=== PATIENT | female | born 1940 | race Caucasian/White ===

== ENCOUNTER 2017-07-13 08:55 | Day surgery (SDC) | payer MEDICARE, OTHER, SELFPAY ==
[2017-07-10 15:10] VITALS: BMI 28.8
[2017-07-13] VITALS (7 sets, daily range): BP systolic 102–141; BP diastolic 44–67; PULSE 57–69; RESP 16–18; TEMP 36.6–36.9; O2SAT 95–98; BMI 28.8
--- NOTE | 2017-07-13 10:25 | HMH.ANESCL ---
[facility] Anesthesia Checklist - Patient Identification Patient Identification: Arm Band, Verbal (Name & ) - Structural Data Admitted From: Home Planned Operative Procedure/s: endo Consent for Planned Operative Procedure(s) Verified: Yes Verified Documents: Surgical Consent - NPO Status Verified Time NPO: 00:00 - Additional verifications Patient : No Anesthesia Reactions: No Hx Blood Transfusions: No Blood Transfusion Reaction: No Cephalosporin Allergy: No Previous Colonoscopy: No - Cardiovascular Assessment Heart Sounds: S1 & S2 Pulse Strength: Baseline Pulse Rhythm: Regular Peripheral Edema: No - Airway Assessment C-Spine Mobility Assessed: Yes TMJ Mobility Assessed: Yes Dentition: Good Dentition - Neurological Assessment Level of Consciousness: Awake, Alert, Appropriate Hx Seizures: No Numbness or tingling in extremities: No - Anesthesia Plan Anesthesia Risk discussed: Yes Anesthesia Plan: Verified ASA Class: III Anesthesia Type: MAC [facility] Anesthesia HX I have reviewed the patient's past medical history: Yes Medical History: Reports:: Atrial Fibrillation, Hyperlipidemia, Hypertension, Lung Disease (cpap at night), Palpitations Denies:: Diabetes Mellitus Type 1, Diabetes Mellitus Type 2, Internal Pacemaker, Seizures Other Surgeries: Yes: Cardiac Surgery, Hysterectomy-Total, Plastic Surgery. No: Pacemaker Amputation: No Fractures: No *Family Hx:: Unable to obtain
--- NOTE | 2017-07-13 10:34 | P.PCN_ITS ---
[facility] Procedure Note Procedure Note:: Colonoscopy Procedure Report: Colonoscopy with cold snare polypectomy Endoscopist: Cody Quiroz II, MD Referring physician: Ferny Gentile MD Date of Procedure: June 12, 2017 Equipment: Olympus 180 variable stiffness pediatric colonoscope Sedation: MAC sedation Indication: Mrs. Skaggs is a 77-year-old female who is here for follow-up screening/surveillance colonoscopy. The patient's mother had colon cancer in her early 80s. The patient also has heterozygous hemochromatosis (H63D single mutation). The patient did have a colonoscopy and July 2007 at which time 2 polyps (tubulovillous adenoma ?1/tubular adenoma ?1) were removed. Her colonoscopy in April 2011 revealed 2 polyps (tubular adenoma ?1/hyperplastic polyp ?1) which were removed. Her last colonoscopy in March 2013 revealed a single diminutive ascending polyp (tubular adenoma ?1) which was removed. The patient does have some chronic constipation and has been on MiraLAX plus psyllium/Konsyl daily. She also takes a probiotic. She does get some intermittent bloating, abdominal discomfort and diarrhea. She reports no rectal bleeding or weight loss. Procedure: Prior to the procedure, a history and physical exam was performed, and patient' s medications and allergies were reviewed. The risks, benefits and alternatives of the sedation and procedure were discussed with the patient. All questions were answered and informed consent was obtained. The patient was brought to the procedure room. Patient identification and proposed procedure were verified by the physician and the nurse. The patient was placed in a left lateral decubitus position and the scope was passed under direct vision. Throughout the procedure, the patient's blood pressure, pulse, and oxygen saturations were monitored continuously. The colonoscopy was accomplished without difficulty. The patient tolerated the procedure well. Findings: On digital rectal examination there was normal rectal tone. There were no external hemorrhoids. The colonoscope was introduced through the anal canal to the rectum and advanced to the cecum. The ileocecal valve and appendiceal orifice were identified. The scope was advanced a short distance into the ileum which appeared grossly normal. The scope was then withdrawn into the colon. There were 7 colon polyps identified in the cecal ?3 (3-6 mm), ascending ?2 (4 and 8 mm), descending ?1 (18 mm polyp) and rectum ?1 (9-10 mm polyp). These ranged in size from 3-18 mm and were all removed via cold snare polypectomy. There were scattered diverticuli throughout the descending and sigmoid colon (LEFT colon). The rectum itself was normal. Upon retroflexion within the rectum there were grade 1 internal hemorrhoids. Impression: 1. Colonic polyps ?7 2. Left-sided diverticulosis 3. Grade 1 internal hemorrhoids Plan: I will follow-up the polyp histology. I would certainly consider a lower surveillance interval of 1-3 years based upon the polyp histology, number of polyps and size of polyps as well as her family history. I will recommend fiber bowel regimen continuation (MiraLAX plus Konsyl daily to twice daily) on a long-term daily maintenance basis.
--- NOTE | 2017-07-13 13:04 | HMH.ANESCL ---
[facility] Anesthesia Checklist - Structural Data Planned Operative Procedure/s: colonoscopy Consent for Planned Operative Procedure(s) Verified: Yes - Anesthesia Plan Anesthesia Risk discussed: Yes Anesthesia Plan: Verified ASA Class: II Anesthesia Type: MAC [facility] Anesthesia HX I have reviewed the patient's past medical history: Yes Medical History: Reports:: Atrial Fibrillation, Hyperlipidemia, Hypertension, Lung Disease (cpap at night), Palpitations Denies:: Diabetes Mellitus Type 1, Diabetes Mellitus Type 2, Internal Pacemaker, Seizures Other Medical History: Denies: Blood Transfusion Reaction Other Surgeries: Yes: Cardiac Surgery, Hysterectomy-Total, Plastic Surgery. No: Pacemaker Amputation: No Fractures: No *Family Hx:: Unable to obtain
== END 2017-07-13 11:20 | disposition home or self-care (01) ==
LOC: OUTP 08:57
PROVIDERS: Family Provider Internal Medicine; PCP Internal Medicine; Visit Provider Internal Medicine Gastroenterology
PROC: 0DJD8ZZ Inspection of Lower Intestinal Tract, Via Natural or Artificial Opening Endoscopic (ICD-10-PCS; CPT 45378; principal; 2017-07-13 10:00)
DX: Z12.11 Encounter for screening for malignant neoplasm of colon (principal); K63.5 Polyp of colon; K57.30 Diverticulosis of large intestine without perforation or abscess without bleeding; K64.0 First degree hemorrhoids
CPT/HCPCS: 45380; 88305

== ENCOUNTER 2017-11-11 13:30 | Outpatient (RCR) | payer MEDICARE, OTHER, SELFPAY | END 2017-11-11 13:31 | disposition home or self-care (01) | LOC: PT 13:30 | PROVIDERS: Family Provider Internal Medicine; PCP Internal Medicine; Visit Provider Orthopaedic Surgery | DX: Z96.651 Presence of right artificial knee joint (principal) | CPT/HCPCS: 97010; 97014; 97033; 97035; 97110; 97163; G0283 ==

== ENCOUNTER → 2017-11-17 09:59 | Outpatient (CLI) | payer MEDICARE, OTHER, SELFPAY ==
--- NOTE | 2017-11-17 10:02 | XR_ITS ---
XR chest 2V HISTORY: ITS.REASON: HTN, AFIB ORDERING PHYSICIAN: Ferny Gentile PATIENT AGE: 77 years COMPARISON: PA and lateral chest 10/08/2016 FINDINGS: The lung malcolm are well expanded and appear clear of infiltrate. There are old healed rib fractures on the right side. There is mild generalized cardio megaly without failure. There is a hazy opacity in left perihilar region and left lower lung field and there are surgical clips in left axilla and I suspect there has been previous left mastectomy with reconstruction of the left breast. There is a mild compression fracture lower thoracic spine with approximately 40% loss of height and this is a new finding not having been seen on the previous chest film. There are stable mild compression of an upper thoracic vertebrae. IMPRESSION: No acute chest pathology noted, new mild compression fracture lower thoracic spine and suggest consideration of a follow-up bone scan as metastatic disease is a consideration.
== END ==
PROVIDERS: PCP Internal Medicine; Visit Provider Internal Medicine
DX: Z01.810 Encounter for preprocedural cardiovascular examination (principal); I10 Essential (primary) hypertension; I48.0 Paroxysmal 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
CPT/HCPCS: 71046; 93005

== ENCOUNTER → 2018-03-04 15:28 | Outpatient (CLI) | payer MEDICARE, OTHER, SELFPAY | PROVIDERS: PCP Internal Medicine; Visit Provider Internal Medicine Clinical Cardiac Electrophysiology | DX: I49.3 Ventricular premature depolarization (principal) | CPT/HCPCS: 93005 ==

== ENCOUNTER → 2018-03-16 12:58 | Outpatient (POV) | payer MEDICARE, OTHER, SELFPAY | PROVIDERS: Visit Provider Dermatology | DX: Z00.00 Encounter for general adult medical examination without abnormal findings (principal) ==

== ENCOUNTER → 2018-07-20 16:53 | Outpatient (CLI) | payer MEDICARE, OTHER, SELFPAY | PROVIDERS: Visit Provider Podiatrist | DX: L60.8 Other nail disorders (principal) | CPT/HCPCS: 87102; 87206; 87220 ==

== ENCOUNTER → 2018-08-10 12:50 | Outpatient (CLI) | payer MEDICARE, OTHER, SELFPAY ==
--- NOTE | 2018-08-10 12:56 | US_ITS ---
US Kidney CLINICAL INDICATION: History of right renal cyst on previous CT scan which is unavailable for review performed at an outside institution ITS.REASON: RENAL CYST ORDERING PHYSICIAN: Chuy Jama MD PATIENT AGE: 78 years Comparison: None FINDINGS: The right kidney is not by 4 x 6 cm. No hydronephrosis. No cortical thinning. There is a 7 mm, a 9 mm and another 7 mm cyst in the upper pole the right kidney. No solid lesions evident The left kidney is 11 x 4.5 x 5.3 cm. No hydronephrosis. IMPRESSION: Small right renal cysts otherwise negative bilateral renal ultrasound
== END ==
PROVIDERS: PCP Internal Medicine; Visit Provider Urology
DX: N28.1 Cyst of kidney, acquired (principal)
CPT/HCPCS: 76770

== ENCOUNTER → 2018-08-13 10:35 | Outpatient (CLI) | payer MEDICARE, OTHER, SELFPAY ==
--- NOTE | 2018-08-13 10:38 | US_ITS ---
US Arterial Ankle Brachial Ind History: ITS.REASON: skin changes, claudication ORDERING PHYSICIAN: Livier Griffin DPM PATIENT AGE: 78 years TECHNIQUE: Segmental pressures obtained of both right and left leg. These are compared to brachial blood pressure to yield index at each level sampled including summary BEVERLEY. The data sheets from the procedure are available in PACS FINDINGS Rest study only performed today No prior studies available for comparison. Blood pressures reported are in millimeters mercury. RIGHT LEG BEVERLEY = 1.24. RIGHT LEG TBI=0.79 Brachial BP: 153 Thigh BP: 167 Calf BP: 204 Ankle PT: 190 Ankle DP : 191 Digit =121 LEFT LEG BEVERLEY = 1.21 LEFT LEG TBI= 1.03 Brachial BPD: Not performed due to prior mastectomy Thigh BP: 191 Calf BP: 185 Ankle PT:185 Ankle DP: 170 Digit = 157 Pulses and waveforms: Normal IMPRESSION: The ABIs as reported above are within normal limits. Waveforms and pulses are also unremarkable.
== END ==
PROVIDERS: PCP Internal Medicine; Visit Provider Podiatrist
DX: R09.89 Other specified symptoms and signs involving the circulatory and respiratory systems (principal)
CPT/HCPCS: 93922

== ENCOUNTER → 2019-02-01 10:51 | Outpatient (POV) | payer MEDICARE, OTHER, SELFPAY | PROVIDERS: Visit Provider Otolaryngology | DX: Z00.00 Encounter for general adult medical examination without abnormal findings (principal) ==

== ENCOUNTER 2019-03-17 09:30 | Outpatient (RCR) | payer MEDICARE, OTHER, SELFPAY | END 2019-03-17 09:35 | disposition home or self-care (01) | LOC: PT 09:30 | PROVIDERS: Visit Provider Orthopaedic Surgery | DX: M25.552 Pain in left hip (principal); Z96.642 Presence of left artificial hip joint | CPT/HCPCS: 97110; 97163; 97164 ==

== ENCOUNTER → 2019-10-18 11:13 | Outpatient (CLI) | payer MEDICARE, OTHER, SELFPAY ==
--- NOTE | 2019-10-18 11:20 | XR_ITS ---
PROCEDURE: XR MULTIPLE SPINE 6+V CLINICAL INDICATION: S/P FALL 10/14 NECK/LOW BACK PAIN Pain following COMPARISON: LSWO CT LUMBAR SPINE W/O CONTRAST from 04/06/2017 CXR2V XR chest 2V from 11/17/2017 FINDINGS: Cervical spine five views: Degenerative disc disease C2-C3 C3-C4 C4-C5 C5-C6 and C6-C7. Facet hypertrophic changes from C3 to see 7. Foraminal narrowing is present on the right at C5-C6 and on the left at C5-C6. No acute fracture or dislocation is evident. Osteoarthritic changes are present involving the C1-C2 lateral masses greater on the left. Lumbar spine: Five views prior posterior fusion with inter pedicular screws at L4 and L5. There is 1 cm anterolisthesis of L4. There is 40 percent anterior wedging of T11 which was present on prior lateral chest radiograph of 11/17/2017.. There is mild wedging of T12 with loss of height anteriorly of 10 percent which may be acute not readily apparent on previous CT scan of 04/06/2017. Degenerative disc disease is present from L1-S1. No acute lumbar fracture is apparent. There are degenerative changes of the SI joints. Left hip prosthesis is present. There is degenerative disc disease IMPRESSION: 1. Cervical spondylosis with no obvious cervical fracture. 2. Lumbar spondylosis with postsurgical change with chronic wedging of T11 3. Mild wedging of T12 not readily apparent previously Dictated by: Dannie Verma MD 10/18/2019 12:31 Electronically signed by Dannie Verma MD in [place] 10/18/2019 12:31
--- NOTE | 2019-10-18 11:29 | XR_ITS ---
PROCEDURE: XR PELVIS 1-2V CLINICAL INDICATION: S/P FALL 10/15/2019 Posttraumatic pain COMPARISON: [id number] HIP LT 2-3V W/PELVIS IF PERFOR from 03/05/2016 TECHNIQUE: XR Pelvis AP View FINDINGS: No acute fracture or dislocation. There are mild osteoarthritic changes of the right hip. There is a left hip hemiarthroplasty with the hip component in good position. The distal stem is not imaged on the exam. There is some heterotopic ossification in the greater trochanteric region. IMPRESSION: No acute findings. Dictated by: Dannie Verma MD 10/18/2019 12:32 Electronically signed by Dannie Verma MD in [place] 10/18/2019 12:32
== END ==
PROVIDERS: PCP Internal Medicine; Visit Provider Internal Medicine
DX: M54.2 Cervicalgia (principal); M54.5 Low back pain
CPT/HCPCS: 72084; 72170

== ENCOUNTER → 2020-01-18 13:46 | Outpatient (CLI) | payer MEDICARE, OTHER, SELFPAY ==
--- NOTE | 2020-01-18 13:55 | US_ITS ---
PROCEDURE: US KIDNEY CLINICAL INDICATION: R RENAL CYSTS Follow-up renal cyst COMPARISON: CT CHW CT CHEST W/ CONTRAST from 07/30/2016 US KIDNEY US Kidney from 08/10/2018 FINDINGS: The right kidney is 10.5 x 4 x 5 cm. Left kidney is 10.6 x 5 x 5 cm. There is mild cortical thinning on both sides. No solid mass or perinephric fluid collection. In the upper pole of the left kidney there is a small 7 mm cyst and a 5 mm cyst. IMPRESSION: 1. No hydronephrosis. 2. Small left renal cysts with bilateral cortical thinning Dictated by: Dannie Verma MD 01/19/2020 06:39 Dannie Verma MD in [place] 01/19/2020 06:39
== END ==
PROVIDERS: PCP Internal Medicine; Visit Provider Urology
DX: N28.1 Cyst of kidney, acquired (principal)
CPT/HCPCS: 76770

== ENCOUNTER 2020-02-09 20:22 | Emergency (ER) | payer MEDICARE, OTHER, SELFPAY ==
[2020-02-09 20:24] VITALS: BP 169/86; PULSE 85; RESP 16; TEMP 36.8; O2SAT 95; BMI 29.7
--- NOTE | 2020-02-09 20:47 | CT_ITS ---
PROCEDURE: CT HEAD/BRAIN WO CON CLINICAL INDICATION: head injury Head injury with headache/pain, contusion, abrasion or hematoma COMPARISON: CT HDWO CT HEAD W/O CONTRAST from 04/06/2017 TECHNIQUE: Axial images obtained. All CT scans at the facility use one or more dose reduction, viz: automated exposure control, ma/kV adjustment per patient size (including targeted exams where dose is matched to indication, i.e. head), or iterative reconstruction technique. FINDINGS: No midline shift, mass effect, intracranial hemorrhage, hydrocephalus, or extra-axial fluid collection is evident. There is mild bifrontal atrophy. The calvarium has an unremarkable appearance. No mastoid effusion. No sinus air-fluid level. Skin bri are present at the vertex. IMPRESSION: No acute intracranial finding Dictated by: Dannie Verma MD 02/10/2020 05:28 Dannie Verma MD in [facility] 02/10/2020 05:28
--- NOTE | 2020-02-09 20:47 | CT_ITS ---
PROCEDURE: CT CERVICAL SPINE WO CON CLINICAL INDICATION: head injury Neck injury with pain, contusion/abrasion or hematoma, cervical sprain/strain the COMPARISON: CR XR MULTIPLE SPINE 6+V from 10/18/2019 TECHNIQUE: Axial images obtained with sagittal and coronal reformats. All CT scans at the facility use one or more dose reduction, viz: automated exposure control, ma/kV adjustment per patient size (including targeted exams where dose is matched to indication, i.e. head), or iterative reconstruction technique. Axial spiral CT scanning performed of the cervical spine beginning at the base of the skull and continuing to the upper T-spine. 3-D multiplanar reconstruction with 3-D manipulation of volumetric data set in image rendering was completed by the radiologist and/or technologist with the supervision of the radiologist on independent workstation. FINDINGS: There is normal alignment. No acute fracture or dislocation is evident. Hypertrophic changes are present anteriorly on the left at the C1-C2 facet junction. Subchondral cystic changes are present involving the base of the odontoid on the left. The there is multilevel degenerative disc disease from C2-C7. C2-C3: Degenerative disc disease. C3-C4: 3 mm anterolisthesis of C3 with endplate hypertrophy and right-sided facet hypertrophy with mild right lateral recess and foraminal narrowing. C4-C5: 2 mm retrolisthesis of C4 with degenerative disc disease. C5-C6: Degenerate disc disease with endplate hypertrophy facet and uncovertebral hypertrophy with canal stenosis of 9 mm with bilateral foraminal narrowing. C6-C7. Endplate hypertrophic change. Mild left-sided uncovertebral and foraminal narrowing. No acute finding in the lung apices. IMPRESSION: 1. No acute fracture. 2. Multilevel cervical spondylosis with canal stenosis as detailed above. 3. Chronic hypertrophic change involving the C1-C2 junction anteriorly on the left Dictated by: Dannie Verma MD 02/10/2020 05:37 Dannie Verma MD in [place] 02/10/2020 05:37
--- NOTE | 2020-02-09 21:06 | HMH.EDFALL ---
ED Disposition Clinical Impression: Concussion with loss of consciousness Qualifiers: Encounter type: initial encounter Qualified Code(s): S06.0X9A - Concussion with loss of consciousness of unspecified duration, initial encounter Scalp laceration Qualifiers: Encounter type: initial encounter Qualified Code(s): S01.01XA - Laceration without foreign body of scalp, initial encounter Disposition: Home, Self-Care Condition on Discharge: Good Instructions: DI for Concussion Additional Instructions: bri out 10 days Referrals: Ferny Gentile [Primary Care Provider] - - Critical Care Critical Care Time: No Attestation: On 02/09/20, the high probability of a clinically significant, sudden or life threatening deterioration of the following system(s) required my full and direct attention, intervention and personal management. The time I documented below is in addition to time spent performing reported procedures but includes the following listed in this critical care notation. Medical Decision Making - Medical Records Medical records reviewed: Yes: I reviewed the patient's medical records. - Torsten Inquiry Pt receiving controlled substance: No Vital Signs: 02/09/20 20:24 Temperature 98.3 F Temperature Source Oral Pulse Rate [Left Radial] 85 Respiratory Rate 16 Blood Pressure [Right Arm] 169/86 H Blood Pressure Mean [Right Arm] 113 Blood Pressure Source [Right Arm] Automatic Cuff Blood Pressure Position [Right Arm] Sitting 02 Sat by Pulse Oximetry 95 Oxygen Delivery Method Room Air Orders (Tests/Meds): ED MEDICATIONS Discontinued Medications Generic Name Dose Route Start Last Admin Trade Name Freq PRN Reason Stop Dose Admin Tetanus/Diphtheria Toxoids 0.5 ml 02/09/20 21:07 02/09/20 21:37 Tetanus-Diphth Toxoid, Adult 0.5ml Syr IM 02/09/20 21:08 Not Given .ONCE ONE ORDERS Category Date Time Status CT cervical spine wo con Stat Cat Scan 02/09/20 20:[address] head/brain wo con Stat Cat Scan 02/09/20 20:47 Taken - CT Data CT Scan: Head, C-Spine Time Received: 21:[address] Reviewed: Yes: I have viewed the radiologist's interpretation Preliminary Findings: No Fracture Seen Fall HPI - General Chief Complaint: Head Injury Stated Complaint: AO 1008 20:00 fell hit head Lac Time Seen by Provider: 02/09/20 20:35 Mode of Arrival: Ambulatory Source of Information: Patient, Relative, Medical Record Limitations: No Limitations Description of Symptoms (Recalled from ER Triage Doc. by RN): pt stated she was walking in her bedroom when she lost her balance and fell and believes the lamp fell on her head. pt has a LAC to the top of her head. pt sated shes on warfarin. pt denies any LOC or change in mental status. - History of Present Illness HPI Narrative: trip type fall with scalp lac - no loc and no focal changes neuro - pt on coumadin - inr 2.6 today complaint: fall Onset (ago): hour(s) Fall from: walking Fall witnessed: no Place fall occurred: home Loss of consciousness: none Prolonged down time: no Context: tripped/slipped Location of injury: head, neck Severity: moderate Associated symptoms (after fall): denies - Related Data Home Medications Medication Instructions Recorded Confirmed Cetirizine HCl [Zyrtec] 10 mg PO DAILY 07/10/17 01/13/20 Citalopram Hydrobromide [Celexa 10 mg PO DAILY 07/10/17 01/13/20 10mg Tablet] Ezetimibe [Zetia] 10 mg PO DAILY 07/10/17 01/13/20 Flecainide Acetate 100 mg PO DAILY 07/10/17 01/13/20 Glucosam/Milad-Msm1/C/Mehran/Bosw 1 each PO DAILY 07/10/17 01/13/20 [Osteo Bi-Flex Caplet] Ipratropium [place] [Ipratropium 1 spray NS DAILY 07/10/17 01/13/20 [place] 0.042mg/act NS] Lactobacillus Acidophilus 1 each PO DAILY 07/10/17 01/13/20 [Probiotic] Magnesium 200 mg PO DAILY 07/10/17 01/13/20 Metoprolol Succinate 25 mg PO DAILY 07/10/17 01/13/20 Omeprazole [Omeprazole 20mg Tab] 20 mg PO DAILY 07/10/17 01/13/20 Warfarin Sodium 5
[2020-02-09 21:54] VITALS: BP 163/84; PULSE 74; RESP 18; O2SAT 98
[2020-02-09 22:17] VITALS: BP 182/96; PULSE 79; RESP 16; TEMP 36.7; O2SAT 98
== END 2020-02-09 22:20 | disposition home or self-care (01) ==
PROVIDERS: Emergency Provider Emergency Medicine; PCP Internal Medicine
DX: S01.01XA Laceration without foreign body of scalp, initial encounter (principal); S06.0X9A Concussion with loss of consciousness of unspecified duration, initial encounter; W01.198A Fall on same level from slipping, tripping and stumbling with subsequent striking against other object, initial encounter; Y92.013 Bedroom of single-family (private) house as the place of occurrence of the external cause; I48.20 Chronic 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, unspecified; I10 Essential (primary) hypertension; E78.5 Hyperlipidemia, unspecified; Z95.0 Presence of cardiac pacemaker; Z23 Encounter for immunization; Z79.899 Other long term (current) drug therapy; Z88.2 Allergy status to sulfonamides; Z88.5 Allergy status to narcotic agent; Z88.8 Allergy status to other drugs, medicaments and biological substances
CPT/HCPCS: 12001; 70450; 72125; 90714; 99283

== ENCOUNTER → 2020-10-03 16:55 | Outpatient (CLI) | payer MEDICARE, OTHER, SELFPAY ==
--- NOTE | 2020-10-03 17:00 | XR_ITS ---
PROCEDURE: XR CHEST 2V CLINICAL HISTORY: Chest pain COMPARISON: CR CXR2 CHEST-AP VIEW ONLY from 07/23/[address] CHEST W/ CONTRAST from 07/30/2016 CR CXR CHEST(2 VIEWS-NOT PORTABLE) from 10/08/2016 CR CXR2V XR chest 2V from 11/17/2017 FINDINGS: Mild cardiomegaly without failure. 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 There are multiple old right-sided rib fractures with pleural thickening along the right lower hemithorax laterally. There has been prior kyphoplasty at T12 with wedge compression changes. Wedge compression changes are also present at T11 and T6 which appear stable. No lobar consolidation or collapse. Atelectatic changes are present in the right middle lobe which appear new. No evidence of pneumothorax. Surgical clips are present in the left axilla. IMPRESSION: Chronic right-sided rib fractures with pleural parenchymal changes in the right lower lobe which are chronic. There are some atelectatic changes in the right middle lobe which appear new. Dictated by: Dannie Verma MD 10/03/2020 18:14 Dannie Verma MD in [place] 10/03/2020 18:14
== END ==
PROVIDERS: PCP Internal Medicine; Visit Provider Internal Medicine
DX: R07.9 Chest pain, unspecified (principal); W19.XXXA Unspecified fall, initial encounter
CPT/HCPCS: 71046

== ENCOUNTER → 2020-11-13 11:25 | Outpatient (POV) | payer MEDICARE, OTHER, SELFPAY | PROVIDERS: Visit Provider Dermatology | DX: Z00.00 Encounter for general adult medical examination without abnormal findings (principal) ==

== ENCOUNTER 2021-01-29 13:50 | Outpatient (RCR) | payer MEDICARE, OTHER, SELFPAY ==
--- NOTE | 2021-01-29 14:55 | HMH.SLDYSPHA ---
Speech & Language Evaluation Speech/Language Dysphagia Evaluation Start: 01/29/21 14:46 Freq: ONCE Status: Active Protocol: Document 01/29/21 14:46 SONYA (Rec: 01/29/21 14:55 SONYA [id number]) Dysphagia Assess/Goals/Plan Assessment Date of Evaluation: 01/29/21 Evaluation Type Initial Certification Assessment/Problems Dysphagia Does Patient Qualify for Service No Qualify/Failure Comment Patient showed no signs of dysphagia, however she would qualify for voice therapy once cleared of pathologies from ENT. Recommendations PHYSICIAN CERTIFICATION: The specified therapy services are required, authorized, and reviewed every 30 days. Diet Recommendations Normal Liquid Type Recommendations Normal/Thin SL Swallow Guidelines Standard Aspiration Prec. Dysphagia Swallow Precautions/Strategies Sitting Upright (90 deg),Small Bites and Sips,Alternate Liquids/Solids Plan Pt/Guardian verbally ack understanding Yes of dx/prognosis/goals G -code Required No General Information General Current Food Consistancy Regular,Thin Liquids Dentition Good Dentition Oxygen Status Room Air Facial Symmetry Symmetrical Patient Orientation Person,Place,Time,Situation Ability to Follow Directions Excellent Communication Ability No Impairment Voice Voice Quality Breathy,Weak,Loss of Voice Voice Pitch Mildly High Voice Loudness Moderately Soft/Quiet Dysphagia:Food Presentation Evaluation Food Type Pureed,Mechanical Soft,Regular ,Liquid,Pudding Dysphagia Evaluation Summary Ms. Skaggs reports that she has difficulty with coughing throughout her day. It is not associated with eating she reports. She was given the following consistencies: thins via straw and open cup, pudding, pureed, mechanical soft, and regular. No overt signs or symptoms of dysphagia were noted. She would benefit from a laryngoscopy to rule out pathologies related to her cough and to her overall vocal quality. She may benefit from speech services for voice therapy pending
== END 2021-01-29 13:55 | disposition home or self-care (01) ==
LOC: ST 13:50
PROVIDERS: PCP Internal Medicine; Visit Provider Otolaryngology
DX: R13.10 Dysphagia, unspecified (principal)
CPT/HCPCS: 92610

== ENCOUNTER → 2021-01-31 09:11 | Outpatient (CLI) | payer MEDICARE, OTHER, SELFPAY ==
--- NOTE | 2021-01-31 09:14 | US_ITS ---
PROCEDURE: US THYROID CLINICAL INDICATION: PAIN IN THROAT COMPARISON: No exams were available for comparison FINDINGS: Right lobe: 3.7 x 1.2 x 1.8 cm. 3 mm hypoechoic nodule lower pole well-circumscribed. 9 mm spongiform appearing nodule lower pole well-circumscribed. Left lobe: 4.2 x 1.2 x 1.6 cm. 9 mm isoechoic nodule with decreased echogenicity peripherally present in the mid polar region well-circumscribed. 6 mm spongiform nodule mid polar region. 7 mm hypoechoic solid appearing nodule lower pole well-circumscribed wider than tall. 4 mm hypoechoic nodule lower pole. Isthmus: Unremarkable Additional findings: IMPRESSION: Bilateral thyroid nodules most of which are TR level 2. 7 mm hypoechoic nodule lower pole on the left TR level 3. Twelve month follow-up recommended. Dictated by: Dannie Verma MD 01/31/2021 14:31 Dannie Verma MD in [place] 01/31/2021 14:31
== END ==
PROVIDERS: PCP Internal Medicine; Visit Provider Otolaryngology
DX: R07.0 Pain in throat (principal)
CPT/HCPCS: 76536

== ENCOUNTER → 2021-02-13 14:09 | Outpatient (CLI) | payer MEDICARE, OTHER, SELFPAY ==
[2021-02-13 14:35] LABS: Basophils # 0.1 K/mm3 (0-0.2); Basophils % 0.7 % (0.1-2.0); Eosinophils # 0.1 K/mm3 (0.0-0.4); Eosinophils % 1.2 % (0.1-12.0); Hematocrit 41.2 % (37.0-47.0); Hemoglobin 13.4 g/dL (12.2-16.2); Lymphocytes # 1.6 K/mm3 (0.7-4.5); Lymphocytes % 23.2 % (10-50); Mean Corpuscular HGB Conc 32.4 g/dL (31.8-35.4); Mean Corpuscular Volume 95.7 fl (81-99); Mean Platelet Volume 8.7 fl (7.4-10.4); Monocytes # 1.4 K/mm3 (0.1-1.0); Monocytes % 20.5 % (1.7-9.3); Neutrophils # 3.7 K/mm3 (1.8-7.8); Neutrophils % 54.4 % (37.0-80.0); Platelet Count 264 K/mm3 (142-424); Red Blood Count 4.31 M/mm3 (4.20-5.40); Red Cell Distribution Width 13.5 % (11.5-17.5); White Blood Count 6.9 K/mm3 (4.8-10.8)
[2021-02-13 15:20] LABS: MANUAL DIFFERENTIAL MANUAL DIFFERENTIAL (MANUAL DIFF)
[2021-02-13 19:35] LABS: Alanine Aminotransferase 18 U/L (12-78); Albumin Level 3.8 g/dl (3.5-5.0); Albumin/Globulin Ratio 1.5 (1.1-1.8); Alkaline Phosphatase 81 U/L (38-126); Anion Gap 14.3 mEq/L (5-15); Aspartate Amino Transferase 26 U/L (14-36); Bilirubin,Total 0.3 mg/dl (0.2-1.3); Blood Urea Nitrogen 14 mg/dl (7-17); Calcium 9.2 mg/dl (8.4-10.2); Carbon Dioxide 23 mmol/L (22.0-30.0); Chloride 107 mmol/L (98-107); Chol/HDL Ratio 5.4 (1-3.5); Cholesterol 215 mg/dl (140-200); Estimated Glomerular Filt Rate 69 ml/min (>60); GFR (African American) 84 ML/MIN (>60); Globulin 2.6 g/dL (1.3-3.2); Glucose 89 mg/dl (74-100); HDL Cholesterol 40 mg/dl (40-60); Potassium 4.3 mmoL/L (3.5-5.1); Sodium 140 mmol/L (136-145); Total Protein,Serum 6.4 g/dl (6.3-8.2); Triglycerides 268 mg/dl (30-150); VLDL Cholesterol 54 mg/dL (0-40)
[2021-02-13 19:46] LABS: Direct LDL Cholesterol 123.16 mg/dL (100-129)
[2021-02-13 22:14] LABS: Lymphocytes % 11 % (10-50); Monocytes % 10 % (2-9); Neutrophils % 79 % (42-76); Total Cells Counted 100
[2021-02-13 22:15] LABS: Anisocytosis 1+; Hypochromasia 1+; Platelet Estimate Normal
== END ==
PROVIDERS: Visit Provider Internal Medicine
DX: I10 Essential (primary) hypertension (principal); I49.3 Ventricular premature depolarization; I48.0 Paroxysmal 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; E78.5 Hyperlipidemia, unspecified; M15.0 Primary generalized (osteo)arthritis
CPT/HCPCS: 80053; 80061; 80162; 85007; 85025

== ENCOUNTER → 2021-05-31 12:22 | Outpatient (CLI) | payer MEDICARE, OTHER, SELFPAY ==
[2021-06-01 15:29] LABS: Covid-19 Nasal PCR Sendout Lex NOT DETECTED
== END ==
PROVIDERS: Visit Provider Nurse Practitioner
DX: Z20.822 Contact with and (suspected) exposure to COVID-19 (principal)
CPT/HCPCS: C9803; U0004; U0005

== ENCOUNTER → 2021-08-14 13:48 | Outpatient (CLI) | payer MEDICARE, OTHER, SELFPAY ==
[2021-08-14 14:16] LABS: Basophils # 0.2 K/mm3 (0-0.2); Basophils % 2.3 % (0.1-2.0); Eosinophils # 0.1 K/mm3 (0.0-0.4); Eosinophils % 1.7 % (0.1-12.0); Hematocrit 43.1 % (37.0-47.0); Hemoglobin 14.3 g/dL (12.2-16.2); Lymphocytes # 1.5 K/mm3 (0.7-4.5); Lymphocytes % 22.1 % (10-50); Mean Corpuscular HGB Conc 33.2 g/dL (31.8-35.4); Mean Corpuscular Hemoglobin 31.7 pg (27.0-31.2); Mean Corpuscular Volume 95.5 fl (81-99); Mean Platelet Volume 9.7 fl (7.4-10.4); Monocytes # 1.7 K/mm3 (0.1-1.0); Monocytes % 24.4 % (1.7-9.3); Neutrophils # 3.5 K/mm3 (1.8-7.8); Neutrophils % 49.5 % (37.0-80.0); Platelet Count 270 K/mm3 (142-424); Red Blood Count 4.51 M/mm3 (4.20-5.40); Red Cell Distribution Width 13.6 % (11.5-17.5)
[2021-08-14 14:19] LABS: MANUAL DIFFERENTIAL MANUAL DIFFERENTIAL (MANUAL DIFF)
[2021-08-14 14:33] LABS: Alanine Aminotransferase 25 U/L (12-78); Albumin Level 4.1 g/dl (3.5-5.0); Albumin/Globulin Ratio 1.8 (1.1-1.8); Alkaline Phosphatase 76 U/L (38-126); Anion Gap 13.2 mEq/L (5-15); Aspartate Amino Transferase 27 U/L (14-36); Bilirubin,Total 0.6 mg/dl (0.2-1.3); Blood Urea Nitrogen 15 mg/dl (7-17); Calcium 8.9 mg/dl (8.4-10.2); Carbon Dioxide 24 mmol/L (22.0-30.0); Chloride 105 mmol/L (98-107); Chol/HDL Ratio 6.6 (1-3.5); Cholesterol 237 mg/dl (140-200); Estimated Glomerular Filt Rate 53 ml/min (>60); GFR (African American) 65 ML/MIN (>60); Globulin 2.3 g/dL (1.3-3.2); Glucose 92 mg/dl (74-100); HDL Cholesterol 36 mg/dl (40-60); Potassium 4.2 mmoL/L (3.5-5.1); Sodium 138 mmol/L (136-145); Total Protein,Serum 6.4 g/dl (6.3-8.2); Triglycerides 301 mg/dl (30-150); VLDL Cholesterol 60 mg/dL (0-40)
[2021-08-14 15:13] LABS: Lymphocytes % 31 % (10-50); Monocytes % 25 % (2-9); Neutrophils % 44 % (42-76); Platelet Estimate Normal; RBC Morphology Normal; Total Cells Counted 100
== END ==
PROVIDERS: PCP Internal Medicine; Visit Provider Internal Medicine
DX: I48.0 Paroxysmal 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 (principal); I49.1 Atrial premature depolarization; I10 Essential (primary) hypertension; E78.5 Hyperlipidemia, unspecified
CPT/HCPCS: 80053; 80061; 85007; 85025

== ENCOUNTER → 2021-10-10 11:45 | Outpatient (CLI) | payer MEDICARE, OTHER, SELFPAY ==
--- NOTE | 2021-10-10 11:58 | ECG_ITS ---
APPROVED REPORT Exam: Resting ECG HR:72 bpm ECG Measurements Heart Rate 72 AXES IL 247 P 46 QRSd 158 QRS -35 QT 423 T 85 QTc 447 Conclusion SINUS RHYTHM WITH FIRST DEGREE AV BLOCK POSSIBLE LEFT ATRIAL ENLARGEMENT [-0.1mV P-WAVE IN V1/V2] LEFT AXIS DEVIATION [QRS AXIS < -30] LEFT BUNDLE BRANCH BLOCK [120+ ms QRS DURATION, 80+ ms Q/S IN V1/V2, 85+ ms R IN I/aVL/V5/V6] ABNORMAL ECG INTERPRETATION BASED ON A DEFAULT AGE OF 40 YEARS UNCONFIRMED REPORT Electronically signed by : Savage Phillips MD 10/10/2021 21:17:03
== END ==
PROVIDERS: PCP Internal Medicine; Visit Provider Internal Medicine Clinical Cardiac Electrophysiology
DX: I48.0 Paroxysmal 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 (principal)
CPT/HCPCS: 93005

== ENCOUNTER → 2021-12-02 11:32 | Outpatient (CLI) | payer MEDICARE, OTHER, SELFPAY ==
[2021-12-02 12:15] LABS: Coronavirus 19, PCR Not Detected (NotDetected); Influenza A, PCR Not Detected (NotDetected); Influenza B, PCR Not Detected (NotDetected)
[2021-12-02 12:23] LABS: Basophils # 0.1 K/mm3 (0-0.2); Basophils % 1.6 % (0.1-2.0); Eosinophils # 0.1 K/mm3 (0.0-0.4); Eosinophils % 1.7 % (0.1-12.0); Hematocrit 40.1 % (37.0-47.0); Hemoglobin 13.1 g/dL (12.2-16.2); Lymphocytes # 1.5 K/mm3 (0.7-4.5); Lymphocytes % 21.4 % (10-50); Mean Corpuscular HGB Conc 32.7 g/dL (31.8-35.4); Mean Corpuscular Hemoglobin 30.7 pg (27.0-31.2); Mean Platelet Volume 7.9 fl (7.4-10.4); Monocytes # 1.7 K/mm3 (0.1-1.0); Monocytes % 23.8 % (1.7-9.3); Neutrophils # 3.6 K/mm3 (1.8-7.8); Neutrophils % 51.5 % (37.0-80.0); Platelet Count 270 K/mm3 (142-424); Red Blood Count 4.27 M/mm3 (4.20-5.40); Red Cell Distribution Width 13.3 % (11.5-17.5); White Blood Count 6.9 K/mm3 (4.8-10.8)
[2021-12-02 12:26] LABS: MANUAL DIFFERENTIAL MANUAL DIFFERENTIAL (MANUAL DIFF)
[2021-12-02 13:12] LABS: Eosinophils % 1 % (0-3); Lymphocytes % 23 % (10-50); Monocytes % 22 % (2-9); Neutrophils % 54 % (42-76); Platelet Estimate Normal; RBC Morphology Normal; Total Cells Counted 100
[2021-12-02 13:20] LABS: Alanine Aminotransferase 13 U/L (12-78); Albumin Level 3.8 g/dl (3.5-5.0); Albumin/Globulin Ratio 1.5 (1.1-1.8); Alkaline Phosphatase 99 U/L (38-126); Amylase 48 U/L (30-110); Anion Gap 12.8 mEq/L (5-15); Aspartate Amino Transferase 20 U/L (14-36); Bilirubin,Total < 0.1 mg/dl (0.2-1.3); Blood Urea Nitrogen 16 mg/dl (7-17); Calcium 9.1 mg/dl (8.4-10.2); Carbon Dioxide 25 mmol/L (22.0-30.0); Chloride 104 mmol/L (98-107); Estimated Glomerular Filt Rate 53 ml/min (>60); GFR (African American) 65 ML/MIN (>60); Globulin 2.6 g/dL (1.3-3.2); Glucose 100 mg/dl (74-100); Potassium 4.8 mmoL/L (3.5-5.1); Sodium 137 mmol/L (136-145); Total Protein,Serum 6.4 g/dl (6.3-8.2)
== END ==
PROVIDERS: PCP Internal Medicine; Visit Provider Internal Medicine
DX: Z20.822 Contact with and (suspected) exposure to COVID-19 (principal)
CPT/HCPCS: 36415; 80053; 82150; 85007; 85025; C9803; U0003; U0005

== ENCOUNTER → 2021-12-04 10:56 | Outpatient (CLI) | payer MEDICARE, OTHER, SELFPAY ==
--- NOTE | 2021-12-04 11:12 | CT_ITS ---
FINAL REPORT TECHNIQUE: Axial CT images were performed from the lung bases through the pubic symphysis. Coronal reformats were submitted and reviewed. This study was performed with techniques to keep radiation doses as low as reasonably achievable (ALARA). Individualized dose reduction techniques using automated exposure control or adjustment of mA and/or kV according to the patient's size were employed. CLINICAL HISTORY: EPIGASTRIC PAIN; FEVER FINDINGS: Abdomen: There is mild scarring in the lung bases. There is postoperative change in the left anterior chest wall. A small pericardial effusion is present. There has been cholecystectomy. The liver, spleen and pancreas are unremarkable. There are no adrenal masses. There are several small right renal masses measuring up to 12 mm a cannot be accurately characterized. There is no nephrolithiasis. There is no hydronephrosis. There is mild vascular calcification. Pelvis: Postoperative changes in the left hip cause streak artifact. There has been hysterectomy. There is descending and sigmoid colon diverticulosis. There is mild stranding adjacent to the distal sigmoid colon worrisome for mild diverticulitis. There is no abscess, bowel obstruction, or pneumoperitoneum. The urinary bladder is unremarkable. There are degenerative and postoperative changes involving the spine. There are T11 and T12 compression fractures. IMPRESSION: Findings worrisome for mild uncomplicated distal sigmoid diverticulitis. Several small right renal masses diet cannot be accurately characterized. Reviewed, Interpreted and Dictated by Shady Frank III, MD Transcribed by Sharif Grider Authenticated and [facility]
== END ==
PROVIDERS: PCP Internal Medicine; Visit Provider Internal Medicine
DX: R10.13 Epigastric pain (principal); R50.9 Fever, unspecified
CPT/HCPCS: 74176

== ENCOUNTER → 2022-02-19 13:28 | Outpatient (CLI) | payer MEDICARE, OTHER, SELFPAY ==
[2022-02-19 15:19] LABS: Alanine Aminotransferase 31 U/L (12-78); Albumin Level 3.9 g/dl (3.5-5.0); Albumin/Globulin Ratio 1.6 (1.1-1.8); Alkaline Phosphatase 101 U/L (38-126); Anion Gap 16.3 mEq/L (5-15); Aspartate Amino Transferase 31 U/L (14-36); Bilirubin,Total 0.3 mg/dl (0.2-1.3); Blood Urea Nitrogen 18 mg/dl (7-17); Calcium 8.8 mg/dl (8.4-10.2); Carbon Dioxide 25 mmol/L (22.0-30.0); Chloride 102 mmol/L (98-107); Chol/HDL Ratio 6.1 (1-3.5); Cholesterol 232 mg/dl (140-200); Estimated Glomerular Filt Rate 48 ml/min (>60); GFR (African American) 58 ML/MIN (>60); Globulin 2.4 g/dL (1.3-3.2); Glucose 83 mg/dl (74-100); HDL Cholesterol 38 mg/dl (40-60); Potassium 4.3 mmoL/L (3.5-5.1); Sodium 139 mmol/L (136-145); Total Protein,Serum 6.3 g/dl (6.3-8.2); Triglycerides 285 mg/dl (30-150); VLDL Cholesterol 57 mg/dL (0-40)
[2022-02-19 15:36] LABS: Direct LDL Cholesterol 130.56 mg/dL (100-129)
== END ==
PROVIDERS: PCP Internal Medicine; Visit Provider Internal Medicine
DX: I48.0 Paroxysmal 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 (principal); I10 Essential (primary) hypertension; E78.5 Hyperlipidemia, unspecified
CPT/HCPCS: 80053; 80061

== ENCOUNTER 2022-03-18 12:53 | Outpatient (CLI) | payer MEDICARE, OTHER, SELFPAY ==
[2022-03-18 13:15] VITALS: BP 118/64; PULSE 84; RESP 20; TEMP 36.3; O2SAT 95
[2022-03-18 13:41] VITALS: BP 120/65; PULSE 82; RESP 20; TEMP 36.7; O2SAT 95
== END 2022-03-18 13:35 | disposition home or self-care (01) ==
LOC: INF 12:54
PROVIDERS: PCP Internal Medicine; Visit Provider Internal Medicine
DX: E78.5 Hyperlipidemia, unspecified (principal)
CPT/HCPCS: 96372; J1306

== ENCOUNTER → 2022-03-25 14:21 | Outpatient (CLI) | payer MEDICARE, OTHER, SELFPAY ==
--- NOTE | 2022-03-25 14:26 | XR_ITS ---
FINAL REPORT CLINICAL HISTORY: PAIN, SWELLING FINDINGS: 3 views of the right wrist were obtained. There is no acute fracture or dislocation. There are mild and moderate degenerative changes greatest at the 1st CMC and triscaphe joints. There are soft tissue calcifications including in the region of the triangular fibrocartilage. IMPRESSION: Mild and moderate degenerative changes. Reviewed, Interpreted and Dictated by Shady Frank III, MD Transcribed by Sharif Grider Authenticated and [facility]
--- NOTE | 2022-03-25 14:26 | XR_ITS ---
FINAL REPORT CLINICAL HISTORY: PAIN, SWELLING FINDINGS: 3 views of the right hand were obtained. There is no acute fracture or dislocation. There are mild and moderate degenerative changes greatest at the 2nd and 3rd distal interphalangeal joints and the 3rd proximal interphalangeal joint. There is no soft tissue abnormality. IMPRESSION: Mild and moderate degenerative changes. Reviewed, Interpreted and Dictated by Shady Frank III, MD Transcribed by Sharif Grider Authenticated and [facility]
== END ==
PROVIDERS: PCP Internal Medicine; Visit Provider Internal Medicine
DX: M25.531 Pain in right wrist (principal); M79.641 Pain in right hand
CPT/HCPCS: 73110; 73130

== ENCOUNTER → 2022-05-02 10:49 | Outpatient (CLI) | payer MEDICARE, OTHER, SELFPAY ==
--- NOTE | 2022-05-02 10:57 | XR_ITS ---
FINAL REPORT CLINICAL HISTORY: COUGH,SOA COMPARISON: 10/03/2020 FINDINGS: TWO-VIEW CHEST There is cardiomegaly. Left subclavian pacer is identified. There is postoperative change in the left axilla. The mediastinum is normal. The lungs are clear. There is no pneumothorax. There are chronic right lateral rib fractures with pleural thickening, stable from prior. The patient is status post kyphoplasty in the lower thoracic spine. IMPRESSION: No acute cardiopulmonary process. Reviewed, Interpreted and Dictated by Shady Frank III, MD Transcribed by Angelica Hammonds Authenticated and [facility]
== END ==
PROVIDERS: PCP Internal Medicine; Visit Provider Internal Medicine
DX: R06.02 Shortness of breath (principal); R05.1 Acute cough
CPT/HCPCS: 71046

== ENCOUNTER → 2022-05-09 16:55 | Outpatient (CLI) | payer MEDICARE, OTHER, SELFPAY | PROVIDERS: PCP Internal Medicine; Visit Provider Internal Medicine | DX: N39.0 Urinary tract infection, site not specified (principal); B96.29 Other Escherichia coli [E. coli] as the cause of diseases classified elsewhere | CPT/HCPCS: 87086; 87088; 87186 ==

== ENCOUNTER → 2022-05-13 12:26 | Outpatient (CLI) | payer MEDICARE, OTHER, SELFPAY ==
[2022-05-13 14:14] LABS: INR 1.86 (0.9-1.1); Prothrombin Time 19.4 seconds (10.1-12.5)
[2022-05-13 14:53] LABS: Chloride 96 mmol/L (98-107); Sodium 134 mmol/L (136-145)
[2022-05-13 14:54] LABS: Potassium 4.5 mmoL/L (3.5-5.1)
[2022-05-13 14:56] LABS: Alanine Aminotransferase 16 U/L (12-78); Albumin Level 3.8 g/dl (3.5-5.0); Albumin/Globulin Ratio 1.5 (1.1-1.8); Alkaline Phosphatase 84 U/L (38-126); Anion Gap 15.5 mEq/L (5-15); Aspartate Amino Transferase 24 U/L (14-36); Bilirubin,Total 0.6 mg/dl (0.2-1.3); Blood Urea Nitrogen 20 mg/dl (7-17); Calcium 8.4 mg/dl (8.4-10.2); Carbon Dioxide 27 mmol/L (22.0-30.0); Cholesterol 125 mg/dl (140-200); Estimated Glomerular Filt Rate 60 ml/min (>60); GFR (African American) 73 ML/MIN (>60); Globulin 2.6 g/dL (1.3-3.2); Glucose 84 mg/dl (74-100); Total Protein,Serum 6.4 g/dl (6.3-8.2); Triglycerides 109 mg/dl (30-150); VLDL Cholesterol 22 mg/dL (0-40)
[2022-05-13 14:57] LABS: Chol/HDL Ratio 2.8 (1-3.5); HDL Cholesterol 45 mg/dl (40-60)
[2022-05-13 15:08] LABS: Direct LDL Cholesterol 51.51 mg/dL (100-129)
[2022-05-15 12:59] LABS: Prealbumin 25 mg/dL (9-32)
== END ==
PROVIDERS: PCP Internal Medicine; Visit Provider Internal Medicine
DX: Z01.818 Encounter for other preprocedural examination (principal); I10 Essential (primary) hypertension; I48.0 Paroxysmal 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; I49.3 Ventricular premature depolarization
CPT/HCPCS: 80053; 80061; 84134; 85610

== ENCOUNTER → 2022-05-14 11:42 | Outpatient (CLI) | payer MEDICARE, OTHER, SELFPAY ==
[2022-05-14 12:35] LABS: Basophils # 0.1 K/mm3 (0-0.2); Basophils % 0.7 % (0.1-2.0); Eosinophils # 0.1 K/mm3 (0.0-0.4); Eosinophils % 0.9 % (0.1-12.0); Hematocrit 42.2 % (37.0-47.0); Hemoglobin 13.2 g/dL (12.2-16.2); Lymphocytes # 1.6 K/mm3 (0.7-4.5); Lymphocytes % 15.2 % (10-50); Mean Corpuscular HGB Conc 31.3 g/dL (31.8-35.4); Mean Corpuscular Volume 95.8 fl (81-99); Mean Platelet Volume 7.9 fl (7.4-10.4); Monocytes # 2.6 K/mm3 (0.1-1.0); Monocytes % 24.5 % (1.7-9.3); Neutrophils # 6.1 K/mm3 (1.8-7.8); Neutrophils % 58.7 % (37.0-80.0); Platelet Count 307 K/mm3 (142-424); Red Cell Distribution Width 13.6 % (11.5-17.5); White Blood Count 10.5 K/mm3 (4.8-10.8)
[2022-05-14 12:38] LABS: MANUAL DIFFERENTIAL MANUAL DIFFERENTIAL (MANUAL DIFF)
[2022-05-14 12:56] LABS: Hemoglobin A1C 5.8 % (4.0-6.0)
[2022-05-14 14:38] LABS: Lymphocytes % 24 % (10-50); Monocytes % 16 % (2-9); Neutrophils % 60 % (42-76); Platelet Estimate Normal; Total Cells Counted 100
[2022-05-14 14:39] LABS: RBC Morphology Normal
[2022-05-16 22:11] LABS: Fructosamine 232
== END ==
PROVIDERS: PCP Internal Medicine; Visit Provider Internal Medicine
DX: R73.09 Other abnormal glucose (principal)
CPT/HCPCS: 36415; 82985; 83036; 85007; 85025

== ENCOUNTER 2022-06-25 12:54 | Outpatient (CLI) | payer MEDICARE, OTHER, SELFPAY ==
[2022-06-25 13:07] VITALS: BP 111/71; PULSE 98; RESP 18; O2SAT 99
== END 2022-06-25 13:18 | disposition home or self-care (01) ==
LOC: INF 12:56
PROVIDERS: PCP Internal Medicine; Visit Provider Internal Medicine
DX: E78.5 Hyperlipidemia, unspecified (principal)
CPT/HCPCS: 96372; J1306

== ENCOUNTER → 2022-07-11 09:59 | Outpatient (CLI) | payer MEDICARE, OTHER, SELFPAY | PROVIDERS: PCP Internal Medicine; Visit Provider Internal Medicine Pulmonary Disease | DX: R06.09 Other forms of dyspnea (principal) | CPT/HCPCS: 94060; 94618; 94726; 94729 ==

== ENCOUNTER 2022-08-08 15:00 | Outpatient (RCR) | payer MEDICARE, OTHER, SELFPAY | END 2022-08-08 15:05 | disposition home or self-care (01) | LOC: PT 15:00 | PROVIDERS: PCP Internal Medicine; Visit Provider Orthopaedic Surgery | DX: M25.562 Pain in left knee; Z96.652 Presence of left artificial knee joint | CPT/HCPCS: 97010; 97110; 97140; 97163; 97164; 97530; 97760 ==

== ENCOUNTER → 2022-08-20 12:46 | Outpatient (CLI) | payer MEDICARE, OTHER, SELFPAY ==
[2022-08-20 16:36] LABS: Basophils % 0.6 % (0.1-2.0); Eosinophils % 0.8 % (0.1-12.0); Hematocrit 44.4 % (37.0-47.0); Hemoglobin 14.1 g/dL (12.2-16.2); Lymphocytes # 1.9 K/mm3 (0.7-4.5); Lymphocytes % 36.1 % (10-50); Mean Corpuscular HGB Conc 31.8 g/dL (31.8-35.4); Mean Corpuscular Hemoglobin 28.1 pg (27.0-31.2); Mean Corpuscular Volume 88.4 fl (81-99); Mean Platelet Volume 10.2 fl (7.4-10.4); Monocytes # 1.2 K/mm3 (0.1-1.0); Monocytes % 22.4 % (1.7-9.3); Neutrophils # 2.1 K/mm3 (1.8-7.8); Platelet Count 248 K/mm3 (142-424); Red Blood Count 5.02 M/mm3 (4.20-5.40); Red Cell Distribution Width 14.9 % (11.5-17.5); White Blood Count 5.4 K/mm3 (4.8-10.8)
[2022-08-20 16:38] LABS: MANUAL DIFFERENTIAL MANUAL DIFFERENTIAL (MANUAL DIFF)
[2022-08-20 16:53] LABS: Alanine Aminotransferase 15 U/L (12-78); Albumin Level 4.1 g/dl (3.5-5.0); Albumin/Globulin Ratio 1.8 (1.1-1.8); Alkaline Phosphatase 78 U/L (38-126); Anion Gap 14.8 mEq/L (5-15); Aspartate Amino Transferase 25 U/L (14-36); Bilirubin,Total 0.6 mg/dl (0.2-1.3); Blood Urea Nitrogen 24 mg/dl (7-17); Calcium 8.8 mg/dl (8.4-10.2); Carbon Dioxide 24 mmol/L (22.0-30.0); Chloride 104 mmol/L (98-107); Chol/HDL Ratio 3.1 (1-3.5); Cholesterol 135 mg/dl (140-200); Estimated Glomerular Filt Rate 48 ml/min (>60); GFR (African American) 58 ML/MIN (>60); Globulin 2.3 g/dL (1.3-3.2); Glucose 70 mg/dl (74-100); HDL Cholesterol 44 mg/dl (40-60); Potassium 4.8 mmoL/L (3.5-5.1); Sodium 138 mmol/L (136-145); Total Protein,Serum 6.4 g/dl (6.3-8.2); Triglycerides 174 mg/dl (30-150); VLDL Cholesterol 35 mg/dL (0-40)
[2022-08-20 17:04] LABS: Direct LDL Cholesterol 59.07 mg/dL (100-129)
[2022-08-20 17:29] LABS: Lymphocytes % 39 % (10-50); Monocytes % 16 % (2-9); Neutrophils % 45 % (42-76); Total Cells Counted 100
[2022-08-20 17:30] LABS: Platelet Estimate Normal; RBC Morphology Normal
== END ==
PROVIDERS: PCP Internal Medicine; Visit Provider Internal Medicine
DX: I48.0 Paroxysmal 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 (principal); I49.3 Ventricular premature depolarization; I10 Essential (primary) hypertension; E78.5 Hyperlipidemia, unspecified
CPT/HCPCS: 80053; 80061; 85007; 85025

== ENCOUNTER → 2022-09-10 09:28 | Outpatient (CLI) | payer MEDICARE, OTHER, SELFPAY ==
[2022-09-10 11:26] LABS: Anion Gap 19.3 mEq/L (5-15); Blood Urea Nitrogen 25 mg/dl (7-17); Calcium 9.4 mg/dl (8.4-10.2); Carbon Dioxide 24 mmol/L (22.0-30.0); Chloride 100 mmol/L (98-107); Estimated Glomerular Filt Rate 48 ml/min (>60); GFR (African American) 58 ML/MIN (>60); Glucose 87 mg/dl (74-100); Potassium 4.3 mmoL/L (3.5-5.1); Sodium 139 mmol/L (136-145)
== END ==
PROVIDERS: PCP Internal Medicine; Visit Provider Nurse Practitioner
DX: I50.20 Unspecified systolic (congestive) heart failure (principal)
CPT/HCPCS: 36415; 80048

== ENCOUNTER → 2022-09-17 12:22 | Outpatient (CLI) | payer MEDICARE, OTHER, SELFPAY | PROVIDERS: PCP Internal Medicine; Visit Provider Internal Medicine | DX: N39.0 Urinary tract infection, site not specified (principal); B96.89 Other specified bacterial agents as the cause of diseases classified elsewhere | CPT/HCPCS: 87086; 87088; 87186 ==

== ENCOUNTER → 2022-09-22 08:03 | Outpatient (CLI) | payer MEDICARE, OTHER, SELFPAY ==
--- NOTE | 2022-09-22 08:08 | US_ITS ---
FINAL REPORT TECHNIQUE: Limited sonographic imaging of the urinary bladder was obtained. CLINICAL HISTORY: RECURRENT UTI bladder FINDINGS: Urinary bladder measures 127 mL when filled. Postvoid measures 33 mL. There is a small amount of debris in the urinary bladder. Ureteral jet is noted on the left. IMPRESSION: Postvoid residual of 33 mL. Small amount of debris in the urinary bladder. Reviewed, Interpreted and Dictated by Shady Frank III, MD Transcribed by Charla Sage Authenticated and [facility]
--- NOTE | 2022-09-22 08:08 | US_ITS ---
FINAL REPORT TECHNIQUE: Ultrasound imaging of the kidneys was obtained. CLINICAL HISTORY: RECURRENT UTI FINDINGS: The right kidney measures 9.6 cm in length. There is mild renal cortical thinning.. There is no hydronephrosis, mass or stone. The left kidney measures 10.5 cm in length. There is mild renal cortical thinning.. There is no hydronephrosis, mass or stone. IMPRESSION: Mild bilateral renal cortical thinning. Reviewed, Interpreted and Dictated by Shady Frank III, MD Transcribed by Charla Sage Authenticated and [facility]
== END ==
PROVIDERS: PCP Internal Medicine; Visit Provider Internal Medicine
DX: N39.0 Urinary tract infection, site not specified (principal)
CPT/HCPCS: 76770; 76857

== ENCOUNTER → 2022-09-24 16:18 | Outpatient (CLI) | payer MEDICARE, OTHER, SELFPAY ==
[2022-09-24 16:52] LABS: Microscopic, Urine URINE MICROSCOPIC (MICROSCOPIC)
[2022-09-24 18:45] LABS: Appearance,Urine CLEAR (Clear); Bilirubin,Urine Negative (Negative); Blood, Urine 1+ (Negative); Color,Urine YELLOW (Yellow); Glucose,Urine (UA) Negative (Negative); Ketones,Urine Negative (Negative); Leukocyte Esterase,Urine Negative (Negative); Nitrate,Urine POSITIVE (Negative); Protein,Urine Negative (Negative); Specific Gravity, Urine 1.015 (1.005-1.030); Urobilinogen,Urine 0.2 EU/dl (0.2)
[2022-09-24 20:58] LABS: Bacteria,Urine 3+ /lpf; Squamous Epithelial Cell,Urine Occasional #/hpf (0-5); WBC,Urine Occasional #/hpf (0-3)
== END ==
PROVIDERS: PCP Internal Medicine; Visit Provider Internal Medicine
DX: N39.0 Urinary tract infection, site not specified (principal)
CPT/HCPCS: 81001; 87086

== ENCOUNTER 2022-10-02 10:46 | Emergency (ER) | payer MEDICARE, OTHER, SELFPAY ==
[2022-10-02 11:15] VITALS: BP 123/83; PULSE 85; RESP 17; TEMP 36.6; O2SAT 98; BMI 27.8
[2022-10-02 11:17] LABS: Apearance,Urine Cloudy (Clear); Blood, Urine 1+ (Negative); Color,Urine Yellow (Yellow); Glucose,Urine (UA) Negative (Negative); Ketones,Urine Negative (Negative); PH,Urine 5.5 (5.0-8.5); Protein,Urine Negative (Negative)
[2022-10-02 11:18] LABS: Bilirubin,Urine Negative (Negative); UTC Leukocyte Esterase,Urine 3+ (Negative); UTC Nitrate,Urine Positive (Negative); Urobilinogen,Urine 0.2 EU/dl (0.2)
[2022-10-02 11:37] VITALS: BP 123/83; PULSE 85; RESP 17; TEMP 36.6; O2SAT 98
--- NOTE | 2022-10-02 11:41 | EXP.UTC ---
Discharge Plan Disposition Patient Disposition: Home, Self-Care Condition: Good Prescriptions Prescriptions: New cefdinir 300 mg capsule 300 mg PO BID 7 Days Qty: 14 0RF No Action Myrbetriq 25 mg tablet extended release 24 hr 25 mg PO DAILY warfarin 7.5 mg tablet 7.5 mg PO DAILY Rx Instructions: 7.5mg sat,mon,wed,fri, 5mgtues,th,juancarlos cetirizine [Allergy Relief (cetirizine)] 10 mg tablet 10 mg PO DAILY PRN (Reason: allergies ) furosemide 20 mg tablet 20 mg PO DAILY ipratropium bromide 21 mcg (0.03 %) spray,non-aerosol 2 spray intranasal BID Rx Instructions: administer into each nostril polyethylene glycol 3350 [Miralax] 17 gram/dose powder 17 g PO DAILY metoprolol tartrate 50 mg tablet 50 mg PO DAILY pantoprazole [Protonix] [address] for susp in packet 40 mg PO DAILY Leqvio 284 mg/1.5 mL syringe 284 mg SQ [id number] dofetilide 125 mcg capsule 125 mcg PO Q12H ezetimibe 10 MG tablet 10 mg PO DAILY gjutpilz-wiah-mxs2-C-kodi-bosw 1 EACH tablet 1 each PO DAILY Referrals Follow up/Referrals: Ferny Gentile MD [Primary Care Provider] - See instructions Activity Restrictions/Add. Instructions Additional Instructions/Restrictions: Start Oral antibiotics tomorrow *Increase fluids. Water not Soda or Tea *Start antibiotic immediately and be sure to take as ordered for the FULL length of time although you should start to see improvement over the next 48 hours *Be SURE to follow up anytime for new or worsening symptoms with your family doctor. AND in 48 hours for urine culture results with your family doctor, if you do not have a doctor then you may call back to the [facility] for urine culture results and further treatment. We do recommend that you choose and establish care with a Primary Care Physician. ?AND follow up with them ?in 10-14 days to repeat UA to ensure infection is resolved and blood no longer present *Be sure to let your PCP know that we sent urine cultures from the [facility] so they can follow up to ensure that you area the on the correct antibiotic Call your doctor office and make appointment for 48 hours (2 days from today) ?to follow up and get the results of your urine culture and further treatment Clinical Impressions Clinical Impression: UTI (urinary tract infection) Qualifiers: Urinary tract infection type: site unspecified Hematuria presence: without hematuria Qualified Code(s): N39.0 - Urinary tract infection, site not specified Instructions Patient Instructions: Urinary Tract Infection, DI for Urinary Tract Infection (UTI), Cefdinir Discharge ED Provider: Angie Thomas [facility] General Stated complaint: possible UTI Mode of Arrival: Ambulatory Source of Information: Patient Limitations: No Limitations Time Seen by Provider: 10/02/22 11:41 Description of Symptoms (Recalled from Triage Doc. by RN): PATIENT C/O BURNING AND TROUBLE WITH URINATION. SHE STATES SHE HAS HAD A RECURRING UTI SINCE 08/26/22 HEENT Symptoms (Recalled from RN notes): No Resp Symptoms (Recalled from RN notes): No Skin Symptoms (Recalled from RN notes): No MS Symptoms (Recalled from RN notes): No Functional Status (Recalled from RN notes): WNL History of Present Illness Provider Complaint: Patient states that she has been having burning with urination and frequency and urgency States that she has a hx of UTI and feels like it does then Related Data Home Medications Medication Instructions Recorded Confirmed ezetimibe 10 mg tablet 10 mg PO DAILY Cholesterol 07/10/17 08/21/22 glucosamine 750 kj-zjqjcbtcjoj-kys 1 each PO DAILY suppliment 07/10/17 08/21/22 no1 644 mg-C 30 mg-kodi 1 mg tablet mirabegron 25 mg tablet,extended 25 mg PO DAILY unknown 01/14/21 08/21/22 release 24 hr (Myrbetriq) cetirizine 10 mg tablet (Allergy 10 mg PO DAILY PRN allergies 04/16/22 08/21/22 Relief (cetirizine)) furosemide 20 mg tablet 20 mg PO EMLII
== END 2022-10-02 12:23 | disposition home or self-care (01) ==
PROVIDERS: Emergency Provider Nurse Practitioner; PCP Internal Medicine
DX: N39.0 Urinary tract infection, site not specified (principal); B96.89 Other specified bacterial agents as the cause of diseases classified elsewhere; K21.9 Gastro-esophageal reflux disease without esophagitis; E78.5 Hyperlipidemia, unspecified; J30.9 Allergic rhinitis, unspecified
CPT/HCPCS: 81003; 87086; 87088; 87186; 96372; 99204; 99212; G0463; J0696

== ENCOUNTER → 2022-12-09 15:17 | Outpatient (CLI) | payer MEDICARE, OTHER, SELFPAY ==
[2022-12-09 16:08] LABS: INR 2.22 (0.9-1.1); Prothrombin Time 22.8 seconds (10.1-12.5)
== END ==
PROVIDERS: PCP Internal Medicine; Visit Provider Internal Medicine Cardiovascular Disease
DX: I48.0 Paroxysmal 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 (principal); Z51.81 Encounter for therapeutic drug level monitoring; Z79.01 Long term (current) use of anticoagulants
CPT/HCPCS: 36415; 85610

== ENCOUNTER 2022-12-24 12:59 | Outpatient (CLI) | payer MEDICARE, OTHER, SELFPAY ==
[2022-12-24 13:15] VITALS: BP 114/45; PULSE 76; RESP 18; TEMP 36.4; O2SAT 96
== END 2022-12-24 13:15 | disposition home or self-care (01) ==
LOC: INF 13:00
PROVIDERS: PCP Internal Medicine; Visit Provider Internal Medicine
DX: E78.5 Hyperlipidemia, unspecified (principal)
CPT/HCPCS: 96372; J1306

== ENCOUNTER → 2023-02-20 12:32 | Outpatient (CLI) | payer MEDICARE, OTHER, SELFPAY ==
--- OUTSIDE RECORDS SUMMARY | 2023-02-20 12:35 | XMS_ITS ---
Author Name Unknown Address [address] [place] [address] Phone Organization [facility] Address [address] [place] [address] Phone Care Team Providers Care Pressure Dispatcher Name Role Phone MARIAMA MORALEZ, FATOUMATA Blanco Primary Care Provider [phone] Camila MORALEZ, Alanna Bowen Unavailable [phone] Reason for Referral Date Encounter Description Provider Reason for Referral 08/18/22 Post Op Hernan Gold PA-C Referral To Physician 07/07/22 Post Op Hernan Gold PA-C Referral To Physician 06/16/22 Post Op Jaspreet Meza PA-C Refer ral To Physician 04/17/22 Non Physician Specified Ceci Santos APRN Referral To Physician 02/21/22 Follow Up Hernan Gold PA-C Referral To Physician 10/25/20 Follow Up Brandon Wilks MD Referral To Physician - to see pcp for bp 10/17/20 NEW PROBLEM/EST PT Brandon Wilks MD Ref erral To Physician - to see pcp for bp Problems Includes: Active, inactive, and resolved Problems All Visits Onset Date Resolved Date Provider Condition S tatus Joint Pain, Localized in the Right Wrist 04/17/2022 Ceci Santos APRN Active
--- OUTSIDE RECORDS SUMMARY | 2023-02-20 12:35 | XMS_ITS ---
Care Plan - [facility], [facility] Created on: February 20, 2023 Luz Skaggs : 1940 Sex: Female Author Name Unknown Address [address] [place] [address] Phone Organization [facility] Address [address] [place] [address] Phone Care Team Providers Care Purchasing Administrator Name Role Phone MARIAMA MORALEZ, FATOUMATA Blanco Primary Care Provider [phone] Alanna Jensen MD Unavailable [phone]
--- OUTSIDE RECORDS SUMMARY | 2023-02-20 12:36 | XMS_ITS | Clinical Summary ---
Author Name Unknown Address [address] [place] [address] Phone Organization [facility] Address [address] [place] [address] Phone Care Team Providers Care Radio Installer Name Role Phone MARIAMA MORALEZ, FATOUMATA Blanco Primary Care Provider [phone] Alanna Jensen MD Unavailable [phone] Reason for Visit and Chief Complaint [facility] Problems Includes: Problems addressed during this encounter and other active Problems All Visits Onset Date Resolved Date Provider Condition S tatus Joint Pain, Localized in the Right Wrist 04/17/2022 Ceci Santos APRN Active Plan of Treatment Future Appointments Date Time Location Provi gaby Follow Up 08/18/2023 3:15PM [facility] Hernan Gold PA-C Assessments Includes: Assessments from this encounter No Assessments Recorded Medical Equipment - Implanted Devices Includes: Current Devices No Medical Equipment Recorded Medications Includes
--- OUTSIDE RECORDS SUMMARY | 2023-02-20 12:36 | XMS_ITS | Clinical Summary ---
Author Name Unknown Address [address] [place] [address] Phone Organization [facility] Address [address] [place] [address] Phone Care Team Providers Care Cooking Chef Name Role Phone FATOUMATA LESLIE MD Primary Care Provider [phone] Alanna Jensen MD Unavailable [phone] Reason for Referral Date Encounter Description Provider Reason for Referral 08/18/22 Post Op Hernan Gold PA-C Referral To Physician Reason for Visit and Chief Complaint The Chief Complaint is: POV Left TKA Problems Includes: Problems addressed during this encounter and other active Problems All Visits Onset Date Resolved Date Provider Condition S tatus Joint Pain, Localized in the Right Wrist 04/17/2022 Ceci Santos APRN Active Plan of Treatment Fall Risk Assessment: This patient has been identified as a fall risk. Balance/gait along with postural blood pressure, vision and home fall hazards have been assessed. Medications have
--- OUTSIDE RECORDS SUMMARY | 2023-02-20 12:36 | XMS_ITS | Clinical Summary ---
Author Name Unknown Address [address] [place] [address] Phone Organization [facility] Address [address] [place] [address] Phone Care Team Providers Care Benefits Consultant Name Role Phone FATOUMATA LESLIE MD Primary Care Provider [phone] Alanna Jensen MD Unavailable [phone] Reason for Visit and Chief Complaint [Patient Encounter] Problems Includes: Problems addressed during this encounter and other active Problems All Visits Onset Date Resolved Date Provider Condition S tatus Joint Pain, Localized in the Right Wrist 04/17/2022 Ceci Santos APRN Active Plan of Treatment Future Appointments Date Time Location Provi gaby Follow Up 08/18/2023 3:15PM [facility] Hernan Gold PA-C Assessments Includes: Assessments from this encounter No Assessments Recorded Medical Equipment - Implanted Devices Includes: Current Devices No Medical Equipment Recorded Medications Includes: Med
--- OUTSIDE RECORDS SUMMARY | 2023-02-20 12:36 | XMS_ITS | Clinical Summary ---
Author Name Unknown Address [address] [place] [place] [address] Phone Organization [facility] , [facility] Address [address] [place] [address] Phone Care Team Providers Care Surgeon/President Name Role Phone FATOUMATA LESLIE MD Primary Care Provider [phone] Alanna Jensen MD Unavailable [phone] Reason for Referral Date Encounter Description Provider Reason for Referral 07/07/22 Post Op Hernan Gold PA-C Referral [...] and home fall hazards have been assessed. Medication
--- OUTSIDE RECORDS SUMMARY | 2023-02-20 12:36 | XMS_ITS | Clinical Summary ---
Author Name Unknown Address [address] [place] [address] Phone Organization [facility] Address [address] [place] [address] Phone Care Team Providers Care Chief Design Engineer Name Role Phone FATOUMATA LESLIE MD Primary Care Provider [phone] Alanna Jensen MD Unavailable [phone] Reason for Referral Date Encounter Description Provider Reason for Referral 06/16/22 Post Op Jaspreet Meza PA-C Refer ral To Physician Reason for Visit and Chief [...]
[2023-02-20 14:41] LABS: Basophils # 0.1 K/mm3 (0-0.2); Basophils % 0.5 % (0.1-2.0); Eosinophils # 0.1 K/mm3 (0.0-0.4); Eosinophils % 1.4 % (0.1-12.0); Hematocrit 43.7 % (37.0-47.0); Hemoglobin 14.8 g/dL (12.2-16.2); Lymphocytes # 1.6 K/mm3 (0.7-4.5); Lymphocytes % 17.8 % (10-50); Mean Corpuscular HGB Conc 33.8 g/dL (31.8-35.4); Mean Corpuscular Hemoglobin 30.8 pg (27.0-31.2); Mean Corpuscular Volume 91.1 fl (81-99); Mean Platelet Volume 9.7 fl (7.4-10.4); Monocytes # 2.1 K/mm3 (0.1-1.0); Monocytes % 23.8 % (1.7-9.3); Neutrophils # 4.9 K/mm3 (1.8-7.8); Neutrophils % 56.4 % (37.0-80.0); Platelet Count 179 K/mm3 (142-424); Red Cell Distribution Width 13.5 % (11.5-17.5); White Blood Count 8.7 K/mm3 (4.8-10.8)
[2023-02-20 14:44] LABS: MANUAL DIFFERENTIAL MANUAL DIFFERENTIAL (MANUAL DIFF)
[2023-02-20 15:17] LABS: Alanine Aminotransferase 18 U/L (12-78); Albumin Level 4.1 g/dl (3.5-5.0); Albumin/Globulin Ratio 1.6 (1.1-1.8); Alkaline Phosphatase 84 U/L (38-126); Anion Gap 14.9 mEq/L (5-15); Aspartate Amino Transferase 26 U/L (14-36); Bilirubin,Total 0.8 mg/dl (0.2-1.3); Blood Urea Nitrogen 19 mg/dl (7-17); Calcium 9.1 mg/dl (8.4-10.2); Carbon Dioxide 24 mmol/L (22.0-30.0); Chloride 102 mmol/L (98-107); Chol/HDL Ratio 2.5 (1-3.5); Cholesterol 128 mg/dl (140-200); Estimated Glomerular Filt Rate 43 ml/min (>60); GFR (African American) 52 ML/MIN (>60); Globulin 2.6 g/dL (1.3-3.2); Glucose 83 mg/dl (74-100); HDL Cholesterol 51 mg/dl (40-60); Potassium 4.9 mmoL/L (3.5-5.1); Sodium 136 mmol/L (136-145); Total Protein,Serum 6.7 g/dl (6.3-8.2); Triglycerides 123 mg/dl (30-150); VLDL Cholesterol 25 mg/dL (0-40)
[2023-02-20 15:28] LABS: Direct LDL Cholesterol 59.95 mg/dL (100-129)
[2023-02-20 18:25] LABS: Eosinophils % 1 % (0-3); Lymphocytes % 25 % (10-50); Monocytes % 10 % (2-9); Neutrophils % 64 % (42-76); Platelet Estimate Normal; RBC Morphology Normal; Total Cells Counted 100
== END ==
PROVIDERS: PCP Internal Medicine; Visit Provider Internal Medicine
DX: I10 Essential (primary) hypertension (principal); I48.91 Unspecified atrial fibrillation; E78.5 Hyperlipidemia, unspecified; Z85.3 Personal history of malignant neoplasm of breast
CPT/HCPCS: 80053; 80061; 85007; 85025

== ENCOUNTER 2023-02-22 12:13 | Emergency (ER) | payer MEDICARE, OTHER, SELFPAY ==
[2023-02-22 12:14] VITALS: BP 135/64; PULSE 55; RESP 18; TEMP 36.8; O2SAT 99; BMI 26.6
--- NOTE | 2023-02-22 12:29 | EXP.UTC ---
Discharge Plan Disposition Patient Disposition: Home, Self-Care Condition: Good Prescriptions Prescriptions: New phenazopyridine [Pyridium] 200 mg tablet 200 mg PO Q8H 2 Days Qty: 6 0RF cefdinir 300 mg capsule 300 mg PO BID Qty: 20 0RF No Action Myrbetriq 25 mg tablet extended release 24 hr 25 mg PO DAILY cetirizine [Allergy Relief (cetirizine)] 10 mg tablet 10 mg PO DAILY PRN (Reason: allergies ) furosemide 20 mg tablet 20 mg PO DAILY PRN (Reason: Edema) ipratropium bromide 21 mcg (0.03 %) spray,non-aerosol 2 spray intranasal BID Rx Instructions: administer into each nostril polyethylene glycol 3350 [Miralax] 17 gram/dose powder 17 g PO DAILY metoprolol tartrate 50 mg tablet 50 mg PO DAILY pantoprazole [Protonix] [address] for susp in packet 40 mg PO DAILY Leqvio 284 mg/1.5 mL syringe 284 mg SQ [id number] dofetilide 125 mcg capsule 250 mcg PO Q12H warfarin 5 mg tablet See Rx Instructions .ROUTE .COMPLEX Rx Instructions: 5 mg orally every thursday ezetimibe 10 MG tablet 10 mg PO DAILY [id number] 1 EACH tablet 1 each PO DAILY Referrals Follow up/Referrals: Ferny Gentile MD [Primary Care Provider] - See instructions Activity Restrictions/Add. Instructions Additional Instructions/Restrictions: Drink plenty of fluids. Take tylenol for pain or fever. Take the medications as directed. Follow up with your regular doctor. GO TO THE ER FOR ANY WORSENING SYMPTOMS The pyridium will make your urine turn orange, this is an expected side effect. It will stain your clothes if it comes into contact with them. We will culture the urine. That will tell what bacteria is causing your infection and which antibiotics will treat it best. Sometimes the first antibiotic we prescribe turns out to not work against different bacteria. So, make sure you follow up within 3 days if you are not getting better. Clinical Impressions Clinical Impression: Abdominal pain Instructions Patient Instructions: Urinary Tract Infection, Urine Culture, DI for Urinary Tract Infection (UTI) Discharge ED Provider: Wojciech Flores [facility] General Stated complaint: fever and pain in urination Time Seen by Provider: 02/22/23 12:29 History of Present Illness Provider Complaint: She states that she has had urinary frequency, lower abdominal discomfort, fever, chills, and malaise for the past 1 day. Related Data Home Medications Medication Instructions Recorded Confirmed ezetimibe 10 mg tablet 10 mg PO DAILY Cholesterol 07/10/17 02/22/23 glucosamine 750 yh-mzxxxzjwoyb-rco 1 each PO DAILY suppliment 07/10/17 10/30/22 no1 644 mg-C 30 mg-kodi 1 mg tablet mirabegron 25 mg tablet,extended 25 mg PO DAILY unknown 01/14/21 02/22/23 release 24 hr (Myrbetriq) cetirizine 10 mg tablet (Allergy 10 mg PO DAILY PRN allergies 04/16/22 02/22/23 Relief (cetirizine)) furosemide 20 mg tablet 20 mg PO DAILY PRN Edema 04/16/22 02/22/23 ipratropium bromide 21 mcg (0.03 2 spray intranasal BID COPD 04/16/22 02/22/23 %) nasal spray polyethylene glycol 3350 17 17 g PO DAILY Diet supplement 05/14/22 02/22/23 gram/dose oral powder (Miralax) metoprolol tartrate 50 mg tablet 50 mg PO DAILY 07/15/22 02/22/23 pantoprazole 40 mg granules 40 mg PO DAILY 07/15/22 02/22/23 delayed-release for susp in packet (Protonix) inclisiran 284 mg/1.5 mL 284 mg SQ [id number] 08/21/22 10/30/22 subcutaneous syringe (Leqvio) dofetilide 125 mcg capsule 250 mcg PO Q12H 10/30/22 02/22/23 warfarin 5 mg tablet See Rx Instructions .Route .COMPLEX 02/22/23 02/22/23 Previous Rx's Medication Instructions Recorded cefdinir 300 mg capsule 300 mg PO BID #20 caps 02/22/23 phenazopyridine 200 mg tablet 200 mg PO Q8H 2 days #6 tabs 02/22/23 (Pyridium) Allergies Allergy/AdvReac Type Severity Reaction Status Date / Time acetaminophe
[2023-02-22 12:41] LABS: Apearance,Urine Clear (Clear); Color,Urine Yellow (Yellow)
[2023-02-22 12:42] LABS: Bilirubin,Urine Negative (Negative); Blood, Urine 3+ (Negative); Glucose,Urine (UA) Negative (Negative); Ketones,Urine Negative (Negative); Protein,Urine Negative (Negative); Specific Gravity, Urine 1.005 (1.005-1.030); UTC Leukocyte Esterase,Urine Negative (Negative); UTC Nitrate,Urine Negative (Negative); Urobilinogen,Urine 0.2 EU/dl (0.2)
[2023-02-22 13:08] LABS: UTC Influenza A Antigen Negative (Negative); UTC Influenza B Antigen Negative (Negative)
[2023-02-22 13:09] LABS: UTC Strep Screen (Rapid) Negative (Negative)
[2023-02-22 13:44] VITALS: BP 133/64; PULSE 55; RESP 18; TEMP 36.8; O2SAT 99
== END 2023-02-22 13:30 | disposition home or self-care (01) ==
PROVIDERS: Emergency Provider Nurse Practitioner Family; PCP Internal Medicine
DX: R10.30 Lower abdominal pain, unspecified (principal); R35.0 Frequency of micturition; R50.9 Fever, unspecified; R53.81 Other malaise; J30.9 Allergic rhinitis, unspecified; E78.5 Hyperlipidemia, unspecified; Z95.0 Presence of cardiac pacemaker
CPT/HCPCS: 81003; 87086; 87635; 87804; 87880; 99212; 99214; G0463

== ENCOUNTER → 2023-02-25 07:14 | Outpatient (CLI) | payer MEDICARE, OTHER, SELFPAY ==
--- NOTE | 2023-02-25 | CA_ITS ---
FINAL REPORT TECHNIQUE: Color Doppler, duplex Doppler and fernandez scale sonography of the bilateral neck vasculature was performed. Velocities were measured in the carotid arteries. Stenosis evaluation based on velocity criteria. CLINICAL HISTORY: TIA's Afib COMPARISON: None FINDINGS: The peak systolic velocity of the right common carotid artery is 44 cm/sec and internal carotid artery 86 cm/sec. The diastolic velocity in the internal carotid artery is 23 cm/sec. The ICA/CCA ratio is 1.94. Visually, a small to moderate amount of plaque is seen. These findings are consistent with less than 50% stenosis. The external carotid artery is patent. The right vertebral artery is patent with antegrade flow. The peak systolic velocity of the left common carotid artery is 42 cm/sec and internal carotid artery 64 cm/sec. The diastolic velocity in the internal carotid artery is 20 cm/sec. The ICA/CCA ratio is 1.5. Visually, a small to moderate amount of plaque is seen. These findings are consistent with less than 50% stenosis. The external carotid artery is patent. The left vertebral artery is patent with antegrade flow. IMPRESSION: No evidence of significant carotid stenosis. Bilateral patent vertebral arteries. If indicated, CTA or MRA could further evaluate. Reviewed, Interpreted and Dictated by Shady Frank III, MD Transcribed by Teresita Sequeira Authenticated and [facility]
--- NOTE | 2023-02-25 07:34 | CT_ITS ---
FINAL REPORT CLINICAL HISTORY: TIA COMPARISON: 02/10/2020 FINDINGS: Axial images of the head were obtained without contrast. Coronal and sagittal reformatted images were also obtained. This study was performed with techniques to keep radiation doses as low as reasonably achievable (ALARA). Individualized dose reduction techniques using automated exposure control or adjustment of mA and/or kV according to the patient's size were employed. There is generalized age appropriate atrophy. There is no evidence of intracranial hemorrhage or mass. The ventricular size is within normal limits. There is no evidence of shift of the midline structures. No skull abnormality is seen on the bone window images. IMPRESSION: No acute intracranial abnormality. Reviewed, Interpreted and Dictated by Shady Frank III, MD Transcribed by Teresita Sequeira Authenticated and [facility]
== END ==
PROVIDERS: PCP Internal Medicine; Visit Provider Internal Medicine
DX: G45.8 Other transient cerebral ischemic attacks and related syndromes
CPT/HCPCS: 70450; 93880

== ENCOUNTER → 2023-03-17 08:03 | Outpatient (CLI) | payer MEDICARE, OTHER, SELFPAY ==
--- NOTE | 2023-03-17 08:13 | CT_ITS ---
FINAL REPORT TECHNIQUE: After the administration of oral and intravenous contrast, axial images were obtained through the abdomen and pelvis by computed tomography. The study was performed with techniques to keep radiation dose as low as reasonably achievable, (ALARA). Individual dose reduction techniques using automated exposure control or adjustment of mA and/or kV according to the patient's size were employed. CLINICAL HISTORY: ABD PAIN,FEVER COMPARISON: 12/04/2021 FINDINGS: Abdomen: Left subglandular breast implant is identified. There is a pericardial effusion, larger than previous measuring 1.6 cm in depth. The lung bases are clear. The liver parenchyma is homogeneous. The gallbladder is surgically absent. The spleen is unremarkable. The adrenals are normal. The pancreas is unremarkable. The kidneys enhance appropriately. The aorta is normal in caliber. There is no free fluid or adenopathy. Streak artifact is seen from posterior fusion hardware bridging the lower lumbar spine. There is also streak artifact from left hip prosthesis. Pelvis: The appendix is not identified. There is extensive inflammatory reaction surrounding the distal descending colon with associated mucosal thickening. Findings are consistent with acute diverticulitis. No definite abscess is seen. The urinary bladder is unremarkable. There is no free fluid or adenopathy. IMPRESSION: Acute diverticulitis of the distal descending colon. Left pericardial effusion, larger than previous. Reviewed, Interpreted and Dictated by Brayan Purdy MD Transcribed by Angelica Hammonds Authenticated and [facility]
== END ==
PROVIDERS: PCP Internal Medicine; Visit Provider Internal Medicine
DX: R10.9 Unspecified abdominal pain (principal); R50.9 Fever, unspecified
CPT/HCPCS: 74177; Q9967

== ENCOUNTER 2023-07-09 13:18 | Outpatient (CLI) | payer MEDICARE, OTHER, SELFPAY ==
[2023-07-09 13:29] VITALS: BP 118/81; PULSE 72; RESP 18; TEMP 36.6; O2SAT 98
[2023-07-09] MEDS: INCLISIRAN SODIUM 284 MG/1.5 ML SYRINGE SQ (13:29)
== END 2023-07-09 13:53 | disposition home or self-care (01) ==
LOC: INF 13:19
PROVIDERS: PCP Internal Medicine; Visit Provider Internal Medicine
DX: E78.5 Hyperlipidemia, unspecified (principal)
CPT/HCPCS: 96372; J1306

== ENCOUNTER 2023-08-19 13:43 | Outpatient (CLI) | payer MEDICARE, OTHER, SELFPAY ==
[2023-08-19 14:32] LABS: Basophils % 0.5 % (0.1-2.0); Eosinophils # 0.1 K/mm3 (0.0-0.4); Eosinophils % 2.4 % (0.1-12.0); Hematocrit 43.1 % (37.0-47.0); Hemoglobin 14.4 g/dL (12.2-16.2); Lymphocytes # 1.7 K/mm3 (0.7-4.5); Lymphocytes % 29.2 % (10-50); Mean Corpuscular HGB Conc 33.3 g/dL (31.8-35.4); Mean Corpuscular Hemoglobin 30.1 pg (27.0-31.2); Mean Corpuscular Volume 90.4 fl (81-99); Mean Platelet Volume 8.6 fl (7.4-10.4); Monocytes # 1.5 K/mm3 (0.1-1.0); Monocytes % 25.7 % (1.7-9.3); Neutrophils # 2.5 K/mm3 (1.8-7.8); Neutrophils % 42.2 % (37.0-80.0); Platelet Count 204 K/mm3 (142-424); Red Blood Count 4.77 M/mm3 (4.20-5.40); White Blood Count 5.8 K/mm3 (4.8-10.8)
[2023-08-19 14:50] LABS: MANUAL DIFFERENTIAL MANUAL DIFFERENTIAL (MANUAL DIFF)
[2023-08-19 15:08] LABS: Alanine Aminotransferase 18 U/L (12-78); Albumin Level 4.3 g/dl (3.5-5.0); Albumin/Globulin Ratio 1.9 (1.1-1.8); Alkaline Phosphatase 68 U/L (38-126); Anion Gap 13.7 mEq/L (5-15); Aspartate Amino Transferase 35 U/L (14-36); Bilirubin,Total 0.9 mg/dl (0.2-1.3); Blood Urea Nitrogen 28 mg/dl (7-17); Calcium 9.4 mg/dl (8.4-10.2); Carbon Dioxide 22 mmol/L (22.0-30.0); Chloride 108 mmol/L (98-107); Chol/HDL Ratio 3.8 (1-3.5); Cholesterol 147 mg/dl (140-200); Estimated Glomerular Filt Rate 48 ml/min (>60); GFR (African American) 58 ML/MIN (>60); Globulin 2.3 g/dL (1.3-3.2); Glucose 73 mg/dl (74-100); HDL Cholesterol 39 mg/dl (40-60); Magnesium 2.1 mg/dl (1.6-2.3); Potassium 4.7 mmoL/L (3.5-5.1); Sodium 139 mmol/L (136-145); Total Protein,Serum 6.6 g/dl (6.3-8.2); Triglycerides 156 mg/dl (30-150); VLDL Cholesterol 31 mg/dL (0-40)
[2023-08-19 15:19] LABS: Direct LDL Cholesterol 64.82 mg/dL (100-129)
[2023-08-19 16:02] LABS: Lymphocytes % 49 % (10-50); Monocytes % 11 % (2-9); Neutrophils % 40 % (42-76); Platelet Estimate Normal; RBC Morphology Normal; Total Cells Counted 100
== END 2023-08-19 23:59 | disposition home or self-care (01) ==
LOC: LAB.DROPOF 13:44
PROVIDERS: PCP Internal Medicine; Visit Provider Internal Medicine
DX: I10 Essential (primary) hypertension (principal); E78.5 Hyperlipidemia, unspecified; I48.0 Paroxysmal 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; I49.3 Ventricular premature depolarization; F32.0 Major depressive disorder, single episode, mild; Z85.3 Personal history of malignant neoplasm of breast; Z51.81 Encounter for therapeutic drug level monitoring; Z79.01 Long term (current) use of anticoagulants
CPT/HCPCS: 80053; 80061; 83735; 85007; 85025

== ENCOUNTER 2023-12-18 10:04 | Outpatient (CLI) | payer MEDICARE, OTHER, SELFPAY | END 2023-12-18 23:59 | disposition home or self-care (01) | LOC: LAB.DROPOF 12-21 10:04 | PROVIDERS: PCP Internal Medicine; Visit Provider Internal Medicine | DX: N39.0 Urinary tract infection, site not specified (principal); B95.2 Enterococcus as the cause of diseases classified elsewhere | CPT/HCPCS: 87086; 87088; 87186 ==

== ENCOUNTER 2023-12-22 08:52 | Outpatient (CLI) | payer MEDICARE, OTHER, SELFPAY ==
--- NOTE | 2023-12-22 08:53 | XR_ITS ---
FINAL REPORT TECHNIQUE: Bone densitometry calculations of the lumbar spine and left hip were obtained. CLINICAL HISTORY: Osteoporosis COMPARISON: None FINDINGS: Using L1-4, the bone mineral density of the spine is 1.157 g/cm2, corresponding to T-score of 1.0. This may be falsely elevated secondary to a prior kyphoplasty at the T12 level. Using the right hip, the bone mineral density of the femoral neck is 0.726 g/cm2, corresponding to a T-score of -1.1. Using the right forearm, the bone mineral density of the mid right forearm is 0.417 g/cm?, corresponding to a T-score of -3.5. NOTE: T-score: Standard deviation compared with peak bone mass of young adult mean. *Following the recommendations of the International Society of Bone densitometry, classification of hip BMD is based on the lower of two T-scores; total hip or femoral neck. IMPRESSION: Diminished bone mineral density of the right hip consistent with osteopenia. Diminished bone mineral density of the mid right forearm is consistent with osteoporosis. Normal bone mineral density of the spine may be falsely elevated secondary to a prior kyphoplasty at the T12 level. Reviewed, Interpreted and Dictated by Brayan Purdy MD Transcribed by Teresita Sequeira Authenticated and . [facility]
--- NOTE | 2023-12-22 09:19 | XR_ITS ---
FINAL REPORT TECHNIQUE: Four views CLINICAL HISTORY: Osteoporosis COMPARISON: None FINDINGS: THORACIC SPINE: 4 views of the thoracic spine were obtained with no prior films available for comparison purposes. The patient has undergone a prior kyphoplasty at the T12 level. Diffuse osteopenia is present. There is approximately 40% loss of vertebral body height at the T7 and T11 levels. IMPRESSION: Prior kyphoplasty at the T12 level with diffuse osteopenia. Approximately 40% loss of vertebral body height at the T7 and T11 levels. Reviewed, Interpreted and Dictated by Brayan Purdy MD Transcribed by Teresita Sequeira Authenticated and [facility]
== END 2023-12-22 23:59 | disposition home or self-care (01) ==
LOC: RAD 08:53
PROVIDERS: PCP Internal Medicine; Visit Provider Specialist
DX: M81.0 Age-related osteoporosis without current pathological fracture (principal); R53.83 Other fatigue
CPT/HCPCS: 72070; 77080

== ENCOUNTER 2024-01-05 14:25 | Outpatient (CLI) | payer MEDICARE, OTHER, SELFPAY ==
[2024-01-05 13:47] LABS: Microscopic, Urine URINE MICROSCOPIC (MICROSCOPIC)
[2024-01-05 14:13] LABS: Appearance,Urine CLOUDY (Clear); Bilirubin,Urine Negative (Negative); Blood, Urine 1+ (Negative); Color,Urine YELLOW (Yellow); Glucose,Urine (UA) Negative (Negative); Ketones,Urine Negative (Negative); Leukocyte Esterase,Urine 2+ (Negative); Nitrate,Urine POSITIVE (Negative); Protein,Urine TRACE (Negative); Urobilinogen,Urine 0.2 EU/dl (0.2)
[2024-01-05 14:30] LABS: Bacteria,Urine 3+ /lpf; Hyaline Casts,Urine OCC #/lpf (0); RBC,Urine Occasional #/hpf (0-3); Squamous Epithelial Cell,Urine Occasional #/hpf (0-5); WBC,Urine 50-100 #/hpf (0-3)
== END 2024-01-05 23:59 | disposition home or self-care (01) ==
LOC: LAB.DROPOF 01-06 14:25
PROVIDERS: PCP Internal Medicine; Visit Provider Internal Medicine
DX: R30.0 Dysuria (principal)
CPT/HCPCS: 81001; 87086; 87088; 87186

== ENCOUNTER 2024-01-14 11:52 | Outpatient (CLI) | payer MEDICARE, OTHER, SELFPAY ==
[2024-01-14 12:10] VITALS: BP 117/66; PULSE 69; RESP 20; TEMP 36.4; O2SAT 97
[2024-01-14] MEDS: INCLISIRAN SODIUM 284 MG/1.5 ML SYRINGE SQ (12:10)
== END 2024-01-14 12:39 | disposition home or self-care (01) ==
LOC: INF 11:53
PROVIDERS: PCP Internal Medicine; Visit Provider Internal Medicine
DX: I48.0 Paroxysmal 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 (principal); Z79.01 Long term (current) use of anticoagulants
CPT/HCPCS: 96372; J1306

== ENCOUNTER 2024-02-12 15:39 | Outpatient (CLI) | payer MEDICARE, OTHER, SELFPAY ==
[2024-02-12 16:00] LABS: Adenovirus F 40/41, stool Not Detected (NotDetected); Astrovirus Not Detected (NotDetected); Campylobacter Not Detected (NotDetected); Clostridium Difficile A/B, PCR Not Detected (NotDetected); Cryptosporidium Not Detected (NotDetected); Cyclospora Cayetanesis Not Detected (NotDetected); Entamoeba histolytica Not Detected (NotDetected); Enteroaggregative E coli Not Detected (NotDetected); Enteropathogenic E coli Not Detected (NotDetected); Enterotoxigenic E coli Not Detected (NotDetected); Giardia lamblia Not Detected (NotDetected); Norovirus Not Detected (NotDetected); Plesimonas Shigalloides, PCR Not Detected (NotDetected); Rotavirus A Not Detected (NotDetected); Salmonella, PCR Not Detected (NotDetected); Sapovirus Not Detected (NotDetected); Shiga-like toxin E coli Not Detected (NotDetected); Shigella Enterovasive E coli Not Detected (NotDetected); Vibrio Cholerae Not Detected (NotDetected); Vibrio, PCR Not Detected (NotDetected); Yersinia Entercolitica, PCR Not Detected (NotDetected)
== END 2024-02-12 23:59 | disposition home or self-care (01) ==
LOC: LAB 15:41
PROVIDERS: PCP Internal Medicine; Visit Provider Nurse Practitioner Family
DX: R19.7 Diarrhea, unspecified (principal); R15.9 Full incontinence of feces; R15.2 Fecal urgency
CPT/HCPCS: 87506

== ENCOUNTER 2024-02-18 14:44 | Outpatient (CLI) | payer MEDICARE, OTHER, SELFPAY ==
[2024-02-18 14:46] LABS: Basophils # 0.1 K/mm3 (0-0.2); Basophils % 0.8 % (0.1-2.0); Eosinophils # 0.1 K/mm3 (0.0-0.4); Eosinophils % 2.1 % (0.1-12.0); Hematocrit 39.8 % (37.0-47.0); Hemoglobin 13.4 g/dL (12.2-16.2); Lymphocytes # 1.4 K/mm3 (0.7-4.5); Lymphocytes % 20.6 % (10-50); Mean Corpuscular HGB Conc 33.7 g/dL (31.8-35.4); Mean Corpuscular Hemoglobin 30.8 pg (27.0-31.2); Mean Corpuscular Volume 91.6 fl (81-99); Mean Platelet Volume 9.2 fl (7.4-10.4); Monocytes # 1.6 K/mm3 (0.1-1.0); Monocytes % 24.4 % (1.7-9.3); Neutrophils # 3.5 K/mm3 (1.8-7.8); Neutrophils % 52.1 % (37.0-80.0); Platelet Count 218 K/mm3 (142-424); Red Blood Count 4.35 M/mm3 (4.20-5.40); Red Cell Distribution Width 13.6 % (11.5-17.5); White Blood Count 6.7 K/mm3 (4.8-10.8)
[2024-02-18 14:53] LABS: MANUAL DIFFERENTIAL MANUAL DIFFERENTIAL (MANUAL DIFF)
[2024-02-18 15:15] LABS: Alanine Aminotransferase 22 U/L (12-78); Albumin/Globulin Ratio 1.6 (1.1-1.8); Alkaline Phosphatase 80 U/L (38-126); Anion Gap 8.6 mEq/L (5-15); Aspartate Amino Transferase 34 U/L (14-36); Bilirubin,Total 0.6 mg/dl (0.2-1.3); Blood Urea Nitrogen 14 mg/dl (7-17); Calcium 9.1 mg/dl (8.4-10.2); Carbon Dioxide 24 mmol/L (22.0-30.0); Chloride 108 mmol/L (98-107); Chol/HDL Ratio 2.3 (1-3.5); Cholesterol 125 mg/dl (140-200); Estimated Glomerular Filt Rate 53 ml/min (>60); GFR (African American) 64 ML/MIN (>60); Globulin 2.5 g/dL (1.3-3.2); Glucose 86 mg/dl (74-100); HDL Cholesterol 55 mg/dl (40-60); Potassium 4.6 mmoL/L (3.5-5.1); Sodium 136 mmol/L (136-145); Total Protein,Serum 6.5 g/dl (6.3-8.2); Triglycerides 104 mg/dl (30-150); VLDL Cholesterol 21 mg/dL (0-40)
[2024-02-18 15:26] LABS: Direct LDL Cholesterol 45.49 mg/dL (100-129)
[2024-02-18 15:35] LABS: Eosinophils % 1 % (0-3); Lymphocytes % 42 % (10-50); Monocytes % 7 % (2-9); Neutrophils % 50 % (42-76); Platelet Estimate Normal; RBC Morphology Normal; Total Cells Counted 100
== END 2024-02-18 23:59 | disposition home or self-care (01) ==
LOC: LAB.DROPOF 14:44
PROVIDERS: PCP Internal Medicine; Visit Provider Internal Medicine
DX: I10 Essential (primary) hypertension (principal); E78.5 Hyperlipidemia, unspecified; M81.0 Age-related osteoporosis without current pathological fracture
CPT/HCPCS: 80053; 80061; 85007; 85025; 85027

== ENCOUNTER 2024-03-14 14:45 | Outpatient (CLI) | payer MEDICARE, OTHER, SELFPAY | END 2024-03-14 23:59 | disposition home or self-care (01) | LOC: LAB.DROPOF 03-15 09:51 | PROVIDERS: PCP Internal Medicine; Visit Provider Internal Medicine | DX: N39.0 Urinary tract infection, site not specified (principal) | CPT/HCPCS: 87086; 87088; 87186 ==

== ENCOUNTER 2024-04-26 11:00 | Outpatient (CLI) | payer MEDICARE, OTHER, SELFPAY ==
[2024-04-26 12:32] LABS: Chloride 101 mmol/L (98-107); Sodium 134 mmol/L (136-145)
[2024-04-26 12:33] LABS: Potassium 4.5 mmoL/L (3.5-5.1)
[2024-04-26 12:36] LABS: Anion Gap 11.5 mEq/L (5-15); Blood Urea Nitrogen 20 mg/dl (7-17); Calcium 9.3 mg/dl (8.4-10.2); Carbon Dioxide 26 mmol/L (22.0-30.0); Estimated Glomerular Filt Rate 53 ml/min (>60); GFR (African American) 64 ML/MIN (>60); Glucose 85 mg/dl (74-100)
== END 2024-04-26 23:59 | disposition home or self-care (01) ==
LOC: LAB 11:02
PROVIDERS: PCP Internal Medicine; Visit Provider Physician Assistant
DX: I50.22 Chronic systolic (congestive) heart failure (principal)
CPT/HCPCS: 36415; 80048

== ENCOUNTER 2024-07-14 13:05 | Outpatient (CLI) | payer MEDICARE, OTHER, SELFPAY ==
[2024-07-14 13:35] LABS: Basophils % 0.4 % (0.1-2.0); Eosinophils # 0.2 K/mm3 (0.0-0.4); Eosinophils % 2.3 % (0.1-12.0); Hematocrit 38.1 % (37.0-47.0); Hemoglobin 12.5 g/dL (12.2-16.2); Lymphocytes # 1.2 K/mm3 (0.7-4.5); Lymphocytes % 18.1 % (10-50); Mean Corpuscular HGB Conc 32.8 g/dL (31.8-35.4); Mean Corpuscular Hemoglobin 29.3 pg (27.0-31.2); Mean Corpuscular Volume 89.4 fl (81-99); Mean Platelet Volume 10.2 fl (7.4-10.4); Monocytes # 0.9 K/mm3 (0.1-1.0); Monocytes % 12.6 % (1.7-9.3); Neutrophils # 4.4 K/mm3 (1.8-7.8); Neutrophils % 64.8 % (37.0-80.0); Platelet Count 230 K/mm3 (142-424); Red Blood Count 4.26 M/mm3 (4.20-5.40); Red Cell Distribution Width 13.2 % (11.5-17.5); White Blood Count 6.8 K/mm3 (4.8-10.8)
[2024-07-14 13:59] LABS: Albumin Level 4.5 g/dl (3.5-5.0); Chloride 105 mmol/L (98-107); Potassium 4.2 mmoL/L (3.5-5.1); Sodium 138 mmol/L (136-145)
[2024-07-14 14:02] LABS: Alanine Aminotransferase 21 U/L (12-78); Albumin/Globulin Ratio 1.9 (1.1-1.8); Alkaline Phosphatase 96 U/L (38-126); Anion Gap 11.2 mEq/L (5-15); Aspartate Amino Transferase 29 U/L (14-36); Bilirubin,Total 0.4 mg/dl (0.2-1.3); Blood Urea Nitrogen 18 mg/dl (7-17); Calcium 9.2 mg/dl (8.4-10.2); Carbon Dioxide 26 mmol/L (22.0-30.0); Erythrocyte Sedimentation Rate 31 mm/hr (0-30); Estimated Glomerular Filt Rate 53 ml/min (>60); GFR (African American) 64 ML/MIN (>60); Globulin 2.4 g/dL (1.3-3.2); Glucose 99 mg/dl (74-100); Total Protein,Serum 6.9 g/dl (6.3-8.2)
[2024-07-14 14:10] LABS: C-Reactive Protein 27.8 mg/L (0-4)
== END 2024-07-14 23:59 | disposition home or self-care (01) ==
LOC: LAB 13:06
PROVIDERS: PCP Internal Medicine; Visit Provider Internal Medicine
DX: Z79.899 Other long term (current) drug therapy (principal)
CPT/HCPCS: 36415; 80053; 85025; 85651; 86140

== ENCOUNTER 2024-07-27 12:25 | Outpatient (CLI) | payer MEDICARE, OTHER, SELFPAY ==
[2024-07-27 12:35] VITALS: BP 105/49; PULSE 74; RESP 18; TEMP 37.1; O2SAT 100
[2024-07-27] MEDS: INCLISIRAN SODIUM 284 MG/1.5 ML SYRINGE SUBCUT (12:35)
== END 2024-07-27 12:45 | disposition home or self-care (01) ==
LOC: INF 12:26
PROVIDERS: PCP Internal Medicine; Visit Provider Internal Medicine
DX: E78.5 Hyperlipidemia, unspecified (principal)
CPT/HCPCS: 96372; J1306

== ENCOUNTER 2024-08-01 10:12 | Outpatient (CLI) | payer MEDICARE, OTHER, SELFPAY | END 2024-08-01 23:59 | disposition home or self-care (01) | LOC: LAB.DROPOF 08-02 10:13 | PROVIDERS: PCP Internal Medicine; Visit Provider Internal Medicine | DX: N39.0 Urinary tract infection, site not specified (principal) | CPT/HCPCS: 87086; 87088; 87186 ==

== ENCOUNTER 2024-08-18 14:54 | Outpatient (CLI) | payer MEDICARE, OTHER, SELFPAY ==
[2024-08-18 13:36] LABS: Basophils % 0.7 % (0.1-2.0); Eosinophils % 0.7 % (0.1-12.0); Hematocrit 39.2 % (37.0-47.0); Hemoglobin 12.9 g/dL (12.2-16.2); Lymphocytes # 1.1 K/mm3 (0.7-4.5); Lymphocytes % 18.6 % (10-50); Mean Corpuscular HGB Conc 32.9 g/dL (31.8-35.4); Mean Corpuscular Volume 91.2 fl (81-99); Mean Platelet Volume 11.4 fl (7.4-10.4); Monocytes # 1.7 K/mm3 (0.1-1.0); Monocytes % 30.2 % (1.7-9.3); Neutrophils # 2.8 K/mm3 (1.8-7.8); Neutrophils % 48.8 % (37.0-80.0); Nucleated Red Blood Cells # 0 10^3/uL; Nucleated Red Blood Cells % 0 %; Platelet Count 202 K/mm3 (142-424); Red Cell Distribution Width-SD 46.3 fL; White Blood Count 5.8 K/mm3 (4.8-10.8)
[2024-08-18 13:42] LABS: MANUAL DIFFERENTIAL MANUAL DIFFERENTIAL (MANUAL DIFF)
[2024-08-18 14:06] LABS: Eosinophils % 1 % (0-3); Lymphocytes % 37 % (10-50); Monocytes % 12 % (2-9); Neutrophils % 50 % (42-76); Total Cells Counted 100
[2024-08-18 14:14] LABS: Alanine Aminotransferase 18 U/L (12-78); Albumin/Globulin Ratio 1.5 (1.1-1.8); Alkaline Phosphatase 82 U/L (38-126); Anion Gap 15.2 mEq/L (5-15); Aspartate Amino Transferase 35 U/L (14-36); Bilirubin,Total 0.6 mg/dl (0.2-1.3); Blood Urea Nitrogen 18 mg/dl (7-17); Calcium 8.8 mg/dl (8.4-10.2); Carbon Dioxide 22 mmol/L (22.0-30.0); Chloride 106 mmol/L (98-107); Chol/HDL Ratio 2.4 (1-3.5); Cholesterol 131 mg/dl (140-200); Estimated Glomerular Filt Rate 53 ml/min (>60); GFR (African American) 64 ML/MIN (>60); Globulin 2.7 g/dL (1.3-3.2); Glucose 94 mg/dl (74-100); HDL Cholesterol 55 mg/dl (40-60); Potassium 4.2 mmoL/L (3.5-5.1); Sodium 139 mmol/L (136-145); Total Protein,Serum 6.7 g/dl (6.3-8.2); Triglycerides 135 mg/dl (30-150); VLDL Cholesterol 27 mg/dL (0-40)
--- OUTSIDE RECORDS SUMMARY | 2024-08-18 14:56 | XMS_ITS ---
Author Organization [facility] Address [address] [place] [address] Phone Care Team Providers Care State Pilot Name Role Phone MARIAMA MORALEZ, FATOUMATA Blanco Primary Care Provider [phone] Camila MORALEZ, Alanna Bowen Unavailable [phone] Reason for Referral Date Encounter Description Provider Reason for Referral 08/18/23 Follow Up Hernan Gold PA-C Referral To Physician 08/18/22 Post Op Hernan Gold PA-C Referral [...] Right Wrist 04/17/2022 Ceci Santos APRN Active Last Documented On 2 1:05PM ; [facility] Joint Pain Right Thumb 04/17/2022 Ceci griffin APRN Active Last Documented On 2 1:05PM ; [facility] Midback Pain 10/17/2020 Brandon Wilks MD Acti ve Last Documented On 1 2:32PM ; [facility] Joint Pain in the Left Knee 02/16/2020 Rachel Cuevas MD Active Last Documented On 0 1:26PM ; [facility] Joint Pain in the Right Knee 10/29/2016 James Jensen MD Active Last Documented On 7 10:32AM ; [facility] Pain in the Lumbar Spine 03/13/2016 Alanna Jensen MD Active Last Documented On 6 1:07PM ; [facility] Joint Pain in the Left Hip 03/13/2016 Alanna Jensen MD Active Last Documented On 6 1:09PM ; [facility] Joint Pain, Localized in the Knee 03/10/2012 Ve tomeka Jensen MD Active Last Documented On 2 10:37AM ; [facility] Plan of Treatment Findings Encounter Date Patient screened for future fall risk: documentation of any fall with injury in past year Follow Up with Ceci Santos APRN 04/14/2024 Last Documented On 4 4:23PM ; [facility] Pending Tests Order Diagnosis Results Due Ordering P rovider Lab Orders - HL Pre-Op PTT Other intervertebral disc degeneration, lumbar region 12/02/17 Brandon Wilks MD Last Documented On 8 9:23AM ; [facility] Lab Orders - [facility] Pre-Op PT INR Other intervertebral disc degeneration, lumbar region 12/02/17 Brandon Wilks MD Last Documented On 8 9:23AM ; [facility] Lab Orders - HL Pre-Op CMP Other int ervertebral disc degeneration, lumbar region 12/02/17 Brandon Wilks MD Last Documented On 8 9:23AM ; [facility] Lab Orders - HL Pre-Op Clean Catch UA Other intervertebral disc degeneration, lumbar region 12/02/17 Brandon Wilks MD Last Documented On 8 9:23AM ; [facility] Lab Orders - HL Pre-Op CBC with DIFF Other intervertebral disc degeneration, lumbar region 12/02/17 Brandon Wilks MD Last Documented On 8 9:23AM ; [facility] Lab Orders - HL Pre-Op BMP Other int ervertebral disc degeneration, lumbar region 12/02/17 Brandon Wilks MD Last Documented On 8 9:23AM ; [facility] Instructions to patient Lose weight Last Documented On 4 12:12PM ; [facility] Lose weight Last Documented On 4 3:03PM ; [facility] Lose weight Last Documented On 3 1:09PM ; [facility] Lose weight Last Documented On 3 11:07AM ; [facility] Lose weight Last Documented On 3 3:44PM ; [facility] Lose weight Last Documented On 2 1:11PM ; [facility] Instructions for patient SEE PCP FOR BP Last Documented On 2 9:43AM ; [facility] Lose weight Last Documented On 2 10:19AM ; [facility] Instructions for patient SEE PCP FOR BP Last Documented On 1 10:46AM ; [facility] Lose weight Last Documented On 1 10:46AM ; [facility] Instructions for patient SEE PCP FOR BP Last Documented On 1 2:32PM ; [facility] Lose weight Last Documented On 1 2:42PM ; [facility] Instructions for patient SEE PCP FOR BP Last Documented On 0 1:09PM ; [facility] Instructions for patient SEE PCP FOR BP and wt ~ Last Documented On 0 8:26AM ; [facility] Lose weight Last Documented On 0 8:26AM ; [facility] Instructions for patient SEE PCP FOR BP and wt ~ Last Documented On 0 1:59PM ; [facility] Lose weight Last Documented On 0 1:59PM ; [facility] Instructions for patient SEE PCP FOR BP Last Documented On 0 3:00PM ; [facility] Instructions for patient SEE PCP FOR BP Last Documented On 9 1:03PM ; [facility] Instructions for patient SEE PCP FOR BP Last Documented On 9 11:20AM ; [facility] Instructions for patient SEE PCP FOR BP Last Documented On 9 8:43AM ; [facility] No intervention and counseli ng on cessation of tobacco use Last Documented On 9 8:43AM ; [facility] Instructions for patient SEE PCP FOR BP Last Documented On 9 11:51AM ; [facility] No intervention and counseli ng on cessation of tobacco use Last Documented On 9 11:51AM ; [facility] Instructions for patient SEE PCP FOR BP Last Documented On 9 10:40AM ; [facility] No intervention and counseli ng on cessation of tobacco use Last Documented On 9 10:40AM ; [facility] Instructions for patient see PCP for BP Last Documented On 8 11:51AM ; [facility] Instructions for patient see PCP for BP Last Documented On 8 1:16PM ; [facility] Instructions for patient see PCP for BP Last Documented On 8 10:21AM ; [facility] Instructions for patient see PCP for BP Last Documented On 8 8:38AM ; [facility] Instructions for patient see PCP for BP Last Documented On 8 10:23AM ; [facility] Instructions for patient see PCP for BP Last Documented On 8 12:58PM ; [facility] No intervention and counseli ng on cessation of tobacco use Last Documented On 8 1:06PM ; [facility] Instructions for patient see PCP for BP Last Documented On 8 1:39PM ; [facility] Instructions for patient Last Documented On 7 1:02PM ; [facility] Instructions for patient Last Documented On 6 1:03PM ; [facility] Instructions for patient Last Documented On 6 1:09PM ; [facility] Instructions for patient Last Documented On 6 2:08PM ; [facility] Instructions for patient Last Documented On 6 12:47PM ; [facility] Instructions for patient Last Documented On 6 1:09PM ; [facility] Instructions for patient Last Documented On 6 1:08PM ; [facility] No intervention and counseli ng on cessation of tobacco use Last Documented On 3 1:16PM ; [facility] Education and Decision Aids were provided during visit for: No health seminar on smoking cessation Last Documented On 9 8:43AM ; [facility] No health seminar on smoking cessation Last Documented On 9 11:51AM ; [facility] No health seminar on smoking cessation Last Documented On 9 10:40AM ; [facility] No health seminar on smoking cessation Last Documented On 8 1:06PM ; [facility] Assessments Includes: Assessments for all patient encounters Findings Encounter Date Overweight Follow Up with Ceci Santos APRN 04/14/2024 Last Documented On 4 4:23PM ; [facility] Overweight Follow Up with Hernan Nelson 08/18/2023 Last Documented On 4 8:29AM ; [facility] Instructions Includes: Instructions for all patient encounters Instructions to patient Lose weight Last Documented On 4 12:12PM ; [facility] Lose weight Last Documented On 4 3:03PM ; [facility] Lose weight Last Documented On 3 1:09PM ; [facility] Lose weight Last Documented On 3 11:07AM ; [facility] Lose weight Last Documented On 3 3:44PM ; [facility] Lose weight Last Documented On 2 1:11PM ; [facility] Instructions for patient SEE PCP FOR BP Last Documented On 2 9:43AM ; [facility] Lose weight Last Documented On 2 10:19AM ; [facility] Instructions for patient SEE PCP FOR BP Last Documented On 1 10:46AM ; [facility] Lose weight Last Documented On 1 10:46AM ; [facility] Instructions for patient SEE PCP FOR BP Last Documented On 1 2:32PM ; [facility] Lose weight Last Documented On 1 2:42PM ; [facility] Instructions for patient SEE PCP FOR BP Last Documented On 0 1:09PM ; [facility] Instructions for patient SEE PCP FOR BP and wt ~ Last Documented On 0 8:26AM ; [facility] Lose weight Last Documented On 0 8:26AM ; [facility] Instructions for patient SEE PCP FOR BP and wt ~ Last Documented On 0 1:59PM ; [facility] Lose weight Last Documented On 0 1:59PM ; [facility] Instructions for patient SEE PCP FOR BP Last Documented On 0 3:00PM ; [facility] Instructions for patient SEE PCP FOR BP Last Documented On 9 1:03PM ; [facility] Instructions for patient SEE PCP FOR BP Last Documented On 9 11:20AM ; [facility] Instructions for patient SEE PCP FOR BP Last Documented On 9 8:43AM ; [facility] No intervention and counseli ng on cessation of tobacco use Last Documented On 9 8:43AM ; [facility] Instructions for patient SEE PCP FOR BP Last Documented On 9 11:51AM ; [facility] No intervention and counseli ng on cessation of tobacco use Last Documented On 9 11:51AM ; [facility] Instructions for patient SEE PCP FOR BP Last Documented On 9 10:40AM ; [facility] No intervention and counseli ng on cessation of tobacco use Last Documented On 9 10:40AM ; [facility] Instructions for patient see PCP for BP Last Documented On 8 11:51AM ; [facility] Instructions for patient see PCP for BP Last Documented On 8 1:16PM ; [facility] Instructions for patient see PCP for BP Last Documented On 8 10:21AM ; [facility] Instructions for patient see PCP for BP Last Documented On 8 8:38AM ; [facility] Instructions for patient see PCP for BP Last Documented On 8 10:23AM ; [facility] Instructions for patient see PCP for BP Last Documented On 8 12:58PM ; [facility] No intervention and counseli ng on cessation of tobacco use Last Documented On 8 1:06PM ; [facility] Instructions for patient see PCP for BP Last Documented On 8 1:39PM ; [facility] Instructions for patient Last Documented On 7 1:02PM ; [facility] Instructions for patient Last Documented On 6 1:03PM ; [facility] Instructions for patient Last Documented On 6 1:09PM ; [facility] Instructions for patient Last Documented On 6 2:08PM ; [facility] Instructions for patient Last Documented On 6 12:47PM ; [facility] Instructions for patient Last Documented On 6 1:09PM ; [facility] Instructions for patient Last Documented On 6 1:08PM ; [facility] No intervention and counseli ng on cessation of tobacco use Last Documented On 3 1:16PM ; [facility] Education and Decision Aids were provided during visit for: No health seminar on smoking cessation Last Documented On 9 8:43AM ; [facility] No health seminar on smoking cessation Last Documented On 9 11:51AM ; [facility] No health seminar on smoking cessation Last Documented On 9 10:40AM ; [facility] No health seminar on smoking cessation Last Documented On 8 1:06PM ; [facility] Medical Equipment - Implanted Devices Includes: Current and historical Devices No Medical Equipment Recorded Medications Includes: Current and historical Medications Current Medications (continue as prescribed) Colestipol HCl 5 GM Oral Packet 04/14/2024 Provider: Diagnosis: Last Documented On 4 11:25AM By Carla Hall ; [facility] Protonix 20 MG Oral Tablet Delayed Release 06/16/2022 Provider: Diagnosis: Last Documented On 3 4:00PM By Elif Chicas ; [facility] Flecainide Acetate 100 MG Oral Tablet 06/16/2022 Pro vider: Diagnosis: Last Documented On 3 4:01PM By Elif Chicas ; [facility] Metoprolol Succinate ER 25 M G Oral Tablet Extended Release 24 Hour 06/12/2022 Provider: Diagnosis: Last Documented On 3 4:00PM By Elif Chicas ; [facility] predniSONE 10 MG Oral Tablet 05/02/2022 Provider: FATOUMATA LESLIE MD Diagnosis: Last Documented On 3 4:00PM By Elif Chicas ; [facility] Lagevrio 200 MG Oral Capsule 04/22/2022 Provider: FATOUMATA LESLIE MD Diagnosis: Last Documented On 3 4:00PM By Elif Chicas ; [facility] Lagevrio 200 MG Oral Capsule 04/22/2022 Provider: FATOUMATA LESLIE MD Diagnosis: Last Documented On 3 4:00PM By Elif Chicas ; [facility] Mupirocin 2% External Ointment 04/16/2022 Provider: Eliseo Cuevas MD Diagnosis: three times a day Apply to n ostrils 3 time a day 5 days prior to surgery. Last Documented On 2 2:50PM By Gilda Kamara ; [facility] MegaRed [place]-3 Krill Oil 350 MG Oral Capsule 10/26/19 21 Provider: Diagnosis: Last Documented On 1 1:15PM By Betzaida Donald ; [facility] Sudafed 30 MG Oral Tablet 10/25/2020 Provider: Diagnosis: Last Documented On 1 1:15PM By Betzaida Donald ; [facility] Mucinex Allergy 180 MG Oral Tablet 10/25/2020 Provid er: Diagnosis: Last Documented On 1 1:14PM By Betzadia Donald ; [facility] Warfarin Sodium 7.5 MG Oral Tablet 10/17/2020 Provid er: Diagnosis: Last Documented On 1 2:43PM By Greer Kingston ; [facility] Ezetimibe 10 MG Oral Tablet 09/11/2020 Provider: FATOUMATA LESLIE MD Diagnosis: Last Documented On 1 1:13PM By Betzaida Donald ; [facility] Digoxin 125 MCG Oral Tablet 07/21/2020 Provider: Diagnosis: Last Documented On 1 2:44PM By Greer Kingston ; [facility] CoQ-10 10 MG Oral Capsule 10/20/2019 Provider: Diagnosis: Last Documented On 0 4:01PM By Greer Kingston ; [facility] D3-1000 25 MCG (1000 UT) Oral Capsule 10/20/2019 Pro vider: Diagnosis: Last Documented On 0 4:00PM By Greer Kingston ; [facility] Omeprazole 20 MG Oral Ta blet Delayed Release Disintegrating 10/20/2019 Provider: Diagnosis: Last Documented On 0 3:59PM By Greer Kingston ; [facility] Probiotic Maximum Strength Oral Capsule 10/20/2019 Provider: Diagnosis: Last Documented On 0 3:58PM By Greer Kingston ; [facility] Citalopram Hydrobromide 10 MG Oral Tablet 10/20/2019 Provider: Diagnosis: Last Documented On 0 3:56PM By Greer Kingston ; [facility] Flecainide Acetate 100 MG Oral Tablet 10/20/2019 Pro vider: Diagnosis: Last Documented On 0 3:55PM By Greer Kingston ; [facility] Past Medications on file oxyCODONE HCl 5 MG Oral Tablet 05/29/2022 - 06/03/2022 Provider: Eliseo ceja MD Diagnosis: 1-2 po q 4-6h Last Documented On 3 12:32PM By Hima Cuevas ; [facility] traMADol HCl 50 MG Oral Tablet 05/29/2022 - 06/03/2022 Provider: Eliseo ceja MD Diagnosis: 1-2 po q 4-6h Last Documented On 3 12:32PM By Hima Cuevas ; [facility] Lovenox 40 MG/0.4ML Injection Solution Prefilled Syringe 05/26/2022 - 05/30/2022 Provider: Eliseo ceja MD Diagnosis: 1 sub q injection 1 time day Last Documented On 3 8:35AM By Hima Cuevas ; [facility] Cefadroxil 500 MG Oral Capsule 05/21/2022 - 05/24/2022 Provider: Eliseo ceja MD Diagnosis: twice a day Last Documented On 3 12:08PM By Hima Cuevas ; [facility] Colace 100 MG Oral Capsule 05/21/2022 - 08/19/2022 Provider: Eliseo ceja MD Diagnosis: 1-2 tabs daily Last Documented On 3 12:08PM By Hima Cuevas ; [facility] traMADol HCl 50 MG Oral Tablet 05/21/2022 - 05/26/2022 Provider: Eliseo ceja MD Diagnosis: 1-2 po q 4-6h Last Documented On 3 12:08PM By Hima Cuevas ; [facility] Acetaminophen 500 MG Oral Tablet 05/21/2022 - 06/20/2022 Provider: Eliseo Cuevas MD Diagnosis: 2 three times a day Last Documented On 3 12:08PM By Hima Cuevas ; [facility] oxyCODONE HCl 5 MG Oral Tablet 05/21/2022 - 05/26/2022 Provider: Eliseo ceja MD Diagnosis: 1-2 po q 4-6h Last Documented On 3 12:08PM By Hima Cuevas ; [facility] Ondansetron HCl 4 MG Oral Tablet 05/21/2022 - 05/26/2022 Provider: Eliseo Cuevas MD Diagnosis: 9yll3-1w Last Documented On 3 12:08PM By Hima Cuevas ; [facility] Meloxicam 15 MG Oral Tablet 05/21/2022 - 06/20/2022 Provider: Eliseo ceja MD Diagnosis: once a day Last Documented On 3 12:08PM By Hima Cuevas ; [facility] HYDROcodone-Acetaminophen 7. 5-325 MG Oral Tablet 10/25/2020 - 11/14/2020 Provider: Brandon Wilks MD Diagnosis: twice a day Last Documented On 1 12:08PM By Dr. Wilks ; [facility] [place] 5-325 MG Oral Tablet 11/07/2019 - 10/25/2020 Pro vider: Brandon Wilks MD Diagnosis: twice a day and bedtime as necessary Last Documented On 1 1:11PM By Betzaida Donald ; [facility] tiZANidine HCl 2 MG Oral Tablet 10/21/2019 - Provider: FATOUMATA LESLIE MD Diagnosis: Last Documented On 1 1:11PM By Betzaida Donald ; [facility] Osteo Bi-Flex Joint Shield Oral Tablet 10/20/2019 - Provider: Diagnosis: Last Documented On 4 11:28AM By Clint Rocha ; [facility] Myrbetriq 25 MG Oral Tablet Extended Release 24 Hour 10/20/2019 - 03/03/2024 Provider: Diagnosis: Last Documented On 4 11:28AM By Clint Rocha ; [facility] MiraLax Oral Powder 10/20/2019 - 03/03/2024 Provider: Diagnosis: Last Documented On 4 11:28AM By Clint Rocha ; [facility] EQ Restore Plus Lubricant Ey e 0.5% Ophthalmic Solution 10/20/2019 - 03/03/2024 Provider: Diagnosis: Last Documented On 4 11:35AM By Clint Rocha ; [facility] Cetirizine HCl 10 MG Oral Capsule 10/20/2019 - Provider: Diagnosis: Last Documented On 1:11PM By Betzaida Donald ; [facility] Ipratropium [place] 0.03% Nasal Solution 10/20/2019 - 03/03/2024 Provider: Diagnosis: Last Documented On 4 11:28AM By Clint Rocha ; [facility] Calcium-Magnesium 100-50 MG Oral Tablet 10/20/2019 - 1 Provider: Diagnosis: Last Documented On 4 11:28AM By Clint Rocha ; [facility] [place]-3 Krill Oil 300 MG Oral Capsule 10/20/2019 - 10/25/2020 Provider: Diagnosis: Last Documented On 1 1:12PM By Betzaida Donald ; [facility] Warfarin Sodium 7.5 MG Oral Tablet 10/20/2019 - 2020 Provider: Diagnosis: Last Documented On 1 2:43PM By Greer Kingston ; [facility] Ipratropium [place] 0.06% Nasal Solution 10/20/2019 - 10/25/2020 Provider: Diagnosis: Last Documented On 1 1:12PM By Betzaida Donald ; [facility] Ezetimibe-Simvastatin 10-10 MG Oral Tablet 10/20/2019 - 10/25/2020 Provider: Diagnosis: Last Documented On 1 1:12PM By Betzaida Donald ; [facility] Metoprolol-HCTZ ER 25-12.5 M G Oral Tablet Extended Release 24 Hour 10/20/2019 - 10/25/2020 Provider: Diagnosis: Last Documented On 1 1:12PM By Betzaida Donald ; [facility] HYDROcodone-Acetaminophen 2. 5-325 MG Oral Tablet 10/18/2019 - 10/25/2020 Provider: FATOUMATA LESLIE MD Diagnosis: Last Documented On 1 1:13PM By Betzaida Donald ; [facility] [place] 5-325MG Oral Tablet 12/31/2018 - 10/20/2019 Prov ider: Les Manriquez MD Diagnosis: 1-2 p o q 6-8h Last Documented On 0 3:53PM By Greer Kingston ; [facility] [place] 5-325MG Oral Tablet 12/23/2018 - 01/22/2019 Provider: Eliseo ceja MD Diagnosis: 1-2 po q6h prn pain Last Documented On 9 3:09PM By Reanna Gutierrez ; [facility] Acetaminophen 500MG Oral Tablet 12/08/2018 - 01/07/2019 Provider: Eliseo Cuevas MD Diagnosis: 2 three times a day FOR BACON RGERY DO NOT FILL UNTIL 12/14/18 Last Documented On 9 4:10PM By Reanna Gutierrez ; [facility] traMADol HCl 50MG Oral Tablet 12/08/2018 - 12/13/2018 Provider: Eliseo ceja MD Diagnosis: 1-2 po q6h prn pain FOR BACON RGERY DO NOT FILL UNTIL 12/14/18 Last Documented On 9 4:06PM By Reanna Gutierrez ; [facility] Neurontin 300MG Oral Capsule 12/08/2018 - 03/08/2019 Provider: Eliseo ceja MD Diagnosis: 1 every bedtime FOR SURGER Y DO NOT FILL UNTIL 12/14/18 Last Documented On 9 4:05PM By Reanna Gutierrez ; [facility] Dilaudid 2MG Oral Tablet 12/08/2018 - 12/10/2018 Provi gaby: Eliseo Cuevas MD Diagnosis: 1-2 po q6h prn pain (RESCUE PAIN) FOR SURGERY DO NOT FILL UNTIL 12/14/18 Last Documented On 9 4:05PM By Reanna Gutierrez ; [facility] Colace 100MG Oral Capsule 12/08/2018 - 03/08/2019 Provider: Eliseo ceja MD Diagnosis: 1-2 tabs daily FOR SURGERY DO NOT FILL UNTIL 12/14/18 Last Documented On 9 4:10PM By Reanna Gutierrez ; [facility] Mupirocin 2% External Ointment 11/09/2018 - 11/14/2018 Provider: Eliseo ceja MD Diagnosis: Apply to nostrils 3 time a d ay 5 days prior to surgery. Last Documented On 9 10:40AM By Gilda Kamara ; [facility] Doxycycline Hyclate 100MG Oral Capsule 09/02/2018 - Provider: Diagnosis: Last Documented On 0 3:54PM By Greer Kingston ; [facility] Myrbetriq 25MG Oral Tablet E xtended Release 24 Hour 02/22/2018 - 10/20/2019 Provider: Diagnosis: Last Documented On 0 3:53PM By Greer Kingston ; [facility] [place] 7.5-325MG Oral Tablet 12/28/2017 - 10/20/2019 Pr ovider: Brandon Wilks MD Diagnosis: three times a day, for post surgical spinal fusion pain , use spinal fusion post op guideloies, this surgry hurts 2-4 weeks Last Documented On 0 3:53PM By Greer Kingston ; [facility] [place] 5-325MG Oral Tablet 12/24/2017 - 12/31/2017 Prov ider: Brandon Wilks MD Diagnosis: 1-2 po q 4-6h PRN Last Documented On 8 5:31PM By Dr. Wilks ; [facility] [place] 7.5-325 MG OR TABS 12/24/2017 - 01/03/2018 Provi gaby: Brandon Wilks MD Diagnosis: Last Documented On 8 11:35AM By Marcelle Croft ; [facility] Voltaren Gel 1% External 10/14/2017 - 12/13/2017 Provi gaby: Alanna Jensen MD Diagnosis: use as directed Last Documented On 8 10:09AM By Sayra Evans ; [facility] HM Magnesium 400MG Oral Tablet 06/09/2017 - 10/20/2019 Provider: Diagnosis: Last Documented On 0 3:53PM By Greer Kingston ; [facility] Lovenox 40MG/0.4ML Subcutaneous Solution 05/06/2017 - 05/26/2017 Provider: Alanna castaneda MD Diagnosis: use as directed/1 INJECTION PER DAY FOR 5 DAYS PRIOR TO PROCEDER & 1 INJECTION PER DAY FOR 5 DAYS AFTER PROCERDER/ Last Documented On 8 4:29PM By Sayra Evans ; [facility] Flecainide Acetate 100MG Oral Tablet 02/04/2017 - 10/02 Provider: Diagnosis: Last Documented On 0 3:53PM By Greer Kingston ; [facility] [place] 5-325 MG Tablet 10/29/2016 - 11/05/2016 Provider : Alanna Jensen MD Diagnosis: 1-2 po q 4-6h PRN Last Documented On 7 11:55AM By Camryn Paez ; [facility] Medrol 4 MG Tablet Therapy Pack 02/14/2016 - 02/20/2016 Provider: Alanna chin MD Diagnosis: use as directed by pharmacy Last Documented On 6 3:16PM By Heather Langley ; [facility] [place] 5-325 MG Tablet 12/03/2015 - 12/18/2015 Provider : Alanna Jensen MD Diagnosis: 1-2 po q 4-6h Last Documented On 6 1:26PM By Heather Langley ; [facility] Calcium Carbonate-Vitamin D3 600-400 MG-UNIT Tablet 11/16/2015 - 10/20/2019 Provider: Diagnosis: Last Documented On 0 3:53PM By Greer Kingston ; [facility] Osteo Bi-Flex Regular Strength 250-200 MG Tablet 11/16/2015 - 10/20/2019 Provider: Diagnosis: Last Documented On 0 3:53PM By Greer Kingston ; [facility] Omeprazole 20 MG Tablet, enteric coated 11/16/2015 - 10/20/2019 Provider: Diagnosis: Last Documented On 0 3:53PM By Greer Kingston ; [facility] Metoprolol Succinate ER 25 M G Tablet, extended-release 24 hour 11/16/2015 - 10/20/2019 Provider: Diagnosis: Last Documented On 0 3:53PM By Greer Kingston ; [facility] Warfarin Sodium 1 MG Tablet 11/16/2015 - 10/20/2019 Pr ovider: Diagnosis: Last Documented On 0 3:54PM By Greer Kingston ; [facility] ZyrTEC Allergy 10 MG Tablet 11/16/2015 - 10/20/2019 Pr ovider: Diagnosis: Last Documented On 0 3:54PM By Greer Kingston ; [facility] Citalopram Hydrobromide 10 MG Tablet 11/16/2015 - 10/02 Provider: Diagnosis: Last Documented On 0 3:53PM By Greer Kingston ; [facility] [place] 7.5-325 MG Tablet 11/16/2015 - 12/16/2015 Provid er: Alanna Jensen MD Diagnosis: 1 every 4 - 6 hours PO PRN Last Documented On 6 2:09PM By Lani Marquez ; [facility] Prolia 60 MG/ML Solution 11/16/2015 - 10/20/2019 Provi gaby: Diagnosis: Last Documented On 0 3:54PM By Greer Kingston ; [facility] Aspirin Adult Low Dose 81 MG Tablet, enteric coated 11/16/2015 - 06/09/2017 Provider: Diagnosis: Last Documented On 8 1:56PM By Tiffany Alegre ; [facility] Bran Fiber 500 MG Tablet 11/16/2015 - 10/20/2019 Provi gaby: Diagnosis: Last Documented On 0 3:53PM By Greer Kingston ; [facility] 4X Probiotic Tablet 11/16/2015 - 10/20/2019 Provider: Diagnosis: Last Documented On 0 3:53PM By Greer Kingston ; [facility] Krill Oil [place]-3 300 MG Capsule, conventional 0 11/16/2015 - 06/09/2017 Provider: Diagnosis: Last Documented On 8 1:57PM By Tiffany Alegre ; [facility] Voltaren 1% TD GEL 01/31/2013 - 03/02/2013 Provider: Alanna Jensen MD Diagnosis: DEGENERATIVE MIKEY NT DISEASE KNEE apply 4 grams to affected ar ea 4 times a day//ks Last Documented On 3 2:16PM By Ann Marie Sutherland ; [facility] Lortab 10-500 MG OR TABS 09/14/2012 - 09/21/2012 Provi gaby: Alanna Jensen MD Diagnosis: [id number] [employer] jsb/df Last Documented On 3 8:56AM By Jose F Gutierrez ; [facility] Lortab 10-500 MG OR TABS 08/06/2012 - 08/13/2012 Provi gaby: Alanna Jensen MD Diagnosis: [phone] [employer] jsb/df Last Documented On 3 1:59PM By Jose F Gutierrez ; [facility] Lortab 10-500 MG OR TABS 07/09/2012 - 07/16/2012 Provi gaby: Alanna Jensen MD Diagnosis: [phone] [employer] jsb Last Documented On 3 12:36PM By Jose F Gutierrez ; [facility] Lortab 10-500 MG OR TABS 07/01/2012 - 07/08/2012 Provi gaby: Alanna Jensen MD Diagnosis: [phone] [employer] df Last Documented On 3 1:53PM By Jose F Gutierrez ; [facility] Xarelto 10 MG OR TABS 06/14/2012 - 07/05/2012 Provider : Alanna Jensen MD Diagnosis: sx on 06-15-12 Last Documented On 3 1:31PM By Danielle Dobson ; [facility] Lortab 10-500 MG OR TABS 06/14/2012 - 06/21/2012 Provi gaby: Alanna Jensen MD Diagnosis: sx on 2-12-13//kw Last Documented On 3 1:31PM By Danielle Dobson ; [facility] Reclast 5 MG/100ML IV SOLN 03/10/2012 - 06/09/2017 Pro vider: Diagnosis: Last Documented On 8 1:58PM By Tiffany Alegre ; [facility] Atenolol 25 MG OR TABS 03/10/2012 - 06/09/2017 Provide r: Diagnosis: Last Documented On 8 1:59PM By Tiffany Alegre ; [facility] Zetia 10 MG OR TABS 03/10/2012 - 10/20/2019 Provider: Diagnosis: Last Documented On 0 3:50PM By Greer Kingston ; [facility] Medications Administered Includes: Administered Medications in patient's chart No Administered Medications Recorded Vital Signs Includes: Vital Signs from 08/19/2023 through 08/18/2024 Vital Name 04/14/2024 12:09P Height (in) 65 Weight (lb) 172 Body Mass Index 28.6 Body Surface Area 1.9 Note: sr Last Documented: On 04/14/2024 12:11P M ; [facility] Results Includes: Results from 08/19/2023 through 08/18/2024 No Results Recorded For Specified Dates History of Present Illness History of Present Illness not supported for this document type No History of Present Illness Recorded Social History Description Last Updated No recent change in diet 04/14/2024 Last Documented On 4 4:23PM ; [facility] Not a current smoker. 04/14/2024 Last Documented On 4 4:23PM ; [facility] Tobacco non-user 04/14/2024 Last Documented On 4 4:23PM ; [facility] Alcohol use 10/25/2020 Last Documented On 1 11:07AM ; [facility] Not using drugs 10/25/2020 Last Documented On 1 11:07AM ; [facility] Recent change in diet 10/25/2020 Last Documented On 1 11:07AM ; [facility] Non-smoker 10/17/2020 Last Documented On 1 9:12AM ; [facility] No caffeine use 10/17/2020 Last Documented On 1 9:12AM ; [facility] Not a current smoker. 10/17/2020 Last Documented On 1 9:12AM ; [facility] No tobacco use 10/31/2019 Last Documented On 0 9:14AM ; [facility] Not a current smoker 10/31/2019 Last Documented On 0 9:14AM ; [facility] Not exercising regularly 10/31/2019 Last Documented On 0 9:14AM ; [facility] Smoking status : Never smoker 10/31/2019 Last Documented On 0 9:14AM ; [facility] Procedures and Surgical History Includes: Procedures from 08/19/2023 through 08/18/2024 Procedures Code Diagnosis Performing Provider Service Location Service Date X-RAY EXAM OF WRIST 2 VIEWS (LEFT) 79016 Primary osteoarthritis, left wrist, Unil primary osteoarth of first carpometacarp joint, l hand Ceci Santos [facility] 03/03/2024 Last Documented On 4 3:50PM ; [facility] X-RAY EXAM OF WRIST 2 VIEWS (RIGHT) 30829 Primary osteoarthritis, right wrist, Unil primary osteoarth of first carpometacarp joint, r hand Ceci Santos APRN [facility] 03/03/2024 Last Documented On 4 3:50PM ; [facility] Triamcinolone/Kenalog, 10mg per cc [id number] Unil primary osteoarth of first carpometacarp joint, l hand, Primary osteoarthritis, right wrist Ceci Santos APRN [facility] 03/03/2024 Last Documented On 4 3:50PM ; [facility] DRAIN/INJECT, JOINT/BURSA (Distinct procedure, LEFT) 80998 Unil primary osteoarth of first carpometacarp joint, l hand Ceci Santos APRN [facility] 03/03/2024 Last Documented On 4 3:50PM ; [facility] DRAIN/INJECT, JOINT/BURSA (RIGHT) Primary osteoarthritis, right wrist Ceci Omar Santos APRN [facility] 03/03/2024 Last Documented On 4 3:50PM ; [facility] Surgical History Last Updated History of back surgery 11/2019-Kypho T1 2 10/17/2020 Last Documented On 1 9:12AM ; [facility] History of heart surgery ablation 2017 0 10/31/2019 Last Documented On 0 9:14AM ; [facility] History of total hip replacement left hi p 201810/31/2019 Last Documented On 0 9:14AM ; [facility] History of total knee arthroplasty right knee 201210/31/2019 Last Documented On 0 9:14AM ; [facility] History of hysterectomy 10/16/2014 Last Documented On 5 9:01AM ; [facility] Medical History Includes: Medical History in patient's chart Description Last Updated Recent immunization for flu 02/01/2022 1 06/15/2023 Last Documented On 4 4:23PM ; [facility] Recent immunization for pneumococcal pne umonia 2014 04/14/2024 Last Documented On 4 4:23PM ; [facility] History of Irregular Heartbeat A-fib; ep isode after TKA- cadiovert needed 06/16/2022 Last Documented On 3 4:10PM ; [facility] blood transfusions 10/25/2020 Last Documented On 1 11:07AM ; [facility] Arthritis 10/25/2020 Last Documented On 1 11:07AM ; [facility] Heartburn / Acid Reflux 10/25/2020 Last Documented On 1 11:07AM ; [facility] History of Blood Clots 10/25/2020 Last Documented On 1 11:07AM ; [facility] History of Blood Transfusion 10/25/2020 Last Documented On 1 11:07AM ; [facility] History of Cancer 10/25/2020 Last Documented On 1 11:07AM ; [facility] History of Fractures 10/25/2020 Last Documented On 1 11:07AM ; [facility] History of heart disease 10/25/2020 Last Documented On 1 11:07AM ; [facility] Hypertension 10/25/2020 Last Documented On 1 11:07AM ; [facility] Irregular Heartbeat 10/25/2020 Last Documented On 11:07AM ; [facility] Past Surgical History: wrist repair ~hand sx ~gallstone sx 2011 ~mastectomy and reconstruction ~colonoscopy 2018 10/25/2020 Last Documented On 1 11:07AM ; [facility] Previous Fractures 10/25/2020 Last Documented On 1 11:07AM ; [facility] Sleep Apnea 10/25/2020 Last Documented On 1 11:07AM ; [facility] Use of CPAP 10/25/2020 Last Documented On 1 11:07AM ; [facility] Back surgery 12/15/2017 L4-5 Posterior Decompression and Fusion @ E ~11/07/2019 T12 Kyphyoplasty 10/25/2020 Last Documented On 1 11:07AM ; [facility] Heart surgery pacemaker 12/2019 ~Afib ab lation 10/25/2020 Last Documented On 1 11:07AM ; [facility] History of Gallbladder 10/25/2020 Last Documented On 1 11:07AM ; [facility] Hysterectomy 10/25/2020 Last Documented On 1 11:07AM ; [facility] Total hip replacement 12/2018-Left hip 0 10/17/2020 Last Documented On 1 9:12AM ; [facility] A previous fracture 10/31/2019 Last Documented On 0 9:14AM ; [facility] Gallbladder disease 2018 10/31/2019 Last Documented On 0 9:14AM ; [facility] History of diverticulitis of colon 11/15 Last Documented On 6 1:39PM ; [facility] History of osteoporosis 11/16/2015 Last Documented On 6 1:39PM ; [facility] A history of cancer 10/16/2014 Last Documented On 5 9:01AM ; [facility] Arthritic joint problems 10/16/2014 Last Documented On 5 9:01AM ; [facility] Family History Includes: Family History in patient's chart Description Last Updated Family history of cancer mother ~father 11/16/2015 Last Documented On 6 1:39PM ; [facility] Family history of diabetes mellitus moth er 11/16/2015 Last Documented On 6 1:39PM ; [facility] Family history of heart disease mother ~ father 11/16/2015 Last Documented On 6 1:39PM ; [facility] Family history of hypertension mother ~f ather 11/16/2015 Last Documented On 6 1:39PM ; [facility] Family history of osteoporosis mother Last Documented On 6 1:39PM ; [facility] Family history of rheumatoid arthritis m other 11/16/2015 Last Documented On 6 1:39PM ; [facility] Family history of thromboembolic disease mother 11/16/2015 Last Documented On 6 1:39PM ; [facility] Maternal history of hypertension 015 Last Documented On 5 9:01AM ; [facility] Maternal history of osteoporosis 015 Last Documented On 5 9:01AM ; [facility] Review of Systems Review of Systems not supported for this document type No Review of Systems Recorded Mental Status Description No anxiety Functional Status No Functional Status Recorded Physical Exam Physical Exam not supported for this document type No Physical Exam Recorded Immunizations Includes: Immunizations in patient's chart Vaccine Dose # Date Site Reaction(s) Status Source Influenza 1 02/08/2018 Complete (Reported) Patient Last Documented On 0 3:13PM ; [facility] Influenza 2 02/01/2022 Complete (Reported) Patient Last Documented On 2 1:10PM ; [facility] PCV (Pneumovax 23) 1 2013 Complete ( Reported) Patient Last Documented On 2 1:10PM ; [facility] PCV (Pneumovax 23) 2 04/17/2022 Complete (Refused - Patient objection) [facility] Last Documented On 2 1:10PM ; [facility] Allergies Includes: Active, inactive, and resolved Allergies Substance Type Reaction Onset Date Resolved Date Statu s Sulfa Antibiotics Allergy 06/09/2017 A ctive Last Documented On 4 12:09PM ; [facility] Statins Support Allergy 06/09/2017 Act citlalli Last Documented On 4 12:09PM ; [facility] Percocet Allergy 03/10/2012 Active Last Documented On 4 12:09PM ; [facility] Bactrim Allergy 11/16/2015 Active Last Documented On 4 12:09PM ; [facility] Encounters Includes: Encounters from 08/19/2023 through 08/18/2024 Encounter Provider Location Date Check-In Time Check-Out Time Diagnosis Follow Up Ceci Santos APRN [facility] 4 11:15AM 12:07PM Overweight Follow Up Ceci Santos APRN [facility] 4 11:24AM 12:17PM Insurance Includes: Active Insurance Policies Plan Name Member ID Group # Subscriber Relationship Effect citlalli Dates 1 - Medicare Part B of [place] [id number] Luz Skaggs Self 04/03/2007 - Unknown 2 - [facility] [id number] PLAN F Luz Skaggs Self 2011 - Unknown Clinical Notes Includes: Signed Clinical Notes starting from 04/17/2022 * Progress note Date Encounter Last Documented by 04/14/2024 Follow Up Last documented on 04/14/2024; 4:23 PM, Ceci Santos APRN; [facility] Active Problems & Conditions - Joint Pain in the Left Hip - Joint Pain in the Left Knee - Joint Pain in the Right Knee - Joint Pain Right Thumb - Joint Pain, Localized in the Knee - Joint Pain, Localized in the Right Wrist - Midback Pain - Pain in the Lumbar Spine Chief Complaint The Chief Complaint is: R wrist pain. Referred Here Referred by PCP. History of Present Illness Luz Skaggs is an 83 year old female. - Symptoms ice, tylenol, CBD lessens pain. - Allergy list reviewed - Problem list reviewed - Medication list reviewed - Previous history of new onset pain 03/22/2022 Injury is not work related or an automotive accident - Pain is occasional (25% of the time) - Pain is throbbing - Pain is dull, aching - Yes, previous treatment. Dr. Leslie - - Review of medications documented Medications used for this condition: Patient returns today to review the findings from her RA panel. She states the cortisone injections she received her left 1st CMC joint and right wrist during her last office visit on 03/03/2024 helped some. Current Medication - Citalopram Hydrobromide 10 MG Oral Tablet take as directed 0 days, 0 refills - Colestipol HCl 5 GM Oral Packet take as directed 0 days, 0 refills - CoQ-10 10 MG Oral Capsule take as directed 0 days, 0 refills - [facility] Omeprazole 20 MG Oral Tablet Delayed Release Disintegrating take as directed 0 days, 0 refills - [facility] Probiotic Maximum Strength Oral Capsule take as directed 0 days, 0 refills - D3-1000 25 MCG (1000 UT) Oral Capsule take as directed 0 days, 0 refills - Digoxin 125 MCG Oral Tablet use as directed 90 days, 0 refills - Ezetimibe 10 MG Oral Tablet once a day 90 days, 0 refills - Flecainide Acetate 100 MG Oral Tablet take as directed 0 days, 0 refills - Flecainide Acetate 100 MG Oral Tablet take as directed 0 days, 0 refills - Lagevrio 200 MG Oral Capsule 5 days, 0 refills - Lagevrio 200 MG Oral Capsule 5 days, 0 refills - MegaRed [place]-3 Krill Oil 350 MG Oral Capsule once a day 0 days, 0 refills - Metoprolol Succinate ER 25 MG Oral Tablet Extended Release 24 Hour take as directed 90 days, 0 refills - Mucinex Allergy 180 MG Oral Tablet once a day 0 days, 0 refills - Mupirocin 2% External Ointment three times a day Apply to nostrils 3 time a day 5 days prior to surgery., 5 days, 0 refills - predniSONE 10 MG Oral Tablet 7 days, 0 refills - Protonix 20 MG Oral Tablet Delayed Release use as directed 0 days, 0 refills - Sudafed 30 MG Oral Tablet 0ffv6-2s 0 days, 0 refills - Warfarin Sodium 7.5 MG Oral Tablet once a day 0 days, 0 refills Past Medical/Surgical History Reported: Immunization History: Recent immunization for flu 02/01/2022 and for pneumococcal pneumonia 2013. Social History Not a current smoker. Current diet: No recent change in diet. Tobacco use: Tobacco non-user. Allergies - Bactrim - Percocet - Statins Support - Sulfa Antibiotics Review Of Systems Systemic: Not feeling tired, no recent weight loss, and no recent weight gain. Head: No headache and no sinus pain. Eyes: No vision problems, no Cataracts, no Glasses/Contacts, and no Glaucoma. Otolaryngeal: No hearing loss and no tinnitus. Cardiovascular: No chest pain or discomfort, no palpitations, no Hypertension, and no High Cholesterol. Pulmonary: No daytime asthma symptoms and no chronic cough. No wheezing. Gastrointestinal: No heartburn and no abdominal pain. No Indigestion, no Peptic Ulcer, no GI Stomach Bleed, no Ulcers, and no Acid Reflux. Endocrine: No hot flashes, no muscle weakness, no Diabetes, no Hypothyroid, and no Hyperthyroid. Hematologic: No easy bleeding, no tendency for easy bruising, and no Anemia. Musculoskeletal: No Arthritis and no lower back pain. No soft tissue swelling and no localized joint pain. Neurological: No dizziness, no convulsions, and no numbness. Psychological: No anxiety, no emotional lability, no depression, and no insomnia. Not crying for no reason. Skin: No dry skin. No Ulcers, no Scars, and no rash. Allergic and Immunologic: No complaint of seasonal allergic reaction. Physical Findings - Vitals taken 04/14/2024 12:09 pm sr Height 65 in Weight 172 lbs Body Mass Index 28.6 kg/m2 Body Surface Area 1.9 m2 Standard Measurements: - Patient was overweight. The patient is awake alert oriented in time place and person. Is in no acute distress. Has normal mood and affect. Is neatly dressed. Has normal gait and station. Pupils are equal and react to light normally. Eyes move normally. Mucous membranes are moist. The patient has no trouble with speech. The patient is afebrile. On exam, bilateral upper extremities are pink and warm with brisk cap refill. She is non-tender to palpation over the left 1st CMC joint. She has a positive grind test for crepitus. She is non-tender to palpation along the ulnar aspect of the right wrist. She has good ROM in both hands and able to make a fist bilaterally. Tests RA panel drawn on 03/03/2024 reveals an elevated ADAM 1:40, elevated rheumatoid factor 14.2, and elevated uric acid 8.1. Assessment - Overweight 1. 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 Ulnar sided right wrist pain 3. Elevated RA panel Previous Tests Imaging: X-Ray: An X-ray was performed. Counseling/Education - Tobacco non-user - Use of tobacco assessment performed - Lose weight Plan StartCited - Other Therapy/Occupational Therapy: Wrist Instructions: See PT order attached EndCited - Patient screened for future fall risk: documentation of any fall with injury in past year Fall Risk Assessment: This patient has been identified as a fall risk. Balance/gait along with postural blood pressure, vision and home fall hazards have been assessed. Medications have been reviewed, and recommendations made with regard to contributing factors for future falls. Plan of care: Consideration of vitamin D supplementation along with balance and strength training with consideration for formal physical therapy has been discussed with the patient. 1. Patient's RA panel is reviewed with her. She is referred to [facility] for her elevated rheumatoid factor, ADAM, and uric acid. 2. She will follow up in our hand clinic as needed. Notes This dictation was done with voice recognition software and may contain errors and omissions. Practice Management Use of tobacco assessment performed and patient screened for future fall risk documentation of any fall with injury in past year. Care Team - FATOUMATA LESLIE MD - [facility] Health Reminders - Assess BMI satisfied 04/14/2024. - Assess Tobacco Use satisfied 04/14/2024. * Progress note Date Encounter Last Documented by 03/03/2024 Follow Up Last documented on 03/10/2024; 4:11 PM, Ceci Santos APRN; [facility] Active Problems & Conditions - Joint Pain in the Left Hip - Joint Pain in the Left Knee - Joint Pain in the Right Knee - Joint Pain Right Thumb - Joint Pain, Localized in the Knee - Joint Pain, Localized in the Right Wrist - Midback Pain - Pain in the Lumbar Spine History of Present Illness Luz Skaggs is an 83 year old female. - Allergy list reviewed - Problem list reviewed - Medication list reviewed Patient presents today with left thumb pain and right wrist pain. She denies injury. She states she knows she has arthritis. She was given an order to have a RA panel drawn during her last visit with us in 2021, but she did not have it done. She states the previous cortisone injections she received during her last office visit with us on 04/17/22 worked well. Current Medication - Citalopram Hydrobromide 10 MG Oral Tablet take as directed 0 days, 0 refills - CoQ-10 10 MG Oral Capsule take as directed 0 days, 0 refills - [facility] Omeprazole 20 MG Oral Tablet Delayed Release Disintegrating take as directed 0 days, 0 refills - [facility] Probiotic Maximum Strength Oral Capsule take as directed 0 days, 0 refills - D3-1000 25 MCG (1000 UT) Oral Capsule take as directed 0 days, 0 refills - Digoxin 125 MCG Oral Tablet use as directed 90 days, 0 refills - Ezetimibe 10 MG Oral Tablet once a day 90 days, 0 refills - Flecainide Acetate 100 MG Oral Tablet take as directed 0 days, 0 refills - Flecainide Acetate 100 MG Oral Tablet take as directed 0 days, 0 refills - Lagevrio 200 MG Oral Capsule 5 days, 0 refills - Lagevrio 200 MG Oral Capsule 5 days, 0 refills - MegaRed [place]-3 Krill Oil 350 MG Oral Capsule once a day 0 days, 0 refills - Metoprolol Succinate ER 25 MG Oral Tablet Extended Release 24 Hour take as directed 90 days, 0 refills - Mucinex Allergy 180 MG Oral Tablet once a day 0 days, 0 refills - Mupirocin 2% External Ointment three times a day Apply to nostrils 3 time a day 5 days prior to surgery., 5 days, 0 refills - predniSONE 10 MG Oral Tablet 7 days, 0 refills - Protonix 20 MG Oral Tablet Delayed Release use as directed 0 days, 0 refills - Sudafed 30 MG Oral Tablet 6int3-4j 0 days, 0 refills - Warfarin Sodium 7.5 MG Oral Tablet once a day 0 days, 0 refills Past Medical/Surgical History Reported: History of Fractures and Use of CPAP. Medical: Gallbladder disease 2017, joint problems arthritic, a fracture, and cancer. Immunization History: Recent immunization for flu 02/01/2022 and for pneumococcal pneumonia 2013. Diagnoses: Heart disease. History of Blood Clots History of Blood Transfusion History of Cancer Irregular Heartbeat. Irregular Heartbeat A-fib; episode after TKA- cadiovert needed. Sleep Apnea Heartburn / Acid Reflux Hypertension. Diverticulitis of colon. Osteoporosis. Arthritis Blood transfusions. Surgical: - Heart surgery ablation 2016 - Heart surgery pacemaker 12/2019 Afib ablation - Past Surgical History: wrist repair hand sx gallstone sx 2011 mastectomy and reconstruction colonoscopy 2018 - Hysterectomy - Hysterectomy - History of Gallbladder - Previous Fractures - Back surgery 11/2019-Kypho T12 - Back surgery 12/15/2017 L4-5 [place] [facility] [place] T12 Kyphyoplasty - Total hip replacement left hip 2018 - Total hip replacement 12/2018-Left hip - Total knee arthroplasty right knee 2012 Social History Not a current smoker. Not a current smoker. Current diet: Recent change in diet. No recent change in diet. Caffeine use: No caffeine use. Tobacco use: No tobacco use and not a current smoker. Tobacco non-user and non-smoker. Smoking status: Never smoker. Alcohol: Alcohol use. Drug Use: Not using drugs. Habits: Not exercising regularly. Allergies - Bactrim - Percocet - Statins Support - Sulfa Antibiotics Family History Cancer mother father Heart disease mother father Systemic hypertension mother father Thromboembolic disease mother Osteoporosis mother Diabetes mellitus mother Rheumatoid arthritis mother Maternal: Systemic hypertension Osteoporosis Physical Findings The patient is awake alert oriented in time place and person. Is in no acute distress. Has normal mood and affect. Is neatly dressed. Has normal gait and station. Pupils are equal and react to light normally. Eyes move normally. Mucous membranes are moist. The patient has no trouble with speech. The patient is afebrile. On exam, bilateral upper extremities are pink warm with brisk cap refill. She is tender to palpation over the left 1st CMC joint. She has a positive grind test with pain and crepitus. She is tender to palpation along the ulnar aspect of the right wrist just distal to the ulnar styloid. X-ray findings: 2 views taken of both wrists are reviewed and show degenerative changes at bilateral 1st CMC joints and bilateral STT joints. Assessment 1. Ulnar sided right wrist pain 2. Bilateral STT joint OA 3. 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 Plan 1. Patient's diagnoses and x-rays are reviewed with her. Conservative treatment is recommended and she is agreeable. 2. Carpometacarpal joint injection: The patient's left hand and thumb and wrist are prepped with alcohol swab and 5 mg of Kenalog diluted in 1 mL of lidocaine 2% are injected into the carpometacarpal joint the patient tolerates this well. 3. Right wrist injection the patient's wrist is prepped with an alcohol swab 5 mg of Kenalog in 1 mL of 2% lidocaine are instilled into the ulnar aspect of the wrist just distal to the ulnar styloid over the point of maximal tenderness using a 27- gauge needle and a 3 mL syringe, the needle is withdrawn the patient tolerates this well. 4. She is given an order to have a RA panel drawn. 5. She will follow up in 6 weeks for re-evaluation. We will review the RA panel with her and assess her response to the cortisone injections given today. Notes This dictation was done with voice recognition software and may contain errors and omissions. Care Team - FATOUMATA LESLIE MD - SAW GRINDER
--- OUTSIDE RECORDS SUMMARY | 2024-08-18 14:56 | XMS_ITS | Clinical Summary ---
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 Name Role Phone JOSHUA LESLIE MDGHTheo Blanco Primary Care Provider [phone] Camila MORALEZ, Alanna Bowen Unavailable [phone] Reason for Visit and Chief Complaint Follow Up Problems Includes: Problems addressed during this encounter and other active Problems All Visits Onset Date Resolved Date Provider Condition S tatus Joint Pain, Localized in the Right Wrist 04/17/2022 Ceci Santos APRN Active Last Documented On 2 1:05PM ; [facility] Joint Pain Right Thumb 04/17/2022 Ceci griffin APRN Active Last Documented On 2 1:05PM ; [facility] Midback Pain 10/17/2020 Brandon Wilks MD Acti ve Last Documented On 1 2:32PM ; [facility] Joint Pain in [...] Active Last Documented On 6 1:09PM ; [facility] Joint Pain, Localized in the Knee 03/10/2012 Chelle tomeka Jensen MD Active Last Documented On 2 10:37AM ; [facility] Plan of Treatment 1. Patient's diagnoses and x-rays are reviewed [...] response to the cortisone injections given today. - Last Documented On 03/10/2024 4:11PM ; [facility] Assessments Includes: Assessments from this encounter Findings 1. Ulnar sided right wrist pain - Last Documented On 03/10/2024 4:11PM ; [facility] 2. Bilateral STT joint OA - Last Documented On 03/10/2024 4:11PM ; [facility] 3. 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 - Last Documented On 03/10/2024 4:11PM ; [facility] Medical Equipment - Implanted Devices Includes: Current Devices No Medical Equipment Recorded Medications Includes: Medications discussed during this encounter and other current Medications Discontinued / Stopped on this date on 10/20/2019 Osteo Bi-Flex Joint Shield Oral Tablet Pr ovider: Diagnosis: Last Documented On 4 11:28AM By Clint Rocha ; [facility] Myrbetriq 25 MG Oral Tablet Extended Release 24 Hour Provider: Diagnosis: Last Documented On 4 11:28AM By Clint Stephens [facility] MiraLax Oral Powder Provider: Diagnosis: Last Documented On 4 11:28AM By Clint Rocha ; [facility] EQ Restore Plus Lubricant Eye 0.5% Ophthalmic Solution Provider: Diagnosis: Last Documented On 4 11:35AM By Clint Rocha ; [facility] Ipratropium Godley 0.03% Nasal Solution Provider: Diagnosis: Last Documented On 4 11:28AM By Clint Rocha ; [facility] Calcium-Magnesium 100-50 MG Oral Tablet P rovider: Diagnosis: Last Documented On 4 11:28AM By Clint Rocha ; [facility] Current Medications (continue as prescribed) Colestipol HCl 5 GM Oral Packet 04/14/2024 Provider: Diagnosis: Last Documented On 4 11:25AM By Carla Hall ; [facility] Protonix 20 MG Oral Tablet Delayed Release 06/16/2022 Provider: Diagnosis: Last Documented On 3 4:00PM By Elif Chicas ; [facility] Flecainide Acetate 100 MG Oral Tablet 06/16/2022 Pro vider: Diagnosis: Last Documented On 3 4:01PM By Elif Chicas ; [facility] Metoprolol Succinate ER 25 M G Oral Tablet Extended Release 24 Hour 06/12/2022 Provider: Diagnosis: Last Documented On 3 4:00PM By Elif Chicas ; [facility] predniSONE 10 MG Oral Tablet 05/02/2022 Provider: FATOUMATA LESLIE MD Diagnosis: Last Documented On 3 4:00PM By Elif Chicas ; [facility] Lagevrio 200 MG Oral Capsule 04/22/2022 Provider: FATOUMATA LESLIE MD Diagnosis: Last Documented On 3 4:00PM By Elif Chicas ; [facility] Lagevrio 200 MG Oral Capsule 04/22/2022 Provider: FATOUMATA LESLIE MD Diagnosis: Last Documented On 3 4:00PM By Elif Chicas ; [facility] Mupirocin 2% External Ointment 04/16/2022 Provider: Eliseo Cuevas MD Diagnosis: three times a day Apply to n ostrils 3 time a day 5 days prior to surgery. Last Documented On 2 2:50PM By Glida Kamara ; [facility] MegaRed [place]-3 Krill Oil 350 MG Oral Capsule 10/26/19 21 Provider: Diagnosis: Last Documented On 1 1:15PM By Betzaida Donald ; [facility] Sudafed 30 MG Oral Tablet 10/25/2020 Provider: Diagnosis: Last Documented On 1 1:15PM By Betzaida Donald ; [facility] Mucinex Allergy 180 MG Oral Tablet 10/25/2020 Provid er: Diagnosis: Last Documented On 1 1:14PM By Betzaida Donald ; [facility] Warfarin Sodium 7.5 MG Oral Tablet 10/17/2020 Provid er: Diagnosis: Last Documented On 1 2:43PM By Greer Kingston ; [facility] Ezetimibe 10 MG Oral Tablet 09/11/2020 Provider: FATOUMATA LESLIE MD Diagnosis: Last Documented On 1 1:13PM By Betzaida Donald ; [facility] Digoxin 125 MCG Oral Tablet 07/21/2020 Provider: Diagnosis: Last Documented On 1 2:44PM By Greer Kingston ; [facility] CoQ-10 10 MG Oral Capsule 10/20/2019 Provider: Diagnosis: Last Documented On 0 4:01PM By Greer Kingston ; [facility] D3-1000 25 MCG (1000 UT) Oral Capsule 10/20/2019 Pro vider: Diagnosis: Last Documented On 0 4:00PM By Greer Kingston ; [facility] Omeprazole 20 MG Oral Ta blet Delayed Release Disintegrating 10/20/2019 Provider: Diagnosis: Last Documented On 0 3:59PM By Greer Kingston ; [facility] Probiotic Maximum Strength Oral Capsule 10/20/2019 Provider: Diagnosis: Last Documented On 0 3:58PM By Greer Kingston ; [facility] Citalopram Hydrobromide 10 MG Oral Tablet 10/20/2019 Provider: Diagnosis: Last Documented On 0 3:56PM By Greer Kingston ; [facility] Flecainide Acetate 100 MG Oral Tablet 10/20/2019 Pro vider: Diagnosis: Last Documented On 0 3:55PM By Greer Kingston ; [facility] Past Medications on file oxyCODONE HCl 5 MG Oral Tablet 05/29/2022 - 06/03/2022 Provider: Eliseo ceja MD Diagnosis: 1-2 po q 4-6h Last Documented On 3 12:32PM By Hima Cuevas ; [facility] traMADol HCl 50 MG Oral Tablet 05/29/2022 - 06/03/2022 Provider: Eliseo ceja MD Diagnosis: 1-2 po q 4-6h Last Documented On 3 12:32PM By Hima Cuevas ; [facility] Lovenox 40 MG/0.4ML Injection Solution Prefilled Syringe 05/26/2022 - 05/30/2022 Provider: Eliseo ceja MD Diagnosis: 1 sub q injection 1 time day Last Documented On 3 8:35AM By Hima Cuevas ; [facility] Cefadroxil 500 MG Oral Capsule 05/21/2022 - 05/24/2022 Provider: Eliseo ceja MD Diagnosis: twice a day Last Documented On 3 12:08PM By Hima Cuevas ; [facility] Colace 100 MG Oral Capsule 05/21/2022 - 08/19/2022 Provider: Eliseo ceja MD Diagnosis: 1-2 tabs daily Last Documented On 3 12:08PM By Hima Cuevas ; [facility] traMADol HCl 50 MG Oral Tablet 05/21/2022 - 05/26/2022 Provider: Eliseo ceja MD Diagnosis: 1-2 po q 4-6h Last Documented On 3 12:08PM By Hima Cuevas ; [facility] Acetaminophen 500 MG Oral Tablet 05/21/2022 - 06/20/2022 Provider: Eliseo Cuevas MD Diagnosis: 2 three times a day Last Documented On 3 12:08PM By Hima Cuevas ; [facility] oxyCODONE HCl 5 MG Oral Tablet 05/21/2022 - 05/26/2022 Provider: Eliseo ceja MD Diagnosis: 1-2 po q 4-6h Last Documented On 3 12:08PM By Hima Cuevas ; [facility] Ondansetron HCl 4 MG Oral Tablet 05/21/2022 - 05/26/2022 Provider: Eliseo Cuevas MD Diagnosis: [id number] Last Documented On 3 12:08PM By Hima Cuevas ; [facility] Meloxicam 15 MG Oral Tablet 05/21/2022 - 06/20/2022 Provider: Eliseo ceja MD Diagnosis: once a day Last Documented On 3 12:08PM By Hima Cuevas ; [facility] HYDROcodone-Acetaminophen 7. 5-325 MG Oral Tablet 10/25/2020 - 11/14/2020 Provider: Brandon Wilks MD Diagnosis: twice a day Last Documented On 1 12:08PM By Dr. Wilks ; [facility] [place] 5-325MG Oral Tablet 12/23/2018 - 01/22/2019 Provider: Eliseo ceja MD Diagnosis: 1-2 po q6h prn pain Last Documented On 9 3:09PM By Reanna Gutierrez ; [facility] Acetaminophen 500MG Oral Tablet 12/08/2018 - 01/07/2019 Provider: Eliseo Cuevas MD Diagnosis: 2 three times a day FOR BACON RGERY DO NOT FILL UNTIL 12/14/18 Last Documented On 9 4:10PM By Reanna Gutierrez ; [facility] traMADol HCl 50MG Oral Tablet 12/08/2018 - 12/13/2018 Provider: Eliseo ceja MD Diagnosis: 1-2 po q6h prn pain FOR BACON RGERY DO NOT FILL UNTIL 12/14/18 Last Documented On 9 4:06PM By Reanna Gutierrez ; [facility] Neurontin 300MG Oral Capsule 12/08/2018 - 03/08/2019 Provider: Eliseo ceja MD Diagnosis: 1 every bedtime FOR SURGER Y DO NOT FILL UNTIL 12/14/18 Last Documented On 9 4:05PM By Reanna Gutierrez ; [facility] Dilaudid 2MG Oral Tablet 12/08/2018 - 12/10/2018 Provi gaby: Eliseo Cuevas MD Diagnosis: 1-2 po q6h prn pain (RESCUE PAIN) FOR SURGERY DO NOT FILL UNTIL 12/14/18 Last Documented On 9 4:05PM By Reanna Gutierrez ; [facility] Colace 100MG Oral Capsule 12/08/2018 - 03/08/2019 Provider: Eliseo ceja MD Diagnosis: 1-2 tabs daily FOR SURGERY DO NOT FILL UNTIL 12/14/18 Last Documented On 9 4:10PM By Reanna Gutierrez ; [facility] Mupirocin 2% External Ointment 11/09/2018 - 11/14/2018 Provider: Eliseo ceja MD Diagnosis: Apply to nostrils 3 time a d ay 5 days prior to surgery. Last Documented On 9 10:40AM By Gilda Kamara ; [facility] [place] 5-325MG Oral Tablet 12/24/2017 - 12/31/2017 Prov ider: Brandon Wilks MD Diagnosis: 1-2 po q 4-6h PRN Last Documented On 8 5:31PM By Dr. Wilks ; [facility] [place] 7.5-325 MG OR TABS 12/24/2017 - 01/03/2018 Provi gaby: Brandon Wilks MD Diagnosis: Last Documented On 8 11:35AM By Marcelle Croft ; [facility] Voltaren Gel 1% External 10/14/2017 - 12/13/2017 Provi gaby: Alanna Jensen MD Diagnosis: use as directed Last Documented On 8 10:09AM By Sayra Evans ; [facility] Lovenox 40MG/0.4ML Subcutaneous Solution 05/06/2017 - 05/26/2017 Provider: Alanna castaneda MD Diagnosis: use as directed/1 INJECTION PER DAY FOR 5 DAYS PRIOR TO PROCEDER & 1 INJECTION PER DAY FOR 5 DAYS AFTER PROCERDER/ Last Documented On 8 4:29PM By Sayra Evans ; [facility] [place] 5-325 MG Tablet 10/29/2016 - 11/05/2016 Provider : Alanna Jensen MD Diagnosis: 1-2 po q 4-6h PRN Last Documented On 7 11:55AM By Camryn Paez ; [facility] Medrol 4 MG Tablet Therapy Pack 02/14/2016 - 02/20/2016 Provider: Alanna chin MD Diagnosis: use as directed by pharmacy Last Documented On 6 3:16PM By Heather Langley ; [facility] [place] 5-325 MG Tablet 12/03/2015 - 12/18/2015 Provider : Alanna Jensen MD Diagnosis: 1-2 po q 4-6h Last Documented On 6 1:26PM By Heather Langley ; [facility] [place] 7.5-325 MG Tablet 11/16/2015 - 12/16/2015 Provid er: Alanna Jensen MD Diagnosis: 1 every 4 - 6 hours PO PRN Last Documented On 6 2:09PM By Lani Marquez ; [facility] Voltaren 1% TD GEL 01/31/2013 - 03/02/2013 Provider: Alanna Jensen MD Diagnosis: DEGENERATIVE MIKEY NT DISEASE KNEE apply 4 grams to affected ar ea 4 times a day//ks Last Documented On 3 2:16PM By Ann Marie Sutherland ; [facility] Lortab 10-500 MG OR TABS 09/14/2012 - 09/21/2012 Provi gaby: Alanna Jensen MD Diagnosis: [id number] [facility] jsb/df Last Documented On 3 8:56AM By Jose F Gutierrez ; [facility] Lortab 10-500 MG OR TABS 08/06/2012 - 08/13/2012 Provi gaby: Alanna Jensen MD Diagnosis: [phone] [facility] jsb/df Last Documented On 3 1:59PM By Jose F Gutierrez ; [facility] Lortab 10-500 MG OR TABS 07/09/2012 - 07/16/2012 Provi gaby: Alanna Jensen MD Diagnosis: [phone] [facility] jsb Last Documented On 3 12:36PM By oJse F Gutierrez ; [facility] Lortab 10-500 MG OR TABS 07/01/2012 - 07/08/2012 Provi gaby: Alanna Jensen MD Diagnosis: [phone] [facility] df Last Documented On 3 1:53PM By Jose F Gutierrez ; [facility] Xarelto 10 MG OR TABS 06/14/2012 - 07/05/2012 Provider : Alanna Jensen MD Diagnosis: sx on 06-15-12kw Last Documented On 3 1:31PM By Danielle Dobson ; [facility] Lortab 10-500 MG OR TABS 06/14/2012 - 06/21/2012 Provi gaby: Alanna Jensen MD Diagnosis: sx on 06-15-12kw Last Documented On 3 1:31PM By Danielle Dobson ; [facility] Medications Administered Includes: Administered Medications from this encounter No Administered Medications Recorded Results Includes: Results discussed during this encounter No Results Recorded For Specified Dates History of Present Illness Includes: History of Present Illness from this encounter HPI Luz Skaggs is an 83 year old [...] visit with us on 04/17/22 worked well. Social History Description Last Updated No recent change in diet 04/14/2024 Last Documented On 4 11:35AM ; [facility] Not a current smoker. 04/14/2024 Last Documented On 4 11:35AM ; [facility] Tobacco non-user 04/14/2024 Last Documented On 4 11:35AM ; [facility] Alcohol use 10/25/2020 Last Documented On 4 11:35AM ; [facility] Not using drugs 10/25/2020 Last Documented On 4 11:35AM ; [facility] Recent change in diet 10/25/2020 Last Documented On 4 11:35AM ; [facility] Non-smoker 10/17/2020 Last Documented On 4 11:35AM ; [facility] No caffeine use 10/17/2020 Last Documented On 4 11:35AM ; [facility] Not a current smoker. 10/17/2020 Last Documented On 4 11:35AM ; [facility] No tobacco use 10/31/2019 Last Documented On 4 11:35AM ; [facility] Not a current smoker 10/31/2019 Last Documented On 4 11:35AM ; [facility] Not exercising regularly 10/31/2019 Last Documented On 4 11:35AM ; [facility] Smoking status : Never smoker 10/31/2019 Last Documented On 4 11:35AM ; [facility] Procedures and Surgical History Includes: Procedures from this encounter Procedures Code Diagnosis Performing Provider Service Location Service Date DRAIN/INJECT, JOINT/BURSA (RIGHT) Primary osteoarthritis, right wrist Ceci Santos APRN [facility] 03/03/2024 Last Documented On 4 3:50PM ; [facility] DRAIN/INJECT, JOINT/BURSA (Distinct procedure, LEFT) Unil primary osteoarth of first carpometacarp joint, l hand Ceci Santos APRN [facility] 03/03/2024 Last Documented On 4 3:50PM ; [facility] Triamcinolone/Kenalog, 10mg per cc [id number] Unil primary osteoarth of first carpometacarp joint, l hand, Primary osteoarthritis, right wrist Ceciwilfred Santos APRN [facility] 03/03/2024 Last Documented On 4 3:50PM ; [facility] X-RAY EXAM OF WRIST 2 VIEWS (RIGHT) [id number] Primary osteoarthritis, right wrist, Unil primary osteoarth of first carpometacarp joint, r hand Ceci Omar Santos APRN [facility] 03/03/2024 Last Documented On 4 3:50PM ; [facility] X-RAY EXAM OF WRIST 2 VIEWS (LEFT) [id number] Primary osteoarthritis, left wrist, Unil primary osteoarth of first carpometacarp joint, l hand Ceci Omar Santos APRN [facility] 03/03/2024 Last Documented On 4 3:50PM ; [facility] Surgical History Last Updated History of back surgery 11/2019-Kypho T1 2 10/17/2020 Last Documented On 4 11:35AM ; [facility] History of heart surgery ablation 2017 0 10/31/2019 Last Documented On 4 11:35AM ; [facility] History of total hip replacement left hi p 201810/31/2019 Last Documented On 4 11:35AM ; [facility] History of total knee arthroplasty right knee 201210/31/2019 Last Documented On 4 11:35AM ; [facility] History of hysterectomy 10/16/2014 Last Documented On 4 11:35AM ; [facility] Medical History Includes: Medical History addressed during this encounter Description Last Updated Recent immunization for flu 02/01/2022 1 06/15/2023 Last Documented On 4 11:35AM ; [facility] Recent immunization for pneumococcal pne umonia 2014 04/14/2024 Last Documented On 4 11:35AM ; [facility] History of Irregular Heartbeat A-fib; ep isode after TKA- cadiovert needed 06/16/2022 Last Documented On 4 11:35AM ; [facility] blood transfusions 10/25/2020 Last Documented On 4 11:35AM ; [facility] Arthritis 10/25/2020 Last Documented On 4 11:35AM ; [facility] Heartburn / Acid Reflux 10/25/2020 Last Documented On 4 11:35AM ; [facility] History of Blood Clots 10/25/2020 Last Documented On 4 11:35AM ; [facility] History of Blood Transfusion 10/25/2020 Last Documented On 4 11:35AM ; [facility] History of Cancer 10/25/2020 Last Documented On 4 11:35AM ; [facility] History of Fractures 10/25/2020 Last Documented On 4 11:35AM ; [facility] History of heart disease 10/25/2020 Last Documented On 4 11:35AM ; [facility] Hypertension 10/25/2020 Last Documented On 4 11:35AM ; [facility] Irregular Heartbeat 10/25/2020 Last Documented On 4 11:35AM ; [facility] Past Surgical History: wrist repair ~hand sx ~gallstone sx 2011 ~mastectomy and reconstruction ~colonoscopy 2018 10/25/2020 Last Documented On 4 11:35AM ; [facility] Previous Fractures 10/25/2020 Last Documented On 4 11:35AM ; [facility] Sleep Apnea 10/25/2020 Last Documented On 4 11:35AM ; [facility] Use of CPAP 10/25/2020 Last Documented On 4 11:35AM ; [facility] Back surgery 12/15/2017 L4-5 Posterior Decompression and Fusion @ [facility] ~11/07/2019 T12 Kyphyoplasty 10/25/2020 Last Documented On 4 11:35AM ; [facility] Heart surgery pacemaker 12/2019 ~Afib ab lation 10/25/2020 Last Documented On 4 11:35AM ; [facility] History of Gallbladder 10/25/2020 Last Documented On 4 11:35AM ; [facility] Hysterectomy 10/25/2020 Last Documented On 4 11:35AM ; [facility] Total hip replacement 12/2018-Left hip 0 10/17/2020 Last Documented On 4 11:35AM ; [facility] A previous fracture 10/31/2019 Last Documented On 4 11:35AM ; [facility] Gallbladder disease 2018 10/31/2019 Last Documented On 4 11:35AM ; [facility] History of diverticulitis of colon 11/15 Last Documented On 4 11:35AM ; [facility] History of osteoporosis 11/16/2015 Last Documented On 4 11:35AM ; [facility] A history of cancer 10/16/2014 Last Documented On 4 11:35AM ; [facility] Arthritic joint problems 10/16/2014 Last Documented On 4 11:35AM ; [facility] Family History Includes: Family History addressed during this encounter Description Last Updated Family history of cancer mother ~father 11/16/2015 Last Documented On 4 11:35AM ; [facility] Family history of diabetes mellitus moth er 11/16/2015 Last Documented On 4 11:35AM ; [facility] Family history of heart disease mother ~ father 11/16/2015 Last Documented On 4 11:35AM ; [facility] Family history of hypertension mother ~f ather 11/16/2015 Last Documented On 4 11:35AM ; [facility] Family history of osteoporosis mother Last Documented On 4 11:35AM ; [facility] Family history of rheumatoid arthritis m other 11/16/2015 Last Documented On 4 11:35AM ; [facility] Family history of thromboembolic disease mother 11/16/2015 Last Documented On 4 11:35AM ; [facility] Maternal history of hypertension 015 Last Documented On 4 11:35AM ; [facility] Maternal history of osteoporosis 015 Last Documented On 4 11:35AM ; [facility] Review of Systems Includes: Review of Systems from this encounter No Review of Systems Recorded Mental Status Includes: Mental Status from this encounter No Mental Status Recorded Functional Status Includes: Functional Status from this encounter No Functional Status Recorded Physical Exam Includes: Physical Exam from this encounter Allergies Includes: Active Allergies Substance Type Reaction Onset Date Resolved Date Statu s Sulfa Antibiotics Allergy 06/09/2017 A ctive Last Documented On 4 12:09PM ; [facility] Statins Support Allergy 06/09/2017 Act citlalli Last Documented On 4 12:09PM ; [facility] Percocet Allergy 03/10/2012 Active Last Documented On 4 12:09PM ; [facility] Bactrim Allergy 11/16/2015 Active Last Documented On 4 12:09PM ; [facility] Encounters Encounter Provider Location Date Check-In Time Check- Out Time Diagnosis Follow Up Ceci Santos APRN [facility] 4 11:24AM 12:17PM Insurance Includes: Active Insurance Policies Plan Name Member ID Group # Subscriber Relationship Effect citlalli Dates 1 - Medicare Part [place] of [place] [id number] Luz Skaggs Self 04/03/2007 - Unknown 2 - [employer] [id number] PLAN F Luz Skaggs Self 2011 - Unknown Clinical Notes Includes: Clinical Notes from this encounter * Progress note Date Encounter Last Documented by 03/03/2024 Follow Up Last documented on 03/10/2024; 4:11 PM, Ceci Santos APRN; [facility] Active Problems & Conditions - Joint [...] Capsule 5 days, 0 refills - MegaRed [place]-3 Krill Oil 350 MG Oral Capsule [...] refills - Sudafed 30 MG Oral Tablet [id number] 0 days, 0 refills - Warfarin Sodium [...] gallstone sx 2011 mastectomy and reconstruction colonoscopy 2017 - Hysterectomy - Hysterectomy - History of Gallbladder - Previous Fractures - Back surgery 11/2019-Kypho T12 - Back surgery 12/15/2017 L4-5 [place] [facility] [place]12 Kyphyoplasty - Total hip replacement [...] Care Team - FATOUMATA LESLIE MD - S[employer]IOR [employer]
--- OUTSIDE RECORDS SUMMARY | 2024-08-18 14:56 | XMS_ITS | Clinical Summary ---
Author Organization [facility] Address [address] [place] [address] Phone Care Team Providers Care Inletter Name Role Phone JOSHUA LESLIE MDGHTheo Blanco Primary Care Provider [phone] Camila MORALEZ, Alanna Bowen Unavailable [phone] [...] Active Last Documented On 2 1:05PM ; [facility] Joint Pain Right Thumb 04/17/2022 Ceci griffin APRN Active Last Documented On 2 1:05PM ; [facility] Midback Pain 10/17/2020 Brandon Wilks MD Acti ve Last Documented On 1 2:32PM ; [facility] Joint Pain in the Left Knee 02/16/2020 Rachel Cuevas MD Active Last Documented On 0 1:26PM ; [facility] Joint Pain in the Right Knee 10/29/2016 James Jensen MD Active Last Documented On 7 10:32AM ; [facility] Pain in the Lumbar Spine 03/13/2016 Alanna Jensen MD Active Last Documented On 6 1:07PM ; [facility] Joint Pain in the Left Hip 03/13/2016 Alanna Jensen MD Active Last Documented On 6 1:09PM ; [facility] Joint Pain, Localized in the Knee 03/10/2012 Chelle Jensen MD Active Last Documented On 2 10:37AM ; [facility] Plan of Treatment Fall Risk Assessment: This [...] therapy has been discussed with the patient. - Last Documented On 07/07/2022 1:06PM ; [facility] overall the patient is very pleased with her knee surgery, she has some bilateral lower extremity edema that she reports as being lymphedema diagnosis in the past. Happy to give PT prescription today to help with lymphedema modalities. We will plan for follow-up 4-6 weeks for 3 month interval exam - Last Documented On 07/07/2022 1:06PM ; [facility] Pending Tests Order Diagnosis Results Due Ordering P rovider Therapy - Physical Therapy Knee 07/07/22 Hernan Gold PA-C Last Documented On 3 11:47AM ; [facility] Instructions to patient Lose weight Last Documented On 3 11:07AM ; [facility] Assessments Includes: Assessments from this encounter Findings seven-week status post left TKA - Last Documented On 07/07/2022 1:06PM ; [facility] Instructions Includes: Instructions from this encounter Instructions to patient Lose weight Last Documented On 3 11:07AM ; [facility] Medical Equipment - Implanted Devices Includes: Current Devices No Medical Equipment Recorded Medications Includes: Medications discussed during this encounter and other current Medications Current Medications (continue as prescribed) Colestipol HCl 5 GM Oral Packet 04/14/2024 Provider: Diagnosis: Last Documented On 4 11:25AM By Carla Hall ; [facility] Protonix 20 MG Oral Tablet Delayed Release 06/16/2022 Provider: Diagnosis: Last Documented On 3 4:00PM By Elif Chicas ; [facility] Flecainide Acetate 100 MG Oral Tablet 06/16/2022 Pro vider: Diagnosis: Last Documented On 3 4:01PM By Elif Chicas ; [facility] Metoprolol Succinate ER 25 M G Oral Tablet Extended Release 24 Hour 06/12/2022 Provider: Diagnosis: Last Documented On 3 4:00PM By Elif Chicas ; [facility] predniSONE 10 MG Oral Tablet 05/02/2022 Provider: FATOUMATA LESLIE MD Diagnosis: Last Documented On 3 4:00PM By Elif Chicas ; [facility] Lagevrio 200 MG Oral Capsule 04/22/2022 Provider: FATOUMATA LESLIE MD Diagnosis: Last Documented On 3 4:00PM By Elif Chicas ; [facility] Lagevrio 200 MG Oral Capsule 04/22/2022 Provider: FATOUMATA LESLIE MD Diagnosis: Last Documented On 3 4:00PM By Elif Chicas ; [facility] Mupirocin 2% External Ointment 04/16/2022 Provider: Eliseo Cuevas MD Diagnosis: three times a day Apply to n ostrils 3 time a day 5 days prior to surgery. Last Documented On 2 2:50PM By Gilda Kamara ; [facility] MegaRed Allen-3 Krill Oil 350 MG Oral Capsule 10/26/19 21 Provider: Diagnosis: Last Documented On 1 1:15PM By Betzaida Donald ; [facility] Sudafed 30 MG Oral Tablet 10/25/2020 Provider: Diagnosis: Last Documented On 1 1:15PM By Betzaida Donald ; [facility] Mucinex Allergy 180 MG Oral Tablet 10/25/2020 Provid er: Diagnosis: Last Documented On 1 1:14PM By Betzaida Donald ; [facility] Warfarin Sodium 7.5 MG Oral Tablet 10/17/2020 Provid er: Diagnosis: Last Documented On 1 2:43PM By Greer Kingston ; [facility] Ezetimibe 10 MG Oral Tablet 09/11/2020 Provider: FATOUMATA LESLIE MD Diagnosis: Last Documented On 1 1:13PM By Betzaida Donald ; [facility] Digoxin 125 MCG Oral Tablet 07/21/2020 Provider: Diagnosis: Last Documented On 1 2:44PM By Greer Kingston ; [facility], [facility] CoQ-10 10 MG Oral Capsule 10/20/2019 Provider: Diagnosis: Last Documented On 0 4:01PM By Greer Kingston ; [facility] D3-1000 25 MCG (1000 UT) Oral Capsule 10/20/2019 Pro vider: Diagnosis: Last Documented On 0 4:00PM By Greer Kingston ; [facility] Omeprazole 20 MG Oral Ta blet Delayed Release Disintegrating 10/20/2019 Provider: Diagnosis: Last Documented On 0 3:59PM By Greer Kingston ; [facility] Probiotic Maximum Strength Oral Capsule 10/20/2019 Provider: Diagnosis: Last Documented On 0 3:58PM By Greer Kingston ; [facility] Citalopram Hydrobromide 10 MG Oral Tablet 10/20/2019 Provider: Diagnosis: Last Documented On 0 3:56PM By Greer Kingston ; [facility], [facility] Flecainide Acetate 100 MG Oral Tablet 10/20/2019 Pro vider: Diagnosis: Last Documented On 0 3:55PM By Greer Kingston ; [facility] Past Medications on file oxyCODONE HCl 5 MG Oral Tablet 05/29/2022 - 06/03/2022 Provider: Eliseo ceja MD Diagnosis: 1-2 po q 4-6h Last Documented On 3 12:32PM By Hima Cuevas ; [facility] traMADol HCl 50 MG Oral Tablet 05/29/2022 - 06/03/2022 Provider: Eliseo ceja MD Diagnosis: 1-2 po q 4-6h Last Documented On 3 12:32PM By Hima Cuevas ; [facility] Lovenox 40 MG/0.4ML Injection Solution Prefilled Syringe 05/26/2022 - 05/30/2022 Provider: Eliseo ceja MD Diagnosis: 1 sub q injection 1 time day Last Documented On 3 8:35AM By Hima Cuevas ; [facility] Cefadroxil 500 MG Oral Capsule 05/21/2022 - 05/24/2022 Provider: Eliseo ceja MD Diagnosis: twice a day Last Documented On 3 12:08PM By Hima Cuevas ; [facility] Colace 100 MG Oral Capsule 05/21/2022 - 08/19/2022 Provider: Eliseo ceja MD Diagnosis: 1-2 tabs daily Last Documented On 3 12:08PM By Hima Cuevas ; [facility] traMADol HCl 50 MG Oral Tablet 05/21/2022 - 05/26/2022 Provider: Eliseo ceja MD Diagnosis: 1-2 po q 4-6h Last Documented On 3 12:08PM By Hima Cuevas ; [facility] Acetaminophen 500 MG Oral Tablet 05/21/2022 - 06/20/2022 Provider: Eliseo Cuevas MD Diagnosis: 2 three times a day Last Documented On 3 12:08PM By Hima Cuevas ; [facility] oxyCODONE HCl 5 MG Oral Tablet 05/21/2022 - 05/26/2022 Provider: Eliseo ceja MD Diagnosis: 1-2 po q 4-6h Last Documented On 3 12:08PM By Hima Cuevas ; [facility] Ondansetron HCl 4 MG Oral Tablet 05/21/2022 - 05/26/2022 Provider: Eliseo Cuevas MD Diagnosis: [id number] Last Documented On 3 12:08PM By Hima Cuevas ; [facility] Meloxicam 15 MG Oral Tablet 05/21/2022 - 06/20/2022 Provider: Eliseo ceja MD Diagnosis: once a day Last Documented On 3 12:08PM By Hima Cuevas ; [facility] HYDROcodone-Acetaminophen 7. 5-325 MG Oral Tablet 10/25/2020 - 11/14/2020 Provider: Brandon Wilks MD Diagnosis: twice a day Last Documented On 1 12:08PM By Dr. Wilks ; [facility] Kim 5-325MG Oral Tablet 12/23/2018 - 01/22/2019 Provider: Eliseo ceja MD Diagnosis: 1-2 po q6h prn pain Last Documented On 9 3:09PM By Reanna Gutierrez ; [facility] Acetaminophen 500MG Oral Tablet 12/08/2018 - 01/07/2019 Provider: Eliseo Cuevas MD Diagnosis: 2 three times a day FOR BACON RGERY DO NOT FILL UNTIL 12/14/18 Last Documented On 9 4:10PM By Reanna Gutierrez ; [facility] traMADol HCl 50MG Oral Tablet 12/08/2018 - 12/13/2018 Provider: Eliseo ceja MD Diagnosis: 1-2 po q6h prn pain FOR BACON RGERY DO NOT FILL UNTIL 12/14/18 Last Documented On 9 4:06PM By Reanna Gutierrez ; [facility] Neurontin 300MG Oral Capsule 12/08/2018 - 03/08/2019 Provider: Eliseo ceja MD Diagnosis: 1 every bedtime FOR SURGER Y DO NOT FILL UNTIL 12/14/18 Last Documented On 9 4:05PM By Reanna Gutierrez ; [facility] Dilaudid 2MG Oral Tablet 12/08/2018 - 12/10/2018 Provi gaby: Eliseo Cuevas MD Diagnosis: 1-2 po q6h prn pain (RESCUE PAIN) FOR SURGERY DO NOT FILL UNTIL 12/14/18 Last Documented On 9 4:05PM By Reanna Gutierrez ; [facility] Colace 100MG Oral Capsule 12/08/2018 - 03/08/2019 Provider: Eliseo ceja MD Diagnosis: 1-2 tabs daily FOR SURGERY DO NOT FILL UNTIL 12/14/18 Last Documented On 9 4:10PM By Reanna Gutierrez ; [facility] Mupirocin 2% External Ointment 11/09/2018 - 11/14/2018 Provider: Eliseo ceja MD Diagnosis: Apply to nostrils 3 time a d ay 5 days prior to surgery. Last Documented On 9 10:40AM By Gilda Kamara ; [facility] Kim 5-325MG Oral Tablet 12/24/2017 - 12/31/2017 Prov ider: Brandon Wilks MD Diagnosis: 1-2 po q 4-6h PRN Last Documented On 8 5:31PM By Dr. Wilks ; [facility] Kim 7.5-325 MG OR TABS 12/24/2017 - 01/03/2018 Provi gaby: Brandon Wilks MD Diagnosis: Last Documented On 8 11:35AM By Marcelle Croft ; [facility] Voltaren Gel 1% External 10/14/2017 - 12/13/2017 Provi gaby: Alanna Jensen MD Diagnosis: use as directed Last Documented On 8 10:09AM By Sayra Evans ; [facility] Lovenox 40MG/0.4ML Subcutaneous Solution 05/06/2017 - 05/26/2017 Provider: Alanna castaneda MD Diagnosis: use as directed/1 INJECTION PER DAY FOR 5 DAYS PRIOR TO PROCEDER & 1 INJECTION PER DAY FOR 5 DAYS AFTER PROCERDER/ Last Documented On 8 4:29PM By Sayra Evans ; [facility] Kim 5-325 MG Tablet 10/29/2016 - 11/05/2016 Provider : Alanna Jensen MD Diagnosis: 1-2 po q 4-6h PRN Last Documented On 7 11:55AM By Camryn Paez ; [facility] Medrol 4 MG Tablet Therapy Pack 02/14/2016 - 02/20/2016 Provider: Alanna chin MD Diagnosis: use as directed by pharmacy Last Documented On 6 3:16PM By Heather Langley ; [facility] Kim 5-325 MG Tablet 12/03/2015 - 12/18/2015 Provider : Alanna Jensen MD Diagnosis: 1-2 po q 4-6h Last Documented On 6 1:26PM By Heather Langley ; [facility] Kim 7.5-325 MG Tablet 11/16/2015 - 12/16/2015 Provid er: Alanna Jensen MD Diagnosis: 1 every 4 - 6 hours PO PRN Last Documented On 6 2:09PM By Lani Marquez ; [facility] Voltaren 1% TD GEL 01/31/2013 - 03/02/2013 Provider: Alanna Jensen MD Diagnosis: DEGENERATIVE MIKEY NT DISEASE KNEE apply 4 grams to affected ar ea 4 times a day//ks Last Documented On 3 2:16PM By Ann Marie Sutherland ; [facility] Lortab 10-500 MG OR TABS 09/14/2012 - 09/21/2012 Provi gaby: Alanna Jensen MD Diagnosis: [id number] [facility] jsb/df Last Documented On 3 8:56AM By Jose F Gutierrez ; [facility] Lortab 10-500 MG OR TABS 08/06/2012 - 08/13/2012 Provi gaby: Alanna Jensen MD Diagnosis: [phone] [facility] jsb/df Last Documented On 3 1:59PM By Jose F Gutierrez ; [facility] Lortab 10-500 MG OR TABS 07/09/2012 - 07/16/2012 Provi gaby: Alanna Jensen MD Diagnosis: [phone] [facility] jsb Last Documented On 3 12:36PM By Jose F Gutierrez ; [facility] Lortab 10-500 MG OR TABS 07/01/2012 - 07/08/2012 Provi gaby: Alanna Jensen MD Diagnosis: [phone] [facility] df Last Documented On 3 1:53PM By Jose F Gutierrez ; [facility] Xarelto 10 MG OR TABS 06/14/2012 - 07/05/2012 Provider : Alanna Jensen MD Diagnosis: sx on 06-15-12 Last Documented On 3 1:31PM By Danielle Dobson ; [facility] Lortab 10-500 MG OR TABS 06/14/2012 - 06/21/2012 Provi gaby: Alanna Jensen MD Diagnosis: sx on 06-15-12 Last Documented On 3 1:31PM By Danielle Dobson ; [facility] Medications Administered Includes: Administered Medications from this encounter No Administered Medications Recorded Vital Signs Includes: Vital Signs from this encounter Vital Name 07/07/2022 11:17A Height (in) 65 Weight (lb) 169 Body Mass Index 28.1 Body Surface Area 1.8 Note: mal Last Documented: On 07/07/2022 11:18A M ; [facility] Results Includes: Results discussed during this encounter No Results Recorded For Specified Dates History of Present Illness Includes: History of Present Illness from this encounter MAYCOL Skaggs is an 82 year old female. - Allergy list reviewed - Problem list reviewed - Medication list reviewed Social History Description Last Updated No recent change in diet 04/14/2024 Last Documented On 3 11:07AM ; [facility] Not a current smoker. 04/14/2024 Last Documented On 3 11:07AM ; [facility] Tobacco non-user 04/14/2024 Last Documented On 3 11:07AM ; [facility] Alcohol use 10/25/2020 Last Documented On 3 11:07AM ; [facility] Not using drugs 10/25/2020 Last Documented On 3 11:07AM ; [facility] Recent change in diet 10/25/2020 Last Documented On 3 11:07AM ; [facility] Non-smoker 10/17/2020 Last Documented On 3 11:07AM ; [facility] No caffeine use 10/17/2020 Last Documented On 3 11:07AM ; [facility] Not a current smoker. 10/17/2020 Last Documented On 3 11:07AM ; [facility] No tobacco use 10/31/2019 Last Documented On 3 11:07AM ; [facility] Not a current smoker 10/31/2019 Last Documented On 3 11:07AM ; [facility] Not exercising regularly 10/31/2019 Last Documented On 3 11:07AM ; [facility] Smoking status : Never smoker 10/31/2019 Last Documented On 3 11:07AM ; [facility] Procedures and Surgical History Includes: Procedures from this encounter Procedures Code Diagnosis Performing Provider Service L ocation Service Date use of tobacco assessment performed 1000F Last Documented On 3 11:07AM ; [facility] patient screened for future fall risk: documentation of any fall with injury in past year 1100F Last Documented On 3 11:07AM ; [facility] follow-up visit in one month Last Documented On 3 11:07AM ; [facility] referral to physician Last Documented On 3 11:07AM ; [facility] an X-ray was performed 92996 Last Documented On 3 11:07AM ; [facility] Surgical History Last Updated History of back surgery 11/2019-Kypho T1 2 10/17/2020 Last Documented On 3 11:07AM ; [facility] History of heart surgery ablation 2017 0 10/31/2019 Last Documented On 3 11:07AM ; [facility] History of total hip replacement left hi p 201810/31/2019 Last Documented On 3 11:07AM ; [facility] History of total knee arthroplasty right knee 201210/31/2019 Last Documented On 3 11:07AM ; [facility] History of hysterectomy 10/16/2014 Last Documented On 3 11:07AM ; [facility] Medical History Includes: Medical History addressed during this encounter Description Last Updated Recent immunization for flu 02/01/2022 1 06/15/2023 Last Documented On 3 11:07AM ; [facility] Recent immunization for pneumococcal pne umonia 2014 04/14/2024 Last Documented On 3 11:07AM ; [facility] History of Irregular Heartbeat A-fib; ep isode after TKA- cadiovert needed 06/16/2022 Last Documented On 3 11:07AM ; [facility] blood transfusions 10/25/2020 Last Documented On 3 11:07AM ; [facility] Arthritis 10/25/2020 Last Documented On 3 11:07AM ; [facility] Heartburn / Acid Reflux 10/25/2020 Last Documented On 3 11:07AM ; [facility] History of Blood Clots 10/25/2020 Last Documented On 3 11:07AM ; [facility] History of Blood Transfusion 10/25/2020 Last Documented On 3 11:07AM ; [facility] History of Cancer 10/25/2020 Last Documented On 3 11:07AM ; [facility] History of Fractures 10/25/2020 Last Documented On 3 11:07AM ; [facility] History of heart disease 10/25/2020 Last Documented On 3 11:07AM ; [facility] Hypertension 10/25/2020 Last Documented On 3 11:07AM ; [facility] Irregular Heartbeat 10/25/2020 Last Documented On 3 11:07AM ; [facility] Past Surgical History: wrist repair ~hand sx ~gallstone sx 2011 ~mastectomy and reconstruction ~colonoscopy 2018 10/25/2020 Last Documented On 3 11:07AM ; [facility] Previous Fractures 10/25/2020 Last Documented On 3 11:07AM ; [facility] Sleep Apnea 10/25/2020 Last Documented On 3 11:07AM ; [facility] Use of CPAP 10/25/2020 Last Documented On 3 11:07AM ; [facility] Back surgery 12/15/2017 L4-5 Posterior Decompression and Fusion @ [facility] ~11/07/2019 T12 Kyphyoplasty 10/25/2020 Last Documented On 3 11:07AM ; [facility] Heart surgery pacemaker 12/2019 ~Afib ab lation 10/25/2020 Last Documented On 3 11:07AM ; [facility] History of Gallbladder 10/25/2020 Last Documented On 3 11:07AM ; [facility] Hysterectomy 10/25/2020 Last Documented On 3 11:07AM ; [facility] Total hip replacement 12/2018-Left hip 0 10/17/2020 Last Documented On 3 11:07AM ; [facility] A previous fracture 10/31/2019 Last Documented On 3 11:07AM ; [facility] Gallbladder disease 2018 10/31/2019 Last Documented On 3 11:07AM ; [facility] History of diverticulitis of colon 11/15 Last Documented On 3 11:07AM ; [facility] History of osteoporosis 11/16/2015 Last Documented On 3 11:07AM ; [facility] A history of cancer 10/16/2014 Last Documented On 3 11:07AM ; [facility] Arthritic joint problems 10/16/2014 Last Documented On 3 11:07AM ; [facility] Family History Includes: Family History addressed during this encounter Description Last Updated Family history of cancer mother ~father 11/16/2015 Last Documented On 3 11:07AM ; [facility] Family history of diabetes mellitus moth er 11/16/2015 Last Documented On 3 11:07AM ; [facility] Family history of heart disease mother ~ father 11/16/2015 Last Documented On 3 11:07AM ; [facility] Family history of hypertension mother ~f ather 11/16/2015 Last Documented On 3 11:07AM ; [facility] Family history of osteoporosis mother Last Documented On 3 11:07AM ; [facility] Family history of rheumatoid arthritis m other 11/16/2015 Last Documented On 3 11:07AM ; [facility] Family history of thromboembolic disease mother 11/16/2015 Last Documented On 3 11:07AM ; [facility] Maternal history of hypertension 015 Last Documented On 3 11:07AM ; [facility] Maternal history of osteoporosis 015 Last Documented On 3 11:07AM ; [facility] Review of Systems Includes: Review of Systems from this encounter Systemic: Not feeling tired, no recent weight [...] and no abdominal pain. No Indigestion, no Acid Reflux, no Peptic Ulcer, no GI Stomach Bleed, and no Ulcers. Endocrine: No hot flashes, no muscle weakness, [...] Immunologic: No complaint of seasonal allergic reaction. Mental Status Includes: Mental Status from this encounter Description No anxiety Functional Status Includes: Functional Status from this encounter No Functional Status Recorded Physical Exam Includes: Physical Exam from this encounter Allergies Includes: Active Allergies Substance Type Reaction Onset Date Resolved Date Statu s Sulfa Antibiotics Allergy 06/09/2017 A ctive Last Documented On 4 12:09PM ; [facility] Statins Support Allergy 06/09/2017 Act citlalli Last Documented On 4 12:09PM ; [facility] Percocet Allergy 03/10/2012 Active Last Documented On 4 12:09PM ; [facility] Bactrim Allergy 11/16/2015 Active Last Documented On 4 12:09PM ; [facility] Encounters Encounter Provider Location Date Check-In Time Check- Out Time Diagnosis Post Op Hernan Gold PA-C [facility] 3 11:12AM 11:46AM Insurance Includes: Active Insurance Policies Plan Name Member ID Group # Subscriber Relationship Effect citlalli Dates 1 - Medicare Part B [facility] [id number] Luz Pantoja Skaggs Self 04/03/2007 - Unknown 2 - [facility] [id number] PLAN F Luz Pantoja Skaggs Self 2011 - Unknown Clinical Notes Includes: Clinical Notes from this encounter * Progress note Date Encounter Last Documented by 07/07/2022 Post Op Last documented on 07/07/2022; 1:06 PM, Hernan Gold PA-C; [facility], [facility] Active Problems & Conditions - Joint Pain in the Left Hip - Joint Pain in the Left Knee - Joint Pain in the Right Knee - Joint Pain Right Thumb - Joint Pain, Localized in the Knee - Joint Pain, Localized in the Right Wrist - Midback Pain - Pain in the Lumbar Spine Chief Complaint The Chief Complaint is: POV Left TKA. Referred Here Referred by PCP. History of Present Illness Luz Skaggs is an 82 year old female. - Allergy list reviewed - Problem list reviewed - Medication list reviewed Current Medication - Calcium-Magnesium 100-50 MG Oral Tablet take as directed 0 days, 0 refills - Citalopram Hydrobromide 10 MG Oral Tablet take as directed 0 days, 0 refills - Colace 100 MG Oral Capsule 1-2 tabs daily, 30 days, 2 refills - CoQ-10 10 MG Oral Capsule [...] as directed 90 days, 0 refills - EQ Restore Plus Lubricant Eye 0.5% Ophthalmic Solution take as directed 0 days, 0 refills - Ezetimibe 10 MG Oral Tablet once a day 90 days, 0 refills - Flecainide Acetate 100 MG Oral Tablet take as directed 0 days, 0 refills - Flecainide Acetate 100 MG Oral Tablet take as directed 0 days, 0 refills - Ipratropium [place] 0.03% Nasal Solution take as directed 0 days, 0 refills - Lagevrio 200 MG Oral Capsule 5 days, 0 refills - Lagevrio 200 MG Oral Capsule 5 days, 0 refills - MegaRed [place]-3 Krill Oil 350 MG Oral Capsule once a day 0 days, 0 refills - Metoprolol Succinate ER 25 MG Oral Tablet Extended Release 24 Hour take as directed 90 days, 0 refills - MiraLax Oral Powder 17 GM/SCOOP three times a day 0 days, 0 refills - Mucinex Allergy 180 MG Oral Tablet once a day 0 days, 0 refills - Mupirocin 2% External Ointment three times a day Apply to nostrils 3 time a day 5 days prior to surgery., 5 days, 0 refills - Myrbetriq 25 MG Oral Tablet Extended Release 24 Hour 1 every bedtime 0 days, 0 refills - Osteo Bi-Flex Joint Shield Oral Tablet take as directed 0 days, 0 refills - predniSONE 10 MG Oral Tablet 7 days, 0 refills - Protonix 20 MG Oral Tablet Delayed Release use as directed 0 days, 0 refills - Sudafed 30 MG Oral Tablet [id number] 0 days, 0 refills - Warfarin Sodium 7.5 MG Oral Tablet once a day 0 days, 0 refills Past Medical/Surgical History Reported: History of Fractures and Use of CPAP. Medical: Gallbladder disease 2018, joint problems arthritic, a fracture, and cancer. Immunization History: Recent immunization for flu 02/01/2022 and for pneumococcal pneumonia 2013. Diagnoses: Heart disease. History of Blood Clots History of Blood Transfusion History of Cancer Irregular Heartbeat. Irregular Heartbeat A-fib; episode after TKA- cadiovert needed. Sleep Apnea Heartburn / Acid Reflux Hypertension. Diverticulitis of colon. Osteoporosis. Arthritis Blood transfusions. Procedural: - History of Gallbladder - Previous Fractures Surgical: - Heart surgery pacemaker 12/2019 Afib ablation - Heart surgery ablation 2016 - Past Surgical History: wrist repair hand sx gallstone sx 2012 mastectomy and reconstruction colonoscopy 2017 - Hysterectomy - Hysterectomy - Back surgery 12/15/2017 L4-5 Posterior Decompression and Fusion @ [facility] 11/07/2019 T12 Kyphyoplasty - Back surgery 11/2019-Kypho T12 - Total hip replacement 12/2018-Left hip - Total hip replacement left hip 2018 - Total knee arthroplasty right knee 2012 [...] Rheumatoid arthritis mother Maternal: Systemic hypertension Osteoporosis Review Of Systems Systemic: Not feeling tired, [...] and no abdominal pain. No Indigestion, no Acid Reflux, no Peptic Ulcer, no GI Stomach Bleed, and no Ulcers. Endocrine: No hot flashes, no muscle weakness, [...] allergic reaction. Physical Findings - Vitals taken 07/07/2022 11:17 am mal Height 65 in Weight 169 lbs Body Mass Index 28.1 kg/m2 Body Surface Area 1.8 m2 Incision well healed, well-appearing scar Mild residual swelling Knee extension 1- Knee flexion 130- TA/Gastroc/Quad fire Sensation intact to light touch throughout Palpable pulses DP/PT Assessment seven-week status post left TKA Previous Tests Imaging: X-Ray: An X-ray was performed. Therapy - Follow-up visit in one month. - Referral to physician. Counseling/Education - Lose weight Plan StartCited - Other Therapy/Physical Therapy: Knee Instructions: See PT order attached EndCited Fall Risk Assessment: This patient has been [...] therapy has been discussed with the patient. overall the patient is very pleased with her knee surgery, she has some bilateral lower extremity edema that she reports as being lymphedema diagnosis in the past. Happy to give PT prescription today to help with lymphedema modalities. We will plan for follow-up 4-6 weeks for 3 month interval exam Notes This dictation was done with voice recognition software and may contain errors and omissions. Practice Management Use of tobacco assessment performed and patient screened for future fall risk documentation of any fall with injury in past year. Care Team - FATOUMATA LESLIE MD - TILE CONDUIT LAYER
--- OUTSIDE RECORDS SUMMARY | 2024-08-18 14:56 | XMS_ITS | Clinical Summary ---
Author Organization [facility] Address [address] [place] [address] Phone Care Team Providers Care Salesperson Flowers Name Role Phone FATOUMATA LESLIE MD Primary Care Provider [phone] Camila MORALEZ, Alanna Bowen Unavailable [phone] Reason for Visit and Chief Complaint The Chief Complaint is: R wrist pain Problems Includes: Problems addressed during this encounter [...] Last Documented On 6 1:09PM ; [facility] Joint Pain, Localized in the Knee 03/10/2012 Chelle Jensen MD Active Last Documented On 2 10:37AM ; [facility] Plan of Treatment - Patient screened for future fall risk: documentation of any fall with injury in past year - Last Documented On 04/14/2024 4:23PM ; [facility] Fall Risk Assessment: This patient has been [...] with the patient. - Last Documented On 04/14/2024 4:23PM ; [facility] 1. Patient's RA panel is reviewed with her. She is referred to [facility] for her elevated rheumatoid factor, ADAM, and uric acid. 2. She will follow up in our hand clinic as needed. - Last Documented On 04/14/2024 4:23PM ; [facility] Pending Tests Order Diagnosis Results Due Ordering P neena Therapy - Occupational Therapy Wrist 04/14 Jet Reeves MD Last Documented On 4 12:05PM ; [facility] Instructions to patient Lose weight Last Documented On 4 12:12PM ; [facility] Assessments Includes: Assessments from this encounter Findings - Overweight - Last Documented On 04/14/2024 4:23PM ; [facility] 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 Ulnar sided right wrist pain - Last Documented On 04/14/2024 4:23PM ; [facility] 3. Elevated RA panel - Last Documented On 04/14/2024 4:23PM ; [facility] Instructions Includes: Instructions from this encounter Instructions to patient Lose weight Last Documented On 4 12:12PM ; [facility] Medical Equipment - Implanted Devices Includes: Current Devices No Medical Equipment Recorded Medications Includes: Medications discussed during this encounter and other current Medications Current Medications (continue as prescribed) Colestipol HCl 5 GM Oral Packet 04/14/2024 Provider: Diagnosis: Last Documented On 4 11:25AM By Carla Hall ; [facility] Protonix 20 MG Oral Tablet Delayed Release 06/16/2022 Provider: Diagnosis: Last Documented On 3 4:00PM By Elif Chicas ; [facility] Flecainide Acetate 100 MG Oral Tablet 06/16/2022 Pro vider: Diagnosis: Last Documented On 3 4:01PM By Elif Chicas ; [facility] Metoprolol Succinate ER 25 M G Oral Tablet Extended Release 24 Hour 06/12/2022 Provider: Diagnosis: Last Documented On 3 4:00PM By Elif Chicas ; [facility] predniSONE 10 MG Oral Tablet 05/02/2022 Provider: FATOUMATA LESLIE MD Diagnosis: Last Documented On 3 4:00PM By Elif Chicas ; [facility] Lagevrio 200 MG Oral Capsule 04/22/2022 Provider: FATOUMATA LESLIE MD Diagnosis: Last Documented On 3 4:00PM By Elif Chicas ; [facility] Lagevrio 200 MG Oral Capsule 04/22/2022 Provider: FATOUMATA LESLIE MD Diagnosis: Last Documented On 3 4:00PM By Elif Chicas ; [facility] Mupirocin 2% External Ointment 04/16/2022 Provider: Eliseo Cuevas MD Diagnosis: three times a day Apply to n ostrils 3 time a day 5 days prior to surgery. Last Documented On 2 2:50PM By Gilda Kamara ; [facility] MegaRed [place]-3 Krill Oil 350 MG Oral Capsule 10/26/19 21 Provider: Diagnosis: Last Documented On 1 1:15PM By Betzaida Donald ; [facility] Sudafed 30 MG Oral Tablet 10/25/2020 Provider: Diagnosis: Last Documented On 1 1:15PM By Betzaida Donald ; [facility] Mucinex Allergy 180 MG Oral Tablet 10/25/2020 Provid er: Diagnosis: Last Documented On 1 1:14PM By Betzaida Donald ; [facility] Warfarin Sodium 7.5 MG Oral Tablet 10/17/2020 Provid er: Diagnosis: Last Documented On 1 2:43PM By Greer Kingston ; [facility] Ezetimibe 10 MG Oral Tablet 09/11/2020 Provider: FATOUMATA LESLIE MD Diagnosis: Last Documented On 1 1:13PM By Betzaida Donald ; [facility] Digoxin 125 MCG Oral Tablet 07/21/2020 Provider: Diagnosis: Last Documented On 1 2:44PM By Greer Kingston ; [facility] CoQ-10 10 MG Oral Capsule 10/20/2019 Provider: Diagnosis: Last Documented On 0 4:01PM By Greer Kingston ; [facility] D3-1000 25 MCG (1000 UT) Oral Capsule 10/20/2019 Pro vider: Diagnosis: Last Documented On 0 4:00PM By Greer Kingston ; [facility] Omeprazole 20 MG Oral Ta blet Delayed Release Disintegrating 10/20/2019 Provider: Diagnosis: Last Documented On 0 3:59PM By Greer Kingston ; [facility] Probiotic Maximum Strength Oral Capsule 10/20/2019 Provider: Diagnosis: Last Documented On 0 3:58PM By Greer Kingston ; [facility] Citalopram Hydrobromide 10 MG Oral Tablet 10/20/2019 Provider: Diagnosis: Last Documented On 0 3:56PM By Greer Kingston ; [facility] Flecainide Acetate 100 MG Oral Tablet 10/20/2019 Pro vider: Diagnosis: Last Documented On 0 3:55PM By Greer Kingston ; [facility] Past Medications on file oxyCODONE HCl 5 MG Oral Tablet 05/29/2022 - 06/03/2022 Provider: Eliseo ceja MD Diagnosis: 1-2 po q 4-6h Last Documented On 3 12:32PM By Hima Cuevas ; [facility] traMADol HCl 50 MG Oral Tablet 05/29/2022 - 06/03/2022 Provider: Eliseo ceja MD Diagnosis: 1-2 po q 4-6h Last Documented On 3 12:32PM By Hima Cuevas ; [facility] Lovenox 40 MG/0.4ML Injection Solution Prefilled Syringe 05/26/2022 - 05/30/2022 Provider: Eliseo ceja MD Diagnosis: 1 sub q injection 1 time day Last Documented On 3 8:35AM By Hima Cuevas ; [facility] Cefadroxil 500 MG Oral Capsule 05/21/2022 - 05/24/2022 Provider: Eliseo ceja MD Diagnosis: twice a day Last Documented On 3 12:08PM By Hima Cuevas ; [facility] Colace 100 MG Oral Capsule 05/21/2022 - 08/19/2022 Provider: Eliseo ceja MD Diagnosis: 1-2 tabs daily Last Documented On 3 12:08PM By Hima Cuevas ; [facility] traMADol HCl 50 MG Oral Tablet 05/21/2022 - 05/26/2022 Provider: Eliseo ceja MD Diagnosis: 1-2 po q 4-6h Last Documented On 3 12:08PM By Hima Cuevas ; [facility] Acetaminophen 500 MG Oral Tablet 05/21/2022 - 06/20/2022 Provider: Eliseo Cuevas MD Diagnosis: 2 three times a day Last Documented On 3 12:08PM By Hima Cuevas ; [facility] oxyCODONE HCl 5 MG Oral Tablet 05/21/2022 - 05/26/2022 Provider: Eliseo ceja MD Diagnosis: 1-2 po q 4-6h Last Documented On 3 12:08PM By Hima Cuevas ; [facility] Ondansetron HCl 4 MG Oral Tablet 05/21/2022 - 05/26/2022 Provider: Eliseo Cuevas MD Diagnosis: [id number] Last Documented On 3 12:08PM By Hima Cuevas ; [facility] Meloxicam 15 MG Oral Tablet 05/21/2022 - 06/20/2022 Provider: Eliseo ceja MD Diagnosis: once a day Last Documented On 3 12:08PM By Hima Cuevas ; [facility] HYDROcodone-Acetaminophen 7. 5-325 MG Oral Tablet 10/25/2020 - 11/14/2020 Provider: Brandon Wilks MD Diagnosis: twice a day Last Documented On 1 12:08PM By Dr. Wilks ; [facility] Bluejacket 5-325MG Oral Tablet 12/23/2018 - 01/22/2019 Provider: Eliseo ceja MD Diagnosis: 1-2 po q6h prn pain Last Documented On 9 3:09PM By Reanna Gutierrez ; [facility] Acetaminophen 500MG Oral Tablet 12/08/2018 - 01/07/2019 Provider: Eliseo Cuevas MD Diagnosis: 2 three times a day FOR BACON RGERY DO NOT FILL UNTIL 12/14/18 Last Documented On 9 4:10PM By Reanna Gutierrez ; [facility] traMADol HCl 50MG Oral Tablet 12/08/2018 - 12/13/2018 Provider: Elieso ceja MD Diagnosis: 1-2 po q6h prn pain FOR BACON RGERY DO NOT FILL UNTIL 12/14/18 Last Documented On 9 4:06PM By Reanna Gutierrez ; [facility] Neurontin 300MG Oral Capsule 12/08/2018 - 03/08/2019 Provider: Eliseo ceja MD Diagnosis: 1 every bedtime FOR SURGER Y DO NOT FILL UNTIL 12/14/18 Last Documented On 9 4:05PM By Reanna Gutierrez ; [facility] Dilaudid 2MG Oral Tablet 12/08/2018 - 12/10/2018 Provi gaby: Eliseo Cuevas MD Diagnosis: 1-2 po q6h prn pain (RESCUE PAIN) FOR SURGERY DO NOT FILL UNTIL 12/14/18 Last Documented On 9 4:05PM By Reanna Gutierrez ; [facility] Colace 100MG Oral Capsule 12/08/2018 - 03/08/2019 Provider: Eliseo ceja MD Diagnosis: 1-2 tabs daily FOR SURGERY DO NOT FILL UNTIL 12/14/18 Last Documented On 9 4:10PM By Reanna Gutierrez ; [facility] Mupirocin 2% External Ointment 11/09/2018 - 11/14/2018 Provider: Eliseo ceja MD Diagnosis: Apply to nostrils 3 time a d ay 5 days prior to surgery. Last Documented On 9 10:40AM By Gilda Kamara ; [facility] Bluejacket 5-325MG Oral Tablet 12/24/2017 - 12/31/2017 Prov ider: Brandon Wilks MD Diagnosis: 1-2 po q 4-6h PRN Last Documented On 8 5:31PM By Dr. Wilks ; [facility] Bluejacket 7.5-325 MG OR TABS 12/24/2017 - 01/03/2018 Provi gaby: Brandon Wilks MD Diagnosis: Last Documented On 8 11:35AM By Marcelle Croft ; [facility] Voltaren Gel 1% External 10/14/2017 - 12/13/2017 Provi gaby: Alanna Jensen MD Diagnosis: use as directed Last Documented On 8 10:09AM By Sayra Evans ; [facility] Lovenox 40MG/0.4ML Subcutaneous Solution 05/06/2017 - 05/26/2017 Provider: Alanna castaneda MD Diagnosis: use as directed/1 INJECTION PER DAY FOR 5 DAYS PRIOR TO PROCEDER & 1 INJECTION PER DAY FOR 5 DAYS AFTER PROCERDER/ Last Documented On 8 4:29PM By Sayra Evans ; [facility] Bluejacket 5-325 MG Tablet 10/29/2016 - 11/05/2016 Provider : Alanna Jensen MD Diagnosis: 1-2 po q 4-6h PRN Last Documented On 7 11:55AM By Camryn Paez ; [facility] Medrol 4 MG Tablet Therapy Pack 02/14/2016 - 02/20/2016 Provider: Alanna chin MD Diagnosis: use as directed by pharmacy Last Documented On 6 3:16PM By Heather Langley ; [facility] Bluejacket 5-325 MG Tablet 12/03/2015 - 12/18/2015 Provider : Alanna Jensen MD Diagnosis: 1-2 po q 4-6h Last Documented On 6 1:26PM By Heather Langley ; [facility] Bluejacket 7.5-325 MG Tablet 11/16/2015 - 12/16/2015 Provid er: Alanna Jensen MD Diagnosis: 1 every 4 - 6 hours PO PRN Last Documented On 6 2:09PM By Lani Marquez ; [facility] Voltaren 1% TD GEL 01/31/2013 - 03/02/2013 Provider: Alanna Jensen MD Diagnosis: DEGENERATIVE MIKEY NT DISEASE KNEE apply 4 grams to affected ar ea 4 times a day//ks Last Documented On 3 2:16PM By Ann Marie Sutherland ; [facility] Lortab 10-500 MG OR TABS 09/14/2012 - 09/21/2012 Provi gaby: Alanna Jensen MD Diagnosis: [id number] [facility] jsb/df Last Documented On 3 8:56AM By Jose F Gutierrez ; [facility] Lortab 10-500 MG OR TABS 08/06/2012 - 08/13/2012 Provi gaby: Alanna Jensen MD Diagnosis: [phone] [facility] jsb/df Last Documented On 3 1:59PM By Jose F Gutierrez ; [facility] Lortab 10-500 MG OR TABS 07/09/2012 - 07/16/2012 Provi gaby: Alanna Jensen MD Diagnosis: [id number] [facility] jsb Last Documented On 3 12:36PM By Jose F Gutierrez ; [facility] Lortab 10-500 MG OR TABS 07/01/2012 - 07/08/2012 Provi gaby: Alanna Jensen MD Diagnosis: [phone] [facility] df Last Documented On 3 1:53PM By Jose F Gutierrez ; [facility] Xarelto 10 MG OR TABS 06/14/2012 - 07/05/2012 Provider : Alanna Jensen MD Diagnosis: sx on 06-15-12kw Last Documented On 3 1:31PM By Danielle Dobson ; [facility] Lortab 10-500 MG OR TABS 06/14/2012 - 06/21/2012 Provi gaby: Alanna Jensen MD Diagnosis: sx on 06-15-12 Last Documented On 3 1:31PM By Danielle Dobson ; [facility] Medications Administered Includes: Administered Medications from this encounter No Administered Medications Recorded Vital Signs Includes: Vital Signs from this encounter Vital Name 04/14/2024 12:09P Height (in) 65 Weight (lb) 172 Body Mass Index 28.6 Body Surface Area 1.9 Note: sr Last Documented: On 04/14/2024 12:11P M ; [facility] Results Includes: Results discussed during this encounter [...] last office visit on 03/03/2024 helped some. Social History Description Last Updated No recent change in diet 04/14/2024 Last Documented On 4:23PM ; [facility] Not a current smoker. 04/14/2024 Last Documented On 4 4:23PM ; [facility] Tobacco non-user 04/14/2024 Last Documented On 4 4:23PM ; [facility] Smoking Status Unknown Procedures and Surgical History Includes: Procedures from this encounter Procedures Code Diagnosis Performing Provider Service L ocation Service Date use of tobacco assessment performed 1000F Last Documented On 4 12:12PM ; [facility] patient screened for future fall risk: documentation of any fall with injury in past year 1100F Last Documented On 4 12:12PM ; [facility] an X-ray was performed 16262 Last Documented On 4 12:12PM ; [facility] Medical History Includes: Medical History addressed during this encounter Description Last Updated Recent immunization for flu 02/01/2022 1 06/15/2023 Last Documented On 4 4:23PM ; [facility] Recent immunization for pneumococcal pne [facility] 201304/14/2024 Last Documented On 4 4:23PM ; [facility] Family History Includes: Family History addressed during this encounter No Family History Recorded Review of Systems Includes: Review of Systems [...] ctive Last Documented On 4 12:09PM ; [facility] Statins Support Allergy 06/09/2017 Act citlalli Last Documented On 4 12:09PM ; [facility] Percocet Allergy 03/10/2012 Active Last Documented On 4 12:09PM ; [facility] Bactrim Allergy 11/16/2015 Active Last Documented On 4 12:09PM ; [facility] Encounters Encounter Provider Location Date Check-In Time Check-Out Time Diagnosis Follow Up Ceci Santos APRN [facility] 4 11:15AM 12:07PM Overweight Insurance Includes: Active Insurance Policies Plan Name Member ID Group # Subscriber Relationship Effect citlalli Dates 1 - Medicare Part B [facility] [id number] Luz Skaggs Self 04/03/2007 - Unknown 2 - [facility] [id number] PLAN F Luz Skaggs Self 2011 - Unknown Clinical Notes Includes: Clinical Notes from this encounter * Progress note Date Encounter Last Documented by 04/14/2024 Follow Up Last documented on 04/14/2024; 4:23 PM, Ceci Santos APRN; [facility] Active Problems & Conditions - Joint Pain [...] Capsule 5 days, 0 refills - MegaRed [place]-3 Krill Oil 350 MG Oral Capsule once [...] refills - Sudafed 30 MG Oral Tablet [id number] 0 days, 0 refills - Warfarin Sodium [...] Care Team - FATOUMATA LESLIE MD - [facility] Health Reminders - Assess BMI satisfied 04/14/2024. - Assess Tobacco Use satisfied 04/14/2024.
--- OUTSIDE RECORDS SUMMARY | 2024-08-18 14:56 | XMS_ITS ---
Care Plan - [facility] Created on: August 18, 2024 Luz Skaggs : 1940 Sex: Female Author Organization [facility] Address [address] [place] [address] Phone Care Team Providers Care Daycare Worker Name Role Phone MARIAMA MORALEZ, FATOUMATA Blanco Primary Care Provider [phone] Camila MORALEZ, Alanna Bowen Unavailable [phone]
--- OUTSIDE RECORDS SUMMARY | 2024-08-18 14:57 | XMS_ITS | Clinical Summary ---
Author Organization [facility] Address [address] [place] [address] Phone Care Team Providers Care Bark Tanner Name Role Phone JOSHUA LESLIE MDGHTheo Blanco Primary Care Provider [phone] Camila MORALEZ, Alanna Bowen Unavailable [phone] [...] Active Last Documented On 2 1:05PM ; [facility] Joint Pain Right Thumb 04/17/2022 Ceci griffin APRN Active Last Documented On 2 1:05PM ; [facility] Midback Pain 10/17/2020 Brandon Wilks MD Acti ve Last Documented On 1 2:32PM ; [facility] Joint Pain in the Left Knee 02/16/2020 Rachel Cuevas MD Active Last Documented On 0 1:26PM ; [facility] Joint Pain in the Right Knee 10/29/2016 James Jensen MD Active Last Documented On 7 10:32AM ; [facility] Pain in the Lumbar Spine 03/13/2016 Alanna Jensen MD Active Last Documented On 6 1:07PM ; [facility] Joint Pain in the Left Hip 03/13/2016 Alanna Jensen MD Active Last Documented On 6 1:09PM ; [facility] Joint Pain, Localized in the Knee 03/10/2012 Chelle Jensen MD Active Last Documented On 2 10:37AM ; [facility] Plan of Treatment Fall Risk Assessment: [...] with the patient. - Last Documented On 08/18/2022 1:50PM ; [facility] overall the patient is very pleased with her knee surgery, has some residual swelling of the lower leg being treated for lymphedema. Will plan for follow-up one year postop - Last Documented On 08/18/2022 1:50PM ; [facility] Instructions to patient Lose weight Last Documented On 3 1:09PM ; [facility] Assessments Includes: Assessments from this encounter Findings 3 months status post left TKA - Last Documented On 08/18/2022 1:50PM ; [facility] Instructions Includes: Instructions from this encounter Instructions to patient Lose weight Last Documented On 3 1:09PM ; [facility] Medical Equipment - Implanted Devices Includes: Current Devices No Medical Equipment Recorded Medications Includes: Medications discussed during this encounter and other current Medications Current Medications (continue as prescribed) Colestipol HCl 5 GM Oral Packet 04/14/2024 Provider: Diagnosis: Last Documented On 4 11:25AM By Carla Hall ; [facility] Protonix 20 MG Oral Tablet Delayed Release 06/16/2022 Provider: Diagnosis: Last Documented On 3 4:00PM By Elif Chicas ; [facility] Flecainide Acetate 100 MG Oral Tablet 06/16/2022 Pro vider: Diagnosis: Last Documented On 3 4:01PM By Elif Chicas ; [facility] Metoprolol Succinate ER 25 M G Oral Tablet Extended Release 24 Hour 06/12/2022 Provider: Diagnosis: Last Documented On 3 4:00PM By Elif Chicas ; [facility], [facility] predniSONE 10 MG Oral Tablet 05/02/2022 Provider: FATOUMATA LESLIE MD Diagnosis: Last Documented On 3 4:00PM By Elif Chicas ; [facility] Lagevrio 200 MG Oral Capsule 04/22/2022 Provider: FATOUMATA LESLIE MD Diagnosis: Last Documented On 3 4:00PM By Elif Chicas ; [facility] Lagevrio 200 MG Oral Capsule 04/22/2022 Provider: FATOUMATA LESLIE MD Diagnosis: Last Documented On 3 4:00PM By Elif Chicas ; [facility], [facility] Mupirocin 2% External Ointment 04/16/2022 Provider: Eliseo Cuevas MD Diagnosis: three times a day Apply to n ostrils 3 time a day 5 days prior to surgery. Last Documented On 2 2:50PM By Gilda Kamara ; [facility] MegaRed Fall Branch-3 Krill Oil 350 MG Oral Capsule 10/26/19 21 Provider: Diagnosis: Last Documented On 1 1:15PM By Betzaida Donald ; [facility], [facility] Sudafed 30 MG Oral Tablet 10/25/2020 Provider: Diagnosis: Last Documented On 1 1:15PM By Betzaida Donald ; [facility], [facility] Mucinex Allergy 180 MG Oral Tablet 10/25/2020 Provid er: Diagnosis: Last Documented On 1 1:14PM By Betzaida Donald ; [facility], [facility] Warfarin Sodium 7.5 MG Oral Tablet 10/17/2020 Provid er: Diagnosis: Last Documented On 1 2:43PM By Greer Kingston ; [facility], [facility] Ezetimibe 10 MG Oral Tablet 09/11/2020 Provider: FATOUMATA LESLIE MD Diagnosis: Last Documented On 1 1:13PM By Betzaida Donald ; [facility] Digoxin 125 MCG Oral Tablet 07/21/2020 Provider: Diagnosis: Last Documented On 1 2:44PM By Greer Kingston ; [facility], [facility] CoQ-10 10 MG Oral Capsule 10/20/2019 Provider: Diagnosis: Last Documented On 0 4:01PM By Greer Kingston ; [facility], [facility] D3-1000 25 MCG (1000 UT) Oral Capsule 10/20/2019 Pro vider: Diagnosis: Last Documented On 0 4:00PM By Greer Kingston ; [facility] Omeprazole 20 MG Oral Ta blet Delayed Release Disintegrating 10/20/2019 Provider: Diagnosis: Last Documented On 0 3:59PM By Greer Kingston ; [facility] Probiotic Maximum Strength Oral Capsule 10/20/2019 Provider: Diagnosis: Last Documented On 0 3:58PM By Greer Kingston ; [facility], [facility] Citalopram Hydrobromide 10 MG Oral Tablet 10/20/2019 Provider: Diagnosis: Last Documented On 0 3:56PM By Greer Kingston ; [facility], [facility] Flecainide Acetate 100 MG Oral Tablet 10/20/2019 Pro vider: Diagnosis: Last Documented On 0 3:55PM By Greer Kingston ; [facility], [facility] Past Medications on file oxyCODONE HCl 5 MG Oral Tablet 05/29/2022 - 06/03/2022 Provider: Eliseo ceja MD Diagnosis: 1-2 po q 4-6h Last Documented On 3 12:32PM By Hima Cuevas ; [facility], [facility] traMADol HCl 50 MG Oral Tablet 05/29/2022 - 06/03/2022 Provider: Eliseo ceja MD Diagnosis: 1-2 po q 4-6h Last Documented On 3 12:32PM By Hima Cuevas ; [facility], [facility] Lovenox 40 MG/0.4ML Injection Solution Prefilled Syringe 05/26/2022 - 05/30/2022 Provider: Eliseo ceja MD Diagnosis: 1 sub q injection 1 time day Last Documented On 3 8:35AM By Hima Cuevas ; [facility] Cefadroxil 500 MG Oral Capsule 05/21/2022 - 05/24/2022 Provider: Eliseo ceja MD Diagnosis: twice a day Last Documented On 3 12:08PM By Hima Cuevas ; [facility] Colace 100 MG Oral Capsule 05/21/2022 - 08/19/2022 Provider: Eliseo ceja MD Diagnosis: 1-2 tabs daily Last Documented On 3 12:08PM By Hima Cuevas ; [facility] traMADol HCl 50 MG Oral Tablet 05/21/2022 - 05/26/2022 Provider: Eliseo ceja MD Diagnosis: 1-2 po q 4-6h Last Documented On 3 12:08PM By Hima Cuevas ; [facility] Acetaminophen 500 MG Oral Tablet 05/21/2022 - 06/20/2022 Provider: Eliseo Cuevas MD Diagnosis: 2 three times a day Last Documented On 3 12:08PM By Hima Cuevas ; [facility] oxyCODONE HCl 5 MG Oral Tablet 05/21/2022 - 05/26/2022 Provider: Eliseo ceja MD Diagnosis: 1-2 po q 4-6h Last Documented On 3 12:08PM By Hima Cuevas ; [facility] Ondansetron HCl 4 MG Oral Tablet 05/21/2022 - 05/26/2022 Provider: Eliseo Cuevas MD Diagnosis: [id number] Last Documented On 3 12:08PM By Hima Cuevas ; [facility] Meloxicam 15 MG Oral Tablet 05/21/2022 - 06/20/2022 Provider: Eliseo ceja MD Diagnosis: once a day Last Documented On 3 12:08PM By Hima Cuevas ; [facility] HYDROcodone-Acetaminophen 7. 5-325 MG Oral Tablet 10/25/2020 - 11/14/2020 Provider: Brandon Wilks MD Diagnosis: twice a day Last Documented On 1 12:08PM By Dr. Wilks ; [facility] Panther 5-325MG Oral Tablet 12/23/2018 - 01/22/2019 Provider: Eliseo ceja MD Diagnosis: 1-2 po q6h prn pain Last Documented On 9 3:09PM By Reanna Gutierrez ; [facility] Acetaminophen 500MG Oral Tablet 12/08/2018 - 01/07/2019 Provider: Eliseo Cuevas MD Diagnosis: 2 three times a day FOR BACON RGERY DO NOT FILL UNTIL 12/14/18 Last Documented On 9 4:10PM By Reanna Gutierrez ; [facility] traMADol HCl 50MG Oral Tablet 12/08/2018 - 12/13/2018 Provider: Eliseo ceja MD Diagnosis: 1-2 po q6h prn pain FOR BACON RGERY DO NOT FILL UNTIL 12/14/18 Last Documented On 9 4:06PM By Reanna Gutierrez ; [facility] Neurontin 300MG Oral Capsule 12/08/2018 - 03/08/2019 Provider: Eliseo ceja MD Diagnosis: 1 every bedtime FOR SURGER Y DO NOT FILL UNTIL 12/14/18 Last Documented On 9 4:05PM By Reanna Gutierrez ; [facility] Dilaudid 2MG Oral Tablet 12/08/2018 - 12/10/2018 Provi gaby: Eliseo Cuevas MD Diagnosis: 1-2 po q6h prn pain (RESCUE PAIN) FOR SURGERY DO NOT FILL UNTIL 12/14/18 Last Documented On 9 4:05PM By Reanna Gutierrez ; [facility] Colace 100MG Oral Capsule 12/08/2018 - 03/08/2019 Provider: Eliseo ceja MD Diagnosis: 1-2 tabs daily FOR SURGERY DO NOT FILL UNTIL 12/14/18 Last Documented On 9 4:10PM By Reanna Gutierrez ; [facility] Mupirocin 2% External Ointment 11/09/2018 - 11/14/2018 Provider: Eliseo ceja MD Diagnosis: Apply to nostrils 3 time a d ay 5 days prior to surgery. Last Documented On 9 10:40AM By Gilda Kamara ; [facility] Panther 5-325MG Oral Tablet 12/24/2017 - 12/31/2017 Prov ider: Brandon Wilks MD Diagnosis: 1-2 po q 4-6h PRN Last Documented On 8 5:31PM By Dr. Wilks ; [facility] Panther 7.5-325 MG OR TABS 12/24/2017 - 01/03/2018 Provi gaby: Brandon Wilks MD Diagnosis: Last Documented On 8 11:35AM By Marcelle Croft ; [facility] Voltaren Gel 1% External 10/14/2017 - 12/13/2017 Provi gaby: Alanna Jensen MD Diagnosis: use as directed Last Documented On 8 10:09AM By Sayra Evans ; [facility] Lovenox 40MG/0.4ML Subcutaneous Solution 05/06/2017 - 05/26/2017 Provider: Alanna castaneda MD Diagnosis: use as directed/1 INJECTION PER DAY FOR 5 DAYS PRIOR TO PROCEDER & 1 INJECTION PER DAY FOR 5 DAYS AFTER PROCERDER/ Last Documented On 8 4:29PM By Sayra Evans ; [facility] Panther 5-325 MG Tablet 10/29/2016 - 11/05/2016 Provider : Alanna Jensen MD Diagnosis: 1-2 po q 4-6h PRN Last Documented On 7 11:55AM By Camryn Paez ; [facility] Medrol 4 MG Tablet Therapy Pack 02/14/2016 - 02/20/2016 Provider: Alanna chin MD Diagnosis: use as directed by pharmacy Last Documented On 6 3:16PM By Heather Langley ; [facility] Panther 5-325 MG Tablet 12/03/2015 - 12/18/2015 Provider : Alanna Jensen MD Diagnosis: 1-2 po q 4-6h Last Documented On 6 1:26PM By Heather Langley ; [facility] Panther 7.5-325 MG Tablet 11/16/2015 - 12/16/2015 Provid er: Alanna Jensen MD Diagnosis: 1 every 4 - 6 hours PO PRN Last Documented On 6 2:09PM By Lani Marquez ; [facility] Voltaren 1% TD GEL 01/31/2013 - 03/02/2013 Provider: Alanna Jensen MD Diagnosis: DEGENERATIVE MIKEY NT DISEASE KNEE apply 4 grams to affected ar ea 4 times a day//ks Last Documented On 3 2:16PM By Ann Marie Sutherland ; [facility] Lortab 10-500 MG OR TABS 09/14/2012 - 09/21/2012 Provi gaby: Alanna Jensen MD Diagnosis: [id number] [facility] jsb/df Last Documented On 3 8:56AM By Jose F Gutierrez ; [facility] Lortab 10-500 MG OR TABS 08/06/2012 - 08/13/2012 Provi gaby: Alanna Jensen MD Diagnosis: [id number] [facility] jsb/df Last Documented On 3 1:59PM By Jose F Gutierrez ; [facility] Lortab 10-500 MG OR TABS 07/09/2012 - 07/16/2012 Provi gaby: Alanna Jensen MD Diagnosis: [id number] [facility] jsb Last Documented On 3 12:36PM By Jose F Gutierrez ; [facility] Lortab 10-500 MG OR TABS 07/01/2012 - 07/08/2012 Provi gaby: Alanna Jensen MD Diagnosis: [phone] [facility] df Last Documented On 3 1:53PM By Jose F Gutierrez ; [facility] Xarelto 10 MG OR TABS 06/14/2012 - 07/05/2012 Provider : Alanna Jensen MD Diagnosis: sx on 06-15-kw Last Documented On 3 1:31PM By Danielle Dobson ; [facility] Lortab 10-500 MG OR TABS 06/14/2012 - 06/21/2012 Provi gaby: Alanna Jensen MD Diagnosis: sx on 06-15-12 Last Documented On 3 1:31PM By Danielle Dobson ; [facility] Medications Administered Includes: Administered Medications from this encounter No Administered Medications Recorded Vital Signs Includes: Vital Signs from this encounter Vital Name 08/18/2022 01:09P Height (in) 65 Weight (lb) 169 Body Mass Index 28.1 Body Surface Area 1.8 Note: dp Last Documented: On 08/18/2022 1:09PM ; [facility] Results Includes: Results discussed during this encounter No Results Recorded For Specified Dates History of Present Illness Includes: History of Present Illness from this encounter MAYCOL Skaggs is an 82 year old female. - Allergy list reviewed - Problem list reviewed - Medication list reviewed Social History Description Last Updated No recent change in diet 04/14/2024 Last Documented On 3 1:09PM ; [facility] Not a current smoker. 04/14/2024 Last Documented On 3 1:09PM ; [facility] Tobacco non-user 04/14/2024 Last Documented On 3 1:09PM ; [facility] Alcohol use 10/25/2020 Last Documented On 3 1:09PM ; [facility] Not using drugs 10/25/2020 Last Documented On 3 1:09PM ; [facility] Recent change in diet 10/25/2020 Last Documented On 3 1:09PM ; [facility] Non-smoker 10/17/2020 Last Documented On 3 1:09PM ; [facility] No caffeine use 10/17/2020 Last Documented On 3 1:09PM ; [facility] Not a current smoker. 10/17/2020 Last Documented On 3 1:09PM ; [facility] No tobacco use 10/31/2019 Last Documented On 3 1:09PM ; [facility] Not a current smoker 10/31/2019 Last Documented On 3 1:09PM ; [facility] Not exercising regularly 10/31/2019 Last Documented On 3 1:09PM ; [facility] Smoking status : Never smoker 10/31/2019 Last Documented On 3 1:09PM ; [facility] Procedures and Surgical History Includes: Procedures from this encounter Procedures Code Diagnosis Performing Provider Service L ocation Service Date use of tobacco assessment performed 1000F Last Documented On 3 1:09PM ; [facility] patient screened for future fall risk: documentation of any fall with injury in past year 1100F Last Documented On 3 1:09PM ; [facility] follow-up visit in one month Last Documented On 3 1:09PM ; [facility] referral to physician Last Documented On 3 1:09PM ; [facility] an X-ray was performed 18746 Last Documented On 3 1:09PM ; [facility] Surgical History Last Updated History of back surgery 11/2019-Kypho T1 2 10/17/2020 Last Documented On 3 1:09PM ; [facility] History of heart surgery ablation 2017 0 10/31/2019 Last Documented On 3 1:09PM ; [facility] History of total hip replacement left hi p 201810/31/2019 Last Documented On 3 1:09PM ; [facility] History of total knee arthroplasty right knee 201210/31/2019 Last Documented On 3 1:09PM ; [facility] History of hysterectomy 10/16/2014 Last Documented On 3 1:09PM ; [facility] Medical History Includes: Medical History addressed during this encounter Description Last Updated Recent immunization for flu 02/01/2022 1 06/15/2023 Last Documented On 3 1:09PM ; [facility] Recent immunization for pneumococcal pne umonia 201304/14/2024 Last Documented On 3 1:09PM ; [facility] History of Irregular Heartbeat A-fib; ep isode after TKA- cadiovert needed 06/16/2022 Last Documented On 3 1:09PM ; [facility] blood transfusions 10/25/2020 Last Documented On 3 1:09PM ; [facility] Arthritis 10/25/2020 Last Documented On 3 1:09PM ; [facility] Heartburn / Acid Reflux 10/25/2020 Last Documented On 3 1:09PM ; [facility] History of Blood Clots 10/25/2020 Last Documented On 3 1:09PM ; [facility] History of Blood Transfusion 10/25/2020 Last Documented On 3 1:09PM ; [facility] History of Cancer 10/25/2020 Last Documented On 3 1:09PM ; [facility] History of Fractures 10/25/2020 Last Documented On 3 1:09PM ; [facility] History of heart disease 10/25/2020 Last Documented On 3 1:09PM ; [facility] Hypertension 10/25/2020 Last Documented On 3 1:09PM ; [facility] Irregular Heartbeat 10/25/2020 Last Documented On 3 1:09PM ; [facility] Past Surgical History: wrist repair ~hand sx ~gallstone sx 2011 ~mastectomy and reconstruction ~colonoscopy 2018 10/25/2020 Last Documented On 3 1:09PM ; [facility] Previous Fractures 10/25/2020 Last Documented On 3 1:09PM ; [facility] Sleep Apnea 10/25/2020 Last Documented On 3 1:09PM ; [facility] Use of CPAP 10/25/2020 Last Documented On 3 1:09PM ; [facility] Back surgery 12/15/2017 L4-5 Posterior Decompression and Fusion @ [facility] ~11/07/2019 T12 Kyphyoplasty 10/25/2020 Last Documented On 3 1:09PM ; [facility] Heart surgery pacemaker 12/2019 ~Afib ab lation 10/25/2020 Last Documented On 3 1:09PM ; [facility] History of Gallbladder 10/25/2020 Last Documented On 3 1:09PM ; [facility] Hysterectomy 10/25/2020 Last Documented On 3 1:09PM ; [facility] Total hip replacement 12/2018-Left hip 0 10/17/2020 Last Documented On 3 1:09PM ; [facility] A previous fracture 10/31/2019 Last Documented On 3 1:09PM ; [facility] Gallbladder disease 2018 10/31/2019 Last Documented On 3 1:09PM ; [facility] History of diverticulitis of colon 11/15 Last Documented On 3 1:09PM ; [facility] History of osteoporosis 11/16/2015 Last Documented On 3 1:09PM ; [facility] A history of cancer 10/16/2014 Last Documented On 3 1:09PM ; [facility] Arthritic joint problems 10/16/2014 Last Documented On 3 1:09PM ; [facility] Family History Includes: Family History addressed during this encounter Description Last Updated Family history of cancer mother ~father 11/16/2015 Last Documented On 3 1:09PM ; [facility] Family history of diabetes mellitus moth er 11/16/2015 Last Documented On 3 1:09PM ; [facility] Family history of heart disease mother ~ father 11/16/2015 Last Documented On 3 1:09PM ; [facility] Family history of hypertension mother ~f ather 11/16/2015 Last Documented On 3 1:09PM ; [facility] Family history of osteoporosis mother Last Documented On 3 1:09PM ; [facility] Family history of rheumatoid arthritis m other 11/16/2015 Last Documented On 3 1:09PM ; [facility] Family history of thromboembolic disease mother 11/16/2015 Last Documented On 3 1:09PM ; [facility] Maternal history of hypertension 015 Last Documented On 3 1:09PM ; [facility] Maternal history of osteoporosis 015 Last Documented On 3 1:09PM ; [facility] Review of Systems Includes: Review of [...] ctive Last Documented On 4 12:09PM ; [facility] Statins Support Allergy 06/09/2017 Act citlalli Last Documented On 4 12:09PM ; [facility] Percocet Allergy 03/10/2012 Active Last Documented On 4 12:09PM ; [facility] Bactrim Allergy 11/16/2015 Active Last Documented On 4 12:09PM ; [facility] Encounters Encounter Provider Location Date Check-In Time Check- Out Time Diagnosis Post Op Hernan Gold PA-C [facility] 3 1:00PM 1:29PM Insurance Includes: Active Insurance Policies Plan Name Member ID Group # Subscriber Relationship Effect citlalli Dates 1 - Medicare Part B [facility] [id number] Luz Skaggs Self 04/03/2007 - Unknown 2 - [facility] [id number] PLAN F Luz Skaggs Self 2011 - Unknown Clinical Notes Includes: Clinical Notes from this encounter * Progress note Date Encounter Last Documented by 08/18/2022 Post Op Last documented on 08/18/2022; 1:50 PM, Hernan Gold PA-C; [facility] Active Problems & Conditions - Joint [...] directed 0 days, 0 refills - Ipratropium [place] 0.03% Nasal Solution take as directed 0 days, 0 refills - Lagevrio 200 MG Oral Capsule 5 days, 0 refills - Lagevrio 200 MG Oral Capsule 5 days, 0 refills - MegaRed Fall Branch-3 Krill Oil 350 MG Oral Capsule once [...] refills - Sudafed 30 MG Oral Tablet [id number] 0 days, 0 refills - Warfarin Sodium [...] 12/2019 Afib ablation - Heart surgery ablation 2017 - Past Surgical History: wrist repair hand sx gallstone sx 2012 mastectomy and reconstruction colonoscopy 2018 - Hysterectomy - Hysterectomy - Back surgery [...] allergic reaction. Physical Findings - Vitals taken 08/18/2022 01:09 pm dp Height 65 in Weight 169 lbs Body Mass Index 28.1 kg/m2 Body Surface Area 1.8 m2 Incision well healed , well-appearing scar Mild residual swelling Knee extension 0- Knee flexion 123- TA/Gastroc/Quad firing Sensation intact to light touch throughout Palpable pulses DP/PT Assessment 3 months status post left TKA Previous Tests Imaging: X-Ray: An X-ray was performed. Therapy - Follow-up visit in one month. - Referral to physician. Counseling/Education - Lose weight Plan Fall Risk Assessment: This patient has been [...] is very pleased with her knee surgery, has some residual swelling of the lower leg being treated for lymphedema. Will plan for follow-up one year postop Notes This dictation was done with voice recognition software and may contain errors and omissions. Practice Management Use of tobacco assessment performed and patient screened for future fall risk documentation of any fall with injury in past year. Care Team - FATOUMATA LESLIE MD - SOUND EFFECTS MANAGER
--- OUTSIDE RECORDS SUMMARY | 2024-08-18 14:57 | XMS_ITS | Clinical Summary ---
Author Organization [facility] , [facility] Address [address] [place] [address] Phone Care Team Providers Care Tour Escort Name Role Phone MARIAMA OMRALEZ FATOUMATA E Primary Care Provider [phone] Camila MORALEZ, Alanna Bowen Unavailable [phone] Reason for Referral Date Encounter Description Provider Reason for Referral 08/18/23 Follow Up Hernan Gold PA-C Referral To Physician Reason for Visit and Chief Complaint The Chief Complaint is: POV Left TKA Problems Includes: Problems addressed during this encounter and other active Problems All Visits Onset Date Resolved Date Provider Condition S tatus Joint Pain, Localized in the Right Wrist 04/17/2022 Ceci Santos APRN Active Last Documented On 2 1:05PM ; [facility] Joint Pain Right Thumb 04/17/2022 Ceci griffin APRN Active Last Documented On 2 1:05PM ; [facility] Midback Pain 10/17/2020 [...] Documented On 6 1:07PM ; [facility] Joint Pain in the Left Hip 03/13/2016 Alanna Jensen MD Active Last Documented On 6 1:09PM ; [facility] Joint Pain, Localized in the Knee 03/10/2012 Chelle Jensen MD Active Last Documented On 2 10:37AM ; [facility], [facility] Plan of Treatment Fall Risk Assessment: [...] with the patient. - Last Documented On 09/01/2023 8:29AM ; [facility], [facility] Overall patient is very pleased with the knee surgery, no complaints today. We will plan for follow up 5 year postop intervals - Last Documented On 09/01/2023 8:29AM ; [facility], [facility] Instructions to patient Lose weight Last Documented On 4 3:03PM ; [facility], [facility] Assessments Includes: Assessments from this encounter Findings - Overweight - Last Documented On 09/01/2023 8:29AM ; [facility] 1 year status post left TKA - Last Documented On 09/01/2023 8:29AM ; [facility], [facility] Instructions Includes: Instructions from this encounter Instructions to patient Lose weight Last Documented On 4 3:03PM ; [facility], [facility] Medical Equipment - Implanted Devices Includes: Current Devices No Medical Equipment Recorded Medications Includes: Medications discussed during this encounter and other current Medications Current Medications (continue as prescribed) Colestipol HCl 5 GM Oral Packet 04/14/2024 Provider: Diagnosis: Last Documented On 4 11:25AM By Carla Hall ; [facility] Protonix 20 MG Oral Tablet Delayed Release 06/16/2022 Provider: Diagnosis: Last Documented On 3 4:00PM By Elif [facility]IEIR[facility] Flecainide Acetate 100 MG Oral Tablet 06/16/2022 Pro vider: Diagnosis: Last Documented On 3 4:01PM By Elif Chicas ; [facility], [facility] Metoprolol Succinate ER 25 M G Oral Tablet Extended Release 24 Hour 06/12/2022 Provider: Diagnosis: Last Documented On 3 4:00PM By Elif Chicas ; [facility] predniSONE 10 MG Oral Tablet 05/02/2022 Provider: FATOUMATA LESLIE MD Diagnosis: Last Documented On 3 4:00PM By Elif Chicas ; [facility] Lagevrio 200 MG Oral Capsule 04/22/2022 Provider: FATOUMATA LESLIE MD Diagnosis: Last Documented On 3 4:00PM By Elif Chicas ; [facility] Lagevrio 200 MG Oral Capsule 04/22/2022 Provider: FATOUMATA LESLIE MD Diagnosis: Last Documented On 3 4:00PM By Elif Chicas ; [facility], [facility] Mupirocin 2% External Ointment 04/16/2022 Provider: Eliseo Cuevas MD Diagnosis: three times a day Apply to n ostrils 3 time a day 5 days prior to surgery. Last Documented On 2 2:50PM By Gilda Kamara ; [facility], [facility] MegaRed Rush-3 Krill Oil 350 MG Oral Capsule 10/26/19 21 Provider: Diagnosis: Last Documented On 1 1:15PM By Betzaida Donald ; [facility], [facility] Sudafed 30 MG Oral Tablet 10/25/2020 Provider: Diagnosis: Last Documented On 1 1:15PM By Betzaida Donald ; [facility], [facility] Mucinex Allergy 180 MG Oral Tablet 10/25/2020 Provid er: Diagnosis: Last Documented On 1 1:14PM By Betzaida Donald ; [facility] Warfarin Sodium 7.5 MG Oral Tablet 10/17/2020 Provid er: Diagnosis: Last Documented On 1 2:43PM By Greer Kingston ; [facility], [facility] Ezetimibe 10 MG Oral Tablet 09/11/2020 Provider: FATOUMATA LESLIE MD Diagnosis: Last Documented On 1 1:13PM By Betzaida Donald ; [facility], [facility] Digoxin 125 MCG Oral Tablet 07/21/2020 Provider: Diagnosis: Last Documented On 1 2:44PM By Greer Kingston ; [facility], [facility] CoQ-10 10 MG Oral Capsule 10/20/2019 Provider: Diagnosis: Last Documented On 0 4:01PM By Greer Kingston ; [facility], [facility] D3-1000 25 MCG (1000 UT) Oral Capsule 10/20/2019 Pro vider: Diagnosis: Last Documented On 0 4:00PM By Greer Kingston ; [facility], [facility] Omeprazole 20 MG Oral Ta blet Delayed Release Disintegrating 10/20/2019 Provider: Diagnosis: Last Documented On 0 3:59PM By Greer Kingston ; [facility], [facility] Probiotic Maximum Strength Oral Capsule 10/20/2019 Provider: Diagnosis: Last Documented On 0 3:58PM By Greer Kingston ; [facility], [facility] Citalopram Hydrobromide 10 MG Oral Tablet 10/20/2019 Provider: Diagnosis: Last Documented On 0 3:56PM By Greer Kingston ; [facility], [facility] Flecainide Acetate 100 MG Oral Tablet 10/20/2019 Pro vider: Diagnosis: Last Documented On 0 3:55PM By Greer Kingston ; [facility], [facility] Past Medications on file oxyCODONE HCl 5 MG Oral Tablet 05/29/2022 - 06/03/2022 Provider: Eliseo ceja MD Diagnosis: 1-2 po q 4-6h Last Documented On 3 12:32PM By Hima Cuevas ; [facility], [facility] traMADol HCl 50 MG Oral Tablet 05/29/2022 - 06/03/2022 Provider: Eliseo ceja MD Diagnosis: 1-2 po q 4-6h Last Documented On 3 12:32PM By Hima Cuevas ; [facility], [facility] Lovenox 40 MG/0.4ML Injection Solution Prefilled Syringe 05/26/2022 - 05/30/2022 Provider: Eliseo ceja MD Diagnosis: 1 sub q injection 1 time day Last Documented On 3 8:35AM By Hima Cuevas ; [facility] Cefadroxil 500 MG Oral Capsule 05/21/2022 - 05/24/2022 Provider: Eliseo ceja MD Diagnosis: twice a day Last Documented On 3 12:08PM By Hima Cuevas ; [facility] Colace 100 MG Oral Capsule 05/21/2022 - 08/19/2022 Provider: Eliseo ceja MD Diagnosis: 1-2 tabs daily Last Documented On 3 12:08PM By Hima Cuevas ; [facility] traMADol HCl 50 MG Oral Tablet 05/21/2022 - 05/26/2022 Provider: Eliseo ceja MD Diagnosis: 1-2 po q 4-6h Last Documented On 3 12:08PM By Hima Cuevas ; [facility] Acetaminophen 500 MG Oral Tablet 05/21/2022 - 06/20/2022 Provider: Eliseo Cuevas MD Diagnosis: 2 three times a day Last Documented On 3 12:08PM By Hima Cuevas ; [facility] oxyCODONE HCl 5 MG Oral Tablet 05/21/2022 - 05/26/2022 Provider: Eliseo ceja MD Diagnosis: 1-2 po q 4-6h Last Documented On 3 12:08PM By Hima Cuevas ; [facility] Ondansetron HCl 4 MG Oral Tablet 05/21/2022 - 05/26/2022 Provider: Eliseo Cuevas MD Diagnosis: [id number] Last Documented On 3 12:08PM By Hima Cuevas ; [facility] Meloxicam 15 MG Oral Tablet 05/21/2022 - 06/20/2022 Provider: Eliseo ceja MD Diagnosis: once a day Last Documented On 3 12:08PM By Hima Cuevas ; [facility] HYDROcodone-Acetaminophen 7. 5-325 MG Oral Tablet 10/25/2020 - 11/14/2020 Provider: Brandon Wilks MD Diagnosis: twice a day Last Documented On 1 12:08PM By Dr. Wilks ; [facility] Irving 5-325MG Oral Tablet 12/23/2018 - 01/22/2019 Provider: Eliseo ceja MD Diagnosis: 1-2 po q6h prn pain Last Documented On 9 3:09PM By Reanna Gutierrez ; [facility] Acetaminophen 500MG Oral Tablet 12/08/2018 - 01/07/2019 Provider: Eliseo Cuevas MD Diagnosis: 2 three times a day FOR BACON RGERY DO NOT FILL UNTIL 12/14/18 Last Documented On 9 4:10PM By Reanna Gutierrez ; [facility] traMADol HCl 50MG Oral Tablet 12/08/2018 - 12/13/2018 Provider: Eliseo ceja MD Diagnosis: 1-2 po q6h prn pain FOR BACON RGERY DO NOT FILL UNTIL 12/14/18 Last Documented On 9 4:06PM By Reanna Gutierrez ; [facility] Neurontin 300MG Oral Capsule 12/08/2018 - 03/08/2019 Provider: Eliseo ceja MD Diagnosis: 1 every bedtime FOR SURGER Y DO NOT FILL UNTIL 12/14/18 Last Documented On 9 4:05PM By Reanna Gutierrez ; [facility] Dilaudid 2MG Oral Tablet 12/08/2018 - 12/10/2018 Provi gaby: Eliseo Cuevas MD Diagnosis: 1-2 po q6h prn pain (RESCUE PAIN) FOR SURGERY DO NOT FILL UNTIL 12/14/18 Last Documented On 9 4:05PM By Reanna Gutierrez ; [facility] Colace 100MG Oral Capsule 12/08/2018 - 03/08/2019 Provider: Eliseo ceja MD Diagnosis: 1-2 tabs daily FOR SURGERY DO NOT FILL UNTIL 12/14/18 Last Documented On 9 4:10PM By Reanna Gutierrez ; [facility] Mupirocin 2% External Ointment 11/09/2018 - 11/14/2018 Provider: Eliseo ceja MD Diagnosis: Apply to nostrils 3 time a d ay 5 days prior to surgery. Last Documented On 9 10:40AM By Gilda Kamara ; [facility] Irving 5-325MG Oral Tablet 12/24/2017 - 12/31/2017 Prov ider: Brandon Wilks MD Diagnosis: 1-2 po q 4-6h PRN Last Documented On 8 5:31PM By Dr. Wilks ; [facility] Irving 7.5-325 MG OR TABS 12/24/2017 - 01/03/2018 Provi gaby: Brandon Wilks MD Diagnosis: Last Documented On 8 11:35AM By Marcelle Croft ; [facility] Voltaren Gel 1% External 10/14/2017 - 12/13/2017 Provi gaby: Alanna Jensen MD Diagnosis: use as directed Last Documented On 8 10:09AM By Sayra Evans ; [facility] Lovenox 40MG/0.4ML Subcutaneous Solution 05/06/2017 - 05/26/2017 Provider: Alanna castaneda MD Diagnosis: use as directed/1 INJECTION PER DAY FOR 5 DAYS PRIOR TO PROCEDER & 1 INJECTION PER DAY FOR 5 DAYS AFTER PROCERDER/ Last Documented On 8 4:29PM By Sayra Evans ; [facility] Irving 5-325 MG Tablet 10/29/2016 - 11/05/2016 Provider : Alanna Jensen MD Diagnosis: 1-2 po q 4-6h PRN Last Documented On 7 11:55AM By Camryn Paez ; [facility] Medrol 4 MG Tablet Therapy Pack 02/14/2016 - 02/20/2016 Provider: Alanna chin MD Diagnosis: use as directed by pharmacy Last Documented On 6 3:16PM By Heather Langley ; [facility] Irving 5-325 MG Tablet 12/03/2015 - 12/18/2015 Provider : Alanna Jensen MD Diagnosis: 1-2 po q 4-6h Last Documented On 6 1:26PM By Heather Langley ; [facility] Irving 7.5-325 MG Tablet 11/16/2015 - 12/16/2015 Provid er: Alanna Jensen MD Diagnosis: 1 every 4 - 6 hours PO PRN Last Documented On 6 2:09PM By aLni Marquez ; [facility] Voltaren 1% TD GEL 01/31/2013 - 03/02/2013 Provider: Alanna Jensen MD Diagnosis: DEGENERATIVE MIKEY NT DISEASE KNEE apply 4 grams to affected ar ea 4 times a day//ks Last Documented On 3 2:16PM By Ann Marie Sutherland ; [facility] Lortab 10-500 MG OR TABS 09/14/2012 - 09/21/2012 Provi gaby: Alanna Jensen MD Diagnosis: [id number] [facility] jsb/df Last Documented On 3 8:56AM By Jose F Gutierrez ; [facility] Lortab 10-500 MG OR TABS 08/06/2012 - 08/13/2012 Provi gaby: Alanna Jensen MD Diagnosis: [phone] [facility] jsb/df Last Documented On 3 1:59PM By Jose F Gutierrez ; [facility] Lortab 10-500 MG OR TABS 07/09/2012 - 07/16/2012 Provi gaby: Alanna Jensen MD Diagnosis: [phone] [facility] jsb Last Documented On 3 12:36PM By Jose F Gutierrez ; [facility] Lortab 10-500 MG OR TABS 07/01/2012 - 07/08/2012 Provi gaby: Alanna Jensen MD Diagnosis: [phone] [facility] df Last Documented On 3 1:53PM By Jose F Gutierrez ; [facility] Xarelto 10 MG OR TABS 06/14/2012 - 07/05/2012 Provider : Alanna Jensen MD Diagnosis: sx on 06-15-//kw Last Documented On 3 1:31PM By Danielle Dobson ; [facility] Lortab 10-500 MG OR TABS 06/14/2012 - 06/21/2012 Provi gaby: Alanna Jensen MD Diagnosis: sx on 06-15- Last Documented On 3 1:31PM By Danielle Dobson ; [facility], [facility] Medications Administered Includes: Administered Medications from this encounter No Administered Medications Recorded Vital Signs Includes: Vital Signs from this encounter Vital Name 08/18/2023 03:29P Height (in) 65 Weight (lb) 172 Body Mass Index 28.6 Body Surface Area 1.9 Note: tm Last Documented: On 08/18/2023 3:30PM ; [facility], [facility] Results Includes: Results discussed during this encounter No Results Recorded For Specified Dates History of Present Illness Includes: History of Present Illness from this encounter MAYCOL Skaggs is an 83 year old female. - Allergy list reviewed - Problem list reviewed - Medication list reviewed Social History Description Last Updated Tobacco non-user 04/14/2024 Last Documented On 4 3:03PM ; [facility], [facility] Alcohol use 10/25/2020 Last Documented On 4 3:03PM ; [facility], [facility] Recent change in diet 10/25/2020 Last Documented On 4 3:03PM ; [facility], [facility] Non-smoker 10/17/2020 Last Documented On 4 3:03PM ; [facility], [facility] Not exercising regularly 10/31/2019 Last Documented On 4 3:03PM ; [facility], [facility] Smoking Status Unknown Procedures and Surgical History Includes: Procedures from this encounter Procedures Code Diagnosis Performing Provider Service L ocation Service Date use of tobacco assessment performed 1000F Last Documented On 4 3:03PM ; [facility], [facility] patient screened for future fall risk: documentation of any fall with injury in past year 1100F Last Documented On 4 3:03PM ; [facility], [facility] review of medications documented 1160F Last Documented On 4 3:30PM ; [facility], [facility] follow-up visit in one month Last Documented On 4 3:03PM ; [facility], [facility] referral to physician Last Documented On 4 3:03PM ; [facility] an X-ray was performed 03570 Last Documented On 4 3:03PM ; [facility], [facility] Surgical History Last Updated History of back surgery 11/2019-Kypho T1 2 10/17/2020 Last Documented On 4 3:03PM ; [facility] History of heart surgery ablation 2017 0 10/31/2019 Last Documented On 4 3:03PM ; [facility], [facility] History of total hip replacement left hi p 201810/31/2019 Last Documented On 4 3:03PM ; [facility], [facility] History of total knee arthroplasty right knee 201210/31/2019 Last Documented On 4 3:03PM ; [facility], [facility] History of hysterectomy 10/16/2014 Last Documented On 4 3:03PM ; [facility], [facility] Medical History Includes: Medical History addressed during this encounter Description Last Updated Recent immunization for flu 02/01/2022 1 06/15/2023 Last Documented On 4 3:03PM ; [facility], [facility] Recent immunization for pneumococcal pne umonia 201304/14/2024 Last Documented On 4 3:03PM ; [facility], [facility] History of Irregular Heartbeat A-fib; ep isode after TKA- cadiovert needed 06/16/2022 Last Documented On 4 3:03PM ; [facility], [facility] blood transfusions 10/25/2020 Last Documented On 4 3:03PM ; [facility], [facility] Arthritis 10/25/2020 Last Documented On 4 3:03PM ; [facility], [facility] Heartburn / Acid Reflux 10/25/2020 Last Documented On 4 3:03PM ; [facility], [facility] History of Blood Clots 10/25/2020 Last Documented On 4 3:03PM ; [facility], [facility] History of Blood Transfusion 10/25/2020 Last Documented On 4 3:03PM ; [facility], [facility] History of Cancer 10/25/2020 Last Documented On 4 3:03PM ; [facility], [facility] History of Fractures 10/25/2020 Last Documented On 4 3:03PM ; [facility], [facility] History of heart disease 10/25/2020 Last Documented On 4 3:03PM ; [facility], [facility] Hypertension 10/25/2020 Last Documented On 4 3:03PM ; [facility] Irregular Heartbeat 10/25/2020 Last Documented On 4 3:03PM ; [facility] Past Surgical History: wrist repair ~hand sx ~gallstone sx 2011 ~mastectomy and reconstruction ~colonoscopy 2018 10/25/2020 Last Documented On 4 3:03PM ; [facility], [facility] Previous Fractures 10/25/2020 Last Documented On 4 3:03PM ; [facility], [facility] Sleep Apnea 10/25/2020 Last Documented On 4 3:03PM ; [facility], [facility] Use of CPAP 10/25/2020 Last Documented On 4 3:03PM ; [facility], [facility] Back surgery 12/15/2017 L4-5 Posterior Decompression and Fusion @ E ~11/07/2019 T12 Kyphyoplasty 10/25/2020 Last Documented On 4 3:03PM ; [facility], [facility] Heart surgery pacemaker 12/2019 ~Afib ab lation 10/25/2020 Last Documented On 4 3:03PM ; [facility] History of Gallbladder 10/25/2020 Last Documented On 4 3:03PM ; [facility], [facility] Hysterectomy 10/25/2020 Last Documented On 4 3:03PM ; [facility], [facility] Total hip replacement 12/2018-Left hip 0 10/17/2020 Last Documented On 4 3:03PM ; [facility] A previous fracture 10/31/2019 Last Documented On 4 3:03PM ; [facility] Gallbladder disease 2018 10/31/2019 Last Documented On 4 3:03PM ; [facility] History of diverticulitis of colon 11/15 Last Documented On 4 3:03PM ; [facility] History of osteoporosis 11/16/2015 Last Documented On 4 3:03PM ; [facility] A history of cancer 10/16/2014 Last Documented On 4 3:03PM ; [facility] Arthritic joint problems 10/16/2014 Last Documented On 4 3:03PM ; [facility] Family History Includes: Family History addressed during this encounter Description Last Updated Family history of cancer mother ~father 11/16/2015 Last Documented On 4 3:03PM ; [facility] Family history of diabetes mellitus moth er 11/16/2015 Last Documented On 4 3:03PM ; [facility] Family history of heart disease mother ~ father 11/16/2015 Last Documented On 4 3:03PM ; [facility] Family history of hypertension mother ~f ather 11/16/2015 Last Documented On 4 3:03PM ; [facility] Family history of osteoporosis mother Last Documented On 4 3:03PM ; [facility] Family history of rheumatoid arthritis m other 11/16/2015 Last Documented On 4 3:03PM ; [facility] Family history of thromboembolic disease mother 11/16/2015 Last Documented On 4 3:03PM ; [facility] Maternal history of hypertension 015 Last Documented On 4 3:03PM ; [facility] Maternal history of osteoporosis 015 Last Documented On 4 3:03PM ; [facility] Review of Systems Includes: Review of [...] ctive Last Documented On 4 12:09PM ; [facility] Statins Support Allergy 06/09/2017 Act citlalli Last Documented On 4 12:09PM ; [facility], [facility] Percocet Allergy 03/10/2012 Active Last Documented On 4 12:09PM ; [facility], [facility] Bactrim Allergy 11/16/2015 Active Last Documented On 4 12:09PM ; [facility] Encounters Encounter Provider Location Date Check-In Time Check-Out Time Diagnosis Follow Up Hernan Gold PA-C [facility] 4 3:15PM 3:34PM Overweight Insurance Includes: Active Insurance Policies Plan Name Member ID Group # Subscriber Relationship Effect citlalli Dates 1 - Medicare Part B [facility] [id number] Luz Kit Giles Self 04/03/2007 - Unknown 2 - [employer] [id number] PLAN F Luz Skaggs Self 2011 - Unknown Clinical Notes Includes: Clinical Notes from this encounter * Progress note Date Encounter Last Documented by 08/18/2023 Follow Up Last documented on 09/01/2023; 8:29 AM, Hernan Gold PA-C; [facility] Active Problems & Conditions - Joint [...] directed 0 days, 0 refills - Ipratropium [place] 0.03% Nasal Solution take as directed 0 days, 0 refills - Lagevrio 200 MG Oral Capsule 5 days, 0 refills - Lagevrio 200 MG Oral Capsule 5 days, 0 refills - MegaRed Rush-3 Krill Oil 350 MG Oral Capsule once [...] refills - Sudafed 30 MG Oral Tablet 2wrx9-6m 0 days, 0 refills - Warfarin Sodium [...] 12/15/2017 L4-5 Posterior Decompression and Fusion @ [facility] [place] 11/07/2019 T12 Kyphyoplasty - Total hip replacement left hip 2018 - Total hip replacement 12/2018-Left hip - Total knee arthroplasty right knee 2012 Social History Current diet: Recent change in diet. Tobacco use: Tobacco non-user and non-smoker. Alcohol: Alcohol use. Habits: Not exercising regularly. Allergies - Bactrim [...] allergic reaction. Physical Findings - Vitals taken 08/18/2023 03:29 pm tm Height 65 in Weight 172 lbs Body Mass Index 28.6 kg/m2 Body Surface Area 1.9 m2 Patient alert and oriented x3 Normal weight Normal gait Left knee exam Incision well healed No residual swelling ROM WNL TA/Gastroc/Quad firing Neurovascularly baseline Tests Three-view x-ray left knee taken today demonstrates well-appearing TKA Assessment - Overweight 1 year status post left TKA Previous Tests Imaging: [...] therapy has been discussed with the patient. Overall patient is very pleased with the knee surgery, no complaints today. We will plan for follow up 5 year postop intervals Notes This dictation was done with voice recognition software and may contain errors and omissions. Practice Management Use of tobacco assessment performed and patient screened for future fall risk documentation of any fall with injury in past year Review of medications documented. Care Team - FATOUMATA LESLIE MD - [employer]EDULER
== END 2024-08-18 23:59 | disposition home or self-care (01) ==
LOC: LAB.DROPOF 14:54
PROVIDERS: PCP Internal Medicine; Visit Provider Internal Medicine
DX: I11.0 Hypertensive heart disease with heart failure (principal); I50.40 Unspecified combined systolic (congestive) and diastolic (congestive) heart failure; I48.0 Paroxysmal 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; E78.5 Hyperlipidemia, unspecified; M81.0 Age-related osteoporosis without current pathological fracture
CPT/HCPCS: 80053; 80061; 85007; 85025; 85027

== ENCOUNTER 2024-09-07 15:00 | Outpatient (CLI) | payer MEDICARE, OTHER, SELFPAY | END 2024-09-07 23:59 | disposition home or self-care (01) | LOC: LAB.DROPOF 09-08 11:13 | PROVIDERS: PCP Internal Medicine; Visit Provider Internal Medicine | DX: N39.0 Urinary tract infection, site not specified (principal); B96.20 Unspecified Escherichia coli [E. coli] as the cause of diseases classified elsewhere | CPT/HCPCS: 87086; 87088; 87186 ==

== ENCOUNTER 2024-09-15 11:57 | Outpatient (CLI) | payer MEDICARE, OTHER, SELFPAY ==
[2024-09-15 12:13] LABS: Basophils # 0.1 K/mm3 (0-0.2); Basophils % 0.7 % (0.1-2.0); Eosinophils # 0.1 Kmm3 (0.0-0.4); Eosinophils % 1.3 % (0.1-12.0); Hematocrit 40.2 % (37.0-47.0); Hemoglobin 13.2 g/dL (12.2-16.2); Immature Granulocytes # 0.11 10^3uL; Immature Granulocytes % 1.6 %; Lymphocytes # 1.4 K/mm3 (0.7-4.5); Lymphocytes % 20.7 % (10-50); Mean Corpuscular HGB Conc 32.8 g/dL (31.8-35.4); Mean Corpuscular Hemoglobin 30.2 pg (27.0-31.2); Mean Platelet Volume 10.2 fl (7.4-10.4); Monocytes # 1.7 K/mm3 (0.1-1.0); Monocytes % 25.1 % (1.7-9.3); Neutrophils # 3.5 K/mm3 (1.8-7.8); Neutrophils % 50.6 % (37.0-80.0); Nucleated Red Blood Cells # 0 10^3/uL; Nucleated Red Blood Cells % 0 %; Platelet Count 220 K/mm3 (142-424); Red Blood Count 4.37 M/mm3 (4.20-5.40); Red Cell Distribution Width-SD 46.8 fL; White Blood Count 6.9 K/mm3 (4.8-10.8)
[2024-09-15 12:14] LABS: MANUAL DIFFERENTIAL MANUAL DIFFERENTIAL (MANUAL DIFF)
[2024-09-15 12:39] LABS: Alanine Aminotransferase 16 U/L (12-78); Albumin Level 4.6 g/dl (3.5-5.0); Alkaline Phosphatase 76 U/L (38-126); Anion Gap 10.7 mEq/L (5-15); Aspartate Amino Transferase 30 U/L (14-36); Bilirubin,Total 0.6 mg/dl (0.2-1.3); Blood Urea Nitrogen 24 mg/dl (7-17); Calcium 9.1 mg/dl (8.4-10.2); Carbon Dioxide 25 mmol/L (22.0-30.0); Chloride 106 mmol/L (98-107); Estimated Glomerular Filt Rate 43 ml/min (>60); GFR (African American) 52 ML/MIN (>60); Globulin 2.3 g/dL (1.3-3.2); Glucose 92 mg/dl (74-100); Potassium 4.7 mmoL/L (3.5-5.1); Sodium 137 mmol/L (136-145); Total Protein,Serum 6.9 g/dl (6.3-8.2)
[2024-09-15 12:41] LABS: Erythrocyte Sedimentation Rate 11 mm/hr (0-30)
[2024-09-15 12:44] LABS: C-Reactive Protein 1.4 mg/L (0-4)
[2024-09-15 12:55] LABS: Eosinophils % 2 % (0-3); Lymphocytes % 26 % (10-50); Monocytes % 21 % (2-9); Neutrophils % 51 % (42-76); Total Cells Counted 100
[2024-09-15 12:57] LABS: Platelet Estimate Normal; RBC Morphology Normal
== END 2024-09-15 23:59 | disposition home or self-care (01) ==
LOC: LAB 11:59
PROVIDERS: PCP Internal Medicine; Visit Provider Internal Medicine
DX: M05.79 Rheumatoid arthritis with rheumatoid factor of multiple sites without organ or systems involvement (principal)
CPT/HCPCS: 36415; 80053; 85007; 85025; 85027; 85651; 86140

== ENCOUNTER 2024-09-28 10:37 | Outpatient (CLI) | payer MEDICARE, OTHER, SELFPAY ==
--- NOTE | 2024-09-28 | ECG_ITS ---
APPROVED REPORT Exam: Resting ECG HR:75 bpm ECG Measurements Heart Rate 75 AXES AL 190 P 64 QRSd 107 QRS 79 QT 426 T -68 QTc 454 Conclusion SINUS RHYTHM WITH FREQUENT VENTRICULAR PREMATURE COMPLEXES ANTEROSEPTAL MYOCARDIAL INFARCTION , OF INDETERMINATE AGE [40+ ms Q WAVE IN V1-V4] MODERATE T-WAVE ABNORMALITY, CONSIDER LATERAL ISCHEMIA [-0.1+ mV T-WAVE IN I/aVL/V5/V6] MODERATE T-WAVE ABNORMALITY, CONSIDER INFERIOR ISCHEMIA [-0.1+ mV T-WAVE IN II/aVF] ABNORMAL ECG UNCONFIRMED REPORT Electronically signed by : Savage Phillips MD 09/29/2024 07:30:59
== END 2024-09-28 23:59 | disposition home or self-care (01) ==
LOC: RT 10:38
PROVIDERS: PCP Internal Medicine; Visit Provider Internal Medicine Clinical Cardiac Electrophysiology
DX: I49.3 Ventricular premature depolarization (principal); I25.2 Old myocardial infarction; R94.31 Abnormal electrocardiogram [ECG] [EKG]; I48.0 Paroxysmal 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
CPT/HCPCS: 93005

== ENCOUNTER 2024-11-14 14:47 | Outpatient (CLI) | payer MEDICARE, OTHER, SELFPAY ==
--- OUTSIDE RECORDS SUMMARY | 2024-11-14 14:50 | XMS_ITS | Encounter Summary ---
Author Organization [employer] ([place], [place], [place], [place]) Address [address] [place] [address] Care Team Providers Care Meteorology Teacher Name Role Phone Ferny Gentile Primary Care Provider Encounter Details Date Type Department Care Team (Late st Contact Info) Description 12/15/2018 Transcribed Document [facility] [place] Family Medicine [facility] [place] [address] ProviderArt MD [address] [place] [address] Social History Tobacco Use Types Packs/Day Years Used Date Smoking Tobacco: Never Assessed Comments Unknown Sex and Gender Information Value Date Recorded Sex Assigned at Female 10/29/2021 6:07 PM CDT Legal Sex Female 6:07 PM CDT Gender Identity Female 10/29/2021 6:07 PM CDT Sexual Orientation Not on file documented as of this encounter Miscellaneous Notes * Cerner Conversion Note - Art ProviderMD - 12/15/2018 9:28 AM CDT Stroke/Warfarin Instructions Entered On: 12/15/2018 9:29 EDT Performed On: 12/15/2018 9:28 EDT by JUAN ANTONIO WHITLEY RN Stroke/Warfarin Instructions Stroke/TIA Discharge Ins : N/A Warfarin Discharge Ins : N/A JUAN ANTONIO WHITLEY RN - 12/15/2018 9:28 EDT documented in this encounter Plan of Treatment Not on file documented as of this encounter Visit Diagnoses Not on filedocumented in this encounter Care Teams Meteorology Teacher Relationship Specialty Start Date End Date Ferny Gentile [address] [place] [address] PCP - General 05/22/22 documented as of this encounter
--- OUTSIDE RECORDS SUMMARY | 2024-11-14 14:50 | XMS_ITS | Encounter Summary ---
Author Organization [employer] ([place], [place], [place], [place]) Address [address] [place] [address] Care Team Providers Care Fountain Manager Name Role Phone Ferny Gentile Primary Care Provider [phone] Encounter Details Date Type Department Care Team (Late st Contact Info) Description 12/14/2018 Transcribed Document [facility] [place] [facility] [place] [address] ProviderArt MD [address] [place] [address] Social History Tobacco Use Types Packs/Day [...] Cerner Conversion Note - Art ProviderMD - 12/14/2018 11:38 AM CDT Treatment Intervention, OT Entered On: 12/15/2018 11:06 EDT Performed On: 12/15/2018 10:26 EDT by LOKI BLANTON OTR/Buck General Information, OT Visit Type, OT : Treatment Note Patient Orders : Order Date Order Ordering 12/14/2018 10:12 OT Evaluation and Treatment Ordered By: MATTHEW BANEGAS MD-ORThoe 12/14/2018 10:12 OT Treatment Instructions Ordered By: MATTHEW BANEGAS MD-ORT 12/14/2018 11:38 Occupational Therapy Additional Tx Ordered By: Active Diagnoses : 12/15/2018 12:00 Pain in unspecified hip Admission Date : 12/14/2018 04:48 Personal Devices : Personal Devices Glasses Assistive Devices : Assistive Devices Cane Precautions in Place : Fall prevention measures LOKI BLANTON OTR/Buck - 12/15/2018 10:58 EDT General Status Patient Received Status : Long sitting in bed, Other: scds Treatment Start Time : 12/15/2018 10:00 EDT Patient Left Status : Up in chair, Chair alarm activated, RN/PCT informed, All needs met and within reach, Other: scds RN/PCT Informed Comment : RN Ok'd to tx, ID and verified Treatment End Time : 12/15/2018 10:26 EDT Treatment Time : 26 Minute(s) LOKI BLANTON OTR/Buck - 12/15/2018 10:58 EDT Self Care/Home Management, OT Upper Body Dressing Assist Level, OT : Supervision or set-up Upper Body Dressing Device Comment, OT : setup seated, assist to hook bra only Lower Body Dressing Assist Level, OT : Supervision or set-up Lower Body Dressing Device Comment, OT : CGA and cues for technique for LB dressing for underwear and pants, extra time to complete Toileting Assist Level : Supervision or set-up Toileting Device : Commode, bedside Toileting Comment : SBA/CGA cues for safety Toilet Transfer Assist Level : Supervision or set-up Toilet Transfer Device : Belt, gait, Commode, bedside, Walker, rolling Toilet Transfer Device Comment : CGA /SBA and cues for safety, BSC over toilet Bed/Chair/WC Transfer Assist Level : Supervision or set-up Bed/Chair/WC Transfer Device : Belt, gait, Walker, front wheel Bed/Chair/WC Device Comment : CGA/SBA transfer to chair , cues safety LOKI BLANTON OTR/Buck - 12/15/2018 10:58 EDT Mobility Device/Prosthesis/Wt Bearing Weight Bearing Status Maintained : Yes Weight Bearing Status : As tolerated Functional Mobility Device : Gait belt, Walker, front wheel Functional Mobility with Brace/Splint : No LOKI BLANTON OTR/Buck - 12/15/2018 10:58 EDT Functional Mobility Mobility Grid Supine to Sit : Rehab Minimal assistance (Comment: education on use of gait belt to assist LLE to EOB [LOKI BLANTON OTR/Buck - 12/15/2018 10:58 EDT] ) Sit to Stand : Supervision/set-up (Comment: CGA [LOKI BLANTON OTR/Buck - 12/15/2018 10:58 EDT] ) Bed to Chair : Supervision/set-up (Comment: CGA [LOKI BLANTON OTR/Buck - 12/15/2018 10:58 EDT] ) Stand to Sit : Supervision/set-up (Comment: CGA [LOKI BLANTON OTR/Buck - 12/15/2018 10:58 EDT] ) LOKI BLANTON OTR/Buck - 12/15/2018 10:58 EDT Functional MobilityComment : gait belt, using rw pt completes functional mobility bed <-> bathroom , toilet transfer and returns to recliner CGA/SBA, cues for safety LOKI BLANTON OTR/Buck - 12/15/2018 10:58 EDT Education OT Occupational Therapy Education Grid Activity of Daily Living Training : Verbalizes understanding, Returns demonstration Functional Mobility Training : Verbalizes understanding, Returns demonstration Home Safety : Verbalizes understanding LOKI BLANTON OTR/Buck - 12/15/2018 10:58 EDT Plan of Care, OT OT Tx Plan/Goals Established w Patient : No Reason OT Treatment/Plan Not Established : pt will be discharging home today, goals met LOKI BLANTON OTR/Buck - 12/15/2018 10:58 EDT Prison Goals, OT Other LTG Grid Goal #1 Goal #2 Goal #3 Goal : pt to perform LB ADL task CGA using AD PRN pt to perform functional ADL transfers CGA at rw level pt to verbalize understanding of home safety/car transfers Date to Meet : 12/21/2018 EDT 12/21/2018 EDT 12/21/2018 EDT Goal Status : Goal met Goal met Goal met Date Met : 12/15/2018 EDT 12/15/2018 EDT 12/15/2018 EDT LOKI BLANTON OTR/Buck - 12/15/2018 10:58 EDT LOKI BLANTON OTR/L - 12/15/2018 10:58 EDT LOKI BLANTON OTR/L - 12/15/2018 10:58 EDT Treatment Note Subjective Comment : pt agrees to tx, reports feeling generally weak Patient's Response to Treatment : extra time to complete ADL, extra time to complete Additional Objective Information : ADL Assessment : pt met 3/3 acute care OT goals Plan for Treatment : pt will be discharging home with home health therapy and family assist LOKI BLANTON OTR/Buck - 12/15/2018 10:58 EDT Pain Assessment Pain Scaled Used : 0-10 Pain scale Pain Score Pre-Intervention : 8 Location : Hip, left Pain Comment : pt medicated just prior to tx LOKI BLANTON OTR/Buck - 12/15/2018 10:58 EDT Image 1 - Images currently included in the form version of this document have not been included in the text rendition version of the form. [facility] OT Charges OT Selfcare/Hm Mgmt Ea 15 Min : 2 LOKI BLANTON OTR/Buck - 12/15/2018 10:58 EDT documented in this encounter Plan of Treatment Not on file documented as of this encounter Visit Diagnoses Not on filedocumented in this encounter Care Teams Fountain Manager Relationship Specialty Start Date End Date Ferny Gentile [address] [place] [address] PCP - General 05/22/22 documented as of this encounter
--- OUTSIDE RECORDS SUMMARY | 2024-11-14 14:50 | XMS_ITS | Encounter Summary ---
Author Organization [employer] ([place], [place], [place], [place]) Address [address] [place] [address] Care Team Providers Care Account Services Coordinator Name Role Phone Ferny Gentile Primary Care Provider Encounter Details Date Type Department Care Team (Late st Contact Info) Description 12/14/2018 Transcribed Document [facility] [place] [address] ProviderArt MD [address] [place] [id number] Social History Tobacco Use Types Packs/Day Years [...] Conversion Note - Art ProviderMD - 12/14/2018 4:48 AM CDT Admission History, Adult Entered On: 12/14/2018 10:43 EDT Performed On: 12/14/2018 4:48 EDT by Amandeep Martinez RN Advance Directive Patient has Advance Directive *Q : Yes, Advance Directive not with the patient Advance Directive Type : Living will Copy Advance Directive Verified/on Chart : No Amandeep Martinez RN - 12/14/2018 10:39 EDT Anesthesia/Transfusion History Family History of Anesthesia Reaction : Prior transfusion without reaction Blood Transfusion Acceptable to Patient : Yes Transfusion History : Prior anesthesia without reaction Family History of Anesthesia Reaction : None Amandeep Martinez RN - 12/14/2018 10:39 EDT Functional Assessment Living Situation : Home Patient Lives With : Alone Persons Assisting Patient at Home : Child/Children Current Daily Living Assistance : None Sensory Deficits : None Mobility Assistance Prior to Admission : Partial assistance BARCENAS Hx Falls Immediate/Within 3 Months : Yes Current Home Treatments : CPAP Home Equipment : Cane, CPAP unit, Walker Cane : Cane, narrow based Walker : Walker, four wheel Professional Skilled Services : None Special Services and Community Resources : None Amandeep Martinez RN - 12/14/2018 10:39 EDT General Info Arrived From : Home Mode of Arrival on Unit : Ambulatory Legal Guardian : Daughter Want Family/Rep/Phys Notified of Admit : No Emergency Contact #1 : Jesi Emergency Contact #1 Emergency Contact #1 Relationship : daughter Emergency Contact #2 : - Emergency Contact #2 Phone Number : - Emergency Contact #2 Relationship : - Information Obtained From : Patient Primary Language : Cambodian Preferred Communication Mode : Verbal Communication Barrier : None Currently Lactating : No Status : N/A Amandeep Martinez RN - 12/14/2018 10:39 EDT Fall Risk Scales ABCs Fall Injury Risk Identification : Age, Bones, Surgery ABC Fall Injury Risk : Moderate to high injury risk Injury Moderate to High Risk Interventions : Bed alarm on, Chair alarm on, High Risk for Fall Injury sign in place per policy, Transport methods appropriate to patient, Visual cues in place, Wrist band (fall risk) on per policy BARCENAS Hx Falls Immediate/Within 3 Months : No Barcenas Secondary Diagnosis : Yes BARCENAS Use of Ambulatory Aid : Bed rest/Nurse assist BARCENAS IV Therapy or IV Access : Yes Barcenas Gait/Transferring : Weak Anastasiia Mental Status : Oriented to own ability Barcenas Fall Risk Score : 45 BARCENAS Fall Scale Risk Level : 25-45 Medium Risk [place] Fall Interventions : Adequate lighting, Assistive devices within reach, Bed in low position, Call device within reach, Fall prevention handout/education per facility policy, Frequent orientation to call device, Frequent orientation to surroundings, Hourly comfort/safety rounds, Non-slip footwear, Personal items within reach, Reinforced to call for assistance before getting out of bed, Room free of clutter/spills, Upper side-rails up, Wheels locked, Wires/Cords secured Fall Moderate to High Risk Interventions : Bed alarm on Amandeep Martinez RN - 12/14/2018 10:39 EDT Fall Risk Education Grid Alarms : Verbalizes understanding Assistive Equipment Use : Verbalizes understanding Bed Height/Stabilization : Verbalizes understanding Call light use : Verbalizes understanding Door Open : Verbalizes understanding Environmental Management : Verbalizes understanding Eyeglasses Use : Verbalizes understanding Fall Community Resources : Verbalizes understanding Fall Contract/Letter : Verbalizes understanding Fall Prevention in the Home : Verbalizes understanding Fall Prevention Protocol : Verbalizes understanding Hearing Aid Use : Verbalizes understanding Home Risk Assessment : Verbalizes understanding Need Constant Observation : Verbalizes understanding Night Light Use : Verbalizes understanding Nonskid Footwear Use : Verbalizes understanding Notification of Staff When Leaving : Verbalizes understanding Orthostatic Hypotension Precautions : Verbalizes understanding Personal Article Availability : Verbalizes understanding Prevention Responsibility Family : Verbalizes understanding Prevention Responsibility Patient : Verbalizes understanding Risk Alert Methods : Verbalizes understanding Risk Factors : Verbalizes understanding Safety Aids : Verbalizes understanding Siderails use/risks : Verbalizes understanding Special Assistive Devices : Verbalizes understanding Staff Responsiveness : Verbalizes understanding Symptom Identification & Action Plan *Q : Verbalizes understanding Symptom Reporting : Verbalizes understanding Toileting Schedule : Verbalizes understanding Transfer/Mobility Techniques : Verbalizes understanding Urinal/Bedpan Availability : Verbalizes understanding Wait for Assistance : Verbalizes understanding Wheelchair Safety : Verbalizes understanding Amandeep Martinez RN - 12/14/2018 10:39 EDT Barriers to Learning : None evident Learning Style Preferences Family : Printed materials, Verbal explanation Learning Style Preferences Patient : Printed materials, Verbal explanation Fall Risk Scale Calc Temp : 1 Amandeep Martinez RN - 12/14/2018 10:39 EDT Health Histories Smoking Status : Never (less than 100 in lifetime; none in last 30 days) Smokeless Tobacco Status : Never Amandeep Martinez RN - 12/14/2018 10:39 EDT Social History (As Of: 12/14/2018 10:43:51 EDT) Tobacco: Never (less than 100 in lifetime) Smoking Status. Never Smokeless Tobacco Status. (Last Updated: 12/02/2018 11:37:29 EDT by CINDY DAVID, RN) Alcohol: Alcohol Use Frequency Socially. (Last Updated: 12/15/2017 07:16:58 EDT by RHONA GARLAND, MALISSA) Alcohol Use History Yes. Alcohol Use Frequency Rarely. (Last Updated: 12/02/2018 11:37:29 EDT by CINDY DAVID RN) Substance Abuse: Drug Use Hx: No. (Last Updated: 12/02/2018 11:37:29 EDT by CINDY DAVID RN) Height and Weight, Clinical Dosing Height Source : Stated Height Entry Format : [place] Height, Feet : 5 ft(Converted to: 152 cm, 60 Inch) Height, Inches : 7 Inch(Converted to: 0 ft 7 Inch, 17.78 cm) Clinical Height : 170.18 cm Weight Source : Standing scale Weight Entry Format : [place] Clinical Dosing Weight : 90.91 kg Weight, Pounds : 200 lb Body Surface Area (BSA) : 2.02 m2 Body Mass Index : 31.4 kg/m2 (HI) [place] Body Weight : 61 kg Amandeep Martinez RN - 12/14/2018 10:39 EDT Infectious Disease History Infectious Disease History : Influenza, Measles, Mumps Isolation Needed : Standard Fever/Chills Last 48 Hours : No Travel To Regions with Travel Advisories : No Travel Outside [place] Within Last 30 Days : No Contact With Traveler to Advisory Region : No Exposure to Contagious Illness : No Tuberculosis Symptoms : None Amandeep Martinez RN - 12/14/2018 10:39 EDT Influenza Vaccine Asmt, Adult Previous Vaccines from Immunization Schedule : No qualifying data available. Influenza Immunization, Current Season : Outside of influenza season Amandeep Martinez RN - 12/14/2018 10:39 EDT Pneumococcal Vaccine Previous Vaccines from Immunization Schedule : No qualifying data available. Pneumonia Immunization Received : Yes Pneumonia Immunization Date : 02/20/2017 EDT Amandeep Martinez RN - 12/14/2018 10:39 EDT Nutrition History Adaptive Feeding Equipment : Regular Eating Poorly Due to Decreased Appetite : No Unplanned Weight Loss in Past 3-6 Months : No Malnutrition Screening Tool Total(mal) : 0 Malnutrition Screening Tool Risk Level : Patient not at risk Amandeep Martinez RN - 12/14/2018 10:39 EDT Psychosocial History Does Someone Depend on You for Care? : No Do You Have a History of the Following? : Anxiety Currently in Unsafe Situation : No Do You Have a Support System? : Yes Tried to Harm Yourself in the Past? : No Thoughts of Harming/Killing Yourself : No Amandeep Martinez RN - 12/14/2018 10:39 EDT Sleep Apnea Risk Assmt BiPAP/CPAP Ordered for Home Use : Yes Hx of Obstructive Sleep Apnea Diagnosis : Yes BiPAP/CPAP Used at Home : Yes Age over 50 Years Old : Yes Gender Male : No Amandeep Martinez RN - 12/14/2018 10:39 EDT Valuables and Belongings Valuables and Belongings : Clothing, Personal devices, Assistive devices, Respiratory devices Clothing : Common streetwear Clothing Disposition : With family Personal Device Disposition : With family Personal Devices : Glasses Assistive Devices From Home : Cane Assistive Device Disposition : With family Respiratory Devices : CPAP Respiratory Device Disposition : With family Amandeep Martinez RN - 12/14/2018 10:39 EDT documented in this encounter Plan of Treatment Not on file documented as of this encounter Visit Diagnoses Not on filedocumented in this encounter Care Teams Account Services Coordinator Relationship Specialty Start Date End Date Ferny Gentile [address] [place] [id number] PCP - General 05/22/22 documented as of this encounter
--- OUTSIDE RECORDS SUMMARY | 2024-11-14 14:50 | XMS_ITS | Encounter Summary ---
Author Organization [employer] ([place], [place], [place], [place]) Address [address] [place] [address] Care Team Providers Care Pen Or Pencil Assembly Machine Operator Name Role Phone Ferny Gentile Primary Care Provider [phone] Encounter Details Date Type Department Care Team (Late st Contact Info) Description 12/15/2018 Transcribed Document [facility] [place] [address] ProviderArt MD [address] [place] [id number] Social History Tobacco Use Types Packs/Day [...] Conversion Note - Art ProviderMD - 12/15/2018 5:00 AM CDT Chart Check - Review Order Profile Entered On: 12/15/2018 3:02 EDT Performed On: 12/15/2018 5:00 EDT by Amos Robertosn RN Chart Check Powerplans Initiated/Discontinued as Appropriate : Yes All Active Orders Reviewed : Yes Amos Robertson RN - 12/15/2018 3:02 EDT Electronically signed by Brina Zamarripa Conversion Drug Abuse Treatment Specialist Cerner at 08/18/2022 11:13 AM CDT documented in this encounter Plan of Treatment Not on file documented as of this encounter Visit Diagnoses Not on filedocumented in this encounter Care Teams Pen Or Pencil Assembly Machine Operator Relationship Specialty Start Date End Date Ferny Gentile [address] [place] [address] PCP - General 05/22/22 documented as of this encounter
--- OUTSIDE RECORDS SUMMARY | 2024-11-14 14:50 | XMS_ITS | Clinical Summary ---
Author Organization [employer] ([place], [place], [place], [place]) Address [address] [place] [address] Care Team Providers Care Assistant Professor Of Geography Name Role Phone Sakina Gentilet Primary Care Provider [phone] Allergies Active Allergy Reactions Criticality Noted Date Comments Oxycodone-Acetaminophen 05/20/2022 HEADACHES Pravastatin 05/20/2022 MUSCLE WEAKNESS Sulfamethoxazole Rash Low 05/20/2022 Medications warfarin (COUMADIN, JANTOVEN) 5 MG tablet TAKE 1 TO 1 AND 1/2 TABLETS ONE TIME DAILY OR DIRECTED BY ANTICOAGULATION CLINIC 01/04/20 22 Active cetirizine (ZyrTEC) 10 MG tablet daily. Active omeprazole (PriLOSEC) 20 MG capsule daily. 11/06/19 22 Active ezetimibe (ZETIA) 10 mg tablet daily. Active ipratropium (ATROVENT) 42 mcg (0.06 %) 0.06% nasal spray 2 sprays by Nasal route. Active fluticasone propionate (FLONASE) 50 mcg/actuation nasal spray 1 spray daily. 04/16/20 22 Active furosemide (LASIX) 20 MG tablet Take 20 mg by mouth daily. 04/14/20 22 Active mirabegron (Myrbetriq) 50 mg Tb24 ER tablet Take 25 mg by mouth. Active polyethylene glycol (GLYCOLAX) 17 gram packet Take 17 g by mouth. Active glucosamine-ch ondroitin (Osteo Bi-Flex) 250-200 mg Tab Osteo Bi-Flex A ctive guaiFENesin (Mucinex) 600 mg 12 hr tablet every 12 (twelve) hours. Active magnesium oxide 400 mg magnesium Tab daily. Active sm-dfr-iifhcr- wqC75-wwf-sfe- 27 0.5-30-60-90 mg Cap daily. Active cholecalcifero l, vitamin D3, (Vitamin D3) 10 mcg (400 unit) Cap Vitamin D3 Active flecainide (TAMBOCOR) 150 MG tablet Take 150 mg by mouth 2 (two) times daily. Active digoxin (LANOXIN) 0.125 MG tablet Take 125 mcg by mouth daily. 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 Hypertension PAF (paroxysmal 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) Pacemaker GERD (controlled) Arthritis CHF (congestive heart failure) Social History Tobacco Use Types Packs/Day Years Used Date Smoking Tobacco: Never Smokeless Tobacco: Never Alcohol Use Standard Drinks/Week Comments Yes 0 (1 standard drink = 0.6 oz pur e alcohol) OCCASIONALLY Family and Community Support Answer Savage e Recorded Help with Day to Day Activities Not on file 05/22/2023 Feeling Lonely or Isolated Not on file 05/22 Educational Attainment Answer Date Alfredo rded Speak language other than Mauritian at home Not on file 05/22/2023 Want help with school or training Not on file 05/22/2023 Substance Use Answer Date Recorded Used prescription meds for non-medical reasons N ot on file 05/22/2023 Used illegal drugs past 12 months Not on file 05/22/2023 Comments Unknown Sex and Gender Information Value Date Recorded Sex Assigned at Female 10/29/2021 6:07 PM CDT Legal Sex Female 6:07 PM CDT Gender Identity Female 10/29/2021 6:07 PM CDT Sexual Orientation Not on file Last Filed Vital Signs Vital Sign Reading Time Taken Comments Blood Pressure 125/59 05/29/2022 5:24 PM EST Pulse 111 05/29/2022 5:24 PM EST Temperature 36.9 C (98.4 F) 05/29/2022 5:24 PM EST Respiratory Rate 18 05/29/2022 5:24 PM EST Oxygen Saturation 95% 05/29/2022 5:24 PM EST Inhaled Oxygen Concentration - - Weight 76.2 kg (168 lb) 05/26/2022 10:27 AM EST Height 162.6 cm (5' 4 ) 05/26/2022 10:27 AM EST Body Mass Index 28.84 05/26/2022 10:27 AM EST Plan of Treatment Health Maintenance Due Date Last Done Comments Medicare Initial AWV G0438 DXA SCAN 1942 Depression Screening (12+) 1954 DTAP/TDAP/TD VACCINES (1 - Tdap) 1961 Pneumococcal 50+ years (1 of 2 - PCV) 1961 Shingles Vaccine (Zoster) (1 of 2) 1992 Respiratory Syncytial Virus (RSV) Adult or (1 - 1-dose 75+ series) 2017 Tobacco Cessation Counseling and Screening (12+) 05/26/2023 05/26/2022 COVID-19 VACCINE (2023-2 5 season) 2024 03/05/2022, 03/13/2021, 06/11/2020, Additional history exists Falls Risk Screening 2024 Influenza Vaccine (#1) 2025 01/29/2021 Medical Devices Implanted Type Area Field Instructor Device Identifier Shelf Expiration Date Model / Serial / Lot Cement Bone Gresham Hv 40/20 600-15-000 - [id number] Implanted:Qty : 2 on 05/26/2022 by Eliseo Cuevas MD at [facility] IMPLANTS Left: Knee DJ SURG:ENCORE MED:BRIANTANOOGA 05/30/2023 600-15-00 0 / / [id number] Ty Tib I-Beam Fix Biomet 75mm [id number] - [id number] Implanted:Qty : 1 on 05/26/2022 by Eliseo Cuevas MD at [facility] TOTAL JOINT CONSTRUCT Left: Knee BIOMET 03/26/2032 [id number] / / [id number] Patella Std 8x31mm [id number] - [id number] Implanted:Qty : 1 on 05/26/2022 by Eliseo Cuevas MD at [facility] TOTAL JOINT CONSTRUCT Left: Knee BIOMET 03/12/2027 [id number] / / [id number] Comp Fem Ps Vangrd 65mm [id number] - [id number] Implanted:Qty : 1 on 05/26/2022 by Eliseo Cuevas MD at [facility] TOTAL JOINT CONSTRUCT Left: Knee BIOMET 10/13/2029 [id number] / / [id number] Insrt Tib Bear Ps 10x71/75 [id number] - [id number] Implanted:Qty : 1 on 05/26/2022 by Eliseo Cuevas MD at [facility] TOTAL JOINT CONSTRUCT Left: Knee BIOMET 11/07/2025 [id number] / / [id number] Insurance MEDICARE PART A B Advance Directives For more information, please contact: [phone] * Full Code (Latest Code Status on File) Date Activated Date Inactivated Comments 05/26/2022 3:06 PM 05/29/2022 8:04 PM * Full Code Date Activated Date Inactivated Comments 05/26/2022 8:57 AM 05/26/2022 3:06 PM Care Teams Assistant Professor Of Geography Relationship Specialty Start Date End Date Ferny Gentile [address] [place] [phone] PCP - General 05/22/22
--- OUTSIDE RECORDS SUMMARY | 2024-11-14 14:50 | XMS_ITS | Encounter Summary ---
Author Organization [employer] ([place], [place], [place], [place]) Address [address] [place] [address] Care Team Providers Care Film Writer Name Role Phone SeferinoSakinat Primary Care Provider [phone] Encounter Details Date Type Department Care Team (Late st Contact Info) Description 12/02/2018 Transcribed Document [facility] [place] [facility] [place] [address] ProviderArt MD [address] [place] [id number] Social History Tobacco Use Types Packs/Day Years Used Date Smoking Tobacco: Never Assessed Comments Unknown Sex and Gender Information Value Date Recorded Sex Assigned at Female 10/29/2021 6:07 PM CDT Legal Sex Female 6:07 PM CDT Gender Identity Female 10/29/2021 6:07 PM CDT Sexual Orientation Not on file documented as of this encounter Miscellaneous Notes * Cerner Conversion Note - Art ProviderMD - 12/02/2018 1:30 PM CDT Orthopedic Nurse Navigator Entered On: 12/06/2018 6:47 EDT Performed On: 12/02/2018 13:30 EDT by Sybil Soler Rn Orthopedic Nurse Navigator Assessment Attended Joint Academy : Yes Joint AcademyType : In person Joint Academy Date : 12/02/2018 EDT Joint Chief Of Pediatric Urology Attended Academy : Yes Joint Chief Of Pediatric Urology Name : Litzy Naranjo [phone] Type of Surgery : Anterior Hip Replacement, Left Does Patient Have a Walker? : Yes Anticipated Discharge Plan : Home Health PT Patient Completed RAPT Score : 3 Joint Navigator Assessment Note : According to patient's RAPT Score, patient will need extended inpatient rehabilition after the procedure. Patient prefers to have Home Health when discharged. Sybil Soler Rn - 12/06/2018 6:41 EDT Teaching/Learning Assessment Individuals Taught : Patient, Involved caregiver(s) Readiness to Learn : Cooperative Baseline Knowledge of Topic : None Readiness to Learn : Demonstration, Explanation, Printed materials, Teach back method, Video/Educational TV Sybil Soler Rn - 12/06/2018 6:41 EDT Education Topics, Orthopedic Pre-Op Ortho Pre-Op Education Grid Ed-Assistive Devices : Verbalizes understanding Blood Donation : Verbalizes understanding Continuous Passive Motion : Verbalizes understanding DVT Prophylaxis : Verbalizes understanding Family Instructions : Verbalizes understanding Herbs/Supplement Instructions : Verbalizes understanding Hip Precautions : Verbalizes understanding Laboratory Studies : Verbalizes understanding Medication Instructions : Verbalizes understanding NPO : Verbalizes understanding Ed-Occupational Therapy : Verbalizes understanding Pain Management : Verbalizes understanding Physical Prep : Verbalizes understanding Physical Therapy : Verbalizes understanding Plan of Care : Verbalizes understanding Positioning : Verbalizes understanding Post-op Activity/Exercise Regimen : Verbalizes understanding Postoperative Home Needs : Verbalizes understanding Post-operative Monitoring : Verbalizes understanding Post-Op Orthopedic Equipment : Verbalizes understanding Procedure Information : Verbalizes understanding Respiratory Care : Verbalizes understanding Surgical Site : Verbalizes understanding Tubes/Drains/IV's : Verbalizes understanding Turn/Cough/Deep Breathe : Verbalizes understanding Weight Bearing : Verbalizes understanding Ed-Orthopedic Pre-Op, Other : Verbalizes understanding Sybil Soler Rn - 12/06/2018 6:41 EDT Education Topics, Orthopedic Devices Ortho Devices Education Grid Elevate Extremity : Verbalizes understanding Hygiene : Verbalizes understanding Ice Application : Verbalizes understanding Isometric Exercises : Verbalizes understanding Mobility : Verbalizes understanding Pain Management : Verbalizes understanding Positioning : Verbalizes understanding Purpose : Verbalizes understanding Reportable Symptoms : Verbalizes understanding Rest : Verbalizes understanding ROM Exercise : Verbalizes understanding Safety : Verbalizes understanding Self Care : Verbalizes understanding Skin Care : Verbalizes understanding Weight Bearing : Verbalizes understanding Sybil Soler Rn - 12/06/2018 6:41 EDT JR. CHARLES Hip Survey 1. Going up or down stairs : Moderate 2. Walking on an uneven surface : Severe 3. Rising from sitting : Moderate 4. Bending to floor/bean picker machine operator an object : Moderate 5. Lying in bed (turning over, maintaining hip position) : Moderate 6. Sitting : Moderate CHARLES JR Raw Score (ref) : 13 Sybil Soler Rn - 12/06/2018 6:41 EDT PROMIS Global Health Scale In general, would you say your health is: : Fair In general, would you say your quality of life is: : Fair In general, how would you rate your physical health? : Fair In general, how would you rate your mental health, including your mood and your ability to think? : Good In general, how would you rate your satisfaction with your social activities and relationships? : Fair In general, please rate how well you carry out your usual social activities and roles. (This includes activities at home, at work and in your community, and responsibilities as a parent, child, spouse, employee, friend, etc.) : Fair To what extent are you able to carry out your everyday physical activities such as walking, climbing stairs, carrying groceries, or moving a chair? : A little How often have you been bothered by emotional problems such as feeling anxious, depressed or irritable? : Rarely How would you rate your fatigue on average? : Severe How would you rate your pain on average? : 6 Global Physical Health Score (ref) : 9 Global Mental Health Score (ref) : 11 Sybil Soler Rn - 12/06/2018 6:41 EDT Electronically signed by Brina Zamarripa Conversion Chair Post Machine Operator Cerner at 08/18/2022 11:08 AM CDT documented in this encounter Plan of Treatment Not on file documented as of this encounter Visit Diagnoses Not on filedocumented in this encounter Care Teams Film Writer Relationship Specialty Start Date End Date Ferny Gentile [address] [place] [phone] PCP - General 05/22/22 documented as of this encounter
--- OUTSIDE RECORDS SUMMARY | 2024-11-14 14:50 | XMS_ITS | Encounter Summary ---
Author Organization [employer] ([place], [place], [place], [place]) Address [address] [place] [address] Care Team Providers Care Certified Wellness Program Manager Name Role Phone Ferny Gentile Primary Care Provider [phone] Encounter Details Date Type Department Care Team (Late st Contact Info) Description 12/14/2018 Transcribed Document [facility] [place] [address] ProviderArt MD [address] [place] [id number] Social History Tobacco Use Types Packs/Day [...] Conversion Note - Art ProviderMD - 12/14/2018 8:10 AM CDT [facility] Main OR IntraOp Summary Primary Physician: MATTHEW BANEGAS MD-TITO Finalized Date/Time: 12/14/18 11:15:55 Pt. Name: UZAIR SKAGGS /Sex: 1940 Female Med Rec #: [id number] Physician: MATTHEW BANEGAS MD-TITO Financial #: [id number] Pt. Type: I Room/Bed: [facility]/ Admit/Disch: 12/14/18 04:48:00 - [place] [facility] [place] Attendance Entry 1 Entry 2 Entry 3 Case Attendee MATTHEW BANEGAS LUNSFORD, JAMES, [place]IVER[place] CAPTAIN GARRETT JARAMILLO, RM MORALEZ-ORT Role Performed Surgeon/Proceduralist, [place] CAPTAIN/Nurse Driver Messenger Physician assistant designer First Time In 12/14/18 08:10:00 12/14/18 07:30:00 12/14/18 08:36:00 Time Out 12/14/18 09:02:00 12/14/18 09:31:00 12/14/18 09:31:00 Procedure Hip Total Anterior Hip Total Anterior Hip Total Anterior Approach Approach Approach Other Attendee Superficial Wound Closed By: Last Modified By: Tiffany Carrero RN Wellnitz, Sara, Tiffany Garcia RN 12/14/18 09:31:30 12/14/18 09:31:30 12/14/18 09:31:30 Entry 4 Entry 5 Entry 6 Case Attendee Tiffany Carrero, ELENA BRAR, ROB, RAVEN Role Performed Specialized Developer, First Scrub, Medical Asst, First Time In 12/14/18 07:30:00 12/14/18 07:30:00 12/14/18 07:30:00 Time Out 12/14/18 09:20:00 12/14/18 09:10:00 12/14/18 08:38:00 Procedure Hip Total Anterior Hip Total Anterior Hip Total Anterior Approach Approach Approach Other Attendee Superficial Wound Closed By: Last Modified By: Tiffany Carrero RN Wellnitz, Sara, Tiffany Garcia RN 12/14/18 09:31:30 12/14/18 09:31:50 12/14/18 09:31:30 Entry 7 Entry 8 Entry 9 Case Attendee OTHER, ATTENDEE Ryanne Buchanan Hill, Philip A Rn Wood Tile Installation Helper Role Performed Vendor Loop Puller Scrub, First Time In 12/14/18 08:10:00 12/14/18 08:00:00 12/14/18 09:03:00 Time Out 12/14/18 09:02:00 12/14/18 09:11:00 12/14/18 09:31:00 Procedure Hip Total Anterior Hip Total Anterior Hip Total Anterior Approach Approach Approach Other Attendee Cy LOONEY Superficial Wound Closed By: Last Modified By: Tiffany Carrero RN Wellnitz, Sara, Tiffany Garcia RN 12/14/18 09:31:30 12/14/18 09:31:30 12/14/18 09:31:30 Entry 10 Entry 11 Case Attendee Kennedy Wei ST LEININGER, SUSAN, RN Role Performed Scrub, Second Specialized Developer, Second Time In 12/14/18 08:15:00 12/14/18 09:20:00 Time Out 12/14/18 09:05:00 12/14/18 09:31:00 Procedure Hip Total Anterior Hip Total Anterior Approach Approach Other Attendee Superficial Wound Closed By: Last Modified By: Tiffany Carrero RN Wellnitz, Sara, RN 12/14/18 09:31:30 12/14/18 09:31:30 [facility] IntraOp Case Attendance Audit 12/14/18 09:31:50 Oil Rig Roughneck: LUIS Modifier: LUIS 3 <+> Role Performed 3 <*> Procedure Hip Total Anterior Approach 12/14/18 09:31:30 Oil Rig Roughneck: LUIS Modifier: LUIS 1 <*> Procedure Hip Total Anterior Approach 2 <+> Time Out 2 <*> Procedure Hip Total Anterior Approach 3 <+> Time Out 3 <*> Procedure Hip Total Anterior Approach 4 <*> Procedure Hip Total Anterior Approach 5 <*> Procedure Hip Total Anterior Approach 6 <*> Procedure Hip Total Anterior Approach 7 <*> Procedure Hip Total Anterior Approach 8 <*> Procedure Hip Total Anterior Approach 9 <+> Time Out 9 <*> Procedure Hip Total Anterior Approach 10 <*> Procedure Hip Total Anterior Approach 11 <+> Time Out 11 <*> Procedure Hip Total Anterior Approach 12/14/18 09:21:19 Oil Rig Roughneck: LUIS Modifier: LUIS 4 <+> Time Out 4 <*> Procedure Hip Total Anterior Approach <+> 11 Case Attendee <+> 11 Role Performed <+> 11 Time In <+> 11 Procedure 12/14/18 09:19:23 Oil Rig Roughneck: LUIS Modifier: LUIS 8 <+> Time Out 8 <*> Procedure Hip Total Anterior Approach 12/14/18 09:10:59 Oil Rig Roughneck: LUIS Modifier: WELLNISA 5 <+> Time Out 5 <*> Procedure Hip Total Anterior Approach <+> 10 Case Attendee <+> 10 Role Performed <+> 10 Time In <+> 10 Time Out <+> 10 Procedure 12/14/18 09:04:01 Oil Rig Roughneck: LUIS Modifier: WELLNISA 1 <+> Time Out 1 <*> Procedure Hip Total Anterior Approach 7 <+> Time Out 7 <*> Procedure Hip Total Anterior Approach <+> 9 Case Attendee <+> 9 Role Performed <+> 9 Time In <+> 9 Procedure 12/14/18 08:38:47 Oil Rig Roughneck: REJIA Modifier: WELLNISA 6 <+> Time Out 6 <*> Procedure Hip Total Anterior Approach 12/14/18 08:37:27 Oil Rig Roughneck: LUIS Modifier: WELLMARKOA 3 <*> Time In 12/14/18 07:30:00 3 <*> Procedure Hip Total Anterior Approach 12/14/18 08:11:28 Oil Rig Roughneck: REJIA Modifier: WELLMARKOA 7 <*> Time In 12/14/18 07:30:00 7 <*> Procedure Hip Total Anterior Approach <+> 8 Case Attendee <+> 8 Role Performed <+> 8 Time In <+> 8 Procedure 12/14/18 08:10:47 Oil Rig Roughneck: LUIS Modifier: REJIA 1 <*> Time In 12/14/18 07:30:00 1 <*> Procedure Hip Total Anterior Approach 12/14/18 08:10:28 Oil Rig Roughneck: REJIA Modifier: WELLNISA 1 <+> Time In 1 <*> Procedure Hip Total Anterior Approach 2 <+> Time In 2 <*> Procedure Hip Total Anterior Approach 3 <+> Time In 3 <*> Procedure Hip Total Anterior Approach 4 <+> Time In 4 <*> Procedure Hip Total Anterior Approach 5 <+> Time In 5 <*> Procedure Hip Total Anterior Approach 6 <+> Time In 6 <*> Procedure Hip Total Anterior Approach 7 <+> Time In 7 <*> Procedure Hip Total Anterior Approach [facility] IntraOp Case Times Entry 1 Patient In Room Time 12/14/18 07:30:00 Out Room Time 12/14/18 09:31:00 Anesthesia Start Time 12/14/18 07:30:00 Stop Time 12/14/18 09:31:00 Anesthesia Ready 12/14/18 07:30:00 Surgery / Procedure Times Start Time 12/14/18 08:10:00 Stop Time 12/14/18 09:20:00 Last Modified By: Tiffany Carrero RN 12/14/18 09:31:27 [facility] IntraOp Case Times Audit 12/14/18 09:31:27 Oil Rig Roughneck: LUIS Modifier: REJIA <+> 1 Out Room Time <+> 1 Stop Time 12/14/18 09:19:35 Oil Rig Roughneck: LUIS Modifier: WELLMARKOA <+> 1 Stop Time 12/14/18 08:10:57 Oil Rig Roughneck: LUIS Modifier: WELLMARKOA <+> 1 Start Time [facility] IntraOp Cautery Entry 1 ESU Identification Cautery Type Monopolar ESU ID Number [id number] ID Type Hospital Number Cautery Settings Cut Setting 70 Coag Setting 70 ESU Grounding Pad Ground Pad Type Adult Grounding Pad Site Right Buttock Grounding Pad Tiffany Carrero RN Applied By Grounding Pad Site Intact Skin Condition Before Cautery Grounding Pad Site Unchanged Skin Condition After Cautery Last Modified By: Tiffany Carrero RN 12/14/18 08:37:55 [facility] IntraOp Cautery Audit 12/14/18 08:37:55 Oil Rig Roughneck: LUIS Modifier: LUIS 1 <*> Cautery Type Monopolar ESU 1 <*> Coag Setting 70 1 <*> Cut Setting 70 1 <*> Ground Pad Type Adult 1 <*> Grounding Pad Site Right Buttock 1 <*> ID Number [id number] <*> ID Type Hospital Number 1 <*> Grounding Pad Applied By Tiffany Carrero RN 1 <*> Grounding Pad Site Skin Condition Intact Before Cautery 1 <*> Grounding Pad Site Skin Condition Unchanged After Cautery Entry 2 was deleted. Higher numbered entries shifted one position to fill the gap. <-> 2 Cautery Type Monopolar ESU <-> 2 Coag Setting 70 <-> 2 Cut Setting 70 <-> 2 Ground Pad Type Adult <-> 2 ID Type Hospital Number <-> 2 Grounding Pad Applied By Tiffany Carrero RN <-> 2 Grounding Pad Site Skin Condition Intact Before Cautery <-> 2 Grounding Pad Site Skin Condition Unchanged After Cautery 12/14/18 08:10:52 Oil Rig Roughneck: LUIS Modifier: REJIA <+> 2 Cautery Type <+> 2 Coag Setting <+> 2 Cut Setting <+> 2 Ground Pad Type <+> 2 ID Type <+> 2 Grounding Pad Applied By <+> 2 Grounding Pad Site Skin Condition Before Cautery <+> 2 Grounding Pad Site Skin Condition After Cautery [facility] IntraOp Communication Entry 1 Entry 2 Communication To Family/Significant other Family/Significant other Comment PROCEDURESTART CLOSING Communication By Tiffany Carrero RN Wellnitz, Sara, MALISSA Date and Time 12/14/18 08:13:00 Last Modified By: Tiffany Carrero RN Wellnitz, Sara, RN 12/14/18 08:13:51 12/14/18 08:07:35 [facility] IntraOp Communication Audit 12/14/18 08:13:51 Oil Rig Roughneck: LUIS Modifier: LUIS <+> 1 Date and Time [facility] IntraOp Counts Verification Entry 1 Entry 2 Procedure Hip Total Anterior Hip Total Anterior Approach Approach Count Info Count Type Sponge, Sharps Sponge, Sharps Counts Verification Baseline/pre-procedure Before wound closure Sequence Count Results Not Applicable Correct, surgeon notified If Incorrect or Waived complete the Counts Action Taken form: If Intentional Retention, complete the Intential Retention form: Counts Performed By Count Performed By ELENA VICTOR BENJAMIN P (Scrub) Count Performed By Tiffany Carrero RN Wellnitz, Sara, RN (RN) Last Modified By: Tiffany Carrero RN Wellnitz, Sara, RN 12/14/18 08:07:55 12/14/18 09:10:01 [facility] IntraOp Counts Verification Audit 12/14/18 09:10:01 Oil Rig Roughneck: LUIS Modifier: LUIS 2 <*> Procedure Hip Total Anterior Approach 2 <+> Count Results 2 <+> Count Performed By (Scrub) 2 <+> Count Performed By (RN) [facility] IntraOp Counts Final Entry 1 Procedure Hip Total Anterior Approach Final Count Info Count Type Sponge, Sharps Counts Verification Skin Closure/end of Sequence procedure Count Results Correct, surgeon notified Counts Performed By Count Performed By LEVITSKY, ELENA P (Scrub) Count Performed By Tiffany Carrero RN (RN) Last Modified By: Tiffany Carrero RN 12/14/18 09:11:14 [facility] IntraOp Counts Final Audit 12/14/18 09:11:14 Oil Rig Roughneck: LUIS Modifier: MEREMARKOA 1 <*> Procedure Hip Total Anterior Approach 1 <+> Count Results 1 <+> Count Performed By (Scrub) 1 <+> Count Performed By (RN) [facility] IntraOp Cultures and Spec Summary Entry 1 Cultrures and Specimens Specimen Ordered: Yes Test(s) Gross Analysis/Path-Lab Requested/Final Disposition Last Modified By: Tiffany Carrero RN 12/14/18 08:08:13 [facility] IntraOp Departure from OR Entry 1 Integumentary Assessment Integumentary WDL with exceptions Assessment WDL Transfer/Handoff Transfer to PACU Phase I Handoff Method Bedside/Face to face Post-op Transport Bed (including Via specialty) Patient Transport URMILA HASSAN CRNA, Accompanied by Tiffany Carrero RN Last Modified By: Tiffany Carrero RN 12/14/18 08:31:13 [facility] IntraOp Drains and Tubes Entry 1 Device Type Hemovac Size MED. Drain/Tube Activity Inserted Drain/Tube Suction Not applicable Device Location LEFT HIP Method of Drainage Compression Last Modified By: Tiffany Carrero RN 12/14/18 08:10:39 [facility] IntraOp Drains and Tubes Audit 12/14/18 08:10:39 Oil Rig Roughneck: LUIS Modifier: [email or web address] 1 <*> Device Type Hemovac 1 <*> Drain/Tube Activity Inserted 1 <*> Drain/Tube Suction Not applicable 1 <*> Device Location LEFT HIP 1 <*> Method of Drainage Compression 1 <*> Size MED. Entry 2 was deleted. Higher numbered entries shifted one position to fill the gap. <-> 2 Device Location LEFT HIP [facility] IntraOp Dressing and Packing Entry 1 Type Dressing Location LEFT HIP Wound Dressing Item Occlusive dressing, Skin Closure Glue Applied By ROB STATON CSA Other Comments MEPILEX; DERMABOND Last Modified By: Tiffany Carrero RN 12/14/18 08:11:50 [facility] IntraOp Fire Risk Assessment Entry 1 Fire Info Surgical Site or 0- No Incision Above the Xyphoid Open O2 Source 0- No (Mask or Cannula) Available Ignition 1- Yes (ESU, Laser, Light Source) Fire Risk 1 Assessment Score Fire Score Fire Risk Yes Assessment Complete Fire Risk Tiffany Carrero RN Assessment Verified By Fire Risk 12/14/18 08:12:00 Assessment Verified Date/Time Fire Risk High Risk Protocol Yes Implemented Standard Fire Yes Safety Precautions Followed Last Modified By: Tiffany Carrero RN 12/14/18 08:12:06 [facility] IntraOp General Case Yeast Pumper 1 Case Information [place] [facility] [place] Room Verified Yes Wound Class I - Clean Specialty SN Orthopedic Anesthesia Type General ASA Class 3 Diagnosis Preop Diagnosis OA LEFT HIP Postop Diagnosis SEE POST OP NOTE Last Modified By: Tiffany Carrero RN 12/14/18 08:12:39 [facility] IntraOp Implant Log Entry 1 Entry 2 Entry 3 Type Implant (Synthetic) Implant (Synthetic) Implant (Synthetic) Implant Log Implant Type Hardware Hardware Hardware Tissue Implant Type Implant SHELL ACETAB 52MM 3 LINER LGCL CUP 54MM SZ STEM HIP CLLR ORGN CX Identification [id number] Description Implant Quantity 1 1 1 Implant Site LEFT HIP LEFT HIP LEFT HIP Implant Identification Model Number Implant Identification Serial Number Implant [id number] Identification Lot Number Implant Paxeon Reconstruction Paxeon Reconstruction Paxeon Reconstruction Identification Payroll Technician Name: Implant [id number] Identification Catalog Number Implant Size Implant Has an Yes Yes Yes Expiration Date Implant Expiration 08/02/23 10/02/23 09/01/23 Date Wasted Radioactive Material Time Implanted Tissue Implant Continue for Tissue Implant Documentation Tissue Identification Number Graft Prep Per Payroll Technician Instructions: Tissue Preparation Method: Reconstitution Solution: Reconstitution Solution Lot Number Reconstitution Solution Expiration Date: Thawing Solution Thawing Solution Lot Number Thawing Solution Expiration Date Preparation Materials, Other Preparation Materials, Other Lot Number Preparation Materials, Other Expiration Date Tissue Prepared/Processed By Payroll Technician Paperwork Completed Implant Type Comment Last Modified By: Tiffany Carrero, Tiffany Garcia RN Wellnitz, Sara, RN 12/14/18 08:31:02 12/14/18 08:36:29 12/14/18 09:06:08 Entry 4 Type Implant (Synthetic) Implant Log Implant Type Hardware Tissue Implant Type Implant HEAD FEM CERC SZ 36MM Identification [id number] Description Implant Quantity 1 Implant Site LEFT HIP Implant Identification Model Number Implant Identification Serial Number Implant [id number] Identification Lot Number Implant Paxeon Reconstruction Identification Payroll Technician Name: Implant [id number] Identification Catalog Number Implant Size Implant Has an Yes Expiration Date Implant Expiration 06/03/23 Date Wasted Radioactive Material Time Implanted Tissue Implant Continue for Tissue Implant Documentation Tissue Identification Number Graft Prep Per Payroll Technician Instructions: Tissue Preparation Method: Reconstitution Solution: Reconstitution Solution Lot Number Reconstitution Solution Expiration Date: Thawing Solution Thawing Solution Lot Number Thawing Solution Expiration Date Preparation Materials, Other Preparation Materials, Other Lot Number Preparation Materials, Other Expiration Date Tissue Prepared/Processed By Payroll Technician Paperwork Completed Implant Type Comment Last Modified By: Tiffany Carrero RN 12/14/18 09:06:08 [facility] IntraOp Implant Log Audit 12/14/18 09:06:08 Oil Rig Roughneck: LUIS Modifier: WELLNISA <+> 3 Implant Identification Description <+> 3 Implant Identification Lot Number <+> 3 Implant Identification Payroll Technician Name: <+> 3 Implant Expiration Date <+> 3 Implant Identification Catalog Number <+> 4 Implant Identification Description <+> 4 Implant Identification Lot Number <+> 4 Implant Identification Payroll Technician Name: <+> 4 Implant Expiration Date <+> 4 Implant Identification Catalog Number 12/14/18 08:36:29 Oil Rig Roughneck: REJIA Modifier: WELLNISA <+> 2 Implant Identification Description <+> 2 Implant Identification Lot Number <+> 2 Implant Identification Payroll Technician Name: <+> 2 Implant Expiration Date <+> 2 Implant Identification Catalog Number 12/14/18 08:31:02 Oil Rig Roughneck: REJIA Modifier: WELLNISA <+> 1 Implant Identification Description <+> 1 Implant Identification Lot Number <+> 1 Implant Identification Payroll Technician Name: <+> 1 Implant Expiration Date <+> 1 Implant Identification Catalog Number 12/14/18 08:20:19 Oil Rig Roughneck: REJIA Modifier: WELLNISA <+> 4 Implant Has an Expiration Date [facility] IntraOp Intraoperative Assessment Entry 1 Handoff Report SHERLYN THOMPSON RN Received from Handoff Reported to Tiffany Carrero RN Handoff Method Bedside/Face to face Valid History / Yes Physical in Chart Preoperative Yes Checklist Reviewed/Evaluated Allergies Reviewed Yes Patient is Latex No Sensitive Isolation Not applicable Precautions Noted Level of WDL Consciousness (WDL = Alert, Oriented to Person, Place, and Time) Skin Assessment Yes Verified Present Upon IVs Arrival to OR Last Modified By: Tiffany Carrero RN 12/14/18 08:13:11 [facility] IntraOp Intraoperative Equipment Entry 1 Type Equipment Equipment Equipment Ephraim Suction System ID Number [id number] Setting HIGH Intraop Monitoring Antiembolic Devices Antiembolic Devices Sequential compression device, knee high Antiembolic Device Right Location Antiembolic Device 5853 ID Number Scopes Photo/Video Documentation Photo No Video No Last Modified By: Tiffany Carrero RN 12/14/18 08:14:27 [facility] IntraOp Medication Admin Entry 1 Entry 2 Entry 3 Medication/Irrigant TRANEXAMIC ACID vancomycin 1Gm vial - ANESTHETIC 1000MG/10 ML [id number] COCKTAIL-BANEGAS [id number] Combo Med List Time Administered Route of TOPICAL; MIXED W/ 25ML TOPICAL INJECTION Administration NACL Dose Dose 1000 1 Unit of Measure mg gram Volume 10ML Administered By MATTHEW BANEGAS CHRISTENSEN, CHRISTIAN, CHRISTENSEN, CHRISTIAN, MD-ORT MD-ORT MD-ORT Procedure Irrigation Irrigant Volume In Irrigant Volume Out Last Modified By: Tiffany Carrero RN Wellnitz, Sara, RN Wellnitz, Sara, RN 12/14/18 08:14:40 12/14/18 08:14:40 12/14/18 08:14:40 [facility] IntraOp Patient Positioning Entry 1 Procedure Hip Total Anterior Approach Body Position Supine Left Arm Position Secured across chest Right Arm Position Secured on padded arm board Left Leg Position Traction Right Leg Position Traction Feet Uncrossed Yes Pressure Points Yes Checked Positioning Devices Table, Fracture, Pillows, Arm Board Device Position SECURE OPERATIVE SIDE ARM WITH [place] JESENIA ACROSS CHEST-PAD WITH EGG CRATE OR PILLOW; NON-OP ARM ON ARM BOARD; WRAP BOTH FEET WITH COBAN; USE FOAM FOOT PADDING; WRAP OP SIDE FOOT WITH COBAN AFTER PUTTING IN BOOT; IF PT. IS 5' OR UNDER USE EXTENSIONS FOR BOOT Positioned By Tiffany Carrero, MALISSA, ROB STATON, RAVEN, [place], KAMERON KEARNS Position Verified Positioning Yes Verified by Anesthesia Positioning Yes Verified by Surgeon Last Modified By: Tiffany Carrero RN 12/14/18 08:14:54 [facility] IntraOp Sign In Entry 1 Patient, Site, Yes Procedure Identified Surgical Consent Yes Confirmed Relevant Surgical Yes Documents Available Surgical Site Yes Marked by person performing procedure Anesthesia Machine Yes Check Completed Medication Checks Yes Completed Allergies Yes Airway Difficult Yes Airway/Aspiration Intervention Equipment Available Blood Loss Risk Yes Blood Loss Yes Intervention Equipment Prepared and Ready Blood Identifiers Yes Verified Per Policy Hypothermia Risk Yes Warming Measures Yes Taken Last Modified By: Tiffany Carrero RN 12/14/18 08:15:02 [facility] Intra Op Sign Out Entry 1 RN Confirmation Surgical Yes Procedure(s) Identified Instrument, Sponge Yes and Sharps Counts Correct/Documented Equipment Problems Yes Documented Specimen Labeled Yes Correctly Urinary Catheter N/A Documented in IView Frias Patient Yes Recovery Concerns Reviewed with Anesthesia Provider, Surgeon and RN [place] Patient Yes Management Concerns Reviewed with Anesthesia Provider, Surgeon and RN Safety Checklist Yes Elements Complete? RN Sign Out Tiffany Carrero RN Signature RN Sign Out 12/14/18 09:11:00 Signature Date/Time Plan of Care Outcome - Fire Risk OUTCOME STATEMENT: Goal met Patient is free from injury related to surgical fire Plan of Care Outcome - Pt Positioning OUTCOME STATEMENT: Goal met Absence of signs and symptoms of positioning injury. Plan of Care Outcome - Skin Prep OUTCOME STATEMENT: Goal met Intraoperative care is consistent with measures to prevent infection Plan of Care Outcome - Xray/Images OUTCOME STATEMENT: Goal met Absence of observable signs or symptoms of radiation injury Plan of Care Outcome - Counts OUTCOME STATEMENT: Goal met Absence of signs and symptoms of injury related to extraneous objects Last Modified By: Tiffany Carrero RN 12/14/18 09:11:28 [facility] IntraOp Skin Prep Entry 1 Procedure Hip Total Anterior Approach Prescribed Yes Pre-Surgical Prep Completed Prep Area LEFT HIP; WIPE WITH ALCOHOL FIRST, THEN DURAPREP X 2 Intraop Prep Prep Agents DuraPrep, Alcohol Prep by Tiffany Carrero, MALISSA Hair Removal Methods No hair removal performed Last Modified By: Tiffany Carrero RN 12/14/18 08:15:23 [facility] IntraOp Surgical Procedures Entry 1 Procedure Hip Total Anterior Approach Additional LEFT TOTAL HIP Procedure ARTHROPLASTY DIRECT Description ANTERIOR Primary Procedure Yes Primary Surgeon MATTHEW BANEGAS MD-ORT Start 12/14/18 08:10:00 Stop 12/14/18 09:20:00 Anesthesia Type General Specialty SN Orthopedic Wound Class I - Clean Last Modified By: Tiffany Carrero RN 12/14/18 09:19:43 [facility] IntraOp Temp Regulation Devices Entry 1 Temp Regulation Temperature Forced Air Warming Regulation Device device Temperature 4767 Regulation Device Serial/Unit Number Temperature Upper body Regulation Site Temperature Device 43 Setting Temperature URMILA HASSAN CRNA Regulation Device Applied by Last Modified By: Tiffany Carrero RN 12/14/18 08:15:45 [facility] IntraOp Time Out Entry 1 Procedure to be Hip Total Anterior Performed Approach Time Out Time Out Pause Time 12/14/18 08:10:00 All activity Yes suspended (unless life threatening emergency) Team Verbally Correct patient Confirms Information identity, Correct side and site are marked, Consent form is present and accurate, Agreement on the procedure to be done, Correct patient position, Relevant images/results properly labeled/appropriately displayed, Confirm antibiotics have been administered, Confirm the skin prep has dried, Confirm prosthesis/implant/devic e is present, Performed in location of procedure after prepped/draped, Performed before each procedure if multiple procedures, Reconcile problems if responses among team members differ Antibiotic Yes Prophylaxis Administered Or In Progress Within the Last 60 Minutes Beta Bryson Yes Administered Venous Yes Thromboembolism Prophylaxis Required Anticipated Critical Events Surgeon Critical or unexpected steps, Anticipated blood loss, Special equipment need, Special instrumentation need Anesthesia Provider None expected Nursing Assures Sterility of instruments, Equipment concerns or issues, Implant Availability Essential Imaging Yes Labeled and Displayed Last Modified By: Tiffany Carrero RN 12/14/18 08:17:05 [facility] IntraOp Time Out Audit 12/14/18 08:17:05 Oil Rig Roughneck: LUIS Modifier: LUIS 1 <*> Time Out Pause Time 12/14/18 08:08:00 1 <*> Procedure to be Performed Hip Total Anterior Approach [facility] IntraOp X-Ray and Images Entry 1 X-Ray/Imaging Type Fluoroscopy Fluoroscopy Type C-Arm Site LEFT HIP Certified Coatings Inspector Name Ryanne Buchanan, Wood Tile Installation Helper Protective Devices Yes Used Last Modified By: Tiffany Carrero RN 12/14/18 08:17:40 Case Comments <None> Finalized By: Tiffany Carrero, RN Document Signatures Signed By: Tiffany Carrero RN 12/14/18 09:31 Tiffany Carrero RN 12/14/18 11:15 Unfinalized History Date/Time Username Reason for Unfinalizing Freetext Reason for Unfinalizing 12/14/18 11:15 LUIS Correct Documentation Electronically signed by Brina Zamarripa Conversion [employer] Internship Cerner at 08/18/2022 11:24 AM CDT documented in this encounter Plan of Treatment Not on file documented as of this encounter Visit Diagnoses Not on filedocumented in this encounter Care Teams Certified Wellness Program Manager Relationship Specialty Start Date End Date Ferny Gentile [address] [place] [phone] PCP - General 05/22/22 documented as of this encounter
--- OUTSIDE RECORDS SUMMARY | 2024-11-14 14:50 | XMS_ITS | Encounter Summary ---
Author Organization [employer] ([place], [place], [place], [place]) Address [address] [place] [address] Care Team Providers Care Supervisor Screen Printing Name Role Phone Ferny Gentile Primary Care Provider [phone] Encounter Details Date Type Department Care Team (Late st Contact Info) Description 12/15/2018 Transcribed Document [facility] [place] [address] ProviderArt MD [address] [place] [id number] Social History Tobacco Use Types Packs/Day [...] Conversion Note - Art ProviderMD - 12/15/2018 11:22 AM CDT [place] [id number] UZAIR MADERA :1940 Visit Time:12/14/2018 Your Visit Summary Your Care Team Admitting Physician - MARIELLA DOBBS MD CHRISTENSEN, CHRISTIAN, MD-TITO Attending Physician - MATTHEW BANEGAS MD-ORT Primary Care Physician - FERNY GENTILE (REF)MD-INT Referring Physician - MATTHEW BANEGAS MD-ORT Your Diagnosis Hip pain, chronic Discharge Vitals Temperature 37.1 ??C Heart Rate 68 Respiratory Rate 18 Blood Pressure 98/50 What to do next Instructions From Your Care Team PATIENT HAS A WALKER, PT WILL HAVE HOME THERAPY WITH [facility] [phone], PATIENT CHECKS HER OWN INR WITH HOME MACHINE, 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 results to pcp for further management Activity: as per ortho, Discharge Activity: Other (use Special Instructions) Diet: Discharge Diet: Resume usual diet as tolerated Follow-Up Appointments Follow Up with CHEIKH CARLOS PA-C When 01/25/2019 08:45 AM EDT Comments Appointment has been made Where: Medications What How Much When Instructions Next Dose acetaminophen-hydrocodone (acetaminophen-HYDROcodone 325 mg-7.5 mg oral tablet) 1 Tablet(s) Oral Every 3 Hours as needed for Pain (Moderate 4-6) docusate (Colace 100 mg oral capsule) 1 Capsule(s) Oral Two Times A Day Pickup at [facility] enoxaparin (Lovenox 40 mg/ 0.4 mL injectable solution) 40 Milligram(s) SubCutaneous Interval Every 24 Hours Printed Prescription gabapentin (gabapentin 300 mg oral capsule) 1 Capsule(s) Oral At Bedtime Duration: 30 Day(s) HYDROmorphone (Dilaudid 2 mg oral tablet) 1 Tablet(s) Oral Every 6 Hours as needed for Breakthrough Pain Duration: 3 Day(s) multivitamin Oral Every Day Non Formulary (Non Formulary med) traMADol (traMADol 50 mg oral tablet) 1 Tablet(s) Oral Every 6 Hours While Awake mirabegron (Myrbetriq 50 mg oral tablet, extended release) 1 Tablet(s) Oral Every Day warfarin (Coumadin 7.5 mg oral tablet) 1 Tablet(s) Oral Every Day PT/ INR On thursday results to pcp for further dose adjustments aif needed Pickup at [facility] bifidobacterium infantis (Align) 4 Milligram(s) Oral Every Day cetirizine (cetirizine 10 mg oral tablet) 1 Tablet(s) Oral Every Day cholecalciferol (Vitamin D3) 2,000 International Units Oral Every Day chondroitin-glucosamine (Osteo Bi-Flex) 2 Tablet(s) Oral Every Day citalopram (citalopram 10 mg oral tablet) 1 Tablet(s) Oral Every Day ezetimibe 10 Milligram(s) Oral At Bedtime flecainide (flecainide 100 mg oral tablet) 1 Tablet(s) Oral Every 12 hours magnesium oxide (magnesium oxide 400 mg (240 mg elemental magnesium) oral tablet) 1 Tablet(s) Oral Every Day metoprolol (Metoprolol Succinate ER 25 mg oral tablet, extended release) 0.5 Tablet(s) Oral Every Day omeprazole 20 Milligram(s) Oral At Bedtime psyllium (Konsyl) Oral Every Day Pharmacy Information [facility]: [place] [address] [phone] Take your medications faithfully. Do NOT skip medication. Do NOT stop taking medications without the direction of a physician. Carry a list of your medications with you at all times, and take this medication list with you to your first follow up visit. Report any side effects. Avoid herbal remedies unless discussed with your physician. As part of your treatment plan, your physician may have prescribed a limited course of a controlled substance. This medication may be given to help people with moderate or severe pain or for other medical conditions, but there are risks involved with treatment. Common side effects may include nausea, constipation, drowsiness, sweating, itching, dry mouth, and rash. More serious side effects may include cognitive and motor impairment, like problems with thinking, concentrating, alertness, and movement (e.g. slowed reflexes), and driving and operating heavy machinery can be dangerous. It is important for you to talk to your physician if you have these side effects or questions. These controlled substances can produce physical dependence and be habit-forming if taken for an extended period of time, which means that the body has gotten used to them and may experience withdrawal symptoms if they are abruptly stopped. Withdrawal symptoms can include runny nose, sweating, goose bumps, diarrhea, abdominal cramping, rapid heartbeat, difficulty sleeping, and nervousness. Please dispose of unused and medications per your retail pharmacy guidance. Allergies Pravachol (Weakness) acetaminophen-oxyCODONE (headache, headache) sulfa drugs (Rash) Immunizations This Visit No Immunizations Found Education Materials What to expect after the Procedure: After the procedure, it is common to have: ??? Pain and swelling. ??? A small amount of blood or clear fluid coming from your incision for up to 7 days ??? It is normal to have a moderate amount of bleeding from the site of the drain that was pulled on the morning after surgery. You can hold pressure on the area for 3-5 minutes and cover with a bandage as needed. Diet: ??? Resume usual diet ??? No alcoholic beverages while taking pain medication ??? Drink 8-10 glasses of water a day to prevent constipation from pain medication ??? Increase fiber to help prevent constipation. Straining can cause increased pressure and pain in your incision area ??? Increase protein to promote healing Driving: ??? Do not drive until your health care provider approves. Ask your health care provider when it is safe to drive if you have an immobilizer on your knee. ??? Do not drive or operate heavy machinery while taking prescription pain medicine. ??? Do not drive for 24 hours if you received a sedative. Activity: ??? Do not lift anything that is heavier than 10 lb (4.5 kg) until your health care provider approves. ??? No strenuous activity ??? Avoid high-impact activities, including running, jumping rope, and jumping jacks. ??? Avoid sitting for a long time without moving. Get up and move around at least every few hours. ??? Keep legs elevated while seated and place surgery leg on 2-3 pillows, this will decrease swelling ??? Continue using walker until cleared by physical therapy Bathing: ??? Do not take baths, swim, or use a hot tub for one month after surgery. ??? May shower on the third day after surgery by covering incision with Glad Brand Press and Seal saran wrap. After showering, dry off completely BEFORE removing saran wrap. ??? Use Press and Seal saran wrap to shower for one month after surgery ??? You must be seated to shower until you are no longer using the walker Other: ??? Use ice therapy for 20-30 minutes at a time and leave off for 20-30 minutes at a time. Always keep a towel or cloth between the ice pack and your skin ??? Continue to use Incentive Spirometer 10 times an hour while awake for one month to help prevent pneumonia ??? Leave Mepilex AG dressing in place for 7 days then remove and leave open to air. ??? Wear compression stockings for 6 weeks and remove once a day to inspect legs and shower. Contact a health care provider if: ??? You have more redness, swelling, or pain around your incision. ??? You have more fluid or blood coming from your incision. ??? Your incision or drain site feels warm to the touch. ??? You have pus or a bad smell coming from your incision. ??? You have a fever. ??? Your incision breaks open after your health care provider removes your sutures, skin glue, or adhesive tape. ??? Your prosthesis feels loose. ??? You have knee pain that does not go away. DVT: Blood Clot Blood clots are a common risk after an orthopedic surgery Symptoms: ??? Swelling of your leg or arm, especially if one side is much worse. ??? Warmth and redness of your leg or arm, especially if one side is much worse. ??? Pain in your arm or leg. If the clot is in your leg, symptoms may be more noticeable or worse when you stand or walk. ??? A feeling of pins and needles, if the clot is in the arm. The symptoms of a DVT that has traveled to the lungs (pulmonary embolism, PE) usually start suddenly and include: ??? Shortness of breath while active or at rest. ??? Coughing or coughing up blood or blood-tinged mucus. ??? Chest pain that is often worse with deep breaths. ??? Rapid or irregular heartbeat. ??? Feeling light-headed or dizzy. ??? Fainting. ??? Feeling anxious. ??? Sweating. There may also be pain and swelling in a leg if that is where the blood clot started. How is this prevented? Exercise regularly. For at least 30 minutes every day, engage in: -Activity that involves moving your arms and legs. -Activity that encourages good blood flow through your body by increasing your heart rate. ??? Exercise your arms and legs every hour during long-distance travel (over 4 hours). ??? Drink plenty of water and avoid drinking alcohol while traveling. ??? Avoid sitting or lying in bed for long periods of time without moving your legs. ??? Maintain a weight that is appropriate for your height. Ask your health care provider what weight is healthy for you. ??? If you are a woman who is over 35 years of age, avoid unnecessary use of medicines that contain estrogen. These include control pills. ??? Do not smoke, especially if you take estrogen medicines. If you need help quitting, ask your health care provider. ??? Wear compression stockings (if told by your health care provider) to help prevent blood clots from forming. High Fiber/High Protein Diet High fiber foods: To prevent constipation Grains Whole-grain breads. Multigrain cereal. Oats and oatmeal. Brown rice. Barley. Bulgur wheat. Millet. Bran muffins. Popcorn. [place] wafer crackers. Vegetables Sweet potatoes. Spinach. Kale. Artichokes. Cabbage. Broccoli. Green peas. Carrots. Squash. Fruits Berries. Pears. Apples. Oranges. Avocados. Prunes and raisins. Dried figs. Meats and Other Protein Sources [place], kidney, shrestha, and soy beans. Split peas. Lentils. Nuts and seeds. Dairy Fiber-fortified yogurt. Beverages Fiber-fortified soy milk. Fiber-fortified orange juice. Other Fiber bars. High-protein foods: To promote healing High-protein foods contain 4 grams (4 g) or more of protein per serving. They include: ??? Beef, ground sirloin (cooked) ??? 3 oz have 24 g of protein. ??? Cheese (hard) ??? 1 oz has 7 g of protein. ??? Chicken breast, boneless and skinless (cooked) ??? 3 oz have 13.4 g of protein. ??? Cottage cheese ??? 1/2 cup has 13.4 g of protein. ??? Egg ??? 1 egg has 6 g of protein. ??? Fish, filet (cooked) ??? 1 oz has 6???7 g of protein. ??? Garbanzo beans (canned or cooked) ??? 1/2 cup has 6???7 g of protein. ??? Kidney beans (canned or cooked) ??? 1/2 cup has 6???7 g of protein. ??? Brownlee (cooked) ??? 3 oz has 24 g of protein. ??? Milk ??? 1 cup (8 oz) has 8 g of protein. ??? Nuts (peanuts, pistachios, almonds) ??? 1 oz has 6 g of protein. ??? Peanut butter ??? 1 oz has 7???8 g of protein. ??? Pork tenderloin (cooked) ??? 3 oz has 18.4 g of protein. ??? Pumpkin seeds ??? 1 oz has 8.5 g of protein. ??? Soybeans (roasted) ??? 1 oz has 8 g of protein. ??? Soybeans (cooked) ??? 1/2 cup has 11 g of protein. ??? Soy milk ??? 1 cup (8 oz) has 5???10 g of protein. ??? Soy or vegetable zuri ??? 1 zuri has 11 g of protein. ??? [place] seeds ??? 1 oz has 5.5 g of protein. ??? Tofu (firm) ??? 1/2 cup has 20 g of protein. ??? Tuna (canned in water) ??? 3 oz has 20 g of protein. ??? Yogurt ??? 6 oz has 8 g of protein. Fall Prevention ??? Use night lights. ??? Install grab bars by the toilet and in the tub and shower. Do not use towel bars as grab bars. ??? Use non-skid mats or decals on the floor of the tub or shower. ??? If you need to sit down while you are in the shower, use a plastic, non-slip stool. ??? Keep the floor dry. Immediately clean up any water that spills on the floor. ??? Remove soap buildup in the tub or shower on a regular basis. ??? Remove throw rugs and other tripping hazards from the floor. ??? Place frequently used items in advs-os-gwizq places ??? Keep electrical cables out of the way. ??? Do not leave any items on the stairs. ??? Make sure that there are handrails on both sides of the stairs. Fix handrails that are broken or loose. Make sure that handrails are as long as the stairways. ??? Check any carpeting to make sure that it is firmly attached to the stairs. Fix any carpet that is loose or worn. ??? Avoid having throw rugs at the top or bottom of stairways, or secure the rugs with carpet tape to prevent them from moving. ??? Wear closed-toe shoes that fit well and support your feet. Wear shoes that have rubber soles or low heels. ??? Use mobility aids as needed, such as canes, walkers, scooters, and crutches. ??? Turn on lights if it is dark. Replace any light bulbs that burn out. ??? Set up furniture so that there are clear paths. Keep the furniture in the same spot. ??? Be aware of any and all pets. ??? Review your medicines with your healthcare provider. Some medicines can cause dizziness or changes in blood pressure, which increase your risk of falling. Hand Washing You should wash your hands whenever you think they are dirty. You should also wash your hands: ??? After: ??? Working or playing outside. ??? Touching an animal or its toys or leash. ??? Handling livestock. ??? Using the bathroom. ??? Using household file clerk or toxic chemicals. ??? Touching or taking out the garbage. ??? Touching anything dirty around your home. ??? Handling soiled clothes or rags. ??? Taking care of a sick child. This includes touching used tissues, toys, and clothes. ??? Sneezing, coughing, or blowing your nose. ??? Using public transportation. ??? Shaking hands. ??? Using a phone, including your mobile phone. ??? Touching money. ??? Before and after: ??? Preparing food. ??? Feeding a baby or young child. ??? Eating. ??? Visiting or taking care of someone who is sick. ??? Changing a diaper. ??? Changing a bandage (dressing) or taking care of an injury or wound. ??? Giving or taking medicine. If soap and clean water are not available, use an alcohol-based wipe, spray, or hand gel. Use a hand-sanitizing agent that contains at least 60% alcohol. If you are preparing food, hand sanitizers are not recommended as a substitute for hand washing. Walker Use To Walk With a Front-Wheeled Walker: 1. Slide your front-wheeled walker one step-length in front of you. Your toes should be farther forward than the back legs of your walker. 2. Hold on to the walker for support, and step your weaker (surgery) leg into the middle of the walker. 3. Step your stronger leg forward to land next to your weaker leg. 4. Repeat the process for each step. ??? Always keep both feet within the width of the walker's legs or wheels. ??? When using your walker, you should not feel like you need to lean forward or to the side to keep your hands on the handgrips. ??? Make sure you are following any weight-bearing instructions that your health care provider has given you. ??? Be careful not to let the walker get too far ahead of you as you walk. ??? If your walker does not glide well over carpet, consider cutting an X into two tennis balls and placing the balls over the back legs of your walker. How to use a walker on a curb or step To Use a Walker to Step Up: 1. Put all four legs of the walker on the curb or step. 2. Get your feet as close to the curb or step as you can. 3. Test the steadiness of the walker by pressing down on the handgrips. 4. If the walker is steady, press down on it with your hands as you step up with your stronger leg. 5. Step up with your weaker leg. To Use a Walker to Step Down: 1. Put all four legs of the walker on the surface that is lower than the curb or step. 2. Get your feet as close to the curb or step as you can. 3. Test the steadiness of the walker by pressing down on the handgrips. 4. If the walker is steady, press down on it with your hands as you step down with your weaker leg. 5. Step down with your stronger leg. gabapentin (GA ba PEN tin) Gralise, Horizant, Neurontin What is the most important information I should know about gabapentin? Some people have thoughts about suicide while taking this medicine. Children taking gabapentin may have behavior changes. Stay alert to changes in your mood or symptoms. Report any new or worsening symptoms to your doctor. Do not stop using gabapentin suddenly, even if you feel fine. What is gabapentin? Gabapentin is an anti-epileptic drug, also called an anticonvulsant. It affects chemicals and nerves in the body that are involved in the cause of seizures and some types of pain. Gabapentin is used in adults to treat nerve pain caused by herpes virus or shingles (herpes zoster). The Horizant brand of gabapentin is also used to treat restless legs syndrome (RLS). The Neurontin brand of gabapentin is also used to treat seizures in adults and children who are at least 3 years old. Use only the brand and form of gabapentin your doctor has prescribed. Check your medicine each time you get a refill to make sure you receive the correct form. Gabapentin may also be used for purposes not listed in this medication guide. What should I discuss with my healthcare provider before taking gabapentin? You should not use gabapentin if you are allergic to it. To make sure gabapentin is safe for you, tell your doctor if you have ever had: ?? kidney disease (or if you are on dialysis); ?? diabetes; ?? depression, a mood disorder, or suicidal thoughts or actions; ?? a seizure (unless you take gabapentin to treat seizures); ?? liver disease; ?? heart disease; or ?? (for patients with RLS) if you are a day sleeper or work a wireline operator. Some people have thoughts about suicide while taking this medicine. Your doctor should check your progress at regular visits. Your family or other caregivers should also be alert to changes in your mood or symptoms. It is not known whether this medicine will harm an unborn baby. Tell your doctor if you are or plan to become . Seizure control is very important during , and having a seizure could harm both mother and baby. Do not start or stop taking gabapentin for seizures without your doctor's advice, and tell your doctor right away if you become . Gabapentin can pass into breast milk, but effects on the nursing baby are not known. Tell your doctor if you are breast-feeding. How should I take gabapentin? Follow all directions on your prescription label. Do not take this medicine in larger or smaller amounts or for longer than recommended. The Horizant brand of gabapentin should not be taken during the day. For best results, take Horizant with food at about 5:00 in the evening. Both Gralise and Horizant should be taken with food. Neurontin can be taken with or without food. If you break a Neurontin tablet and take only half of it, take the other half at your next dose. Any tablet that has been broken should be used as soon as possible or within a few days. Do not crush, chew, or break an extended-release tablet. Swallow it whole. Measure liquid medicine with the dosing syringe provided, or with a special dose-measuring spoon or medicine cup. If you do not have a dose-measuring device, ask your pharmacist for one. If your doctor changes your brand, strength, or type of gabapentin, your dosage needs may change. Ask your pharmacist if you have any questions about the new kind of gabapentin you receive at the pharmacy. Do not stop using gabapentin suddenly, even if you feel fine. Stopping suddenly may cause increased seizures. Follow your doctor's instructions about tapering your dose. Wear a medical alert tag or carry an ID card stating that you have seizures. Any medical care provider who treats you should know that you take seizure medication. This medicine can cause unusual results with certain medical tests. Tell any doctor who treats you that you are using gabapentin. Store gabapentin tablets and capsules at room temperature away from light and moisture. Store the liquid medicine in the refrigerator. Do not freeze. What happens if I miss a dose? Take the missed dose as soon as you remember. Be sure to take the medicine with food. Skip the missed dose if it is almost time for your next scheduled dose. Do not take extra medicine to make up the missed dose. What happens if I overdose? Seek emergency medical attention or call the Poison Help line at . What should I avoid while taking gabapentin? This medicine may impair your thinking or reactions. Be careful if you drive or do anything that requires you to be alert. Avoid taking an antacid within 2 hours before or after you take gabapentin. Antacids can make it harder for your body to absorb gabapentin. Drinking alcohol with this medicine can cause side effects. What are the possible side effects of gabapentin? Get emergency medical help if you have signs of an allergic reaction: hives; difficult breathing; swelling of your face, lips, tongue, or throat. Seek medical treatment if you have a serious drug reaction that can affect many parts of your body. Symptoms may include: skin rash, fever, swollen glands, flu-like symptoms, muscle aches, severe weakness, unusual bruising, or yellowing of your skin or eyes. This reaction may occur several weeks after you began using gabapentin. Report any new or worsening symptoms to your doctor, such as: mood or behavior changes, anxiety, panic attacks, trouble sleeping, or if you feel impulsive, irritable, agitated, hostile, aggressive, restless, hyperactive (mentally or physically), depressed, or have thoughts about suicide or hurting yourself. Call your doctor at once if you have: ?? increased seizures; ?? severe weakness or tiredness; ?? problems with balance or muscle movement; ?? upper stomach pain; ?? chest pain, new or worsening cough with fever, trouble breathing; ?? severe tingling or numbness; ?? rapid eye movement; or ?? kidney problems--little or no urination, painful or difficult urination, swelling in your feet or ankles. Some side effects are more likely in children taking gabapentin. Contact your doctor if the child taking this medicine has any of the following side effects: ?? changes in behavior; ?? memory problems; ?? trouble concentrating; or ?? acting restless, hostile, or aggressive. Common side effects may include: ?? headache, dizziness, drowsiness, tiredness; ?? swelling in your hands or feet; ?? problems with your eyes; ?? coordination problems; or ?? (in children) fever, nausea, vomiting. This is not a complete list of side effects and others may occur. Call your doctor for medical advice about side effects. You may report side effects to FDA at 3-101-SAH-8774. What other drugs will affect gabapentin? Taking gabapentin with other drugs that make you sleepy can worsen this effect. Ask your doctor before taking a sleeping pill, narcotic medication, muscle relaxer, or medicine for anxiety, depression, or seizures. Other drugs may interact with gabapentin, including prescription and sntq-cwj-[id number] medicines, vitamins, and herbal products. Tell your doctor about all your current medicines and any medicine you start or stop using. Where can I get more information? Your pharmacist can provide more information about gabapentin. Remember, keep this and all other medicines out of the reach of children, never share your medicines with others, and use this medication only for the indication prescribed. Every effort has been made to ensure that the information provided by [employer]. ('[employer]') is accurate, up-to-date, and complete, but no guarantee is made to that effect. Drug information contained herein may be time sensitive. [employer] information has been compiled for use by healthcare practitioners and consumers in the [place] and therefore The [employer] does not warrant that uses outside of the [place] are appropriate, unless specifically indicated otherwise. [employer] drug information does not endorse drugs, diagnose patients or recommend therapy. [employer] drug information is an informational resource designed to assist licensed healthcare practitioners in caring for their patients and/or to serve consumers viewing this service as a supplement to, and not a substitute for, the expertise, skill, knowledge and judgment of healthcare practitioners. The absence of a warning for a given drug or drug combination in no way should be construed to indicate that the drug or drug combination is safe, effective or appropriate for any given patient. [employer] does not assume any responsibility for any aspect of healthcare administered with the aid of information The [employer] provides. The information contained herein is not intended to cover all possible uses, directions, precautions, warnings, drug interactions, allergic reactions, or adverse effects. If you have questions about the drugs you are taking, check with your doctor, nurse or pharmacist. Copyright 6491-5969 [employer]. Version: 14.01. Revision Date: 02/10/2017. hydromorphone (oral) (NOAH droe MOR fone) Dilaudid, Exalgo What is the most important information I should know about hydromorphone? MISUSE OF OPIOID MEDICINE CAN CAUSE ADDICTION, OVERDOSE, OR . Keep the medication in a place where others cannot get to it. Taking opioid medicine during may cause life-threatening withdrawal symptoms in the . Fatal side effects can occur if you use opioid medicine with alcohol, or with other drugs that cause drowsiness or slow your breathing. What is hydromorphone? Hydromorphone is an opioid medication used to treat moderate to severe pain. The extended-release form of this medicine is for iottxp-ucz-skzfs treatment of moderate to severe pain, not for use on an as-needed basis for pain. Hydromorphone may also be used for purposes not listed in this medication guide. What should I discuss with my healthcare provider before using hydromorphone? You should not take this medicine if you have ever had an allergic reaction to hydromorphone or other narcotic medicines, or if you have: ?? severe asthma or breathing problems; ?? a blockage in your stomach or intestines; or ?? a bowel obstruction called paralytic ileus. Do not use hydromorphone if you have used an MAO inhibitor in the past 14 days. A dangerous drug interaction could occur. MAO inhibitors include isocarboxazid, linezolid, methylene blue injection, phenelzine, rasagiline, selegiline, tranylcypromine, and others. Tell your doctor if you have ever had: ?? a head injury, brain tumor, or seizures; ?? alcoholism, drug addiction, or mental illness; ?? urination problems; ?? liver or kidney disease; ?? a sulfite allergy; or ?? problems with your gallbladder, pancreas, or thyroid. If you use opioid medicine while you are , your baby could become dependent on the drug. This can cause life-threatening withdrawal symptoms in the baby after it is born. Babies born dependent on opioids may need medical treatment for several weeks. Do not breast-feed. Hydromorphone can pass into breast milk and may cause drowsiness or breathing problems in a nursing baby. How should I use hydromorphone? Follow the directions on your prescription label and read all medication guides. Never use hydromorphone in larger amounts, or for longer than prescribed. Tell your doctor if you feel an increased urge to take more of this medicine. Never share opioid medicine with another person, especially someone with a history of drug abuse or addiction. MISUSE CAN CAUSE ADDICTION, OVERDOSE, OR . Keep the medication in a place where others cannot get to it. Selling or giving away opioid medicine is against the law. Stop taking all other qqqklb-whq-mxbdk narcotic pain medications when you start taking hydromorphone. Swallow the capsule or tablet whole to avoid exposure to a potentially fatal overdose. Do not crush, chew, break, open, or dissolve. Measure liquid medicine carefully. Use the dosing syringe provided, or use a medicine dose-measuring device (not a kitchen spoon). Do not stop using hydromorphone suddenly, or you could have unpleasant withdrawal symptoms. Ask your doctor how to safely stop using hydromorphone. Never crush or break a hydromorphone pill to inhale the powder or mix it into a liquid to inject the drug into your vein. This can cause in . Store at room temperature away from moisture, heat, and light. Throw away any unused liquid after 90 days. Keep track of your medicine. You should be aware if anyone is using it improperly or without a prescription. Do not keep leftover opioid medication. Just one dose can cause in someone using this medicine accidentally or improperly. Ask your pharmacist where to locate a drug take-back disposal program. If there is no take-back program, flush the unused medicine down the toilet. What happens if I miss a dose? Since hydromorphone is used for pain, you are not likely to miss a dose. Skip any missed dose if it is almost time for your next dose. Do not use two doses at one time. What happens if I overdose? Seek emergency medical attention or call the Poison Help line at . A hydromorphone overdose can be fatal, especially in a child or other person using the medicine without a prescription. Overdose symptoms may include slow heart rate, severe drowsiness, muscle weakness, cold and clammy skin, pinpoint pupils, very slow breathing, or coma. What should I avoid while using hydromorphone? Do not drink alcohol. Dangerous side effects or could occur. Avoid driving or hazardous activity until you know how this medicine will affect you. Dizziness or drowsiness can cause falls, accidents, or severe injuries. What are the possible side effects of hydromorphone? Get emergency medical help if you have signs of an allergic reaction: hives; difficulty breathing; swelling of your face, lips, tongue, or throat. Opioid medicine can slow or stop your breathing, and may occur. A person caring for you should seek emergency medical attention if you have slow breathing with long pauses, blue colored lips, or if you are hard to wake up. Call your doctor at once if you have: ?? noisy breathing, sighing, shallow breathing; ?? a slow heart rate or weak pulse; ?? confusion, feelings of extreme happiness or sadness; ?? severe weakness or drowsiness; ?? a light-headed feeling, like you might pass out; ?? low cortisol levels--nausea, vomiting, loss of appetite, dizziness, worsening tiredness or weakness. Seek medical attention right away if you have symptoms of serotonin syndrome, such as: agitation, hallucinations, fever, sweating, shivering, fast heart rate, muscle stiffness, twitching, loss of coordination, nausea, vomiting, or diarrhea. Serious side effects may be more likely in older adults and those who are malnourished or debilitated. Long-term use of opioid medication may affect fertility (ability to have children) in men or women. It is not known whether opioid effects on fertility are permanent. Common side effects may include: ?? drowsiness, tiredness; ?? dizziness; ?? headache; or ?? constipation, nausea, vomiting, stomach pain. This is not a complete list of side effects and others may occur. Call your doctor for medical advice about side effects. You may report side effects to FDA at 2-435-MZT-8880. What other drugs will affect hydromorphone? Opioid medication can interact with many other drugs and cause dangerous side effects or . Be sure your doctor knows if you also use: ?? other narcotic medications--opioid pain medicine or prescription cough medicine; ?? a sedative like Valium--diazepam, alprazolam, lorazepam, Xanax, Klonopin, Versed, and others; ?? drugs that make you sleepy or slow your breathing--a sleeping pill, muscle relaxer, medicine to treat mood disorders or mental illness; or ?? drugs that affect serotonin levels in your body--a stimulant, or medicine for depression, Parkinson's disease, migraine headaches, serious infections, or nausea and vomiting. This list is not complete. Other drugs may affect hydromorphone, including prescription and ejzg-ndw-ujuiqyg medicines, vitamins, and herbal products. Not all possible interactions are listed here. Where can I get more information? Your doctor or pharmacist can provide more information about hydromorphone. Remember, keep this and all other medicines out of the reach of children, never share your medicines with others, and use this medication only for the indication prescribed. Every effort has been made to ensure that the information provided by [employer]. [employer]') is accurate, up-to-date, and complete, but no guarantee is made to that effect. Drug information contained herein may be time sensitive. [employer] information has been compiled for use by healthcare practitioners and consumers in the [place] and therefore [employer] does not warrant that uses outside of the [place] are appropriate, unless specifically indicated otherwise. [employer] drug information does not endorse drugs, diagnose patients or recommend therapy. [employer] drug information is an informational resource designed to assist licensed healthcare practitioners in caring for their patients and/or to serve consumers viewing this service as a supplement to, and not a substitute for, the expertise, skill, knowledge and judgment of healthcare practitioners. The absence of a warning for a given drug or drug combination in no way should be construed to indicate that the drug or drug combination is safe, effective or appropriate for any given patient. [employer] does not assume any responsibility for any aspect of healthcare administered with the aid of information The [employer] provides. The information contained herein is not intended to cover all possible uses, directions, precautions, warnings, drug interactions, allergic reactions, or adverse effects. If you have questions about the drugs you are taking, check with your doctor, nurse or pharmacist. Copyright [id number] [employer]. Version: 9.02. Revision Date: 03/31/2018. acetaminophen and hydrocodone (a SEET a MIN oh fen and noah droe KOE done) Hycet, Lorcet, [place], Verdrocet, Vicodin, Xodol, Zamicet What is the most important information I should know about acetaminophen and hydrocodone? MISUSE OF OPIOID MEDICINE CAN CAUSE ADDICTION, OVERDOSE, OR . Keep the medication in a place where others cannot get to it. An overdose of acetaminophen can damage your liver or cause . Call your doctor at once if you have pain in your upper stomach, loss of appetite, dark urine, or jaundice (yellowing of your skin or eyes). Taking opioid medicine during may cause life-threatening withdrawal symptoms in the . Fatal side effects can occur if you use opioid medicine with alcohol, or with other drugs that cause drowsiness or slow your breathing. Stop taking this medicine and call your doctor right away if you have skin redness or a rash that spreads and causes blistering and peeling. What is acetaminophen and hydrocodone? Hydrocodone is an opioid pain medication, sometimes called a narcotic. Acetaminophen is a less potent pain reliever that increases the effects of hydrocodone. Acetaminophen and hydrocodone is a combination medicine used to relieve moderate to severe pain. Acetaminophen and hydrocodone may also be used for purposes not listed in this medication guide. What should I discuss with my healthcare provider before taking acetaminophen and hydrocodone? You should not use this medicine if you are allergic to acetaminophen or hydrocodone, or if you have: ?? severe asthma or breathing problems; or ?? a blockage in your stomach or intestines. Tell your doctor if you have ever had: ?? liver disease; ?? a drug or alcohol addiction; ?? kidney disease; ?? a head injury or seizures; ?? urination problems; or ?? problems with your thyroid, pancreas, or gallbladder. If you use opioid medicine while you are , your baby could become dependent on the drug. This can cause life-threatening withdrawal symptoms in the baby after it is born. Babies born dependent on opioids may need medical treatment for several weeks. Do not breast-feed. This medicine can pass into breast milk and cause drowsiness, breathing problems, or in a nursing baby. How should I take acetaminophen and hydrocodone? Follow all directions on your prescription label. Never take this medicine in larger amounts, or for longer than prescribed. An overdose can damage your liver or cause . Tell your doctor if the medicine seems to stop working as well in relieving your pain. Always check your bottle to make sure you have received the correct pills (same brand and type) of medicine prescribed by your doctor. Never share this medicine with another person, especially someone with a history of drug abuse or addiction. MISUSE CAN CAUSE ADDICTION, OVERDOSE, OR . Keep the medicine in a place where others cannot get to it. Selling or giving away acetaminophen and hydrocodone is against the law. Measure liquid medicine carefully. Use the dosing syringe provided, or use a medicine dose-measuring device (not a kitchen spoon). If you need surgery or medical tests, tell the doctor ahead of time that you are using this medicine. You should not stop using this medicine suddenly. Follow your doctor's instructions about tapering your dose. Store at room temperature away from moisture and heat. Keep track of your medicine. You should be aware if anyone is using it improperly or without a prescription. Do not keep leftover opioid medication. Just one dose can cause in someone using this medicine accidentally or improperly. Ask your pharmacist where to locate a drug take-back disposal program. If there is no take-back program, flush the unused medicine down the toilet. What happens if I miss a dose? Since this medicine is used for pain, you are not likely to miss a dose. Skip any missed dose if it is almost time for your next dose. Do not use two doses at one time. What happens if I overdose? Seek emergency medical attention or call the Poison Help line at . An overdose of acetaminophen and hydrocodone can be fatal. The first signs of an acetaminophen overdose include loss of appetite, nausea, vomiting, stomach pain, sweating, and confusion or weakness. Later symptoms may include pain in your upper stomach, dark urine, and yellowing of your skin or the whites of your eyes. Overdose can also cause severe muscle weakness, pinpoint pupils, very slow breathing, extreme drowsiness, or coma. What should I avoid while taking acetaminophen and hydrocodone? Avoid driving or operating machinery until you know how this medicine will affect you. Dizziness or drowsiness can cause falls, accidents, or severe injuries. Do not drink alcohol. Dangerous side effects or could occur. Ask a doctor or pharmacist before using any other medicine that may contain acetaminophen (sometimes abbreviated as APAP). Taking certain medications together can lead to a fatal overdose. What are the possible side effects of acetaminophen and hydrocodone? Get emergency medical help if you have signs of an allergic reaction: hives; difficulty breathing; swelling of your face, lips, tongue, or throat. Opioid medicine can slow or stop your breathing, and may occur. A person caring for you should seek emergency medical attention if you have slow breathing with long pauses, blue colored lips, or if you are hard to wake up. In rare cases, acetaminophen may cause a severe skin reaction that can be fatal. This could occur even if you have taken acetaminophen in the past and had no reaction. Stop taking this medicine and call your doctor right away if you have skin redness or a rash that spreads and causes blistering and peeling. Call your doctor at once if you have: ?? noisy breathing, sighing, shallow breathing; ?? a light-headed feeling, like you might pass out; ?? liver problems--nausea, upper stomach pain, tiredness, loss of appetite, dark urine, luis alfredo-colored stools, jaundice (yellowing of the skin or eyes); or ?? low cortisol levels-- nausea, vomiting, loss of appetite, dizziness, worsening tiredness or weakness. Seek medical attention right away if you have symptoms of serotonin syndrome, such as: agitation, hallucinations, fever, sweating, shivering, fast heart rate, muscle stiffness, twitching, loss of coordination, nausea, vomiting, or diarrhea. Serious side effects may be more likely in older adults and those who are overweight, malnourished, or debilitated. Long-term use of opioid medication may affect fertility (ability to have children) in men or women. It is not known whether opioid effects on fertility are permanent. Common side effects include: ?? dizziness, drowsiness, feeling tired; ?? nausea, vomiting, stomach pain; ?? constipation; or ?? headache. This is not a complete list of side effects and others may occur. Call your doctor for medical advice about side effects. You may report side effects to FDA at 5-975-CEM-3133. What other drugs will affect acetaminophen and hydrocodone? You may have breathing problems or withdrawal symptoms if you start or stop taking certain other medicines. Tell your doctor if you also use an antibiotic, antifungal medication, heart or blood pressure medication, seizure medication, or medicine to treat HIV or hepatitis C. Opioid medication can interact with many other drugs and cause dangerous side effects or . Be sure your doctor knows if you also use: ?? cold or allergy medicines, bronchodilator asthma/COPD medication, or a diuretic ('water pill'); ?? medicines for motion sickness, irritable bowel syndrome, or overactive bladder; ?? other narcotic medications--opioid pain medicine or prescription cough medicine; ?? a sedative like Valium--diazepam, alprazolam, lorazepam, Xanax, Klonopin, Versed, and others; ?? drugs that make you sleepy or slow your breathing--a sleeping pill, muscle relaxer, medicine to treat mood disorders or mental illness; ?? drugs that affect serotonin levels in your body--a stimulant, or medicine for depression, Parkinson's disease, migraine headaches, serious infections, or nausea and vomiting. This list is not complete. Other drugs may affect acetaminophen and hydrocodone, including prescription and dyab-tbm-nzrxgqm medicines, vitamins, and herbal products. Not all possible interactions are listed here. Where can I get more information? Your doctor or pharmacist can provide more information about acetaminophen and hydrocodone. Remember, keep this and all other medicines out of the reach of children, never share your medicines with others, and use this medication only for the indication prescribed. Every effort has been made to ensure that the information provided by [employer]. [employer] is accurate, up-to-date, and complete, but no guarantee is made to that effect. Drug information contained herein may be time sensitive. [employer] information has been compiled for use by healthcare practitioners and consumers in the [place] and therefore [employer] does not warrant that uses outside of the [place] are appropriate, unless specifically indicated otherwise. [employer] drug information does not endorse drugs, diagnose patients or recommend therapy. [employer] drug information is an informational resource designed to assist licensed healthcare practitioners in caring for their patients and/or to serve consumers viewing this service as a supplement to, and not a substitute for, the expertise, skill, knowledge and judgment of healthcare practitioners. The absence of a warning for a given drug or drug combination in no way should be construed to indicate that the drug or drug combination is safe, effective or appropriate for any given patient. [employer] does not assume any responsibility for any aspect of healthcare administered with the aid of information [employer] provides. The information contained herein is not intended to cover all possible uses, directions, precautions, warnings, drug interactions, allergic reactions, or adverse effects. If you have questions about the drugs you are taking, check with your doctor, nurse or pharmacist. Copyright 2043-4206 [employer]. Version: 15.02. Revision Date: 03/08/2018. tramadol (TRAM a dol) [employer]Zip, Ultram, Ultram ER What is the most important information I should know about tramadol? MISUSE OF THIS MEDICINE CAN CAUSE ADDICTION, OVERDOSE, OR . Keep the medication in a place where others cannot get to it. Tramadol should not be given to a child younger than 12 years old. Ultram ER should not be given to anyone younger than 18 years old. Taking tramadol during may cause life-threatening withdrawal symptoms in the . Fatal side effects can occur if you use tramadol with alcohol, or with other drugs that cause drowsiness or slow your breathing. What is tramadol? Tramadol is an pain medicine similar to an opioid (sometimes called, a narcotic). Tramadol is used to treat moderate to severe pain. The extended-release form of this medicine is for kbebgw-aln-wcpse treatment of pain. This form of tramadol is not for use on an as-needed basis for pain. Tramadol may also be used for purposes not listed in this medication guide. What should I discuss with my healthcare provider before taking tramadol? You should not take tramadol if you are allergic to it, or if you have: ?? severe asthma or breathing problems; ?? a blockage in your stomach or intestines; ?? if you have recently used alcohol, sedatives, tranquilizers, or narcotic medications; or ?? if you have used an MAO inhibitor in the past 14 days (such as isocarboxazid, linezolid, methylene blue injection, phenelzine, rasagiline, selegiline, or tranylcypromine). Tramadol should not be given to a child younger than 12 years old. Ultram ER should not be given to anyone younger than 18 years old. Do not give tramadol to anyone younger than 18 years old who recently had surgery to remove the tonsils or adenoids. Seizures have occurred in some people taking tramadol. Talk with your doctor about your seizure risk, which may be higher if you have ever had: ?? a head injury, epilepsy or other seizure disorder; ?? drug or alcohol addiction; or ?? a metabolic disorder. Tell your doctor if you have ever had: ?? liver or kidney disease; ?? urination problems; ?? problems with your gallbladder, pancreas, or thyroid; ?? a stomach disorder; or ?? mental illness, or suicide attempt. If you use tramadol while you are , your baby could become dependent on the drug. This can cause life-threatening withdrawal symptoms in the baby after it is born. Babies born dependent on habit-forming medicine may need medical treatment for several weeks. Do not breast-feed. Tramadol can pass into breast milk and cause drowsiness, breathing problems, or in a nursing baby. How should I take tramadol? Follow the directions on your prescription label and read all medication guides. Never use tramadol in larger amounts, or for longer than prescribed. Tell your doctor if you feel an increased urge to take more of this medicine. Never share this medicine with another person, especially someone with a history of drug abuse or addiction. MISUSE CAN CAUSE ADDICTION, OVERDOSE, OR . Keep the medicine in a place where others cannot get to it. Selling or giving away tramadol is against the law. Stop taking all other rcvevr-qwl-xztqv narcotic pain medications when you start taking tramadol. Tramadol can be taken with or without food, but take it the same way each time. Swallow the capsule or tablet whole to avoid exposure to a potentially fatal overdose. Do not crush, chew, break, open, or dissolve. Never crush or break a tramadol pill to inhale the powder or mix it into a liquid to inject the drug into your vein. This practice has resulted in . Do not stop using tramadol suddenly, or you could have unpleasant withdrawal symptoms. Ask your doctor how to safely stop using tramadol. Store at room temperature away from moisture and heat. Keep track of your medicine. You should be aware if anyone is using it improperly or without a prescription. Do not keep leftover opioid medication. Just one dose can cause in someone using this medicine accidentally or improperly. Ask your pharmacist where to locate a drug take-back disposal program. If there is no take-back program, flush the unused medicine down the toilet. What happens if I miss a dose? Since tramadol is used for pain, you are not likely to miss a dose. Skip any missed dose if it is almost time for your next dose. Do not use two doses at one time. What happens if I overdose? Seek emergency medical attention or call the Poison Help line at . A tramadol overdose can be fatal, especially in a child or other person using the medicine without a prescription. Overdose symptoms may include slow heart rate, severe drowsiness, cold and clammy skin, very slow breathing, or coma. What should I avoid while taking tramadol? Do not drink alcohol. Dangerous side effects or could occur. Avoid driving or hazardous activity until you know how this medicine will affect you. Dizziness or drowsiness can cause falls, accidents, or severe injuries. What are the possible side effects of tramadol? Get emergency medical help if you have signs of an allergic reaction (hives, difficult breathing, swelling in your face or throat) or a severe skin reaction (fever, sore throat, burning in your eyes, skin pain, red or purple skin rash that spreads and causes blistering and peeling). This medicine can slow or stop your breathing, and may occur. A person caring for you should seek emergency medical attention if you have slow breathing with long pauses, blue colored lips, or if you are hard to wake up. Call your doctor at once if you have: ?? noisy breathing, sighing, shallow breathing; ?? a slow heart rate or weak pulse; ?? a light-headed feeling, like you might pass out; ?? seizure (convulsions); or ?? low cortisol levels--nausea, vomiting, loss of appetite, dizziness, worsening tiredness or weakness. Seek medical attention right away if you have symptoms of serotonin syndrome, such as: agitation, hallucinations, fever, sweating, shivering, fast heart rate, muscle stiffness, twitching, loss of coordination, nausea, vomiting, or diarrhea. Serious side effects may be more likely in older adults and those who are overweight, malnourished, or debilitated. Long-term use of opioid medication may affect fertility (ability to have children) in men or women. It is not known whether opioid effects on fertility are permanent. Common side effects may include: ?? constipation, nausea, vomiting, stomach pain; ?? dizziness, drowsiness, tiredness; ?? headache; or ?? itching. This is not a complete list of side effects and others may occur. Call your doctor for medical advice about side effects. You may report side effects to FDA at 1-264-JYH-9501. What other drugs will affect tramadol? You may have breathing problems or withdrawal symptoms if you start or stop taking certain other medicines. Tell your doctor if you also use an antibiotic, antifungal medication, heart or blood pressure medication, seizure medication, or medicine to treat HIV or hepatitis C. Opioid medication can interact with many other drugs and cause dangerous side effects or . Be sure your doctor knows if you also use: ?? cold or allergy medicines, bronchodilator asthma/COPD medication, or a diuretic ('water pill'); ?? medicines for motion sickness, irritable bowel syndrome, or overactive bladder; ?? other narcotic medications--opioid pain medicine or prescription cough medicine; ?? a sedative like Valium--diazepam, alprazolam, lorazepam, Xanax, Klonopin, Versed, and others; ?? drugs that make you sleepy or slow your breathing--a sleeping pill, muscle relaxer, medicine to treat mood disorders or mental illness; or ?? drugs that affect serotonin levels in your body--a stimulant, or medicine for depression, Parkinson's disease, migraine headaches, serious infections, or nausea and vomiting. This list is not complete and many other drugs may affect tramadol. This includes prescription and hhss-elw-liaspbh medicines, vitamins, and herbal products. Not all possible drug interactions are listed here. Where can I get more information? Your doctor or pharmacist can provide more information about tramadol. Remember, keep this and all other medicines out of the reach of children, never share your medicines with others, and use this medication only for the indication prescribed. Every effort has been made to ensure that the information provided by [employer]. ('[employer]') is accurate, up-to-date, and complete, but no guarantee is made to that effect. Drug information contained herein may be time sensitive. The [employer] information has been compiled for use by healthcare practitioners and consumers in the [place] and therefore The [employer] does not warrant that uses outside of the [place] are appropriate, unless specifically indicated otherwise. The [employer]'s drug information does not endorse drugs, diagnose patients or recommend therapy. [employer] drug information is an informational resource designed to assist licensed healthcare practitioners in caring for their patients and/or to serve consumers viewing this service as a supplement to, and not a substitute for, the expertise, skill, knowledge and judgment of healthcare practitioners. The absence of a warning for a given drug or drug combination in no way should be construed to indicate that the drug or drug combination is safe, effective or appropriate for any given patient. [employer] does not assume any responsibility for any aspect of healthcare administered with the aid of information The [employer] provides. The information contained herein is not intended to cover all possible uses, directions, precautions, warnings, drug interactions, allergic reactions, or adverse effects. If you have questions about the drugs you are taking, check with your doctor, nurse or pharmacist. Copyright 5313-5033 [employer]. Version: 20.01. Revision Date: 08/12/2018. Emergency Awareness and Preventative Care STROKE is an EMERGENCY Every Minute Counts Act FAST and Check for these signs: FACE Does the face look uneven? ARM Does one arm drift down? SPEECH Does their speech sound strange? TIME Call at any sign of stroke Stroke Risk Factors Atrial Fibrillation (irregular heartbeat) Diabetes Family history of stroke Heart Disease Heavy alcohol use High Blood Pressure High Cholesterol Physical inactivity and obesity Smoking Cigarette Smoking The facts are clear, cigarette smoking will shorten your life. Smoking can cause many illnesses along the way. As a healthcare provider, we recommend that you stop smoking. Assistance with quitting is available by contacting 0-279-EZUSNOW. This is a free resource providing counseling, support, and referral. Or you may contact your personal physician. National Suicide Prevention Lifeline: The National Suicide Prevention Lifeline is a national network of local crisis centers that provides free and confidential emotional support to people in suicidal crisis or emotional distress 24 hours a day, 7 days a week. Don't Wait! Stop a Heart Attack Before it Starts What is a heart attack? A heart attack is damage or to a part of the heart from severely decreased or lack of blood flow to the heart. Over time, arteries can become narrow from the buildup of fat and cholesterol, which is called plaque. The plaque can rupture causing a blood clot to form. When the blood clot forms, the artery can become severely narrowed or completely blocked, causing a heart attack. Heart attack is the leading cause of in the [place]. 85% of muscle damage occurs within the first 2 hours. Delay in the recognition of heart attack symptoms increases the chances of . Know the early symptoms of a heart attack: Nausea Feeling of fullness in chest Jaw Pain Pain that travels down one or both arms Fatigue/being tired Anxiety Back Pain Chest pressure, squeezing, or discomfort Shortness of breath Sweating, or a cold sweat Feeling of impending doom There are unusual signs of a heart attack, too! Women, the elderly, and diabetics may present with atypical symptoms: Fainting/dizziness Weakness Confusion Risk Factors for a Heart Attack Some heart disease risk factors, such as age and family history, cannot be changed. Others, like smoking and lack of exercise, can be changed. Smoking High Cholesterol High Blood Pressure Family History Obesity Age Gender (Males are at higher risk) Lack of Exercise Diabetes Diet Stress Excessive Alcohol Intake If you or someone you know is experiencing the signs and symptoms of a heart attack, DON???T DELAY. Call immediately and seek help. If someone collapses, perform CPR! Do not attempt to drive if you are having symptoms of heart attack. Hands-Only CPR Why Hands-Only CPR? Hands-Only CPR has been shown to be as effective as conventional CPR for cardiac arrests that occur outside of a hospital. Survival depends on immediately receiving CPR from someone nearby. How do you perform Hands-Only CPR? There are two easy steps: Call if you see a teen or adult collapse Push hard and fast in the center of the chest at a beat of 100 beats per minute. Save a life! 4 WAYS TO GET AHEAD OF SEPSIS SEPSIS is a MEDICAL EMERGENCY. Time matters! Infections put you and your family at risk for a life-threatening condition called sepsis. Sepsis is the body's extreme response to an infection. It is life-threatening, and without timely treatment, sepsis can rapidly lead to tissue damage, organ failure, and . Sepsis happens when an infection you already have-in your skin, lungs, urinary tract or somewhere else-triggers a chain reaction throughout your body. 1 PREVENT INFECTIONS Take good care of chronic conditions. Talk to your doctor about getting the recommended vaccines. 2 PRACTICE GOOD HYGIENE Wash your hands frequently. Keep cuts or open sores clean and covered until they are healed. 3 KNOW THE SYMPTOMS Confusion or disorientation Shortness of breath High heart rate Fever, shivering, or feeling very cold Extreme pain or discomfort Clammy or sweaty skin 4 ACT FAST Get medical care IMMEDIATELY if you suspect sepsis or if you have an infection that is not getting better or is getting worse. To learn more about sepsis and how to prevent infections, visit www.cdc.gov/sepsis. Test Results Laboratory or Other Results This Visit (last charted value for your 12/14/2018 visit) Hematology 12/15/18 05:15:00 Hct: 29.3 % -- Normal range between ( 34.1 and 44.9 ) Hgb: 9.8 Gram/dL -- Normal range between ( 11.2 and 15.7 ) 08/01/19 12:03:00 WBC: 6.2 K/uL -- Normal range between ( 3.9 and 10.0 ) documented in this encounter Plan of Treatment Not on file documented as of this encounter Visit Diagnoses Not on filedocumented in this encounter Care Teams Supervisor Screen Printing Relationship Specialty Start Date End Date Ferny Gentile [address] [place] [id number] PCP - General 05/22/22 documented as of this encounter
--- OUTSIDE RECORDS SUMMARY | 2024-11-14 14:50 | XMS_ITS | Encounter Summary ---
Author Organization [employer] ([place], [place], [place], [place]) Address [address] [place] [address] Care Team Providers Care Electrolytic De Scaler Name Role Phone SeferinoSakinat Primary Care Provider [phone] Encounter Details Date Type Department Care Team (Late st Contact Info) Description 12/14/2018 Transcribed Document [facility] Family Medicine [facility] [place] [address] ProviderArt MD [address] [place] [id number] Social History Tobacco Use Types Packs/Day Years Used Date Smoking Tobacco: Never Assessed Comments Unknown Sex and Gender Information Value Date Recorded Sex Assigned at Female 10/29/2021 6:07 PM CDT Legal Sex Female 6:07 PM CDT Gender Identity Female 10/29/2021 6:07 PM CDT Sexual Orientation Not on file documented as of this encounter Miscellaneous Notes * Cerner Conversion Note - Historical ProviderMD - 12/14/2018 6:06 AM CDT Pre Procedure Adult Entered On: 12/14/2018 6:18 EDT Performed On: 12/14/2018 6:06 EDT by SHERLYN THOMPSON RN Height and Weight, Clinical Dosing Height Source : Stated Height Entry Format : Barber Height, Feet : 5 ft(Converted to: 152 cm, 60 Inch) Height, Inches : 7 Inch(Converted to: 0 ft 7 Inch, 17.78 cm) Clinical Height : 170.18 cm Weight Source : Standing scale Weight Entry Format : Barber Clinical Dosing Weight : 90.91 kg Weight, Pounds : 200 lb Body Surface Area (BSA) : 2.02 m2 Body Mass Index : 31.4 kg/m2 (HI) [place] Body Weight : 61 kg SHERLYN THOMPSON RN - 12/14/2018 6:06 EDT Health Histories Smoking Status : Never (less than 100 in lifetime; none in last 30 days) Smokeless Tobacco Status : Never SHERLYN THOMPSON RN - 12/14/2018 6:06 EDT Social History (As Of: 12/14/2018 06:27:32 EDT) Tobacco: Never (less than 100 in lifetime) Smoking Status. Never Smokeless Tobacco Status. (Last Updated: 12/02/2018 11:37:29 EDT by CINDY DAVID RN) Alcohol: Alcohol Use Frequency Socially. (Last Updated: 12/15/2017 07:16:58 EDT by RHONA GARLAND RN) Alcohol Use History Yes. Alcohol Use Frequency Rarely. (Last Updated: 12/02/2018 11:37:29 EDT by CINDY DAVID RN) Substance Abuse: Drug Use Hx: No. (Last Updated: 12/02/2018 11:37:29 EDT by CINDY DAVID RN) Infectious Disease History Infectious Disease History : Influenza, Measles, Mumps Isolation Needed : Standard Fever/Chills Last 48 Hours : No Travel To Regions with Travel Advisories : No Travel Outside [place] Within Last 30 Days : No Contact With Traveler to Advisory Region : No Exposure to Contagious Illness : No Tuberculosis Symptoms : None SHERLYN THOMPSON RN - 12/14/2018 6:06 EDT Anesthesia/Transfusion History Family History of Anesthesia Reaction : Prior transfusion without reaction Transfusion History : Prior anesthesia without reaction Family History of Anesthesia Reaction : None SHERLYN THOMPSON RN - 12/14/2018 6:06 EDT Functional Assessment Living Situation : Home Patient Lives With : Alone Persons Assisting Patient at Home : Child/Children Current Daily Living Assistance : None Sensory Deficits : None Mobility Assistance Prior to Admission : Partial assistance LAURENT Hx Falls Immediate/Within 3 Months : Yes Current Home Treatments : CPAP Home Equipment : Cane, CPAP unit, Walker Cane : Cane, narrow based Walker : Walker, four wheel Professional Skilled Services : None Special Services and Community Resources : None SHERLYN THOMPSON RN - 12/14/2018 6:23 EDT Psychosocial History Do You Have a History of the Following? : Anxiety Currently in Unsafe Situation : No Do You Have a Support System? : Yes Tried to Harm Yourself in the Past? : No Thoughts of Harming/Killing Yourself : No SHERLYN THOMPSON RN - 12/14/2018 6:06 EDT Advance Directive Patient has Advance Directive *Q : Yes, Advance Directive not with the patient Advance Directive Type : Living will Copy Advance Directive Verified/on Chart : No SHERLYN THOMPSON RN - 12/14/2018 6:06 EDT Teaching/Learning Assessment Barriers To Learning : None evident Individuals Taught : Patient, Child Readiness to Learn : Cooperative Baseline Knowledge of Topic : Good Readiness to Learn : Explanation, Printed materials Learning Style Preferences Patient : Printed materials, Verbal explanation Learning Style Preferences Family : Printed materials, Verbal explanation SHERLYN THOMPSON RN - 12/14/2018 6:06 EDT Education Topics, Periop Preadmission Perioperative Education Grid Arrival Time/Place : Verbalizes understanding Falls : Verbalizes understanding IV's : Verbalizes understanding NPO Status/Directions : Verbalizes understanding Pain Management : Verbalizes understanding Preprocedure Preparations : Verbalizes understanding Preprocedure Tests/Labs : Verbalizes understanding Responsible Adult : Verbalizes understanding Take/Hold Medications Pre-Procedure : Verbalizes understanding SHERLYN THOMPSON RN - 12/14/2018 6:06 EDT General Info Arrived From : Home Mode of Arrival on Unit : Ambulatory Patient Arrival Date/Time : 12/14/2018 5:30 EDT Legal Guardian : Daughter Want Family/Rep/Phys Notified of Admit : No Emergency Contact #1 : Jesi Emergency Contact #1 Emergency Contact #1 Relationship : daughter Emergency Contact #2 : - Emergency Contact #2 Phone Number : - Emergency Contact #2 Relationship : - Information Obtained From : Patient Primary Language : Burundian Preferred Communication Mode : Verbal Communication Barrier : None Currently Lactating : No Status : N/A SHERLYN THOMPSON RN - 12/14/2018 6:06 EDT Sleep Apnea Risk Assmt BiPAP/CPAP Ordered for Home Use : Yes Hx of Obstructive Sleep Apnea Diagnosis : Yes BiPAP/CPAP Used at Home : Yes Age over 50 Years Old : Yes Gender Male : No SHERLYN THOMPSON RN - 12/14/2018 6:06 EDT Osmar Scale Osmar Friction and Shear : No apparent problem Osmar Score : 20 SHERLYN THOMPSON RN - 12/14/2018 6:23 EDT Osmar Sensory Perception : No impairment Osmar Moisture : Rarely moist Osmar Activity : Walks occasionally Osmar Mobility : Slightly limited Osmar Nutrition : Adequate SHERLYN THOMPSON RN - 12/14/2018 6:06 EDT Oxygen Therapy Oxygen Therapy Mode : Room air SHERLYN THOMPSON RN - 12/14/2018 6:06 EDT Pain Assessment Pain Assessment : Initial assessment Pain Scale Used : 0-10 Scale SHERLYN THOMPSON RN - 12/14/2018 6:23 EDT Fall Risk Scales ABCs Fall Injury Risk Identification : Surgery ABC Fall Injury Risk : Moderate to high injury risk LAURENT Hx Falls Immediate/Within 3 Months : Yes Laurent Secondary Diagnosis : Yes LAURENT Use of Ambulatory Aid : Crutches/Cane/Walker LAURENT IV Therapy or IV Access : Yes Laurent Gait/Transferring : Normal, bedrest, immobile Laurent Mental Status : Oriented to own ability Laurent Fall Risk Score : 75 LAURENT Fall Scale Risk Level : 46 or > High Risk [place] Fall Interventions : Adequate lighting, Assistive devices within reach, Bed in low position, Call device within reach, Hourly comfort/safety rounds, Non-slip footwear, Personal items within reach, Upper side-rails up, Wheels locked SHERLYN THOMPSON RN - 12/14/2018 6:23 EDT Fall Risk Education Grid Assistive Equipment Use : Verbalizes understanding Call light use : Verbalizes understanding Eyeglasses Use : Verbalizes understanding Nonskid Footwear Use : Verbalizes understanding Siderails use/risks : Verbalizes understanding SHERLYN THOMPSON RN - 12/14/2018 6:23 EDT Barriers to Learning : None evident Individuals Taught : Patient, Child Readiness to Learn : Cooperative Baseline Knowledge of Topic : Good Teaching Method : Printed materials Learning Style Preferences Family : Printed materials, Verbal explanation Learning Style Preferences Patient : Printed materials, Verbal explanation Teaching Evaluation : Verbalizes understanding SHERLYN THOMPSON RN - 12/14/2018 6:23 EDT Education Topics, Day of Surgery DayofSurgery Education Grid Anesthesia/Sedation : Verbalizes understanding Fall Risks : Verbalizes understanding Family Instructions : Verbalizes understanding IV's : Verbalizes understanding Medication Instructions : Verbalizes understanding Pain Management : Verbalizes understanding Responsible Adult : Verbalizes understanding SHERLYN THOMPSON RN - 12/14/2018 6:06 EDT Valuables and Belongings Valuables and Belongings : Clothing, Personal devices, Assistive devices, Respiratory devices Clothing : Common streetwear Clothing Disposition : With family Personal Device Disposition : With family Personal Devices : Glasses Assistive Devices From Home : Cane Assistive Device Disposition : With family Respiratory Devices : CPAP Respiratory Device Disposition : With family SHERLYN THOMPSON RN - 12/14/2018 6:23 EDT Pain Scale Intensity : 0 SHERLYN THOMPSON RN - 12/14/2018 6:23 EDT Image 4 - Images currently included in the form version of this document have not been included in the text rendition version of the form. Marcella Coma Marcella Best Motor Response : Obey commands [place] Best Verbal Response : Oriented Marcella Eye Opening Response : Spontaneous Marcella Coma Score : 15 SHERLYN THOMPSON RN - 12/14/2018 6:06 EDT Electronically signed by Marilou Freeman [facility] Conversion Telephone Lineworker Cerner at 08/18/2022 11:30 AM CDT documented in this encounter Plan of Treatment Not on file documented as of this encounter Visit Diagnoses Not on filedocumented in this encounter Care Teams Electrolytic De Scaler Relationship Specialty Start Date End Date Ferny Gentile [address] [place] [phone] PCP - General 05/22/22 documented as of this encounter
--- OUTSIDE RECORDS SUMMARY | 2024-11-14 14:50 | XMS_ITS | Encounter Summary ---
Author Organization [employer] ([place], [place], [place], [place]) Address [address] [place] [address] Care Team Providers Care Nuclear Equipment Operator Name Role Phone SeferinoSakinat Primary Care Provider [phone] Encounter Details Date Type Department Care Team (Late st Contact Info) Description 12/14/2018 Transcribed Document [facility] [place] [facility] [place] [address] ProviderArt MD [address] [place] [id number] Social History Tobacco Use Types Packs/Day [...] Conversion Note - Art ProviderMD - 12/14/2018 8:00 PM CDT Pain Assessment Entered On: 12/14/2018 22:53 EDT Performed On: 12/14/2018 22:04 EDT by Amos Robertson RN Intervention Information: traMADol Performed by Amos Robertson RN on 12/14/2018 21:04:00 EDT traMADol,50mg Oral Pain Assessment Pain Assessment : Follow-up assessment Pain Intervention, Drug : Medicated Pain Improved by Intervention : No Amos Robertson RN - 12/14/2018 22:52 EDT documented in this encounter Plan of Treatment Not on file documented as of this encounter Visit Diagnoses Not on filedocumented in this encounter Care Teams Nuclear Equipment Operator Relationship Specialty Start Date End Date Ferny Gentile [address] [place] [phone] PCP - General 05/22/22 documented as of this encounter
--- OUTSIDE RECORDS SUMMARY | 2024-11-14 14:50 | XMS_ITS | Referral Summary ---
Author Organization [employer] ([place], [place], [place], [place]) Address [address] [place] [address] Care Team Providers Care Township Supervisor Name Role Phone Sakina Gentilet Primary Care Provider [phone] Allergies Active Allergy Reactions Criticality Noted Date [...] oxide 400 mg magnesium Tab daily. Active ui-iia-cvsmfi- [id number]-mit- 27 0.5-30-60-90 mg Cap daily. Active cholecalcifero [...] on file 05/22 Educational Attainment Answer Date Alfreod rded Speak language other than Lebanese at home Not on file 05/22/2023 Want [...] 05/26/2022 10:27 AM EST Plan of Treatment Not on file Medical Devices Implanted Type Area Water Carter Device Identifier Shelf Expiration Date Model / Serial / Lot Cement Bone [place] Hv 40/20 600-15-000 - [id number] Implanted:Qty : 2 on 05/26/2022 by Eliseo Cuevas MD at [facility] IMPLANTS Left: Knee DJ SURG:ENCORE MED:BRIANTANOOGA 05/30/2023 600-15-00 0 / / [id number] Ty Tib I-Beam Fix Biomet 75mm [id number] - [id number] Implanted:Qty : 1 on 05/26/2022 by Eliseo Cuevas MD at [facility] TOTAL JOINT CONSTRUCT Left: Knee BIOMET 03/26/2032 [id number] / / [id number] Patella Std 8x31mm [id number] - [id number] Implanted:Qty : 1 on 05/26/2022 by Eliseo Cuevas MD at [facility] TOTAL JOINT CONSTRUCT Left: Knee BIOMET 03/12/2027 [id number] / / [id number] Comp Fem Ps Vangrd 65mm [id number] - [id number] Implanted:Qty : 1 on 05/26/2022 by Eliseo Cuevas MD at [facility] TOTAL JOINT CONSTRUCT Left: Knee BIOMET 10/13/2029 [id number] / / [id number] Insrt Tib Bear Ps 10x71/75 [id number] - [id number] Implanted:Qty : 1 on 05/26/2022 by Eliseo Cuevas MD at [facility] TOTAL JOINT CONSTRUCT Left: Knee BIOMET 11/07/2025 [id number] / / [id number] Insurance [place]IC[place] [address] [place] [address] Advance Directives For more information, please contact: [phone] * Full Code (Latest Code Status on File) Date Activated Date Inactivated Comments 05/26/2022 3:06 PM 05/29/2022 8:04 PM * Full Code Date Activated Date Inactivated Comments 05/26/2022 8:57 AM 05/26/2022 3:06 PM Care Teams Township Supervisor Relationship Specialty Start Date End Date Ferny Gentile [address] [place] [address] PCP - General 05/22/22
--- OUTSIDE RECORDS SUMMARY | 2024-11-14 14:50 | XMS_ITS | Encounter Summary ---
Author Organization [employer] ([place], [place], [place], [place]) Address [address] [place] [address] Care Team Providers Care Lead Java Developer Architect Name Role Phone Seferino Ferny Primary Care Provider [phone] Encounter Details Date Type Department Care Team (Late st Contact Info) Description 12/14/2018 Transcribed Document [facility] Family Medicine [facility] [place] [address] ProviderArt MD [address] [place] [address] Social History Tobacco Use Types Packs/Day [...] Conversion Note - Art ProviderMD - 12/14/2018 7:24 AM CDT Patient: UZAIR MADERA Age: 78 Years Sex: Female : 1940 Discharge Plan Ortho Discharge Summary Addendum Discharge: Home Procedure: Left ATHA Complications: None DVT Prophylaxis: resume home Warfarin dosing, Lovenox bridge x 4 doses WB Status: WBAT, USE WALKER FOR 2 WEEKS AND PROGRESS TO CANE TOLERATED WITH PT GUIDENCE. F/U in clinic 6 weeks Additional Instructions: Must walk with walker for 1st 2 weeks post op to decrease risk of post op femur fracture. Discharge Instructions: 1)Elevate the affected knee and the entire lower extremity on 2 or 3 pillows while sleeping at night for the first 6-8 weeks after surgery in order to help combat swelling in the lower extremities. 2) The patient may shower on the 3rd day after surgery but must keep the wound or dressing completely dry until 7 days postoperatively using glad press and seal. 3)The current dressing may be removed on the tenth day after surgery and the incision may remain uncovered if it is completely dry. 4) Call for wound drainage or excessive redness that is present beyond 10 days after surgery. 5) The patient may progress from a walker to crutches to a cane to no support at the discretion of the therapist after 2 weeks. The patient should not progress to the next level until they are walking without a limp at the previous level. 6) Tylenol, Oxycodone (assuming no allergy), Tramadol, and for severe pain Dilaudid will be used for post op pain. 7) Place pillow under operative thigh to keep hip flexed while sleeping. 8) The patient will be on blood thinner after surgery. Each patient's blood thinner may be different pending past medical history. It may be stopped at the discretion of the surgeon if wound problems develop. Bilateral NERIS hose are to be worn daily for DVT prophylaxis. You may remove these for daily skin inspections, but otherwise these are to be worn at all times. Do not start or stop anticoagulation without discussing with Dr. Cuevas first. Discharge Medications (14) Active Align 4 mg, Oral, Daily cetirizine 10 mg oral tablet 10 mg = 1 Tab, Oral, Daily citalopram 10 mg oral tablet 10 mg = 1 Tab, Oral, Daily ezetimibe 10 mg, Oral, At Bedtime flecainide 100 mg oral tablet 100 mg = 1 Tab, Oral, Q12H ipratropium 21 mcg/inh (0.03%) nasal spray 2 [place], Nasal, BID kynsol magnesium oxide 400 mg (240 mg elemental magnesium) oral tablet 400 mg = 1 Tab, Oral, Daily Metoprolol Succinate ER 25 mg oral tablet, extended release 12.5 mg = 0.5 Tab, Oral, Daily Myrbetriq 100 mg, Oral, Daily omeprazole 20 mg, Oral, At Bedtime Osteo Bi-Flex 2 Tab, Oral, Daily Vitamin D3 2,000 Int Units, Oral, Daily warfarin 7.5 mg oral tablet 7.5 mg = 1 Tab, Oral, Daily Worth 7.5/325mg 1-2 tabs PO Q6hrs PRN Dilaudid 2mg Q6hrs PRN (extreme pain only, this is not for management of pain but for rescue only) Tramadol 50mg 1 tab Q 6hrs PRN Lovenox 40mg SubQ daily x 4 doses Colace 100mg 1 tab daily Gabapentin 300mg 1 tab QHS Electronically signed by Marilou, [facility] Conversion Sales Center Associate Cerner at 08/18/2022 11:18 AM CDT documented in this encounter Plan of Treatment Not on file documented as of this encounter Visit Diagnoses Not on filedocumented in this encounter Care Teams Lead Java Developer Architect Relationship Specialty Start Date End Date Ferny Gentile [address] [place] [address] PCP - General 05/22/22 documented as of this encounter
--- OUTSIDE RECORDS SUMMARY | 2024-11-14 14:50 | XMS_ITS | Encounter Summary ---
Author Organization [employer] ([place], [place], [place], [place]) Address [address] [place] [address] Care Team Providers Care Sock Folder Name Role Phone SeferinoSakinat Primary Care Provider [phone] Encounter Details Date Type Department Care Team (Late st Contact Info) Description 12/14/2018 Transcribed Document [facility] Family Medicine [facility] [place] [address] ProviderArt MD [address] [place] [address] Social History Tobacco Use Types Packs/Day [...] Conversion Note - Art ProviderMD - 12/14/2018 2:52 PM CDT Final Discharge Planning Entered On: 12/14/2018 14:53 EDT Performed On: 12/14/2018 14:52 EDT by NICHOLE ARIZMENDI, Care Management-Robotics Application Engineer Final Discharge Planning Discharge Arrangements : Patient Post-Acute Information Patient Name: UZAIR MADERA Gender: Female : [birth year] Age: 78 Years No Post-Acute Placement(s) Listed No Post-Acute Service(s) Listed No Curaspan Referral(s) Listed Discharge To Care Management : Home Health Services (Related/SOC within 3 days)-06 NICHOLE ARIZMENDI, Care Management-Robotics Application Engineer - 12/14/2018 14:52 EDT Final Narrative Note Final Narrative Note : [facility], PT HAS HER OWN MACHINE TO CHEDK HER INR. SHE IS FOLLOWED BY CARDIOLOGY NICHOLE QUINTERO, Care Management-Robotics Application Engineer - 12/14/2018 14:52 EDT Electronically signed by Marilou [facility] Conversion Client Services Administrator Cerner at 08/18/2022 11:17 AM CDT documented in this encounter Plan of Treatment Not on file documented as of this encounter Visit Diagnoses Not on filedocumented in this encounter Care Teams Sock Folder Relationship Specialty Start Date End Date Freny Gentile [address] [place] [phone] PCP - General 05/22/22 documented as of this encounter
--- OUTSIDE RECORDS SUMMARY | 2024-11-14 14:50 | XMS_ITS | Encounter Summary ---
Author Organization [employer] ([place], [place], [place], [place]) Address [address] [place] [address] Care Team Providers Care Self Propelled Dredge Operator Name Role Phone Ferny Gentile Primary Care Provider Encounter Details Date Type Department Care Team (Late st Contact Info) Description 12/02/2018 Transcribed Document [facility] [place] [address] ProviderArt MD [address] [place] [address] Social History Tobacco Use Types Packs/Day Years Used Date Smoking Tobacco: Never Assessed Comments Unknown Sex and Gender Information Value Date Recorded Sex Assigned at Female 10/29/2021 6:07 PM CDT Legal Sex Female 6:07 PM CDT Gender Identity Female 10/29/2021 6:07 PM CDT Sexual Orientation Not on file documented as of this encounter Miscellaneous Notes * Cerner Conversion Note - Art Rodriguez MD - 12/02/2018 10:44 AM CDT Patient: UZAIR MADERA Age: 78 Years Sex: Female : 1940 Chief Complaint Left Hip Pain Primary Care Provider FERNY GENTILE MD History of Present Illness This patient is a pleasant 78 yo WF who presents with left hip pain. The pain has been going on for a year but has gotten progressively worse. She describes it as an ache. It is now to the point that it is affecting her ADLs. She has tried Tylenol and injections without relief of her pain. She has fallen. She has used a cane as an assistive device. She saw Dr Cuevas who evaluated her and determined that she has severe DJD affecting the left hip. Pt was offered a Left Total Hip Arthroplasty via Anterior Approach and agreed to the procedure. 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 She cannot remember how she was treated for this. No recurrence. No PE history. No trouble with anesthesia in the past. Pt has a h/o OSIRIS and wears CPAP. No asthma or COPD. Review of Systems Constitutional: Neg for fevers or chills. Eyes: Neg for blurry vision or change in vision. ENT: Neg for sore throat, ear pain, or dizziness. Cardiac: Neg for chest pain or dyspnea on exertion. Respiratory: Neg for shortness of breath. Gastrointestinal: Neg for nausea, vomiting, diarrhea, or constipation. Musculoskeletal: Pos for left hip pain. Neurologic: Neg for headaches or seizures. Psychiatric: Neg for anxiety and depression. Integumentary: Neg for rash. Vital Signs T: 36.4 ??C HR: 75(Peripheral) RR: 18 BP: 129/65 SpO2: 95% HT: 170.18 cm WT: 90.91 kg BMI: 31.4 Oxygen Settings (Last) Oxygen Therapy Mode: Room air (12/02/18 11:37:00) Physical Exam Constitutional: This is a pleasant 78 yo WF, BMI 31.4, in no acute distress. HEENT: Normocephalic, atraumatic. PEERLA. Extraocular muscles intact. Conjunctiva pink without exudate. Oropharynx pink and moist. Neck supple. No JVD. Cardiac: SI, S2. RRR. No M/R/G. Respiratory: Lungs CTA bilaterally. No wheezes, rales, or rhonchi. Abdomen: Soft, nontender, nondistended. Active bowel sounds. No visible masses. Musculoskeletal: Left Hip Flexion 105, ER 15, IR 10. Integumentary: Skin is pink, warm and dry. No rashes. Neurologic: CN II-XII grossly intact. Psychiatric: Judgment and affect appropriate. Assessment/Plan 1. Preoperative Evaluation- Pt underwent preoperative laboratory workup and diagnostic studies. This included a medical evaluation from her PCP who provided her with clearance to proceed with surgery. 2. Left Hip Pain secondary to DJD- Proceed with surgery as scheduled with Dr Cuevas on 12/14/2018. 3. Atrial Fib- S/p Ablation. Pt received cardiac clearance from [facility] Caballero. Coumadin on hold 5 days prior to surgery. Continue Flecainide and Metoprolol. 4. GERD- Continue Omeprazole. 5. Seasonal Allergies- Continue Cetirizine. 6. Hyperlipidemia- Continue Zetia. 7. Depression- Continue Citalopram. 8. Urinary Incontinence- Continue Myrbetriq. 9. H/o DVT- Postoperative anticoagulation per Dr Cuevas. 10. OSIRIS- Continue CPAP. 11. H/o Breast Cancer 1991- S/p Left Mastectomy with chemo. No radiation. Problem List/Past Medical History Ongoing Atrial fibrillation Breast cancer Cataracts, bilateral Gallstones Hyperlipidemia Osteoarthritis Seasonal allergies Sleep apnea Procedure/Surgical History EXCISION OF RIGHT PELVIC BONE, OPEN APPROACH (12/15/2017), FUSION LUM JT W INTBD FUS DEV, POST APPR A COL, OPEN (12/15/2017), breast reconstruction left, cardiac ablation 8-17, cataract removed Rt and Lt, darshana, hysterectomy S+O, left carpal tunell release, mastectomy left, Rt total knee replacement, tonsillectomy. Home Medications (14) Active Align 4 mg, Oral, Daily cetirizine 10 mg oral tablet 10 mg = 1 Tab, Oral, Daily citalopram 10 mg oral tablet 10 mg = 1 Tab, Oral, Daily ezetimibe 10 mg, Oral, At Bedtime flecainide 100 mg oral tablet 100 mg = 1 Tab, Oral, Q12H ipratropium 21 mcg/inh (0.03%) nasal spray 2 [place], Nasal, BID kynsol magnesium oxide 400 mg [...] 7.5 mg = 1 Tab, Oral, Daily Allergies Pravachol (Weakness) acetaminophen-oxyCODONE (headache, headache) sulfa drugs (Rash) Social History Alcohol Alcohol Use Frequency Socially. Family History Pt mother at 94 from CAD with Dementia and a h/o Colon Cancer. Pt father at 103 from Renal Failure. Diagnostic Results EKG- Sinus Rhythm, 71 CXR- NAD Lab Results Test Name Test Result Date/Time Sodium Level 139 mmol/L 12/02/2018 12:03 EDT Potassium Level 4.6 mmol/L 12/02/2018 12:03 EDT Chloride Level 107 mmol/L 12/02/2018 12:03 EDT Carbon Dioxide Level 26 mmol/L 12/02/2018 12:03 EDT Anion Gap 11 12/02/2018 12:03 EDT Glucose Level 98 mg/dL 12/02/2018 12:03 EDT Blood Urea Nitrogen 19 mg/dL 12/02/2018 12:03 EDT Creatinine Level 1.10 mg/dL (High) 12/02/2018 12:03 EDT eGFR 59 mL/min/1.73m2 (Low) 12/02/2018 12:03 EDT eGFR NonAfrican 48 mL/min/1.73m2 (Low) 12/02/2018 12:03 EDT Bun/Creatinine 17.3 12/02/2018 12:03 EDT Calcium Level 8.9 mg/dL 12/02/2018 12:03 EDT Protein Total 6.7 Gram/dL 12/02/2018 12:03 EDT Albumin Level 3.7 Gram/dL 12/02/2018 12:03 EDT Globulin 3.0 Gram/dL 12/02/2018 12:03 EDT A/G Ratio 1.2 12/02/2018 12:03 EDT Bilirubin Total 0.5 mg/dL 12/02/2018 12:03 EDT Alk Phos 75 Units/Liter 12/02/2018 12:03 EDT AST 17 Units/Liter 12/02/2018 12:03 EDT ALT 20 Units/Liter 12/02/2018 12:03 EDT Hgb A1C 5.60 % 12/02/2018 12:03 EDT eAVG Glucose 114 mg/dL 12/02/2018 12:03 EDT WBC 6.2 K/uL 12/02/2018 12:03 EDT RBC 4.29 Million/uL 12/02/2018 12:03 EDT Hgb 13.4 Gram/dL 12/02/2018 12:03 EDT Hct 40.0 % 12/02/2018 12:03 EDT MCV 93.2 fL 12/02/2018 12:03 EDT MCH 31.2 pg 12/02/2018 12:03 EDT MCHC 33.5 Gram/dL 12/02/2018 12:03 EDT Platelet Count 235 K/uL 12/02/2018 12:03 EDT MPV 9.6 fL 12/02/2018 12:03 EDT RDW 13.3 % 12/02/2018 12:03 EDT Neut % 58.5 % 12/02/2018 12:03 EDT Neut # 3.64 K/uL 12/02/2018 12:03 EDT Lymph % 22.4 % 12/02/2018 12:03 EDT Lymph # 1.40 K/uL 12/02/2018 12:03 EDT [place] % 17.1 % (High) 12/02/2018 12:03 EDT [place] # 1.07 K/uL (High) 12/02/2018 12:03 EDT Eos % 1.1 % 12/02/2018 12:03 EDT Eos # 0.07 K/uL 12/02/2018 12:03 EDT Baso % 0.3 % 12/02/2018 12:03 EDT Baso # 0.02 K/uL 12/02/2018 12:03 EDT Slide Review No 12/02/2018 12:03 EDT IG# 0 x10(3)/uL 12/02/2018 12:03 EDT IG% 1 % 12/02/2018 12:03 EDT PT 26.7 Second(s) (High) 12/02/2018 12:03 EDT INR 2.8 (High) 12/02/2018 12:03 EDT PTT 46.0 Second(s) (High) 12/02/2018 12:03 EDT Urine Type. U CleanCatch 12/02/2018 12:03 EDT Urine Color YELLOW2 12/02/2018 12:03 EDT Urine Appearance CLEAR2 12/02/2018 12:03 EDT Urine Specific [place] 1.013 12/02/2018 12:03 EDT Urine pH Dipstick 6.0 12/02/2018 12:03 EDT Urine Leukocyte Esterase MODERATE2 (Abnormal) 12/02/2018 12:03 EDT Urine Nitrite POSITIVE2 (Abnormal) 12/02/2018 12:03 EDT Urine Protein Dipstick NEGATIVE2 12/02/2018 12:03 EDT Urine Glucose Dipstick NEGATIVE2 12/02/2018 12:03 EDT Urine Ketones Dipstick NEGATIVE2 12/02/2018 12:03 EDT Urine Urobilinogen Dipstick 0.2 12/02/2018 12:03 EDT Urine Bilirubin Dipstick NEGATIVE2 12/02/2018 12:03 EDT Urine Blood Dipstick SMALL2 (Abnormal) 12/02/2018 12:03 EDT Ur RBC 2-5 (Abnormal) 12/02/2018 12:03 EDT Ur WBC 50-100 (Abnormal) 12/02/2018 12:03 EDT Ur Bacteria 4+ (Abnormal) 12/02/2018 12:03 EDT Ur Epithelial Cells 0-2 (Abnormal) 12/02/2018 12:03 EDT Prealbumin 26.7 mg/dL 12/02/2018 12:03 EDT Repeat UA- Neg nitrites, neg LE Electronically signed by Interface, [facility] Conversion Excel Expert Cerner at 08/18/2022 11:07 AM CDT documented in this encounter Plan of Treatment Not on file documented as of this encounter Visit Diagnoses Not on filedocumented in this encounter Care Teams Self Propelled Dredge Operator Relationship Specialty Start Date End Date SeferinoSakinat [address] [place] [address] PCP - General 05/22/22 documented as of this encounter
--- OUTSIDE RECORDS SUMMARY | 2024-11-14 14:50 | XMS_ITS | Encounter Summary ---
Author Organization [employer] ([place], [place], [place], [place]) Address [address] [place] [address] Care Team Providers Care Assistant Plant Control Operator Name Role Phone Ferny Gentile Primary Care Provider [phone] Encounter Details Date Type Department Care Team (Late st Contact Info) Description 12/15/2018 Transcribed Document [facility] Family Medicine [place] [address] ProviderArt MD [address] [place] [address] Social History Tobacco Use Types Packs/Day [...] Cerner Conversion Note - Historical ProviderMD - 12/15/2018 2:00 AM CDT Sprinkler Irrigation Equipment Mechanic Details Entered On: 12/15/2018 1:35 EDT Performed On: 12/15/2018 2:00 EDT by Amos Robertson RN Order Details Transport Mode Order Detail : Wheelchair Isolation Precautions Order Detail : Standard Precautions Order Detail : N/A IV Order Detail : 1 Oxygen Order Detail : 0 Nurse Collect Order Detail : 0 Lift/Transfer : Moderate assist Central Line Order Detail : No Room Service : Appropriate Arterial Line : No Amos Robertson RN - 12/15/2018 1:35 EDT documented in this encounter Plan of Treatment Not on file documented as of this encounter Visit Diagnoses Not on filedocumented in this encounter Care Teams Assistant Plant Control Operator Relationship Specialty Start Date End Date Ferny Gentile [address] [place] [address] PCP - General 05/22/22 documented as of this encounter
--- OUTSIDE RECORDS SUMMARY | 2024-11-14 14:50 | XMS_ITS | Encounter Summary ---
Author Organization [employer] ([place], [place], [place], [place]) Address [address] [place] [address] Care Team Providers Care Market Development Analyst Name Role Phone SeferinoSakinat Primary Care Provider [phone] Encounter Details Date Type Department Care Team (Late st Contact Info) Description 12/14/2018 Transcribed Document [facility] [place] Family [place] [address] ProviderArt MD [address] [place] [address] Social History Tobacco Use Types Packs/Day [...] Conversion Note - Art ProviderMD - 12/14/2018 2:53 PM CDT On Going Discharge Planning Entered On: 12/14/2018 14:53 EDT Performed On: 12/14/2018 14:53 EDT by NICHOLE ARIZMENDI Care Management-Newspaper Managing Editor Care Management Progress Note Discharge Arrangements : Patient Post-Acute Information Patient Name: UZAIR MADERA Gender: Female : [birth year] Age: 78 Years No Post-Acute Placement(s) Listed No Post-Acute Service(s) Listed No Curaspan Referral(s) Listed Discharge Options Discussed with Patient : Home Health Designation of Choice Signed : Yes Patient Offered Choice/Affiliations Explained : Yes List/Info Provided Pt/Fam/Support Person : Durable medical equipment, Home care Were Referrals Sent to Post Acute Providers : Yes Is the Patient Meeting Medical Necessity : Yes NICHOLE ARIZMENDI, Care Management-Newspaper Managing Editor - 12/14/2018 14:53 EDT Electronically signed by Marilou [facility] Conversion Typewriter Repairer Cerner at 08/18/2022 11:26 AM CDT documented in this encounter Plan of Treatment Not on file documented as of this encounter Visit Diagnoses Not on filedocumented in this encounter Care Teams Market Development Analyst Relationship Specialty Start Date End Date Ferny Gentile [address] [place] [address] PCP - General 05/22/22 documented as of this encounter
--- OUTSIDE RECORDS SUMMARY | 2024-11-14 14:50 | XMS_ITS | Clinical Summary ---
Author Organization [facility] Address [address] [place] [address] Care Team Providers Care Sericulturist Name Role Phone Ferny Gentile MD Primary Care Provider [phone] Family History Medical History Relation Name Comments COPD Father Prostate cancer Father COPD Mother Colon cancer Mother Parkinson Disease Mother Relation Name Status Comments Father Mother Social History Tobacco Use Types Packs/Day Years Used Date Smoking Tobacco: Never Comments Unknown Sex and Gender Information Value Date Recorded Sex Assigned at Not on file Legal Sex Female 7:36 PM EDT Gender Identity Not on file Sexual Orientation Not on file Last Filed Vital Signs Vital Sign Reading Time Taken Comments Blood Pressure - - Pulse - - Temperature - - Respiratory Rate - - Oxygen Saturation - - Inhaled Oxygen Concentration - - Weight 83 kg (183 lb 0.1 oz) 10/16/2016 11:29 AM EDT Height 172.7 cm (5' 8 ) 10/16/2016 11:29 AM EDT Body Mass Index 27.83 10/16/2016 11:29 AM EDT Plan of Treatment Not on file Care Teams Sericulturist Relationship Specialty Start Date End Date Ferny Gentile MD [address] [facility] [address] [place] [address] PCP - General 09/14/20
--- OUTSIDE RECORDS SUMMARY | 2024-11-14 14:50 | XMS_ITS | Encounter Summary ---
Author Organization [employer] ([place], [place], [place], [place]) Address [address] [place] [address] Care Team Providers Care Mobile Sales Consultant Name Role Phone Seferino Ferny Primary Care Provider [phone] Encounter Details Date Type Department Care Team (Late st Contact Info) Description 12/15/2018 Transcribed Document [facility] [place] Family [place] [address] ProviderArt MD [address] [place] [address] Social History Tobacco Use Types Packs/Day [...] Conversion Note - Art ProviderMD - 12/15/2018 4:49 AM CDT Event Note Entered On: 12/15/2018 4:50 EDT Performed On: 12/15/2018 4:49 EDT by Amos Robertson RN Event Note Event Date/Time : 12/15/2018 4:45 EDT Event Location : Assigned room Event Details : Nursing assessment additional narrative Description of Event : Patient needed to use restroom. Patient experienced dizziness. Charge assisted me with getting a bedside commode. Amos Robertson RN - 12/15/2018 4:49 EDT documented in this encounter Plan of Treatment Not on file documented as of this encounter Visit Diagnoses Not on filedocumented in this encounter Care Teams Mobile Sales Consultant Relationship Specialty Start Date End Date Ferny Gentile [address] [place] [address] PCP - General 05/22/22 documented as of this encounter
--- OUTSIDE RECORDS SUMMARY | 2024-11-14 14:50 | XMS_ITS | Encounter Summary ---
Author Organization [employer] ([place], [place], [place], [place]) Address [address] [place] [address] Care Team Providers Care Gas Appliance Servicer Helper Name Role Phone Seferino Ferny Primary Care Provider [phone] Encounter Details Date Type Department Care Team (Late st Contact Info) Description 12/15/2018 Transcribed Document [facility] [place] Family Medicine [address] [place] [address] ProviderArt MD [address] [place] [id number] Social History Tobacco Use Types Packs/Day Years [...] Conversion Note - Historical ProviderMD - 12/15/2018 11:15 AM CDT Discharge Summary, PT Entered On: 12/15/2018 13:01 EDT Performed On: 12/15/2018 11:15 EDT by SAFIA BURGOS PTA Discharge Summary Discharge Summary Provider Notified : Physical Therapy SAFIA BURGOS PTA - 12/15/2018 12:59 EDT Reason for Discharge : Discharged from hospital, All goals met, Discharge order LEISA MARROQUIN, PT - 12/15/2018 14:44 EDT Discharged to, Therapy : Home, with home health Discharge Equipment, PT : Belt, gait SAFIA BURGOS PTA - 12/15/2018 12:59 EDT Discharge Summary Comment, PT : Met 4/4 acute care goals. CGA with transfers; min assist with bed mobility. Gait training 100' SBA/CGA with RWx. Reciprocal gait pattern. Ascended/descended 1 platform step CGA with RWx safely and correctly as well as 4 stairs CGA with bilateral handrails. Left LE ther ex sitting/supine on mat table x 25 AROM. Independent with HEP that was given and reviewed. Will continue to benefit from skilled physical therapy at home with home health. I have read and reviewed this discharge summary and I concur. Leisa Marroquin, PT LEISA MARROQUIN, PT - 12/15/2018 14:44 EDT Electronically signed by Marilou [facility] Conversion Retail Store Associate Cerner at 08/18/2022 11:11 AM CDT documented in this encounter Plan of Treatment Not on file documented as of this encounter Visit Diagnoses Not on filedocumented in this encounter Care Teams Gas Appliance Servicer Helper Relationship Specialty Start Date End Date Seferino Ferny [address] [place] [address] PCP - General 05/22/22 documented as of this encounter
--- OUTSIDE RECORDS SUMMARY | 2024-11-14 14:50 | XMS_ITS | Encounter Summary ---
Author Organization [employer] ([place], [place], [place], [place]) Address [address] [place] [address] Care Team Providers Care Toxicologist Name Role Phone Ferny Gentile Primary Care Provider [phone] Encounter Details Date Type Department Care Team (Late st Contact Info) Description 12/14/2018 Transcribed Document [facility] [place] Family Medicine [facility] [place] [address] ProviderArt MD [address] [place] [address] Social History Tobacco Use Types Packs/Day [...] Conversion Note - Art ProviderMD - 12/14/2018 10:10 AM CDT Evaluation, Physical Therapy Entered On: 12/14/2018 11:29 EDT Performed On: 12/14/2018 11:03 EDT by NIA MARROQUIN, PT General Information, PT Visit Type, PT : Initial evaluation Patient Orders : Order Date Order Ordering 12/14/2018 10:12 PT Evaluation and Treatment Ordered By: MATTHEW BANEGAS MD-ORT 12/14/2018 10:12 PT Treatment Instructions Ordered By: MATTHEW BANEGAS MD-ORT 12/14/2018 10:12 PT Treatment Instructions Ordered By: MATTHEW BANEGAS MD-ORT 12/14/2018 10:12 PT Treatment Instructions Ordered By: MATTHEW BANEGAS MD-ORTheo 12/14/2018 10:12 PT Treatment Instructions Ordered By: MATTHEW BANEGAS MD-ORTheo 12/14/2018 10:12 PT Treatment Instructions Ordered By: MATTHEW BANEGAS MD-ORTheo Active Diagnoses : No Qualifying Diagnoses Therapy Diagnosis, PT : aftercare following LTHA-anterior Admission Date : 12/14/2018 04:48 Assisted by, PT : Occupational Therapist Personal Devices : Personal Devices Glasses Assistive Devices : Assistive Devices Marquese NIA MARROQUIN, PT - 12/14/2018 11:16 EDT General Status Patient Received Status : Supine in bed, Bed alarm activated Treatment Start Time : 12/14/2018 10:58 EDT Patient Left Status : Up in chair, Chair alarm activated, RN/PCT informed, Family/Visitors at bedside, Communication board completed, All needs met and within reach RN/PCT Informed Comment : Yes, RN approved pt for PT eval and pt agreeable Treatment End Time : 12/14/2018 11:30 EDT Treatment Time : 32 Minute(s) NIA MARROQUIN, PT - 12/14/2018 11:16 EDT History and Environment Living Situation, Therapy : Home Patient Lives With : Alone Persons Assisting Patient at Home : Child/Children Professional Skilled Services : None Persons Providing Information : Patient, Caregiver(s) Home Equipment Therapy, PT : Commode, Shower Equipment, Walker Home Setup : One story Stairs : Yes Stair Location(s) : Outside Outside Stairs, Number of Steps : 2 Outside Stairs Comment : 2 standard steps and 1 platform Railing Outside : Yes Outside Railing Position : Bilateral NIA MARROQUIN, PT - 12/14/2018 11:16 EDT Prior Level of Function PT GRID Prior LOF Ambulation, Household : Independent Prior LOF Ambulation, Community : Independent Prior LOF Bed Mobility : Independent Prior LOF Toileting : Independent Prior LOF Transfer : Independent NIA MARRQOUIN, PT - 12/14/2018 11:16 EDT Upper Extremity Upper Extremity Dominance : Right Right UE Active ROM : WFL Right UE Strength : WFL Left UE Active ROM : WFL Left UE Strength : WFL NIA MARROQUIN, PT - 12/14/2018 11:16 EDT Lower Extremity RLE Active ROM : WFL Right LE Strength : WFL LLE Active ROM : Impaired Left LE Strength : Impaired Lower Extremity Comment : LLE is impaired secondary to surgery 3+/5 grossly assessed RLE is WFL's NIA MARROQUIN, PT - 12/14/2018 11:16 EDT Functional Mobility Mobility Grid Bed Scooting : Supervision/set-up Supine to Sit : Supervision/set-up Sit to Stand : Rehab Minimal assistance Bed to Chair : Rehab Minimal assistance Stand to Sit : Rehab Minimal assistance NIA MARROQUIN, PT - 12/14/2018 11:16 EDT Gait Training/Assessment, PT Weight Bearing Status : As tolerated Gait Assistance Level : Assist, minimal Walking Distance : 9 steps to recliner with RWX, min assist x1, WBAT. verbal cues for correct gait sequence and for safety. Pt became dizzy and needed to sit Ambulatory Devices : Gait belt, Walker, front wheel Gait Deviations : Yes Gait Training Comment : see above Stair(s) Ascend/Descend Training : No NIA MARROQUIN, PT - 12/14/2018 11:16 EDT Neuromuscular Reeducation, PT Balance Comment : good sitting and standing NIA MARROQUIN, PT - 12/14/2018 11:16 EDT Neurological/Sensory Overall Sensory Response : Intact Light Touch Response : Intact NIA MARROQUIN, PT - 12/14/2018 11:16 EDT Activity Tolerance, PT Activity Comment : fair NIA MARROQUIN, PT - 12/14/2018 11:16 EDT Cognition Assessment, PT Orientation : Oriented x 4 Attention Assessment : Present NIA MARROQUIN, PT - 12/14/2018 11:16 EDT Edu Topics Physical Therapy Education Grid Bed Mobility Training : Verbalizes understanding, Returns demonstration Gait Training : Verbalizes understanding, Returns demonstration, Needs further teaching Safety : Needs further teaching Transfer Training : Verbalizes understanding, Returns demonstration, Needs further teaching Use of Assistive Device : Verbalizes understanding, Returns demonstration, Needs further teaching NIA MARROQUIN, PT - 12/14/2018 11:16 EDT Indication Assesessment, PT Physical Therapy Indicated : Yes Interdisciplinary Consultation(s) Needed : Yes Interdisciplinary Consult : Occupational Therapy PT Problem List : Impaired, bed mobility, Impaired, gait, Impaired, stair mobility, Impaired, strength, Impaired, transfers Potential Barriers To Therapy : Acuity of Illness Rehabilitation Potential : Good NIA MARROQUIN, PT - 12/14/2018 11:16 EDT Plan of Care, PT PT Tx Plan/Goals Established w Patient : Yes PT Frequency Rehab : Daily, twice (bid) Other PT Treatment Provided This Date : gait as per note ther act PT Duration Rehab : Three days PT Treatments Planned : Bed mobility training, Gait training, Safety education, Stair training, Therapeutic exercises, Transfer training Plan of Care Comment, PT : Pt will be seen twice daily for PT treatment which may include training in transfers, bed mobility, gait, stairs, use of AD, balance training, therapeutic exercise, HEP instruction and pt education on safety precautions NIA MARROQUIN, PT - 12/14/2018 11:16 EDT Agile Business Analyst Goals Other PT LTG Grid Goal #1 Goal #2 Goal #3 Goal #4 Other : Pt will be able to ambulate 100 feet or greater with RWX, min assist x1 in order for her to safely navigate her home Pt will be able to ascend and descend 2 steps with bilateral rails and min assist x1 in order for her to safely gain entry into her home Pt will be able to ascend and descend a platform step with RWX, min assist x1 in order for her to safely gain entry into her home Pt will participate in therapeutic exercise training and be issued a written HEP in order to increase strength for improved gait and provide carryover into the home environment Date to Meet : 12/19/2018 EDT 12/19/2018 EDT 12/19/2018 EDT 12/19/2018 EDT Goal Status : Initial goal Initial goal Initial goal Initial goal NIA MARROQUIN, PT - 12/14/2018 11:16 EDT NIA MARROQUIN, PT - 12/14/2018 11:16 EDT NIA MARROQUIN, PT - 12/14/2018 11:16 EDT NIA MARROQUIN, PT - 12/14/2018 11:16 EDT Treatment Note Subjective Comment : agreeable Patient's Response to Treatment : good Additional Objective Information : eval gait as per note PT assisted pt to the bathroom and remained with pt in the bathroom to supervise pt for safety with bathroom transfers, dynamic standing balance, assistance with clothing and supervision with mobility in tight confines of pt restroom Pt completed 10 reps each of ankle pumps, quad sets and gluteal sets for anti-embolism purposes per MD orders and pt instructed to perform these exercises 2-3X per hour when awake PT educated pt and family on progression of PT activities and MD expectations Assessment : Pt would benefit from continued skilled PT services in the acute care setting to improve her level of mobility and assist her to return to her PLOF Plan for Treatment : continue per eval POC NIA MARROQUIN, PT - 12/14/2018 11:16 EDT Pain Assessment Pain Scaled Used : 0-10 Pain scale Pain Score Pre-Intervention : 0 Pain Score Post-Intervention. : 0 NIA MARROQUIN, PT - 12/14/2018 11:16 EDT Image 1 - Images currently included in the form version of this document have not been included in the text rendition version of the form. Anticipated Discharge Needs, OT/PT Anticipated Discharge to : Other: to be determined pending pt's progress toward goals NIA MARROQUIN, PT - 12/14/2018 11:[address] [facility] PT Charges PT Ther Activities Ea 15 Min : 1 Gait Training Each 15 Min : 1 PT Eval Low Complexity : 1 NIA MARROQUIN, PT - 12/14/2018 11:16 EDT documented in this encounter Plan of Treatment Not on file documented as of this encounter Visit Diagnoses Not on filedocumented in this encounter Care Teams Toxicologist Relationship Specialty Start Date End Date Seferino Ferny [address] [place] [address] PCP - General 05/22/22 documented as of this encounter
--- OUTSIDE RECORDS SUMMARY | 2024-11-14 14:50 | XMS_ITS | Encounter Summary ---
Author Organization [employer] ([place], [place], [place], [place]) Address [address] [place] [address] Care Team Providers Care Sort Supervisor Name Role Phone SeferinoSakinat Primary Care Provider [phone] Encounter Details Date Type Department Care Team (Late st Contact Info) Description 12/14/2018 Transcribed Document [facility] [place] Family Medicine [facility] [place] [address] ProviderArt MD [address] [place] [address] Social History Tobacco Use Types Packs/Day [...] Conversion Note - Art ProviderMD - 12/14/2018 6:13 AM CDT Pediatric Growth Entered On: 12/14/2018 6:13 EDT Performed On: 12/14/2018 6:13 EDT by Ana Overton Patient Robotic Machine Operator Height and Weight, Clinical Dosing Height Source : Stated Height Entry Format : [place] Height, Feet : 5 ft(Converted to: 152 cm, 60 Inch) Height, Inches : 7 Inch(Converted to: 0 ft 7 Inch, 17.78 cm) Clinical Height : 170.18 cm Weight Source : Standing scale Weight Entry Format : [place] Clinical Dosing Weight : 90.91 kg Weight, Pounds : 200 lb Body Surface Area (BSA) : 2.02 m2 Body Mass Index : 31.4 kg/m2 ([place]) [place] Body Weight : 61 kg Ana Overton, Patient Robotic Machine Operator - 12/14/2018 6:13 EDT documented in this encounter Plan of Treatment Not on file documented as of this encounter Visit Diagnoses Not on filedocumented in this encounter Care Teams Sort Supervisor Relationship Specialty Start Date End Date Ferny Gentile [address] [place] [id number] PCP - General 05/22/22 documented as of this encounter
--- OUTSIDE RECORDS SUMMARY | 2024-11-14 14:50 | XMS_ITS | Encounter Summary ---
Author Organization [employer] ([place], [place], [place], [place]) Address [address] [place] [address] Care Team Providers Care Chargemaster Analyst Name Role Phone SeferinoSakinat Primary Care Provider [phone] Encounter Details Date Type Department Care Team (Late st Contact Info) Description 12/14/2018 Transcribed Document [facility] [place] Family Medicine [facility] [place] [address] ProviderArt MD [address] [place] [address] Social History Tobacco Use Types Packs/Day [...] Conversion Note - Art ProviderMD - 12/14/2018 11:29 AM CDT Treatment Intervention, PT Entered On: 12/15/2018 12:59 EDT Performed On: 12/15/2018 11:14 EDT by SAFIA BURGOS PTA General Information, PT Visit Type, PT : Treatment Note Patient Orders : Order [...] Instructions Ordered By: MATTHEW BANEGAS MD-ORTheo 12/14/2018 11:29 PT Additional Treatment Ordered By: NIA MARROQUIN, PT Active Diagnoses : 12/15/2018 12:00 Pain in unspecified hip Therapy Diagnosis, PT : Aftercare following a Left Anterior RADHA Admission Date : 12/14/2018 04:48 Personal Devices : Personal Devices Glasses Assistive Devices : Assistive Devices Cane Precautions in Place : Fall prevention measures SAFIA BURGOS [facility] - 12/15/2018 12:46 EDT General Status Patient Received Status : Up in chair, Chair alarm activated, Other: SCDs, needs in reach Treatment Start Time : 12/15/2018 10:30 EDT Patient Left Status : Up in chair, Chair alarm activated, RN/PCT informed, All needs met and within reach, Other: SCDs RN/PCT Informed Comment : RN agreed to physical therapy Treatment End Time : 12/15/2018 11:14 EDT Treatment Time : 44 Minute(s) SAFIA BURGOS [facility] - 12/15/2018 12:46 EDT Edu Topics Physical Therapy Education Grid Gait Training : Verbalizes understanding, Returns demonstration Stair Training : Verbalizes understanding, Returns demonstration Therapeutic Exercises : Returns demonstration, Verbalizes understanding SAFIA BURGOS PTA - 12/15/2018 12:46 EDT Plan of Care, PT PT Tx Plan/Goals Established w Patient : Yes SAFIA BURGOS [facility] - 12/15/2018 12:46 EDT Skiver Machine Goals Other PT LTG Grid Goal #1 [...] 12/19/2018 EDT 12/19/2018 EDT Goal Status : Goal met Goal met Goal met Goal met Date Met : 12/14/2018 EDT 12/15/2018 EDT 12/15/2018 EDT 12/15/2018 EDT SAFIA BURGOS, [employer] - 12/15/2018 12:46 EDT SAFIA BURGOSBARBIE - 12/15/2018 12:46 EDT SAFIA BURGOS, [employer] - 12/15/2018 12:46 EDT SAFIA BURGOS, PACKAGING SALES - 12/15/2018 12:46 EDT Treatment Note Subjective Comment : Pateint agreed to physical therapy. Patient's Response to Treatment : No adverse reactions to therapy today. Additional Objective Information : CGA with transfers; min assist with bed mobility. Gait training 100' SBA/CGA with RWx. Reciprocal gait pattern. Ascended/descended 1 platform step CGA with RWx safely and correctly as well as 4 stairs CGA with bilateral handrails. (8 minutes). Left LE ther ex sitting/supine on mat table x 25 AROM (knee flexion with skate board, long arc quads, ankle pumps, quad sets, gluteal squeezes, short arc quads, heel slides - AAROM, hamstring sets). (36 minutes). Independent with HEP that was given and reviewed. Assessment : Met LTG #2, #3, and #4 Plan for Treatment : All goals met. Anticipated d/c home today. SAFIA BURGOSBARBIE - 12/15/2018 12:46 EDT Pain Assessment Pain Comment : 12/11 pain in left hip. Patient agreed to being pre-medicated prior to therapy. SAFIA BURGOSBARBIE - 12/15/2018 12:46 EDT Image 1 - Images currently included in the form version of this document have not been included in the text rendition version of the form. [place] PT Charges PT Therap. Exercise 15 min : 2 Gait Training Each 15 Min : 1 SAFIA BURGOSBARBIE - 12/15/2018 12:46 EDT documented in this encounter Plan of Treatment Not on file documented as of this encounter Visit Diagnoses Not on filedocumented in this encounter Care Teams Chargemaster Analyst Relationship Specialty Start Date End Date Ferny Gentile [address] [place] [address] PCP - General 05/22/22 documented as of this encounter
--- OUTSIDE RECORDS SUMMARY | 2024-11-14 14:50 | XMS_ITS | Encounter Summary ---
Author Organization [employer] ([place], [place], [place], [place]) Address [address] [place] [address] Care Team Providers Care Tank Terminal Gauger Name Role Phone Ferny Gentile Primary Care Provider [phone] Encounter Details Date Type Department Care Team (Late st Contact Info) Description 12/14/2018 Transcribed Document [facility] [place] [address] [place] [address] ProviderArt MD [address] [place] [address] Social History Tobacco Use Types Packs/Day [...] Conversion Note - Historical ProviderMD - 12/14/2018 12:58 PM CDT Patient: UZAIR MADERA Age: 78 years Sex: Female : 1940 Associated Diagnoses: None Author: MARIELLA DOBBS MD History of Present Illness This patient [...] asthma or COPD. Review of Systems Constitutional: No fever, No chills, No weakness. Eye: No visual disturbances. Ear/Nose/Mouth/Throat: No sore throat. Respiratory: No shortness of breath. Cardiovascular: No chest pain. Gastrointestinal: No nausea. Genitourinary: No dysuria. Hematology/Lymphatics: Bleeding tendency. Endocrine: No cold intolerance. Immunologic: No malaise. Musculoskeletal: No back pain. Integumentary: No rash. Neurologic: Alert and oriented X4. Psychiatric: No anxiety. Health Status Allergies: Allergies (2) Active Reaction Pravachol Weakness sulfa drugs Rash Current medications: Home Medications (14) Active Align 4 mg, Oral, Daily cetirizine 10 mg oral tablet 10 mg = 1 Tab, Oral, Daily citalopram 10 mg oral tablet 10 mg = 1 Tab, Oral, Daily ezetimibe 10 mg, Oral, At Bedtime flecainide 100 mg oral tablet 100 mg = 1 Tab, Oral, Q12H ipratropium 42 mcg/inh (0.06%) nasal spray 2 [place], Nasal, BID Konsyl , Oral, Daily magnesium oxide 400 mg (240 mg elemental magnesium) oral tablet 400 mg = 1 Tab, Oral, Daily Metoprolol Succinate ER 25 mg oral tablet, extended release 12.5 mg = 0.5 Tab, Oral, Daily Myrbetriq 50 mg oral tablet, extended release 50 mg = 1 Tab, Oral, Daily omeprazole 20 mg, Oral, At Bedtime Osteo Bi-Flex 2 Tab, Oral, Daily Vitamin D3 2,000 Int Units, Oral, Daily warfarin 5 mg oral tablet 7.5 mg = 1.5 Tab, Oral, Daily Problem list: Active Problems (10) Atrial fibrillation Breast cancer Cataracts, bilateral DVT (deep venous thrombosis) Gallstones History of obstructive sleep apnea Hyperlipidemia Osteoarthritis Seasonal allergies Sleep apnea Histories Family History: No family history items have been selected or recorded., htn Procedure history: hysterectomy S+O. mastectomy left. breast reconstruction left. cardiac ablation 8-17. left carpal tunell release. darshana. cataract removed Rt and Lt. Rt total knee replacement. tonsillectomy. Social History Social & Psychosocial Habits Alcohol 12/15/2017 Alcohol Use Frequency Socially 12/02/2018 Alcohol Use History, Social Habits Yes Alcohol Use Frequency Rarely Substance Abuse 12/02/2018 Recreational Drug Use History No Tobacco 12/02/2018 Smoking Status Never (less than 100 in l Smokeless Tobacco Status Never . Physical Examination VS/Measurements Vitals Signs (last 24 hrs) Last Charted Minimum Maximum Temp 97.8 (DEC 14 11:00) 97.8 (DEC 14 11:00) 97.9 (DEC 14:14) Apical HR 74 (DEC 14:14) 74 (DEC 14:14) 74 (DEC 14:14) Mon HR 77 (DEC 14 10:05) 77 (DEC 14 10:05) 90 (DEC 14 09:35) Resp Rate L 13 (DEC 14 10:05) L 13 (DEC 14 10:05) H 23 (DEC 14 09:45) SBP 138 (DEC 14 10:05) L 86 (DEC 14 09:40) H 148 (DEC 14 06:14) DBP 60 (DEC 14 10:05) L 59 (DEC 14 09:35) 77 (DEC 14 06:14) SpO2 94 (DEC 14 10:05) 94 (DEC 14 10:05) 98 (DEC 14 09:35) General: Alert and oriented, No acute distress. Eye: Pupils are equal, round and reactive to light, Extraocular movements are intact. HENT: Normocephalic, Normal hearing, Oral mucosa is moist. Neck: Supple, Non-tender, No jugular venous distention. Respiratory: Lungs are clear to auscultation. Cardiovascular: Normal rate, Regular rhythm, No murmur, Good pulses equal in all extremities, No edema. Gastrointestinal: Soft, Non-tender, Non-distended, Normal bowel sounds. Genitourinary: No costovertebral angle tenderness. Musculoskeletal: Normal range of motion. Integumentary: Warm, Dry, Intact, No pallor. Neurologic: Alert, Oriented, No focal deficits. Psychiatric: Cooperative, Appropriate mood & affect. left hip in dressing Review / Management Results review: Labs (Last four charted values) WBC 6.2 (DEC 02) HB 13.1 (DEC 14) 13.4 (DEC 02) HCT 40.0 (DEC 14) 40.0 (DEC 02) Plt 235 (DEC 02) Na 139 (DEC 02) K 4.6 (DEC 02) Cl 107 (DEC 02) CO2 26 (DEC 02) BUN 19 (DEC 02) Cr H 1.10 (DEC 02) Glu R 98 (DEC 02) Ca 8.9 (DEC 02) PT 10.7 (DEC 14) H 26.7 (DEC 02) INR 1.0 (DEC 14) H 2.8 (DEC 02) PTT 28.8 (DEC 14) H 46.0 (DEC 02) AST 17 (DEC 02) ALT 20 (DEC 02) ALK P 75 (DEC 02) T Bili 0.5 (DEC 02) PTN 6.7 (DEC 02) ALB 3.7 (DEC 02) , No qualifying data available. Radiology results No Radiology Results Found Impression and Plan 1. Procedures Hip Total Anterior Approach (Checked In) 12/14/2018 07:30 PAT for Surgery (Checked In) 12/02/2018 11:00 2. 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 No radiation. TIME SPENT 45 MINUTES documented in this encounter Plan of Treatment Not on file documented as of this encounter Visit Diagnoses Not on filedocumented in this encounter Care Teams Tank Terminal Gauger Relationship Specialty Start Date End Date Ferny Gentile [address] [place] [address] PCP - General 05/22/22 documented as of this encounter
--- OUTSIDE RECORDS SUMMARY | 2024-11-14 14:50 | XMS_ITS | Encounter Summary ---
Author Organization [employer] ([place], [place], [place], [place]) Address [address] [place] [address] Care Team Providers Care Director Physical Therapy Name Role Phone Ferny Gentile Primary Care Provider [phone] Encounter Details Date Type Department Care Team (Late st Contact Info) Description 12/15/2018 Transcribed Document [facility] [place] [facility] [place] [address] ProviderArt MD [address] [place] [address] Social History Tobacco Use Types Packs/Day [...] Conversion Note - Art ProviderMD - 12/15/2018 9:33 AM CDT Nursing Discharge Summary Entered On: 12/15/2018 9:33 EDT Performed On: 12/15/2018 9:33 EDT by JUAN ANTONIO WHITELY RN Discharge Documentation Patient Disposition, General : Discharge Discharge To : Home with ambulatory/outpatient follow-up Mode Of Departure, General Discharge : Private vehicle Accompanied By, Discharge : Spouse Personal Belongings With Patient : Yes Prescriptions Given to Patient : Yes Discharge Instructions Reviewed With, Opportunity For Questions Given : Patient Patient Education Completed : Yes Number of Prescriptions Given : 5 Teaching Method : Explanation, Printed materials Teaching Evaluation : Verbalizes understanding JUAN ANTONIO WHITLEY RN - 12/15/2018 9:33 EDT documented in this encounter Plan of Treatment Not on file documented as of this encounter Visit Diagnoses Not on filedocumented in this encounter Care Teams Director Physical Therapy Relationship Specialty Start Date End Date SeferinoFerny [address] [place] [address] PCP - General 05/22/22 documented as of this encounter
--- OUTSIDE RECORDS SUMMARY | 2024-11-14 14:50 | XMS_ITS | Encounter Summary ---
Author Organization [employer] ([place], [place], [place], [place]) Address [address] [place] [address] Care Team Providers Care Boring Inspector Name Role Phone Seferino Ferny Primary Care Provider [phone] Encounter Details Date Type Department Care Team (Late st Contact Info) Description 12/14/2018 Transcribed Document [facility] [place] [facility] [place] [address] ProviderArt MD [address] [place] [address] Social History Tobacco Use Types Packs/Day [...] Conversion Note - Art Rodriguez MD - 12/14/2018 10:10 AM CDT Pain Assessment Entered On: 12/14/2018 22:53 EDT Performed On: 12/14/2018 22:54 EDT by Amos Robertson RN Intervention Information: acetaminophen-HYDROcodone Performed by Amos Robertson RN on 12/14/2018 21:54:00 EDT acetaminophen-HYDROcodone,1Tab Oral,Pain (Moderate 4-6) Pain Assessment Pain Assessment : Follow-up assessment Pain Intervention, Drug : Medicated Pain Improved by Intervention : Yes Amos Robertson RN - 12/14/2018 22:53 EDT Electronically signed by Marilou [facility] Conversion Pathology Laboratory Aide Cerner at 08/22/2022 8:25 AM CDT documented in this encounter Plan of Treatment Not on file documented as of this encounter Visit Diagnoses Not on filedocumented in this encounter Care Teams Boring Inspector Relationship Specialty Start Date End Date Ferny Gentile [address] [place] [address] PCP - General 05/22/22 documented as of this encounter
--- OUTSIDE RECORDS SUMMARY | 2024-11-14 14:50 | XMS_ITS | Encounter Summary ---
Author Organization [facility] ([place], [place], [place], [place]) Address [address] [place] [address] Care Team Providers Care Bearing Grinder Name Role Phone Douglas Gentileght Primary Care Provider [phone] Encounter Details Date Type Department Care Team (Late st Contact Info) Description 12/14/2018 Transcribed Document [facility] [place] [address] ProviderArt MD [address] [place] [phone] Social History Tobacco Use Types Packs/Day Years [...] Conversion Note - Historical ProviderMD - 12/14/2018 2:52 PM CDT Initial Discharge Planning Entered On: 12/14/2018 14:52 EDT Performed On: 12/14/2018 14:52 EDT by NICHOLE ARIZMENDI Care Management-Blasting Machine Operator Initial Assessment I Previously Documented Living Environment : No qualifying data available. Living Situation : Home Patient Lives With : Alone Emergency Contact #1 : Jesi Emergency Contact #1 Emergency Contact #1 Relationship : daughter Emergency Contact #2 : - Emergency Contact #2 Phone Number : - Emergency Contact #2 Relationship : - NICHOLE ARIZMENDI Care Management-Blasting Machine Operator - 12/14/2018 14:52 EDT Initial Assessment II Sensory and Motor Deficits : Other: RADHA Current Home Treatments and Equipment : Bedside commsade, NICHOLE Martinez, Care Management-Blasting Machine Operator - 12/14/2018 14:52 EDT Discharge Needs I Anticipated Discharge Date : 12/15/2018 EDT Anticipated Discharge To, CM : Home with home health Current Home Treatment/Equipment : Current Home Treatment/Equipment No qualifying data available. NICHOLE ARIZMENDI Care Management-Blasting Machine Operator - 12/14/2018 14:52 EDT Discharge Needs II Professional Skilled Services : Professional Skilled Services No qualifying data available. Services and Community Resources : Home Health Discharge Options Discussed with Patient : Home Health NICHOLE ARIZMENDI Care Management-Blasting Machine Operator - 12/14/2018 14:52 EDT documented in this encounter Plan of Treatment Not on file documented as of this encounter Visit Diagnoses Not on filedocumented in this encounter Care Teams Bearing Grinder Relationship Specialty Start Date End Date Ferny Gentile [address] [place] [address] PCP - General 05/22/22 documented as of this encounter
--- OUTSIDE RECORDS SUMMARY | 2024-11-14 14:50 | XMS_ITS | Encounter Summary ---
Author Organization [employer] ([place], [place], [place], [place]) Address [address] [place] [address] Care Team Providers Care Workers Compensation Paralegal Name Role Phone Seferino Ferny Primary Care Provider Encounter Details Date Type Department Care Team (Late st Contact Info) Description 12/02/2018 Transcribed Document [facility] [place] [facility] [place] [address] ProviderArt MD [address] [place] [address] Social History Tobacco Use Types Packs/Day [...] Conversion Note - Art ProviderMD - 12/02/2018 11:37 AM CDT PAT Adult Entered On: 12/02/2018 11:42 EDT Performed On: 12/02/2018 11:37 EDT by CINDY DAVID RN Vital Measurements Temperature Source : Temporal artery scanning Temperature Mode : Fahrenheit Temperature, Fahrenheit : 97.6 Deg F Clinical Temperature, C : 36.4 Deg C Peripheral Pulse Rate : 75 bpm Respiratory Rate : 18 Breaths/Min Systolic Blood Pressure : 129 mmHg Diastolic Blood Pressure : 65 mmHg Oxygen Saturation : 95 % Oxygen Therapy Mode : Room air CINDY DAVID RN - 12/02/2018 11:37 EDT Height and Weight, Clinical Dosing Height Source : Stated Height Entry Format : [place] Height, Feet : 5 ft(Converted to: 152 cm, 60 Inch) Height, Inches : 7 Inch(Converted to: 0 ft 7 Inch, 17.78 cm) Clinical Height : 170.18 cm Weight Source : Standing scale Weight Entry Format : [place] Clinical Dosing Weight : 90.91 kg Weight, Pounds : 200 lb Body Surface Area (BSA) : 2.02 m2 Body Mass Index : 31.4 kg/m2 (HI) [place] Body Weight : 61 kg CINDY DAVID RN - 12/02/2018 11:37 EDT Health Histories Smoking Status : Never (less than 100 in lifetime; none in last 30 days) Smokeless Tobacco Status : Never CINDY DAVID RN - 12/02/2018 11:37 EDT Social History (As Of: 12/02/2018 11:42:46 EDT) Tobacco: Never (less than 100 in lifetime) Smoking Status. Never Smokeless Tobacco Status. (Last Updated: 12/02/2018 11:37:29 EDT by CINDY DAVID RN) Alcohol: Alcohol Use Frequency Socially. (Last Updated: 12/15/2017 07:16:58 EDT by RHONA GARLAND RN) Alcohol Use History Yes. Alcohol Use Frequency Rarely. (Last Updated: 12/02/2018 11:37:29 EDT by CINDY DAVID, RN) Substance Abuse: Drug Use Hx: No. (Last Updated: 12/02/2018 11:37:29 EDT by CINDY DAVID, RN) Infectious Disease History Infectious Disease History : Influenza, Measles, Mumps Isolation Needed : [place] Fever/Chills Last 48 Hours : No Travel To Regions with Travel Advisories : No Travel Outside [place] Within Last 30 Days : No Contact With Traveler to Advisory Region : No Tuberculosis Symptoms : None CINDY DAVID RN - 12/02/2018 11:37 EDT Anesthesia/Transfusion History Family History of Anesthesia Reaction : Prior transfusion without reaction Transfusion History : Prior anesthesia without reaction Family History of Anesthesia Reaction : None CINDY DAVID RN - 12/02/2018 11:37 EDT Functional Assessment Functional ADL Evaluation Index EBN Bathing : Independent (2) Dressing : Independent (2) Toileting : Independent (2) Transferring Bed or Chair : Independent (2) Continence : Independent (2) Feeding : Independent (2) CINDY DAVID RN - 12/02/2018 11:37 EDT ADL Index Score : 12 CINDY DAVID RN - 12/02/2018 11:37 EDT Advance Directive Patient has Advance Directive *Q : Yes, Advance Directive not with the patient Advance Directive Type : Living will Copy Advance Directive Verified/on Chart : No CINDY DAVID RN - 12/02/2018 11:37 EDT Psychosocial History Do You Have a History of the Following? : Anxiety Currently in Unsafe Situation : No Tried to Harm Yourself in the Past? : No Thoughts of Harming/Killing Yourself : No CINDY DAVID RN - 12/02/2018 11:37 EDT Teaching/Learning Assessment Barriers To Learning : None evident Individuals Taught : Patient Readiness to Learn : Cooperative Readiness to Learn : Explanation, Printed materials CINDY DAVID RN - 12/02/2018 11:37 EDT Education Topics, Periop Preadmission Perioperative Education Grid Arrival Time/Place : Verbalizes understanding CHG Preoperative Bathing/Cloths : Verbalizes understanding Infection Control : Verbalizes understanding NPO Status/Directions : Verbalizes understanding Preprocedure Preparations : Verbalizes understanding Preprocedure Tests/Labs : Verbalizes understanding Remove Body Piercings : Verbalizes understanding Responsible Adult : Verbalizes understanding Take/Hold Medications Pre-Procedure : Verbalizes understanding CINDY DAVID RN - 12/02/2018 11:37 EDT General Info Want Family/Rep/Phys Notified of Admit : No Emergency Contact #1 : Jesi Emergency Contact #1 Emergency Contact #1 Relationship : daughter Emergency Contact #2 : - Emergency Contact #2 Phone Number : - Emergency Contact #2 Relationship : - Primary Language : Gibraltarian Communication Barrier : None CINDY DAVID RN - 12/02/2018 11:37 EDT Osmar Scale Osmar Sensory Perception : No impairment Osmar Moisture : Rarely moist Osmar Activity : Walks occasionally Osmar Mobility : Slightly limited Osmar Nutrition : Adequate Osmar Friction and Shear : No apparent problem Osmar Score : 20 CINDY DAVID RN - 12/02/2018 11:37 EDT Sleep Apnea Risk Assmt BiPAP/CPAP Ordered for Home Use : Yes Hx of Obstructive Sleep Apnea Diagnosis : Yes BiPAP/CPAP Used at Home : Yes Age over 50 Years Old : Yes Gender Male : No CINDY DAVID RN - 12/02/2018 11:37 EDT Electronically signed by Brina Zamarripa Conversion Letterpress Printing Machinist Cerner at 08/18/2022 11:25 AM CDT documented in this encounter Plan of Treatment Not on file documented as of this encounter Visit Diagnoses Not on filedocumented in this encounter Care Teams Workers Compensation Paralegal Relationship Specialty Start Date End Date Ferny Gentile [address] [place] [phone] PCP - General 05/22/22 documented as of this encounter
--- OUTSIDE RECORDS SUMMARY | 2024-11-14 14:50 | XMS_ITS | Encounter Summary ---
Author Organization [employer] ([place], [place], [place], [place]) Address [address] [place] [address] Care Team Providers Care Furnace Operator And Tender Name Role Phone SeferinoSakinat Primary Care Provider [phone] Encounter Details Date Type Department Care Team (Late st Contact Info) Description 12/14/2018 Transcribed Document [facility] [place] [address] ProviderArt MD [address] [place] [address] Social History Tobacco Use Types Packs/Day [...] Conversion Note - Art ProviderMD - 12/14/2018 12:15 PM CDT Pain Assessment Entered On: 12/15/2018 1:35 EDT Performed On: 12/15/2018 1:32 EDT by Amos Robertson RN Intervention Information: acetaminophen Performed by Amos Robertson RN on 12/15/2018 00:32:00 EDT acetaminophen,1000mg Oral,Pain (Mild 1-3) Pain Assessment Pain Assessment : Follow-up assessment Pain Intervention, Drug : Medicated Pain Improved by Intervention : Yes Amos Robertson RN - 12/15/2018 1:35 EDT documented in this encounter Plan of Treatment Not on file documented as of this encounter Visit Diagnoses Not on filedocumented in this encounter Care Teams Furnace Operator And Tender Relationship Specialty Start Date End Date Ferny Gentile [address] [place] [address] PCP - General 05/22/22 documented as of this encounter
--- OUTSIDE RECORDS SUMMARY | 2024-11-14 14:50 | XMS_ITS | Encounter Summary ---
Author Organization [employer] ([place], [place], [place], [place]) Address [address] [place] [address] Care Team Providers Care Matting Press Tender Name Role Phone Ferny Gentile Primary Care Provider [phone] Encounter Details Date Type Department Care Team (Late st Contact Info) Description 12/14/2018 Transcribed Document [facility] [place] [facility] [place] [address] ProviderArt MD [address] [place] [address] Social History Tobacco Use Types Packs/Day [...] ProviderMD - 12/14/2018 10:10 AM CDT Evaluation, Occupational Therapy Entered On: 12/14/2018 11:38 EDT Performed On: 12/14/2018 11:16 EDT by LOKI BLANTON OTR/Buck General Information, OT Visit Type, OT : Initial evaluation Patient Orders : Order Date Order Ordering 12/14/2018 10:12 OT Evaluation and Treatment Ordered By: MATTHEW CUEVAS MD-ORTheo 12/14/2018 10:12 OT Treatment Instructions Ordered By: MATTHEW CUEVAS MD-ORT Active Diagnoses : No Qualifying Diagnoses Therapy Diagnosis, OT : aftercare following joint replacement surgery L ATHA Admission Date : 12/14/2018 04:48 Assisted by, OT : Physical Therapist Personal Devices : Personal Devices Glasses Assistive Devices : Assistive Devices Cane Precautions in Place : Fall prevention measures General Information Comment, OT : pt is a pleasant female admitted s/p L ATHA performed by Dr. Cuevas and is WBAT . LOKI BLANTON OTR/Buck - 12/14/2018 11:16 EDT General Status Patient Received Status : Supine in bed, Bed alarm activated, Other: family, scds, drain, IV Treatment Start Time : 12/14/2018 11:04 EDT Patient Left Status : Up in chair, Chair alarm activated, RN/PCT informed, Family/Visitors at bedside, All needs met and within reach, Other: IV, scds, drain, family present RN/PCT Informed Comment : RN ok'd to tx, ID and verified Treatment End Time : 12/14/2018 11:20 EDT Treatment Time : 16 Minute(s) LOKI BLANTON OTR/Buck - 12/14/2018 11:16 EDT History and Environment, OT Living Situation, Therapy : Home Patient Lives With : Alone Persons Assisting Patient at Home : Child/Children Professional Skilled Services : None Persons Providing Information : Patient Home Equipment, Therapy : Commode, Shower Equipment, Walker Commode : Commode, bedside Shower Equipment : Shower Chair, with back Walker : Walker, front wheel Home Setup : One story Stairs : Yes Stair Location(s) : Outside Outside Stairs, Number of Steps : 3 Outside Stairs Comment : 2 steps and 1 platform step Railing Outside : Yes Outside Railing Position : Bilateral LOKI BLANTON OTR/Buck - 12/14/2018 11:16 EDT Prior LOF Bathing, OT : Independent Prior LOF Bed Mobility : Independent Prior LOF Upper Body Dressing, OT : Independent Prior LOF Lower Body Dressing, OT : Independent Prior LOF Toileting : Independent Prior LOF Transfer : Independent Prior LOF Grooming, OT : Independent Prior LOF for IADLs, OT : Independent LOKI BLANTON OTR/Buck 12/14/2018 11:16 EDT Upper Extremity Upper Extremity Dominance : Right Right UE Active ROM : WFL Right UE Strength : WFL Left UE Active ROM : WFL Left UE Strength : WFL LOKI BLANTON OTR/Buck - 12/14/2018 11:16 EDT Self Care/Home Management, OT Lower Body Dressing Device Comment, OT : min/mod assist , pt dizzy/lightheaded Bed/Chair/WC Transfer Assist Level : Assist, minimal Bed/Chair/WC Transfer Device : Belt, gait, Walker, front wheel Bed/Chair/WC Device Comment : cues for safety LOKI BLANTON OTR/L 12/14/2018 11:16 EDT Mobility Device/Prosthesis/Wt Bearing Weight Bearing Status Maintained : Yes Weight Bearing Status : As tolerated Functional Mobility Device : Gait belt, Walker, front wheel Functional Mobility with Brace/Splint : No LOKI BLANTON OTR/L 12/14/2018 11:16 EDT Functional Mobility Mobility Grid Supine to Sit : Rehab Minimal assistance Sit to Stand : Rehab Minimal assistance Bed to Chair : Rehab Minimal assistance (Comment: 1-2 person secondary dizzy [LOKI BLANTON OTR/L 12/14/2018 11:16 EDT] ) Stand to Sit : Rehab Minimal assistance LOKI BLANTON OTR/L 12/14/2018 11:16 EDT Functional MobilityComment : gait belt, using rw transfer bed to chair min assist 1-2 person due to dizziness , cues for safety and hand placement LOKI BLANTON OTR/L 12/14/2018 11:16 EDT AM PAC Daily Activity Putting On/Taking Off Lower Body Clothes : A little Bathing (Washing, Rinsing, Drying) : A little Toileting Includes Toilet, Bedpan, Urinal : A little Putting On/Taking Off Upper Clothing : None Taking Care of Grooming : None Eating Meals : None AM-PAC Daily Activity Raw Score : 21 LOKI BLANTON OTR/L 12/14/2018 11:16 EDT Image 3 - Images currently included in the form version of this document have not been included in the text rendition version of the form. Activity Tolerance, OT Activity Comment : good LOKI BLANTON OTR/L 12/14/2018 11:16 EDT Neurological/Sensory Overall Sensory Response : Intact LOKI BLANTON OTR/L 12/14/2018 11:16 EDT Cognition Assessment, OT Orientation : Oriented x 4 LOKI BLANTON OTR/L 12/14/2018 11:16 EDT Education OT Occupational Therapy Education Grid Activity of Daily Living Training : Returns demonstration, Needs further teaching Functional Mobility Training : Returns demonstration, Needs further teaching Home Safety : Needs further teaching LOKI BLANTON OTR/Buck - 12/14/2018 11:16 EDT Indication Assessment, OT Occupational Therapy Indicated : Yes Problem List, OT : Impaired, activities daily living, Impaired functional mobility, Impaired, joint mobility, Impaired, transfers Potential Barriers, OT : Acuity of illness, Pain Rehabilitation Potential, OT : Good LOKI BLANTON OTR/Buck - 12/14/2018 11:16 EDT Plan of Care, OT OT Tx Plan/Goals Established w Patient : Yes OT Frequency Rehab : Other: 3-5x/week Other OT Treatment Provided This Date : ADL OT Duration Rehab : Seven Days OT Treatments Planned : Activities of daily living, Caregiver training, Functional mobility training, Safety education, Therapeutic activities, Therapeutic exercises LOKI BLANTON OTR/Buck - 12/14/2018 11:16 EDT Skilled Nursing Goals, OT Other LTG Grid Goal #1 Goal #2 Goal #3 Goal : pt to perform LB ADL task CGA using AD PRN pt to perform functional ADL transfers CGA at rw level pt to verbalize understanding of home safety/car transfers Date to Meet : 12/21/2018 EDT 12/21/2018 EDT 12/21/2018 EDT Goal Status : Initial goal Initial goal Initial goal LOKI BLANTON OTR/Buck - 12/14/2018 11:16 EDT LOKI BLANTON OTR/Buck - 12/14/2018 11:16 EDT LOKI BLANTON OTR/Buck - 12/14/2018 11:16 EDT Treatment Note Subjective Comment : pt agrees to tx Patient's Response to Treatment : pt dizzy during eval, pale , assist x1-2 for safety Additional Objective Information : eval 8 ADL 8 minutes Assessment : pt will benefit from skilled OT services while inpt for safe return home to PLOF s/p L ATHA Plan for Treatment : skilled OT 3-5x/week for 7 days LOKI BLANTON OTR/Buck - 12/14/2018 11:16 EDT Pain Assessment Pain Scaled Used : 0-10 Pain scale Pain Score Pre-Intervention : 0 LOKI BLANTON OTR/Buck - 12/14/2018 11:16 EDT Image 1 - Images currently included in the form version of this document have not been included in the text rendition version of the form. [facility] OT Charges OT Selfcare/Hm Mgmt Ea 15 Min : 1 OT Eval Low Complexity : 1 LOKI BLANTON OTR/L - 12/14/2018 11:16 EDT Electronically signed by [facility], [facility] Conversion Healthcare Analyst Cerner at 08/18/2022 11:12 AM CDT documented in this encounter Plan of Treatment Not on file documented as of this encounter Visit Diagnoses Not on filedocumented in this encounter Care Teams Matting Press Tender Relationship Specialty Start Date End Date Ferny Gentile [address] [place] [address] PCP - General 05/22/22 documented as of this encounter
--- OUTSIDE RECORDS SUMMARY | 2024-11-14 14:50 | XMS_ITS | Encounter Summary ---
Author Organization [employer] ([place], [place], [place], [place]) Address [address] [place] [address] Care Team Providers Care Distribution Systems Serviceperson Name Role Phone SeferinoSakinat Primary Care Provider [phone] Encounter Details Date Type Department Care Team (Late st Contact Info) Description 12/14/2018 Transcribed Document [facility] [place] [facility] [place] [address] ProviderArt MD [address] [place] [phone] Social History Tobacco Use Types Packs/Day Years [...] Conversion Note - Art ProviderMD - 12/14/2018 7:20 AM CDT Spiritual Care Assessment Entered On: 12/14/2018 8:09 EDT Performed On: 12/14/2018 7:20 EDT by YUNIER HENDERSON Chaplain-Daphne Cert General Information Initial Visit : Yes Referred by : Patient Referral Reason Comment : Presurgery prayer. Ministry Provided to : Patient, Family/Significant other Spiritual/Emotional Acuity : High Spiritual Framework : Well integrated, provides significant strength/resource YUNIER HENDERSON Chaplain-Non Cert - 12/14/2018 8:02 EDT Spiritual Assessment Supportive/Healthy Relationships : Yes Feels Connected to God/the Sacred : Yes God/the Spiritual Gives Strength : Yes Spiritual Assessment Comment/Summary Points : Shared presurgery prayer with patient and daughter.Patient was not on list but she invited me into her room to pray.We prayed for God's presence and successful outcome. Spirital Assessment Comment/Summary Report : SPIRITUAL ASSESSMENT COMMENT/SUMMARY No qualifying data available. YUNIER HENDERSON Chaplain-Non Cert - 12/14/2018 8:02 EDT Interventions Emotional Support : Empathic/Engaged listening, Family/Significant other supported Spiritual and Pentecostalism : Prayer shared Change, Adjustment and Loss : Provided support for current loss/grief Intervention Comment/Summary Points : Prayer. YUNIER HENDERSON Chaplain-Non Cert - 12/14/2018 8:02 EDT Outcomes Appreciation Expressed : yes Gratitude Expressed : yes Spiritual Care Outcomes Comment : Comforted. YUNIER HENDERSON Chaplain-Non Cert - 12/14/2018 8:02 EDT Electronically signed by Brina Zamarripa Conversion Administration Professional Cerner at 08/18/2022 11:24 AM CDT documented in this encounter Plan of Treatment Not on file documented as of this encounter Visit Diagnoses Not on filedocumented in this encounter Care Teams Distribution Systems Serviceperson Relationship Specialty Start Date End Date Ferny Gentile [address] [place] [address] PCP - General 05/22/22 documented as of this encounter
--- OUTSIDE RECORDS SUMMARY | 2024-11-14 14:50 | XMS_ITS | Encounter Summary ---
Author Organization [facility] ([place], [place], [place], [place]) Address [address] [place] [address] Care Team Providers Care Oven Loader Name Role Phone Douglas Gentileght Primary Care Provider [phone] Encounter Details Date Type Department Care Team (Late st Contact Info) Description 12/14/2018 Transcribed Document [facility] [place] [facility] [place] [address] ProviderArt MD [address] [place] [id number] Social History Tobacco Use Types Packs/Day [...] Note - Art Rodriguez MD - 12/14/2018 6:21 PM CDT Patient Education Materials Follows: What to expect after the Procedure: After the procedure, it is common to have: ?? Pain and swelling. ?? A small amount of blood or clear fluid coming from your incision for up to 7 days ?? It is normal to have a moderate amount of bleeding from the site of the drain that was pulled on the morning after surgery. You can hold pressure on the area for 3-5 minutes and cover with a bandage as needed. Diet: ?? Resume usual diet ?? No alcoholic beverages while taking pain medication ?? Drink 8-10 glasses of water a day to prevent constipation from pain medication ?? Increase fiber to help prevent constipation. Straining can cause increased pressure and pain in your incision area ?? Increase protein to promote healing Driving: ?? Do not drive until your health care provider approves. Ask your health care provider when it is safe to drive if you have an immobilizer on your knee. ?? Do not drive or operate heavy machinery while taking prescription pain medicine. ?? Do not drive for 24 hours if you received a sedative. Activity: ?? Do not lift anything that is heavier than 10 lb (4.5 kg) until your health care provider approves. ?? No strenuous activity ?? Avoid high-impact activities, including running, jumping rope, and jumping jacks. ?? Avoid sitting for a long time without moving. Get up and move around at least every few hours. ?? Keep legs elevated while seated and place surgery leg on 2-3 pillows, this will decrease swelling ?? Continue using walker until cleared by physical therapy Bathing: ?? Do not take baths, swim, or use a hot tub for one month after surgery. ?? May shower on the third day after surgery by covering incision with Glad Brand Press and Seal saran wrap. After showering, dry off completely BEFORE removing saran wrap. ?? Use Press and Seal saran wrap to shower for one month after surgery ?? You must be seated to shower until you are no longer using the walker Other: ?? Use ice therapy for 20-30 minutes at a time and leave off for 20-30 minutes at a time. Always keep a towel or cloth between the ice pack and your skin ?? Continue to use Incentive Spirometer 10 times an hour while awake for one month to help prevent pneumonia Contact a health care provider if: ?? You have more redness, swelling, or pain around your incision. ?? You have more fluid or blood coming from your incision. ?? Your incision or drain site feels warm to the touch. ?? You have pus or a bad smell coming from your incision. ?? You have a fever. ?? Your incision breaks open after your health care provider removes your sutures, skin glue, or adhesive tape. ?? Your prosthesis feels loose. ?? You have knee pain that does not go away. DVT: Blood Clot Blood clots are a common risk after an orthopedic surgery Symptoms: ?? Swelling of your leg or arm, especially if one side is much worse. ?? Warmth and redness of your leg or arm, especially if one side is much worse. ?? Pain in your arm or leg. If the clot is in your leg, symptoms may be more noticeable or worse when you stand or walk. ?? A feeling of pins and needles, if the clot is in the arm. The symptoms of a DVT that has traveled to the lungs (pulmonary embolism, PE) usually start suddenly and include: ?? Shortness of breath while active or at rest. ?? Coughing or coughing up blood or blood-tinged mucus. ?? Chest pain that is often worse with deep breaths. ?? Rapid or irregular heartbeat. ?? Feeling light-headed or dizzy. ?? Fainting. ?? Feeling anxious. ?? Sweating. There may also be pain and swelling in a leg if that is where the blood clot started. How is this prevented? ?? Exercise regularly. For at least 30 minutes every day, engage in: -Activity that involves moving your arms and legs. -Activity that encourages good blood flow through your body by increasing your heart rate. ?? Exercise your arms and legs every hour during long-distance travel (over 4 hours). ?? Drink plenty of water and avoid drinking alcohol while traveling. ?? Avoid sitting or lying in bed for long periods of time without moving your legs. ?? Maintain a weight that is appropriate for your height. Ask your health care provider what weight is healthy for you. ?? If you are a woman who is over 35 years of age, avoid unnecessary use of medicines that contain estrogen. These include control pills. ?? Do not smoke, especially if you take estrogen medicines. If you need help quitting, ask your health care provider. ?? Wear compression stockings (if told by your health care provider) to help prevent blood clots from forming. High Fiber/High Protein Diet High fiber foods: To prevent constipation Grains Whole-grain breads. Multigrain cereal. Oats and oatmeal. Brown rice. Barley. Bulgur wheat. Millet. Bran muffins. Popcorn. Roy wafer crackers. Vegetables Sweet potatoes. Spinach. Kale. Artichokes. Cabbage. Broccoli. Green peas. Carrots. Squash. Fruits Berries. Pears. Apples. Oranges. Avocados. Prunes and raisins. Dried figs. Meats and Other Protein Sources [place], kidney, shrestha, and soy beans. Split peas. Lentils. Nuts and seeds. Dairy Fiber-fortified yogurt. Beverages Fiber-fortified soy milk. Fiber-fortified orange juice. Other Fiber bars. High-protein foods: To promote healing High-protein foods contain 4 grams (4 g) or more of protein per serving. They include: ?? Beef, ground sirloin (cooked) - 3 oz have 24 g of protein. ?? Cheese (hard) - 1 oz has 7 g of protein. ?? Chicken breast, boneless and skinless (cooked) - 3 oz have 13.4 g of protein. ?? Cottage cheese - 1/2 cup has 13.4 g of protein. ?? Egg - 1 egg has 6 g of protein. ?? Fish, filet (cooked) - 1 oz has 6-7 g of protein. ?? Garbanzo beans (canned or cooked) - 1/2 cup has 6-7 g of protein. ?? Kidney beans (canned or cooked) - 1/2 cup has 6-7 g of protein. ?? Brownlee (cooked) - 3 oz has 24 g of protein. ?? Milk - 1 cup (8 oz) has 8 g of protein. ?? Nuts (peanuts, pistachios, almonds) - 1 oz has 6 g of protein. ?? Peanut butter - 1 oz has 7-8 g of protein. ?? Pork tenderloin (cooked) - 3 oz has 18.4 g of protein. ?? Pumpkin seeds - 1 oz has 8.5 g of protein. ?? Soybeans (roasted) - 1 oz has 8 g of protein. ?? Soybeans (cooked) - 1/2 cup has 11 g of protein. ?? Soy milk - 1 cup (8 oz) has 5-10 g of protein. ?? Soy or vegetable zuri - 1 zuri has 11 g of protein. ?? Lares seeds - 1 oz has 5.5 g of protein. ?? Tofu (firm) - 1/2 cup has 20 g of protein. ?? Tuna (canned in water) - 3 oz has 20 g of protein. ?? Yogurt - 6 oz has 8 g of protein. Fall Prevention ?? Use night lights. ?? Install grab bars by the toilet and in the tub and shower. Do not use towel bars as grab bars. ?? Use non-skid mats or decals on the floor of the tub or shower. ?? If you need to sit down while you are in the shower, use a plastic, non-slip stool. ?? Keep the floor dry. Immediately clean up any water that spills on the floor. ?? Remove soap buildup in the tub or shower on a regular basis. ?? Remove throw rugs and other tripping hazards from the floor. ?? Place frequently used items in [id number] places ?? Keep electrical cables out of the way. ?? Do not leave any items on the stairs. ?? Make sure that there are handrails on both sides of the stairs. Fix handrails that are broken or loose. Make sure that handrails are as long as the stairways. ?? Check any carpeting to make sure that it is firmly attached to the stairs. Fix any carpet that is loose or worn. ?? Avoid having throw rugs at the top or bottom of stairways, or secure the rugs with carpet tape to prevent them from moving. ?? Wear closed-toe shoes that fit well and support your feet. Wear shoes that have rubber soles or low heels. ?? Use mobility aids as needed, such as canes, walkers, scooters, and crutches. ?? Turn on lights if it is dark. Replace any light bulbs that burn out. ?? Set up furniture so that there are clear paths. Keep the furniture in the same spot. ?? Be aware of any and all pets. ?? Review your medicines with your healthcare provider. Some medicines can cause dizziness or changes in blood pressure, which increase your risk of falling. Hand Washing You should wash your hands whenever you think they are dirty. You should also wash your hands: ??? After: ?? Working or playing outside. ?? Touching an animal or its toys or leash. ?? Handling livestock. ?? Using the bathroom. ?? Using household restoration ecologist or toxic chemicals. ?? Touching or taking out the garbage. ?? Touching anything dirty around your home. ?? Handling soiled clothes or rags. ?? Taking care of a sick child. This includes touching used tissues, toys, and clothes. ?? Sneezing, coughing, or blowing your nose. ?? Using public transportation. ?? Shaking hands. ?? Using a phone, including your mobile phone. ?? Touching money. ??? Before and after: ?? Preparing food. ?? Feeding a baby or young child. ?? Eating. ?? Visiting or taking care of someone who is sick. ?? Changing a diaper. ?? Changing a bandage (dressing) or taking care of an injury or wound. ?? Giving or taking medicine. If soap and [...] 4. Repeat the process for each step. ?? Always keep both feet within the width of the walker's legs or wheels. ?? When using your walker, you should not feel like you need to lean forward or to the side to keep your hands on the handgrips. ?? Make sure you are following any weight-bearing instructions that your health care provider has given you. ?? Be careful not to let the walker get too far ahead of you as you walk. ?? If your walker does not glide well [...] 5. Step down with your stronger leg. Electronically signed by Brina Zamarripa [employer] Professor Cerner at 08/18/2022 11:11 AM CDT documented in this encounter Plan of Treatment Not on file documented as of this encounter Visit Diagnoses Not on filedocumented in this encounter Care Teams Oven Loader Relationship Specialty Start Date End Date Ferny Gentile [address] [place] [id number] PCP - General 05/22/22 documented as of this encounter
--- OUTSIDE RECORDS SUMMARY | 2024-11-14 14:50 | XMS_ITS | Data Portability ---
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 Plan of Treatment Reminders Order Date Submit Date Provider Last Modified By Organization Details Last Modified Time Details Appointments None recorded. Lab None recorded. Referral None recorded. Procedures None recorded. Surgeries None recorded. Imaging None recorded. Medication Orders cetirizine 10 mg tablet [address] [facility], [address], [address], 2 16:54:49 Mucinex 600 mg tablet, extended release 2021 022 [facility] [address], [address], 2 14:20:27 Nexium 40 mg capsule,del ayed release [address] [facility], [address], [address], 09:41:51 Patient TargetsNo targets recorded. Patient Instructions Encounter Date Encounter Id Patient Instructions Last Modified By Organization Details Last Modified Time 01/01/2021 [id number] 1. D/C Sudafed 2 . Schedule modified barium Swallow-I am hopeful this gives us a clue on why she is having more difficulty with her swallowing 3. F/u with Barium Swallow results rola Not available 01/01/2021 17:32:04 01/22/2021 [id number] 1. Modified barium swallow results reviewed with patient-normal 2. RX-Nexium 40mg- take 1 po QAM 3. Thyroid ultrasound ordered 4. We will schedule speech therapy for hoarseness/swallo wing issues- [place]. 5. F/u with thyroid ultrasound results, or per speech therapy recommendations. rola Not available 01/22/2021 17:04:45 10/08/2021 [id number] 1. Laryngoscopy performed ; clinical photos obtained. I have evidence of fairly well compensated laryngeal pharyngeal reflux. She has some poor vocal closure at the posterior portion of the cords which is causing some false cord overclosure. 2. Prior medical records reviewed including Dr. Spencer Eubanks note 3. May d/c use of Nexium 4. Rx- Cetirizine 10mg- take 1 po qd ; Mucinex - take 1 po bid - drink lots of water 5. Recommend evaluation by speech pathology - Farnaz Echevarria 6. F/u in 6 months, or per speech pathology recommendations. rola Not available 10/08/2021 17:10:26 03/04/2022 [id number] 1. F/u in 6 months or sooner if concerns arise. [email or web address] Not available 03/04/2022 14:35:46 09/02/2022 [id number] 1. Continue usin g Ipratropium [place] Nasal spray, Cetirizine as needed 2. Continue seeing Dr. Eubanks for GI treatment. 3. F/u prn nstaton Not available 09/02/2022 15:39:21 Reason for Referral None Reported. Results Created Date Observation Date Name Description Value Unit Range Abnormal Flag Note LastModifiedBy Organization Detail LastModifiedTime 01/23/20 21 01/18/2021 ANT, modif ashley moura study No observ ation record ed. [email or web address] [facility] Scheduling [address], [place], [address], 01/23/2021 16:52:13 02/01/20 21 01/31/2021 US, thyro id No observ ation record ed. lenny [facility] [address], [place], [address], 02/04/2021 09:57:14 Result Notes None recorded. Problems Name Problem SNOMED Code Status Onset Date Resolution Date Notes Provider Name and Address Organization Details Recorded Time Tear film insuffici ency 91970355 Active 2015 From Automated Load;Prov ider: Nacny Garcia;S tatus: Active Not Available [facility] 7 06:24:30 Abscess of intestine co-occurr ent and due to diverticu lar disease 01771899938 07 Active 2015 From Automated Load;Prov ider: Radha Martin;St atus: Active Not Available [facility] 7 06:34:09 Bilateral pseudopha dinesh 76036683238 614044 Active 2016 NANCY GARCIA MD [address] [place] [address], [address] , [facility] 7 12:02:06 Diverticu litis of gastroint estinal tract 914919645 Active 2015 From Automated Load;Prov ider: Radha Martin;St atus: Active Not Available [facility] 6 01:23:10 Diverticu lar disease of colon 611835553 Active 2015 From Automated Load;Prov ider: Radha Martin;St atus: Active Not Available [facility] 6 01:23:10 Problem Notes None recorded. Procedures Surgical History Date Name Laterality Status Provider Name and Address Organization Details Recorded Time 10/09/19 22 Laryngoscopy Flex completed BETINA GAMINO III, MD [address] [place], [address], [facility] 10/08/2021 17:10:04 02/07/20 20 Laryngoscopy Flex completed Agustina Veliz [facility] 02/07/2020 14:52:26 12/03/19 20 Pacemaker/Cardiac Implant completed Candice Lake [facility] 01/01/2021 15:26:34 Cataract Surgery completed Iva Degroot [facility] 03/05/2017 11:06:06 Removal of tonsils completed Iva Degroot [facility] 03/05/2017 11:04:33 excision of bilateral breasts completed Cheryl Drummond [facility] 02/07/2020 14:19:08 Nipple/areola reconstruction completed Cheryl Drummond [facility] 02/07/2020 14:19:25 Back Surgery completed Cheryl Drummond [facility] 02/07/2020 14:20:16 Pacemaker/Cardiac Implant completed Cheryl Drummond [facility] 02/07/2020 14:27:55 Imaging Results None recorded. Procedure Notes None recorded. Medical Equipment None Reported. Allergies Allergen ID Allergen Name Allergen Category Reaction Reaction Severity Criticality Documentation Date Start Date Code Code System Note Provider Name and Address Organization Details Recorded Time Bactrim medicatio n Not available Not available Not available 03/27/20162015 73001 9 RxNorm Comme nt: Creat ed By: Marce Zamorano astrid Date: 2015 8:15: 17 AM; Not Available [facility] 6 12:17:21 acetamino phen / oxycodone medicatio n Not available Not available Not available 03/27/20162014 21541 3 RxNorm Sever ity: Sever e; Comme nt: Head ache; Creat ed By: Neha Zamorano astrid Date: 2014 1:28: 29 PM; Not Available [facility] 6 12:17:21 450334 Substance with sulfonami de structure and antibacte rial mechanism of action (substanc e) medicatio n Not available Not available Not available 03/05/2017 02809 8003 [facility] 7 11:00:45 170274 Pravachol medicatio n Not available Not available Not available 02/07/2020 86823 3 RxNorm [facility] 0 14:18:35 Medications Name Sig Start Date Stop Date Status Note LastModified by Organization Details LastModified Time ulair 10 mg tablet Take 1 tablet every day by oral route. 02/06 completed Not Available Not Available Not Available cetirizin e 10 mg tablet Take 1 tablet every day by oral route for 30 days. 2021 active Not Available Not Available Not Avai lable warfarin 7.5 mg tablet Take 1 tablet every day by oral route. active Not Available Not Available No t Available dofetilid e 250 mcg capsule Take 1 capsule twice a day by oral route. active Not Available Not Available No t Available Lasix 20 mg tablet Take 1 tablet every day by oral route. active Not Available Not Available No t Available esomepraz ole magnesium 40 mg capsule,d elayed release TAKE 1 CAPSULE BY MOUTH ONCE DAILY IN THE MORNING FOR 30 DAYS 2021 active Not Available Not Available Not Avai lable omeprazol e 20 mg capsule,d elayed release Take 1 capsule every day by oral route. active Not Available Not Available No t Available CoQ10 30 mg capsule Take 1 capsule every day by oral route. active Not Available Not Available No t Available digoxin 125 mcg (0.125 mg) tablet Take 1 tablet every day by oral route. active Not Available Not Available No t Available ipratropi um bromide 21 mcg (0.03 %) nasal spray [place] 2 sprays twice a day by intranas al route. active Not Available Not Available No t Available Sudafed 30 mg tablet Take 2 tablets every 4-6 hours by oral route. 01/01 completed Not Available Not Available Not Available Bactrim 400 mg-80 mg tablet 03/05 completed Duration : 10 days;Med ication Descript ion: sulfamet hoxazole -trimeth oprim; Route:or al; refills: 0; Quantity :40 tablet Not Available Not Available Not Available Mucinex 600 mg tablet, extended release Take 1 tablet every 12 hours by oral route for 30 days. 03/04 completed Not Available Not Available Not Available ezetimibe 10 mg tablet Take 1 tablet every day by oral route. active Not Available Not Available No t Available aspirin 03/05 completed Medicati on Descript ion: aspirin; refills: 0 Not Available Not Available Not Available citalopra m 01/01 completed Medicati on Descript ion: citalopr am; Route:or al; refills: 0 Not Available Not Available Not Available ipratropi um bromide 2020 active Not Available Not Available Not Avai lable omeprazol e 02/06 completed Medicati on Descript ion: omeprazo le; refills: 0 Not Available Not Available Not Available warfarin 01/01 completed Medicati on Descript ion: warfarin ; refills: 0 Not Available Not Available Not Available flecainid e 01/01 completed Medicati on Descript ion: flecaini de; Route:or al; refills: 0 Not Available Not Available Not Available Lortab 03/05 completed Medicati on Descript ion: acetamin ophen-hy drocodon e; Route:or al; refills: 0 Not Available Not Available Not Available metoprolo l succinate 01/01 completed Medicati on Descript ion: metoprol ol; Route:or al; refills: 0 Not Available Not Available Not Available [place]-3 Daily 05/06 completed Frequenc y: daily;Me dication Descript ion: omega-3 polyunsa turated fatty acids; Dosage:1 ; Route:or al; refills: 0; Quantity :otc capsule Not Available Not Available Not Available Vitamin D3 active Not Available Not Available Not Available cetirizin e 01/01 completed Medicati on Descript ion: cetirizi ne; Route:or al; refills: 0 Not Available Not Available Not Available Metamucil Daily 05/06 completed Frequenc y: daily;Me dication Descript ion: psyllium ; Dosage:2 tablespo ons; Route:or al; refills: 0 Not Available Not Available Not Available Miralax Daily 01/01 completed Instruct ions: half capful qd;Frequ ency: daily;Me dication Descript ion: polyethy edita glycol 3350; Dosage:a s directed ; Route:or al; refills: 0; Quantity :1 powder for reconsti tution Not Available Not Available Not Available Mucinex 1 tablet BID 03/04 completed Not Available Not Available Not Available omeprazol e 20 mg tablet,de layed release Take by oral route. 01/01 completed Not Available Not Available Not Available UNLISTED MEDICATIO N Konsyl/m iralax 1 tbsp daily as neededMe ga Red 350 mg 1 tablet dailyMer betriq 25 mg 1 tablet daily active Not Available Not Available No t Available Probiotic Formula 10 billion cell(2 billion ea) capsule 01/01 completed Medicati on Descript ion: bifidoba cterium- lactobac illus; Route:or al; refills: 0 Not Available Not Available Not Available Livalo 2 mg tablet Take 1 tablet 3 times a week by oral route. 05/06 completed Not Available Not Available Not Available Prolia 60 mg/mL subcutane ous syringe 02/06 completed Medicati on Descript ion: denosuma b; Route:henry bcutaneo us; refills: 0 Not Available Not Available Not Available Probiotic active Not Available Not Katerin ilable Not Available Osteo Bi-Flex active Not Available Not Available Not Available magnesium 400 mg (as magnesium oxide) capsule Take by oral route. 01/01 completed Not Available Not Available Not Available Myrbetriq 50 mg tablet,ex tended release Take 1 tablet by mouth once daily 01/01 completed Not Available Not Available Not Available Entresto 24 mg-26 mg tablet Take 1 tablet twice a day by oral route. active Not Available Not Available No t Available Xiidra 5 % eye drops in a dropperet te active Not Available Not Available Not Available magnesium 400 mg (as magnesium oxide) tablet Take 1 tablet every day by oral route. 03/04 completed Not Available Not Available Not Available Vitals Date Recorded Body height Body mass index (BMI) Body weight Body temperature Heart rate Oxygen saturation Oxygen saturation in Arterial blood by Pulse oximetry Provider Name and Address Organization Details Last Updated DateTime 3 170.18 cm 26.2 kg/m2 71947.0 3 g 97.2 [degF] 57 /min 93 % 93 % Stacy Garcia [facility] 3 15:13:45 Date Recorded Body height Body mass index (BMI) Body weight Body temperature Heart rate Oxygen saturation Oxygen saturation in Arterial blood by Pulse oximetry Systolic And Diastolic Provider Name and Address Organization Details Last Updated DateTime 2 170.18 cm 26.8 kg/m2 39883.3 g 97.4 [degF] 81 /min 98 % 98 % 144/73 mm[Hg] Josephine Perrin [facility] 2 15:43:16 Date Recorded Body height Body mass index (BMI) Body weight Body temperature Heart rate Systolic And Diastolic Provider Name and Address Organization Details Last Updated DateTime 1 170.18 cm 28 kg/m2 67129.2 4 g 97.3 [degF] 107 /min 134/68 mm[Hg] Candice Samanonchard [facility] 1 15:17:08 Date Recorded Body height Body mass index (BMI) Body weight Body temperature Heart rate Systolic And Diastolic Provider Name and Address Organization Details Last Updated DateTime 1 170.18 cm 27.7 kg/m2 71484.5 5 g 97.2 [degF] 97 /min 137/74 mm[Hg] Sherry Amaya [facility] 1 14:06:32 Date Recorded Body height Body mass index (BMI) Body weight Body temperature Heart rate Oxygen saturation Oxygen saturation in Arterial blood by Pulse oximetry Systolic And Diastolic Provider Name and Address Organization Details Last Updated DateTime 2 170.18 cm 26.5 kg/m2 78034.9 1 g 97.5 [degF] 73 /min 95 % 95 % 136/74 mm[Hg] Stacy Garcia [facility] 2 14:22:53 Social History Question Answer Notes LastModified by Organizat ion Details LastModified Time Tobacco Smoking Status [facility] 03/05/2017 11:04:03 What Was The Date Of Your Most Recent Tobacco Screening? 03/05/2017 Information n ot available 06/21/2019 Sex: Unknown Functional Status Question Answer Note LastModified by Organization D etails LastModified Time What is your level of alcohol consumption? None [email or web address] Information not available 02/07/2020 Mental Status None recorded. Family History Relationship Description Onset Age of this Age Resolved Age Notes LastModified by Organization Details LastModified Time Mother Cataract [email or web address] Not availab le 03/05/2017 11:02:47 Mother Hypertensive disorder Not available 03/05 11:03:03 Mother Heart disease Not available 03/05 11:03:47 Mother Family history of malignant neoplasm [email or web address] Not available 03/05 11:03:56 Father Cataract [email or web address] Not availab le 03/05/2017 11:02:47 Father Age related macular degeneration [email or web address] Not available 11:02:52 Father History of thyroid disorder [email or web address] Not available 03/05 11:03:23 Father Heart disease [email or web address] Not available 03/05 11:03:47 Medical History Condition Response Glasses/Contacts Y Gynecological HistoryNo gynecological history recorded. Obstetrics History GPAL:G 0 P 0 0 0 0 Immunizations Vaccine Type Date Status Note Provider Nam e and Address Organization Details Recorded Time COVID-19, mRNA, LNP-S, PF, 30 mcg/0.3 mL dose 05/09/2020 completed Stacy Ray [facility] 09/02/2022 15:12:38 COVID-19, mRNA, LNP-S, PF, 30 mcg/0.3 mL dose 06/11/2020 [facility]22 15:12:38 Influenza, high-dose, quadrivalent, PF 01/29/2021 completed Stacy Ray [facility] 09/02/2022 15:12:37 COVID-19, mRNA, LNP-S, PF, 100 mcg/0.5mL dose or 50 mcg/0.25mL dose 05/09/2020 completed Stacy Ray [facility] 09/02/2022 15:12:37 COVID-19, mRNA, LNP-S, PF, 100 mcg/0.5mL dose or 50 mcg/0.25mL dose 06/11/2020 [facility] 09/02/2022 15:12:37 COVID-19, mRNA, LNP-S, PF, 100 mcg/0.5mL dose or 50 mcg/0.25mL dose 03/13/2021 completed Stacy Ray [facility] 09/02/2022 15:12:38 Past Encounters Encounter ID Performer Location Encounter Start Date Encounter Closed Date Diagnosis/Indication Diagnosis SNOMED-CT Code Diagnosis ICD10 Code Diagnosis Note [id number] NANCY GARCIA MD [facility]PH[facility] [address] [place] [address] 03/05/2017 10:43:09 03/09/2017 07:34:36 Tear film insufficiency 00615696 H04.123 continue ats and wcs.pt not interested in further tx for now Bilateral pseudophakia 8511508773 8795992 Z96.1 stable, obs. defers mrx. Posterior vitreous detachment 783384313 H43.819 Discussed vitreous detachment with the patient. I discussed the patient monitoring for increasing flashes/fl oater/beaver ge in vision and to call immediatel y for any change in the vision. [id number] NANCY GARCIA MD [facility]PHTH[facility]Y [address] [place] [address] 05/06/2019 14:10:48 05/06/2019 16:15:20 Pseudophakia 84328286 Z96.1 stable continue mr todya Dry eyes 897133121 H04.1 29 rec switch to xiidra bid ou art tears prn hot compresses prn 1 year adn prn. [id number] MD KARINA JAIMES III 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 Laryngopha ryngeal reflux 749744287 K21.9 Posterior rhinorrhea 758 01024 R09.82 Chronic rhinitis 3120725 6 J31.0 Heart disease 67918867 I 51.9 - Patient has a pacemaker [id number] BETINA GAMINO III, MD [facility] [address] [place] [address] 01/01/2021 15:08:39 01/01/2021 16:14:59 Allergic rhinitis 03719082 J30.9 Neck pain 54154017 M54.2 Posterior rhinorrhea 758 33576 R09.82 Clearing t hroat - hawking 075754085 R05 Chronic hoarseness 12826 36339 105 R49.0 Stiff neck 986354779 M43 .6 Atrial fibrillation 4943 6004 I48.91 Laryngopha ryngeal reflux 506390928 K21.9 [id number] BETINA GAMINO III, MD [facility] [address] [place] [address] 01/22/2021 13:59:22 01/23/2021 08:00:54 Neck pain 31736721 M54.2 Posterior rhinorrhea 758 68331 R09.82 Clearing t hroat - hawking 457916658 R05 Chronic hoarseness 21373 44514 105 R49.0 Laryngopha ryngeal reflux 066139611 K21.9 Atrial fibrillation 4943 6004 I48.91 Dysphagia 25247862 R13.1 0 Family his tory of Thyroid disorder 021573698 Z83.49 Choking sensation 518178 009 R09.89 [id number] BETINA GAMINO III, MD [facility] CLOSED [address] [address] 10/08/2021 15:26:57 10/08/2021 16:00:41 Posterior rhinorrhea 46595032 R09.82 Clearing t hroat - hawking 174139168 R05.9 Chronic hoarseness 82412 94185 105 R49.0 Dysphagia 86556811 R13.1 0 Laryngopha ryngeal reflux 517251892 K21.9 Choking sensation 869820 009 R09.89 Neck pain 02692915 M54.2 Family his tory of Thyroid disorder 034318353 Z83.49 Atrial fibrillation 4943 6004 I48.91 Atrophy of vocal cord 42 6226325 J38.3 Dysphonia 34231790 R49.9 - Muscle tension Allergic rhinitis 953298 04 J30.9 [id number] MD KARINA JAIMES III [facility] CLOSED [address] [place] [address] 03/04/2022 14:13:11 03/04/2022 14:41:27 Atrophy of vocal cord 005609292 J38.3 -Much improved. 03/04/2022. Dysphonia 84179797 R49.9 - Muscle tension has improved with the speech therapy interventi on. 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 Please exercise will help in this endeavor. I did mention possibilit y of vocal cord injections with a filler to provide better closure for her. Posterior rhinorrhea 758 75315 R09.82 Clearing t hroat - hawking 734533001 R05.9 Chronic hoarseness 83959 38932 105 R49.0 Dysphagia 99214322 R13.1 0 Laryngopha ryngeal reflux 325777087 K21.9 -Much improved with continued use of Omeprazole . 03/04/2022. Choking sensation 188548 009 R09.89 Neck pain 85400988 M54.2 Family his tory of Thyroid disorder 401117579 Z83.49 Atrial fibrillation 4943 6004 I48.91 Allergic rhinitis 120184 04 J30.9 [id number] MD KARINA JAIMES III [facility] CLOSED [address] [place] [address] 09/02/2022 15:05:01 09/02/2022 16:28:34 Dysphonia 24971096 R49.9 - Muscle tension has improved with the speech therapy interventi on. 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 Please exercise will help in this endeavor. I did mention possibilit y of vocal cord injections with a filler to provide better closure for her. Chronic hoarseness 81802 75097 105 R49.0 - improved after speech therapy Atrophy of vocal cord 42 5910385 J38.3 -Much improved. 03/04/2022. Laryngopha ryngeal reflux 508007627 K21.9 -Much improved with continued use of Omeprazole . 03/04/2022. 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 Cough 68147124 R05.9 Health Concerns Section Related Observation LastModified by Organization Detai ls LastModified Time None Recorded Concern Status LastModified by Organization Details LastModified Time None Recorded Advance Directives Directive None Recorded Payers Insurance Date Sequence Insurance Name Policy Number Policy [place] Covered Member ID [place] Member ID Guarantor Name 09/01/2022 2 [employer] [place] (MEDICARE SUPPLEMENT) Luz Barajaser [id number] Luz Pantoja Giles 09/02/2022 1 [place] (MEDICARE) Luz Skaggs [id number] Luz Pantoja Giles Notes Date Note Type Note Provider Name and Address Organization Details Recorded Time 01/01/2021 text/html Luz is a 80 year old female here for an evaluation of allergic rhinitis. She complains of a soreness in the left side of the neck that seems to radiate into the ear, post nasal drainage that causes her to gag, and clearing her throat often. She reports getting hoarse often and to the point where people have a hard time understanding her. She does have a history of acid reflux and takes Prilosec. Her main concern is the thick postnasal drainage. She had started on Sudafed but is having more trouble with her 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. BETINA GAMINO III, MD [address] [place] [address], [phone], [facility] 01/01/2021 17:32:20 01/22/2021 text/html Luz returns today in follow up of her modified barium swallow results. Study showed a grossly functional oropharyngeal swallow. No penetration with aspiration with any consistency tested. Very mild pharyngeal coating/residue across consistencies, but cleared with spontaneous subsequent swallows. From RFID ENGINEER/pharyngeal standpoint, patient is safe to continue regular diet and thin liquids. She complains of a soreness in the left side of the neck that seems to radiate into the ear, post nasal drainage that causes her to gag, and clearing her throat often. She reports getting hoarse often and to the point where people have a hard time understanding her. She does have a history of acid reflux and takes Prilosec 20mg daily. Her main concern is the thick postnasal drainage. She continues to clear her throat often which in turn affects her voice. Cough drops seem to help for a short period of time. She has a family history of thyroid dysfunction including her daughter. She has not had a thyroid ultrasound obtained. BETINA GAMINO III, MD [address] [place] [address], [phone], [facility] 01/22/2021 17:04:58 10/08/2021 text/html Luz returns today in follow up of her throat. Prior modified barium swallow study showed a grossly functional oropharyngeal swallow. No penetration with aspiration with any consistency tested. Very mild pharyngeal coating/residue across consistencies, but cleared with spontaneous subsequent swallows. From RFID ENGINEER/pharyngeal standpoint, patient is safe to continue regular diet and thin liquids. She has been evaluated by Dr. Spencer Eubanks and completed an EGD which did show evidence of reflux of stomach acid and bile. He also noticed inflammation of the vocal cords. She complained of a soreness in the left side of the neck that seems to radiate into the ear, post nasal drainage that causes her to gag, and clearing her throat often her last visit with us. She reports getting hoarse often and to the point where people have a hard time understanding her. She does have a history of acid reflux and was prescribed Nexium 40mg which she was to take daily. She continues to clear her throat often which in turn affects her voice. Cough drops seem to help for a short period of time. She has a family history of thyroid dysfunction including her daughter. She did complete ordered thyroid ultrasound dos 01/31/21 which showed the right lobe measuring 3.7 x 1.2 x 1.8cm, and the left lobe measuring 4.2 x 1.2 x 1.6cm. The isthmus was unremarkable. Within the right lobe there was a 3mm hypoechoic nodule in the lower pole which was well-circumscribed and a 9mm lower pole well-circumscribed nodule. Left lobe presented with a 9mm isocheoic nodule with decreased echogenicity peripherally present in the mid polar region which is well-circumscribed. 6mm nodule in the mid polar region and 7mm hypoechoic solid appearing nodule lower pole well-circumscribed wider than tall. 4mm hypoechoic nodule in the lower pole also appreciated. Final impression showed bilateral thyroid nodules most of which are TR level 2. 7mm hypoechoic nodule lower pole on the left TR level 3. 12 months follow up ultrasound was recommended. BETINA GAMINO III, MD [address] [place] [address] [place], [phone], [facility] 10/08/2021 17:10:55 03/04/2022 text/html Luz is visit ing with us today for a f/u on her throat. Luz states that she has completed 5 speech therapy treatments with mild improvement on her symptoms. She still experiences occasional raspiness. Luz has continued to use medication that treats symptoms of acid reflux with some improvement. She does have days where acid reflux is worse than others. BETINA GAMINO III, MD [address] [place] [address], [phone], [facility] 03/04/2022 14:50:14 09/02/2022 text/html Luz returns today in follow up of her muscle tension dysphonia, vocal cord atrophy, and laryngopharyngeal reflux. She has undergone speech therapy with benefit. Her GERD/LPR is being treated with Omeprazole daily along with GERD precautions. Her allergy symptoms have flared up this season which she is treating with Cetirizine, Mucinex with expectorant and did get a steroid injection. She does notice a cough when symptomatic seasonally. She is using Atrovent Nasal spray. She has been recovering from knee replacement surgery which was performed in May 2022. BETINA GAMINO III, MD [address] [place] [address], [phone], [facility] 09/02/2022 16:40:18 OBGyn Episode No OBEpisode recorded.
--- OUTSIDE RECORDS SUMMARY | 2024-11-14 14:50 | XMS_ITS | Encounter Summary ---
Author Organization [employer] ([place], [place], [place], [place]) Address [address] [place] [address] Care Team Providers Care Education Counselor Name Role Phone Ferny Gentile Primary Care Provider [phone] Encounter Details Date Type Department Care Team (Late st Contact Info) Description 12/14/2018 Transcribed Document [facility] [place] [address] ProviderArt MD [address] [place] [id number] Social History Tobacco Use Types Packs/Day [...] Conversion Note - Art ProviderMD - 12/14/2018 2:00 PM CDT Pain Assessment Entered On: 12/14/2018 17:18 EDT Performed On: 12/14/2018 17:00 EDT by Amandeep Martinez RN Intervention Information: traMADol Performed by Amandeep Martinez RN on 12/14/2018 14:23:00 EDT traMADol,50mg Oral Pain Assessment Pain Assessment : Follow-up assessment Pain Scale Used : 0-10 Scale Amandeep Martinez RN - 12/14/2018 17:17 EDT Pain Scale Intensity : 3 Amandeep Martinez RN - 12/14/2018 17:17 EDT Image 4 - Images currently included in the form version of this document have not been included in the text rendition version of the form. documented in this encounter Plan of Treatment Not on file documented as of this encounter Visit Diagnoses Not on filedocumented in this encounter Care Teams Education Counselor Relationship Specialty Start Date End Date Ferny Gentile [address] [place] [address] PCP - General 05/22/22 documented as of this encounter
--- OUTSIDE RECORDS SUMMARY | 2024-11-14 14:50 | XMS_ITS | Encounter Summary ---
Author Organization [employer] ([place], [place], [place], [place]) Address [address] [place] [address] Care Team Providers Care Wedger Machine Name Role Phone Ferny Gentile Primary Care Provider [phone] Encounter Details Date Type Department Care Team (Late st Contact Info) Description 12/14/2018 Transcribed Document [facility] [place] [address] ProviderArt MD [address] [place] [address] Social History Tobacco Use Types Packs/Day [...] 12/14/2018 8:10 AM CDT [facility] Main OR PreOp Summary Primary Physician: MATTHEW BANEGAS MD-ORT Finalized Date/Time: 12/14/18 09:40:09 Pt. Name: UZAIR MADERA /Sex: 1940 Female Med Rec #: [id number] Physician: MATTHEW BANEGAS MD-TITO Financial #: [id number] Pt. Type: I Room/Bed: [facility]/ Admit/Disch: 12/14/18 04:48:00 - Institution: [facility] PreOp Case Times Entry 1 In Preop 12/14/18 05:30:00 Ready for Holding n/a Room Patient Ready for 12/14/18 06:49:00 Surgery Patient Out of Preop 12/14/18 07:27:00 Patient Out of n/a Holding Room Last Modified By: SYDNI MCGREGOR 12/14/18 09:40:09 [facility] PreOp Case Times Audit 12/14/18 09:40:09 City Jailer: ELDERCARA Modifier: [email or web address] <+> 1 Patient Out of Preop 12/14/18 06:49:39 City Jailer: ETIENNE Modifier: [email or web address] <+> 1 Patient Ready for Surgery Finalized By: SYDNI MCGREGOR Document Signatures Signed By: SYDNI MCGREGOR 12/14/18 09:40 documented in this encounter Plan of Treatment Not on file documented as of this encounter Visit Diagnoses Not on filedocumented in this encounter Care Teams Wedger Machine Relationship Specialty Start Date End Date Ferny Gentile [address] [place] [address] PCP - General 05/22/22 documented as of this encounter
--- OUTSIDE RECORDS SUMMARY | 2024-11-14 14:50 | XMS_ITS | Encounter Summary ---
Author Organization [employer] ([place], [place], [place], [place]) Address [address] [place] [address] Care Team Providers Care Corner Cutter Machine Operator Name Role Phone Seferino Ferny Primary Care Provider Encounter Details Date Type Department Care Team (Late st Contact Info) Description 12/15/2018 Transcribed Document [facility] [place] [facility] [place] [address] ProviderArt MD [address] [place] [address] Social History Tobacco Use Types Packs/Day [...] Conversion Note - Art ProviderMD - 12/15/2018 7:10 AM CDT Patient: UZAIR MADERA Age: 78 Years Sex: Female : 1940 Assessment/Plan 1. WBAT, must use walker for 2 weeks post op to reduce the risk of perioperative fracture 2. ok for discharge today with 3. Will get 4 total doses of Lovenox 40mg subQ daily, resume home Coumadin dose 4. Will need PT/INR lab draws VTE Prophylaxis - Medical Enoxaparin 40 mg, SubCutaneous, Inj, [id number], Routine, Start 12/15/18 9:00:00 EDT (MATTHEW BANEGAS) Warfarin 7.5 mg, Oral, Tab, Daily, Routine, Start 12/14/18 18:00:00 EDT (MATTHEW BANEGAS) Sequential Compression Device Start: 12/14/18 10:10:00 EDT, Bilateral, Length: Knee High, Continuous Order (MATTHEW BANEGAS) Subjective Patient is POD #1. Pain is well controlled. No further complaints Vital Signs T: 37.1 ??C TMIN: 36.3 ??C TMAX: 37.1 ??C HR: 87(Monitored) RR: 18 BP: 103/42 SpO2: 90% Oxygen Settings (Last) Oxygen Therapy Mode: Room air (12/15/18 06:14:00) Oxygen Flow Rate: 2 Liter/Min (12/14/18 09:50:00) Intake & Output Totals Last 24 Hours (7a-7a) Input Total: 1078.3333 mL Output Total: 900 mL Balance: 178.3333 mL Physical Exam Dressing clean, dry and intact N/V intact distally Gross motor function for the TA, EHL, gastroc and soleus intact No sign of DVT Medications acetaminophen-HYDROcodone 325 mg-7.5 mg oral tablet, 1 Tab, Oral, Q3H, PRN Benadryl, 25 mg= 1 Tab, Oral, Q4H, PRN Benadryl, 12.5 mg= 0.5 Tab, Oral, At Bedtime, PRN citalopram, 10 mg= 0.5 Tab, Oral, Daily Colace, 100 mg= 1 Cap, Oral, BID Coumadin, 7.5 mg= 1 Tab, Oral, Daily Dulcolax Laxative, 10 mg= 1 Supp, Rectal, 1-Time, PRN ezetimibe, 10 mg= 1 Tab, Oral, At Bedtime flecainide, 100 mg= 1 Tab, Oral, Q12H Lovenox, 40 mg= 0.4 mL, SubCutaneous, Q30VJhi magnesium oxide, 400 mg= 1 Tab, Oral, Daily metoclopramide, 5 mg= 1 mL, IV Push, Q4H, PRN multivitamin, 1 Tab, Oral, Daily Myrbetriq, 50 mg= 2 Tab, Oral, Daily naloxone, 0.1 mg= 0.25 mL, IV Push, Q5Min, PRN Osteo Bi-Flex pt wn, 2 Cap, Oral, Daily Protonix, 40 mg= 1 Tab, Oral, Daily senna, 8.6 mg= 1 Tab, Oral, At Bedtime, PRN Senokot S, 2 Tab, Oral, At Bedtime Sodium Chloride 0.9% intravenous solution 1,000 mL, 1000 mL, IntraVENous Toprol-XL, 12.5 mg= 0.5 Tab, Oral, Daily traMADol, 50 mg= 1 Tab, Oral, Q6H While Awake Tylenol, 1000 mg= 2 Tab, Oral, Q6H, PRN Vitamin D3, 2000 Units= 2 Tab, Oral, Daily Zofran, 4 mg= 2 mL, IV Push, Q8H, PRN Lab Results Test Name Test Result Date/Time Sodium Level 140 mmol/L 12/15/2018 05:15 EDT Potassium Level 4.2 mmol/L 12/15/2018 05:15 EDT Chloride Level 104 mmol/L 12/15/2018 05:15 EDT Carbon Dioxide Level 23 mmol/L 12/15/2018 05:15 EDT Anion Gap 17 12/15/2018 05:15 EDT Glucose Level 104 mg/dL 12/15/2018 05:15 EDT Blood Urea Nitrogen 16 mg/dL 12/15/2018 05:15 EDT Creatinine Level 1.13 mg/dL (High) 12/15/2018 05:15 EDT eGFR 57 mL/min/1.73m2 (Low) 12/15/2018 05:15 EDT eGFR NonAfrican 47 mL/min/1.73m2 (Low) 12/15/2018 05:15 EDT Bun/Creatinine 14.2 12/15/2018 05:15 EDT Calcium Level 7.7 mg/dL (Low) 12/15/2018 05:15 EDT Hgb 9.8 Gram/dL (Low) 12/15/2018 05:15 EDT Hgb 13.1 Gram/dL 12/14/2018 09:43 EDT Hct 29.3 % (Low) 12/15/2018 05:15 EDT Hct 40.0 % 12/14/2018 09:43 EDT PT 10.9 Second(s) 12/15/2018 05:15 EDT INR 1.1 12/15/2018 05:15 EDT Electronically signed by Brina Zamarripa Conversion Assistant Professor Of Philosophy Cerner at 08/18/2022 11:15 AM CDT documented in this encounter Plan of Treatment Not on file documented as of this encounter Visit Diagnoses Not on filedocumented in this encounter Care Teams Corner Cutter Machine Operator Relationship Specialty Start Date End Date Ferny Gentile [address] [place] [address] PCP - General 05/22/22 documented as of this encounter
--- OUTSIDE RECORDS SUMMARY | 2024-11-14 14:50 | XMS_ITS | Encounter Summary ---
Author Organization [employer] ([place], [place], [place], [place]) Address [address] [place] [address] Care Team Providers Care Convex Grinder Name Role Phone Ferny Gentile Primary Care Provider [phone] Encounter Details Date Type Department Care Team (Late st Contact Info) Description 12/14/2018 Transcribed Document [facility] [place] [place] [facility] [place] [address] ProviderArt MD [address] [place] [address] Social History Tobacco Use Types Packs/Day [...] Art ProviderMD - 12/14/2018 8:10 AM CDT [facility] [place] Main [place] PACU Summary Primary Physician: MATTHEW BANEGAS MD-TITO Finalized Date/Time: 12/14/18 10:16:12 Pt. Name: UZAIR MADERA Kit Pereira/Sex: 1940 Female Med Rec #: [id number] Physician: MATTHEW BANEGAS MD-TITO Financial #: [id number] Pt. Type: I Room/Bed: [facility]/ Admit/Disch: 12/14/18 04:48:00 - Institution: [facility] Main OR PACU Case Times Entry 1 In PACU I 12/14/18 09:35:00 Ready for PACU 12/14/18 10:10:00 Discharge Discharge from PACU 12/14/18 10:10:00 I Last Modified By: Michael Ferrer, Omar 12/14/18 10:15:34 [facility] Main OR PACU Acuity Entry 1 Start Time 12/14/18 10:11:00 Stop Time 12/14/18 10:15:00 Acuity Level [facility] PACU Acuity I Last Modified By: Michael Ferrer, Omar 12/14/18 10:15:43 Finalized By: Michael Ferrer, Rn Document Signatures Signed By: Michael Ferrer Rn 12/14/18 10:16 documented in this encounter Plan of Treatment Not on file documented as of this encounter Visit Diagnoses Not on filedocumented in this encounter Care Teams Convex Grinder Relationship Specialty Start Date End Date Seferino Ferny [address] [place] [address] PCP - General 05/22/22 documented as of this encounter
--- OUTSIDE RECORDS SUMMARY | 2024-11-14 14:50 | XMS_ITS | Encounter Summary ---
Author Organization [employer] ([place], [place], [place], [place]) Address [address] [place] [address] Care Team Providers Care Nuclear Plant Equipment Operator Name Role Phone Ferny Gentile Primary Care Provider [phone] Encounter Details Date Type Department Care Team (Late st Contact Info) Description 12/14/2018 Transcribed Document [facility] [place] [address] ProviderArt MD [address] [place] [address] Social History Tobacco Use Types Packs/Day [...] Conversion Note - Art ProviderMD - 12/14/2018 5:00 PM CDT Chart Check - Review Order Profile Entered On: 12/14/2018 18:30 EDT Performed On: 12/14/2018 17:00 EDT by JUAN ANTONIO WHITLEY RN Chart Check Powerplans Initiated/Discontinued as Appropriate : Yes All Active Orders Reviewed : Yes JUAN ANTONIO WHITLEY RN - 12/14/2018 18:30 EDT documented in this encounter Plan of Treatment Not on file documented as of this encounter Visit Diagnoses Not on filedocumented in this encounter Care Teams Nuclear Plant Equipment Operator Relationship Specialty Start Date End Date Ferny Gentile [address] [place] [address] PCP - General 05/22/22 documented as of this encounter
--- OUTSIDE RECORDS SUMMARY | 2024-11-14 14:51 | XMS_ITS | Encounter Summary ---
Author Organization [employer] ([place], [place], [place], [place]) Address [address] [place] [address] Care Team Providers Care Head Of Operation And Logistics Name Role Phone Ferny Gentile Primary Care Provider Encounter Details Date Type Department Care Team (Late st Contact Info) Description 01/18/2022 Outside Orders [facility] Outpatient Physical Therapy [address] [facility] [address] [place] [address] Roverto Hoover MD [address] [place] [address] [address] [place] [address] Other diseases of vocal cords (Primary Dx) Social History Tobacco Use Types Packs/Day Years Used Date Smoking Tobacco: Never Assessed Comments Unknown Sex and Gender Information Value Date Recorded Sex Assigned at Female 10/29/2021 6:07 PM CDT Legal Sex Female 6:07 PM CDT Gender Identity Female 10/29/2021 6:07 PM CDT Sexual Orientation Not on file documented as of this encounter Plan of Treatment Not on file documented as of this encounter Visit Diagnoses Diagnosis Other diseases of vocal cords- Primary documented in this encounter Care Teams Head Of Operation And Logistics Relationship Specialty Start Date End Date Ferny Gentile [address] [place] [address] PCP - General 05/22/22 documented as of this encounter
[2024-11-14 16:12] LABS: Hematocrit 37.8 % (37.0-47.0); Hemoglobin 12.4 g/dL (12.2-16.2); Immature Granulocytes % 0.9 %; Mean Corpuscular HGB Conc 32.8 g/dL (31.8-35.4); Mean Corpuscular Hemoglobin 30.2 pg (27.0-31.2); Mean Corpuscular Volume 92.0 fl (81-99); Nucleated Red Blood Cells % 0 %; Platelet Count 213 K/mm3 (142-424); Red Blood Count 4.11 M/mm3 (4.20-5.40); Red Cell Distribution Width-SD 45.2 fL; White Blood Count 5.7 K/mm3 (4.8-10.8)
[2024-11-14 16:40] LABS: Total Cells Counted 100
[2024-11-14 16:41] LABS: RBC Morphology Normal
[2024-11-14 17:19] LABS: Albumin Level 4.5 g/dl (3.5-5.0); Chloride 100 mmol/L (98-107); Potassium 4.5 mmoL/L (3.5-5.1); Sodium 138 mmol/L (136-145)
[2024-11-14 17:22] LABS: Alanine Aminotransferase 16 U/L (12-78); Albumin/Globulin Ratio 1.7 (1.1-1.8); Alkaline Phosphatase 78 U/L (38-126); Anion Gap 14.5 mEq/L (5-15); Aspartate Amino Transferase 33 U/L (14-36); Bilirubin,Total 0.3 mg/dl (0.2-1.3); Blood Urea Nitrogen 24 mg/dl (7-17); Calcium 9.5 mg/dl (8.4-10.2); Carbon Dioxide 28 mmol/L (22.0-30.0); Creatinine,Serum 1.20 mg/dl (0.52-1.04); Estimated Glomerular Filt Rate 43 ml/min (>60); GFR (African American) 52 ML/MIN (>60); Globulin 2.6 g/dL (1.3-3.2); Glucose 93 mg/dl (74-100); Total Protein,Serum 7.1 g/dl (6.3-8.2)
[2024-11-14 17:53] LABS: C-Reactive Protein 1.7 mg/L (0-4)
== END 2024-11-14 23:59 | disposition home or self-care (01) ==
LOC: LAB 14:48
PROVIDERS: PCP Internal Medicine; Visit Provider Internal Medicine
DX: Z79.899 Other long term (current) drug therapy (principal); M05.79 Rheumatoid arthritis with rheumatoid factor of multiple sites without organ or systems involvement
CPT/HCPCS: 36415; 80053; 85007; 85025; 85027; 85651; 86140

== ENCOUNTER 2024-11-30 13:00 | Outpatient (RCR) | payer MEDICARE, OTHER, SELFPAY ==
--- NOTE | 2024-11-15 07:39 | HMH.PTOPEV ---
PT Outpatient Evaluation Rehab PT Outpatient Evaluation Start: 11/14/24 15:15 Freq: Status: Active Protocol: Document 11/14/24 15:15 REZA (Rec: 11/14/24 15:50 REZA [email or web address]) E-signed By Gilda Freedman, PT Outpatient Therapy Subjective History Subjective History This is an initial PT evaluation for 84 y/o female, Luz Skaggs, who presents to PT with referral for imbalance. Pt reports her balance is bad on uneven ground. Pt reports 1 fall in the past 30 days. Pt reports she uses a cane for ambulating community distances. Pt reports impaired endurance as well. Pt denies any neuropathy symptoms. Pt reports she can negotiate stairs with HRs only. Pt still drives. Chief complaint: Feeling unsteady on even and uneven surfaces when walking. PMH: hypertension, hyperlipidemia, paroxysmal 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, combined systolic and diastolic congestive heart failure, osteoporosis, history of compression fractures of the spine, atrophic vaginitis, recurrent UTIs, breast cancer, status post pacemaker, allergic rhinitis, obstructive sleep apnea treated with CPAP, degenerative arthritis, and GERD Pt's goal for PT: Feel more secure with my balance New diagnosis of No cancer in past 12 months? Chief Complaint Gives out/Unstable,Weakness Prior Functional None Limitations Current Functional Recreation Activity,Walking,Stairs,Balance Limitations Symptom Description Constant but Variable Hip/Knee Eval MMT bilateral Hip Flexion Strength 4- Good- Grade Hip Abduction 4- Good- Strength Grade Hip Adduction 4- Good- Strength Grade Hip Extension 4- Good- Strength Grade Knee Extension 4 Good Strength Grade Knee Flexion 4 Good Strength Grade Balance Eval Gait/Posture Asssessment General Gait Antalgic Gait,Wide Based Gait Observation Assistive Devices None / NA Level of Transfer Standby Assistance Assist Timed Up and Go Test 1. Is the Timed Up yes and Go test result > or = to 12 seconds? Rhomberg Feet Together/Eyes pass open/Stable Surface Feet Together/Eyes pass Closed/Stable Surface Feet Together/Eyes fail open/Unstable Surface Feet Together/Eyes fail Closed/Unstable Surface Dynamic Gait Index Test Protocol Gait Level Surface Mild Impairment Query Text: Instructions: Walk at your normal speed from here to the next thelma (20'). Grading: Thelma the lowest category that applies. Change in Gait Speed Moderate Impairment Query Text: Instructions: Begin walking at your normal pace (for 5') , when I tell you go , walk as fast as you can (for 5'). When I tell you slow , walk as slowly as you can ( for 5'). Grading: Thelma the lowest category that applies. Gait with Horizontal Moderate Impairment Head Turns Query Text: Instructions: Begin walking at your normal pace. When I tell you to look right , keep walking straight, but turn you head to the right. Keep looking to the right unit I tell you look left , then keep walking straight and turn your head to the left. Keep your head to the left until I tell you look straight , then keep walking straight, but return you head to the center. Grading: Thelma the lowest category that applies. Gait with Vertical Moderate Impairment Head Turns Query Text: Instructions: Begin walking at your normal pace. When I tell you to look up , keep walking staight, but tip your head up. Keep looking up until I tell you to look down , then keep walking straight and tip your head down. Keep your head down until I tell you look straight , then keep walking straight, but return your head to the center. Grading: Thelma the lowest category that applies. Gait and Pivot Turn Moderate Impairment Query Text: Instructions: Begin walking at your normal pace. When I tell you turn and stop , turn as quickly as you can to face the opposite direction and stop. Grading: Thelma the lowest category that applies. Step Over Obstacle Moderate Impairment Query Text: Instructions: Begin walking at your normal speed. When you come to the shoebox, step over it, not around it and keep walking. Grading: Thelma the lowest category that applies. Step Around Mild Impairment Obstacles Query Text: Instructions: Begin walking at normal speed. When you come to the first cone (about 6' away) , walk around the right side of it. When you come to the second cone (6' past first cone), walk around it to the left. Grading: Thelma the lowest category that applies. Steps Moderate Impairment Query Text: Instructions: Walk up these stairs as you would at home. At the top, turn around and walk down . Grading: Thelma the lowest category that applies. Scoring Dynamic Gait Index 10 Score Lower Extremity Functional Index Activities Today, do you or would you have any difficulty at all with: a.Any of your usual Moderate difficulty work, housework or school activities b. Your usual Moderate difficulty hobbies, recreational or sporting activities c. Getting into or No difficulty out of the bath d. Walking between A little bit of difficulty rooms e. Putting on your Moderate difficulty shoes or socks f. Squatting Quite a bit of difficulty g. Lifting an object Moderate difficulty , like a bag of groceries from the floor h. Performing light Moderate difficulty activities around your home i. Performing heavy Quite a bit of difficulty activities around your home j. Getting into or Moderate difficulty out of a car k. Walking 2 blocks Quite a bit of difficulty l. Walking a mile Extreme difficulty or unable to perform activity m. Going up or down Quite a bit of difficulty 10 stairs (about 1 flight of stairs) n. Standing for 1 Quite a bit of difficulty hour o. Sitting for 1 No difficulty hour p. Running on even Moderate difficulty ground q. Running on uneven Extreme difficulty or unable to perform activity ground r. Making sharp Extreme difficulty or unable to perform activity turns while running fast s. Hopping Extreme difficulty or unable to perform activity t. Rolling over in Moderate difficulty bed LEFI Score Lower Extremity 32 Functional Index Score Miscellaneous Dx PT Eval Objective Objective TU seconds no AD. 5xSTS: 14 seconds DGI: 10 Miscellaneous Goals Short Term Goals In 4 weeks, pt will: 1) Verbalize IND with HEP 2) Improve BLE strength by 1/5 grade globally to improve BLE functioning. 3) Tolerate one mod intensity endurance task for 10 minutes (ex: bike). 4) Perform TUG test in 12 seconds without AD or LOB 5) Improve DGI score to 12 to improve safety with ambulation. 6) Verbalize feeling at least 40% improved since IE. 7) Improve LEFS score to 35/80 8) Stand tandem on EVEN surface for 10 seconds without UE support. Set Up Operator Goals In 8 weeks, pt will: 1) Verbalize at least 80% adherence to HEP 2) Improve BLE strength to 5/5 BLE 3) Tolerate one mod intensity endurance task for 15 minutes (ex: bike) 4) Perform TUG test in 10 seconds with LRAD 5) Improve DGI score to 14 to improve safety with ambulation. 6) Verbalize feeling at least 90% improved since IE. 7) Improve LEFS score to 40/80 to improve BLE functioning. 8) Negotiate 12 6 stair steps with HRs to improve community navigation. 9) Pass all rhomberg sections to improve safety wit static standing balance. 10) Stand tandem on UNEVEN surface for 10 seconds without UE support. Outpatient Therapy Assessment Impairments Problems/ Impaired Strength,Impaired Endurance,Impaired Transfers Impairmments ,Impaired Gait Pattern,Impaired Walking,Impaired Standing,Impaired Lifting,Impaired Incline Stepping, Impaired Stepping on Uneven Surface,Impaired Squatting, Impaired Recreational Activities,Impaired Balance, Impaired DGI Score,Impaired TUG Time Prognosis Rehab Potential Good Comment D/t subjective complaints and FOM objectives, pt is at a increased risk for falls and would benefit from skilled OP PT to address deficits and improve safety. Clinical Impression Consistent with Yes Diagnosis Outpatient Therapy Plan of Care Treatment Plan May Include Therapeutic Exercise Yes Including Home Exercise Program Neuromuscular Re- Yes education Therapeutic Yes Activities to Return to Previous Functional/Work Level Gait Training Yes ADL/Self Care Yes Education Group Therapy for Yes Medicare Eval/Re-Eval Yes Aquatic Therapy Yes Frequency Times per week 2x weekly Duration Number of Weeks 6-8 weeks Addendums This patient is a No candidate for social or vocational rehab ? Patient/Guardian Yes verbally acknowledges understanding of treatment program and consents to further treatment? Patient/Guardian Yes verbally acknowledges understanding of diagnosis, prognosis and goals for treatment? Eval Complexity PT Charges 05889 - Moderate Complexity Shoulder/Elbow Eval Shoulder Objective Measurements Elbow Objective Measurements PHYSICIAN CERTIFICATION: I certify the specified therapy services for Luz Skaggs are required, authorized, and reviewed every 30 days.
== END 2024-11-30 23:59 | disposition home or self-care (01) ==
LOC: PT 13:00
PROVIDERS: PCP Internal Medicine; Visit Provider Internal Medicine
DX: R26.89 Other abnormalities of gait and mobility (principal); Z91.81 History of falling
CPT/HCPCS: 97110; 97162

== ENCOUNTER 2024-12-30 14:00 | Outpatient (RCR) | payer MEDICARE, OTHER, SELFPAY | END 2024-12-30 23:59 | disposition home or self-care (01) | LOC: PT 14:00 | PROVIDERS: PCP Internal Medicine; Visit Provider Internal Medicine | DX: R26.89 Other abnormalities of gait and mobility (principal); Z91.81 History of falling | CPT/HCPCS: 97110; 97530 ==

== ENCOUNTER 2025-01-05 16:57 | Outpatient (CLI) | payer MEDICARE, OTHER, SELFPAY ==
--- OUTSIDE RECORDS SUMMARY | 2019-07-05 14:42 | XMS_ITS | Encounter Summary ---
[facility] Address [address] [place] [address] Care Team Providers Care Stock Sheets Cleaner Inspector Name Role Phone Ferny Gentile MD Primary Care Provider [phone] Encounter Details Date Type Department Care Team (Late st Contact Info) Description 07/05/2019 1:42 PM EST Hospital Encounter [facility] PULMONARY & CRITICAL CARE MEDICINE [address] [place] [address] Social History Tobacco Use Types [...] Care Team (Late st Contact Info) Description 01/12/2025 11:30 AM EDT Office Visit [facility] CARDIOLOGY [address] [facility] [place] [address] Wjociech Flores MD [address] [facility] [address] [place] [id number] 02/21/2025 10:45 AM EDT Office Visit [facility] C[facility] [address] [facility] [address] [place] [address] Yon Govea MD [address] [facility] [address] [place] [address] 02/28/2025 11:00 AM EDT Appointment [facility] [address] [facility] [place] [address] 02/28/2025 1:45 PM EDT Office Visit [facility] RHE[facility]OLOGY 330 [facility] [address] [place] [address] Yue Pandey, SUPERVISOR COMPUTER OPERATIONS [address] [facility] [address] [place], [place] [id number] 06/30/2025 11:30 AM EST Office Visit [facility] 330 [facility] [address] [place] [address] David Bernstein MD [address] [facility] [address] [place], [place] [phone] Pending Results Name Type Priority Associated Diagnoses [...] documented as of this encounter Care Teams Stock Sheets Cleaner Inspector Relationship Specialty Start Date End Date Ferny Gentile MD [address] [facility] [address] [place] [address] PCP - General 06/11/15 documented as of this encounter
--- OUTSIDE RECORDS SUMMARY | 2024-10-28 10:00 | XMS_ITS | Encounter Summary ---
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 Role Phone Ferny Gentile MD Primary Care Provider [phone] Reason for Referral * Physical Therapy (Routine) - Closed Specialty Diagnoses / Procedures Referred By Contac t Referred To Contact Physical Therapy Diagnoses Imbalance At high risk for falls Procedures MO OFFICE/OUTPATIENT NEW MODERATE MDM 45 MINUTES David Bernstein MD [address] [address] Phone: tel: fax: [facility] [address] [place] [address] Phone: tel: fax: Referral ID Status Reason Start Date Expiration Date V isits Requested Visits Authorized [id number] Closed Specialty Services Required 10/28/2024 01/27/2026 1 1 Scheduling Instructions Add Scheduling Instructions here Reason for Visit * Reason Comments Rheumatoid Arthritis Encounter Details Date Type Department Care Team (Late st Contact Info) Description 10/28/2024 10:00 AM EDT Office Visit [facility] [address] [phone] David Bernstein MD [address] [place] [id number] Rheumatoid arthritis involving multiple sites with positive rheumatoid factor (Primary Dx); High risk medication use; Imbalance; At high risk for falls Social History Tobacco Use Types Packs/Day Years Used Date Smoking Tobacco: Never Passive Smoke Exposure: Past Smokeless Tobacco: Never Tobacco Cessation:Counseling Given: Not Answered Alcohol Use Standard Drinks/Week Comments Yes 0 [...] on file documented as of this encounter Last Filed Vital Signs Vital Sign Reading Time Taken Comments Blood Pressure 126/74 10/28/2024 9:54 AM EDT Pulse 68 10/28/2024 9:54 AM EDT Temperature 35.9 C (96.7 F) 10/28/2024 9:54 AM EDT Respiratory Rate - - Oxygen Saturation - - Inhaled Oxygen Concentration - - Weight 81.3 kg (179 lb 3.2 oz) 10/28/2024 9:54 A M EDT Height 162.6 cm (5' 4 ) 10/28/2024 9:54 AM EDT Body Mass Index 30.76 10/28/2024 9:54 AM EDT documented in this encounter Patient Instructions * Patient Instructions* David Bernstein MD - 10/28/2024 10:00 AM EDT Methotrexate Tablets What is this medication? METHOTREXATE (METH oh TREX ate) treats autoimmune conditions, such as arthritis and psoriasis. It works by decreasing inflammation, which can reduce pain and prevent long-term injury to the joints and skin. It may also be used to treat some types of cancer. It works by slowing down the growth of cancer cells. This medicine may be used for other purposes; ask your health care provider or pharmacist if you have questions. COMMON BRAND NAME(S): Rheumatrex, Trexall What should I tell my care team before I take this medication? They need to know if you have any of these conditions: Dehydration Diabetes Fluid in the stomach area or lungs Frequently drink alcohol Having surgery, including dental surgery High cholesterol Immune system problems Inflammatory bowel disease, such as ulcerative colitis Kidney disease Liver disease Low blood cell levels (white cells, red cells, and platelets) Lung disease Recent or ongoing radiation Recent or upcoming vaccine Stomach ulcers, other stomach or intestine problems An unusual or allergic reaction to methotrexate, other medications, foods, dyes, or preservatives or trying to get How should I use this medication? Take this medication by mouth with water. Take it as directed on the prescription label. Do not take extra. Keep taking this medication until your care team tells you to stop. Know why you are taking this medication and how you should take it. To treat conditions such as arthritis and psoriasis, this medication is taken ONCE A WEEK as a single dose or divided into 3 smaller doses taken 12 hours apart (do not take more than 3 doses 12 hours apart each week). This medication is NEVER taken daily to treat conditions other than cancer. Taking this medication more often than directed can cause serious side effects, even . Talk to your care team about why you are taking this medication, how often you will take it, and what your dose is. Ask your care team to put thereason you take this medication on the prescription. If you take this medication ONCE A WEEK, choose a day of the week before you start. Ask your pharmacist to include the day of the week on the label. Avoid Thursday , which could be misread as Morning . Handling this medication may be harmful. Talk to your care team about how to handle this medication. Special instructions may apply. Talk to your care team about the use of this medication in children. While it may be prescribed forselected conditions, precautions do apply. Overdosage: If you think you have taken too much of this medicine contact a poison control center or emergency room at once. NOTE: This medicine is only for you. Do not share this medicine with others. What if I miss a dose? If you miss a dose, talk with your care team. Do not take double or extra doses. What may interact with this medication? Do not take this medication with any of the following: Acitretin Live virus vaccines Probenecid This medication may also interact with the following: Alcohol Aspirin and aspirin-like medications Certain antibiotics, such as penicillin, neomycin, sulfamethoxazole; trimethoprim Certain medications for stomach problems, such as lansoprazole, omeprazole, pantoprazole Clozapine Cyclosporine Dapsone Folic acid Foscarnet NSAIDs, medications for pain and inflammation, such as ibuprofen or naproxen Phenytoin Pyrimethamine Steroid medications, such as prednisone or cortisone Tacrolimus Theophylline This list may not describe all possible interactions. Give your health care provider a list of all the medicines, herbs, non-prescription drugs, or dietary supplements you use. Also tell them if you smoke, drink alcohol, or use illegal drugs. Some items may interact with your medicine. What should I watch for while using this medication? Visit your care team for regular checks on your progress. It may be some time before you see the benefit from this medication. You may need blood work done while you are taking this medication. If your care team has also prescribed folic acid, they may instruct you to skip your folic acid dose on the day you take methotrexate. This medication can make you more sensitive to the sun. Keep out of the sun. If you cannot avoid being in the sun, wear protective clothing and sunscreen. Do not use sun lamps, tanning beds, or tanning booths. Check with your care team if you have severe diarrhea, nausea, and vomiting, or if you sweat a lot.The loss of too much body fluid may make it dangerous for you to take this medication. This medication may increase your risk of getting an infection. Call your care team for advice if you get a fever, chills, sore throat, or other symptoms of a cold or flu. Do not treat yourself. Try to avoid being around people who are sick. Talk to your care team about your risk of cancer. You may be more at risk for certain types of cancers if you take this medication. Talk to your care team if you or your partner may be . Serious defects can occur if you take this medication during and for 6 months after the last dose. You will need a negative test before starting this medication. Contraception is recommended while taking this medication and for 6 months after the last dose. Your care team can help you find the option that works for you. If your partner can get , use a condom during sex while taking this medication and for 3 months after the last dose. Do not breastfeed while taking this medication and for 1 week after the last dose. This medication may cause infertility. Talk to your care team if you are concerned about your fertility. What side effects may I notice from receiving this medication? Side effects that you should report to your care team as soon as possible: Allergic reactions--skin rash, itching, hives, swelling of the face, lips, tongue, or throat Dry cough, shortness of breath or trouble breathing Infection--fever, chills, cough, sore throat, wounds that don't heal, pain or trouble when passing urine, general feeling of discomfort or being unwell Kidney injury--decrease in the amount of urine, swelling of the ankles, hands, or feet Liver injury--right upper belly pain, loss of appetite, nausea, light-colored stool, dark yellow orbrown urine, yellowing skin or eyes, unusual weakness or fatigue Low red blood cell level--unusual weakness or fatigue, dizziness, headache, trouble breathing Pain, tingling, or numbness in the hands or feet, muscle weakness, change in vision, confusion or trouble speaking, loss of balance or coordination, trouble walking, seizures Redness, blistering, peeling, or loosening of the skin, including inside the mouth Stomach bleeding--bloody or black, tar-like stools, vomiting blood or brown material that looks like coffee grounds Stomach pain that is severe, does not away, or gets worse Unusual bruising or bleeding Side effects that usually do not require medical attention (report these to your care team if they continue or are bothersome): Diarrhea Dizziness Hair loss Nausea Pain, redness, or swelling with sores inside the mouth or throat Skin reactions on sun-exposed areas Vomiting This list may not describe all possible side effects. Call your doctor for medical advice about side effects. You may report side effects to FDA at 8-507-VBO-2846. Where should I keep my medication? Keep out of the reach of children and pets. Store at room temperature between 20 and 25 degrees C (68 and 77 degrees F). Protect from light. Keep the container tightly closed. Get rid of any unused medication after the expiration date. To get rid of medications that are no longer needed or have : Take the medication to a medication take-back program. Check with your pharmacy or law enforcement to find a location. If you cannot return the medication, ask your pharmacist or care team how to get rid of this medication safely. NOTE: This sheet is a summary. It may not cover all possible information. If you have questions about this medicine, talk to your doctor, pharmacist, or health care provider. ?? 2023 Elsevier/Gold Standard (2023-06-28 00:00:00) documented in this encounter Progress Notes * David Bernstein MD - 10/28/2024 10:00 AM EDT Images from the original note were not included. Office Follow Up Date: 10/28/2024 Patient Name: Luz Skaggs Date of : 1940 Referring Physician: No ref. provider found Chief Complaint: Chief Complaint Patient presents with ??? Rheumatoid Arthritis History of Present Illness: Luz Skaggs is a 84 y.o. female with history of 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, pacemaker, DVT, osteoarthritis, status post bilateral knee replacement and left hip replacement, osteoporosis with history of vertebral fracture status post kyphoplasty who is here today in follow-up for rheumatoid arthritis History: She reports pain and swelling particularly in the MCP joints of the right hand ongoing since mid 2023 and gradually getting worse. She reports morning stiffness for 3 hours. She notes worsening deformities in the hands. There is family history of rheumatoid in her grandmother. She has used Tylenol,heat and hemp oil for the pain and stiffness. She generally avoids NSAIDs with her chronic anticoagulation for 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 and renal insufficiency. Interim 10/28/2024: She cannot tell much difference after 3 months of methotrexate. No serious infection. No side effect. Still some swelling in the right second third MCP joints, but no tender joints. Occasional aching and stiffness in the neck and back. She notes kyphosis of the cervical spine. Co ntinues on alendronate to treat osteoporosis. History of Present Illness Subjective Review of Systems: Review of Systems Constitutional: Positive for fatigue. Negative for chills, fever and unexpected weight loss. HENT: Positive for congestion, postnasal drip, rhinorrhea, sneezing and voice change. Negative for mouth sores, sinus pressure and sore throat. Eyes: Positive for blurred vision, photophobia and itching. Negative for pain and redness. Respiratory: Negative for cough and shortness of breath. Cardiovascular: Negative for chest pain. Gastrointestinal: Positive for diarrhea. Negative for abdominal pain, blood in stool, nausea, vomiting and GERD. Endocrine: Negative for polydipsia and polyuria. Genitourinary: Negative for dysuria, genital sores and hematuria. Musculoskeletal: Positive for arthralgias, gait problem and neck stiffness. Negative for back pain,joint swelling, myalgias and neck pain. Skin: Negative for rash and bruise. Allergic/Immunologic: Positive for environmental allergies. Neurological: Positive for headache. Negative for seizures, weakness, numbness and memory problem. Hematological: Negative for adenopathy. Does not bruise/bleed easily. Psychiatric/Behavioral: Positive for sleep disturbance. Negative for depressed mood. The patient isnot nervous/anxious. Past Medical History: Past Medical History: Diagnosis Date ??? Allergic rhinitis ??? Arrhythmia PVC'S Holter Jan 2015-=9% PVC [place] ??? Arthritis ??? Atrial fibrillation PAF per event recorder April 2015- CHADs-VASc =2 ??? Breast injury 05/2016 PT FELL & FRACTURED RT RIBS & BRUISED RT BREAST ??? Diverticulitis ??? Drug therapy 1991 ??? GERD (gastroesophageal reflux disease) ??? H/O chest x-ray 06/01/2015 No acute radiographic chest abnormality. No change from prior chest x-ray on March 23, 2015 given differing technique ??? H/O chest x-ray 03/23/2015 S/P left mastectomy with heart enlarged and no acute parenchymal disease ??? H/O echocardiogram 01/23/2015 Mild concentric LVG. Est EF 55-60%. E to A reveral in mitral valve flow pattern sugg of diastolic dysfunction. Mild aortuc cusp sclerosis. Mild to mod aortic reg. No mitral valve prolapse. No pulmonary htn. a trivial pericardal efffusion visualized. No dilation of aortic root. Venous system normal ??? History of deep venous thrombosis ??? History of PFTs 06/01/2015 No obstruction or restriction. Low MVV. No air trapping or hyperinflation. Low DLCO howver likely underestimated due to IVC less than 85% of VC ??? History of transfusion after hysterectomy ??? Hyperlipidemia Intolerant to statin therapy ??? Neoplasm of breast, female, malignant 1991 LEFT ??? OSIRIS on CPAP CPAP AT HOME. SETTINGS 6-16 AUTO PAP; WILL BRING CPAP MASK AND TUBING. ??? PVC (premature ventricular contraction) ??? 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 Valvular disease Echo January 2015: EF 55-605 mild to moderate Aortic Regurgitation Diastolic dysfunction ??? Wears prescription eyeglasses Past Surgical History: Past Surgical History: Procedure Laterality Date ??? AUGMENTATION MAMMAPLASTY Left 1992 ??? BACK SURGERY 12/15/2017 ??? BREAST AUGMENTATION Left ??? BREAST BIOPSY Right 08/2015 ??? BREAST EXCISIONAL BIOPSY Left 1991 ??? CARDIAC ELECTROPHYSIOLOGY PROCEDURE N/A 12/16/2016 Procedure: Ablation PVC, Hold Flecainide for 5 days prior; Surgeon: Kenrick Palaicos DO; Location: [facility] LOCATION; Service: ??? CARDIAC ELECTROPHYSIOLOGY PROCEDURE N/A 12/14/2019 Procedure: Device Implant- dual chamber pacemaker. Hold coumadin x 2 days.; Surgeon: Barry Hennessy MD; Location: [facility] INVASIVE LOCATION; Service: Cardiology; Laterality: N/A; ??? CATARACT EXTRACTION ??? CHOLECYSTECTOMY ??? COLONOSCOPY 2012 ??? EYE SURGERY cataract ??? HAND SURGERY Left ??? HYSTERECTOMY 1987 ??? KYPHOPLASTY ??? MASTECTOMY Left 1991 ??? OOPHORECTOMY 1987 ??? REDUCTION MAMMAPLASTY Right REDUCTION & LIFT ??? REPLACEMENT TOTAL KNEE Bilateral ??? TONSILLECTOMY ??? TOTAL HIP ARTHROPLASTY Left Family History: Family History Problem Relation Age of Onset ??? Heart disease Mother ??? Arthritis Mother ??? Heart failure Mother ??? COPD Mother ??? Dementia Mother ??? Cancer Mother ??? Osteoporosis Mother ??? Heart failure Father ??? Dementia Father ??? Kidney failure Father ??? No Known Problems Sister ??? Osteoporosis Daughter ??? Arthritis Daughter ??? Sebastian's thyroiditis Daughter ??? Thyroid cancer Daughter ??? Hemochromatosis Daughter ??? Breast cancer Neg Hx ??? Endometrial cancer Neg Hx ??? Ovarian cancer Neg Hx Social History: Social History Socioeconomic History ??? Marital status: Tobacco Use ??? Smoking status: Never Passive exposure: Past ??? Smokeless tobacco: Never Vaping Use ??? Vaping status: Never Used Substance and Sexual Activity ??? Alcohol use: Yes Comment: occasional ??? Drug use: Never ??? Sexual activity: Defer Medications: Current Outpatient Medications: ??? acetaminophen (TYLENOL) 500 MG tablet, Take 1 tablet by mouth Every 8 (Eight) Hours As Needed.,Disp: , Rfl: ??? alendronate (FOSAMAX) 70 MG tablet, Take 1 tablet by mouth 1 (One) Time Per Week., Disp: , Rfl: ??? cetirizine (zyrTEC) 10 MG tablet, Take 1 tablet by mouth Daily., Disp: 30 tablet, Rfl: 1 ??? Cholecalciferol (VITAMIN D-3 PO), Take 1 tablet by mouth Daily., Disp: , Rfl: ??? coenzyme Q10 100 MG capsule, Take 2 capsules by mouth Daily., Disp: , Rfl: ??? colestipol (COLESTID) 1 g tablet, Take 1 tablet by mouth Daily., Disp: , Rfl: ??? dofetilide (TIKOSYN) 125 MCG capsule, Take 1 capsule by mouth Every 12 (Twelve) Hours., Disp: 180 capsule, Rfl: 3 ??? ezetimibe (ZETIA) 10 MG tablet, Take 1 tablet by mouth Daily., Disp: , Rfl: ??? folic acid (FOLVITE) 1 MG tablet, Take 1 tablet by mouth Daily., Disp: 90 tablet, Rfl: 3 ??? furosemide (LASIX) 20 MG tablet, Take 2 tablets by mouth 3 (Three) Times a Week. And an additional one tablet as needed for weight gain >2 lbs in 24 hours, Disp: 90 tablet, Rfl: 3 ??? guaiFENesin (MUCINEX) 600 MG 12 hr tablet, Take 2 tablets by mouth As Needed for Cough., Disp: , Rfl: ??? Inclisiran Sodium 284 MG/1.5ML solution prefilled syringe, Inject 1.5 mL under the skin into the appropriate area as directed Every 6 (Six) Months., Disp: , Rfl: ??? ipratropium (ATROVENT) 0.06 % nasal spray, Administer 2 sprays into the nostril(s) as directed by provider 2 (Two) Times a Day As Needed., Disp: , Rfl: ??? lactobacillus acidophilus (RISAQUAD) capsule capsule, Take 1 capsule by mouth Daily., Disp: 1 capsule, Rfl: 1 ??? methotrexate 2.5 MG tablet, TAKE 6 TABLETS BY MOUTH ONCE A WEEK, Disp: 72 tablet, Rfl: 0 ??? metoprolol succinate XL (Toprol XL) 50 MG 24 hr tablet, Take 1 tablet by mouth Daily., Disp: 90tablet, Rfl: 1 ??? Myrbetriq 50 MG tablet sustained-release 24 hour 24 hr tablet, Take 25 mg by mouth Daily., Disp: , Rfl: ??? pantoprazole (PROTONIX) 40 MG EC tablet, Take 1 tablet by mouth Daily., Disp: 60 tablet, Rfl: 2 ??? Peppermint Oil (IBGARD PO), Take 20 drops by mouth Daily., Disp: , Rfl: ??? warfarin (COUMADIN) 5 MG tablet, TAKE 1 TO 1 AND 1/2 TABLETS EVERY DAY OR DIRECTED BY THE ANTICOAGULATION CLINIC, Disp: 135 tablet, Rfl: 2 Allergies: Allergies Allergen Reactions ??? Oxycodone-Acetaminophen Headache ??? Pravastatin Myalgia MUSCLE WEAKNESS ??? Sulfamethoxazole-Trimethoprim Rash Objective Vital Signs: Vitals: 10/28/24 0954 BP: 126/74 BP Location: Right arm Patient Position: Sitting Cuff Size: Adult Pulse: 68 Temp: 96.7 ??F (35.9 ??C) Weight: 81.3 kg (179 lb 3.2 oz) Height: 162.6 cm (64 ) PainSc: 7 Body mass index is 30.76 kg/m??. Physical Exam: Physical Exam MUSCULOSKELETAL: Positive synovitis right hand second third fourth MCP joints with slight ulnar drift digits, nontender No other peripheral synovitis [place] Lizz nodes scattered throughout the hands Squaring bilateral CMC joints No rheumatoid nodules or tophi Good range of motion elbows and shoulders Status post bilateral knee replacement. No warmth or effusion knees Complete joint exam was performed including the MCPs, PIPs, DIPs of the hands, wrists, elbows, shoulders, hips, knees and ankles. No soft tissue swelling or tenderness is present except as above. General: The patient is well-developed and well nourished. Cooperative, alert and oriented. Affect is normal. Hydration appears normal. HEENT: Normocephalic and atraumatic. Lids and conjunctiva are normal. Pupils are equal and sclera are clear. Oropharynx is clear NECK neck is supple without adenopathy, masses or thyromegaly. CARDIOVASCULAR: Regular rate and rhythm. No murmurs, rubs or gallops LUNGS: Effort is normal. Lungs are clear bilateral ABDOMEN: Not examined EXTREMITIES: Peripheral pulses are intact. No clubbing. SKIN: No rashes. No subcutaneous nodules. No digital ulcers. No sclerodactyly. NEUROLOGIC: Gait is normal. Strength testing is normal. No focal neurologic deficits Results Review: Labs: Lab Results Component Value Date GLUCOSE 98 06/15/2024 BUN 16 06/15/2024 CREATININE 1.16 (H) 06/15/2024 EGFR 47.2 (L) 06/15/2024 BCR 13.8 06/15/2024 K 4.6 06/15/2024 CO2 23.4 06/15/2024 CALCIUM 9.7 06/15/2024 ALBUMIN 4.4 06/15/2024 BILITOT 0.5 06/15/2024 AST 28 06/15/2024 ALT 15 06/15/2024 Lab Results Component Value Date WBC 6.39 06/15/2024 HGB 13.9 06/15/2024 HCT 41.1 06/15/2024 MCV 89.7 06/15/2024 PLT 219 06/15/2024 Lab Results Component Value Date SEDRATE 8 06/15/2024 Lab Results Component Value Date CRP <0.30 06/15/2024 Lab Results Component Value Date QUANTIFERO Incubation performed. 06/15/2024 QUANTIFERO Comment 06/15/2024 QUANTITB1 0.04 06/15/2024 QUANTITB2 0.03 06/15/2024 QUANTIFERN 0.04 06/15/2024 QUANTIFERM >10.00 06/15/2024 QUANTITBGLDP Negative 06/15/2024 No results found for: RF Lab Results Component Value Date HEPBSAG Non-Reactive 06/15/2024 HEPAIGM Non-Reactive 06/15/2024 HEPBIGMCORE Non-Reactive 06/15/2024 HEPCVIRUSABY Non-Reactive 06/15/2024 Procedures Assessment / Plan 1. Rheumatoid arthritis involving multiple sites with positive rheumatoid factor 2. High risk medication use 3. Age related osteoporosis, unspecified pathological fracture presence 4. Fracture of vertebra due to osteoporosis, sequela 5. Generalized osteoarthrosis, involving multiple sites 6. History of bilateral knee replacement 7. History of left hip replacement 8. Renal insufficiency 9. Atrial fibrillation, unspecified type 10. Presence of cardiac pacemaker 11. Other fatigue -Rheumatoid arthritis, seropositive -Specialists: [facility], Dr. Bryant, Dr. Granados, cardiology Dr. Flores -Labs [facility] 03/03/2024: +rheumatoid factor 14.2, +ADAM 1:40, elevated uric acid 8.1 -Labs 06/15/2024: RF/CCP antibody negative, ADAM negative, sed rate 8, uric acid 7.3 -Avoids NSAIDs with renal insufficiency on chronic coumadin for 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 -Avoid Fitz inhibitors with her history of breast cancer, DVT -The patient has evidence of rheumatoid arthritis with synovitis right hand second/third MCP, with positive rheumatoid factor -She has widespread osteoarthritis. Avoids NSAIDs with CKD and chronic anticoagulation -ADAM weakly positive, but no features of lupus or connective tissue disease. 15% of the population at her age is ADAM positive. Suspect false positive. Repeat ADAM negative -Uric acid elevated, but no history or suggestion of gout clinically Overall low disease activity from RA. Swollen joint count 2. Tender joint count 0. Patient global 3. Provider global 3. CDAI 8 - Labs 09/15/2024 reviewed and stable - Update bilateral hand x-rays She is uncertain methotrexate has helped her right hand MCP joints, but no side effects -Continue methotrexate 15 mg once weekly along with daily folic acid for RA and discussed can be 6 months to be fully effective. We discussed the difference RA and OA of the joints. I think her present scattered arthralgias are from OA -Okay to continue as needed Tylenol and topical hemp oil -Will try to avoid steroids with her osteoporosis -Avoid NSAIDs with CKD and chronic anticoagulation -Handout provided on osteoarthritis, rheumatoid arthritis and methotrexate -Discussed need for labs every 2 months CBC CMP sed rate CRP. Standing order provided Return to clinic 4 months. Her daughter is present throughout the discussion and exam - High risk medication - Immunosuppression due to medication Methotrexate Hepatitis panel and QTB negative - 06/15/2024 Risk of methotrexate discussed including but are not limited to severe liver damage so can be fatal, the possible need for liver biopsy, bone marrow suppression that can lead to dangerously low bloodcounts, GI side effects including mouth sores and diarrhea, fatigue, and the rare risk of severe pul monary complications. There should be no alcohol consumed with methotrexate. Methotrexate can causesevere abnormalities whether the mother or father is taking the medication, and thus must be avoided if is a possibility. Strict control recommended. All medication is to be taken 1 day a week only. The need for Q 8-12-week labs and the need for folic acid supplement were discussed. - Osteoporosis - History of vertebral fracture DEXA [facility] 12/22/2023: Osteoporosis right forearm, osteopenia right hip, normal bone density spine On alendronate managed by her PCP Continue calcium vitamin D and weightbearing exercise Monitor bone density every 2 years - Generalized osteoarthritis - Status post bilateral knee replacement, left hip replacement Avoid NSAIDs with CKD limiting treatment options -Chronic renal insufficiency Avoiding NSAIDs -Atrial fibrillation -History of pacemaker On chronic anticoagulation 1. Rheumatoid arthritis involving multiple sites with positive rheumatoid factor 2. High risk medication use Assessment & Plan Orders Placed This Encounter Procedures ??? XR Hand 2 View Bilateral ??? Comprehensive Metabolic Panel ??? CBC Auto Differential ??? C-reactive Protein ??? Sedimentation Rate No orders of the defined types were placed in this encounter. Follow Up: Return in about 4 months (around 02/27/2025). Discussed plan of care in detail with the patient today. Patient verbalized understanding and agrees. I confirm accuracy of unchanged data/findings which have been carried forward from previous visit. I have updated appropriately those that have changed. David Bernstein MD [facility] [place] [place] [facility] [place] documented in this encounter Plan of Treatment Upcoming Encounters Date Type Department Care Team (Late st Contact Info) Description 01/12/2025 11:30 AM EDT Office Visit [facility] [address] [facility] [place] [place] [address] Wojciech Flores MD [address] [place] [address] 02/21/2025 10:45 AM EDT Office Visit [facility] [address] [facility] [address] [place] [phone] Yon Govea MD [address] [facility] [address] [place] [address] 02/28/2025 11:00 AM EDT Appointment [facility] [address] [place] [address] 02/28/2025 1:45 PM EDT Office Visit [facility] [address] [facility] [address] [place] [phone] Yue Pandey, RESOURCE PROGRAM TEACHER [address] [facility] [address] [place] [address] 06/30/2025 11:30 AM EST Office Visit [facility] [address] [facility] [address] [place] [phone] David Bernstein MD [address] [facility] [address] [place] [address] Scheduled Orders Name Type Priority Associated Diagnoses Orde r Schedule Comprehensive Metabolic Panel Lab Routine Rheumatoid arthritis involving multiple sites with positive rheumatoid factor High risk medication use Every 8 Weeks for 6 Occurrences starting 10/28/2024 until 10/28/2025, 1 completed CBC Auto Differential Lab Routine Rheumatoid arthritis involving multiple sites with positive rheumatoid factor High risk medication use Every 8 Weeks for 6 Occurrences starting 10/28/2024 until 10/28/2025 C-reactive Protein Lab Routine Rheumatoid arthritis involving multiple sites with positive rheumatoid factor High risk medication use Every 8 Weeks for 6 Occurrences starting 10/28/2024 until 10/28/2025, 1 completed Sedimentation Rate Lab Routine Rheumatoid arthritis involving multiple sites with positive rheumatoid factor High risk medication use Every 8 Weeks for 6 Occurrences starting 10/28/2024 until 10/28/2025 documented as of this encounter Procedures Procedure Name Priority Date/Time Associated Diagnosis Comments C-REACTIVE PROTEIN Routine 11/14/2024 10 :07 AM EDT Rheumatoid arthritis involving multiple sites with positive rheumatoid factor High risk medication use COMPREHENSIVE METABOLIC PANEL Routine 11/14/2024 Rheumatoid arthritis involving multiple sites with positive rheumatoid factor High risk medication use XR HAND 2 VW BILATERAL Routine 11:12 AM EDT Rheumatoid arthritis involving multiple sites with positive rheumatoid factor documented in this encounter Results * C-reactive Protein (11/14/2024 10:07 AM EDT) Blood David Bernstein MD LAB BLOOD ORDERABLES Final Result [facility] (AMBULATORY) [address] [place] [address], * Comprehensive Metabolic Panel (11/14/2024) Blood us David Bernstein MD LAB BLOOD ORDERABLES Final Result [facility] (AMBULATORY) [address] [place] [address], * XR Hand 2 View Bilateral (10/28/2024 11:12 AM EDT) Anatomical Region Laterality Modality Upper Extremities, Hand Bilateral Radiogra phic Imaging 11/02/2024 4:45 PM EDT Impressions 11/02/2024 4:47 PM EDT Impression: Mixed erosive and productive arthritis. Chondrocalcinosis. CPPD arthropathy should be considered given the joint space narrowing of the metacarpal phalangeal joints and chondrocalcinosis. The erosive changes at the distal interphalangeal joints could be seen with erosive osteoarthritis. Electronically Signed: Tiffany Vila MD 11/02/2024 4:47 PM EDT Workstation ID: [id number] Narrative 11/02/2024 4:47 PM EDT XR HAND 2 VW BILATERAL Date of Exam: 10/28/2024 11:07 AM EDT Indication: pain Comparison: None available. Findings: Right hand: Osteopenia. Severe joint space narrowing interphalangeal joints and metacarpophalangeal joints first through third digit. Moderate to severe first carpometacarpal joint space narrowing. Moderate triscaphe joint space narrowing. Mild to moderate radiocarpal joint space narrowing. Soft tissue swelling suspected at the second distal interphalangeal joint and the third metacarpophalangeal joint. Chondrocalcinosis at the ulnar aspect of the wrist and at the third metacarpal phalangeal joint. Erosive change at the third distal interphalangeal joint. Subchondral cysts at the third metacarpal phalangeal joint. Volar subluxation of the proximal phalanx of the second third digit. No periosteal reaction. Left hand: Osteopenia. Soft tissue swelling second distal interphalangeal joint. Lateral subluxation of distal phalanx relative to the middle phalanx. Severe joint space narrowing interphalangeal joints. Moderate to severe joint space narrowing of the first through third metacarpal phalangeal joints. Severe joint space narrowing of the first carpometacarpal joint. Moderate triscaphe joint space narrowing. Chondrocalcinosis ulnar aspect of the wrist. Osteophytes and erosions most pronounced at the second distal interphalangeal joint. Procedure Note Tiffany Vila MD - 11/02/2024 XR HAND 2 VW BILATERAL Date of Exam: 10/28/2024 11:07 AM EDT Indication: pain Comparison: None available. Findings: Right hand: Osteopenia. Severe joint space narrowing interphalangealjoints and metacarpophalangeal joints first through third digit. Moderateto severe first carpometacarpal joint space narrowing. Moderate triscaphejoint space narrowing. Mild to moderate radiocarpal joint space narrowing. Soft tissue swelling suspectedat the second distal interphalangeal joint and the thirdmetacarpophalangeal joint. Chondrocalcinosis at the ulnar aspect of thewrist and at the third metacarpal phalangeal joint. Erosive change at the third distal interphalangeal joint.Subchondral cysts at the third metacarpal phalangeal joint. Volarsubluxation of the proximal phalanx of the second third digit. Noperiosteal reaction. Left hand: Osteopenia. Soft tissue swelling second distal interphalangealjoint. Lateral subluxation of distal phalanx relative to the middlephalanx. Severe joint space narrowing interphalangeal joints. Moderate tosevere joint space narrowing of the first through third metacarpal phalangeal joints. Severe joint spacenarrowing of the first carpometacarpal joint. Moderate triscaphe jointspace narrowing. Chondrocalcinosis ulnar aspect of the wrist. Osteophytesand erosions most pronounced at the second distal interphalangeal joint. IMPRESSION: Impression: Mixed erosive and productive arthritis. Chondrocalcinosis. CPPDarthropathy should be considered given the joint space narrowing of themetacarpal phalangeal joints and chondrocalcinosis. The erosive changes atthe distal interphalangeal joints could be seen with erosive osteoarthritis. Electronically Signed: Tiffany Vila MD 11/02/2024 4:47 PM EDT Workstation ID: [id number] David Bernstein MD [facility] Final Result documented in this encounter Visit Diagnoses Diagnosis Rheumatoid arthritis involving multiple sites with positive rheumatoid factor- Primary High risk medication use Imbalance Abnormality of gait At high risk for falls documented in this encounter Care Teams Screen Printing Equipment Setter Relationship Specialty Start Date End Date Ferny Gentile MD [address] [facility] [address] [facility] [place] [address] PCP - General 06/11/15 documented as of this encounter
--- OUTSIDE RECORDS SUMMARY | 2024-10-28 11:15 | XMS_ITS | Encounter Summary ---
[facility] Organization [facility] Address [address] [place] [address] Care Team Providers Care Heel Slugger Name Role Phone Ferny Gentile MD Primary Care Provider [phone] Encounter Details Date Type Department Care Team (Late st Contact Info) Description 10/28/2024 11:15 AM EDT Ancillary Procedure [facility] [address] [address] Social History Tobacco Use Types Packs/Day Years [...] Description 01/12/2025 11:30 AM EDT Office Visit [facility] [address] [facility] [place] [address] Wojciech Flores MD [address] [facility] [address] [facility] [address] [place] [id number] 02/21/2025 10:45 AM EDT Office Visit [facility] [address] [facility] [address] [place] [address] Yon Govea MD [address] [facility] 400 [place] [address] 02/28/2025 11:00 AM EDT Appointment [facility] [address] [facility] [place] [address] 02/28/2025 1:45 PM EDT Office Visit [facility] [address] [facility] [address] [place] [address] Yue Pandey, REFERENCE SERVICES HEAD [address] [address] 06/30/2025 11:30 AM EST Office Visit [facility] [address] [phone] David Bernstein MD [address] [id number] documented as of this encounter Procedures Procedure Name Priority Date/Time Associated Diagnosis Comments XR HAND 2 VW BILATERAL Routine 10/28/2024 11:12 AM EDT Rheumatoid arthritis involving multiple sites with positive rheumatoid factor documented in this encounter Results * XR Hand 2 View Bilateral (10/28/2024 [...] MD 11/02/2024 4:47 PM EDT Workstation ID: [id number] Narrative 11/02/2024 4:47 PM EDT XR HAND [...] MD 11/02/2024 4:47 PM EDT Workstation ID: [id number] David Bernstein MD [facility] Final Result documented in this encounter Visit Diagnoses Not on filedocumented in this encounter Care Teams Heel Slugger Relationship Specialty Start Date End Date Ferny Gentile MD [address] [facility] [address] [place] [id number] PCP - General 06/11/15 documented as of this encounter
--- NOTE | 2025-01-05 16:59 | XR_ITS ---
PROCEDURE INFORMATION: Exam: XR Left Foot Exam date and time: 01/05/2025 5:00 PM Age: 84 years old Clinical indication: Pain; Foot; Left; Additional info: Left foot pain and redness and swelling TECHNIQUE: Imaging protocol: Radiologic exam of the left foot. Views: 3 or more views. COMPARISON: No relevant prior studies available. FINDINGS: Bones/joints: old fracture deformity distal aspect of the proximal phalanx little toe. Soft tissues: Normal. IMPRESSION: 1. Old fracture deformity distal aspect of the proximal phalanx little toe. 2. No acute abnormalities are identified.
--- OUTSIDE RECORDS SUMMARY | 2025-01-05 16:59 | XMS_ITS | Encounter Summary ---
[facility] [address] [place] [address] Care Team Providers Care Laborer Wood Preserving Plant Name Role Phone Ferny Gentile MD Primary Care Provider Encounter Details Date Type Department Care Team (Late st Contact Info) Description 02/04/2022 Anticoagulation Visit [facility] [address] [facility] [address] [place] [address] Hernan Mckenna, PharmD [address] [place] [id number] Paroxysmal 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 (Primary Dx) Social History Tobacco Use Types Packs/Day Years Used Date Smoking Tobacco: Never Smokeless Tobacco: Never Alcohol Use Standard Drinks/Week Comments Yes 0 (1 standard drink = 0.6 oz pur e alcohol) occasional Comments No Sex and Gender Information Value Date Recorded Sex Assigned at Female 09/13/2024 10:08 PM EDT Legal Sex Female 10:33 AM EDT Gender Identity Not on file Sexual Orientation Not on file documented as of this encounter Plan of Treatment Upcoming Encounters Date Type Department Care Team (Late st Contact Info) Description 01/12/2025 11:30 AM EDT Office Visit [facility] [address] [facility] [place] [place] [address] Wojciech Flores MD [address] [facility] [address] [place] [address] 02/21/2025 10:45 AM EDT Office Visit [facility] [address] [facility] [address] [place] [address] Yon Govea MD [address] [facility] [address] [place] [address] 02/28/2025 11:00 AM EDT Appointment [facility] [address] [place] [address] 02/28/2025 1:45 PM EDT Office Visit [facility] [address] [phone] Yue Pandey APRN [address] [id number] 06/30/2025 11:30 AM EST Office Visit [facility] [address] [phone] David Bernstein MD [address] [id number] documented as of this encounter Procedures Procedure Name Priority Date/Time Associated Diagnosis Comments PROTIME-INR Routine 02/04/2022 documented in this encounter Results * Protime-INR (02/04/2022) INR 1.90 Blood us Historical Provider LAB BLOOD ORDERABLES Agata l Result documented in this encounter Visit Diagnoses Diagnosis Paroxysmal 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- Primary Atrial fibrillation documented in this encounter Care Teams Laborer Wood Preserving Plant Relationship Specialty Start Date End Date Ferny Gentile MD [address] [facility] [address] [place] [address] PCP - General 06/11/15 documented as of this encounter
--- OUTSIDE RECORDS SUMMARY | 2025-01-05 16:59 | XMS_ITS | Encounter Summary ---
[facility] [address] [place] [address] Care Team Providers Care Lock Up Worker Name Role Phone Ferny Gentile MD Primary Care Provider [phone] Encounter Details Date Type Department Care Team (Late st Contact Info) Description 12/23/2024 Anticoagulation Visit [facility] [address] [place] [phone] Dayron Diallo, Improvement Engineer Social History Tobacco Use Types Packs/Day Years [...] on file documented as of this encounter Progress Notes * Dayron Diallo, Improvement Engineer - 12/23/2024 1:24 PM EDT Anticoagulation Clinic - Remote Progress Note [facility] Testing Frequency: 2-4x a month Indication: Paroxysmal Atrial Fibrillation Referring Provider: Sandra [last seen: 06/11/23] Initial Warfarin Start Date: Fall 2014 Goal INR: 2.0-3.0 Current Drug Interactions: Citalopram, Esomeprazole, Osteo-BiFlex (glucosamine), CoQ10 CHADS-VASc: 7 [Age > 75, Gender, CHF, HTN, History of DVT] Diet: Eats GLV about 1-2x per week (11/06/23) Alcohol: No Tobacco: No OTC Pain Medication: extra strength APAP prn Med list updated 03/23/19 Clinic visit: 06/2019 INR History: Date 10/2211/14/2311/19 8 812/17 9 Total WeeklyDose 52.5 mg 52.5 mg 52.5 mg 52.5 mg 52.5 mg 52.5 mg 52.5 mg 52.5 mg 52.5 mg 52.5 mg 52.5 mg 50 mg INR 2.4 3.0 2.7 3.4 2.6 3.2 2.0 2.4 2.5 3.0 3.4 1.8 Notes Rec'd 11/15 Rec 11/22 Rec 11/29 Dec GLV? Rec 12/06 Contacted 12/13 Rec'd 12/21 Dec GLV Date 01/1403/04/2403/11 Total WeeklyDose 55 mg 52.5mg 52.5 mg 52.5mg 52.5 mg 52.5 mg 52.5 mg 52.5 mg 55 mg 55 mg 55mg 55 mg INR 2.5 2.4 2.9 2.2 2.2 1.7 2.2 1.6 2.1 2.5 2.0 2.4 Notes Contacted 01/17 Rec'd 02/28 Rec'd 03/07/24 Rec 03/28 Rec 04/04 Rec 04/11 Contacted 04/13 Date 04/1505/06/2405/13 Total WeeklyDose 55 mg 57.5mg 55mg 55 mg 55 mg 57.5 mg 60 mg 60mg 60 mg 60 mg 55 mg 55 mg INR 2.6 1.7 2.8 2.1 1.7 1.8 2.5 2.9 3.0 2.2 2.5 2.8 Notes Date 07/08 07/15 07/22 07/29 08/05 08/12 08/19 08/26 09/02 09/09 09/16 09/23 09/30 Total Weekly Dose 52.5mg 52.5 mg 52.5 mg 52.5 mg 52.5 mg 52.5 mg 57.5 mg 52.5 mg 52.5 mg 52.5 mg 52.5 mg 55 mg 52.5 mg INR 2.2 2.3 2.3 2.5 2.1 1.9 2.2 2.8 2.1 2.6 1.7 2.3 2.4 Notes Fall Cefdinir Date 10/10 10/16 10/21 10/29 11/04 11/11 11/18 11/25 12/02 12/09 Total Weekly Dose 52.5 mg 52.5 mg 52.5 mg 52.5 mg 52.5 mg 55 mg 52.5 mg 55 mg 52.5 mg 52.5 mg INR 2.2 1.9 2.3 2.6 1.8 2.3 1.7 2.2 2.9 2.2 Notes Rec'd 10/18 Rec'd 11/01 Rec'd 11/08 Inc GLV Date 12/16 12/23 Total Weekly Dose 52.5 mg 52.5 mg INR 2.8 2.0 Notes Phone Interview: Verbal Release Authorization signed on 06/29/2019 -- may speak with Litzy Naranjo (daughter) Tablet Strength: 5mg tablets Patient Contact Info: [phone]; Litzy Naranjo (daughter) Patient Findings Positives: Change in diet/appetite Negatives: Signs/symptoms of thrombosis, Signs/symptoms of bleeding, Laboratory test error suspected, Change in health, Change in alcohol use, Change in activity, Upcoming invasive procedure, Emergency department visit, Upcoming dental procedure, Missed doses, Extra doses, Change in medications, Hospital admission, Bruising, Other complaints Comments: Patient had a caesar salad and has eaten multiple servings of a broccoli casserole this past week. Patient had dental cleaning 12/21. Patient believes she will continue increased GLV intake.All other findings negative per patient. Plan: INR was therapeutic at 2.0 (goal 2 to 3). Per Briseida Saldana PharmD Instructed patient to continue warfarin 7.5 mg daily until recheck. Recheck INR in 1 week, 12/30/24 Patient prefers testing Thursday. Verbal information provided over the phone. Luz Skaggs RBV dosing instructions, expresses understanding by teach back, and has no further questions at this time. Dayron Diallo ICER MACHINE OPERATOR 12/23/2024 13:33 EDT I, Claudia Bauer, MadisonD, have reviewed the note in full and agree with the assessment and plan. 12/23/24 14:16 EDT documented in this encounter Plan of Treatment Upcoming Encounters Date Type Department Care Team (Late st Contact Info) Description 01/12/2025 11:30 AM EDT Office Visit [facility] [address] [place] [address] [place] [address] Wojciech Flores MD [address] [facility] [address] [place], [place] [phone] 02/21/2025 10:45 AM EDT Office Visit [facility] [address] [facility] [address] [place] [address] Yon Govea MD [address] [facility] [address] [place], [place] [phone] 02/28/2025 11:00 AM EDT Appointment [facility] [address] [place] [address] 02/28/2025 1:45 PM EDT Office Visit [facility] [address] [address] Yue Pandey APRN [address] [phone] 06/30/2025 11:30 AM EST Office Visit [facility] [address] [address] David Bernstein MD [address] [address] documented as of this encounter Procedures Procedure Name Priority Date/Time Associated Diagnosis Comments PROTIME-INR Routine 12/23/2024 documented in this encounter Results * Protime-INR (12/23/2024) INR 2.00 Blood 12/23/2024 Historical Provider LAB BLOOD ORDERABLES Agata l Result documented in this encounter Visit Diagnoses Not on filedocumented in this encounter Care Teams Lock Up Worker Relationship Specialty Start Date End Date Ferny Gentile MD [address] [place] [facility] [address] [facility] [address] [place] [id number] PCP - General 06/11/15 documented as of this encounter
--- OUTSIDE RECORDS SUMMARY | 2025-01-05 16:59 | XMS_ITS | Encounter Summary ---
[facility] Address [address] [place] [address] Care Team Providers Care Finishing Operator Name Role Phone Ferny Gentile MD Primary Care Provider [phone] Encounter Details Date Type Department Care Team (Late st Contact Info) Description 12/30/2024 Anticoagulation Visit [facility] [address] [place] [phone] Dayron Diallo, Gear Shaver Set Up Operator Social History Tobacco Use Types Packs/Day Years [...] this encounter Progress Notes * Dayron Diallo, Gear Shaver Set Up Operator - 12/30/2024 1:13 PM EDT Anticoagulation Clinic - Remote Progress [...] Rec'd 11/08 Inc GLV Date 12/16 12/23 12/30 Total Weekly Dose 52.5 mg 52.5 mg 52.5 mg INR 2.8 2.0 2.2 Notes Phone Interview: Verbal Release Authorization signed on 06/29/2019 -- may speak with Litzy Naranjo (daughter) Tablet Strength: 5mg tablets Patient Contact Info: [phone]; Litzy Naranjo (daughter) Patient Findings Positives: Change in medications Negatives: Signs/symptoms of thrombosis, Signs/symptoms of bleeding, Laboratory test error suspected, Change in health, Change in alcohol use, Change in activity, Upcoming invasive procedure, Emergency department visit, Upcoming dental procedure, Missed doses, Extra doses, Change in diet/appetite, Hospital admission, Bruising, Other complaints Comments: Patient has been taking Mucinex DM 600 mg once daily for the past two days due to allergies. Patient states she had two servings of GLV this past week.All other findings negative per patient. Plan: INR was therapeutic at 2.2 (goal 2 to 3). Instructed patient to continue warfarin 7.5 mg daily until recheck. Recheck INR in 1 week, 01/06/25 Patient prefers testing Thursday. Verbal information provided over the phone. Luz Skaggs RBV dosing instructions, expresses understanding by teach back, and has no further questions at this time. Dayron Diallo METEOROLOGICAL TECHNICIAN 12/30/2024 14:03 EDT I, Claudia Bauer, MadisonD, have reviewed the note in full and agree with the assessment and plan. 12/30/24 14:10 EDT documented in this encounter Plan of Treatment Upcoming Encounters Date Type Department Care Team (Late st Contact Info) Description 01/12/2025 11:30 AM EDT Office Visit [facility] [address] [place] [address] [place] [address] Wojciech Flores MD [address] [facility] [address] [place], [place] [phone] 02/21/2025 10:45 AM EDT Office Visit [facility] [address] [facility] [address] [place] [phone] Yon Govea MD [address] [facility] [address] [place], [place] [phone] 02/28/2025 11:00 AM EDT Appointment [facility] [address] [place] [address] 02/28/2025 1:45 PM EDT Office Visit [facility] [address] [phone] Yue Pandey APRN [address] [phone] 06/30/2025 11:30 AM EST Office Visit [facility] [address] [place] [phone] David Bernstein MD [address] [phone] documented as of this encounter Procedures Procedure Name Priority Date/Time Associated Diagnosis Comments PROTIME-INR Routine 12/30/2024 documented in this encounter Results * Protime-INR (12/30/2024) INR 2.20 Blood 12/30/2024 Historical Provider LAB BLOOD ORDERABLES Agata l Result documented in this encounter Visit Diagnoses Not on filedocumented in this encounter Care Teams Finishing Operator Relationship Specialty Start Date End Date Ferny Gentile MD [address] [place] [facility] [address] [facility] [place] [address] PCP - General 06/11/15 documented as of this encounter
--- OUTSIDE RECORDS SUMMARY | 2025-01-05 16:59 | XMS_ITS | Encounter Summary ---
[facility] Address [address] [place] [address] Care Team Providers Care Maintenance Apprentice Name Role Phone Ferny Gentile MD Primary Care Provider Encounter Details Date Type Department Care Team (Latest Contact Info) Description 11/06/2021 Anticoagulation Visit [facility] [address] [facility] [address] [place] [address] Juan Ramon King, Vp Of Product Paroxysmal 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 (Primary Dx) Social History [...] Description 01/12/2025 11:30 AM EDT Office Visit [facility] [address] [place] [address] [place] [address] Wojciech Flores MD [address] [facility] [address] [place] [address] 02/21/2025 10:45 AM EDT Office Visit [facility] [address] [facility] [address] [place] [address] Yon Govea MD [address] [facility] [address] [place] [address] 02/28/2025 11:00 AM EDT [facility]ment [facility] [address] [place] [address] 02/28/2025 1:45 PM EDT Office Visit [facility] [address] [address] Yue Pandey, CAREER TECHNICAL EDUCATION TEACHER [address] [phone] 06/30/2025 11:30 AM EST Office Visit [facility] [address] [address] David Bernstein MD [address] [phone] documented as of this encounter Visit Diagnoses Diagnosis Paroxysmal 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- Primary Atrial fibrillation documented in this encounter Care Teams Maintenance Apprentice Relationship Specialty Start Date End Date Ferny Gentile MD [address] [facility] [address] [place] [address] PCP - General 06/11/15 documented as of this encounter
--- OUTSIDE RECORDS SUMMARY | 2025-01-05 17:00 | XMS_ITS | Encounter Summary ---
[facility] Address [address] [place] [address] Care Team Providers Care Remelt Operator Name Role Phone Ferny Gentile MD Primary Care Provider [phone] Encounter Details Date Type Department Care Team (Latest Contact Info) Description 12/10/2020 Anticoagulation Visit [facility] [address] [facility] [address] [place] [address] Leticia Vivar, Plumber Gasfitter Paroxysmal 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 (Primary Dx) Social History [...] Description 01/12/2025 11:30 AM EDT Office Visit [facility]ARD[facility] [address] [facility] [place] [address] Wojciech Flores MD [address] [facility] [address] [place] [address] 02/21/2025 10:45 AM EDT Office Visit [facility] [address] [facility] [facility] [address] [place] [address] Yon Govea MD [address] [facility] [address] [place], [place] [address] 02/28/2025 11:00 AM EDT Appointment [facility] [address] [place] [address] 02/28/2025 1:45 PM EDT Office Visit [facility] RHEUMATOLOGY [address] [address] Yue Pandey, YURI [address] [id number] 06/30/2025 11:30 AM EST Office Visit [facility]HEUM[facility] [address] [address] David Bernstein MD [address] [id number] documented as of this encounter Procedures Procedure Name Priority Date/Time Associated Diagnosis Comments PROTIME-INR Routine 12/14/2020 documented in this encounter Results * Protime-INR (12/14/2020) INR 3.40 Blood us Historical Provider LAB BLOOD ORDERABLES Agata l Result documented in this encounter Visit Diagnoses Diagnosis Paroxysmal 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- Primary Atrial fibrillation documented in this encounter Additional Health Concerns Infection Onset Date Last Indicated Resolved Time COVID Screen (preop/placement) 01/15/2021 01/15/2021 01/15/2021 10:59 PM EDT documented as of this encounter Care Teams Remelt Operator Relationship Specialty Start Date End Date Ferny Gentile MD 1210 [facility] [address] [place] [address] PCP - General 06/11/15 documented as of this encounter
--- OUTSIDE RECORDS SUMMARY | 2025-01-05 17:00 | XMS_ITS | Encounter Summary ---
[facility] Address [address] [place] [address] Care Team Providers Care Turbo Operator Name Role Phone Ferny Gentile MD Primary Care Provider [phone] Encounter Details Date Type Department Care Team (Late st Contact Info) Description 11/11/2024 Anticoagulation Visit [facility]IC [address] [place] [address] Dayron Diallo, Room Service Clerk Social History Tobacco Use Types Packs/Day Years [...] this encounter Progress Notes * Dayron Diallo, Room Service Clerk - 11/11/2024 1:45 PM EDT Anticoagulation Clinic - Remote Progress [...] Date 10/10 10/16 10/21 10/29 11/04 11/11 Total Weekly Dose 52.5 mg 52.5 mg 52.5 mg 52.5 mg 52.5 mg 55 mg INR 2.2 1.9 2.3 2.6 1.8 2.3 Notes Rec'd 10/18 Rec'd 11/01 Rec'd 11/08 Phone Interview: Verbal Release Authorization signed on 06/29/2019 -- may speak with Litzy Naranjo (daughter) Tablet Strength: 5mg tablets Patient Contact Info: [phone]; Litzy Naranjo (daughter) [facility] 11/11 Plan: INR therapeutic at 2.3 (goal 2 to 3). Instructed patient to continue warfarin 7.5 mg daily until recheck. Repeat INR 7.18.25 Patient prefers testing Thursday. Verbal information provided over the phone. Luz Skaggs RBV dosing instructions, expresses understanding by teach back, and has no further questions at this time. * Karen Mace, Room Service Clerk - 11/11/2024 1:45 PM EDT Anticoagulation Clinic - Remote Progress [...] Clinic visit: 06/2019 INR History: Date 10/2211/14/2311/19 Total WeeklyDose 52.5 mg 52.5 mg 52.5 [...] 07/15 07/22 07/29 08/05 08/12 08/19 08/26 509/09 Total Weekly Dose 52.5mg 52.5 mg 52.5 mg 52.5 mg 52.5 mg 52.5 mg 57.5 mg 52.5 mg 52.5 mg 52.5 mg 52.5 mg 55 mg 52.5 mg INR 2.2 2.3 2.3 2.5 2.1 1.9 2.2 2.8 2.1 2.6 1.7 2.3 2.4 Notes Fall Cefdinir Date 10/10 10/16 10/21 10/29 11/04 11/11 Total Weekly Dose 52.5 mg 52.5 mg 52.5 mg 52.5 mg 52.5 mg 55 mg INR 2.2 1.9 2.3 2.6 1.8 2.3 Notes Rec'd 10/18 Rec'd 11/01 Rec'd 11/08 Phone Interview: Verbal Release Authorization signed on 06/29/2019 -- may speak with Litzy Naranjo (daughter) Tablet Strength: 5mg tablets Patient Contact Info: [phone]; Litzy Naranjo (daughter) Patient Findings: Negatives: Signs/symptoms of thrombosis, Signs/symptoms of bleeding, Laboratory test error suspected, Change in health, Change in alcohol use, Change in activity, Upcoming invasive procedure, Emergency department visit, Upcoming dental procedure, Missed doses, Extra doses, Change in medications, Change in diet/appetite, Hospital admission, Bruising, Other complaints Comments: All findings negative per patient. Plan: INR was therapeutic 11/11 at 2.3 (goal 2 to 3). Instructed patient to continue warfarin 7.5 mg dailyuntil recheck. Recheck INR in 1 week, 7.18.25. Patient prefers testing Thursday. Verbal information provided over the phone. Luz Skaggs RBV dosing instructions, expresses understanding by teach back, and has no further questions at this time. Karen Mace CPhT, [facility] 09:54 EDT 11/14/2024 Briseida Mathis, Garret, have reviewed the note in full and agree with the assessment and plan. 11/14/24 10:20 EDT documented in this encounter Plan of Treatment Upcoming Encounters Date Type Department Care Team (Late st Contact Info) Description 01/12/2025 11:30 AM EDT Office Visit [facility] CARDIOLOGY [address] [facility] [place] [address] Wojciech Flores MD [address] [facility] [address] [place] [address] 02/21/2025 10:45 AM EDT Office Visit [facility] [address] [facility] [address] [place] [address] Yon Govea MD 1720 [facility] [address] [place], [place] [id number] 02/28/2025 11:00 AM EDT Appointment [facility] [address] [place] [address] 02/28/2025 1:45 PM EDT Office Visit [facility] RHEUMATOLOGY [address] [address] Yue Pandey, YURI [address] [id number] 06/30/2025 11:30 AM EST Office Visit [facility] RHEUMATOLOGY [address] [address] David Bernstein MD [address] [phone] documented as of this encounter Procedures Procedure Name Priority Date/Time Associated Diagnosis Comments PROTIME-INR Routine 11/11/2024 documented in this encounter Results * Protime-INR (11/11/2024) INR 2.30 Blood 11/11/2024 us Historical Provider LAB BLOOD ORDERABLES Agata l Result documented in this encounter Visit Diagnoses Not on filedocumented in this encounter Care Teams Turbo Operator Relationship Specialty Start Date End Date Ferny Gentile MD 1210 [facility] [address] [place] [address] PCP - General 06/11/15 documented as of this encounter
--- OUTSIDE RECORDS SUMMARY | 2025-01-05 17:00 | XMS_ITS | Encounter Summary ---
[facility] Address [address] [place] [address] Care Team Providers Care Research And Evaluation Manager Name Role Phone Ferny Gentile MD Primary Care Provider [phone] Encounter Details Date Type Department Care Team (Late st Contact Info) Description 07/15/2024 Results Follow-Up [facility] RHEUMATOLOGY [address] [address] David Bernstein MD 330 [facility] [address] [place] [address] Social History Tobacco Use Types Packs/Day Years [...] Description 01/12/2025 11:30 AM EDT Office Visit [facility] CARDI[facility] [address] [facility] [place] [address] Wojciech Flores MD [address] [facility] [address] [place], [place] [id number] 02/21/2025 10:45 AM EDT Office Visit [facility] CARDIOLOG[facility] [address] [facility] [address] [place] [address] Yon Govea MD 1720 [facility] [address] [place], [place] [address] 02/28/2025 11:00 AM EDT Appointment [facility] 206 [place] [address] 02/28/2025 1:45 PM EDT Office Visit [facility] RHEUMATOLOGY [address] [address] Yue Pandey APRN [address] [id number] 06/30/2025 11:30 AM EST Office Visit [facility] RHEUMATOLOGY [address] [address] David Bernstein MD [address] [phone] documented as of this encounter Visit Diagnoses Not on filedocumented in this encounter Care Teams Research And Evaluation Manager Relationship Specialty Start Date End Date Ferny Gentile MD 1210 [facility] [address] [place] [address] PCP - General 06/11/15 documented as of this encounter
--- OUTSIDE RECORDS SUMMARY | 2025-01-05 17:00 | XMS_ITS | Encounter Summary ---
[facility] [address] [place] [address] Care Team Providers Care Tar Heel Name Role Phone Ferny Gentile MD Primary Care Provider [phone] Encounter Details Date Type Department Care Team (Late st Contact Info) Description 12/09/2024 Anticoagulation Visit [facility] [address] [place] [address] Dayron Diallo, Piano Technician Social History Tobacco Use Types Packs/Day Years [...] this encounter Progress Notes * Dayron Diallo, Piano Technician - 12/09/2024 1:02 PM EDT Anticoagulation Clinic - Remote Progress [...] Rec'd 11/01 Rec'd 11/08 Inc GLV Date Total Weekly Dose INR Notes Phone Interview: Verbal Release Authorization signed on 06/29/2019 -- may speak with Litzy Naranjo (daughter) Tablet Strength: 5mg tablets Patient Contact Info: [phone]; Litzy Naranjo (daughter) Patient Findings Negatives: Signs/symptoms of thrombosis, Signs/symptoms of bleeding, Laboratory test error suspected, Change in health, Change in alcohol use, Change in activity, Upcoming invasive procedure, Emergency department visit, Upcoming dental procedure, Missed doses, Extra doses, Change in medications, Change in diet/appetite, Hospital admission, Bruising, Other complaints Comments: Dental cleaning upcoming in the next week or so. All findings negative per patient. Plan: INR is therapeutic at 2.2 (goal 2 to 3). Instructed patient to continue warfarin 7.5 mg daily untilrecheck. Recheck INR in 1 week, 12/16/24 Patient prefers testing Thursday. Verbal information provided over the phone. Luz Skaggs RBV dosing instructions, expresses understanding by teach back, and has no further questions at this time. Dayron Diallo [facility] 12/09/2024 13:08 EDT IClaudia, PharmD, have reviewed the note in full and agree with the assessment and plan. 12/09/24 13:12 EDT documented in this encounter Plan of Treatment Upcoming Encounters Date Type Department Care Team (Late st Contact Info) Description 01/12/2025 11:30 AM EDT Office Visit [facility] CARDIOLOGY [address] [facility] [place] [address] Wojciech Flores MD [address] [place] [address] 02/21/2025 10:45 AM EDT Office Visit [facility] [address] [facility] [address] [place] [address] Yon Govea MD [address] [place], [place] [address] 02/28/2025 11:00 AM EDT Appointment [facility] [address] [place] [address] 02/28/2025 1:45 PM EDT Office Visit [facility] RHEUMATOLOGY [address] [phone] Yue Pandey APRN [address] [phone] 06/30/2025 11:30 AM EST Office Visit [facility] RHEUMATOLOG[facility] [address] [address] David Bernstein MD [address] [id number] documented as of this encounter Procedures Procedure Name Priority Date/Time Associated Diagnosis Comments PROTIME-INR Routine 12/09/2024 documented in this encounter Results * Protime-INR (12/09/2024) INR 2.20 Blood 12/09/2024 us Historical Provider LAB BLOOD ORDERABLES Agata l Result documented in this encounter Visit Diagnoses Not on filedocumented in this encounter Care Teams Tar Heel Relationship Specialty Start Date End Date Ferny Gentile MD 1210 [facility] [address] [place] [address] PCP - General 06/11/15 documented as of this encounter
--- OUTSIDE RECORDS SUMMARY | 2025-01-05 17:00 | XMS_ITS | Encounter Summary ---
[facility] Address [address] [place] [address] Care Team Providers Care Rn Document Improvement Name Role Phone Ferny Gentile MD Primary Care Provider [phone] Encounter Details Date Type Department Care Team (Late st Contact Info) Description 12/02/2024 Anticoagulation Visit [facility] [address] [facility] [address] [place] [address] Claudia Bauer, PharmD 1740 [place] [address] Social History Tobacco Use Types Packs/Day Years [...] as of this encounter Progress Notes * Claudia Bauer, PharmD - 12/02/2024 1:19 PM EDT Anticoagulation Clinic - Remote Progress [...] 03/23/19 Clinic visit: 06/2019 INR History: Date 10/22 10/29 7/11/14/2311/19 8/ 812/17 9 Total WeeklyDose 52.5 mg 52.5 [...] 2.8 Notes Date 07/08 07/15 07/22 07/29 408/12 509/09 Total Weekly Dose 52.5mg 52.5 mg 52.5 mg 52.5 mg 52.5 mg 52.5 mg 57.5 mg 52.5 mg 52.5 mg 52.5 mg 52.5 mg 55 mg 52.5 mg INR 2.2 2.3 2.3 2.5 2.1 1.9 2.2 2.8 2.1 2.6 1.7 2.3 2.4 Notes Fall Cefdinir Date 10/10 10/16 10/21 10/29 11/04 11/11 11/18 11/25 12/02 Total Weekly Dose 52.5 mg 52.5 mg 52.5 mg 52.5 mg 52.5 mg 55 mg 52.5 mg 55 mg 52.5 mg INR 2.2 1.9 2.3 2.6 1.8 2.3 1.7 2.2 2.9 Notes Rec'd 10/18 Rec'd 11/01 Rec'd 11/08 Inc GLV Phone Interview: Verbal Release Authorization signed on 06/29/2019 -- may speak with Litzy Naranjo (daughter) Tablet Strength: 5mg tablets Patient Contact Info: [phone]; Litzy Naranjo (daughter) Patient Findings Negatives: Signs/symptoms of thrombosis, Signs/symptoms of bleeding, Laboratory test error suspected, Change in health, Change in alcohol use, Change in activity, Upcoming invasive procedure, Emergency department visit, Upcoming dental procedure, Missed doses, Extra doses, Change in medications, Change in diet/appetite, Hospital admission, Bruising, Other complaints Comments: All findings negative per patient Plan: INR is therapeutic at 2.9 (goal 2 to 3). Instructed patient to continue warfarin 7.5 mg daily untilrecheck. Recheck INR in 1 week, 12/09/24 Patient prefers testing Thursday. Verbal information provided over the phone. Luz Skaggs RBV dosing instructions, expresses understanding by teach back, and has no further questions at this time. Claudia Bauer, PharmD 12/02/2024 13:19 EDT documented in this encounter Plan of Treatment Upcoming Encounters Date Type Department Care Team (Late st Contact Info) Description 01/12/2025 11:30 AM EDT Office Visit [facility] CARDIOLOGY [address] [facility] [place] [address] Wojciech Flores MD [address] [facility] [address] [place] [address] 02/21/2025 10:45 AM EDT Office Visit [facility] C[facility] [address] [facility] [address] [place] [address] Yon Govea MD [address] [facility] [address] [place], [place] [address] 02/28/2025 11:00 AM EDT Appointment [facility] [address] [place] [address] 02/28/2025 1:45 PM EDT Office Visit [facility] RHEUMATOLOGY [address] [phone] Yue Pandey APRN [address] [address] 06/30/2025 11:30 AM EST Office Visit [facility] RHEUMATOLOG[facility] [address] [phone] David Bernstein MD [address] [id number] documented as of this encounter Procedures Procedure Name Priority Date/Time Associated Diagnosis Comments PROTIME-INR Routine 12/02/2024 documented in this encounter Results * Protime-INR (12/02/2024) INR 2.90 Blood us Historical Provider LAB BLOOD ORDERABLES Agata l Result documented in this encounter Visit Diagnoses Not on filedocumented in this encounter Care Teams Rn Document Improvement Relationship Specialty Start Date End Date Ferny Gentile MD 1210 [facility] [address] [place] [address] PCP - General 06/11/15 documented as of this encounter
--- OUTSIDE RECORDS SUMMARY | 2025-01-05 17:00 | XMS_ITS | Encounter Summary ---
[facility] Address [address] [place] [address] Care Team Providers Care Publicity Writer Name Role Phone Ferny Gentile MD Primary Care Provider [phone] Encounter Details Date Type Department Care Team (Latest Contact Info) Description 09/24/2018 Anticoagulation Visit [facility] [address] [facility] [address] [place] [address] Orville Reyes Paroxysmal 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 Social History Tobacco Use Types Packs/Day Years Used Date Smoking Tobacco: Never Smokeless Tobacco: Never Alcohol Use Standard Drinks/Week Comments No 0 (1 standard drink = 0.6 oz pur e alcohol) Comments No Sex and Gender Information Value Date Recorded Sex Assigned at Female 09/13/2024 10:08 PM EDT Legal Sex Female 10:33 AM EDT Gender Identity Not on file Sexual Orientation Not on file documented as of this encounter Plan of Treatment Upcoming Encounters Date Type Department Care Team (Late st Contact Info) Description 01/12/2025 11:30 AM EDT Office Visit [facility] CARDIOLOGY [address] [place] [address] Wojciech Flores MD [address] [place] [address] 02/21/2025 10:45 AM EDT Office Visit [facility] [address] [facility] [address] [place] [address] Yon Govea MD 1720 [facility] [address] [place] [address] 02/28/2025 11:00 AM EDT Appointment [facility] [address] [place] [address] 02/28/2025 1:45 PM EDT Office Visit [facility] RHE[facility] [address] [phone] Yue Pandey APRN [address] [phone] 06/30/2025 11:30 AM EST Office Visit [facility] [address] [address] David Bernstein MD [address] [address] documented as of this encounter Visit Diagnoses Diagnosis Paroxysmal 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 Atrial fibrillation documented in this encounter Additional Health Concerns Infection Onset Date Last Indicated Resolved Time COVID Screen (preop/placement) 12/11/2019 12/11/2019 12/12/2019 2:04 PM EDT COVID Screen (preop/placement) 02/12/2020 02/12/2020 02/14/2020 7:46 AM EDT COVID Screen (preop/placement) 01/15/2021 01/15/2021 01/15/2021 10:59 PM EDT documented as of this encounter Care Teams Publicity Writer Relationship Specialty Start Date End Date Ferny Gentile MD 1210 [facility] [address] [place] [address] PCP - General 06/11/15 documented as of this encounter
--- OUTSIDE RECORDS SUMMARY | 2025-01-05 17:00 | XMS_ITS | Encounter Summary ---
Author Organization [facility] Address [address] [place] [address] Care Team Providers Care Ladle Car Operator Name Role Phone Ferny Gentile MD Primary Care Provider [phone] Reason for Visit * Reason Comments Med Refill Encounter Details Date Type Department Care Team (Late st Contact Info) Description 11/17/2024 Refill [facility] [address] [facility] [address] [place] [phone] Wojciech Flores MD [address] [facility] [address] [place] [address] Social History Tobacco Use Types Packs/Day Years [...] as of this encounter Miscellaneous Notes * Telephone Encounter - Briseida Saldana PharmD - 11/17/2024 9:53 AM EDT Warfarub 5 mg Rx refilled per protocol Briseida Saldana PharmD 11/17/2024 09:54 EDT documented in this encounter Plan of Treatment Upcoming Encounters Date Type Department Care Team (Late st Contact Info) Description 01/12/2025 11:30 AM EDT Office Visit [facility] CARDIOLOGY [address] [place] [address] Wojciech Flores MD [address] [facility] [address] [place] [address] 02/21/2025 10:45 AM EDT Office Visit [facility] [address] [facility] [address] [place] [address] Yon Govea MD [address] [facility] [address] [place] [address] 02/28/2025 11:00 AM EDT Appointment [facility] [address] [place] [address] 02/28/2025 1:45 PM EDT Office Visit [facility] RHEUM[facility] [address] [address] Yue Pandey, TRANSPORTATION OFFICER [address] [phone] 06/30/2025 11:30 AM EST Office Visit [facility] [address] [address] David Bernstein MD [address] [address] documented as of this encounter Visit Diagnoses Not on filedocumented in this encounter Care Teams Ladle Car Operator Relationship Specialty Start Date End Date Ferny Gentile MD 1210 [facility] [address] [place] [address] PCP - General 06/11/15 documented as of this encounter
--- OUTSIDE RECORDS SUMMARY | 2025-01-05 17:00 | XMS_ITS | Encounter Summary ---
[facility] Organization [facility] Address [address] [place] [address] Care Team Providers Care Supervisor Rework Name Role Phone Ferny Gentile MD Primary Care Provider [phone] Reason for Visit * Reason Onset Date Comments Med Refill 12/12/2024 Encounter Details Date Type Department Care Team (Late st Contact Info) Description 12/12/2024 Refill [facility] [address] [phone] Yon Govea MD 1720 [place] [address] Med Refill Social History Tobacco Use Types Packs/Day Years [...] Description 01/12/2025 11:30 AM EDT Office Visit [facility] [address] [place] [address] Wojciech Flores MD 1720 [facility] E [facility] 400 [place] [address] 02/21/2025 10:45 AM EDT Office Visit [facility] [address] [facility] [address] [place] [address] Yon Govea MD 1720 [facility] 400 [place] [address] 02/28/2025 11:00 AM EDT [facility]ointment [facility] 206 [place] [address] 02/28/2025 1:45 PM EDT Office Visit [facility] RHEUMATOLOGY [address] [address] Yue Pandey APRN [address] [address] 06/30/2025 11:30 AM EST Office Visit [facility] [address] [address] David Bernstein MD [address] [address] documented as of this encounter Visit Diagnoses Not on filedocumented in this encounter Care Teams Supervisor Rework Relationship Specialty Start Date End Date Ferny Gentile MD 1210 [facility] [address] [facility] [address] [place] [address] PCP - General 06/11/15 documented as of this encounter
--- OUTSIDE RECORDS SUMMARY | 2025-01-05 17:00 | XMS_ITS | Clinical Summary ---
Author Organization [facility] Address [address] [place] [address] Care Team Providers Care Clergy Member Name Role Phone Ferny Gentile MD Primary Care Provider [phone] Allergies Active Allergy Reactions Criticality Noted Date Comments Oxycodone-Acetaminophen Headache Low 09/21/2015 Pravastatin Myalgia Low 09/21/2015 MUSCLE WEAKNESS Sulfamethoxazole-Trimethoprim Rash Low 2015 Medications ezetimibe (ZETIA) 10 MG tablet Take 1 tablet by mouth Daily. 06/03/19 18 Active ipratropium (ATROVENT) 0.06 % nasal spray Administer 2 sprays into the nostril(s) as directed by provider 2 (Two) Times a Day As Needed. Active acetaminophen (TYLENOL) 500 MG tablet Take 1 tablet by mouth Every 8 (Eight) Hours As Needed. Active cetirizine (zyrTEC) 10 MG tablet Take 1 tablet by mouth Daily. 30 tablet 1 06/12/19 23 Active lactobacillus acidophilus (RISAQUAD) capsule capsule Take 1 capsule by mouth Daily. 1 capsule 1 06/13/19 23 Active pantoprazole (PROTONIX) 40 MG EC tabletIndicatio ns:Gastroesopha geal reflux disease without esophagitis Take 1 tablet by mouth Daily. 60 tablet 2 06/16/19 23 Active Inclisiran Sodium 284 MG/1.5ML solution prefilled syringe Inject 1.5 mL under the skin into the appropriate area as directed Every 6 (Six) Months. Active guaiFENesin (MUCINEX) 600 MG 12 hr tablet Take 2 tablets by mouth As Needed for Cough. Active Peppermint Oil (IBGARD PO) Take 20 drops by mouth Daily. Active coenzyme Q10 100 MG capsule Take 2 capsules by mouth Daily. Active metoprolol succinate XL (Toprol XL) 50 MG 24 hr tabletIndicatio ns:Paroxysmal 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 Take 1 tablet by mouth Daily. 90 tablet 1 01/30/20 23 Active alendronate (FOSAMAX) 70 MG tablet Take 1 tablet by mouth 1 (One) Time Per Week. 02/18/20 24 Active colestipol (COLESTID) 1 g tablet Take 1 tablet by mouth Daily. 02/08/20 24 Active Myrbetriq 50 MG tablet sustained-relea se 24 hour 24 hr tablet Take 25 mg by mouth Daily. 03/10/20 24 Active Cholecalciferol (VITAMIN D-3 PO) Take 1 tablet by mouth Daily. Active furosemide (LASIX) 20 MG tablet Take 2 tablets by mouth 3 (Three) Times a Week. And an additional one tablet as needed for weight gain >2 lbs in 24 hours 90 tablet 3 03/30/20 24 Active folic acid (FOLVITE) 1 MG tablet Take 1 tablet by mouth Daily. 90 tablet 3 06/15/19 25 Active methotrexate 2.5 MG tablet Take 6 tablets by mouth 1 (One) Time Per Week. 72 tablet 10/29/19 25 Active warfarin (COUMADIN) 5 MG tablet TAKE 1 TO 1 & 1/2 (ONE TO ONE & ONE-HALF) TABLETS BY MOUTH ONCE DAILY OR DIRECTED BY THE ANTICOAGULATION CLINIC 135 tablet 11/18/19 25 Active dofetilide (TIKOSYN) 125 MCG capsule Take 1 capsule by mouth Every 12 (Twelve) Hours. 180 capsule 3 12/13/19 25 Active dofetilide (TIKOSYN) 125 MCG capsule Take 1 capsule by mouth Every 12 (Twelve) Hours. 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 09/20/2024 Rheumatoid arthritis involvi ng multiple sites with positive rheumatoid factor 06/15/2024 Fracture of vertebra due to osteoporosis 025 Renal insufficiency 06/15/2024 Other fatigue 06/15/2024 History of left hip replacement 06/15/2024 History of bilateral knee replacement 06/15/2024 Generalized osteoarthrosis, involving multiple s ites 06/15/2024 Chronic HFrEF (heart failure with reduced ejection fraction) 03/29/2024 Presence of cardiac pacemaker 02/17/2023 Paroxysmal 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 08/05/2022 Alveolar hypoventilation 06/07/2022 High risk medication use 05/08/2020 Sinus node dysfunction 11/30/2019 AV block, 1st degree 01/29/2018 Abnormal PFT 06/02/[address] scan, chest - po sterior basilar scarring 2014 CT chest 06/02/2017 Overview (06/02/2017): - posterior basilar scarring CT chest 2014, no evidence PE Allergic rhinitis 05/12/2016 DJD (degenerative joint disease) 04/30/2016 Diastolic congestive heart failure 04/30/2016 GERD (gastroesophageal reflux disease) 6 Hypercholesterolemia 04/30/2016 HTN (hypertension) 04/30/2016 Overview (07/05/2019): 24-hour ambulatory blood pressure monitor 06/29/2019: Overall 122/71, 74 bpm. Awake average 128/75, 74 bpm. Asleep average 122/71, 74 bpm Osteoporosis 04/30/2016 DVT (deep venous thrombosis) 04/30/2016 Overview (04/30/2016): h/o Heart valve disease Overview (07/14/2019): Echo January 2015: EF 55-60% mild to moderate Aortic Regurgitation Diastolic dysfunction Echocardiogram 07/14/2019: EF 60%, Mild AR, TR, MR, RSVP 34 mmHg, diastolic dysfunction grade 1. Hyperlipidemia Overview (10/02/2015): Intolerant to statin therapy Atrial fibrillation Overview (08/06/2022): PAF per event recorder April 2015- CHADs-VASc =2; Very brief episode of AFib on event monitor, fall 2014. Patient on anticoagulation/recommended aspirin daily. 14-day threat monitoring analyst 06/29/2019: Average heart rate 74 bpm. PVCs 3.7%, PACs less than 1% PVC (premature ventricular contraction) Overview (11/05/2016): a. Holter monitor worn, 01/09/2015: Minimum heart rate 54 beats per minute, maximum heart rate 125 beats per minute, average heart rate 76 beats per minute. Ventricular ectopies approximately 10,000 (9% PVC burden), supraventricular ectopies 216 (less than 1%). Assessment: Normal sinus rhythm with sinus bradycardia and sinus tachycardia, average heart rate of 76 beats per minute, frequent premature ventricular contractions with multifocal appearance with PVC couplet, longest VT run 3 beats. Rare premature atrial beats. No abnormal pauses. b. 2D echocardiogram, 01/23/2015: EF 55% to 60%, diastolic dysfunction, mild to moderate AR. c. Initiation of flecainide therapy per Logan Leal MD, May 2015, with improvement upon symptoms.-- 07/17/2015: EKG reveals normal sinus rhythm with 1 PVC, heart rate 79 BPM, QTc 474. D. 48 Hour Holter: 10/06/16 24.5 % PVC burden E. Echocardiogram 10/2016 EF 53%, mild AR F. Lexiscan Cardiolite 10/2016: no ischemia. EF 41%. The EF differs from echocardiogram calculation that may be due to gating error with frequent PVC Arthritis Neoplasm of breast, female, malignant OSIRIS on CPAP Overview (04/30/2016): . PSG of 06/20/2015 reports an AHI of 5.6/hr and this does increase to 25.3/hr and REM with lowest oxygenation saturation of 84%. Resolved Problems Problem Noted Date Diagnosed Date Resolved Date Acute systolic CHF (congestive heart failure) 06/10/19 23 06/12/2022 Pericardial effusion 06/10/2022 023 Acute on chronic heart failu re with preserved ejection fraction (HFpEF) 06/06/2022 08/05/2022 Leukocytosis 06/06/2022 06/12/2022 Acute congestive heart failu re, unspecified heart failure type 06/06/2022 08/05/2022 Elevated d-dimer 06/06/2022 08/05/2022 Subtherapeutic international normalized ratio (INR) 06/06/2022 08/05/2022 Cough 01/17/2020 08/05/2022 SOB (shortness of breath) 06/02/2017 Dyspnea 04/30/2016 08/05/2022 Encounters Date Type Department Care Team Description 12/30/2024 Anticoagulation Visit [facility] [address] [facility] [address] [place] [address] Dayron Diallo, Courtesy Clerk 12/23/2024 Anticoagulation Visit [facility] [address] [facility] [address] [place] [address] Dayron Diallo, Courtesy Clerk 12/16/2024 Anticoagulation Visit [facility] [address] [facility] [address] [place] [address] Claudia Bauer, PharmD 12/12/2024 Refill [facility] [address] [facility] [address] [place] [address] Yon Govea MD Med Refill 12/09/2024 Anticoagulation Visit [facility] [address] [facility] [address] [place] [address] Dayron Diallo, Courtesy Clerk 12/02/2024 Anticoagulation Visit [facility] [address] [facility] [address] [place] [address] Claudia Bauer, PharmD 11/25/2024 Anticoagulation Visit [facility] [address] [facility] [address] [place] [address] Claudia Bauer, PharmD 11/18/2024 Anticoagulation Visit [facility] [address] [facility] [address] [place] [address] Cinthia Mcintyre, Courtesy Clerk 11/17/2024 Refill [facility] [address] [facility] [address] [place] [address] Wojciech Flores MD 11/15/2024 Results Follow-Up [facility] RHE[facility] [address] [place] [phone] David Bernstein MD 11/11/2024 Anticoagulation Visit [facility] [address] [facility] [address] [place] [address] Dayron Diallo, Courtesy Clerk 11/08/2024 Anticoagulation Visit [facility] [address] [facility] [address] [place] [address] Briseida Saldana, PharmD 11/02/2024 Results Follow-Up [facility] [address] [address] David Bernstein MD 11/01/2024 Anticoagulation Visit [facility] [address] [facility] [address] [place] [address] Abner Jack, Courtesy Clerk 10/31/2024 Results Follow-Up [facility] [address] [facility] [address] [place] [address] Yon Govea MD 10/31/2024 Telephone [facility] [address] [facility] [address] [place] [address] Yon Govea MD Fatigue 10/28/2024 2:00 PM EDT - 10/28/2024 11:59 PM EDT Hospital Encounter [facility] NONINVASIVE [facility] [place] [address] [facility] [address] [place] [address] Yon Govea MD Chronic HFrEF (heart failure with reduced ejection fraction) Discharge Disposition: Home or Self Care 10/28/2024 11:15 AM EDT Ancillary Procedure [facility] [address] [facility] [address] [address] 10/28/2024 10:00 AM EDT Office Visit [facility] [address] [facility] [address] [place] [address] David Bernstein MD Rheumatoid arthritis involving multiple sites with positive rheumatoid factor (Primary Dx); High risk medication use; Imbalance; At high risk for falls 10/28/2024 Travel 10/21/2024 Anticoagulation Visit [facility] [address] [facility] [address] [place] [address] Karen Mace, Courtesy Clerk 10/18/2024 Anticoagulation Visit [facility] [address] [facility] [address] [place] [address] Karen Mace, Courtesy Clerk 10/10/2024 Telephone [facility] [address] [facility] [address] [place] [address] Yon Govea MD 10/10/2024 Anticoagulation Visit [facility] [address] [facility] [address] [place] [address] Dayron Diallo, Courtesy Clerk from Last 3 Months Family History Medical History Relation Name Comments Arthritis Daughter Sebastian's thyroiditis Daughter Hemochromatosis Daughter Osteoporosis Daughter Thyroid cancer Daughter Dementia Father Heart failure Father Kidney failure Father Arthritis Mother COPD Mother Cancer Mother Dementia Mother Heart disease Mother Heart failure Mother Osteoporosis Mother No Known Problems Sister Breast cancer Neg Hx Endometrial cancer Neg Hx Ovarian cancer Neg Hx Relation Name Status Comments Daughter Father Mother (Age 94) Sister Social History Tobacco Use Types Packs/Day Years [...] Sign Reading Time Taken Comments Blood Pressure 118/63 10/28/2024 2:32 PM EDT Pulse 68 10/28/2024 9:54 AM EDT Temperature 35.9 C (96.7 F) 10/28/2024 9:54 AM EDT Respiratory Rate 16 08/22/2022 1:15 PM EDT Oxygen Saturation 97% 09/20/2024 9:49 AM EDT Inhaled Oxygen Concentration - - Weight 81.2 kg (179 lb) 10/28/2024 2:32 PM EDT Height 162.6 cm (5' 4 ) 10/28/2024 2:32 PM EDT Body Mass Index 30.73 10/28/2024 2:32 PM EDT Plan of Treatment Upcoming Encounters Date Type Department Care Team (Late st Contact Info) Description 01/12/2025 11:30 AM EDT Office Visit [facility] CARD[facility] [address] [place] [address] [place] [address] Wojciech Flores MD [address] [facility] [address] [place], [place] [id number] 02/21/2025 10:45 AM EDT Office Visit [facility] C[facility] [address] [facility] [address] [place] [address] Yon Govea MD [address] [facility] [address] [place], [place] [phone] 02/28/2025 11:00 AM EDT Appointment [facility] [address] [place] [address] 02/28/2025 1:45 PM EDT Office Visit [facility] RHE[facility] [address] [phone] Yue Pandey, YURI [address] [facility] [address] [place] [address] 06/30/2025 11:30 AM EST Office Visit [facility] [address] [place] [address] David Bernstein MD [address] [facility] [address] [place] [address] Health Maintenance Due Date Last Done Comments TDAP/TD VACCINES (1 - Tdap) 1961 COLOGUARD 1987 COLON CANCER SCREENING 5 YEA R SIGMOIDOSCOPY [address] COLONOGRAPHY 1987 FECAL OCCULT BLOOD TEST 1987 FIT Testing (1 year) 1987 ZOSTER VACCINE (1 of 2) 1992 Pneumococcal Vaccine 50+ (2 of 2 - PCV) 2014 2013 DXA SCAN 08/16/2015 08/15/2013 ANNUAL WELLNESS VISIT 10/28/2016 10/29/2015 RSV Vaccine - Adults (1 - 1- dose 75+ series) 2017 LIPID PANEL 08/21/2023 08/20/2022, 0209/2022, 05/13/2022, Additional history exists COVID-19 Vaccine (2024-2 6 season) 2025 03/13/2021, 06/11/2020, 05/09/2020 INFLUENZA VACCINE 02/01/2025 02/19/2022, , 02/01/2022, Additional history exists COLONOSCOPY 02/14/2032 02/13/2022, 02/01, 07/13/2017, Additional history exists COLORECTAL CANCER SCREENING 02/14/2032 MAMMOGRAM Discontinued 02/26/2024, 02/02, 10/22/2021, Additional history exists Medical Devices Implanted Type Area [employer] Device Identifier Shelf Expiration Date Model / Serial / Lot Ld Pm Tendril Sts 6f52cm [id number] - [id number] - [id number] Implanted:Qty: 1 on 12/14/2019 by Barry Hennessy MD at [facility] Lead [employer] 10/01/[id number] / [id number] / [id number] Ld Pm Tendril Sts 6f46cm [id number] - [id number] - [id number] Implanted:Qty: 1 on 12/14/2019 by Barry Hennessy MD at [facility] Lead [employer] 10/01/[id number] / [id number] / [id number] Gen Pm Assurity Mri Dr Garcia [id number] - [id number] - [id number] Implanted:Qty: 1 on 12/14/2019 by Barry Hennessy MD at [facility] Pacemaker [employer] 05/03/2021 [id number] / [id number] / [id number] Procedures Procedure Name Priority Date/Time Associated Diagnosis Comments PROTIME-INR Routine 12/30/2024 PROTIME-INR Routine 12/23/2024 PROTIME-INR Routine 12/16/2024 PROTIME-INR Routine 12/09/2024 PROTIME-INR Routine 12/02/2024 PROTIME-INR Routine 11/25/2024 PROTIME-INR Routine 11/18/2024 C-REACTIVE PROTEIN Routine 11/14/2024 10 :07 AM EDT Rheumatoid arthritis involving multiple sites with positive rheumatoid factor High risk medication use SCANNED - LABS 11/14/2024 COMPREHENSIVE METABOLIC PANEL Routine 11/14/2024 Rheumatoid arthritis involving multiple sites with positive rheumatoid factor High risk medication use PROTIME-INR Routine 11/11/2024 PROTIME-INR Routine 11/04/2024 REMOTE DEVICE CHECK 10/31/2024 9 :29 AM EDT PROTIME-INR Routine 10/29/2024 ECHO COMPLETE W/ DOPPLER, COLOR FLOW AND CONTRAST Routine 10/28/2024 3:18 PM EDT Chronic HFrEF (heart failure with reduced ejection fraction) XR HAND 2 VW BILATERAL Routine 11:12 AM EDT Rheumatoid arthritis involving multiple sites with positive rheumatoid factor PROTIME-INR Routine 10/21/2024 PROTIME-INR Routine 10/16/2024 PROTIME-INR Routine 10/10/2024 MAMMO SCREENING MODIFIED WITH TOMOSYNTHESIS RIGHT W CAD Routine 02/26/2024 11:19 AM EDT Visit for screening mammogram LIPID PANEL Routine 06/08/2022 10:16 AM EST from Last 3 Months or Most Recently Relevant to Health Maintenance Results * Protime-INR (12/30/2024) Only the most recent of13 resultswithin the time period is included. INR 2.20 Blood 12/30/2024 Art Rodriguez MD LAB BLOOD ORDERABLES Agata l Result * C-reactive Protein (11/14/2024 10:07 AM EDT) Blood David Bernstein MD LAB BLOOD ORDERABLES Final Result [facility] ([facility] [address] [place] [address], [place] [phone] * LABS SCANNED (11/14/2024) us David Bernstein MD LAB BLOOD ORDERABLES Final Result * Comprehensive Metabolic Panel (11/14/2024) Blood us David Bernstein MD LAB BLOOD ORDERABLES Final Result Performing Organization Address City/[facility]/ZIP Co de Phone Number [facility] (AMBUL[facility]) [address] [place] [address], [place] [phone] * Remote Device Check (10/31/2024 9:29 AM EDT) Date Time Interrogation Session [id number] [facility] Type Interrogation Session Remote Patient Initiated [facility] Implantable Pulse Generator [employer] [facility] Implantable Pulse Generator Type IPG [facility] Implantable Pulse Generator Model 2272 Assurity MRI(TM) [facility] Implantable Pulse Generator Serial Number [id number] [facility] Implantable Pulse Generator Implant Date 20191214 [facility] Battery Remaining Percentage 55.00 % [facility] Battery Remaining Longevity 69.0 mo [facility] Battery Voltage 3.010 [facility] Battery LOTTERIES AGENT Trigger 2.600 [facility] Battery Status Middle of Service [facility] Will Statistic RA Percent Paced 27.00 [facility] Atrial Tachy Statistic AT/AF Ilion Percent 1.00 [facility] Lead Channel RA Sensing Intrinsic Amplitude 3.300 [facility] Lead Channel Setting RA Sensing Sensitivity 0.50 [facility] Lead Channel RA Impedance Value 460 [facility] Lead Channel Setting RA Pacing Amplitude 2.000 [facility] Lead Channel Setting RA Pacing Pulse Width 0.5 [facility] Will Setting Mode (NBG Code) AAIR [facility] Will Setting Lower Rate Limit 70 [facility] Will Setting AT Mode Switch Rate 160 [facility] Will Setting Maximum Sensor Rate 105 [facility] Lead Channel Setting RA Sensing Polarity Bipolar [facility] Lead Channel Setting RV Sensing Polarity Bipolar [facility] Lead Channel Setting RA Pacing Polarity Bipolar [facility] Lead Channel Setting RV Pacing Polarity Bipolar [facility] Lead Channel RA Pacing Threshold Polarity Bipolar [facility] 10/31/2024 9:29 AM EDT us Yon Govea MD CV IMPLANTABLE CARDIAC DEVICE Fi nal Result [facility] * ECHO COMPLETE W/ DOPPLER, COLOR FLOW AND CONTRAST (10/28/2024 3:18 PM EDT) EF(MOD-bp) 56.0 % LVIDd 5.5 cm LVIDs 4.0 cm IVSd 1.40 cm LVPWd 1.30 cm FS 27.3 % IVS/LVPW 1.08 cm ESV(cubed) 64.0 ml LV Sys Vol (BSA corrected) 34.1 cm2 EDV(cubed) 166.4 ml LV Cheung Vol (BSA corrected) 72.9 cm2 LV mass(C)d 320.9 grams LVOT area 3.5 cm2 LVOT diam 2.10 cm EDV(MOD-sp2) 142.0 ml EDV(MOD-sp4) 136.0 ml ESV(MOD-sp2) 52.8 ml ESV(MOD-sp4) 63.7 ml SV(MOD-sp2) 89.2 ml SV(MOD-sp4) 72.3 ml SVi(MOD-SP2) 47.8 ml/m2 SVi(MOD-SP4) 38.7 ml/m2 SVi (LVOT) 37.5 ml/m2 EF(MOD-sp2) 62.8 % EF(MOD-sp4) 53.2 % MV E max remington 67.9 cm/sec MV A max remington 101.0 cm/sec MV dec time 0.26 sec MV E/A 0.67 Med Peak E' Remington 6.6 cm/sec Lat Peak E' Remington 4.0 cm/sec TR max remington 274.5 cm/sec Avg E/e' ratio 12.81 SV(LVOT) 70.0 ml RV Base 4.2 cm RV Mid 4.6 cm RV Length 6.7 cm RV S' 16.3 cm/sec LA dimension (2D) 3.5 cm LV V1 max 82.2 cm/sec LV V1 max PG 2.7 mmHg LV V1 mean PG 1.00 mmHg LV V1 VTI 20.2 cm Ao pk remington 122.0 cm/sec Ao max PG 6.0 mmHg Ao mean PG 4.0 mmHg Ao V2 VTI 29.7 cm WENDY(I,D) 2.36 cm2 Dimensionless Index 0.68 (DI) AI P1/2t 573.0 msec MV max PG 3.0 mmHg MV mean PG 1.50 mmHg MV V2 VTI 23.5 cm MVA(VTI) 3.0 cm2 MV dec slope 266.5 cm/sec2 TR max PG 30.2 mmHg PA V2 max 96.6 cm/sec PA acc time 0.12 sec Ao root diam 3.3 cm RVSP(TR) 38 mmHg RAP systole 8 mmHg BH CV VAS BP RIGHT ARM 118/63 mmHg Anatomical Region Laterality Modality Ultrasound Narrative 10/28/2024 5:06 PM EDT Left ventricular systolic function is normal. Calculated left ventricular EF = 56% Left ventricular ejection fraction appears to be 56 - 60%. Left ventricular diastolic function is consistent with (grade I) impaired relaxation. Estimated right ventricular systolic pressure from tricuspid regurgitation is mildly elevated (35-45 mmHg). There is a small (<1cm) pericardial effusion. There is thickening of the aortic valve. Mild aortic valve regurgitation is present. Left Ventricle Left ventricular systolic function is normal. Calculated left ventricular EF = 56% Left ventricular ejection fraction appears to be 56 - 60%. Normal left ventricular cavity size and wall thickness noted. All left ventricular wall segments contract normally. Left ventricular diastolic function is consistent with (grade I) impaired relaxation. Right Ventricle Normal right ventricular cavity size noted. Electronic lead present in the ventricle. Right Atrium Normal right atrial cavity size noted. Mitral Valve The mitral valve is normal in structure. Trace to mild mitral valve regurgitation is present. Tricuspid Valve The tricuspid valve is normal in structure. Mild tricuspid valve regurgitation is present. Estimated right ventricular systolic pressure from tricuspid regurgitation is mildly elevated (35-45 mmHg). Aortic Valve The aortic valve is abnormal in structure. The aortic valve exhibits sclerosis. There is thickening of the aortic valve. The aortic valve appears trileaflet. Mild aortic valve regurgitation is present. Pulmonic Valve The pulmonic valve is structurally normal. There is trace pulmonic valve regurgitation present. Pericardium There is a small (<1cm) pericardial effusion. Greater Vessels No dilation of the aortic root is present. No dilation of the sinuses of Valsalva is present. Study Quality The study is technically good for diagnosis. The quality of the study is limited due to breast implants. Enhancement Agent Details Verbal consent was obtained from the patient to use Lumason image enhancer in order to optimize the study. The use of Lumason was indicated to improve delineation of the left ventricular endocardial border. 5 mL of Lumason was manually activated. A total of 2 mL of the activated Lumason was administered and the remaining contrast was wasted and discarded. No adverse reaction to image enhancer was noted. us Yon Govea MD CV ECHO ORDERABLES Final Result * XR Hand 2 View Bilateral (10/28/2024 11:12 AM EDT) Anatomical Region Laterality Modality Upper Extremities, Hand Bilateral [facility] 11/02/2024 4:45 PM EDT Impressions 11/02/2024 4:47 PM EDT Impression: Mixed erosive and productive arthritis. Chondrocalcinosis. CPPD arthropathy should be considered given the joint space narrowing of the metacarpal phalangeal joints and chondrocalcinosis. The erosive changes at the distal interphalangeal joints could be seen with erosive osteoarthritis. Electronically Signed: Tiffany Vila MD 11/02/2024 4:47 PM EDT Workstation ID: [id number] Narrative 11/02/2024 4:47 PM EDT XR HAND [...] MD 11/02/2024 4:47 PM EDT Workstation ID: [id number] us David Bernstein MD IMG DIAGNOSTIC IMAGING [facility] Final Result * Mammo Screening Modified With Tomosynthesis Right With CAD (02/26/2024 11:19 AM EDT) Anatomical Region Laterality Modality Breast Right Mammography 03/01/2024 3:19 PM EDT Impressions 03/01/2024 3:21 PM EDT No suspicious abnormality identified. OVERALL ASSESSMENT: ACR BI-RADS CATEGORY: 1, NEGATIVE: Recommend continued routine annual screening mammogram. The standard false-negative rate of mammography is between 10% and 25%. Complex patterns or increased breast density will markedly elevate the false-negative rate of mammography. A letter, in lay terminology, with the results of this exam will be mailed to the patient. This report was finalized on 03/01/2024 3:21 PM by Juanis Caldera MD. Narrative 03/01/2024 3:21 PM EDT RIGHT DIGITAL SCREENING MAMMOGRAM WITH TOMOSYNTHESIS CLINICAL INDICATION: Screening mammogram, status post left mastectomy. TECHNIQUE: Right low dose full field digital breast tomosynthesis imaging was performed. CAD was utilized. COMPARISON: Comparison is made to prior studies dating back to 08/19/2017. FINDINGS: The breast tissue is heterogeneously dense. RIGHT BREAST: No suspicious masses, calcifications, or areas of distortion are seen. us Cas Davey MD IMG MAMMOGRAPHY ORDERABLES Fi nal Result * (ABNORMAL) Lipid Panel (06/08/2022 10:16 AM EST) Total Cholesterol 101 0 - 200 mg/dL 06/08/2022 10:49 AM EST [facility] Triglycerides 113 0 - 150 mg/dL 06/08/2022 10:49 AM EST [facility] HDL Cholesterol 37(L) 40 - 60 mg/dL 06/08/2022 10:49 AM EST [facility] LDL Cholesterol 43 0 - 100 mg/dL 06/08/2022 10:49 AM EST [facility] VLDL Cholesterol 21 5 - 40 mg/dL 06/08/2022 10:49 AM EST [facility] LDL/HDL Ratio 1.12 06/08/2022 10:49 AM EST [facility] Blood Venipuncture / Unknown 06/08/2022 10:16 AM EST 06/08/2022 10:22 AM EST [facility] - 06/08/2022 10:49 AM EST Cholesterol Reference Ranges (U.S. Department of Health and Human Services ATP III Classifications) Desirable <200 mg/dL Borderline High 200-239 mg/dL High Risk >240 mg/dL Triglyceride Reference Ranges (U.S. Department of Health and Human Services ATP III Classifications) Normal <150 mg/dL Borderline High 150-199 mg/dL High 200-499 mg/dL Very High >500 mg/dL HDL Reference Ranges (U.S. Department of Health and Human Services ATP III Classifications) Low <40 mg/dl (major risk factor for CHD) High >60 mg/dl ('negative' risk factor for CHD) LDL Reference Ranges (U.S. Department of Health and Human Services ATP III Classifications) Optimal <100 mg/dL Near Optimal 100-129 mg/dL Borderline High 130-159 mg/dL High 160-189 mg/dL Very High >189 mg/dL Orville Kumar MD LAB BLOOD ORDERABLES Final Resul t [facility]
[address] [place] [address], from Last 3 Months or Most Recently Relevant to Health Maintenance Insurance MEDICARE A & B Member Subscriber Plan / Payer (Ef fective 2007-Present) Name:Luz Skaggs Member ID:[id number] Relation to Subscriber:Self Name:Luz Skaggs Subscriber ID:[id number] Payer ID:[id number] Group ID:Not on file Type:Not on file Address: [facility] [id number] [place] [address] [id number] [facility] Advance Directives Documents on File Type Date Recorded Patient Health Informatics Advisor Expl anation POWER OF HEALTHCARE RISK CONTROL CONSULTANT - SCAN 07/04/2021 11:17 AM DURABLE POWER OF HEALTHCARE RISK CONTROL CONSULTANT POWER OF HEALTHCARE RISK CONTROL CONSULTANT - SCAN 02/01/2018 10:59 AM POWER OF HEALTHCARE RISK CONTROL CONSULTANT 01/24/2011 * CPR (Attempt to Resuscitate) (Latest Code Status on File) Date Activated Date Inactivated Comments 08/04/2022 4:31 PM 08/06/2022 5:29 PM Question Answer Comments Code Status (Patient has no pulse and is not breathing): CPR (Attempt to Resuscitate) Medical Interventions (Patie nt has pulse or is breathing): Full Support Level Of Support Discussed With: Patient Release to patient: Routine Release * CPR (Attempt to Resuscitate) Date Activated Date Inactivated Comments 06/06/2022 10:08 PM 06/12/2022 2:43 PM Question Answer Comments Code Status (Patient has no pulse and is not breathing): CPR (Attempt to Resuscitate) Medical Interventions (Patie nt has pulse or is breathing): Full Support Level Of Support Discussed With: Patient Care Teams Clergy Member Relationship Specialty Start Date End Date Ferny Gentile MD [address] [place] [address] [address] PCP - General 06/11/15
--- OUTSIDE RECORDS SUMMARY | 2025-01-05 17:00 | XMS_ITS | Encounter Summary ---
[facility] Address [address] [place] [address] Care Team Providers Care Trousseau Consultant Name Role Phone Ferny Gentile MD Primary Care Provider [phone] Encounter Details Date Type Department Care Team (Late st Contact Info) Description 11/15/2024 Results Follow-Up [facility] [address] [address] David Bernstein MD 330 [facility] [address] [place] [address] Social History Tobacco Use Types [...] 11:30 AM EDT Office Visit [facility] CARDIOLOGY [address] [facility] [place] [address] Wojciech Flores MD [address] [facility] [address] [place], [place] [id number] 02/21/2025 10:45 AM EDT Office Visit [facility] CARDI[facility] [address] [facility] [address] [place] [address] Yon Govea MD 1720 [facility] [address] [place], [place] [address] 02/28/2025 11:00 AM EDT Appointment [facility]ENTER 206 [place] [address] 02/28/2025 1:45 PM EDT Office Visit [facility]HEUM[facility]OLOG[facility] [address] [address] Yue Pandey APRN [address] [id number] 06/30/2025 11:30 AM EST Office Visit [facility] [address] [address] David Bernstein MD [address] [id number] documented as of this encounter Visit Diagnoses Not on filedocumented in this encounter Care Teams Trousseau Consultant Relationship Specialty Start Date End Date Ferny Gentile MD 1210 [facility] 36 E [facility] 1[address] [place] [address] PCP - General 06/11/15 documented as of this encounter
--- OUTSIDE RECORDS SUMMARY | 2025-01-05 17:00 | XMS_ITS | Encounter Summary ---
[facility] Address [address] [place] [address] Care Team Providers Care Receiving Clerk Name Role Phone Ferny Gentile MD Primary Care Provider [phone] Encounter Details Date Type Department Care Team (Late st Contact Info) Description 11/02/2024 Results Follow-Up [facility] RHEUMATOLOGY [address] [address] David Bernstein MD [address] [facility] 100 [place] [address] Social History Tobacco Use Types [...] Description 01/12/2025 11:30 AM EDT Office Visit [facility] CARDIOLOGY 210 [facility] [place] [address] Wojciech Flores MD 1720 [facility] [address] [place], [place] [id number] 02/21/2025 10:45 AM EDT Office Visit [facility] CARDIOLOGY 3000 [facility] [address] [place] [address] Yon Govea MD 1720 [facility] [address] [place], [place] [address] 02/28/2025 11:00 AM EDT Appointment [facility] 206 [place] [address] 02/28/2025 1:45 PM EDT Office Visit [facility] RHEUMATOLOGY [address] [address] Yue Pandey APRN [address] [id number] 06/30/2025 11:30 AM EST Office Visit [facility] RHEUM[facility] [address] [address] David Bernstein MD [address] [phone] documented as of this encounter Visit Diagnoses Not on filedocumented in this encounter Care Teams Receiving Clerk Relationship Specialty Start Date End Date Ferny Gentile MD 1210 [facility] 36 E [facility] [address] [place] [address] PCP - General 06/11/15 documented as of this encounter
--- OUTSIDE RECORDS SUMMARY | 2025-01-05 17:00 | XMS_ITS | Encounter Summary ---
Author Organization [facility] Address [address] [place] [address] Care Team Providers Care Jd Edwards Developer Name Role Phone Ferny Gentile MD Primary Care Provider [phone] Encounter Details Date Type Department Care Team (Late st Contact Info) Description 12/16/2024 Anticoagulation Visit [facility] 1720 [facility] [address] [place] [address] Claudia Bauer, PharmD [address]40 [place] [address] Social History Tobacco Use Types [...] Progress Notes * Claudia Bauer, PharmD - 12/16/2024 1:08 PM EDT Anticoagulation Clinic - Remote Progress [...] 11/01 Rec'd 11/08 Inc GLV Date 12/16 Total Weekly Dose 52.5 mg INR 2.8 Notes Phone Interview: Verbal Release Authorization signed on 06/29/2019 -- september speak with Litzy Naranjo (daughter) Tablet Strength: 5mg tablets Patient Contact Info: [phone]; Litzy Naranjo (daughter) Patient Findings Negatives: Signs/symptoms of thrombosis, Signs/symptoms of bleeding, Laboratory test error suspected, Change in health, Change in alcohol use, Change in activity, Upcoming invasive procedure, Emergency department visit, Upcoming dental procedure, Missed doses, Extra doses, Change in medications, Change in diet/appetite, Hospital admission, Bruising, Other complaints Comments: All findings negative per patient Plan: INR was therapeutic 12/16 at 2.8 (goal 2 to 3). Spoke with patient Instructed patient to continue warfarin 7.5 mg daily until recheck. Recheck INR in 1 week, 12/23/24 Patient prefers testing Thursday. Verbal information provided over the phone. Luz Skaggs RBV dosing instructions, expresses understanding by teach back, and has no further questions at this time. Claudia Bauer PharmD 12/19/2024 09:31 EDT documented in this encounter Plan of Treatment Upcoming Encounters Date Type Department Care Team (Late st Contact Info) Description 01/12/2025 11:30 AM EDT Office Visit [facility] CARDIOLOGY [address] [facility] [address] [place] [address] Wojciech Flores MD 1720 [facility] [address] [place] [address] 02/21/2025 10:45 AM EDT Office Visit [facility] [address] [facility] [address] [place] [address] Yon Govea MD 1720 [facility] [address] [place] [address] 02/28/2025 11:00 AM EDT Appointment [facility] [place] [address] [place] [address] 02/28/2025 1:45 PM EDT Office Visit [facility] RHEUMATOLOGY [address] [phone] Yue Pandey, GARBAGE TRUCK DRIVER 330 [facility] 100 [place] [address] 06/30/2025 11:30 AM EST Office Visit [facility] RHEUMATOLOGY [address] [phone] David Bernstein MD [address] [address] documented as of this encounter Procedures Procedure Name Priority Date/Time Associated Diagnosis Comments PROTIME-INR Routine 12/16/2024 documented in this encounter Results * Protime-INR (12/16/2024) INR 2.80 Blood us Historical Provider LAB BLOOD ORDERABLES Agata l Result documented in this encounter Visit Diagnoses Not on filedocumented in this encounter Care Teams Jd Edwards Developer Relationship Specialty Start Date End Date Ferny Gentile MD [address] [place] [address] PCP - General 06/11/15 documented as of this encounter
--- OUTSIDE RECORDS SUMMARY | 2025-01-05 17:00 | XMS_ITS ---
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 Patient on anticoagulation/recommended aspirin daily. 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 PVCs [...] REM with lowest oxygenation saturation of 84%. Current Treatment and Therapy Plans No current plan information found. Past Treatment and Therapy Plans No past plan information found. Lifetime Dose Tracking * Chemical Lifetime Dose Automatic Entry Manual Entr y Cumulative Air Kerma 70 mGy 0 mGy 70 mGy Resolved Problems Problem Noted Date Diagnosed Date [...]
--- OUTSIDE RECORDS SUMMARY | 2025-01-05 17:00 | XMS_ITS | Encounter Summary ---
[facility] Address [address] [place] [address] Care Team Providers Care Delphi Programmer Name Role Phone Ferny Gentile MD Primary Care Provider [phone] Encounter Details Date Type Department Care Team (Late st Contact Info) Description 09/15/2024 Results Follow-Up [facility] RHEUMATOLOGY [address] [address] David Bernstein MD 330 [facility] 100 [place] [address] Social History Tobacco Use Types [...] Visit [facility] CARDIOLOGY 210 [facility] [place] [address] Wojciech Flores MD 1720 [facility] [address] [place], [place] [address] 02/21/2025 10:45 AM EDT Office Visit [facility] CARDIOLOGY 3000 [facility] [address] [place] [address] Yon Govea MD 1720 [facility] [address] [place], [place] [address] 02/28/2025 11:00 AM EDT Appointment [facility] 206 [place] [address] 02/28/2025 1:45 PM EDT Office Visit [facility] R[facility]UM[facility] [address] [address] Yue Pandey APRN [address] [phone] 06/30/2025 11:30 AM EST Office Visit [facility] R[facility]UM[facility] [address] [address] David Bernstein MD [address] [id number] documented as of this encounter Visit Diagnoses Not on filedocumented in this encounter Care Teams Delphi Programmer Relationship Specialty Start Date End Date Ferny Gentile MD 1210 [facility] 36 E [facility] 1[address] [place] [address] PCP - General 06/11/15 documented as of this encounter
--- OUTSIDE RECORDS SUMMARY | 2025-01-05 17:00 | XMS_ITS | Encounter Summary ---
[facility] Address [address] [place] [address] Care Team Providers Care Printing Engineer Name Role Phone Ferny Gentile MD Primary Care Provider [phone] Encounter Details Date Type Department Care Team (Late st Contact Info) Description 11/25/2024 Anticoagulation Visit [facility] 1720 [facility] [address] [place] [address] Claudia Bauer, PharmD [address]40 [place] [address] Social History Tobacco Use Types [...] Progress Notes * Claudia Bauer, PharmD - 11/25/2024 2:41 PM EDT Anticoagulation Clinic - Remote Progress [...] 10/16 10/21 10/29 11/04 11/11 11/18 11/25 Total Weekly Dose 52.5 mg 52.5 mg 52.5 mg 52.5 mg 52.5 mg 55 mg 52.5 mg 55 mg INR 2.2 1.9 2.3 2.6 1.8 2.3 1.7 2.2 Notes Rec'd 10/18 Rec'd 11/01 Rec'd 11/08 Inc GLV Phone Interview: Verbal Release Authorization signed on 06/29/2019 -- may speak with Litzy Naranjo (daughter) Tablet Strength: 5mg tablets Patient Contact Info: [phone]; Litzy Naranjo (daughter) Patient Findings Negatives: Signs/symptoms of thrombosis, Signs/symptoms of bleeding, Laboratory test error suspected, Change in health, Change in alcohol use, Change in activity, Upcoming invasive procedure, Emergency department visit, Upcoming dental procedure, Missed doses, Extra doses, Change in medications, Change in diet/appetite, Hospital admission, Bruising, Other complaints Comments: All findings negative per patient Plan: INR is therapeutic at 2.2 (goal 2 to 3). Instructed patient to continue warfarin 7.5 mg daily untilrecheck. Recheck INR in 1 week, 12/02/24 Patient prefers testing Thursday. Verbal information provided over the phone. Luz Skaggs RBV dosing instructions, expresses understanding by teach back, and has no further questions at this time. Claudia Bauer PharmD 11/25/2024 14:44 EDT documented in this encounter Plan of Treatment Upcoming Encounters Date Type Department Care Team (Late st Contact Info) Description 01/12/2025 11:30 AM EDT Office Visit [facility] CARDIOLOGY [address] [place] [address] Wojciech Flores MD [address] [facility] [address] [place] [address] 02/21/2025 10:45 AM EDT Office Visit [facility] CARDIOLOGY 3000 [facility] [address] [place] [address] Yon Govea MD 1720 [facility] [address] [place] [address] 02/28/2025 11:00 AM EDT Appointment [facility] [address] [place] [address] 02/28/2025 1:45 PM EDT Office Visit [facility] RHEUMATOLOGY [address] [phone] Yue Pandey APRN [address] [phone] 06/30/2025 11:30 AM EST Office Visit [facility] RHEUMATOLOGY [address] [address] David Bernstein MD [address] [phone] documented as of this encounter Procedures Procedure Name Priority Date/Time Associated Diagnosis Comments PROTIME-INR Routine 11/25/2024 documented in this encounter Results * Protime-INR (11/25/2024) INR 2.20 Blood us Historical Provider LAB BLOOD ORDERABLES Agata l Result documented in this encounter Visit Diagnoses Not on filedocumented in this encounter Care Teams Printing Engineer Relationship Specialty Start Date End Date Ferny Gentile MD 1210 [facility] [address] [place] [address] PCP - General 06/11/15 documented as of this encounter
--- OUTSIDE RECORDS SUMMARY | 2025-01-05 17:00 | XMS_ITS | Encounter Summary ---
[facility] Address [address] [place] [address] Care Team Providers Care Carbon Dioxide Operator Name Role Phone Ferny Gentile MD Primary Care Provider [phone] Encounter Details Date Type Department Care Team (Late st Contact Info) Description 10/31/2024 Results Follow-Up [facility] CARDIOLOGY 1720 [facility] 400 [place] [address] Yon Govea MD 1720 [facility] [address] [place] [id number] Social History Tobacco Use Types Packs/Day Years [...] Description 01/12/2025 11:30 AM EDT Office Visit [facility] CARDIOLOGY 210 [facility] [place] [address] Wojciech Flores MD [address] [place] [address] 02/21/2025 10:45 AM EDT Office Visit [facility] CARDIOLOGY 3000 [facility] [address] [place] [address] Yon Govea MD 1720 [facility] [address] [place] [address] 02/28/2025 11:00 AM EDT Appointment [facility]ENTER 206 [place] [address] 02/28/2025 1:45 PM EDT Office Visit [facility] RHEUMATOLOGY [address] [address] Yue Pandey, YURI [address] [phone] 06/30/2025 11:30 AM EST Office Visit [facility] RHEUMATOLOGY [address] [address] David Bernstein MD [address] [address] documented as of this encounter Visit Diagnoses Not on filedocumented in this encounter Care Teams Carbon Dioxide Operator Relationship Specialty Start Date End Date Ferny Gentile MD 1210 [facility] 36 E [facility] 1[address] [place] [address] PCP - General 06/11/15 documented as of this encounter
--- OUTSIDE RECORDS SUMMARY | 2025-01-05 17:00 | XMS_ITS | Encounter Summary ---
[facility] Address [address] [place] [address] Care Team Providers Care Sound Technician Supervisor Name Role Phone Ferny Gentile MD Primary Care Provider [phone] Reason for Visit * Reason Comments Med Refill Encounter Details Date Type Department Care Team (Late st Contact Info) Description 01/30/2024 Refill [facility] CARDIOLOGY [address] [place] [address] Wojciech Flores MD 1720 [facility] [place] [address] Med Refill Social History Tobacco Use Types [...] Visit [facility] CARDI[facility]Y 210 [facility] [place] [address] Wojciech Flores MD [address] [facility] [address] [facility] [address] [place] [phone] 02/21/2025 10:45 AM EDT Office Visit [facility] CARD[facility] 3000 [facility] [address] [place] [address] Yon Govea MD 1720 [facility] 400 [place] [address] 02/28/2025 11:00 AM EDT Appointment [facility] [address] [place] [address] 02/28/2025 1:45 PM EDT Office Visit [facility] RHE[facility] [address] [address] Yue Pandey APRN [address] [address] 06/30/2025 11:30 AM EST Office Visit [facility] R[facility] [address] [address] David Bernstein MD [address] [phone] documented as of this encounter Visit Diagnoses Not on filedocumented in this encounter Care Teams Sound Technician Supervisor Relationship Specialty Start Date End Date Ferny Gentile MD 1210 [facility] 36 E [facility] 1B [place] [address] PCP - General 06/11/15 documented as of this encounter
--- OUTSIDE RECORDS SUMMARY | 2025-01-05 17:00 | XMS_ITS | Clinical Summary ---
Author Organization Healthcare Address [address] [place] [address] Care Team Providers Care Nuclear Fuels Research Engineer Name Role Phone Ferny Gentile MD Primary Care Provider [phone] Family History Medical History Relation Name Comments [...] of Treatment Not on file Care Teams Nuclear Fuels Research Engineer Relationship Specialty Start Date End Date Ferny Gentile MD [address] [facility] [address] [place] [address] PCP - General 09/14/20
--- OUTSIDE RECORDS SUMMARY | 2025-01-05 17:00 | XMS_ITS | Encounter Summary ---
[facility] Address [address] [place] [address] Care Team Providers Care Chain Maker Hand Name Role Phone Ferny Gentile MD Primary Care Provider [phone] Encounter Details Date Type Department Care Team (Late st Contact Info) Description 11/10/2023 Anticoagulation Visit [facility] [address] [place] [address] Karen Mace, High School Principal Social History Tobacco Use Types Packs/Day Years [...] Description 01/12/2025 11:30 AM EDT Office Visit [facility] [address] [facility] [place] [address] Wojciech Flores MD 17[address] [facility] [address] [place] [id number] 02/21/2025 10:45 AM EDT Office Visit [facility] [address] [place] [address] Yon Govea MD 1720 [facility] 400 [place] [address] 02/28/2025 11:00 AM EDT Appointment [facility] [address] [facility] [place] [address] 02/28/2025 1:45 PM EDT Office Visit [facility] 330 [facility] 100 [place] [address] Yue Pandey, HAT IRONER [address] [id number] 06/30/2025 11:30 AM EST Office Visit [facility] [address] [address] David Bernstein MD [address] [id number] documented as of this encounter Procedures Procedure Name Priority Date/Time Associated Diagnosis Comments PROTIME-INR Routine 11/06/2023 documented in this encounter Results * Protime-INR (11/06/2023) INR 2.70 Blood 11/06/2023 us Historical Provider LAB BLOOD ORDERABLES Edit ed Result - Final documented in this encounter Visit Diagnoses Not on filedocumented in this encounter Care Teams Chain Maker Hand Relationship Specialty Start Date End Date Ferny Gentile MD 1210 [facility] [address] [address] PCP - General 06/11/15 documented as of this encounter
--- OUTSIDE RECORDS SUMMARY | 2025-01-05 17:00 | XMS_ITS | Encounter Summary ---
[facility] [address] [place] [address] Care Team Providers Care Snagger Name Role Phone Ferny Gentile MD Primary Care Provider [phone] Encounter Details Date Type Department Care Team (Late st Contact Info) Description 11/18/2024 Anticoagulation Visit [facility] [address] [place] [address] Francisco Javier, Cinthia, Manager Progressive Care Social History Tobacco Use Types Packs/Day Years [...] the money to buy more. Never true 02/06/20 23 Within the past 12 months, t [...] as of this encounter Progress Notes * Cinthia Mcintyre, Manager Progressive Care - 11/18/2024 1:06 PM EDT Anticoagulation Clinic - Remote Progress [...] 06/2019 INR History: Date 10/2211/14/2311/19 8 812/17 Total WeeklyDose 52.5 mg 52.5 mg 52.5 [...] 10/10 10/16 10/21 10/29 11/04 11/11 11/18 Total Weekly Dose 52.5 mg 52.5 mg 52.5 mg 52.5 mg 52.5 mg 55 mg 52.5 mg INR 2.2 1.9 2.3 2.6 1.8 2.3 1.7 Notes Rec'd 10/18 Rec'd 11/01 Rec'd 11/08 Phone Interview: Verbal Release Authorization signed on 06/29/2019 -- may speak with Litzy Naranjo (daughter) Tablet Strength: 5mg tablets Patient Contact Info: [phone]; Litzy Naranjo (daughter) Patient Findings Positives: Change in diet/appetite Negatives: Signs/symptoms of thrombosis, Signs/symptoms of bleeding, Laboratory test error suspected, Change in health, Change in alcohol use, Change in activity, Upcoming invasive procedure, Emergency department visit, Upcoming dental procedure, Missed doses, Extra doses, Change in medications, Hospital admission, Bruising, Other complaints Comments: Per Pt No GLV, 2 serving of fried livers. All other findings negative. Plan: INR was sub therapeutic 11/18 at 1.7 (goal 2 to 3). Per Briseida Saldana PharmD Instructed patient to take warfarin 10mg today, then continue warfarin 7.5 mg daily until recheck. Recheck INR in 1 week, 7.25.25 Patient prefers testing Thursday. Verbal information provided over the phone. Luz Skaggs RBV dosing instructions, expresses understanding by teach back, and has no further questions at this time. Cinthia Francisco Javier [facility] I, Briseida Saldana, PharmD, have reviewed the note in full and agree with the assessment and plan. 11/18/24 13:40 EDT documented in this encounter Plan of Treatment Upcoming Encounters Date Type Department Care Team (Late st Contact Info) Description 01/12/2025 11:30 AM EDT Office Visit [facility] [address] [place] [address] Wojciech Flores MD [address] [facility] [address] [place] [address] 02/21/2025 10:45 AM EDT Office Visit [facility] [address] [facility] [address] [place] [address] Yon Govea MD 1720 [facility] [address] [place], [place] [phone] 02/28/2025 11:00 AM EDT Appointment [facility] [address] [place] [address] 02/28/2025 1:45 PM EDT Office Visit [facility] [address] [phone] Yue Pandey APRN [address] [id number] 06/30/2025 11:30 AM EST Office Visit [facility] [address] [phone] David Bernstein MD [address] [id number] documented as of this encounter Procedures Procedure Name Priority Date/Time Associated Diagnosis Comments PROTIME-INR Routine 11/18/2024 documented in this encounter Results * Protime-INR (11/18/2024) INR 1.70 Blood 11/18/2024 us Historical Provider LAB BLOOD ORDERABLES Agata l Result documented in this encounter Visit Diagnoses Not on filedocumented in this encounter Care Teams Snagger Relationship Specialty Start Date End Date Ferny Gentile MD 1210 [facility] [address] [place] [address] PCP - General 06/11/15 documented as of this encounter
--- OUTSIDE RECORDS SUMMARY | 2025-01-05 17:00 | XMS_ITS | Encounter Summary ---
[facility] Address [address] [place] [address] Care Team Providers Care Financial Reserve Clerk Name Role Phone Ferny Gentile MD Primary Care Provider [phone] Encounter Details Date Type Department Care Team (Late st Contact Info) Description 11/08/2024 Anticoagulation Visit [facility] [address] [facility] [address] [place] [address] Briseida Saldana, PharmD [address]40 [place] [address] Social History Tobacco Use Types [...] as of this encounter Progress Notes * Briseida Saldana, PharmD - 11/08/2024 10:09 AM EDT Anticoagulation Clinic - Remote Progress Note [...] visit: 06/2019 INR History: Date 10/22 10/29 711/14/2311/19 8/ 812/17 9 Total WeeklyDose 52.5 mg [...] Fall Cefdinir Date 10/10 10/16 10/21 10/29 7/8 Total Weekly Dose 52.5 mg 52.5 mg 52.5 mg 52.5 mg 52.5 mg INR 2.2 1.9 2.3 2.6 1.8 Notes Rec'd 10/18 Rec'd 11/01 Phone Interview: Verbal Release Authorization signed on 06/29/2019 -- may speak with Litzy Naranjo (daughter) Tablet Strength: 5mg tablets Patient Contact Info: [phone]; Litzy Naranjo (daughter) Patient Findings: Negatives: Signs/symptoms of thrombosis, Signs/symptoms of bleeding, Laboratory test error suspected, Change in health, Change in alcohol use, Change in activity, Upcoming invasive procedure, Emergency department visit, Upcoming dental procedure, Missed doses, Extra doses, Change in medications, Change in diet/appetite, Hospital admission, Bruising, Other complaints Comments: All findings negative per patient. Plan: INR was therapeutic 11/04 at 1.8 (goal 2 to 3). Instructed patient to continue warfarin 7.5 mg daily until recheck. Patient self-boosted dose to 10 mg on Thursday, will not make additional dose adjustments at this time. Repeat INR 7.11.25 Patient prefers testing Thursday. Verbal information provided over the phone. Luz Skaggs RBV dosing instructions, expresses understanding by teach back, and has no further questions at this time. Briseida Saldana, PharmD 11/08/2024 10:36 EDT documented in this encounter Plan of Treatment Upcoming Encounters Date Type Department Care Team (Late st Contact Info) Description 01/12/2025 11:30 AM EDT Office Visit [facility] [address] [facility] [place] [address] Wojciech Flores MD [address] [facility] [address] [place] [address] 02/21/2025 10:45 AM EDT Office Visit [facility] [address] [facility] [address] [place] [phone] Yon Govea MD 1720 [facility] [address] [place], [place] [id number] 02/28/2025 11:00 AM EDT Appointment [facility] [address] [place] [address] 02/28/2025 1:45 PM EDT Office Visit [facility] [address] [address] Yue Pandey, YURI [address] [phone] 06/30/2025 11:30 AM EST Office Visit [facility] [address] [address] aDvid Bernstein MD [address] [phone] documented as of this encounter Procedures Procedure Name Priority Date/Time Associated Diagnosis Comments PROTIME-INR Routine 11/04/2024 documented in this encounter Results * Protime-INR (11/04/2024) INR 1.80 Blood 11/04/2024 us Historical Provider LAB BLOOD ORDERABLES Agata l Result documented in this encounter Visit Diagnoses Not on filedocumented in this encounter Care Teams Financial Reserve Clerk Relationship Specialty Start Date End Date Ferny Gentile MD 12[address] [facility] [address] [place] [address] PCP - General 06/11/15 documented as of this encounter
--- OUTSIDE RECORDS SUMMARY | 2025-01-05 17:00 | XMS_ITS | Encounter Summary ---
[facility] Address [address] [place] [address] Care Team Providers Care Glass Worker Name Role Phone Ferny Gentile MD Primary Care Provider [phone] Encounter Details Date Type Department Care Team (Latest Contact Info) Description 06/22/2019 Anticoagulation Visit [facility] [address] [facility] [address] [place] [address] Leticia Vivar, Audio Technician Paroxysmal 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 Social History Tobacco Use [...] Description 01/12/2025 11:30 AM EDT Office Visit [facility] [address] [place] [address] Wojciech Flores MD [address] [facility] [address] [address] [place], [place] [phone] 02/21/2025 10:45 AM EDT Office Visit [facility] [address] [facility] [address] [place] [phone] Yon Govea MD 1720 [facility] [address] [place] [id number] 02/28/2025 11:00 AM EDT Appointment [facility] [address] [address] 02/28/2025 1:45 PM EDT Office Visit [facility] [address] [address] Yue Pandey APRN [address] [phone] 06/30/2025 11:30 AM EST Office Visit [facility] [address] [place] [address] David Bernstein MD [address] [phone] documented as of this encounter Procedures Procedure Name Priority Date/Time Associated Diagnosis Comments PROTIME-INR Routine 06/22/2019 documented in this encounter Results * Protime-INR (06/22/2019) INR 2.10 Blood 06/22/2019 Historical Provider LAB BLOOD ORDERABLES Agata l [...] documented as of this encounter Care Teams Glass Worker Relationship Specialty Start Date End Date Ferny Gentile MD [facility] [facility] [address] [facility] [address] [place] [address] PCP - General 06/11/15 documented as of this encounter
--- OUTSIDE RECORDS SUMMARY | 2025-01-05 17:00 | XMS_ITS | Encounter Summary ---
[facility] Address [address] [place] [address] Care Team Providers Care Documentation Spec Name Role Phone Ferny Gentile MD Primary Care Provider [phone] Reason for Visit * Reason Onset Date Comments Fatigue 10/31/2024 Encounter Details Date Type Department Care Team (Late st Contact Info) Description 10/31/2024 Telephone [facility] 1720 [facility] 400 [place] [address] Yon Govea MD 1720 [facility] 400 [place] [address] Fatigue Social History Tobacco Use Types Packs/Day Years [...] encounter Miscellaneous Notes * Telephone Encounter - Livia Arguelles RN - 11/18/2024 3:55 PM EDT Patient called back to let you know that her fatigue has improved and that she is feeling better. * Telephone Encounter - Stacey Garcia RN - 11/02/2024 8:45 AM EDT Patient notified and voices understanding. She will continue to monitor symptoms for now. * Telephone Encounter - Phyllis Alicia RN - 10/31/2024 10:37 AM EDT Images from the original note were not included. Assisted pt w/manual remote Ramirez pacemaker transmission. Pacing mode AAIR. * Telephone Encounter - Stacey Garcia RN - 10/31/2024 9:30 AM EDT Patient called and states she saw Dr. Govea in clinic on 09/20/2024. She states Dr. Govea decrease her tikosyn dose at this visit. She states since this adjustement she has felt extremely fatigue and weak. She states she has experienced a couple of falls due to the weakness and has been so tired that she doesn't feel like doing things she previously enjoyed. She denies shortness of breath or palpitations. She is unsure what her BP or HR have been. Patient is currently taking Tikosyn 125 mg every 12 hours, Toprol XL 50 mg daily, and Coumadin. Patient transferred to device clinic to send in a remote reading. documented in this encounter Plan of Treatment Upcoming Encounters Date Type Department Care Team (Late st Contact Info) Description 01/12/2025 11:30 AM EDT Office Visit [facility] [address] [facility] [place] [address] Wojciech Flores MD 1720 [facility] [address] [address] 02/21/2025 10:45 AM EDT Office Visit [facility] [address] [facility] [address] [place] [phone] Yon Govea MD 1720 [facility] 400 [place] [address] 02/28/2025 11:00 AM EDT Appointment [facility] [address] [place] [address] 02/28/2025 1:45 PM EDT Office Visit [facility] [address] [address] Yue Pandey, MASS SPECTROMETRY MANAGER [address] [address] 06/30/2025 11:30 AM EST Office Visit [facility] [address] [address] David Bernstein MD [address] [phone] documented as of this encounter Visit Diagnoses Not on filedocumented in this encounter Care Teams Documentation Spec Relationship Specialty Start Date End Date Ferny Gentile MD 1210 [facility] [address] [facility] [address] [place] [address] PCP - General 06/11/15 documented as of this encounter
[2025-01-05 19:06] LABS: Uric Acid 8.1 mg/dl (2.5-6.2)
== END 2025-01-05 23:59 | disposition home or self-care (01) ==
LOC: RAD 16:57
PROVIDERS: PCP Internal Medicine; Visit Provider Internal Medicine
DX: S92.512S Displaced fracture of proximal phalanx of left lesser toe(s), sequela (principal); M79.672 Pain in left foot; M79.89 Other specified soft tissue disorders; M10.9 Gout, unspecified
CPT/HCPCS: 73630; 84550

== ENCOUNTER 2025-01-27 12:29 | Outpatient (CLI) | payer MEDICARE, OTHER, SELFPAY ==
--- OUTSIDE RECORDS SUMMARY | 2025-01-27 12:33 | XMS_ITS | Clinical Summary ---
Author Organization Healthcare Address [address] [place] [address] Care Team Providers Care Newspaper Subscription Solicitor Name Role Phone Ferny Gentile MD Primary Care Provider [phone] Family History Medical History Relation Name Comments [...] of Treatment Not on file Care Teams Newspaper Subscription Solicitor Relationship Specialty Start Date End Date Ferny Gentile MD [address] [facility] [address] [place] [address] PCP - General 09/14/20
[2025-01-27] MEDS: INCLISIRAN SODIUM 284 MG/1.5 ML SYRINGE SUBCUT (12:40)
[2025-01-27 12:43] VITALS: BP 134/69; PULSE 73; RESP 18; O2SAT 94
== END 2025-01-27 23:59 | disposition home or self-care (01) ==
PROVIDERS: PCP Internal Medicine; Visit Provider Internal Medicine
DX: E78.5 Hyperlipidemia, unspecified (principal)
CPT/HCPCS: 96372; J1306

== ENCOUNTER 2025-01-30 15:00 | Outpatient (RCR) | payer MEDICARE, OTHER, SELFPAY | END 2025-01-30 23:59 | disposition home or self-care (01) | LOC: PT 15:00 | PROVIDERS: PCP Internal Medicine; Visit Provider Internal Medicine | DX: R26.89 Other abnormalities of gait and mobility (principal); Z91.81 History of falling | CPT/HCPCS: 97110; 97530 ==

== ENCOUNTER 2025-02-01 15:40 | Outpatient (CLI) | payer MEDICARE, OTHER, SELFPAY ==
--- OUTSIDE RECORDS SUMMARY | 2019-07-05 14:42 | XMS_ITS | Encounter Summary ---
[facility] Address [address] [place] [address] Care Team Providers Care Multicultural Manager Name Role Phone Ferny Gentile MD Primary Care Provider [phone] Encounter Details Date Type Department Care Team (Late st Contact Info) Description 07/05/2019 1:42 PM EST Hospital Encounter [facility] PULMONARY & CRITICAL CARE MEDICINE [address] [place] [address] Social History Tobacco Use Types [...] Care Team (Late st Contact Info) Description 02/21/2025 10:45 AM EDT Office Visit [facility] CARDIOLOGY [address] [facility] [address] [place] [address] Yon Govea MD [address]20 [facility] [address] [place] [address] 02/28/2025 11:00 AM EDT Appointment [facility] [address] [place] [address] 06/30/2025 11:30 AM EST Office Visit [facility] RHEUMATOLOGY [address] [address] David Bernstein MD 330 [facility] [address] [place] [address] 06/14/2026 1:30 PM EST Office Visit [facility] CARDIOLOGY [address] [facility] [place] [address] Wojciech Flores MD [address] [place] [address] Pending Results Name Type Priority Associated Diagnoses [...] documented as of this encounter Care Teams Multicultural Manager Relationship Specialty Start Date End Date Ferny Gentile MD [address] [facility] [address] [place] [address] PCP - General 06/11/15 documented as of this encounter
--- OUTSIDE RECORDS SUMMARY | 2025-01-12 11:30 | XMS_ITS | Encounter Summary ---
[facility] Organization [facility] Address [address] [place] [address] Care Team Providers Care Straight Truck Driver Name Role Phone Ferny Gentile MD Primary Care Provider [phone] Reason for Visit * Reason Comments HFrEF Encounter Details Date Type Department Care Team (Late st Contact Info) Description 01/12/2025 11:30 AM EDT Office Visit [facility] CARDIOLOGY [address] [place] [address] [place] [address] Wojciech Flores MD [address] [facility] [place] [address] Chronic systolic congestive heart failure (Primary Dx); SSS (sick sinus syndrome); Paroxysmal 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; Mixed hyperlipidemia Social History Tobacco Use Types Packs/Day Years [...] Sign Reading Time Taken Comments Blood Pressure 110/60 01/12/2025 11:32 AM EDT Pulse 72 01/12/2025 11:32 AM EDT Temperature - - Respiratory Rate - - Oxygen Saturation 98% 01/12/2025 11:32 AM EDT Inhaled Oxygen Concentration - - Weight 81.2 kg (179 lb) 01/12/2025 11:32 AM EDT Height 162.6 cm (5' 4.02 ) 01/12/2025 11:32 AM E DT Body Mass Index 30.71 01/12/2025 11:32 AM EDT documented in this encounter Progress Notes * Wojciech Flores MD - 01/12/2025 11:30 AM EDT [facility] Cardiology Office Progress Note Luz Skaggs 1940 [address] [place] [address] Visit Date: 01/12/25 PCP: Ferny Gentile MD [address] [place] [address] IDENTIFICATION: A 84 y.o. female PROBLEM LIST: Multifocal PVCs 01/16 holter 10K (9%) pvc 01/16 echo EF 55% mild-mod MR 05/19 flecainide started 10/30/16 MPS: Lexiscan Cardiolite WNL, EF 41%, EF difference from echo may be due to frequent PVCs, short run of A. fib 12/16/16 ablation along the mid to distal inferior wall the LV, total of 3 different PVCs morphologies and was continued on flecainide and beta vonda. 05/11/17 Zio patch: Average HR 70, range 53-190, 5 patient triggered events correspond with PVCs/SR, 12.4% PVCs 10/21 zio <1% pvc Sinus node dysfxn 12/21 SJM ppm - [place] 09/24 switched to AAI to limit ventricular pacing(Dr Govea) Chronic HFrEF TTE 06/07/22: EF 41-45%, mild-mod AR, mod MAC with mild MR, eRVSP 35-45 mmHg, moderate pericardial effusion with no evidence of tamponade ARIELLA 06/11/22: no evidence of ANASTASIYA thrombus present 10/26 echo EF>55% IR AV scler mild AI rvsp 40 CP 2019 Lexiscan fixed apical no rev EF 62% PVCs/LBBB 06/26 CT chest no CAC PAF Warfarin 09/16 ECV 06/11/22, temporarily successful 08/24 flec to Tikosyn History of DVT 06/26 Duplex glenn LE negative for DVT/SVT OSIRIS / dyspnea- Gilbert on cpap CTA chest 03/18 minimal scarring 6 min walk 2015 wnl 07/21 committed to O2 Breast ca L rsxn 92-implant in place sxhx 1. Lumbar fusion 2017 [place] 2. TKR 05/26 CC: Chief Complaint Patient presents with HFrEF Allergies Allergies Allergen Reactions Oxycodone-Acetaminophen Headache Pravastatin Myalgia MUSCLE WEAKNESS Sulfamethoxazole-Trimethoprim Rash Current Medications Current Outpatient Medications: acetaminophen (TYLENOL) 500 MG tablet, Take 1 tablet by mouth Every 8 (Eight) Hours As Needed., Disp: , Rfl: alendronate (FOSAMAX) 70 MG tablet, Take 1 tablet by mouth 1 (One) Time Per Week., Disp: , Rfl: cetirizine (zyrTEC) 10 MG tablet, Take 1 tablet by mouth Daily., Disp: 30 tablet, Rfl: 1 Cholecalciferol (VITAMIN D-3 PO), Take 1 tablet by mouth Daily., Disp: , Rfl: coenzyme Q10 100 MG capsule, Take 2 capsules by mouth Daily., Disp: , Rfl: colestipol (COLESTID) 1 g tablet, Take 1 tablet by mouth Daily., Disp: , Rfl: dofetilide (TIKOSYN) 125 MCG capsule, Take 1 capsule by mouth Every 12 (Twelve) Hours., Disp: 180 capsule, Rfl: 3 estradiol (ESTRACE) 0.1 MG/GM vaginal cream, As Needed., Disp: , Rfl: ezetimibe (ZETIA) 10 MG tablet, Take 1 tablet by mouth Daily., Disp: , Rfl: folic acid (FOLVITE) 1 MG tablet, Take 1 tablet by mouth Daily., Disp: 90 tablet, Rfl: 3 furosemide (LASIX) 20 MG tablet, Take 2 tablets by mouth 3 (Three) Times a Week. And an additional one tablet as needed for weight gain >2 lbs in 24 hours, Disp: 90 tablet, Rfl: 3 guaiFENesin (MUCINEX) 600 MG 12 hr tablet, Take 2 tablets by mouth As Needed for Cough., Disp: , Rfl: Inclisiran Sodium 284 MG/1.5ML solution prefilled syringe, Inject 1.5 mL under the skin into the appropriate area as directed Every 6 (Six) Months., Disp: , Rfl: ipratropium (ATROVENT) 0.06 % nasal spray, Administer 2 sprays into the nostril(s) as directed by provider 2 (Two) Times a Day As Needed., Disp: , Rfl: lactobacillus acidophilus (RISAQUAD) capsule capsule, Take 1 capsule by mouth Daily., Disp: 1 capsule, Rfl: 1 methotrexate 2.5 MG tablet, Take 6 tablets by mouth 1 (One) Time Per Week., Disp: 72 tablet, Rfl: 0 methylPREDNISolone (MEDROL) 4 MG dose pack, take by mouth as directed on inside of package, Disp: ,Rfl: metoprolol succinate XL (Toprol XL) 50 MG 24 hr tablet, Take 1 tablet by mouth Daily., Disp: 90 tablet, Rfl: 1 Myrbetriq 50 MG tablet sustained-release 24 hour 24 hr tablet, Take 25 mg by mouth Daily., Disp: , Rfl: ofloxacin (OCUFLOX) 0.3 % ophthalmic solution, , Disp: , Rfl: pantoprazole (PROTONIX) 40 MG EC tablet, Take 1 tablet by mouth Daily., Disp: 60 tablet, Rfl: 2 Peppermint Oil (IBGARD PO), Take 20 drops by mouth Daily., Disp: , Rfl: warfarin (COUMADIN) 5 MG tablet, TAKE 1 TO 1 & 1/2 (ONE TO ONE & ONE-HALF) TABLETS BY MOUTHONCE DAILY OR DIRECTED BY THE ANTICOAGULATION CLINIC, Disp: 135 tablet, Rfl: 0 History of Present Illness Luz Skaggs is a 84 y.o. year old female here for fu . No new cardiac symptoms. She was able to travel to [place] and visit several venues. She statesthat her palpitations have largely gone away. She notes some good days and bad days regarding fatigue OBJECTIVE: Vitals: 01/12/25 1132 BP: 110/60 BP Location: Right arm Patient Position: Sitting Cuff Size: Adult Pulse: 72 SpO2: 98% Weight: 81.2 kg (179 lb) Height: 162.6 cm (64.02 ) Body mass index is 30.71 kg/m??. Constitutional: Appearance: Healthy appearance. Not in distress. Neck: Vascular: No JVR. JVD normal. Pulmonary: Effort: Increased respiratory effort. Breath sounds: Normal breath sounds. No wheezing. No rhonchi. No rales. Chest: Chest wall: Not tender to palpatation. Cardiovascular: PMI at left midclavicular line. Normal rate. Regular rhythm. Normal S1. Normal S2. Murmurs: There is a systolic murmur. No gallop. No click. No rub. Pulses: Intact distal pulses. Edema: Peripheral edema absent. Abdominal: General: Bowel sounds are normal. Palpations: Abdomen is soft. Tenderness: There is no abdominal tenderness. Musculoskeletal: Normal range of motion. General: No tenderness. Skin: General: Skin is warm and dry. Neurological: General: No focal deficit present. Mental Status: Alert and oriented to person, place and time. Diagnostic Data: Procedures Advance Care Planning ASSESSMENT: Diagnosis Plan 1. Chronic systolic congestive heart failure 2. SSS (sick sinus syndrome) 3. Paroxysmal 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 4. Mixed hyperlipidemia PLAN: CHF chronic nonischemic with exercise intolerance. Sick sinus syndrome status post PPM Paroxysmal 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-tikosyn improved A-fib burden we will continue to follow. Precautions regarding concomitant antibiotic use Hypertension- BP controlled with in-office BP 120/76 intolerant to Entresto with hypotension Mixed dyslipidemia controlled on inclisiran Wojciech Flores MD, FACC documented in this encounter Plan of Treatment Upcoming Encounters Date Type Department Care Team (Late st Contact Info) Description 02/21/2025 10:45 AM EDT Office Visit [facility] CARDIOLOGY [address] [facility] [address] [place] [phone] Yon Govea MD [address] [facility] [address] [place], [place] [id number] 02/28/2025 11:00 AM EDT Appointment [facility] [address] [place] [address] 06/30/2025 11:30 AM EST Office Visit [facility] RHEUMATOLOGY [address] [facility] 100 [place] [address] David Bernstein MD 330 [facility] 100 [place] [address] 06/14/2026 1:30 PM EST Office Visit [facility] [address] [facility] [place] [address] Wojciech Flores MD [address] [facility] [address] [place] [address] documented as of this encounter Visit Diagnoses Diagnosis Chronic systolic congestive heart failure- Primary SSS (sick sinus syndrome) Sinoatrial node dysfunction Paroxysmal 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 Atrial fibrillation Mixed hyperlipidemia documented in this encounter Care Teams Straight Truck Driver Relationship Specialty Start Date End Date Ferny Gentile MD [address] [place] [facility] [address] [place] [address] PCP - General 06/11/15 documented as of this encounter
--- OUTSIDE RECORDS SUMMARY | 2025-02-01 15:43 | XMS_ITS | Encounter Summary ---
[facility] Address [address] [place] [address] Care Team Providers Care Mobile Development Manager Name Role Phone Ferny Gentile MD Primary Care Provider [phone] Encounter Details Date Type Department Care Team (Late st Contact Info) Description 01/20/2025 Anticoagulation Visit [facility] ANTICO[facility]ULATION CLINIC [address] [place] [address] Dayron Diallo, Track Vehicle Repairer Social History Tobacco Use Types Packs/Day Years [...] this encounter Progress Notes * Dayron Diallo, Track Vehicle Repairer - 01/20/2025 12:08 PM EDT Anticoagulation Clinic - Remote Progress [...] 11/08 Inc GLV Date 12/16 12/23 12/30 01/06 01/13 01/20 Total Weekly Dose 52.5 mg 52.5 mg 52.5 mg 52.5 mg 52.5 mg 47.5 mg INR 2.8 2.0 2.2 2.4 3.7 2.3 Notes Medrol Phone Interview: Verbal Release Authorization signed on 06/29/2019 -- may speak with Litzy Naranjo (daughter) Tablet Strength: 5mg tablets Patient Contact Info: [phone]; Litzy Naranjo (daughter) Patient Findings Positives: Change in medications, Change in diet/appetite, Bruising Negatives: Signs/symptoms of thrombosis, Signs/symptoms of bleeding, Laboratory test error suspected, Change in health, Change in alcohol use, Change in activity, Upcoming invasive procedure, Emergency department visit, Upcoming dental procedure, Missed doses, Extra doses, Hospital admission, Othercomplaints Comments: Increased GLV intake- veronica salad and green beans to help bring INR down. Patient mentions small bruises from bumping into things. Patient completed Medrol dose Thursday. All other findings negative per patient. Plan: INR is therapeutic at 2.3 (goal 2 to 3). Instructed patient to continue warfarin 7.5 mg daily untilrecheck. Recheck INR in 1 week, 01/27/25 Patient prefers testing Thursday. Verbal information provided over the phone. Luz Skaggs RBV dosing instructions, expresses understanding by teach back, and has no further questions at this time. Dayron Diallo [facility] 01/20/2025 12:15 EDT IClaudia, PharmD, have reviewed the note in full and agree with the assessment and plan. 01/20/25 13:16 EDT documented in this encounter Plan of Treatment Upcoming Encounters Date Type Department Care Team (Late st Contact Info) Description 02/21/2025 10:45 AM EDT Office Visit [facility] [address] [facility] [address] [place] [phone] Yon Govea MD [address] [facility] [address] [place], [place] [id number] 02/28/2025 11:00 AM EDT Appointment [facility] [address] [place] [address] 06/30/2025 11:30 AM EST Office Visit [facility] RHEUMATOLOGY [address] [facility] 100 [place] [phone] David Bernstein MD 330 [facility] 100 [place], [place] [id number] 06/14/2026 1:30 PM EST Office Visit [facility] CARDIOLOGY [address] [place] [address] Wojciech Flores MD [address] [facility] [address] [place], [place] [id number] documented as of this encounter Procedures Procedure Name Priority Date/Time Associated Diagnosis Comments PROTIME-INR Routine 01/20/2025 documented in this encounter Results * Protime-INR (01/20/2025) INR 2.30 Blood 01/20/2025 us Historical Provider LAB BLOOD ORDERABLES Agata l Result documented in this encounter Visit Diagnoses Not on filedocumented in this encounter Care Teams Mobile Development Manager Relationship Specialty Start Date End Date Ferny Gentile MD [address] [place] [address] [place] [address] PCP - General 06/11/15 documented as of this encounter
--- OUTSIDE RECORDS SUMMARY | 2025-02-01 15:43 | XMS_ITS | Encounter Summary ---
[facility] [address] [place] [address] Care Team Providers Care Account Manager Employee Benefits Name Role Phone Ferny Gentile MD Primary Care Provider [phone] Encounter Details Date Type Department Care Team (Late st Contact Info) Description 12/23/2024 Anticoagulation Visit [facility] ANTICOAGULATION CLINIC [address] [place] [address] Dayron Diallo, Manager Union Social History Tobacco Use Types Packs/Day Years [...] this encounter Progress Notes * Dayron Diallo, Manager Union - 12/23/2024 1:24 PM EDT Anticoagulation Clinic [...] Tablet Strength: 5mg tablets Patient Contact Info: [phone]; Litzy Naranjo (daughter) Patient Findings Positives: Change [...] further questions at this time. Dayron Diallo AIRCRAFT AVIONICS TECHNICIAN 12/23/2024 13:33 EDT I, Claudia Bauer, MadisonD, have reviewed the note in full and agree with the assessment and plan. 12/23/24 14:16 EDT documented in this encounter Plan of Treatment Upcoming Encounters Date Type Department Care Team ([facility] st Contact Info) Description 02/21/2025 10:45 AM EDT Office Visit [facility] CARDIOLOGY [address] [facility] [address] [place] [address] Yon Govea MD [address] [facility] [address] [place], [place] [id number] 02/28/2025 11:00 AM EDT Appointment [facility] [address] [place] [address] 06/30/2025 11:30 AM EST Office Visit [facility] RHEUMATOLOGY [address] [facility] [address] [place] [address] David Bernstein MD [address] [facility] [address] [place], [place] [id number] 06/14/2026 1:30 PM EST Office Visit [facility] CARDIOLOGY [address] [place] [place] [address] Wojciech Flores MD [address] [facility] [address] [address] [place] [address] documented as of this encounter Procedures Procedure Name Priority Date/Time Associated Diagnosis Comments PROTIME-INR Routine 12/23/2024 documented in this encounter Results * Protime-INR (12/23/2024) INR 2.00 Blood 12/23/2024 us Historical Provider LAB BLOOD ORDERABLES Agata l Result documented in this encounter Visit Diagnoses Not on filedocumented in this encounter Care Teams Account Manager Employee Benefits Relationship Specialty Start Date End Date Ferny Gentile MD [address] [facility] [address] [place] [address] PCP - General 06/11/15 documented as of this encounter
--- OUTSIDE RECORDS SUMMARY | 2025-02-01 15:43 | XMS_ITS | Encounter Summary ---
[facility] [address] [place] [address] Care Team Providers Care Tissue Recovery Technician Name Role Phone Ferny Gentile MD Primary Care Provider Encounter Details Date Type Department Care Team (Late st Contact Info) Description 02/04/2022 Anticoagulation Visit [facility] ANTICO[facility]ULATION CLINIC [address] [facility] [address] [place] [address] Hernan Mckenna, PharmD [address] [place] [address] Paroxysmal 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 (Primary Dx) Social History [...] Description 02/21/2025 10:45 AM EDT Office [facility] [address] [facility] [facility] [address] [place] [phone] Yon Govea MD [address] [facility] [address] [place], [place] [id number] 02/28/2025 11:00 AM EDT Appointment [facility] [address] [place] [address] 06/30/2025 11:30 AM EST Office Visit [facility] RHEUM[facility]OLOGY [address] [place] [address] David Bernstein MD [address] [place], [place] [phone] 06/14/2026 1:30 PM EST Office Visit [facility] CARDIOLOGY [address] [place] [address] [place] [address] Wojciech Flores MD [address] [place] [address] documented as of this encounter Procedures Procedure Name Priority Date/Time Associated Diagnosis Comments PROTIME-INR Routine 02/04/2022 documented in this encounter Results * Protime-INR (02/04/2022) INR 1.90 Blood us Historical Provider LAB BLOOD ORDERABLES Agata l Result documented in this encounter Visit Diagnoses Diagnosis Paroxysmal 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- Primary Atrial fibrillation documented in this encounter Care Teams Tissue Recovery Technician Relationship Specialty Start Date End Date Ferny Gentile MD [address] [facility] [address] [place] [address] PCP - General 06/11/15 documented as of this encounter
--- OUTSIDE RECORDS SUMMARY | 2025-02-01 15:43 | XMS_ITS | Encounter Summary ---
[facility] [address] [place] [address] Care Team Providers Care Bucket Wash Operator Name Role Phone Ferny Gentile MD Primary Care Provider [phone] Encounter Details Date Type Department Care Team (Late st Contact Info) Description 01/13/2025 Anticoagulation Visit [facility] ANTICO[facility]ULATION CLINIC [address] [facility] [address] [place] [address] Claudia Bauer, PharmD [address] [place] [address] Social History Tobacco Use Types [...] Progress Notes * Claudia Bauer, PharmD - 01/13/2025 1:12 PM EDT Anticoagulation Clinic - Remote Progress [...] GLV Date 12/16 12/23 12/30 01/06 01/13 Total Weekly Dose 52.5 mg 52.5 mg 52.5 mg 52.5 mg 52.5 mg INR 2.8 2.0 2.2 2.4 3.7 Notes Medrol Phone Interview: Verbal Release Authorization signed on 06/29/2019 -- may speak with Litzy Naranjo (daughter) Tablet Strength: 5mg tablets Patient Contact Info: [phone]; Litzy Naranjo (daughter) Patient Findings: Positives: Change in medications Negatives: Signs/symptoms of thrombosis, Signs/symptoms of bleeding, Laboratory test error suspected, Change in health, Change in alcohol use, Change in activity, Upcoming invasive procedure, Emergency department visit, Upcoming dental procedure, Missed doses, Extra doses, Change in diet/appetite, Hospital admission, Bruising, Other complaints Comments: Patient started a Medrol Dose Kofi on Thursday and forgot to call and let us know. All other findings negative per patient Plan: INR is supra therapeutic at 3.7 (goal 2 to 3). Instructed patient to decrease today's dose to warfarin 2.5 mg and continue warfarin 7.5 mg daily until recheck. Recheck INR in 1 week, 01/20/25 Patient prefers testing Thursday. Verbal information provided over the phone. Luz Skaggs RBV dosing instructions, expresses understanding by teach back, and has no further questions at this time. Claudia Bauer, PharmKelli 01/13/2025 13:20 EDT documented in this encounter Plan of Treatment Upcoming Encounters Date Type Department Care Team (Late st Contact Info) Description 02/21/2025 10:45 AM EDT Office Visit [facility] [address] [facility] [place] [address] Yon Govea MD [address] [facility] [address] [place] [address] 02/28/2025 11:00 AM EDT Appointment [facility] [address] [place] [address] 06/30/2025 11:30 AM EST Office Visit [facility] RHEUMATOLOGY [address] [facility] [address] [place] [address] David Bernstein MD 330 [facility] [address] [place] [address] 06/14/2026 1:30 PM EST Office Visit [facility] CARDIOLOGY [address] [place] [address] [place] [address] Wojciech Flores MD [address] [facility] [address] [place], [place] [id number] documented as of this encounter Procedures Procedure Name Priority Date/Time Associated Diagnosis Comments PROTIME-INR Routine 01/13/2025 documented in this encounter Results * Protime-INR (01/13/2025) INR 3.70 Blood us Historical Provider LAB BLOOD ORDERABLES Agata l Result documented in this encounter Visit Diagnoses Not on filedocumented in this encounter Care Teams Bucket Wash Operator Relationship Specialty Start Date End Date Ferny Gentile MD [address] [facility] [address] [place] [address] PCP - General 06/11/15 documented as of this encounter
--- OUTSIDE RECORDS SUMMARY | 2025-02-01 15:43 | XMS_ITS | Encounter Summary ---
[facility] Address [address] [place] [address] Care Team Providers Care Florist Supplies Salesperson Name Role Phone Ferny Gentile MD Primary Care Provider [phone] Encounter Details Date Type Department Care Team (Late st Contact Info) Description 01/06/2025 Anticoagulation Visit [facility] [address] [place] [address] Dayron Diallo, Clinical Dietician Social History Tobacco Use Types Packs/Day Years [...] this encounter Progress Notes * Dayron Diallo, Clinical Dietician - 01/06/2025 11:08 AM EDT Anticoagulation Clinic - Remote Progress [...] Inc GLV Date 12/16 12/23 12/30 01/06 Total Weekly Dose 52.5 mg 52.5 mg 52.5 mg 52.5 mg INR 2.8 2.0 2.2 2.4 Notes Phone Interview: Verbal Release Authorization signed on 06/29/2019 -- may speak with Litzy Naranjo (daughter) Tablet Strength: 5mg tablets Patient Contact Info: [phone]; Litzy Naranjo (daughter) Patient Findings: Positives: Change in medications, Change in diet/appetite, Other complaints Negatives: Signs/symptoms of thrombosis, Signs/symptoms of bleeding, Laboratory test error suspected, Change in health, Change in alcohol use, Change in activity, Upcoming invasive procedure, Emergency department visit, Upcoming dental procedure, Missed doses, Extra doses, Hospital admission, Bruising Comments: Patient mentions redness on her left foot/unable to stand on it Wed 01/04. Patient went to a doctor and received steroid shot and x rays yesterday. Suspected issue with her foot is gout. Patient stopped taking Mucinex DM after previous encounter. Patient mentions decrease in appetite due toallergies the past three weeks. Slight decrease in GLV this past week in order to maintain INR within range. Tylenol prn for foot pain. Patient using walker for assistance. All other findings negative per patient. Plan: INR was therapeutic at 2.4 (goal 2 to 3). Instructed patient to continue warfarin 7.5 mg daily until recheck. Recheck INR in 1 week, 01/13/25 Patient prefers testing Thursday. Verbal information provided over the phone. Luz Skaggs RBV dosing instructions, expresses understanding by teach back, and has no further questions at this time. Dayron Diallo SPONGE CLIPPER 01/06/2025 11:23 EDT I, Briseida Saldana, PharmD, have reviewed the note in full and agree with the assessment and plan. 01/06/25 11:31 EDT documented in this encounter Plan of Treatment Upcoming Encounters Date Type Department Care Team (Late st Contact Info) Description 02/21/2025 10:45 AM EDT Office Visit [facility] C[facility] [address] [facility] [address] [place] [address] Yon Govea MD 1720 [facility] [address] [place], [place] [id number] 02/28/2025 11:00 AM EDT Appointment [facility] [address] [place] [address] 06/30/2025 11:30 AM EST Office Visit [facility] RHEUMATOLOGY [address] [address] [address] [place] [address] David Bernstein MD 330 [facility] 100 [place] [address] 06/14/2026 1:30 PM EST Office Visit [facility] CARDI[facility] [address] [facility] [place] [address] Wojciech Flores MD 1720 [facility] [address] [place] [address] documented as of this encounter Procedures Procedure Name Priority Date/Time Associated Diagnosis Comments PROTIME-INR Routine 01/06/2025 documented in this encounter Results * Protime-INR (01/06/2025) INR 2.40 Blood 01/06/2025 us Historical Provider LAB BLOOD ORDERABLES Agata l Result documented in this encounter Visit Diagnoses Not on filedocumented in this encounter Care Teams Florist Supplies Salesperson Relationship Specialty Start Date End Date Ferny Gentile MD 1210 [place] [facility] [address] E [facility] [address] [place] [address] PCP - General 06/11/15 documented as of this encounter
--- OUTSIDE RECORDS SUMMARY | 2025-02-01 15:43 | XMS_ITS | Encounter Summary ---
[facility] Address [address] [place] [address] Care Team Providers Care Liquefier Name Role Phone Ferny Gentile MD Primary Care Provider [phone] Reason for Visit * Reason Onset Date Comments Appointment 01/11/2025 Encounter Details Date Type Department Care Team (Late st Contact Info) Description 01/11/[address] [facility] RHEUM[facility]OLOGY 330 [facility] 100 [place] [address] Yue Pandey, YURI [address] [address] Appointment Social History Tobacco Use Types Packs/Day Years [...] encounter Miscellaneous Notes * Telephone Encounter - Trenton Peres RegSched Rep - 01/11/2025 2:54 PM EDT TRIED CALLING PT, DIRECTLY TO , VM NOT SET UP. PROVIDER OUT OF OFFICE ON 02/28, PT HAS APPT SCHEDULED WITH ADB IN JUN. SENDING NOTIFICATION THRU [facility]. HUB OK TO RELAY -ZC documented in this encounter Plan of Treatment Upcoming Encounters Date Type Department Care Team (Late st Contact Info) Description 02/21/2025 10:45 AM EDT Office Visit [facility] [address] [facility] [address] [place] [phone] Yon Govea MD 1720 [facility] [address] [place] [address] 02/28/2025 11:00 AM EDT Appointment [facility] [address] [place] [address] 06/30/2025 11:30 AM EST Office Visit [facility] RHEUMATOLOGY 330 [facility] 100 [place] [address] David Bernstein MD 330 [facility] 100 [place], [place] [address] 06/14/2026 1:30 PM EST Office Visit [facility] CARDIOLOGY [address] [place] [address] Wojciech Flores MD [address] [place] [address] documented as of this encounter Visit Diagnoses Not on filedocumented in this encounter Care Teams Liquefier Relationship Specialty Start Date End Date Ferny Gentile MD [address] [place] [facility] [address] [place] [address] PCP - General 06/11/15 documented as of this encounter
--- OUTSIDE RECORDS SUMMARY | 2025-02-01 15:43 | XMS_ITS | Encounter Summary ---
Author Organization [facility] Address [address] [place] [address] Care Team Providers Care Calender Operator Name Role Phone Ferny Gentile MD Primary Care Provider [phone] Encounter Details Date Type Department Care Team (Latest Contact Info) Description 11/06/2021 Anticoagulation Visit [facility] 17[address] [facility] 606 [place] [address] Juan Ramon King, Senior Manager Paroxysmal 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 (Primary Dx) Social History [...] Description 02/21/2025 10:45 AM EDT Office Visit [facility] [address] [facility] [address] [place] [address] Yon Govea MD 1720 [facility] 400 [place] [address] 02/28/2025 11:00 AM EDT Appointment [facility] 206 [place] [address] 06/30/2025 11:30 AM EST Office Visit [facility] RHEUMATOLOGY [address] [facility] 100 [place] [address] David Bernstein MD 330 [facility] 100 [place], [place] [address] 06/14/2026 1:30 PM EST Office Visit [facility] CARDIOLOGY [address] [place] [address] [place] [address] Wojciech Flores MD [address] [facility] [address] [place] [address] documented as of this encounter Visit Diagnoses Diagnosis Paroxysmal 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- Primary Atrial fibrillation documented in this encounter Care Teams Calender Operator Relationship Specialty Start Date End Date Ferny Gentile MD 1210 [facility] [address] [place] [address] PCP - General 06/11/15 documented as of this encounter
--- OUTSIDE RECORDS SUMMARY | 2025-02-01 15:43 | XMS_ITS | Encounter Summary ---
Author Organization [facility] Address [address] [place] [address] Care Team Providers Care Case Maker Name Role Phone Ferny Gentile MD Primary Care Provider [phone] Reason for Visit * Reason Onset Date Comments Med Refill 12/12/2024 Encounter Details Date Type Department Care Team (Late st Contact Info) Description 12/12/2024 Refill [facility] CARDIOLOG[facility] [address] [phone] Yon Govea MD 1720 [place] [address] Med Refill Social History Tobacco Use Types [...] Description 02/21/2025 10:45 AM EDT Office Visit [facility] C[facility] 3000 [facility] [address] [place] [address] Yon Govea MD 1720 [facility] 400 [place] [address] 02/28/2025 11:00 AM EDT Appointment [facility] [address] [place] [address] 06/30/2025 11:30 AM EST Office Visit [facility] RHEUM[facility]OLOGY 330 [facility] 100 [place] [address] David Bernstein MD 330 [facility] 100 [place] [address] 06/14/2026 1:30 PM EST Office Visit [facility] CARD[facility] [address] [place] [address] Wojciech Flores MD 1720 [facility] [address] [place] [address] documented as of this encounter Visit Diagnoses Not on filedocumented in this encounter Care Teams Case Maker Relationship Specialty Start Date End Date Ferny Gentile MD 1210 [place] [facility] [address] [place] [address] PCP - General 06/11/15 documented as of this encounter
--- OUTSIDE RECORDS SUMMARY | 2025-02-01 15:43 | XMS_ITS | Encounter Summary ---
[facility] Address [address] [place] [address] Care Team Providers Care Bakery Manager Name Role Phone Ferny Gentile MD Primary Care Provider [phone] Encounter Details Date Type Department Care Team (Late st Contact Info) Description 01/27/2025 Anticoagulation Visit [facility] [address] [place] [address] [place] [address] Natasha Ruano[facility] [address] [place] [address] Social History Tobacco Use Types Packs/Day Years [...] as of this encounter Progress Notes * Natasha Ruano, [facility] - 01/27/2025 2:02 PM EDT Anticoagulation Clinic - Remote Progress [...] Date 12/16 12/23 12/30 01/06 01/13 01/20 01/27 Total Weekly Dose 52.5 mg 52.5 mg 52.5 mg 52.5 mg 52.5 mg 47.5 mg 52.5 mg INR 2.8 2.0 2.2 2.4 3.7 2.3 3.4 Notes Medrol APAP Phone Interview: Verbal Release Authorization signed on 06/29/2019 -- may speak with Litzy Naranjo (daughter) Tablet Strength: 5mg tablets Patient Contact Info: [phone]; Litzy Naranjo (daughter) Patient Findings Positives: Change in medications, Change in diet/appetite Negatives: Signs/symptoms of thrombosis, Signs/symptoms of bleeding, Laboratory test error suspected, Change in health, Change in alcohol use, Change in activity, Upcoming invasive procedure, Emergency department visit, Upcoming dental procedure, Missed doses, Extra doses, Hospital admission, Bruising, Other complaints Comments: Patient actually thinks she had more GLV this past week. Patient got her Flu shot on Thursday. She reports she has taken APAP BID most days this week for stiffness . This is more than she usually takes. Patients states she may still need to take a few doses PRN. Plan: INR is supratherapeutic today at 3.4 (goal 2 to 3). Instructed patient to take reduced dose of warfarin 5 mg today, then continue warfarin 7.5 mg daily until recheck. Recheck INR in 1 week, 02/03/25. Patient prefers testing Thursday. Verbal information provided over the phone. Luz Skaggs RBV dosing instructions, expresses understanding by teach back, and has no further questions at this time. Natasha Ruano, Garret 01/27/25 14:03 EDT documented in this encounter Plan of Treatment Upcoming Encounters Date Type Department Care Team (Late st Contact Info) Description 02/21/2025 10:45 AM EDT Office Visit [facility] CARDIOLOG[facility] 3000 [facility] [address] [place] [address] Yon Govea MD 1720 [facility] [address] [place], [place] [id number] 02/28/2025 11:00 AM EDT Appointment [facility] [address] [place] [address] 06/30/2025 11:30 AM EST Office Visit [facility] RHEUM[facility] [address] [place] [address] David Bernstein MD [address] [facility] 100 [place] [address] 06/14/2026 1:30 PM EST Office Visit [facility] CARDI[facility] [address] [facility] [address] Wojciech Flores MD 1720 [facility] [address] [place], [place] [address] documented as of this encounter Procedures Procedure Name Priority Date/Time Associated Diagnosis Comments PROTIME-INR Routine 01/27/2025 documented in this encounter Results * Protime-INR (01/27/2025) INR 3.40 Blood us Historical Provider LAB BLOOD ORDERABLES Agata l Result documented in this encounter Visit Diagnoses Not on filedocumented in this encounter Care Teams Bakery Manager Relationship Specialty Start Date End Date Ferny Gentile MD 1210 [place] [facility] 36 E [facility] [address] [place] [address] PCP - General 06/11/15 documented as of this encounter
--- OUTSIDE RECORDS SUMMARY | 2025-02-01 15:43 | XMS_ITS | Encounter Summary ---
[facility] Address [address] [place] [address] Care Team Providers Care Human Development Professor Name Role Phone Ferny Gentile MD Primary Care Provider [phone] Encounter Details Date Type Department Care Team (Late st Contact Info) Description 12/16/2024 Anticoagulation Visit [facility] 1720 [facility] [address] [place] [address] Claudia Bauer, PharmD 1740 [place] [address] Social History Tobacco Use Types [...] Fall Cefdinir Date 10/10 10/16 10/21 10/29 711/11 Total Weekly Dose 52.5 mg 52.5 mg [...] Tablet Strength: 5mg tablets Patient Contact Info: [phone]; Litzy Naranjo (daughter) Patient Findings Negatives: Signs/symptoms [...] Description 02/21/2025 10:45 AM EDT Office Visit [facility] CARDIOLOGY [address] [facility] [address] [place] [address] Yon Govea MD 1720 [facility] [address] [place], [place] [address] 02/28/2025 11:00 AM EDT Appointment [facility] [address] [place] [address] 06/30/2025 11:30 AM EST Office Visit [facility] RHEUMATOLOGY [address] [place] [address] David Bernstein MD 330 [facility] [address] [place], [place] [address] 06/14/2026 1:30 PM EST Office Visit [facility] CARDIOLOGY [address] [place] [address] [address] Wojciech Flores MD 1720 [facility] [address] [place], [place] [address] documented as of this encounter Procedures Procedure Name Priority Date/Time Associated Diagnosis Comments PROTIME-INR Routine 12/16/2024 documented in this encounter Results * Protime-INR (12/16/2024) INR 2.80 Blood us Historical Provider LAB BLOOD ORDERABLES Agata l Result documented in this encounter Visit Diagnoses Not on filedocumented in this encounter Care Teams Human Development Professor Relationship Specialty Start Date End Date Ferny Gentile MD 1210 [place] [facility] [address] [place] [address] PCP - General 06/11/15 documented as of this encounter
--- OUTSIDE RECORDS SUMMARY | 2025-02-01 15:43 | XMS_ITS | Encounter Summary ---
Author Organization [facility] Address [address] [place] [address] Care Team Providers Care Head Cook Name Role Phone Ferny Gentile MD Primary Care Provider Encounter Details Date Type Department Care Team (Latest Contact Info) Description 01/12/2025 Travel Social History Tobacco Use Types Packs/Day Years [...] Description 02/21/2025 10:45 AM EDT Office Visit [facility] C[facility] 3000 [facility] [address] [place] [address] Yon Govea MD 1726 [facility] 400 [place] [address] 02/28/2025 11:00 AM EDT Appointment [facility] 206 [place] [address] 06/30/2025 11:30 AM EST Office Visit [facility] RHE[facility] 330 [facility] 100 [place] [address] David Bernstein MD 330 [facility] 100 [place] [address] 06/14/2026 1:30 PM EST Office Visit [facility] CARD[facility] 210 [facility] [place] [address] Wojciech Flores MD [address] [place] [address] documented as of this encounter Visit Diagnoses Not on filedocumented in this encounter Care Teams Head Cook Relationship Specialty Start Date End Date Ferny Gentile MD 1210 [facility] 36 E [facility] [place] [address] PCP - General 06/11/15 documented as of this encounter
--- OUTSIDE RECORDS SUMMARY | 2025-02-01 15:43 | XMS_ITS | Encounter Summary ---
Author Organization [facility] Address [address] [place] [address] Care Team Providers Care Neon Sign Mechanic Name Role Phone Ferny Gentile MD Primary Care Provider [phone] Encounter Details Date Type Department Care Team (Late st Contact Info) Description 12/30/2024 Anticoagulation Visit [facility] [address] [place] [address] Dayron Diallo, Studio Coordinator Social History Tobacco Use Types Packs/Day Years [...] this encounter Progress Notes * Dayron Diallo, Studio Coordinator - 12/30/2024 1:13 PM EDT Anticoagulation Clinic [...] Tablet Strength: 5mg tablets Patient Contact Info: [phone]; Litzy Naranjo (daughter) Patient Findings Positives: Change [...] further questions at this time. Dayron Diallo OVERHEAD FOREMAN 12/30/2024 14:03 EDT I, Claudia Bauer, MadisonD, have reviewed the note in full and agree with the assessment and plan. 12/30/24 14:10 EDT documented in this encounter Plan of Treatment Upcoming Encounters Date Type Department Care Team (Late st Contact Info) Description 02/21/2025 10:45 AM EDT Office Visit [facility] [address] [facility] [address] [place] [address] Yon Govea MD 1720 [facility] [address] [place], [place] [address] 02/28/2025 11:00 AM EDT Appointment [facility] [address] [place] [address] 06/30/2025 11:30 AM EST Office Visit [facility] RHEUMATOLOGY [address] [place] [address] David Bernstein MD 330 [facility] [address] [place], [place] [address] 06/14/2026 1:30 PM EST Office Visit [facility] CARDIOLOG[facility] [address] [place] [address] Wojciech Flores MD 1720 [facility] [address] [place] [address] documented as of this encounter Procedures Procedure Name Priority Date/Time Associated Diagnosis Comments PROTIME-INR Routine 12/30/2024 documented in this encounter Results * Protime-INR (12/30/2024) INR 2.20 Blood 12/30/2024 us Historical Provider LAB BLOOD ORDERABLES Agata l Result documented in this encounter Visit Diagnoses Not on filedocumented in this encounter Care Teams Neon Sign Mechanic Relationship Specialty Start Date End Date Ferny Gentile MD [address] [place] [address] [place] [address] PCP - General 06/11/15 documented as of this encounter
--- OUTSIDE RECORDS SUMMARY | 2025-02-01 15:44 | XMS_ITS | Encounter Summary ---
[facility] Address [address] [place] [address] Care Team Providers Care Fish Hatchery Assistant Name Role Phone Ferny Gentile MD Primary Care Provider [phone] Encounter Details Date Type Department Care Team (Late st Contact Info) Description 09/15/2024 Results Follow-Up [facility] RHEUMATOLOGY [address] [address] David Bernstein MD 330 [facility] 100 [place] [address] Social History Tobacco Use Types [...] 02/21/2025 10:45 AM EDT Office Visit [facility] CARDI[facility] 3000 [facility] [address] [place] [address] Yon Govea MD [address] [address] 02/28/2025 11:00 AM EDT Appointment [facility] [address] [place] [address] 06/30/2025 11:30 AM EST Office Visit [facility] RHEUM[facility] [address] [address] David Bernstein MD 330 [facility] 100 [place] [address] 06/14/2026 1:30 PM EST Office Visit [facility] CARDI[facility] [address] [place] [address] Wojciech Flores MD 1720 [facility] [address] [place] [address] documented as of this encounter Visit Diagnoses Not on filedocumented in this encounter Care Teams Fish Hatchery Assistant Relationship Specialty Start Date End Date Ferny Gentile MD 1210 [facility] [address] [place] [address] PCP - General 06/11/15 documented as of this encounter
--- OUTSIDE RECORDS SUMMARY | 2025-02-01 15:44 | XMS_ITS | Encounter Summary ---
[facility] Address [address] [place] [address] Care Team Providers Care Communications Intern Name Role Phone Ferny Gentile MD Primary Care Provider [phone] Encounter Details Date Type Department Care Team (Latest Contact Info) Description 12/10/2020 Anticoagulation Visit [facility] 1720 [facility] 606 [place] [address] Leticia Vivar, Wind Energy Technician Paroxysmal 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 (Primary Dx) Social History [...] Description 02/21/2025 10:45 AM EDT Office Visit [facility] [address] [facility] [address] [place] [address] Yon Govea MD 1720 [facility] [address] [place] [address] 02/28/2025 11:00 AM EDT Appointment [facility] 206 [place] [address] 06/30/2025 11:30 AM EST Office Visit [facility] RHEUM[facility]OLOG[facility] [address] [place] [address] David Bernstein MD [address] [place], [place] [address] 06/14/2026 1:30 PM EST Office Visit [facility] CARDIOLOG[facility] [address] [place] [address] Wojciech Flores MD 1720 [facility] [address] [place] [address] documented as of this encounter Procedures Procedure Name Priority Date/Time Associated Diagnosis Comments PROTIME-INR Routine 12/14/2020 documented in this encounter Results * Protime-INR (12/14/2020) INR 3.40 Blood Historical Provider LAB BLOOD ORDERABLES Agata l Result documented in this encounter Visit Diagnoses Diagnosis Paroxysmal 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- Primary Atrial fibrillation documented in this encounter Additional Health Concerns Infection Onset Date Last Indicated Resolved Time COVID Screen (preop/placement) 01/15/2021 01/15/2021 01/15/2021 10:59 PM EDT documented as of this encounter Care Teams Communications Intern Relationship Specialty Start Date End Date Ferny Gentile MD 1210 [place] [facility] [address] [place] [address] PCP - General 06/11/15 documented as of this encounter
--- OUTSIDE RECORDS SUMMARY | 2025-02-01 15:44 | XMS_ITS | Encounter Summary ---
[facility] Address [address] [place] [address] Care Team Providers Care Administrative Law Judge Name Role Phone Ferny Gentile MD Primary Care Provider [phone] Encounter Details Date Type Department Care Team (Late st Contact Info) Description 11/10/2023 Anticoagulation Visit [facility] [address] [place] [address] Karen Mace, Redeye Gunner Social History Tobacco Use Types Packs/Day Years [...] Description 02/21/2025 10:45 AM EDT Office Visit [facility] CARDIOLOGY 3000 [facility] [address] [place] [phone] Yon Govea MD 1720 [facility] 400 [place] [address] 02/28/2025 11:00 AM EDT Appointment [facility] 206 [place] [address] 06/30/2025 11:30 AM EST Office Visit [facility] RHEUMATOLOGY [address] [address] David Bernstein MD 330 [facility] 100 [place] [address] 06/14/2026 1:30 PM EST Office Visit [facility] CARDIOLOGY 210 [facility] [place] [place] [address] Wojciech Flores MD 1720 [facility] Bld[address] E [address] [place], [place] [address] documented as of this encounter Procedures Procedure Name Priority Date/Time Associated Diagnosis Comments PROTIME-INR Routine 11/06/2023 documented in this encounter Results * Protime-INR (11/06/2023) INR 2.70 Blood 11/06/2023 us Historical Provider LAB BLOOD ORDERABLES Edit ed Result - Final documented in this encounter Visit Diagnoses Not on filedocumented in this encounter Care Teams Administrative Law Judge Relationship Specialty Start Date End Date Ferny Gentile MD 1210 [facility] [address] [place] [address] PCP - General 06/11/15 documented as of this encounter
--- OUTSIDE RECORDS SUMMARY | 2025-02-01 15:44 | XMS_ITS | Encounter Summary ---
[facility] Address [address] [place] [address] Care Team Providers Care Sales Development Executive Name Role Phone Ferny Gentile MD Primary Care Provider [phone] Encounter Details Date Type Department Care Team (Late st Contact Info) Description 11/15/2024 Results Follow-Up [facility] RHEUMATOLOGY [address] [address] David Bernstein MD 330 [facility] 100 [place] [address] Social History Tobacco Use Types [...] Description 02/21/2025 10:45 AM EDT Office Visit [facility] CARDIOLOGY 3000 [facility] [address] [place] [address] Yon Govea MD [address] [address] 02/28/2025 11:00 AM EDT Appointment [facility] [address] [place] [address] 06/30/2025 11:30 AM EST Office Visit [facility] RHEUMATOLOGY [address] [phone] David Bernstein MD 330 [facility] 100 [place] [address] 06/14/2026 1:30 PM EST Office Visit [facility] CARDIOLOGY [address] [place] [address] [address] Wojciech Flores MD 1720 [facility] [address] [place] [address] documented as of this encounter Visit Diagnoses Not on filedocumented in this encounter Care Teams Sales Development Executive Relationship Specialty Start Date End Date Ferny Gentile MD 1210 [facility] [address] [place] [address] PCP - General 06/11/15 documented as of this encounter
--- OUTSIDE RECORDS SUMMARY | 2025-02-01 15:44 | XMS_ITS | Clinical Summary ---
Author Organization Healthcare Address [address] [place] [address] Care Team Providers Care Np Name Role Phone Ferny Gentile MD Primary Care Provider [phone] Family History Medical History Relation Name Comments [...] of Treatment Not on file Care Teams Np Relationship Specialty Start Date End Date Ferny Gentile MD 1210 [facility] [address] [place] [address] PCP - General 09/14/20
--- OUTSIDE RECORDS SUMMARY | 2025-02-01 15:44 | XMS_ITS ---
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 Patient on anticoagulation/recommended aspirin daily. 14-day library monitor 06/29/2019: Average heart rate 74 bpm. PVCs [...]
--- OUTSIDE RECORDS SUMMARY | 2025-02-01 15:44 | XMS_ITS | Encounter Summary ---
Author Organization [facility] Address [address] [place] [address] Care Team Providers Care Construction And Maintenance Inspector Name Role Phone Ferny Gentile MD Primary Care Provider [phone] Encounter Details Date Type Department Care Team (Latest Contact Info) Description 09/24/2018 Anticoagulation Visit [facility] 1720 [facility] 606 [place] [address] Orville Reyes Paroxysmal 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 [...] Description 02/21/2025 10:45 AM EDT Office Visit [facility] [address] [facility] [address] [place] [address] Yon Govea MD 1720 [facility] [address] [place] [address] 02/28/2025 11:00 AM EDT Appointment [facility] 206 [place] [address] 06/30/2025 11:30 AM EST Office Visit [facility] RHEUMATOLOGY [address] [place] [address] David Bernstein MD 330 [facility] [address] [place] [address] 06/14/2026 1:30 PM EST Office Visit [facility] CARDIOLOGY [address] [place] [address] Wojciech Flores MD 1720 [facility] [address] [place] [address] documented as of this encounter Visit Diagnoses Diagnosis Paroxysmal 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 Atrial fibrillation documented in this encounter Additional Health Concerns Infection Onset Date Last Indicated Resolved Time COVID Screen (preop/placement) 12/11/2019 12/11/2019 12/12/2019 2:04 PM EDT COVID Screen (preop/placement) 02/12/2020 02/12/2020 02/14/2020 7:46 AM EDT COVID Screen (preop/placement) 01/15/2021 01/15/2021 01/15/2021 10:59 PM EDT documented as of this encounter Care Teams Construction And Maintenance Inspector Relationship Specialty Start Date End Date Ferny Gentile MD 1210 [facility] [address] [place] [address] PCP - General 06/11/15 documented as of this encounter
--- OUTSIDE RECORDS SUMMARY | 2025-02-01 15:44 | XMS_ITS | Encounter Summary ---
Author Organization [facility] Address [address] [place] [address] Care Team Providers Care Data Entry Processor Name Role Phone Ferny Gentile MD Primary Care Provider [phone] Encounter Details Date Type Department Care Team (Latest Contact Info) Description 06/22/2019 Anticoagulation Visit [facility] 1720 [facility] 606 [place] [address] Leticia Vivar, Pv Design And Installation Technician Paroxysmal 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 Social History Tobacco [...] Description 02/21/2025 10:45 AM EDT Office Visit [facility] C[facility] [address] [facility] [address] [place] [address] Yon Govea MD 1720 [facility] [address] 400 [place] [address] 02/28/2025 11:00 AM EDT Appointment [facility] 206 [place] [address] 06/30/2025 11:30 AM EST Office Visit [facility] RHEUMATOLOGY [address] [place] [address] David Bernstein MD [address] [place] [address] 06/14/2026 1:30 PM EST Office Visit [facility] CARDIOLOGY [address] [place] [address] Wojciech Flores MD [address] [place] [address] documented as of this encounter Procedures Procedure Name Priority Date/Time Associated Diagnosis Comments PROTIME-INR Routine 06/22/2019 documented in this encounter Results * Protime-INR (06/22/2019) INR 2.10 Blood 06/22/2019 us Historical Provider LAB BLOOD ORDERABLES Agata [...] documented as of this encounter Care Teams Data Entry Processor Relationship Specialty Start Date End Date Ferny Gentile MD 1210 [facility] [address] [place] [address] PCP - General 06/11/15 documented as of this encounter
--- OUTSIDE RECORDS SUMMARY | 2025-02-01 15:44 | XMS_ITS | Encounter Summary ---
[facility] Address [address] [place] [address] Care Team Providers Care Client Technical Professional Name Role Phone Ferny Gentile MD Primary Care Provider [phone] Encounter Details Date Type Department Care Team (Late st Contact Info) Description 11/02/2024 Results Follow-Up [facility] RHEUMATOLOGY [address] [address] David Bernstein MD 330 [facility] 100 [place] [address] Social History Tobacco Use Types [...] 10:45 AM EDT Office Visit [facility] CARDIOLOGY 3000 [facility] [address] [place] [address] Yon Govea MD [address] [address] 02/28/2025 11:00 AM EDT Appointment [facility] [address] [place] [address] 06/30/2025 11:30 AM EST Office Visit [facility] RHEUMATOLOGY [address] [phone] David Bernstein MD 330 [facility] 100 [place] [address] 06/14/2026 1:30 PM EST Office Visit [facility] CARDIOLOGY [address] [place] [address] [place] [address] Wojciech Flores MD 1720 [facility] [address] [place] [address] documented as of this encounter Visit Diagnoses Not on filedocumented in this encounter Care Teams Client Technical Professional Relationship Specialty Start Date End Date Ferny Gentile MD 1210 [facility] [address] [place] [address] PCP - General 06/11/15 documented as of this encounter
--- OUTSIDE RECORDS SUMMARY | 2025-02-01 15:44 | XMS_ITS | Encounter Summary ---
[facility] Organization [facility] Address [address] [place] [address] Care Team Providers Care Loans Consultant Name Role Phone Ferny Gentile MD Primary Care Provider [phone] Encounter Details Date Type Department Care Team (Late st Contact Info) Description 07/15/2024 Results Follow-Up [facility] RHEUMATOLOGY [address] [address] David Bernstein MD 330 [facility] 100 [place] [address] Social History Tobacco Use Types [...] Description 02/21/2025 10:45 AM EDT Office Visit [facility] CARDIOLOGY 3000 [facility] [address] [place] [address] Yon Govea MD [address] [address] 02/28/2025 11:00 AM EDT Appointment [facility]ENTER [address] [place] [address] 06/30/2025 11:30 AM EST Office Visit [facility] RHEUMATOLOGY [address] [phone] David Bernstein MD 330 [facility] 100 [place] [address] 06/14/2026 1:30 PM EST Office Visit [facility] CARDIOLOGY [address] [place] [address] Wojciech Flores MD 1720 [facility] [address] [place] [address] documented as of this encounter Visit Diagnoses Not on filedocumented in this encounter Care Teams Loans Consultant Relationship Specialty Start Date End Date Ferny Gentile MD 1210 [facility] [address] [place] [address] PCP - General 06/11/15 documented as of this encounter
--- OUTSIDE RECORDS SUMMARY | 2025-02-01 15:44 | XMS_ITS | Encounter Summary ---
[facility] Organization [facility] Address [address] [place] [address] Care Team Providers Care Livestock Speculator Name Role Phone Ferny Gentile MD Primary Care Provider [phone] Encounter Details Date Type Department Care Team (Late st Contact Info) Description 10/31/2024 Results Follow-Up [facility] CARDIOLOGY 1720 [facility] 400 [place] [address] Yon Govea MD 1720 [facility] 400 [place] [id number] Social History Tobacco Use Types Packs/Day Years [...] Description 02/21/2025 10:45 AM EDT Office Visit [facility] CARDIOLOG[facility] 3000 [facility] [address] [place] [address] Yon Govea MD 1720 [facility] 400 [place] [address] 02/28/2025 11:00 AM EDT Appointment [facility] [address] [place] [address] 06/30/2025 11:30 AM EST Office Visit [facility] RHEUM[facility]OLOGY 330 [facility] 100 [place] [address] David Bernstein MD [address] [facility] 100 [place] [address] 06/14/2026 1:30 PM EST Office Visit [facility] CARDIOLOGY [address] [place] [address] [place] [address] Wojciech Flores MD 1720 [facility] [address] [place] [address] documented as of this encounter Visit Diagnoses Not on filedocumented in this encounter Care Teams Livestock Speculator Relationship Specialty Start Date End Date Ferny Gentile MD 1210 [facility] [address] [place] [address] PCP - General 06/11/15 documented as of this encounter
--- OUTSIDE RECORDS SUMMARY | 2025-02-01 15:44 | XMS_ITS | Encounter Summary ---
[facility] Organization [facility] Address [address] [place] [address] Care Team Providers Care Repair Operator Name Role Phone Ferny Gentile MD Primary Care Provider [phone] Encounter Details Date Type Department Care Team (Late st Contact Info) Description 12/09/2024 Anticoagulation Visit [facility] [address] [place] [address] Dayron Diallo, Social Work Msw Social History Tobacco Use Types Packs/Day Years [...] this encounter Progress Notes * Dayron Diallo, Social Work Msw - 12/09/2024 1:02 PM EDT Anticoagulation Clinic [...] Tablet Strength: 5mg tablets Patient Contact Info: [phone]; Litzy Naranjo (daughter) Patient Findings Negatives: Signs/symptoms [...] further questions at this time. Dayron Diallo [facility] 12/09/2024 13:08 EDT IClaudia, PharmD, have reviewed the note in full and agree with the assessment and plan. 12/09/24 13:12 EDT documented in this encounter Plan of Treatment Upcoming Encounters Date Type Department Care Team (Late st Contact Info) Description 02/21/2025 10:45 AM EDT Office Visit [facility] CARDIOLOGY 3000 [facility] [address] [place] [address] Yon Govea MD 6960 [facility] [address] [place], [place] [address] 02/28/2025 11:00 AM EDT Appointment [facility] [address] [place] [address] 06/30/2025 11:30 AM EST Office Visit [facility] RHEUMATOLOGY [address] [place] [address] David Bernstein MD [address] [place] [address] 06/14/2026 1:30 PM EST Office Visit [facility] CARDIOLOGY [address] [place] [address] Wojciech Flores MD [address] [place] [address] documented as of this encounter Procedures Procedure Name Priority Date/Time Associated Diagnosis Comments PROTIME-INR Routine 12/09/2024 documented in this encounter Results * Protime-INR (12/09/2024) INR 2.20 Blood 12/09/2024 Historical Provider LAB BLOOD ORDERABLES Agata l Result documented in this encounter Visit Diagnoses Not on filedocumented in this encounter Care Teams Repair Operator Relationship Specialty Start Date End Date Ferny Gentile MD 1210 [facility] [address] [place] [address] PCP - General 06/11/15 documented as of this encounter
--- OUTSIDE RECORDS SUMMARY | 2025-02-01 15:44 | XMS_ITS | Clinical Summary ---
[facility] Address [address] [place] [address] Care Team Providers Care Recovery Advocate Name Role Phone Ferny Gentile MD Primary Care Provider [phone] Allergies Active Allergy Reactions Criticality Noted Date [...] 23 Active pantoprazole (PROTONIX) 40 MG EC tabletIndication s:Gastroesophage al reflux disease without esophagitis Take 1 tablet [...] XL (Toprol XL) 50 MG 24 hr tabletIndication s:Paroxysmal 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 Take 1 tablet by mouth Daily. 90 tablet 1 01/30/20 23 Active alendronate (FOSAMAX) 70 MG tablet Take 1 tablet by mouth 1 (One) Time Per Week. 02/18/20 24 Active colestipol (COLESTID) 1 g tablet Take 1 tablet by mouth Daily. 02/08/20 24 Active Myrbetriq 50 MG tablet sustained-releas e 24 hour 24 hr tablet Take 25 [...] Hours. 180 capsule 3 12/13/19 25 Active methylPREDNISolo ne (MEDROL) 4 MG dose pack take by mouth as directed on inside of package 01/07/20 25 Active estradiol (ESTRACE) 0.1 MG/GM vaginal cream As Needed. 10/27/19 25 Active ofloxacin (OCUFLOX) 0.3 % ophthalmic solution 01/10/20 25 Active Active Problems Problem Noted Date Diagnosed Date jail current use of antiarrhythmic medical therapy 09/20/2024 [...] 2014. Patient on anticoagulation/recommended aspirin daily. 14-day residential monitor 06/29/2019: Average heart rate 74 bpm. [...] Encounters Date Type Department Care Team Description 01/27/2025 Anticoagulation Visit [facility] [address] [facility] [address] [place] [address] Natasha Ruano [facility] 01/20/2025 Anticoagulation Visit [facility] [address] [facility] [address] [place] [address] Dayron Diallo, Reducer 01/13/2025 Anticoagulation Visit [facility] [address] [facility] [address] [place] [address] Claudia Bauer, PharmD 01/12/2025 11:30 AM EDT Office Visit [facility] [address] [facility] [place] [address] Wojciech Flores MD Chronic systolic congestive heart failure (Primary Dx); SSS (sick sinus syndrome); Paroxysmal 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; Mixed hyperlipidemia 01/12/2025 Travel 01/11/2025 Telephone [facility] [address] [address] Yue Pandey, DEVELOPMENT TECHNICIAN Appointment 01/06/2025 Anticoagulation Visit [facility] [address] [facility] [address] [place] [address] Dayron Diallo Reducer 12/30/2024 Anticoagulation Visit [facility] [address] [facility] [address] [place] [address] Dayron Diallo, Reducer 12/23/2024 Anticoagulation Visit [facility] [address] [facility] [address] [place] [address] Yoel, Dayron, Reducer 12/16/2024 Anticoagulation Visit [facility] [address] [facility] [address] [place] [address] Claudia Bauer, PharmD 12/12/2024 Refill [facility] [address] [facility] [address] [place] [address] Yon Govea MD Med Refill 12/09/2024 Anticoagulation Visit [facility] [address] [facility] [address] [place] [address] Dayron Diallo, Reducer 12/02/2024 Anticoagulation Visit [facility] [address] [facility] [address] [place] [address] Claudia Bauer, PharmD 11/25/2024 Anticoagulation Visit [facility] [address] [facility] [address] [place] [address] Claudia Bauer, PharmD 11/18/2024 Anticoagulation Visit [facility] [address] [facility] [address] [place] [address] Cinthia Mcintyre, Reducer 11/17/2024 Refill [facility] [address] [facility] [address] [place] [address] Wojciech Flores MD 11/15/2024 Results Follow-Up [facility] [address] [address] David Bernstein MD 11/11/2024 Anticoagulation Visit [facility] [address] [facility] [address] [place] [address] Dayron Diallo, Reducer 11/08/2024 Anticoagulation Visit [facility] [address] [facility] [address] [place] [address] Briseida Saldana, PharmD 11/02/2024 Results Follow-Up [facility] [address] [place] [address] David Bernstein MD 11/01/2024 Anticoagulation Visit [facility] [address] [place] [address] Abner Jack, Reducer from Last 3 Months Family History Medical History Relation Name Comments Arthritis Daughter Sebastian's thyroiditis Daughter Hemochromatosis Daughter Osteoporosis Daughter Thyroid cancer Daughter Dementia Father Simon Heart failure Father Simon Kidney failure Father Simon Arthritis Mother Angie COPD Mother Angie Cancer Mother Angie Dementia Mother Angie Heart disease Mother Angie Heart failure Mother Angie Osteoporosis Mother Angie No Known Problems Sister Breast cancer Neg Hx Endometrial cancer Neg Hx Ovarian cancer Neg Hx Relation Name Status Comments Daughter Father Simon Mother Angie (Age 94) Sister Social History Tobacco Use [...] Pulse 72 01/12/2025 11:32 AM EDT Temperature 35.9 C (96.7 F) 10/28/2024 9:54 AM EDT Respiratory Rate 16 08/22/2022 1:15 PM EDT Oxygen Saturation 98% 01/12/2025 11:32 AM EDT Inhaled Oxygen Concentration - - Weight 81.2 kg (179 lb) 01/12/2025 11:32 AM EDT Height 162.6 cm (5' 4.02 ) 01/12/2025 11:32 AM E DT Body Mass Index 30.71 01/12/2025 11:32 AM EDT Plan of Treatment Upcoming Encounters Date Type Department Care Team (Late st Contact Info) Description 02/21/2025 10:45 AM EDT Office Visit [facility] [address] [facility] [address] [place] [address] Yon Govea MD [address] [facility] [address] [place] [id number] 02/28/2025 11:00 AM EDT Appointment [facility] [address] [place] [address] 06/30/2025 11:30 AM EST Office Visit [facility] [address] [facility] [address] [place] [address] David Bernstein MD 330 [facility] [address] [place], [place] [address] 06/14/2026 1:30 PM EST Office Visit [facility] [address] [place] [address] [place] [address] Wojciech Flores MD [address] [place], [place] [id number] Health Maintenance Due Date Last Done Comments [...] 08/21/2023 08/20/2022, 0209/2022, 05/13/2022, Additional history exists INFLUENZA VACCINE 12/02/2024 02/19/2022, , 02/01/2022, Additional history exists COVID-19 Vaccine (2024-2 6 season) 2025 03/13/2021, 06/11/2020, 05/09/2020 COLONOSCOPY 02/14/2032 02/13/2022, 02/01, 07/13/2017, Additional history exists COLORECTAL CANCER SCREENING 02/14/2032 MAMMOGRAM Discontinued 03/01/2024, 02/02, 02/23/2023, Additional history exists Medical Devices Implanted Type Area Sand Miller Device Identifier Shelf Expiration Date Model / Serial / Lot Ld Pm Tendril Sts 6f52cm [id number] - [id number] - [id number] Implanted:Qty: 1 on 12/14/2019 by Barry Hennessy MD at [facility] Lead [employer] 10/01/[id number] / [id number] / [id number] Ld Pm Tendril Sts 6f46cm [id number] - [id number] - [id number] Implanted:Qty: 1 on 12/14/2019 by Barry Hennessy MD at [facility] Lead [employer] 10/01/[id number] / [id number] / [id number] Gen Pm Assurity Mri Dr Rf [id number] - [id number] - [id number] Implanted:Qty: 1 on 12/14/2019 by Barry Hennessy MD at [facility] Pacemaker [employer] 05/03/2021 [id number] / [id number] / [id number] Procedures Procedure Name Priority Date/Time Associated Diagnosis Comments PROTIME-INR Routine 01/27/2025 PROTIME-INR Routine 01/20/2025 REMOTE DEVICE CHECK 01/16/2025 2 :00 AM EDT PROTIME-INR Routine 01/13/2025 PROTIME-INR Routine 01/06/2025 PROTIME-INR Routine 12/30/2024 PROTIME-INR Routine 12/23/2024 PROTIME-INR [...] use PROTIME-INR Routine 11/11/2024 PROTIME-INR Routine 11/04/2024 MAMMO SCREENING MODIFIED WITH TOMOSYNTHESIS RIGHT W CAD Routine 02/26/2024 11:19 AM EDT Visit for screening mammogram LIPID PANEL Routine 06/08/2022 10:16 AM EST from Last 3 Months or Most Recently Relevant to Health Maintenance Results * Protime-INR (01/27/2025) Only the most recent of13 resultswithin the time period is included. INR 3.40 Blood us Historical Provider MD LAB BLOOD ORDERABLES Agata l Result * Remote Device Check (01/16/2025 2:00 AM EDT) Date Time Interrogation Session [id number] [facility] Type Interrogation Session Remote Scheduled [facility] Implantable Pulse Generator Sand [employer] [facility] Implantable Pulse Generator Type IPG [facility] Implantable Pulse Generator Model 2272 Assurity MRI(TM) [facility] Implantable Pulse Generator Serial Number [id number] [facility] Implantable Pulse Generator Implant Date [id number] [facility] Battery Remaining Percentage 54.00 % [facility] Battery Remaining Longevity 67.0 mo [facility] Battery Voltage 2.990 [facility] Battery FORESTRY SUPPORT SPECIALIST Trigger 2.600 [facility] Battery Status Middle of Service [facility] Will Statistic RA Percent Paced 29.00 [facility] Atrial Tachy Statistic AT/AF [place] Percent 2.00 [facility] Lead Channel RA Sensing Intrinsic Amplitude 3.600 [facility] Lead Channel Setting RA Sensing Sensitivity 0.50 [facility] Lead Channel RA Impedance Value 480 [facility] Lead Channel Setting RA Pacing Amplitude 2.000 [facility] Lead Channel Setting RA Pacing Pulse Width 0.5 [facility] Will Setting Mode (NBG Code) AAIR [facility] Will Setting Lower Rate Limit 70 [facility] Will Setting AT Mode Switch Rate 160 [facility] Will Setting Maximum Sensor Rate 105 [facility] Lead Channel Setting RA Sensing Polarity Bipolar [facility] Lead Channel Setting RV Sensing Polarity Bipolar [facility] Lead Channel Setting RA Pacing Polarity Bipolar [facility] Lead Channel Setting RV Pacing Polarity Bipolar [facility] Lead Channel RA Pacing Threshold Polarity Bipolar [facility] 01/16/2025 2:00 AM EDT Yon Govea MD CV IMPLANTABLE CARDIAC DEVICE Fi nal Result Performing Organization Address City/[facility]/ZIP Co de Phone Number [facility] * C-reactive Protein (11/14/2024 10:07 AM EDT) Blood us David Bernstein MD LAB BLOOD ORDERABLES Final Result Performing Organization Address City/[facility]/ZIP Co de Phone Number [facility] [address] [place] [address], [place] [phone] * LABS SCANNED (11/14/2024) us David Bernstein MD LAB BLOOD ORDERABLES Final Result * Comprehensive Metabolic Panel (11/14/2024) Blood us David Bernstein MD LAB BLOOD ORDERABLES Final Result Performing Organization Address City/[facility] Co de Phone Number [facility] [address] [place] [address], [place] [phone] * Mammo Screening Modified With Tomosynthesis Right [...] - 200 mg/dL 06/08/2022 10:49 AM EST [facility] Triglycerides 113 0 - 150 mg/dL 06/08/2022 10:49 AM EST [facility] HDL Cholesterol 37(L) 40 - 60 mg/dL 06/08/2022 10:49 AM EST [facility] LDL Cholesterol 43 0 - 100 mg/dL 06/08/2022 10:49 AM EST [facility] VLDL Cholesterol 21 5 - 40 mg/dL 06/08/2022 10:49 AM [facility] LDL/HDL Ratio 1.12 06/08/2022 10:49 AM EST [facility] Blood Venipuncture / Unknown 06/08/2022 10:16 AM EST 06/08/2022 10:22 AM EST Narrative [facility] - 06/08/2022 10:49 AM EST Cholesterol [...] MD LAB BLOOD ORDERABLES Final Resul t [facility]
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
--- OUTSIDE RECORDS SUMMARY | 2025-02-01 15:44 | XMS_ITS | Encounter Summary ---
[facility] Address [address] [place] [address] Care Team Providers Care Marketing Editor Name Role Phone Ferny Gentile MD Primary Care Provider [phone] Reason for Visit * Reason Comments Med Refill Encounter Details Date Type Department Care Team (Late st Contact Info) Description 01/30/2024 Refill [facility] [address] [place] [address] [place] [address] Wojciech Flores MD [address] [facility] [place] [address] Med Refill Social History Tobacco Use Types [...] Visit [facility] [address] [facility] [address] [place] [address] Yon Govea MD [address] [facility] [address] [place] [address] 02/28/2025 11:00 AM EDT Appointment [facility] [address] [place] [address] 06/30/2025 11:30 AM EST Office Visit [facility] [address] [facility] [address] [place] [address] David Bernstein MD [address] [facility] 100 [place] [address] 06/14/2026 1:30 PM EST Office Visit [facility] [address] [place] [address] [place] [address] Wojciech Flores MD [address] [facility] [address] [place] [address] documented as of this encounter Visit Diagnoses Not on filedocumented in this encounter Care Teams Marketing Editor Relationship Specialty Start Date End Date Ferny Gentile MD [address] [facility] [address] [place] [address] PCP - General 06/11/15 documented as of this encounter
[2025-02-01 16:21] LABS: Hematocrit 39.2 % (37.0-47.0); Hemoglobin 13.0 g/dL (12.2-16.2); Immature Granulocytes % 1.4 %; Mean Corpuscular HGB Conc 33.2 g/dL (31.8-35.4); Mean Corpuscular Hemoglobin 30.9 pg (27.0-31.2); Mean Corpuscular Volume 93.1 fl (81-99); Nucleated Red Blood Cells % 0 %; Platelet Count 193 K/mm3 (142-424); Red Blood Count 4.21 M/mm3 (4.20-5.40); Red Cell Distribution Width-SD 48.4 fL; White Blood Count 6.6 K/mm3 (4.8-10.8)
[2025-02-01 17:14] LABS: Alanine Aminotransferase 21 U/L (12-78); Albumin Level 4.5 g/dl (3.5-5.0); Albumin/Globulin Ratio 2.0 (1.1-1.8); Alkaline Phosphatase 106 U/L (38-126); Anion Gap 14.4 mEq/L (5-15); Aspartate Amino Transferase 31 U/L (14-36); Bilirubin,Total 0.6 mg/dl (0.2-1.3); Blood Urea Nitrogen 30 mg/dl (7-17); Calcium 9.4 mg/dl (8.4-10.2); Carbon Dioxide 23 mmol/L (22.0-30.0); Chloride 103 mmol/L (98-107); Creatinine,Serum 1.20 mg/dl (0.52-1.04); Estimated Glomerular Filt Rate 43 ml/min (>60); GFR (African American) 52 ML/MIN (>60); Globulin 2.3 g/dL (1.3-3.2); Glucose 95 mg/dl (74-100); Potassium 4.4 mmoL/L (3.5-5.1); Sodium 136 mmol/L (136-145); Total Protein,Serum 6.8 g/dl (6.3-8.2)
[2025-02-01 17:21] LABS: C-Reactive Protein 1.9 mg/L (0-4)
[2025-02-01 17:44] LABS: Total Cells Counted 100
[2025-02-01 17:45] LABS: RBC Morphology Normal
== END 2025-02-01 23:59 | disposition home or self-care (01) ==
LOC: LAB 15:41
PROVIDERS: PCP Internal Medicine; Visit Provider Internal Medicine
DX: M05.79 Rheumatoid arthritis with rheumatoid factor of multiple sites without organ or systems involvement (principal); Z79.899 Other long term (current) drug therapy
CPT/HCPCS: 36415; 80053; 85007; 85025; 85651; 86140

== ENCOUNTER 2025-02-16 11:26 | Outpatient (CLI) | payer MEDICARE, OTHER, SELFPAY ==
[2025-02-16 17:39] LABS: Hematocrit 40.6 % (37.0-47.0); Hemoglobin 13.2 g/dL (12.2-16.2); Immature Granulocytes % 1.6 %; Mean Corpuscular HGB Conc 32.5 g/dL (31.8-35.4); Mean Corpuscular Hemoglobin 30.3 pg (27.0-31.2); Mean Corpuscular Volume 93.3 fl (81-99); Nucleated Red Blood Cells % 0 %; Platelet Count 228 K/mm3 (142-424); Red Blood Count 4.35 M/mm3 (4.20-5.40); Red Cell Distribution Width-SD 47.4 fL; White Blood Count 8.5 K/mm3 (4.8-10.8)
[2025-02-16 18:00] LABS: Alanine Aminotransferase 22 U/L (12-78); Albumin Level 4.2 g/dl (3.5-5.0); Albumin/Globulin Ratio 1.8 (1.1-1.8); Alkaline Phosphatase 96 U/L (38-126); Anion Gap 16.1 mEq/L (5-15); Aspartate Amino Transferase 32 U/L (14-36); Bilirubin,Total 0.8 mg/dl (0.2-1.3); Blood Urea Nitrogen 27 mg/dl (7-17); Calcium 9.2 mg/dl (8.4-10.2); Carbon Dioxide 25 mmol/L (22.0-30.0); Chloride 102 mmol/L (98-107); Cholesterol 121 mg/dl (140-200); Creatinine,Serum 1.30 mg/dl (0.52-1.04); Estimated Glomerular Filt Rate 39 ml/min (>60); GFR (African American) 47 ML/MIN (>60); Globulin 2.3 g/dL (1.3-3.2); Glucose 80 mg/dl (74-100); HDL Cholesterol 48 mg/dl (40-60); Potassium 5.1 mmoL/L (3.5-5.1); Sodium 138 mmol/L (136-145); Total Protein,Serum 6.5 g/dl (6.3-8.2); Triglycerides 153 mg/dl (30-150)
[2025-02-16 18:25] LABS: Total Cells Counted 100
[2025-02-16 18:28] LABS: Thyroid Stimulating Hormone 1.80 uIU/mL (0.465-4.68)
[2025-02-16 18:29] LABS: RBC Morphology Normal
--- OUTSIDE RECORDS SUMMARY | 2025-02-20 11:29 | XMS_ITS | Encounter Summary ---
Author Organization [employer] ([place], [place], [place], [place]) Address [address] [place] [address] Care Team Providers Care Chief Wheelage Clerk Name Role Phone Ferny Gentile Primary Care Provider [phone] Encounter Details Date Type Department Care Team (Late st Contact Info) Description 12/15/2018 Transcribed Document [facility] Medicine [facility] [place] [address] ProviderArt MD [address] [place] [address] Social History Tobacco Use Types Packs/Day [...] on filedocumented in this encounter Care Teams Chief Wheelage Clerk Relationship Specialty Start Date End Date Ferny Gentile [address] [place] [address] PCP - General 05/22/22 documented as of this encounter
--- OUTSIDE RECORDS SUMMARY | 2025-02-20 11:29 | XMS_ITS | Encounter Summary ---
Author Organization [employer] ([place], [place], [place], [place]) Address [address] [place] [address] Care Team Providers Care Customer Service Consultant Name Role Phone SeferinoSakinat Primary Care Provider [phone] Encounter Details Date Type Department Care Team (Late st Contact Info) Description 12/14/2018 Transcribed Document [facility] [place] [facility] [place] [address] ProviderArt MD [address] [place] [address] Social History Tobacco Use Types Packs/Day [...] 12/14/2018 6:13 EDT by Ana Overton Patient Stock Preparation Operator Height and Weight, Clinical Dosing Height Source : Stated Height Entry Format : Angelina Height, Feet : 5 ft(Converted to: 152 cm, 60 Inch) Height, Inches : 7 Inch(Converted to: 0 ft 7 Inch, 17.78 cm) Clinical Height : 170.18 cm Weight Source : Standing scale Weight Entry Format : Angelina Clinical Dosing Weight : 90.91 kg Weight, Pounds : 200 lb Body Surface Area (BSA) : 2.02 m2 Body Mass Index : 31.4 kg/m2 ([place]) [place] Body Weight : 61 kg Ana Overton, Patient Stock Preparation Operator - 12/14/2018 6:13 EDT documented in this encounter Plan of Treatment Not on file documented as of this encounter Visit Diagnoses Not on filedocumented in this encounter Care Teams Customer Service Consultant Relationship Specialty Start Date End Date Ferny Gentile [address] [place] [address] PCP - General 05/22/22 documented as of this encounter
--- OUTSIDE RECORDS SUMMARY | 2025-02-20 11:29 | XMS_ITS | Referral Summary ---
Author Organization [employer] ([place], [place], [place], [place]) Address [address] [place] [address] Care Team Providers Care Pneumatic Press Hand Name Role Phone Sakina Gentilet Primary Care Provider [phone] Allergies Active Allergy Reactions Criticality Noted Date [...] oxide 400 mg magnesium Tab daily. Active ym-dey-erytkh- [id number]-fyc-jwe- 27 0.5-30-60-90 mg Cap daily. Active cholecalcifero [...] Date Alfredo rded Speak language other than Samoan at home Not on file 05/22/2023 Want [...] on file Medical Devices Implanted Type Area Clay Press Operator Device Identifier Shelf Expiration Date Model / Serial / Lot Cement Bone [place] Hv 40/20 600-15-000 - [id number] Implanted:Qty : 2 on 05/26/2022 by Eliseo Cuevas MD at [facility] IMPLANTS Left: Knee DJ SURG:ENCORE MED:BRIANTANOOGA 05/30/2023 600-15-00 0 / / [id number] Ty Tib I-Beam Fix Biomet 75mm [id number] - [id number] Implanted:Qty : 1 on 05/26/2022 by lEiseo Cuevas MD at [facility] TOTAL JOINT CONSTRUCT Left: Knee BIOMET 03/26/2032 [id number] / / [id number] Patella Std 8x31mm [id number] - [id number] Implanted:Qty : 1 on 05/26/2022 by Elisoe Cuevas MD at [facility] TOTAL JOINT CONSTRUCT Left: Knee BIOMET 03/12/2027 [id number] / / [id number] Comp Fem Ps Vangrd 65mm [id number] - [id number] Implanted:Qty : 1 on 05/26/2022 by Eliseo Cuevas MD at [facility] TOTAL JOINT CONSTRU[employer] Left: Knee BIOMET 10/13/2029 [id number] / / [id number] Insrt Tib Bear Ps 10x71/75 [id number] - [id number] Implanted:Qty : 1 on 05/26/2022 by Eliseo Cuevas MD at [facility] TOTAL JOINT CONSTRUCT Left: Knee BIOMET 11/07/2025 [id number] / / [id number] Insurance MEDICARE PART [place] [address] Advance Directives For more information, please contact: [phone] * Full Code (Latest Code Status on File) Date Activated Date Inactivated Comments 05/26/2022 3:06 PM 05/29/2022 8:04 PM * Full Code Date Activated Date Inactivated Comments 05/26/2022 8:57 AM 05/26/2022 3:06 PM Care Teams Pneumatic Press Hand Relationship Specialty Start Date End Date Ferny Gentile [address] [place] [address] PCP - General 05/22/22
--- OUTSIDE RECORDS SUMMARY | 2025-02-20 11:29 | XMS_ITS | Encounter Summary ---
Author Organization [employer] ([place], [place], [place], [place]) Address [address] [place] [address] Care Team Providers Care Tracer Bullet Charging Machine Operator Name Role Phone Ferny Gentile Primary Care Provider [phone] Encounter Details Date Type Department Care Team (Late st Contact Info) Description 12/14/2018 Transcribed Document [place] Family Medicine [facility] [place] [address] ProviderArt MD [address] [place] [address] Social History Tobacco Use Types Packs/Day [...] on filedocumented in this encounter Care Teams Tracer Bullet Charging Machine Operator Relationship Specialty Start Date End Date Ferny Gentile [address] [place] [address] PCP - General 05/22/22 documented as of this encounter
--- OUTSIDE RECORDS SUMMARY | 2025-02-20 11:29 | XMS_ITS | Encounter Summary ---
Author Organization [facility] ([place], [place], [place], [place]) Address [address] [place] [address] Care Team Providers Care Glucose And Syrup Weigher Name Role Phone Ferny Gentile Primary Care Provider [phone] Encounter Details Date Type Department Care Team (Late st Contact Info) Description 12/14/2018 Transcribed Document [facility] [place] [address] ProviderArt MD [address] [place] [address] Social History Tobacco Use Types Packs/Day [...] on filedocumented in this encounter Care Teams Glucose And Syrup Weigher Relationship Specialty Start Date End Date Ferny Gentile [address] [place] [address] PCP - General 05/22/22 documented as of this encounter
--- OUTSIDE RECORDS SUMMARY | 2025-02-20 11:29 | XMS_ITS | Encounter Summary ---
Author Organization [employer] ([place], [place], [place], [place]) Address [address] [place] [address] Care Team Providers Care Charge Machine Operator Name Role Phone SeferinoSakinat Primary Care Provider Encounter Details Date Type Department Care Team (Late st Contact Info) Description 12/14/2018 Transcribed Document [facility] [place] Family [place] [facility] [place] [address] ProviderArt MD [address] [place] [address] Social History Tobacco Use Types Packs/Day [...] Source : Stated Height Entry Format : [employer] Height, Feet : 5 ft(Converted to: 152 cm, 60 Inch) Height, Inches : 7 Inch(Converted to: 0 ft 7 Inch, 17.78 cm) Clinical Height : 170.18 cm Weight Source : Standing scale Weight Entry Format : [employer] Clinical Dosing Weight : 90.91 kg Weight, Pounds : 200 lb Body Surface Area (BSA) : 2.02 m2 Body Mass Index : 31.4 kg/m2 ([place]) [place] Body Weight : 61 kg SHERLYN THOMPSON [...] Obtained From : Patient Primary Language : Kenyan Preferred Communication Mode : Verbal Communication Barrier [...] Level : 46 or > High Risk Roundup Fall Interventions : Adequate lighting, Assistive devices [...] rendition version of the form. Marcella Coma [place] Best Motor Response : Obey commands [place] Best Verbal Response : Oriented [place] Eye Opening Response : Spontaneous Marcella Coma Score : 15 SHERLYN THOMPSON RN - 12/14/2018 6:06 EDT Electronically signed by Marilou Freeman [facility] Conversion Combination Man Cerner at 08/18/2022 11:30 AM CDT documented in this encounter Plan of Treatment Not on file documented as of this encounter Visit Diagnoses Not on filedocumented in this encounter Care Teams Charge Machine Operator Relationship Specialty Start Date End Date Ferny Gentile [address] [place] [address] PCP - General 05/22/22 documented as of this encounter
--- OUTSIDE RECORDS SUMMARY | 2025-02-20 11:29 | XMS_ITS | Encounter Summary ---
Author Organization [employer] ([place], [place], [place], [place]) Address [address] [place] [address] Care Team Providers Care Sap Fico Business Analyst Name Role Phone Ferny Gentile Primary Care Provider [phone] Encounter Details Date Type Department Care Team (Late st Contact Info) Description 12/14/2018 Transcribed Document [facility] [place] Family Medicine [address] [place] [address] ProviderArt MD [address] [place] [address] Social History Tobacco Use Types Packs/Day [...] ipratropium 42 mcg/inh (0.06%) nasal spray 2 [place], Nasal, BID Konsyl , Oral, Daily magnesium [...] on filedocumented in this encounter Care Teams Sap Fico Business Analyst Relationship Specialty Start Date End Date Ferny Gentile [address] [place] [address] PCP - General 05/22/22 documented as of this encounter
--- OUTSIDE RECORDS SUMMARY | 2025-02-20 11:29 | XMS_ITS | Encounter Summary ---
Author Organization [employer] ([place], [place], [place], [place]) Address [address] [place] [address] Care Team Providers Care Agency Service Coordinator Name Role Phone Ferny Gentile Primary Care Provider [phone] Encounter Details Date Type Department Care Team (Late st Contact Info) Description 12/15/2018 Transcribed Document [facility] [place] Family Medicine [place] [address] ProviderArt MD [address] [place] [address] Social History Tobacco Use Types Packs/Day [...] Art ProviderMD - 12/15/2018 11:22 AM CDT [place] [id number] UZAIR MADERA :1940 Visit Time:12/14/2018 Your Visit [...] WALKER, PT WILL HAVE HOME THERAPY WITH [employer] [phone], PATIENT CHECKS HER OWN INR WITH HOME MACHINE, 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 Do NOT skip [...] Barley. Bulgur wheat. Millet. Bran muffins. Popcorn. Galt wafer crackers. Vegetables Sweet potatoes. Spinach. Kale. Artichokes. Cabbage. Broccoli. Green peas. Carrots. Squash. Fruits Berries. Pears. Apples. Oranges. Avocados. Prunes and raisins. Dried figs. Meats and Other Protein Sources Dime Box, kidney, shrestha, and soy beans. Split peas. [...] zuri has 11 g of protein. ??? [place] seeds ??? 1 oz has 5.5 g [...] floor. ??? Place frequently used items in mvmi-bc-ocnxc places ??? Keep electrical cables out of [...] ??? Using the bathroom. ??? Using household art glass designer or toxic chemicals. ??? Touching or taking [...] are a day sleeper or work a line out man. Some people have thoughts about suicide while [...] may report side effects to FDA at 9-436-PGL-5116. What other drugs will affect gabapentin? Taking gabapentin with other drugs that make you sleepy can worsen this effect. Ask your doctor before taking a sleeping pill, narcotic medication, muscle relaxer, or medicine for anxiety, depression, or seizures. Other drugs may interact with gabapentin, including prescription and lzeo-dkq-pgtdvel medicines, vitamins, and herbal products. Tell your [...] to ensure that the information provided by [employer]. ('[employer]') is accurate, up-to-date, and complete, but no guarantee is made to that effect. Drug information contained herein may be time sensitive. [employer] information has been compiled for use by healthcare practitioners and consumers in the [place] and therefore [employer] does not warrant that uses outside of the [place] are appropriate, unless specifically indicated otherwise. [employer] drug information does not endorse drugs, diagnose patients or recommend therapy. [employer] drug information is an informational resource designed [...] effective or appropriate for any given patient. [employer] does not assume any responsibility for any aspect of healthcare administered with the aid of information [employer] provides. The information contained herein is not intended to cover all possible uses, directions, precautions, warnings, drug interactions, allergic reactions, or adverse effects. If you have questions about the drugs you are taking, check with your doctor, nurse or pharmacist. Copyright 8993-8979 [employer]. Version: 14.01. Revision Date: 02/10/2017. hydromorphone (oral) [...] extended-release form of this medicine is for syctdz-qbb-cswxc treatment of moderate to severe pain, not [...] against the law. Stop taking all other uqmsba-eyy-fvbpc narcotic pain medications when you start taking [...] may report side effects to FDA at 4-767-UVC-1283. What other drugs will affect hydromorphone? Opioid [...] drugs may affect hydromorphone, including prescription and crat-bfk-qaavljv medicines, vitamins, and herbal products. Not all [...] to ensure that the information provided by [employer]. ('[employer]') is accurate, up-to-date, and complete, but no guarantee is made to that effect. Drug information contained herein may be time sensitive. [employer] information has been compiled for use by healthcare practitioners and consumers in the [place] and therefore [employer] does not warrant that uses outside of the [place] are appropriate, unless specifically indicated otherwise. [employer] drug information does not endorse drugs, diagnose patients or recommend therapy. [employer] drug information is an informational resource designed [...] effective or appropriate for any given patient. [employer] does not assume any responsibility for any aspect of healthcare administered with the aid of information [employer] provides. The information contained herein is not intended to cover all possible uses, directions, precautions, warnings, drug interactions, allergic reactions, or adverse effects. If you have questions about the drugs you are taking, check with your doctor, nurse or pharmacist. Copyright 0442-5848 [employer]. Version: 9.02. Revision Date: 03/31/2018. acetaminophen and hydrocodone (a SEET a MIN oh fen and noah droe KOE done) Hycet, Lorcet, Mcgregor, Verdrocet, Vicodin, Xodol, Zamicet What is the [...] may report side effects to FDA at 1-684-IRR-4409. What other drugs will affect acetaminophen and [...] affect acetaminophen and hydrocodone, including prescription and btzc-glv-racdmar medicines, vitamins, and herbal products. Not all [...] to ensure that the information provided by [employer] ('[employer]') is accurate, up-to-date, and complete, but no guarantee is made to that effect. Drug information contained herein may be time sensitive. [employer] information has been compiled for use by healthcare practitioners and consumers in the [place] and therefore [employer] does not warrant that uses outside of the [place] are appropriate, unless specifically indicated otherwise. [employer] drug information does not endorse drugs, diagnose patients or recommend therapy. [employer] drug information is an informational resource designed [...] effective or appropriate for any given patient. [employer] does not assume any responsibility for any aspect of healthcare administered with the aid of information [employer] provides. The information contained herein is not intended to cover all possible uses, directions, precautions, warnings, drug interactions, allergic reactions, or adverse effects. If you have questions about the drugs you are taking, check with your doctor, nurse or pharmacist. Copyright 0737-9791 [employer]. Version: 15.02. Revision Date: 03/08/2018. tramadol (TRAM [...] extended-release form of this medicine is for qqchan-crl-tdxzw treatment of pain. This form of tramadol [...] against the law. Stop taking all other zpskqc-lnl-yatny narcotic pain medications when you start taking [...] may report side effects to FDA at 5-072-XOK-2450. What other drugs will affect tramadol? You [...] may affect tramadol. This includes prescription and oujw-iqs-hljrejt medicines, vitamins, and herbal products. Not all [...] to ensure that the information provided by [employer] ('[employer]') is accurate, up-to-date, and complete, but no guarantee is made to that effect. Drug information contained herein may be time sensitive. [employer] information has been compiled for use by healthcare practitioners and consumers in the [place] and therefore [employer] does not warrant that uses outside of the [place] are appropriate, unless specifically indicated otherwise. [employer]'s drug information does not endorse drugs, diagnose patients or recommend therapy. [employer] drug information is an informational resource designed [...] effective or appropriate for any given patient. [employer] does not assume any responsibility for any aspect of healthcare administered with the aid of information [employer] provides. The information contained herein is not intended to cover all possible uses, directions, precautions, warnings, drug interactions, allergic reactions, or adverse effects. If you have questions about the drugs you are taking, check with your doctor, nurse or pharmacist. Copyright 8674-4307 [employer]. Version: 20.01. Revision Date: 08/12/2018. Emergency Awareness [...] Assistance with quitting is available by contacting 1-915-BIPFNOW. This is a free resource providing counseling, [...] on filedocumented in this encounter Care Teams Agency Service Coordinator Relationship Specialty Start Date End Date Ferny Gentile [address] [place] [phone] PCP - General 05/22/22 documented as of this encounter
--- OUTSIDE RECORDS SUMMARY | 2025-02-20 11:29 | XMS_ITS | Encounter Summary ---
Author Organization [employer] ([place], [place], [place], [place]) Address [address] [place] [address] Care Team Providers Care Cutting Pressman Name Role Phone Ferny Gentile Primary Care Provider Encounter Details Date Type Department Care Team (Late st Contact Info) Description 12/15/2018 Transcribed Document [facility] [place] [facility] [place] [address] ProviderArt MD [address] [place] [address] Social History Tobacco Use Types Packs/Day [...] Performed On: 12/15/2018 5:00 EDT by Amos Robertson RN Chart Check Powerplans Initiated/Discontinued as Appropriate : Yes All Active Orders Reviewed : Yes Amos Robertson RN - 12/15/2018 3:02 EDT Electronically signed by Brina Zamarripa Conversion Radiological Equipment Specialist Cerner at 08/18/2022 11:13 AM CDT documented in this encounter Plan of Treatment Not on file documented as of this encounter Visit Diagnoses Not on filedocumented in this encounter Care Teams Cutting Pressman Relationship Specialty Start Date End Date Ferny Gentile [address] [place] [address] PCP - General 05/22/22 documented as of this encounter
--- OUTSIDE RECORDS SUMMARY | 2025-02-20 11:30 | XMS_ITS | Encounter Summary ---
Author Organization [employer] ([place], [place], [place], [place]) Address [address] [place] [address] Care Team Providers Care Collections Analyst Name Role Phone Ferny Gentile Primary Care Provider [phone] Encounter Details Date Type Department Care Team (Late st Contact Info) Description 12/14/[address] [facility] [place] [address] ProviderArt MD [address] [place] [address] Social History Tobacco Use Types Packs/Day [...] Art ProviderMD - 12/14/2018 8:10 AM CDT [facility] [place] Summary Primary Physician: MATTHEW BANEGAS MD-TITO Finalized Date/Time: 12/14/18 10:16:12 Pt. Name: UZAIR MADERA Kit Pereira/Sex: 1940 Female Med Rec #: [id number] Physician: MATTHEW BANEGAS MD-TITO Financial #: [id number] Pt. Type: I Room/Bed: [facility]/ Admit/Disch: 12/14/18 04:48:00 - Institution: [facility] [place] PACU Case Times Entry 1 In PACU I 12/14/18 09:35:00 Ready for PACU 12/14/18 10:10:00 Discharge Discharge from PACU 12/14/18 10:10:00 I Last Modified By: Michael Ferrer, Omar 12/14/18 10:15:34 [facility] Main OR PACU Acuity Entry 1 Start Time 12/14/18 10:11:00 Stop Time 12/14/18 10:15:00 Acuity Level [facility] PACU Acuity I Last Modified By: Michael Ferrer, Omar 12/14/18 10:15:43 Finalized By: Michael Ferrer, Rn Document Signatures Signed By: Michael Ferrer Rn 12/14/18 10:16 Electronically signed by Marilou [facility] Conversion Field Ring Assembler Cerner at 08/18/2022 11:19 AM CDT documented in this encounter Plan of Treatment Not on file documented as of this encounter Visit Diagnoses Not on filedocumented in this encounter Care Teams Collections Analyst Relationship Specialty Start Date End Date Seferino Ferny [address] [place] [address] PCP - General 05/22/22 documented as of this encounter
--- OUTSIDE RECORDS SUMMARY | 2025-02-20 11:30 | XMS_ITS | Encounter Summary ---
Author Organization [employer] ([place], [place], [place], [place]) Address [address] [place] [address] Care Team Providers Care Laborer Livestock Name Role Phone SeferinoSakinat Primary Care Provider [phone] Encounter Details Date Type Department Care Team (Late st Contact Info) Description 12/14/2018 Transcribed Document [facility] [place] [facility] [place] [address] ProviderArt MD [address] [place] [address] Social History Tobacco Use Types Packs/Day [...] 12/14/2018 14:53 EDT by NICHOLE ARIZMENDI Care Management-Rotor Coil Taper Care Management Progress Note Discharge Arrangements : [...] Medical Necessity : Yes NICHOLE ARIZMENDI, Care Management-Rotor Coil Taper - 12/14/2018 14:53 EDT Electronically signed by Marilou [facility] Conversion Manager Proposal Cerner at 08/18/2022 11:26 AM CDT documented in this encounter Plan of Treatment Not on file documented as of this encounter Visit Diagnoses Not on filedocumented in this encounter Care Teams Laborer Livestock Relationship Specialty Start Date End Date Ferny Gentile [address] [place] [address] PCP - General 05/22/22 documented as of this encounter
--- OUTSIDE RECORDS SUMMARY | 2025-02-20 11:30 | XMS_ITS | Encounter Summary ---
Author Organization [employer] ([place], [place], [place], [place]) Address [address] [place] [address] Care Team Providers Care Spare Hand Carding Name Role Phone Seferino Ferny Primary Care Provider [phone] Encounter Details Date Type Department Care Team (Late st Contact Info) Description 12/15/2018 Transcribed Document [facility] [place] [address] [place] [address] ProviderArt MD [address] [place] [id number] Social History Tobacco Use Types Packs/Day Years [...] EDT Performed On: 12/15/2018 11:15 EDT by ASFIA BURGOS PTA Discharge Summary Discharge Summary Provider [...] summary and I concur. Leisa Marroquin, PT LESIA MARROQUIN, PT - 12/15/2018 14:44 EDT Electronically signed by Marilou [facility] Conversion Class B Driver Cerner at 08/18/2022 11:11 AM CDT documented in this encounter Plan of Treatment Not on file documented as of this encounter Visit Diagnoses Not on filedocumented in this encounter Care Teams Spare Hand Carding Relationship Specialty Start Date End Date Seferino Ferny [address] [place] [address] PCP - General 05/22/22 documented as of this encounter
--- OUTSIDE RECORDS SUMMARY | 2025-02-20 11:30 | XMS_ITS | Encounter Summary ---
Author Organization [employer] ([place], [place], [place], [place]) Address [address] [place] [address] Care Team Providers Care Industrial Equipment Wirer Name Role Phone Ferny Gentile Primary Care Provider [phone] Encounter Details Date Type Department Care Team (Late st Contact Info) Description 12/14/2018 Transcribed Document [facility] [place] [facility] [place] [address] ProviderArt MD [address] [place] [address] Social History Tobacco Use Types Packs/Day [...] Evaluation and Treatment Ordered By: MATTHEW BANEGAS MD-ORTheo 12/14/2018 10:12 OT Treatment Instructions Ordered [...] LOKI BLANTON OTR/Buck - 12/15/2018 10:58 EDT Fdc Goals, OT Other LTG Grid Goal #1 [...] on filedocumented in this encounter Care Teams Industrial Equipment Wirer Relationship Specialty Start Date End Date Ferny Gentile [address] [place] [address] PCP - General 05/22/22 documented as of this encounter
--- OUTSIDE RECORDS SUMMARY | 2025-02-20 11:30 | XMS_ITS | Encounter Summary ---
Author Organization [employer] ([place], [place], [place], [place]) Address [address] [place] [address] Care Team Providers Care Braille Transcriber Name Role Phone Seferino Ferny Primary Care Provider [phone] Encounter Details Date Type Department Care Team (Late st Contact Info) Description 12/14/2018 Transcribed Document [facility] [place] [facility] [address] ProviderArt MD [address] [place] [address] Social History Tobacco Use Types Packs/Day [...] 12/14/2018 22:53 EDT Electronically signed by Marilou [facility] Conversion National Opelint Analyst Cerner at 08/22/2022 8:25 AM CDT documented in this encounter Plan of Treatment Not on file documented as of this encounter Visit Diagnoses Not on filedocumented in this encounter Care Teams Braille Transcriber Relationship Specialty Start Date End Date Ferny Gentile [address] [place] [address] PCP - General 05/22/22 documented as of this encounter
--- OUTSIDE RECORDS SUMMARY | 2025-02-20 11:31 | XMS_ITS | Encounter Summary ---
Author Organization [employer] ([place], [place], [place], [place]) Address [address] [place] [address] Care Team Providers Care Certified Medical Coding Specialist Name Role Phone Ferny Gentile Primary Care Provider [phone] Encounter Details Date Type Department Care Team (Late st Contact Info) Description 12/14/2018 Transcribed Document [facility] [place] Family Medicine Formerly [facility] [place] [address] ProviderArt MD [address] [place] [address] Social History Tobacco Use Types Packs/Day [...] SKAGGS /Sex: 1940 Female Med Rec #: [id number] Physician: MATTHEW BANEGAS MD-TITO Financial #: [id number] Pt. Type: I Room/Bed: [facility]/ Admit/Disch: 12/14/18 04:48:00 - Institution: [facility]Op Case Attendance Entry 1 Entry 2 Entry 3 Case Attendee MATTHEW BANEGAS LUNSFORD, JAMES, HOLISTIC HEALTH PRACTITIONER GARRETT JARAMILLO, RM MORALEZ-ORT Role Performed Surgeon/Proceduralist, HOLISTIC HEALTH PRACTITIONER/Nurse Underwater Roboticist Physician pediatric assistant First Time In 12/14/18 08:10:00 12/14/18 07:30:00 [...] Carrero, ELENA BRAR, ROB, RAVEN Role Performed Lpn Instructor, First Scrub, Bridge Painter, First Time In 12/14/18 07:30:00 12/14/18 07:30:00 [...] ATTENDEE Ryanne Buchanan Hill, Philip A Rn Greens Or Grounds Superintendent Role Performed Vendor Irrigation Laborer Scrub, First Time In 12/14/18 08:10:00 12/14/18 [...] LEININGER, SUSAN, RN Role Performed Scrub, Second Lpn Instructor, Second Time In 12/14/18 08:15:00 12/14/18 09:20:00 Time Out 12/14/18 09:05:00 12/14/18 09:31:00 Procedure Hip Total Anterior Hip Total Anterior Approach Approach Other Attendee Superficial Wound Closed By: Last Modified By: Tiffany Carrero RN Wellnitz, Sara, RN 12/14/18 09:31:30 12/14/18 09:31:30 [facility] IntraOp Case Attendance Audit 12/14/18 09:31:50 Sales Service Manager: LUIS Modifier: LUIS 3 <+> Role Performed 3 <*> Procedure Hip Total Anterior Approach 12/14/18 09:31:30 Sales Service Manager: LUIS Modifier: LUIS 1 <*> Procedure Hip [...] Procedure Hip Total Anterior Approach 12/14/18 09:21:19 Sales Service Manager: LUIS Modifier: LUIS 4 <+> Time Out 4 <*> Procedure Hip Total Anterior Approach <+> 11 Case Attendee <+> 11 Role Performed <+> 11 Time In <+> 11 Procedure 12/14/18 09:19:23 Sales Service Manager: LUIS Modifier: LUIS 8 <+> Time Out 8 <*> Procedure Hip Total Anterior Approach 12/14/18 09:10:59 Sales Service Manager: LUIS Modifier: WELLNISA 5 <+> Time Out 5 <*> Procedure Hip Total Anterior Approach <+> 10 Case Attendee <+> 10 Role Performed <+> 10 Time In <+> 10 Time Out <+> 10 Procedure 12/14/18 09:04:01 Sales Service Manager: LUIS Modifier: WELLNISA 1 <+> Time Out 1 <*> Procedure Hip Total Anterior Approach 7 <+> Time Out 7 <*> Procedure Hip Total Anterior Approach <+> 9 Case Attendee <+> 9 Role Performed <+> 9 Time In <+> 9 Procedure 12/14/18 08:38:47 Sales Service Manager: REJIA Modifier: WELLNISA 6 <+> Time Out 6 <*> Procedure Hip Total Anterior Approach 12/14/18 08:37:27 Sales Service Manager: LUIS Modifier: WELLMARKOA 3 <*> Time In 12/14/18 07:30:00 3 <*> Procedure Hip Total Anterior Approach 12/14/18 08:11:28 Sales Service Manager: REJIA Modifier: WELLMARKOA 7 <*> Time In 12/14/18 07:30:00 7 <*> Procedure Hip Total Anterior Approach <+> 8 Case Attendee <+> 8 Role Performed <+> 8 Time In <+> 8 Procedure 12/14/18 08:10:47 Sales Service Manager: LUIS Modifier: REJIA 1 <*> Time In 12/14/18 07:30:00 1 <*> Procedure Hip Total Anterior Approach 12/14/18 08:10:28 Sales Service Manager: REJIA Modifier: WELLNISA 1 <+> Time In [...] [facility] IntraOp Case Times Audit 12/14/18 09:31:27 Sales Service Manager: LUIS Modifier: REJIA <+> 1 Out Room Time <+> 1 Stop Time 12/14/18 09:19:35 Sales Service Manager: LUIS Modifier: WELLMARKOA <+> 1 Stop Time 12/14/18 08:10:57 Sales Service Manager: LUIS Modifier: WELLMARKOA <+> 1 Start Time [...] 08:37:55 [facility] IntraOp Cautery Audit 12/14/18 08:37:55 Sales Service Manager: LUIS Modifier: LUIS 1 <*> Cautery Type [...] Skin Condition Unchanged After Cautery 12/14/18 08:10:52 Sales Service Manager: LUIS Modifier: REJIA <+> 2 Cautery Type [...] 08:07:35 [facility] IntraOp Communication Audit 12/14/18 08:13:51 Sales Service Manager: LUIS Modifier: LUIS <+> 1 Date and [...] [facility] IntraOp Counts Verification Audit 12/14/18 09:10:01 Sales Service Manager: LUIS Modifier: LUIS 2 <*> Procedure Hip [...] [facility] IntraOp Counts Final Audit 12/14/18 09:11:14 Sales Service Manager: LUIS Modifier: MEREMARKOA 1 <*> Procedure Hip [...] IntraOp Drains and Tubes Audit 12/14/18 08:10:39 Sales Service Manager: LUIS Modifier: [email or web address] 1 <*> Device Type [...] RN 12/14/18 08:12:06 [facility] IntraOp General Case Industrial Analyst 1 Case Information OR OR 02 [facility] Case Level 1 Room Verified Yes Wound [...] SZ STEM HIP CLLR ORGN CX Identification [id number] Description Implant Quantity 1 1 1 Implant Site LEFT HIP LEFT HIP LEFT HIP Implant Identification Model Number Implant Identification Serial Number Implant [id number] Identification Lot Number Implant Paxeon Reconstruction Paxeon Reconstruction Paxeon Reconstruction Identification Machine Buffer Name: Implant [id number] Identification Catalog Number Implant Size Implant Has an Yes Yes Yes Expiration Date Implant Expiration 08/02/23 10/02/23 09/01/23 Date Wasted Radioactive Material Time Implanted Tissue Implant Continue for Tissue Implant Documentation Tissue Identification Number Graft Prep Per Machine Buffer Instructions: Tissue Preparation Method: Reconstitution Solution: Reconstitution Solution Lot Number Reconstitution Solution Expiration Date: Thawing Solution Thawing Solution Lot Number Thawing Solution Expiration Date Preparation Materials, Other Preparation Materials, Other Lot Number Preparation Materials, Other Expiration Date Tissue Prepared/Processed By Machine Buffer Paperwork Completed Implant Type Comment Last Modified By: Tiffany Carrero, Tiffany Garcia RN Wellnitz, Sara, RN 12/14/18 08:31:02 12/14/18 08:36:29 12/14/18 09:06:08 Entry 4 Type Implant (Synthetic) Implant Log Implant Type Hardware Tissue Implant Type Implant HEAD FEM CERC SZ 36MM Identification [id number] Description Implant Quantity 1 Implant Site LEFT HIP Implant Identification Model Number Implant Identification Serial Number Implant [id number] Identification Lot Number Implant Paxeon Reconstruction Identification Machine Buffer Name: Implant [id number] Identification Catalog Number Implant Size Implant Has an Yes Expiration Date Implant Expiration 06/03/23 Date Wasted Radioactive Material Time Implanted Tissue Implant Continue for Tissue Implant Documentation Tissue Identification Number Graft Prep Per Machine Buffer Instructions: Tissue Preparation Method: Reconstitution Solution: Reconstitution Solution Lot Number Reconstitution Solution Expiration Date: Thawing Solution Thawing Solution Lot Number Thawing Solution Expiration Date Preparation Materials, Other Preparation Materials, Other Lot Number Preparation Materials, Other Expiration Date Tissue Prepared/Processed By Machine Buffer Paperwork Completed Implant Type Comment Last Modified By: Tiffany Carrero RN 12/14/18 09:06:08 [facility] IntraOp Implant Log Audit 12/14/18 09:06:08 Sales Service Manager: LUIS Modifier: WELLNISA <+> 3 Implant Identification Description <+> 3 Implant Identification Lot Number <+> 3 Implant Identification Machine Buffer Name: <+> 3 Implant Expiration Date <+> 3 Implant Identification Catalog Number <+> 4 Implant Identification Description <+> 4 Implant Identification Lot Number <+> 4 Implant Identification Machine Buffer Name: <+> 4 Implant Expiration Date <+> 4 Implant Identification Catalog Number 12/14/18 08:36:29 Sales Service Manager: REJIA Modifier: WELLNISA <+> 2 Implant Identification Description <+> 2 Implant Identification Lot Number <+> 2 Implant Identification Machine Buffer Name: <+> 2 Implant Expiration Date <+> 2 Implant Identification Catalog Number 12/14/18 08:31:02 Sales Service Manager: REJIA Modifier: WELLNISA <+> 1 Implant Identification Description <+> 1 Implant Identification Lot Number <+> 1 Implant Identification Machine Buffer Name: <+> 1 Implant Expiration Date <+> 1 Implant Identification Catalog Number 12/14/18 08:20:19 Sales Service Manager: REJIA Modifier: WELLNISA <+> 4 Implant Has [...] vancomycin 1Gm vial - ANESTHETIC 1000MG/10 ML [id number] COCKTAIL-BANEGAS [id number] Combo Med List Time Administered Route of [...] [facility] IntraOp Time Out Audit 12/14/18 08:17:05 Sales Service Manager: LUIS Modifier: LUIS 1 <*> Time Out Pause Time 12/14/18 08:08:00 1 <*> Procedure to be Performed Hip Total Anterior Approach [facility] IntraOp X-Ray and Images Entry 1 X-Ray/Imaging Type Fluoroscopy Fluoroscopy Type C-Arm Site LEFT HIP Network Pricing Consultant Name Ryanne Buchanan, Greens Or Grounds Superintendent Protective Devices Yes Used Last Modified By: Tiffany Carrero RN 12/14/18 08:17:40 Case Comments <None> Finalized By: Tiffany Carrero, RN Document Signatures Signed By: Tiffany Carrero RN 12/14/18 09:31 Tiffany Carrero RN 12/14/18 11:15 Unfinalized History Date/Time Username Reason for Unfinalizing Freetext Reason for Unfinalizing 12/14/18 11:15 LUIS Correct Documentation documented in this encounter Plan of Treatment Not on file documented as of this encounter Visit Diagnoses Not on filedocumented in this encounter Care Teams Certified Medical Coding Specialist Relationship Specialty Start Date End Date Ferny Gentile [address] [place] [phone] PCP - General 05/22/22 documented as of this encounter
--- OUTSIDE RECORDS SUMMARY | 2025-02-20 11:31 | XMS_ITS | Encounter Summary ---
Author Organization [employer] ([place], [place], [place], [place]) Address [address] [place] [address] Care Team Providers Care Narcotics Detective Name Role Phone SeferinoSakinat Primary Care Provider [phone] Encounter Details Date Type Department Care Team (Late st Contact Info) Description 12/14/2018 Transcribed Document [facility] Family Medicine Formerly [facility] [place] [address] ProviderArt MD [address] [place] [address] Social History Tobacco Use Types Packs/Day [...] 12/14/2018 14:52 EDT by NICHOLE ARIZMENDI, Care Management-Adult Nurse Practitioner Final Discharge Planning Discharge Arrangements : Patient Post-Acute Information Patient Name: UZAIR MADERA Gender: Female : [birth year] Age: 78 Years No Post-Acute Placement(s) Listed No Post-Acute Service(s) Listed No Curaspan Referral(s) Listed Discharge To Care Management : Home Health Services (Related/SOC within 3 days)-06 NICHOLE ARIZMENDI, Care Management-Adult Nurse Practitioner - 12/14/2018 14:52 EDT Final Narrative Note Final Narrative Note : [facility], PT HAS HER OWN MACHINE TO CHEDK HER INR. SHE IS FOLLOWED BY CARDIOLOGY NICHOLE QUINTERO, Care Management-Adult Nurse Practitioner - 12/14/2018 14:52 EDT Electronically signed by Marilou [facility] Conversion Inspector Printed Circuit Boards Cerner at 08/18/2022 11:17 AM CDT documented in this encounter Plan of Treatment Not on file documented as of this encounter Visit Diagnoses Not on filedocumented in this encounter Care Teams Narcotics Detective Relationship Specialty Start Date End Date Ferny Gentile [address] [place] [phone] PCP - General 05/22/22 documented as of this encounter
--- OUTSIDE RECORDS SUMMARY | 2025-02-20 11:31 | XMS_ITS | Encounter Summary ---
Author Organization [employer] ([place], [place], [place], [place]) Address [address] [place] [address] Care Team Providers Care Relationship Banker Name Role Phone SeferinoSakinat Primary Care Provider [phone] Encounter Details Date Type Department Care Team (Late st Contact Info) Description 12/14/2018 Transcribed Document [facility] [place] Family [place] [facility] [place] [address] ProviderArt MD [address] [place] [address] Social History Tobacco Use Types Packs/Day [...] Amos Robertson RN - 12/14/2018 22:52 EDT Electronically signed by Brina Zamarripa Conversion Blade Bender Furnace Tender Cerner at 08/18/2022 11:25 AM CDT documented in this encounter Plan of Treatment Not on file documented as of this encounter Visit Diagnoses Not on filedocumented in this encounter Care Teams Relationship Banker Relationship Specialty Start Date End Date Ferny Gentile [address] [place] [phone] PCP - General 05/22/22 documented as of this encounter
--- OUTSIDE RECORDS SUMMARY | 2025-02-20 11:31 | XMS_ITS | Encounter Summary ---
Author Organization [employer] ([place], [place], [place], [place]) Address [address] [place] [address] Care Team Providers Care Service Cashier Name Role Phone SeferinoSakinat Primary Care Provider [phone] Encounter Details Date Type Department Care Team (Late st Contact Info) Description 12/14/2018 Transcribed Document [facility] [place] Family [place] [address] ProviderArt MD [address] [place] [address] Social History Tobacco Use Types Packs/Day [...] on filedocumented in this encounter Care Teams Service Cashier Relationship Specialty Start Date End Date Ferny Gentile [address] [place] [address] PCP - General 05/22/22 documented as of this encounter
--- OUTSIDE RECORDS SUMMARY | 2025-02-20 11:31 | XMS_ITS | Encounter Summary ---
Author Organization [employer] ([place], [place], [place], [place]) Address [address] [place] [address] Care Team Providers Care Painter Decorator Name Role Phone Douglas Gentileght Primary Care Provider [phone] Encounter Details Date Type Department Care Team (Late st Contact Info) Description 12/14/2018 Transcribed Document [facility] [place] Family Medicine [facility] [place] [address] ProviderArt MD [address] [place] [id number] Social History Tobacco Use Types Packs/Day Years [...] 12/14/2018 14:52 EDT by NICHOLE ARIZMENDI Care Management-Skin Care Consultant Initial Assessment I Previously Documented Living Environment : No qualifying data available. Living Situation : Home Patient Lives With : Alone Emergency Contact #1 : Jesi Emergency Contact #1 Emergency Contact #1 Relationship : daughter Emergency Contact #2 : - Emergency Contact #2 Phone Number : - Emergency Contact #2 Relationship : - NICHOLE ARIZMENDI Care Management-Skin Care Consultant - 12/14/2018 14:52 EDT Initial Assessment II Sensory and Motor Deficits : Other: RADHA Current Home Treatments and Equipment : Bedside commsade, NICHOLE Martinez, Care Management-Skin Care Consultant - 12/14/2018 14:52 EDT Discharge Needs I Anticipated Discharge Date : 12/15/2018 EDT Anticipated Discharge To, CM : Home with home health Current Home Treatment/Equipment : Current Home Treatment/Equipment No qualifying data available. NICHOLE ARIZMENDI Care Management-Skin Care Consultant - 12/14/2018 14:52 EDT Discharge Needs II Professional Skilled Services : Professional Skilled Services No qualifying data available. Services and Community Resources : Home Health Discharge Options Discussed with Patient : Home Health NICHOLE ARIZMENDI Care Management-Skin Care Consultant - 12/14/2018 14:52 EDT documented in this encounter Plan of Treatment Not on file documented as of this encounter Visit Diagnoses Not on filedocumented in this encounter Care Teams Painter Decorator Relationship Specialty Start Date End Date Ferny Gentile [address] [place] [address] PCP - General 05/22/22 documented as of this encounter
--- OUTSIDE RECORDS SUMMARY | 2025-02-20 11:31 | XMS_ITS | Encounter Summary ---
Author Organization [employer] ([place], [place], [place], [place]) Address [address] [place] [address] Care Team Providers Care Cyber Forensics Analyst Name Role Phone Seferino Ferny Primary Care Provider [phone] Encounter Details Date Type Department Care Team (Late st Contact Info) Description 12/14/2018 Transcribed Document [facility] [place] Family Medicine [facility] [place] [address] ProviderArt MD [address] [place] [address] Social History Tobacco Use Types Packs/Day [...] ipratropium 21 mcg/inh (0.03%) nasal spray 2 [place], Nasal, BID kynsol magnesium oxide 400 mg [...] 7.5 mg = 1 Tab, Oral, Daily [place] 7.5/325mg 1-2 tabs PO Q6hrs PRN Dilaudid 2mg Q6hrs PRN (extreme pain only, this is not for management of pain but for rescue only) Tramadol 50mg 1 tab Q 6hrs PRN Lovenox 40mg SubQ daily x 4 doses Colace 100mg 1 tab daily Gabapentin 300mg 1 tab QHS Electronically signed by Marilou, [facility] Conversion Hawk Missile Air Defense Artillery Cerner at 08/18/2022 11:18 AM CDT documented in this encounter Plan of Treatment Not on file documented as of this encounter Visit Diagnoses Not on filedocumented in this encounter Care Teams Cyber Forensics Analyst Relationship Specialty Start Date End Date Ferny Gentile [address] [place] [address] PCP - General 05/22/22 documented as of this encounter
--- OUTSIDE RECORDS SUMMARY | 2025-02-20 11:31 | XMS_ITS | Encounter Summary ---
Author Organization [employer] ([place], [place], [place], [place]) Address [address] [place] [address] Care Team Providers Care Workforce Management Manager Name Role Phone SeferinoSakinat Primary Care Provider [phone] Encounter Details Date Type Department Care Team (Late st Contact Info) Description 12/14/2018 Transcribed Document [facility] [place] Family Medicine [facility] [place] [address] ProviderArt MD [address] [place] [id number] Social History Tobacco Use Types Packs/Day Years [...] Empathic/Engaged listening, Family/Significant other supported Spiritual and Yazdanism : Prayer shared Change, Adjustment and Loss : Provided support for current loss/grief Intervention Comment/Summary Points : Prayer. YUNIER HENDERSON Chaplain-Non Cert - 12/14/2018 8:02 EDT Outcomes Appreciation Expressed : yes Gratitude Expressed : yes Spiritual Care Outcomes Comment : Comforted. YUNIER HENDERSON Chaplain-Non Cert - 12/14/2018 8:02 EDT documented in this encounter Plan of Treatment Not on file documented as of this encounter Visit Diagnoses Not on filedocumented in this encounter Care Teams Workforce Management Manager Relationship Specialty Start Date End Date Ferny Gentile [address] [place] [address] PCP - General 05/22/22 documented as of this encounter
--- OUTSIDE RECORDS SUMMARY | 2025-02-20 11:31 | XMS_ITS | Encounter Summary ---
Author Organization [employer] ([place], [place], [place], [place]) Address [address] [place] [address] Care Team Providers Care Writing Center Director Name Role Phone Ferny Gentile Primary Care Provider [phone] Encounter Details Date Type Department Care Team (Late st Contact Info) Description 12/14/2018 Transcribed Document [facility] [place] Family Medicine [facility] [place] [address] ProviderArt MD [address] [place] [address] Social History Tobacco Use Types Packs/Day [...] Independent Prior LOF Transfer : Independent NIA MARROQUIN, PT - 12/14/2018 11:16 EDT Upper Extremity [...] NIA MARROQUIN, PT - 12/14/2018 11:16 EDT Medical Management Specialist Goals Other PT LTG Grid Goal #1 [...] on filedocumented in this encounter Care Teams Writing Center Director Relationship Specialty Start Date End Date Seferino Ferny [address] [place] [address] PCP - General 05/22/22 documented as of this encounter
--- OUTSIDE RECORDS SUMMARY | 2025-02-20 11:31 | XMS_ITS | Encounter Summary ---
Author Organization [employer] ([place], [place], [place], [place]) Address [address] [place] [address] Care Team Providers Care Dot Compliance Coordinator Name Role Phone Ferny Gentile Primary Care Provider [phone] Encounter Details Date Type Department Care Team (Late st Contact Info) Description 12/14/2018 Transcribed Document [facility] [place] [address] ProviderArt MD [address] [place] [phone] Social History Tobacco Use Types Packs/Day Years [...] Obtained From : Patient Primary Language : St Helen[place] Preferred Communication Mode : Verbal Communication Barrier [...] ability Barcenas Fall Risk Score : 45 BARECNAS Fall Scale Risk Level : 25-45 Medium Risk [place] Fall Interventions : Adequate lighting, Assistive devices [...] Source : Stated Height Entry Format : [place] Height, Feet : 5 ft(Converted to: 152 cm, 60 Inch) Height, Inches : 7 Inch(Converted to: 0 ft 7 Inch, 17.78 cm) Clinical Height : 170.18 cm Weight Source : Standing scale Weight Entry Format : [place] Clinical Dosing Weight : 90.91 kg Weight, Pounds : 200 lb Body Surface Area (BSA) : 2.02 m2 Body Mass Index : 31.4 kg/m2 (HI) [place] Body Weight : 61 kg Amandeep Martinez [...] on filedocumented in this encounter Care Teams Dot Compliance Coordinator Relationship Specialty Start Date End Date Ferny Gentile [address] [place] [phone] PCP - General 05/22/22 documented as of this encounter
--- OUTSIDE RECORDS SUMMARY | 2025-02-20 11:31 | XMS_ITS | Encounter Summary ---
Author Organization [employer] ([place], [place], [place], [place]) Address [address] [place] [address] Care Team Providers Care Stone Planer Name Role Phone Ferny Gentile Primary Care Provider [phone] Encounter Details Date Type Department Care Team (Late st Contact Info) Description 12/14/2018 Transcribed Document [facility] [facility] [place] [address] ProviderArt MD [address] [place] [address] Social History Tobacco Use Types Packs/Day [...] MADERA /Sex: 1940 Female Med Rec #: [id number] Physician: MATTHEW BANEGAS MD-TITO Financial #: [id number] Pt. Type: I Room/Bed: [facility]/ Admit/Disch: 12/14/18 04:48:00 - Institution: [facility] PreOp Case Times Entry 1 In Preop 12/14/18 05:30:00 Ready for Holding n/a Room Patient Ready for 12/14/18 06:49:00 Surgery Patient Out of Preop 12/14/18 07:27:00 Patient Out of n/a Holding Room Last Modified By: SYDNI MCGREGOR 12/14/18 09:40:09 [facility] PreOp Case Times Audit 12/14/18 09:40:09 Conflicts Analyst: ELDERCARA Modifier: [email or web address] <+> 1 Patient Out of Preop 12/14/18 06:49:39 Conflicts Analyst: ETIENNE Modifier: [email or web address] <+> 1 Patient Ready for Surgery Finalized By: SYDNI MCGREGOR Document Signatures Signed By: SYDNI MCGREGOR 12/14/18 09:40 documented in this encounter Plan of Treatment Not on file documented as of this encounter Visit Diagnoses Not on filedocumented in this encounter Care Teams Stone Planer Relationship Specialty Start Date End Date Ferny Gentile [address] [place] [address] PCP - General 05/22/22 documented as of this encounter
--- OUTSIDE RECORDS SUMMARY | 2025-02-20 11:32 | XMS_ITS | Clinical Summary ---
Author Organization [facility] , [facility] Address [address] [place] [address] Phone Care Team Providers Care Insulation Blower Name Role Phone MARIAMA MORALEZ, FATOUMATA E Primary Care Provider [phone] Camila MORALEZ, Alanna Bowen Unavailable [phone] [...] Resolved Date Provider Condition S tatus Joint Pain Wrist Right 04/17/2022 Ceci Santos APRN Active Last Documented On 2 1:05PM ; [facility] Joint Pain Right Thumb 04/17/2022 Ceci griffin APRN Active Last Documented On 2 1:05PM ; [facility] Midback Pain 10/17/2020 Brandon Wilks MD Acti ve Last Documented On 1 2:32PM ; [facility] Joint Pain Left Knee 02/16/2020 Eliseo Cuevas MD Active Last Documented On 0 1:26PM ; [facility] Joint Pain Right Knee 10/29/2016 Alanna castaneda MD Active Last Documented On 7 10:32AM ; [facility] Pain in Lumbar Spine 03/13/2016 Alanna krause MD Active Last Documented On 6 1:07PM ; [facility] Joint Pain Hip Left 03/13/2016 Alanna chin MD Active Last Documented On 6 1:09PM ; [facility] Joint Pain Knee 03/10/2012 Alanna Pereira Active Last Documented On 2 10:37AM ; [facility] Plan of Treatment Fall Risk Assessment: [...] Last Documented On 09/01/2023 8:29AM ; [facility] Overall patient is very pleased with the knee surgery, no complaints today. We will plan for follow up 5 year postop intervals - Last Documented On 09/01/2023 8:29AM ; [facility] Instructions to patient Lose weight Last Documented On 4 3:03PM ; [facility], [facility] Assessments Includes: Assessments from this encounter Findings - Overweight - Last Documented On 09/01/2023 8:29AM ; [facility] 1 year status post left TKA - Last Documented On 09/01/2023 8:29AM ; [facility] Instructions Includes: Instructions from this encounter Instructions to patient Lose weight Last Documented On 4 3:03PM ; [facility] Medical Equipment - Implanted Devices Includes: Current Devices No Medical Equipment Recorded Medications Includes: Medications discussed during this encounter and other current Medications Current Medications (continue as prescribed) Colestipol HCl 5 GM Oral Packet 04/14/2024 Provider: Diagnosis: Last Documented On 4 11:25AM By Carla Hall ; [facility] Protonix 20 MG Oral Tablet Delayed Release 06/16/2022 Provider: Diagnosis: Last Documented On 3 4:00PM By Elif Stephens [facility], [facility] Flecainide Acetate 100 MG Oral Tablet 06/16/2022 Pro vider: Diagnosis: Last Documented On 3 4:01PM By Elif Chicas ; [facility], [facility] Metoprolol Succinate ER 25 M G Oral Tablet Extended Release 24 Hour 06/12/2022 Provider: Diagnosis: Last Documented On 3 4:00PM By Elif Chicas ; [facility], [facility] predniSONE 10 MG Oral Tablet 05/02/2022 Provider: FATOUMATA LESLIE MD Diagnosis: Last Documented On 3 4:00PM By Elif Chicas ; [facility], [facility] Lagevrio 200 MG Oral Capsule 04/22/2022 Provider: FATOUMATA LESLIE MD Diagnosis: Last Documented On 3 4:00PM By Elif Chicas ; [facility], [facility] Lagevrio 200 MG Oral Capsule 04/22/2022 Provider: FATOUMATA LESLIE MD Diagnosis: Last Documented On 3 4:00PM By Elif Chicas ; [facility], [facility] Mupirocin 2% External Ointment 04/16/2022 Provider: Eliseo Cuevas MD Diagnosis: three times a day Apply to n ostrils 3 time a day 5 days prior to surgery. Last Documented On 2 2:50PM By Gilda Kamara ; [facility], [facility] MegaRed [place]-3 Krill Oil 350 MG Oral Capsule 10/26/19 21 Provider: Diagnosis: Last Documented On 1 1:15PM By Betzaida Donald ; [facility], [facility] Sudafed 30 MG Oral Tablet 10/25/2020 Provider: Diagnosis: Last Documented On 1 1:15PM By Betzaida Donald ; [facility], [facility] Mucinex Allergy 180 MG Oral Tablet 10/25/2020 Provid er: Diagnosis: Last Documented On 1 1:14PM By Betzaida Donald ; [facility], [facility] Warfarin Sodium 7.5 MG Oral Tablet 10/17/2020 Provid er: Diagnosis: Last Documented On 1 2:43PM By Greer Kingston ; [facility], [facility] Ezetimibe 10 MG Oral Tablet 09/11/2020 Provider: FATOUMATA LESLIE MD Diagnosis: Last Documented On 1 1:13PM By Betzaida Donald ; [facility], [facility] Digoxin 125 MCG Oral Tablet 07/21/2020 Provider: Diagnosis: Last Documented On 1 2:44PM By Greer Kingston ; [facility], [facility] CoQ-10 10 MG Oral Capsule 10/20/2019 Provider: Diagnosis: Last Documented On 0 4:01PM By Greer Kingston ; [facility], [facility] D3-1000 25 MCG (1000 UT) Oral Capsule 10/20/2019 Pro vider: Diagnosis: Last Documented On 0 4:00PM By Greer Kingston ; [facility], [facility] Omeprazole 20 MG Oral Ta blet Delayed Release Disintegrating 10/20/2019 Provider: Diagnosis: Last Documented On 0 3:59PM By Greer Kingston ; [facility], [facility] Probiotic Maximum Strength Oral Capsule 10/20/2019 Provider: Diagnosis: Last Documented On 0 3:58PM By Greer Kingston ; [facility], [facility] Citalopram Hydrobromide 10 MG Oral Tablet 10/20/2019 Provider: Diagnosis: Last Documented On 0 3:56PM By Greer Kingston ; [facility], [facility] Flecainide Acetate 100 MG Oral Tablet 10/20/2019 Pro vider: Diagnosis: Last Documented On 0 3:55PM By Greer Kingston ; [facility], [facility] Past Medications on file oxyCODONE HCl 5 MG Oral Tablet 05/29/2022 - 06/03/2022 Provider: Eliseo ceja MD Diagnosis: 1-2 po q 4-6h Last Documented On 3 12:32PM By Hima Cuevas ; [facility], [facility] traMADol HCl 50 MG Oral Tablet 05/29/2022 - 06/03/2022 Provider: Eliseo ceja MD Diagnosis: 1-2 po q 4-6h Last Documented On 3 12:32PM By Hima Cuevas ; [facility], [facility] Lovenox 40 MG/0.4ML Injection Solution Prefilled Syringe 05/26/2022 - 05/30/2022 Provider: Eliseo ceja MD Diagnosis: 1 sub q injection 1 time day Last Documented On 3 8:35AM By Hima Cuevas ; [facility] Cefadroxil 500 MG Oral Capsule 05/21/2022 - 05/24/2022 Provider: Eliseo ceja MD Diagnosis: twice a day Last Documented On 3 12:08PM By Hima Cuevas ; [facility] Colace 100 MG Oral Capsule 05/21/2022 - 08/19/2022 Provider: Eliseo ceja MD Diagnosis: 1-2 tabs daily Last Documented On 3 12:08PM By Hima Cuevas ; [facility] traMADol HCl 50 MG Oral Tablet 05/21/2022 - 05/26/2022 Provider: Eliseo ceja MD Diagnosis: 1-2 po q 4-6h Last Documented On 3 12:08PM By Hima Cuevas ; [facility] Acetaminophen 500 MG Oral Tablet 05/21/2022 - 06/20/2022 Provider: Eliseo Cuevas MD Diagnosis: 2 three times a day Last Documented On 3 12:08PM By Hima Cuevas ; [facility] oxyCODONE HCl 5 MG Oral Tablet 05/21/2022 - 05/26/2022 Provider: Eliseo ceja MD Diagnosis: 1-2 po q 4-6h Last Documented On 3 12:08PM By Hima Cuevas ; [facility] Ondansetron HCl 4 MG Oral Tablet 05/21/2022 - 05/26/2022 Provider: Eliseo Cuevas MD Diagnosis: [id number] Last Documented On 3 12:08PM By Hima Cuevas ; [facility] Meloxicam 15 MG Oral Tablet 05/21/2022 - 06/20/2022 Provider: Eliseo ceja MD Diagnosis: once a day Last Documented On 3 12:08PM By Hima Cuevas ; [facility] HYDROcodone-Acetaminophen 7. 5-325 MG Oral Tablet 10/25/2020 - 11/14/2020 Provider: Brandon Wilks MD Diagnosis: twice a day Last Documented On 1 12:08PM By Dr. Wilks ; [facility] [place] 5-325MG Oral Tablet 12/23/2018 - 01/22/2019 Provider: Eliseo ceja MD Diagnosis: 1-2 po q6h prn pain Last Documented On 9 3:09PM By Reanna Gutierrez ; [facility] Acetaminophen 500MG Oral Tablet 12/08/2018 - 01/07/2019 Provider: Eliseo Cuevas MD Diagnosis: 2 three times a day FOR BACON RGERY DO NOT FILL UNTIL 12/14/18 Last Documented On 9 4:10PM By Reanna Gutierrez ; [facility] traMADol HCl 50MG Oral Tablet 12/08/2018 - 12/13/2018 Provider: Eliseo ceja MD Diagnosis: 1-2 po q6h prn pain FOR BACON RGERY DO NOT FILL UNTIL 12/14/18 Last Documented On 9 4:06PM By Reanna Gutierrez ; [facility], [facility] Neurontin 300MG Oral Capsule 12/08/2018 - 03/08/2019 Provider: Eliseo ceja MD Diagnosis: 1 every bedtime FOR SURGER Y DO NOT FILL UNTIL 12/14/18 Last Documented On 9 4:05PM By Reanna Gutierrez ; [facility] Dilaudid 2MG Oral Tablet 12/08/2018 - 12/10/2018 Provi gaby: Eliseo Cuevas MD Diagnosis: 1-2 po q6h prn pain (RESCUE PAIN) FOR SURGERY DO NOT FILL UNTIL 12/14/18 Last Documented On 9 4:05PM By Reanna Gutierrez ; [facility] Colace 100MG Oral Capsule 12/08/2018 - 03/08/2019 Provider: Eliseo ceja MD Diagnosis: 1-2 tabs daily FOR SURGERY DO NOT FILL UNTIL 12/14/18 Last Documented On 9 4:10PM By Reanna Gutierrez ; [facility] Mupirocin 2% External Ointment 11/09/2018 - 11/14/2018 Provider: Eliseo ceja MD Diagnosis: Apply to nostrils 3 time a d ay 5 days prior to surgery. Last Documented On 9 10:40AM By Gilda Kamara ; [facility] [place] 5-325MG Oral Tablet 12/24/2017 - 12/31/2017 Prov ider: Brandon Wilks MD Diagnosis: 1-2 po q 4-6h PRN Last Documented On 8 5:31PM By Dr. Wilks ; [facility] [place] 7.5-325 MG OR TABS 12/24/2017 - 01/03/2018 Provi gaby: Brandon Wilks MD Diagnosis: Last Documented On 8 11:35AM By Marcelle Croft ; [facility] Voltaren Gel 1% External 10/14/2017 - 12/13/2017 Provi gaby: Alanna Jensen MD Diagnosis: use as directed Last Documented On 8 10:09AM By Sayra Evans ; [facility] Lovenox 40MG/0.4ML Subcutaneous Solution 05/06/2017 - 05/26/2017 Provider: Alanna castaneda MD Diagnosis: use as directed/1 INJECTION PER DAY FOR 5 DAYS PRIOR TO PROCEDER & 1 INJECTION PER DAY FOR 5 DAYS AFTER PROCERDER/ Last Documented On 8 4:29PM By Sayra Evans ; [facility] [place] 5-325 MG Tablet 10/29/2016 - 11/05/2016 Provider : Alanna Jensen MD Diagnosis: 1-2 po q 4-6h PRN Last Documented On 7 11:55AM By Camryn Paez ; [facility] Medrol 4 MG Tablet Therapy Pack 02/14/2016 - 02/20/2016 Provider: Alanna chin MD Diagnosis: use as directed by pharmacy Last Documented On 6 3:16PM By Heather Langley ; [facility] [place] 5-325 MG Tablet 12/03/2015 - 12/18/2015 Provider : Alanna Jensen MD Diagnosis: 1-2 po q 4-6h Last Documented On 6 1:26PM By Heather Langley ; [facility] [place] 7.5-325 MG Tablet 11/16/2015 - 12/16/2015 Provid er: Alanna Jensen MD Diagnosis: 1 every 4 - 6 hours PO PRN Last Documented On 6 2:09PM By Lani Marquez ; [facility], [facility] Voltaren 1% TD GEL 01/31/2013 - 03/02/2013 Provider: Alanna Jensen MD Diagnosis: DEGENERATIVE MIKEY NT DISEASE KNEE apply 4 grams to affected ar ea 4 times a day//ks Last Documented On 3 2:16PM By Ann Marie Sutherland ; [facility] Lortab 10-500 MG OR TABS 09/14/2012 - 09/21/2012 Provi gaby: Alanna Jensen MD Diagnosis: [id number] [facility] jsb/df Last Documented On 3 8:56AM By Jose F Gutierrez ; [facility] Lortab 10-500 MG OR TABS 08/06/2012 - 08/13/2012 Provi gaby: Alanna Jensen MD Diagnosis: [id number] [employer] jsb/df Last Documented On 3 1:59PM By Jose F Gutierrez ; [facility] Lortab 10-500 MG OR TABS 07/09/2012 - 07/16/2012 Provi gaby: Alanna Jensen MD Diagnosis: [id number] [employer] jsb Last Documented On 3 12:36PM By Jose F Gutierrez ; [facility] Lortab 10-500 MG OR TABS 07/01/2012 - 07/08/2012 Provi gaby: Alanna Jensen MD Diagnosis: [id number] [facility] df Last Documented On 3 1:53PM By Jose F Gutierrez ; [facility] Xarelto 10 MG OR TABS 06/14/2012 - 07/05/2012 Provider : Alanna Jensen MD Diagnosis: sx on 06-15-/kw Last Documented On 3 1:31PM By Danielle Dobson ; [facility] Lortab 10-500 MG OR TABS 06/14/2012 - 06/21/2012 Provi gaby: Alanna Jensen MD Diagnosis: sx on 06-15-12 Last Documented On 3 1:31PM By Danielle Dobson ; [facility] Medications Administered Includes: Administered Medications from this encounter No Administered Medications Recorded Vital Signs Includes: Vital Signs from this encounter Vital Name 08/18/2023 03:29P Height (in) 65 Weight (lb) 172 Body Mass Index 28.6 Body Surface Area 1.9 Note: tm Last Documented: On 08/18/2023 3:30PM ; [facility], [facility] Results Includes: Results discussed during this encounter No Results Recorded For Specified Dates History of Present Illness Includes: History of Present Illness from this encounter MAYCOL Skaggs is an 83 year old female. - Allergy list reviewed - Problem list reviewed - Medication list reviewed Social History Description Last Updated Tobacco non-user 04/14/2024 Last Documented On 4 3:03PM ; [facility] Alcohol use 10/25/2020 Last Documented On 4 3:03PM ; [facility] Recent change in diet 10/25/2020 Last Documented On 4 3:03PM ; [facility] Non-smoker 10/17/2020 Last Documented On 4 3:03PM ; [facility] Not exercising regularly 10/31/2019 Last Documented On 4 3:03PM ; [facility] Smoking Status Unknown Procedures and Surgical History Includes: Procedures from this encounter Procedures Code Diagnosis Performing Provider Service L ocation Service Date use of tobacco assessment performed 1000F Last Documented On 4 3:03PM ; [facility] patient screened for future fall risk: documentation of any fall with injury in past year 1100F Last Documented On 4 3:03PM ; [facility] review of medications documented 1160F Last Documented On 4 3:30PM ; [facility] follow-up visit in one month Last Documented On 4 3:03PM ; [facility] referral to physician Last Documented On 4 3:03PM ; [facility], [facility] an X-ray was performed 99793 Last Documented On 4 3:03PM ; [facility], [facility] Surgical History Last Updated History of back surgery 11/2019-Kypho T1 2 10/17/2020 Last Documented On 4 3:03PM ; [facility], [facility] History of heart surgery ablation 2017 0 10/31/2019 Last Documented On 4 3:03PM ; [facility], [facility] History of total hip replacement left hi p 2019 10/31/2019 Last Documented On 4 3:03PM ; [facility], [facility] History of total knee arthroplasty right knee 201210/31/2019 Last Documented On 4 3:03PM ; [facility], [facility] History of hysterectomy 10/16/2014 Last Documented On 4 3:03PM ; [facility], [facility] Medical History Includes: Medical History addressed during this encounter Description Last Updated Recent immunization for flu 02/01/2022 1 06/15/2023 Last Documented On 4 3:03PM ; [facility], [facility] Recent immunization for pneumococcal pne umonia 201304/14/2024 Last Documented On 4 3:03PM ; [facility], [facility] History of Irregular Heartbeat A-fib; ep isode after TKA- cadiovert needed 06/16/2022 Last Documented On 4 3:03PM ; [facility], [facility] blood transfusions 10/25/2020 Last Documented On 4 3:03PM ; [facility], [facility] Arthritis 10/25/2020 Last Documented On 4 3:03PM ; [facility], [facility] Heartburn / Acid Reflux 10/25/2020 Last Documented On 4 3:03PM ; [facility], [facility] History of Blood Clots 10/25/2020 Last Documented On 4 3:03PM ; [facility], [facility] History of Blood Transfusion 10/25/2020 Last Documented On 4 3:03PM ; [facility], [facility] History of Cancer 10/25/2020 Last Documented On 4 3:03PM ; [facility], [facility] History of Fractures 10/25/2020 Last Documented On 4 3:03PM ; [facility], [facility] History of heart disease 10/25/2020 Last Documented On 4 3:03PM ; [facility], [facility] Hypertension 10/25/2020 Last Documented On 4 3:03PM ; [facility], [facility] Irregular Heartbeat 10/25/2020 Last Documented On 4 3:03PM ; [facility] Past Surgical History: wrist repair ~hand sx ~gallstone sx 2011 ~mastectomy and reconstruction ~colonoscopy 2018 10/25/2020 Last Documented On 4 3:03PM ; [facility], [facility] Previous Fractures 10/25/2020 Last Documented On 4 3:03PM ; [facility], [facility] Sleep Apnea 10/25/2020 Last Documented On 4 3:03PM ; [facility], [facility] Use of CPAP 10/25/2020 Last Documented On 4 3:03PM ; [facility] Back surgery 12/15/2017 L4-5 Posterior Decompression and Fusion @ [facility] ~11/07/2019 T12 Kyphyoplasty 10/25/2020 Last Documented On 4 3:03PM ; [facility] Heart surgery pacemaker 12/2019 ~Afib ab lation 10/25/2020 Last Documented On 4 3:03PM ; [facility], [facility] History of Gallbladder 10/25/2020 Last Documented On 4 3:03PM ; [facility], [facility] Hysterectomy 10/25/2020 Last Documented On 4 3:03PM ; [facility] Total hip replacement 12/2018-Left hip 0 10/17/2020 Last Documented On 4 3:03PM ; [facility], [facility] A previous fracture 10/31/2019 Last Documented On 4 3:03PM ; [facility] Gallbladder disease 2018 10/31/2019 Last Documented On 4 3:03PM ; [facility] History of diverticulitis of colon 11/15 Last Documented On 4 3:03PM ; [facility] History of osteoporosis 11/16/2015 Last Documented On 4 3:03PM ; [facility] A history of cancer 10/16/2014 Last Documented On 4 3:03PM ; [facility] Arthritic joint problems 10/16/2014 Last Documented On 4 3:03PM ; [facility], [facility] Family History Includes: Family History addressed during this encounter Description Last Updated Family history of cancer mother ~father 11/16/2015 Last Documented On 4 3:03PM ; [facility], [facility] Family history of diabetes mellitus moth er 11/16/2015 Last Documented On 4 3:03PM ; [facility] Family history of heart disease mother ~ father 11/16/2015 Last Documented On 4 3:03PM ; [facility], [facility] Family history of hypertension mother ~f ather 11/16/2015 Last Documented On 4 3:03PM ; [facility] Family history of osteoporosis mother Last Documented On 4 3:03PM ; [facility], [facility] Family history of rheumatoid arthritis m other 11/16/2015 Last Documented On 4 3:03PM ; [facility] Family history of thromboembolic disease mother 11/16/2015 Last Documented On 4 3:03PM ; [facility], [facility] Maternal history of hypertension 015 Last Documented On 4 3:03PM ; [facility], [facility] Maternal history of osteoporosis 015 Last Documented On 4 3:03PM ; [facility], [facility] Review of Systems Includes: Review of [...] ctive Last Documented On 4 12:09PM ; [facility], [facility] Statins Support Allergy 06/09/2017 Act citlalli Last Documented On 4 12:09PM ; [facility], [facility] Percocet Allergy 03/10/2012 Active Last Documented On 4 12:09PM ; [facility], [facility] Bactrim Allergy 11/16/2015 Active Last Documented On 4 12:09PM ; [facility], [facility] Encounters Encounter Provider Location Date Check-In Time Check-Out Time Diagnosis Follow Up Hernan Gold PA-C [facility] 4 3:15PM 3:34PM Overweight Insurance Includes: Active Insurance Policies Plan Name Member ID Group # Subscriber Relationship Effect citlalli Dates 1 - Medicare Part B [facility] [id number] Luz Howard 04/03/2007 - Unknown 2 - [facility] [id number] PLAN F Luz Skaggs Self 2011 - Unknown Clinical Notes Includes: Clinical Notes from this encounter * Progress note Date Encounter Last Documented by 08/18/2023 Follow Up Last documented on 09/01/2023; 8:29 AM, Hernan Gold PA-C; [facility] Active Problems & Conditions - Joint [...] directed 0 days, 0 refills - Ipratropium Mccarley 0.03% Nasal Solution take as directed 0 days, 0 refills - Lagevrio 200 MG Oral Capsule 5 days, 0 refills - Lagevrio 200 MG Oral Capsule 5 days, 0 refills - MegaRed [place]-3 Krill Oil 350 MG Oral Capsule once [...] refills - Sudafed 30 MG Oral Tablet [id number] 0 days, 0 refills - Warfarin Sodium [...] 12/15/2017 L4-5 [place] De[place] [facility] [place] T12 Kyphyoplasty - Total hip replacement [...] Care Team - FATOUMATA LESLIE MD - CLIENT TECHNOLOGIES SPECIALIST
--- OUTSIDE RECORDS SUMMARY | 2025-02-20 11:32 | XMS_ITS | Encounter Summary ---
Author Organization [employer] ([place], [place], [place], [place]) Address [address] [place] [address] Care Team Providers Care Sole Polisher Name Role Phone Ferny Gentile Primary Care Provider [phone] Encounter Details Date Type Department Care Team (Late st Contact Info) Description 12/14/2018 Transcribed Document [facility] [place] [facility] [place] [address] ProviderArt MD [address] [place] [address] Social History Tobacco Use Types Packs/Day [...] LOKI BLANTON OTR/Buck - 12/14/2018 11:16 EDT Nursing Home Goals, OT Other LTG Grid Goal #1 [...] - 12/14/2018 11:16 EDT Electronically signed by [facility] Conversion Plant Sprayer Cerner at 08/18/2022 11:12 AM CDT documented in this encounter Plan of Treatment Not on file documented as of this encounter Visit Diagnoses Not on filedocumented in this encounter Care Teams Sole Polisher Relationship Specialty Start Date End Date Ferny Gentile [address] [place] [address] PCP - General 05/22/22 documented as of this encounter
--- OUTSIDE RECORDS SUMMARY | 2025-02-20 11:32 | XMS_ITS | Encounter Summary ---
Author Organization [employer] ([place], [place], [place], [place]) Address [address] [place] [address] Care Team Providers Care Saw Operator Name Role Phone SeferinoSakinat Primary Care Provider [phone] Encounter Details Date Type Department Care Team (Late st Contact Info) Description 12/14/2018 Transcribed Document [facility] [place] [facility] [place] [address] ProviderArt MD [address] [place] [address] Social History Tobacco Use Types Packs/Day [...] Place : Fall prevention measures SAFIA BURGOS [facility] - 12/15/2018 12:46 EDT General Status Patient [...] Treatment Time : 44 Minute(s) SAFIA BURGOS [facility] - 12/15/2018 12:46 EDT Edu Topics Physical Therapy Education Grid Gait Training : Verbalizes understanding, Returns demonstration Stair Training : Verbalizes understanding, Returns demonstration Therapeutic Exercises : Returns demonstration, Verbalizes understanding SAFIA BURGOS PTA - 12/15/2018 12:46 EDT Plan of Care, PT PT Tx Plan/Goals Established w Patient : Yes SAFIA BURGOS [facility] - 12/15/2018 12:46 EDT Biblical Studies Professor Goals Other PT LTG Grid Goal #1 [...] EDT 12/15/2018 EDT 12/15/2018 EDT SAFIA BURGOS, BUSINESS ASST - 12/15/2018 12:46 EDT SAFIA BURGOSBARBIE - 12/15/2018 12:46 EDT SAFIA BURGOS, BUSINESS ASST - 12/15/2018 12:46 EDT SAFIA BURGOS, BUSINESS ASST - 12/15/2018 12:46 EDT Treatment Note Subjective [...] the text rendition version of the form. [place] PT Charges PT Therap. Exercise 15 min : 2 Gait Training Each 15 Min : 1 SAFIA BURGOSBARBIE - 12/15/2018 12:46 EDT Electronically signed by Brina Zamarripa Conversion International Marketing Coordinator Cerner at 08/22/2022 8:25 AM CDT documented in this encounter Plan of Treatment Not on file documented as of this encounter Visit Diagnoses Not on filedocumented in this encounter Care Teams Saw Operator Relationship Specialty Start Date End Date Ferny Gentile [address] [place] [address] PCP - General 05/22/22 documented as of this encounter
--- OUTSIDE RECORDS SUMMARY | 2025-02-20 11:32 | XMS_ITS | Encounter Summary ---
Author Organization [employer] ([place], [place], [place], [place]) Address [address] [place] [address] Care Team Providers Care Banking Teacher Name Role Phone Seferino Ferny Primary Care Provider [phone] Encounter Details Date Type Department Care Team (Late st Contact Info) Description 12/02/2018 Transcribed Document [facility] [place] [facility] [place] [address] ProviderArt MD [address] [place] [address] Social History Tobacco Use Types Packs/Day [...] Source : Stated Height Entry Format : [place] Height, Feet : 5 ft(Converted to: 152 cm, 60 Inch) Height, Inches : 7 Inch(Converted to: 0 ft 7 Inch, 17.78 cm) Clinical Height : 170.18 cm Weight Source : Standing scale Weight Entry Format : [place]iebach Clinical Dosing Weight : 90.91 kg Weight, Pounds : 200 lb Body Surface Area (BSA) : 2.02 m2 Body Mass Index : 31.4 kg/m2 (HI) [place] Body Weight : 61 kg CINDY DAVID [...] #2 Relationship : - Primary Language : Moldovan Communication Barrier : None CINDY DAVID RN [...] CINDY DAVID RN - 12/02/2018 11:37 EDT documented in this encounter Plan of Treatment Not on file documented as of this encounter Visit Diagnoses Not on filedocumented in this encounter Care Teams Banking Teacher Relationship Specialty Start Date End Date Ferny Gentile [address] [place] [phone] PCP - General 05/22/22 documented as of this encounter
--- OUTSIDE RECORDS SUMMARY | 2025-02-20 11:32 | XMS_ITS | Encounter Summary ---
Author Organization [employer] ([place], [place], [place], [place]) Address [address] [place] [address] Care Team Providers Care Pipe Cleaning Machine Operator Name Role Phone Douglas Gentileght Primary Care Provider [phone] Encounter Details Date Type Department Care Team (Late st Contact Info) Description 12/14/2018 Transcribed Document [facility] [place] [facility] [place] [address] ProviderArt MD [address] [place] [address] Social History Tobacco Use Types Packs/Day [...] Barley. Bulgur wheat. Millet. Bran muffins. Popcorn. Cullen wafer crackers. Vegetables Sweet potatoes. Spinach. Kale. Artichokes. Cabbage. Broccoli. Green peas. Carrots. Squash. Fruits Berries. Pears. Apples. Oranges. Avocados. Prunes and raisins. Dried figs. Meats and Other Protein Sources [place], kidney, shrestha, and soy beans. Split peas. [...] zuri has 11 g of protein. ?? [place] seeds - 1 oz has 5.5 g [...] floor. ?? Place frequently used items in xvke-rc-yjzic places ?? Keep electrical cables out of [...] ?? Using the bathroom. ?? Using household tombstone erector or toxic chemicals. ?? Touching or taking [...] leg. Electronically signed by Brina Zamarripa Conversion Public Health Service Officer Cerner at 08/18/2022 11:11 AM CDT documented in this encounter Plan of Treatment Not on file documented as of this encounter Visit Diagnoses Not on filedocumented in this encounter Care Teams Pipe Cleaning Machine Operator Relationship Specialty Start Date End Date Ferny Gentile [address] [place] [phone] PCP - General 05/22/22 documented as of this encounter
--- OUTSIDE RECORDS SUMMARY | 2025-02-20 11:32 | XMS_ITS | Clinical Summary ---
Author Organization [facility] Address [address] [place] [address] Care Team Providers Care Telegraph Repeater Technician Name Role Phone Ferny Gentile MD Primary Care Provider [phone] Family History Medical History Relation Name Comments [...] of Treatment Not on file Care Teams Telegraph Repeater Technician Relationship Specialty Start Date End Date Ferny Gentile MD [address] [facility] [address] [place] [address] PCP - General 09/14/20
--- OUTSIDE RECORDS SUMMARY | 2025-02-20 11:32 | XMS_ITS | Clinical Summary ---
Author Organization [employer] ([place], [place], [place], [place]) Address [address] [place] [address] Care Team Providers Care Reporting Process Consultant Name Role Phone Sakina Gentilet Primary Care Provider [phone] Allergies Active Allergy Reactions Criticality Noted Date [...] oxide 400 mg magnesium Tab daily. Active pv-[id number]- [id number] 27 0.5-30-60-90 mg Cap daily. Active cholecalcifero [...] Date Alfredo rded Speak language other than Bahamian at home Not on file 05/22/2023 Want [...] Cessation Counseling and Screening (12+) 05/26/2023 05/26/2022 Falls Risk Screening 2024 COVID-19 VACCINE (2024-2 6 season) 2025 03/05/2022, 03/13/2021, 06/11/2020, Additional history exists Influenza Vaccine (#1) 2025 01/29/2021 Medical Devices Implanted Type Area Licensed Psychologist Director Device Identifier Shelf Expiration Date Model / Serial / Lot Cement Bone Clyde Hv 40/20 600-15-000 - [id number] Implanted:Qty : 2 on 05/26/2022 by Eliseo Cuevas MD at [facility] IMPLANTS Left: Knee DJ SURG:ENCORE MED:BRIANTANOOGA 05/30/2023 600-15-00 0 / / [id number] Ty Tib I-Beam Fix Biomet 75mm [id number] - [id number] Implanted:Qty : 1 on 05/26/2022 by Eliseo Cuevas MD at [facility] TOTAL JOINT CONSTRUCT Left: Knee BIOMET 03/26/2032 [id number] / / [id number] Patella Std 8x31mm 132429 - [id number] Implanted:Qty : 1 on 05/26/2022 by Eliseo Cuevas MD at [facility] TOTAL JOINT [employer] Left: Knee BIOMET 03/12/2027 [id number] / / [id number] Comp Fem Ps Vangrd 65mm [id number] - [id number] Implanted:Qty : 1 on 05/26/2022 by Eliseo Cuevas MD at [facility] TOTAL JOINT [employer] Left: Knee BIOMET 10/13/2029 [id number] / / [id number] Insrt Tib Bear Ps 10x71/75 [id number] - [id number] Implanted:Qty : 1 on 05/26/2022 by Eliseo Cuevas MD at [facility] TOTAL JOINT CONSTRUCT Left: Knee BIOMET 11/07/2025 [id number] / / [id number] Insurance MEDICARE PART A B Advance Directives For more information, please contact: [phone] * Full Code (Latest Code Status on File) Date Activated Date Inactivated Comments 05/26/2022 3:06 PM 05/29/2022 8:04 PM * Full Code Date Activated Date Inactivated Comments 05/26/2022 8:57 AM 05/26/2022 3:06 PM Care Teams Reporting Process Consultant Relationship Specialty Start Date End Date Ferny Gentile [address] [place] [address] PCP - General 05/22/22
--- OUTSIDE RECORDS SUMMARY | 2025-02-20 11:33 | XMS_ITS | Clinical Summary ---
Author Organization [facility] Address [address] [place] [address] Phone Care Team Providers [facility] Manager Name Role Phone MARIAMA MORALEZ, FATOUMATA E Primary Care Provider [phone] Camila MOARLEZ, Alanna Bowen Unavailable [phone] [...] Active Last Documented On 2 1:05PM ; [facility] Joint Pain Right Thumb 04/17/2022 Ceci griffin APRN Active Last Documented On 2 1:05PM ; [facility] Midback Pain 10/17/2020 Brandon Wilks MD Acti ve Last Documented On 1 2:32PM ; [facility] Joint Pain Left Knee 02/16/2020 Eliseo Cuevas MD Active Last Documented On 0 1:26PM ; [facility] Joint Pain Right Knee 10/29/2016 Alanna castaneda MD Active Last Documented On 7 10:32AM ; [facility] Pain in Lumbar Spine 03/13/2016 Alanna krause MD Active Last Documented On 6 1:07PM ; [facility] Joint Pain Hip Left 03/13/2016 Alanna chin MD Active Last Documented On 6 1:09PM ; [facility] Joint Pain Knee 03/10/2012 Alanna Pereira Active Last Documented On 2 10:37AM ; [facility] Plan of Treatment Fall Risk Assessment: This [...] - Last Documented On 07/07/2022 1:06PM ; [facility] overall the patient is very pleased with her knee surgery, she has some bilateral lower extremity edema that she reports as being lymphedema diagnosis in the past. Happy to give PT prescription today to help with lymphedema modalities. We will plan for follow-up 4-6 weeks for 3 month interval exam - Last Documented On 07/07/2022 1:06PM ; [facility] Pending Tests Order Diagnosis Results Due Ordering P rovider Therapy - Physical Therapy Knee 07/07/22 Hernan Gold PA-C Last Documented On 3 11:47AM ; [facility] Instructions to patient Lose weight Last Documented On 3 11:07AM ; [facility] Assessments Includes: Assessments from this encounter Findings seven-week status post left TKA - Last Documented On 07/07/2022 1:06PM ; [facility] Instructions Includes: Instructions from this encounter Instructions to patient Lose weight Last Documented On 3 11:07AM ; [facility] Medical Equipment - Implanted Devices Includes: Current Devices No Medical Equipment Recorded Medications Includes: Medications discussed during this encounter and other current Medications Current Medications (continue as prescribed) Colestipol HCl 5 GM Oral Packet 04/14/2024 Provider: Diagnosis: Last Documented On 4 11:25AM By Carla Hall ; [facility] Protonix 20 MG Oral Tablet Delayed Release 06/16/2022 Provider: Diagnosis: Last Documented On 3 4:00PM By Elif Chicas ; [facility] Flecainide Acetate 100 MG Oral Tablet 06/16/2022 Pro vider: Diagnosis: Last Documented On 3 4:01PM By Elif Chicas ; [facility] Metoprolol Succinate ER 25 M G Oral Tablet Extended Release 24 Hour 06/12/2022 Provider: Diagnosis: Last Documented On 3 4:00PM By Elif Chicas ; [facility] predniSONE 10 MG Oral Tablet 05/02/2022 Provider: FATOUMATA LESLIE MD Diagnosis: Last Documented On 3 4:00PM By Elif Chicas ; [facility] Lagevrio 200 MG Oral Capsule 04/22/2022 Provider: FATOUMATA LESLIE MD Diagnosis: Last Documented On 3 4:00PM By Elif Chicas ; [facility] Lagevrio 200 MG Oral Capsule 04/22/2022 Provider: FATOUMATA LESLIE MD Diagnosis: Last Documented On 3 4:00PM By Elif Chicas ; [facility] Mupirocin 2% External Ointment 04/16/2022 Provider: Eliseo Cuevas MD Diagnosis: three times a day Apply to n ostrils 3 time a day 5 days prior to surgery. Last Documented On 2 2:50PM By Gilda Kamara ; [facility] MegaRed Worley-3 Krill Oil 350 MG Oral Capsule 10/26/19 21 Provider: Diagnosis: Last Documented On 1 1:15PM By Betzaida Donald ; [facility] Sudafed 30 MG Oral Tablet 10/25/2020 Provider: Diagnosis: Last Documented On 1 1:15PM By Betzaida Donald ; [facility] Mucinex Allergy 180 MG Oral Tablet 10/25/2020 Provid er: Diagnosis: Last Documented On 1 1:14PM By Betzaida Donald ; [facility] Warfarin Sodium 7.5 MG Oral Tablet 10/17/2020 Provid er: Diagnosis: Last Documented On 1 2:43PM By Greer Kingston ; [facility] Ezetimibe 10 MG Oral Tablet 09/11/2020 Provider: FATOUMATA LESLIE MD Diagnosis: Last Documented On 1 1:13PM By Betzaida Donald ; [facility] Digoxin 125 MCG Oral Tablet 07/21/2020 Provider: Diagnosis: Last Documented On 1 2:44PM By Greer Kingston ; [facility] CoQ-10 10 MG Oral Capsule 10/20/2019 Provider: Diagnosis: Last Documented On 0 4:01PM By Greer Kingston ; [facility] D3-1000 25 MCG (1000 UT) Oral Capsule 10/20/2019 Pro vider: Diagnosis: Last Documented On 0 4:00PM By Greer Kingston ; [facility] Omeprazole 20 MG Oral Ta blet Delayed Release Disintegrating 10/20/2019 Provider: Diagnosis: Last Documented On 0 3:59PM By Greer Kingston ; [facility] Probiotic Maximum Strength Oral Capsule 10/20/2019 Provider: Diagnosis: Last Documented On 0 3:58PM By Greer Kingston ; [facility] Citalopram Hydrobromide 10 MG Oral Tablet 10/20/2019 Provider: Diagnosis: Last Documented On 0 3:56PM By Greer Kingston ; [facility] Flecainide Acetate 100 MG Oral Tablet 10/20/2019 Pro vider: Diagnosis: Last Documented On 0 3:55PM By Greer Kingston ; [facility] Past Medications on file oxyCODONE HCl 5 MG Oral Tablet 05/29/2022 - 06/03/2022 Provider: Eliseo ceja MD Diagnosis: 1-2 po q 4-6h Last Documented On 3 12:32PM By Hima Cuevas ; [facility] traMADol HCl 50 MG Oral Tablet 05/29/2022 - 06/03/2022 Provider: Eliseo ceja MD Diagnosis: 1-2 po q 4-6h Last Documented On 3 12:32PM By Hima Cuevas ; [facility] Lovenox 40 MG/0.4ML Injection Solution Prefilled Syringe 05/26/2022 - 05/30/2022 Provider: Eliseo ceja MD Diagnosis: 1 sub q injection 1 time day Last Documented On 3 8:35AM By Hima Cuevas ; [facility] Cefadroxil 500 MG Oral Capsule 05/21/2022 - 05/24/2022 Provider: Eliseo ceja MD Diagnosis: twice a day Last Documented On 3 12:08PM By Hima Cuevas ; [facility] Colace 100 MG Oral Capsule 05/21/2022 - 08/19/2022 Provider: Eliseo ceja MD Diagnosis: 1-2 tabs daily Last Documented On 3 12:08PM By Hima Cuevas ; [facility] traMADol HCl 50 MG Oral Tablet 05/21/2022 - 05/26/2022 Provider: Eliseo ceja MD Diagnosis: 1-2 po q 4-6h Last Documented On 3 12:08PM By Hima Cuevas ; [facility] Acetaminophen 500 MG Oral Tablet 05/21/2022 - 06/20/2022 Provider: Eliseo Cuevas MD Diagnosis: 2 three times a day Last Documented On 3 12:08PM By Hima Cuevas ; [facility] oxyCODONE HCl 5 MG Oral Tablet 05/21/2022 - 05/26/2022 Provider: Eliseo ceja MD Diagnosis: 1-2 po q 4-6h Last Documented On 3 12:08PM By Hima Cuevas ; [facility] Ondansetron HCl 4 MG Oral Tablet 05/21/2022 - 05/26/2022 Provider: Eliseo Cuevas MD Diagnosis: [id number] Last Documented On 3 12:08PM By Hima Cuevas ; [facility] Meloxicam 15 MG Oral Tablet 05/21/2022 - 06/20/2022 Provider: Eliseo ceja MD Diagnosis: once a day Last Documented On 3 12:08PM By Hima Cuevas ; [facility] HYDROcodone-Acetaminophen 7. 5-325 MG Oral Tablet 10/25/2020 - 11/14/2020 Provider: Brandon Wilks MD Diagnosis: twice a day Last Documented On 1 12:08PM By Dr. Wilks ; [facility] Margie 5-325MG Oral Tablet 12/23/2018 - 01/22/2019 Provider: Eliseo ceja MD Diagnosis: 1-2 po q6h prn pain Last Documented On 9 3:09PM By Reanna Gutierrez ; [facility] Acetaminophen 500MG Oral Tablet 12/08/2018 - 01/07/2019 Provider: Eliseo Cuevas MD Diagnosis: 2 three times a day FOR BACON RGERY DO NOT FILL UNTIL 12/14/18 Last Documented On 9 4:10PM By Reanna Gutierrez ; [facility] traMADol HCl 50MG Oral Tablet 12/08/2018 - 12/13/2018 Provider: Eliseo ceja MD Diagnosis: 1-2 po q6h prn pain FOR BACON RGERY DO NOT FILL UNTIL 12/14/18 Last Documented On 9 4:06PM By Reanna Gutierrez ; [facility] Neurontin 300MG Oral Capsule 12/08/2018 - 03/08/2019 Provider: Eliseo ceja MD Diagnosis: 1 every bedtime FOR SURGER Y DO NOT FILL UNTIL 12/14/18 Last Documented On 9 4:05PM By Reanna Gutierrez ; [facility] Dilaudid 2MG Oral Tablet 12/08/2018 - 12/10/2018 Provi gaby: Eliseo Cuevas MD Diagnosis: 1-2 po q6h prn pain (RESCUE PAIN) FOR SURGERY DO NOT FILL UNTIL 12/14/18 Last Documented On 9 4:05PM By Reanna Gutierrez ; [facility] Colace 100MG Oral Capsule 12/08/2018 - 03/08/2019 Provider: Eliseo ceja MD Diagnosis: 1-2 tabs daily FOR SURGERY DO NOT FILL UNTIL 12/14/18 Last Documented On 9 4:10PM By Reanna Gutierrez ; [facility] Mupirocin 2% External Ointment 11/09/2018 - 11/14/2018 Provider: Eliseo ceja MD Diagnosis: Apply to nostrils 3 time a d ay 5 days prior to surgery. Last Documented On 9 10:40AM By Gilda Kamara ; [facility] Margie 5-325MG Oral Tablet 12/24/2017 - 12/31/2017 Prov ider: Brandon iWlks MD Diagnosis: 1-2 po q 4-6h PRN Last Documented On 8 5:31PM By Dr. Wilks ; [facility] Margie 7.5-325 MG OR TABS 12/24/2017 - 01/03/2018 Provi gaby: Brandon Wilks MD Diagnosis: Last Documented On 8 11:35AM By aMrcelle Croft ; [facility] Voltaren Gel 1% External 10/14/2017 - 12/13/2017 Provi gaby: Alanna Jensen MD Diagnosis: use as directed Last Documented On 8 10:09AM By Sayra Evans ; [facility] Lovenox 40MG/0.4ML Subcutaneous Solution 05/06/2017 - 05/26/2017 Provider: Alanna castaneda MD Diagnosis: use as directed/1 INJECTION PER DAY FOR 5 DAYS PRIOR TO PROCEDER & 1 INJECTION PER DAY FOR 5 DAYS AFTER PROCERDER/ Last Documented On 8 4:29PM By Sayra Evans ; [facility] Margie 5-325 MG Tablet 10/29/2016 - 11/05/2016 Provider : Alanna Jensen MD Diagnosis: 1-2 po q 4-6h PRN Last Documented On 7 11:55AM By Camryn Paez ; [facility] Medrol 4 MG Tablet Therapy Pack 02/14/2016 - 02/20/2016 Provider: Alanna chin MD Diagnosis: use as directed by pharmacy Last Documented On 6 3:16PM By Heather Langley ; [facility] Margie 5-325 MG Tablet 12/03/2015 - 12/18/2015 Provider : Alanna Jensen MD Diagnosis: 1-2 po q 4-6h Last Documented On 6 1:26PM By Heather Langley ; [facility] Margie 7.5-325 MG Tablet 11/16/2015 - 12/16/2015 Provid er: Alanna Jensen MD Diagnosis: 1 every 4 - 6 hours PO PRN Last Documented On 6 2:09PM By Lani Marquez ; [facility] Voltaren 1% TD GEL 01/31/2013 - 03/02/2013 Provider: Alanna Jensen MD Diagnosis: DEGENERATIVE MIKEY NT DISEASE KNEE apply 4 grams to affected ar ea 4 times a day//ks Last Documented On 3 2:16PM By Ann Marie Sutherland ; [facility] Lortab 10-500 MG OR TABS 09/14/2012 - 09/21/2012 Provi gaby: Alanna Jensen MD Diagnosis: [id number] [facility] jsb/df Last Documented On 3 8:56AM By Jose F Gutierrez ; [facility] Lortab 10-500 MG OR TABS 08/06/2012 - 08/13/2012 Provi gaby: Alanna Jensen MD Diagnosis: [id number] [facility] jsb/df Last Documented On 3 1:59PM By Jose F Gutierrez ; [facility] Lortab 10-500 MG OR TABS 07/09/2012 - 07/16/2012 Provi gaby: Alanna Jensen MD Diagnosis: [id number] [facility] jsb Last Documented On 3 12:36PM By Jose F Gutierrez ; [facility] Lortab 10-500 MG OR TABS 07/01/2012 - 07/08/2012 Provi gaby: Alanna Jensen MD Diagnosis: [phone] [facility] df Last Documented On 3 1:53PM By Jose F Gutierrez ; [facility] Xarelto 10 MG OR TABS 06/14/2012 - 07/05/2012 Provider : Alanna Jensen MD Diagnosis: sx on 06-15-12kw Last Documented On 3 1:31PM By Danielle Dobson ; [facility] Lortab 10-500 MG OR TABS [...] Last Documented: On 07/07/2022 11:18A M ; [facility] Results Includes: Results discussed during [...] On 3 11:07AM ; [facility] Tobacco non-user 04/14/2024 [...] On 3 11:07AM ; [facility] No caffeine use 10/17/2020 Last Documented On 3 11:07AM ; [facility] Not a current smoker. 10/17/2020 Last Documented On 3 11:07AM ; [facility] No tobacco use 10/31/2019 Last Documented On 3 11:07AM ; [facility] Not a current smoker 10/31/2019 Last Documented On 3 11:07AM ; [facility] Not exercising regularly 10/31/2019 Last Documented On 3 11:07AM ; [facility] Smoking status : Never smoker 10/31/2019 Last Documented On 3 11:07AM ; [facility] Procedures and Surgical History Includes: Procedures from this encounter Procedures Code Diagnosis Performing Provider Service L ocation Service Date use of tobacco assessment performed 1000F Last Documented On 3 11:07AM ; [facility] patient screened for future fall risk: documentation of any fall with injury in past year 1100F Last Documented On 3 11:07AM ; [facility] follow-up visit in one month Last Documented On 3 11:07AM ; [facility] referral to physician Last Documented On 3 11:07AM ; [facility] an X-ray was performed [id number] Last Documented On 3 11:07AM ; [facility] Surgical History Last Updated History of back surgery 11/2019-Kypho T1 2 10/17/2020 Last Documented On 3 11:07AM ; [facility] History of heart surgery ablation 2017 0 10/31/2019 Last Documented On 3 11:07AM ; [facility] History of total hip replacement left hi p 201810/31/2019 Last Documented On 3 11:07AM ; [facility] History of total knee arthroplasty right knee 201210/31/2019 Last Documented On 3 11:07AM ; [facility] History of hysterectomy 10/16/2014 Last Documented On 3 11:07AM ; [facility] Medical History Includes: Medical History addressed during this encounter Description Last Updated Recent immunization for flu 02/01/2022 1 06/15/2023 Last Documented On 3 11:07AM ; [facility] Recent immunization for pneumococcal pne umonia 2014 04/14/2024 Last Documented On 3 11:07AM ; [facility] History of Irregular Heartbeat A-fib; ep isode after TKA- cadiovert needed 06/16/2022 Last Documented On 3 11:07AM ; [facility] blood transfusions 10/25/2020 Last Documented On 3 11:07AM ; [facility] Arthritis 10/25/2020 Last Documented On 3 11:07AM ; [facility] Heartburn / Acid Reflux 10/25/2020 Last Documented On 3 11:07AM ; [facility] History of Blood Clots 10/25/2020 Last Documented On 3 11:07AM ; [facility] History of Blood Transfusion 10/25/2020 Last Documented On 3 11:07AM ; [facility] History of Cancer 10/25/2020 Last Documented On 3 11:07AM ; [facility] History of Fractures 10/25/2020 Last Documented On 3 11:07AM ; [facility] History of heart disease 10/25/2020 Last Documented On 3 11:07AM ; [facility] Hypertension 10/25/2020 Last Documented On 3 11:07AM ; [facility] Irregular Heartbeat 10/25/2020 Last Documented On 3 11:07AM ; [facility] Past Surgical History: wrist repair ~hand sx ~gallstone sx 2011 ~mastectomy and reconstruction ~colonoscopy 2018 10/25/2020 Last Documented On 3 11:07AM ; [facility] Previous Fractures 10/25/2020 Last Documented On 3 11:07AM ; [facility] Sleep Apnea 10/25/2020 Last Documented On 3 11:07AM ; [facility] Use of CPAP 10/25/2020 Last Documented On 3 11:07AM ; [facility] Back surgery 12/15/2017 L4-5 Posterior Decompression and Fusion @ [facility] ~11/07/2019 T12 Kyphyoplasty 10/25/2020 Last Documented On 3 11:07AM ; [facility] Heart surgery pacemaker 12/2019 ~Afib ab lation 10/25/2020 Last Documented On 3 11:07AM ; [facility] History of Gallbladder 10/25/2020 Last Documented On 3 11:07AM ; [facility] Hysterectomy 10/25/2020 Last Documented On 3 11:07AM ; [facility] Total hip replacement 12/2018-Left hip 0 10/17/2020 Last Documented On 3 11:07AM ; [facility] A previous fracture 10/31/2019 Last Documented On 3 11:07AM ; [facility] Gallbladder disease 2018 10/31/2019 Last Documented On 3 11:07AM ; [facility] History of diverticulitis of colon 11/15 Last Documented On 3 11:07AM ; [facility] History of osteoporosis 11/16/2015 Last Documented On 3 11:07AM ; [facility] A history of cancer 10/16/2014 Last Documented On 3 11:07AM ; [facility] Arthritic joint problems 10/16/2014 Last Documented On 3 11:07AM ; [facility] Family History Includes: Family History addressed during this encounter Description Last Updated Family history of cancer mother ~father 11/16/2015 Last Documented On 3 11:07AM ; [facility] Family history of diabetes mellitus moth er 11/16/2015 Last Documented On 3 11:07AM ; [facility] Family history of heart disease mother ~ father 11/16/2015 Last Documented On 3 11:07AM ; [facility] Family history of hypertension mother ~f ather 11/16/2015 Last Documented On 3 11:07AM ; [facility] Family history of osteoporosis mother Last Documented On 3 11:07AM ; [facility] Family history of rheumatoid arthritis m other 11/16/2015 Last Documented On 3 11:07AM ; [facility] Family history of thromboembolic disease mother 11/16/2015 Last Documented On 3 11:07AM ; [facility] Maternal history of hypertension 015 Last Documented On 3 11:07AM ; [facility] Maternal history of osteoporosis 015 Last Documented On 3 11:07AM ; [facility] Review of Systems Includes: Review of Systems [...] Last Documented On 4 12:09PM ; [facility] Statins Support Allergy 06/09/2017 Act citlalli Last Documented On 4 12:09PM ; [facility] Percocet Allergy 03/10/2012 Active Last Documented On 4 12:09PM ; [facility] Bactrim Allergy 11/16/2015 Active Last Documented On 4 12:09PM ; [facility] Encounters Encounter Provider Location Date Check-In Time Check- Out Time Diagnosis Post Op Hernan Gold PA-C [facility] 3 11:12AM 11:46AM Insurance Includes: Active Insurance Policies Plan Name Member ID Group # Subscriber Relationship Effect citlalli Dates 1 - Medicare Part B [facility] [id number] Luz Skaggs Self 04/03/2007 - Unknown 2 - [facility] [id number] PLAN F Luz Skaggs Self 2011 - Unknown Clinical Notes Includes: Clinical Notes from this encounter * Progress note Date Encounter Last Documented by 07/07/2022 Post Op Last documented on 07/07/2022; 1:06 PM, Hernan Gold PA-C; [facility] Active Problems & Conditions - [...] directed 0 days, 0 refills - Ipratropium [place] 0.03% Nasal Solution take as directed 0 days, 0 refills - Lagevrio 200 MG Oral Capsule 5 days, 0 refills - Lagevrio 200 MG Oral Capsule 5 days, 0 refills - MegaRed Worley-3 Krill Oil 350 MG Oral Capsule once [...] refills - Sudafed 30 MG Oral Tablet [id number] 0 days, 0 refills - Warfarin Sodium [...] Team - FATOUMATA LESLIE MD - SENIOR NET SOFTWARE ENGINEER
--- OUTSIDE RECORDS SUMMARY | 2025-02-20 11:33 | XMS_ITS | Encounter Summary ---
Author Organization [employer] ([place], [place], [place], [place]) Address [address] [place] [address] Care Team Providers Care Head Waitress Name Role Phone Ferny Gentile Primary Care Provider [phone] Encounter Details Date Type Department Care Team (Late st Contact Info) Description 12/02/2018 Transcribed Document [facility] Family Medicine Formerly [facility] [place] [address] ProviderArt MD [address] [place] [id number] Social History Tobacco Use Types Packs/Day [...] ipratropium 21 mcg/inh (0.03%) nasal spray 2 [place], Nasal, BID kynsol magnesium oxide 400 mg [...] Lymph # 1.40 K/uL 12/02/2018 12:03 EDT [place] % 17.1 % (High) 12/02/2018 12:03 EDT [place] # 1.07 K/uL (High) 12/02/2018 12:03 EDT [...] Appearance CLEAR2 12/02/2018 12:03 EDT Urine Specific [place] 1.013 12/02/2018 12:03 EDT Urine pH Dipstick [...] nitrites, neg LE Electronically signed by Interface, [facility] Conversion [employer] at 08/18/2022 11:07 AM CDT documented in this encounter Plan of Treatment Not on file documented as of this encounter Visit Diagnoses Not on filedocumented in this encounter Care Teams Head Waitress Relationship Specialty Start Date End Date [address] [place] [address] PCP - General 05/22/22 documented as of this encounter
--- OUTSIDE RECORDS SUMMARY | 2025-02-20 11:33 | XMS_ITS | Encounter Summary ---
Author Organization [employer] ([place], [place], [place], [place]) Address [address] [place] [address] Care Team Providers Care Charging Board Operator Name Role Phone Ferny Gentile Primary Care Provider [phone] Encounter Details Date Type Department Care Team (Late st Contact Info) Description 12/15/2018 Transcribed Document [facility] [place] [facility] [place] [facility] [place] [address] ProviderArt MD [address] [place] [id number] Social History Tobacco Use Types Packs/Day [...] On: 12/15/2018 9:33 EDT by JUAN ANTONIO WHITLEY RN Discharge Documentation Patient Disposition, General : [...] on filedocumented in this encounter Care Teams Charging Board Operator Relationship Specialty Start Date End Date SeferinoFerny [address] [place] [address] PCP - General 05/22/22 documented as of this encounter
--- OUTSIDE RECORDS SUMMARY | 2025-02-20 11:33 | XMS_ITS | Encounter Summary ---
Author Organization [employer] ([place], [place], [place], [place]) Address [address] [place] [address] Care Team Providers Care Cofounder Name Role Phone Seferino Ferny Primary Care Provider [phone] Encounter Details Date Type Department Care Team (Late st Contact Info) Description 12/15/2018 Transcribed Document [facility] [place] [facility] [place] [address] ProviderArt MD [address] [place] [id number] Social History Tobacco Use Types Packs/Day [...] - Medical Enoxaparin 40 mg, SubCutaneous, Inj, [id number], Routine, Start 12/15/18 9:00:00 EDT (MATTHEW BANEGAS) [...] Q12H Lovenox, 40 mg= 0.4 mL, SubCutaneous, [id number] magnesium oxide, 400 mg= 1 Tab, Oral, [...] EDT Electronically signed by Brina Zamarripa Conversion Supervisor Opening And Picking Cerner at 08/18/2022 11:15 AM CDT documented in this encounter Plan of Treatment Not on file documented as of this encounter Visit Diagnoses Not on filedocumented in this encounter Care Teams Cofounder Relationship Specialty Start Date End Date Ferny Gentile [address] [place] [address] PCP - General 05/22/22 documented as of this encounter
--- OUTSIDE RECORDS SUMMARY | 2025-02-20 11:33 | XMS_ITS | Encounter Summary ---
Author Organization [employer] ([place], [place], [place], [place]) Address [address] [place] [address] Care Team Providers Care Lapel Stitcher Name Role Phone SeferinoSakinat Primary Care Provider Encounter Details Date Type Department Care Team (Late st Contact Info) Description 12/02/2018 Transcribed Document [facility] [place] [facility] [place] [address] ProviderArt MD [address] [place] [id number] Social History Tobacco Use Types Packs/Day Years [...] Joint Academy Date : 12/02/2018 EDT Joint Dna Sequencing Associate Attended Academy : Yes Joint Dna Sequencing Associate Name : Litzy Naranjo [phone] Type of Surgery : Anterior Hip Replacement, [...] from sitting : Moderate 4. Bending to floor/lease picker an object : Moderate 5. Lying in [...] Sybil Soler Rn - 12/06/2018 6:41 EDT documented in this encounter Plan of Treatment Not on file documented as of this encounter Visit Diagnoses Not on filedocumented in this encounter Care Teams Lapel Stitcher Relationship Specialty Start Date End Date Ferny Gentile [address] [place] [address] PCP - General 05/22/22 documented as of this encounter
--- OUTSIDE RECORDS SUMMARY | 2025-02-20 11:33 | XMS_ITS | Encounter Summary ---
Author Organization [employer] ([place], [place], [place], [place]) Address [address] [place] [address] Care Team Providers Care Pharmacy Care Coordinator Name Role Phone SeferinoSakinat Primary Care Provider [phone] Encounter Details Date Type Department Care Team (Late st Contact Info) Description 12/15/2018 Transcribed Document [facility] [place] [facility] [place] [address] ProviderArt MD [address] [place] [address] Social History Tobacco Use Types Packs/Day [...] on filedocumented in this encounter Care Teams Pharmacy Care Coordinator Relationship Specialty Start Date End Date Ferny Gentile [address] [place] [phone] PCP - General 05/22/22 documented as of this encounter
--- OUTSIDE RECORDS SUMMARY | 2025-02-20 11:34 | XMS_ITS | Encounter Summary ---
Author Organization [employer] ([place], [place], [place], [place]) Address [address] [place] [address] Care Team Providers Care Machine Tech Name Role Phone Ferny Gentile Primary Care Provider [phone] Encounter Details Date Type Department Care Team (Late st Contact Info) Description 12/15/2018 Transcribed Document [facility] [place] [facility] [place] [address] ProviderArt MD [address] [place] [address] Social History Tobacco Use Types Packs/Day [...] Historical ProviderMD - 12/15/2018 2:00 AM CDT Intelligence Analyst Details Entered On: 12/15/2018 1:35 EDT Performed [...] on filedocumented in this encounter Care Teams Machine Tech Relationship Specialty Start Date End Date Ferny Gentile [address] [place] [address] PCP - General 05/22/22 documented as of this encounter
--- OUTSIDE RECORDS SUMMARY | 2025-02-20 11:34 | XMS_ITS | Encounter Summary ---
Author Organization [email or web address] ([place], [place], [place], [place]) Address [address] [place] [address] Care Team Providers Care Cone Runner Name Role Phone Ferny Gentile Primary Care Provider Encounter Details Date Type Department Care Team (Late st Contact Info) Description 01/18/2022 Outside Orders [facility] Outpatient Physical Therapy [address] [place] [address] Roverto Hoover MD [address] [place] [address] [address] [place] [address] Other diseases of vocal cords (Primary Dx) [...] Primary documented in this encounter Care Teams Cone Runner Relationship Specialty Start Date End Date Ferny Gentile [address] [place] [address] PCP - General 05/22/22 documented as of this encounter
== END 2025-02-16 23:59 ==
LOC: LAB.DROPOF 02-20 11:27
PROVIDERS: PCP Internal Medicine; Visit Provider Internal Medicine
DX: E78.5 Hyperlipidemia, unspecified (principal); M05.79 Rheumatoid arthritis with rheumatoid factor of multiple sites without organ or systems involvement; I11.0 Hypertensive heart disease with heart failure; I50.40 Unspecified combined systolic (congestive) and diastolic (congestive) heart failure
CPT/HCPCS: 80053; 80061; 84443; 85007; 85025

== ENCOUNTER 2025-03-02 07:06 | Day surgery (SDC) | payer MEDICARE, OTHER, SELFPAY ==
[2025-02-24 15:00] VITALS: BMI 30.9
--- NOTE | 2025-03-01 06:53 | EXP.HP ---
History of Present Illness *Admission Date: 03/02/25 *History of present illness: Mrs. Skaggs is an 84-year-old female who is here for screening colonoscopy. The patient does have a personal history of adenomatous colon polyps and family history of colon cancer. The patient's colonoscopy in July 2007 revealed 2 polyps (tubulovillous adenoma x 1/tubular adenoma x 1) which were removed. Her colonoscopy in April 2011 revealed 2 polyps (tubular adenoma x 1/hyperplastic polyp x 1) which were removed. Her colonoscopy in March 2013 revealed a single polyp (tubular adenoma x 1). Her colonoscopy in June 2017 revealed 7 polyps (tubular adenomas x 5/hyperplastic polyps x 2) which were removed. The patient's last colonoscopy in February 2022 revealed 5 polyps (larger 17 mm serrated adenoma x 1 (advanced adenoma), small serrated adenomas x 3 and hyperplastic polyp x 1). I did recommend 3-year surveillance interval. The patient's mother had colon cancer in her early 80s. The patient does have a history of heterozygous hemochromatosis (H63D mutation). The examination is deemed medically necessary for screening colonoscopy. The patient has been seen, interviewed and examined prior to the procedure by both myself and the anesthesia provider. [facility] Disclaimer: The information contained in this section may have been updated after the patient was seen, as this information can be updated by other users. 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 History of gallstones FH: mastectomy Cataracts, bilateral Left carpal tunnel syndrome Fracture of left hip requiring operative repair Pacemaker Breast cancer Surgical History History of colonoscopy History of cataract surgery Previous back surgery S/P right knee arthroscopy H/O hysterectomy for benign disease Family History Mother Colon cancer Family/Other Colon cancer Other Hypertension Social History Smoking Status: Never smoker alcohol intake: current substance use type: denies use current occupational status: retired Travel in the last 8 weeks?: None household members: none housing: house caffeine: Yes Have you lived/traveled outside US in past 30 days?: No Contact w/someone who lives/traveled outside US past 30 days?: No Exposure to someone with infectious disease in past 14 days?: No Do you have a fever (greater than 100.4 F or 38 C)?: No Have you tested positive for COVID-19?: No Exposed to someone with COVID-19 in past 14 days?: No Do you have a sore throat?: No Do you have a cough?: No Do you have any weakness?: No Are you experiencing any nausea/vomitting?: No Do you have any diarrhea?: No Are you experiencing any unusual bleeding?: No Do you have any muscle aches/pain?: No Do you have any abdominal pain?: No Are you experiencing loss of taste or smell?: No Other Medical History Have you received the Flu Vaccine for this season: Yes Have you received the Pneumonia Vaccine: Yes Review of Systems Review of Systems Review of systems (narrative): Negative *Cardiovascular Comments: Negative *Gastrointestinal Comments: Negative *Genitourinary Comments: Negative *Musculoskeletal Comments: Negative *Neurologic Comments: Negative Meds Home Medications and Allergies Home Medications ?Medication ?Instructions ?Recorded ?Confirmed ?Type cetirizine 10 mg tablet (Allergy 10 mg PO DAILY PRN allergies 04/16/22 03/02/25 History Relief (cetirizine)) inclisiran 284 mg/1.5 mL 284 mg SQ [id number] 08/21/22 03/02/25 History subcutaneous syringe (Leqvio) dofetilide 125 mcg capsule 125 mcg PO Q12H 10/30/22 03/02/25 History warfarin 5 mg tablet See Rx Instructions .Route .COMPLEX 02/22/23 03/02/25 History warfarin 7.5 mg tablet 7.5 mg PO QMWF 02/08/24 03/02/25 History ipratropium bromide 42 mcg (0.06 See Rx Instructions .Route 06/29/24 03/02/25 Rx %) nasal spray .COMPLEX #45 mL folic acid 1 mg tablet 1 mg PO DAILY 07/04/24 03/02/25 History furosemide 20 mg tablet See Rx Instructions .Route 07/08/24 03/02/25 Rx .COMPLEX #30 tabs methotrexate sodium 2.5 mg tablet 2.5 mg PO WEEKLY 07/14/24 03/02/25 History estradiol 0.01% (0.1 mg/gram) 1 appful vaginal .COMPLEX To 08/01/24 03/02/25 Rx vaginal cream prevent UTIs #42.5 grams metoprolol succinate 50 mg See Rx Instructions .Route 12/26/24 03/02/25 Rx tablet,extended release 24 hr .COMPLEX #90 tabs mirabegron 25 mg tablet,extended 25 mg PO DAILY unknown #30 tabs 12/27/24 03/02/25 Rx release 24 hr (Myrbetriq) ofloxacin 0.3 % eye drops 1 drp ophthalmic (eye) QID PRN eye 01/09/25 03/02/25 Rx irritation #5 mL alendronate 70 mg tablet 70 mg PO WEEKLY #12 tabs 02/06/25 03/02/25 Rx sodium,potassium,mag sulfates 17.5 See Rx Instructions PO .COMPLEX 02/16/25 03/02/25 Rx gram-3.13 gram-1.6 gram oral soln #354 mL (Suprep Bowel Prep Kit) pantoprazole 40 mg tablet,delayed See Rx Instructions .Route 02/22/25 03/02/25 Rx release .COMPLEX #90 tabs colestipol 1 gram tablet (Colestid) See Rx Instructions .Route .COMPLEX 02/24/25 03/02/25 History ezetimibe 10 mg tablet (Zetia) See Rx Instructions .Route .COMPLEX 02/24/25 03/02/25 History perfluorohexyloctane (PF) 100 % 1 drp ophthalmic (eye) QID PRN Dry 02/24/25 03/02/25 History eye drops (Miebo (PF)) Eyes New Prescriptions to Start Prescriptions: Allergies Allergy/AdvReac Type Severity Reaction Status Date / Time acetaminophen Allergy Mild HEADACHES Verified 03/02/25 08:10 oxycodone (From Percocet) Allergy Mild HEADACHES Verified 03/02/25 08:10 pravastatin (From PRAVACHOL) Allergy Unknown Unknown Verified 03/02/25 08:10 allergy reaction sulfamethoxazole (From Allergy Unknown Unknown Verified 03/02/25 08:10 BACTRIM) allergy reaction trimethoprim (From BACTRIM) Allergy Unknown Unknown Verified 03/02/25 08:10 allergy reaction Sulfa (Sulfonamide Allergy Unknown Verified 03/02/25 08:10 Antibiotics) allergy reaction Exam *Routine HEENT Exam Head: Present normocephalic Eye: Present EOMI and PERRL ENT: Present mucous membranes moist *Routine Neck Exam Neck: Present supple *Routine Respiratory Exam Respiratory: Present CTA bilaterally *Routine Cardiovascular Exam Cardiovascular: Present RRR *Routine Abdominal Exam Abdominal: Present soft and normoactive bowel sounds; Absent tenderness *Routine Rectal Exam Rectal:: deferred *Routine Genitalia Exam Genitalia:: deferred *Routine Extremities Exam Extremities: Absent cyanosis, clubbing or edema *Routine Skin Exam Skin: Present warm; Absent rash *Routine Neurological Exam Neurological: Present alert and oriented X3 Assessment and Plan *Assessment and plan (1) Personal history of adenomatous and serrated colon polyps: Status: Acute Category: Medical Code(s): Z86.0101 - Personal history of adenomatous and serrated colon polyps (2) Family history of colon cancer in mother: Status: Acute Category: Medical Code(s): Z80.0 - Family history of malignant neoplasm of digestive organs Plan A/P: 1. Personal history of multiple adenomatous colon polyps and family history of colon cancer is the preprocedural diagnosis. The patient will be anesthetized/sedated using MAC sedation. The patient has been seen and examined. Cardiac and lung assessment prior to the examination is stable. Proceed with planned screening/surveillance colonoscopy.
--- NOTE | 2025-03-02 06:55 | P.PCN_ITS ---
[facility] Procedure Note Date: 03/02/25 Time: 08:56 Procedure Note:: Colonoscopy Procedure Report: Colonoscopy with cold snare polypectomy and cold biopsies Endoscopist: Cody Quiroz II, MD Referring physician: Ferny Gentile MD Date of Procedure: March 02, 2025 Equipment: Olympus [id number] adult colonoscope Sedation: MAC sedation Indication: Mrs. Skaggs is an 84-year-old female who is here for screening colonoscopy. The patient does have a personal history of adenomatous colon po lyps and family history of colon cancer. The patient's colonoscopy in July 2007 revealed 2 polyps (tubulovillous adenoma x 1/tubular adenoma x 1) which were removed. Her colonoscopy in April 2011 revealed 2 polyps (tubular adenoma x 1/hyperplastic polyp x 1) which were removed. Her colonoscopy in March 2013 revealed a single polyp (tubular adenoma x 1). Her colonoscopy in June 2017 revealed 7 polyps (tubular adenomas x 5/hyperplastic polyps x 2) which were removed. The patient's last colonoscopy in February 2022 revealed 5 polyps (larger 17 mm serrated adenoma x 1 (advanced adenoma), small serrated adenomas x 3 and hyperplastic polyp x 1). I did recommend 3-year surveillance interval. The patient's mother had colon cancer in her early 80s. She also had a maternal uncle with colon cancer. The patient has struggled with some diarrhea and stopped MiraLAX. She is on the psyllium Konsyl. She has improved some with colestipol. She also gets some soreness in the left upper abdomen. She has had some gassiness and minor bloating. The patient does have a history of heterozygous hemochromatosis (H63D mutation). The examination is deemed medically necessary for screening colonoscopy. Procedure: Prior to the procedure, a history and physical exam was performed, and patient's medications and allergies were reviewed. The risks, benefits and alternatives of the sedation and procedure were discussed with the patient. All questions were answered and informed consent was obtained. The patient was brought to the procedure room. Patient identification and proposed procedure were verified by the physician and the nurse. The patient was placed in a left lateral decubitus position and the scope was passed under direct vision. Throughout the procedure, the patient's blood pressure, pulse, and oxygen saturations were monitored continuously. The colonoscopy was accomplished without difficulty. The patient tolerated the procedure well. Findings: On digital rectal examination there was normal rectal tone. There were no external hemorrhoids. The colonoscope was introduced through the anal canal to the rectum and advanced to the cecum. The ileocecal valve and appendiceal orifice were identified. The scope was advanced a short distance into the ileum which appeared grossly normal. The scope was then withdrawn into the colon. There were 3 diminutive colon polyps (ascending x 2 (4 and 4 mm) and transverse x 1 (3 mm)). These were all removed via cold snare polypectomy. Random cold biopsies were taken from the right colon to rule out microscopic colitis. The remaining cecum, ascending and transverse colon and mucosa were grossly normal. There were scattered diverticuli throughout the colon but more predominantly in the descending and sigmoid colon (LEFT colon). The rectum itself was normal. Upon retroflexion within the rectum there were grade 1-2 internal hemorrhoids. The preparation was excellent throughout with [place] Preparation Score of 9. The cecal time was 14 minutes. Impression: 1. Diminutive colonic polyps x 3 2. Pandiverticulosis 3. Grade 1-2 internal hemorrhoids Plan: I will follow-up the polyp histology and I do not feel that she will need further screening/preventive colonoscopy. I would continue psyllium Konsyl and colestipol. 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 We will discuss treatment options.
[2025-03-02 07:56] VITALS: BP 115/61; PULSE 88; RESP 18; TEMP 36.4; O2SAT 95
[2025-03-02] MEDS: LACTATED RINGERS 1000ML 1,000 ML 50 ML IV (08:19)
--- NOTE | 2025-03-02 08:22 | P.PNANES_ITS ---
[facility] Disclaimer: The information contained in this section may have been updated after the patient was seen, as this information can be updated by other users. 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 History of gallstones FH: mastectomy Cataracts, bilateral Left carpal tunnel syndrome Fracture of left hip requiring operative repair Pacemaker Breast cancer Surgical History History of colonoscopy History of cataract surgery Previous back surgery S/P right knee arthroscopy H/O hysterectomy for benign disease Family History Mother Colon cancer Family/Other Colon cancer Other Hypertension Social History Smoking Status: Never smoker alcohol intake: current substance use type: denies use current occupational status: retired Travel in the last 8 weeks?: None household members: none housing: house caffeine: Yes Have you lived/traveled outside US in past 30 days?: No Contact w/someone who lives/traveled outside US past 30 days?: No Exposure to someone with infectious disease in past 14 days?: No Do you have a fever (greater than 100.4 F or 38 C)?: No Have you tested positive for COVID-19?: No Exposed to someone with COVID-19 in past 14 days?: No Do you have a sore throat?: No Do you have a cough?: No Do you have any weakness?: No Are you experiencing any nausea/vomitting?: No Do you have any diarrhea?: No Are you experiencing any unusual bleeding?: No Do you have any muscle aches/pain?: No Do you have any abdominal pain?: No Are you experiencing loss of taste or smell?: No [facility] Anesthesia Checklist Patient Identification Patient Identification: Arm Band and Verbal (Name & ) Structural Data Admitted From: Home Planned Operative Procedure/s: colonscopy Consent for Planned Operative Procedure(s) Verified: Yes Verified Documents: Surgical Consent and History and Physical NPO Status Verified Time NPO: 00:00 Additional verifications Anesthesia Reactions: No Hx Blood Transfusions: No Blood Transfusion Reaction: No Previous Colonoscopy: Yes Airway Assessment Mallampati Score:: Class II Dentition: Good Dentition Neurological Assessment Level of Consciousness: Awake, Alert and Appropriate Hx Seizures: No Numbness or tingling in extremities: No Anesthesia Plan Anesthesia Risk discussed: Yes Anesthesia Plan: Verified ASA Class: III Anesthesia Type: MAC
[2025-03-02 08:59] VITALS: BP 101/53; PULSE 79; RESP 15; TEMP 36.3; O2SAT 94
[2025-03-02 09:09] VITALS: BP 127/48; PULSE 81; RESP 16; O2SAT 93
[2025-03-02 09:19] VITALS: BP 144/65; PULSE 73; RESP 16; O2SAT 95
[2025-03-02 09:29] VITALS: BP 148/77; PULSE 71; RESP 16; O2SAT 96
== END 2025-03-02 09:50 | disposition home or self-care (01) ==
PROVIDERS: PCP Internal Medicine; Visit Provider Internal Medicine Gastroenterology
PROC: 0DJD8ZZ Inspection of Lower Intestinal Tract, Via Natural or Artificial Opening Endoscopic (ICD-10-PCS; CPT 45378; principal; 2025-03-02 08:30)
DX: Z12.11 Encounter for screening for malignant neoplasm of colon (principal); D12.2 Benign neoplasm of ascending colon; D12.3 Benign neoplasm of transverse colon; K64.0 First degree hemorrhoids; K64.1 Second degree hemorrhoids; K57.30 Diverticulosis of large intestine without perforation or abscess without bleeding; E83.110 Hereditary hemochromatosis; I48.91 Unspecified atrial fibrillation; K21.9 Gastro-esophageal reflux disease without esophagitis; Z95.0 Presence of cardiac pacemaker; Z79.01 Long term (current) use of anticoagulants; E78.5 Hyperlipidemia, unspecified; M81.0 Age-related osteoporosis without current pathological fracture; Z88.2 Allergy status to sulfonamides; Z88.8 Allergy status to other drugs, medicaments and biological substances; Z88.6 Allergy status to analgesic agent; Z88.5 Allergy status to narcotic agent; Z86.0101 Personal history of adenomatous and serrated colon polyps; Z80.0 Family history of malignant neoplasm of digestive organs; Z88.1 Allergy status to other antibiotic agents
CPT/HCPCS: 45385; 88305; J2003; J2704; J7120

== ENCOUNTER 2025-03-13 14:44 | Outpatient (CLI) | payer MEDICARE, OTHER, SELFPAY ==
--- OUTSIDE RECORDS SUMMARY | 2025-03-13 14:47 | XMS_ITS | Encounter Summary ---
Author Organization [employer] ([place], [place], [place], [place], [place]) Address [address] [place] [address] Care Team Providers Care Lockstitcher Name Role Phone Ferny Gentile Primary Care Provider [phone] Encounter Details Date Type Department Care Team (Late st Contact Info) Description 12/15/[address] [facility] [place] Family [place] [facility] [place] [address] ProviderArt MD [address] [place] [address] Social History Tobacco Use Types Packs/Day [...] Art ProviderMD - 12/15/2018 11:22 [place] [address] UZAIR MADERA :1940 Visit Time:12/14/2018 Your Visit Summary Your Care Team Admitting Physician - MARIELLA DOBBS MD CHRISTENSEN, CHRISTIAN, MD-HEAVENT Attending Physician - MATTHEW BANEGAS MD-ORT Primary Care Physician - FERNY GENTILE (REF)MD-INT Referring Physician - BANEGAS, ADVENTISM, MD-ORT Your Diagnosis Hip pain, chronic Discharge Vitals Temperature 37.1 ??C Heart Rate 68 Respiratory Rate 18 Blood Pressure 98/50 What to do next Instructions From Your Care Team PATIENT HAS A WALKER, PT WILL HAVE HOME THERAPY WITH [facility] , PATIENT CHECKS HER OWN INR WITH HOME MACHINE, DR THACKER IS CORPORATE LAW ASSISTANT Discharge Follow Up Instructions: PCP in1 week [...] Oral Two Times A Day Pickup at [facility] enoxaparin (Lovenox 40 mg/ [...] further dose adjustments aif needed Pickup at [facility] bifidobacterium infantis (Align) 4 [...] psyllium (Konsyl) Oral Every Day Pharmacy Information [facility]: [place] [address] [phone] Take your medications faithfully. Do NOT skip [...] Barley. Bulgur wheat. Millet. Bran muffins. Popcorn. [place] wafer crackers. Vegetables Sweet potatoes. Spinach. Kale. Artichokes. Cabbage. Broccoli. Green peas. Carrots. Squash. Fruits Berries. Pears. Apples. Oranges. Avocados. Prunes and raisins. Dried figs. Meats and Other Protein Sources [place], kidney, shrestha, and soy beans. Split peas. [...] ??? Soy or vegetable zuri ??? 1 zuir has 11 g of protein. ??? [place] seeds ??? 1 oz has 5.5 g [...] floor. ??? Place frequently used items in vnre-ag-kkrei places ??? Keep electrical cables out of [...] ??? Using the bathroom. ??? Using household personal injury litigation paralegal or toxic chemicals. ??? Touching or taking [...] are a day sleeper or work a shift mechanic. Some people have thoughts about suicide while [...] may report side effects to FDA at 6-109-HAD-7880. What other drugs will affect gabapentin? Taking gabapentin with other drugs that make you sleepy can worsen this effect. Ask your doctor before taking a sleeping pill, narcotic medication, muscle relaxer, or medicine for anxiety, depression, or seizures. Other drugs may interact with gabapentin, including prescription and wpfq-hxm-ipogtqi medicines, vitamins, and herbal products. Tell your [...] to ensure that the information provided by DPSI. ('Multum') is accurate, up-to-date, and complete, but no guarantee is made to that effect. Drug information contained herein may be time sensitive. Clink information has been compiled for use by healthcare practitioners and consumers in the [place] and therefore Clink does not warrant that uses outside of the [place] are appropriate, unless specifically indicated otherwise. Rafters drug information does not endorse drugs, diagnose patients or recommend therapy. Rafters drug information is an informational resource designed [...] effective or appropriate for any given patient. Clink does not assume any responsibility for any aspect of healthcare administered with the aid of information Clink provides. The information contained herein is not intended to cover all possible uses, directions, precautions, warnings, drug interactions, allergic reactions, or adverse effects. If you have questions about the drugs you are taking, check with your doctor, nurse or pharmacist. Copyright [id number] DPSI. Version: 14.. Revision Date: 02/10/2017. hydromorphone (oral) (NOAH droe [...] extended-release form of this medicine is for pmvmqc-wgi-lkwof treatment of moderate to severe pain, not [...] against the law. Stop taking all other iehmrf-eyj-bumcd narcotic pain medications when you start taking [...] may report side effects to FDA at 9-913-XBU-3164. What other drugs will affect hydromorphone? Opioid [...] drugs may affect hydromorphone, including prescription and pfcl-kge-enyeuke medicines, vitamins, and herbal products. Not all [...] to ensure that the information provided by DPSI. ('Multum') is accurate, up-to-date, and complete, but no guarantee is made to that effect. Drug information contained herein may be time sensitive. Clink information has been compiled for use by healthcare practitioners and consumers in the [place] and therefore Clink does not warrant that uses outside of the [place] are appropriate, unless specifically indicated otherwise. Rafters drug information does not endorse drugs, diagnose patients or recommend therapy. Mozilla drug information is an informational resource designed [...] effective or appropriate for any given patient. Clink does not assume any responsibility for any aspect of healthcare administered with the aid of information Clink provides. The information contained herein is not intended to cover all possible uses, directions, precautions, warnings, drug interactions, allergic reactions, or adverse effects. If you have questions about the drugs you are taking, check with your doctor, nurse or pharmacist. Copyright [id number] DPSI. Version: 9.02. Revision Date: 03/31/2018. acetaminophen and hydrocodone (a SEET a MIN oh fen and noah droe KOE done) Hycet, Lorcet, Pindall, Verdrocet, Vicodin, Xodol, Zamicet What is the [...] may report side effects to FDA at 2-990-ABR-0242. What other drugs will affect acetaminophen and [...] affect acetaminophen and hydrocodone, including prescription and jayl-fxm-gcxdkuc medicines, vitamins, and herbal products. Not all [...] to ensure that the information provided by DPSI. ('Multum') is accurate, up-to-date, and complete, but no guarantee is made to that effect. Drug information contained herein may be time sensitive. Clink information has been compiled for use by healthcare practitioners and consumers in the [place] and therefore Clink does not warrant that uses outside of the [place] are appropriate, unless specifically indicated otherwise. Rafters drug information does not endorse drugs, diagnose patients or recommend therapy. Rafters drug information is an informational resource designed [...] effective or appropriate for any given patient. Clink does not assume any responsibility for any aspect of healthcare administered with the aid of information Clink provides. The information contained herein is not intended to cover all possible uses, directions, precautions, warnings, drug interactions, allergic reactions, or adverse effects. If you have questions about the drugs you are taking, check with your doctor, nurse or pharmacist. Copyright [id number] DPSI. Version: 15.02. Revision Date: 03/08/2018. tramadol (TRAM a dol) Jarrett Caom, Ultram ER What is the most important [...] extended-release form of this medicine is for riajuj-zsq-zvybk treatment of pain. This form of tramadol [...] against the law. Stop taking all other stlniw-qay-husmg narcotic pain medications when you start taking [...] may report side effects to FDA at 9-993-IET-9614. What other drugs will affect tramadol? You [...] may affect tramadol. This includes prescription and ziqw-csr-dojxftw medicines, vitamins, and herbal products. Not all [...] to ensure that the information provided by DPSI. ('Multum') is accurate, up-to-date, and complete, but no guarantee is made to that effect. Drug information contained herein may be time sensitive. Clink information has been compiled for use by healthcare practitioners and consumers in the [place] and therefore Clink does not warrant that uses outside of the [place] are appropriate, unless specifically indicated otherwise. Clink's drug information does not endorse drugs, diagnose patients or recommend therapy. Rafters drug information is an informational resource designed [...] effective or appropriate for any given patient. Clink does not assume any responsibility for any aspect of healthcare administered with the aid of information Clink provides. The information contained herein is not intended to cover all possible uses, directions, precautions, warnings, drug interactions, allergic reactions, or adverse effects. If you have questions about the drugs you are taking, check with your doctor, nurse or pharmacist. Copyright [id number] DPSI. Version: 20.01. Revision Date: 08/12/2018. Emergency Awareness [...] Assistance with quitting is available by contacting 9-967-SOXYvelingoNOW. This is a free resource providing counseling, [...] range between ( 11.2 and 15.7 ) 12/02/18 12:03:00 WBC: 6.2 K/uL -- Normal range between ( 3.9 and 10.0 ) documented in this encounter Plan of Treatment Not on file documented as of this encounter Visit Diagnoses Not on filedocumented in this encounter Care Teams Lockstitcher Relationship Specialty Start Date End Date Ferny Gentile [address] [place] [address] PCP - General 05/22/22 documented as of this encounter
--- OUTSIDE RECORDS SUMMARY | 2025-03-13 14:47 | XMS_ITS | Encounter Summary ---
Author Organization [employer] ([place], [place], [place], [place], [place]) Address [address] [place] [address] Care Team Providers Care Joiners Supervisor Name Role Phone Ferny Gentile Primary Care Provider [phone] Encounter Details Date Type Department Care Team (Late st Contact Info) Description 12/15/2018 Transcribed Document [facility] [place] [facility] [place] [address] ProviderArt MD [address] [place] [address] Social History Tobacco Use Types Packs/Day [...] Conversion Note - Historical ProviderMD - 12/15/2018 5:00 AM CDT Chart Check - Review Order Profile Entered On: 12/15/2018 3:02 EDT Performed On: 12/15/2018 5:00 EDT by Amos Robertson RN Chart Check Powerplans Initiated/Discontinued as Appropriate : Yes All Active Orders Reviewed : Yes Amos Robertson RN - 12/15/2018 3:02 EDT documented in this encounter Plan of Treatment Not on file documented as of this encounter Visit Diagnoses Not on filedocumented in this encounter Care Teams Joiners Supervisor Relationship Specialty Start Date End Date Ferny Gentile [address] [place] [address] PCP - General 05/22/22 documented as of this encounter
--- OUTSIDE RECORDS SUMMARY | 2025-03-13 14:47 | XMS_ITS | Encounter Summary ---
Author Organization [employer] ([place], [place], [place], [place], [place]) Address [address] [place] [address] Care Team Providers Care Petroleum Plant Operator Name Role Phone Douglas Gentileght Primary Care Provider [phone] Encounter Details Date Type Department Care Team (Late st Contact Info) Description 12/15/2018 Transcribed Document [facility] [place] [facility] [place] [address] ProviderArt MD [address] [place] [address] Social History Tobacco Use Types Packs/Day [...] Conversion Note - Historical ProviderMD - 12/15/2018 9:28 AM CDT Stroke/Warfarin [...] on filedocumented in this encounter Care Teams Petroleum Plant Operator Relationship Specialty Start Date End Date Ferny Gentile [address] [place] [address] PCP - General 05/22/22 documented as of this encounter
--- OUTSIDE RECORDS SUMMARY | 2025-03-13 14:48 | XMS_ITS | Encounter Summary ---
Author Organization [employer] ([place], [place], [place], [place], [place]) Address [address] [place] [address] Care Team Providers Care Administrative Office Manager Name Role Phone Ferny Gentile Primary Care Provider [phone] Encounter Details Date Type Department Care Team (Late st Contact Info) Description 12/14/2018 Transcribed Document [facility] [place] Family [facility] [place] [address] ProviderArt MD [address] [place] [address] Social History Tobacco Use Types Packs/Day [...] Source : Stated Height Entry Format : [place] Height, Feet : 5 ft(Converted to: 152 cm, 60 Inch) Height, Inches : 7 Inch(Converted to: 0 ft 7 Inch, 17.78 cm) Clinical Height : 170.18 cm Weight Source : Standing scale Weight Entry Format : [place] Clinical Dosing Weight : 90.91 kg Weight, Pounds : 200 lb Body Surface Area (BSA) : 2.02 m2 Body Mass Index : 31.4 kg/m2 (HI) [place] Body Weight : 61 kg SHERLYN THOMPSON [...] Updated: 12/02/2018 11:37:29 EDT by CINDY DAVID, MALISSA) Substance Abuse: Drug Use Hx: No. (Last Updated: 12/02/2018 11:37:29 EDT by CINDY DAVID, MALISSA) Infectious Disease History Infectious Disease History : [...] Obtained From : Patient Primary Language : Luxembourgish Preferred Communication Mode : Verbal Communication Barrier [...] Walks occasionally [place] Mobility : Slightly limited [place] Nutrition : Adequate SHERLYN THOMPSON RN - [...] Level : 46 or > High Risk [place] Fall Interventions : Adequate lighting, Assistive devices [...] the text rendition version of the form. [place] Coma [place] Best Motor Response : Obey commands [place] Best Verbal Response : Oriented [place] Eye Opening Response : Spontaneous [place] Coma Score : 15 SHERLYN THOMPSON RN - 12/14/2018 6:06 EDT documented in this encounter Plan of Treatment Not on file documented as of this encounter Visit Diagnoses Not on filedocumented in this encounter Care Teams Administrative Office Manager Relationship Specialty Start Date End Date Ferny Gentile [address] [place] [address] PCP - General 05/22/22 documented as of this encounter
--- OUTSIDE RECORDS SUMMARY | 2025-03-13 14:48 | XMS_ITS | Encounter Summary ---
Author Organization [employer] ([place], [place], [place], [place], [place]) Address [address] [place] [address] Care Team Providers Care Producer Arborist Manager Name Role Phone Ferny Gentile Primary Care Provider [phone] Encounter Details Date Type Department Care Team (Late st Contact Info) Description 12/14/2018 Transcribed Document [facility] [place] Family [place] [facility] [place] [address] ProviderArt MD [address] [place] [address] Social History Tobacco Use Types Packs/Day [...] on filedocumented in this encounter Care Teams Producer Arborist Manager Relationship Specialty Start Date End Date Ferny Gentile [address] [place] [address] PCP - General 05/22/22 documented as of this encounter
--- OUTSIDE RECORDS SUMMARY | 2025-03-13 14:48 | XMS_ITS | Encounter Summary ---
Author Organization [email or web address] ([place], [place], [place], [place], [place]) Address [address] [place] [address] Care Team Providers Care Test Developer Name Role Phone Seferino Ferny Primary Care Provider [phone] Encounter Details Date Type Department Care Team (Late st Contact Info) Description 12/02/2018 Transcribed Document [facility] [place] [address] ProviderArt MD [address] [place] [address] Social History Tobacco Use Types Packs/Day [...] Source : Stated Height Entry Format : [place] Height, Feet : 5 ft(Converted to: 152 cm, 60 Inch) Height, Inches : 7 Inch(Converted to: 0 ft 7 Inch, 17.78 cm) Clinical Height : 170.18 cm Weight Source : Standing scale Weight Entry Format : [place] Clinical Dosing Weight : 90.91 kg Weight, Pounds : 200 lb Body Surface Area (BSA) : 2.02 m2 Body Mass Index : 31.4 kg/m2 (HI) [place] Body Weight : 61 kg CINDY DAVID [...] No Thoughts of Harming/Killing Yourself : No CIDNY DAVID RN - 12/02/2018 11:37 EDT Teaching/Learning [...] #2 Relationship : - Primary Language : [place] Communication Barrier : None CINDY DAVID RN [...] : Yes Gender Male : No CINDY DAVID, RN - 12/02/2018 11:37 EDT Electronically signed by [facility], [facility] Conversion Repairer Typewriter Cerner at 08/18/2022 11:25 AM CDT documented in this encounter Plan of Treatment Not on file documented as of this encounter Visit Diagnoses Not on filedocumented in this encounter Care Teams Test Developer Relationship Specialty Start Date End Date Ferny Gentile [address] [place] [address] PCP - General 05/22/22 documented as of this encounter
--- OUTSIDE RECORDS SUMMARY | 2025-03-13 14:48 | XMS_ITS ---
Care Plan - [facility] Created on: March 13, 2025 Luz Skaggs : 1940 Sex: Female Author Organization [facility] Address [address] [place] [address] Phone Care Team Providers Care Nurse Sexual Assault Name Role Phone MARIAMA MORALEZ, FATOUMATA Blanco Primary Care Provider [phone] Camila MORALEZ, Alanna Bowen Unavailable [phone]
--- OUTSIDE RECORDS SUMMARY | 2025-03-13 14:48 | XMS_ITS | Referral Summary ---
Author Organization [employer] ([place], [place], [place], [place], [place]) Address [address] [place] [address] Care Team Providers Care Crepe Maker Name Role Phone SeferinoSakinat Primary Care Provider [phone] Allergies Active Allergy Reactions Criticality Noted Date Comments Oxycodone-Acetaminophen 05/20/2022 HEADACHES Pravastatin 05/20/2022 MUSCLE WEAKNESS Sulfamethoxazole Rash Low 05/20/2022 Medications warfarin (COUMADIN, JANTOVEN) 5 MG tablet TAKE 1 TO 1 AND 1/2 TABLETS ONE TIME DAILY OR DIRECTED BY ANTICOAGULATION CLINIC 01/04/20 Active cetirizine (ZyrTEC) 10 MG tablet daily. [...] oxide 400 mg magnesium Tab daily. Active sy-dwy-ajrokw- cnQ82-ayz-paj- 27 0.5-30-60-90 mg Cap daily. Active cholecalcifero [...] Date Alfredo rded Speak language other than Wallisian at home Not on file 05/22/2023 Want [...] on file Medical Devices Implanted Type Area Promos Executive Producer Device Identifier Shelf Expiration Date Model / Serial / Lot Cement Bone [place] Hv 40/20 600-15-000 - [id number] Implanted:Qty : 2 on 05/26/2022 by Eliseo Cuevas MD at [facility] IMPLANTS Left: Knee DJ SURG:ENCORE MED:BRIANTANOOGA 05/30/2023 600-15-00 0 / / [id number] Ty Tib I-Beam Fix Biomet 75mm [id number] - [id number] Implanted:Qty : 1 on 05/26/2022 by Eliseo Cuevas MD at [facility] TOTAL JOINT CONSTRUCT Left: Knee BIOMET 03/26/2032 [id number] / / [id number] Patella Std 8x31mm [id number] - [id number] Implanted:Qty : 1 on 05/26/2022 by Eliseo Cuevas MD at [facility] TOTAL JOINT CONSTRUCT Left: Knee BIOMET 03/12/2027 [id number] / / [id number] Comp Fem Ps Vangrd 65mm [id number] - [id number] Implanted:Qty : 1 on 05/26/2022 by Eliseo Cuevas MD at [facility] TOTAL JOINT CONSTRUCT Left: Knee BIOMET 10/13/2029 [id number] / / [id number] Insrt Tib Bear Ps 10x71/75 [id number] - [id number] Implanted:Qty : 1 on 05/26/2022 by Eliseo Cuevas MD at [facility] TOTAL JOINT CONSTRUCT Left: Knee BIOMET 11/07/2025 [id number] / / [id number] Insurance MEDICARE PART [place] [address] [place] [address] Advance Directives For more information, please contact: [phone] * Full Code (Latest Code Status on File) Date Activated Date Inactivated Comments 05/26/2022 3:06 PM 05/29/2022 8:04 PM * Full Code Date Activated Date Inactivated Comments 05/26/2022 8:57 AM 05/26/2022 3:06 PM Care Teams Crepe Maker Relationship Specialty Start Date End Date Ferny Gentile [address] [place] [address] PCP - General 05/22/22
--- OUTSIDE RECORDS SUMMARY | 2025-03-13 14:48 | XMS_ITS | Encounter Summary ---
Author Organization [employer] ([place], [place], [place], [place], [place]) Address [address] [place] [address] Care Team Providers Care Clinical Education Academic Coordinator Name Role Phone Douglas Gentileght Primary Care Provider [phone] Encounter Details Date Type Department Care Team (Late st Contact Info) Description 12/14/2018 Transcribed Document [facility] [place] [facility] [place] [address] ProviderArt MD [address] [place] [address] Social History Tobacco Use Types Packs/Day [...] ipratropium 21 mcg/inh (0.03%) nasal spray 2 [place], Nasal, BID kynsol magnesium oxide 400 mg [...] 7.5 mg = 1 Tab, Oral, Daily [place] 7.5/325mg 1-2 tabs PO Q6hrs PRN Dilaudid 2mg Q6hrs PRN (extreme pain only, this is not for management of pain but for rescue only) Tramadol 50mg 1 tab Q 6hrs PRN Lovenox 40mg SubQ daily x 4 doses Colace 100mg 1 tab daily Gabapentin 300mg 1 tab QHS Electronically signed by Marilou, [facility] Conversion Observer Gravity Prospecting Cerner at 08/18/2022 11:18 AM CDT documented in this encounter Plan of Treatment Not on file documented as of this encounter Visit Diagnoses Not on filedocumented in this encounter Care Teams Clinical Education Academic Coordinator Relationship Specialty Start Date End Date Ferny Gentile [address] [place] [address] PCP - General 05/22/22 documented as of this encounter
--- OUTSIDE RECORDS SUMMARY | 2025-03-13 14:48 | XMS_ITS | Clinical Summary ---
Author Organization [facility] Address [address] [place] [address] Phone Care Team Providers Care Fingernail Sculpturer Name Role Phone JOSHUA LESLIE MDGHTheo Blanco Primary Care Provider [phone] Camila MORALEZ, Alanna Bowen Unavailable [phone] Reason for Visit and Chief Complaint The Chief Complaint is: R wrist pain Problems Includes: Problems addressed during this encounter and other active Problems All Visits Onset Date Resolved Date Provider Condition S tatus Joint Pain Wrist Right 04/17/2022 Ceci Santos APRN Active Last Documented On 2 1:05PM ; [facility] Joint Pain Right Thumb 04/17/2022 Ceci griffin APRN Active Last Documented On 2 1:05PM ; [facility] Midback Pain 10/17/2020 Brandon Wilks MD Acti ve Last Documented On 1 2:32PM ; [facility] Joint Pain Left Knee 02/16/2020 Eliseo Cuevas MD Active Last Documented On 0 1:26PM ; [facility] Joint Pain Right Knee 10/29/2016 Alanna castaneda MD Active Last Documented On 7 10:32AM ; [facility] Pain in Lumbar Spine 03/13/2016 Alanna krause MD Active Last Documented On 6 1:07PM ; [facility] Joint Pain Hip Left 03/13/2016 Alanna chin MD Active Last Documented On 6 1:09PM ; [facility] Joint Pain Knee 03/10/2012 Alanna Pereira Active Last Documented On 2 10:37AM ; [facility] Plan of Treatment - Patient screened for future fall risk: documentation of any fall with injury in past year - Last Documented On 04/14/2024 4:23PM ; [facility] Fall Risk Assessment: This patient has been [...] Documented On 04/14/2024 4:23PM ; [facility] Pending Tests Order Diagnosis Results Due Ordering P rovider Therapy - Occupational Therapy Wrist 04/14 Jet Reeves MD Last Documented On 4 12:05PM ; [facility] Instructions to patient Lose weight Last Documented On 4 12:12PM ; [facility] Assessments Includes: Assessments from this encounter Findings - Overweight - Last Documented On 04/14/2024 4:23PM ; [facility] 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 Ulnar sided right wrist pain - Last Documented On 04/14/2024 4:23PM ; [facility] 3. Elevated RA panel - Last Documented On 04/14/2024 4:23PM ; [facility] Instructions Includes: Instructions from this encounter [...] On 4 11:25AM By Carla Hall ; [facility] Protonix 20 MG Oral Tablet Delayed Release 06/16/2022 Provider: Diagnosis: Last Documented On 3 4:00PM By Elif Chicas ; [facility] Flecainide Acetate 100 MG Oral Tablet 06/16/2022 Pro vider: Diagnosis: Last Documented On 3 4:01PM By Elif Chicas ; [facility] Metoprolol Succinate ER 25 M G Oral Tablet Extended Release 24 Hour 06/12/2022 Provider: Diagnosis: Last Documented On 3 4:00PM By Elif Chicas ; [facility] predniSONE 10 MG Oral Tablet 05/02/2022 Provider: FATOUMATA LESLIE MD Diagnosis: Last Documented On 3 4:00PM By Elif Chicas ; [facility] Lagevrio 200 MG Oral Capsule 04/22/2022 Provider: FATOUMATA LESLIE MD Diagnosis: Last Documented On 3 4:00PM By Elif Chicas ; [facility] Lagevrio 200 MG Oral Capsule 04/22/2022 Provider: FATOUMATA LESLIE MD Diagnosis: Last Documented On 3 4:00PM By Elif Chicas ; [facility] Mupirocin 2% External Ointment 04/16/2022 Provider: Eliseo Cuevas MD Diagnosis: three times a day Apply to n ostrils 3 time a day 5 days prior to surgery. Last Documented On 2 2:50PM By Gilda Kamara ; [facility] MegaRed [place]-3 Krill Oil 350 MG Oral Capsule 10/26/19 21 Provider: Diagnosis: Last Documented On 1 1:15PM By Betzaida Donald ; [facility] Sudafed 30 MG Oral Tablet 10/25/2020 Provider: Diagnosis: Last Documented On 1 1:15PM By Betzaida Donald ; [facility] Mucinex Allergy 180 MG Oral Tablet 10/25/2020 Provid er: Diagnosis: Last Documented On 1 1:14PM By Betzaida Donald ; [facility] Warfarin Sodium 7.5 MG Oral Tablet 10/17/2020 Provid er: Diagnosis: Last Documented On 1 2:43PM By Greer Kingston ; [facility] Ezetimibe 10 MG Oral Tablet 09/11/2020 Provider: FATOUMATA LESLIE MD Diagnosis: Last Documented On 1 1:13PM By Betzaida Donald ; [facility] Digoxin 125 MCG Oral Tablet 07/21/2020 Provider: Diagnosis: Last Documented On 1 2:44PM By Greer Kingston ; [facility] CoQ-10 10 MG Oral Capsule 10/20/2019 Provider: Diagnosis: Last Documented On 0 4:01PM By Greer Kingston ; [facility] D3-1000 25 MCG (1000 UT) Oral Capsule 10/20/2019 Pro vider: Diagnosis: Last Documented On 0 4:00PM By Greer Kingston ; [facility] Omeprazole 20 MG Oral Ta blet Delayed Release Disintegrating 10/20/2019 Provider: Diagnosis: Last Documented On 0 3:59PM By Greer Kingston ; [facility] Probiotic Maximum Strength Oral Capsule 10/20/2019 Provider: Diagnosis: Last Documented On 0 3:58PM By Greer Kingston ; [facility] Citalopram Hydrobromide 10 MG Oral Tablet 10/20/2019 Provider: Diagnosis: Last Documented On 0 3:56PM By Greer Kingston ; [facility] Flecainide Acetate 100 MG Oral Tablet 10/20/2019 Pro vider: Diagnosis: Last Documented On 0 3:55PM By Greer Kingston ; [facility] Past Medications on file oxyCODONE HCl 5 MG Oral Tablet 05/29/2022 - 06/03/2022 Provider: Eliseo ceja MD Diagnosis: 1-2 po q 4-6h Last Documented On 3 12:32PM By Hima Cuevas ; [facility] traMADol HCl 50 MG Oral Tablet 05/29/2022 - 06/03/2022 Provider: Eliseo ceja MD Diagnosis: 1-2 po q 4-6h Last Documented On 3 12:32PM By Hima Cuevas ; [facility] Lovenox 40 MG/0.4ML Injection Solution Prefilled Syringe 05/26/2022 - 05/30/2022 Provider: Eliseo ceja MD Diagnosis: 1 sub q injection 1 time day Last Documented On 3 8:35AM By Hima Cuevas ; [facility] Cefadroxil 500 MG Oral Capsule 05/21/2022 - 05/24/2022 Provider: Eliseo ceja MD Diagnosis: twice a day Last Documented On 3 12:08PM By Hima Cuevas ; [facility] Colace 100 MG Oral Capsule 05/21/2022 - 08/19/2022 Provider: Eliseo ceja MD Diagnosis: 1-2 tabs daily Last Documented On 3 12:08PM By Hima Cuevas ; [facility] traMADol HCl 50 MG Oral Tablet 05/21/2022 - 05/26/2022 Provider: Eliseo ceja MD Diagnosis: 1-2 po q 4-6h Last Documented On 3 12:08PM By Hima Cuevas ; [facility] Acetaminophen 500 MG Oral Tablet 05/21/2022 - 06/20/2022 Provider: Eliseo Cuevas MD Diagnosis: 2 three times a day Last Documented On 3 12:08PM By Hima Cuevas ; [facility] oxyCODONE HCl 5 MG Oral Tablet 05/21/2022 - 05/26/2022 Provider: Eliseo ceja MD Diagnosis: 1-2 po q 4-6h Last Documented On 3 12:08PM By Hima Cuevas ; [facility] Ondansetron HCl 4 MG Oral Tablet 05/21/2022 - 05/26/2022 Provider: Eliseo Cuevas MD Diagnosis: 4opc1-5k Last Documented On 3 12:08PM By Hima Cuevas ; [facility] Meloxicam 15 MG Oral Tablet 05/21/2022 - 06/20/2022 Provider: Eliseo ceja MD Diagnosis: once a day Last Documented On 3 12:08PM By Hima Cuevas ; [facility] HYDROcodone-Acetaminophen 7. 5-325 MG Oral Tablet 10/25/2020 - 11/14/2020 Provider: Brandon Wilks MD Diagnosis: twice a day Last Documented On 1 12:08PM By Dr. Wilks ; [facility] [place] 5-325MG Oral Tablet 12/23/2018 - 01/22/2019 Provider: Eliseo ceja MD Diagnosis: 1-2 po q6h prn pain Last Documented On 9 3:09PM By Reanna Gutierrez ; [facility] Acetaminophen 500MG Oral Tablet 12/08/2018 - 01/07/2019 Provider: Eliseo Cuevas MD Diagnosis: 2 three times a day FOR BACON RGERY DO NOT FILL UNTIL 12/14/18 Last Documented On 9 4:10PM By Reanna Gutierrez ; [facility] traMADol HCl 50MG Oral Tablet 12/08/2018 - 12/13/2018 Provider: Eliseo ceja MD Diagnosis: 1-2 po q6h prn pain FOR BACON RGERY DO NOT FILL UNTIL 12/14/18 Last Documented On 9 4:06PM By Reanna Gutierrez ; [facility] Neurontin 300MG Oral Capsule 12/08/2018 - 03/08/2019 Provider: Eliseo ceja MD Diagnosis: 1 every bedtime FOR SURGER Y DO NOT FILL UNTIL 12/14/18 Last Documented On 9 4:05PM By Reanna Gutierrez ; [facility] Dilaudid 2MG Oral Tablet 12/08/2018 - 12/10/2018 Provi gaby: Eliseo Cuevas MD Diagnosis: 1-2 po q6h prn pain (RESCUE PAIN) FOR SURGERY DO NOT FILL UNTIL 12/14/18 Last Documented On 9 4:05PM By Reanna Gutierrez ; [facility] Colace 100MG Oral Capsule [...] By Gilda Kamara ; [facility] [place] 5-325MG Oral Tablet 12/24/2017 - 12/31/2017 Prov ider: Brandon Wilks MD Diagnosis: 1-2 po q 4-6h PRN Last Documented On 8 5:31PM By Dr. Wilks ; [facility] [place] 7.5-325 MG OR TABS 12/24/2017 - 01/03/2018 Provi gaby: Brandon Wilks MD Diagnosis: Last Documented On 8 11:35AM By Marcelle Croft ; [facility] Voltaren Gel 1% External 10/14/2017 - 12/13/2017 Provi gaby: Alanna Jensen MD Diagnosis: use as directed Last Documented On 8 10:09AM By Sayra Evans ; [facility] Lovenox 40MG/0.4ML Subcutaneous Solution 05/06/2017 - 05/26/2017 Provider: Alanna castaneda MD Diagnosis: use as directed/1 INJECTION PER DAY FOR 5 DAYS PRIOR TO PROCEDER & 1 INJECTION PER DAY FOR 5 DAYS AFTER PROCERDER/ Last Documented On 8 4:29PM By Sayra Evans ; [facility] [place] 5-325 MG Tablet 10/29/2016 - 11/05/2016 Provider : Alanna Jensen MD Diagnosis: 1-2 po q 4-6h PRN Last Documented On 7 11:55AM By Camryn Paez ; [facility] Medrol 4 MG Tablet Therapy Pack 02/14/2016 - 02/20/2016 Provider: Alanna chin MD Diagnosis: use as directed by pharmacy Last Documented On 6 3:16PM By Heather Langley ; [facility] [place] 5-325 MG Tablet 12/03/2015 - 12/18/2015 Provider : Alanna Jensen MD Diagnosis: 1-2 po q 4-6h Last Documented On 6 1:26PM By Heather Langley ; [facility] [place] 7.5-325 MG Tablet 11/16/2015 - 12/16/2015 Provid er: Alanna Jensen MD Diagnosis: 1 every 4 - 6 hours PO PRN Last Documented On 6 2:09PM By Lani Marquez ; [facility] Voltaren 1% TD GEL 01/31/2013 - 03/02/2013 Provider: Alanna Jensen MD Diagnosis: DEGENERATIVE MIKEY NT DISEASE KNEE apply 4 grams to affected ar ea 4 times a day//ks Last Documented On 3 2:16PM By Ann Marie Sutherland ; [facility] Lortab 10-500 MG OR TABS 09/14/2012 - 09/21/2012 Provi gaby: Alanna Jensen MD Diagnosis: [id number] [place] jsb/df Last Documented On 3 8:56AM By Jose F Gutierrez ; [facility] Lortab 10-500 MG OR TABS 08/06/2012 - 08/13/2012 Provi gaby: Alanna Jensen MD Diagnosis: [phone] [employer] jsb/df Last Documented On 3 1:59PM By Jose F Gutierrez ; [facility] Lortab 10-500 MG OR TABS 07/09/2012 - 07/16/2012 Provi gaby: Alanna Jensen MD Diagnosis: [phone] [employer] jsb Last Documented On 3 12:36PM By Jose F Gutierrez ; [facility] Lortab 10-500 MG OR TABS 07/01/2012 - 07/08/2012 Provi gaby: Alanna Jensen MD Diagnosis: [phone] [employer] df Last Documented On 3 1:53PM By Jose F Gutierrez ; [facility] Xarelto 10 MG OR TABS 06/14/2012 - 07/05/2012 Provider : Alanna Jensen MD Diagnosis: sx on 06-15-12kw Last Documented On 3 1:31PM By Danielle Dobson ; [facility] Lortab 10-500 MG OR TABS 06/14/2012 - 06/21/2012 Provi gaby: Alanna Jensen MD Diagnosis: sx on 06-15-12kw Last Documented On 3 1:31PM By Danielle Dobson ; [facility] Medications Administered Includes: Administered Medications from this encounter No Administered Medications Recorded Vital Signs Includes: Vital Signs from this encounter Vital Name 04/14/2024 12:09P Height (in) 65 Weight (lb) 172 Body Mass Index 28.6 Body Surface Area 1.9 Note: sr Last Documented: On 04/14/2024 12:11P M ; [facility] Results Includes: Results discussed during this [...] Last Documented On 4 4:23PM ; [facility] Not a current smoker. 04/14/2024 Last Documented On 4 4:23PM ; [facility] Tobacco non-user 04/14/2024 Last Documented On 4 4:23PM ; [facility] Smoking Status Unknown Procedures and Surgical History Includes: Procedures from this encounter Procedures Code Diagnosis Performing Provider Service L ocation Service Date use of tobacco assessment performed 1000F Last Documented On 4 12:12PM ; [facility] patient screened for future fall risk: documentation of any fall with injury in past year 1100F Last Documented On 4 12:12PM ; [facility] an X-ray was performed 24272 Last Documented On 4 12:12PM ; [facility] Medical History Includes: Medical History addressed during this encounter Description Last Updated Recent immunization for flu 02/01/2022 1 06/15/2023 Last Documented On 4 4:23PM ; [facility] Recent immunization for pneumococcal pne umonia 201304/14/2024 Last Documented On 4 4:23PM ; [facility] Family History Includes: Family History [...] ctive Last Documented On 4 12:09PM ; [facility] Statins Support Allergy 06/09/2017 Act citlalli Last Documented On 4 12:09PM ; [facility] Percocet Allergy 03/10/2012 Active Last Documented On 4 12:09PM ; [facility] Bactrim Allergy 11/16/2015 Active Last Documented On 4 12:09PM ; [facility] Encounters Encounter Provider Location Date Check-In Time Check-Out Time Diagnosis Follow Up Ceci Santos APRN [facility] 4 11:15AM 12:07PM Overweight Insurance Includes: Active Insurance Policies Plan Name Member ID Group # Subscriber Relationship Effect citlalli Dates 1 - Medicare Part B of [place] [id number] Luz Skaggs Self 04/03/2007 - Unknown 2 - [facility] [id number] PLAN F Luz Skaggs Self 2011 - Unknown Clinical Notes Includes: Clinical Notes from this encounter * Progress note Date Encounter Last Documented by 04/14/2024 Follow Up Last documented on 04/14/2024; 4:23 PM, Ceci Santos APRN; [facility] Active Problems & Conditions - [...] Capsule 5 days, 0 refills - [employer] [place]-3 Krill Oil 350 MG Oral Capsule once [...] refills - Sudafed 30 MG Oral Tablet 5cdl7-1l 0 days, 0 refills - Warfarin Sodium [...] Care Team - FATOUMATA LESLIE MD - [employer] Reminders - Assess BMI satisfied 04/14/2024. - Assess Tobacco Use satisfied 04/14/2024.
--- OUTSIDE RECORDS SUMMARY | 2025-03-13 14:48 | XMS_ITS | Encounter Summary ---
Author Organization [employer] ([place], [place], [place], [place], [place]) Address [address] [place] [address] Care Team Providers Care Stamp Machine Servicer Name Role Phone Douglas Gentileght Primary Care Provider Encounter Details Date Type Department Care Team (Late st Contact Info) Description 12/14/2018 Transcribed Document [facility] [place] [address] ProviderArt MD [address] [place] [address] Social History Tobacco Use Types Packs/Day [...] Conversion Note - Historical ProviderMD - 12/14/2018 5:00 PM CDT Chart [...] on filedocumented in this encounter Care Teams Stamp Machine Servicer Relationship Specialty Start Date End Date Ferny Gentile [address] [place] [address] PCP - General 05/22/22 documented as of this encounter
--- OUTSIDE RECORDS SUMMARY | 2025-03-13 14:48 | XMS_ITS | Encounter Summary ---
Author Organization [employer] ([place], [place], [place], [place], [place]) Address [address] [place] [address] Care Team Providers Care Lamination Technician Name Role Phone Ferny Gentile Primary Care Provider [phone] Encounter Details Date Type Department Care Team (Late st Contact Info) Description 12/14/2018 Transcribed Document [facility] [place] [address] ProviderArt MD [address] [place] [address] Social History Tobacco Use Types Packs/Day [...] MADERA /Sex: 1940 Female Med Rec #: [id number] Physician: MATTHEW BANEGAS MD-TITO Financial #: [id number] Pt. Type: I Room/Bed: [facility]/ Admit/Disch: 12/14/18 04:48:00 - Institution: [facility] PreOp Case Times Entry 1 In Preop 12/14/18 05:30:00 Ready for Holding n/a Room Patient Ready for 12/14/18 06:49:00 Surgery Patient Out of Preop 12/14/18 07:27:00 Patient Out of n/a Holding Room Last Modified By: SYDNI MCGREGOR 12/14/18 09:40:09 [facility] PreOp Case Times Audit 12/14/18 09:40:09 Toll Ticket Clerk: [email or web address] Modifier: [email or web address] <+> 1 Patient Out of Preop 12/14/18 06:49:39 Toll Ticket Clerk: [email or web address] Modifier: [email or web address] <+> 1 Patient Ready for Surgery Finalized By: SYDNI MCGREGOR Document Signatures Signed By: SYDNI MCGREGOR 12/14/18 09:40 Electronically signed by Brina Zamarripa [employer] Workflow Consultant Cerner at 08/18/2022 11:25 AM CDT documented in this encounter Plan of Treatment Not on file documented as of this encounter Visit Diagnoses Not on filedocumented in this encounter Care Teams Lamination Technician Relationship Specialty Start Date End Date Ferny Gentile [address] [place] [address] PCP - General 05/22/22 documented as of this encounter
--- OUTSIDE RECORDS SUMMARY | 2025-03-13 14:48 | XMS_ITS | Encounter Summary ---
Author Organization [employer] ([place], [place], [place], [place], [place]) Address [address] [place] [address] Care Team Providers Care Blasting Contract Miner Name Role Phone Douglas Gentileght Primary Care Provider [phone] Encounter Details Date Type Department Care Team (Late st Contact Info) Description 12/14/2018 Transcribed Document [facility] [place] [facility] Formerly [facility], [place] [address] ProviderArt MD [address] [place] [id number] Social History Tobacco Use Types Packs/Day [...] 12/14/2018 14:52 EDT by NICHOLE ARIZMENDI Care Management-Call Circuit Worker Initial Assessment I Previously Documented Living Environment : No qualifying data available. Living Situation : Home Patient Lives With : Alone Emergency Contact #1 : Jesi Emergency Contact #1 Emergency Contact #1 Relationship : daughter Emergency Contact #2 : - Emergency Contact #2 Phone Number : - Emergency Contact #2 Relationship : - NICHOLE ARIZMENDI Care Management-Call Circuit Worker - 12/14/2018 14:52 EDT Initial Assessment II Sensory and Motor Deficits : Other: RADHA Current Home Treatments and Equipment : Bedside commode, NICHOLE Martinez, Care Management-Call Circuit Worker - 12/14/2018 14:52 EDT Discharge Needs I Anticipated Discharge Date : 12/15/2018 EDT Anticipated Discharge To, CM : Home with home health Current Home Treatment/Equipment : Current Home Treatment/Equipment No qualifying data available. NCIHOLE ARIZMENDI Care Management-Call Circuit Worker - 12/14/2018 14:52 EDT Discharge Needs II Professional Skilled Services : Professional Skilled Services No qualifying data available. Services and Community Resources : Home Health Discharge Options Discussed with Patient : Home Health NICHOLE ARIZMENDI Care Management-Call Circuit Worker - 12/14/2018 14:52 EDT Electronically signed by Brina Zamarripa Conversion Administrative Services Coordinator Cerner at 08/18/2022 11:19 AM CDT documented in this encounter Plan of Treatment Not on file documented as of this encounter Visit Diagnoses Not on filedocumented in this encounter Care Teams Blasting Contract Miner Relationship Specialty Start Date End Date Ferny Gentile [address] [place] [id number] PCP - General 05/22/22 documented as of this encounter
--- OUTSIDE RECORDS SUMMARY | 2025-03-13 14:48 | XMS_ITS | Encounter Summary ---
Author Organization [employer] ([place], [place], [place], [place], [place]) Address [address] [place] [address] Care Team Providers Care Chucking Machine Operator Name Role Phone SeferinoSakinat Primary Care Provider [phone] Encounter Details Date Type Department Care Team (Late st Contact Info) Description 12/14/2018 Transcribed Document [facility] [place] [address] ProviderArt MD [address] [place] [id number] Social History Tobacco Use Types Packs/Day [...] 12/14/2018 7:20 EDT by YUNIER HENDERSON Chaplain-Daphne Perez General Information Initial Visit : Yes Referred [...] Empathic/Engaged listening, Family/Significant other supported Spiritual and Cheondoism : Prayer shared Change, Adjustment and Loss [...] on filedocumented in this encounter Care Teams Chucking Machine Operator Relationship Specialty Start Date End Date Ferny Gentile [address] [place] [id number] PCP - General 05/22/22 documented as of this encounter
--- OUTSIDE RECORDS SUMMARY | 2025-03-13 14:48 | XMS_ITS | Clinical Summary ---
Author Organization [facility] , [facility] Address [address] [place] [address] Phone Care Team Providers Care Bookmobile Librarian Name Role Phone MARIAMA MORALEZ, FATOUMATA E Primary Care Provider [phone] Camila MORALEZ, Alanna Bowen Unavailable [phone] [...] Active Last Documented On 2 1:05PM ; [facility] Joint Pain Right Thumb 04/17/2022 Ceci griffin APRN Active Last Documented On 2 1:05PM ; [facility] Midback Pain 10/17/2020 Brandon Wilks MD Acti ve Last Documented On 1 2:32PM ; [facility] Joint Pain Left Knee 02/16/2020 Eliseo Cuevas MD Active Last Documented On 0 1:26PM ; [facility] Joint Pain Right Knee 10/29/2016 Alanna castaneda MD Active Last Documented On 7 10:32AM ; [facility] Pain in Lumbar Spine 03/13/2016 Alanna krause MD Active Last Documented On 6 1:07PM ; [facility] Joint Pain Hip Left 03/13/2016 Alanna chin MD Active Last Documented On 6 1:09PM ; [facility] Joint Pain Knee 03/10/2012 Alanna Pereira Active Last Documented On 2 10:37AM ; [facility], [facility] Plan of Treatment Fall Risk Assessment: [...] - Last Documented On 08/18/2022 1:50PM ; [facility] overall the patient is very pleased with her knee surgery, has some residual swelling of the lower leg being treated for lymphedema. Will plan for follow-up one year postop - Last Documented On 08/18/2022 1:50PM ; [facility], [facility] Instructions to patient Lose weight Last Documented On 3 1:09PM ; [facility], [facility] Assessments Includes: Assessments from this encounter Findings 3 months status post left TKA - Last Documented On 08/18/2022 1:50PM ; [facility] Instructions Includes: Instructions from this encounter Instructions to patient Lose weight Last Documented On 3 1:09PM ; [facility] Medical Equipment - Implanted Devices Includes: Current Devices No Medical Equipment Recorded Medications Includes: Medications discussed during this encounter and other current Medications Current Medications (continue as prescribed) Colestipol HCl 5 GM Oral Packet 04/14/2024 Provider: Diagnosis: Last Documented On 4 11:25AM By Carla Hall ; [facility] Protonix 20 MG Oral Tablet Delayed Release 06/16/2022 Provider: Diagnosis: Last Documented On 3 4:00PM By Elif Chicas ; [facility] Flecainide Acetate 100 MG Oral Tablet 06/16/2022 Pro vider: Diagnosis: Last Documented On 3 4:01PM By Elif Chicas ; [facility], [facility] Metoprolol Succinate ER 25 M G Oral Tablet Extended Release 24 Hour 06/12/2022 Provider: Diagnosis: Last Documented On 3 4:00PM By Elif Chicas ; [facility] predniSONE 10 MG Oral Tablet 05/02/2022 Provider: FATOUMATA LESLIE MD Diagnosis: Last Documented On 3 4:00PM By Elif Chicas ; [facility] Lagevrio 200 MG Oral Capsule 04/22/2022 Provider: FATOUMATA LESLIE MD Diagnosis: Last Documented On 3 4:00PM By Elif Chicas ; [facility] Lagevrio 200 MG Oral Capsule 04/22/2022 Provider: FATOUMATA LESLIE MD Diagnosis: Last Documented On 3 4:00PM By Elif Chicas ; [facility], [facility] Mupirocin 2% External Ointment 04/16/2022 Provider: Eliseo Cuevas MD Diagnosis: three times a day Apply to n ostrils 3 time a day 5 days prior to surgery. Last Documented On 2 2:50PM By Gilda Kamara ; [facility], [facility] MegaRed Letcher-3 Krill Oil 350 MG Oral Capsule 10/26/19 21 Provider: Diagnosis: Last Documented On 1 1:15PM By Betzaida Donald ; [facility], [facility] Sudafed 30 MG Oral Tablet 10/25/2020 Provider: Diagnosis: Last Documented On 1 1:15PM By Betzaida Donald ; [facility], [facility] Mucinex Allergy 180 MG Oral Tablet 10/25/2020 Provid er: Diagnosis: Last Documented On 1 1:14PM By Betzaida Donald ; [facility], [facility] Warfarin Sodium 7.5 MG Oral Tablet 10/17/2020 Provid er: Diagnosis: Last Documented On 1 2:43PM By Greer Kingston ; [facility], [facility] Ezetimibe 10 MG Oral Tablet 09/11/2020 Provider: FATOUMATA LESLIE MD Diagnosis: Last Documented On 1 1:13PM By Betzaida Donald ; [facility], [facility] Digoxin 125 MCG Oral Tablet 07/21/2020 Provider: Diagnosis: Last Documented On 1 2:44PM By Greer Kingston ; [facility], [facility] CoQ-10 10 MG Oral Capsule 10/20/2019 Provider: Diagnosis: Last Documented On 0 4:01PM By Greer Kingston ; [facility], [facility] D3-1000 25 MCG (1000 UT) Oral Capsule 10/20/2019 Pro vider: Diagnosis: Last Documented On 0 4:00PM By Greer Kingston ; [facility], [facility] Omeprazole 20 MG Oral Ta blet Delayed Release Disintegrating 10/20/2019 Provider: Diagnosis: Last Documented On 0 3:59PM By Greer Kingston ; [facility], [facility] Probiotic Maximum Strength Oral Capsule 10/20/2019 Provider: Diagnosis: Last Documented On 0 3:58PM By Greer Kingston ; [facility] Citalopram Hydrobromide 10 MG Oral Tablet 10/20/2019 Provider: Diagnosis: Last Documented On 0 3:56PM By Greer Kingston ; [facility] Flecainide Acetate 100 MG Oral Tablet 10/20/2019 Pro vider: Diagnosis: Last Documented On 0 3:55PM By Greer Kingston ; [facility], [facility] Past Medications on file oxyCODONE HCl 5 MG Oral Tablet 05/29/2022 - 06/03/2022 Provider: Eliseo ceja MD Diagnosis: 1-2 po q 4-6h Last Documented On 3 12:32PM By Hima Cuevas ; [facility] traMADol HCl 50 MG Oral Tablet 05/29/2022 - 06/03/2022 Provider: Eliseo ceja MD Diagnosis: 1-2 po q 4-6h Last Documented On 3 12:32PM By Hima Cuevas ; [facility] Lovenox 40 MG/0.4ML Injection Solution Prefilled Syringe 05/26/2022 - 05/30/2022 Provider: Eliseo ceja MD Diagnosis: 1 sub q injection 1 time day Last Documented On 3 8:35AM By Hima Cuevas ; [facility] Cefadroxil 500 MG Oral Capsule 05/21/2022 - 05/24/2022 Provider: Eliseo ceja MD Diagnosis: twice a day Last Documented On 3 12:08PM By Hima Cuevas ; [facility] Colace 100 MG Oral Capsule 05/21/2022 - 08/19/2022 Provider: Eliseo ceja MD Diagnosis: 1-2 tabs daily Last Documented On 3 12:08PM By Hima Cuevas ; [facility] traMADol HCl 50 MG Oral Tablet 05/21/2022 - 05/26/2022 Provider: Eliseo ceja MD Diagnosis: 1-2 po q 4-6h Last Documented On 3 12:08PM By Hima Cuevas ; [facility] Acetaminophen 500 MG Oral Tablet 05/21/2022 - 06/20/2022 Provider: Eliseo Cuevas MD Diagnosis: 2 three times a day Last Documented On 3 12:08PM By Hima Cuevas ; [facility] oxyCODONE HCl 5 MG Oral Tablet 05/21/2022 - 05/26/2022 Provider: Eliseo ceja MD Diagnosis: 1-2 po q 4-6h Last Documented On 3 12:08PM By Hima Cuevas ; [facility] Ondansetron HCl 4 MG Oral Tablet 05/21/2022 - 05/26/2022 Provider: Eliseo Cuevas MD Diagnosis: [id number] Last Documented On 3 12:08PM By Hima Cuevas ; [facility] Meloxicam 15 MG Oral Tablet 05/21/2022 - 06/20/2022 Provider: Eliseo ceja MD Diagnosis: once a day Last Documented On 3 12:08PM By Hima Cuevas ; [facility] HYDROcodone-Acetaminophen 7. 5-325 MG Oral Tablet 10/25/2020 - 11/14/2020 Provider: Brandon Wilks MD Diagnosis: twice a day Last Documented On 1 12:08PM By Dr. Wilks ; [facility] Allen 5-325MG Oral Tablet 12/23/2018 - 01/22/2019 Provider: Eliseo ceja MD Diagnosis: 1-2 po q6h prn pain Last Documented On 9 3:09PM By Reanna Gutierrez ; [facility] Acetaminophen 500MG Oral Tablet 12/08/2018 - 01/07/2019 Provider: Eliseo Cuevas MD Diagnosis: 2 three times a day FOR BACON RGERY DO NOT FILL UNTIL 12/14/18 Last Documented On 9 4:10PM By Reanna Gutierrez ; [facility] traMADol HCl 50MG Oral Tablet 12/08/2018 - 12/13/2018 Provider: Eliseo ceja MD Diagnosis: 1-2 po q6h prn pain FOR BACON RGERY DO NOT FILL UNTIL 12/14/18 Last Documented On 9 4:06PM By Reanna Gutierrez ; [facility], [facility] Neurontin 300MG Oral Capsule 12/08/2018 - 03/08/2019 Provider: Eliseo ceja MD Diagnosis: 1 every bedtime FOR SURGER Y DO NOT FILL UNTIL 12/14/18 Last Documented On 9 4:05PM By Reanna Gutierrez ; [facility], [facility] Dilaudid 2MG Oral Tablet 12/08/2018 - 12/10/2018 Provi gaby: Eliseo Cuevas MD Diagnosis: 1-2 po q6h prn pain (RESCUE PAIN) FOR SURGERY DO NOT FILL UNTIL 12/14/18 Last Documented On 9 4:05PM By Reanna Gutierrez ; [facility] Colace 100MG Oral Capsule 12/08/2018 - 03/08/2019 Provider: Eliseo ceja MD Diagnosis: 1-2 tabs daily FOR SURGERY DO NOT FILL UNTIL 12/14/18 Last Documented On 9 4:10PM By Reanna Gutierrez ; [facility] Mupirocin 2% External Ointment 11/09/2018 - 11/14/2018 Provider: Eliseo ceja MD Diagnosis: Apply to nostrils 3 time a d ay 5 days prior to surgery. Last Documented On 9 10:40AM By Gilda Kamara ; [facility] Allen 5-325MG Oral Tablet 12/24/2017 - 12/31/2017 Prov ider: Brandon Wilks MD Diagnosis: 1-2 po q 4-6h PRN Last Documented On 8 5:31PM By Dr. Wilks ; [facility] Allen 7.5-325 MG OR TABS 12/24/2017 - 01/03/2018 Provi gaby: Brandon Wilks MD Diagnosis: Last Documented On 8 11:35AM By Marcelle Croft ; [facility] Voltaren Gel 1% External 10/14/2017 - 12/13/2017 Provi gaby: Alanna Jensen MD Diagnosis: use as directed Last Documented On 8 10:09AM By Sayra Evans ; [facility] Lovenox 40MG/0.4ML Subcutaneous Solution 05/06/2017 - 05/26/2017 Provider: Alanna castaneda MD Diagnosis: use as directed/1 INJECTION PER DAY FOR 5 DAYS PRIOR TO PROCEDER & 1 INJECTION PER DAY FOR 5 DAYS AFTER PROCERDER/ Last Documented On 8 4:29PM By Sayra Evans ; [facility] Allen 5-325 MG Tablet 10/29/2016 - 11/05/2016 Provider : Alanna Jensen MD Diagnosis: 1-2 po q 4-6h PRN Last Documented On 7 11:55AM By Camryn Paez ; [facility] Medrol 4 MG Tablet Therapy Pack 02/14/2016 - 02/20/2016 Provider: Alanna chin MD Diagnosis: use as directed by pharmacy Last Documented On 6 3:16PM By Heather Langley ; [facility] Allen 5-325 MG Tablet 12/03/2015 - 12/18/2015 Provider : Alanna Jensen MD Diagnosis: 1-2 po q 4-6h Last Documented On 6 1:26PM By Heather Lnagley ; [facility] Allen 7.5-325 MG Tablet 11/16/2015 - 12/16/2015 Provid er: Alanna Jensen MD Diagnosis: 1 every 4 - 6 hours PO PRN Last Documented On 6 2:09PM By Lani Marquez ; [facility] Voltaren 1% TD GEL 01/31/2013 - 03/02/2013 Provider: Alanna Jensen MD Diagnosis: DEGENERATIVE MIKEY NT DISEASE KNEE apply 4 grams to affected ar ea 4 times a day//ks Last Documented On 3 2:16PM By Ann Marie Sutherland ; [facility] Lortab 10-500 MG OR TABS 09/14/2012 - 09/21/2012 Provi gaby: Alanna Jensen MD Diagnosis: [id number] [facility] jsb/df Last Documented On 3 8:56AM By Jose F Gutierrez ; [facility] Lortab 10-500 MG OR TABS 08/06/2012 - 08/13/2012 Provi gaby: Alanna Jensen MD Diagnosis: [id number] [facility] jsb/df Last Documented On 3 1:59PM By Jose F Gutierrez ; [facility] Lortab 10-500 MG OR TABS 07/09/2012 - 07/16/2012 Provi gaby: Alanna Jensen MD Diagnosis: [id number] [facility] jsb Last Documented On 3 12:36PM By Jose F Gutierrez ; [facility] Lortab 10-500 MG OR TABS 07/01/2012 - 07/08/2012 Provi gaby: Alanna Jensen MD Diagnosis: [phone] [facility] df Last Documented On 3 1:53PM By Jose F Gutierrez ; [facility] Xarelto 10 MG OR TABS 06/14/2012 - 07/05/2012 Provider : Alanna Jensen MD Diagnosis: sx on 06-15-/kw Last Documented On 3 1:31PM By Danielle Dobson ; [facility] Lortab 10-500 MG OR TABS 06/14/2012 - 06/21/2012 Provi gaby: Alanna Jensen MD Diagnosis: sx on 06-15-12 Last Documented On 3 1:31PM By Danielle Dobson ; [facility], [facility] Medications Administered Includes: Administered Medications from this encounter No Administered Medications Recorded Vital Signs Includes: Vital Signs from this encounter Vital Name 08/18/2022 01:09P Height (in) 65 Weight (lb) 169 Body Mass Index 28.1 Body Surface Area 1.8 Note: dp Last Documented: On 08/18/2022 1:09PM ; [facility] Results Includes: Results discussed during [...] 04/14/2024 Last Documented On 3 1:09PM ; [facility] Not a current smoker. 04/14/2024 Last Documented On 3 1:09PM ; [facility] Tobacco non-user 04/14/2024 Last Documented On 3 1:09PM ; [facility] Alcohol use 10/25/2020 Last Documented On 3 1:09PM ; [facility] Not using drugs 10/25/2020 Last Documented On 3 1:09PM ; [facility] Recent change in diet 10/25/2020 Last Documented On 3 1:09PM ; [facility] Non-smoker 10/17/2020 Last Documented On 3 1:09PM ; [facility] No caffeine use 10/17/2020 Last Documented On 3 1:09PM ; [facility] Not a current smoker. 10/17/2020 Last Documented On 3 1:09PM ; [facility] No tobacco use 10/31/2019 Last Documented On 3 1:09PM ; [facility] Not a current smoker 10/31/2019 Last Documented On 3 1:09PM ; [facility] Not exercising regularly 10/31/2019 Last Documented On 3 1:09PM ; [facility] Smoking status : Never smoker 10/31/2019 Last Documented On 3 1:09PM ; [facility] Procedures and Surgical History Includes: Procedures from this encounter Procedures Code Diagnosis Performing Provider Service L ocation Service Date use of tobacco assessment performed 1000F Last Documented On 3 1:09PM ; [facility], [facility] patient screened for future fall risk: documentation of any fall with injury in past year 1100F Last Documented On 3 1:09PM ; [facility], [facility] follow-up visit in one month Last Documented On 3 1:09PM ; [facility] referral to physician Last Documented On 3 1:09PM ; [facility], [facility] an X-ray was performed [id number] Last Documented On 3 1:09PM ; [facility] Surgical History Last Updated History of back surgery 11/2019-Kypho T1 2 10/17/2020 Last Documented On 3 1:09PM ; [facility], [facility] History of heart surgery ablation 2017 0 10/31/2019 Last Documented On 3 1:09PM ; [facility], [facility] History of total hip replacement left hi p 201810/31/2019 Last Documented On 3 1:09PM ; [facility], [facility] History of total knee arthroplasty right knee 201210/31/2019 Last Documented On 3 1:09PM ; [facility], [facility] History of hysterectomy 10/16/2014 Last Documented On 3 1:09PM ; [facility] Medical History Includes: Medical History addressed during this encounter Description Last Updated Recent immunization for flu 02/01/2022 1 06/15/2023 Last Documented On 3 1:09PM ; [facility], [facility] Recent immunization for pneumococcal pne umonia 201304/14/2024 Last Documented On 3 1:09PM ; [facility], [facility] History of Irregular Heartbeat A-fib; ep isode after TKA- cadiovert needed 06/16/2022 Last Documented On 3 1:09PM ; [facility], [facility] blood transfusions 10/25/2020 Last Documented On 3 1:09PM ; [facility], [facility] Arthritis 10/25/2020 Last Documented On 3 1:09PM ; [facility], [facility] Heartburn / Acid Reflux 10/25/2020 Last Documented On 3 1:09PM ; [facility] History of Blood Clots 10/25/2020 Last Documented On 3 1:09PM ; [facility] History of Blood Transfusion 10/25/2020 Last Documented On 3 1:09PM ; [facility] History of Cancer 10/25/2020 Last Documented On 3 1:09PM ; [facility] History of Fractures 10/25/2020 Last Documented On 3 1:09PM ; [facility] History of heart disease 10/25/2020 Last Documented On 3 1:09PM ; [facility], [facility] Hypertension 10/25/2020 Last Documented On 3 1:09PM ; [facility] Irregular Heartbeat 10/25/2020 Last Documented On 3 1:09PM ; [facility], [facility] Past Surgical History: wrist repair ~hand sx ~gallstone sx 2011 ~mastectomy and reconstruction ~colonoscopy 2018 10/25/2020 Last Documented On 3 1:09PM ; [facility], [facility] Previous Fractures 10/25/2020 Last Documented On 3 1:09PM ; [facility], [facility] Sleep Apnea 10/25/2020 Last Documented On 3 1:09PM ; [facility] Use of CPAP 10/25/2020 Last Documented On 3 1:09PM ; [facility] Back surgery 12/15/2017 L4-5 Posterior Decompression and Fusion @ [facility] ~11/07/2019 T12 Kyphyoplasty 10/25/2020 Last Documented On 3 1:09PM ; [facility], [facility] Heart surgery pacemaker 12/2019 ~Afib ab lation 10/25/2020 Last Documented On 3 1:09PM ; [facility] History of Gallbladder 10/25/2020 Last Documented On 3 1:09PM ; [facility] Hysterectomy 10/25/2020 Last Documented On 3 1:09PM ; [facility] Total hip replacement 12/2018-Left hip 0 10/17/2020 Last Documented On 3 1:09PM ; [facility] A previous fracture 10/31/2019 Last Documented On 3 1:09PM ; [facility] Gallbladder disease 2018 10/31/2019 Last Documented On 3 1:09PM ; [facility] History of diverticulitis of colon 11/15 Last Documented On 3 1:09PM ; [facility] History of osteoporosis 11/16/2015 Last Documented On 3 1:09PM ; [facility] A history of cancer 10/16/2014 Last Documented On 3 1:09PM ; [facility] Arthritic joint problems 10/16/2014 Last Documented On 3 1:09PM ; [facility] Family History Includes: Family History addressed during this encounter Description Last Updated Family history of cancer mother ~father 11/16/2015 Last Documented On 3 1:09PM ; [facility], [facility] Family history of diabetes mellitus moth [...] mother Last Documented On 3 1:09PM ; [facility] Family history of rheumatoid arthritis m other 11/16/2015 Last Documented On 3 1:09PM ; [facility], [facility] Family history of thromboembolic disease mother 11/16/2015 Last Documented On 3 1:09PM ; [facility] Maternal history of hypertension 015 Last Documented On 3 1:09PM ; [facility] Maternal history of osteoporosis 015 Last Documented On 3 1:09PM ; [facility] Review of Systems Includes: Review [...] ctive Last Documented On 4 12:09PM ; [facility], [facility] Statins Support Allergy 06/09/2017 Act citlalli Last Documented On 4 12:09PM ; [facility], [facility] Percocet Allergy 03/10/2012 Active Last Documented On 4 12:09PM ; [facility], [facility] Bactrim Allergy 11/16/2015 Active Last Documented On 4 12:09PM ; [facility], [facility] Encounters Encounter Provider Location Date Check-In Time Check- Out Time Diagnosis Post Op Hernan Gold PA-C [facility] 3 1:00PM 1:29PM Insurance Includes: Active Insurance Policies Plan Name Member ID Group # Subscriber Relationship Effect citlalli Dates 1 - Medicare Part B [facility] [id number] Luz Skaggs Self 04/03/2007 - Unknown 2 - [employer] [id number] PLAN F Luz Skaggs Self 2011 - Unknown Clinical Notes Includes: Clinical Notes from this encounter * Progress note Date Encounter Last Documented by 08/18/2022 Post Op Last documented on 08/18/2022; 1:50 PM, Hernan Gold PA-C; [facility], [facility] Active Problems & Conditions - Joint [...] directed 0 days, 0 refills - Ipratropium Goltry 0.03% Nasal Solution take as directed 0 days, 0 refills - Lagevrio 200 MG Oral Capsule 5 days, 0 refills - Lagevrio 200 MG Oral Capsule 5 days, 0 refills - MegaRed Letcher-3 Krill Oil 350 MG Oral Capsule once [...] refills - Sudafed 30 MG Oral Tablet 0sts3-7p 0 days, 0 refills - Warfarin Sodium [...] 12/15/2017 L4-5 Posterior Decompression and Fusion @ [facility] [place] 11/07/2019 T12 Kyphyoplasty - Back surgery 11/2019-Kypho [...] Care Team - FATOUMATA LESLIE MD - COPIER OPERATOR
--- OUTSIDE RECORDS SUMMARY | 2025-03-13 14:48 | XMS_ITS | Encounter Summary ---
Author Organization [employer] ([place], [place], [place], [place], [place]) Address [address] [place] [address] Care Team Providers Care Packaging Designer Name Role Phone Sakina Gentilet Primary Care Provider [phone] Encounter Details Date Type Department Care Team (Late st Contact Info) Description 12/14/2018 Transcribed Document [facility] [place] [facility] [place] [address] ProviderArt MD [address] [place] [id number] Social History Tobacco Use Types Packs/Day [...] 12/14/2018 14:52 EDT by NICHOLE ARIZMENDI, Care Management-Eligibility Consultant Final Discharge Planning Discharge Arrangements : Patient Post-Acute Information Patient Name: UZAIR MADERA Gender: Female : 44 Age: 78 Years No Post-Acute Placement(s) Listed No Post-Acute Service(s) Listed No [place] Referral(s) Listed Discharge To Care Management : Home Health Services (Related/SOC within 3 days)-06 NICHOLE ARIZMENDI, Care Management-Eligibility Consultant - 12/14/2018 14:52 EDT Final Narrative Note Final Narrative Note : [facility], PT HAS HER OWN MACHINE TO CHEDK HER INR. SHE IS FOLLOWED BY CARDIOLOGY NICHOLE QUINTERO, Care Management-Eligibility Consultant - 12/14/2018 14:52 EDT documented in this encounter Plan of Treatment Not on file documented as of this encounter Visit Diagnoses Not on filedocumented in this encounter Care Teams Packaging Designer Relationship Specialty Start Date End Date Ferny Gentile [address] [place] [phone] PCP - General 05/22/22 documented as of this encounter
--- OUTSIDE RECORDS SUMMARY | 2025-03-13 14:48 | XMS_ITS | Encounter Summary ---
Author Organization [employer] ([place], [place], [place], [place], [place]) Address [address] [place] [address] Care Team Providers Care Supervisor Wet End Name Role Phone SeferinoSakinat Primary Care Provider [phone] Encounter Details Date Type Department Care Team (Late st Contact Info) Description 12/14/2018 Transcribed Document [facility] [place] [facility] [place] [address] ProviderArt MD [address] [place] [address] Social History Tobacco Use Types Packs/Day [...] Amos Robertson RN - 12/14/2018 22:53 EDT documented in this encounter Plan of Treatment Not on file documented as of this encounter Visit Diagnoses Not on filedocumented in this encounter Care Teams Supervisor Wet End Relationship Specialty Start Date End Date Ferny Gentile [address] [place] [address] PCP - General 05/22/22 documented as of this encounter
--- OUTSIDE RECORDS SUMMARY | 2025-03-13 14:48 | XMS_ITS | Encounter Summary ---
Author Organization [employer] ([place], [place], [place], [place], [place]) Address [address] [place] [address] Care Team Providers Care Net Programmer Name Role Phone Ferny Gentile Primary Care Provider [phone] Encounter Details Date Type Department Care Team (Late st Contact Info) Description 12/14/2018 Transcribed Document [facility] [place] [facility] [place] [address] ProviderArt MD [address] [place] [address] Social History Tobacco Use Types Packs/Day [...] Performed On: 12/14/2018 11:03 EDT by NIA MARROQUIN PT General Information, PT Visit Type, PT [...] Glasses Assistive Devices : Assistive Devices Cane NIA MARROQUIN, PT - 12/14/2018 11:16 EDT [...] NIA MARROQUIN, PT - 12/14/2018 11:16 EDT Copy Chaser Goals Other PT LTG Grid Goal #1 [...] on filedocumented in this encounter Care Teams Net Programmer Relationship Specialty Start Date End Date Seferino Ferny [address] [place] [address] PCP - General 05/22/22 documented as of this encounter
--- OUTSIDE RECORDS SUMMARY | 2025-03-13 14:48 | XMS_ITS | Encounter Summary ---
Author Organization [employer] ([place], [place], [place], [place], [place]) Address [address] [place] [address] Care Team Providers Care Director Health Name Role Phone Ferny Gentile Primary Care Provider [phone] Encounter Details Date Type Department Care Team (Late st Contact Info) Description 12/14/2018 Transcribed Document [facility] [place] [facility] [place] [address] ProviderArt MD [address] [place] [id number] Social History Tobacco Use Types Packs/Day [...] ipratropium 42 mcg/inh (0.06%) nasal spray 2 Paia, Nasal, BID Konsyl , Oral, Daily magnesium [...] Apical HR 74 (DEC 14:14) 74 (DEC 14 06:14) 74 (DEC 14:14) Mon HR 77 (DEC [...] chemo. No radiation. TIME SPENT 45 MINUTES Electronically signed by Marilou [facility] Conversion [employer]ed[employer] Consultant Cerner at 08/18/2022 11:32 AM CDT documented in this encounter Plan of Treatment Not on file documented as of this encounter Visit Diagnoses Not on filedocumented in this encounter Care Teams Director Health Relationship Specialty Start Date End Date Ferny Gentile [address] [place] [phone] PCP - General 05/22/22 documented as of this encounter
--- OUTSIDE RECORDS SUMMARY | 2025-03-13 14:48 | XMS_ITS | Encounter Summary ---
Author Organization [employer] ([place], [place], [place], [place], [place]) Address [address] [place] [address] Care Team Providers Care Sales Audit Clerk Name Role Phone Douglas Gentileght Primary Care Provider [phone] Encounter Details Date Type Department Care Team (Late st Contact Info) Description 12/14/[address] [facility] [place] [facility] [place] [address] ProviderArt MD [address] [place] [id number] Social History Tobacco Use Types Packs/Day [...] Barley. Bulgur wheat. Millet. Bran muffins. Popcorn. [place] wafer crackers. Vegetables Sweet potatoes. Spinach. Kale. Artichokes. Cabbage. Broccoli. Green peas. Carrots. Squash. Fruits Berries. Pears. Apples. Oranges. Avocados. Prunes and raisins. Dried figs. Meats and Other Protein Sources Louann, kidney, shrestha, and soy beans. Split peas. [...] zuri has 11 g of protein. ?? Bryant seeds - 1 oz has 5.5 g [...] floor. ?? Place frequently used items in [id number] places ?? Keep electrical cables out of [...] ?? Using the bathroom. ?? Using household software clerk or toxic chemicals. ?? Touching or taking [...] 5. Step down with your stronger leg. documented in this encounter Plan of Treatment Not on file documented as of this encounter Visit Diagnoses Not on filedocumented in this encounter Care Teams Sales Audit Clerk Relationship Specialty Start Date End Date Ferny Gentile [address] [place] [phone] PCP - General 05/22/22 documented as of this encounter
--- OUTSIDE RECORDS SUMMARY | 2025-03-13 14:48 | XMS_ITS | Clinical Summary ---
Author Organization [facility] , [facility] Address [address] [place] [address] Phone Care Team Providers Care Field Service Engineer Name Role Phone MARIAMA MORALEZ, FATOUMATA Blanco Primary Care Provider [phone] Camila MORALEZ, Alanna Bowen Unavailable [phone] Reason for Visit and Chief Complaint Follow Up Problems Includes: Problems addressed during this encounter and other active Problems All Visits Onset Date Resolved Date Provider Condition S tatus Joint Pain Wrist Right 04/17/2022 Ceci Santos APRN Active Last Documented On 2 1:05PM ; [facility] Joint Pain Right Thumb 04/17/2022 Ceci griffin APRN Active Last Documented On 2 1:05PM ; [facility] Midback Pain 10/17/2020 Brandon Wilks MD Acti ve Last Documented On 1 2:32PM ; [facility] Joint Pain Left Knee 02/16/2020 Eliseo Cuevas MD Active Last Documented On 0 1:26PM ; [facility] Joint Pain Right Knee 10/29/2016 Alanna castaneda MD Active Last Documented On 7 10:32AM ; [facility] Pain in Lumbar Spine 03/13/2016 Alanna krause MD Active Last Documented On 6 1:07PM ; [facility] Joint Pain Hip Left 03/13/2016 Alanna chin MD Active Last Documented On 6 1:09PM ; [facility] Joint Pain Knee 03/10/2012 Alanna Jessi Pereira Active Last Documented On 2 10:37AM ; [facility] Plan of Treatment 1. Patient's diagnoses and [...] - Last Documented On 03/10/2024 4:11PM ; [facility] Assessments Includes: Assessments from this encounter Findings 1. Ulnar sided right wrist pain - Last Documented On 03/10/2024 4:11PM ; [facility] 2. 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 - Last Documented On 03/10/2024 4:11PM ; [facility] Medical Equipment - Implanted Devices Includes: Current Devices No Medical Equipment Recorded Medications Includes: Medications discussed during this encounter and other current Medications Discontinued / Stopped on this date on 10/20/2019 Osteo Bi-Flex Joint Shield Oral Tablet Pr ovider: Diagnosis: Last Documented On 4 11:28AM By Clint Rocha ; [facility] Myrbetriq 25 MG Oral Tablet Extended Release 24 Hour Provider: Diagnosis: Last Documented On 4 11:28AM By Clint Rocha ; [facility] MiraLax Oral Powder Provider: Diagnosis: Last Documented On 4 11:28AM By Clint Rocha ; [facility] EQ Restore Plus Lubricant Eye 0.5% Ophthalmic Solution Provider: Diagnosis: Last Documented On 4 11:35AM By Clint Rocha ; [facility] Ipratropium Farwell 0.03% Nasal Solution Provider: Diagnosis: Last Documented On 4 11:28AM By Clint Rocha ; [facility] Calcium-Magnesium 100-50 MG Oral Tablet P rovider: Diagnosis: Last Documented On 4 11:28AM By Clint Rocha ; [facility] Current Medications (continue as prescribed) Colestipol HCl 5 GM Oral Packet 04/14/2024 Provider: Diagnosis: Last Documented On 4 11:25AM By Carla Hall ; [facility] Protonix 20 MG Oral Tablet Delayed Release 06/16/2022 Provider: Diagnosis: Last Documented On 3 4:00PM By Elif Chicas ; [facility] Flecainide Acetate 100 MG Oral Tablet 06/16/2022 Pro vider: Diagnosis: Last Documented On 3 4:01PM By Elif Chicas ; [facility] Metoprolol Succinate ER 25 M G Oral Tablet Extended Release 24 Hour 06/12/2022 Provider: Diagnosis: Last Documented On 3 4:00PM By Elif Chicas ; [facility] predniSONE 10 MG Oral Tablet 05/02/2022 Provider: FATOUMATA LESLIE MD Diagnosis: Last Documented On 3 4:00PM By Elif Chicas ; [facility] Lagevrio 200 MG Oral Capsule 04/22/2022 Provider: FATOUMATA LESLIE MD Diagnosis: Last Documented On 3 4:00PM By Elif Chicas ; [facility] Lagevrio 200 MG Oral Capsule 04/22/2022 Provider: FATOUMATA LESLIE MD Diagnosis: Last Documented On 3 4:00PM By Elif Chicas ; [facility] Mupirocin 2% External Ointment 04/16/2022 Provider: Eliseo Cuevas MD Diagnosis: three times a day Apply to n ostrils 3 time a day 5 days prior to surgery. Last Documented On 2 2:50PM By Gilda Kamara ; [facility], [facility] MegaRed Fyffe-3 Krill Oil 350 MG Oral Capsule 10/26/19 21 Provider: Diagnosis: Last Documented On 1 1:15PM By Betzaida Donald ; [facility] Sudafed 30 MG Oral Tablet 10/25/2020 Provider: Diagnosis: Last Documented On 1 1:15PM By Betzaida Donald ; [facility], [facility] Mucinex Allergy 180 MG Oral Tablet 10/25/2020 Provid er: Diagnosis: Last Documented On 1 1:14PM By Betzaida Donald ; [facility] Warfarin Sodium 7.5 MG Oral Tablet 10/17/2020 Provid er: Diagnosis: Last Documented On 1 2:43PM By Greer Kingston ; [facility] Ezetimibe 10 MG Oral Tablet 09/11/2020 Provider: FATOUMATA LESLIE MD Diagnosis: Last Documented On 1 1:13PM By Betzaida Donald ; [facility] Digoxin 125 MCG Oral Tablet 07/21/2020 Provider: Diagnosis: Last Documented On 1 2:44PM By Greer Kingston ; [facility] CoQ-10 10 MG Oral Capsule 10/20/2019 Provider: Diagnosis: Last Documented On 0 4:01PM By Greer Kingston ; [facility] D3-1000 25 MCG (1000 UT) Oral Capsule 10/20/2019 Pro vider: Diagnosis: Last Documented On 0 4:00PM By Greer Kingston ; [facility] Omeprazole 20 MG Oral Ta blet Delayed Release Disintegrating 10/20/2019 Provider: Diagnosis: Last Documented On 0 3:59PM By Greer Kingston ; [facility] Probiotic Maximum Strength Oral Capsule 10/20/2019 Provider: Diagnosis: Last Documented On 0 3:58PM By Greer Kingston ; [facility] Citalopram Hydrobromide 10 MG Oral Tablet 10/20/2019 Provider: Diagnosis: Last Documented On 0 3:56PM By Greer Kingston ; [facility] Flecainide Acetate 100 MG Oral Tablet 10/20/2019 Pro vider: Diagnosis: Last Documented On 0 3:55PM By Greer Kingston ; [facility] Past Medications on file oxyCODONE HCl 5 MG Oral Tablet 05/29/2022 - 06/03/2022 Provider: Eliseo ceja MD Diagnosis: 1-2 po q 4-6h Last Documented On 3 12:32PM By Hima Cuevas ; [facility] traMADol HCl 50 MG Oral Tablet 05/29/2022 - 06/03/2022 Provider: Eliseo ceja MD Diagnosis: 1-2 po q 4-6h Last Documented On 3 12:32PM By Hmia Cuevas ; [facility] Lovenox 40 MG/0.4ML Injection Solution Prefilled Syringe 05/26/2022 - 05/30/2022 Provider: Eliseo ceja MD Diagnosis: 1 sub q injection 1 time day Last Documented On 3 8:35AM By Hima Cuevas ; [facility] Cefadroxil 500 MG Oral Capsule 05/21/2022 - 05/24/2022 Provider: Eliseo ceja MD Diagnosis: twice a day Last Documented On 3 12:08PM By Hima Cuevas ; [facility] Colace 100 MG Oral Capsule 05/21/2022 - 08/19/2022 Provider: Eliseo ceja MD Diagnosis: 1-2 tabs daily Last Documented On 3 12:08PM By Hima Cuevas ; [facility] traMADol HCl 50 MG Oral Tablet 05/21/2022 - 05/26/2022 Provider: Eliseo ceja MD Diagnosis: 1-2 po q 4-6h Last Documented On 3 12:08PM By Hima Cuevas ; [facility] Acetaminophen 500 MG Oral Tablet 05/21/2022 - 06/20/2022 Provider: Eliseo Cuevas MD Diagnosis: 2 three times a day Last Documented On 3 12:08PM By Hima Cuevas ; [facility] oxyCODONE HCl 5 MG Oral Tablet 05/21/2022 - 05/26/2022 Provider: Eliseo ceja MD Diagnosis: 1-2 po q 4-6h Last Documented On 3 12:08PM By Hima Cuevas ; [facility] Ondansetron HCl 4 MG Oral Tablet 05/21/2022 - 05/26/2022 Provider: Eliseo Cuevas MD Diagnosis: 9yma5-0o Last Documented On 3 12:08PM By Hima Cuevas ; [facility] Meloxicam 15 MG Oral Tablet 05/21/2022 - 06/20/2022 Provider: Eliseo ceja MD Diagnosis: once a day Last Documented On 3 12:08PM By Hima Cuevas ; [facility] HYDROcodone-Acetaminophen 7. 5-325 MG Oral Tablet 10/25/2020 - 11/14/2020 Provider: Brandon Wilks MD Diagnosis: twice a day Last Documented On 1 12:08PM By Dr. Wilks ; [facility] [place] 5-325MG Oral Tablet 12/23/2018 - 01/22/2019 Provider: Eliseo ceja MD Diagnosis: 1-2 po q6h prn pain Last Documented On 9 3:09PM By Reanna Gutierrez ; [facility] Acetaminophen 500MG Oral Tablet 12/08/2018 - 01/07/2019 Provider: Eliseo Cuevas MD Diagnosis: 2 three times a day FOR BACON RGERY DO NOT FILL UNTIL 12/14/18 Last Documented On 9 4:10PM By Reanna Gutierrez ; [facility] traMADol HCl 50MG Oral Tablet 12/08/2018 - 12/13/2018 Provider: Eliseo ceja MD Diagnosis: 1-2 po q6h prn pain FOR BACON RGERY DO NOT FILL UNTIL 12/14/18 Last Documented On 9 4:06PM By Reanna Gutierrez ; [facility] Neurontin 300MG Oral Capsule 12/08/2018 - 03/08/2019 Provider: Eliseo ceja MD Diagnosis: 1 every bedtime FOR SURGER Y DO NOT FILL UNTIL 12/14/18 Last Documented On 9 4:05PM By Reanna Gutierrez ; [facility] Dilaudid 2MG Oral Tablet 12/08/2018 - 12/10/2018 Provi gaby: Eliseo Cuevas MD Diagnosis: 1-2 po q6h prn pain (RESCUE PAIN) FOR SURGERY DO NOT FILL UNTIL 12/14/18 Last Documented On 9 4:05PM By Reanna Gutierrez ; [facility] Colace 100MG Oral Capsule 12/08/2018 - 03/08/2019 Provider: Eliseo ceja MD Diagnosis: 1-2 tabs daily FOR SURGERY DO NOT FILL UNTIL 12/14/18 Last Documented On 9 4:10PM By Reanna Gutierrez ; [facility] Mupirocin 2% External Ointment 11/09/2018 - 11/14/2018 Provider: Eliseo ceja MD Diagnosis: Apply to nostrils 3 time a d ay 5 days prior to surgery. Last Documented On 9 10:40AM By Gilda Kamara ; [facility] [place] 5-325MG Oral Tablet 12/24/2017 - 12/31/2017 Prov ider: Brandon Wilks MD Diagnosis: 1-2 po q 4-6h PRN Last Documented On 8 5:31PM By Dr. Wilks ; [facility] [place] 7.5-325 MG OR TABS 12/24/2017 - 01/03/2018 Provi gaby: Brandon Wilks MD Diagnosis: Last Documented On 8 11:35AM By Marcelle Croft ; [facility] Voltaren Gel 1% External 10/14/2017 - 12/13/2017 Provi gaby: Alanna Jensen MD Diagnosis: use as directed Last Documented On 8 10:09AM By Sayra Evans ; [facility] Lovenox 40MG/0.4ML Subcutaneous Solution 05/06/2017 - 05/26/2017 Provider: Alanna castaneda MD Diagnosis: use as directed/1 INJECTION PER DAY FOR 5 DAYS PRIOR TO PROCEDER & 1 INJECTION PER DAY FOR 5 DAYS AFTER PROCERDER/ Last Documented On 8 4:29PM By Sayra Evans ; [facility], [facility] [place] 5-325 MG Tablet 10/29/2016 - 11/05/2016 Provider : Alanna Jensen MD Diagnosis: 1-2 po q 4-6h PRN Last Documented On 7 11:55AM By Camryn Paez ; [facility] Medrol 4 MG Tablet Therapy Pack 02/14/2016 - 02/20/2016 Provider: Alanna chin MD Diagnosis: use as directed by pharmacy Last Documented On 6 3:16PM By Heather Langley ; [facility] [place] 5-325 MG Tablet 12/03/2015 - 12/18/2015 Provider : Alanna Jensen MD Diagnosis: 1-2 po q 4-6h Last Documented On 6 1:26PM By Heather Langley ; [facility] [place] 7.5-325 MG Tablet 11/16/2015 - 12/16/2015 Provid er: Alanna Jensen MD Diagnosis: 1 every 4 - 6 hours PO PRN Last Documented On 6 2:09PM By Lani Marquez ; [facility] Voltaren 1% TD GEL 01/31/2013 - 03/02/2013 Provider: Alanna Jensen MD Diagnosis: DEGENERATIVE MIKEY NT DISEASE KNEE apply 4 grams to affected ar ea 4 times a day//ks Last Documented On 3 2:16PM By Ann Marie Sutherland ; [facility] Lortab 10-500 MG OR TABS 09/14/2012 - 09/21/2012 Provi gaby: Alanna Jensen MD Diagnosis: [phone] [facility] jsb/df Last Documented On 3 8:56AM By Jose F Gutierrez ; [facility] Lortab 10-500 MG OR TABS 08/06/2012 - 08/13/2012 Provi gaby: Alanna Jensen MD Diagnosis: [phone] [facility] jsb/df Last Documented On 3 1:59PM By Jose F Gutierrez ; [facility] Lortab 10-500 MG OR TABS 07/09/2012 - 07/16/2012 Provi gaby: Alanna Jensen MD Diagnosis: [phone] [facility] jsb Last Documented On 3 12:36PM By Jose F Gutierrez ; [facility] Lortab 10-500 MG OR TABS 07/01/2012 - 07/08/2012 Provi gaby: Alanna Jensen MD Diagnosis: [phone] [facility] df Last Documented On 3 1:53PM By Jose F Gutierrez ; [facility] Xarelto 10 MG OR TABS 06/14/2012 - 07/05/2012 Provider : Alanna Jensen MD Diagnosis: sx on 06-15-12kw Last Documented On 3 1:31PM By Danielle Dobson ; [facility] Lortab 10-500 MG OR TABS 06/14/2012 - 06/21/2012 Provi gaby: Alanna Jensen MD Diagnosis: sx on 06-15-12kw Last Documented On 3 1:31PM By Danielle Dobson ; [facility], [facility] Medications Administered Includes: Administered Medications from this [...] 04/14/2024 Last Documented On 4 11:35AM ; [facility] Not a current smoker. 04/14/2024 Last Documented On 4 11:35AM ; [facility] Tobacco non-user 04/14/2024 Last Documented On 4 11:35AM ; [facility] Alcohol use 10/25/2020 Last Documented On 4 11:35AM ; [facility] Not using drugs 10/25/2020 Last Documented On 4 11:35AM ; [facility] Recent change in diet 10/25/2020 Last Documented On 4 11:35AM ; [facility] Non-smoker 10/17/2020 Last Documented On 4 11:35AM ; [facility] No caffeine use 10/17/2020 Last Documented On 4 11:35AM ; [facility] Not a current smoker. 10/17/2020 Last Documented On 4 11:35AM ; [facility] No tobacco use 10/31/2019 Last Documented On 4 11:35AM ; [facility] Not a current smoker 10/31/2019 Last Documented On 4 11:35AM ; [facility] Not exercising regularly 10/31/2019 Last Documented On 4 11:35AM ; [facility] Smoking status : Never smoker 10/31/2019 Last Documented On 4 11:35AM ; [facility] Procedures and Surgical History Surgical History Last Updated History of back surgery 11/2019-Kypho T1 2 10/17/2020 Last Documented On 4 11:35AM ; [facility] History of heart surgery ablation 2017 0 10/31/2019 Last Documented On 4 11:35AM ; [facility] History of total hip replacement left hi p 201810/31/2019 Last Documented On 4 11:35AM ; [facility] History of total knee arthroplasty right knee 201210/31/2019 Last Documented On 4 11:35AM ; [facility] History of hysterectomy 10/16/2014 Last Documented On 4 11:35AM ; [facility] Medical History Includes: Medical History addressed during this encounter Description Last Updated Recent immunization for flu 02/01/2022 1 06/15/2023 Last Documented On 4 11:35AM ; [facility] Recent immunization for pneumococcal pne umonia 2014 04/14/2024 Last Documented On 4 11:35AM ; [facility] History of Irregular Heartbeat A-fib; ep isode after TKA- cadiovert needed 06/16/2022 Last Documented On 4 11:35AM ; [facility] blood transfusions 10/25/2020 Last Documented On 4 11:35AM ; [facility] Arthritis 10/25/2020 Last Documented On 4 11:35AM ; [facility] Heartburn / Acid Reflux 10/25/2020 Last Documented On 4 11:35AM ; [facility] History of Blood Clots 10/25/2020 Last Documented On 4 11:35AM ; [facility] History of Blood Transfusion 10/25/2020 Last Documented On 4 11:35AM ; [facility] History of Cancer 10/25/2020 Last Documented On 4 11:35AM ; [facility] History of Fractures 10/25/2020 Last Documented On 4 11:35AM ; [facility] History of heart disease 10/25/2020 Last Documented On 4 11:35AM ; [facility] Hypertension 10/25/2020 Last Documented On 4 11:35AM ; [facility] Irregular Heartbeat 10/25/2020 Last Documented On 4 11:35AM ; [facility] Past Surgical History: wrist repair ~hand sx ~gallstone sx 2011 ~mastectomy and reconstruction ~colonoscopy 2018 10/25/2020 Last Documented On 4 11:35AM ; [facility] Previous Fractures 10/25/2020 Last Documented On 4 11:35AM ; [facility] Sleep Apnea 10/25/2020 Last Documented On 4 11:35AM ; [facility] Use of CPAP 10/25/2020 Last Documented On 4 11:35AM ; [facility] Back surgery 12/15/2017 L4-5 Posterior Decompression and Fusion @ [facility] ~11/07/2019 T12 Kyphyoplasty 10/25/2020 Last Documented On 4 11:35AM ; [facility] Heart surgery pacemaker 12/2019 ~Afib ab lation 10/25/2020 Last Documented On 4 11:35AM ; [facility] History of Gallbladder 10/25/2020 Last Documented On 4 11:35AM ; [facility] Hysterectomy 10/25/2020 Last Documented On 4 11:35AM ; [facility] Total hip replacement 12/2018-Left hip 0 10/17/2020 Last Documented On 4 11:35AM ; [facility] A previous fracture 10/31/2019 Last Documented On 4 11:35AM ; [facility] Gallbladder disease 2018 10/31/2019 Last Documented On 4 11:35AM ; [facility] History of diverticulitis of colon 11/15 Last Documented On 4 11:35AM ; [facility], [facility] History of osteoporosis 11/16/2015 Last Documented On 4 11:35AM ; [facility] A history of cancer 10/16/2014 Last Documented On 4 11:35AM ; [facility], [facility] Arthritic joint problems 10/16/2014 Last Documented On 4 11:35AM ; [facility], [facility] Family History Includes: Family History addressed during this encounter Description Last Updated Family history of cancer mother ~father 11/16/2015 Last Documented On 4 11:35AM ; [facility] Family history of diabetes mellitus moth er 11/16/2015 Last Documented On 4 11:35AM ; [facility] Family history of heart disease mother ~ father 11/16/2015 Last Documented On 4 11:35AM ; [facility] Family history of hypertension mother ~f ather 11/16/2015 Last Documented On 4 11:35AM ; [facility] Family history of osteoporosis mother Last Documented On 4 11:35AM ; [facility] Family history of rheumatoid arthritis m other 11/16/2015 Last Documented On 4 11:35AM ; [facility] Family history of thromboembolic disease mother 11/16/2015 Last Documented On 4 11:35AM ; [facility] Maternal history of hypertension 015 Last Documented On 4 11:35AM ; [facility] Maternal history of osteoporosis 015 Last Documented On 4 11:35AM ; [facility] Review of Systems Includes: Review of Systems [...] ctive Last Documented On 4 12:09PM ; [facility] Statins Support Allergy 06/09/2017 Act citlalli Last Documented On 4 12:09PM ; [facility] Percocet Allergy 03/10/2012 Active Last Documented On 4 12:09PM ; [facility] Bactrim Allergy 11/16/2015 Active Last Documented On 4 12:09PM ; [facility] Encounters Encounter Provider Location Date Check-In Time Check- Out Time Diagnosis Follow Up Ceci Santos APRN [facility] 4 11:24AM 12:17PM Insurance Includes: Active Insurance Policies Plan Name Member ID Group # Subscriber Relationship Effect citlalli Dates 1 - Medicare Part B of [place] [id number] Luz Skaggs Self 04/03/2007 - Unknown 2 - [employer] [id number] PLAN F Luz Skaggs Self 2011 - Unknown Clinical Notes Includes: Clinical Notes from this encounter * Progress note Date Encounter Last Documented by 03/03/2024 Follow Up Last documented on 03/10/2024; 4:11 PM, Ceci Santos APRN; [facility], [facility] Active Problems & Conditions - Joint Pain [...] Capsule 5 days, 0 refills - MegaRed Fyffe-3 Krill Oil 350 MG Oral Capsule once [...] refills - Sudafed 30 MG Oral Tablet [id number] 0 days, 0 refills - Warfarin Sodium [...] 12/15/2017 L4-5 Posterior Decompression and Fusion @ [place] 11/07/2019 T12 Kyphyoplasty - Total hip replacement [...] Care Team - FATOUMATA LESLIE MD - OUTREACH CONSULTANT
--- OUTSIDE RECORDS SUMMARY | 2025-03-13 14:48 | XMS_ITS | Encounter Summary ---
Author Organization [employer] ([place], [place], [place], [place], [place]) Address [address] [place] [address] Care Team Providers Care Alteration Worker Name Role Phone SeferinoSakinat Primary Care Provider [phone] Encounter Details Date Type Department Care Team (Late st Contact Info) Description 12/14/2018 Transcribed Document [facility] [place] Family Medicine [facility] [place] [address] ProviderArt MD [address] [place] [address] Social History Tobacco Use Types Packs/Day [...] Amos Robertson RN - 12/15/2018 1:35 EDT Electronically signed by Marilou [facility] Conversion Managing Jeweler Cerner at 08/18/2022 11:25 AM CDT documented in this encounter Plan of Treatment Not on file documented as of this encounter Visit Diagnoses Not on filedocumented in this encounter Care Teams Alteration Worker Relationship Specialty Start Date End Date Ferny Gentile [address] [place] [address] PCP - General 05/22/22 documented as of this encounter
--- OUTSIDE RECORDS SUMMARY | 2025-03-13 14:48 | XMS_ITS | Encounter Summary ---
Author Organization [employer] ([place], [place], [place], [place], [place]) Address [address] [place] [address] Care Team Providers Care Derrick Worker Well Service Name Role Phone Ferny Gentile Primary Care Provider [phone] Encounter Details Date Type Department Care Team (Late st Contact Info) Description 12/14/2018 Transcribed Document [facility] [place] [facility] [place] [address] ProviderArt MD [address] [place] [address] Social History Tobacco Use Types Packs/Day [...] LOKI BLANTON OTR/Buck - 12/15/2018 10:58 EDT Water Taxi Operator Goals, OT Other LTG Grid Goal #1 [...] 12/15/2018 EDT 12/15/2018 EDT 12/15/2018 EDT LOKI BLANOTN OTR/Buck - 12/15/2018 10:58 EDT LOKI BLANTON OTR/Buck - 12/15/2018 10:58 [...] on filedocumented in this encounter Care Teams Derrick Worker Well Service Relationship Specialty Start Date End Date Ferny Gentlie [address] [place] [address] PCP - General 05/22/22 documented as of this encounter
--- OUTSIDE RECORDS SUMMARY | 2025-03-13 14:48 | XMS_ITS | Clinical Summary ---
Author Organization Healthcare Address [address] [place] [address] Care Team Providers Care Time Checker Name Role Phone Ferny Gentile MD Primary Care Provider [phone] Family History Medical History Relation Name Comments [...] of Treatment Not on file Care Teams Time Checker Relationship Specialty Start Date End Date Ferny Gentile MD [address] [facility] [address] [place] [address] PCP - General 09/14/20
--- OUTSIDE RECORDS SUMMARY | 2025-03-13 14:48 | XMS_ITS | Encounter Summary ---
Author Organization [employer] ([place], [place], [place], [place], [place]) Address [address] [place] [address] Care Team Providers Care Tariff Clerk Name Role Phone Ferny Gentile Primary Care Provider [phone] Encounter Details Date Type Department Care Team (Late st Contact Info) Description 12/14/2018 Transcribed Document [facility] [place] Family Medicine [facility] [place] [address] ProviderArt MD [address] [place] [address] Social History Tobacco Use Types Packs/Day [...] Conversion Note - Historical ProviderMD - 12/14/2018 11:29 AM CDT Treatment [...] Place : Fall prevention measures SAFIA BURGOS [facility] - 12/15/2018 12:46 EDT General Status Patient [...] Treatment Time : 44 Minute(s) SAFIA BURGOS PTA 12/15/2018 12:46 EDT Edu Topics Physical Therapy Education Grid Gait Training : Verbalizes understanding, Returns demonstration Stair Training : Verbalizes understanding, Returns demonstration Therapeutic Exercises : Returns demonstration, Verbalizes understanding SAFIA BURGOS PTA - 12/15/2018 12:46 EDT Plan of Care, PT PT Tx Plan/Goals Established w Patient : Yes SAFIA BURGOS [facility] 12/15/2018 12:46 EDT Central Office Installer Goals Other PT LTG Grid Goal #1 [...] EDT 12/15/2018 EDT 12/15/2018 EDT SAFIA BURGOS, COMMERCIAL JOURNEYMAN ELECTRICIAN - 12/15/2018 12:46 EDT CHARLENE BURGOSIN, COMMERCIAL JOURNEYMAN ELECTRICIAN - 12/15/2018 12:46 EDT AUBREYCHARLENEIN, [facility] - 12/15/2018 12:46 EDT SAFIA BURGOS, [facility] - 12/15/2018 12:46 EDT Treatment Note Subjective [...] All goals met. Anticipated d/c home today. CHARLENE BURGOSBARBIE WATSON - 12/15/2018 12:46 EDT Pain Assessment Pain Comment : 12/11 pain in left hip. Patient agreed to being pre-medicated prior to therapy. CHARLENE BURGOSBARBIE WATSON - 12/15/2018 12:46 EDT Image 1 - Images currently included in the form version of this document have not been included in the text rendition version of the form. [place] PT Charges PT Therap. Exercise 15 min : 2 Gait Training Each 15 Min : 1 CHARLENE BURGOSBARBIE WATSON - 12/15/2018 12:46 EDT documented in this encounter Plan of Treatment Not on file documented as of this encounter Visit Diagnoses Not on filedocumented in this encounter Care Teams Tariff Clerk Relationship Specialty Start Date End Date Seferino Ferny [employer] [place] [address] PCP - General 05/22/22 documented as of this encounter
--- OUTSIDE RECORDS SUMMARY | 2025-03-13 14:48 | XMS_ITS | Encounter Summary ---
Author Organization [employer] ([place], [place], [place], [place], [place]) Address [address] [place] [address] Care Team Providers Care Utilization Review Rn Name Role Phone Ferny Gentile Primary Care Provider Encounter Details Date Type Department Care Team (Late st Contact Info) Description 12/14/2018 Transcribed Document [facility] [place] Family Medicine [facility] [place] [address] ProviderArt MD [address] [place] [address] Social History Tobacco Use Types Packs/Day [...] on filedocumented in this encounter Care Teams Utilization Review Rn Relationship Specialty Start Date End Date Ferny Gentile [address] [place] [address] PCP - General 05/22/22 documented as of this encounter
--- OUTSIDE RECORDS SUMMARY | 2025-03-13 14:48 | XMS_ITS | Encounter Summary ---
Author Organization [employer] ([place], [place], [place], [place], [place]) Address [address] [place] [address] Care Team Providers Care Diffuser Operator Name Role Phone Ferny Gentile Primary Care Provider [phone] Encounter Details Date Type Department Care Team (Late st Contact Info) Description 12/14/2018 Transcribed Document [facility] [place] Family Medicine [facility] [place] [address] ProviderArt MD [address] [place] [address] Social History Tobacco Use Types Packs/Day [...] OR IntraOp Summary Primary Physician: MATTHEW BANEGAS MD-ORT Finalized Date/Time: 12/14/18 11:15:55 Pt. Name: UZAIR SKAGGS /Sex: 1940 Female Med Rec #: [id number] Physician: MATTHEW BANEGAS MD-ORTheo Financial #: [id number] Pt. Type: I Room/Bed: [facility]/ Admit/Disch: 12/14/18 04:48:00 - Institution: [facility] IntraOp Case Attendance Entry 1 Entry 2 Entry 3 Case Attendee MATTHEW BANEGAS LUNSFORD, JAMES, DOWEL INSPECTOR GARRETT JARAMILLO, RM MORALEZ-ORT Role Performed Surgeon/Proceduralist, DOWEL INSPECTOR/Nurse Handle Sewer Physician orthopedic assistant First Time In 12/14/18 08:10:00 12/14/18 [...] Entry 6 Case Attendee Tiffany Carrero, ELENA BRAR CHAD, RAVEN Role Performed Steel Analyst, First Scrub, Supervisor Yard, First Time In 12/14/18 07:30:00 12/14/18 07:30:00 [...] Attendee OTHER, ATTENDEE Ryanne Buchanan Hill, Philip A, Rn Agency Service Representative Role Performed Vendor Business Assistant Scrub, First Time In 12/14/18 08:10:00 12/14/18 [...] LEININGER, SUSAN, RN Role Performed Scrub, Second Steel Analyst, Second Time In 12/14/18 08:15:00 12/14/18 09:20:00 Time Out 12/14/18 09:05:00 12/14/18 09:31:00 Procedure Hip Total Anterior Hip Total Anterior Approach Approach Other Attendee Superficial Wound Closed By: Last Modified By: Tiffany Carrero RN Wellnitz, Sara, RN 12/14/18 09:31:30 12/14/18 09:31:30 [facility] Intra[facility] Case Attendance Audit 12/14/18 09:31:50 Medical Cash Poster: LUIS Modifier: LUIS 3 <+> Role Performed 3 <*> Procedure Hip Total Anterior Approach 12/14/18 09:31:30 Medical Cash Poster: LUIS Modifier: LUIS 1 <*> Procedure Hip [...] Procedure Hip Total Anterior Approach 12/14/18 09:21:19 Medical Cash Poster: LUIS Modifier: LUIS 4 <+> Time Out 4 <*> Procedure Hip Total Anterior Approach <+> 11 Case Attendee <+> 11 Role Performed <+> 11 Time In <+> 11 Procedure 12/14/18 09:19:23 Medical Cash Poster: LUIS Modifier: LUIS 8 <+> Time Out 8 <*> Procedure Hip Total Anterior Approach 12/14/18 09:10:59 Medical Cash Poster: WELLNISA Modifier: WELLNISA 5 <+> Time Out 5 <*> Procedure Hip Total Anterior Approach <+> 10 Case Attendee <+> 10 Role Performed <+> 10 Time In <+> 10 Time Out <+> 10 Procedure 12/14/18 09:04:01 Medical Cash Poster: REJIA Modifier: WELLNISA 1 <+> Time Out 1 <*> Procedure Hip Total Anterior Approach 7 <+> Time Out 7 <*> Procedure Hip Total Anterior Approach <+> 9 Case Attendee <+> 9 Role Performed <+> 9 Time In <+> 9 Procedure 12/14/18 08:38:47 Medical Cash Poster: REJIA Modifier: WELLNISA 6 <+> Time Out 6 <*> Procedure Hip Total Anterior Approach 12/14/18 08:37:27 Medical Cash Poster: REJIA Modifier: WELLNISA 3 <*> Time In 12/14/18 07:30:00 3 <*> Procedure Hip Total Anterior Approach 12/14/18 08:11:28 Medical Cash Poster: REJIA Modifier: WELLNISA 7 <*> Time In 12/14/18 07:30:00 7 <*> Procedure Hip Total Anterior Approach <+> 8 Case Attendee <+> 8 Role Performed <+> 8 Time In <+> 8 Procedure 12/14/18 08:10:47 Medical Cash Poster: REJIA Modifier: WELLNISA 1 <*> Time In 12/14/18 07:30:00 1 <*> Procedure Hip Total Anterior Approach 12/14/18 08:10:28 Medical Cash Poster: REJIA Modifier: WELLNISA 1 <+> Time In [...] [facility] Case Times Audit 12/14/18 09:31:27 Medical Cash Poster: LUIS Modifier: REJIA <+> 1 Out Room Time <+> 1 Stop Time 12/14/18 09:19:35 Medical Cash Poster: LUIS Modifier: WELLMARKOA <+> 1 Stop Time 12/14/18 08:10:57 Medical Cash Poster: LUIS Modifier: WELLMARKOA <+> 1 Start Time [...] 08:37:55 [facility] Cautery Audit 12/14/18 08:37:55 Medical Cash Poster: LUIS Modifier: LUIS 1 <*> Cautery Type [...] Skin Condition Unchanged After Cautery 12/14/18 08:10:52 Medical Cash Poster: LUIS Modifier: WELLMARKOA <+> 2 Cautery Type <+> 2 Coag [...] 08:07:35 [facility] IntraOp Communication Audit 12/14/18 08:13:51 Medical Cash Poster: LUIS Modifier: LUIS <+> 1 Date and [...] Modified By: Tiffany Carrero RN Wellnitz, Sara, MALISSA 12/14/18 08:07:55 12/14/18 09:10:01 [facility] Intra[facility] Counts Verification Audit 12/14/18 09:10:01 Medical Cash Poster: LUIS Modifier: LUIS 2 <*> Procedure Hip Total Anterior Approach 2 <+> Count Results 2 <+> Count Performed By (Scrub) 2 <+> Count Performed By (RN) [facility] Intra[facility] Counts Final Entry 1 Procedure Hip Total Anterior Approach Final Count Info Count Type Sponge, Sharps Counts Verification Skin Closure/end of Sequence procedure Count Results Correct, surgeon notified Counts Performed By Count Performed By ELENA VICTOR (Scrub) Count Performed By Tiffany Carrero RN (RN) Last Modified By: Tiffany Carrero RN 12/14/18 09:11:14 [facility] Intra[facility] Counts Final Audit 12/14/18 09:11:14 Medical Cash Poster: MEREMARKOJessi Modifier: MEREMARKOA 1 <*> Procedure Hip Total [...] IntraOp Drains and Tubes Audit 12/14/18 08:10:39 Medical Cash Poster: MEREMARKOJessi Modifier: LUIS 1 <*> Device Type Hemovac 1 <*> [...] RN 12/14/18 08:12:06 [facility] Intra[facility] General Case Retail Financial Analyst 1 Case Information OR OR 02 [facility] [place] Case Level 1 Room Verified Yes Wound Class I - Clean Specialty SN Orthopedic Anesthesia Type General ASA Class 3 Diagnosis Preop Diagnosis OA LEFT HIP Postop Diagnosis SEE POST OP NOTE Last Modified By: Tiffany Carrero RN 12/14/18 08:12:39 E IntraOp Implant Log Entry 1 Entry 2 Entry 3 Type Implant (Synthetic) Implant (Synthetic) Implant (Synthetic) Implant Log Implant Type Hardware Hardware Hardware Tissue Implant Type Implant SHELL ACETAB 52MM 3 LINER LGCL CUP 54MM SZ STEM HIP CLLR ORGN CX Identification [id number] Description Implant Quantity 1 1 1 Implant Site LEFT HIP LEFT HIP LEFT HIP Implant Identification Model Number Implant Identification Serial Number Implant [id number] Identification Lot Number Implant Paxeon Reconstruction Paxeon Reconstruction Paxeon Reconstruction Identification Java J2Ee Lead Name: Implant [id number] Identification Catalog Number Implant Size Implant Has an Yes Yes Yes Expiration Date Implant Expiration 08/02/23 10/02/23 09/01/23 Date Wasted Radioactive Material Time Implanted Tissue Implant Continue for Tissue Implant Documentation Tissue Identification Number Graft Prep Per Java J2Ee Lead Instructions: Tissue Preparation Method: Reconstitution Solution: Reconstitution Solution Lot Number Reconstitution Solution Expiration Date: Thawing Solution Thawing Solution Lot Number Thawing Solution Expiration Date Preparation Materials, Other Preparation Materials, Other Lot Number Preparation Materials, Other Expiration Date Tissue Prepared/Processed By Java J2Ee Lead Paperwork Completed Implant Type Comment Last Modified By: Tiffany Carrero, Tiffany Garcia RN Wellnitz, Sara, RN 12/14/18 08:31:02 12/14/18 08:36:29 12/14/18 09:06:08 Entry 4 Type Implant (Synthetic) Implant Log Implant Type Hardware Tissue Implant Type Implant HEAD FEM CERC SZ 36MM Identification [id number] Description Implant Quantity 1 Implant Site LEFT HIP Implant Identification Model Number Implant Identification Serial Number Implant [id number] Identification Lot Number Implant Paxeon Reconstruction Identification Java J2Ee Lead Name: Implant [id number] Identification Catalog Number Implant Size Implant Has an Yes Expiration Date Implant Expiration 06/03/23 Date Wasted Radioactive Material Time Implanted Tissue Implant Continue for Tissue Implant Documentation Tissue Identification Number Graft Prep Per Java J2Ee Lead Instructions: Tissue Preparation Method: Reconstitution Solution: Reconstitution Solution Lot Number Reconstitution Solution Expiration Date: Thawing Solution Thawing Solution Lot Number Thawing Solution Expiration Date Preparation Materials, Other Preparation Materials, Other Lot Number Preparation Materials, Other Expiration Date Tissue Prepared/Processed By Java J2Ee Lead Paperwork Completed Implant Type Comment Last Modified By: Tiffany Carrero RN 12/14/18 09:06:08 [facility] Intra[facility] Implant Log Audit 12/14/18 09:06:08 Medical Cash Poster: LUIS Modifier: WELLNISA <+> 3 Implant Identification Description <+> 3 Implant Identification Lot Number <+> 3 Implant Identification Java J2Ee Lead Name: <+> 3 Implant Expiration Date <+> 3 Implant Identification Catalog Number <+> 4 Implant Identification Description <+> 4 Implant Identification Lot Number <+> 4 Implant Identification Java J2Ee Lead Name: <+> 4 Implant Expiration Date <+> 4 Implant Identification Catalog Number 12/14/18 08:36:29 Medical Cash Poster: WELLNISA Modifier: WELLNISA <+> 2 Implant Identification Description <+> 2 Implant Identification Lot Number <+> 2 Implant Identification Java J2Ee Lead Name: <+> 2 Implant Expiration Date <+> 2 Implant Identification Catalog Number 12/14/18 08:31:02 Medical Cash Poster: WELLNISA Modifier: WELLNISA <+> 1 Implant Identification Description <+> 1 Implant Identification Lot Number <+> 1 Implant Identification Java J2Ee Lead Name: <+> 1 Implant Expiration Date <+> 1 Implant Identification Catalog Number 12/14/18 08:20:19 Medical Cash Poster: WELLNISA Modifier: WELLNISA <+> 4 Implant Has an [...] vancomycin 1Gm vial - ANESTHETIC 1000MG/10 ML [id number] COCKTAIL-BANEGAS [id number] Combo Med List Time Administered Route of [...] Tiffany Carrero, MALISSA, ROB STATON, RAVEN, [place], URMILA, KAMERON Position Verified Positioning Yes Verified by Anesthesia [...] Modified By: Tiffany Carrero RN 12/14/18 09:11:28 [facility] IntraOp Skin Prep Entry 1 Procedure Hip Total Anterior Approach Prescribed Yes Pre-Surgical Prep Completed Prep Area LEFT HIP; WIPE WITH ALCOHOL FIRST, THEN DURAPREP X 2 Intraop Prep Prep Agents DuraPrep, Alcohol Prep by Tiffany Carrero, MALISSA Hair Removal Methods No hair removal performed Last Modified By: Tiffany Crarero RN 12/14/18 08:15:23 [facility] IntraOp Surgical Procedures [...] [facility] Intra[facility] Time Out Audit 12/14/18 08:17:05 Medical Cash Poster: LUIS Modifier: LUIS 1 <*> Time Out Pause Time 12/14/18 08:08:00 1 <*> Procedure to be Performed Hip Total Anterior Approach [facility] Intra[facility] X-Ray and Images Entry 1 X-Ray/Imaging Type Fluoroscopy Fluoroscopy Type C-Arm Site LEFT HIP Corporate Fitness Program Coordinator Name Ryanne Buchanan, Agency Service Representative Protective Devices Yes Used Last Modified By: [...] on filedocumented in this encounter Care Teams Diffuser Operator Relationship Specialty Start Date End Date Ferny Gentile [address] [place] [address] PCP - General 05/22/22 documented as of this encounter
--- OUTSIDE RECORDS SUMMARY | 2025-03-13 14:48 | XMS_ITS | Encounter Summary ---
Author Organization [employer] ([place], [place], [place], [place], [place]) Address [address] [place] [address] Care Team Providers Care Machinist Outside Name Role Phone SeferinoSakinat Primary Care Provider [phone] Encounter Details Date Type Department Care Team (Late st Contact Info) Description 12/15/2018 Transcribed Document [facility] [place] Family Medicine [address] [place] [address] ProviderArt MD [address] [place] [address] Social History Tobacco Use Types Packs/Day [...] from hospital, All goals met, Discharge order NIA MARROQUIN, PT - 12/15/2018 14:44 EDT Discharged [...] reviewed this discharge summary and I concur. Nia Marroquin, PT NIA MARROQUIN, PT - 12/15/2018 14:44 EDT Electronically signed by Marilou [facility] Conversion Mothers Helper Cerner at 08/18/2022 11:11 AM CDT documented in this encounter Plan of Treatment Not on file documented as of this encounter Visit Diagnoses Not on filedocumented in this encounter Care Teams Machinist Outside Relationship Specialty Start Date End Date Seferino Ferny [address] [place] [address] PCP - General 05/22/22 documented as of this encounter
--- OUTSIDE RECORDS SUMMARY | 2025-03-13 14:48 | XMS_ITS | Encounter Summary ---
Author Organization [employer] ([place], [place], [place], [place], [place]) Address [address] [place] [address] Care Team Providers Care Store Stock Associate Name Role Phone Ferny Gentile Primary Care Provider [phone] Encounter Details Date Type Department Care Team (Late st Contact Info) Description 12/14/2018 Transcribed Document [facility] [place] Family Medicine [facility] [place] [address] ProviderArt MD [address] [place] [address] Social History Tobacco Use Types Packs/Day [...] Conversion Note - Historical ProviderMD - 12/14/2018 4:48 AM CDT Admission [...] Obtained From : Patient Primary Language : Slovenian Preferred Communication Mode : Verbal Communication Barrier [...] IV Therapy or IV Access : Yes Anastasiia Gait/Transferring : Weak Anastasiia Mental Status : Oriented to own ability Barcenas Fall Risk Score : 45 BARCENAS Fall Scale Risk Level : 25-45 Medium Risk [place] Fall Interventions : Adequate lighting, Assistive devices [...] High Risk Interventions : Bed alarm on Challis, Christopher L, RN - 12/14/2018 10:39 EDT Fall Risk [...] Updated: 12/15/2017 07:16:58 EDT by RHONA GARLAND, RN) Alcohol Use History Yes. Alcohol Use Frequency Rarely. (Last Updated: 12/02/2018 11:37:29 EDT by CINDY DAVID RN) Substance Abuse: Drug Use Hx: No. (Last Updated: 12/02/2018 11:37:29 EDT by CINDY DAVID RN) Height and Weight, Clinical Dosing Height Source : Stated Height Entry Format : Harris Height, Feet : 5 ft(Converted to: 152 cm, 60 Inch) Height, Inches : 7 Inch(Converted to: 0 ft 7 Inch, 17.78 cm) Clinical Height : 170.18 cm Weight Source : Standing scale Weight Entry Format : Harris Clinical Dosing Weight : 90.91 kg Weight, Pounds : 200 lb Body Surface Area (BSA) : 2.02 m2 Body Mass Index : 31.4 kg/m2 (HI) [place] Body Weight : 61 kg Amandeep Martinez [...] Illness : No Tuberculosis Symptoms : None Amanedep Martinez RN - 12/14/2018 10:39 EDT Influenza [...] on filedocumented in this encounter Care Teams Store Stock Associate Relationship Specialty Start Date End Date Ferny Gentile [address] [place] [address] PCP - General 05/22/22 documented as of this encounter
--- OUTSIDE RECORDS SUMMARY | 2025-03-13 14:48 | XMS_ITS ---
Author Organization [facility] Address [address] [place] [address] Phone Care Team Providers Care Ride Operator Name Role Phone MARIAMA MORALEZ, FATOUMATA Blanco Primary Care Provider [phone] Camila MORALEZ, Alanna Bowen Unavailable [phone] [...] Active Last Documented On 2 1:05PM ; [facility] Joint Pain Right Thumb 04/17/2022 Ceci griffin APRN Active Last Documented On 2 1:05PM ; [facility] Midback Pain 10/17/2020 Brandon Wilks MD Acti ve Last Documented On 1 2:32PM ; [email or web address] Joint Pain Left Knee 02/16/2020 Eliseo Cuevas MD Active Last Documented On 0 1:26PM ; [email or web address] Joint Pain Right Knee 10/29/2016 Alanna castaneda MD Active Last Documented On 7 10:32AM ; [email or web address] Pain in Lumbar Spine 03/13/2016 Alanna krause MD Active Last Documented On 6 1:07PM ; [email or web address] Joint Pain Hip Left 03/13/2016 Alanna chin MD Active Last Documented On 6 1:09PM ; [facility] Joint Pain Knee 03/10/2012 Alanna Pereira Active Last Documented On 2 10:37AM ; [facility] Plan of Treatment Findings Encounter Date Patient screened for future fall risk: documentation of any fall with injury in past year Follow Up with Ceci Santos APRN 04/14/2024 Last Documented On 4 4:23PM ; [facility] Pending Tests Order Diagnosis Results Due Ordering P rovider Lab Orders - HL Pre-Op PTT Other intervertebral disc degeneration, lumbar region 12/02/17 Brandon Wilks MD Last Documented On 8 9:23AM ; [facility] Lab Orders - HL Pre-Op PT INR Other intervertebral disc degeneration, lumbar region 12/02/17 Brandon Wilks MD Last Documented On 8 9:23AM ; [facility] Lab Orders - HL Pre-Op CMP Other int ervertebral disc degeneration, lumbar region 12/02/17 Brandon Wilks MD Last Documented On 8 9:23AM ; [facility] Lab Orders - HL Pre-Op Clean Catch UA Other intervertebral disc degeneration, lumbar region 12/02/17 Brandon Wilks MD Last Documented On 8 9:23AM ; [facility] Lab Orders - HL Pre-Op [...] On 4 4:23PM ; [facility] Overweight Follow Up with Hernan [...] cessation Last Documented On 9 10:40AM ; [facility] No health seminar on smoking cessation Last Documented On 8 1:06PM ; [facility] Medical Equipment - Implanted Devices Includes: Current and historical Devices No Medical Equipment Recorded Medications Includes: Current and historical Medications Current Medications (continue as prescribed) Colestipol HCl 5 GM Oral Packet 04/14/2024 Provider: Diagnosis: Last Documented On 4 11:25AM By Carla Hall ; [facility] Protonix 20 MG Oral Tablet Delayed Release 06/16/2022 Provider: Diagnosis: Last Documented On 3 4:00PM By Elif Chicas ; [facility] Flecainide Acetate 100 MG Oral Tablet 06/16/2022 Pro vider: Diagnosis: Last Documented On 3 4:01PM By Elif Chicas ; [facility] Metoprolol Succinate ER 25 M G Oral Tablet Extended Release 24 Hour 06/12/2022 Provider: Diagnosis: Last Documented On 3 4:00PM By Elif Chicas ; [facility] predniSONE 10 MG Oral Tablet 05/02/2022 Provider: FATOUMATA LESLIE MD Diagnosis: Last Documented On 3 4:00PM By Elif Chicas ; [facility] Lagevrio 200 MG Oral Capsule 04/22/2022 Provider: FATOUMATA LESLIE MD Diagnosis: Last Documented On 3 4:00PM By Elif Chicas ; [facility] Lagevrio 200 MG Oral Capsule 04/22/2022 Provider: FATOUMATA LESLIE MD Diagnosis: Last Documented On 3 4:00PM By Elif Chicas ; [facility] Mupirocin 2% External Ointment 04/16/2022 Provider: Eliseo Cuevas MD Diagnosis: three times a day Apply to n ostrils 3 time a day 5 days prior to surgery. Last Documented On 2 2:50PM By Gilda Kamara ; [facility] MegaRed [place]-3 Krill Oil 350 MG Oral Capsule 10/26/19 21 Provider: Diagnosis: Last Documented On 1 1:15PM By Betzaida Donald ; [facility] Sudafed 30 MG Oral Tablet 10/25/2020 Provider: Diagnosis: Last Documented On 1 1:15PM By Betzaida Donald ; [facility] Mucinex Allergy 180 MG Oral Tablet 10/25/2020 Provid er: Diagnosis: Last Documented On 1 1:14PM By Betzaida Donald ; [facility] Warfarin Sodium 7.5 MG Oral Tablet 10/17/2020 Provid er: Diagnosis: Last Documented On 1 2:43PM By Greer Kingston ; [facility] Ezetimibe 10 MG Oral Tablet 09/11/2020 Provider: FATOUMATA LESLIE MD Diagnosis: Last Documented On 1 1:13PM By Betzaida Donald ; [facility] Digoxin 125 MCG Oral Tablet 07/21/2020 Provider: Diagnosis: Last Documented On 1 2:44PM By Greer Kingston ; [facility] CoQ-10 10 MG Oral Capsule 10/20/2019 Provider: Diagnosis: Last Documented On 0 4:01PM By Greer Kingston ; [facility] D3-1000 25 MCG (1000 UT) Oral Capsule 10/20/2019 Pro vider: Diagnosis: Last Documented On 0 4:00PM By Greer Kingston ; [facility] Omeprazole 20 MG Oral Ta blet Delayed Release Disintegrating 10/20/2019 Provider: Diagnosis: Last Documented On 0 3:59PM By Greer Kingston ; [facility] Probiotic Maximum Strength Oral Capsule 10/20/2019 Provider: Diagnosis: Last Documented On 0 3:58PM By Greer Kingston ; [facility] Citalopram Hydrobromide 10 MG Oral Tablet 10/20/2019 Provider: Diagnosis: Last Documented On 0 3:56PM By Greer Kingston ; [facility] Flecainide Acetate 100 MG Oral Tablet 10/20/2019 Pro vider: Diagnosis: Last Documented On 0 3:55PM By Greer Kingston ; [facility] Past Medications on file oxyCODONE HCl 5 MG Oral Tablet 05/29/2022 - 06/03/2022 Provider: Eliseo ceja MD Diagnosis: 1-2 po q 4-6h Last Documented On 3 12:32PM By Hima Cuevas ; [email or web address] traMADol HCl 50 MG Oral Tablet 05/29/2022 - 06/03/2022 Provider: Eliseo ceja MD Diagnosis: 1-2 po q 4-6h Last Documented On 3 12:32PM By Hima Cuevas ; [email or web address] Lovenox 40 MG/0.4ML Injection Solution Prefilled Syringe 05/26/2022 - 05/30/2022 Provider: Eliseo ceja MD Diagnosis: 1 sub q injection 1 time day Last Documented On 3 8:35AM By Hima Cuevas ; [facility] Cefadroxil 500 MG Oral Capsule 05/21/2022 - 05/24/2022 Provider: Eliseo ceja MD Diagnosis: twice a day Last Documented On 3 12:08PM By Hima Cuevas ; [facility] Colace 100 MG Oral Capsule 05/21/2022 - 08/19/2022 Provider: Eliseo ceja MD Diagnosis: 1-2 tabs daily Last Documented On 3 12:08PM By Hima Cuevas ; [facility] traMADol HCl 50 MG Oral Tablet 05/21/2022 - 05/26/2022 Provider: Eliseo ceja MD Diagnosis: 1-2 po q 4-6h Last Documented On 3 12:08PM By Hima Cuevas ; [facility] Acetaminophen 500 MG Oral Tablet 05/21/2022 - 06/20/2022 Provider: Eliseo Cuevas MD Diagnosis: 2 three times a day Last Documented On 3 12:08PM By Hima Cuevas ; [email or web address] oxyCODONE HCl 5 MG Oral Tablet 05/21/2022 - 05/26/2022 Provider: Eliseo ceja MD Diagnosis: 1-2 po q 4-6h Last Documented On 3 12:08PM By Hima Cuevas ; [facility] Ondansetron HCl 4 MG Oral Tablet 05/21/2022 - 05/26/2022 Provider: Eliseo Cuevas MD Diagnosis: 2ont0-9l Last Documented On 3 12:08PM By Hima Cuevas ; [facility] Meloxicam 15 MG Oral Tablet 05/21/2022 - 06/20/2022 Provider: Eliseo ceja MD Diagnosis: once a day Last Documented On 3 12:08PM By Hima Cuevas ; [facility] HYDROcodone-Acetaminophen 7. 5-325 MG Oral Tablet 10/25/2020 - 11/14/2020 Provider: Brandon Wilks MD Diagnosis: twice a day Last Documented On 1 12:08PM By Dr. Wilks ; [facility] [place] 5-325 MG Oral Tablet 11/07/2019 - 10/25/2020 Pro vider: Brandon Wilks MD Diagnosis: twice a day and bedtime as necessary Last Documented On 1 1:11PM By Betzaida Donald ; [facility] tiZANidine HCl 2 MG Oral Tablet 10/21/2019 - Provider: FATOUMATA LESLIE MD Diagnosis: Last Documented On 1 1:11PM By Betzaida Donald ; [facility] Osteo Bi-Flex Joint Shield Oral Tablet 10/20/2019 - Provider: Diagnosis: Last Documented On 4 11:28AM By Clint Rocha ; [facility] Myrbetriq 25 MG Oral Tablet Extended Release 24 Hour 10/20/2019 - 03/03/2024 Provider: Diagnosis: Last Documented On 4 11:28AM By Clint Rocha ; [facility] MiraLax Oral Powder 10/20/2019 - 03/03/2024 Provider: Diagnosis: Last Documented On 4 11:28AM By Clint Rocha ; [facility] EQ Restore Plus Lubricant Ey e 0.5% Ophthalmic Solution 10/20/2019 - 03/03/2024 Provider: Diagnosis: Last Documented On 4 11:35AM By Clint Rocha ; [facility] Cetirizine HCl 10 MG Oral Capsule 10/20/2019 - 021 Provider: Diagnosis: Last Documented On 1 1:11PM By Betzaida Donald ; [facility] Ipratropium Creole 0.03% Nasal Solution 10/20/2019 - 03/03/2024 Provider: Diagnosis: Last Documented On 4 11:28AM By Clint Rocha ; [facility] Calcium-Magnesium 100-50 MG Oral Tablet 10/20/2019 - 1 Provider: Diagnosis: Last Documented On 4 11:28AM By Clint Rocha ; [facility] [place]-3 Krill Oil 300 MG Oral Capsule 10/20/2019 - 10/25/2020 Provider: Diagnosis: Last Documented On 1 1:12PM By Betzaida Donald ; [facility] Warfarin Sodium 7.5 MG Oral Tablet 10/20/2019 - 2020 Provider: Diagnosis: Last Documented On 1 2:43PM By Greer Kingston ; [facility] Ipratropium Creole 0.06% Nasal Solution 10/20/2019 - 10/25/2020 Provider: Diagnosis: Last Documented On 1 1:12PM By Betzaida Donald ; [facility] Ezetimibe-Simvastatin 10-10 MG Oral Tablet 10/20/2019 - 10/25/2020 Provider: Diagnosis: Last Documented On 1 1:12PM By Betzaida Donald ; [facility] Metoprolol-HCTZ ER 25-12.5 M G Oral Tablet Extended Release 24 Hour 10/20/2019 - 10/25/2020 Provider: Diagnosis: Last Documented On 1 1:12PM By Betzaida Donald ; [facility] HYDROcodone-Acetaminophen 2. 5-325 MG Oral Tablet 10/18/2019 - 10/25/2020 Provider: FATOUMATA LESLIE MD Diagnosis: Last Documented On 1 1:13PM By Betzaida Donald ; [facility] [place] 5-325MG Oral Tablet 12/31/2018 - 10/20/2019 Prov ider: Les Manriquez MD Diagnosis: 1-2 p o q 6-8h Last Documented On 0 3:53PM By Greer Kingston ; [facility] [place] 5-325MG Oral Tablet 12/23/2018 - 01/22/2019 Provider: [...] On 9 4:06PM By Reanna Gutierrez ; [email or web address] Neurontin 300MG Oral Capsule 12/08/2018 - 03/08/2019 Provider: Eliseo ceja MD Diagnosis: 1 every bedtime FOR SURGER Y DO NOT FILL UNTIL 12/14/18 Last Documented On 9 4:05PM By Reanna Gutierrez ; [email or web address] Dilaudid 2MG Oral Tablet 12/08/2018 [...] On 9 4:10PM By Reanna Gutierrez ; [facility] Mupirocin 2% External Ointment 11/09/2018 - 11/14/2018 Provider: Eilseo ceja MD Diagnosis: Apply to nostrils 3 time a d ay 5 days prior to surgery. Last Documented On 9 10:40AM By Gilda Kamara ; [facility] Doxycycline Hyclate 100MG Oral Capsule 09/02/2018 - Provider: Diagnosis: Last Documented On 0 3:54PM By Greer Kingston ; [facility] Myrbetriq 25MG Oral Tablet E xtended Release 24 Hour 02/22/2018 - 10/20/2019 Provider: Diagnosis: Last Documented On 0 3:53PM By Greer Kingston ; [facility] [place] 7.5-325MG Oral Tablet 12/28/2017 - 10/20/2019 Pr ovider: Brandon Wilks MD Diagnosis: three times a day, for post surgical spinal fusion pain , use spinal fusion post op guideloies, this surgry hurts 2-4 weeks Last Documented On 0 3:53PM By Greer Kingston ; [facility] [place] 5-325MG Oral Tablet 12/24/2017 - 12/31/2017 Prov ider: Brandon Wilks MD Diagnosis: 1-2 po q 4-6h PRN Last Documented On 8 5:31PM By Dr. Wilks ; [facility] [place] 7.5-325 MG OR TABS 12/24/2017 - 01/03/2018 Provi gaby: Brandon Wilks MD Diagnosis: Last Documented On 8 11:35AM By Marcelle Croft ; [facility] Voltaren Gel 1% External 10/14/2017 - 12/13/2017 Provi gaby: Alanna Jensen MD Diagnosis: use as directed Last Documented On 8 10:09AM By Sayra Evans ; [facility] HM Magnesium 400MG Oral Tablet 06/09/2017 - 10/20/2019 Provider: Diagnosis: Last Documented On 0 3:53PM By Greer Kingston ; [facility] Lovenox 40MG/0.4ML Subcutaneous Solution 05/06/2017 - 05/26/2017 Provider: Alanna castaneda MD Diagnosis: use as directed/1 INJECTION PER DAY FOR 5 DAYS PRIOR TO PROCEDER & 1 INJECTION PER DAY FOR 5 DAYS AFTER PROCERDER/ Last Documented On 8 4:29PM By Sayra Evans ; [facility] Flecainide Acetate 100MG Oral Tablet 02/04/2017 - 10/02 Provider: Diagnosis: Last Documented On 0 3:53PM By Greer Kingston ; [facility] [place] 5-325 MG Tablet 10/29/2016 - 11/05/2016 Provider : Alanna Jensen MD Diagnosis: 1-2 po q 4-6h PRN Last Documented On 7 11:55AM By Camryn Paez ; [facility] Medrol 4 MG Tablet Therapy Pack 02/14/2016 - 02/20/2016 Provider: Alanna chin MD Diagnosis: use as directed by pharmacy Last Documented On 6 3:16PM By Heather Langley ; [facility] [place] 5-325 MG Tablet 12/03/2015 - 12/18/2015 Provider : Alanna Jensen MD Diagnosis: 1-2 po q 4-6h Last Documented On 6 1:26PM By Heather Langley ; [facility] Calcium Carbonate-Vitamin D3 600-400 MG-UNIT Tablet 11/16/2015 - 10/20/2019 Provider: Diagnosis: Last Documented On 0 3:53PM By Greer Kingston ; [facility] Osteo Bi-Flex Regular Strength 250-200 MG Tablet 11/16/2015 - 10/20/2019 Provider: Diagnosis: Last Documented On 0 3:53PM By Greer Kingston ; [facility] Omeprazole 20 MG Tablet, enteric coated 11/16/2015 - 10/20/2019 Provider: Diagnosis: Last Documented On 0 3:53PM By Greer Kingston ; [facility] Metoprolol Succinate ER 25 M G Tablet, extended-release 24 hour 11/16/2015 - 10/20/2019 Provider: Diagnosis: Last Documented On 0 3:53PM By Greer Kingston ; [facility] Warfarin Sodium 1 MG Tablet 11/16/2015 - 10/20/2019 Pr ovider: Diagnosis: Last Documented On 0 3:54PM By Greer Kingston ; [facility] ZyrTEC Allergy 10 MG Tablet 11/16/2015 - 10/20/2019 Pr ovider: Diagnosis: Last Documented On 0 3:54PM By Greer Kingston ; [facility] Citalopram Hydrobromide 10 MG Tablet 11/16/2015 - 10/02 Provider: Diagnosis: Last Documented On 0 3:53PM By Greer Kingston ; [facility] [place] 7.5-325 MG Tablet 11/16/2015 - 12/16/2015 Provid er: Alnana Jensen MD Diagnosis: 1 every 4 - 6 hours PO PRN Last Documented On 6 2:09PM By Lani Marquez ; [facility] Prolia 60 MG/ML Solution 11/16/2015 - 10/20/2019 Provi gaby: Diagnosis: Last Documented On 0 3:54PM By Greer Kingston ; [facility] Aspirin Adult Low Dose 81 MG Tablet, enteric coated 11/16/2015 - 06/09/2017 Provider: Diagnosis: Last Documented On 8 1:56PM By Tiffany Alegre ; [facility] Bran Fiber 500 MG Tablet 11/16/2015 - 10/20/2019 Provi gaby: Diagnosis: Last Documented On 0 3:53PM By Greer Kingston ; [facility] 4X Probiotic Tablet 11/16/2015 - 10/20/2019 Provider: Diagnosis: Last Documented On 0 3:53PM By Greer Kingston ; [facility] Krill Oil [place]-3 300 MG Capsule, conventional 0 11/16/2015 - 06/09/2017 Provider: Diagnosis: Last Documented On 8 1:57PM By Tiffany Alegre ; [facility] Voltaren 1% TD GEL 01/31/2013 - 03/02/2013 Provider: Alanna Jensen MD Diagnosis: DEGENERATIVE MIKEY NT DISEASE KNEE apply 4 grams to affected ar ea 4 times a day//ks Last Documented On 3 2:16PM By Ann Marie Sutherland ; [facility] Lortab 10-500 MG OR TABS 09/14/2012 - 09/21/2012 Provi gaby: Alanna Jensen MD Diagnosis: [id number] [employer] jsb/df Last Documented On 3 8:56AM By Jose F Gutierrez ; [facility] Lortab 10-500 MG OR TABS 08/06/2012 - 08/13/2012 Provi gaby: Alanna Jensen MD Diagnosis: [id number] [employer] jsb/df Last Documented On 3 1:59PM By Jose F Gutierrez ; [facility] Lortab 10-500 MG OR TABS 07/09/2012 - 07/16/2012 Provi gaby: Alanna Jensen MD Diagnosis: [phone] [employer] jsb Last Documented On 3 12:36PM By Jose F Gutierrez ; [facility] Lortab 10-500 MG OR TABS 07/01/2012 - 07/08/2012 Provi gaby: Alanna Jensen MD Diagnosis: [phone] [employer] df Last Documented On 3 1:53PM By Jose F Gutierrez ; [facility] Xarelto 10 MG OR TABS 06/14/2012 - 07/05/2012 Provider : Alanna Jensen MD Diagnosis: sx on 06-15-12kw Last Documented On 3 1:31PM By Danielle Dobson ; [facility] Lortab 10-500 MG OR TABS 06/14/2012 - 06/21/2012 Provi gaby: Alanna Jensen MD Diagnosis: sx on 06-15-12kw Last Documented On 3 1:31PM By Dnaielle Dobson ; [facility] Reclast 5 MG/100ML IV SOLN 03/10/2012 - 06/09/2017 Pro vider: Diagnosis: Last Documented On 8 1:58PM By Tiffany Alegre ; [facility] Atenolol 25 MG OR TABS 03/10/2012 - 06/09/2017 Provide r: Diagnosis: Last Documented On 8 1:59PM By Tiffany Alegre ; [email or web address] Zetia 10 MG OR TABS 03/10/2012 - 10/20/2019 Provider: Diagnosis: Last Documented On 0 3:50PM By Greer Kingston ; [facility] Medications Administered Includes: Administered Medications in patient's chart No Administered Medications Recorded Vital Signs Includes: Vital Signs from 03/13/2024 through 03/13/2025 Vital Name 04/14/2024 12:09P Height (in) 65 Weight (lb) 172 Body Mass Index 28.6 Body Surface Area 1.9 Note: sr Last Documented: On 04/14/2024 12:11P M ; [facility] Results Includes: Results from 03/13/2024 through 03/13/2025 No Results Recorded For Specified Dates History of Present Illness History of Present Illness not supported for this document type No History of Present Illness Recorded Social History Description Last Updated No recent change in diet 04/14/2024 Last Documented On 4 4:23PM ; [email or web address] Not a current smoker. 04/14/2024 Last Documented On 4 4:23PM ; [email or web address] Tobacco non-user 04/14/2024 Last Documented On 4 4:23PM ; [facility] Alcohol use 10/25/2020 Last Documented On 1 11:07AM ; [facility] Not using drugs 10/25/2020 Last Documented On 1 11:07AM ; [facility] Recent change in diet 10/25/2020 Last Documented On 1 11:07AM ; [facility] Non-smoker 10/17/2020 Last Documented On 1 9:12AM ; [facility] No caffeine use 10/17/2020 Last Documented On 1 9:12AM ; [facility] Not a current smoker. 10/17/2020 Last Documented On 1 9:12AM ; [facility] No tobacco use 10/31/2019 Last Documented On 0 9:14AM ; [facility] Not a current smoker 10/31/2019 Last Documented On 0 9:14AM ; [facility] Not exercising regularly 10/31/2019 Last Documented On 0 9:14AM ; [facility] Smoking status : Never smoker 10/31/2019 Last Documented On 0 9:14AM ; [facility] Procedures and Surgical History Surgical History Last Updated History of back surgery 11/2019-Kypho T1 2 10/17/2020 Last Documented On 1 9:12AM ; [facility] History of heart surgery ablation 2017 0 10/31/2019 Last Documented On 0 9:14AM ; [facility] History of total hip replacement left hi p 201810/31/2019 Last Documented On 0 9:14AM ; [facility] History of total knee arthroplasty right knee 201210/31/2019 Last Documented On 0 9:14AM ; [facility], [facility] History of hysterectomy 10/16/2014 Last Documented On 5 9:01AM ; [facility], [facility] Medical History Includes: Medical History in patient's chart Description Last Updated Recent immunization for flu 02/01/2022 1 06/15/2023 Last Documented On 4 4:23PM ; [facility], [facility] Recent immunization for pneumococcal pne [place] 2014 04/14/2024 Last Documented On 4 4:23PM ; [facility] History of Irregular Heartbeat A-fib; ep isode after TKA- cadiovert needed 06/16/2022 Last Documented On 3 4:10PM ; [facility] blood transfusions 10/25/2020 Last Documented On 1 11:07AM ; [facility] Arthritis 10/25/2020 Last Documented On 11:07AM ; [facility] Heartburn / Acid Reflux 10/25/2020 Last Documented On 11:07AM ; [facility] History of Blood Clots 10/25/2020 Last Documented On 11:07AM ; [facility] History of Blood Transfusion 10/25/2020 Last Documented On 11:07AM ; [facility] History of Cancer 10/25/2020 Last Documented On 11:07AM ; [facility] History of Fractures 10/25/2020 Last Documented On 11:07AM ; [facility] History of heart disease 10/25/2020 Last Documented On 11:07AM ; [facility] Hypertension 10/25/2020 Last Documented On 11:07AM ; [facility] Irregular Heartbeat 10/25/2020 Last Documented On 11:07AM ; [facility] Past Surgical History: wrist repair ~hand sx ~gallstone sx 2011 ~mastectomy and reconstruction ~colonoscopy 2018 10/25/2020 Last Documented On 11:07AM ; [facility] Previous Fractures 10/25/2020 Last Documented On 11:07AM ; [facility] Sleep Apnea 10/25/2020 Last Documented On 1 11:07AM ; [facility] Use of CPAP 10/25/2020 Last Documented On 11:07AM ; [facility] Back surgery 12/15/2017 L4-5 Posterior Decompression and Fusion @ E ~11/07/2019 T12 Kyphyoplasty 10/25/2020 Last Documented On 11:07AM ; [facility] Heart surgery pacemaker 12/2019 ~Afib ab lation 10/25/2020 Last Documented On 06/25/202 1 11:07AM ; [email or web address] History of Gallbladder 10/25/2020 Last Documented On 1 11:07AM ; [facility] Hysterectomy 10/25/2020 Last Documented On 1 11:07AM ; [email or web address] Total hip replacement 12/2018-Left hip 0 10/17/2020 Last Documented On 1 9:12AM ; [email or web address] A previous fracture 10/31/2019 Last Documented On 0 9:14AM ; [email or web address] Gallbladder disease 2018 10/31/2019 Last Documented On 0 9:14AM ; [facility] History of diverticulitis of colon 11/15 Last Documented On 6 1:39PM ; [email or web address] History of osteoporosis 11/16/2015 Last Documented On 6 1:39PM ; [facility] A history of cancer 10/16/2014 Last Documented On 5 9:01AM ; [facility] Arthritic joint problems 10/16/2014 Last Documented On 5 9:01AM ; [email or web address] Family History Includes: Family History in patient's chart Description Last Updated Family history of cancer mother ~father 11/16/2015 Last Documented On 6 1:39PM ; [facility] Family history of diabetes mellitus moth er 11/16/2015 Last Documented On 6 1:39PM ; [email or web address] Family history of heart disease mother ~ father 11/16/2015 Last Documented On 6 1:39PM ; [email or web address] Family history of hypertension mother ~f ather 11/16/2015 Last Documented On 6 1:39PM ; [email or web address] Family history of osteoporosis mother Last Documented On 6 1:39PM ; [email or web address] Family history of rheumatoid arthritis m other 11/16/2015 Last Documented On 6 1:39PM ; [email or web address] Family history of thromboembolic disease mother 11/16/2015 Last Documented On 6 1:39PM ; [facility] Maternal history of hypertension 015 Last Documented On 5 9:01AM ; [facility] Maternal history of osteoporosis 015 Last Documented On 5 9:01AM ; [facility] Review of Systems Review of Systems not [...] Patient Last Documented On 0 3:13PM ; [facility] Influenza 2 02/01/2022 Complete (Reported) Patient Last Documented On 2 1:10PM ; [facility] PCV (Pneumovax 23) 1 2013 Complete ( Reported) Patient Last Documented On 2 1:10PM ; [facility] PCV (Pneumovax 23) 2 04/17/2022 Complete (Refused - Patient objection) [facility] Last Documented On 2 1:10PM ; [facility] Allergies Includes: Active, inactive, and resolved Allergies Substance Type Reaction Onset Date Resolved Date Statu s Sulfa Antibiotics Allergy 06/09/2017 A ctive Last Documented On 4 12:09PM ; [facility] Statins Support Allergy 06/09/2017 Act citlalli Last Documented On 4 12:09PM ; [facility] Percocet Allergy 03/10/2012 Active Last Documented On 4 12:09PM ; [facility] Bactrim Allergy 11/16/2015 Active Last Documented On 4 12:09PM ; [facility] Encounters Includes: Encounters from 03/13/2024 through 03/13/2025 Encounter Provider Location Date Check-In Time Check-Out Time Diagnosis Follow Up Ceci [facility]N [facility] 4 11:15AM 12:07PM Overweight Insurance Includes: Active Insurance Policies Plan Name Member ID Group # Subscriber Relationship Effect citlalli Dates 1 - Medicare Part B of [place] [id number] Luz Skaggs Self 04/03/2007 - Unknown 2 - [employer] [id number] PLAN Kit Skaggs Self 2011 - Unknown Clinical Notes Includes: Signed Clinical Notes starting from 04/17/2022 * Progress note Date Encounter Last Documented by 04/14/2024 Follow Up Last documented on 04/14/2024; 4:23 PM, Ceci Santos APRN; [facility] Active Problems & Conditions - [...] Capsule 5 days, 0 refills - [employer] [place]-3 Krill Oil 350 MG Oral Capsule [...] refills - Sudafed 30 MG Oral Tablet [id number] 0 days, 0 refills - Warfarin Sodium [...] Care Team - FATOUMATA LESLIE MD - BAKERY TEAM MEMBER Health Reminders - Assess BMI satisfied 04/14/2024. - Assess Tobacco Use satisfied 04/14/2024.
--- OUTSIDE RECORDS SUMMARY | 2025-03-13 14:48 | XMS_ITS | Encounter Summary ---
Author Organization [employer] ([place], [place], [place], [place], [place]) Address [address] [place] [address] Care Team Providers Care Foreign Food Specialty Cook Name Role Phone Sakina Gentilet Primary Care Provider [phone] Encounter Details Date Type Department Care Team (Late st Contact Info) Description 12/14/2018 Transcribed Document [facility] [place] [address] ProviderArt MD [address] [place] [address] Social History Tobacco Use Types Packs/Day [...] 12/14/2018 14:53 EDT by NICHOLE ARIZMENDI Care Management-Color Checker Care Management Progress Note Discharge Arrangements : [...] Medical Necessity : Yes NICHOLE ARIZMENDI, Care Management-Color Checker - 12/14/2018 14:53 EDT Electronically signed by Marilou [facility] Conversion Dethistler Operator Cerner at 08/18/2022 11:26 AM CDT documented in this encounter Plan of Treatment Not on file documented as of this encounter Visit Diagnoses Not on filedocumented in this encounter Care Teams Foreign Food Specialty Cook Relationship Specialty Start Date End Date Ferny Gentile [address] [place] [address] PCP - General 05/22/22 documented as of this encounter
--- OUTSIDE RECORDS SUMMARY | 2025-03-13 14:48 | XMS_ITS | Encounter Summary ---
Author Organization [employer] ([place], [place], [place], [place], [place]) Address [address] [place] [address] Care Team Providers Care Test Baker Name Role Phone SeferinoSakinat Primary Care Provider [phone] Encounter Details Date Type Department Care Team (Late st Contact Info) Description 12/14/2018 Transcribed Document [facility] [place] [facility] [place] [address] ProviderArt MD [address] [place] [address] Social History Tobacco Use Types Packs/Day [...] 12/14/2018 6:13 EDT by Ana Overton Patient Body Straightener Height and Weight, Clinical Dosing Height Source : Stated Height Entry Format : [place] Height, Feet : 5 ft(Converted to: 152 cm, 60 Inch) Height, Inches : 7 Inch(Converted to: 0 ft 7 Inch, 17.78 cm) Clinical Height : 170.18 cm Weight Source : Standing scale Weight Entry Format : [place] Clinical Dosing Weight : 90.91 kg Weight, Pounds : 200 lb Body Surface Area (BSA) : 2.02 m2 Body Mass Index : 31.4 kg/m2 ([place]) [place] Body Weight : 61 kg Ana Overton, Patient Body Straightener - 12/14/2018 6:13 EDT documented in this encounter Plan of Treatment Not on file documented as of this encounter Visit Diagnoses Not on filedocumented in this encounter Care Teams Test Baker Relationship Specialty Start Date End Date Ferny Gentile [address] [place] [address] PCP - General 05/22/22 documented as of this encounter
--- OUTSIDE RECORDS SUMMARY | 2025-03-13 14:48 | XMS_ITS | Encounter Summary ---
Author Organization [employer] ([place], [place], [place], [place], [place]) Address [address] [place] [address] Care Team Providers Care Coding Manager Name Role Phone Ferny Gentile Primary Care Provider [phone] Encounter Details Date Type Department Care Team (Late st Contact Info) Description 12/14/2018 Transcribed Document [facility] [place] [facility] [place] [address] ProviderArt MD [address] [place] [address] Social History Tobacco Use Types Packs/Day [...] Art ProviderMD - 12/14/2018 8:10 AM CDT [facility] Summary Primary Physician: MATTHEW BANEGAS MD-ORTheo Finalized Date/Time: 12/14/18 10:16:12 Pt. Name: UZAIR MADERA Kit Pereira/Sex: 1940 Female Med Rec #: [id number] Physician: MATTHEW BANEGAS MD-ORTheo Financial #: [id number] Pt. Type: I Room/Bed: [facility]/ Admit/Disch: 12/14/18 04:48:00 - Institution: [facility] PACU Case Times Entry 1 In PACU I 12/14/18 09:35:00 Ready for PACU 12/14/18 10:10:00 Discharge Discharge from PACU 12/14/18 10:10:00 I Last Modified By: Michael Ferrer, Omar 12/14/18 10:15:34 [facility] PACU Acuity Entry 1 Start Time 12/14/18 10:11:00 Stop Time 12/14/18 10:15:00 Acuity Level [facility] Acuity I Last Modified By: Michael Ferrer Rn 12/14/18 10:15:43 Finalized By: Michael Ferrer, Rn Document Signatures Signed By: Michael Ferrer Rn 12/14/18 10:16 documented in this encounter Plan of Treatment Not on file documented as of this encounter Visit Diagnoses Not on filedocumented in this encounter Care Teams Coding Manager Relationship Specialty Start Date End Date Ferny Gentile [address] [place] [address] PCP - General 05/22/22 documented as of this encounter
--- OUTSIDE RECORDS SUMMARY | 2025-03-13 14:48 | XMS_ITS | Encounter Summary ---
Author Organization [employer] ([place], [place], [place], [place], [place]) Address [address] [place] [address] Care Team Providers Care Grain Processor Name Role Phone Ferny Gentile Primary Care Provider [phone] Encounter Details Date Type Department Care Team (Late st Contact Info) Description 12/14/2018 Transcribed Document [facility] [place] [facility] [place] [address] ProviderArt MD [address] [place] [address] Social History Tobacco Use Types Packs/Day [...] UE Strength : WFL LOKI BLANTON OTR/Buck 12/14/2018 11:16 EDT Self Care/Home Management, OT [...] with Brace/Splint : No LOKI BLANTON OTR/Buck 12/14/2018 11:16 EDT Functional Mobility Mobility Grid Supine to Sit : Rehab Minimal assistance Sit to Stand : Rehab Minimal assistance Bed to Chair : Rehab Minimal assistance (Comment: 1-2 person secondary dizzy [LOKI BLANTON OTR/Buck 12/14/2018 11:16 EDT] ) Stand to Sit : Rehab Minimal assistance LOKI BLANTON OTR/Buck 12/14/2018 11:16 EDT Functional MobilityComment : gait belt, using rw transfer bed to chair min assist 1-2 person due to dizziness , cues for safety and hand placement LOKI BLANTON OTR/Buck 12/14/2018 11:16 EDT AM PAC Daily Activity [...] Overall Sensory Response : Intact LOKI BLANTON OTR/Buck 12/14/2018 11:16 EDT Cognition Assessment, OT Orientation : Oriented x 4 LOKI BLANTON OTR/L - 12/14/2018 11:16 EDT Education OT Occupational Therapy Education Grid Activity of Daily Living Training : Returns demonstration, Needs further teaching Functional Mobility Training : Returns demonstration, Needs further teaching Home Safety : Needs further teaching LOKI BLANTON OTR/Bukc - 12/14/2018 11:16 EDT Indication Assessment, OT [...] LOKI BLANTON OTR/Buck - 12/14/2018 11:16 EDT Correction Goals, OT Other LTG Grid Goal #1 [...] - 12/14/2018 11:16 EDT Electronically signed by Marilou [facility] Conversion Corporate Legal Secretary Cerner at 08/18/2022 11:12 AM CDT documented in this encounter Plan of Treatment Not on file documented as of this encounter Visit Diagnoses Not on filedocumented in this encounter Care Teams Grain Processor Relationship Specialty Start Date End Date Ferny Gentile [address] [place] [address] PCP - General 05/22/22 documented as of this encounter
--- OUTSIDE RECORDS SUMMARY | 2025-03-13 14:48 | XMS_ITS | Clinical Summary ---
Author Organization [employer] ([place], [place], [place], [place], [place]) Address [address] [place] [address] Care Team Providers Care Head Charrer Name Role Phone SeferinoSakinat Primary Care Provider [phone] Allergies Active Allergy Reactions Criticality Noted Date [...] oxide 400 mg magnesium Tab daily. Active [id number]- [id number]- 27 0.5-30-60-90 mg Cap daily. Active cholecalcifero [...] Date Alfredo rded Speak language other than [place]ian at home Not on file 05/22/2023 Want [...] 2025 01/29/2021 Medical Devices Implanted Type Area Cooler Conveyor Loader Device Identifier Shelf Expiration Date Model / Serial / Lot Cement Bone Sem[place] Hv 40/20 600-15-000 - [id number] Implanted:Qty : 2 on 05/26/2022 by Eliseo Cuevas MD at [facility] IMPLANTS Left: Knee DJ SURG:ENCORE MED:JESSIEOOGA 05/30/2023 600-15-00 0 / / [id number] Ty Tib I-Beam Fix Biomet 75mm [id number] - [id number] Implanted:Qty : 1 on 05/26/2022 by Eliseo Cuevas MD at [facility] TOTAL JOINT CONSTRUCT Left: Knee BIOMET 03/26/2032 [id number] / / [id number] Patella Std 8x31mm [id number] - [id number] Implanted:Qty : 1 on 05/26/2022 by Eliseo Cuevas MD at [facility] TOTAL JOINT [employer]STRU[employer] Left: Knee BIOMET 03/12/2027 [id number] / / [id number] Comp Fem Ps Vangrd 65mm [id number] - [id number] Implanted:Qty : 1 on 05/26/2022 by Eliseo Cuevas MD at [facility] TOTAL JOINT [employer]STRU[employer] Left: Knee BIOMET 10/13/2029 [id number] / / [id number] Insrt Tib Bear Ps 10x71/75 [id number] - [id number] Implanted:Qty : 1 on 05/26/2022 by Eliseo Cuevas MD at [facility] TOTAL JOINT CONSTRUCT Left: Knee BIOMET 11/07/2025 [id number] / / [id number] Insurance MEDICARE PART A B Advance Directives For more information, please contact: [phone] * Full Code (Latest Code Status on File) Date Activated Date Inactivated Comments 05/26/2022 3:06 PM 05/29/2022 8:04 PM * Full Code Date Activated Date Inactivated Comments 05/26/2022 8:57 AM 05/26/2022 3:06 PM Care Teams Head Charrer Relationship Specialty Start Date End Date SeferinoSakinat [address] [place] [address] PCP - General 05/22/22
--- OUTSIDE RECORDS SUMMARY | 2025-03-13 14:49 | XMS_ITS | Encounter Summary ---
Author Organization [employer] ([place], [place], [place], [place], [place]) Address [address] [place] [address] Care Team Providers Care Metal Bonding Worker Name Role Phone Ferny Gentile Primary Care Provider [phone] Encounter Details Date Type Department Care Team (Late st Contact Info) Description 12/02/2018 Transcribed Document [facility] [place] [facility] [place] [address] ProviderArt MD [address] [place] [address] Social History Tobacco Use Types Packs/Day [...] OSIRIS- Continue CPAP. 11. H/o Breast Cancer 1992- S/p Left Mastectomy with chemo. No radiation. Problem List/Past Medical History Ongoing Atrial fibrillation Breast cancer Cataracts, bilateral Gallstones Hyperlipidemia Osteoarthritis Seasonal allergies Sleep apnea Procedure/Surgical History EXCISION OF RIGHT PELVIC BONE, OPEN APPROACH (12/15/2017), FUSION LUM JT W INTBD FUS DEV, POST APPR A COL, OPEN (12/15/2017), breast reconstruction left, cardiac ablation -, cataract removed Rt and Lt, darshana, hysterectomy [...] ipratropium 21 mcg/inh (0.03%) nasal spray 2 [place], Nasal, BID kynsol magnesium oxide 400 mg [...] Lymph # 1.40 K/uL 12/02/2018 12:03 EDT [place] % 17.1 % (High) 12/02/2018 12:03 EDT [place] # 1.07 K/uL (High) 12/02/2018 12:03 EDT [...] Appearance CLEAR2 12/02/2018 12:03 EDT Urine Specific [place] 1.013 12/02/2018 12:03 EDT Urine pH Dipstick [...] nitrites, neg LE Electronically signed by Interface, [facility] Conversion Marketing Assistant Manager Cerner at 08/18/2022 11:07 AM CDT documented in this encounter Plan of Treatment Not on file documented as of this encounter Visit Diagnoses Not on filedocumented in this encounter Care Teams Metal Bonding Worker Relationship Specialty Start Date End Date Seferino Ferny [address] [place] [address] PCP - General 05/22/22 documented as of this encounter
--- OUTSIDE RECORDS SUMMARY | 2025-03-13 14:49 | XMS_ITS | Encounter Summary ---
Author Organization [employer] ([place], [place], [place], [place], [place]) Address [address] [place] [address] Care Team Providers Care Auto Crane Driver Name Role Phone Ferny Gentile Primary Care Provider [phone] Encounter Details Date Type Department Care Team (Late st Contact Info) Description 12/15/2018 Transcribed Document [facility] [place] [facility] [place] [address] ProviderArt MD [address] [place] [address] Social History Tobacco Use Types Packs/Day [...] on filedocumented in this encounter Care Teams Auto Crane Driver Relationship Specialty Start Date End Date SeferinoFerny [address] [place] [address] PCP - General 05/22/22 documented as of this encounter
--- OUTSIDE RECORDS SUMMARY | 2025-03-13 14:49 | XMS_ITS | Encounter Summary ---
Author Organization [employer] ([place], [place], [place], [place], [place]) Address [address] [place] [address] Care Team Providers Care Automatic Presser Name Role Phone Sakina Gentilet Primary Care Provider [phone] Encounter Details Date Type Department Care Team (Late st Contact Info) Description 12/02/2018 Transcribed Document [facility] [place] [facility] [place] [address] ProviderArt MD [address] [place] [address] Social History Tobacco Use Types Packs/Day [...] [employer] Date : 12/02/2018 EDT Joint Creative Lead Attended Academy : Yes Joint Creative Lead Name : Litzy Naranjo [phone] Type of Surgery : Anterior Hip Replacement, [...] position) : Moderate 6. Sitting : Moderate HOOS JR Raw Score (ref) : 13 Sybil [...] on filedocumented in this encounter Care Teams Automatic Presser Relationship Specialty Start Date End Date Ferny Gentile [address] [place] [address] PCP - General 05/22/22 documented as of this encounter
--- OUTSIDE RECORDS SUMMARY | 2025-03-13 14:49 | XMS_ITS | Clinical Summary ---
Author Organization [facility] [place] Address [address] [facility] [place] [address] Phone Care Team Providers Care Computer Patternmaker Name Role Phone MARIAMA MORALEZ, FATOUMATA E Primary Care Provider [phone] Camila MORALEZ, Alanna Bowen Unavailable [phone] [...] Active Last Documented On 2 1:05PM ; [facility] Joint Pain Right Thumb 04/17/2022 Ceci griffin APRN Active Last Documented On 2 1:05PM ; [facility] Midback Pain 10/17/2020 Brandon Wilks MD Acti ve Last Documented On 1 2:32PM ; [facility] Joint Pain Left Knee 02/16/2020 Eliseo Cuevas MD Active Last Documented On 0 1:26PM ; [facility] Joint Pain Right Knee 10/29/2016 Alanna castaneda MD Active Last Documented On 7 10:32AM ; [facility] Pain in Lumbar Spine 03/13/2016 Alanna krause MD Active Last Documented On 6 1:07PM ; [facility] [place] Joint Pain Hip Left 03/13/2016 Alanna chin MD Active Last Documented On 6 1:09PM ; [facility] [place] Joint Pain Knee 03/10/2012 Alanna Pereira Active Last Documented On 2 10:37AM ; [facility] [place] Plan of Treatment Fall Risk Assessment: This [...] - Last Documented On 07/07/2022 1:06PM ; [facility] [place] overall the patient is very pleased with her knee surgery, she has some bilateral lower extremity edema that she reports as being lymphedema diagnosis in the past. Happy to give PT prescription today to help with lymphedema modalities. We will plan for follow-up 4-6 weeks for 3 month interval exam - Last Documented On 07/07/2022 1:06PM ; [facility] [place] Pending Tests Order Diagnosis Results Due Ordering P rovider Therapy - Physical Therapy Knee 07/07/22 Hernan Gold PA-C Last Documented On 3 11:47AM ; [facility] [place] Instructions to patient Lose weight Last Documented On 3 11:07AM ; [facility] [place] Assessments Includes: Assessments from this encounter Findings seven-week status post left TKA - Last Documented On 07/07/2022 1:06PM ; [facility] [place] Instructions Includes: Instructions from this encounter Instructions to patient Lose weight Last Documented On 3 11:07AM ; [facility] [place] Medical Equipment - Implanted Devices Includes: Current Devices No Medical Equipment Recorded Medications Includes: Medications discussed during this encounter and other current Medications Current Medications (continue as prescribed) Colestipol HCl 5 GM Oral Packet 04/14/2024 Provider: Diagnosis: Last Documented On 4 11:25AM By Carla Hall ; [facility] [place] Protonix 20 MG Oral Tablet Delayed Release 06/16/2022 Provider: Diagnosis: Last Documented On 3 4:00PM By Elif Chicas ; [facility] Flecainide Acetate 100 MG Oral Tablet 06/16/2022 Pro vider: Diagnosis: Last Documented On 3 4:01PM By Elif Chicas ; [facility] Metoprolol Succinate ER 25 M G Oral Tablet Extended Release 24 Hour 06/12/2022 Provider: Diagnosis: Last Documented On 3 4:00PM By Elif Chicas ; [facility] predniSONE 10 MG Oral Tablet 05/02/2022 Provider: FATOUMATA LESLIE MD Diagnosis: Last Documented On 3 4:00PM By Elif Chicas ; [facility] Lagevrio 200 MG Oral Capsule 04/22/2022 Provider: FATOUMATA LESLIE MD Diagnosis: Last Documented On 3 4:00PM By Elif Chicas ; [facility] Lagevrio 200 MG Oral Capsule 04/22/2022 Provider: FATOUMATA LESLIE MD Diagnosis: Last Documented On 3 4:00PM By Elif Chicas ; [facility] Mupirocin 2% External Ointment 04/16/2022 Provider: Eliseo Cuevas MD Diagnosis: three times a day Apply to n ostrils 3 time a day 5 days prior to surgery. Last Documented On 2 2:50PM By Gilda Kamara ; [facility] [place] MegaRed Fosters-3 Krill Oil 350 MG Oral Capsule 10/26/19 21 Provider: Diagnosis: Last Documented On 1 1:15PM By Betzaida Donald ; [facility] Sudafed 30 MG Oral Tablet 10/25/2020 Provider: Diagnosis: Last Documented On 1 1:15PM By Betzaida Donald ; [facility] Mucinex Allergy 180 MG Oral Tablet 10/25/2020 Provid er: Diagnosis: Last Documented On 1 1:14PM By Betzaida Donald ; [facility] Warfarin Sodium 7.5 MG Oral Tablet 10/17/2020 Provid er: Diagnosis: Last Documented On 1 2:43PM By Greer Kingston ; [facility] Ezetimibe 10 MG Oral Tablet 09/11/2020 Provider: FATOUMATA LESLIE MD Diagnosis: Last Documented On 1 1:13PM By Betzaida Donald ; [facility] [place] Digoxin 125 MCG Oral Tablet 07/21/2020 Provider: Diagnosis: Last Documented On 1 2:44PM By Greer Kingston ; [facility] CoQ-10 10 MG Oral Capsule 10/20/2019 Provider: Diagnosis: Last Documented On 0 4:01PM By Greer Kingston ; [facility] [place] D3-1000 25 MCG (1000 UT) Oral Capsule 10/20/2019 Pro vider: Diagnosis: Last Documented On 0 4:00PM By Greer Kingston ; [facility] [place] [facility] Omeprazole 20 MG Oral Ta blet Delayed Release Disintegrating 10/20/2019 Provider: Diagnosis: Last Documented On 0 3:59PM By Greer Kingston ; [facility] Probiotic Maximum Strength Oral Capsule 10/20/2019 Provider: Diagnosis: Last Documented On 0 3:58PM By Greer Kingston ; [facility] Citalopram Hydrobromide 10 MG Oral Tablet 10/20/2019 Provider: Diagnosis: Last Documented On 0 3:56PM By Greer Kingston ; [facility] [place] Flecainide Acetate 100 MG Oral Tablet 10/20/2019 Pro vider: Diagnosis: Last Documented On 0 3:55PM By Greer Kingston ; [facility] Past Medications on file oxyCODONE HCl 5 MG Oral Tablet 05/29/2022 - 06/03/2022 Provider: Eliseo ceja MD Diagnosis: 1-2 po q 4-6h Last Documented On 3 12:32PM By Hima Cuevas ; [facility] [place] traMADol HCl 50 MG Oral Tablet 05/29/2022 [...] - 05/26/2022 Provider: Eliseo Cuevas MD Diagnosis: [id number] Last Documented On 3 12:08PM By Hima Cuevas ; [facility] Meloxicam 15 MG Oral Tablet 05/21/2022 - 06/20/2022 Provider: Eliseo ceja MD Diagnosis: once a day Last Documented On 3 12:08PM By Hima Cuevas ; [facility] HYDROcodone-Acetaminophen 7. 5-325 MG Oral Tablet 10/25/2020 - 11/14/2020 Provider: Brandon Wilks MD Diagnosis: twice a day Last Documented On 1 12:08PM By Dr. Wilks ; [facility] [place] 5-325MG Oral Tablet 12/23/2018 - 01/22/2019 Provider: Eliseo ceja MD Diagnosis: 1-2 po q6h prn pain Last Documented On 9 3:09PM By Reanna Gutierrez ; [facility] Acetaminophen 500MG Oral Tablet 12/08/2018 - 01/07/2019 Provider: Eliseo Cuevas MD Diagnosis: 2 three times a day FOR BACON RGERY DO NOT FILL UNTIL 12/14/18 Last Documented On 9 4:10PM By Reanna Gutierrez ; [facility] traMADol HCl 50MG [...] Gutierrez ; [facility] Dilaudid 2MG Oral Tablet 12/08/2018 - 12/10/2018 Provi gaby: Eliseo Cuevas MD Diagnosis: 1-2 po q6h prn pain (RESCUE PAIN) FOR SURGERY DO NOT FILL UNTIL 12/14/18 Last Documented On 9 4:05PM By Reanna Gutierrez ; [facility] Colace 100MG Oral [...] By Gilda Kamara ; [facility] [place] 5-325MG Oral Tablet 12/24/2017 - 12/31/2017 Prov ider: Brandon Wilks MD Diagnosis: 1-2 po q 4-6h PRN Last Documented On 8 5:31PM By Dr. Wilks ; [facility] [place] 7.5-325 MG OR TABS 12/24/2017 - 01/03/2018 [...] By Sayra Evans ; [facility] [place] 5-325 MG Tablet 10/29/2016 - 11/05/2016 Provider : Alanna Jensen MD Diagnosis: 1-2 po q 4-6h PRN Last Documented On 7 11:55AM By Camryn Paez ; [facility] Medrol 4 MG Tablet Therapy Pack 02/14/2016 - 02/20/2016 Provider: Alanna chin MD Diagnosis: use as directed by pharmacy Last Documented On 6 3:16PM By Heather Langley ; [facility] [place] 5-325 MG Tablet 12/03/2015 - 12/18/2015 Provider : Alanna Jensen MD Diagnosis: 1-2 po q 4-6h Last Documented On 6 1:26PM By Heather Langley ; [facility] [place] 7.5-325 MG Tablet 11/16/2015 - 12/16/2015 Provid er: Alanna Jensen MD Diagnosis: 1 every 4 - 6 hours PO PRN Last Documented On 6 2:09PM By Lani Marquez ; [facility] [place] Voltaren 1% TD GEL 01/31/2013 - 03/02/2013 Provider: Alanna Jensen MD Diagnosis: DEGENERATIVE MIKEY NT DISEASE KNEE apply 4 grams to affected ar ea 4 times a day//ks Last Documented On 3 2:16PM By Ann Marie Sutherland ; [facility] Lortab [...] 3 1:59PM By Jose F Gutierrez ; [facility] Lortab 10-500 MG OR TABS 07/09/2012 - 07/16/2012 Provi gaby: Alanna Jensen MD Diagnosis: [id number] [facility] jsb Last Documented On 3 12:36PM By Jose F Gutierrez ; [facility] Lortab 10-500 MG OR TABS 07/01/2012 - 07/08/2012 Provi gaby: Alanna Jensen MD Diagnosis: [phone] [facility] df Last Documented On 3 1:53PM By Jose F Gutierrez ; [facility] Xarelto 10 MG OR [...] 10/17/2020 Last Documented On 3 11:07AM ; [facility] [place] No tobacco use 10/31/2019 Last Documented On 3 11:07AM ; [facility] [place] Not a current smoker 10/31/2019 Last Documented On 3 11:07AM ; [facility] [place] Not exercising regularly 10/31/2019 Last Documented On 3 11:07AM ; [facility] [place] Smoking status : Never smoker 10/31/2019 Last Documented On 3 11:07AM ; [facility] [place] Procedures and Surgical History Includes: Procedures from this encounter Procedures Code Diagnosis Performing Provider Service L ocation Service Date use of tobacco assessment performed 1000F Last Documented On 3 11:07AM ; [facility] [place] patient screened for future fall risk: documentation of any fall with injury in past year 1100F Last Documented On 3 11:07AM ; [facility] [place] follow-up visit in one month Last Documented On 3 11:07AM ; [facility] [place] referral to physician Last Documented On 3 11:07AM ; [facility] [place] an X-ray was performed [id number] Last Documented On 3 11:07AM ; [facility] [place] Surgical History Last Updated History of back surgery 11/2019-Kypho T1 2 10/17/2020 Last Documented On 3 11:07AM ; [facility] [place] History of heart surgery ablation 2017 0 10/31/2019 Last Documented On 3 11:07AM ; [facility] [place] History of total hip replacement left hi p 201810/31/2019 Last Documented On 3 11:07AM ; [facility] [place] History of total knee arthroplasty right knee 201210/31/2019 Last Documented On 3 11:07AM ; [facility] [place] History of hysterectomy 10/16/2014 Last Documented On 3 11:07AM ; [facility] [place] Medical History Includes: Medical History addressed during this encounter Description Last Updated Recent immunization for flu 02/01/2022 1 06/15/2023 Last Documented On 3 11:07AM ; [facility] [place] Recent immunization for pneumococcal pne umonia 2014 04/14/2024 Last Documented On 3 11:07AM ; [facility] [place] History of Irregular Heartbeat A-fib; ep isode after TKA- cadiovert needed 06/16/2022 Last Documented On 3 11:07AM ; [facility] [place] blood transfusions 10/25/2020 Last Documented On 3 11:07AM ; [facility] [place] Arthritis 10/25/2020 Last Documented On 3 11:07AM ; [facility] [place] Heartburn / Acid Reflux 10/25/2020 Last Documented On 3 11:07AM ; [facility] [place] History of Blood Clots 10/25/2020 Last Documented On 3 11:07AM ; [facility] [place] History of Blood Transfusion 10/25/2020 Last Documented On 3 11:07AM ; [facility] [place] History of Cancer 10/25/2020 Last Documented On 3 11:07AM ; [facility] [place] History of Fractures 10/25/2020 Last Documented On 3 11:07AM ; [facility] [place] History of heart disease 10/25/2020 Last Documented On 3 11:07AM ; [facility] [place] Hypertension 10/25/2020 Last Documented On 3 11:07AM ; [facility] [place] Irregular Heartbeat 10/25/2020 Last Documented On 3 11:07AM ; [facility] [place] Past Surgical History: wrist repair ~hand sx ~gallstone sx 2011 ~mastectomy and reconstruction ~colonoscopy 2018 10/25/2020 Last Documented On 3 11:07AM ; [facility] [place] Previous Fractures 10/25/2020 Last Documented On 3 11:07AM ; [facility] [place] Sleep Apnea 10/25/2020 Last Documented On 3 11:07AM ; [facility] [place] Use of CPAP 10/25/2020 Last Documented On 3 11:07AM ; [facility] [place] Back surgery 12/15/2017 L4-5 Posterior Decompression and Fusion @ [facility] ~11/07/2019 T12 Kyphyoplasty 10/25/2020 Last Documented On 3 11:07AM ; [facility] [place] Heart surgery pacemaker 12/2019 ~Afib ab lation 10/25/2020 Last Documented On 3 11:07AM ; [facility] [place] History of Gallbladder 10/25/2020 Last Documented On 3 11:07AM ; [facility] Hysterectomy 10/25/2020 Last Documented On 3 11:07AM ; [facility] [place] Total hip replacement 12/2018-Left hip 0 10/17/2020 Last Documented On 3 11:07AM ; [facility] [place] A previous fracture 10/31/2019 Last Documented On 3 11:07AM ; [facility] [place] Gallbladder disease 2018 10/31/2019 Last Documented On 3 11:07AM ; [facility] [place] History of diverticulitis of colon 11/15 Last Documented On 3 11:07AM ; [facility] [place] History of osteoporosis 11/16/2015 Last Documented On 3 11:07AM ; [facility] [place] A history of cancer 10/16/2014 Last Documented On 3 11:07AM ; [facility] [place] Arthritic joint problems 10/16/2014 Last Documented On 3 11:07AM ; [facility] [place] Family History Includes: Family History addressed during this encounter Description Last Updated Family history of cancer mother ~father 11/16/2015 Last Documented On 3 11:07AM ; [facility] [place] Family history of diabetes mellitus moth er 11/16/2015 Last Documented On 3 11:07AM ; [facility] [place] Family history of heart disease mother ~ father 11/16/2015 Last Documented On 3 11:07AM ; [facility] [place] Family history of hypertension mother ~f ather 11/16/2015 Last Documented On 3 11:07AM ; [facility] [place] Family history of osteoporosis mother Last Documented On 3 11:07AM ; [facility] [place] Family history of rheumatoid arthritis m other 11/16/2015 Last Documented On 3 11:07AM ; [facility] [place] Family history of thromboembolic disease mother 11/16/2015 Last Documented On 3 11:07AM ; [facility] [place] Maternal history of hypertension 015 Last Documented On 3 11:07AM ; [facility] [place] Maternal history of osteoporosis 015 Last Documented On 3 11:07AM ; [facility] Review of Systems Includes: Review of [...] ctive Last Documented On 4 12:09PM ; [facility] [place] Statins Support Allergy 06/09/2017 Act citlalli Last Documented On 4 12:09PM ; [facility] [place] Percocet Allergy 03/10/2012 Active Last Documented On 4 12:09PM ; [facility] [place] Bactrim Allergy 11/16/2015 Active Last Documented On 4 12:09PM ; [facility] [place] Encounters Encounter Provider Location Date Check-In Time Check- Out Time Diagnosis Post Op Hernan Gold PA-C [facility] 3 11:12AM 11:46AM Insurance Includes: Active Insurance Policies Plan Name Member ID Group # Subscriber Relationship Effect citlalli Dates 1 - Medicare Part B [facility] [id number] Luz Skaggs Self 04/03/2007 - Unknown 2 - [facility] [id number] PLAN F Luz Skaggs Self 2011 - Unknown Clinical Notes Includes: Clinical Notes from this encounter * Progress note Date Encounter Last Documented by 07/07/2022 Post Op Last documented on 07/07/2022; 1:06 PM, Hernan Gold PA-C; [facility] [place] Active Problems & Conditions - Joint Pain [...] directed 0 days, 0 refills - Ipratropium [place] 0.03% Nasal Solution take as directed 0 days, 0 refills - Lagevrio 200 MG Oral Capsule 5 days, 0 refills - Lagevrio 200 MG Oral Capsule 5 days, 0 refills - MegaRed Fosters-3 Krill Oil 350 MG Oral Capsule once [...] refills - Sudafed 30 MG Oral Tablet 1tea1-2h 0 days, 0 refills - Warfarin Sodium [...] Care Team - FATOUMATA LESLIE MD - RESERVE OFFICER
--- OUTSIDE RECORDS SUMMARY | 2025-03-13 14:49 | XMS_ITS | Encounter Summary ---
Author Organization [employer] ([place], [place], [place], [place], [place]) Address [address] [place] [address] Care Team Providers Care Loss Mitigation Specialist Name Role Phone Seferino Ferny Primary Care Provider [phone] Encounter Details Date Type Department Care Team (Late st Contact Info) Description 12/15/2018 Transcribed Document [facility] [facility] [place] [address] ProviderArt MD [address] [place] [id number] Social History Tobacco Use Types Packs/Day [...] - Medical Enoxaparin 40 mg, SubCutaneous, Inj, [id number], Routine, Start 12/15/18 9:00:00 EDT (MATTHEW BANEGAS) [...] Q12H Lovenox, 40 mg= 0.4 mL, SubCutaneous, [id number] magnesium oxide, 400 mg= 1 Tab, Oral, [...] 05:15 EDT INR 1.1 12/15/2018 05:15 EDT documented in this encounter Plan of Treatment Not on file documented as of this encounter Visit Diagnoses Not on filedocumented in this encounter Care Teams Loss Mitigation Specialist Relationship Specialty Start Date End Date Ferny Gentile [address] [place] [id number] PCP - General 05/22/22 documented as of this encounter
--- OUTSIDE RECORDS SUMMARY | 2025-03-13 14:49 | XMS_ITS | Clinical Summary ---
Author Organization [facility] , [facility] Address [address] [place] [address] Phone Care Team Providers Care Soapstoner Name Role Phone MARIAMA MORALEZ, FATOUMATA E Primary Care Provider [phone] Camila MORALEZ, Alanna Bowen Unavailable [phone] [...] On 2 1:05PM ; [facility] Joint Pain Right Thumb 04/17/2022 Ceci griffin APRN Active Last Documented On 2 1:05PM ; [facility] Midback Pain 10/17/2020 Brandon Wilks MD Acti ve Last Documented On 1 2:32PM ; [facility] Joint Pain Left Knee 02/16/2020 Eliseo Cuevas MD Active Last Documented On 0 1:26PM ; [facility] Joint Pain Right Knee 10/29/2016 Alanna castaneda MD Active Last Documented On 7 10:32AM ; [facility] Pain in Lumbar Spine 03/13/2016 Alanna krause MD Active Last Documented On 6 1:07PM ; [facility] Joint Pain Hip Left 03/13/2016 Alanna chin MD Active Last Documented On 6 1:09PM ; [facility] Joint Pain Knee 03/10/2012 Alanna Pereira Active Last Documented On 2 10:37AM ; [facility] Plan of Treatment Fall Risk Assessment: This [...] Documented On 09/01/2023 8:29AM ; [facility] Overall patient is very pleased with the knee surgery, no complaints today. We will plan for follow up 5 year postop intervals - Last Documented On 09/01/2023 8:29AM ; [facility] Instructions to patient Lose weight Last Documented On 4 3:03PM ; [facility] Assessments Includes: Assessments from this encounter Findings - Overweight - Last Documented On 09/01/2023 8:29AM ; [facility] 1 year status post left TKA - Last Documented On 09/01/2023 8:29AM ; [facility] Instructions Includes: Instructions from this encounter Instructions to patient Lose weight Last Documented On 4 3:03PM ; [facility] Medical Equipment - Implanted Devices Includes: Current Devices No Medical Equipment Recorded Medications Includes: Medications discussed during this encounter and other current Medications Current Medications (continue as prescribed) Colestipol HCl 5 GM Oral Packet 04/14/2024 Provider: Diagnosis: Last Documented On 4 11:25AM By Carla Hall ; [facility] Protonix 20 MG Oral Tablet Delayed Release 06/16/2022 Provider: Diagnosis: Last Documented On 3 4:00PM By Elif Stephens [facility], [facility] Flecainide Acetate 100 MG Oral Tablet 06/16/2022 Pro vider: Diagnosis: Last Documented On 3 4:01PM By Elif Chicas ; [facility], [facility] Metoprolol Succinate ER 25 M G Oral Tablet Extended Release 24 Hour 06/12/2022 Provider: Diagnosis: Last Documented On 3 4:00PM By Elif Chicas ; [facility], [facility] predniSONE 10 MG Oral Tablet 05/02/2022 Provider: FATOUMATA LESLIE MD Diagnosis: Last Documented On 3 4:00PM By Elif Chicas ; [facility], [facility] Lagevrio 200 MG Oral Capsule 04/22/2022 Provider: FATOUMATA LESLIE MD Diagnosis: Last Documented On 3 4:00PM By Elif Chicas ; [facility], [facility] Lagevrio 200 MG Oral Capsule 04/22/2022 Provider: FATOUMATA LESLIE MD Diagnosis: Last Documented On 3 4:00PM By Elif Chicas ; [facility], [facility] Mupirocin 2% External Ointment 04/16/2022 Provider: Eliseo Cuevas MD Diagnosis: three times a day Apply to n ostrils 3 time a day 5 days prior to surgery. Last Documented On 2 2:50PM By Gilda Kamara ; [facility], [facility] MegaRed Yellow [place]-3 Krill Oil 350 MG Oral Capsule 10/26/19 21 Provider: Diagnosis: Last Documented On 1 1:15PM By Betzaida Donald ; [facility], [facility] Sudafed 30 MG Oral Tablet 10/25/2020 Provider: Diagnosis: Last Documented On 1 1:15PM By Betzaida Donald ; [facility], [facility] Mucinex Allergy 180 MG Oral Tablet 10/25/2020 Provid er: Diagnosis: Last Documented On 1 1:14PM By Betzaida Donald ; [facility], [facility] Warfarin Sodium 7.5 MG Oral Tablet 10/17/2020 Provid er: Diagnosis: Last Documented On 1 2:43PM By Greer Kingston ; [facility], [facility] Ezetimibe 10 MG Oral Tablet 09/11/2020 Provider: FATOUMATA LESLIE MD Diagnosis: Last Documented On 1 1:13PM By Betzaida Donald ; [facility], [facility] Digoxin 125 MCG Oral Tablet 07/21/2020 Provider: Diagnosis: Last Documented On 1 2:44PM By Greer Kingston ; [facility], [facility] CoQ-10 10 MG Oral Capsule 10/20/2019 Provider: Diagnosis: Last Documented On 0 4:01PM By Greer Kingston ; [facility], [facility] D3-1000 25 MCG (1000 UT) Oral Capsule 10/20/2019 Pro vider: Diagnosis: Last Documented On 0 4:00PM By Greer Kingston ; [facility], [facility] Omeprazole 20 MG Oral Ta blet Delayed Release Disintegrating 10/20/2019 Provider: Diagnosis: Last Documented On 0 3:59PM By Greer Kingston ; [facility], [facility] Probiotic Maximum Strength Oral Capsule 10/20/2019 Provider: Diagnosis: Last Documented On 0 3:58PM By Greer Kingston ; [facility], [facility] Citalopram Hydrobromide 10 MG Oral Tablet 10/20/2019 Provider: Diagnosis: Last Documented On 0 3:56PM By Greer Kingston ; [facility], [facility] Flecainide Acetate 100 MG Oral Tablet 10/20/2019 Pro vider: Diagnosis: Last Documented On 0 3:55PM By Greer Kingston ; [facility], [facility] Past Medications on file oxyCODONE HCl 5 MG Oral Tablet 05/29/2022 - 06/03/2022 Provider: Eliseo ceja MD Diagnosis: 1-2 po q 4-6h Last Documented On 3 12:32PM By Hima Cuevas ; [facility], [facility] traMADol HCl 50 MG Oral Tablet 05/29/2022 - 06/03/2022 Provider: Eliseo ceja MD Diagnosis: 1-2 po q 4-6h Last Documented On 3 12:32PM By Hima Cuevas ; [facility], [facility] Lovenox 40 MG/0.4ML Injection Solution Prefilled Syringe 05/26/2022 - 05/30/2022 Provider: Eliseo ceja MD Diagnosis: 1 sub q injection 1 time day Last Documented On 3 8:35AM By Hima Cuevas ; [facility] Cefadroxil 500 MG Oral Capsule 05/21/2022 - 05/24/2022 Provider: Eliseo ceja MD Diagnosis: twice a day Last Documented On 3 12:08PM By Hima Cuevas ; [facility] Colace 100 MG Oral Capsule 05/21/2022 - 08/19/2022 Provider: Eliseo ceja MD Diagnosis: 1-2 tabs daily Last Documented On 3 12:08PM By Hima Cuevas ; [facility] traMADol HCl 50 MG Oral Tablet 05/21/2022 - 05/26/2022 Provider: Eliseo ceja MD Diagnosis: 1-2 po q 4-6h Last Documented On 3 12:08PM By Hima Cuevas ; [facility] Acetaminophen 500 MG Oral Tablet 05/21/2022 - 06/20/2022 Provider: Eliseo Cuevas MD Diagnosis: 2 three times a day Last Documented On 3 12:08PM By Hima Cuevas ; [facility] oxyCODONE HCl 5 MG Oral Tablet 05/21/2022 - 05/26/2022 Provider: Eliseo ceja MD Diagnosis: 1-2 po q 4-6h Last Documented On 3 12:08PM By Hima Cuevas ; [facility] Ondansetron HCl 4 MG Oral Tablet 05/21/2022 - 05/26/2022 Provider: Eliseo Cuevas MD Diagnosis: [id number] Last Documented On 3 12:08PM By Hima Cuevas ; [facility] Meloxicam 15 MG Oral Tablet 05/21/2022 - 06/20/2022 Provider: Eliseo ceja MD Diagnosis: once a day Last Documented On 3 12:08PM By Hima Cuevas ; [facility] HYDROcodone-Acetaminophen 7. 5-325 MG Oral Tablet 10/25/2020 - 11/14/2020 Provider: Brandon Wilks MD Diagnosis: twice a day Last Documented On 1 12:08PM By Dr. Wilks ; [facility] [place] 5-325MG Oral Tablet 12/23/2018 - 01/22/2019 Provider: Eliseo ceja MD Diagnosis: 1-2 po q6h prn pain Last Documented On 9 3:09PM By Reanna Gutierrez ; [facility] Acetaminophen 500MG Oral Tablet 12/08/2018 - 01/07/2019 Provider: Eliseo Cuevas MD Diagnosis: 2 three times a day FOR BACON RGERY DO NOT FILL UNTIL 12/14/18 Last Documented On 9 4:10PM By Reanna Gutierrez ; [facility] traMADol HCl 50MG Oral Tablet 12/08/2018 - 12/13/2018 Provider: Eliseo ceja MD Diagnosis: 1-2 po q6h prn pain FOR BACON RGERY DO NOT FILL UNTIL 12/14/18 Last Documented On 9 4:06PM By Reanna Gutierrez ; [facility], [facility] Neurontin 300MG Oral Capsule 12/08/2018 - 03/08/2019 Provider: lEiseo ceja MD Diagnosis: 1 every bedtime FOR SURGER Y DO NOT FILL UNTIL 12/14/18 Last Documented On 9 4:05PM By Reanna Gutierrez ; [facility] Dilaudid 2MG Oral Tablet 12/08/2018 - 12/10/2018 Provi gaby: Eliseo Cuevas MD Diagnosis: 1-2 po q6h prn pain (RESCUE PAIN) FOR SURGERY DO NOT FILL UNTIL 12/14/18 Last Documented On 9 4:05PM By Reanna Gutierrez ; [facility] Colace 100MG Oral Capsule 12/08/2018 - 03/08/2019 Provider: Eliseo ceja MD Diagnosis: 1-2 tabs daily FOR SURGERY DO NOT FILL UNTIL 12/14/18 Last Documented On 9 4:10PM By Reanna Gutierrez ; [facility] Mupirocin 2% External Ointment 11/09/2018 - 11/14/2018 Provider: Eliseo ceja MD Diagnosis: Apply to nostrils 3 time a d ay 5 days prior to surgery. Last Documented On 9 10:40AM By Gilda Kamara ; [facility] [place] 5-325MG Oral Tablet 12/24/2017 - 12/31/2017 Prov ider: Brandon Wilks MD Diagnosis: 1-2 po q 4-6h PRN Last Documented On 8 5:31PM By Dr. Wilks ; [facility] [place] 7.5-325 MG OR TABS 12/24/2017 - 01/03/2018 Provi gaby: Brandon Wilks MD Diagnosis: Last Documented On 8 11:35AM By Marcelle Croft ; [facility] Voltaren Gel 1% External 10/14/2017 - 12/13/2017 Provi gaby: Alanna Jensen MD Diagnosis: use as directed Last Documented On 8 10:09AM By Sayra Evans ; [facility] Lovenox 40MG/0.4ML Subcutaneous Solution 05/06/2017 - 05/26/2017 Provider: Alanna castaneda MD Diagnosis: use as directed/1 INJECTION PER DAY FOR 5 DAYS PRIOR TO PROCEDER & 1 INJECTION PER DAY FOR 5 DAYS AFTER PROCERDER/ Last Documented On 8 4:29PM By Sayra Evans ; [facility] [place] 5-325 MG Tablet 10/29/2016 - 11/05/2016 Provider : Alanna Jensen MD Diagnosis: 1-2 po q 4-6h PRN Last Documented On 7 11:55AM By Camryn Paez ; [facility] Medrol 4 MG Tablet Therapy Pack 02/14/2016 - 02/20/2016 Provider: Alanna chin MD Diagnosis: use as directed by pharmacy Last Documented On 6 3:16PM By Heather Langley ; [facility] [place] 5-325 MG Tablet 12/03/2015 - 12/18/2015 Provider : Alanna Jensen MD Diagnosis: 1-2 po q 4-6h Last Documented On 6 1:26PM By Heather Langley ; [facility] [place] 7.5-325 MG Tablet 11/16/2015 - 12/16/2015 Provid er: Alanna Jensen MD Diagnosis: 1 every 4 - 6 hours PO PRN Last Documented On 6 2:09PM By Lani Marquez ; [facility] Voltaren 1% TD GEL 01/31/2013 - 03/02/2013 Provider: Alanna Jensen MD Diagnosis: DEGENERATIVE MIKEY NT DISEASE KNEE apply 4 grams to affected ar ea 4 times a day//ks Last Documented On 3 2:16PM By Ann Marie Sutherland ; [facility] Lortab 10-500 MG OR TABS 09/14/2012 - 09/21/2012 Provi gaby: Alanna Jensen MD Diagnosis: [id number] [facility] jsb/df Last Documented On 3 8:56AM By Jose F Gutierrez ; [facility] Lortab 10-500 MG OR TABS 08/06/2012 - 08/13/2012 Provi gaby: Alanna Jensen MD Diagnosis: [phone] [employer] jsb/df Last Documented On 3 1:59PM By Jose F Gutierrez ; [facility] Lortab 10-500 MG OR TABS 07/09/2012 - 07/16/2012 Provi gaby: Alanna Jensen MD Diagnosis: [id number] [facility] jsb Last Documented On 3 12:36PM By Jose F Gutierrez ; [facility] Lortab 10-500 MG OR TABS 07/01/2012 - 07/08/2012 Provi gaby: Alanna Jensen MD Diagnosis: [phone] [facility] df Last Documented On 3 1:53PM By Jose F Gutierrez ; [facility] Xarelto 10 MG OR TABS 06/14/2012 - 07/05/2012 Provider : Alanna Jensen MD Diagnosis: sx on 06-15-/kw Last Documented On 3 1:31PM By Danielle Dobson ; [facility] Lortab 10-500 MG OR TABS 06/14/2012 - 06/21/2012 Provi gaby: Alanna Jensen MD Diagnosis: sx on 06-15-12 Last Documented On 3 1:31PM By Danielle Dobson ; [facility] Medications Administered Includes: Administered Medications from this encounter No Administered Medications Recorded Vital Signs Includes: Vital Signs from this encounter Vital Name 08/18/2023 03:29P Height (in) 65 Weight (lb) 172 Body Mass Index 28.6 Body Surface Area 1.9 Note: tm Last Documented: On 08/18/2023 3:30PM ; [facility], [facility] Results Includes: Results discussed during this encounter No Results Recorded For Specified Dates History of Present Illness Includes: History of Present Illness from this encounter MAYCOL Skaggs is an 83 year old female. - Allergy list reviewed - Problem list reviewed - Medication list reviewed Social History Description Last Updated Tobacco non-user 04/14/2024 Last Documented On 4 3:03PM ; [facility] Alcohol use 10/25/2020 Last Documented On 4 3:03PM ; [facility] Recent change in diet 10/25/2020 Last Documented On 4 3:03PM ; [facility] Non-smoker 10/17/2020 Last Documented On 4 3:03PM ; [facility] Not exercising regularly 10/31/2019 Last Documented On 4 3:03PM ; [facility] Smoking Status Unknown Procedures and Surgical History Includes: Procedures from this encounter Procedures Code Diagnosis Performing Provider Service L ocation Service Date use of tobacco assessment performed 1000F Last Documented On 4 3:03PM ; [facility] patient screened for future fall risk: documentation of any fall with injury in past year 1100F Last Documented On 4 3:03PM ; [facility] review of medications documented 1160F Last Documented On 4 3:30PM ; [facility] follow-up visit in one month Last Documented On 4 3:03PM ; [facility] referral to physician Last Documented On 4 3:03PM ; [facility], [facility] an X-ray was performed 76755 Last Documented On 4 3:03PM ; [facility], [facility] Surgical History Last Updated History of back surgery 11/2019-Kypho T1 2 10/17/2020 Last Documented On 4 3:03PM ; [facility], [facility] History of heart surgery ablation 2017 0 10/31/2019 Last Documented On 4 3:03PM ; [facility], [facility] History of total hip replacement left hi p 2019 10/31/2019 Last Documented On 4 3:03PM ; [facility], [facility] History of total knee arthroplasty right knee 201210/31/2019 Last Documented On 4 3:03PM ; [facility], [facility] History of hysterectomy 10/16/2014 Last Documented On 4 3:03PM ; [facility], [facility] Medical History Includes: Medical History addressed during this encounter Description Last Updated Recent immunization for flu 02/01/2022 1 06/15/2023 Last Documented On 4 3:03PM ; [facility], [facility] Recent immunization for pneumococcal pne umonia 201304/14/2024 Last Documented On 4 3:03PM ; [facility], [facility] History of Irregular Heartbeat A-fib; ep isode after TKA- cadiovert needed 06/16/2022 Last Documented On 4 3:03PM ; [facility], [facility] blood transfusions 10/25/2020 Last Documented On 4 3:03PM ; [facility], [facility] Arthritis 10/25/2020 Last Documented On 4 3:03PM ; [facility], [facility] Heartburn / Acid Reflux 10/25/2020 Last Documented On 4 3:03PM ; [facility], [facility] History of Blood Clots 10/25/2020 Last Documented On 4 3:03PM ; [facility], [facility] History of Blood Transfusion 10/25/2020 Last Documented On 4 3:03PM ; [facility], [facility] History of Cancer 10/25/2020 Last Documented On 4 3:03PM ; [facility], [facility] History of Fractures 10/25/2020 Last Documented On 4 3:03PM ; [facility], [facility] History of heart disease 10/25/2020 Last Documented On 4 3:03PM ; [facility], [facility] Hypertension 10/25/2020 Last Documented On 4 3:03PM ; [facility], [facility] Irregular Heartbeat 10/25/2020 Last Documented On 4 3:03PM ; [facility], [facility] Past Surgical History: wrist repair ~hand sx ~gallstone sx 2011 ~mastectomy and reconstruction ~colonoscopy 2018 10/25/2020 Last Documented On 4 3:03PM ; [facility], [facility] Previous Fractures 10/25/2020 Last Documented On 4 3:03PM ; [facility], [facility] Sleep Apnea 10/25/2020 Last Documented On 4 3:03PM ; [facility], [facility] Use of CPAP 10/25/2020 Last Documented On 4 3:03PM ; [facility] Back surgery 12/15/2017 L4-5 Posterior Decompression and Fusion @ [facility] ~11/07/2019 T12 Kyphyoplasty 10/25/2020 Last Documented On 4 3:03PM ; [facility] Heart surgery pacemaker 12/2019 ~Afib ab lation 10/25/2020 Last Documented On 4 3:03PM ; [facility], [facility] History of Gallbladder 10/25/2020 Last Documented On 4 3:03PM ; [facility], [facility] Hysterectomy 10/25/2020 Last Documented On 4 3:03PM ; [facility] Total hip replacement 12/2018-Left hip 0 10/17/2020 Last Documented On 4 3:03PM ; [facility], [facility] A previous fracture 10/31/2019 Last Documented On 4 3:03PM ; [facility] Gallbladder disease 2018 10/31/2019 Last Documented On 4 3:03PM ; [facility] History of diverticulitis of colon 11/15 Last Documented On 4 3:03PM ; [facility] History of osteoporosis 11/16/2015 Last Documented On 4 3:03PM ; [facility] A history of cancer 10/16/2014 Last Documented On 4 3:03PM ; [facility] Arthritic joint problems 10/16/2014 Last Documented On 4 3:03PM ; [facility], [facility] Family History Includes: Family History addressed during this encounter Description Last Updated Family history of cancer mother ~father 11/16/2015 Last Documented On 4 3:03PM ; [facility] Family history of diabetes mellitus moth er 11/16/2015 Last Documented On 4 3:03PM ; [facility] Family history of heart disease mother ~ father 11/16/2015 Last Documented On 4 3:03PM ; [facility], [facility] Family history of hypertension mother ~f ather 11/16/2015 Last Documented On 4 3:03PM ; [facility] Family history of osteoporosis mother Last Documented On 4 3:03PM ; [facility], [facility] Family history of rheumatoid arthritis m other 11/16/2015 Last Documented On 4 3:03PM ; [facility] Family history of thromboembolic disease mother 11/16/2015 Last Documented On 4 3:03PM ; [facility], [facility] Maternal history of hypertension 015 Last Documented On 4 3:03PM ; [facility] Maternal history of osteoporosis 015 Last Documented On 4 3:03PM ; [facility], [facility] Review of Systems Includes: Review of Systems [...] ctive Last Documented On 4 12:09PM ; [facility], [facility] Statins Support Allergy 06/09/2017 Act citlalli Last Documented On 4 12:09PM ; [facility], [facility] Percocet Allergy 03/10/2012 Active Last Documented On 4 12:09PM ; [facility], [facility] Bactrim Allergy 11/16/2015 Active Last Documented On 4 12:09PM ; [facility], [facility] Encounters Encounter Provider Location Date Check-In Time Check-Out Time Diagnosis Follow Up Hernan Gold PA-C [facility] 4 3:15PM 3:34PM Overweight Insurance Includes: Active Insurance Policies Plan Name Member ID Group # Subscriber Relationship Effect citlalli Dates 1 - Medicare Part B [facility] [id number] Luz Howard 04/03/2007 - Unknown 2 - [facility] [id number] PLAN F Luz Skaggs Self 2011 - Unknown Clinical Notes Includes: Clinical Notes from this encounter * Progress note Date Encounter Last Documented by 08/18/2023 Follow Up Last documented on 09/01/2023; 8:29 AM, Hernan Gold PA-C; [facility], [facility] Active Problems & Conditions - Joint Pain [...] directed 0 days, 0 refills - Ipratropium [place] 0.03% Nasal Solution take as directed 0 days, 0 refills - Lagevrio 200 MG Oral Capsule 5 days, 0 refills - Lagevrio 200 MG Oral Capsule 5 days, 0 refills - MegaRed [place]-3 Krill Oil 350 MG Oral Capsule once [...] refills - Sudafed 30 MG Oral Tablet [id number] 0 days, 0 refills - Warfarin Sodium [...] 12/15/2017 L4-5 Posterior Decompression and Fusion @ [facility] [place] [facility] 11/07/2019 T12 Kyphyoplasty - Total hip [...] Care Team - FATOUMATA LESLIE MD - [employer]
--- OUTSIDE RECORDS SUMMARY | 2025-03-13 14:49 | XMS_ITS | Encounter Summary ---
Author Organization [employer] ([place], [place], [place], [place], [place]) Address [address] [place] [address] Care Team Providers Care Global Implementation Manager Name Role Phone Ferny Gentile Primary Care Provider [phone] Encounter Details Date Type Department Care Team (Late st Contact Info) Description 12/15/2018 Transcribed Document [facility] [place] [facility] [place] [address] ProviderArt MD [address] [place] [address] Social History Tobacco Use Types Packs/Day [...] Historical ProviderMD - 12/15/2018 2:00 AM CDT Embalmer/Funeral Director Details Entered On: 12/15/2018 1:35 EDT Performed [...] on filedocumented in this encounter Care Teams Global Implementation Manager Relationship Specialty Start Date End Date Ferny Gentile [address] [place] [address] PCP - General 05/22/22 documented as of this encounter
--- OUTSIDE RECORDS SUMMARY | 2025-03-13 14:49 | XMS_ITS | Encounter Summary ---
Author Organization [employer] ([place], [place], [place], [place], [place]) Address [address] [place] [address] Care Team Providers Care Grounds Maintenance Worker Name Role Phone SeferinoSakinat Primary Care Provider [phone] Encounter Details Date Type Department Care Team (Late st Contact Info) Description 12/15/2018 Transcribed Document [facility] [place] [facility] [place] [address] ProviderArt MD [address] [place] [address] Social History Tobacco Use Types Packs/Day [...] Conversion Note - Historical ProviderMD - 12/15/2018 4:49 AM CDT Event [...] on filedocumented in this encounter Care Teams Grounds Maintenance Worker Relationship Specialty Start Date End Date Ferny Gentile [address] [place] [address] PCP - General 05/22/22 documented as of this encounter
--- NOTE | 2025-03-13 15:15 | CA_ITS ---
FINAL REPORT TECHNIQUE: Compression fernandez scale and Doppler evaluation CLINICAL HISTORY: CALF PAIN COMPARISON: None FINDINGS: Femoral and popliteal veins in the right lower extremity show normal compressibility and flow. Visualized portion of the calf veins are patent by Doppler exam. IMPRESSION: No evidence of right lower extremity deep venous thrombosis Reviewed, Interpreted and Dictated by Cy Mauricio MD Transcribed by Teresita Sequeira Authenticated and [facility]
== END 2025-03-13 23:59 | disposition home or self-care (01) ==
LOC: RT 14:45
PROVIDERS: PCP Internal Medicine; Visit Provider Internal Medicine
DX: I80.291 Phlebitis and thrombophlebitis of other deep vessels of right lower extremity (principal)
CPT/HCPCS: 93971

== ENCOUNTER 2025-03-24 10:06 | Outpatient (CLI) | payer MEDICARE, OTHER, SELFPAY ==
--- OUTSIDE RECORDS SUMMARY | 2019-07-05 13:42 | XMS_ITS | Encounter Summary ---
[facility] Address [address] [place] [address] Care Team Providers Care Product Inspection Supervisor Name Role Phone Ferny Gentile MD Primary Care Provider Encounter Details Date Type Department Care Team (Late st Contact Info) Description 07/05/2019 1:42 PM EST Hospital Encounter [facility] PULMONARY & CRITICAL CARE MEDICINE [address] [place] [address] Social History Tobacco Use Types Packs/Day Years Used Date Smoking Tobacco: Never Passive Smoke Exposure: Past Smokeless Tobacco: Never Alcohol Use Standard Drinks/Week Comments Yes 0 (1 standard drink = 0.6 oz pur e alcohol) occasional AUDIT-C Answer Date Recorded Q1: How often do you have a drink containing alc ohol? Monthly or less 08/04/2022 Q2: How many drinks containi ng alcohol do you have on a typical day when you are drinking? 1 or 2 08/04/2022 Q3: How often do you have si x or more drinks on one occasion? Never 08/04/2022 Exercise Vital Sign Answer Date Recorde d On average, how many days pe r week do you engage in moderate to strenuous exercise (like a brisk walk)? 0 days 06/09/2022 On average, how many minutes do you engage in exercise at this level? 0 min 06/09/2022 Hunger Vital Sign Answer Date Recorded Within the past 12 months, y ou worried that your food would run out before you got the money to buy more. Never true 06/09/19 23 Within the past 12 months, t he food you bought just didn't last and you didn't have money to get more. Never true 06/09/2022 Abuse Screen Answer Date Recorded Feels Unsafe at Home or Work/School no 08/04/2022 Feels Threatened by Someone no 07/2022 Does Anyone Try to Keep You From Having Contact with Others or Doing Things Outside Your Home? no 08/04/2022 Physical Signs of Abuse Present no 08/04/2022 Housing Stability Answer Date Recorded Current Living Arrangements apartment 08/2022 Potentially Unsafe Housing Conditions Not on ruel e 08/05/2022 Disabilities Answer Date Recorded Difficulty Concentrating, Remembering or Making Decisions no 08/04/2022 Difficulty Managing Errands Independently no 08/04/2022 Comments No Sex and Gender Information Value Date Recorded Sex Assigned at Female 09/13/2024 10:08 PM EDT Legal Sex Female 10:33 AM EDT Gender Identity Not on file Sexual Orientation Not on file documented as of this encounter Functional Status documented as of this encounter Plan of Treatment Upcoming Encounters Date Type Department Care Team (Late st Contact Info) Description 06/30/2025 11:30 AM EST Office Visit [facility] RHEUMATOLOGY [address] [facility] [address] [place] [address] David Bernstein MD 330 [facility] [address] [place] [address] 10/03/2025 2:45 PM EDT Office Visit [facility] CARDIOLOGY [address] [facility] [address] [place] [address] Yon Govea MD [address] [facility] [address] [place] [address] 06/14/2026 1:30 PM EST Office Visit [facility] CARDIOLOGY [address] [place] [address] [address] [place] [address] Wojciech Flores MD [address] [place], [place] [id number] Pending Results Name Type Priority Associated Diagnoses Date /Time XR Chest PA & Lateral Imaging Routine SOB (shortness of breath) 07/05/2019 1:56 PM EST documented as of this encounter Visit Diagnoses Not on filedocumented in this encounter Additional Health Concerns Infection Onset Date Last Indicated Resolved Time COVID Screen (preop/placement) 12/11/2019 12/11/2019 12/12/2019 2:04 PM EDT COVID Screen (preop/placement) 02/12/2020 02/12/2020 02/14/2020 7:46 AM EDT COVID Screen (preop/placement) 01/15/2021 01/15/2021 01/15/2021 10:59 PM EDT documented as of this encounter Care Teams Product Inspection Supervisor Relationship Specialty Start Date End Date Ferny Gentile MD [address] [facility] [address] [place] [address] PCP - General 06/11/15 documented as of this encounter
--- OUTSIDE RECORDS SUMMARY | 2025-02-21 09:45 | XMS_ITS | Encounter Summary ---
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 Name Role Phone Ferny Gentile MD Primary Care Provider [phone] Reason for Visit * Reason Comments PAF 6 month follow up P AF Encounter Details Date Type Department Care Team (Late st Contact Info) Description 02/21/2025 10:45 AM EDT Office Visit [facility] CARDIOLOGY [address] [facility] [address] [place] [phone] Sorin Kearney PA-C [address] [facility] [address] [place] [id number] 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); 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; 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; PVC (premature ventricular contraction); Presence of cardiac pacemaker Social History Tobacco Use Types Packs/Day Years [...] Sign Reading Time Taken Comments Blood Pressure 138/76 02/21/2025 10:38 AM EDT Pulse 70 02/21/2025 10:38 AM EDT Temperature - - Respiratory Rate - - Oxygen Saturation 97% 02/21/2025 10:38 AM EDT Inhaled Oxygen Concentration - - Weight 82.6 kg (182 lb) 02/21/2025 10:38 AM EDT Height 162.6 cm (5' 4 ) 02/21/2025 10:38 AM EDT Body Mass Index 31.24 02/21/2025 10:38 AM EDT documented in this encounter Progress Notes * Sorin Kearney PA-C - 02/21/2025 10:45 AM EDTAssociated Order(s): ECG 12 Lead Images from the original note were not included. Cardiac Electrophysiology Outpatient Note [facility] Office Visit Luz Skaggs [id number] 09/20/2024 Primary Care Physician: Ferny Gentile MD Referred By: No ref. provider found Subjective Chief Complaint Patient presents with PAF 6 month follow up PAF PROBLEM LIST: Paroxsymal 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 CHADSVASC = 3 on Coumadin Flecainide previously Tikosyn initiated 2022 Sick sinus syndrome S/p DDD PPM implant, STJ, [place]otter Heart failure with improved LVEF (HFimpEF) TTE 08/2022: LVEF 37%, LA volume severely increased TTE 10/2024: LVEF 56-60%, grade 1 diastolic dysfunction, RVSP 35-45, mild AI OSIRIS On CPAP Multifocal PVCs Echo 12/2020: EF 60%, grade I diastolic dysfunction, RV borderline dilated. RVSP < 35 mmHg. Mild AR. History of breast cancer L rsxn 92-implant in place S/p lumbar fusion 2017 [facility]. History of Present Illness: Luz Skaggs is a 84 y.o. female who presents to my electrophysiology clinic for follow up of persistent 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 maintained on Tikosyn, PVCs, heart failure with improved LVEF, and bradycardia s/p dual-chamber pacemaker. She had previously been well controlled on flecainide, and was also on this for PVCs. She had worsening of her 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 in May following a knee replacement. This led to significant worsening of her symptoms and heart failure. We therefore decided to switch her from flecainide to Tikosyn. She was last seen in our office around [address] Govea. Since then, she has undergone echocardiogram showing improvement of her LVEF to normal. She still remains active and very social withactivities almost every day. Her daughter wants her to slow down a little bit. She reports some fatigue and dyspnea on exertion with some of these activities but overall is happy with her functional capacity. She has upcoming colonoscopy. Past Medical History: Diagnosis Date Allergic rhinitis Arrhythmia PVC'S Holter Jan 2015-=9% PVC Randolph Arthritis Atrial fibrillation PAF per event recorder April 2015- CHADs-VASc =2 Breast injury 05/2016 PT FELL & FRACTURED RT RIBS & BRUISED RT BREAST Diverticulitis Drug therapy 1991 GERD (gastroesophageal reflux disease) H/O chest x-ray 06/01/2015 No acute radiographic chest abnormality. No change from prior chest x-ray on March 23, 2015 given differing technique H/O chest x-ray 03/23/2015 S/P left mastectomy with heart enlarged and no acute parenchymal disease H/O echocardiogram 01/23/2015 Mild concentric LVG. Est EF 55-60%. E to A reveral in mitral valve flow pattern sugg of diastolic dysfunction. Mild aortuc cusp sclerosis. Mild to mod aortic reg. No mitral valve prolapse. No pulmonary htn. a trivial pericardal efffusion visualized. No dilation of aortic root. Venous system normal History of deep venous thrombosis History of PFTs 06/01/2015 No obstruction or restriction. Low MVV. No air trapping or hyperinflation. Low DLCO howver likely underestimated due to IVC less than 85% of VC History of transfusion after hysterectomy Hyperlipidemia Intolerant to statin therapy Neoplasm of breast, female, malignant 1991 LEFT OSIRIS on CPAP CPAP AT HOME. SETTINGS 6-16 AUTO PAP; WILL BRING CPAP MASK AND TUBING. 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 Valvular disease Echo January 2015: EF 55-605 mild to moderate Aortic Regurgitation Diastolic dysfunction Wears prescription eyeglasses Past Surgical History: Procedure Laterality Date ABLATION OF DYSRHYTHMIC FOCUS AUGMENTATION MAMMAPLASTY Left 1992 BACK SURGERY 12/15/2017 BREAST AUGMENTATION Left BREAST BIOPSY Right 08/2015 BREAST EXCISIONAL BIOPSY Left 1992 CARDIAC ELECTROPHYSIOLOGY PROCEDURE N/A 12/16/2016 Procedure: Ablation PVC, Hold Flecainide for 5 days prior; Surgeon: Kenrick Palacios DO; Location: [facility] INVASIVE LOCATION; Service: CARDIAC ELECTROPHYSIOLOGY PROCEDURE N/A 12/14/2019 Procedure: Device Implant- dual chamber pacemaker. Hold coumadin x 2 days.; Surgeon: Barry Hennessy MD; Location: [facility] EP INVASIVE LOCATION; Service: Cardiology; Laterality: N/A; CATARACT EXTRACTION CHOLECYSTECTOMY COLONOSCOPY 2012 EYE SURGERY cataract HAND SURGERY Left HYSTERECTOMY 1988 INSERT / REPLACE / REMOVE PACEMAKER 2019 KYPHOPLASTY MASTECTOMY Left 1991 OOPHORECTOMY 1988 REDUCTION MAMMAPLASTY Right REDUCTION & LIFT REPLACEMENT TOTAL KNEE Bilateral TONSILLECTOMY TOTAL HIP ARTHROPLASTY Left Family History Problem Relation Name Age of Onset Heart disease Mother Angie Arthritis Mother Angie Heart failure Mother Angie COPD Mother Angie Dementia Mother Angie Cancer Mother Angie Osteoporosis Mother Angie Heart failure Father Simon Dementia Father Simon Kidney failure Father Simon No Known Problems Sister Osteoporosis Daughter Arthritis Daughter Sebastian's thyroiditis Daughter Thyroid cancer Daughter Hemochromatosis Daughter Breast cancer Neg Hx Endometrial cancer Neg Hx Ovarian cancer Neg Hx Social History Socioeconomic History Marital status: Tobacco Use Smoking status: Never Passive exposure: Past Smokeless tobacco: Never Vaping Use Vaping status: Never Used Substance and Sexual Activity Alcohol use: Yes Comment: occasional Drug use: Never Sexual activity: Defer Current Outpatient Medications: acetaminophen (TYLENOL) 500 MG [...] (Twelve) Hours., Disp: 180 capsule, Rfl: 3 enoxaparin sodium (LOVENOX) 80 MG/0.8ML solution prefilled syringe syringe, Inject 0.8 mL under theskin into the appropriate area as directed Every 12 (Twelve) Hours. Or as directed by anticoagulation clinic. *Start on 02/26/25*, Disp: 8 mL, Rfl: 0 estradiol (ESTRACE) 0.1 MG/GM vaginal cream, As [...] drops by mouth Daily., Disp: , Rfl: rwkprw-cxtpkbvxv-xfdmwibme sulfates (SUPREP) 17.5-3.13-1.6 GM/177ML solution oral solution, DILUTE;DRINK FULL AMOUNT EARLY EVENING BEFORE AND NEXT MORNING AT LEAST 4-5 HR BEFORE PROCEDURE; FOLLOW W 960 ML WATER PO, Disp: , Rfl: warfarin (COUMADIN) 5 MG tablet, TAKE 1 TO 1 & 1/2 (ONE TO ONE & ONE-HALF) TABLETS BY MOUTHONCE DAILY OR DIRECTED BY THE ANTICOAGULATION CLINIC, Disp: 135 tablet, Rfl: 0 Allergies: Allergies Allergen Reactions Oxycodone-Acetaminophen Headache Pravastatin Myalgia MUSCLE WEAKNESS Sulfamethoxazole-Trimethoprim Rash Objective Vital Signs: Blood pressure 138/76, pulse 70, height 162.6 cm (64 ), weight 82.6 kg (182 lb), SpO2 97%, not currently . PHYSICAL EXAM General appearance: Awake, alert, cooperative Head: Normocephalic, without obvious abnormality, atraumatic Lungs: Clear to ascultation bilaterally Heart: Regular rate and rhythm, no murmurs, no lower extremity swelling Skin: Skin color, turgor normal, no rashes or lesions Neurologic: Grossly normal Lab Results Component Value Date GLUCOSE 98 06/15/2024 CALCIUM 9.7 06/15/2024 NA 139 06/15/2024 K 4.6 06/15/2024 CO2 23.4 06/15/2024 CL 103 06/15/2024 BUN 16 06/15/2024 CREATININE 1.16 (H) 06/15/2024 EGFRIFNONA 47 (L) 12/10/2020 BCR 13.8 06/15/2024 ANIONGAP 12.6 06/15/2024 Lab Results Component Value Date WBC 6.39 06/15/2024 HGB 13.9 06/15/2024 HCT 41.1 06/15/2024 MCV 89.7 06/15/2024 PLT 219 06/15/2024 Lab Results Component Value Date INR 2.70 02/17/2025 INR 1.90 02/08/2025 INR 2.90 02/03/2025 PROTIME 23.0 (H) 08/06/2022 PROTIME 27.8 (H) 08/05/2022 PROTIME 27.4 (H) 08/04/2022 Lab Results Component Value Date TSH 2.080 06/07/2022 Results for orders placed during the hospital encounter of 10/28/24 Adult Transthoracic Echo Complete W/ Cont if Necessary Per Protocol 10/28/2024 5:06 PM Interpretation Summary Left ventricular systolic function is normal. Calculated left ventricular EF = 56% Left ventricularejection fraction appears to be 56 - 60%. Left ventricular diastolic function is consistent with (grade I) impaired relaxation. Estimated right ventricular systolic pressure from tricuspid regurgitation is mildly elevated (35-45 mmHg). There is a small (<1cm) pericardial effusion. There is thickening of the aortic valve. Mild aortic valve regurgitation is present. I personally viewed and interpreted the patient's EKG/Telemetry/lab data ECG 12 Lead Date/Time: 02/21/2025 12:45 PM Performed by: Sorin Kearney PA-C Authorized by: Sorin Kearney PA-C Comparison: compared with previous ECG from 09/28/2024 Similar to previous ECG Rhythm comments: Atrial paced rhythm with somewhat frequent monomorphic PVCs Clinical impression: abnormal EKG Luz Skaggs reports that she has never smoked. She has been exposed to tobacco smoke. She has never used smokeless tobacco. Advance Care Planning Advance Care Planning: ACP discussion was held with the patient during this visit. Patient does nothave an advance directive, information provided. Assessment & Plan 1. Chronic HFrEF (heart failure with reduced ejection fraction) Echo 10/2024 with recovered LVEF Euvolemic on exam today. Patient reports good functional capacity but has some mild shortness of breath on exertion 2. Paroxysmal 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/long-term current use of antiarrhythmic medical therapy On low-dose Tikosyn 125 mcg twice daily Single A-fib episode lasting 11 hours since last device check Continue warfarin per anticoagulation clinic instruction 3. PVC (premature ventricular contraction) She has had decently frequent PVCs with around 14% on previous pacemaker burden in September 2023. Her device was switched to AAIR at some point since then to decrease ventricular pacing so as not to worsen heart failure. Unfortunately, with this mode change we are unable to detect PVCs on device If she were to have function limiting symptoms believed to be related to this, we could place monitor versus change pacemaker back to DDDR to assess PVC burden and make plan accordingly. Will continue to monitor for now 4. Presence of cardiac pacemaker Device was previously programmed to AAI to minimize ventricular pacing with previous LV systolic dysfunction. Previous pacing burden was 12% in the ventricle despite all optimization at that time. The patient [place] dual-chamber pacemaker now AAIR was interrogated the office today demonstrate acceptable device function with 5 years left on the battery, acceptable threshold impedance value,32% atrial pacing. Single A-fib episode lasting 11 hours on 01/15/2025 otherwise no events. There was some SONU noise which was new so RA sensitivity was decreased to try and break this out. Follow Up: Return in about 6 months (around 08/22/2025). Thank you for allowing me to participate in the care of your patient. Please do not hesitate to contact me with additional questions or concerns. Sorin Kearney PA-C Cardiac Electrophysiology [facility] documented in this encounter Plan of Treatment Upcoming Encounters Date Type Department Care Team (Late st Contact Info) Description 06/30/2025 11:30 AM EST Office Visit [facility] RHEUMATOLOGY [address] [place] [address] David Bernstein MD [address] [place] [address] 10/03/2025 2:45 PM EDT Office Visit [facility] CARDIOLOGY [address] [facility] [address] [place] [address] Yon Govea MD [address] [facility] [address] [place], [place] [phone] 06/14/2026 1:30 PM EST Office Visit [facility] CARDIOLOGY [address] [place] [address] [place] [address] Wojciech Flores MD [address] [facility] [address] [place], [place] [phone] Scheduled Orders Name Type Priority Associated Diagnoses Orde r Schedule Cardiology Scan Cardiac Services Ord ered: 02/21/2025 documented as of this encounter Procedures Procedure Name Priority Date/Time Associated Diagnosis Comments ECG 12-LEAD Routine 02/21/2025 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 Cardiac Electrophysiology Outpatient Note [facility] Office Visit Luz Skaggs [id number] 09/20/2024 Primary Care Physician: Ferny Gentile MD Referred By: No ref. provider found Subjective Chief Complaint Patient presents with PAF 6 month follow up PAF PROBLEM LIST: Paroxsymal 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 CHADSVASC = 3 on Coumadin Flecainide previously Tikosyn initiated 2022 Sick sinus syndrome S/p DDD PPM implant, STJ, Miah Heart failure with improved LVEF (HFimpEF) TTE 08/2022: LVEF 37%, LA volume severely increased TTE 10/2024: LVEF 56-60%, grade 1 diastolic dysfunction, RVSP 35-45, mildAI OSIRIS On CPAP Multifocal PVCs Echo 12/2020: EF 60%, grade I diastolic dysfunction, RV borderline dilated.RVSP < 35 mmHg. Mild AR. History of breast cancer L rsxn 92-implant in place S/p lumbar fusion 2017 [facility]. History of Present Illness: Luz Skaggs is a 84 y.o. female who presents to my electrophysiologyclinic for follow up of persistent 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 maintained onTikosyn, PVCs, heart failure with improved LVEF, and bradycardia s/pdual-chamber pacemaker. She had previously been well controlled onflecainide, and was also on this for PVCs. She had worsening of her atrialfibrillation in May following a knee replacement. This led tosignificant worsening of her symptoms and heart failure. We thereforedecided to switch her from flecainide to Tikosyn. She was last seen in our office around [address] Govea. [place], she has undergone echocardiogram showing improvement of her LVEF tonormal. She still remains active and very social with activities almostevery day. Her daughter wants her to slow down a little bit. She reportssome fatigue and dyspnea on exertion with some of these activities butoverall is happy with her functional capacity. She has upcomingcolonoscopy. Past Medical History: Diagnosis Date Allergic rhinitis Arrhythmia PVC'S Holter Jan 2015-=9% PVC Randolph Arthritis Atrial fibrillation PAF per event recorder April 2015- CHADs-VASc =2 Breast injury 05/2016 PT FELL & FRACTURED RT RIBS & BRUISED RT BREAST Diverticulitis Drug therapy 1991 GERD (gastroesophageal reflux disease) H/O chest x-ray 06/01/2015 No acute radiographic chest abnormality. No change from prior chest x-yong March 23, 2015 given differing technique H/O chest x-ray 03/23/2015 S/P left mastectomy with heart enlarged and no acute parenchymal disease H/O echocardiogram 01/23/2015 Mild concentric LVG. Est EF 55-60%. E to A reveral in mitral valve flowpattern sugg of diastolic dysfunction. Mild aortuc cusp sclerosis. Mild tomod aortic reg. No mitral valve prolapse. No pulmonary htn. a trivialpericardal efffusion visualized. No dilation of aortic root. Venous systemnormal History of deep venous thrombosis History of PFTs 06/01/2015 No obstruction or restriction. Low MVV. No air trapping orhyperinflation. Low DLCO howver likely underestimated due to IVC less than85% of VC History of transfusion after hysterectomy Hyperlipidemia Intolerant to statin therapy Neoplasm of breast, female, malignant 1991 LEFT OSIRIS on CPAP CPAP AT HOME. SETTINGS 6-16 AUTO PAP; WILL BRING CPAP MASK AND TUBING. 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 Valvular disease Echo January 2015: EF 55-605 mild to moderate Aortic RegurgitationDiastolic dysfunction Wears prescription eyeglasses Past Surgical History: Procedure Laterality Date ABLATION OF DYSRHYTHMIC FOCUS AUGMENTATION MAMMAPLASTY Left 1992 BACK SURGERY 12/15/2017 BREAST AUGMENTATION Left BREAST BIOPSY Right 08/2015 BREAST EXCISIONAL BIOPSY Left 1991 CARDIAC ELECTROPHYSIOLOGY PROCEDURE N/A 12/16/2016 Procedure: Ablation PVC, Hold Flecainide for 5 days prior; Surgeon:Kenrick Palacios DO; Location: [facility] INVASIVE LOCATION; Service: CARDIAC ELECTROPHYSIOLOGY PROCEDURE N/A 12/14/2019 Procedure: Device Implant- dual chamber pacemaker. Hold coumadin x 2days.; Surgeon: Barry Hennessy MD; Location: [facility]; Service: Cardiology; Laterality: N/A; CATARACT EXTRACTION CHOLECYSTECTOMY COLONOSCOPY 2013 EYE SURGERY cataract HAND SURGERY Left HYSTERECTOMY 1987 INSERT / REPLACE / REMOVE PACEMAKER 2019 KYPHOPLASTY MASTECTOMY Left 1992 OOPHORECTOMY 1988 REDUCTION MAMMAPLASTY Right REDUCTION & LIFT REPLACEMENT TOTAL KNEE Bilateral TONSILLECTOMY TOTAL HIP ARTHROPLASTY Left Family History Problem Relation Name Age of Onset Heart disease Mother Angie Arthritis Mother Angie Heart failure Mother Angie COPD Mother Angie Dementia Mother Angie Cancer Mother Angie Osteoporosis Mother Angie Heart failure Father Simon Dementia Father Simon Kidney failure Father Simon No Known Problems Sister Osteoporosis Daughter Arthritis Daughter Sebastian's thyroiditis Daughter Thyroid cancer Daughter Hemochromatosis Daughter Breast cancer Neg Hx Endometrial cancer Neg Hx Ovarian cancer Neg Hx Social History Socioeconomic History Marital status: Tobacco Use Smoking status: Never Passive exposure: Past Smokeless tobacco: Never Vaping Use Vaping status: Never Used Substance and Sexual Activity Alcohol use: Yes Comment: occasional Drug use: Never Sexual activity: Defer Current Outpatient Medications: acetaminophen (TYLENOL) 500 MG tablet, Take 1 tablet by mouth Every 8(Eight) Hours As Needed., Disp: , Rfl: alendronate (FOSAMAX) 70 MG tablet, Take 1 tablet by mouth 1 (One) TimePer Week., Disp: , Rfl: cetirizine (zyrTEC) 10 MG tablet, Take 1 tablet by mouth Daily., Disp:30 tablet, Rfl: 1 Cholecalciferol (VITAMIN D-3 PO), Take 1 tablet by mouth Daily., Disp: ,Rfl: coenzyme Q10 100 MG capsule, Take 2 capsules by mouth Daily., Disp: ,Rfl: colestipol (COLESTID) 1 g tablet, Take 1 tablet by mouth Daily., Disp: ,Rfl: dofetilide (TIKOSYN) 125 MCG capsule, Take 1 capsule by mouth Every 12(Twelve) Hours., Disp: 180 capsule, Rfl: 3 enoxaparin sodium (LOVENOX) 80 MG/0.8ML solution prefilled syringesyringe, Inject 0.8 mL under the skin into the appropriate area asdirected Every 12 (Twelve) Hours. Or as directed by anticoagulationclinic. *Start on 02/26/25*, Disp: 8 mL, Rfl: 0 estradiol (ESTRACE) 0.1 MG/GM vaginal cream, As Needed., Disp: , Rfl: ezetimibe (ZETIA) 10 MG tablet, Take 1 tablet by mouth Daily., Disp: ,Rfl: folic acid (FOLVITE) 1 MG tablet, Take 1 tablet by mouth Daily., Disp:90 tablet, Rfl: 3 furosemide (LASIX) 20 MG tablet, Take 2 tablets by mouth 3 (Three) Timesa Week. And an additional one tablet as needed for weight gain >2 lbs in24 hours, Disp: 90 tablet, Rfl: 3 guaiFENesin (MUCINEX) 600 MG 12 hr tablet, Take 2 tablets by mouth AsNeeded for Cough., Disp: , Rfl: Inclisiran Sodium 284 MG/1.5ML solution prefilled syringe, Inject 1.5 mLunder the skin into the appropriate area as directed Every 6 (Six)Months., Disp: , Rfl: ipratropium (ATROVENT) 0.06 % nasal spray, Administer 2 sprays into thenostril(s) as directed by provider 2 (Two) Times a Day As Needed., Disp: ,Rfl: lactobacillus acidophilus (RISAQUAD) capsule capsule, Take 1 capsule bymouth Daily., Disp: 1 capsule, Rfl: 1 methotrexate 2.5 MG tablet, Take 6 tablets by mouth 1 (One) Time PerWeek., Disp: 72 tablet, Rfl: 0 methylPREDNISolone (MEDROL) 4 MG dose pack, take by mouth as directed oninside of package, Disp: , Rfl: metoprolol succinate XL (Toprol XL) 50 MG 24 hr tablet, Take 1 tablet bymouth Daily., Disp: 90 tablet, Rfl: 1 Myrbetriq 50 MG tablet sustained-release 24 hour 24 hr tablet, Take 25mg by mouth Daily., Disp: , Rfl: ofloxacin (OCUFLOX) 0.3 % ophthalmic solution, , Disp: , Rfl: pantoprazole (PROTONIX) 40 MG EC tablet, Take 1 tablet by mouth Daily.,Disp: 60 tablet, Rfl: 2 Peppermint Oil (IBGARD PO), Take 20 drops by mouth Daily., Disp: , Rfl: kensls-qjdkbzynl-jxfkolbwo sulfates (SUPREP) 17.5-3.13-1.6 GM/177MLsolution oral solution, DILUTE; DRINK FULL AMOUNT EARLY EVENING BEFORE ANDNEXT MORNING AT LEAST 4-5 HR BEFORE PROCEDURE; FOLLOW W 960 ML WATER PO,Disp: , Rfl: warfarin (COUMADIN) 5 MG tablet, TAKE 1 TO 1 & 1/2 (ONE TO ONE &ONE-HALF) TABLETS BY MOUTH ONCE DAILY OR DIRECTED BY THEANTICOAGULATION CLINIC, Disp: 135 tablet, Rfl: 0 Allergies: Allergies Allergen Reactions Oxycodone-Acetaminophen Headache Pravastatin Myalgia MUSCLE WEAKNESS Sulfamethoxazole-Trimethoprim Rash Objective Vital Signs: Blood pressure 138/76, pulse 70, height 162.6 cm (64 ),weight 82.6 kg (182 lb), SpO2 97%, not currently . PHYSICAL EXAM General appearance: Awake, alert, cooperative Head: Normocephalic, without obvious abnormality, atraumatic Lungs: Clear to ascultation bilaterally Heart: Regular rate and rhythm, no murmurs, no lower extremity swelling Skin: Skin color, turgor normal, no rashes or lesions Neurologic: Grossly normal Lab Results Component Value Date GLUCOSE 98 06/15/2024 CALCIUM 9.7 06/15/2024 NA 139 06/15/2024 K 4.6 06/15/2024 CO2 23.4 06/15/2024 CL 103 06/15/2024 BUN 16 06/15/2024 CREATININE 1.16 (H) 06/15/2024 EGFRIFNONA 47 (L) 12/10/2020 BCR 13.8 06/15/2024 ANIONGAP 12.6 06/15/2024 Lab Results Component Value Date WBC 6.39 06/15/2024 HGB 13.9 06/15/2024 HCT 41.1 06/15/2024 MCV 89.7 06/15/2024 PLT 219 06/15/2024 Lab Results Component Value Date INR 2.70 02/17/2025 INR 1.90 02/08/2025 INR 2.90 02/03/2025 PROTIME 23.0 (H) 08/06/2022 PROTIME 27.8 (H) 08/05/2022 PROTIME 27.4 (H) 08/04/2022 Lab Results Component Value Date TSH 2.080 06/07/2022 Results for orders placed during the hospital encounter of 10/28/24 Adult Transthoracic Echo Complete W/ Cont if Necessary Per Gelucbnp23/27/2025 5:06 PM Interpretation Summary Left ventricular systolic function is normal. Calculated leftventricular EF = 56% Left ventricular ejection fraction appears to be 56 -60%. Left ventricular diastolic function is consistent with (grade I)impaired relaxation. Estimated right ventricular systolic pressure from tricuspidregurgitation is mildly elevated (35-45 mmHg). There is a small (<1cm) pericardial effusion. There is thickening of the aortic valve. Mild aortic valve regurgitation is present. I personally viewed and interpreted the patient's EKG/Telemetry/lab data ECG 12 Lead Date/Time: 02/21/2025 12:45 PM Performed by: Sorin Kearney PA-C Authorized by: Sorin Kearney PA-C Comparison: compared with previousECG from 09/28/2024 Similar to previous ECG Rhythm comments: Atrial paced rhythm with somewhat frequent monomorphicPVCs Clinical impression: abnormal EKG Luz Skaggs reports that she has never smoked. She has been exposedto tobacco smoke. She has never used smokeless tobacco. Advance Care Planning Advance Care Planning: ACP discussion was held with the patient duringthis visit. Patient does not have an advance directive, informationprovided. Assessment & Plan 1. Chronic HFrEF (heart failure with reduced ejection fraction) Echo 10/2024 with recovered LVEF Euvolemic on exam today. Patient reports good functional capacity but hassome mild shortness of breath on exertion 2. Paroxysmal 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/long-term current use of antiarrhythmicmedical therapy On low-dose Tikosyn 125 mcg twice daily Single A-fib episode lasting 11 hours since last device check Continue warfarin per anticoagulation clinic instruction 3. PVC (premature ventricular contraction) She has had decently frequent PVCs with around 14% on previous pacemakerburden in September 2023. Her device was switched to AAIR at some point sincethen to decrease ventricular pacing so as not to worsen heart failure.Unfortunately, with this mode change we are unable to detect PVCs ondevice If she were to have function limiting symptoms believed to be related tothis, we could place monitor versus change pacemaker back to DDDR toassess PVC burden and make plan accordingly. Will continue to monitor fornow 4. Presence of cardiac pacemaker Device was previously programmed to AAI to minimize ventricular pacingwith previous LV systolic dysfunction. Previous pacing burden was 12% inthe ventricle despite all optimization at that time. The patient [place] [employer] dual-chamber pacemaker now AAIR was interrogatedthe office today demonstrate acceptable device function with 5 years lefton the battery, acceptable threshold impedance value, 32% atrial pacing.Single A-fib episode lasting 11 hours on 01/15/2025 otherwise no events.There was some SONU noise which was new so RA sensitivity was decreased totry and break this out. Follow Up: Return in about 6 months (around 08/22/2025). Thank you for allowing me to participate in the care of your patient.Please do not hesitate to contact me with additional questions orconcerns. Sorin Kearney PA-C Cardiac Electrophysiology [facility] Sorin Kearney PA-C ECG ORDERABLES Final Result documented in this encounter Visit Diagnoses Diagnosis Heart failure with improved ejection fraction (HFimpEF)- Primary Paroxysmal 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 Atrial fibrillation residential current use of antiarrhythmic medical therapy PVC (premature ventricular contraction) Other premature beats Presence of cardiac pacemaker Cardiac pacemaker in situ documented in this encounter Care Teams Plant Health Manager Relationship Specialty Start Date End Date Ferny Gentile MD [facility] [address] [facility] [address] [place] [place] [address] PCP - General 06/11/15 documented as of this encounter
--- OUTSIDE RECORDS SUMMARY | 2025-02-28 09:46 | XMS_ITS | Encounter Summary ---
Author Organization [facility] Address [address] [place] [address] Care Team Providers Care Director Of Automation Name Role Phone Ferny Gentile MD Primary Care Provider [phone] Reason for Visit * Diagnostic Imaging (Routine) - Closed Specialty Diagnoses / Procedures Referred By Contac t Referred To Contact Radiology Diagnoses Other screening mammogram Procedures Mammo Screening Modified With Tomosynthesis Right With CAD Mammo Screening Modified With Tomosynthesis Right With CAD Freny Gentile MD [address] [place] [address] [address] Phone: tel: fax: Referral ID Status Reason Start Date Expiration Date Visits Re quested Visits Authorized [id number] Closed 06/23/2024 06/23/2025 1 1 Encounter Details Date Type Department Care Team (Latest Contact Info) Description 02/28/2025 10:46 AM EDT - 02/28/2025 11:59 PM EDT Hospital Encounter [facility] [address] [place] [address] Ferny Gentile MD [address] [place] [address] [address] Other screening mammogram Discharge Disposition: [...] Description 06/30/2025 11:30 AM EST Office Visit [facility] [address] [facility] 100 [place] [phone] David Bernstein MD 330 [facility] 100 [place] [address] 10/03/2025 2:45 PM EDT Office Visit [facility] [address] [facility] [address] [place] [phone] Yon Govea MD [facility] 400 [place] [address] 06/14/2026 1:30 PM EST Office Visit [facility] [address] [facility] [place] [address] Wojciech Flores MD [address] [place], [place] [id number] documented as of this encounter Procedures Procedure [...] mammogram documented in this encounter Care Teams Director Of Automation Relationship Specialty Start Date End Date Ferny Gentile MD [address] [place] [address] [place] [address] PCP - General 06/11/15 documented as of this encounter
--- OUTSIDE RECORDS SUMMARY | 2025-03-24 10:09 | XMS_ITS | Encounter Summary ---
[facility] Organization [facility] Address [address] [place] [address] Care Team Providers Care Heat Reader Name Role Phone Ferny Gentile MD Primary Care Provider [phone] Encounter Details Date Type Department Care Team (Late Contact Info) Description 02/04/2022 Anticoagulation Visit [facility] [address] [facility] [address] [place] [address] Hernan Mckenna, PharmD [address] [place] [address] Paroxysmal 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 (Primary Dx) Social History [...] Encounters Date Type Department Care Team (Late Contact Info) Description 06/30/2025 11:30 AM EST Office Visit [facility]HE[facility] [address] [place] [address] David Bernstein MD [address] [address] 10/03/2025 2:45 PM EDT Office Visit [facility] [address] [place] [address] Yon Govea MD [address] [facility] [address] [place], [place] [id number] 06/14/2026 1:30 PM EST Office Visit [facility] C[facility] [address] [place] [address] Wojciech Flores MD [address] [place] [address] documented as of this encounter Procedures Procedure Name Priority Date/Time Associated Diagnosis Comments PROTIME-INR Routine 02/04/2022 documented in this encounter Results * Protime-INR (02/04/2022) INR 1.90 Blood us Historical Provider LAB BLOOD ORDERABLES Agata l Result documented in this encounter Visit Diagnoses Diagnosis Paroxysmal 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- Primary Atrial fibrillation documented in this encounter Care Teams Heat Reader Relationship Specialty Start Date End Date Ferny Gentile MD [address] [facility] [address] [place] [address] PCP - General 06/11/15 documented as of this encounter
--- OUTSIDE RECORDS SUMMARY | 2025-03-24 10:09 | XMS_ITS | Encounter Summary ---
Author Organization [facility] Address [address] [place] [address] Care Team Providers Care Sql Manager Name Role Phone Ferny Gentile MD Primary Care Provider [phone] Encounter Details Date Type Department Care Team (Late st Contact Info) Description 01/27/2025 Anticoagulation Visit [facility] [address] [place] [address] [place] [address] [facility] [address] [place] [address] Social History Tobacco Use Types Packs/Day Years [...] this encounter Progress Notes * Natasha Ruano, [facility] - 01/27/2025 2:02 PM EDT [...] Tablet Strength: 5mg tablets Patient Contact Info: [phone]; Litzy Naranjo (daughter) Patient Findings Positives: Change [...] Office Visit [facility] [address] [place] [address] David Bernstein MD [address] [place] [address] 10/03/2025 2:45 PM EDT Office Visit [facility] [address] [facility] [address] [place] [address] Yon Govea MD [address] [facility] [address] [place], [place] [id number] 06/14/2026 1:30 PM EST Office Visit [facility] CARD[facility] [address] [place] [address] [place] [address] Wojciech Flores MD [address] [facility] [address] [place], [place] [id number] documented as of this encounter Procedures Procedure Name Priority Date/Time Associated Diagnosis Comments PROTIME-INR Routine 01/27/2025 documented in this encounter Results * Protime-INR (01/27/2025) INR 3.40 Blood us Historical Provider LAB BLOOD ORDERABLES Agata l Result documented in this encounter Visit Diagnoses Not on filedocumented in this encounter Care Teams Sql Manager Relationship Specialty Start Date End Date Ferny Gentile MD [address] [facility] [address] [place] [address] PCP - General 06/11/15 documented as of this encounter
--- OUTSIDE RECORDS SUMMARY | 2025-03-24 10:09 | XMS_ITS ---
Author Organization [facility] Address [address] [place] [address] Phone Care Team Providers Care Metallurgical Laboratory Assistant Name Role Phone MARIAMA MORALEZ, FATOUMATA Blanco Primary Care Provider [phone] Camila MORALEZ, Alanna Bowen Unavailable [phone] [...] Active Last Documented On 2 1:05PM ; [facility] Joint Pain Right Thumb 04/17/2022 Ceci griffin APRN Active Last Documented On 2 1:05PM ; [facility] Midback Pain 10/17/2020 Brandon Wilks MD Acti ve Last Documented On 1 2:32PM ; [facility] Joint Pain Left Knee 02/16/2020 Eliseo Cuevas MD Active Last Documented On 0 1:26PM ; [facility] Joint Pain Right Knee 10/29/2016 Alanna castaneda MD Active Last Documented On 7 10:32AM ; [facility] Pain in Lumbar Spine 03/13/2016 Alanna krause MD Active Last Documented On 6 1:07PM ; [facility] Joint Pain Hip Left 03/13/2016 Alanna chin MD Active Last Documented On 6 1:09PM ; [facility] Joint Pain Knee 03/10/2012 Alanna Pereira Active Last Documented On 2 10:37AM ; [facility] Plan of Treatment Findings Encounter Date Patient screened for future fall risk: documentation of any fall with injury in past year Follow Up with Ceci Santos APRN 04/14/2024 Last Documented On 4 4:23PM ; [facility] Pending Tests Order Diagnosis Results Due Ordering P rovider Lab Orders - HL Pre-Op PTT Other intervertebral disc degeneration, lumbar region 12/02/17 Brandon Wilks MD Last Documented On 8 9:23AM ; [facility] Lab Orders - HL Pre-Op PT INR Other intervertebral disc degeneration, lumbar region 12/02/17 Brandon Wilks MD Last Documented On 8 9:23AM ; [facility] Lab Orders - HL Pre-Op CMP Other int ervertebral disc degeneration, lumbar region 12/02/17 Brandon Wilks MD Last Documented On 8 9:23AM ; [facility] Lab Orders - HL Pre-Op Clean Catch UA Other intervertebral disc degeneration, lumbar region 12/02/17 Brandon Wilks MD Last Documented On 8 9:23AM ; [facility] Lab Orders - HL Pre-Op CBC [...] cessation Last Documented On 9 10:40AM ; [facility] No health seminar on smoking cessation Last Documented On 8 1:06PM ; [facility] Medical Equipment - Implanted Devices Includes: Current and historical Devices No Medical Equipment Recorded Medications Includes: Current and historical Medications Current Medications (continue as prescribed) Colestipol HCl 5 GM Oral Packet 04/14/2024 Provider: Diagnosis: Last Documented On 4 11:25AM By Carla Hall ; [facility] Protonix 20 MG Oral Tablet Delayed Release 06/16/2022 Provider: Diagnosis: Last Documented On 3 4:00PM By Elif Chicas ; [facility] Flecainide Acetate 100 MG Oral Tablet 06/16/2022 Pro vider: Diagnosis: Last Documented On 3 4:01PM By Elif Chicas ; [facility] Metoprolol Succinate ER 25 M G Oral Tablet Extended Release 24 Hour 06/12/2022 Provider: Diagnosis: Last Documented On 3 4:00PM By Elif Chicas ; [facility] predniSONE 10 MG Oral Tablet 05/02/2022 Provider: FATOUMATA LESLIE MD Diagnosis: Last Documented On 3 4:00PM By Elif Chicas ; [facility] Lagevrio 200 MG Oral Capsule 04/22/2022 Provider: FATOUMATA LESLIE MD Diagnosis: Last Documented On 3 4:00PM By Elif Chicas ; [facility] Lagevrio 200 MG Oral Capsule 04/22/2022 Provider: FAOTUMATA LESLIE MD Diagnosis: Last Documented On 3 4:00PM By Elif Chicas ; [facility] Mupirocin 2% External Ointment 04/16/2022 Provider: Eliseo Cuevas MD Diagnosis: three times a day Apply to n ostrils 3 time a day 5 days prior to surgery. Last Documented On 2 2:50PM By Gilda Kamara ; [facility] MegaRed [place]-3 Krill Oil 350 MG Oral Capsule 10/26/19 21 Provider: Diagnosis: Last Documented On 1 1:15PM By Betzaida Donald ; [facility] Sudafed 30 MG Oral Tablet 10/25/2020 Provider: Diagnosis: Last Documented On 1 1:15PM By Betzaida Donald ; [facility] Mucinex Allergy 180 MG Oral Tablet 10/25/2020 Provid er: Diagnosis: Last Documented On 1 1:14PM By Betzaida Donald ; [facility] Warfarin Sodium 7.5 MG Oral Tablet 10/17/2020 Provid er: Diagnosis: Last Documented On 1 2:43PM By Greer Kingston ; [facility] Ezetimibe 10 MG Oral Tablet 09/11/2020 Provider: FATOUMATA LESLIE MD Diagnosis: Last Documented On 1 1:13PM By Betzaida Donald ; [facility] Digoxin 125 MCG Oral Tablet 07/21/2020 Provider: Diagnosis: Last Documented On 1 2:44PM By Greer Kingston ; [facility] CoQ-10 10 MG Oral Capsule 10/20/2019 Provider: Diagnosis: Last Documented On 0 4:01PM By Greer Kingston ; [facility] D3-1000 25 MCG (1000 UT) Oral Capsule 10/20/2019 Pro vider: Diagnosis: Last Documented On 0 4:00PM By Greer Kingston ; [facility] Omeprazole 20 MG Oral Ta blet Delayed Release Disintegrating 10/20/2019 Provider: Diagnosis: Last Documented On 0 3:59PM By Greer Kingston ; [facility] Probiotic Maximum Strength Oral Capsule 10/20/2019 Provider: Diagnosis: Last Documented On 0 3:58PM By Greer Kingston ; [facility] Citalopram Hydrobromide 10 MG Oral Tablet 10/20/2019 Provider: Diagnosis: Last Documented On 0 3:56PM By Greer Kingston ; [facility] Flecainide Acetate 100 MG Oral Tablet 10/20/2019 Pro vider: Diagnosis: Last Documented On 0 3:55PM By Greer Kingston ; [facility] Past Medications on file oxyCODONE HCl 5 MG Oral Tablet 05/29/2022 - 06/03/2022 Provider: Eliseo ceja MD Diagnosis: 1-2 po q 4-6h Last Documented On 3 12:32PM By Hima Cuevas ; [facility] traMADol HCl 50 MG Oral Tablet 05/29/2022 - 06/03/2022 Provider: Eliseo ceja MD Diagnosis: 1-2 po q 4-6h Last Documented On 3 12:32PM By Hima Cuevas ; [facility] Lovenox 40 MG/0.4ML Injection Solution Prefilled Syringe 05/26/2022 - 05/30/2022 Provider: Eliseo ceja MD Diagnosis: 1 sub q injection 1 time day Last Documented On 3 8:35AM By Hima Cuevas ; [facility] Cefadroxil 500 MG Oral Capsule 05/21/2022 - 05/24/2022 Provider: Eliseo ceja MD Diagnosis: twice a day Last Documented On 3 12:08PM By Hima Cuevas ; [facility] Colace 100 MG Oral Capsule 05/21/2022 - 08/19/2022 Provider: Eliseo ceja MD Diagnosis: 1-2 tabs daily Last Documented On 3 12:08PM By Hima Cuevas ; [facility] traMADol HCl 50 MG Oral Tablet 05/21/2022 - 05/26/2022 Provider: Eliseo ceja MD Diagnosis: 1-2 po q 4-6h Last Documented On 3 12:08PM By Hima Cuevas ; [facility] Acetaminophen 500 MG Oral Tablet 05/21/2022 - 06/20/2022 Provider: Eliseo Cuevas MD Diagnosis: 2 three times a day Last Documented On 3 12:08PM By Hima Cuevas ; [facility] oxyCODONE HCl 5 MG Oral Tablet 05/21/2022 - 05/26/2022 Provider: Eliseo ceja MD Diagnosis: 1-2 po q 4-6h Last Documented On 3 12:08PM By Hima Cuevas ; [facility] Ondansetron HCl 4 MG Oral Tablet 05/21/2022 - 05/26/2022 Provider: Eliseo Cuevas MD Diagnosis: [id number] Last Documented On 3 12:08PM By Hima uCevas ; [facility] Meloxicam 15 MG Oral Tablet 05/21/2022 - 06/20/2022 Provider: Eliseo ceja MD Diagnosis: once a day Last Documented On 3 12:08PM By Hima Cuevas ; [facility] HYDROcodone-Acetaminophen 7. 5-325 MG Oral Tablet 10/25/2020 - 11/14/2020 Provider: Brandon Wilks MD Diagnosis: twice a day Last Documented On 1 12:08PM By Dr. Wilks ; [facility] [place] 5-325 MG Oral Tablet 11/07/2019 - 10/25/2020 Pro vider: Brandon Wilks MD Diagnosis: twice a day and bedtime as necessary Last Documented On 1 1:11PM By Betzaida Donald ; [facility] tiZANidine HCl 2 MG Oral Tablet 10/21/2019 - Provider: FATOUMATA LESLIE MD Diagnosis: Last Documented On 1 1:11PM By Betzaida Donald ; [facility] Osteo Bi-Flex Joint Shield Oral Tablet 10/20/2019 - Provider: Diagnosis: Last Documented On 4 11:28AM By Clint Rocha ; [facility] Myrbetriq 25 MG Oral Tablet Extended Release 24 Hour 10/20/2019 - 03/03/2024 Provider: Diagnosis: Last Documented On 4 11:28AM By Clint Rocha ; [facility] MiraLax Oral Powder 10/20/2019 - 03/03/2024 Provider: Diagnosis: Last Documented On 4 11:28AM By Clint Rocha ; [facility] EQ Restore Plus Lubricant Ey e 0.5% Ophthalmic Solution 10/20/2019 - 03/03/2024 Provider: Diagnosis: Last Documented On 4 11:35AM By Clint Rocha ; [facility] Cetirizine HCl 10 MG Oral Capsule 10/20/2019 - 021 Provider: Diagnosis: Last Documented On 1 1:11PM By Betzaida Donald ; [facility] Ipratropium [place] 0.03% Nasal Solution 10/20/2019 - 03/03/2024 Provider: Diagnosis: Last Documented On 4 11:28AM By Clint Rocha ; [facility] Calcium-Magnesium 100-50 MG Oral Tablet 10/20/2019 - 1 Provider: Diagnosis: Last Documented On 4 11:28AM By Clint Rocha ; [facility] [place]-3 Krill Oil 300 MG Oral Capsule 10/20/2019 - 10/25/2020 Provider: Diagnosis: Last Documented On 1 1:12PM By Betzaida Donald ; [facility] Warfarin Sodium 7.5 MG Oral Tablet 10/20/2019 - 2020 Provider: Diagnosis: Last Documented On 1 2:43PM By Greer Kingston ; [facility] Ipratropium [place] 0.06% Nasal Solution 10/20/2019 - 10/25/2020 Provider: Diagnosis: Last Documented On 1 1:12PM By Betzaida Donald ; [facility] Ezetimibe-Simvastatin 10-10 MG Oral Tablet 10/20/2019 - 10/25/2020 Provider: Diagnosis: Last Documented On 1 1:12PM By Betzaida Donald ; [facility] Metoprolol-HCTZ ER 25-12.5 M G Oral Tablet Extended Release 24 Hour 10/20/2019 - 10/25/2020 Provider: Diagnosis: Last Documented On 1 1:12PM By Betzaida Donald ; [facility] HYDROcodone-Acetaminophen 2. 5-325 MG Oral Tablet 10/18/2019 - 10/25/2020 Provider: FATOUMATA LESLIE MD Diagnosis: Last Documented On 1 1:13PM By Betzaida Donald ; [facility] [place] 5-325MG Oral Tablet 12/31/2018 - 10/20/2019 Prov ider: Les Manriquez MD Diagnosis: 1-2 p o q 6-8h Last Documented On 0 3:53PM By Greer Kingston ; [facility] [place] 5-325MG Oral Tablet 12/23/2018 - 01/22/2019 Provider: [...] On 9 4:06PM By Reanna Gutierrez ; [facility] Neurontin 300MG Oral Capsule 12/08/2018 - 03/08/2019 Provider: Eliseo ceja MD Diagnosis: 1 every bedtime FOR SURGER Y DO NOT FILL UNTIL 12/14/18 Last Documented On 9 4:05PM By Reanna Gutierrez ; [facility] Dilaudid 2MG Oral [...] On 9 4:10PM By Reanna Gutierrez ; [facility] Mupirocin 2% External Ointment 11/09/2018 - 11/14/2018 Provider: Eliseo ceja MD Diagnosis: Apply to nostrils 3 time a d ay 5 days prior to surgery. Last Documented On 9 10:40AM By Gilda Kamara ; [facility] Doxycycline Hyclate 100MG Oral Capsule 09/02/2018 - Provider: Diagnosis: Last Documented On 0 3:54PM By Greer Kingston ; [facility] Myrbetriq 25MG Oral Tablet E xtended Release 24 Hour 02/22/2018 - 10/20/2019 Provider: Diagnosis: Last Documented On 0 3:53PM By Greer Kingston ; [facility] [place] 7.5-325MG Oral Tablet 12/28/2017 - 10/20/2019 Pr ovider: Brandon Wilks MD Diagnosis: three times a day, for post surgical spinal fusion pain , use spinal fusion post op guideloies, this surgry hurts 2-4 weeks Last Documented On 0 3:53PM By Greer Kingston ; [facility] [place] 5-325MG Oral Tablet 12/24/2017 - 12/31/2017 Prov ider: Brandon Wilks MD Diagnosis: 1-2 po q 4-6h PRN Last Documented On 8 5:31PM By Dr. Wilks ; [facility] [place] 7.5-325 MG OR TABS 12/24/2017 - 01/03/2018 Provi gaby: Brandon Wilks MD Diagnosis: Last Documented On 8 11:35AM By Marcelle Croft ; [facility] Voltaren Gel 1% External 10/14/2017 - 12/13/2017 Provi gaby: Alanna Jensen MD Diagnosis: use as directed Last Documented On 8 10:09AM By Sayra Evans ; [facility] HM Magnesium 400MG Oral Tablet 06/09/2017 - 10/20/2019 Provider: Diagnosis: Last Documented On 0 3:53PM By Greer Kingston ; [facility] Lovenox 40MG/0.4ML Subcutaneous Solution 05/06/2017 - 05/26/2017 Provider: Alanna castaneda MD Diagnosis: use as directed/1 INJECTION PER DAY FOR 5 DAYS PRIOR TO PROCEDER & 1 INJECTION PER DAY FOR 5 DAYS AFTER PROCERDER/ Last Documented On 8 4:29PM By Sayra Evans ; [facility] Flecainide Acetate 100MG Oral Tablet 02/04/2017 - 10/02 Provider: Diagnosis: Last Documented On 0 3:53PM By Greer Kingston ; [facility] [place] 5-325 MG Tablet 10/29/2016 - 11/05/2016 Provider : Alanna Jensen MD Diagnosis: 1-2 po q 4-6h PRN Last Documented On 7 11:55AM By Camryn Paez ; [facility] Medrol 4 MG Tablet Therapy Pack 02/14/2016 - 02/20/2016 Provider: Alanna chin MD Diagnosis: use as directed by pharmacy Last Documented On 6 3:16PM By Heather Langley ; [facility] [place] 5-325 MG Tablet 12/03/2015 - 12/18/2015 Provider : Alanna Jensen MD Diagnosis: 1-2 po q 4-6h Last Documented On 6 1:26PM By Heather Langley ; [facility] Calcium Carbonate-Vitamin D3 600-400 MG-UNIT Tablet 11/16/2015 - 10/20/2019 Provider: Diagnosis: Last Documented On 0 3:53PM By Greer Kingston ; [facility] Osteo Bi-Flex Regular Strength 250-200 MG Tablet 11/16/2015 - 10/20/2019 Provider: Diagnosis: Last Documented On 0 3:53PM By Greer Kingston ; [facility] Omeprazole 20 MG Tablet, enteric coated 11/16/2015 - 10/20/2019 Provider: Diagnosis: Last Documented On 0 3:53PM By Greer Kingston ; [facility] Metoprolol Succinate ER 25 M G Tablet, extended-release 24 hour 11/16/2015 - 10/20/2019 Provider: Diagnosis: Last Documented On 0 3:53PM By Greer Kingston ; [facility] Warfarin Sodium 1 MG Tablet 11/16/2015 - 10/20/2019 Pr ovider: Diagnosis: Last Documented On 0 3:54PM By Greer Kingston ; [facility] ZyrTEC Allergy 10 MG Tablet 11/16/2015 - 10/20/2019 Pr ovider: Diagnosis: Last Documented On 0 3:54PM By Greer Kingston ; [facility] Citalopram Hydrobromide 10 MG Tablet 11/16/2015 - 10/02 Provider: Diagnosis: Last Documented On 0 3:53PM By Greer Kingston ; [facility] [place] 7.5-325 MG Tablet 11/16/2015 - 12/16/2015 Provid er: Alanna Jensen MD Diagnosis: 1 every 4 - 6 hours PO PRN Last Documented On 6 2:09PM By Lani Marquez ; [facility] Prolia 60 MG/ML Solution 11/16/2015 - 10/20/2019 Provi gaby: Diagnosis: Last Documented On 0 3:54PM By Greer Kingston ; [facility] Aspirin Adult Low Dose 81 MG Tablet, enteric coated 11/16/2015 - 06/09/2017 Provider: Diagnosis: Last Documented On 8 1:56PM By Tiffany Alegre ; [facility] Bran Fiber 500 MG Tablet 11/16/2015 - 10/20/2019 Provi gaby: Diagnosis: Last Documented On 0 3:53PM By Greer iKngston ; [facility] 4X Probiotic Tablet 11/16/2015 - 10/20/2019 Provider: Diagnosis: Last Documented On 0 3:53PM By Greer Kingston ; [facility] Krill Oil Austin-3 300 MG Capsule, conventional 0 11/16/2015 - 06/09/2017 Provider: Diagnosis: Last Documented On 8 1:57PM By Tiffany Alegre ; [facility] Voltaren 1% TD GEL 01/31/2013 - 03/02/2013 Provider: Alanna Jensen MD Diagnosis: DEGENERATIVE MIKEY NT DISEASE KNEE apply 4 grams to affected ar ea 4 times a day//ks Last Documented On 3 2:16PM By Ann Marie Sutherland ; [facility] Lortab 10-500 MG OR TABS 09/14/2012 - 09/21/2012 Provi gaby: Alanna Jensen MD Diagnosis: [id number] [employer] jsb/df Last Documented On 3 8:56AM By Jose F Gutierrez ; [facility] Lortab 10-500 MG OR TABS 08/06/2012 - 08/13/2012 Provi gaby: Alanna Jensen MD Diagnosis: [phone] [employer] jsb/df Last Documented On 3 1:59PM By Jose F Gutierrez ; [facility] Lortab 10-500 MG OR TABS 07/09/2012 - 07/16/2012 Provi gaby: Alanna Jensen MD Diagnosis: [phone] [employer] jsb Last Documented On 3 12:36PM By Jose F Gutierrez ; [facility] Lortab 10-500 MG OR TABS 07/01/2012 - 07/08/2012 Provi gaby: Alanna Jensen MD Diagnosis: [phone] [employer] df Last Documented On 3 1:53PM By Jose F Gutierrez ; [facility] Xarelto 10 MG OR TABS 06/14/2012 - 07/05/2012 Provider : Alanna Jensen MD Diagnosis: sx on 06-15-12kw Last Documented On 3 1:31PM By Danielle Dobson ; [facility] Lortab 10-500 MG OR TABS 06/14/2012 - 06/21/2012 Provi gaby: Alanna Jensen MD Diagnosis: sx on 06-15-12kw Last Documented On 3 1:31PM By Danielle Dobson ; [facility] Reclast 5 MG/100ML IV SOLN 03/10/2012 - 06/09/2017 Pro vider: Diagnosis: Last Documented On 8 1:58PM By Tiffany Alegre ; [facility] Atenolol 25 MG OR TABS 03/10/2012 - 06/09/2017 Provide r: Diagnosis: Last Documented On 8 1:59PM By Tiffany Alegre ; [facility] Zetia 10 MG OR TABS 03/10/2012 - 10/20/2019 Provider: Diagnosis: Last Documented On 0 3:50PM By Greer Kingston ; [facility] Medications Administered Includes: Administered Medications in patient's chart No Administered Medications Recorded Vital Signs Includes: Vital Signs from 03/24/2024 through 03/24/2025 Vital Name 04/14/2024 12:09P Height (in) 65 Weight (lb) 172 Body Mass Index 28.6 Body Surface Area 1.9 Note: sr Last Documented: On 04/14/2024 12:11P M ; [facility] Results Includes: Results from 03/24/2024 through 03/24/2025 No Results Recorded For Specified Dates History of Present Illness History of Present Illness not supported for this document type No History of Present Illness Recorded Social History Description Last Updated No recent change in diet 04/14/2024 Last Documented On 4 4:23PM ; [facility] Not a current smoker. 04/14/2024 Last Documented On 4 4:23PM ; [facility] Tobacco non-user 04/14/2024 Last Documented On 4 4:23PM ; [facility] Alcohol use 10/25/2020 Last Documented On 1 11:07AM ; [facility] Not using drugs 10/25/2020 Last Documented On 1 11:07AM ; [facility] Recent change in diet 10/25/2020 Last Documented On 1 11:07AM ; [facility] Non-smoker 10/17/2020 Last Documented On 1 9:12AM ; [facility] No caffeine use 10/17/2020 Last Documented On 1 9:12AM ; [facility] Not a current smoker. 10/17/2020 Last Documented On 1 9:12AM ; [facility] No tobacco use 10/31/2019 Last Documented On 0 9:14AM ; [facility] Not a current smoker 10/31/2019 Last Documented On 0 9:14AM ; [facility] Not exercising regularly 10/31/2019 Last Documented On 0 9:14AM ; [facility] Smoking status : Never smoker 10/31/2019 Last Documented On 0 9:14AM ; [facility] Procedures and Surgical History Surgical History Last Updated History of back surgery 11/2019-Kypho T1 2 10/17/2020 Last Documented On 1 9:12AM ; [facility] History of heart surgery ablation 2017 0 10/31/2019 Last Documented On 0 9:14AM ; [facility] History of total hip replacement left hi p 201810/31/2019 Last Documented On 0 9:14AM ; [facility] History of total knee arthroplasty right knee 201210/31/2019 Last Documented On 0 9:14AM ; [facility] History of hysterectomy 10/16/2014 Last Documented On 5 9:01AM ; [facility] Medical History Includes: Medical History in patient's chart Description Last Updated Recent immunization for flu 02/01/2022 1 06/15/2023 Last Documented On 4 4:23PM ; [facility] Recent immunization for pneumococcal pne umonia 2014 04/14/2024 Last Documented On 4 4:23PM ; [facility] History of Irregular Heartbeat A-fib; ep isode after TKA- cadiovert needed 06/16/2022 Last Documented On 3 4:10PM ; [facility] blood transfusions 10/25/2020 Last Documented On 1 11:07AM ; [facility] Arthritis 10/25/2020 Last Documented On 11:07AM ; [facility] Heartburn / Acid Reflux 10/25/2020 Last Documented On 11:07AM ; [facility] History of Blood Clots 10/25/2020 Last Documented On 11:07AM ; [facility] History of Blood Transfusion 10/25/2020 Last Documented On 11:07AM ; [facility] History of Cancer 10/25/2020 Last Documented On 11:07AM ; [facility] History of Fractures 10/25/2020 Last Documented On 11:07AM ; [facility] History of heart disease 10/25/2020 Last Documented On 11:07AM ; [facility] Hypertension 10/25/2020 Last Documented On 11:07AM ; [facility] Irregular Heartbeat 10/25/2020 Last Documented On 11:07AM ; [facility] Past Surgical History: wrist repair ~hand sx ~gallstone sx 2011 ~mastectomy and reconstruction ~colonoscopy 2018 10/25/2020 Last Documented On 11:07AM ; [facility] Previous Fractures 10/25/2020 Last Documented On 11:07AM ; [facility] Sleep Apnea 10/25/2020 Last Documented On 1 11:07AM ; [facility] Use of CPAP 10/25/2020 Last Documented On 11:07AM ; [facility] Back surgery 12/15/2017 L4-5 Posterior Decompression and Fusion @ E ~11/07/2019 T12 Kyphyoplasty 10/25/2020 Last Documented On 11:07AM ; [facility] Heart surgery pacemaker 12/2019 ~Afib ab lation 10/25/2020 Last Documented On 06/25/202 1 11:07AM ; [facility] History of Gallbladder 10/25/2020 Last Documented On 1 11:07AM ; [facility] Hysterectomy 10/25/2020 Last Documented On 1 11:07AM ; [facility] Total hip replacement 12/2018-Left hip 0 10/17/2020 Last Documented On 1 9:12AM ; [facility] A previous fracture 10/31/2019 Last Documented On 0 9:14AM ; [facility] Gallbladder disease 2018 10/31/2019 Last Documented On 0 9:14AM ; [facility] History of diverticulitis of colon 11/15 Last Documented On 6 1:39PM ; [facility] History of osteoporosis 11/16/2015 Last Documented On 6 1:39PM ; [facility] A history of cancer 10/16/2014 Last Documented On 5 9:01AM ; [facility] Arthritic joint problems 10/16/2014 Last Documented On 5 9:01AM ; [facility] Family History Includes: Family History in patient's chart Description Last Updated Family history of cancer mother ~father 11/16/2015 Last Documented On 6 1:39PM ; [facility] Family history of diabetes mellitus moth er 11/16/2015 Last Documented On 6 1:39PM ; [facility] Family history of heart disease mother ~ father 11/16/2015 Last Documented On 6 1:39PM ; [facility] Family history of hypertension mother ~f ather 11/16/2015 Last Documented On 6 1:39PM ; [facility] Family history of osteoporosis mother Last Documented On 6 1:39PM ; [facility] Family history of rheumatoid arthritis m other 11/16/2015 Last Documented On 6 1:39PM ; [facility] Family history of thromboembolic disease mother 11/16/2015 Last Documented On 6 1:39PM ; [facility] Maternal history of hypertension 015 Last Documented On 5 9:01AM ; [facility] Maternal history of osteoporosis 015 Last Documented On 5 9:01AM ; [facility] Review of Systems Review of Systems [...] Patient Last Documented On 0 3:13PM ; [facility] Influenza 2 02/01/2022 Complete (Reported) Patient Last Documented On 2 1:10PM ; [facility] PCV (Pneumovax 23) 1 2013 Complete ( Reported) Patient Last Documented On 2 1:10PM ; [facility] PCV (Pneumovax 23) 2 04/17/2022 Complete (Refused - Patient objection) [facility] Last Documented On 2 1:10PM ; [facility] Allergies Includes: Active, inactive, and resolved Allergies Substance Type Reaction Onset Date Resolved Date Statu s Sulfa Antibiotics Allergy 06/09/2017 A ctive Last Documented On 4 12:09PM ; [facility] Statins Support Allergy 06/09/2017 Act citlalli Last Documented On 4 12:09PM ; [facility] Percocet Allergy 03/10/2012 Active Last Documented On 4 12:09PM ; [facility] Bactrim Allergy 11/16/2015 Active Last Documented On 4 12:09PM ; [facility] Encounters Includes: Encounters from 03/24/2024 through 03/24/2025 Encounter Provider Location Date Check-In Time Check-Out Time Diagnosis Follow Up Ceci Santos APRN [facility] 4 11:15AM 12:07PM Overweight Insurance Includes: Active Insurance Policies Plan Name Member ID Group # Subscriber Relationship Effect citlalli Dates 1 - Medicare Part B of [place] [id number] Luz Skaggs Self 04/03/2007 - Unknown 2 - [employer] [id number] PLAN Kit Skaggs Self 2011 - Unknown Clinical Notes Includes: Signed Clinical Notes starting from 04/17/2022 * Progress note Date Encounter Last Documented by 04/14/2024 Follow Up Last documented on 04/14/2024; 4:23 PM, Ceci Santos APRN; [facility] Active Problems & Conditions - [...] Capsule 5 days, 0 refills - MegaRed [place]-3 Krill Oil 350 MG Oral Capsule once [...] refills - Sudafed 30 MG Oral Tablet [id number] 0 days, 0 refills - Warfarin Sodium [...] Care Team - FATOUMATA LESLIE MD - INSURANCE AGENT Health Reminders - Assess BMI satisfied 04/14/2024. - Assess Tobacco Use satisfied 04/14/2024.
--- OUTSIDE RECORDS SUMMARY | 2025-03-24 10:09 | XMS_ITS | Encounter Summary ---
[facility] Address [address] [place] [address] Care Team Providers Care Commercial Credit Specialist Name Role Phone Ferny Gentile MD Primary Care Provider [phone] Encounter Details Date Type Department Care Team (Late st Contact Info) Description 02/03/2025 Anticoagulation Visit [facility] [address] [place] [address] Dayron Diallo, Maintenance Craftsman Social History Tobacco Use Types Packs/Day Years [...] this encounter Progress Notes * Dayron Diallo, Maintenance Craftsman - 02/03/2025 2:14 PM EDT Anticoagulation Clinic - Remote Progress [...] 12/16 12/23 12/30 01/06 01/13 01/20 01/27 02/03 Total Weekly Dose 52.5 mg 52.5 mg 52.5 mg 52.5 mg 52.5 mg 47.5 mg 52.5 mg 50 mg INR 2.8 2.0 2.2 2.4 3.7 2.3 3.4 2.9 Notes Medrol APAP Date Total Weekly Dose INR Notes Phone Interview: Verbal Release Authorization signed on 06/29/2019 -- may speak with Litzy Naranjo (daughter) Tablet Strength: 5mg tablets Patient Contact Info: [phone]; Litzy Naranjo (daughter) Patient Findings Positives: Upcoming invasive procedure Negatives: Signs/symptoms of thrombosis, Signs/symptoms of bleeding, Laboratory test error suspected, Change in health, Change in alcohol use, Change in activity, Emergency department visit, Upcomingdental procedure, Missed doses, Extra doses, Change in medications, Change in diet/appetite, Hospital admission, Bruising, Other complaints Comments: Patient mentions tylenol prn 2-3 doses this past week- less than week before prior encounter. Patient believes GLV is back to normal. Colonoscopy 03/[address] Cody Quiroz. All other findings negative per patient. Plan: INR is therapeutic today at 2.9 (goal 2 to 3). Instructed patient to continue warfarin 7.5 mg dailyuntil recheck. Recheck INR in 1 week, 02/07/25. Patient will be going on vacation, will check 02/13 if unable. Patient prefers testing Thursday. Verbal information provided over the phone. Luz Skaggs RBV dosing instructions, expresses understanding by teach back, and has no further questions at this time. Dayron Diallo [facility] 02/03/2025 14:26 EDClaudia Ospina, PharmD, have reviewed the note in full and agree with the assessment and plan. 02/06/25 08:45 EDT documented in this encounter Plan of Treatment Upcoming Encounters Date Type Department Care Team (Late st Contact Info) Description 06/30/2025 11:30 AM EST Office Visit [facility] [address] [place] [phone] David Bernstein MD 330 [facility] [address] [place] [address] 10/03/2025 2:45 PM EDT Office Visit [facility] CARD[facility] [address] [facility] [address] [place] [phone] Yon Govea MD [address] [facility] [address] [place], [place] [id number] 06/14/2026 1:30 PM EST Office Visit [facility] CARD[facility] [address] [place] [address] [address] [place] [address] Wojciech Flores MD [address] [facility] [address] [place], [place] [id number] documented as of this encounter Procedures Procedure Name Priority Date/Time Associated Diagnosis Comments PROTIME-INR Routine 02/03/2025 documented in this encounter Results * Protime-INR (02/03/2025) INR 2.90 Blood 02/03/2025 us Historical Provider LAB BLOOD ORDERABLES Agata l Result documented in this encounter Visit Diagnoses Not on filedocumented in this encounter Care Teams Commercial Credit Specialist Relationship Specialty Start Date End Date Ferny Gentile MD [address] [place] [address] PCP - General 06/11/15 documented as of this encounter
--- OUTSIDE RECORDS SUMMARY | 2025-03-24 10:09 | XMS_ITS | Encounter Summary ---
[facility] Address [address] [place] [address] Care Team Providers Care Inspector Pawnshop Detail Name Role Phone Ferny Gentile MD Primary Care Provider [phone] Encounter Details Date Type Department Care Team (Latest Contact Info) Description 11/06/2021 [facility]ticoagulation [facility] [address] [place] [address] [address] [place] [phone] Juan Ramon King, Car Racer Paroxysmal 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 (Primary Dx) Social History [...] Description 06/30/2025 11:30 AM EST Office Visit [facility] RHEUMATOLOGY [address] [address] David Bernstein MD [address] [facility] [address] [place], [place] [id number] 10/03/2025 2:45 PM EDT Office Visit [facility] CARDIOLOGY [address] [facility] [address] [place] [address] Yon Govea MD [address] [facility] [address] [place] [address] 06/14/2026 1:30 PM EST Office Visit [facility] CARDIOLOG[facility] [address] [place] [address] [place] [address] Wojciech Flores MD [address] [facility] [address] [place], [place] [id number] documented as of this encounter Visit Diagnoses Diagnosis Paroxysmal 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- Primary Atrial fibrillation documented in this encounter Care Teams Inspector Pawnshop Detail Relationship Specialty Start Date End Date Ferny Gentile MD [address] [facility] [address] [place] [address] PCP - General 06/11/15 documented as of this encounter
--- OUTSIDE RECORDS SUMMARY | 2025-03-24 10:09 | XMS_ITS | Encounter Summary ---
[facility] Address [address] [place] [address] Care Team Providers Care Health Care Technician Name Role Phone Ferny Gentile MD Primary Care Provider [phone] Encounter Details Date Type Department Care Team (Late st Contact Info) Description 02/17/2025 Anticoagulation Visit [facility] [address] [place] [phone] Karen Mace, Social Insurance Specialist Social History Tobacco Use Types Packs/Day Years [...] as of this encounter Progress Notes * Karen Mace, Social Insurance Specialist - 02/17/2025 1:35 PM EDT [facility] Progress Note Patient Demographics Method of INR reporting: ACELIS HOME MONITOR Estimated OOP Cost: Indication: Paroxsymal Atrial Fibrillation (I48.0) Referring Provider Wojciech Flores MD Reason patient is not on a DOAC: Undetermined Goal INR: 2-3 Warfarin Start Date Fall 2014 Reason patient is not on home monitor: [id number]: CHF (1), HTN (1), Age >74 (2), Stroke/TIA/Thromboembolism (2), and Female (1) 7: 9.6% Planned Duration of Therapy Indefinite Relevant medical history: Bleed Risk/History: No h/o bleed Tablets Strength: 5 mg (peach) Anticoagulation Clinic INR History Date 02/1805/06/2405/13 Total Weekly Dose 52.5 mg 52.5 mg 52.5 mg 52.5 mg 55 mg 55 mg 55 mg 55 mg 55 mg 57.5 mg 55 mg 55 mg 55 mg 57.5 mg 60 mg 60 mg 60 mg INR 2.2 1.7 2.2 1.6 2.1 2.5 2.0 2.4 2.6 1.7 2.8 2.1 1.7 1.8 2.5 2.9 3.0 Notes Rec'd 02/28 Rec'd 03/07 Rec'd 03/28 Rec'd 04/04 Rec'd 04/11 Contacted 04/13 Date 06/17 06/24 07/01 07/08 07/15 07/22 07/29 08/05 08/12 08/19 08/26 09/02 09/09 09/16 09/23 09/30 10/10 Total Weekly Dose 60 mg 55 mg 55 mg 52.5 mg 52.5 mg 52.5 mg 52.5 mg 52.5 mg 57.5 mg 52.5 mg 52.5 mg 52.5 mg 52.5mg 52.5 mg 55 mg 52.5 mg 52.5 mg INR 2.2 2.5 2.8 2.2 2.3 2.3 2.5 2.1 1.9 2.2 2.8 2.1 2.6 1.7 2.3 2.4 2.2 Notes Fall Cefdinir Date 10/16 10/21 10/29 11/04 11/11 11/18 11/25 12/02 12/09 12/16 12/23 12/30 01/06 01/13 01/20 01/27 02/03 Total Weekly Dose 52.5 mg 52.5 mg 52.5 mg 52.5 mg 55 mg 52.5 mg 55 mg 52.5 mg 52.5 mg 52.5 mg 52.5 mg 52.5 mg 52.5 mg 52.5 mg 47.5 mg 52.5 mg 50 mg INR 1.9 2.3 2.6 1.8 2.3 1.7 2.2 2.9 2.2 2.8 2.0 2.2 2.4 3.7 2.3 3.4 2.9 Notes Rec'd 10/18 Rec'd 11/01 Rec'd 11/08 Inc GLV Medrol APAP Date 02/08 02/17 Total Weekly Dose 52.5 mg 52.5 mg INR 1.9 2.7 Notes Patient Contact Information Verbal release: Signed 06/29/19 -- May speak with Litzy Naranjo Preferred contact number: Alternative contact number(s): [phone] (Litzy'lesley Mobile) Patient Appropriate for WarfNoCall ? No Preferred contact name: Luz Smallwood Skaggs Alternative contact name(s): Litzy Naranjo (Daughter) Preferred contact relation: Self Lab contact information (if applicable): Subjective Findings Drug Interactions Dietary Findings Historical: acetaminophen, coenzyme Q10, ezetimibe, furosemide, methotrexate, pantoprazole Historical GLV intake (11/06/23): 1-2x weekly New (including OTC): None GLV changes this encounter: None Alcohol and Tobacco Historical: None New: None Patient Findings Narrative: Negatives: Signs/symptoms of thrombosis, Signs/symptoms of bleeding, Laboratory test error suspected, Change in health, Change in alcohol use, Change in activity, Upcoming invasive procedure, Emergency department visit, Upcoming dental procedure, Missed doses, Extra doses, Change in medications, Change in diet/appetite, Hospital admission, Bruising, Other complaints Comments: All findings negative per patient. Dosing verified. Assessment and Plan: INR was therapeutic 02/17 at 2.7. Instructed patient to continue current regimen of warfarin 7.5 mgdaily until recheck. Recheck INR in 1 week, 02/24. Patient prefers testing Fridays. Verbal and written information provided. Luz Skaggs expresses understanding by teach back andhas no further questions at this time. Karen Mace CPhT, [facility] 08:38 EDT 02/21/2025 Hernan Mathis, MadisonD, have reviewed the note in full and agree with the assessment and plan. Patient must check INR 02/24 for [employer] requirements. 02/21/25 12:12 EDT documented in this encounter Plan of Treatment Upcoming Encounters Date Type Department Care Team (Late st Contact Info) Description 06/30/2025 11:30 AM EST Office Visit [facility] RHEUM[facility]OLOGY [address] [place] [address] David Bernstein MD [address] [place] [address] 10/03/2025 2:45 PM EDT Office Visit [facility] [address] [facility] [address] [place] [address] Yon Govea MD [address] [facility] [address] [place], [place] [address] 06/14/2026 1:30 PM EST Office Visit [facility] C[facility] [address] [place] [address] [place] [address] Wojciech Flores MD [address] [facility] [address] [place], [place] [phone] documented as of this encounter Procedures Procedure Name Priority Date/Time Associated Diagnosis Comments PROTIME-INR Routine 02/17/2025 documented in this encounter Results * Protime-INR (02/17/2025) INR 2.70 Blood 02/17/2025 us Historical Provider LAB BLOOD ORDERABLES Agata l Result documented in this encounter Visit Diagnoses Not on filedocumented in this encounter Care Teams Health Care Technician Relationship Specialty Start Date End Date Ferny Gentile MD [address] [facility] [address] [place] [address] PCP - General 06/11/15 documented as of this encounter
--- OUTSIDE RECORDS SUMMARY | 2025-03-24 10:09 | XMS_ITS | Encounter Summary ---
Author Organization [facility] Address [address] [place] [address] Care Team Providers Care Civil Draftsman Name Role Phone Ferny Gentile MD Primary Care Provider [phone] Encounter Details Date Type Department Care Team (Late st Contact Info) Description 02/07/2025 Telephone [facility] [address] [place] [address] Dayron Diallo, Services Manager Social History Tobacco Use Types Packs/Day Years [...] encounter Miscellaneous Notes * Telephone Encounter - Dayron Diallo Services Manager - 02/07/2025 10:[address] Quiroz office to confirm procedure (Colonoscopy 03/02) and warfarin hold duration [phone] ext. 4 for Wire Web Worker. LVM for Wire Web Worker to call anticoagulation clinic back.Clinic phone number provided. Dayron Diallo [facility] 02/07/2025 10:02 EDT documented in this encounter Plan of Treatment Upcoming Encounters Date Type Department Care Team (Late st Contact Info) Description 06/30/2025 11:30 AM EST Office Visit [facility] RHEUM[facility] [address] [facility] 100 [place] [address] David Bernstein MD 330 [facility] [address] [place] [address] 10/03/2025 2:45 PM EDT Office Visit [facility] C[facility] [address] [place] [address] Yon Govea MD [address] [facility] [address] [place], [place] [id number] 06/14/2026 1:30 PM EST Office Visit [facility] CARD[facility] [address] [place] [address] [place] [address] Wojciech Flores MD [address] [place] [address] documented as of this encounter Visit Diagnoses Not on filedocumented in this encounter Care Teams Civil Draftsman Relationship Specialty Start Date End Date Ferny Gentile MD [address] [facility] [address] [place] [address] PCP - General 06/11/15 documented as of this encounter
--- OUTSIDE RECORDS SUMMARY | 2025-03-24 10:09 | XMS_ITS | Encounter Summary ---
[facility] Address [address] [place] [address] Care Team Providers Care Microfilm Clerk Name Role Phone Ferny Gentile MD Primary Care Provider [phone] Encounter Details Date Type Department Care Team (Late st Contact Info) Description 02/02/2025 Telephone [facility] RHEUMATOLOGY [address] [address] David Bernstein MD [address] [address] Social History Tobacco Use Types Packs/Day [...] as of this encounter Progress Notes * Cara Palencia MA - 02/02/2025 11:00 AM EDTAddended by: CARA PALENCIA on: 02/02/2025 11:00 AM Modules accepted: Orders documented in this encounter Miscellaneous Notes * Telephone Encounter - Cara Palencia MA - 02/02/2025 10:59 AM EDT Refill request for MTX. Pt has return appt on 06/30/25 and her labs are in chart dated for 02/01/25. I sent in rx for a 90-day supply with no refills to [facility]. -ROCK Lockhart * Telephone Encounter - Nano Campbell RegSched Rep - 02/02/2025 8:46 AM EDT Incoming Refill Request Medication requested (name and dose): methotrexate 2.5 MG tablet Pharmacy where request should be sent: [facility] [address] [place], [place] - [address] [phone] - [phone] [address] Hours: Not open 24 hours Additional details provided by patient: Pt states she had blood work on 02/01 Best call back number: [phone] Does the patient have less than a 3 day supply: [x] Yes [] No Otis Cain Rep 02/02/25, 08:46 EDT documented in this encounter Plan of Treatment Upcoming Encounters Date Type Department Care Team (Late st Contact Info) Description 06/30/2025 11:30 AM EST Office Visit [facility] RHEUMATOLOG[facility] 330 [facility] 100 [place] [address] David Bernstein MD 330 [facility] 100 [place] [address] 10/03/2025 2:45 PM EDT Office Visit [facility] CARDIOLOG[facility] [address] [facility] [address] [place] [address] Yon Govea MD 1720 [facility] [address] [place] [address] 06/14/2026 1:30 PM EST Office Visit [facility] CARDIOLOG[facility] [address] [place] [address] [place] [address] Wojciech Flores MD 1720 [facility] [address] [place], [place] [address] documented as of this encounter Visit Diagnoses Not on filedocumented in this encounter Care Teams Microfilm Clerk Relationship Specialty Start Date End Date Ferny Gentile MD [address] [place] [address] [place] [address] PCP - General 06/11/15 documented as of this encounter
--- OUTSIDE RECORDS SUMMARY | 2025-03-24 10:10 | XMS_ITS | Encounter Summary ---
[facility] Address [address] [place] [address] Care Team Providers Care Car Construction Superintendent Name Role Phone Ferny Gentile MD Primary Care Provider Encounter Details Date Type Department Care Team (Late st Contact Info) Description 09/15/2024 Results Follow-Up [facility] RHEUMATOLOGY [address] [address] David Bernstein MD 330 [facility] 100 [place] [address] Social History Tobacco Use Types [...] Description 06/30/2025 11:30 AM EST Office Visit [facility] RHEUM[facility] 330 [facility] 100 [place] [address] David Bernstein MD [address] [facility] [address] [place] [address] 10/03/2025 2:45 PM EDT Office Visit [facility] CARDIOLOG[facility] [address] [facility] [address] [place] [address] Yon Govea MD [address] [facility] [address] [place] [address] 06/14/2026 1:30 PM EST Office Visit [facility] CARDIOLOG[facility] [address] [facility] [place] [address] Wojciech Flores MD [address] [place] [address] documented as of this encounter Visit Diagnoses Not on filedocumented in this encounter Care Teams Car Construction Superintendent Relationship Specialty Start Date End Date Ferny Gentile MD 1210 [facility] [address] [place] [address] PCP - General 06/11/15 documented as of this encounter
--- OUTSIDE RECORDS SUMMARY | 2025-03-24 10:10 | XMS_ITS | Encounter Summary ---
[facility] Organization [facility] Address [address] [place] [address] Care Team Providers Care Load Tester Name Role Phone Ferny Gentile MD Primary Care Provider [phone] Encounter Details Date Type Department Care Team (Latest Contact Info) Description 06/22/2019 Anticoagulation Visit [facility] [address] [place] [address] [address] [place] [id number] Leticia Vivar, Nuclear Medical Technologist Paroxysmal 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 Social History Tobacco Use [...] 11:30 AM EST Office Visit [facility] RHEUMATOLOGY 330 [facility] 100 [place] [address] David Bernstein MD 330 [facility] 100 [place], [place] [id number] 10/03/2025 2:45 PM EDT Office Visit [facility] CARDIOLOGY [address] [facility] [address] [place] [address] Yon Govea MD [address] [place], [place] [id number] 06/14/2026 1:30 PM EST Office Visit [facility] CARDIOLOGY [address] [place] [address] Wojciech Flores MD [address] [facility] [address] [place], [place] [id number] documented as of this encounter Procedures Procedure [...] documented as of this encounter Care Teams Load Tester Relationship Specialty Start Date End Date Ferny Gentile MD [address] [facility] [address] [place] [address] PCP - General 06/11/15 documented as of this encounter
--- OUTSIDE RECORDS SUMMARY | 2025-03-24 10:10 | XMS_ITS | Encounter Summary ---
[facility] Organization [facility] Address [address] [place] [address] Care Team Providers Care Pharmaceutical Development Technician Name Role Phone Ferny Gentile MD Primary Care Provider [phone] Reason for Visit * Reason Comments Med Refill Encounter Details Date Type Department Care Team (Late st Contact Info) Description 01/30/2024 Refill [facility] CARDIOLOGY [address] [place] [address] [address] Wojciech Flores MD [address]20 [facility] [place] [address] Med Refill Social History Tobacco Use Types [...] Description 06/30/2025 11:30 AM EST Office Visit [facility] RHEUMATOLOGY [address] [address] David Bernstein MD 330 [facility] 100 [place] [address] 10/03/2025 2:45 PM EDT Office Visit [facility] CARDIOLOGY [address] [facility] [address] [place] [address] Yon Govea MD [address] [facility] 400 [place] [address] 06/14/2026 1:30 PM EST Office Visit [facility] CARDIOLOGY 210 [facility] [place] [address] Wojciech Flores MD [address] [place], [place] [id number] documented as of this encounter Visit Diagnoses Not on filedocumented in this encounter Care Teams Pharmaceutical Development Technician Relationship Specialty Start Date End Date Ferny Gentile MD [address] [facility] [address] [place] [address] PCP - General 06/11/15 documented as of this encounter
--- OUTSIDE RECORDS SUMMARY | 2025-03-24 10:10 | XMS_ITS | Encounter Summary ---
[facility] Address [address] [place] [address] Care Team Providers Care Flight Tower Dispatcher Name Role Phone Ferny Gentile MD Primary Care Provider [phone] Encounter Details Date Type Department Care Team (Late st Contact Info) Description 10/31/2024 Results Follow-Up [facility] CARDIOLOGY 1720 [facility] 400 [place] [address] Yon Govea MD 1720 [facility] 400 [place] [id number] Social History Tobacco Use Types Packs/Day Years [...] Description 06/30/2025 11:30 AM EST Office Visit [facility] RHEUMATOLOGY 330 [facility] 100 [place] [address] David Bernstein MD 330 [facility] 100 [place] [address] 10/03/2025 2:45 PM EDT Office Visit [facility] CARDIOLOGY 3000 [facility] [address] [place] [address] Yon Govea MD [facility] 400 [place] [address] 06/14/2026 1:30 PM EST Office Visit [facility] CARDIOLOGY 210 [facility] [place] [place] [address] Wojciech Flores MD [address] [place] [address] documented as of this encounter Visit Diagnoses Not on filedocumented in this encounter Care Teams Flight Tower Dispatcher Relationship Specialty Start Date End Date Ferny Gentile MD 1210 [facility] [address] [place] [address] PCP - General 06/11/15 documented as of this encounter
--- OUTSIDE RECORDS SUMMARY | 2025-03-24 10:10 | XMS_ITS | Encounter Summary ---
[facility] Address [address] [place] [address] Care Team Providers Care Oil Heater Installer Name Role Phone Ferny Gentile MD Primary Care Provider [phone] Encounter Details Date Type Department Care Team (Late st Contact Info) Description 11/15/2024 Results Follow-Up [facility] RHEUMATOLOGY [address] [address] David Bernstein MD 330 [facility] 100 [place] [address] Social History Tobacco Use Types [...] Description 06/30/2025 11:30 AM EST Office Visit [facility] RHEUMATOLOGY 330 [facility] 100 [place] [address] David Bernstein MD 330 [facility] 100 [place] [address] 10/03/2025 2:45 PM EDT Office Visit [facility] CARDIOLOGY 3000 [facility] [address] [place] [address] Yon Govea MD [address] [facility] 400 [place] [address] 06/14/2026 1:30 PM EST Office Visit [facility] CARDIOLOGY 210 [facility] [place] [place] [address] Wojciech Flores MD [address] [place] [address] documented as of this encounter Visit Diagnoses Not on filedocumented in this encounter Care Teams Oil Heater Installer Relationship Specialty Start Date End Date Ferny Gentile MD 1210 [facility] [address] [place] [address] PCP - General 06/11/15 documented as of this encounter
--- OUTSIDE RECORDS SUMMARY | 2025-03-24 10:10 | XMS_ITS | Clinical Summary ---
Author Organization [facility] Address [address] [place] [address] Phone Care Team Providers Care Retail Product Advisor Name Role Phone MARIAMA MORALEZ, FATOUMATA E Primary Care Provider [phone] Camila MORALEZ, Alanna Bowen Unavailable [phone] [...] Active Last Documented On 2 1:05PM ; [facility] Joint Pain Right Thumb 04/17/2022 Ceci griffin APRN Active Last Documented On 2 1:05PM ; [facility] Midback Pain 10/17/2020 Brandon Wilks MD Acti ve Last Documented On 1 2:32PM ; [facility] Joint Pain Left Knee 02/16/2020 Eliseo Cuevas MD Active Last Documented On 0 1:26PM ; [facility] Joint Pain Right Knee 10/29/2016 Alanna castaneda MD Active Last Documented On 7 10:32AM ; [facility] Pain in Lumbar Spine 03/13/2016 Alanna krause MD Active Last Documented On 6 1:07PM ; [facility] Joint Pain Hip Left 03/13/2016 Alanna chin MD Active Last Documented On 6 1:09PM ; [facility] Joint Pain Knee 03/10/2012 Alanna Pereira Active Last Documented On 2 10:37AM ; [facility] Plan of Treatment Fall Risk [...] Documented On 09/01/2023 8:29AM ; [facility] Overall patient is very pleased with the knee surgery, no complaints today. We will plan for follow up 5 year postop intervals - Last Documented On 09/01/2023 8:29AM ; [facility] Instructions to patient Lose weight Last Documented On 4 3:03PM ; [facility] Assessments Includes: Assessments from this encounter Findings - Overweight - Last Documented On 09/01/2023 8:29AM ; [facility] 1 year status post left TKA - Last Documented On 09/01/2023 8:29AM ; [facility] Instructions Includes: Instructions from this encounter Instructions to patient Lose weight Last Documented On 4 3:03PM ; [facility] Medical Equipment - Implanted Devices Includes: Current Devices No Medical Equipment Recorded Medications Includes: Medications discussed during this encounter and other current Medications Current Medications (continue as prescribed) Colestipol HCl 5 GM Oral Packet 04/14/2024 Provider: Diagnosis: Last Documented On 4 11:25AM By Carla Hall ; [facility] Protonix 20 MG Oral Tablet Delayed Release 06/16/2022 Provider: Diagnosis: Last Documented On 3 4:00PM By Elif Stephens [facility] Flecainide Acetate 100 MG Oral Tablet 06/16/2022 Pro vider: Diagnosis: Last Documented On 3 4:01PM By Elif Chicas ; [facility] Metoprolol Succinate ER 25 M G Oral Tablet Extended Release 24 Hour 06/12/2022 Provider: Diagnosis: Last Documented On 3 4:00PM By Elif Chicas ; [facility] predniSONE 10 MG Oral Tablet 05/02/2022 Provider: FATOUMATA LESLIE MD Diagnosis: Last Documented On 3 4:00PM By Elif Chicas ; [facility] Lagevrio 200 MG Oral Capsule 04/22/2022 Provider: FATOUMATA LESLIE MD Diagnosis: Last Documented On 3 4:00PM By Elif Chicas ; [facility] Lagevrio 200 MG Oral Capsule 04/22/2022 Provider: FATOUMATA LESLIE MD Diagnosis: Last Documented On 3 4:00PM By Elif Chicas ; [facility] Mupirocin 2% External Ointment 04/16/2022 Provider: Eliseo Cuevas MD Diagnosis: three times a day Apply to n ostrils 3 time a day 5 days prior to surgery. Last Documented On 2 2:50PM By Gilda Kamara ; [facility] MegaRed Jenkins-3 Krill Oil 350 MG Oral Capsule 10/26/19 21 Provider: Diagnosis: Last Documented On 1 1:15PM By Betzaida Donald ; [facility] Sudafed 30 MG Oral Tablet 10/25/2020 Provider: Diagnosis: Last Documented On 1 1:15PM By Betzaida Donald ; [facility] Mucinex Allergy 180 MG Oral Tablet 10/25/2020 Provid er: Diagnosis: Last Documented On 1 1:14PM By Betzaida Donald ; [facility] Warfarin Sodium 7.5 MG Oral Tablet 10/17/2020 Provid er: Diagnosis: Last Documented On 1 2:43PM By Greer Kingston ; [facility] Ezetimibe 10 MG Oral Tablet 09/11/2020 Provider: FATOUMATA LESLIE MD Diagnosis: Last Documented On 1 1:13PM By Betzaida Donald ; [facility] Digoxin 125 MCG Oral Tablet 07/21/2020 Provider: Diagnosis: Last Documented On 1 2:44PM By Greer Kingston ; [facility] CoQ-10 10 MG Oral Capsule 10/20/2019 Provider: Diagnosis: Last Documented On 0 4:01PM By Greer Kingston ; [facility] D3-1000 25 MCG (1000 UT) Oral Capsule 10/20/2019 Pro vider: Diagnosis: Last Documented On 0 4:00PM By Greer Kingston ; [facility] Omeprazole 20 MG Oral Ta blet Delayed Release Disintegrating 10/20/2019 Provider: Diagnosis: Last Documented On 0 3:59PM By Greer Kingston ; [facility] Probiotic Maximum Strength Oral Capsule 10/20/2019 Provider: Diagnosis: Last Documented On 0 3:58PM By Greer Kingston ; [facility] Citalopram Hydrobromide 10 MG Oral Tablet 10/20/2019 Provider: Diagnosis: Last Documented On 0 3:56PM By Greer Kingston ; [facility] Flecainide Acetate 100 MG Oral Tablet 10/20/2019 Pro vider: Diagnosis: Last Documented On 0 3:55PM By Greer Kingston ; [facility] Past Medications on file oxyCODONE HCl 5 MG Oral Tablet 05/29/2022 - 06/03/2022 Provider: Eliseo ceja MD Diagnosis: 1-2 po q 4-6h Last Documented On 3 12:32PM By Hima Cuevas ; [facility] traMADol HCl 50 MG Oral Tablet 05/29/2022 - 06/03/2022 Provider: Eliseo ceja MD Diagnosis: 1-2 po q 4-6h Last Documented On 3 12:32PM By Hima Cuevas ; [facility] Lovenox 40 MG/0.4ML Injection Solution Prefilled Syringe 05/26/2022 - 05/30/2022 Provider: Eliseo ceja MD Diagnosis: 1 sub q injection 1 time day Last Documented On 3 8:35AM By Hima Cuevas ; [facility] Cefadroxil 500 MG Oral Capsule 05/21/2022 - 05/24/2022 Provider: Eliseo ceja MD Diagnosis: twice a day Last Documented On 3 12:08PM By Hima Cuevas ; [facility] Colace 100 MG Oral Capsule 05/21/2022 - 08/19/2022 Provider: Eliseo ceja MD Diagnosis: 1-2 tabs daily Last Documented On 3 12:08PM By Hima Cuevas ; [facility] traMADol HCl 50 MG Oral Tablet 05/21/2022 - 05/26/2022 Provider: Eliseo ceja MD Diagnosis: 1-2 po q 4-6h Last Documented On 3 12:08PM By Hima Cuevas ; [facility] Acetaminophen 500 MG Oral Tablet 05/21/2022 - 06/20/2022 Provider: Eliseo Cuevas MD Diagnosis: 2 three times a day Last Documented On 3 12:08PM By Hima Cuevas ; [facility] oxyCODONE HCl 5 MG Oral Tablet 05/21/2022 - 05/26/2022 Provider: Eliseo ceja MD Diagnosis: 1-2 po q 4-6h Last Documented On 3 12:08PM By Hima Cuevas ; [facility] Ondansetron HCl 4 MG Oral Tablet 05/21/2022 - 05/26/2022 Provider: Eliseo Cuevas MD Diagnosis: [id number] Last Documented On 3 12:08PM By Hima Cuevas ; [facility] Meloxicam 15 MG Oral Tablet 05/21/2022 - 06/20/2022 Provider: Eliseo ceja MD Diagnosis: once a day Last Documented On 3 12:08PM By Hima Cuevas ; [facility] HYDROcodone-Acetaminophen 7. 5-325 MG Oral Tablet 10/25/2020 - 11/14/2020 Provider: Brandon Wilks MD Diagnosis: twice a day Last Documented On 1 12:08PM By Dr. Wilks ; [facility] F[place] 5-325MG Oral Tablet 12/23/2018 - 01/22/2019 Provider: Eliseo ceja MD Diagnosis: 1-2 po q6h prn pain Last Documented On 9 3:09PM By Reanna Gutierrez ; [facility] Acetaminophen 500MG Oral Tablet 12/08/2018 - 01/07/2019 Provider: Eliseo Cuevas MD Diagnosis: 2 three times a day FOR BACON RGERY DO NOT FILL UNTIL 12/14/18 Last Documented On 9 4:10PM By Reanna Gutierrez ; [facility] traMADol HCl 50MG Oral Tablet 12/08/2018 - 12/13/2018 Provider: Eliseo ceja MD Diagnosis: 1-2 po q6h prn pain FOR BACON RGERY DO NOT FILL UNTIL 12/14/18 Last Documented On 9 4:06PM By Reanna Gutierrez ; [facility] Neurontin 300MG Oral Capsule 12/08/2018 - 03/08/2019 Provider: Eliseo ceja MD Diagnosis: 1 every bedtime FOR SURGER Y DO NOT FILL UNTIL 12/14/18 Last Documented On 9 4:05PM By Reanna Gutierrez ; [facility] Dilaudid 2MG Oral Tablet 12/08/2018 - 12/10/2018 Provi gaby: Eliseo Cuevas MD Diagnosis: 1-2 po q6h prn pain (RESCUE PAIN) FOR SURGERY DO NOT FILL UNTIL 12/14/18 Last Documented On 9 4:05PM By Reanna Gutierrez ; [facility] Colace 100MG Oral Capsule 12/08/2018 - 03/08/2019 Provider: Eliseo ceja MD Diagnosis: 1-2 tabs daily FOR SURGERY DO NOT FILL UNTIL 12/14/18 Last Documented On 9 4:10PM By Reanna Gutierrez ; [facility] Mupirocin 2% External Ointment 11/09/2018 - 11/14/2018 Provider: Eliseo ceja MD Diagnosis: Apply to nostrils 3 time a d ay 5 days prior to surgery. Last Documented On 9 10:40AM By Gilda Kamara ; [facility] [place] 5-325MG Oral Tablet 12/24/2017 - 12/31/2017 Prov ider: Brandon Wilks MD Diagnosis: 1-2 po q 4-6h PRN Last Documented On 8 5:31PM By Dr. Wilks ; [facility] [place] 7.5-325 MG OR TABS 12/24/2017 - 01/03/2018 Provi gaby: Brandon Wilks MD Diagnosis: Last Documented On 8 11:35AM By Marcelle Croft ; [facility] Voltaren Gel 1% External 10/14/2017 - 12/13/2017 Provi gaby: Alanna Jensen MD Diagnosis: use as directed Last Documented On 8 10:09AM By Sayra Evans ; [facility] Lovenox 40MG/0.4ML Subcutaneous Solution 05/06/2017 - 05/26/2017 Provider: Alanna castaneda MD Diagnosis: use as directed/1 INJECTION PER DAY FOR 5 DAYS PRIOR TO PROCEDER & 1 INJECTION PER DAY FOR 5 DAYS AFTER PROCERDER/ Last Documented On 8 4:29PM By Sayra Evans ; [facility] [place] 5-325 MG Tablet 10/29/2016 - 11/05/2016 Provider : Alanna Jensen MD Diagnosis: 1-2 po q 4-6h PRN Last Documented On 7 11:55AM By Camryn Paez ; [facility] Medrol 4 MG Tablet Therapy Pack 02/14/2016 - 02/20/2016 Provider: Alanna chin MD Diagnosis: use as directed by pharmacy Last Documented On 6 3:16PM By Heather Langley ; [facility] [place] 5-325 MG Tablet 12/03/2015 - 12/18/2015 Provider : Alanna Jensen MD Diagnosis: 1-2 po q 4-6h Last Documented On 6 1:26PM By Heather Langley ; [facility] [place] 7.5-325 MG Tablet 11/16/2015 - 12/16/2015 Provid er: Alanna Jensen MD Diagnosis: 1 every 4 - 6 hours PO PRN Last Documented On 6 2:09PM By Lani Marquez ; [facility] Voltaren 1% TD GEL 01/31/2013 - 03/02/2013 Provider: Alanna Jensen MD Diagnosis: DEGENERATIVE MIKEY NT DISEASE KNEE apply 4 grams to affected ar ea 4 times a day//ks Last Documented On 3 2:16PM By Ann Marie Sutherland ; [facility] Lortab 10-500 MG OR TABS 09/14/2012 - 09/21/2012 Provi gaby: Alanna Jensen MD Diagnosis: [id number] [facility] jsb/df Last Documented On 3 8:56AM By Jose F Gutierrez ; [facility] Lortab 10-500 MG OR TABS 08/06/2012 - 08/13/2012 Provi gaby: Alanna Jensen MD Diagnosis: [phone] [employer] jsb/df Last Documented On 3 1:59PM By Jose F Gutierrez ; [facility] Lortab 10-500 MG OR TABS 07/09/2012 - 07/16/2012 Provi gaby: Alanna Jensen MD Diagnosis: [id number] [employer] jsb Last Documented On 3 12:36PM By Jose F Gutierrez ; [facility] Lortab 10-500 MG OR TABS 07/01/2012 - 07/08/2012 Provi gaby: Alanna Jensen MD Diagnosis: [phone] [facility] df Last Documented On 3 1:53PM By Jose F Gutierrez ; [facility] Xarelto 10 MG OR TABS 06/14/2012 - 07/05/2012 Provider : Alanna Jensen MD Diagnosis: sx on 06-15-/kw Last Documented On 3 1:31PM By Danielle Dobson ; [facility] Lortab 10-500 MG OR TABS 06/14/2012 - 06/21/2012 Provi gaby: Alanna Jensen MD Diagnosis: sx on 06-15-12 Last Documented On 3 1:31PM By Danielle Dobson ; [facility] Medications Administered Includes: Administered Medications from this encounter No Administered Medications Recorded Vital Signs Includes: Vital Signs from this encounter Vital Name 08/18/2023 03:29P Height (in) 65 Weight (lb) 172 Body Mass Index 28.6 Body Surface Area 1.9 Note: tm Last Documented: On 08/18/2023 3:30PM ; [facility] Results Includes: Results discussed during this encounter No Results Recorded For Specified Dates History of Present Illness Includes: History of Present Illness from this encounter MAYCOL Skaggs is an 83 year old female. - Allergy list reviewed - Problem list reviewed - Medication list reviewed Social History Description Last Updated Tobacco non-user 04/14/2024 Last Documented On 4 3:03PM ; [facility] Alcohol use 10/25/2020 Last Documented On 4 3:03PM ; [facility] Recent change in diet 10/25/2020 Last Documented On 4 3:03PM ; [facility] Non-smoker 10/17/2020 Last Documented On 4 3:03PM ; [facility] Not exercising regularly 10/31/2019 Last Documented On 4 3:03PM ; [facility] Smoking Status Unknown Procedures and Surgical History Includes: Procedures from this encounter Procedures Code Diagnosis Performing Provider Service L ocation Service Date use of tobacco assessment performed 1000F Last Documented On 4 3:03PM ; [facility] patient screened for future fall risk: documentation of any fall with injury in past year 1100F Last Documented On 4 3:03PM ; [facility] review of medications documented 1160F Last Documented On 4 3:30PM ; [facility] follow-up visit in one month Last Documented On 4 3:03PM ; [facility] referral to physician Last Documented On 4 3:03PM ; [facility] an X-ray was performed 23847 Last Documented On 4 3:03PM ; [facility] Surgical History Last Updated History of back surgery 11/2019-Kypho T1 2 10/17/2020 Last Documented On 4 3:03PM ; [facility] History of heart surgery ablation 2017 0 10/31/2019 Last Documented On 4 3:03PM ; [facility] History of total hip replacement left hi p 2019 10/31/2019 Last Documented On 4 3:03PM ; [facility] History of total knee arthroplasty right knee 201210/31/2019 Last Documented On 4 3:03PM ; [facility] History of hysterectomy 10/16/2014 Last Documented On 4 3:03PM ; [facility] Medical History Includes: Medical History addressed during this encounter Description Last Updated Recent immunization for flu 02/01/2022 1 06/15/2023 Last Documented On 4 3:03PM ; [facility] Recent immunization for pneumococcal pne umonia 201304/14/2024 Last Documented On 4 3:03PM ; [facility] History of Irregular Heartbeat A-fib; ep isode after TKA- cadiovert needed 06/16/2022 Last Documented On 4 3:03PM ; [facility] blood transfusions 10/25/2020 Last Documented On 4 3:03PM ; [facility] Arthritis 10/25/2020 Last Documented On 4 3:03PM ; [facility] Heartburn / Acid Reflux 10/25/2020 Last Documented On 4 3:03PM ; [facility] History of Blood Clots 10/25/2020 Last Documented On 4 3:03PM ; [facility] History of Blood Transfusion 10/25/2020 Last Documented On 4 3:03PM ; [facility] History of Cancer 10/25/2020 Last Documented On 4 3:03PM ; [facility] History of Fractures 10/25/2020 Last Documented On 4 3:03PM ; [facility] History of heart disease 10/25/2020 Last Documented On 4 3:03PM ; [facility] Hypertension 10/25/2020 Last Documented On 4 3:03PM ; [facility] Irregular Heartbeat 10/25/2020 Last Documented On 4 3:03PM ; [facility] Past Surgical History: wrist repair ~hand sx ~gallstone sx 2011 ~mastectomy and reconstruction ~colonoscopy 2018 10/25/2020 Last Documented On 4 3:03PM ; [facility] Previous Fractures 10/25/2020 Last Documented On 4 3:03PM ; [facility] Sleep Apnea 10/25/2020 Last Documented On 4 3:03PM ; [facility] Use of CPAP 10/25/2020 Last Documented On 4 3:03PM ; [facility] Back surgery 12/15/2017 L4-5 Posterior Decompression and Fusion @ [facility] ~11/07/2019 T12 Kyphyoplasty 10/25/2020 Last Documented On 4 3:03PM ; [facility] Heart surgery pacemaker 12/2019 ~Afib ab lation 10/25/2020 Last Documented On 4 3:03PM ; [facility] History of Gallbladder 10/25/2020 Last Documented On 4 3:03PM ; [facility] Hysterectomy 10/25/2020 Last Documented On 4 3:03PM ; [facility] Total hip replacement 12/2018-Left hip 0 10/17/2020 Last Documented On 4 3:03PM ; [facility] A previous fracture 10/31/2019 Last Documented On 4 3:03PM ; [facility] Gallbladder disease 2018 10/31/2019 Last Documented On 4 3:03PM ; [facility] History of diverticulitis of colon 11/15 Last Documented On 4 3:03PM ; [facility] History of osteoporosis 11/16/2015 Last Documented On 4 3:03PM ; [facility] A history of cancer 10/16/2014 Last Documented On 4 3:03PM ; [facility] Arthritic joint problems 10/16/2014 Last Documented On 4 3:03PM ; [facility] Family History Includes: Family History addressed during this encounter Description Last Updated Family history of cancer mother ~father 11/16/2015 Last Documented On 4 3:03PM ; [facility] Family history of diabetes mellitus moth er 11/16/2015 Last Documented On 4 3:03PM ; [facility] Family history of heart disease mother ~ father 11/16/2015 Last Documented On 4 3:03PM ; [facility] Family history of hypertension mother ~f ather 11/16/2015 Last Documented On 4 3:03PM ; [facility] Family history of osteoporosis mother Last Documented On 4 3:03PM ; [facility] Family history of rheumatoid arthritis m other 11/16/2015 Last Documented On 4 3:03PM ; [facility] Family history of thromboembolic disease mother 11/16/2015 Last Documented On 4 3:03PM ; [facility] Maternal history of hypertension 015 Last Documented On 4 3:03PM ; [facility] Maternal history of osteoporosis 015 Last Documented On 4 3:03PM ; [facility] Review of Systems Includes: Review [...] ctive Last Documented On 4 12:09PM ; [facility] Statins Support Allergy 06/09/2017 Act citlalli Last Documented On 4 12:09PM ; [facility] Percocet Allergy 03/10/2012 Active Last Documented On 4 12:09PM ; [facility] Bactrim Allergy 11/16/2015 Active Last Documented On 4 12:09PM ; [facility] Encounters Encounter Provider Location Date Check-In Time Check-Out Time Diagnosis Follow Up Hernan Gold PA-C [facility] 4 3:15PM 3:34PM Overweight Insurance Includes: Active Insurance Policies Plan Name Member ID Group # Subscriber Relationship Effect citlalli Dates 1 - Medicare Part B [facility] [id number] Luz Howard 04/03/2007 - Unknown 2 - [facility] [id number] PLAN F Luz Skaggs Self 2011 - Unknown Clinical Notes Includes: Clinical Notes from this encounter * Progress note Date Encounter Last Documented by 08/18/2023 Follow Up Last documented on 09/01/2023; 8:29 AM, Hernan Gold PA-C; [facility] Active Problems & Conditions [...] directed 0 days, 0 refills - Ipratropium [place] 0.03% Nasal Solution take as directed 0 days, 0 refills - Lagevrio 200 MG Oral Capsule 5 days, 0 refills - Lagevrio 200 MG Oral Capsule 5 days, 0 refills - MegaRed Jenkins-3 Krill Oil 350 MG Oral Capsule once [...] refills - Sudafed 30 MG Oral Tablet [id number] 0 days, 0 refills - Warfarin Sodium [...] 12/15/2017 L4-5 Posterior Decompression and Fusion @ [facility] 11/07/2019 T12 Kyphyoplasty - Total hip replacement [...] Care Team - FATOUMATA LESLIE MD - [facility]
--- OUTSIDE RECORDS SUMMARY | 2025-03-24 10:10 | XMS_ITS | Encounter Summary ---
Author Organization [facility] Address [address] [place] [address] Care Team Providers Care Light Bulb Replacer Name Role Phone Ferny Gentile MD Primary Care Provider [phone] Encounter Details Date Type Department Care Team (Latest Contact Info) Description 09/24/2018 Anticoagulation Visit [facility] [address] [place] [address] [address] [place] [address] Orville Reyes Paroxysmal 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 Social History [...] Description 06/30/2025 11:30 AM EST Office Visit [facility] [address] [address] David Bernstein MD 330 [facility] [address] [place] [address] 10/03/2025 2:45 PM EDT Office Visit [facility] C[facility] [address] [facility] [address] [place] [address] Yon Govea MD [address] [facility] [address] [place] [address] 06/14/2026 1:30 PM EST Office Visit [facility] [address] [place] [address] [place] [address] Wojciech Flores MD [address] [place] [address] documented as of this encounter Visit Diagnoses Diagnosis Paroxysmal 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 Atrial fibrillation documented in this encounter Additional Health Concerns Infection Onset Date Last Indicated Resolved Time COVID Screen (preop/placement) 12/11/2019 12/11/2019 12/12/2019 2:04 PM EDT COVID Screen (preop/placement) 02/12/2020 02/12/2020 02/14/2020 7:46 AM EDT COVID Screen (preop/placement) 01/15/2021 01/15/2021 01/15/2021 10:59 PM EDT documented as of this encounter Care Teams Light Bulb Replacer Relationship Specialty Start Date End Date Ferny Gentile MD [address] [facility] [address] [facility] [address] PCP - General 06/11/15 documented as of this encounter
--- OUTSIDE RECORDS SUMMARY | 2025-03-24 10:10 | XMS_ITS | Clinical Summary ---
Author Organization [facility] Address [address] [place] [address] Care Team Providers Care Anesthesiology Faculty Name Role Phone Ferny Gentile MD Primary Care Provider [phone] Allergies Active Allergy Reactions Criticality Noted Date [...] Daily. 90 tablet 3 06/15/19 25 Active dofetilide (TIKOSYN) 125 MCG capsule Take 1 capsule by mouth Every 12 (Twelve) Hours. 180 capsule 3 12/13/19 25 Active methylPREDNISol one (MEDROL) 4 MG dose pack take by mouth as directed on inside of package 01/07/20 25 Active estradiol (ESTRACE) 0.1 MG/GM vaginal cream As Needed. 10/27/19 25 Active ofloxacin (OCUFLOX) 0.3 % ophthalmic solution 01/10/20 25 Active methotrexate 2.5 MG tablet Take 6 tablets by mouth 1 (One) Time Per Week. 72 tablet 02/03/20 25 Active sodium-potassiu m-magnesium sulfates (SUPREP) 17.5-3.13-1.6 GM/177ML solution oral solution DILUTE; DRINK FULL AMOUNT EARLY EVENING BEFORE AND NEXT MORNING AT LEAST 4-5 HR BEFORE PROCEDURE; FOLLOW W 960 ML WATER PO 02/17/20 25 Active enoxaparin sodium (LOVENOX) 80 MG/0.8ML solution prefilled syringe syringe Inject 0.8 mL under the skin into the appropriate area as directed Every 12 (Twelve) Hours. Or as directed by anticoagulation clinic. *Start on 02/26/25* 1.6 mL 02/22/20 25 Active warfarin (COUMADIN) 5 MG tablet TAKE 1 TO 1 & 1/2 (ONE TO ONE & ONE-HALF) TABLETS BY MOUTH ONCE DAILY OR DIRECTED BY THE ANTICOAGULATION CLINIC 135 tablet 1 03/07/20 25 Active warfarin (COUMADIN) 5 MG tablet TAKE 1 TO 1 & 1/2 (ONE TO ONE & ONE-HALF) TABLETS BY MOUTH ONCE DAILY OR DIRECTED BY THE ANTICOAGULATION CLINIC 135 tablet 11/18/19 25 025 Discontin ued(Reord er) Active Problems Problem Noted Date Diagnosed Date roasterman current use of antiarrhythmic medical therapy 09/20/2024 Rheumatoid arthritis involvi ng multiple sites with positive rheumatoid factor 06/15/2024 Fracture of vertebra due to osteoporosis 025 Renal insufficiency 06/15/2024 Other fatigue 06/15/2024 History of left hip replacement 06/15/2024 History of bilateral knee replacement 06/15/2024 Generalized osteoarthrosis, involving multiple s ites 06/15/2024 Presence of cardiac pacemaker 02/17/2023 Paroxysmal 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 08/05/2022 Alveolar hypoventilation 06/07/2022 High risk medication use 05/08/2020 Sinus node dysfunction 11/30/2019 AV block, 1st degree 01/29/2018 Abnormal PFT 06/02/[address] scan, chest - po sterior basilar scarring 2014 CT chest 06/02/2017 Overview (06/02/2017): - posterior basilar scarring CT chest 2014, no evidence PE Allergic rhinitis 05/12/2016 DJD (degenerative joint disease) 04/30/2016 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 Patient on anticoagulation/recommended aspirin daily. 14-day rn cardiac rehab 06/29/2019: Average heart rate 74 bpm. PVCs [...] Problem Noted Date Diagnosed Date Resolved Date Chronic HFrEF (heart failure with reduced ejection fraction) 03/29/2024 02/21/2025 Acute systolic CHF (congestive heart failure) 06/10/19 [...] Encounters Date Type Department Care Team Description 03/17/2025 Anticoagulation Visit [facility] [address] [address] Karen Mace, Data Operations Director 03/14/2025 Anticoagulation Visit [facility] [address] [address] Claudia Bauer, PharmD 03/14/2025 Telephone [facility] [address] [address] Karen Mace, Data Operations Director 03/10/2025 Anticoagulation Visit [facility] [address] [address] Claudia Bauer, PharmD 03/07/2025 Refill [facility] [address] [facility] [address] [place] [address] Claudia Bauer, PharmD 03/07/2025 Refill [facility] [address] [facility] [address] [place] [address] Wojciech Flores MD Med Refill; CRAGER-MED REFILL 03/06/2025 Anticoagulation Visit [facility] [address] [facility] [address] [place] [address] Claudia Bauer PharmD 03/02/2025 Results Follow-Up [facility] [address] [place] [address] Dee Dee Ivan 02/28/2025 10:46 AM EDT - 02/28/2025 11:59 PM EDT Hospital Encounter [facility] [address] [place] [address] Ferny Gentile MD Other screening mammogram Discharge Disposition: Home or Self Care 02/28/2025 Travel 02/24/2025 Anticoagulation Visit [facility] [address] [facility] [address] [place] [address] Dayron Diallo, Data Operations Director 02/21/2025 10:45 AM EDT Office Visit [facility] [address] [facility] [address] [place] [address] Sorin Kearney PA-C 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); Paroxysmal 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; roasterman current use of antiarrhythmic medical therapy; PVC (premature ventricular contraction); Presence of cardiac pacemaker 02/21/2025 Travel 02/21/2025 Telephone [facility] [address] [facility] [address] [place] [address] Wojciech Flores MD Medical Clearance 02/21/2025 Telephone [facility] [address] [facility] [address] [place] [address] Karen Mace, Data Operations Director 02/17/2025 Anticoagulation Visit [facility] [address] [facility] [address] [place] [address] Karen Mace, Data Operations Director 02/13/2025 Refill [facility] [address] [facility] [address] [place] [address] Claudia Bauer, PharmD 02/10/2025 Telephone [facility] [address] [facility] [address] [place] [address] Dayron Diallo, Data Operations Director 02/08/2025 Anticoagulation Visit [facility] [address] [facility] [address] [place] [address] Claudia Bauer, PharmD 02/07/2025 Telephone [facility] [address] [facility] [address] [place] [address] Dayron Diallo, Data Operations Director 02/03/2025 Anticoagulation Visit [facility] [address] [facility] [address] [place] [address] Dayron Diallo, Data Operations Director 02/02/2025 Telephone [facility] [address] [address] David Bernstein MD 01/27/2025 Anticoagulation Visit [facility] [address] [facility] [address] [place] [address] Natasha Ruano [facility] 01/20/2025 Anticoagulation Visit [facility] [address] [facility] [address] [place] [address] Dayron Diallo, Data Operations Director 01/13/2025 Anticoagulation Visit [facility] [address] [facility] [address] [place] [address] Claudia Bauer, [place] 01/12/2025 11:30 AM EDT Office Visit [facility] [address] [place] [address] [place] [address] Wojciech Flores MD Chronic systolic congestive heart failure (Primary Dx); SSS (sick sinus syndrome); Paroxysmal 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; Mixed hyperlipidemia 01/12/2025 Travel 01/11/2025 Telephone [facility] [address] [facility] [address] [place] [address] Yue Pandey, AUTOMOTIVE SERVICE PROFESSIONAL Appointment 01/06/2025 Anticoagulation Visit [facility] [address] [facility] [address] [place] [address] Dayron Diallo, Data Operations Director 12/30/2024 Anticoagulation Visit [facility] [address] [facility] [address] [place] [address] Dayron Diallo, Data Operations Director 12/23/2024 Anticoagulation Visit [facility] [address] [facility] [address] [place] [address] Dayron Diallo, Data Operations Director from Last 3 Months Immunizations Immunization Administration Dates Next Due COVID-19 (PFIZER) Purple Cap Monovalent 06/11/19 21,05/09/2020 Fluzone High-Dose 65+yrs 01/29/2021 Influenza, Unspecified 02/01/2022,02/08/2018 Pneumococcal Polysaccharide (PPSV23) 2013 Family History Medical History Relation Name Comments [...] Pulse 70 02/21/2025 10:38 AM EDT Temperature 35.9 C (96.7 F) 10/28/2024 9:54 AM EDT Respiratory Rate 16 08/22/2022 1:15 PM EDT Oxygen Saturation 97% 02/21/2025 10:38 AM EDT Inhaled Oxygen Concentration - - Weight 82.6 kg (182 lb) 02/21/2025 10:38 AM EDT Height 162.6 cm (5' 4 ) 02/21/2025 10:38 AM EDT Body Mass Index 31.24 02/21/2025 10:38 AM EDT Plan of Treatment Upcoming Encounters Date Type Department Care Team (Late st Contact Info) Description 06/30/2025 11:30 AM EST Office Visit [facility] 330 [facility] [address] [place] [address] David Bernstein MD 330 [facility] [address] [place] [address] 10/03/2025 2:45 PM EDT Office Visit [facility] [address] [facility] [address] [place] [address] Yon Govea MD [address] [facility] [address] [place], [place] [address] 06/14/2026 1:30 PM EST Office Visit [facility] [address] [place] [address] [place] [address] Wojciech Flores MD [address] [facility] [address] [place], [place] [id number] Health Maintenance Due Date Last Done Comments [...] 75+ series) 2017 LIPID PANEL 08/21/2023 08/20/2022, 02/0 09/2022, 05/13/2022, Additional history exists INFLUENZA VACCINE 12/02/2024 02/19/2022, , 02/01/2022, Additional history exists COVID-19 Vaccine ( - 2024-2 6 season) 2025 03/13/2021, 06/11/2020, 06/11/2020, Additional history exists COLONOSCOPY 02/14/2032 02/13/2022, 02/01, 07/13/2017, Additional history exists COLORECTAL CANCER SCREENING 02/14/2032 MAMMOGRAM Discontinued 03/02/2025, 02/02, 02/26/2024, Additional history exists Medical Devices Implanted Type Area Half Backer Device Identifier Shelf Expiration Date Model / Serial / Lot Ld Pm Tendril Sts 6f52cm [id number] - [id number] - [id number] Implanted:Qty: 1 on 12/14/2019 by Barry Hennessy MD at [facility] Lead [employer] 10/01/2022 [id number] / [id number] / [id number] Ld Pm Tendril Sts 6f46cm [id number] - [id number] - [id number] Implanted:Qty: 1 on 12/14/2019 by Barry Hennessy MD at [facility] Lead [employer] 10/01/[id number] / [id number] / [id number] Gen Pm Assurity Mri Dr Garcia [id number] - [id number] - [id number] Implanted:Qty: 1 on 12/14/2019 by Barry Hennessy MD at [facility] Pacemaker [employer] 05/03/2021 [id number] / [id number] / [id number] Procedures Procedure Name Priority Date/Time Associated Diagnosis Comments PROTIME-INR Routine 03/17/2025 PROTIME-INR Routine 03/14/2025 PROTIME-INR Routine 03/10/2025 PROTIME-INR Routine 03/06/2025 MAMMO SCREENING MODIFIED WITH TOMOSYNTHESIS RIGHT W CAD Routine 02/28/2025 11:06 AM EDT Other screening mammogram PROTIME-INR Routine 02/24/2025 AMBRY GENETIC ASSESSMENT Routine 02/23/2025 9:50 AM EDT ECG 12-LEAD Routine 02/21/2025 longterm current use of antiarrhythmic medical therapy PROTIME-INR Routine 02/17/2025 PROTIME-INR Routine 02/08/2025 PROTIME-INR Routine 02/03/2025 SEDIMENTATION RATE Routine 02/01/2025 8: 22 AM EDT Rheumatoid arthritis involving multiple sites with positive rheumatoid factor High risk medication use CBC WITH AUTO DIFFERENTIAL Routine 02/01/2025 8:22 AM EDT Rheumatoid arthritis involving multiple sites with positive rheumatoid factor High risk medication use C-REACTIVE PROTEIN Routine 02/01/2025 8: 22 AM EDT Rheumatoid arthritis involving multiple sites with positive rheumatoid factor High risk medication use COMPREHENSIVE METABOLIC PANEL Routine 02/01/2025 Rheumatoid arthritis involving multiple sites with positive rheumatoid factor High risk medication use PROTIME-INR Routine 01/27/2025 PROTIME-INR Routine 01/20/2025 REMOTE DEVICE CHECK 01/16/2025 2 :00 AM EDT PROTIME-INR Routine 01/13/2025 PROTIME-INR Routine 01/06/2025 PROTIME-INR Routine 12/30/2024 PROTIME-INR Routine 12/23/2024 LIPID PANEL Routine 06/08/2022 10:16 AM EST from Last 3 Months or Most Recently Relevant to Health Maintenance Results * Protime-INR (03/17/2025) Only the most recent of14 resultswithin the time period is included. INR 2.20 Blood 03/17/2025 us Historical Provider MD LAB BLOOD ORDERABLES Agata l Result * Mammo Screening Modified With Tomosynthesis [...] MD IMG MAMMOGRAPHY ORDERABLES Fin al Result * (ABNORMAL) [facility] GENETIC RISK ASSESSMENT QUESTIONNAIRE - , (02/23/2025 9:50 AM EDT) NCCN NCCN met(A) [facility] Comment:High Risk Cancer Ris k Assessment 02/23/2025 9:50 AM EDT Cas Davey MD GENETIC TESTING Final Result [facility]
[address] [place] [address], [place] [phone] * ECG 12-LEAD (02/21/2025) Narrative 02/21/2025 Sorin [...] were not included. Cardiac Electrophysiology Outpatient Note [facility] Office Visit Luz Skaggs [id number] 09/20/2024 Primary Care Physician: Ferny Gentile MD [...] 92-implant in place S/p lumbar fusion 2017 [facility]. History of Present Illness: Luz [...] rhinitis Arrhythmia PVC'S Holter Jan 2015-=9% PVC [place] Arthritis Atrial fibrillation PAF per event recorder [...] drops by mouth Daily., Disp: , Rfl: axkndi-lcqqjvwej-jigfhnjxf sulfates (SUPREP) 17.5-3.13-1.6 GM/177MLsolution oral solution, DILUTE; [...] Echo Complete W/ Cont if Necessary Per Uootfmwx30/27/2025 5:06 PM Interpretation Summary Left ventricular systolic [...] questions orconcerns. Sorin Kearney PA-C Cardiac Electrophysiology [facility] us Sorin Kearney PA-C ECG ORDERABLES Final Result * CBC Auto Differential (02/01/2025 8:22 AM EDT) Blood us David Bernstein MD LAB BLOOD ORDERABLES Final Result Performing Organization Address [facility] de Phone Number [facility] (AMBULATORY) [address] [place] [address], [place] [phone] * Sedimentation Rate (02/01/2025 8:22 AM EDT) Blood us David Bernstein MD LAB BLOOD ORDERABLES Final Result Performing Organization Address [facility] de Phone Number [facility] (AMBULATORY) [address] [place] [address], [place] [phone] * C-reactive Protein (02/01/2025 8:22 AM EDT) Blood us David Bernstein MD LAB BLOOD ORDERABLES Final Result Performing Organization Address [facility] de Phone Number [facility] (AMBULATORY) [address] [place] [address], [place] [phone] * Comprehensive Metabolic Panel (02/01/2025) Blood us David Bernstein MD LAB BLOOD ORDERABLES Final Result Performing Organization Address [facility] de Phone Number [facility] (AMBULATORY) [address] [place] [address], [place] [phone] * Remote Device Check (01/16/2025 2:00 AM EDT) Date Time Interrogation Session [id number] [facility] Type Interrogation Session Remote Scheduled [facility] Implantable Pulse Generator Half Backer [employer] [facility] Implantable Pulse Generator Type IPG [facility] Implantable Pulse Generator Model 2272 Assurity MRI(TM) [facility] Implantable Pulse Generator Serial Number [id number] [facility] Implantable Pulse Generator Implant Date [id number] [facility] Battery Remaining Percentage 54.00 % [facility] Battery Remaining Longevity 67.0 mo [facility] Battery Voltage 2.990 [facility] Battery STRAIGHTENING PRESS OPERATOR Trigger 2.600 [facility] Battery Status Middle of Service [facility] Will Statistic RA Percent Paced 29.00 [facility] Atrial Tachy Statistic AT/AF [place] Percent 2.00 [facility] Lead Channel RA Sensing Intrinsic Amplitude 3.600 [facility] Lead Channel Setting RA Sensing Sensitivity 0.50 [facility] Lead Channel RA Impedance Value 480 [facility] Lead Channel Setting RA Pacing Amplitude 2.000 [facility] Lead Channel Setting RA Pacing Pulse Width 0.5 [facility] Will Setting Mode (NBG Code) AAIR [facility] Will Setting Lower Rate Limit 70 [facility] Will Setting AT Mode Switch Rate 160 [facility] Will Setting Maximum Sensor Rate 105 [facility] Lead Channel Setting RA Sensing Polarity Bipolar [facility] Lead Channel Setting RV Sensing Polarity Bipolar [facility] Lead Channel Setting RA Pacing Polarity Bipolar [facility] Lead Channel Setting RV Pacing Polarity Bipolar [facility] Lead Channel RA Pacing Threshold Polarity Bipolar [facility] 01/16/2025 2:00 AM EDT us Yon Govea MD CV IMPLANTABLE CARDIAC DEVICE Fi nal Result [facility] * (ABNORMAL) Lipid Panel (06/08/2022 10:16 AM EST) Total Cholesterol 101 0 - 200 mg/dL 06/08/2022 10:49 AM EST [facility] Triglycerides 113 0 - 150 mg/dL 06/08/2022 10:49 AM EST [facility] HDL Cholesterol 37(L) 40 - 60 mg/dL 06/08/2022 10:49 AM EST [facility] LDL Cholesterol 43 0 - 100 mg/dL 06/08/2022 10:49 AM EST [facility] VLDL Cholesterol 21 5 - 40 mg/dL 06/08/2022 10:49 AM EST [facility] LDL/HDL Ratio 1.12 06/08/2022 10:49 AM EST [facility] Blood Venipuncture / Unknown 06/08/2022 10:16 AM EST 06/08/2022 10:22 AM EST Narrative [facility] - 06/08/2022 10:49 AM EST Cholesterol [...] MD LAB BLOOD ORDERABLES Final Resul t [facility]
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
--- OUTSIDE RECORDS SUMMARY | 2025-03-24 10:10 | XMS_ITS | Clinical Summary ---
Author Organization [facility] , [facility] Address [address] [place] [address] Phone Care Team Providers Care Practicing Md Anesthesiologist Name Role Phone JOSHUA LESLIE MDGHTheo Blanco Primary Care Provider [phone] Camila MORALEZ, Alanna Bowen Unavailable [phone] Reason for Visit and Chief Complaint The Chief Complaint is: R wrist pain Problems Includes: Problems addressed during this encounter and other active Problems All Visits Onset Date Resolved Date Provider Condition S tatus Joint Pain Wrist Right 04/17/2022 Ceci Santos APRN Active Last Documented On 2 1:05PM ; [facility] Joint Pain Right Thumb 04/17/2022 Ceci griffin APRN Active Last Documented On 2 1:05PM ; [facility] Midback Pain 10/17/2020 Brandon Wilks MD Acti ve Last Documented On 1 2:32PM ; [facility] Joint Pain Left Knee 02/16/2020 Eliseo Cuevas MD Active Last Documented On 0 1:26PM ; [facility] Joint Pain Right Knee 10/29/2016 Alanna castaneda MD Active Last Documented On 7 10:32AM ; [facility] Pain in Lumbar Spine 03/13/2016 Alanna krause MD Active Last Documented On 6 1:07PM ; [facility] Joint Pain Hip Left 03/13/2016 Alanna chin MD Active Last Documented On 6 1:09PM ; [facility] Joint Pain Knee 03/10/2012 Alanna Pereira Active Last Documented On 2 10:37AM ; [facility] Plan of Treatment - Patient screened for future fall risk: documentation of any fall with injury in past year - Last Documented On 04/14/2024 4:23PM ; [facility] Fall Risk Assessment: This patient has [...] Documented On 04/14/2024 4:23PM ; [facility] Pending Tests Order Diagnosis Results Due Ordering P rovider Therapy - Occupational Therapy Wrist 04/14 Jet Reeves MD Last Documented On 4 12:05PM ; [facility] Instructions to patient Lose weight Last Documented On 4 12:12PM ; [facility] Assessments Includes: Assessments from this encounter [...] On 4 11:25AM By Carla Hall ; [facility], [facility] Protonix 20 MG Oral Tablet Delayed Release 06/16/2022 Provider: Diagnosis: Last Documented On 3 4:00PM By Elif Chicas ; [facility] Flecainide Acetate 100 MG Oral Tablet 06/16/2022 Pro vider: Diagnosis: Last Documented On 3 4:01PM By Elif Chicas ; [facility] Metoprolol Succinate ER 25 M G Oral Tablet Extended Release 24 Hour 06/12/2022 Provider: Diagnosis: Last Documented On 3 4:00PM By Elif Chicas ; [facility], [facility] predniSONE 10 MG Oral Tablet 05/02/2022 Provider: FATOUMATA LESLIE MD Diagnosis: Last Documented On 3 4:00PM By Elif Chicas ; [facility], [facility] Lagevrio 200 MG Oral Capsule 04/22/2022 Provider: FATOUMATA LESLIE MD Diagnosis: Last Documented On 3 4:00PM By Elif Chicas ; [facility], [facility] Lagevrio 200 MG Oral Capsule 04/22/2022 Provider: FATOUMATA LESLIE MD Diagnosis: Last Documented On 3 4:00PM By Elif Chicas ; [facility], [facility] Mupirocin 2% External Ointment 04/16/2022 Provider: Eliseo Cuevas MD Diagnosis: three times a day Apply to n ostrils 3 time a day 5 days prior to surgery. Last Documented On 2 2:50PM By Gilda Kamara ; [facility], [facility] MegaRed Stem-3 Krill Oil 350 MG Oral Capsule 10/26/19 21 Provider: Diagnosis: Last Documented On 1 1:15PM By Beztaida Donald ; [facility], [facility] Sudafed 30 MG Oral Tablet 10/25/2020 Provider: Diagnosis: Last Documented On 1 1:15PM By Betzaida Donald ; [facility], [facility] Mucinex Allergy 180 MG Oral Tablet 10/25/2020 Provid er: Diagnosis: Last Documented On 1 1:14PM By Betzaida Donald ; [facility], [facility] Warfarin Sodium 7.5 MG Oral Tablet 10/17/2020 Provid er: Diagnosis: Last Documented On 1 2:43PM By Greer Kingston ; [facility], [facility] Ezetimibe 10 MG Oral Tablet 09/11/2020 Provider: FATOUMATA LESLIE MD Diagnosis: Last Documented On 1 1:13PM By Betzaida Donald ; [facility], [facility] Digoxin 125 MCG Oral Tablet 07/21/2020 Provider: Diagnosis: Last Documented On 1 2:44PM By Greer Kingston ; [facility], [facility] CoQ-10 10 MG Oral Capsule 10/20/2019 Provider: Diagnosis: Last Documented On 0 4:01PM By Greer Kingston ; [facility], [facility] D3-1000 25 MCG (1000 UT) Oral Capsule 10/20/2019 Pro vider: Diagnosis: Last Documented On 0 4:00PM By Greer Kingston ; [facility], [facility] Omeprazole 20 MG Oral Ta blet Delayed Release Disintegrating 10/20/2019 Provider: Diagnosis: Last Documented On 0 3:59PM By Greer Kingston ; [facility], [facility] Probiotic Maximum Strength Oral Capsule 10/20/2019 Provider: Diagnosis: Last Documented On 0 3:58PM By Greer Kingston ; [facility], [facility] Citalopram Hydrobromide 10 MG Oral Tablet 10/20/2019 Provider: Diagnosis: Last Documented On 0 3:56PM By Greer Kingston ; [facility], [facility] Flecainide Acetate 100 MG Oral Tablet 10/20/2019 Pro vider: Diagnosis: Last Documented On 0 3:55PM By Greer Kingston ; [facility], [facility] Past Medications on file oxyCODONE HCl 5 MG Oral Tablet 05/29/2022 - 06/03/2022 Provider: Eliseo ceja MD Diagnosis: 1-2 po q 4-6h Last Documented On 3 12:32PM By Hima Cuevas ; [facility] traMADol HCl 50 MG Oral Tablet 05/29/2022 - 06/03/2022 Provider: Eliseo ceja MD Diagnosis: 1-2 po q 4-6h Last Documented On 3 12:32PM By Hima Cuevas ; [facility] Lovenox 40 MG/0.4ML Injection Solution Prefilled Syringe 05/26/2022 - 05/30/2022 Provider: Eliseo ceja MD Diagnosis: 1 sub q injection 1 time day Last Documented On 3 8:35AM By Hima Cuevas ; [facility] Cefadroxil 500 MG Oral Capsule 05/21/2022 - 05/24/2022 Provider: Eliseo ceja MD Diagnosis: twice a day Last Documented On 3 12:08PM By Hima Cuevas ; [facility] Colace 100 MG Oral Capsule 05/21/2022 - 08/19/2022 Provider: Eliseo ceja MD Diagnosis: 1-2 tabs daily Last Documented On 3 12:08PM By Hima Cuevas ; [facility] traMADol HCl 50 MG Oral Tablet 05/21/2022 - 05/26/2022 Provider: Eliseo ceja MD Diagnosis: 1-2 po q 4-6h Last Documented On 3 12:08PM By Hima Cuevas ; [facility] Acetaminophen 500 MG Oral Tablet 05/21/2022 - 06/20/2022 Provider: Eliseo Cuevas MD Diagnosis: 2 three times a day Last Documented On 3 12:08PM By Hima Cuevas ; [facility] oxyCODONE HCl 5 MG Oral Tablet 05/21/2022 - 05/26/2022 Provider: Eliseo ceja MD Diagnosis: 1-2 po q 4-6h Last Documented On 3 12:08PM By Hima Cuevas ; [facility] Ondansetron HCl 4 MG Oral Tablet 05/21/2022 - 05/26/2022 Provider: Eliseo Cuevas MD Diagnosis: [id number] Last Documented On 3 12:08PM By Hima Cuevas ; [facility] Meloxicam 15 MG Oral Tablet 05/21/2022 - 06/20/2022 Provider: Eliseo ceja MD Diagnosis: once a day Last Documented On 3 12:08PM By Hima Cuevas ; [facility] HYDROcodone-Acetaminophen 7. 5-325 MG Oral Tablet 10/25/2020 - 11/14/2020 Provider: Brandon Wilks MD Diagnosis: twice a day Last Documented On 1 12:08PM By Dr. Wilks ; [facility] Jackson 5-325MG Oral Tablet 12/23/2018 - 01/22/2019 Provider: Eliseo ceja MD Diagnosis: 1-2 po q6h prn pain Last Documented On 9 3:09PM By Reanna Gutierrez ; [facility] Acetaminophen 500MG Oral Tablet 12/08/2018 - 01/07/2019 Provider: Eliseo Cuevas MD Diagnosis: 2 three times a day FOR BACON RGERY DO NOT FILL UNTIL 12/14/18 Last Documented On 9 4:10PM By Reanna Gutierrez ; [facility] traMADol HCl 50MG Oral Tablet 12/08/2018 - 12/13/2018 Provider: Eliseo ceja MD Diagnosis: 1-2 po q6h prn pain FOR BACON RGERY DO NOT FILL UNTIL 12/14/18 Last Documented On 9 4:06PM By Reanna Gutierrez ; [facility] Neurontin 300MG Oral Capsule 12/08/2018 - 03/08/2019 Provider: Eliseo ceja MD Diagnosis: 1 every bedtime FOR SURGER Y DO NOT FILL UNTIL 12/14/18 Last Documented On 9 4:05PM By Reanna Gutierrez ; [facility] Dilaudid 2MG Oral Tablet 12/08/2018 - 12/10/2018 Provi gaby: Eliseo Cuevas MD Diagnosis: 1-2 po q6h prn pain (RESCUE PAIN) FOR SURGERY DO NOT FILL UNTIL 12/14/18 Last Documented On 9 4:05PM By Reanna Gutierrez ; [facility] Colace 100MG [...] By Gilda Kamara ; [facility] Jackson 5-325MG Oral Tablet 12/24/2017 - 12/31/2017 Prov ider: Brandon Wilks MD Diagnosis: 1-2 po q 4-6h PRN Last Documented On 8 5:31PM By Dr. Wilks ; [facility] Jackson 7.5-325 MG OR TABS 12/24/2017 - 01/03/2018 Provi gaby: Brandon Wilks MD Diagnosis: Last Documented On 8 11:35AM By Marcelle Croft ; [facility] Voltaren Gel 1% External 10/14/2017 - 12/13/2017 Provi gaby: Alanna Jensen MD Diagnosis: use as directed Last Documented On 8 10:09AM By Sayra Evans ; [facility] Lovenox 40MG/0.4ML Subcutaneous Solution 05/06/2017 - 05/26/2017 Provider: Alanna castaneda MD Diagnosis: use as directed/1 INJECTION PER DAY FOR 5 DAYS PRIOR TO PROCEDER & 1 INJECTION PER DAY FOR 5 DAYS AFTER PROCERDER/ Last Documented On 8 4:29PM By Sayra Evans ; [facility] Jackson 5-325 MG Tablet 10/29/2016 - 11/05/2016 Provider : Alanna Jensen MD Diagnosis: 1-2 po q 4-6h PRN Last Documented On 7 11:55AM By Camryn Paez ; [facility] Medrol 4 MG Tablet Therapy Pack 02/14/2016 - 02/20/2016 Provider: Alanna chin MD Diagnosis: use as directed by pharmacy Last Documented On 6 3:16PM By Heather Langley ; [facility] Jackson 5-325 MG Tablet 12/03/2015 - 12/18/2015 Provider : Alanna Jensen MD Diagnosis: 1-2 po q 4-6h Last Documented On 6 1:26PM By Heather Langley ; [facility] Jackson 7.5-325 MG Tablet 11/16/2015 - 12/16/2015 Provid er: Alanna Jensen MD Diagnosis: 1 every 4 - 6 hours PO PRN Last Documented On 6 2:09PM By Lani Marquez ; [facility] Voltaren 1% TD GEL 01/31/2013 - 03/02/2013 Provider: Alanna Jensen MD Diagnosis: DEGENERATIVE MIKEY NT DISEASE KNEE apply 4 grams to affected ar ea 4 times a day//ks Last Documented On 3 2:16PM By Ann Marie Sutherland ; [facility] Lortab 10-500 MG OR TABS 09/14/2012 - 09/21/2012 Provi gaby: Alanna Jensen MD Diagnosis: [id number] [place] jsb/df Last Documented On 3 8:56AM By Jose F Gutierrez ; [facility] Lortab 10-500 MG OR TABS 08/06/2012 - 08/13/2012 Provi gaby: Alanna Jensen MD Diagnosis: [phone] [employer] jsb/df Last Documented On 3 1:59PM By Jose F Gutierrez ; [facility] Lortab 10-500 MG OR TABS 07/09/2012 - 07/16/2012 Provi gaby: Alanna Jensen MD Diagnosis: [id number] [employer] jsb Last Documented On 3 12:36PM By Jose F Gutierrez ; [facility] Lortab 10-500 MG OR TABS 07/01/2012 - 07/08/2012 Provi gaby: Alanna Jensen MD Diagnosis: [id number] [employer] df Last Documented On 3 1:53PM By Jose F Gutierrez ; [facility] Xarelto 10 MG OR TABS 06/14/2012 - 07/05/2012 Provider : Alanna Jensen MD Diagnosis: sx on 06-15-12kw Last Documented On 3 1:31PM By Danielle Dobson ; [facility] Lortab 10-500 MG OR TABS 06/14/2012 - 06/21/2012 Provi gaby: Alanna Jensen MD Diagnosis: sx on 06-15-12kw Last Documented On 3 1:31PM By Danielle Dobson ; [facility] Medications Administered Includes: Administered Medications from this encounter No Administered Medications Recorded Vital Signs Includes: Vital Signs from this encounter Vital Name 04/14/2024 12:09P Height (in) 65 Weight (lb) 172 Body Mass Index 28.6 Body Surface Area 1.9 Note: sr Last Documented: On 04/14/2024 12:11P M ; [facility] Results Includes: Results discussed during this [...] Documented On 4 4:23PM ; [facility] Not a current smoker. 04/14/2024 Last Documented On 4 4:23PM ; [facility] Tobacco non-user 04/14/2024 Last Documented On 4 4:23PM ; [facility] Smoking Status Unknown Procedures and Surgical History Includes: Procedures from this encounter Procedures Code Diagnosis Performing Provider Service L ocation Service Date use of tobacco assessment performed 1000F Last Documented On 4 12:12PM ; [facility] patient screened for future fall risk: documentation of any fall with injury in past year 1100F Last Documented On 4 12:12PM ; [facility] an X-ray was performed 34193 Last Documented On 4 12:12PM ; [facility] Medical History Includes: Medical History addressed during this encounter Description Last Updated Recent immunization for flu 02/01/2022 1 06/15/2023 Last Documented On 4 4:23PM ; [facility] Recent immunization for pneumococcal pne [place] 201304/14/2024 Last Documented On 4 4:23PM ; [facility] Family History Includes: Family History [...] ctive Last Documented On 4 12:09PM ; [facility] Statins Support Allergy 06/09/2017 Act citlalli Last Documented On 4 12:09PM ; [facility], [facility] Percocet Allergy 03/10/2012 Active Last Documented On 4 12:09PM ; [facility], [facility] Bactrim Allergy 11/16/2015 Active Last Documented On 4 12:09PM ; [facility], [facility] Encounters Encounter Provider Location Date Check-In Time Check-Out Time Diagnosis Follow Up Ceci Santos APRN [facility] 4 11:15AM 12:07PM Overweight Insurance Includes: Active Insurance Policies Plan Name Member ID Group # Subscriber Relationship Effect citlalli Dates 1 - Medicare Part B of [place] [id number] Luz Skaggs Self 04/03/2007 - Unknown 2 - [facility] [id number] PLAN F Luz Skaggs Self 2011 - Unknown Clinical Notes Includes: Clinical Notes from this encounter * Progress note Date Encounter Last Documented by 04/14/2024 Follow Up Last documented on 04/14/2024; 4:23 PM, Ceci Santos APRN; [facility] Active Problems & Conditions - [...] Capsule 5 days, 0 refills - MegaRed Stem-3 Krill Oil 350 MG Oral Capsule once [...] refills - Sudafed 30 MG Oral Tablet [id number] 0 days, 0 refills - Warfarin Sodium [...] Care Team - FATOUMATA LESLIE MD - ACCOUNT INSTALLER Health Reminders - Assess BMI satisfied 04/14/2024. - Assess Tobacco Use satisfied 04/14/2024.
--- OUTSIDE RECORDS SUMMARY | 2025-03-24 10:10 | XMS_ITS | Clinical Summary ---
Author Organization [facility] Address [address] [place] [address] Phone Care Team Providers Care Water Treatment Technician Name Role Phone MARIAMA MORALEZ, FATOUMATA Blanco Primary Care Provider [phone] Camila MORALEZ, Alanna Bowen Unavailable [phone] Reason for Visit and Chief Complaint Follow Up Problems Includes: Problems addressed during this encounter and other active Problems All Visits Onset Date Resolved Date Provider Condition S tatus Joint Pain Wrist Right 04/17/2022 Ceci Santos APRN Active Last Documented On 2 1:05PM ; [facility] Joint Pain Right Thumb 04/17/2022 Ceci griffin APRN Active Last Documented On 2 1:05PM ; [facility] Midback Pain 10/17/2020 Brandon Wilks MD Acti ve Last Documented On 1 2:32PM ; [facility] Joint Pain Left Knee 02/16/2020 Eliseo Cuevas MD Active Last Documented On 0 1:26PM ; [facility] Joint Pain Right Knee 10/29/2016 Alanna castaneda MD Active Last Documented On 7 10:32AM ; [facility] Pain in Lumbar Spine 03/13/2016 Alanna krause MD Active Last Documented On 6 1:07PM ; [facility] Joint Pain Hip Left 03/13/2016 Alanna chin MD Active Last Documented On 6 1:09PM ; [facility] Joint Pain Knee 03/10/2012 Alanna Jessi Pereira Active Last Documented On 2 10:37AM ; [facility] Plan of Treatment 1. Patient's diagnoses [...] - Last Documented On 03/10/2024 4:11PM ; [facility] Assessments Includes: Assessments from this encounter Findings 1. Ulnar sided right wrist pain - Last Documented On 03/10/2024 4:11PM ; [facility] 2. 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 - Last Documented On 03/10/2024 4:11PM ; [facility] Medical Equipment - Implanted Devices Includes: Current Devices No Medical Equipment Recorded Medications Includes: Medications discussed during this encounter and other current Medications Discontinued / Stopped on this date on 10/20/2019 Osteo Bi-Flex Joint Shield Oral Tablet Pr ovider: Diagnosis: Last Documented On 4 11:28AM By Clint Rocha ; [facility] Myrbetriq 25 MG Oral Tablet Extended Release 24 Hour Provider: Diagnosis: Last Documented On 4 11:28AM By Clint Rocha ; [facility] MiraLax Oral Powder Provider: Diagnosis: Last Documented On 4 11:28AM By Clint Rocha ; [facility] EQ Restore Plus Lubricant Eye 0.5% Ophthalmic Solution Provider: Diagnosis: Last Documented On 4 11:35AM By Clint Rocha ; [facility] Ipratropium [place] 0.03% Nasal Solution Provider: Diagnosis: Last Documented On 4 11:28AM By Clint Rocha ; [facility] Calcium-Magnesium 100-50 MG Oral Tablet P rovider: Diagnosis: Last Documented On 4 11:28AM By Clint Rocha ; [facility] Current Medications (continue as prescribed) Colestipol HCl 5 GM Oral Packet 04/14/2024 Provider: Diagnosis: Last Documented On 4 11:25AM By Carla Hall ; [facility] Protonix 20 MG Oral Tablet Delayed Release 06/16/2022 Provider: Diagnosis: Last Documented On 3 4:00PM By Elif Chicas ; [facility] Flecainide Acetate 100 MG Oral Tablet 06/16/2022 Pro vider: Diagnosis: Last Documented On 3 4:01PM By Elif Chicas ; [facility] Metoprolol Succinate ER 25 M G Oral Tablet Extended Release 24 Hour 06/12/2022 Provider: Diagnosis: Last Documented On 3 4:00PM By Elif Chicas ; [facility] predniSONE 10 MG Oral Tablet 05/02/2022 Provider: FATOUMATA LESLIE MD Diagnosis: Last Documented On 3 4:00PM By Elif Chicas ; [facility] Lagevrio 200 MG Oral Capsule 04/22/2022 Provider: FATOUMATA LESLIE MD Diagnosis: Last Documented On 3 4:00PM By Elif Chicas ; [facility] Lagevrio 200 MG Oral Capsule 04/22/2022 Provider: FATOUMATA LESLIE MD Diagnosis: Last Documented On 3 4:00PM By Elif Chicas ; [facility] Mupirocin 2% External Ointment 04/16/2022 Provider: Eliseo Cuevas MD Diagnosis: three times a day Apply to n ostrils 3 time a day 5 days prior to surgery. Last Documented On 2 2:50PM By Gilda Kamara ; [facility] MegaRed [place]-3 Krill Oil 350 MG Oral Capsule 10/26/19 21 Provider: Diagnosis: Last Documented On 1 1:15PM By Betzaida Donald ; [facility] Sudafed 30 MG Oral Tablet 10/25/2020 Provider: Diagnosis: Last Documented On 1 1:15PM By Betzaida Donald ; [facility] Mucinex Allergy 180 MG Oral Tablet 10/25/2020 Provid er: Diagnosis: Last Documented On 1 1:14PM By Betzaida Donald ; [facility] Warfarin Sodium 7.5 MG Oral Tablet 10/17/2020 Provid er: Diagnosis: Last Documented On 1 2:43PM By Greer Kingston ; [facility] Ezetimibe 10 MG Oral Tablet 09/11/2020 Provider: FATOUMATA LESLIE MD Diagnosis: Last Documented On 1 1:13PM By Betzaida Donald ; [facility] Digoxin 125 MCG Oral Tablet 07/21/2020 Provider: Diagnosis: Last Documented On 1 2:44PM By Greer Kingston ; [facility] CoQ-10 10 MG Oral Capsule 10/20/2019 Provider: Diagnosis: Last Documented On 0 4:01PM By Greer Kingston ; [facility] D3-1000 25 MCG (1000 UT) Oral Capsule 10/20/2019 Pro vider: Diagnosis: Last Documented On 0 4:00PM By Greer Kingston ; [facility] Omeprazole 20 MG Oral Ta blet Delayed Release Disintegrating 10/20/2019 Provider: Diagnosis: Last Documented On 0 3:59PM By Greer Kingston ; [facility] Probiotic Maximum Strength Oral Capsule 10/20/2019 Provider: Diagnosis: Last Documented On 0 3:58PM By Greer Kingston ; [facility] Citalopram Hydrobromide 10 MG Oral Tablet 10/20/2019 Provider: Diagnosis: Last Documented On 0 3:56PM By Greer Kingston ; [facility] Flecainide Acetate 100 MG Oral Tablet 10/20/2019 Pro vider: Diagnosis: Last Documented On 0 3:55PM By Greer Kingston ; [facility] Past Medications on file oxyCODONE HCl 5 MG Oral Tablet 05/29/2022 - 06/03/2022 Provider: Eliseo ceja MD Diagnosis: 1-2 po q 4-6h Last Documented On 3 12:32PM By Hima Cuevas ; [facility] traMADol HCl 50 MG Oral Tablet 05/29/2022 - 06/03/2022 Provider: Eliseo ceja MD Diagnosis: 1-2 po q 4-6h Last Documented On 3 12:32PM By Hima Cuevas ; [facility] Lovenox 40 MG/0.4ML Injection Solution Prefilled Syringe 05/26/2022 - 05/30/2022 Provider: Eliseo ceja MD Diagnosis: 1 sub q injection 1 time day Last Documented On 3 8:35AM By Hima Cuevas ; [facility] Cefadroxil 500 MG Oral Capsule 05/21/2022 - 05/24/2022 Provider: Eliseo ceja MD Diagnosis: twice a day Last Documented On 3 12:08PM By Hima Cuevas ; [facility] Colace 100 MG Oral Capsule 05/21/2022 - 08/19/2022 Provider: Eliseo ceja MD Diagnosis: 1-2 tabs daily Last Documented On 3 12:08PM By Hima Cuevas ; [facility] traMADol HCl 50 MG Oral Tablet 05/21/2022 - 05/26/2022 Provider: Eliseo ceja MD Diagnosis: 1-2 po q 4-6h Last Documented On 3 12:08PM By Hima Cuevas ; [facility] Acetaminophen 500 MG Oral Tablet 05/21/2022 - 06/20/2022 Provider: Eliseo Cuevas MD Diagnosis: 2 three times a day Last Documented On 3 12:08PM By Hima Cuevas ; [facility] oxyCODONE HCl 5 MG Oral Tablet 05/21/2022 - 05/26/2022 Provider: Eliseo ceja MD Diagnosis: 1-2 po q 4-6h Last Documented On 3 12:08PM By Hima Cuevas ; [facility] Ondansetron HCl 4 MG Oral Tablet 05/21/2022 - 05/26/2022 Provider: Eliseo Cuevas MD Diagnosis: [id number] Last Documented On 3 12:08PM By Hima Cuevas ; [facility] Meloxicam 15 MG Oral Tablet 05/21/2022 - 06/20/2022 Provider: Eliseo ceja MD Diagnosis: once a day Last Documented On 3 12:08PM By Hima Cuevas ; [facility] HYDROcodone-Acetaminophen 7. 5-325 MG Oral Tablet 10/25/2020 - 11/14/2020 Provider: Brandon Wilks MD Diagnosis: twice a day Last Documented On 1 12:08PM By Dr. Wilks ; [facility] Royal 5-325MG Oral Tablet 12/23/2018 - 01/22/2019 Provider: Eliseo ceja MD Diagnosis: 1-2 po q6h prn pain Last Documented On 9 3:09PM By Reanna Gutierrez ; [facility] Acetaminophen 500MG Oral Tablet 12/08/2018 - 01/07/2019 Provider: Eliseo Cuevas MD Diagnosis: 2 three times a day FOR BACON RGERY DO NOT FILL UNTIL 12/14/18 Last Documented On 9 4:10PM By Reanna Gutierrez ; [facility] traMADol HCl 50MG Oral Tablet 12/08/2018 - 12/13/2018 Provider: Eliseo ceja MD Diagnosis: 1-2 po q6h prn pain FOR BACON RGERY DO NOT FILL UNTIL 12/14/18 Last Documented On 9 4:06PM By Reanna Gutierrez ; [facility] Neurontin 300MG Oral Capsule 12/08/2018 - 03/08/2019 Provider: Eliseo ceja MD Diagnosis: 1 every bedtime FOR SURGER Y DO NOT FILL UNTIL 12/14/18 Last Documented On 9 4:05PM By Reanna Gutierrez ; [facility] Dilaudid 2MG Oral Tablet 12/08/2018 - 12/10/2018 Provi gaby: Eliseo Cuevas MD Diagnosis: 1-2 po q6h prn pain (RESCUE PAIN) FOR SURGERY DO NOT FILL UNTIL 12/14/18 Last Documented On 9 4:05PM By Reanna Gutierrez ; [facility] Colace 100MG Oral Capsule 12/08/2018 - 03/08/2019 Provider: Eliseo ceja MD Diagnosis: 1-2 tabs daily FOR SURGERY DO NOT FILL UNTIL 12/14/18 Last Documented On 9 4:10PM By Reanna Gutierrez ; [facility] Mupirocin 2% External Ointment 11/09/2018 - 11/14/2018 Provider: Eliseo ceja MD Diagnosis: Apply to nostrils 3 time a d ay 5 days prior to surgery. Last Documented On 9 10:40AM By Gilda Kamara ; [facility] Royal 5-325MG Oral Tablet 12/24/2017 - 12/31/2017 Prov ider: Brandon Wilks MD Diagnosis: 1-2 po q 4-6h PRN Last Documented On 8 5:31PM By Dr. Wilks ; [facility] Royal 7.5-325 MG OR TABS 12/24/2017 - 01/03/2018 Provi gaby: Brandon Wilks MD Diagnosis: Last Documented On 8 11:35AM By Marcelle Croft ; [facility] Voltaren Gel 1% External 10/14/2017 - 12/13/2017 Provi gaby: Alanna Jensen MD Diagnosis: use as directed Last Documented On 8 10:09AM By Sayra Evans ; [facility] Lovenox 40MG/0.4ML Subcutaneous Solution 05/06/2017 - 05/26/2017 Provider: Alanna castaneda MD Diagnosis: use as directed/1 INJECTION PER DAY FOR 5 DAYS PRIOR TO PROCEDER & 1 INJECTION PER DAY FOR 5 DAYS AFTER PROCERDER/ Last Documented On 8 4:29PM By Sayra Evans ; [facility] Royal 5-325 MG Tablet 10/29/2016 - 11/05/2016 Provider : Alanna Jensen MD Diagnosis: 1-2 po q 4-6h PRN Last Documented On 7 11:55AM By Camryn Paez ; [facility] Medrol 4 MG Tablet Therapy Pack 02/14/2016 - 02/20/2016 Provider: Alanna chin MD Diagnosis: use as directed by pharmacy Last Documented On 6 3:16PM By Heather Langley ; [facility] Royal 5-325 MG Tablet 12/03/2015 - 12/18/2015 Provider : Alanna Jensen MD Diagnosis: 1-2 po q 4-6h Last Documented On 6 1:26PM By Heather Langley ; [facility] Royal 7.5-325 MG Tablet 11/16/2015 - 12/16/2015 Provid er: Alanna Jensen MD Diagnosis: 1 every 4 - 6 hours PO PRN Last Documented On 6 2:09PM By Lani Marquez ; [facility] Voltaren 1% TD GEL 01/31/2013 - 03/02/2013 Provider: Alanna Jensen MD Diagnosis: DEGENERATIVE MIKEY NT DISEASE KNEE apply 4 grams to affected ar ea 4 times a day//ks Last Documented On 3 2:16PM By Ann Marie Sutherland ; [facility] Lortab 10-500 MG OR TABS 09/14/2012 - 09/21/2012 Provi gaby: Alanna Jensen MD Diagnosis: [id number] [facility] jsb/df Last Documented On 3 8:56AM By Jose F Gutierrez ; [facility] Lortab 10-500 MG OR TABS 08/06/2012 - 08/13/2012 Provi gaby: Alanna Jensen MD Diagnosis: [phone] [facility] jsb/df Last Documented On 3 1:59PM By Jose F Gutierrez ; [facility] Lortab 10-500 MG OR TABS 07/09/2012 - 07/16/2012 Provi gaby: Alanna Jensen MD Diagnosis: [phone] [facility] jsb Last Documented On 3 12:36PM By Jose F Gutierrez ; [facility] Lortab 10-500 MG OR TABS 07/01/2012 - 07/08/2012 Provi gaby: Alanna Jensen MD Diagnosis: [phone] [facility] df Last Documented On 3 1:53PM By Jose F Gutierrez ; [facility] Xarelto 10 MG OR TABS 06/14/2012 - 07/05/2012 Provider : Alanna Jensen MD Diagnosis: sx on 06-15-12kw Last Documented On 3 1:31PM By Danielle Dobson ; [facility] Lortab 10-500 MG OR TABS 06/14/2012 - 06/21/2012 Provi gaby: Alanna Jensen MD Diagnosis: sx on 06-15-12kw Last Documented On 3 1:31PM By Danielle Dobson ; [facility] Medications Administered Includes: Administered Medications from [...] 04/14/2024 Last Documented On 4 11:35AM ; [facility] Not a current smoker. 04/14/2024 Last Documented On 4 11:35AM ; [facility] Tobacco non-user 04/14/2024 Last Documented On 4 11:35AM ; [facility] Alcohol use 10/25/2020 Last Documented On 4 11:35AM ; [facility] Not using drugs 10/25/2020 Last Documented On 4 11:35AM ; [facility] Recent change in diet 10/25/2020 Last Documented On 4 11:35AM ; [facility] Non-smoker 10/17/2020 Last Documented On 4 11:35AM ; [facility] No caffeine use 10/17/2020 Last Documented On 4 11:35AM ; [facility] Not a current smoker. 10/17/2020 Last Documented On 4 11:35AM ; [facility] No tobacco use 10/31/2019 Last Documented On 4 11:35AM ; [facility] Not a current smoker 10/31/2019 Last Documented On 4 11:35AM ; [facility] Not exercising regularly 10/31/2019 Last Documented On 4 11:35AM ; [facility] Smoking status : Never smoker 10/31/2019 Last Documented On 4 11:35AM ; [facility] Procedures and Surgical History Surgical History Last Updated History of back surgery 11/2019-Kypho T1 2 10/17/2020 Last Documented On 4 11:35AM ; [facility] History of heart surgery ablation 2017 0 10/31/2019 Last Documented On 4 11:35AM ; [facility] History of total hip replacement left hi p 201810/31/2019 Last Documented On 4 11:35AM ; [facility] History of total knee arthroplasty right knee 201210/31/2019 Last Documented On 4 11:35AM ; [facility] History of hysterectomy 10/16/2014 Last Documented On 4 11:35AM ; [facility] Medical History Includes: Medical History addressed during this encounter Description Last Updated Recent immunization for flu 02/01/2022 1 06/15/2023 Last Documented On 4 11:35AM ; [facility] Recent immunization for pneumococcal pne umonia 2014 04/14/2024 Last Documented On 4 11:35AM ; [facility] History of Irregular Heartbeat A-fib; ep isode after TKA- cadiovert needed 06/16/2022 Last Documented On 4 11:35AM ; [facility] blood transfusions 10/25/2020 Last Documented On 4 11:35AM ; [facility] Arthritis 10/25/2020 Last Documented On 4 11:35AM ; [facility] Heartburn / Acid Reflux 10/25/2020 Last Documented On 4 11:35AM ; [facility] History of Blood Clots 10/25/2020 Last Documented On 4 11:35AM ; [facility] History of Blood Transfusion 10/25/2020 Last Documented On 4 11:35AM ; [facility] History of Cancer 10/25/2020 Last Documented On 4 11:35AM ; [facility] History of Fractures 10/25/2020 Last Documented On 4 11:35AM ; [facility] History of heart disease 10/25/2020 Last Documented On 4 11:35AM ; [facility] Hypertension 10/25/2020 Last Documented On 4 11:35AM ; [facility] Irregular Heartbeat 10/25/2020 Last Documented On 4 11:35AM ; [facility] Past Surgical History: wrist repair ~hand sx ~gallstone sx 2011 ~mastectomy and reconstruction ~colonoscopy 2018 10/25/2020 Last Documented On 4 11:35AM ; [facility] Previous Fractures 10/25/2020 Last Documented On 4 11:35AM ; [facility] Sleep Apnea 10/25/2020 Last Documented On 4 11:35AM ; [facility] Use of CPAP 10/25/2020 Last Documented On 4 11:35AM ; [facility] Back surgery 12/15/2017 L4-5 Posterior Decompression and Fusion @ [facility] ~11/07/2019 T12 Kyphyoplasty 10/25/2020 Last Documented On 4 11:35AM ; [facility] Heart surgery pacemaker 12/2019 ~Afib ab lation 10/25/2020 Last Documented On 4 11:35AM ; [facility] History of Gallbladder 10/25/2020 Last Documented On 4 11:35AM ; [facility] Hysterectomy 10/25/2020 Last Documented On 4 11:35AM ; [facility] Total hip replacement 12/2018-Left hip 0 10/17/2020 Last Documented On 4 11:35AM ; [facility] A previous fracture 10/31/2019 Last Documented On 4 11:35AM ; [facility] Gallbladder disease 2018 10/31/2019 Last Documented On 4 11:35AM ; [facility] History of diverticulitis of colon 11/15 Last Documented On 4 11:35AM ; [facility] History of osteoporosis 11/16/2015 Last Documented On 4 11:35AM ; [facility] A history of cancer 10/16/2014 Last Documented On 4 11:35AM ; [facility] Arthritic joint problems 10/16/2014 Last Documented On 4 11:35AM ; [facility] Family History Includes: Family History addressed during this encounter Description Last Updated Family history of cancer mother ~father 11/16/2015 Last Documented On 4 11:35AM ; [facility] Family history of diabetes mellitus moth er 11/16/2015 Last Documented On 4 11:35AM ; [facility] Family history of heart disease mother ~ father 11/16/2015 Last Documented On 4 11:35AM ; [facility] Family history of hypertension mother ~f ather 11/16/2015 Last Documented On 4 11:35AM ; [facility] Family history of osteoporosis mother Last Documented On 4 11:35AM ; [facility] Family history of rheumatoid arthritis m other 11/16/2015 Last Documented On 4 11:35AM ; [facility] Family history of thromboembolic disease mother 11/16/2015 Last Documented On 4 11:35AM ; [facility] Maternal history of hypertension 015 Last Documented On 4 11:35AM ; [facility] Maternal history of osteoporosis 015 Last Documented On 4 11:35AM ; [facility] Review of Systems Includes: Review of [...] ctive Last Documented On 4 12:09PM ; [facility] Statins Support Allergy 06/09/2017 Act citlalli Last Documented On 4 12:09PM ; [facility] Percocet Allergy 03/10/2012 Active Last Documented On 4 12:09PM ; [facility] Bactrim Allergy 11/16/2015 Active Last Documented On 4 12:09PM ; [facility] Encounters Encounter Provider Location Date Check-In Time Check- Out Time Diagnosis Follow Up Ceci Santos APRN [facility] 4 11:24AM 12:17PM Insurance Includes: Active Insurance Policies Plan Name Member ID Group # Subscriber Relationship Effect citlalli Dates 1 - Medicare Part [place] of [place] [id number] Luz Skaggs Self 04/03/2007 - Unknown 2 - [employer] [place] [phone] PLAN F Luz Skaggs Self 2011 - Unknown Clinical Notes Includes: Clinical Notes from this encounter * Progress note Date Encounter Last Documented by 03/03/2024 Follow Up Last documented on 03/10/2024; 4:11 PM, Ceci Santos APRN; [facility], [facility] Active Problems & Conditions - Joint [...] Capsule 5 days, 0 refills - MegaRed [place]-3 Krill Oil 350 MG Oral Capsule once [...] refills - Sudafed 30 MG Oral Tablet 1yme0-6m 0 days, 0 refills - Warfarin Sodium [...] 12/15/2017 L4-5 Posterior Decompression and Fusion @ [facility] 11/07/2019 T12 Kyphyoplasty - Total [...] Care Team - FATOUMATA LESLIE MD - TRAUMA SURGEON
--- OUTSIDE RECORDS SUMMARY | 2025-03-24 10:10 | XMS_ITS | Clinical Summary ---
Author Organization Healthcare Address [address] [place] [address] Care Team Providers Care [employer]mat Truck Driver Name Role Phone Ferny Gentile MD Primary Care Provider [phone] Family History Medical History Relation Name Comments [...] of Treatment Not on file Care Teams [employer] Truck Driver Relationship Specialty Start Date End Date Ferny Gentile MD [address] [facility] [address] [place] [id number] PCP - General 09/14/20
--- OUTSIDE RECORDS SUMMARY | 2025-03-24 10:10 | XMS_ITS | Encounter Summary ---
[facility] Address [address] [place] [address] Care Team Providers Care Charge Preparation Technician Name Role Phone Ferny Gentile MD Primary Care Provider [phone] Encounter Details Date Type Department Care Team (Late st Contact Info) Description 11/10/2023 Anticoagulation Visit [facility] [address] [place] [phone] Karen Mace, National Account Director Social History Tobacco Use Types Packs/Day Years [...] Visit [facility] RHEUMATOLOGY [address] [facility] [address] [place] [phone] David Bernstein MD 330 [facility] 100 [place] [address] 10/03/2025 2:45 PM EDT Office Visit [facility] CARDIOLOGY [address] [facility] [address] [place] [address] Yno Govea MD [address] [facility] [address] [place] [address] 06/14/2026 1:30 PM EST Office Visit [facility] CARDIOLOGY [address] [place] [address] [address] Wojciech Flores MD [address] [place], [place] [id number] documented as of this encounter Procedures Procedure Name Priority Date/Time Associated Diagnosis Comments PROTIME-INR Routine 11/06/2023 documented in this encounter Results * Protime-INR (11/06/2023) INR 2.70 Blood 11/06/2023 Historical Provider LAB BLOOD ORDERABLES Edit ed Result - Final documented in this encounter Visit Diagnoses Not on filedocumented in this encounter Care Teams Charge Preparation Technician Relationship Specialty Start Date End Date Ferny Gentile MD [address] [facility] [address] [place] [address] PCP - General 06/11/15 documented as of this encounter
--- OUTSIDE RECORDS SUMMARY | 2025-03-24 10:10 | XMS_ITS | Encounter Summary ---
[facility] Address [address] [place] [address] Care Team Providers Care Plumbing Mechanic Name Role Phone Ferny Gentile MD Primary Care Provider [phone] Encounter Details Date Type Department Care Team (Latest Contact Info) Description 12/10/2020 Anticoagulation Visit [facility] [address] [place] [address] [address] [place] [address] Leticia Vivar, Stockbroking Dealer Paroxysmal 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 (Primary Dx) Social History [...] Description 06/30/2025 11:30 AM EST Office Visit [facility]HE[facility] [address] [address] David Bernstein MD 330 [facility] 100 [place] [address] 10/03/2025 2:45 PM EDT Office Visit [facility] C[facility] [address] [facility] [address] [place] [id number] Yon Govea MD [address] [place] [address] 06/14/2026 1:30 PM EST Office Visit [facility] CARDIOLOG[facility] [address] [place] [place] [address] Wojciech Floers MD [address] [place], [place] [id number] documented as of this encounter Procedures Procedure [...] documented as of this encounter Care Teams Plumbing Mechanic Relationship Specialty Start Date End Date Ferny Gentile MD [address] [facility] [address] [place] [address] PCP - General 06/11/15 documented as of this encounter
--- OUTSIDE RECORDS SUMMARY | 2025-03-24 10:10 | XMS_ITS | Encounter Summary ---
[facility] Address [address] [place] [address] Care Team Providers Care Digital Computer Operator Name Role Phone Ferny Gentile MD Primary Care Provider [phone] Encounter Details Date Type Department Care Team (Late st Contact Info) Description 07/15/2024 Results Follow-Up [facility] RHEUMATOLOGY [address] [address] David Bernstein MD 330 [facility] 100 [place] [address] Social History Tobacco Use Types [...] Description 06/30/2025 11:30 AM EST Office Visit [facility] RHEUMATOLOGY 330 [facility] 100 [place] [address] David Bernstein MD [address] [facility] 100 [place] [address] 10/03/2025 2:45 PM EDT Office Visit [facility] CARDIOLOGY [address] [facility] [address] [place] [address] Yon Govea MD [address] [facility] 400 [place] [address] 06/14/2026 1:30 PM EST Office Visit [facility] CARDIOLOGY [address] [facility] [place] [address] Wojciech Flores MD [address] [place] [address] documented as of this encounter Visit Diagnoses Not on filedocumented in this encounter Care Teams Digital Computer Operator Relationship Specialty Start Date End Date Ferny Gentile MD [address] [facility] [address] [place] [address] PCP - General 06/11/15 documented as of this encounter
--- OUTSIDE RECORDS SUMMARY | 2025-03-24 10:10 | XMS_ITS | Encounter Summary ---
[facility] Address [address] [place] [address] Care Team Providers Care Pipe Changer Name Role Phone Ferny Gentile MD Primary Care Provider [phone] Encounter Details Date Type Department Care Team (Late st Contact Info) Description 11/02/2024 Results Follow-Up [facility] RHEUMATOLOG[facility] [address] [address] David Bernstein MD 330 [facility] 100 [place] [address] Social History Tobacco Use Types [...] 11:30 AM EST Office Visit [facility] RHEUMAT[facility] 330 [facility] 100 [place] [address] David Bernstein MD 330 [facility] 100 [place] [address] 10/03/2025 2:45 PM EDT Office Visit [facility] CARDIOLOG[facility] 3000 [facility] [address] [place] [address] Yon Govea MD [address] [facility] 400 [place] [address] 06/14/2026 1:30 PM EST Office Visit [facility] CARDIOLOG[facility] 210 [facility] [place] [address] Wojciech Flores MD [address] [place] [address] documented as of this encounter Visit Diagnoses Not on filedocumented in this encounter Care Teams Pipe Changer Relationship Specialty Start Date End Date Ferny Gentile MD [address] [facility] [address] [place] [address] PCP - General 06/11/15 documented as of this encounter
--- OUTSIDE RECORDS SUMMARY | 2025-03-24 10:10 | XMS_ITS | Clinical Summary ---
Author Organization [facility] , [facility] Address [address] [place] [address] Phone Care Team Providers Care Pipe Insulator Helper Name Role Phone MARIAMA MORALEZ, FATOUMATA E Primary Care Provider [phone] Camila MORALEZ, Alanna Bowen Unavailable [phone] [...] Active Last Documented On 2 1:05PM ; [facility] Joint Pain Right Thumb 04/17/2022 Ceci griffin APRN Active Last Documented On 2 1:05PM ; [facility] Midback Pain 10/17/2020 Brandon Wilks MD Acti ve Last Documented On 1 2:32PM ; [facility] Joint Pain Left Knee 02/16/2020 Eliseo Cuevas MD Active Last Documented On 0 1:26PM ; [facility] Joint Pain Right Knee 10/29/2016 Alanna castaneda MD Active Last Documented On 7 10:32AM ; [facility] Pain in Lumbar Spine 03/13/2016 Alanna krause MD Active Last Documented On 6 1:07PM ; [facility], [facility] Joint Pain Hip Left 03/13/2016 Alanna chin MD Active Last Documented On 6 1:09PM ; [facility] Joint Pain Knee 03/10/2012 Alanna Pereira Active Last Documented On 2 10:37AM ; [facility], [facility] Plan of Treatment Fall Risk Assessment: [...] - Last Documented On 08/18/2022 1:50PM ; [facility] overall the patient is very pleased with her knee surgery, has some residual swelling of the lower leg being treated for lymphedema. Will plan for follow-up one year postop - Last Documented On 08/18/2022 1:50PM ; [facility], [facility] Instructions to patient Lose weight Last Documented On 3 1:09PM ; [facility], [facility] Assessments Includes: Assessments from this encounter Findings 3 months status post left TKA - Last Documented On 08/18/2022 1:50PM ; [facility], [facility] Instructions Includes: Instructions from this encounter Instructions to patient Lose weight Last Documented On 3 1:09PM ; [facility] Medical Equipment - Implanted Devices Includes: Current Devices No Medical Equipment Recorded Medications Includes: Medications discussed during this encounter and other current Medications Current Medications (continue as prescribed) Colestipol HCl 5 GM Oral Packet 04/14/2024 Provider: Diagnosis: Last Documented On 4 11:25AM By Carla Hall ; [facility] Protonix 20 MG Oral Tablet Delayed Release 06/16/2022 Provider: Diagnosis: Last Documented On 3 4:00PM By Elif Chicas ; [facility] Flecainide Acetate 100 MG Oral Tablet 06/16/2022 Pro vider: Diagnosis: Last Documented On 3 4:01PM By Elif Chicas ; [facility], [facility] Metoprolol Succinate ER 25 M G Oral Tablet Extended Release 24 Hour 06/12/2022 Provider: Diagnosis: Last Documented On 3 4:00PM By Elif Chicas ; [facility] predniSONE 10 MG Oral Tablet 05/02/2022 Provider: FATOUMATA LESLIE MD Diagnosis: Last Documented On 3 4:00PM By Elif Chicas ; [facility] Lagevrio 200 MG Oral Capsule 04/22/2022 Provider: FATOUMATA LESLIE MD Diagnosis: Last Documented On 3 4:00PM By Elif Chicas ; [facility] Lagevrio 200 MG Oral Capsule 04/22/2022 Provider: FATOUMATA LESLIE MD Diagnosis: Last Documented On 3 4:00PM By Elif Chicas ; [facility], [facility] Mupirocin 2% External Ointment 04/16/2022 Provider: Eliseo Cuevas MD Diagnosis: three times a day Apply to n ostrils 3 time a day 5 days prior to surgery. Last Documented On 2 2:50PM By Glida Kamara ; [facility], [facility] MegaRed Strang-3 Krill Oil 350 MG Oral Capsule 10/26/19 21 Provider: Diagnosis: Last Documented On 1 1:15PM By Betzaida Donald ; [facility], [facility] Sudafed 30 MG Oral Tablet 10/25/2020 Provider: Diagnosis: Last Documented On 1 1:15PM By Betzaida Donald ; [facility], [facility] Mucinex Allergy 180 MG Oral Tablet 10/25/2020 Provid er: Diagnosis: Last Documented On 1 1:14PM By Betzaida Donald ; [facility], [facility] Warfarin Sodium 7.5 MG Oral Tablet 10/17/2020 Provid er: Diagnosis: Last Documented On 1 2:43PM By Greer Kingston ; [facility], [facility] Ezetimibe 10 MG Oral Tablet 09/11/2020 Provider: FATOUMATA LESLIE MD Diagnosis: Last Documented On 1 1:13PM By Betzaida Donald ; [facility], [facility] Digoxin 125 MCG Oral Tablet 07/21/2020 Provider: Diagnosis: Last Documented On 1 2:44PM By Greer Kingston ; [facility] CoQ-10 10 MG Oral Capsule 10/20/2019 Provider: Diagnosis: Last Documented On 0 4:01PM By Greer Kingston ; [facility] D3-1000 25 MCG (1000 UT) Oral Capsule 10/20/2019 Pro vider: Diagnosis: Last Documented On 0 4:00PM By Greer Kingston ; [facility], [facility] Omeprazole 20 MG Oral Ta blet Delayed Release Disintegrating 10/20/2019 Provider: Diagnosis: Last Documented On 0 3:59PM By Greer Kingston ; [facility], [facility] Probiotic Maximum Strength Oral Capsule 10/20/2019 Provider: Diagnosis: Last Documented On 0 3:58PM By Greer Kingston ; [facility] Citalopram Hydrobromide 10 MG Oral Tablet 10/20/2019 Provider: Diagnosis: Last Documented On 0 3:56PM By Greer Kingston ; [facility] Flecainide Acetate 100 MG Oral Tablet 10/20/2019 Pro vider: Diagnosis: Last Documented On 0 3:55PM By Greer Kingston ; [facility] Past Medications on file oxyCODONE HCl 5 MG Oral Tablet 05/29/2022 - 06/03/2022 Provider: Eliseo ceja MD Diagnosis: 1-2 po q 4-6h Last Documented On 3 12:32PM By Hima Cuevas ; [facility] traMADol HCl 50 MG Oral Tablet 05/29/2022 - 06/03/2022 Provider: Eliseo ceja MD Diagnosis: 1-2 po q 4-6h Last Documented On 3 12:32PM By Hima Cuevas ; [facility] Lovenox 40 MG/0.4ML Injection Solution [...] - 05/26/2022 Provider: Eliseo Cuevas MD Diagnosis: [id number] Last Documented On 3 12:08PM By Hima [...] By Dr. Wilks ; [facility] [place] 5-325MG Oral Tablet 12/23/2018 - 01/22/2019 Provider: Eliseo ceja MD Diagnosis: 1-2 po q6h prn pain Last Documented On 9 3:09PM By Reanna Gutierrez ; [facility] Acetaminophen 500MG Oral Tablet 12/08/2018 - 01/07/2019 Provider: Eliseo Cuevas MD Diagnosis: 2 three times a day FOR BACON RGERY DO NOT FILL UNTIL 12/14/18 Last Documented On 9 4:10PM By Reanna Guiterrez ; [facility] traMADol HCl 50MG Oral Tablet 12/08/2018 - 12/13/2018 Provider: Eliseo ceja MD Diagnosis: 1-2 po q6h prn pain FOR BACON RGERY DO NOT FILL UNTIL 12/14/18 Last Documented On 9 4:06PM By Reanna Gutierrez ; [facility], [facility] Neurontin 300MG Oral Capsule 12/08/2018 - 03/08/2019 Provider: Eliseo ceja MD Diagnosis: 1 every bedtime FOR SURGER Y DO NOT FILL UNTIL 12/14/18 Last Documented On 9 4:05PM By Reanna Gutierrez ; [facility], [facility] Dilaudid 2MG Oral Tablet 12/08/2018 - 12/10/2018 Provi gaby: Eliseo Cuevas MD Diagnosis: 1-2 po q6h prn pain (RESCUE PAIN) FOR SURGERY DO NOT FILL UNTIL 12/14/18 Last Documented On 9 4:05PM By Reanna Gutierrez ; [facility] Colace 100MG Oral Capsule 12/08/2018 - 03/08/2019 Provider: Eliseo ceja MD Diagnosis: 1-2 tabs daily FOR SURGERY DO NOT FILL UNTIL 12/14/18 Last Documented On 9 4:10PM By Reanna Gutierrez ; [facility] Mupirocin 2% External Ointment 11/09/2018 - 11/14/2018 Provider: Eliseo ceja MD Diagnosis: Apply to nostrils 3 time a d ay 5 days prior to surgery. Last Documented On 9 10:40AM By Gilda Kamara ; [facility] [place] 5-325MG Oral Tablet 12/24/2017 - 12/31/2017 Prov ider: Brandon Wilks MD Diagnosis: 1-2 po q 4-6h PRN Last Documented On 8 5:31PM By Dr. Wilks ; [facility] [place] 7.5-325 MG OR TABS 12/24/2017 - 01/03/2018 Provi gaby: Brandon Wilks MD Diagnosis: Last Documented On 8 11:35AM By Marcelle Croft ; [facility] Voltaren Gel 1% External 10/14/2017 - 12/13/2017 Provi gaby: Alanna Jensen MD Diagnosis: use as directed Last Documented On 8 10:09AM By Sayra Evans ; [facility] Lovenox 40MG/0.4ML Subcutaneous Solution 05/06/2017 - 05/26/2017 Provider: Alanna castaneda MD Diagnosis: use as directed/1 INJECTION PER DAY FOR 5 DAYS PRIOR TO PROCEDER & 1 INJECTION PER DAY FOR 5 DAYS AFTER PROCERDER/ Last Documented On 8 4:29PM By Sayra Evans ; [facility] [place] 5-325 MG Tablet 10/29/2016 - 11/05/2016 Provider : Alanna Jensen MD Diagnosis: 1-2 po q 4-6h PRN Last Documented On 7 11:55AM By Camryn Paez ; [facility] Medrol 4 MG Tablet Therapy Pack 02/14/2016 - 02/20/2016 Provider: Alanna chin MD Diagnosis: use as directed by pharmacy Last Documented On 6 3:16PM By Heather Langley ; [facility] [place] 5-325 MG Tablet 12/03/2015 - 12/18/2015 Provider : Alanna Jensen MD Diagnosis: 1-2 po q 4-6h Last Documented On 6 1:26PM By Heather Langley ; [facility] [place] 7.5-325 MG Tablet 11/16/2015 - 12/16/2015 Provid er: Alanna Jensen MD Diagnosis: 1 every 4 - 6 hours PO PRN Last Documented On 6 2:09PM By Lani Marquez ; [facility] Voltaren 1% TD GEL 01/31/2013 - 03/02/2013 Provider: Alanna Jensen MD Diagnosis: DEGENERATIVE MIKEY NT DISEASE KNEE apply 4 grams to affected ar ea 4 times a day//ks Last Documented On 3 2:16PM By Ann Marie Sutherland ; [facility] Lortab 10-500 MG OR TABS 09/14/2012 - 09/21/2012 Provi gaby: Alanna Jensen MD Diagnosis: [phone] [facility] jsb/df Last Documented On 3 8:56AM By Jose F Gutierrez ; [facility] Lortab 10-500 MG OR TABS 08/06/2012 - 08/13/2012 Provi gaby: Alanna Jensen MD Diagnosis: [phone] [employer] jsb/df Last Documented On 3 1:59PM By Jose F Gutierrez ; [facility] Lortab 10-500 MG OR TABS 07/09/2012 - 07/16/2012 Provi gaby: Alanna Jensen MD Diagnosis: [phone] [facility] jsb Last Documented On 3 12:36PM By Jose F Gutierrez ; [facility] Lortab 10-500 MG OR TABS 07/01/2012 - 07/08/2012 Provi gaby: Alanna Jensen MD Diagnosis: [phone] [facility] df Last Documented On 3 1:53PM By Jose F Gutierrez ; [facility] Xarelto 10 MG OR TABS 06/14/2012 - 07/05/2012 Provider : Alanna Jensen MD Diagnosis: sx on 06-15-/kw Last Documented On 3 1:31PM By Danielle Dobson ; [facility] Lortab 10-500 MG OR TABS 06/14/2012 - 06/21/2012 Provi gaby: Alanna Jensen MD Diagnosis: sx on 06-15-12 Last Documented On 3 1:31PM By Danielle Dobson ; [facility], [facility] Medications Administered Includes: Administered Medications from this encounter No Administered Medications Recorded Vital Signs Includes: Vital Signs from this encounter Vital Name 08/18/2022 01:09P Height (in) 65 Weight (lb) 169 Body Mass Index 28.1 Body Surface Area 1.8 Note: dp Last Documented: On 08/18/2022 1:09PM ; [facility] Results Includes: Results discussed during [...] 04/14/2024 Last Documented On 3 1:09PM ; [facility] Not a current smoker. 04/14/2024 Last Documented On 3 1:09PM ; [facility] Tobacco non-user 04/14/2024 Last Documented On 3 1:09PM ; [facility] Alcohol use 10/25/2020 Last Documented On 3 1:09PM ; [facility] Not using drugs 10/25/2020 Last Documented On 3 1:09PM ; [facility] Recent change in diet 10/25/2020 Last Documented On 3 1:09PM ; [facility] Non-smoker 10/17/2020 Last Documented [...] Last Documented On 3 1:09PM ; [facility] Smoking status : Never smoker 10/31/2019 Last Documented On 3 1:09PM ; [facility] Procedures and Surgical History Includes: Procedures from this encounter Procedures Code Diagnosis Performing Provider Service L ocation Service Date use of tobacco assessment performed 1000F Last Documented On 3 1:09PM ; [facility], [facility] patient screened for future fall risk: documentation of any fall with injury in past year 1100F Last Documented On 3 1:09PM ; [facility] follow-up visit in one month Last Documented On 3 1:09PM ; [facility] referral to physician Last Documented On 3 1:09PM ; [facility] an X-ray was performed [id number] Last Documented On 3 1:09PM ; [facility] Surgical History Last Updated History of back surgery 11/2019-Kypho T1 2 10/17/2020 Last Documented On 3 1:09PM ; [facility], [facility] History of heart surgery ablation 2017 0 10/31/2019 Last Documented On 3 1:09PM ; [facility], [facility] History of total hip replacement left hi p 201810/31/2019 Last Documented On 3 1:09PM ; [facility], [facility] History of total knee arthroplasty right knee 201210/31/2019 Last Documented On 3 1:09PM ; [facility], [facility] History of hysterectomy 10/16/2014 Last Documented On 3 1:09PM ; [facility] Medical History Includes: Medical History addressed during this encounter Description Last Updated Recent immunization for flu 02/01/2022 1 06/15/2023 Last Documented On 3 1:09PM ; [facility], [facility] Recent immunization for pneumococcal pne umonia 201304/14/2024 Last Documented On 3 1:09PM ; [facility], [facility] History of Irregular Heartbeat A-fib; ep isode after TKA- cadiovert needed 06/16/2022 Last Documented On 3 1:09PM ; [facility], [facility] blood transfusions 10/25/2020 Last Documented On 3 1:09PM ; [facility], [facility] Arthritis 10/25/2020 Last Documented On 3 1:09PM ; [facility], [facility] Heartburn / Acid Reflux 10/25/2020 Last Documented On 3 1:09PM ; [facility] History of Blood Clots 10/25/2020 Last Documented On 3 1:09PM ; [facility] History of Blood Transfusion 10/25/2020 Last Documented On 3 1:09PM ; [facility] History of Cancer 10/25/2020 Last Documented On 3 1:09PM ; [facility] History of Fractures 10/25/2020 Last Documented On 3 1:09PM ; [facility] History of heart disease 10/25/2020 Last Documented On 3 1:09PM ; [facility] Hypertension 10/25/2020 Last Documented On 3 1:09PM ; [facility] Irregular Heartbeat 10/25/2020 Last Documented On 3 1:09PM ; [facility], [facility] Past Surgical History: wrist repair ~hand sx ~gallstone sx 2011 ~mastectomy and reconstruction ~colonoscopy 2018 10/25/2020 Last Documented On 3 1:09PM ; [facility], [facility] Previous Fractures 10/25/2020 Last Documented On 3 1:09PM ; [facility] Sleep Apnea 10/25/2020 Last Documented On 3 1:09PM ; [facility] Use of CPAP 10/25/2020 Last Documented On 3 1:09PM ; [facility] Back surgery 12/15/2017 L4-5 Posterior Decompression and Fusion @ [facility] ~11/07/2019 T12 Kyphyoplasty 10/25/2020 Last Documented On 3 1:09PM ; [facility], [facility] Heart surgery pacemaker 12/2019 ~Afib ab lation 10/25/2020 Last Documented On 3 1:09PM ; [facility] History of Gallbladder 10/25/2020 Last Documented On 3 1:09PM ; [facility] Hysterectomy 10/25/2020 Last Documented On 3 1:09PM ; [facility] Total hip replacement 12/2018-Left hip 0 10/17/2020 Last Documented On 3 1:09PM ; [facility] A previous fracture 10/31/2019 Last Documented On 3 1:09PM ; [facility] Gallbladder disease 2018 10/31/2019 Last Documented On 3 1:09PM ; [facility] History of diverticulitis of colon 11/15 Last Documented On 3 1:09PM ; [facility] History of osteoporosis 11/16/2015 Last Documented On 3 1:09PM ; [facility] A history of cancer 10/16/2014 Last Documented On 3 1:09PM ; [facility] Arthritic joint problems 10/16/2014 Last Documented On 3 1:09PM ; [facility] Family History Includes: Family History addressed during this encounter Description Last Updated Family history of cancer mother ~father 11/16/2015 Last Documented On 3 1:09PM ; [facility] Family history of diabetes mellitus moth [...] mother Last Documented On 3 1:09PM ; [facility] Family history of rheumatoid arthritis m other 11/16/2015 Last Documented On 3 1:09PM ; [facility] Family history of thromboembolic disease mother 11/16/2015 Last Documented On 3 1:09PM ; [facility] Maternal history of hypertension 015 Last Documented On 3 1:09PM ; [facility] Maternal history of osteoporosis 015 Last Documented On 3 1:09PM ; [facility] Review of Systems Includes: Review [...] Last Documented On 4 12:09PM ; [facility] Statins Support Allergy 06/09/2017 Act citlalli Last Documented On 4 12:09PM ; [facility] Percocet Allergy 03/10/2012 Active Last Documented On 4 12:09PM ; [facility] Bactrim Allergy 11/16/2015 Active Last Documented On 4 12:09PM ; [facility] Encounters Encounter Provider Location Date Check-In Time Check- Out Time Diagnosis Post Op Hernan Gold PA-C [facility] 3 1:00PM 1:29PM Insurance Includes: Active Insurance Policies Plan Name Member ID Group # Subscriber Relationship Effect citlalli Dates 1 - Medicare Part B [facility] [id number] Luz Skaggs Self 04/03/2007 - Unknown 2 - [employer] [id number] PLAN F Luz Skaggs Self 2011 - Unknown Clinical Notes Includes: Clinical Notes from this encounter * Progress note Date Encounter Last Documented by 08/18/2022 Post Op Last documented on 08/18/2022; 1:50 PM, Hernan Gold PA-C; [facility] Active Problems & Conditions - Joint [...] directed 0 days, 0 refills - Ipratropium [place] 0.03% Nasal Solution take as directed 0 days, 0 refills - Lagevrio 200 MG Oral Capsule 5 days, 0 refills - Lagevrio 200 MG Oral Capsule 5 days, 0 refills - MegaRed Strang-3 Krill Oil 350 MG Oral Capsule once [...] refills - Sudafed 30 MG Oral Tablet [id number] 0 days, 0 refills - Warfarin Sodium [...] 12/15/2017 L4-5 Posterior Decompression and Fusion @ [facility] 11/07/2019 T12 Kyphyoplasty - Back surgery 11/2019-Kypho [...] Care Team - FATOUMATA LESLIE MD - FOOD SCIENCE PROFESSOR
--- OUTSIDE RECORDS SUMMARY | 2025-03-24 10:10 | XMS_ITS | Referral Summary ---
Author Organization [employer] ([place], [place], [place], [place], [place]) Address [address] [place] [address] Care Team Providers Care Construction Coordinator Name Role Phone SeferinoSakinat Primary Care Provider [phone] Allergies Active Allergy Reactions Criticality Noted Date [...] oxide 400 mg magnesium Tab daily. Active py-jve-tifeqo- [id number] 27 0.5-30-60-90 mg Cap daily. Active cholecalcifero [...] Date Alfredo rded Speak language other than Japanese at home Not on file 05/22/2023 Want [...] on file Medical Devices Implanted Type Area Patient Financial Specialist Device Identifier Shelf Expiration Date Model / Serial / Lot Cement Bone [place] Hv 40/20 600-15-000 - [id number] Implanted:Qty : 2 on 05/26/2022 by Eliseo Cuevas MD at [facility] IMPLANTS Left: Knee DJ SURG:ENCORE MED:BRIANTANOOGA 05/30/2023 600-15-00 0 / / [id number] Ty Tib I-Beam Fix Biomet 75mm [id number] - [id number] Implanted:Qty : 1 on 05/26/2022 by Eliseo Cuevas MD at [facility] T[employer] Left: Knee BIOMET 03/26/2032 [id number] / / [id number] Patella Std 8x31mm [id number] - [id number] Implanted:Qty : 1 on 05/26/2022 by Eliseo Cuevas MD at [facility] [employer] Left: Knee BIOMET 03/12/2027 [id number] / / [id number] Comp Fem Ps Vangrd 65mm [id number] - [id number] Implanted:Qty : 1 on 05/26/2022 by Eliseo Cuevas MD at [facility] [employer] Left: Knee BIOMET 10/13/2029 [id number] / / [id number] Insrt Tib Bear Ps 10x71/75 [id number] - [id number] Implanted:Qty : 1 on 05/26/2022 by Eliseo Cuevas MD at [facility] [employer] Left: Knee BIOMET 11/07/2025 [id number] / / [id number] Insurance [place]IC[place] [address] [place] [address] Advance Directives For more information, please contact: [phone] * Full Code (Latest Code Status on File) Date Activated Date Inactivated Comments 05/26/2022 3:06 PM 05/29/2022 8:04 PM * Full Code Date Activated Date Inactivated Comments 05/26/2022 8:57 AM 05/26/2022 3:06 PM Care Teams Construction Coordinator Relationship Specialty Start Date End Date Ferny Gentile [address] [place] [address] PCP - General 05/22/22
--- OUTSIDE RECORDS SUMMARY | 2025-03-24 10:10 | XMS_ITS ---
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 14-day rn cardiac cath 06/29/2019: Average heart rate 74 bpm. PVCs [...] Kerma 70 mGy 0 mGy 70 mGy Fluoro Time 10 Minutes 0 Minutes 10 Minutes Resolved Problems Problem Noted Date Diagnosed Date [...]
--- OUTSIDE RECORDS SUMMARY | 2025-03-24 10:11 | XMS_ITS | Encounter Summary ---
Author Organization [employer] ([place], [place], [place], [place], [place]) Address [address] [place] [address] Care Team Providers Care Psychiatric Lpn Name Role Phone Ferny Gentile Primary Care Provider [phone] Encounter Details Date Type Department Care Team (Late st Contact Info) Description 12/14/2018 Transcribed Document [facility] Family [place] [facility] [place] [address] ProviderArt MD [address] [place] [id number] Social History Tobacco Use Types Packs/Day [...] on filedocumented in this encounter Care Teams Psychiatric Lpn Relationship Specialty Start Date End Date Ferny Gentile [address] [place] [address] PCP - General 05/22/22 documented as of this encounter
--- OUTSIDE RECORDS SUMMARY | 2025-03-24 10:11 | XMS_ITS | Encounter Summary ---
Author Organization [facility] Address [address] [place] [address] Care Team Providers Care C Programmer Name Role Phone Ferny Gentile MD Primary Care Provider [phone] Encounter Details Date Type Department Care Team (Latest Contact Info) Description 02/28/2025 Travel Social History Tobacco Use Types Packs/Day [...] EST Office Visit [facility] [address] [facility] ([place] [place] 100 [place] [phone] David Bernstein MD 330 [facility] 100 [place] [address] 10/03/2025 2:45 PM EDT Office Visit [facility] 3000 [facility] [address] [place] [address] Yon Govea MD 1720 [facility] 400 [place] [address] 06/14/2026 1:30 PM EST Office Visit [facility] [address] [place] [address] [place] [address] Wojciech Flores MD 1720 [facility] E [facility] 400 [place], [place] [phone] documented as of this encounter Visit Diagnoses Not on filedocumented in this encounter Care Teams C Programmer Relationship Specialty Start Date End Date Ferny Gentile MD [address] [place] [address] [facility] [address] [place] [address] PCP - General 06/11/15 documented as of this encounter
--- OUTSIDE RECORDS SUMMARY | 2025-03-24 10:11 | XMS_ITS | Encounter Summary ---
Author Organization [employer] ([place], [place], [place], [place], [place]) Address [address] [place] [address] Care Team Providers Care Manager Of Warehouse Name Role Phone Ferny Gentile Primary Care Provider [phone] Encounter Details Date Type Department Care Team (Late st Contact Info) Description 12/14/2018 Transcribed Document [facility] [place] [facility] [place] [address] ProviderArt MD [address] [place] [address] Social History Tobacco Use Types Packs/Day [...] on filedocumented in this encounter Care Teams Manager Of Warehouse Relationship Specialty Start Date End Date Ferny Gentile [address] [place] [address] PCP - General 05/22/22 documented as of this encounter
--- OUTSIDE RECORDS SUMMARY | 2025-03-24 10:11 | XMS_ITS | Encounter Summary ---
Author Organization [facility] Address [address] [place] [address] Care Team Providers Care Flame Cutting Machine Operator Name Role Phone Ferny Gentile MD Primary Care Provider [phone] Reason for Visit * Reason Onset Date Comments Med Refill 02/13/2025 Encounter Details Date Type Department Care Team (Late st Contact Info) Description 02/13/2025 Refill [facility] 1720 [facility] 606 [place] [address] Claudia Bauer, PharmD 1740 [place] [address] Social History Tobacco Use Types Packs/Day Years [...] Description 06/30/2025 11:30 AM EST Office Visit [facility] RHEUM[facility] [address] [phone] David Bernstein MD 330 [facility] 100 [place] [address] 10/03/2025 2:45 PM EDT Office Visit [facility] C[facility] 3000 [facility] [address] [place] [address] Yon Govea MD 1720 [facility] 400 [place] [address] 06/14/2026 1:30 PM EST Office Visit [facility] C[facility] [address] [place] [address] [place] [address] Wojciech Flores MD 1720 [facility] [address] [place] [address] documented as of this encounter Visit Diagnoses Not on filedocumented in this encounter Care Teams Flame Cutting Machine Operator Relationship Specialty Start Date End Date Ferny Gentile MD 1210 [facility] [address] [place] [address] PCP - General 06/11/15 documented as of this encounter
--- OUTSIDE RECORDS SUMMARY | 2025-03-24 10:11 | XMS_ITS | Encounter Summary ---
Author Organization [employer] ([place], [place], [place], [place], [place]) Address [address] [place] [address] Care Team Providers Care Extractor Operator Helper Name Role Phone SeferinoSakinat Primary Care Provider [phone] Encounter Details Date Type Department Care Team (Late st Contact Info) Description 12/14/2018 Transcribed Document [facility] [place] [place] Family Medicine [facility] [place] [address] ProviderArt MD [address] [place] [address] Social History Tobacco Use Types Packs/Day [...] 12/14/2018 22:53 EDT Electronically signed by Marilou Sjh Conversion Director Private Music Therapy Agency [employer] at 08/22/2022 8:25 AM CDT documented in this encounter Plan of Treatment Not on file documented as of this encounter Visit Diagnoses Not on filedocumented in this encounter Care Teams Extractor Operator Helper Relationship Specialty Start Date End Date Ferny Gentile [address] [place] [address] PCP - General 05/22/22 documented as of this encounter
--- OUTSIDE RECORDS SUMMARY | 2025-03-24 10:11 | XMS_ITS | Encounter Summary ---
Author Organization [facility] Address [address] [place] [address] Care Team Providers Care Acute Care Surgeon Name Role Phone Ferny Gentile MD Primary Care Provider [phone] Encounter Details Date Type Department Care Team (Late st Contact Info) Description 03/02/2025 Results Follow-Up [facility] 17[address] [place] [address] Dee Dee Ivan Social History Tobacco Use Types Packs/Day Years [...] as of this encounter Progress Notes * Dee Dee Ivan - 03/06/2025 9:38 AM EST This patient recently completed the CARE risk assessment for a mammogram appointment. Based on the patient's responses, NCCN criteria for genetic testing was met. At the time of the assessment, the patient was provided with both written and video educational materials regarding genetic testing. Navigator follow-up: I have attempted to contact the patient via Xangati message to discuss the risk assessment results.The patient has not yet responded. My contact information was included in the UBmatrixt message. * Dee Dee Ivan - 03/02/2025 11:51 AM EDT I sent the patient a Xangati message asking for a call to discuss assessment results. documented in this encounter Plan of Treatment Upcoming Encounters Date Type Department Care Team ([facility] st Contact Info) Description 06/30/2025 11:30 AM EST Office Visit [facility] RHEUMATOLOGY [address] [place] [phone] David Bernstein MD [address] [place], [place] [address] 10/03/2025 2:45 PM EDT Office Visit [facility] C[facility] 3000 [facility] [address] [place] [address] Yon Govea MD 1720 [facility] [address] [place] [address] 06/14/2026 1:30 PM EST Office Visit [facility] CARDI[facility] [address] [place] [address] [place] [address] Wojciech Flores MD [address] [facility] [address] [place] [address] documented as of this encounter Visit Diagnoses Not on filedocumented in this encounter Care Teams Acute Care Surgeon Relationship Specialty Start Date End Date Ferny Gentile MD 1210 [facility] [address] [place] [address] PCP - General 06/11/15 documented as of this encounter
--- OUTSIDE RECORDS SUMMARY | 2025-03-24 10:11 | XMS_ITS | Encounter Summary ---
Author Organization [employer] ([place], [place], [place], [place], [place]) Address [address] [place] [address] Care Team Providers Care Teacher Lip Reading Name Role Phone Seferino Ferny Primary Care Provider [phone] Encounter Details Date Type Department Care Team (Late st Contact Info) Description 12/15/2018 Transcribed Document [facility] [place] [address] ProviderArt MD [address] [place] [address] Social History Tobacco Use Types Packs/Day [...] - Medical Enoxaparin 40 mg, SubCutaneous, Inj, [id number], Routine, Start 12/15/18 9:00:00 EDT (MATTHEW BANEGAS) [...] Q12H Lovenox, 40 mg= 0.4 mL, SubCutaneous, [id number] magnesium oxide, 400 mg= 1 Tab, Oral, [...] on filedocumented in this encounter Care Teams Teacher Lip Reading Relationship Specialty Start Date End Date Ferny Gentile [address] [place] [address] PCP - General 05/22/22 documented as of this encounter
--- OUTSIDE RECORDS SUMMARY | 2025-03-24 10:11 | XMS_ITS | Encounter Summary ---
Author Organization [facility] Address [address] [place] [address] Care Team Providers Care Flame Hardening Machine Operator Name Role Phone Ferny Gentile MD Primary Care Provider [phone] Encounter Details Date Type Department Care Team (Late st Contact Info) Description 02/24/2025 Anticoagulation Visit [facility] [address] [place] [address] Dayron Diallo, Firer Locomotive Crane Social History Tobacco Use Types Packs/Day Years [...] this encounter Progress Notes * Dayron Diallo, Firer Locomotive Crane - 02/24/2025 11:24 AM EDT [facility] Progress Note Patient Demographics Method of INR reporting: ACELIS HOME MONITOR Estimated OOP Cost: Indication: Paroxsymal Atrial Fibrillation (I48.0) Referring Provider Wojciech Flores MD Reason patient is not on a DOAC: Undetermined Goal INR: 2-3 Warfarin Start Date Fall 2014 Reason patient is not on home monitor: [id number]: CHF (1), HTN (1), Age >74 (2), [...] Inc GLV Medrol APAP Date 02/08 02/17 02/24 Total Weekly Dose 52.5 mg 52.5 mg 52.5 mg INR 1.9 2.7 1.8 Notes Patient Contact Information Verbal release: Signed 06/29/19 -- May speak with Litzy Naranjo Preferred contact number: Alternative contact number(s): [phone] (Litzy'lesley Mobile) Patient Appropriate for WarfNoCall ? No Preferred contact name: Luz Skaggs Alternative contact name(s): Litzy Naranjo (Daughter) Preferred contact relation: Self Lab contact information (if applicable): Subjective Findings Drug Interactions Dietary Findings Historical: acetaminophen, coenzyme Q10, ezetimibe, furosemide, methotrexate, pantoprazole Historical GLV intake (11/06/23): 1-2x weekly New (including OTC): None GLV changes this encounter: Three servings Alcohol and Tobacco Historical: None New: None Patient Findings Positives: Change in diet/appetite Negatives: Signs/symptoms of thrombosis, Signs/symptoms of bleeding, Laboratory test error suspected, Change in health, Change in alcohol use, Change in activity, Upcoming invasive procedure, Emergency department visit, Upcoming dental procedure, Missed doses, Extra doses, Change in medications, Hospital admission, Bruising, Other complaints Comments: Patient had 3 servings of GLV this past week. Patient states she had a large caesar saladand green beans. Patient is surprised with INR result. Patient picked up enoxaparin. All other findings negative per patient. Assessment and Plan: INR was slightly sub therapeutic at 1.8 (2.0-3.0). Per Radha Etienne PharmD Instructed patient to take warfarin 7.5 mg tonight, then DATE 02/25/25: Hold warfarin 5 days Date 02/26/25: Hold warfarin, enoxaparin 80 mg subcut PM only Date 02/27/25: Hold warfarin, enoxaparin 80 mg subcut Q12H Date 02/28/25: Hold warfarin, enoxaparin 80 mg subcut Q12H Date 03/01/25: Hold warfarin, enoxaparin 80 mg subcut AM only DATE 03/02/25: Procedure, Warfarin 10 mg (boosted dose) evening of procedure if okay with surgeon Date 03/03/25: Resume maintenance dose Warfarin 7.5 mg daily and enoxaparin 80 mg subcut q12h Date 03/04/25: Continue warfarin 7.5 mg maintenance regimen and inject enoxaparin 80 mg subcut q12h DATE : INR recheck Recheck INR in 1 week, 03/06. Patient prefers testing Fridays. Verbal and written information provided. Luz Skaggs expresses understanding by teach back andhas no further questions at this time. Dayron Diallo [facility] 02/24/2025 14:42 EDT I, Radha Etienne, MadisonD, have reviewed the note in full and agree with the assessment and plan. 02/24/25 15:43 EDT documented in this encounter Plan of Treatment Upcoming Encounters Date Type Department Care Team (Late st Contact Info) Description 06/30/2025 11:30 AM EST Office Visit [facility] 330 [facility] 100 [place] [address] David Bernstein MD 330 [facility] 100 [place] [address] 10/03/2025 2:45 PM EDT Office Visit [facility] CARDIOLOGY 3000 [facility] [address] [place] [address] Yon Govea MD 1720 [facility] 400 [place], [place] [address] 06/14/2026 1:30 PM EST Office Visit [facility] CARDIOLOGY [address] [place] [address] [place] [address] Wojciech Flores MD 1720 [facility] E [facility] 400 [place] [address] documented as of this encounter Procedures Procedure Name Priority Date/Time Associated Diagnosis Comments PROTIME-INR Routine 02/24/2025 documented in this encounter Results * Protime-INR (02/24/2025) INR 1.80 Blood 02/24/2025 us Historical Provider LAB BLOOD ORDERABLES Agata l Result documented in this encounter Visit Diagnoses Not on filedocumented in this encounter Care Teams Flame Hardening Machine Operator Relationship Specialty Start Date End Date Ferny Gentile MD [facility]0 [facility] [address] [place] [address] PCP - General 06/11/15 documented as of this encounter
--- OUTSIDE RECORDS SUMMARY | 2025-03-24 10:11 | XMS_ITS | Encounter Summary ---
Author Organization [employer] ([place], [place], [place], [place], [place]) Address [address] [place] [address] Care Team Providers Care Supplier Quality Manager Name Role Phone Ferny Gentile Primary Care Provider [phone] Encounter Details Date Type Department Care Team (Late st Contact Info) Description 12/15/2018 Transcribed Document [facility] [place] [facility] [place] Family [place] [facility] [place] [address] ProviderArt MD [address] [place] [address] Social History Tobacco Use Types Packs/Day [...] Historical ProviderMD - 12/15/2018 2:[address] Reporter Details Entered On: 12/15/2018 1:35 EDT Performed [...] on filedocumented in this encounter Care Teams Supplier Quality Manager Relationship Specialty Start Date End Date Ferny Gentile [address] [place] [address] PCP - General 05/22/22 documented as of this encounter
--- OUTSIDE RECORDS SUMMARY | 2025-03-24 10:11 | XMS_ITS | Encounter Summary ---
Author Organization [employer] ([place], [place], [place], [place], [place]) Address [address] [place] [address] Care Team Providers Care Stone Decorator Name Role Phone Sakina Gentilet Primary Care Provider [phone] Encounter Details Date Type Department Care Team (Late st Contact Info) Description 12/14/2018 Transcribed Document [facility] [place] [address] ProviderArt MD [address] [place] [address] Social History Tobacco Use Types Packs/Day [...] 12/14/2018 14:53 EDT by NICHOLE ARIZMENDI Care Management-Beater Tender Care Management Progress Note Discharge Arrangements : [...] Medical Necessity : Yes NICHOLE ARIZMENDI, Care Management-Beater Tender - 12/14/2018 14:53 EDT Electronically signed by Marilou [facility] Conversion Certified Detention Deputy Cerner at 08/18/2022 11:26 AM CDT documented in this encounter Plan of Treatment Not on file documented as of this encounter Visit Diagnoses Not on filedocumented in this encounter Care Teams Stone Decorator Relationship Specialty Start Date End Date Ferny Gentile [address] [place] [address] PCP - General 05/22/22 documented as of this encounter
--- OUTSIDE RECORDS SUMMARY | 2025-03-24 10:11 | XMS_ITS | Encounter Summary ---
Author Organization [facility] Address [address] [place] [address] Care Team Providers Care Head Of Biology Name Role Phone Ferny Gentile MD Primary Care Provider [phone] Encounter Details Date Type Department Care Team (Late st Contact Info) Description 02/21/2025 Telephone [facility] [address] [place] [address] Karen Mace, Brand Inspector Social History Tobacco Use Types Packs/Day Years [...] encounter Miscellaneous Notes * Telephone Encounter - Karen Mace, Brand Inspector - 02/21/2025 3:12 PM EDT Counseled patient on bridge plan. Patient and her daughter verbalized understanding and have no further questions at this time. Karen Mace CPhT, Johanna 15:12 EDT 02/21/2025 * Telephone Encounter - Karen Mace Brand Inspector - 02/21/2025 8:27 AM EDT LVM to review bridge plan with patient. Karen Mace CPhT, Johanna 08:39 EDT 02/21/2025 documented in this encounter Plan of Treatment Upcoming Encounters Date Type Department Care Team (Late st Contact Info) Description 06/30/2025 11:30 AM EST Office Visit [facility] RHEUM[facility] [address] [phone] David Bernstein MD [address] [place], [place] [address] 10/03/2025 2:45 PM EDT Office Visit [facility] CARDIOLOG[facility] 3000 [facility] [address] [place] [address] Yon Govea MD 1720 [facility] [address] 400 [place], [place] [address] 06/14/2026 1:30 PM EST Office Visit [facility] CARDI[facility] [address] [place] [address] Wojciech Flores MD 1720 [facility] Bld[address] E [address] [place], [place] [address] documented as of this encounter Visit Diagnoses Not on filedocumented in this encounter Care Teams Head Of Biology Relationship Specialty Start Date End Date Ferny Gentile MD 1210 [facility] [address] [place] [address] PCP - General 06/11/15 documented as of this encounter
--- OUTSIDE RECORDS SUMMARY | 2025-03-24 10:11 | XMS_ITS | Encounter Summary ---
Author Organization [facility] Address [address] [place] [address] Care Team Providers Care Brick Layer Name Role Phone Ferny Gentile MD Primary Care Provider [phone] Encounter Details Date Type Department Care Team (Late st Contact Info) Description 03/06/2025 Anticoagulation Visit [facility] 1720 [facility] [address] [place] [address] Claudia Bauer, PharmD [address]40 [place] [address] Social History Tobacco Use Types [...] Progress Notes * Claudia Bauer, PharmD - 03/06/2025 8:15 AM EST [facility] Progress Note Patient Demographics Method of INR reporting: ACELIS HOME MONITOR Estimated OOP Cost: Indication: Paroxsymal Atrial Fibrillation (I48.0) Referring Provider Wojciech Flores MD Reason patient is not on a DOAC: Undetermined Goal INR: 2-3 Warfarin Start Date Fall 2014 Reason patient is not on home monitor: [id number]: CHF (1), HTN (1), Age >74 (2), Stroke/TIA/Thromboembolism (2), and Female (1) 7: 9.6% Planned Duration of Therapy Indefinite Relevant medical history: Bleed Risk/History: No h/o bleed Tablets Strength: 5 mg (peach) Anticoagulation Clinic INR History Date 02/1805/06/2405/137 Total Weekly Dose 52.5 mg 52.5 mg [...] 2.3 3.4 2.9 Notes Rec'd 10/18 Rec'd 7/1 Rec'd 11/08 Inc GLV Medrol APAP Date 02/08 02/17 02/24 03/06 Total Weekly Dose 52.5 mg 52.5 mg 52.5 mg 32.5 mg INR 1.9 2.7 1.8 1.2 Notes Hold x 5 enox Patient Contact Information Verbal release: Signed 06/29/19 -- May speak with Litzy Naranjo Preferred contact number: Alternative contact number(s): [phone] (Litzy[employer]lesley [employer]) Patient Appropriate for WarfNoCall ? [...] Tobacco Historical: None New: None Patient Findings Negatives: Signs/symptoms of thrombosis, Signs/symptoms of bleeding, Laboratory test error suspected, Change in health, Change in alcohol use, Change in activity, Upcoming invasive procedure, Emergency department visit, Upcoming dental procedure, Missed doses, Extra doses, Change in medications, Change in diet/appetite, Hospital admission, Bruising, Other complaints Comments: Procedure went well. All current findings negative per patient and/or caregiver. Correct dosing verified. Assessment and Plan: INR is sub therapeutic at 1.2 (2.0-3.0) after 5 day hold for procedure. Instructed patient to take warfarin 10 mg today and tomorrow then warfarin 7.5 mg daily until recheck. Patient will finish enoxaparin x 2. Recheck INR in 1 week, 03/10. Patient prefers testing Fridays. Verbal and written information provided. Luz Skaggs expresses understanding by teach back andhas no further questions at this time. Claudia Bauer, Garret 03/06/2025 08:21 EST documented in this encounter Plan of Treatment Upcoming Encounters Date Type Department Care Team (Late st Contact Info) Description 06/30/2025 11:30 AM EST Office Visit [facility] RHEUMATOLOGY [address] [place] [address] David Bernstein MD [address] [place] [address] 10/03/2025 2:45 PM EDT Office Visit [facility] CARDIOLOGY 3000 [facility] [address] [place] [address] Yon Govea MD 1720 [facility] [address] [place], [place] [id number] 06/14/2026 1:30 PM EST Office Visit [facility] CARDIOLOGY [address] [place] [address] [place] [address] Wojciech Flores MD 1720 [facility] B[address] E [address] [place], [place] [address] documented as of this encounter Procedures Procedure Name Priority Date/Time Associated Diagnosis Comments PROTIME-INR Routine 03/06/2025 documented in this encounter Results * Protime-INR (03/06/2025) INR 1.20 Blood Historical Provider LAB BLOOD ORDERABLES Agata l Result documented in this encounter Visit Diagnoses Not on filedocumented in this encounter Care Teams Brick Layer Relationship Specialty Start Date End Date Ferny Gentile MD 1210 [facility] [address] [place] [address] PCP - General 06/11/15 documented as of this encounter
--- OUTSIDE RECORDS SUMMARY | 2025-03-24 10:11 | XMS_ITS | Encounter Summary ---
Author Organization [employer] ([place], [place], [place], [place], [place]) Address [address] [place] [address] Care Team Providers Care Driver Guide Name Role Phone Ferny Gentile Primary Care Provider [phone] Encounter Details Date Type Department Care Team (Late st Contact Info) Description 12/14/2018 Transcribed Document [facility] [place] [facility] [place] [address] ProviderArt MD [address] [place] [address] Social History Tobacco Use Types Packs/Day [...] LOKI BLANTON OTR/Buck - 12/15/2018 10:58 EDT Plastics Scientist Goals, OT Other LTG Grid Goal #1 [...] on filedocumented in this encounter Care Teams Driver Guide Relationship Specialty Start Date End Date Ferny Gentile [address] [place] [address] PCP - General 05/22/22 documented as of this encounter
--- OUTSIDE RECORDS SUMMARY | 2025-03-24 10:11 | XMS_ITS | Encounter Summary ---
Author Organization [employer] ([place], [place], [place], [place], [place]) Address [address] [place] [address] Care Team Providers Care Quality Assurance Group Leader Name Role Phone SeferinoSakinat Primary Care Provider [phone] Encounter Details Date Type Department Care Team (Late st Contact Info) Description 12/15/2018 Transcribed Document [facility] [place] [facility] [place] [address] ProviderArt MD [address] [place] [address] Social History Tobacco Use Types Packs/Day [...] on filedocumented in this encounter Care Teams Quality Assurance Group Leader Relationship Specialty Start Date End Date Ferny Gentile [address] [place] [address] PCP - General 05/22/22 documented as of this encounter
--- OUTSIDE RECORDS SUMMARY | 2025-03-24 10:11 | XMS_ITS | Encounter Summary ---
Author Organization [employer] ([place], [place], [place], [place], [place]) Address [address] [place] [address] Care Team Providers Care Physical Medicine Specialist Name Role Phone Ferny Gentile Primary Care Provider [phone] Encounter Details Date Type Department Care Team (Late st Contact Info) Description 12/14/2018 Transcribed Document [facility] [place] [facility] [place] [address] ProviderArt MD [address] [place] [address] Social History Tobacco Use Types Packs/Day [...] SKAGGS /Sex: 1940 Female Med Rec #: [id number] Physician: MATTHEW BANEGAS MD-ORTheo Financial #: [id number] Pt. Type: I Room/Bed: [facility]/ Admit/Disch: 12/14/18 04:48:00 - Institution: [facility] Case Attendance Entry 1 Entry 2 Entry 3 Case Attendee MATTHEW BANEGAS LUNSFORD, JAMES, CMA GARRETT JARAMILLO, RM MORALEZ-ORT Role Performed Surgeon/Proceduralist, CMA/Nurse Manager Trade Physician rehabilitation assistant First Time In 12/14/18 08:10:00 12/14/18 [...] Carrero, ELENA BRAR CHAD, RAVEN Role Performed Fashion Artist, First Scrub, Family Readiness Support Assistant, First Time In 12/14/18 07:30:00 12/14/18 07:30:00 [...] ATTENDEE Ryanne Buchanan Hill, Philip A, Rn Registered Nurse Post Partum Role Performed Vendor Operator Scrub, First Time In 12/14/18 08:10:00 12/14/18 [...] LEININGER, SUSAN, RN Role Performed Scrub, Second Fashion Artist, Second Time In 12/14/18 08:15:00 12/14/18 09:20:00 Time Out 12/14/18 09:05:00 12/14/18 09:31:00 Procedure Hip Total Anterior Hip Total Anterior Approach Approach Other Attendee Superficial Wound Closed By: Last Modified By: Tiffany Carrero RN Wellnitz, Sara, RN 12/14/18 09:31:30 12/14/18 09:31:30 [facility] Case Attendance Audit 12/14/18 09:31:50 Asphalt Surface Heater Operator: LUIS Modifier: LUIS 3 <+> Role Performed 3 <*> Procedure Hip Total Anterior Approach 12/14/18 09:31:30 Asphalt Surface Heater Operator: LUIS Modifier: LUIS 1 <*> Procedure Hip [...] Procedure Hip Total Anterior Approach 12/14/18 09:21:19 Asphalt Surface Heater Operator: LUIS Modifier: LUIS 4 <+> Time Out 4 <*> Procedure Hip Total Anterior Approach <+> 11 Case Attendee <+> 11 Role Performed <+> 11 Time In <+> 11 Procedure 12/14/18 09:19:23 Asphalt Surface Heater Operator: LUIS Modifier: LUIS 8 <+> Time Out 8 <*> Procedure Hip Total Anterior Approach 12/14/18 09:10:59 Asphalt Surface Heater Operator: WELLNISA Modifier: WELLNISA 5 <+> Time Out 5 <*> Procedure Hip Total Anterior Approach <+> 10 Case Attendee <+> 10 Role Performed <+> 10 Time In <+> 10 Time Out <+> 10 Procedure 12/14/18 09:04:01 Asphalt Surface Heater Operator: REJIA Modifier: WELLNISA 1 <+> Time Out 1 <*> Procedure Hip Total Anterior Approach 7 <+> Time Out 7 <*> Procedure Hip Total Anterior Approach <+> 9 Case Attendee <+> 9 Role Performed <+> 9 Time In <+> 9 Procedure 12/14/18 08:38:47 Asphalt Surface Heater Operator: REJIA Modifier: WELLNISA 6 <+> Time Out 6 <*> Procedure Hip Total Anterior Approach 12/14/18 08:37:27 Asphalt Surface Heater Operator: REJIA Modifier: WELLNISA 3 <*> Time In 12/14/18 07:30:00 3 <*> Procedure Hip Total Anterior Approach 12/14/18 08:11:28 Asphalt Surface Heater Operator: REJIA Modifier: WELLNISA 7 <*> Time In 12/14/18 07:30:00 7 <*> Procedure Hip Total Anterior Approach <+> 8 Case Attendee <+> 8 Role Performed <+> 8 Time In <+> 8 Procedure 12/14/18 08:10:47 Asphalt Surface Heater Operator: REJIA Modifier: WELLNISA 1 <*> Time In 12/14/18 07:30:00 1 <*> Procedure Hip Total Anterior Approach 12/14/18 08:10:28 Asphalt Surface Heater Operator: REJIA Modifier: WELLNISA 1 <+> Time In [...] [facility] Case Times Audit 12/14/18 09:31:27 Asphalt Surface Heater Operator: LUIS Modifier: REJIA <+> 1 Out Room Time <+> 1 Stop Time 12/14/18 09:19:35 Asphalt Surface Heater Operator: LUIS Modifier: WELLMARKOA <+> 1 Stop Time 12/14/18 08:10:57 Asphalt Surface Heater Operator: LUIS Modifier: WELLMARKOA <+> 1 Start Time [...] 08:37:55 [facility] Cautery Audit 12/14/18 08:37:55 Asphalt Surface Heater Operator: LUIS Modifier: LUIS 1 <*> Cautery Type [...] Skin Condition Unchanged After Cautery 12/14/18 08:10:52 Asphalt Surface Heater Operator: LUIS Modifier: WELLMARKOA <+> 2 Cautery Type [...] 08:07:35 [facility] Communication Audit 12/14/18 08:13:51 Asphalt Surface Heater Operator: LUIS Modifier: LUIS <+> 1 Date and [...] Counts Performed By Count Performed By ELENA VICTRO BENJAMIN P (Scrub) Count Performed By Tiffany Carrero RN Wellnitz, Sara, RN (RN) Last Modified By: Tiffany Carrero RN Wellnitz, Sara, MALISSA 12/14/18 08:07:55 12/14/18 09:10:01 [facility] Counts Verification Audit 12/14/18 09:10:01 Asphalt Surface Heater Operator: LUIS Modifier: LUIS 2 <*> Procedure Hip [...] [facility] Counts Final Audit 12/14/18 09:11:14 Asphalt Surface Heater Operator: MEREMARKOJessi Modifier: MEREMARKOA 1 <*> Procedure Hip [...] IntraOp Drains and Tubes Audit 12/14/18 08:10:39 Asphalt Surface Heater Operator: MEREMARKOJessi Modifier: LUIS 1 <*> Device Type [...] RN 12/14/18 08:12:06 [facility] General Case Hardwood Faller 1 Case Information OR OR 02 [facility] Case Level 1 Room Verified Yes Wound [...] SZ STEM HIP CLLR ORGN CX Identification [id number] Description Implant Quantity 1 1 1 Implant Site LEFT HIP LEFT HIP LEFT HIP Implant Identification Model Number Implant Identification Serial Number Implant [id number] Identification Lot Number Implant Paxeon Reconstruction Paxeon Reconstruction Paxeon Reconstruction Identification General House Worker Name: Implant [id number] Identification Catalog Number Implant Size Implant Has an Yes Yes Yes Expiration Date Implant Expiration 08/02/23 10/02/23 09/01/23 Date Wasted Radioactive Material Time Implanted Tissue Implant Continue for Tissue Implant Documentation Tissue Identification Number Graft Prep Per General House Worker Instructions: Tissue Preparation Method: Reconstitution Solution: Reconstitution Solution Lot Number Reconstitution Solution Expiration Date: Thawing Solution Thawing Solution Lot Number Thawing Solution Expiration Date Preparation Materials, Other Preparation Materials, Other Lot Number Preparation Materials, Other Expiration Date Tissue Prepared/Processed By General House Worker Paperwork Completed Implant Type Comment Last Modified By: Tiffany Carrero, Tiffany Garcia RN Wellnitz, Sara, RN 12/14/18 08:31:02 12/14/18 08:36:29 12/14/18 09:06:08 Entry 4 Type Implant (Synthetic) Implant Log Implant Type Hardware Tissue Implant Type Implant HEAD FEM CERC SZ 36MM Identification [id number] Description Implant Quantity 1 Implant Site LEFT HIP Implant Identification Model Number Implant Identification Serial Number Implant [id number] Identification Lot Number Implant Paxeon Reconstruction Identification General House Worker Name: Implant [id number] Identification Catalog Number Implant Size Implant Has an Yes Expiration Date Implant Expiration 06/03/23 Date Wasted Radioactive Material Time Implanted Tissue Implant Continue for Tissue Implant Documentation Tissue Identification Number Graft Prep Per General House Worker Instructions: Tissue Preparation Method: Reconstitution Solution: Reconstitution Solution Lot Number Reconstitution Solution Expiration Date: Thawing Solution Thawing Solution Lot Number Thawing Solution Expiration Date Preparation Materials, Other Preparation Materials, Other Lot Number Preparation Materials, Other Expiration Date Tissue Prepared/Processed By General House Worker Paperwork Completed Implant Type Comment Last Modified By: Tiffany Carrero RN 12/14/18 09:06:08 [facility] Implant Log Audit 12/14/18 09:06:08 Asphalt Surface Heater Operator: LUIS Modifier: WELLNISA <+> 3 Implant Identification Description <+> 3 Implant Identification Lot Number <+> 3 Implant Identification General House Worker Name: <+> 3 Implant Expiration Date <+> 3 Implant Identification Catalog Number <+> 4 Implant Identification Description <+> 4 Implant Identification Lot Number <+> 4 Implant Identification General House Worker Name: <+> 4 Implant Expiration Date <+> 4 Implant Identification Catalog Number 12/14/18 08:36:29 Asphalt Surface Heater Operator: WELLNISA Modifier: WELLNISA <+> 2 Implant Identification Description <+> 2 Implant Identification Lot Number <+> 2 Implant Identification General House Worker Name: <+> 2 Implant Expiration Date <+> 2 Implant Identification Catalog Number 12/14/18 08:31:02 Asphalt Surface Heater Operator: WELLNISA Modifier: WELLNISA <+> 1 Implant Identification Description <+> 1 Implant Identification Lot Number <+> 1 Implant Identification General House Worker Name: <+> 1 Implant Expiration Date <+> 1 Implant Identification Catalog Number 12/14/18 08:20:19 Asphalt Surface Heater Operator: WELLNISA Modifier: WELLNISA <+> 4 Implant Has [...] vancomycin 1Gm vial - ANESTHETIC 1000MG/10 ML [id number] COCKTAIL-BANEGAS [id number] Combo Med List Time Administered Route of [...] [facility] Time Out Audit 12/14/18 08:17:05 Asphalt Surface Heater Operator: LUIS Modifier: LUIS 1 <*> Time Out Pause Time 12/14/18 08:08:00 1 <*> Procedure to be Performed Hip Total Anterior Approach [facility] Intra[facility] X-Ray and Images Entry 1 X-Ray/Imaging Type Fluoroscopy Fluoroscopy Type C-Arm Site LEFT HIP Associate Media Planner Name Ryanne Buchanan, Registered Nurse Post Partum Protective Devices Yes Used Last Modified By: [...] on filedocumented in this encounter Care Teams Physical Medicine Specialist Relationship Specialty Start Date End Date Ferny Gentile [address] [place] [address] PCP - General 05/22/22 documented as of this encounter
--- OUTSIDE RECORDS SUMMARY | 2025-03-24 10:11 | XMS_ITS | Encounter Summary ---
Author Organization [employer] ([place], [place], [place], [place], [place]) Address [address] [place] [address] Care Team Providers Care Drawer In Jacquard Loom Name Role Phone Douglas Gentileght Primary Care Provider [phone] Encounter Details Date Type Department Care Team (Late st Contact Info) Description 12/15/2018 Transcribed Document [facility] [place] [facility] [place] [address] ProviderArt MD [address] [place] [address] Social History Tobacco Use Types Packs/Day [...] Warfarin Discharge Ins : N/A JUAN ANTONIO WIHTLEY RN - 12/15/2018 9:28 EDT Electronically signed by Brina Zamarripa Conversion Qualified Craft Worker Electrician Cerner at 08/18/2022 11:11 AM CDT documented in this encounter Plan of Treatment Not on file documented as of this encounter Visit Diagnoses Not on filedocumented in this encounter Care Teams Drawer In Jacquard Loom Relationship Specialty Start Date End Date Ferny Gentile [address] [place] [address] PCP - General 05/22/22 documented as of this encounter
--- OUTSIDE RECORDS SUMMARY | 2025-03-24 10:11 | XMS_ITS | Encounter Summary ---
Author Organization [employer] ([place], [place], [place], [place], [place]) Address [address] [place] [address] Care Team Providers Care Sweet Potato Disintegrator Name Role Phone Ferny Gentile Primary Care Provider [phone] Encounter Details Date Type Department Care Team (Late st Contact Info) Description 12/02/2018 Transcribed Document [facility] [place] [facility] [address] ProviderArt MD [address] [place] [address] Social History Tobacco Use Types Packs/Day [...] ipratropium 21 mcg/inh (0.03%) nasal spray 2 [place], Nasal, BID kynsol magnesium oxide 400 mg [...] Lymph # 1.40 K/uL 12/02/2018 12:03 EDT Foard % 17.1 % (High) 12/02/2018 12:03 EDT Foard # 1.07 K/uL (High) 12/02/2018 12:03 EDT [...] Appearance CLEAR2 12/02/2018 12:03 EDT Urine Specific [place] 1.013 12/02/2018 12:03 EDT Urine pH Dipstick [...] nitrites, neg LE Electronically signed by Interface, [facility] Conversion Lead Business Systems Analyst Cerner at 08/18/2022 11:07 AM CDT documented in this encounter Plan of Treatment Not on file documented as of this encounter Visit Diagnoses Not on filedocumented in this encounter Care Teams Sweet Potato Disintegrator Relationship Specialty Start Date End Date Seferino Ferny [address] [place] [address] PCP - General 05/22/22 documented as of this encounter
--- OUTSIDE RECORDS SUMMARY | 2025-03-24 10:11 | XMS_ITS | Encounter Summary ---
Author Organization [facility] Address [address] [place] [address] Care Team Providers Care Crm Architect Name Role Phone Ferny Gentile MD Primary Care Provider [phone] Encounter Details Date Type Department Care Team (Latest Contact Info) Description 02/21/2025 Travel Social History Tobacco Use Types Packs/Day [...] 06/30/2025 11:30 AM EST Office Visit [facility] RHEUMATOLOGY [address] [facility] [address] [place] [address] David Bernstein MD [address] [facility] [address] [place] [address] 10/03/2025 2:45 PM EDT Office Visit [facility] CARDI[facility] [address] [facility] [address] [place] [address] Yon Govea MD [address] [facility] [address] [place] [address] 06/14/2026 1:30 PM EST Office Visit [facility] CARDIOLOGY [address] [place] [address] [place] [address] Wojciech Flores MD [address] [facility] [address] [place], [place] [address] documented as of this encounter Visit Diagnoses Not on filedocumented in this encounter Care Teams Crm Architect Relationship Specialty Start Date End Date Ferny Gentile MD [address] [place] [address] [facility] [address] [place] [address] PCP - General 06/11/15 documented as of this encounter
--- OUTSIDE RECORDS SUMMARY | 2025-03-24 10:11 | XMS_ITS | Encounter Summary ---
Author Organization [employer] ([place], [place], [place], [place], [place]) Address [address] [place] [address] Care Team Providers Care Automatic Tire Tester Name Role Phone Ferny Gentile Primary Care Provider [phone] Encounter Details Date Type Department Care Team (Late st Contact Info) Description 12/15/2018 Transcribed Document [facility] [place] [facility] [place] [address] ProviderArt MD [address] [place] [address] Social History Tobacco Use Types Packs/Day [...] filedocumented in this encounter Care Teams Automatic Tire Tester Relationship Specialty Start Date End Date SeferinoFerny [address] [place] [address] PCP - General 05/22/22 documented as of this encounter
--- OUTSIDE RECORDS SUMMARY | 2025-03-24 10:11 | XMS_ITS | Encounter Summary ---
[facility] Organization [facility] Address [address] [place] [address] Care Team Providers Care Caramel Candy Maker Name Role Phone Ferny Gentile MD Primary Care Provider [phone] Reason for Visit * Reason Onset Date Comments Medical Clearance 02/21/2025 Encounter Details Date Type Department Care Team (Late st Contact Info) Description 02/21/2025 Telephone [facility] CARDIOLOGY [address] [facility] [address] [place] [address] Wojciech Flores MD [address] [facility] [address] [place] [address] Medical Clearance Social History Tobacco Use Types Packs/Day Years [...] encounter Miscellaneous Notes * Telephone Encounter - Rukhsana Mariee RN - 02/21/2025 3:51 PM EDT Risk assessment sent by EP staff on 02/20/25 * Telephone Encounter - Dionna Ariza APRN - 02/21/2025 12:51 PM EDT Acceptable cardiac risk * Telephone Encounter - Tere Wallace RN - 02/21/2025 8:41 AM EDT Received cardiac clearance request from [facility] for a colonoscopy on 03/02. As noted in the 02/10/25 telephone encounter, an anticoagulation plan was arranged and approved by Dr. Govea with EP. documented in this encounter Plan of Treatment Upcoming Encounters Date Type Department Care Team (Late st Contact Info) Description 06/30/2025 11:30 AM EST Office Visit [facility] [address] [facility] [address] [place] [address] David Bernstein MD [address] [facility] [address] [place] [address] 10/03/2025 2:45 PM EDT Office Visit [facility] [address] [facility] [address] [place] [address] Yon Govea MD [address] [facility] [address] [place] [address] 06/14/2026 1:30 PM EST Office Visit [facility] CARD[facility] [address] [place] [address] [place] [address] Wojciech Flores MD [address] [facility] [address] [place] [address] documented as of this encounter Visit Diagnoses Not on filedocumented in this encounter Care Teams Caramel Candy Maker Relationship Specialty Start Date End Date Ferny Gentile MD [address] [facility] [address] [place] [address] PCP - General 06/11/15 documented as of this encounter
--- OUTSIDE RECORDS SUMMARY | 2025-03-24 10:11 | XMS_ITS | Encounter Summary ---
[facility] [address] [place] [address] Care Team Providers Care Sole Leveler Name Role Phone Ferny Gentile MD Primary Care Provider [phone] Encounter Details Date Type Department Care Team (Late st Contact Info) Description 02/10/2025 Telephone [facility] [address] [place] [address] Dayron Diallo, Mobility Developer Social History Tobacco Use Types Packs/Day Years [...] encounter Miscellaneous Notes * Telephone Encounter - Claudia Bauer PharmD - 02/13/2025 12:17 PM EDT Prescription for enoxaparin sent to pharmacy Claudia Bauer PharmD 02/13/2025 12:17 EDT * Telephone Encounter - Spike GeigernzieVASQUEZ - 02/10/2025 1:[address] Govea, We were recently informed that Luz Skaggs is undergoing a colonoscopy on 03/02/[address] Cody Quiroz at [facility]. Dr. Quiroz deferred perioperative warfarin plan to the patient's hog feeder. Luz Skaggs is on warfarin for paroxysmal 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 (CHADsVASc 7); therefore, bridgetherapy is recommended. However, Ms. Skaggs's most recent Scr is from May 2024 (CrCl ~ 47 mL/min). It is recommended to obtain an updated Scr (within 90 days) prior to initiating Lovenox. Weight: 81.2 kg / Scr 1.16 mg/dL (06/15/24) Creatinine clearance cannot be calculated (Patient's most recent lab result is older than the maximum 30 days allowed.) DATE 02/25/25: Hold warfarin 5 days Date [...] 03/04/25: Continue warfarin 7.5 mg maintenance regimen DATE : INR recheck Please advise if you are agreeable to plan above or if you prefer an alternative approach to Luz Skaggs anticoagulation plan for the upcoming procedure. Josefina Geiger RPH 02/10/2025 13:50 EDT [facility] phone fax * Telephone Encounter - Dayron Diallo, Mobility Developer - 02/10/2025 9:30 AM EDT Per Nasreen at Dr. Quiroz office the warfarin hold prior to colonoscopy on 03/02 is determined by the patient's hog feeder. Dayron Diallo [facility] 02/10/2025 09:31 EDT documented in this encounter Plan of Treatment Upcoming Encounters Date Type Department Care Team (Late st Contact Info) Description 06/30/2025 11:30 AM EST Office Visit [facility] RHEUMATOLOGY [address] [address] David Bernstein MD [address] [facility] [address] [place] [address] 10/03/2025 2:45 PM EDT Office Visit [facility] [address] [facility] [address] [place] [address] Yon Govea MD [address] [facility] [address] [place] [address] 06/14/2026 1:30 PM EST Office Visit [facility] [address] [place] [address] [place] [address] Wojciech Flores MD [address] [facility] [address] [place] [address] documented as of this encounter Visit Diagnoses Not on filedocumented in this encounter Care Teams Sole Leveler Relationship Specialty Start Date End Date Ferny Gentile MD 12[address] [facility] [address] [place] [address] PCP - General 06/11/15 documented as of this encounter
--- OUTSIDE RECORDS SUMMARY | 2025-03-24 10:11 | XMS_ITS | Encounter Summary ---
[facility] Address [address] [place] [address] Care Team Providers Care Professor Of Literacy Name Role Phone Ferny Gentile MD Primary Care Provider [phone] Reason for Visit * Reason Onset Date Comments Med Refill 03/07/2025 Encounter Details Date Type Department Care Team (Late st Contact Info) Description 03/07/2025 Refill [facility] [address] [facility] [address] [place] [address] Claudia Bauer, PharmD [address] [place] [address] Social History Tobacco Use Types Packs/Day Years [...] 08/2022 Potentially Unsafe Housing Conditions Not on rule e 08/05/2022 Disabilities Answer Date Recorded Difficulty [...] Telephone Encounter - Claudia Bauer PharmD - 03/07/2025 3:56 PM EST Refill for warfarin sent to pharmacy on file per protocol Claudia Bauer PharmD 03/07/2025 15:57 EST documented in this encounter Plan of Treatment Upcoming Encounters Date Type Department Care Team (Late st Contact Info) Description 06/30/2025 11:30 AM EST Office Visit [facility] RHEUM[facility]OLOG[facility] [address] [address] David Bernstein MD [address] [address] 10/03/2025 2:45 PM EDT Office Visit [facility] [address] [facility] [address] [place] [address] Yon Govea MD [address] [facility] [address] [place] [address] 06/14/2026 1:30 PM EST Office Visit [facility] [address] [place] [address] [address] [place] [address] Wojciech Flores MD [address] [facility] [address] [place], [place] [address] documented as of this encounter Visit Diagnoses Not on filedocumented in this encounter Care Teams Professor Of Literacy Relationship Specialty Start Date End Date Ferny Gentile MD [address] [facility] [address] [place] [address] PCP - General 06/11/15 documented as of this encounter
--- OUTSIDE RECORDS SUMMARY | 2025-03-24 10:11 | XMS_ITS | Encounter Summary ---
Author Organization [employer] ([place], [place], [place], [place], [place]) Address [address] [place] [address] Care Team Providers Care Medicare Specialist Name Role Phone Ferny Gentile Primary Care Provider [phone] Encounter Details Date Type Department Care Team (Late st Contact Info) Description 12/14/2018 Transcribed Document [facility] [place] Family [place] [facility] [place] [address] ProviderArt MD [address] [place] [address] Social History Tobacco Use Types Packs/Day [...] ipratropium 42 mcg/inh (0.06%) nasal spray 2 [place], Nasal, BID K[place] , Oral, Daily magnesium [...] SPENT 45 MINUTES Electronically signed by Marilou [facility] Conversion Deckhand Engineer Cerner at 08/18/2022 11:32 AM CDT documented in this encounter Plan of Treatment Not on file documented as of this encounter Visit Diagnoses Not on filedocumented in this encounter Care Teams Medicare Specialist Relationship Specialty Start Date End Date Ferny Gentile [address] [place] [address] PCP - General 05/22/22 documented as of this encounter
--- OUTSIDE RECORDS SUMMARY | 2025-03-24 10:11 | XMS_ITS | Encounter Summary ---
Author Organization [employer] ([place], [place], [place], [place], [place]) Address [address] [place] [address] Care Team Providers Care Urban Planning Teacher Name Role Phone Douglas Gentileght Primary Care Provider [phone] Encounter Details Date Type Department Care Team (Late st Contact Info) Description 12/14/2018 Transcribed Document [facility] [place] [facility] [place] [place] [address] ProviderArt MD [address] [place] [address] Social History Tobacco Use Types Packs/Day [...] on filedocumented in this encounter Care Teams Urban Planning Teacher Relationship Specialty Start Date End Date Ferny Gentile [address] [place] [address] PCP - General 05/22/22 documented as of this encounter
--- OUTSIDE RECORDS SUMMARY | 2025-03-24 10:11 | XMS_ITS | Encounter Summary ---
Author Organization [employer] ([place], [place], [place], [place], [place]) Address [address] [place] [address] Care Team Providers Care Hooker Inspector Name Role Phone Ferny Gentile Primary Care Provider [phone] Encounter Details Date Type Department Care Team (Late st Contact Info) Description 12/15/2018 Transcribed Document [facility] [place] [facility] [place] [address] ProviderArt MD [address] [place] [address] Social History Tobacco Use Types Packs/Day [...] on filedocumented in this encounter Care Teams Hooker Inspector Relationship Specialty Start Date End Date Ferny Gentile [address] [place] [address] PCP - General 05/22/22 documented as of this encounter
--- OUTSIDE RECORDS SUMMARY | 2025-03-24 10:11 | XMS_ITS | Encounter Summary ---
[facility] Address [address] [place] [address] Care Team Providers Care Poultry Killer Name Role Phone Ferny Gentile MD Primary Care Provider [phone] Encounter Details Date Type Department Care Team (Late st Contact Info) Description 03/10/2025 Anticoagulation Visit [facility] [address] [facility] [address] [place] [address] Claudia Bauer, PharmD [address] [place] [address] Social History Tobacco Use Types [...] Progress Notes * Claudia Bauer, PharmD - 03/10/2025 9:59 AM EST [facility] Progress Note Patient Demographics Method of INR reporting: ACELIS HOME MONITOR Estimated OOP Cost: Indication: Paroxsymal Atrial Fibrillation (I48.0) Referring Provider Wojciech Flores MD Reason patient is not on a DOAC: Undetermined Goal INR: 2-3 Warfarin Start Date Fall 2014 Reason patient is not on home monitor: [id number]: CHF (1), HTN (1), Age >74 (2), [...] Medrol APAP Date 02/08 02/17 02/24 03/06 03/10 Total Weekly Dose 52.5 mg 52.5 mg 52.5 mg 32.5 mg 57.5 mg INR 1.9 2.7 1.8 1.2 1.5 Notes Hold x 5 enox Patient Contact Information Verbal release: Signed 06/29/19 -- May speak with Litzy Naranjo Preferred contact number: Alternative contact number(s): [phone] (Litzy[employer]lesley Mobile) Patient Appropriate for WarfNoCall ? [...] Hospital admission, Bruising, Other complaints Comments: All current findings negative per patient and/or caregiver. Correct dosing verified. Assessment and Plan: INR is sub therapeutic at 1.5 (2.0-3.0). Instructed patient to take warfarin 10 mg today then warfarin 7.5 mg daily until recheck. Recheck INR in 1 week, 03/14. Patient prefers testing Fridays. Verbal and written information provided. Luz Skaggs expresses understanding by teach back andhas no further questions at this time. Claudia Bauer, Garret 03/10/2025 10:00 EST documented in this encounter Plan of Treatment Upcoming Encounters Date Type Department Care Team (Late st Contact Info) Description 06/30/2025 11:30 AM EST Office Visit [facility]HE[facility] [address] [place] [address] David Bernstein MD [address] [place], [place] [id number] 10/03/2025 2:45 PM EDT Office Visit [facility] [address] [facility] [address] [place] [address] Yon Govea MD [address] [facility] [address] [place], [place] [id number] 06/14/2026 1:30 PM EST Office Visit [facility] C[facility] [address] [place] [address] [place] [address] Wojciech Flores MD [address] [facility] [address] [place] [address] documented as of this encounter Procedures Procedure Name Priority Date/Time Associated Diagnosis Comments PROTIME-INR Routine 03/10/2025 documented in this encounter Results * Protime-INR (03/10/2025) INR 1.50 Blood us Historical Provider LAB BLOOD ORDERABLES Agata l Result documented in this encounter Visit Diagnoses Not on filedocumented in this encounter Care Teams Poultry Killer Relationship Specialty Start Date End Date Ferny Gentile MD [address] [facility] [address] [place] [address] PCP - General 06/11/15 documented as of this encounter
--- OUTSIDE RECORDS SUMMARY | 2025-03-24 10:11 | XMS_ITS | Encounter Summary ---
[facility] Address [address] [place] [address] Care Team Providers Care Septic Tank Installer Name Role Phone Ferny Gentile MD Primary Care Provider [phone] Encounter Details Date Type Department Care Team (Late st Contact Info) Description 02/08/2025 Anticoagulation Visit [facility] [address] [facility] [address] [place] [address] Claudia Bauer, PharmD [address] [place] [address] Social History Tobacco Use Types [...] Progress Notes * Claudia Bauer, PharmD - 02/08/2025 3:37 PM EDT Anticoagulation Clinic - Remote Progress [...] 2.3 3.4 2.9 Notes Medrol APAP Date 02/08 Total Weekly Dose 52.5 mg INR 1.9 Notes Phone Interview: Verbal Release Authorization signed on 06/29/2019 -- may speak with Litzy Naranjo (daughter) Tablet Strength: 5mg tablets Patient Contact Info: [phone]; Ltizy Naranjo (daughter) Patient Findings Negatives: Signs/symptoms of thrombosis, Signs/symptoms of bleeding, Laboratory test error suspected, Change in health, Change in alcohol use, Change in activity, Upcoming invasive procedure, Emergency department visit, Upcoming dental procedure, Missed doses, Extra doses, Change in medications, Change in diet/appetite, Hospital admission, Bruising, Other complaints Comments: All current findings negative per patient and/or caregiver. Correct dosing verified. Plan: INR is slightly sub therapeutic today at 1.9 (goal 2 to 3). Instructed patient to BOOST today's dose to warfarin 10 mg and continue warfarin 7.5 mg daily until recheck. Recheck INR in 1 week, 02/17/25. Patient prefers testing Thursday. Verbal information provided over the phone. Luz Skaggs RBV dosing instructions, expresses understanding by teach back, and has no further questions at this time. Claudia Bauer, PharmD 02/08/2025 15:41 EDT documented in this encounter Plan of Treatment Upcoming Encounters Date Type Department Care Team (Late st Contact Info) Description 06/30/2025 11:30 AM EST Office Visit [facility]HE[facility]Y [address] [facility] [address] [place] [address] David Bernstein MD [address] [facility] [address] [place] [address] 10/03/2025 2:45 PM EDT Office Visit [facility] CARDIOLOGY [address] [facility] [address] [place] [address] Yon Govea MD [address] [facility] [address] [place], [place] [id number] 06/14/2026 1:30 PM EST Office Visit [facility] CARDIOLOGY [address] [place] [address] [place] [address] Wojciech Flores MD [address] [facility] [address] [place], [place] [id number] documented as of this encounter Procedures Procedure Name Priority Date/Time Associated Diagnosis Comments PROTIME-INR Routine 02/08/2025 documented in this encounter Results * Protime-INR (02/08/2025) INR 1.90 Blood us Historical Provider LAB BLOOD ORDERABLES Agata l Result documented in this encounter Visit Diagnoses Not on filedocumented in this encounter Care Teams Septic Tank Installer Relationship Specialty Start Date End Date Ferny Gentile MD [address] [facility] [address] [place] [address] PCP - General 06/11/15 documented as of this encounter
--- OUTSIDE RECORDS SUMMARY | 2025-03-24 10:11 | XMS_ITS | Encounter Summary ---
Author Organization [id number] ([place], [place], [place], [place], [place]) Address [address] [place] [address] Care Team Providers Care Extension Clerk Name Role Phone Ferny Gentile Primary Care Provider [phone] Encounter Details Date Type Department Care Team (Late st Contact Info) Description 12/14/2018 Transcribed Document [facility] [place] Family Medicine [facility] [place] [address] ProviderArt MD [address] [place] [address] Social History Tobacco Use Types Packs/Day [...] Art ProviderMD - 12/14/2018 8:10 AM CDT [facility] [place] Summary Primary Physician: MATTHEW BANEGAS MD-ORTheo Finalized Date/Time: 12/14/18 10:16:12 Pt. Name: UZAIR MADERA Kit Pereira/Sex: 1940 Female Med Rec #: [id number] Physician: MATTHEW BANEGAS MD-ORTheo Financial #: [id number] Pt. Type: I Room/Bed: [facility]/ Admit/Disch: 12/14/18 04:48:00 - Institution: [facility] [place] [place] PACU Case Times Entry 1 In PACU I 12/14/18 09:35:00 Ready for PACU 12/14/18 10:10:00 Discharge Discharge from PACU 12/14/18 10:10:00 I Last Modified By: Michael Ferrer, Omar 12/14/18 10:15:34 [facility] [place] [place] PACU Acuity Entry 1 Start Time 12/14/18 10:11:00 Stop Time 12/14/18 10:15:00 Acuity Level [facility] [place] PACU Acuity I Last Modified By: Michael Ferrer Rn 12/14/18 10:15:43 Finalized By: Michael Ferrer, Rn Document Signatures Signed By: Michael Ferrer Rn 12/14/18 10:16 documented in this encounter Plan of Treatment Not on file documented as of this encounter Visit Diagnoses Not on filedocumented in this encounter Care Teams Extension Clerk Relationship Specialty Start Date End Date Ferny Gentile [address] [place] [address] PCP - General 05/22/22 documented as of this encounter
--- OUTSIDE RECORDS SUMMARY | 2025-03-24 10:11 | XMS_ITS | Encounter Summary ---
Author Organization [employer] ([place], [place], [place], [place], [place]) Address [address] [place] [address] Care Team Providers Care Retouching Operator Name Role Phone Ferny Gentile Primary Care Provider [phone] Encounter Details Date Type Department Care Team (Late st Contact Info) Description 12/15/2018 Transcribed Document [facility] [place] [facility] [place] [address] ProviderArt MD [address] [place] [address] Social History Tobacco Use Types Packs/Day [...] Art ProviderMD - 12/15/2018 11:22 [place] [address] UZAIR MADERA :1940 Visit Time:12/14/2018 Your Visit Summary Your Care Team Admitting Physician - MARIELLA DOBBS MD CHRISTENSEN, CHRISTIAN, MD-HEAVENT Attending Physician - MATTHEW BANEGAS MD-ORT Primary Care Physician - FERNY GENTILE (REF)MD-INT Referring Physician - BANEGAS, HOLINESS, MD-ORT Your Diagnosis Hip pain, chronic Discharge Vitals Temperature 37.1 ??C Heart Rate 68 Respiratory Rate 18 Blood Pressure 98/50 What to do next Instructions From Your Care Team PATIENT HAS A WALKER, PT WILL HAVE HOME THERAPY WITH [facility] [phone], PATIENT CHECKS HER OWN INR WITH HOME MACHINE, DR THACKER IS LIFTER/DRIVER Discharge Follow Up Instructions: PCP in1 week [...] Two Times A Day Pickup at [facility] enoxaparin (Lovenox 40 mg/ 0.4 [...] dose adjustments aif needed Pickup at [facility] bifidobacterium infantis (Align) 4 Milligram(s) [...] (Konsyl) Oral Every Day Pharmacy Information [facility]: [place] [address] [phone] Take your medications faithfully. Do NOT skip [...] Barley. Bulgur wheat. Millet. Bran muffins. Popcorn. Mountainside wafer crackers. Vegetables Sweet potatoes. Spinach. Kale. Artichokes. Cabbage. Broccoli. Green peas. Carrots. Squash. Fruits Berries. Pears. Apples. Oranges. Avocados. Prunes and raisins. Dried figs. Meats and Other Protein Sources [place], kidney, shrestha, and soy beans. Split peas. [...] zuri has 11 g of protein. ??? Phoenix seeds ??? 1 oz has 5.5 g [...] floor. ??? Place frequently used items in wodo-lx-dknyf places ??? Keep electrical cables out of [...] ??? Using the bathroom. ??? Using household desk pen set assembler or toxic chemicals. ??? Touching or taking [...] a day sleeper or work a shift supervisor melting. Some people have thoughts about suicide while [...] may report side effects to FDA at 6-677-QZT-7824. What other drugs will affect gabapentin? Taking gabapentin with other drugs that make you sleepy can worsen this effect. Ask your doctor before taking a sleeping pill, narcotic medication, muscle relaxer, or medicine for anxiety, depression, or seizures. Other drugs may interact with gabapentin, including prescription and iiqd-wyv-zpdienn medicines, vitamins, and herbal products. Tell your [...] to ensure that the information provided by [employer]. ('[employer]') is accurate, up-to-date, and complete, but no guarantee is made to that effect. Drug information contained herein may be time sensitive. [employer] information has been compiled for use by healthcare practitioners and consumers in the [place] and therefore [employer] does not warrant that uses outside of the [place] are appropriate, unless specifically indicated otherwise. [employer] drug information does not endorse drugs, diagnose patients or recommend therapy. [employer] drug information is an informational resource designed [...] effective or appropriate for any given patient. [employer] does not assume any responsibility for any aspect of healthcare administered with the aid of information [employer] provides. The information contained herein is not intended to cover all possible uses, directions, precautions, warnings, drug interactions, allergic reactions, or adverse effects. If you have questions about the drugs you are taking, check with your doctor, nurse or pharmacist. Copyright 6707-6521 [employer]. Version: 14.. Revision Date: 02/10/2017. hydromorphone (oral) [...] extended-release form of this medicine is for tfvpfz-yyu-rcrnz treatment of moderate to severe pain, not [...] against the law. Stop taking all other rkodxy-bsb-bqbog narcotic pain medications when you start taking [...] may report side effects to FDA at 1-649-DAQ-6525. What other drugs will affect hydromorphone? Opioid [...] drugs may affect hydromorphone, including prescription and hmzq-gzi-vizhtzf medicines, vitamins, and herbal products. Not all [...] to ensure that the information provided by [employer]. ('[employer]') is accurate, up-to-date, and complete, but no guarantee is made to that effect. Drug information contained herein may be time sensitive. [employer] information has been compiled for use by healthcare practitioners and consumers in the [place] and therefore [employer] does not warrant that uses outside of the [place] are appropriate, unless specifically indicated otherwise. [employer] drug information does not endorse drugs, diagnose patients or recommend therapy. [employer] drug information is an informational resource designed [...] effective or appropriate for any given patient. [employer] does not assume any responsibility for any aspect of healthcare administered with the aid of information [employer] provides. The information contained herein is not intended to cover all possible uses, directions, precautions, warnings, drug interactions, allergic reactions, or adverse effects. If you have questions about the drugs you are taking, check with your doctor, nurse or pharmacist. Copyright 9490-2452 [employer]. Version: 9.02. Revision Date: 03/31/2018. acetaminophen and hydrocodone (a SEET a MIN oh fen and noah droe KOE done) Hycet, Lorcet, Atkinson, Verdrocet, Vicodin, Xodol, Zamicet What is the [...] may report side effects to FDA at 8-456-ROK-8308. What other drugs will affect acetaminophen and [...] affect acetaminophen and hydrocodone, including prescription and rokq-dit-xdzpqye medicines, vitamins, and herbal products. Not all [...] to ensure that the information provided by [employer]. ('[employer]') is accurate, up-to-date, and complete, but no guarantee is made to that effect. Drug information contained herein may be time sensitive. [employer] information has been compiled for use by healthcare practitioners and consumers in the [place] and therefore [employer] does not warrant that uses outside of the [place] are appropriate, unless specifically indicated otherwise. [employer] drug information does not endorse drugs, diagnose patients or recommend therapy. [employer] drug information is an informational resource designed [...] effective or appropriate for any given patient. [employer] does not assume any responsibility for any aspect of healthcare administered with the aid of information [employer] provides. The information contained herein is not intended to cover all possible uses, directions, precautions, warnings, drug interactions, allergic reactions, or adverse effects. If you have questions about the drugs you are taking, check with your doctor, nurse or pharmacist. Copyright 7076-2934 [employer]. Version: 15.02. Revision Date: 03/08/2018. tramadol (TRAM [...] extended-release form of this medicine is for efkxtu-nku-oekae treatment of pain. This form of tramadol [...] against the law. Stop taking all other xdisuo-dtj-udqmy narcotic pain medications when you start taking [...] may report side effects to FDA at 1-983-ZGP-3333. What other drugs will affect tramadol? You [...] may affect tramadol. This includes prescription and peol-eia-bsedjyr medicines, vitamins, and herbal products. Not all [...] to ensure that the information provided by [employer]. ('[employer]') is accurate, up-to-date, and complete, but no guarantee is made to that effect. Drug information contained herein may be time sensitive. [employer] information has been compiled for use by healthcare practitioners and consumers in the [place] and therefore [employer] does not warrant that uses outside of the [place] are appropriate, unless specifically indicated otherwise. [employer]'s drug information does not endorse drugs, diagnose patients or recommend therapy. [employer] drug information is an informational resource designed [...] effective or appropriate for any given patient. [employer] does not assume any responsibility for any aspect of healthcare administered with the aid of information [employer] provides. The information contained herein is not intended to cover all possible uses, directions, precautions, warnings, drug interactions, allergic reactions, or adverse effects. If you have questions about the drugs you are taking, check with your doctor, nurse or pharmacist. Copyright 1580-0348 [employer]. Version: 20.01. Revision Date: 08/12/2018. Emergency Awareness [...] Assistance with quitting is available by contacting 2-528-IWYOKloud AngelsNOW. This is a free resource providing counseling, [...] on filedocumented in this encounter Care Teams Retouching Operator Relationship Specialty Start Date End Date Ferny Gentile [address] [place] [address] PCP - General 05/22/22 documented as of this encounter
--- OUTSIDE RECORDS SUMMARY | 2025-03-24 10:11 | XMS_ITS | Clinical Summary ---
Author Organization [employer] ([place], [place], [place], [place], [place]) Address [address] [place] [address] Care Team Providers Care Fish Liver Sorter Name Role Phone SeferinoSakinat Primary Care Provider [phone] Allergies Active Allergy Reactions Criticality Noted Date [...] oxide 400 mg magnesium Tab daily. Active ls-sei-fmzkoa- ihZ93-qfi-oiz- 27 0.5-30-60-90 mg Cap daily. Active cholecalcifero [...] 2025 01/29/2021 Medical Devices Implanted Type Area Patient Intake Coordinator Device Identifier Shelf Expiration Date Model / Serial / Lot Cement [place] Hv 40/20 600-15-000 - [id number] Implanted:Qty : 2 on 05/26/2022 by Eliseo Cuevas MD at [facility] IMPLANTS Left: Knee DJ SURG:ENCORE MED:JESSIEOOGA 05/30/2023 600-15-00 0 / / [id number] Ty Tib I-Beam Fix Biomet 75mm [id number] - [id number] Implanted:Qty : 1 on 05/26/2022 by Eliseo Cuevas MD at [facility] TOTAL JOINT CONSTRUCT Left: Knee BIOMET 03/26/2032 [id number] / / [id number] Patella Std 8x31mm [id number] - [id number] Implanted:Qty : 1 on 05/26/2022 by Eliseo Cuevas MD at [facility] TOTAL JOINT CONSTRUCT Left: Knee BIOMET 03/12/2027 [id number] / / [id number] Comp Fem Ps Vangrd 65mm [id number] - [id number] Implanted:Qty : 1 on 05/26/2022 by Eliseo Cuevas MD at [facility] TOTAL JOINT CONSTRUCT Left: Knee BIOMET 10/13/2029 [id number] / / [id number] Insrt Tib Bear Ps 10x71/75 [id number] - [id number] Implanted:Qty : 1 on 05/26/2022 by Eliseo Cuevas MD at [facility] TOTAL JOINT CONSTRUCT Left: Knee BIOMET 11/07/2025 [id number] / / [id number] Insurance MEDICARE PART A B Advance Directives For more information, please contact: [phone] * Full Code (Latest Code Status on File) Date Activated Date Inactivated Comments 05/26/2022 3:06 PM 05/29/2022 8:04 PM * Full Code Date Activated Date Inactivated Comments 05/26/2022 8:57 AM 05/26/2022 3:06 PM Care Teams Fish Liver Sorter Relationship Specialty Start Date End Date SeferinoSakinat [address] [place] [address] PCP - General 05/22/22
--- OUTSIDE RECORDS SUMMARY | 2025-03-24 10:11 | XMS_ITS | Encounter Summary ---
Author Organization [employer] ([place], [place], [place], [place], [place]) Address [address] [place] [address] Care Team Providers Care Cargo Mate Name Role Phone SeferinoSakinat Primary Care Provider [phone] Encounter Details Date Type Department Care Team (Late st Contact Info) Description 12/14/[address] [facility] [place] Family [place] [facility] [place] [address] ProviderArt MD [address] [place] [address] Social History Tobacco Use Types Packs/Day [...] 12/14/2018 6:13 EDT by Ana Overton Patient Story Editor Height and Weight, Clinical Dosing Height Source : Stated Height Entry Format : [place] Height, Feet : 5 ft(Converted to: 152 cm, 60 Inch) Height, Inches : 7 Inch(Converted to: 0 ft 7 Inch, 17.78 cm) Clinical Height : 170.18 cm Weight Source : Standing scale Weight Entry Format : [place] Clinical Dosing Weight : 90.91 kg Weight, Pounds : 200 lb Body Surface Area (BSA) : 2.02 m2 Body Mass Index : 31.4 kg/m2 (HI) [place] Body Weight : 61 kg Ana Overton, Patient Story Editor - 12/14/2018 6:13 EDT documented in this encounter Plan of Treatment Not on file documented as of this encounter Visit Diagnoses Not on filedocumented in this encounter Care Teams Cargo Mate Relationship Specialty Start Date End Date Ferny Gentile [address] [place] [address] PCP - General 05/22/22 documented as of this encounter
--- OUTSIDE RECORDS SUMMARY | 2025-03-24 10:11 | XMS_ITS | Encounter Summary ---
Author Organization [employer] ([place], [place], [place], [place], [place]) Address [address] [place] [address] Care Team Providers Care Apple Checker Name Role Phone SeferinoSakinat Primary Care Provider Encounter Details Date Type Department Care Team (Late st Contact Info) Description 12/14/2018 Transcribed Document [facility] Family [place] [address] ProviderArt MD [address] [place] [address] Social History Tobacco Use Types Packs/Day [...] Empathic/Engaged listening, Family/Significant other supported Spiritual and Orthodoxy : Prayer shared Change, Adjustment and Loss [...] on filedocumented in this encounter Care Teams Apple Checker Relationship Specialty Start Date End Date Ferny Gentile [address] [place] [phone] PCP - General 05/22/22 documented as of this encounter
--- OUTSIDE RECORDS SUMMARY | 2025-03-24 10:11 | XMS_ITS | Encounter Summary ---
Author Organization [employer] ([place], [place], [place], [place], [place]) Address [address] [place] [address] Care Team Providers Care Butt Trimmer Name Role Phone Ferny Gentile Primary Care Provider [phone] Encounter Details Date Type Department Care Team (Late st Contact Info) Description 12/14/2018 Transcribed Document [facility] Family Medicine [facility] [place] [address] ProviderArt MD [address] [place] [address] Social History Tobacco Use Types Packs/Day [...] Source : Stated Height Entry Format : [place] Height, Feet : 5 ft(Converted to: 152 cm, 60 Inch) Height, Inches : 7 Inch(Converted to: 0 ft 7 Inch, 17.78 cm) Clinical Height : 170.18 cm Weight Source : Standing scale Weight Entry Format : [place] Clinical Dosing Weight : 90.91 kg Weight, Pounds : 200 lb Body Surface Area (BSA) : 2.02 m2 Body Mass Index : 31.4 kg/m2 (HI) [place] Body Weight : 61 kg SHERLYN THOMPSON [...] Obtained From : Patient Primary Language : Estonian Preferred Communication Mode : Verbal Communication Barrier [...] Level : 46 or > High Risk [place] Fall Interventions : Adequate lighting, Assistive devices [...] the text rendition version of the form. [place] Coma [place] Best Motor Response : Obey commands Marcella Best Verbal Response : Oriented [place] Eye Opening Response : Spontaneous [place] Coma Score : 15 SHERLYN THOMPSON RN - 12/14/2018 6:06 EDT documented in this encounter Plan of Treatment Not on file documented as of this encounter Visit Diagnoses Not on filedocumented in this encounter Care Teams Butt Trimmer Relationship Specialty Start Date End Date Ferny Gentile [address] [place] [address] PCP - General 05/22/22 documented as of this encounter
--- OUTSIDE RECORDS SUMMARY | 2025-03-24 10:11 | XMS_ITS | Encounter Summary ---
Author Organization [employer] ([place], [place], [place], [place], [place]) Address [address] [place] [address] Care Team Providers Care Clerical Associate Name Role Phone SeferinoSakinat Primary Care Provider [phone] Encounter Details Date Type Department Care Team (Late st Contact Info) Description 12/15/2018 Transcribed Document [facility] Family Medicine [address] [place] [address] ProviderArt MD [address] [place] [address] Social History Tobacco Use Types Packs/Day [...] 12/15/2018 14:44 EDT Electronically signed by Marilou [facility] Conversion Corporate Travel Agent Cerner at 08/18/2022 11:11 AM CDT documented in this encounter Plan of Treatment Not on file documented as of this encounter Visit Diagnoses Not on filedocumented in this encounter Care Teams Clerical Associate Relationship Specialty Start Date End Date Seferino Ferny [address] [place] [address] PCP - General 05/22/22 documented as of this encounter
--- OUTSIDE RECORDS SUMMARY | 2025-03-24 10:11 | XMS_ITS | Encounter Summary ---
Author Organization [employer] ([place], [place], [place], [place], [place]) Address [address] [place] [address] Care Team Providers Care Cemetery Worker Name Role Phone Sakina Gentilet Primary Care Provider [phone] Encounter Details Date Type Department Care Team (Late st Contact Info) Description 12/02/2018 Transcribed Document [place] Family Medicine [facility] [place] [address] ProviderArt MD [address] [place] [address] Social History Tobacco Use Types Packs/Day [...] Joint Academy Date : 12/02/2018 EDT Joint Set Decorator Attended Academy : Yes Joint Set Decorator Name : Litzy Naranjo [phone] Type of Surgery : Anterior Hip Replacement, [...] on filedocumented in this encounter Care Teams Cemetery Worker Relationship Specialty Start Date End Date Ferny Gentile [address] [place] [address] PCP - General 05/22/22 documented as of this encounter
--- OUTSIDE RECORDS SUMMARY | 2025-03-24 10:11 | XMS_ITS | Encounter Summary ---
[facility] Organization [facility] Address [address] [place] [address] Care Team Providers Care Science Technicians Name Role Phone Ferny Gentile MD Primary Care Provider [phone] Reason for Visit * Reason Onset Date Comments Med Refill 03/07/2025 [facility]AGER-MED REFILL 03/07/2025 Encounter Details Date Type Department Care Team (Late st Contact Info) Description 03/07/2025 Refill [facility] [address] [facility] [address] [place] [address] Wojciech Flores MD 1720 [facility] [address] [place] [address] Med Refill; CRAGER-MED REFILL Social History Tobacco Use Types Packs/Day Years [...] money to buy more. Never true 06/09/19 Within the past 12 months, t he [...] encounter Miscellaneous Notes * Telephone Encounter - HendersonTristonReneeOtis johnson Rep - 03/07/2025 9:23 AM EST Caller: Luz Skaggs Relationship: Self Best call back number: [phone] Requested Prescriptions: Requested Prescriptions Pending Prescriptions Disp Refills warfarin (COUMADIN) 5 MG tablet 135 tablet 0 Sig: TAKE 1 TO 1 & 1/2 (ONE TO ONE & ONE-HALF) TABLETS BY MOUTH ONCE DAILY OR DIRECTED BY THE ANTICOAGULATION CLINIC Pharmacy where request should be sent: [facility] [place] - [address] [phone] [facility] [phone] FX Last office visit with prescribing clinician: 01/12/2025 Last telemedicine visit with prescribing clinician: Visit date not found Next office visit with prescribing clinician: Visit date not found Additional details provided by patient: Does the patient have less than a 3 day supply: [x] Yes [] No Otis Lizarraga Rep 03/07/25 09:24 EST documented in this encounter Plan of Treatment Upcoming Encounters Date Type Department Care Team (Late st Contact Info) Description 06/30/2025 11:30 AM EST Office Visit [facility] RHEUMAT[facility] [address] [place] [address] David Bernstein MD [address] [place] [address] 10/03/2025 2:45 PM EDT Office Visit [facility] [address] [facility] [address] [place] [address] Yon Govea MD 1720 [facility] [address] [place], [place] [id number] 06/14/2026 1:30 PM EST Office Visit [facility] [address] [place] [address] [place] [address] Wojciech Flores MD 1720 [facility] [address] [place], [place] [id number] documented as of this encounter Visit Diagnoses Not on filedocumented in this encounter Care Teams Science Technicians Relationship Specialty Start Date End Date Ferny Gentile MD [address] [facility] [address] [place] [address] PCP - General 06/11/15 documented as of this encounter
--- OUTSIDE RECORDS SUMMARY | 2025-03-24 10:11 | XMS_ITS | Encounter Summary ---
Author Organization [employer] ([place], [place], [place], [place], [place]) Address [address] [place] [address] Care Team Providers Care Flame Brazing Machine Operator Name Role Phone SeferinoSakinat Primary Care Provider [phone] Encounter Details Date Type Department Care Team (Late st Contact Info) Description 12/14/2018 Transcribed Document [facility] [place] [place] Family Medicine [facility] [place] [address] ProviderArt MD [address] [place] [address] Social History Tobacco Use Types Packs/Day [...] 12/15/2018 1:35 EDT Electronically signed by Marilou [facility] Conversion Railway Signal Operator Cerner at 08/18/2022 11:25 AM CDT documented in this encounter Plan of Treatment Not on file documented as of this encounter Visit Diagnoses Not on filedocumented in this encounter Care Teams Flame Brazing Machine Operator Relationship Specialty Start Date End Date Ferny Gentile [address] [place] [address] PCP - General 05/22/22 documented as of this encounter
--- OUTSIDE RECORDS SUMMARY | 2025-03-24 10:11 | XMS_ITS | Encounter Summary ---
Author Organization [employer] ([place], [place], [place], [place], [place]) Address [address] [place] [address] Care Team Providers Care Electrical Sign Servicer Name Role Phone Ferny Gentile Primary Care Provider Encounter Details Date Type Department Care Team (Late st Contact Info) Description 12/14/2018 Transcribed Document [facility] Family Medicine [place] [address] ProviderArt MD [address] [place] [address] Social History Tobacco Use Types Packs/Day [...] MADERA /Sex: 1940 Female Med Rec #: [id number] Physician: MATTHEW BANEGAS MD-TITO Financial #: [id number] Pt. Type: I Room/Bed: [facility]/ Admit/Disch: 12/14/18 04:48:00 - Institution: [facility] PreOp Case Times Entry 1 In Preop 12/14/18 05:30:00 Ready for Holding n/a Room Patient Ready for 12/14/18 06:49:00 Surgery Patient Out of Preop 12/14/18 07:27:00 Patient Out of n/a Holding Room Last Modified By: SYDNI MCGRGEOR 12/14/18 09:40:09 [facility] PreOp Case Times Audit 12/14/18 09:40:09 Director Of Digital Technology: [email or web address] Modifier: [email or web address] <+> 1 Patient Out of Preop 12/14/18 06:49:39 Director Of Digital Technology: ETIENNE Modifier: [email or web address] <+> 1 Patient Ready for Surgery Finalized By: SYDNI MCGREGOR Document Signatures Signed By: SYDNI MCGREGOR 12/14/18 09:40 Electronically signed by Brina Zamarripa Conversion Boring Mill Set Up Operator Vertical Cerner at 08/18/2022 11:25 AM CDT documented in this encounter Plan of Treatment Not on file documented as of this encounter Visit Diagnoses Not on filedocumented in this encounter Care Teams Electrical Sign Servicer Relationship Specialty Start Date End Date Ferny Gentile [address] [place] [address] PCP - General 05/22/22 documented as of this encounter
--- OUTSIDE RECORDS SUMMARY | 2025-03-24 10:12 | XMS_ITS | Encounter Summary ---
Author Organization [facility] Address [address] [place] [address] Care Team Providers Care Building Engineer Name Role Phone Ferny Gentile MD Primary Care Provider [phone] Encounter Details Date Type Department Care Team (Late st Contact Info) Description 03/17/2025 Anticoagulation Visit [facility] [address] [place] [address] Karen Mace, Sprinkler Tender Social History Tobacco Use Types Packs/Day Years [...] this encounter Progress Notes * Karen Mace, Sprinkler Tender - 03/17/2025 1:14 PM EST [facility]tico[facility] Progress Note Patient Demographics Method of INR reporting: ACELIS HOME MONITOR Estimated OOP Cost: Indication: Paroxsymal Atrial Fibrillation (I48.0) Referring Provider Wojciech Flores MD Reason patient is not on a DOAC: Undetermined Goal INR: 2-3 Warfarin Start Date Fall 2014 Reason patient is not on home monitor: [id number]: CHF (1), HTN (1), Age >74 (2), [...] APAP Date 02/08 02/17 02/24 03/06 03/10 03/14 03/17 Total Weekly Dose 52.5 mg 52.5 mg 52.5 mg 32.5 mg 57.5 mg 60 mg 65 mg INR 1.9 2.7 1.8 1.2 1.5 1.7 2.2 Notes Hold x 5 enox Patient Contact Information Verbal release: Signed 06/29/19 -- May speak with Litzy Naranjo Preferred contact number: Alternative contact number(s): [phone] (Litzy's Mobile) Patient Appropriate for WarfNoCall ? No [...] patient. Dosing verified. Assessment and Plan: INR is therapeutic at 2.2 (2.0-3.0). Per Claudia Bauer PharmD instructed patient to continue warfarin 7.5 mg daily until recheck. Recheck INR in 1 week, 03/24. Patient prefers testing Fridays. Verbal and written information provided. Luz Skaggs expresses understanding by teach back andhas no further questions at this time. Karen Mace CPhT, [facility] 13:34 EST 03/17/2025 Claudia Mathis PharmD, have reviewed the note in full and agree with the assessment and plan. 03/17/25 13:39 EST documented in this encounter Plan of Treatment Upcoming Encounters Date Type Department Care Team (Late st Contact Info) Description 06/30/2025 11:30 AM EST Office Visit [facility] RHEUMATOLOGY [address] [place] [phone] David Bernstein MD [address] [place] [address] 10/03/2025 2:45 PM EDT Office Visit [facility] CARDIOLOG[facility] [address] [facility] [address] [place] [address] Yon Govea MD 1720 [facility] [address] [place], [place] [address] 06/14/2026 1:30 PM EST Office Visit [facility] CARDIOLOG[facility] [address] [place] [address] Wojciech Flores MD 1720 [facility] [address] [place], [place] [phone] documented as of this encounter Procedures Procedure Name Priority Date/Time Associated Diagnosis Comments PROTIME-INR Routine 03/17/2025 documented in this encounter Results * Protime-INR (03/17/2025) INR 2.20 Blood 03/17/2025 us Historical Provider LAB BLOOD ORDERABLES Agata l Result documented in this encounter Visit Diagnoses Not on filedocumented in this encounter Care Teams Building Engineer Relationship Specialty Start Date End Date Ferny Gentile MD [address] [facility] [address] [facility] [address] PCP - General 06/11/15 documented as of this encounter
--- OUTSIDE RECORDS SUMMARY | 2025-03-24 10:12 | XMS_ITS | Encounter Summary ---
Author Organization [employer] ([place], [place], [place], [place], [place]) Address [address] [place] [address] Care Team Providers Care Videotape Recording Engineer Name Role Phone Ferny Gentile Primary Care Provider [phone] Encounter Details Date Type Department Care Team (Late st Contact Info) Description 12/14/2018 Transcribed Document [facility] Family [place] [address] ProviderArt MD [address] [place] [address] Social History Tobacco Use Types Packs/Day [...] Obtained From : Patient Primary Language : Faroese Preferred Communication Mode : Verbal Communication Barrier [...] : No Barcenas Secondary Diagnosis : Yes BARCEANS Use of Ambulatory Aid : Bed rest/Nurse assist BARCENAS IV Therapy or IV Access : Yes Anastasiia Gait/Transferring : Weak Anastasiia Mental Status : Oriented to own ability Barc[place] Fall Risk Score : 45 BARCENAS Fall Scale Risk Level : 25-45 Medium Risk [place] Fall Interventions : Adequate lighting, Assistive devices [...] High Risk Interventions : Bed alarm on [place], Christopher L, RN - 12/14/2018 10:39 EDT [...] Source : Stated Height Entry Format : [place] Height, Feet : 5 ft(Converted to: 152 cm, 60 Inch) Height, Inches : 7 Inch(Converted to: 0 ft 7 Inch, 17.78 cm) Clinical Height : 170.18 cm Weight Source : Standing scale Weight Entry Format : [place] Clinical Dosing Weight : 90.91 kg Weight, Pounds : 200 lb Body Surface Area (BSA) : 2.02 m2 Body Mass Index : 31.4 kg/m2 (HI) [place] Body Weight : 61 kg Amandeep Martinez [...] on filedocumented in this encounter Care Teams Videotape Recording Engineer Relationship Specialty Start Date End Date Ferny Gentile [address] [place] [address] PCP - General 05/22/22 documented as of this encounter
--- OUTSIDE RECORDS SUMMARY | 2025-03-24 10:12 | XMS_ITS | Encounter Summary ---
Author Organization [employer] ([place], [place], [place], [place], [place]) Address [address] [place] [address] Care Team Providers Care Ring Rolling Machine Operator Name Role Phone Douglas Gentileght Primary Care Provider [phone] Encounter Details Date Type Department Care Team (Late st Contact Info) Description 12/14/2018 Transcribed Document [facility] [place] [facility] [place] [address] ProviderArt MD [address] [place] [address] Social History Tobacco Use Types Packs/Day [...] ipratropium 21 mcg/inh (0.03%) nasal spray 2 Donnelly, Nasal, BID kynsol magnesium oxide 400 mg [...] 7.5 mg = 1 Tab, Oral, Daily Wyanet 7.5/325mg 1-2 tabs PO Q6hrs PRN Dilaudid 2mg Q6hrs PRN (extreme pain only, this is not for management of pain but for rescue only) Tramadol 50mg 1 tab Q 6hrs PRN Lovenox 40mg SubQ daily x 4 doses Colace 100mg 1 tab daily Gabapentin 300mg 1 tab QHS Electronically signed by Marilou, [facility] Conversion Entry Level Finance Cerner at 08/18/2022 11:18 AM CDT documented in this encounter Plan of Treatment Not on file documented as of this encounter Visit Diagnoses Not on filedocumented in this encounter Care Teams Ring Rolling Machine Operator Relationship Specialty Start Date End Date Ferny Gentile [address] [place] [address] PCP - General 05/22/22 documented as of this encounter
--- OUTSIDE RECORDS SUMMARY | 2025-03-24 10:12 | XMS_ITS | Encounter Summary ---
Author Organization [facility] Address [address] [place] [address] Care Team Providers Care Ostrich Farmer Name Role Phone Ferny Gentile MD Primary Care Provider [phone] Encounter Details Date Type Department Care Team (Late st Contact Info) Description 03/14/2025 Anticoagulation Visit [facility] [address] [facility] [address] [place] [address] Claudia Bauer, PharmD [address] [place] [address] Social History Tobacco Use Types [...] Progress Notes * Claudia Bauer, PharmD - 03/14/2025 10:43 AM EST [facility] Anticoagulation Clinic Progress Note Patient Demographics Method of INR reporting: ACELIS HOME MONITOR Estimated OOP Cost: Indication: Paroxsymal Atrial Fibrillation (I48.0) Referring Provider Wojciech Flores MD Reason patient is not on a DOAC: Undetermined Goal INR: 2-3 Warfarin Start Date Fall 2014 Reason patient is not on home monitor: [id number]: CHF (1), HTN (1), Age >74 (2), [...] Date 02/08 02/17 02/24 03/06 03/10 03/14 Total Weekly Dose 52.5 mg 52.5 mg 52.5 mg 32.5 mg 57.5 mg 60 mg INR 1.9 2.7 1.8 1.2 1.5 1.7 Notes Hold x 5 enox Patient Contact Information Verbal release: Signed 06/29/19 -- May speak with Litzy Naranjo Preferred contact number: Alternative contact number(s): [phone] (Litzy'lesley Mobile) Patient Appropriate for WarfNoCall ? [...] admission, Bruising, Other complaints Comments: Patient had leg swelling over the weekend. Had doppler done on 03/13/25 with no evidence of a blood clot. All current findings negative per patient and/or caregiver. Correct dosing verified. Assessment and Plan: INR is sub therapeutic at 1.7 (2.0-3.0). Instructed patient to take warfarin 15 mg today, warfarin 10 mg tomorrow then warfarin 7.5 mg daily until recheck. Recheck INR 03/17. Patient prefers testing Fridays. Verbal and written information provided. Luz Skaggs expresses understanding by teach back andhas no further questions at this time. Claudia Bauer PharmD 03/14/2025 10:44 EST documented in this encounter Plan of Treatment Upcoming Encounters Date Type Department Care Team (Late st Contact Info) Description 06/30/2025 11:30 AM EST Office Visit [facility] RHEUMATOLOGY [address] [place] [address] David Bernstein MD [address] [place] [address] 10/03/2025 2:45 PM EDT Office Visit [facility] CARDIOLOG[facility] [address] [place] [address] Yon Govea MD 17[address] [facility] [address] [place], [place] [id number] 06/14/2026 1:30 PM EST Office Visit [facility] CARDIOLOG[facility] [address] [place] [address] Wojciech Flores MD [address] [facility] [address] [place], [place] [id number] documented as of this encounter Procedures Procedure Name Priority Date/Time Associated Diagnosis Comments PROTIME-INR Routine 03/14/2025 documented in this encounter Results * Protime-INR (03/14/2025) INR 1.70 Blood us Historical Provider LAB BLOOD ORDERABLES Agata l Result documented in this encounter Visit Diagnoses Not on filedocumented in this encounter Care Teams Ostrich Farmer Relationship Specialty Start Date End Date Ferny Gentile MD [address] [facility] [address] [place] [address] PCP - General 06/11/15 documented as of this encounter
--- OUTSIDE RECORDS SUMMARY | 2025-03-24 10:12 | XMS_ITS | Encounter Summary ---
Author Organization [employer] ([place], [place], [place], [place], [place]) Address [address] [place] [address] Care Team Providers Care Metal Furniture Glazier Name Role Phone Ferny Gentile Primary Care Provider [phone] Encounter Details Date Type Department Care Team (Late st Contact Info) Description 12/14/2018 Transcribed Document [facility] [place] [facility] [place] [address] ProviderArt MD [address] [place] [address] Social History Tobacco Use Types Packs/Day [...] 12/14/2018 10:12 PT Treatment Instructions Ordered By: MATTHWE BANEGAS MD-ORT 12/14/2018 10:12 PT Treatment Instructions [...] NIA MARROQUIN, PT - 12/14/2018 11:16 EDT Mushroom Cutter Goals Other PT LTG Grid Goal #1 [...] filedocumented in this encounter Care Teams Metal Furniture Glazier Relationship Specialty Start Date End Date Seferino Ferny [address] [place] [address] PCP - General 05/22/22 documented as of this encounter
--- OUTSIDE RECORDS SUMMARY | 2025-03-24 10:12 | XMS_ITS | Encounter Summary ---
Author Organization [employer] ([place], [place], [place], [place], [place]) Address [address] [place] [address] Care Team Providers Care Heel Seat Fitter Name Role Phone Douglas Gentileght Primary Care Provider [phone] Encounter Details Date Type Department Care Team (Late st Contact Info) Description 12/14/2018 Transcribed Document [facility] [place] [place] [address] ProviderArt MD [address] [place] [address] Social History Tobacco Use Types Packs/Day [...] Barley. Bulgur wheat. Millet. Bran muffins. Popcorn. [place] wafer crackers. Vegetables Sweet potatoes. Spinach. Kale. Artichokes. Cabbage. Broccoli. Green peas. Carrots. Squash. Fruits Berries. Pears. Apples. Oranges. Avocados. Prunes and raisins. Dried figs. Meats and Other Protein Sources [place], kidney, shrestha, and soy beans. Split peas. [...] zuri has 11 g of protein. ?? [place] seeds - 1 oz has 5.5 g [...] floor. ?? Place frequently used items in zryz-ad-rinmp places ?? Keep electrical cables out of [...] ?? Using the bathroom. ?? Using household asbestos abatement worker or toxic chemicals. ?? Touching or taking [...] filedocumented in this encounter Care Teams Heel Seat Fitter Relationship Specialty Start Date End Date Ferny Gentile [address] [place] [address] PCP - General 05/22/22 documented as of this encounter
--- OUTSIDE RECORDS SUMMARY | 2025-03-24 10:12 | XMS_ITS | Encounter Summary ---
[facility] Address [address] [place] [address] Care Team Providers Care Group Chief Operator Name Role Phone Ferny Gentile MD Primary Care Provider [phone] Encounter Details Date Type Department Care Team (Late st Contact Info) Description 03/14/2025 Telephone [facility] [address] [place] [id number] Kraen Mace, Fretted String Instrument Repairer Social History Tobacco Use Types Packs/Day [...] Notes * Telephone Encounter - Karen Mace, Fretted String Instrument Repairer - 03/14/2025 10:13 AM EST Received a voicemail from [employer] requesting a new prescription form be sent in, irving patient reports she is switching providers. Attempted to call patient to confirm. ULVM. Karen Mace CPhT, RPhT 10:13 EST 03/14/2025 documented in this encounter Plan of Treatment Upcoming Encounters Date Type Department Care Team (Late st Contact Info) Description 06/30/2025 11:30 AM EST Office Visit [facility] [address] [phone] David Bernstein MD 330 [facility] [address] [place] [address] 10/03/2025 2:45 PM EDT Office Visit [facility] [address] [facility] [address] [place] [address] Yon Govea MD [address] [facility] [address] [place] [address] 06/14/2026 1:30 PM EST Office Visit [facility] [address] [place] [address] [place] [address] Wojciech Flores MD [address] [facility] [address] [place], [place] [id number] documented as of this encounter Visit Diagnoses Not on filedocumented in this encounter Care Teams Group Chief Operator Relationship Specialty Start Date End Date Ferny Gentile MD [address] [facility] [address] [place] [address] PCP - General 06/11/15 documented as of this encounter
--- OUTSIDE RECORDS SUMMARY | 2025-03-24 10:12 | XMS_ITS | Encounter Summary ---
Author Organization [employer] ([place], [place], [place], [place], [place]) Address [address] [place] [address] Care Team Providers Care Supervisor [employer] Name Role Phone Ferny Gentile Primary Care Provider [phone] Encounter Details Date Type Department Care Team (Late st Contact Info) Description 12/14/2018 Transcribed Document [facility] [place] [address] ProviderArt MD [address] [place] [address] Social History Tobacco Use Types Packs/Day [...] LOKI BLANTON OTR/Buck - 12/14/2018 11:16 EDT Detention Goals, OT Other LTG Grid Goal #1 [...] 12/14/2018 11:16 EDT Electronically signed by Marilou [facility] Conversion Sizer Machine Cerner at 08/18/2022 11:12 AM CDT documented in this encounter Plan of Treatment Not on file documented as of this encounter Visit Diagnoses Not on filedocumented in this encounter Care Teams Supervisor [employer] Relationship Specialty Start Date End Date Ferny Gentile [address] [place] [address] PCP - General 05/22/22 documented as of this encounter
--- OUTSIDE RECORDS SUMMARY | 2025-03-24 10:12 | XMS_ITS | Encounter Summary ---
Author Organization [employer] ([place], [place], [place], [place], [place]) Address [address] [place] [address] Care Team Providers Care Head Banquet Waitress Name Role Phone Douglas Gentileght Primary Care Provider [phone] Encounter Details Date Type Department Care Team (Late st Contact Info) Description 12/14/2018 Transcribed Document [facility] [place] [address] ProviderArt MD [address] [place] [address] Social History Tobacco Use Types Packs/Day [...] 12/14/2018 14:52 EDT by NICHOLE ARIZMENDI Care Management-Guest Services Lead Initial Assessment I Previously Documented Living Environment : No qualifying data available. Living Situation : Home Patient Lives With : Alone Emergency Contact #1 : Jesi Emergency Contact #1 Emergency Contact #1 Relationship : daughter Emergency Contact #2 : - Emergency Contact #2 Phone Number : - Emergency Contact #2 Relationship : - NICHOLE ARIZMENDI Care Management-Guest Services Lead - 12/14/2018 14:52 EDT Initial Assessment II Sensory and Motor Deficits : Other: RADHA Current Home Treatments and Equipment : Bedside commode, NICHOLE Martinez, Care Management-Guest Services Lead - 12/14/2018 14:52 EDT Discharge Needs I Anticipated Discharge Date : 12/15/2018 EDT Anticipated Discharge To, CM : Home with home health Current Home Treatment/Equipment : Current Home Treatment/Equipment No qualifying data available. NICHOLE ARIZMENDI Care Management-Guest Services Lead - 12/14/2018 14:52 EDT Discharge Needs II Professional Skilled Services : Professional Skilled Services No qualifying data available. Services and Community Resources : Home Health Discharge Options Discussed with Patient : Home Health NICHOLE ARIZMENDI Care Management-Guest Services Lead - 12/14/2018 14:52 EDT documented in this encounter Plan of Treatment Not on file documented as of this encounter Visit Diagnoses Not on filedocumented in this encounter Care Teams Head Banquet Waitress Relationship Specialty Start Date End Date Ferny Gentile [address] [place] [address] PCP - General 05/22/22 documented as of this encounter
--- OUTSIDE RECORDS SUMMARY | 2025-03-24 10:12 | XMS_ITS | Encounter Summary ---
Author Organization [employer] ([place], [place], [place], [place]) Address [address] [place] [address] Care Team Providers Care Sheet Heater Name Role Phone Seferino Ferny Primary Care Provider [phone] Encounter Details Date Type Department Care Team (Late st Contact Info) Description 12/02/2018 Transcribed Document [facility] [place] Medicine [facility] [place] [address] ProviderArt MD [address] [place] [address] Social History Tobacco Use Types Packs/Day [...] Source : Stated Height Entry Format : [place] Height, Feet : 5 ft(Converted to: 152 cm, 60 Inch) Height, Inches : 7 Inch(Converted to: 0 ft 7 Inch, 17.78 cm) Clinical Height : 170.18 cm Weight Source : Standing scale Weight Entry Format : [place] Clinical Dosing Weight : 90.91 kg Weight, Pounds : 200 lb Body Surface Area (BSA) : 2.02 m2 Body Mass Index : 31.4 kg/m2 (HI) [place] Body Weight : 61 kg CINDY DAVID [...] #2 Relationship : - Primary Language : Peruvian Communication Barrier : None CINDY DAVID RN [...] - 12/02/2018 11:37 EDT Electronically signed by [facility], [facility] Conversion Spud Sorter Cerner at 08/18/2022 11:25 AM CDT documented in this encounter Plan of Treatment Not on file documented as of this encounter Visit Diagnoses Not on filedocumented in this encounter Care Teams Sheet Heater Relationship Specialty Start Date End Date Ferny Gentile [address] [place] [address] PCP - General 05/22/22 documented as of this encounter
--- OUTSIDE RECORDS SUMMARY | 2025-03-24 10:12 | XMS_ITS | Encounter Summary ---
Author Organization [employer] ([place], [place], [place], [place], [place]) Address [address] [place] [address] Care Team Providers Care Cigarette Catcher Name Role Phone Sakina Gentilet Primary Care Provider [phone] Encounter Details Date Type Department Care Team (Late st Contact Info) Description 12/14/2018 Transcribed Document [facility] [place] [facility] [place] [address] ProviderArt MD [address] [place] [address] Social History Tobacco Use Types Packs/Day [...] 12/14/2018 14:52 EDT by NICHOLE ARIZMENDI, Care Management-Supervisor Microwave Final Discharge Planning Discharge Arrangements : Patient Post-Acute Information Patient Name: UZAIR MADERA Gender: Female : 44 Age: 78 Years No Post-Acute Placement(s) Listed No Post-Acute Service(s) Listed No [place] Referral(s) Listed Discharge To Care Management : Home Health Services (Related/SOC within 3 days)-06 NICHOLE ARIZMENDI, Care Management-Supervisor Microwave - 12/14/2018 14:52 EDT Final Narrative Note Final Narrative Note : [facility], PT HAS HER OWN MACHINE TO CHEDK HER INR. SHE IS FOLLOWED BY CARDIOLOGY NICHOLE QUINTERO, Care Management-Supervisor Microwave - 12/14/2018 14:52 EDT documented in this encounter Plan of Treatment Not on file documented as of this encounter Visit Diagnoses Not on filedocumented in this encounter Care Teams Cigarette Catcher Relationship Specialty Start Date End Date Ferny Gentile [address] [place] [phone] PCP - General 05/22/22 documented as of this encounter
--- OUTSIDE RECORDS SUMMARY | 2025-03-24 10:12 | XMS_ITS | Clinical Summary ---
Author Organization [facility] [place] Address [address] [place] [address] Phone Care Team Providers Care Under Cutter Name Role Phone MARIAMA MORALEZ, FATOUMATA E Primary Care Provider [phone] Camila MORALEZ, Alanna Bowen Unavailable [phone] [...] Active Last Documented On 2 1:05PM ; [facility] Joint Pain Right Thumb 04/17/2022 Ceci griffin APRN Active Last Documented On 2 1:05PM ; [facility] Midback Pain 10/17/2020 Brandon Wilks MD Acti ve Last Documented On 1 2:32PM ; [facility] Joint Pain Left Knee 02/16/2020 Eliseo Cuevas MD Active Last Documented On 0 1:26PM ; [facility] Joint Pain Right Knee 10/29/2016 Alanna castaneda MD Active Last Documented On 7 10:32AM ; [facility] Pain in Lumbar Spine 03/13/2016 Alanna krause MD Active Last Documented On 6 1:07PM ; [facility] [place] Joint Pain Hip Left 03/13/2016 Alanna chin MD Active Last Documented On 6 1:09PM ; [facility] [place] Joint Pain Knee 03/10/2012 Alanna Pereira Active Last Documented On 2 10:37AM ; [facility] [place] Plan of Treatment Fall Risk [...] - Last Documented On 07/07/2022 1:06PM ; [facility] [place] overall the patient is very pleased with her knee surgery, she has some bilateral lower extremity edema that she reports as being lymphedema diagnosis in the past. Happy to give PT prescription today to help with lymphedema modalities. We will plan for follow-up 4-6 weeks for 3 month interval exam - Last Documented On 07/07/2022 1:06PM ; [facility] [place] Pending Tests Order Diagnosis Results Due Ordering P rovider Therapy - Physical Therapy Knee 07/07/22 Hernan Gold PA-C Last Documented On 3 11:47AM ; [facility] [place] Instructions to patient Lose weight Last Documented On 3 11:07AM ; [facility] [place] Assessments Includes: Assessments from this encounter Findings seven-week status post left TKA - Last Documented On 07/07/2022 1:06PM ; [facility] [place] Instructions Includes: Instructions from this encounter Instructions to patient Lose weight Last Documented On 3 11:07AM ; [facility] [place] Medical Equipment - Implanted Devices Includes: Current Devices No Medical Equipment Recorded Medications Includes: Medications discussed during this encounter and other current Medications Current Medications (continue as prescribed) Colestipol HCl 5 GM Oral Packet 04/14/2024 Provider: Diagnosis: Last Documented On 4 11:25AM By Carla Hall ; [facility] [place] Protonix 20 MG Oral Tablet [...] Chicas ; [facility] Mupirocin 2% External Ointment 04/16/2022 Provider: Eliseo Cuevas MD Diagnosis: three times a day Apply to n ostrils 3 time a day 5 days prior to surgery. Last Documented On 2 2:50PM By Gilda Kamara ; [facility] [place] MegaRed [place]-3 Krill Oil 350 MG Oral Capsule 10/26/19 21 Provider: Diagnosis: Last Documented On 1 1:15PM By Betzaida Donald ; [facility] Sudafed 30 MG Oral Tablet 10/25/2020 Provider: Diagnosis: Last Documented On 1 1:15PM By Betzaida Donald ; [facility] Mucinex Allergy 180 MG Oral Tablet 10/25/2020 Provid er: Diagnosis: Last Documented On 1 1:14PM By Betzaida Donald ; [facility] Warfarin Sodium 7.5 MG Oral Tablet 10/17/2020 Provid er: Diagnosis: Last Documented On 1 2:43PM By Greer Kingston ; [facility] Ezetimibe 10 MG Oral Tablet 09/11/2020 Provider: FATOUMATA LESLIE MD Diagnosis: Last Documented On 1 1:13PM By Betzaida Donald ; [facility] [place] Digoxin 125 MCG Oral Tablet 07/21/2020 Provider: Diagnosis: Last Documented On 1 2:44PM By Greer Kingston ; [facility] CoQ-10 10 MG Oral Capsule 10/20/2019 Provider: Diagnosis: Last Documented On 0 4:01PM By Greer Kingston ; [facility] [place] D3-1000 25 MCG (1000 UT) Oral Capsule 10/20/2019 Pro vider: Diagnosis: Last Documented On 0 4:00PM By Greer Kingston ; [facility] [place] [facility] Omeprazole 20 MG Oral Ta blet Delayed Release Disintegrating 10/20/2019 Provider: Diagnosis: Last Documented On 0 3:59PM By Greer Kingston ; [facility] Probiotic Maximum Strength Oral Capsule 10/20/2019 Provider: Diagnosis: Last Documented On 0 3:58PM By Greer Kingston ; [facility] Citalopram Hydrobromide 10 MG Oral Tablet 10/20/2019 Provider: Diagnosis: Last Documented On 0 3:56PM By Greer Kingston ; [facility] [place] Flecainide Acetate 100 MG Oral Tablet 10/20/2019 Pro vider: Diagnosis: Last Documented On 0 3:55PM By Greer Kingston ; [facility] Past Medications on file oxyCODONE HCl 5 MG Oral Tablet 05/29/2022 - 06/03/2022 Provider: Eliseo ceja MD Diagnosis: 1-2 po q 4-6h Last Documented On 3 12:32PM By Hima Cuevas ; [facility] [place] traMADol HCl 50 MG Oral Tablet 05/29/2022 - 06/03/2022 Provider: Eliseo ceja MD Diagnosis: 1-2 po q 4-6h Last Documented On 3 12:32PM By Hima Cuevas ; [facility] Lovenox 40 MG/0.4ML Injection Solution Prefilled Syringe 05/26/2022 - 05/30/2022 Provider: Eliseo ceja MD Diagnosis: 1 sub q injection 1 time day Last Documented On 3 8:35AM By Hima Cuevas ; [facility] Cefadroxil 500 MG [...] - 05/26/2022 Provider: Eliseo Cuevas MD Diagnosis: [id number] Last Documented On 3 12:08PM By Hima Cuevas ; [facility] Meloxicam 15 MG Oral Tablet 05/21/2022 - 06/20/2022 Provider: Eliseo ceja MD Diagnosis: once a day Last Documented On 3 12:08PM By Hima Cuevas ; [facility] HYDROcodone-Acetaminophen 7. 5-325 MG Oral Tablet 10/25/2020 - 11/14/2020 Provider: Brandon Wilks MD Diagnosis: twice a day Last Documented On 1 12:08PM By Dr. Wilks ; [facility] Wilmar 5-325MG Oral Tablet 12/23/2018 - 01/22/2019 Provider: Eliseo ceja MD Diagnosis: 1-2 po q6h prn pain Last Documented On 9 3:09PM By Reanna Gutierrez ; [facility] Acetaminophen 500MG Oral Tablet 12/08/2018 - 01/07/2019 Provider: Eliseo Cuevas MD Diagnosis: 2 three times a day FOR BACON RGERY DO NOT FILL UNTIL 12/14/18 Last Documented On 9 4:10PM By Reanna Gutierrez ; [facility] traMADol HCl 50MG Oral Tablet 12/08/2018 - 12/13/2018 Provider: Eliseo ceja MD Diagnosis: 1-2 po q6h prn pain FOR BACON RGERY DO NOT FILL UNTIL 12/14/18 Last Documented On 9 4:06PM By Reanna Gutierrez ; [facility] Neurontin 300MG Oral Capsule 12/08/2018 - 03/08/2019 Provider: Eliseo ceja MD Diagnosis: 1 every bedtime FOR SURGER Y DO NOT FILL UNTIL 12/14/18 Last Documented On 9 4:05PM By Reanna Gutierrez ; [facility] Dilaudid 2MG Oral Tablet 12/08/2018 - 12/10/2018 Provi gaby: Eliseo Cuevas MD Diagnosis: 1-2 po q6h prn pain (RESCUE PAIN) FOR SURGERY DO NOT FILL UNTIL 12/14/18 Last Documented On 9 4:05PM By Reanna Gutierrez ; [facility] Colace 100MG Oral [...] By Gilda Kamara ; [facility] Wilmar 5-325MG Oral Tablet 12/24/2017 - 12/31/2017 Prov ider: Brandon Wilks MD Diagnosis: 1-2 po q 4-6h PRN Last Documented On 8 5:31PM By Dr. Wilks ; [facility] Wilmar 7.5-325 MG OR TABS 12/24/2017 - 01/03/2018 [...] By Sayra Evans ; [facility] Wilmar 5-325 MG Tablet 10/29/2016 - 11/05/2016 Provider : Alanna Jensen MD Diagnosis: 1-2 po q 4-6h PRN Last Documented On 7 11:55AM By Camryn Paez ; [facility] Medrol 4 MG Tablet Therapy Pack 02/14/2016 - 02/20/2016 Provider: Alanna chin MD Diagnosis: use as directed by pharmacy Last Documented On 6 3:16PM By Heather Langley ; [facility] Wilmar 5-325 MG Tablet 12/03/2015 - 12/18/2015 Provider : Alanna Jensen MD Diagnosis: 1-2 po q 4-6h Last Documented On 6 1:26PM By Heather Langley ; [facility] [place] Wilmar 7.5-325 MG Tablet 11/16/2015 - 12/16/2015 Provid er: Alanna Jensen MD Diagnosis: 1 every 4 - 6 hours PO PRN Last Documented On 6 2:09PM By Lani Marquez ; [facility] [place] Voltaren 1% TD [...] 10/17/2020 Last Documented On 3 11:07AM ; [facility] [place] No tobacco use 10/31/2019 Last Documented On 3 11:07AM ; [facility] [place] Not a current smoker 10/31/2019 Last Documented On 3 11:07AM ; [facility] [place] Not exercising regularly 10/31/2019 Last Documented On 3 11:07AM ; [facility] [place] Smoking status : Never smoker 10/31/2019 Last Documented On 3 11:07AM ; [facility] [place] Procedures and Surgical History Includes: [...] month Last Documented On 3 11:07AM ; [facility] [place] referral to physician Last Documented On 3 11:07AM ; [facility] [place] an X-ray was performed 51702 Last Documented On 3 11:07AM ; [facility] [place] Surgical History Last Updated History of back surgery 11/2019-Kypho T1 2 10/17/2020 Last Documented On 3 11:07AM ; [facility] [place] History of heart surgery ablation 2017 0 10/31/2019 Last Documented On 3 11:07AM ; [facility] [place] History of total hip replacement left hi p 201810/31/2019 Last Documented On 3 11:07AM ; [facility] [place] History of total knee arthroplasty right knee 201210/31/2019 Last Documented On 3 11:07AM ; [facility] [place] History of hysterectomy 10/16/2014 Last Documented On 3 11:07AM ; [facility] [place] Medical History Includes: Medical History addressed during this encounter Description Last Updated Recent immunization for flu 02/01/2022 1 06/15/2023 Last Documented On 3 11:07AM ; [facility] [place] Recent immunization for pneumococcal pne umonia 2014 04/14/2024 Last Documented On 3 11:07AM ; [facility] [place] History of Irregular Heartbeat A-fib; ep isode after TKA- cadiovert needed 06/16/2022 Last Documented On 3 11:07AM ; [facility] [place] blood transfusions 10/25/2020 Last Documented On 3 11:07AM ; [facility] [place] Arthritis 10/25/2020 Last Documented On 3 11:07AM ; [facility] [place] Heartburn / Acid Reflux 10/25/2020 Last Documented On 3 11:07AM ; [facility] [place] History of Blood Clots 10/25/2020 Last Documented On 3 11:07AM ; [facility] [place] History of Blood Transfusion 10/25/2020 Last Documented On 3 11:07AM ; [facility] [place] History of Cancer 10/25/2020 Last Documented On 3 11:07AM ; [facility] [place] History of Fractures 10/25/2020 Last Documented On 3 11:07AM ; [facility] [place] History of heart disease 10/25/2020 Last Documented On 3 11:07AM ; [facility] [place] Hypertension 10/25/2020 Last Documented On 3 11:07AM ; [facility] [place] Irregular Heartbeat 10/25/2020 Last Documented On 3 11:07AM ; [facility] [place] Past Surgical History: wrist repair ~hand sx ~gallstone sx 2011 ~mastectomy and reconstruction ~colonoscopy 2018 10/25/2020 Last Documented On 3 11:07AM ; [facility] [place] Previous Fractures 10/25/2020 Last Documented On 3 11:07AM ; [facility] [place] Sleep Apnea 10/25/2020 Last Documented On 3 11:07AM ; [facility] [place] Use of CPAP 10/25/2020 Last Documented On 3 11:07AM ; [facility] [place] Back surgery 12/15/2017 L4-5 Posterior Decompression and Fusion @ [facility] ~11/07/2019 T12 Kyphyoplasty 10/25/2020 Last Documented On 3 11:07AM ; [facility] [place] Heart surgery pacemaker 12/2019 ~Afib ab lation 10/25/2020 Last Documented On 3 11:07AM ; [facility] [place] History of Gallbladder 10/25/2020 Last Documented On 3 11:07AM ; [facility] Hysterectomy 10/25/2020 Last Documented On 3 11:07AM ; [facility] [place] Total hip replacement 12/2018-Left hip 0 10/17/2020 Last Documented On 3 11:07AM ; [facility] [place] A previous fracture 10/31/2019 Last Documented On 3 11:07AM ; [facility] [place] Gallbladder disease 2018 10/31/2019 Last Documented On 3 11:07AM ; [facility] [place] History of diverticulitis of colon 11/15 Last Documented On 3 11:07AM ; [facility] [place] History of osteoporosis 11/16/2015 Last Documented On 3 11:07AM ; [facility] [place] A history of cancer 10/16/2014 Last Documented On 3 11:07AM ; [facility] [place] Arthritic joint problems 10/16/2014 Last Documented On 3 11:07AM ; [facility] [place] Family History Includes: Family History addressed during this encounter Description Last Updated Family history of cancer mother ~father 11/16/2015 Last Documented On 3 11:07AM ; [facility] [place] Family history of diabetes mellitus moth er 11/16/2015 Last Documented On 3 11:07AM ; [facility] [place] Family history of heart disease mother ~ father 11/16/2015 Last Documented On 3 11:07AM ; [facility] [place] Family history of hypertension mother ~f ather 11/16/2015 Last Documented On 3 11:07AM ; [facility] [place] Family history of osteoporosis mother Last Documented On 3 11:07AM ; [facility] [place] Family history of rheumatoid arthritis m other 11/16/2015 Last Documented On 3 11:07AM ; [facility] [place] Family history of thromboembolic disease mother 11/16/2015 Last Documented On 3 11:07AM ; [facility] [place] Maternal history of hypertension 015 Last Documented On 3 11:07AM ; [facility] [place] Maternal history of osteoporosis 015 Last Documented On 3 11:07AM ; [facility] Review of Systems Includes: Review [...] ctive Last Documented On 4 12:09PM ; [facility] [place] Statins Support Allergy 06/09/2017 Act citlalli Last Documented On 4 12:09PM ; [facility] [place] Percocet Allergy 03/10/2012 Active Last Documented On 4 12:09PM ; [facility] [place] Bactrim Allergy 11/16/2015 Active Last Documented On 4 12:09PM ; [facility] [place] Encounters Encounter Provider Location Date Check-In Time Check- Out Time Diagnosis Post Op Hernan Gold PA-C [facility] 3 11:12AM 11:46AM Insurance Includes: Active Insurance Policies Plan Name Member ID Group # Subscriber Relationship Effect citlalli Dates 1 - Medicare Part B [facility] [id number] Luz Skaggs Self 04/03/2007 - Unknown 2 - [facility] [id number] PLAN F Luz Skaggs Self 2011 - Unknown Clinical Notes Includes: Clinical Notes from this encounter * Progress note Date Encounter Last Documented by 07/07/2022 Post Op Last documented on 07/07/2022; 1:06 PM, Hernan Gold PA-C; [facility] [place] Active Problems & Conditions - [...] directed 0 days, 0 refills - Ipratropium [place] 0.03% Nasal Solution take as directed 0 days, 0 refills - Lagevrio 200 MG Oral Capsule 5 days, 0 refills - Lagevrio 200 MG Oral Capsule 5 days, 0 refills - MegaRed [place]-3 Krill Oil 350 MG Oral Capsule once [...] refills - Sudafed 30 MG Oral Tablet 2kdt7-9d 0 days, 0 refills - Warfarin Sodium [...] Care Team - FATOUMATA LESLIE MD - DICE TABLE PERSON
--- OUTSIDE RECORDS SUMMARY | 2025-03-24 10:12 | XMS_ITS | Encounter Summary ---
Author Organization [employer] ([place], [place], [place], [place], [place]) Address [address] [place] [address] Care Team Providers Care Preventive Medicine Physician Name Role Phone Ferny Gentile Primary Care Provider [phone] Encounter Details Date Type Department Care Team (Late st Contact Info) Description 12/14/2018 Transcribed Document [facility] Family Medicine [facility] [place] [address] ProviderArt MD [address] [place] [id number] Social History Tobacco Use Types Packs/Day [...] Place : Fall prevention measures SAFIA BURGOS [facility] - 12/15/2018 12:46 EDT General [...] Established w Patient : Yes SAFIA BURGOS [facility] 12/15/2018 12:46 EDT Diamond Grinder Goals Other PT LTG Grid Goal #1 [...] EDT 12/15/2018 EDT 12/15/2018 EDT SAFIA BURGOS, [employer] - 12/15/2018 12:46 EDT CHRALENE BURGOSIN, [employer] - 12/15/2018 12:46 EDT AUBREYCHARLENEIN, [facility] - 12/15/2018 12:46 EDT SAFIA BURGOS, [facility] - 12/15/2018 12:46 EDT Treatment [...] the text rendition version of the form. [facility] PT Charges PT Therap. Exercise 15 min : 2 Gait Training Each 15 Min : 1 CHARLENE BURGOSBARBIE WATSON - 12/15/2018 12:46 EDT documented in this encounter Plan of Treatment Not on file documented as of this encounter Visit Diagnoses Not on filedocumented in this encounter Care Teams Preventive Medicine Physician Relationship Specialty Start Date End Date Esferino Ferny [facility] [place] [address] PCP - General 05/22/22 documented as of this encounter
--- OUTSIDE RECORDS SUMMARY | 2025-03-24 10:12 | XMS_ITS ---
Care Plan - [facility] Created on: March 24, 2025 Luz Skaggs : 1940 Sex: Female Author Organization [facility] Address [address] [place] [address] Phone Care Team Providers Care Barrel Assembler Name Role Phone MARIAMA MORALEZ, FATOUMATA Blanco Primary Care Provider [phone] Camila MORALEZ, Alanna Bowen Unavailable [phone]
[2025-03-24 11:36] LABS: Uric Acid 7.3 mg/dl (2.5-6.2)
== END 2025-03-24 23:59 | disposition home or self-care (01) ==
LOC: LAB 10:07
PROVIDERS: PCP Internal Medicine; Visit Provider Nurse Practitioner
DX: M10.9 Gout, unspecified (principal)
CPT/HCPCS: 36415; 84550

== ENCOUNTER 2025-04-20 14:49 | Outpatient (CLI) | payer MEDICARE, OTHER, SELFPAY ==
--- OUTSIDE RECORDS SUMMARY | 2019-07-05 13:42 | XMS_ITS | Encounter Summary ---
[facility] Address [address] [place] [address] Care Team Providers Care Real Estate Rep Name Role Phone Ferny Gentile MD Primary Care Provider [phone] Encounter Details Date Type Department Care Team (Late st Contact Info) Description 07/05/2019 1:42 PM EST Hospital Encounter [facility] PULMONARY & CRITICAL CARE MEDICINE [address] [place] [address] Social History Tobacco Use Types [...] Office Visit [facility] RHEUMATOLOGY [address] [facility] [address] [place] [address] David Bernstein MD 330 [facility] [address] [place] [address] 10/03/2025 2:45 PM EDT Office Visit [facility] CARDIOLOGY [address] [facility] [address] [place] [address] Yon Govea MD [address] [facility] [address] [place] [address] 06/14/2026 1:30 PM EST Office Visit [facility] CARDIOLOGY [address] [place] [address] Wojciech Flores MD [address] [facility] [address] [place], [place] [id number] Pending Results Name Type Priority Associated Diagnoses [...] documented as of this encounter Care Teams Real Estate Rep Relationship Specialty Start Date End Date Ferny Gentile MD [address] [place] [address] [address] [place] [address] PCP - General 06/11/15 documented as of this encounter
--- OUTSIDE RECORDS SUMMARY | 2025-02-21 09:45 | XMS_ITS | Encounter Summary ---
[facility] Address [address] [place] [address] Care Team Providers Care Supervisor Electric Name Role Phone Ferny Gentile MD Primary Care Provider [phone] Reason for Visit * Reason Comments PAF 6 month follow up P AF Encounter Details Date Type Department Care Team (Late st Contact Info) Description 02/21/2025 10:45 AM EDT Office Visit [facility] [address] [facility] [address] [place] [phone] Sorin Kearney PA-C [address] [facility] [address] [place] [id number] 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); Paroxysmal 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; intermediate frame tender current use of antiarrhythmic medical therapy; PVC [...] were not included. Cardiac Electrophysiology Outpatient Note [facility] Office Visit Luz Skaggs [id number] 09/20/2024 Primary Care Physician: Ferny Gentile MD [...] 92-implant in place S/p lumbar fusion 2017 [facility]. History of Present Illness: Luz Skaggs is [...] rhinitis Arrhythmia PVC'S Holter Jan 2015-=9% PVC [place] Arthritis Atrial fibrillation PAF per event recorder [...] Hold coumadin x 2 days.; Surgeon: Barry eHnnessy MD; Location: [facility] INVASIVE LOCATION; Service: [...] Onset Heart disease Mother Angie Arthritis Mother Anige Heart failure Mother Angie COPD Mother Angie [...] drops by mouth Daily., Disp: , Rfl: mjwque-otxwuvhvl-mmhobuejf sulfates (SUPREP) 17.5-3.13-1.6 GM/177ML solution oral solution, [...] or concerns. Sorin Kearney PA-C Cardiac Electrophysiology [facility] documented in this encounter Plan of Treatment Upcoming Encounters Date Type Department Care Team (Late st Contact Info) Description 06/30/2025 11:30 AM EST Office Visit [facility] [address] [place] [address] David Bernstein MD [address] [place] [address] 10/03/2025 2:45 PM EDT Office Visit [facility] [address] [facility] [address] [place] [address] Yon Govea MD [address] [facility] [address] [place], [place] [phone] 06/14/2026 1:30 PM EST Office Visit [facility] [address] [place] [address] [place] [address] Wojciech Flores MD [address] [facility] [address] [place], [place] [phone] Scheduled Orders Name Type Priority Associated Diagnoses Orde r Schedule Cardiology Scan Cardiac Services Ord ered: 02/21/2025 documented as of this encounter Procedures Procedure Name Priority Date/Time Associated Diagnosis Comments ECG 12-LEAD Routine 02/21/2025 intermediate frame tender current use of antiarrhythmic medical therapy documented [...] were not included. Cardiac Electrophysiology Outpatient Note [facility] Office Visit Luz Skaggs [id number] 09/20/2024 Primary Care Physician: Ferny Gentile MD [...] 92-implant in place S/p lumbar fusion 2017 [facility]. History of Present Illness: Luz Skaggs is [...] rhinitis Arrhythmia PVC'S Holter Jan 2015-=9% PVC [place] Arthritis Atrial fibrillation PAF per event recorder [...] drops by mouth Daily., Disp: , Rfl: vbafxe-fxikoshyu-qcnsxzuqn sulfates (SUPREP) 17.5-3.13-1.6 GM/177MLsolution oral solution, DILUTE; [...] Echo Complete W/ Cont if Necessary Per Iufltnjw26/27/2025 5:06 PM Interpretation Summary Left ventricular systolic [...] questions orconcerns. Sorin Kearney PA-C Cardiac Electrophysiology [facility] Sorin Kearney PA-C ECG ORDERABLES Final Result documented in this encounter Visit Diagnoses Diagnosis Heart failure with improved ejection fraction (HFimpEF)- Primary Paroxysmal 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 Atrial fibrillation [facility] current use of antiarrhythmic medical therapy PVC (premature ventricular contraction) Other premature beats Presence of cardiac pacemaker Cardiac pacemaker in situ documented in this encounter Care Teams Supervisor Electric Relationship Specialty Start Date End Date Ferny Gentile MD [facility] [address] [facility] [address] [place] [address] PCP - General 06/11/15 documented as of this encounter
--- OUTSIDE RECORDS SUMMARY | 2025-02-28 09:46 | XMS_ITS | Encounter Summary ---
Author Organization [facility] Address [address] [place] [address] Care Team Providers Care Strip Winder Name Role Phone Ferny Gentile MD Primary Care Provider [phone] Reason for Visit * Diagnostic Imaging (Routine) - Closed Specialty Diagnoses / Procedures Referred By Contac t Referred To Contact Radiology Diagnoses Other screening mammogram Procedures Mammo Screening Modified With Tomosynthesis Right With CAD Mammo Screening Modified With Tomosynthesis Right With CAD Ferny Gentile MD [address] [place] [address] [address] Phone: tel: fax: Referral ID Status Reason Start Date Expiration Date Visits Re quested Visits Authorized [id number] Closed 06/23/2024 06/23/2025 1 1 Encounter Details Date Type Department Care Team (Latest Contact Info) Description 02/28/2025 10:46 AM EDT - 02/28/2025 11:59 PM EDT Hospital Encounter [facility] [address] [place] [address] Ferny Gentile MD [address] [place] [address] [address] Other screening mammogram Discharge Disposition: Home or Self Care Social History Tobacco Use Types Packs/Day [...] on file documented as of this encounter Medications at Time of Discharge acetaminophen (TYLENOL) 500 MG tablet Take 1 tablet by mouth Every 8 (Eight) Hours As Needed. alendronate (FOSAMAX) 70 MG tablet Take 1 tablet by mouth 1 (One) Time Per Week. cetirizine (zyrTEC) 10 MG tablet Take 1 tablet by mouth Daily. 30 tablet 1 3 Cholecalciferol (VITAMIN D-3 PO) Take 1 tablet by mouth Daily. coenzyme Q10 100 MG capsule Take 2 capsules by mouth Daily. colestipol (COLESTID) 1 g tablet Take 1 tablet by mouth Daily. 4 dofetilide (TIKOSYN) 125 MCG capsule Take 1 capsule by mouth Every 12 (Twelve) Hours. 180 capsule 3 5 enoxaparin sodium (LOVENOX) 80 MG/0.8ML solution prefilled syringe syringe Inject 0.8 mL under the skin into the appropriate area as directed Every 12 (Twelve) Hours. Or as directed by anticoagulation clinic. *Start on 02/26/25* 1.6 mL 5 estradiol (ESTRACE) 0.1 MG/GM vaginal cream As Needed. 5 ezetimibe (ZETIA) 10 MG tablet Take 1 tablet by mouth Daily. 8 folic acid (FOLVITE) 1 MG tablet Take 1 tablet by mouth Daily. 90 tablet 3 5 furosemide (LASIX) 20 MG tablet Take 2 tablets by mouth 3 (Three) Times a Week. And an additional one tablet as needed for weight gain >2 lbs in 24 hours 90 tablet 3 4 guaiFENesin (MUCINEX) 600 MG 12 hr tablet Take 2 tablets by mouth As Needed for Cough. Inclisiran Sodium 284 MG/1.5ML solution prefilled syringe Inject 1.5 mL under the skin into the appropriate area as directed Every 6 (Six) Months. ipratropium (ATROVENT) 0.06 % nasal spray Administer 2 sprays into the nostril(s) as directed by provider 2 (Two) Times a Day As Needed. lactobacillus acidophilus (RISAQUAD) capsule capsule Take 1 capsule by mouth Daily. 1 capsule 1 3 methotrexate 2.5 MG tablet Take 6 tablets by mouth 1 (One) Time Per Week. 72 tablet 5 methylPREDNISolon e (MEDROL) 4 MG dose pack take by mouth as directed on inside of package 5 metoprolol succinate XL (Toprol XL) 50 MG 24 hr tabletIndications :Paroxysmal 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 Take 1 tablet by mouth Daily. 90 tablet 1 3 Myrbetriq 50 MG tablet sustained-release 24 hour 24 hr tablet Take 25 mg by mouth Daily. 4 ofloxacin (OCUFLOX) 0.3 % ophthalmic solution 5 pantoprazole (PROTONIX) 40 MG EC tabletIndications :Gastroesophageal reflux disease without esophagitis Take 1 tablet by mouth Daily. 60 tablet 2 3 Peppermint Oil (IBGARD PO) Take 20 drops by mouth Daily. sodium-potassium- magnesium sulfates (SUPREP) 17.5-3.13-1.6 GM/177ML solution oral solution DILUTE; DRINK FULL AMOUNT EARLY EVENING BEFORE AND NEXT MORNING AT LEAST 4-5 HR BEFORE PROCEDURE; FOLLOW W 960 ML WATER PO 5 warfarin (COUMADIN) 5 MG tablet TAKE 1 TO 1 & 1/2 (ONE TO ONE & ONE-HALF) TABLETS BY MOUTH ONCE DAILY OR DIRECTED BY THE ANTICOAGULATION CLINIC 135 tablet 5 03/07/20 25 documented as of this encounter Plan of Treatment Upcoming Encounters Date Type Department Care Team (Late st Contact Info) Description 06/30/2025 11:30 AM EST Office Visit [facility] [address] [facility] [address] [place] [phone] David Bernstein MD 330 [facility] 100 [place] [address] 10/03/2025 2:45 PM EDT Office Visit [facility] [address] [facility] [address] [place] [phone] Yon Govea MD [facility]0 [facility] [address] [place] [address] 06/14/2026 1:30 PM EST Office Visit [facility] [address] [facility] [place] [place] [address] Wojciech Flores MD [address] [place], [place] [phone] documented as of this encounter Procedures Procedure Name Priority Date/Time Associated Diagnosis Comments MAMMO SCREENING MODIFIED WITH TOMOSYNTHESIS RIGHT W CAD Routine 02/28/2025 11:06 AM EDT Other screening mammogram documented in this encounter Results * Mammo Screening Modified With Tomosynthesis Right With CAD (02/28/2025 11:06 AM EDT) Anatomical Region Laterality Modality Breast Right Mammography 03/02/2025 1:10 PM EDT Impressions 03/02/2025 1:15 PM EDT No mammographic findings suspicious for malignancy. RECOMMENDATION: Continue annual screening mammography. BI-RADS CATEGORY 1, NEGATIVE. CAD was utilized. The standard false-negative rate of mammography is between 10% and 25%. Complex patterns or increased breast density will markedly elevate the false-negative rate of mammography. A letter, in lay terminology, with the results of this exam will be mailed to the patient. 03/02/2025 1:[address] Cheri Joe MD on Narrative 03/02/2025 1:15 PM EDT RIGHT SCREENING MAMMOGRAM WITH TOMOSYNTHESIS: HISTORY: The patient has a history of a left mastectomy. She has no current right breast complaints. TECHNIQUE: Right CC and MLO low dose full field digital breast tomosynthesis imaging was performed with 2D and 3D acquisitions. COMPARISON: 02/26/2024, 02/23/2023, 11/20/2021, 10/22/2021, 08/26/2021, 08/20/2020, 06/29/2019, 11/03/2018 FINDINGS: The breast tissue is heterogeneously dense, which may obscure small masses. The right fibroglandular pattern is stable. There are no suspicious masses, worrisome calcifications, nonsurgical areas of architectural distortion, or other secondary signs of malignancy. Ferny Gentile MD IMG MAMMOGRAPHY ORDERABLES Fin al Result documented in this encounter Visit Diagnoses Diagnosis Other screening mammogram documented in this encounter Care Teams Strip Winder Relationship Specialty Start Date End Date Ferny Gentile MD [address] [place] [address] [place] [address] PCP - General 06/11/15 documented as of this encounter
--- OUTSIDE RECORDS SUMMARY | 2025-04-20 14:55 | XMS_ITS | Encounter Summary ---
[facility] Address [address] [place] [address] Care Team Providers Care Anthropology Professor Name Role Phone Ferny Gentile MD Primary Care Provider Encounter Details Date Type Department Care Team (Late st Contact Info) Description 02/17/2025 Anticoagulation Visit [facility] [address] [place] [phone] Karen Mace, Embedder Social History Tobacco Use Types Packs/Day Years [...] this encounter Progress Notes * Karen Mace, Embedder - 02/17/2025 1:35 PM EDT [facility] Progress Note Patient Demographics Method of INR reporting: [employer] HOME MONITOR Estimated OOP Cost: Indication: Paroxsymal Atrial Fibrillation (I48.0) Referring Provider Wojciech Flores MD Reason patient is not on a DOAC: Undetermined Goal INR: 2-3 Warfarin Start Date Fall 2014 Reason patient is not on home monitor: [id number]: CHF (1), HTN (1), Age >74 (2), [...] Naranjo Preferred contact number: Alternative contact number(s): [phone] ([employer]) Patient Appropriate for WarfNoCall ? [...] questions at this time. Karen Mace CPhT, [facility] 08:38 EDT 02/21/2025 Hernan Mathis, MadisonD, have reviewed the note in full and agree with the assessment and plan. Patient must check INR 02/24 for [employer] requirements. 02/21/25 12:12 EDT documented in this encounter Plan of Treatment Upcoming Encounters Date Type Department Care Team (Late st Contact Info) Description 06/30/2025 11:30 AM EST Office Visit [facility] RHEUMATOLOGY [address] [place] [address] David Bernstein MD [address] [place] [address] 10/03/2025 2:45 PM EDT Office Visit [facility] CARDIOLOGY [address] [facility] [address] [place] [address] Yon Govea MD [address] [facility] [address] [place], [place] [id number] 06/14/2026 1:30 PM EST Office Visit [facility] CARDIOLOGY [address] [place] [address] [address] Wojciech Flores MD [address] [facility] [address] [place], [place] [id number] documented as of this encounter Procedures Procedure Name Priority Date/Time Associated Diagnosis Comments PROTIME-INR Routine 02/17/2025 documented in this encounter Results * Protime-INR (02/17/2025) INR 2.70 Blood 02/17/2025 us Historical Provider LAB BLOOD ORDERABLES Agata l Result documented in this encounter Visit Diagnoses Not on filedocumented in this encounter Care Teams Anthropology Professor Relationship Specialty Start Date End Date Ferny Gentile MD [address] [facility] [address] [place] [address] PCP - General 06/11/15 documented as of this encounter
--- OUTSIDE RECORDS SUMMARY | 2025-04-20 14:55 | XMS_ITS | Encounter Summary ---
[facility] Address [address] [place] [address] Care Team Providers Care Vehicle Service Agent Name Role Phone Ferny Gentile MD Primary Care Provider [phone] Reason for Visit * Reason Comments Med Refill Encounter Details Date Type Department Care Team (Late st Contact Info) Description 01/30/2024 Refill [facility] [address] [place] [address] [address] [place] [address] Wojciech Flores MD [address] [facility] [place] [address] Med Refill Social History Tobacco Use Types [...] [facility] [address] [address] David Bernstein MD [address] [facility] [address] [place] [address] 10/03/2025 2:45 PM EDT Office Visit [facility] CARDI[facility] [address] [facility] [address] [place] [address] Yon Govea MD [address] [facility] [address] [place] [address] 06/14/2026 1:30 PM EST Office Visit [facility] [address] [facility] [place] [address] Wojciech Flores MD [address] [place], [place] [phone] documented as of this encounter Visit Diagnoses Not on filedocumented in this encounter Care Teams Vehicle Service Agent Relationship Specialty Start Date End Date Ferny Gentile MD [address] [facility] [address] [place] [address] PCP - General 06/11/15 documented as of this encounter
--- OUTSIDE RECORDS SUMMARY | 2025-04-20 14:55 | XMS_ITS | Encounter Summary ---
[facility] Address [address] [place] [address] Care Team Providers Care Party Plan Sales Unit Advisor Name Role Phone Ferny Gentile MD Primary Care Provider [phone] Encounter Details Date Type Department Care Team (Late st Contact Info) Description 02/07/2025 Telephone [facility] [address] [place] [place] [address] Dayron Diallo, Info Specialist Social History Tobacco Use Types Packs/Day [...] Notes * Telephone Encounter - Dayron Diallo Info Specialist - 02/07/2025 10:[address] Quiroz office to confirm procedure (Colonoscopy 03/02) and warfarin hold duration [phone] ext. 4 for Student Services Coordinator. LVM for Student Services Coordinator to call anticoagulation clinic back.Clinic phone number provided. Dayron Diallo [facility] 02/07/2025 10:02 EDT documented in this encounter Plan of Treatment Upcoming Encounters Date Type Department Care Team (Late st Contact Info) Description 06/30/2025 11:30 AM EST Office Visit [facility] RHEUMATOLOGY 330 [facility] 100 [place] [address] David Bernstein MD 330 [facility] 100 [place] [address] 10/03/2025 2:45 PM EDT Office Visit [facility] CARDI[facility] 3000 [facility] [address] [place] [address] Yon Govea MD 1720 [facility] [address] [place], [place] [address] 06/14/2026 1:30 PM EST Office Visit [facility] CARDI[facility] [address] [place] [address] Wojciech Flores MD [address] [place] [address] documented as of this encounter Visit Diagnoses Not on filedocumented in this encounter Care Teams Party Plan Sales Unit Advisor Relationship Specialty Start Date End Date Ferny Gentile MD 1210 [facility] [address] [place] [address] PCP - General 06/11/15 documented as of this encounter
--- OUTSIDE RECORDS SUMMARY | 2025-04-20 14:55 | XMS_ITS | Encounter Summary ---
[facility] Organization [facility] Address [address] [place] [address] Care Team Providers Care Obiee Report Developer Name Role Phone Ferny Gentile MD Primary Care Provider [phone] Encounter Details Date Type Department Care Team (Late st Contact Info) Description 07/15/2024 Results Follow-Up [facility] RHEUMATOLOGY [address] [address] David Bernstein MD 330 [facility] 100 [place] [address] Social History Tobacco Use Types [...] Visit [facility]UM[facility] 330 [facility] 100 [place] [address] David Bernstein MD 330 [facility] 100 [place] [address] 10/03/2025 2:45 PM EDT Office Visit [facility] CARDIOLOGY 3000 [facility] [address] [place] [address] Yon Govea MD [address] [facility] 400 [place] [address] 06/14/2026 1:30 PM EST Office Visit [facility] CARDIOLOGY 210 [facility] [place] [place] [address] Wojciech Flores MD [address] [place] [address] documented as of this encounter Visit Diagnoses Not on filedocumented in this encounter Care Teams Obiee Report Developer Relationship Specialty Start Date End Date Ferny Gentile MD 1210 [facility] [address] [place] [address] PCP - General 06/11/15 documented as of this encounter
--- OUTSIDE RECORDS SUMMARY | 2025-04-20 14:55 | XMS_ITS | Encounter Summary ---
[facility] Organization [facility] Address [address] [place] [address] Care Team Providers Care Service And Repair Supervisor Name Role Phone Ferny Gentile MD Primary Care Provider [phone] Encounter Details Date Type Department Care Team (Latest Contact Info) Description 11/06/2021 Anticoagulation Visit [facility] [address] [place] [address] [address] [place] [address] Juan Ramon King, Baker Chef Paroxysmal 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 (Primary Dx) Social History [...] Description 06/30/2025 11:30 AM EST Office Visit [facility] RHEUMATOLOGY [address] [address] David Bernstein MD 330 [facility] 100 [place], [place] [address] 10/03/2025 2:45 PM EDT Office Visit [facility] CARDIOLOGY 3000 [facility] [address] [place] [address] Yon Govea MD 1720 [facility] [address] [place] [address] 06/14/2026 1:30 PM EST Office Visit [facility] CARDIOLOGY [address] [place] [address] Wojciech Flores MD 1720 [facility] [address] [place], [place] [address] documented as of this encounter Visit Diagnoses Diagnosis Paroxysmal 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- Primary Atrial fibrillation documented in this encounter Care Teams Service And Repair Supervisor Relationship Specialty Start Date End Date Ferny Gentile MD 1210 [facility] [address] [place] [address] PCP - General 06/11/15 documented as of this encounter
--- OUTSIDE RECORDS SUMMARY | 2025-04-20 14:55 | XMS_ITS | Encounter Summary ---
[facility] Address [address] [place] [address] Care Team Providers Care Professional Shopper Name Role Phone Ferny Gentile MD Primary Care Provider [phone] Encounter Details Date Type Department Care Team (Late st Contact Info) Description 09/15/2024 Results Follow-Up [facility] RHEUMATOLOGY [address] [address] David Bernstein MD 330 [facility] 100 [place] [address] Social History Tobacco Use Types [...] Visit [facility] R[facility] 330 [facility] 100 [place] [address] David Bernstein MD 330 [facility] 100 [place] [address] 10/03/2025 2:45 PM EDT Office Visit [facility] CARDIOLOGY 3000 [facility] [address] [place] [address] Yon Govea MD [address] [facility] 400 [place] [address] 06/14/2026 1:30 PM EST Office Visit [facility] CARDIOLOG[facility] 210 [facility] [place] [address] Wojciech Flores MD [address] [place] [address] documented as of this encounter Visit Diagnoses Not on filedocumented in this encounter Care Teams Professional Shopper Relationship Specialty Start Date End Date Ferny Gentile MD 1210 [facility] [address] [place] [address] PCP - General 06/11/15 documented as of this encounter
--- OUTSIDE RECORDS SUMMARY | 2025-04-20 14:55 | XMS_ITS | Encounter Summary ---
Author [facility] Address [address] [place] [address] Care Team Providers Care Hand Inspector Name Role Phone Ferny Gentile MD Primary Care Provider [phone] Encounter Details Date Type Department Care Team (Late Contact Info) Description 02/04/2022 Anticoagulation Visit [facility] 1720 [facility] 606 [place] [address] Hernan Mckenna, PharmD 1740 [place] [address] Paroxysmal 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 (Primary Dx) Social History [...] Description 06/30/2025 11:30 AM EST Office Visit [facility] RHEUMATOLOGY [address] [place] [address] David Bernstein MD [address] [address] 10/03/2025 2:45 PM EDT Office Visit [facility] [address] [facility] [address] [place] [address] Yon Govea MD 1720 [facility] [address] 400 [place], [place] [address] 06/14/2026 1:30 PM EST Office Visit [facility] CARDIOLOG[facility] [address] [place] [address] Wojciech Flores MD [address] [place] [address] documented as of this encounter Procedures Procedure Name Priority Date/Time Associated Diagnosis Comments PROTIME-INR Routine 02/04/2022 documented in this encounter Results * Protime-INR (02/04/2022) INR 1.90 Blood us Historical Provider LAB BLOOD ORDERABLES Agata l Result documented in this encounter Visit Diagnoses Diagnosis Paroxysmal 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- Primary Atrial fibrillation documented in this encounter Care Teams Hand Inspector Relationship Specialty Start Date End Date Ferny Gentile MD 1210 [facility] [address] [place] [address] PCP - General 06/11/15 documented as of this encounter
--- OUTSIDE RECORDS SUMMARY | 2025-04-20 14:55 | XMS_ITS | Encounter Summary ---
[facility] Organization [facility] Address [address] [place] [address] Care Team Providers Care Expressive Therapist Name Role Phone Ferny Gentile MD Primary Care Provider [phone] Encounter Details Date Type Department Care Team (Latest Contact Info) Description 09/24/2018 Anticoagulation Visit [facility] [address] [place] [address] [address] [place] [address] Orville Reyes Paroxysmal 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 Social History [...] Office Visit [facility] RHE[facility] [address] [address] David Bernstein MD 330 [facility] 100 [place] [address] 10/03/2025 2:45 PM EDT Office Visit [facility] C[facility] 3000 [facility] [address] [place] [address] Yon Govea MD 1720 [facility] [address] [place] [address] 06/14/2026 1:30 PM EST Office Visit [facility] CARD[facility] [address] [place] [address] Wojciech Flores MD [address] [place] [address] documented as of this encounter Visit Diagnoses Diagnosis Paroxysmal 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 Atrial fibrillation documented in this encounter Additional Health Concerns Infection Onset Date Last Indicated Resolved Time COVID Screen (preop/placement) 12/11/2019 12/11/2019 12/12/2019 2:04 PM EDT COVID Screen (preop/placement) 02/12/2020 02/12/2020 02/14/2020 7:46 AM EDT COVID Screen (preop/placement) 01/15/2021 01/15/2021 01/15/2021 10:59 PM EDT documented as of this encounter Care Teams Expressive Therapist Relationship Specialty Start Date End Date Ferny Gentile MD 1210 [facility] [address] [facility] [address] PCP - General 06/11/15 documented as of this encounter
--- OUTSIDE RECORDS SUMMARY | 2025-04-20 14:56 | XMS_ITS | Encounter Summary ---
[facility] Address [address] [place] [address] Care Team Providers Care Manager Of Digital Name Role Phone Ferny Gentile MD Primary Care Provider Encounter Details Date Type Department Care Team (Late st Contact Info) Description 11/15/2024 Results Follow-Up [facility] RHEUMATOLOGY [address] [address] David Bernstein MD 330 [facility] 100 [place] [address] Social History Tobacco Use Types [...] Visit [facility] 330 [facility] 100 [place] [address] David Bernstein MD 330 [facility] 100 [place] [address] 10/03/2025 2:45 PM EDT Office Visit [facility] CARDI[facility] 3000 [facility] [address] [place] [address] Yon Govea MD [address] [facility] 400 [place] [address] 06/14/2026 1:30 PM EST Office Visit [facility] CARDIOLOGY 210 [facility] [place] [address] Wojciech Flores MD [address] [place] [address] documented as of this encounter Visit Diagnoses Not on filedocumented in this encounter Care Teams Manager Of Digital Relationship Specialty Start Date End Date Ferny Gentile MD 1210 [facility] [address] [place] [address] PCP - General 06/11/15 documented as of this encounter
--- OUTSIDE RECORDS SUMMARY | 2025-04-20 14:56 | XMS_ITS | Encounter Summary ---
[facility] Address [address] [place] [address] Care Team Providers Care Cup Setter Lockstitch Name Role Phone Ferny Gentile MD Primary Care Provider [phone] Encounter Details Date Type Department Care Team (Late st Contact Info) Description 11/10/2023 Anticoagulation Visit [facility] [address] [place] [address] Karen Mace, Mallet Cutter Social History Tobacco Use Types Packs/Day Years [...] Description 06/30/2025 11:30 AM EST Office Visit [facility] 330 [facility] 100 [place] [address] David Bernstein MD 330 [facility] 100 [place] [address] 10/03/2025 2:45 PM EDT Office Visit [facility] C[facility] 3000 [facility] [address] [place] [address] Yon Govea MD 4920 [facility] [address] [place] [address] 06/14/2026 1:30 PM EST Office Visit [facility] CARD[facility] [address] [place] [address] Wojciech Flores MD [address] [place], [place] [address] documented as of this encounter Procedures Procedure Name Priority Date/Time Associated Diagnosis Comments PROTIME-INR Routine 11/06/2023 documented in this encounter Results * Protime-INR (11/06/2023) INR 2.70 Blood 11/06/2023 Historical Provider LAB BLOOD ORDERABLES Edit ed Result - Final documented in this encounter Visit Diagnoses Not on filedocumented in this encounter Care Teams Cup Setter Lockstitch Relationship Specialty Start Date End Date Ferny Gentile MD 1210 [facility] [address] [place] [address] PCP - General 06/11/15 documented as of this encounter
--- OUTSIDE RECORDS SUMMARY | 2025-04-20 14:56 | XMS_ITS | Encounter Summary ---
[facility] Address [address] [place] [address] Care Team Providers Care Suction Plate Roller Hand Name Role Phone Ferny Gentile MD Primary Care Provider [phone] Encounter Details Date Type Department Care Team (Late st Contact Info) Description 10/31/2024 Results Follow-Up [facility] CARD[facility] 1720 [facility] 400 [place] [address] Yon Govea MD 1720 [facility] 400 [place] [id number] Social History Tobacco Use Types Packs/Day Years [...] [facility] R[facility] [address] [facility] [address] [place] [address] David Bernstein MD 330 [facility] [address] [place] [address] 10/03/2025 2:45 PM EDT Office Visit [facility] CARDI[facility] [address] [place] [address] Yon Govea MD [facility] [address] [place] [address] 06/14/2026 1:30 PM EST Office Visit [facility] CARDI[facility] 210 [facility] [place] [place] [address] Wojciech Flores MD [address] [place] [address] documented as of this encounter Visit Diagnoses Not on filedocumented in this encounter Care Teams Suction Plate Roller Hand Relationship Specialty Start Date End Date Ferny Gentile MD 1210 [facility] [address] [place] [address] PCP - General 06/11/15 documented as of this encounter
--- OUTSIDE RECORDS SUMMARY | 2025-04-20 14:56 | XMS_ITS | Encounter Summary ---
Author Organization [employer] ([place], [place], [place], [place], [place]) Address [address] [place] [address] Care Team Providers Care Principal Software Architect Name Role Phone SeferinoSakinat Primary Care Provider [phone] Encounter Details Date Type Department Care Team (Late st Contact Info) Description 12/14/2018 Transcribed Document [facility] Family Medicine [facility] [place] [address] ProviderArt MD [address] [place] [address] Social History Tobacco Use Types Packs/Day [...] 12/14/2018 6:13 EDT by Ana Overton Patient Critical Care Paramedic Height and Weight, Clinical Dosing Height Source : Stated Height Entry Format : [place] Height, Feet : 5 ft(Converted to: 152 cm, 60 Inch) Height, Inches : 7 Inch(Converted to: 0 ft 7 Inch, 17.78 cm) Clinical Height : 170.18 cm Weight Source : Standing scale Weight Entry Format : [place] Clinical Dosing Weight : 90.91 kg Weight, Pounds : 200 lb Body Surface Area (BSA) : 2.02 m2 Body Mass Index : 31.4 kg/m2 (HI) [place] Body Weight : 61 kg Ana Overton, Patient Critical Care Paramedic - 12/14/2018 6:13 EDT Electronically signed by Brina Zamarripa Conversion Healthcare Applications Analyst Cerner at 08/18/2022 11:28 AM CDT documented in this encounter Plan of Treatment Not on file documented as of this encounter Visit Diagnoses Not on filedocumented in this encounter Care Teams Principal Software Architect Relationship Specialty Start Date End Date Ferny Gentile [address] [place] [address] PCP - General 05/22/22 documented as of this encounter
--- OUTSIDE RECORDS SUMMARY | 2025-04-20 14:56 | XMS_ITS | Encounter Summary ---
Author Organization [employer] ([place], [place], [place], [place], [place]) Address [address] [place] [address] Care Team Providers Care Ware Finisher Name Role Phone Douglas Gentileght Primary Care Provider [phone] Encounter Details Date Type Department Care Team (Late st Contact Info) Description 12/15/2018 Transcribed Document [facility] Family Medicine [facility] [place] [address] ProviderArt MD [address] [place] [address] Social History Tobacco Use Types Packs/Day [...] on filedocumented in this encounter Care Teams Ware Finisher Relationship Specialty Start Date End Date Ferny Gentile [address] [place] [address] PCP - General 05/22/22 documented as of this encounter
--- OUTSIDE RECORDS SUMMARY | 2025-04-20 14:56 | XMS_ITS | Encounter Summary ---
Author Organization [employer] ([place], [place], [place], [place], [place]) Address [address] [place] [address] Care Team Providers Care Onyx Chip Terrazzo Worker Name Role Phone Douglas Gentileght Primary Care Provider [phone] Encounter Details Date Type Department Care Team (Late st Contact Info) Description 12/14/2018 Transcribed Document [facility] Family Medicine [facility] [place] [address] ProviderArt MD [address] [place] [address] Social History Tobacco Use Types Packs/Day [...] on filedocumented in this encounter Care Teams Onyx Chip Terrazzo Worker Relationship Specialty Start Date End Date Ferny Gentile [address] [place] [address] PCP - General 05/22/22 documented as of this encounter
--- OUTSIDE RECORDS SUMMARY | 2025-04-20 14:56 | XMS_ITS | Encounter Summary ---
Author Organization [employer] ([place], [place], [place], [place], [place]) Address [address] [place] [address] Care Team Providers Care Distributor Operator Name Role Phone Sakina Gentilet Primary Care Provider [phone] Encounter Details Date Type Department Care Team (Late st Contact Info) Description 12/02/2018 Transcribed Document [facility] Family [facility] [place] [address] ProviderArt MD [address] [place] [address] Social History Tobacco Use Types Packs/Day [...] [employer] Date : 12/02/2018 EDT Joint Manager Mba Attended Academy : Yes Joint Manager Mba Name : Litzy Naranjo [phone] Type of Surgery : Anterior Hip Replacement, [...] from sitting : Moderate 4. Bending to floor/orange picking supervisor an object : Moderate 5. Lying in [...] on filedocumented in this encounter Care Teams Distributor Operator Relationship Specialty Start Date End Date Ferny Gentile [address] [place] [address] PCP - General 05/22/22 documented as of this encounter
--- OUTSIDE RECORDS SUMMARY | 2025-04-20 14:56 | XMS_ITS | Encounter Summary ---
Author Organization [employer] ([place], [place], [place], [place], [place]) Address [address] [place] [address] Care Team Providers Care Equipment Washer Name Role Phone Ferny Gentile Primary Care Provider [phone] Encounter Details Date Type Department Care Team (Late st Contact Info) Description 12/14/2018 Transcribed Document [facility] Family Medicine [place] [address] ProviderArt MD [address] [place] [address] Social History Tobacco Use Types Packs/Day [...] Source : Stated Height Entry Format : [place] Height, Feet : 5 ft(Converted to: 152 cm, 60 Inch) Height, Inches : 7 Inch(Converted to: 0 ft 7 Inch, 17.78 cm) Clinical Height : 170.18 cm Weight Source : Standing scale Weight Entry Format : [place] Clinical Dosing Weight : 90.91 kg Weight, Pounds : 200 lb Body Surface Area (BSA) : 2.02 m2 Body Mass Index : 31.4 kg/m2 (HI) [place] Body Weight : 61 kg SHERLYN THOMPSON [...] Obtained From : Patient Primary Language : Syriac Preferred Communication Mode : Verbal Communication Barrier [...] Level : 46 or > High Risk [place] Fall Interventions : Adequate lighting, Assistive devices [...] the text rendition version of the form. [place] Coma [place] Best Motor Response : Obey commands Marcella Best Verbal Response : Oriented [place] Eye Opening Response : Spontaneous [place] Coma Score : 15 SHERLYN THOMPSON RN - 12/14/2018 6:06 EDT documented in this encounter Plan of Treatment Not on file documented as of this encounter Visit Diagnoses Not on filedocumented in this encounter Care Teams Equipment Washer Relationship Specialty Start Date End Date Ferny Gentile [address] [place] [address] PCP - General 05/22/22 documented as of this encounter
--- OUTSIDE RECORDS SUMMARY | 2025-04-20 14:56 | XMS_ITS | Encounter Summary ---
Author Organization [employer] ([place], [place], [place], [place], [place]) Address [address] [place] [address] Care Team Providers Care Chain Carrier Name Role Phone SeferinoSakinat Primary Care Provider [phone] Encounter Details Date Type Department Care Team (Late st Contact Info) Description 12/14/2018 Transcribed Document [facility] [place] [address] ProviderArt MD [address] [place] [address] Social History Tobacco Use Types Packs/Day [...] Empathic/Engaged listening, Family/Significant other supported Spiritual and Rastafari : Prayer shared Change, Adjustment and Loss : Provided support for current loss/grief Intervention Comment/Summary Points : Prayer. YUNIER HENDERSON Chaplain-Non Cert - 12/14/2018 8:02 EDT Outcomes Appreciation Expressed : yes Gratitude Expressed : yes Spiritual Care Outcomes Comment : Comforted. YUNIER HENDERSON Chaplain-Non Cert - 12/14/2018 8:02 EDT Electronically signed by Brina Zamarripa Conversion Certified Endoscopy Technician Cerner at 08/18/2022 11:24 AM CDT documented in this encounter Plan of Treatment Not on file documented as of this encounter Visit Diagnoses Not on filedocumented in this encounter Care Teams Chain Carrier Relationship Specialty Start Date End Date Ferny Gentile [address] [place] [address] PCP - General 05/22/22 documented as of this encounter
--- OUTSIDE RECORDS SUMMARY | 2025-04-20 14:56 | XMS_ITS | Encounter Summary ---
Author Organization [employer] ([place], [place], [place], [place], [place]) Address [address] [place] [address] Care Team Providers Care Sole Blacker Name Role Phone Ferny Gentile Primary Care Provider [phone] Encounter Details Date Type Department Care Team (Late st Contact Info) Description 12/14/2018 Transcribed Document [facility] Family Medicine [facility] [place] [address] ProviderArt MD [address] [place] [address] Social History Tobacco Use Types Packs/Day [...] ipratropium 42 mcg/inh (0.06%) nasal spray 2 Irving, Nasal, BID Konsyl , Oral, Daily magnesium [...] SPENT 45 MINUTES Electronically signed by Marilou [facility] Conversion Inspector Pawnshop Detail Cerner at 08/18/2022 11:32 AM CDT documented in this encounter Plan of Treatment Not on file documented as of this encounter Visit Diagnoses Not on filedocumented in this encounter Care Teams Sole Blacker Relationship Specialty Start Date End Date Ferny Gentile [address] [place] [address] PCP - General 05/22/22 documented as of this encounter
--- OUTSIDE RECORDS SUMMARY | 2025-04-20 14:56 | XMS_ITS ---
[facility] Organization [facility] Address [address] [place] [address] Care Team Providers Care Portal Developer Name Role Phone Ferny Gentile MD Primary Care Provider [phone] Active Problems Problem Noted Date Diagnosed Date salvage determiner current use of antiarrhythmic medical therapy 09/20/2024 [...] 2014. Patient on anticoagulation/recommended aspirin daily. 14-day monitor and storage bin tender 06/29/2019: Average heart rate 74 bpm. PVCs [...]
--- OUTSIDE RECORDS SUMMARY | 2025-04-20 14:56 | XMS_ITS | Encounter Summary ---
[facility] Organization [facility] Address [address] [place] [address] Care Team Providers Care Curing Press Operator Name Role Phone Ferny Gentile MD Primary Care Provider [phone] Encounter Details Date Type Department Care Team (Late st Contact Info) Description 03/02/2025 Results Follow-Up [facility] CANCER RISK ASSESSMENT [address] [place] [address] Dee Dee Ivan Social History [...] have attempted to contact the patient via Ausra message to discuss the risk assessment results.The patient has not yet responded. My contact information was included in the Mailsuitet message. * Dee Dee Ivan - 03/02/2025 11:51 AM EDT I sent the patient a Ausra message asking for a call to discuss assessment results. documented in this encounter Plan of Treatment Upcoming Encounters Date Type Department Care Team ([facility] st Contact Info) Description 06/30/2025 11:30 AM EST Office Visit [facility] RHEUMATOLOGY [address] [place] [address] David Bernstein MD [address] [place], [place] [address] 10/03/2025 2:45 PM EDT Office Visit [facility] CARDIOLOGY [address] [facility] [address] [place] [address] Yon Govea MD [address] [facility] [address] [place] [address] 06/14/2026 1:30 PM EST Office Visit [facility] CARDIOLOGY [address] [place] [address] Wojciech Flores MD [address] [facility] [address] [place] [address] documented as of this encounter Visit Diagnoses Not on filedocumented in this encounter Care Teams Curing Press Operator Relationship Specialty Start Date End Date Ferny Gentile MD 1210 [facility] [address] [place] [address] PCP - General 06/11/15 documented as of this encounter
--- OUTSIDE RECORDS SUMMARY | 2025-04-20 14:56 | XMS_ITS | Encounter Summary ---
[facility] Organization [facility] Address [address] [place] [address] Care Team Providers Care Professor Of Marketing Name Role Phone Ferny Gentile MD Primary Care Provider [phone] Encounter Details Date Type Department Care Team (Late st Contact Info) Description 11/02/2024 Results Follow-Up [facility] RHEUMATOLOGY [address] [address] David Bernstein MD [address] [address] Social History Tobacco Use Types [...] [facility] RHEUMATOLOGY 330 [facility] 100 [place] [address] David Bernstein MD 330 [facility] 100 [place] [address] 10/03/2025 2:45 PM EDT Office Visit [facility] CARDIOLOGY 3000 [facility] [address] [place] [address] Yon Govea MD [address] [facility] 400 [place] [address] 06/14/2026 1:30 PM EST Office Visit [facility] CARDIOLOGY 210 [facility] [place] [place] [address] Wojciech Flores MD [address] [place] [address] documented as of this encounter Visit Diagnoses Not on filedocumented in this encounter Care Teams Professor Of Marketing Relationship Specialty Start Date End Date Ferny Gentile MD [address] [facility] [address] [place] [address] PCP - General 06/11/15 documented as of this encounter
--- OUTSIDE RECORDS SUMMARY | 2025-04-20 14:56 | XMS_ITS | Clinical Summary ---
[facility] Organization [facility] Address [address] [place] [address] Care Team Providers Care Pharmacy Coordinator Name Role Phone Ferny Gentile MD Primary Care Provider [phone] Allergies Active Allergy Reactions Criticality Noted Date [...] Per Week. 72 tablet 02/03/20 25 Active sodium-potassium -magnesium sulfates (SUPREP) 17.5-3.13-1.6 GM/177ML solution oral solution [...] CLINIC 135 tablet 1 03/07/20 25 Active Active Problems Problem Noted Date Diagnosed Date intermediate current use of antiarrhythmic medical therapy [...] 2014. Patient on anticoagulation/recommended aspirin daily. 14-day saw boss 06/29/2019: Average heart rate 74 bpm. PVCs [...] Encounters Date Type Department Care Team Description 04/14/2025 Anticoagulation Visit [facility] ANTICOAGULATION CLINIC 1720 [facility] [address] [place] [address] Claudia Bauer, PharmD 04/07/2025 Anticoagulation Visit [facility] ANTICO[facility]ATION CLINIC [address] [facility] [address] [place] [address] Nuzhat Melvin [facility] 03/29/2025 Anticoagulation Visit [facility] ANTICO[facility]ATION CLINIC [address] [facility] [address] [place] [address] Claudia Bauer, PharmD 03/28/2025 Telephone [facility] ANTICO[facility]ATION CLINIC [address] [facility] [address] [place] [address] Karen Mace, Metal Mockup Maker 03/24/2025 Anticoagulation Visit [facility] ANTICOAGULATION CLINIC 17[address] [facility] [address] [place] [address] Claudia Bauer, PharmD 03/17/2025 Anticoagulation Visit [facility] ANTICOAGULATION CLINIC [address] [facility] [address] [place] [address] Karen Mace, Metal Mockup Maker 03/14/2025 Anticoagulation Visit [facility]TICO[facility]ULATION CLINIC [address] [facility] [address] [place] [address] Claudia Bauer, PharmD 03/14/2025 Telephone [facility] CLINIC [address] [facility] [address] [place] [address] Karen Mace, Metal Mockup Maker 03/10/2025 Anticoagulation Visit [facility]ICO[facility]ATION CL[facility]IC [address] [facility] [address] [place] [address] Claudia Bauer, PharmD 03/07/2025 Refill [facility] AN[facility]ICO[facility]ATION CL[facility]IC [address] [facility] [address] [place] [address] Claudia Bauer, PharmD 03/07/2025 Refill [facility] CARDIOLOGY [address] [facility] 400 [place] [address] Wojciech Flores MD Med Refill; CRAGER-MED REFILL 03/06/2025 Anticoagulation Visit [facility] ANTICOAGULATION CLINIC [address] [facility] [address] [place] [address] Claudia Bauer, PharmD 03/02/2025 Results Follow-Up [facility] CANCER RISK ASSESSMENT [address] [place] [address] Dee Dee Ivan 02/28/2025 10:46 AM EDT - 02/28/2025 11:59 PM EDT Hospital Encounter [facility] BREAST CENTER [address] [place] [address] Ferny Gentile MD Other screening mammogram Discharge Disposition: Home or Self Care 02/28/2025 Travel 02/24/2025 Anticoagulation Visit [facility] ANTICO[facility]ULATION CLINIC [address] [facility] [address] [place] [address] Dayron Diallo, Metal Mockup Maker 02/21/2025 10:45 AM EDT Office Visit [facility] CARDIOLOGY [address] [facility] [address] [place] [address] Sorin Kearney PA-C 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); Paroxysmal 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; 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 bug 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 current use of antiarrhythmic medical therapy; PVC (premature ventricular contraction); Presence of cardiac pacemaker 02/21/2025 Travel 02/21/2025 Telephone [facility] CARDIOLOG[facility] 17[address] [facility] [address] [place] [address] Wojciech Flores MD Medical Clearance 02/21/2025 Telephone [facility] ANTICO[facility]ATION [facility]INIC [address] [facility] [address] [place] [address] Karen Mace, Metal Mockup Maker 02/17/2025 Anticoagulation Visit [facility] ANTICO[facility]ATION CLINIC [address] [facility] [address] [place] [address] Karen Mace, Metal Mockup Maker 02/13/2025 Refill [facility]ICO[facility]ATION CLINIC [address] [facility] [address] [place] [address] Claudia Bauer, PharmD 02/10/2025 Telephone [facility] ANTICO[facility]ULATION CLINIC [address] [facility] [address] [place] [address] Dayron Diallo, Metal Mockup Maker 02/08/2025 Anticoagulation Visit [facility] ANTICOAGULATION CLINIC [address] [facility] [address] [place] [address] Claudia Bauer, PharmD 02/07/2025 Telephone [facility] ANTICO[facility]ULATION CLINIC [address] [facility] [address] [place] [address] Dayron Diallo, Metal Mockup Maker 02/03/2025 Anticoagulation Visit [facility] ANTICO[facility]ULATION CLINIC [address] [facility] [address] [place] [address] Dayron Diallo, Metal Mockup Maker 02/02/2025 Telephone [facility] RHEUM[facility]OLOGY 330 [facility] 100 [place] [address] David Bernstein MD 01/27/2025 Anticoagulation Visit [facility] ANTICOAGULATION CLINIC [address] [facility] [address] [place] [address] Natasha Ruano RPH 01/20/2025 Anticoagulation Visit [facility] ANTICOAGULATION CLINIC [address] [facility] [address] [place] [address] Dayron Diallo, Metal Mockup Maker from Last 3 Months Immunizations Immunization Administration Dates Next Due COVID-19 ([facility]) Purple Cap Monovalent 06/11/19,05/09/2020 Fluzone High-Dose 65+yrs 01/29/2021 Influenza, Unspecified 02/01/2022,02/08/2018 [...] Office Visit [facility] RHEUMATOLOGY [address] [place] [address] David Bernstein MD [address] [place] [address] 10/03/2025 2:45 PM EDT Office Visit [facility] CARDIOLOG[facility] [address] [facility] [address] [place] [address] Yon Govea MD 17[address] [facility] [address] [place], [place] [address] 06/14/2026 1:30 PM EST Office Visit [facility] CARDIOLOG[facility] [address] [place] [address] [address] Wojciech Flores MD 1720 [facility] [address] [place], [place] [address] Health Maintenance Due Date Last Done Comments [...] 75+ series) 2017 LIPID PANEL 08/21/2023 08/20/2022, 09/2022, 05/13/2022, Additional history exists INFLUENZA VACCINE 12/02/2024 02/19/2022, , 02/01/2022, Additional history exists COVID-19 Vaccine (6 - 2024-2 6 season) 2025 03/13/2021, 06/11/2020, 06/11/2020, Additional history exists COLONOSCOPY 02/14/2032 02/13/2022, 02/01, 07/13/2017, Additional history exists COLORECTAL CANCER SCREENING 02/14/2032 MAMMOGRAM Discontinued 03/02/2025, 02/02, 02/26/2024, Additional history exists Medical Devices Implanted Type Area Cutting Table Operator First Device Identifier Shelf Expiration Date Model / Serial / Lot Ld Pm Tendril Sts 6f52cm [id number] - [id number] - [id number] Implanted:Qty: 1 on 12/14/2019 by Barry Hennessy MD at [facility] Lead [employer] 10/01/[id number] / [id number] / [id number] Ld Pm Tendril Sts 6f46cm [id number] - [id number] - [id number] Implanted:Qty: 1 on 12/14/2019 by Barry Hennessy MD at [facility] Lead [employer] 10/01/[id number] / [id number] / [id number] Gen Pm Assurity Mri Dr Rf [id number] - [id number] - [id number] Implanted:Qty: 1 on 12/14/2019 by Barry Hennessy MD at [facility] Pacemaker [employer] 05/03/2021 [id number] / [id number] / [id number] Procedures Procedure Name Priority Date/Time Associated Diagnosis Comments PROTIME-INR Routine 04/14/2025 PROTIME-INR Routine 04/07/2025 PROTIME-INR Routine 03/29/2025 PROTIME-INR Routine 03/24/2025 PROTIME-INR Routine 03/17/2025 PROTIME-INR Routine 03/14/2025 PROTIME-INR Routine 03/10/2025 PROTIME-INR Routine 03/06/2025 MAMMO SCREENING MODIFIED WITH TOMOSYNTHESIS RIGHT W CAD Routine 02/28/2025 11:06 AM EDT Other screening mammogram PROTIME-INR Routine 02/24/2025 AMBRY GENETIC ASSESSMENT Routine 02/23/2025 9:50 AM EDT ECG 12-LEAD Routine 02/21/2025 bed bug 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 current use of antiarrhythmic medical therapy PROTIME-INR [...] use PROTIME-INR Routine 01/27/2025 PROTIME-INR Routine 01/20/2025 LIPID PANEL Routine 06/08/2022 10:16 AM EST from Last 3 Months or Most Recently Relevant to Health Maintenance Results * Protime-INR (04/14/2025) Only the most recent of14 resultswithin the time period is included. INR 2.20 Blood Historical Provider LAB BLOOD ORDERABLES Agata l Result * [...] MAMMOGRAPHY ORDERABLES Fin al Result * (ABNORMAL) GENARY GENETIC RISK ASSESSMENT QUESTIONNAIRE - , (02/23/2025 9:50 AM EDT) NCCN NCCN met(A) GENARY GENETICS Comment:High Risk Cancer Ris k Assessment 02/23/2025 9:50 AM EDT us Cas [place] MD GENETIC TESTING Final Result [facility] [address] [place] [address], [place] [phone] * ECG 12-LEAD (02/21/2025) Narrative 02/21/2025 Sorin [...] were not included. Cardiac Electrophysiology Outpatient Note [facility] Office Visit Luz Skaggs [id number] 09/20/2024 Primary Care Physician: Ferny Gentile MD [...] 92-implant in place S/p lumbar fusion 2017 [facility]. History of Present Illness: Luz Skaggs is [...] rhinitis Arrhythmia PVC'S Holter Jan 2015-=9% PVC [place] Arthritis Atrial fibrillation PAF per event recorder [...] drops by mouth Daily., Disp: , Rfl: hjzbav-uzouoporf-qeqrrrfbn sulfates (SUPREP) 17.5-3.13-1.6 GM/177MLsolution oral solution, DILUTE; [...] Echo Complete W/ Cont if Necessary Per Wkkxsntj44/27/2025 5:06 PM Interpretation Summary Left ventricular systolic [...] questions orconcerns. Sorin Kearney PA-C Cardiac Electrophysiology [facility] us Sorin Kearney PA-C ECG ORDERABLES Final Result * CBC Auto Differential (02/01/2025 8:22 AM EDT) Blood us David Bernstein MD LAB BLOOD ORDERABLES Final Result Performing Organization Address City/[facility]/ZIP Co de Phone Number [facility] ([facility]) [address] [place] [address], [place] [phone] * Sedimentation Rate (02/01/2025 8:22 AM EDT) Blood us David Bernstein MD LAB BLOOD ORDERABLES Final Result Performing Organization Address City/[facility]/ZIP Co de Phone Number [facility] [address] [place] [address], [place] [phone] * C-reactive Protein (02/01/2025 8:22 AM EDT) Blood us David Bernstein MD LAB BLOOD ORDERABLES Final Result [facility] (AMBULATORY) [address] [place] [address], [place] [phone] * Comprehensive Metabolic Panel (02/01/2025) Blood us David Bernstein MD LAB BLOOD ORDERABLES Final Result Performing Organization Address [facility]/[place] Co de Phone Number [facility] [address] [place] [address], [place] [phone] * (ABNORMAL) Lipid Panel (06/08/2022 10:16 AM EST) Total Cholesterol 101 0 - 200 mg/dL 06/08/2022 10:49 AM EST [facility] Triglycerides 113 0 - 150 mg/dL 06/08/2022 10:49 AM EST [facility] HDL Cholesterol 37(L) 40 - 60 mg/dL 06/08/2022 10:49 AM EST [facility] LDL Cholesterol 43 0 - 100 mg/dL 06/08/2022 10:49 AM EST [facility] VLDL Cholesterol 21 5 - 40 mg/dL 06/08/2022 10:49 AM EST [facility] LDL/HDL Ratio 1.12 06/08/2022 10:49 AM EST [facility] Blood Venipuncture / Unknown 06/08/2022 10:16 AM EST 06/08/2022 10:22 AM EST Narrative [facility] - 06/08/2022 10:49 AM EST Cholesterol [...] High 160-189 mg/dL Very High >189 mg/dL us Orville Kumar MD LAB BLOOD ORDERABLES Final Resul t [facility] LAB[facility]ORY
[address] [place] [address], from Last 3 Months or Most Recently Relevant to Health Maintenance Insurance MEDICARE A & B Member Subscriber Plan / Payer (Ef fective 2007-Present) Name:Giles Luz F Member ID:[id number] Relation to Subscriber:Self Name:Skaggs Luz Kit Subscriber ID:[id number] Payer ID:[id number] Group ID:Not on file Type:Not on file Address: [facility] [id number] Advance Directives Documents on File Type Date Recorded Patient Peer Educator Expl anation POWER OF SURGERY CENTER ADMINISTRATOR - SCAN 07/04/2021 11:17 AM DURABLE POWER OF SURGERY CENTER ADMINISTRATOR POWER OF SURGERY CENTER ADMINISTRATOR - SCAN 02/01/2018 10:59 AM POWER OF SURGERY CENTER ADMINISTRATOR 01/24/2011 * CPR (Attempt to Resuscitate) (Latest [...] Of Support Discussed With: Patient Care Teams Pharmacy Coordinator Relationship Specialty Start Date End Date Ferny Gentile MD [facility] [place] [address] [address] [facility] [place] [address] PCP - General 06/11/15
--- OUTSIDE RECORDS SUMMARY | 2025-04-20 14:56 | XMS_ITS | Encounter Summary ---
[facility] Address [address] [place] [address] Care Team Providers Care Corrections Specialist Name Role Phone Ferny Gentile MD Primary Care Provider [phone] Encounter Details Date Type Department Care Team (Late st Contact Info) Description 03/06/2025 Anticoagulation Visit [facility] ANTICO[facility]ULATION CLINIC [address] [facility] [address] [place] [address] Claudia Bauer, PharmD [address] [place] [address] Social History Tobacco Use Types [...] Bauer, PharmD - 03/06/2025 8:15 AM EST [facility] Anticoagulation Clinic Progress Note Patient Demographics Method of INR reporting: ACELIS HOME MONITOR Estimated OOP Cost: Indication: Paroxsymal Atrial Fibrillation (I48.0) Referring Provider Wojciech Flores MD Reason patient is not on a DOAC: Undetermined Goal INR: 2-3 Warfarin Start Date Fall 2014 Reason patient is not on home monitor: [id number]: CHF (1), HTN (1), Age >74 (2), [...] Naranjo Preferred contact number: Alternative contact number(s): [phone] ([employer]) Patient Appropriate for WarfNoCall ? [...] [facility] RHEUMATOLOGY [address] [place] [address] David Bernstein MD [address] [place] [address] 10/03/2025 2:45 PM EDT Office Visit [facility] CARDIOLOGY [address] [facility] [address] [place] [address] Yon Govea MD [address] [facility] [address] [place], [place] [address] 06/14/2026 1:30 PM EST Office Visit [facility] CARDIOLOGY [address] [place] [address] [address] Wojciech Flores MD [address] [facility] [address] [place], [place] [id number] documented as of this encounter Procedures Procedure Name Priority Date/Time Associated Diagnosis Comments PROTIME-INR Routine 03/06/2025 documented in this encounter Results * Protime-INR (03/06/2025) INR 1.20 Blood Historical Provider LAB BLOOD ORDERABLES Agata l Result documented in this encounter Visit Diagnoses Not on filedocumented in this encounter Care Teams Corrections Specialist Relationship Specialty Start Date End Date Ferny Gentile MD [address] [facility] [address] [place] [address] PCP - General 06/11/15 documented as of this encounter
--- OUTSIDE RECORDS SUMMARY | 2025-04-20 14:56 | XMS_ITS | Encounter Summary ---
[facility] Organization [facility] Address [address] [place] [address] Care Team Providers Care Mold Changer Name Role Phone Ferny Gentile MD Primary Care Provider [phone] Reason for Visit * Reason Onset Date Comments Med Refill 03/07/2025 Encounter Details Date Type Department Care Team (Late st Contact Info) Description 03/07/2025 Refill [facility]IC 1720 [facility] [address] [place] [address] Claudia Bauer, PharmD [address] [place] [address] Social History Tobacco Use Types Packs/Day Years [...] Visit [facility] [address] [address] David Bernstein MD [address] [address] 10/03/2025 2:45 PM EDT Office Visit [facility] C[facility] [address] [facility] [address] [place] [address] Yon Govea MD [address] [facility] [address] [place] [address] 06/14/2026 1:30 PM EST Office Visit [facility] C[facility] [address] [place] [address] [place] [address] Wojciech Flores MD [address] [facility] [address] [place], [place] [address] documented as of this encounter Visit Diagnoses Not on filedocumented in this encounter Care Teams Mold Changer Relationship Specialty Start Date End Date Ferny Gentile MD 12[address] [facility] [address] [place] [address] PCP - General 06/11/15 documented as of this encounter
--- OUTSIDE RECORDS SUMMARY | 2025-04-20 14:56 | XMS_ITS | Encounter Summary ---
Author Organization [employer] ([place], [place], [place], [place], [place]) Address [address] [place] [address] Care Team Providers Care Electronic Equipment Installer Name Role Phone SeferinoSakinat Primary Care Provider [phone] Encounter Details Date Type Department Care Team (Late st Contact Info) Description 12/14/2018 Transcribed Document [facility] Family Medicine [facility] [place] [address] ProviderArt MD [address] [place] [address] Social History Tobacco Use Types Packs/Day [...] on filedocumented in this encounter Care Teams Electronic Equipment Installer Relationship Specialty Start Date End Date Ferny Gentile [address] [place] [address] PCP - General 05/22/22 documented as of this encounter
--- OUTSIDE RECORDS SUMMARY | 2025-04-20 14:56 | XMS_ITS | Clinical Summary ---
Author Organization [employer] ([place], [place], [place], [place], [place]) Address [address] [place] [address] Care Team Providers Care Financial Services Professional Name Role Phone SeferinoSakinat Primary Care Provider [phone] Allergies Active Allergy Reactions Criticality Noted Date [...] oxide 400 mg magnesium Tab daily. Active gd-zia-oqjzcb- rlF22-grq-quw- 27 0.5-30-60-90 mg Cap daily. Active cholecalcifero [...] Date Alfredo rded Speak language other than Irish at home Not on file 05/22/2023 Want [...] 2025 01/29/2021 Medical Devices Implanted Type Area Core Laying Machine Operator Device Identifier Shelf Expiration Date Model / Serial / Lot Cement Bone [place] Hv 40/20 600-15-000 - [id number] Implanted:Qty : 2 on 05/26/2022 by Eliseo Cuevas MD at [facility] IMPLANTS Left: Knee DJ SURG:ENCORE MED:JESSIEOOGA 05/30/2023 600-15-00 0 / / [id number] Ty Tib I-Beam Fix Biomet 75mm [id number] - [id number] Implanted:Qty : 1 on 05/26/2022 by Eliseo Cuevas MD at [facility] TOTAL JOINT CONSTRUCT Left: Knee BIOMET 03/26/2032 [id number] / / [id number] Patella Std 8x31mm [id number] - [id number] Implanted:Qty : 1 on 05/26/2022 by Eliseo Cuevas MD at [facility] TOTAL JOINT CONSTRUCT Left: Knee BIOMET 03/12/2027 [id number] / / [id number] Comp Fem Ps Vangrd 65mm [id number] - [id number] Implanted:Qty : 1 on 05/26/2022 by Eliseo Cuevas MD at [facility] TOTAL JOINT CONSTRUCT Left: Knee BIOMET 10/13/2029 [id number] / / [id number] Insrt Tib Bear Ps 10x71/75 [id number] - [id number] Implanted:Qty : 1 on 05/26/2022 by Eliseo Cuevas MD at [facility] TOTAL JOINT CONSTRUCT Left: Knee BIOMET 11/07/2025 [id number] / / [id number] Insurance MEDICARE PART A B Advance Directives For more information, please contact: [phone] * Full Code (Latest Code Status on File) Date Activated Date Inactivated Comments 05/26/2022 3:06 PM 05/29/2022 8:04 PM * Full Code Date Activated Date Inactivated Comments 05/26/2022 8:57 AM 05/26/2022 3:06 PM Care Teams Financial Services Professional Relationship Specialty Start Date End Date SeferinoSakinat [address] [place] [address] PCP - General 05/22/22
--- OUTSIDE RECORDS SUMMARY | 2025-04-20 14:56 | XMS_ITS | Encounter Summary ---
Author Organization [employer] ([place], [place], [place], [place], [place]) Address [address] [place] [address] Care Team Providers Care Real Estate Underwriter Name Role Phone Ferny Gentile Primary Care Provider [phone] Encounter Details Date Type Department Care Team (Late st Contact Info) Description 12/15/2018 Transcribed Document [facility] [place] [facility] [place] [address] ProviderArt MD [address] [place] [address] Social History Tobacco Use Types Packs/Day [...] on filedocumented in this encounter Care Teams Real Estate Underwriter Relationship Specialty Start Date End Date Ferny Gentile [address] [place] [address] PCP - General 05/22/22 documented as of this encounter
--- OUTSIDE RECORDS SUMMARY | 2025-04-20 14:56 | XMS_ITS | Encounter Summary ---
Author Organization [employer] ([place], [place], [place], [place], [place]) Address [address] [place] [address] Care Team Providers Care Coordinator Of Rehabilitation Services Name Role Phone Ferny Gentile Primary Care Provider [phone] Encounter Details Date Type Department Care Team (Late st Contact Info) Description 12/14/2018 Transcribed Document [facility] [place] Medicine [facility] [place] [address] ProviderArt MD [address] [place] [address] Social History Tobacco Use Types Packs/Day [...] SKAGGS /Sex: 1940 Female Med Rec #: [id number] Physician: MATTHEW BANEGAS MD-ORTheo Financial #: [id number] Pt. Type: I Room/Bed: [facility]/ Admit/Disch: 12/14/18 04:48:00 - Institution: [facility] Case Attendance Entry 1 Entry 2 Entry 3 Case Attendee MATTHEW BANEGAS LUNSFORD, JAMES, LIME FILTER OPERATOR GARRETT JARAMILLO, RM MORALEZ-ORT Role Performed Surgeon/Proceduralist, LIME FILTER OPERATOR/Nurse Fraud Representative Physician technical staff assistant First Time In 12/14/18 08:10:00 12/14/18 [...] Carrero, ELENA BRAR CHAD, RAVEN Role Performed Clerical Support Specialist, First Scrub, Mail Machine Operator, First Time In 12/14/18 07:30:00 12/14/18 07:30:00 [...] ATTENDEE Ryanne Buchanan Hill, Philip A, Rn Church Business Administrator Role Performed Vendor Nitrating Acid Mixer Scrub, First Time In 12/14/18 08:10:00 12/14/18 [...] LEININGER, SUSAN, RN Role Performed Scrub, Second Clerical Support Specialist, Second Time In 12/14/18 08:15:00 12/14/18 09:20:00 Time Out 12/14/18 09:05:00 12/14/18 09:31:00 Procedure Hip Total Anterior Hip Total Anterior Approach Approach Other Attendee Superficial Wound Closed By: Last Modified By: Tiffany Carrero RN Wellnitz, Sara, RN 12/14/18 09:31:30 12/14/18 09:31:30 [facility] Case Attendance Audit 12/14/18 09:31:50 Organ Tuner Electronic: LUIS Modifier: LUIS 3 <+> Role Performed 3 <*> Procedure Hip Total Anterior Approach 12/14/18 09:31:30 Organ Tuner Electronic: LUIS Modifier: LUIS 1 <*> Procedure Hip [...] Procedure Hip Total Anterior Approach 12/14/18 09:21:19 Organ Tuner Electronic: LUIS Modifier: LUIS 4 <+> Time Out 4 <*> Procedure Hip Total Anterior Approach <+> 11 Case Attendee <+> 11 Role Performed <+> 11 Time In <+> 11 Procedure 12/14/18 09:19:23 Organ Tuner Electronic: LUIS Modifier: LUIS 8 <+> Time Out 8 <*> Procedure Hip Total Anterior Approach 12/14/18 09:10:59 Organ Tuner Electronic: WELLNISA Modifier: WELLNISA 5 <+> Time Out 5 <*> Procedure Hip Total Anterior Approach <+> 10 Case Attendee <+> 10 Role Performed <+> 10 Time In <+> 10 Time Out <+> 10 Procedure 12/14/18 09:04:01 Organ Tuner Electronic: REJIA Modifier: WELLNISA 1 <+> Time Out 1 <*> Procedure Hip Total Anterior Approach 7 <+> Time Out 7 <*> Procedure Hip Total Anterior Approach <+> 9 Case Attendee <+> 9 Role Performed <+> 9 Time In <+> 9 Procedure 12/14/18 08:38:47 Organ Tuner Electronic: REJIA Modifier: WELLNISA 6 <+> Time Out 6 <*> Procedure Hip Total Anterior Approach 12/14/18 08:37:27 Organ Tuner Electronic: REJIA Modifier: WELLNISA 3 <*> Time In 12/14/18 07:30:00 3 <*> Procedure Hip Total Anterior Approach 12/14/18 08:11:28 Organ Tuner Electronic: REJIA Modifier: WELLNISA 7 <*> Time In 12/14/18 07:30:00 7 <*> Procedure Hip Total Anterior Approach <+> 8 Case Attendee <+> 8 Role Performed <+> 8 Time In <+> 8 Procedure 12/14/18 08:10:47 Organ Tuner Electronic: REJIA Modifier: WELLNISA 1 <*> Time In 12/14/18 07:30:00 1 <*> Procedure Hip Total Anterior Approach 12/14/18 08:10:28 Organ Tuner Electronic: REJIA Modifier: WELLNISA 1 <+> Time In [...] [facility] Case Times Audit 12/14/18 09:31:27 Organ Tuner Electronic: LUIS Modifier: REJIA <+> 1 Out Room Time <+> 1 Stop Time 12/14/18 09:19:35 Organ Tuner Electronic: LUIS Modifier: WELLMARKOA <+> 1 Stop Time 12/14/18 08:10:57 Organ Tuner Electronic: LUIS Modifier: WELLMARKOA <+> 1 Start Time [...] 08:37:55 [facility] Cautery Audit 12/14/18 08:37:55 Organ Tuner Electronic: LUIS Modifier: LUIS 1 <*> Cautery Type [...] Skin Condition Unchanged After Cautery 12/14/18 08:10:52 Organ Tuner Electronic: LUIS Modifier: WELLMARKOA <+> 2 Cautery Type [...] 08:07:35 [facility] Communication Audit 12/14/18 08:13:51 Organ Tuner Electronic: LUIS Modifier: LUIS <+> 1 Date and [...] [facility] Counts Verification Audit 12/14/18 09:10:01 Organ Tuner Electronic: LUIS Modifier: LUIS 2 <*> Procedure Hip [...] [facility] Counts Final Audit 12/14/18 09:11:14 Organ Tuner Electronic: MEREMARKOJessi Modifier: MEREMARKOA 1 <*> Procedure Hip [...] Intra[facility] Drains and Tubes Audit 12/14/18 08:10:39 Organ Tuner Electronic: MEREMARKOJessi Modifier: LUIS 1 <*> Device Type [...] RN 12/14/18 08:12:06 [facility] General Case Booth Supervisor 1 Case Information OR OR [address] [facility] Case Level 1 Room Verified [...] SZ STEM HIP CLLR ORGN CX Identification [id number] Description Implant Quantity 1 1 1 Implant Site LEFT HIP LEFT HIP LEFT HIP Implant Identification Model Number Implant Identification Serial Number Implant [id number] Identification Lot Number Implant Paxeon Reconstruction Paxeon Reconstruction Paxeon Reconstruction Identification Security Operations Specialist Name: Implant [id number] Identification Catalog Number Implant Size Implant Has an Yes Yes Yes Expiration Date Implant Expiration 08/02/23 10/02/23 09/01/23 Date Wasted Radioactive Material Time Implanted Tissue Implant Continue for Tissue Implant Documentation Tissue Identification Number Graft Prep Per Security Operations Specialist Instructions: Tissue Preparation Method: Reconstitution Solution: Reconstitution Solution Lot Number Reconstitution Solution Expiration Date: Thawing Solution Thawing Solution Lot Number Thawing Solution Expiration Date Preparation Materials, Other Preparation Materials, Other Lot Number Preparation Materials, Other Expiration Date Tissue Prepared/Processed By Security Operations Specialist Paperwork Completed Implant Type Comment Last Modified By: Tiffany Carrero, Tiffany Garcia RN Wellnitz, Sara, RN 12/14/18 08:31:02 12/14/18 08:36:29 12/14/18 09:06:08 Entry 4 Type Implant (Synthetic) Implant Log Implant Type Hardware Tissue Implant Type Implant HEAD FEM CERC SZ 36MM Identification [id number] Description Implant Quantity 1 Implant Site LEFT HIP Implant Identification Model Number Implant Identification Serial Number Implant [id number] Identification Lot Number Implant Paxeon Reconstruction Identification Security Operations Specialist Name: Implant [id number] Identification Catalog Number Implant Size Implant Has an Yes Expiration Date Implant Expiration 06/03/23 Date Wasted Radioactive Material Time Implanted Tissue Implant Continue for Tissue Implant Documentation Tissue Identification Number Graft Prep Per Security Operations Specialist Instructions: Tissue Preparation Method: Reconstitution Solution: Reconstitution Solution Lot Number Reconstitution Solution Expiration Date: Thawing Solution Thawing Solution Lot Number Thawing Solution Expiration Date Preparation Materials, Other Preparation Materials, Other Lot Number Preparation Materials, Other Expiration Date Tissue Prepared/Processed By Security Operations Specialist Paperwork Completed Implant Type Comment Last Modified By: Tiffany Carrero RN 12/14/18 09:06:08 [facility] Implant Log Audit 12/14/18 09:06:08 Organ Tuner Electronic: LUIS Modifier: WELLNISA <+> 3 Implant Identification Description <+> 3 Implant Identification Lot Number <+> 3 Implant Identification Security Operations Specialist Name: <+> 3 Implant Expiration Date <+> 3 Implant Identification Catalog Number <+> 4 Implant Identification Description <+> 4 Implant Identification Lot Number <+> 4 Implant Identification Security Operations Specialist Name: <+> 4 Implant Expiration Date <+> 4 Implant Identification Catalog Number 12/14/18 08:36:29 Organ Tuner Electronic: WELLNISA Modifier: WELLNISA <+> 2 Implant Identification Description <+> 2 Implant Identification Lot Number <+> 2 Implant Identification Security Operations Specialist Name: <+> 2 Implant Expiration Date <+> 2 Implant Identification Catalog Number 12/14/18 08:31:02 Organ Tuner Electronic: WELLNISA Modifier: WELLNISA <+> 1 Implant Identification Description <+> 1 Implant Identification Lot Number <+> 1 Implant Identification Security Operations Specialist Name: <+> 1 Implant Expiration Date <+> 1 Implant Identification Catalog Number 12/14/18 08:20:19 Organ Tuner Electronic: WELLNISA Modifier: WELLNISA <+> 4 Implant Has [...] vancomycin 1Gm vial - ANESTHETIC 1000MG/10 ML [id number] COCKTAIL-BANEGAS [id number] Combo Med List Time Administered Route of [...] [facility] Time Out Audit 12/14/18 08:17:05 Organ Tuner Electronic: LUIS Modifier: LUIS 1 <*> Time Out Pause Time 12/14/18 08:08:00 1 <*> Procedure to be Performed Hip Total Anterior Approach [facility] X-Ray and Images Entry 1 X-Ray/Imaging Type Fluoroscopy Fluoroscopy Type C-Arm Site LEFT HIP Counter Weigher Name Ryanne Buchanan, Church Business Administrator Protective Devices Yes Used Last Modified By: [...] on filedocumented in this encounter Care Teams Coordinator Of Rehabilitation Services Relationship Specialty Start Date End Date Ferny Gentile [address] [place] [address] PCP - General 05/22/22 documented as of this encounter
--- OUTSIDE RECORDS SUMMARY | 2025-04-20 14:56 | XMS_ITS | Clinical Summary ---
Author Organization Healthcare Address [address] [place] [address] Care Team Providers Care Pollution Control Engineer Name Role Phone Ferny Gentile MD Primary Care Provider [phone] Family History Medical History Relation Name Comments [...] of Treatment Not on file Care Teams Pollution Control Engineer Relationship Specialty Start Date End Date Ferny Gentile MD [address] [facility] [address] [place]AR[place] Ortiz [id number] PCP - General 09/14/20
--- OUTSIDE RECORDS SUMMARY | 2025-04-20 14:56 | XMS_ITS | Encounter Summary ---
Author Organization [employer] ([place], [place], [place], [place], [place]) Address [address] [place] [address] Care Team Providers Care Ammunition And Explosives Handler Name Role Phone Ferny Gentile Primary Care Provider [phone] Encounter Details Date Type Department Care Team (Late st Contact Info) Description 12/14/2018 Transcribed Document [facility] [place] [facility] [place] [address] ProviderArt MD [address] [place] [address] Social History Tobacco Use Types Packs/Day [...] Date/Time: 12/14/18 10:16:12 Pt. Name: UZAIR MADERA iKt Pereira/Sex: 1940 Female Med Rec #: [id number] Physician: MATTHEW BANEGAS MD-ORTheo Financial #: [id number] Pt. Type: I Room/Bed: [facility]/ Admit/Disch: 12/14/18 04:48:00 - Institution: [facility] [place] PACU Case Times Entry 1 In PACU I 12/14/18 09:35:00 Ready for PACU 12/14/18 10:10:00 Discharge Discharge from PACU 12/14/18 10:10:00 I Last Modified By: Michael Ferrer, Omar 12/14/18 10:15:34 [facility] [place] PACU Acuity Entry 1 Start [...] on filedocumented in this encounter Care Teams Ammunition And Explosives Handler Relationship Specialty Start Date End Date Ferny Gentile [address] [place] [address] PCP - General 05/22/22 documented as of this encounter
--- OUTSIDE RECORDS SUMMARY | 2025-04-20 14:56 | XMS_ITS | Encounter Summary ---
Author Organization [employer] Address [address] [place] [address] Care Team Providers Care Office Cashier Name Role Phone Ferny Gentile MD Primary Care Provider [phone] Encounter Details Date Type Department Care Team (Latest Contact Info) Description 12/10/2020 Anticoagulation Visit [facility] [address] [place] [address] [address] [place] [address] Leticia Vivar, Commercial Manager Paroxysmal 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 (Primary Dx) Social [...] Office Visit [facility] RHEUMATOLOGY [address] [address] David Bernstein MD [address] [facility] [address] [place] [address] 10/03/2025 2:45 PM EDT Office Visit [facility] CARDIOLOGY [address] [facility] [address] [place] [address] Yon Govea MD [address] [place] [address] 06/14/2026 1:30 PM EST Office Visit [facility] CARDIOLOGY [address] [place] [address] Wojciech Flores MD [address] [place], [place] [id number] documented as of this encounter Procedures Procedure [...] documented as of this encounter Care Teams Office Cashier Relationship Specialty Start Date End Date Ferny Gentile MD [address] [facility] [address] [place] [address] PCP - General 06/11/15 documented as of this encounter
--- OUTSIDE RECORDS SUMMARY | 2025-04-20 14:56 | XMS_ITS | Encounter Summary ---
Author Organization [employer] ([place], [place], [place], [place], [place]) Address [address] [place] [address] Care Team Providers Care Development Associate Name Role Phone Ferny Gentile Primary Care Provider [phone] Encounter Details Date Type Department Care Team (Late st Contact Info) Description 12/14/2018 Transcribed Document [facility] [place] [facility] [place] [address] ProviderArt MD [address] [place] [address] Social History Tobacco Use Types Packs/Day [...] LOKI BLANTON OTR/Buck - 12/15/2018 10:58 EDT Digital Librarian Goals, OT Other LTG Grid Goal #1 [...] on filedocumented in this encounter Care Teams Development Associate Relationship Specialty Start Date End Date Ferny Gentile [address] [place] [address] PCP - General 05/22/22 documented as of this encounter
--- OUTSIDE RECORDS SUMMARY | 2025-04-20 14:56 | XMS_ITS | Encounter Summary ---
Author Organization [facility] Address [address] [place] [address] Care Team Providers Care Creative Engagement Director Name Role Phone Ferny Gentile MD Primary Care Provider [phone] Encounter Details Date Type Department Care Team (Late st Contact Info) Description 02/08/2025 Anticoagulation Visit [facility] [address] [facility] [address] [place] [address] Claudia Bauer, PharmD [address] [place] [address] Social History Tobacco Use Types [...] Tablet Strength: 5mg tablets Patient Contact Info: [phone]; Litzy Naranjo (daughter) Patient Findings Negatives: Signs/symptoms [...] EST Office Visit [facility] RHEUMATOLOGY [address] [facility] [address] [place] [address] David Bernstein MD [address] [facility] [address] [place] [address] 10/03/2025 2:45 PM EDT Office Visit [facility] CARDIOLOGY [address] [facility] [address] [place] [address] Yon Govea MD [address] [facility] [address] [place], [place] [id number] 06/14/2026 1:30 PM EST Office Visit [facility] CARDIOLOGY [address] [place] [address] Wojciech Flores MD [address] [facility] [address] [place], [place] [id number] documented as of this encounter Procedures Procedure Name Priority Date/Time Associated Diagnosis Comments PROTIME-INR Routine 02/08/2025 documented in this encounter Results * Protime-INR (02/08/2025) INR 1.90 Blood us Historical Provider LAB BLOOD ORDERABLES Agata l Result documented in this encounter Visit Diagnoses Not on filedocumented in this encounter Care Teams Creative Engagement Director Relationship Specialty Start Date End Date Ferny Gentile MD [address] [facility] [address] [place] [address] PCP - General 06/11/15 documented as of this encounter
--- OUTSIDE RECORDS SUMMARY | 2025-04-20 14:56 | XMS_ITS | Encounter Summary ---
Author Organization [employer] ([place], [place], [place], [place], [place]) Address [address] [place] [address] Care Team Providers Care Whitewasher Name Role Phone Ferny Gentile Primary Care Provider [phone] Encounter Details Date Type Department Care Team (Late st Contact Info) Description 12/15/2018 Transcribed Document [facility] [place] Family Medicine [facility] [place] [address] ProviderArt MD [address] [place] [address] Social History Tobacco Use Types Packs/Day [...] Art ProviderMD - 12/15/2018 11:22 [place] [address] UZAIR MADERA :1940 Visit Time:12/14/2018 Your Visit Summary Your Care Team Admitting Physician - MARIELLA DOBBS MD CHRISTENSEN, CHRISTIAN, MD-HEAVENT Attending Physician - MATTHEW BANEGAS MD-ORT Primary Care Physician - FERNY GENTILE (REF)MD-INT Referring Physician - BANEGAS, ISLAM, MD-ORT Your Diagnosis Hip pain, chronic Discharge Vitals Temperature 37.1 ??C Heart Rate 68 Respiratory Rate 18 Blood Pressure 98/50 What to do next Instructions From Your Care Team PATIENT HAS A WALKER, PT WILL HAVE HOME THERAPY WITH [facility] [phone], PATIENT CHECKS HER OWN INR WITH HOME MACHINE, 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 Do NOT skip [...] Barley. Bulgur wheat. Millet. Bran muffins. Popcorn. Goltry wafer crackers. Vegetables Sweet potatoes. Spinach. Kale. Artichokes. Cabbage. Broccoli. Green peas. Carrots. Squash. Fruits Berries. Pears. Apples. Oranges. Avocados. Prunes and raisins. Dried figs. Meats and Other Protein Sources [place]ong[place]ovi, kidney, shrestha, and soy beans. Split peas. [...] zuri has 11 g of protein. ??? [place] seeds ??? 1 oz has 5.5 g [...] floor. ??? Place frequently used items in nkla-iw-qlaxv places ??? Keep electrical cables out of [...] ??? Using the bathroom. ??? Using household product safety associate or toxic chemicals. ??? Touching or taking [...] are a day sleeper or work a night time nanny. Some people have thoughts about suicide while [...] may report side effects to FDA at 0-823-QWH-9483. What other drugs will affect gabapentin? Taking gabapentin with other drugs that make you sleepy can worsen this effect. Ask your doctor before taking a sleeping pill, narcotic medication, muscle relaxer, or medicine for anxiety, depression, or seizures. Other drugs may interact with gabapentin, including prescription and xhfc-ccd-lihaaem medicines, vitamins, and herbal products. Tell your [...] to ensure that the information provided by [employer]. ('[employer]') is accurate, up-to-date, and complete, but no guarantee is made to that effect. Drug information contained herein may be time sensitive. [employer] information has been compiled for use by healthcare practitioners and consumers in the [place] and therefore [employer] does not warrant that uses outside of the [place] are appropriate, unless specifically indicated otherwise. [employer] drug information does not endorse drugs, diagnose patients or recommend therapy. [employer] drug information is an informational resource designed [...] effective or appropriate for any given patient. [employer] does not assume any responsibility for any aspect of healthcare administered with the aid of information [employer] provides. The information contained herein is not intended to cover all possible uses, directions, precautions, warnings, drug interactions, allergic reactions, or adverse effects. If you have questions about the drugs you are taking, check with your doctor, nurse or pharmacist. Copyright 7655-7540 [employer]. Version: 14.. Revision Date: 02/10/2017. hydromorphone (oral) [...] extended-release form of this medicine is for fmlwpy-nio-qxope treatment of moderate to severe pain, not [...] against the law. Stop taking all other aftjwj-jpb-wcnmp narcotic pain medications when you start taking [...] may report side effects to FDA at 5-505-RBJ-7915. What other drugs will affect hydromorphone? Opioid [...] drugs may affect hydromorphone, including prescription and bnxc-uun-iuoygkf medicines, vitamins, and herbal products. Not all [...] to ensure that the information provided by [employer]. ('[employer]') is accurate, up-to-date, and complete, but no guarantee is made to that effect. Drug information contained herein may be time sensitive. [employer] information has been compiled for use by healthcare practitioners and consumers in the [place] and therefore [employer] does not warrant that uses outside of the [place] are appropriate, unless specifically indicated otherwise. [employer] drug information does not endorse drugs, diagnose patients or recommend therapy. [employer] drug information is an informational resource designed [...] effective or appropriate for any given patient. [employer] does not assume any responsibility for any aspect of healthcare administered with the aid of information [employer] provides. The information contained herein is not intended to cover all possible uses, directions, precautions, warnings, drug interactions, allergic reactions, or adverse effects. If you have questions about the drugs you are taking, check with your doctor, nurse or pharmacist. Copyright 0290-8547 [employer]. Version: 9.02. Revision Date: 03/31/2018. acetaminophen and hydrocodone (a SEET a MIN oh fen and noah droe KOE done) Hycet, Lorcet, [place], Verdrocet, Vicodin, Xodol, Zamicet What is the [...] may report side effects to FDA at 0-884-QME-0877. What other drugs will affect acetaminophen and [...] affect acetaminophen and hydrocodone, including prescription and axcl-exm-axgbbpv medicines, vitamins, and herbal products. Not all [...] to ensure that the information provided by [employer]. ('[employer]') is accurate, up-to-date, and complete, but no guarantee is made to that effect. Drug information contained herein may be time sensitive. [employer] information has been compiled for use by healthcare practitioners and consumers in the [place] and therefore [employer] does not warrant that uses outside of the [place] are appropriate, unless specifically indicated otherwise. [employer] drug information does not endorse drugs, diagnose patients or recommend therapy. [employer] drug information is an informational resource designed [...] effective or appropriate for any given patient. [employer] does not assume any responsibility for any aspect of healthcare administered with the aid of information [employer] provides. The information contained herein is not intended to cover all possible uses, directions, precautions, warnings, drug interactions, allergic reactions, or adverse effects. If you have questions about the drugs you are taking, check with your doctor, nurse or pharmacist. Copyright 5315-2621 [employer]. Version: 15.02. Revision Date: 03/08/2018. tramadol (TRAM [...] extended-release form of this medicine is for ngqhfx-zrw-pdvjb treatment of pain. This form of tramadol [...] against the law. Stop taking all other degyce-iqt-dxpgh narcotic pain medications when you start taking [...] may report side effects to FDA at 4-871-OKN-6984. What other drugs will affect tramadol? You [...] may affect tramadol. This includes prescription and mvbu-gym-trgyvam medicines, vitamins, and herbal products. Not all [...] to ensure that the information provided by [employer]. ('[employer]') is accurate, up-to-date, and complete, but no guarantee is made to that effect. Drug information contained herein may be time sensitive. [employer] information has been compiled for use by healthcare practitioners and consumers in the [place] and therefore [employer] does not warrant that uses outside of the [place] are appropriate, unless specifically indicated otherwise. [employer]'s drug information does not endorse drugs, diagnose patients or recommend therapy. [employer] drug information is an informational resource designed [...] effective or appropriate for any given patient. [employer] does not assume any responsibility for any aspect of healthcare administered with the aid of information [employer] provides. The information contained herein is not intended to cover all possible uses, directions, precautions, warnings, drug interactions, allergic reactions, or adverse effects. If you have questions about the drugs you are taking, check with your doctor, nurse or pharmacist. Copyright 7415-0899 [employer]. Version: 20.01. Revision Date: 08/12/2018. Emergency Awareness [...] Assistance with quitting is available by contacting 9-713-HMNCNewAuto Video TechnologyNOW. This is a free resource providing counseling, [...] on filedocumented in this encounter Care Teams Whitewasher Relationship Specialty Start Date End Date Ferny Gentile [address] [place] [address] PCP - General 05/22/22 documented as of this encounter
--- OUTSIDE RECORDS SUMMARY | 2025-04-20 14:56 | XMS_ITS | Encounter Summary ---
Author Organization [employer] ([place], [place], [place], [place], [place]) Address [address] [place] [address] Care Team Providers Care Principal Clerk Typist Name Role Phone Ferny Gentile Primary Care Provider [phone] Encounter Details Date Type Department Care Team (Late st Contact Info) Description 12/14/2018 Transcribed Document [facility] [place] [facility] [place] [address] ProviderArt MD [address] [place] [address] Social History Tobacco Use Types Packs/Day [...] filedocumented in this encounter Care Teams Principal Clerk Typist Relationship Specialty Start Date End Date Ferny Gentile [address] [place] [address] PCP - General 05/22/22 documented as of this encounter
--- OUTSIDE RECORDS SUMMARY | 2025-04-20 14:56 | XMS_ITS | Encounter Summary ---
[facility] Organization [facility] Address [address] [place] [address] Care Team Providers Care Grinding And Polishing Laborer Name Role Phone Ferny Gentile MD Primary Care Provider [phone] Encounter Details Date Type Department Care Team (Late st Contact Info) Description 02/10/2025 Telephone [facility] [address] [place] [address] Dayron Diallo, Associate Director Career Services Social History Tobacco Use Types Packs/Day Years [...] on 03/02/[address] Cody Quiroz at [facility]. Dr. Quiroz deferred perioperative warfarin plan to the patient's casting trucker. Luz Skaggs is on warfarin for paroxysmal [...] procedure. Josefina Geiger RPH 02/10/2025 13:50 EDT [facility] phone fax * Telephone Encounter - Dayron Diallo, Associate Director Career Services - 02/10/2025 9:30 AM EDT Per Nasreen at Dr. Quiroz office the warfarin hold prior to colonoscopy on 03/02 is determined by the patient's casting trucker. Dayron Diallo [facility] 02/10/2025 09:31 EDT documented in this encounter Plan of Treatment Upcoming Encounters Date Type Department Care Team (Late st Contact Info) Description 06/30/2025 11:30 AM EST Office Visit [facility] RHEUMATOLOGY [address] [address] David Bernstein MD [address] [place] [place] [address] [place] [address] 10/03/2025 2:45 PM EDT Office Visit [facility] CARDIOLOGY [address] [facility] [address] [place] [address] Yon Govea MD [address] [facility] [address] [place] [address] 06/14/2026 1:30 PM EST Office Visit [facility] CARDIOLOGY [address] [place] [address] [place] [address] Wojciech Flores MD [address] [facility] [address] [place] [address] documented as of this encounter Visit Diagnoses Not on filedocumented in this encounter Care Teams Grinding And Polishing Laborer Relationship Specialty Start Date End Date Ferny Gentile MD [address] [facility] [address] [place] [address] PCP - General 06/11/15 documented as of this encounter
--- OUTSIDE RECORDS SUMMARY | 2025-04-20 14:56 | XMS_ITS | Encounter Summary ---
Author Organization [employer] ([place], [place], [place], [place], [place]) Address [address] [place] [address] Care Team Providers Care Guidance Adviser Name Role Phone SeferinoSakinat Primary Care Provider Encounter Details Date Type Department Care Team (Late st Contact Info) Description 12/14/2018 Transcribed Document [facility] [place] [facility] Family Medicine [facility] [place] [address] ProviderArt MD [address] [place] [address] Social History Tobacco Use Types Packs/Day [...] 12/15/2018 1:35 EDT Electronically signed by Marilou [facility] Conversion Pillowcase Cutter Cerner at 08/18/2022 11:25 AM CDT documented in this encounter Plan of Treatment Not on file documented as of this encounter Visit Diagnoses Not on filedocumented in this encounter Care Teams Guidance Adviser Relationship Specialty Start Date End Date Ferny Gentile [address] [place] [address] PCP - General 05/22/22 documented as of this encounter
--- OUTSIDE RECORDS SUMMARY | 2025-04-20 14:56 | XMS_ITS | Encounter Summary ---
[facility] Organization [facility] Address [address] [place] [address] Care Team Providers Care Frame Straightener Name Role Phone Ferny Gentile MD Primary Care Provider [phone] Encounter Details Date Type Department Care Team (Latest Contact Info) Description 06/22/2019 Anticoagulation Visit [facility] [address] [place] [address] [address] [place] [phone] Leticia Vivar, Wet Cleaner Machine Paroxysmal 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 Social History Tobacco Use [...] [facility] 330 [facility] 100 [place] [address] David Bernstein MD 330 [facility] 100 [place], [place] [id number] 10/03/2025 2:45 PM EDT Office Visit [facility] [address] [facility] [address] [place] [address] Yon Govea MD [address] [place], [place] [address] 06/14/2026 1:30 PM EST Office Visit [facility] CARDIOLOGY [address] [place] [address] [address] Wojciech Flores MD [address] [facility] [address] [address] [place], [place] [id number] documented as of this encounter Procedures Procedure [...] documented as of this encounter Care Teams Frame Straightener Relationship Specialty Start Date End Date Ferny Gentile MD [address] [facility] [address] [place] [address] PCP - General 06/11/15 documented as of this encounter
--- OUTSIDE RECORDS SUMMARY | 2025-04-20 14:56 | XMS_ITS | Encounter Summary ---
Author Organization [employer] ([place], [place], [place], [place], [place]) Address [address] [place] [address] Care Team Providers Care Laborer Cheesemaking Name Role Phone SeferinoSakinat Primary Care Provider [phone] Encounter Details Date Type Department Care Team (Late st Contact Info) Description 12/15/2018 Transcribed Document [facility] Family Medicine [address] [place] [address] ProviderArt MD [address] [place] [address] Social History Tobacco Use Types Packs/Day [...] 12/15/2018 14:44 EDT Electronically signed by Marilou [facility] Conversion Button Cutter Cerner at 08/18/2022 11:11 AM CDT documented in this encounter Plan of Treatment Not on file documented as of this encounter Visit Diagnoses Not on filedocumented in this encounter Care Teams Laborer Cheesemaking Relationship Specialty Start Date End Date Seferino Ferny [address] [place] [phone] PCP - General 05/22/22 documented as of this encounter
--- OUTSIDE RECORDS SUMMARY | 2025-04-20 14:56 | XMS_ITS | Referral Summary ---
Author Organization [employer] ([place], [place], [place], [place], [place]) Address [address] [place] [address] Care Team Providers Care Welder Fabricator Name Role Phone SeferinoSakinat Primary Care Provider [phone] Allergies Active Allergy Reactions Criticality Noted Date [...] oxide 400 mg magnesium Tab daily. Active ay-eav-ynvoqk- zsC42-oed-dwy- 27 0.5-30-60-90 mg Cap daily. Active cholecalcifero [...] Date Alfredo rded Speak language other than [place]ander at home Not on file 05/22/2023 Want [...] on file Medical Devices Implanted Type Area Basting Machine Operator Device Identifier Shelf Expiration Date Model / Serial / Lot Cement Bone Shirley Hv 40/20 600-15-000 - [id number] Implanted:Qty : 2 on 05/26/2022 by Eliseo Cuevas MD at [facility] IMPLANTS Left: Knee DJ SURG:ENCORE MED:BRIANTANOOGA 05/30/2023 600-15-00 0 / / [id number] Ty Tib I-Beam Fix Biomet 75mm [id number] - [id number] Implanted:Qty : 1 on 05/26/2022 by Eliseo Cuevas MD at [facility] TOTAL JOINT CONSTRUCT Left: Knee BIOMET 03/26/2032 [id number] / / [id number] Patella Std 8x31mm [id number] - [id number] Implanted:Qty : 1 on 05/26/2022 by Eliseo Cuevas MD at [facility] TOTAL [employer]INT [employer] Left: Knee BIOMET 03/12/2027 [id number] / / [id number] Comp Fem Ps Vangrd 65mm [id number] - [id number] Implanted:Qty : 1 on 05/26/2022 by Eliseo Cuevas MD at [facility] [employer] Left: Knee BIOMET 10/13/2029 [id number] / / [id number] Insrt Tib Bear Ps 10x71/75 [id number] - [id number] Implanted:Qty : 1 on 05/26/2022 by Eliseo Cuevas MD at [facility] TOTAL JOINT [employer]STRUCT Left: Knee BIOMET 11/07/2025 [id number] / / [id number] Insurance [place]IC[place] [address] [place] [address] Advance Directives For more information, please contact: [phone] * Full Code (Latest Code Status on File) Date Activated Date Inactivated Comments 05/26/2022 3:06 PM 05/29/2022 8:04 PM * Full Code Date Activated Date Inactivated Comments 05/26/2022 8:57 AM 05/26/2022 3:06 PM Care Teams Welder Fabricator Relationship Specialty Start Date End Date Ferny Gentile [address] [place] [address] PCP - General 05/22/22
--- OUTSIDE RECORDS SUMMARY | 2025-04-20 14:56 | XMS_ITS | Encounter Summary ---
Author Organization [facility] Address [address] [place] [address] Care Team Providers Care Textile Pin Worker Name Role Phone Ferny Gentile MD Primary Care Provider [phone] Reason for Visit * Reason Onset Date Comments Med Refill 03/07/2025 [facility]AGER-MED REFILL 03/07/2025 Encounter Details Date Type Department Care Team (Late st Contact Info) Description 03/07/2025 Refill [facility] CARDIOLOGY [address] [facility] 400 [place] [address] Wojciech Flores MD [address] [facility] [address] [facility] [address] [place] [address] Med Refill; CRAGER-MED REFILL Social History Tobacco [...] Skaggs Relationship: Self Best call back number: [phone] Requested Prescriptions: Requested Prescriptions Pending Prescriptions Disp Refills warfarin (COUMADIN) 5 MG tablet 135 tablet 0 Sig: TAKE 1 TO 1 & 1/2 (ONE TO ONE & ONE-HALF) TABLETS BY MOUTH ONCE DAILY OR DIRECTED BY THE ANTICOAGULATION CLINIC Pharmacy where request should be sent: [facility] - [place] - [address] [phone] [facility] [phone] FX Last office visit with prescribing clinician: [...] Description 06/30/2025 11:30 AM EST Office Visit [facility] RHEUMATOLOGY [address] [place] [address] David Bernstein MD [address] [place] [address] 10/03/2025 2:45 PM EDT Office Visit [facility] CARDIOLOGY [address] [facility] [address] [place] [address] Yon Govea MD [address] [facility] [address] [place], [place] [id number] 06/14/2026 1:30 PM EST Office Visit [facility] CARDIOLOGY [address] [place] [address] [place] [address] Wojciech Flores MD 17[address] [facility] [address] [place], [place] [id number] documented as of this encounter Visit Diagnoses Not on filedocumented in this encounter Care Teams Textile Pin Worker Relationship Specialty Start Date End Date Ferny Gentile MD [address] [facility] [address] [place] [address] PCP - General 06/11/15 documented as of this encounter
--- OUTSIDE RECORDS SUMMARY | 2025-04-20 14:56 | XMS_ITS | Encounter Summary ---
Author Organization [employer] ([place], [place], [place], [place], [place]) Address [address] [place] [address] Care Team Providers Care Box Office Clerk Name Role Phone Ferny Gentile Primary Care Provider [phone] Encounter Details Date Type Department Care Team (Late st Contact Info) Description 12/02/2018 Transcribed Document [facility] [place] Family Medicine [facility] [place] [address] ProviderArt MD [address] [place] [address] Social History Tobacco Use Types Packs/Day [...] ipratropium 21 mcg/inh (0.03%) nasal spray 2 [place], Nasal, BID kynsol magnesium oxide 400 mg [...] Lymph # 1.40 K/uL 12/02/2018 12:03 EDT [place] % 17.1 % (High) 12/02/2018 12:03 EDT [place] # 1.07 K/uL (High) 12/02/2018 12:03 EDT [...] Appearance CLEAR2 12/02/2018 12:03 EDT Urine Specific [place] 1.013 12/02/2018 12:03 EDT Urine pH Dipstick [...] nitrites, neg LE Electronically signed by Interface, [facility] Conversion Magazine Keeper Cerner at 08/18/2022 11:07 AM CDT documented in this encounter Plan of Treatment Not on file documented as of this encounter Visit Diagnoses Not on filedocumented in this encounter Care Teams Box Office Clerk Relationship Specialty Start Date End Date Seferino Ferny [address] [place] [address] PCP - General 05/22/22 documented as of this encounter
--- OUTSIDE RECORDS SUMMARY | 2025-04-20 14:56 | XMS_ITS | Encounter Summary ---
Author Organization [employer] ([place], [place], [place], [place], [place]) Address [address] [place] [address] Care Team Providers Care Gardening Supervisor Name Role Phone Ferny Gentile Primary Care Provider [phone] Encounter Details Date Type Department Care Team (Late st Contact Info) Description 12/14/2018 Transcribed Document [facility] [facility] [place] [address] ProviderArt MD [address] [place] [address] Social History Tobacco Use Types Packs/Day [...] MADERA /Sex: 1940 Female Med Rec #: [id number] Physician: MATTHEW BANEGAS MD-TITO Financial #: [id number] Pt. Type: I Room/Bed: [facility]/ Admit/Disch: 12/14/18 04:48:00 - Institution: [facility] PreOp Case Times Entry 1 In Preop 12/14/18 05:30:00 Ready for Holding n/a Room Patient Ready for 12/14/18 06:49:00 Surgery Patient Out of Preop 12/14/18 07:27:00 Patient Out of n/a Holding Room Last Modified By: SYDNI MCGREGOR 12/14/18 09:40:09 [facility] PreOp Case Times Audit 12/14/18 09:40:09 Sponge Press Operator: [email or web address] Modifier: [email or web address] <+> 1 Patient Out of Preop 12/14/18 06:49:39 Sponge Press Operator: ETIENNE Modifier: [email or web address] <+> 1 Patient Ready for Surgery Finalized By: SYDNI MCGREGOR Document Signatures Signed By: SYDNI MCGREGOR 12/14/18 09:40 documented in this encounter Plan of Treatment Not on file documented as of this encounter Visit Diagnoses Not on filedocumented in this encounter Care Teams Gardening Supervisor Relationship Specialty Start Date End Date Ferny Gentile [address] [place] [address] PCP - General 05/22/22 documented as of this encounter
--- OUTSIDE RECORDS SUMMARY | 2025-04-20 14:56 | XMS_ITS | Encounter Summary ---
Author Organization [employer] ([place], [place], [place], [place], [place]) Address [address] [place] [address] Care Team Providers Care Fire Prevention Specialist Name Role Phone Ferny Gentile Primary Care Provider [phone] Encounter Details Date Type Department Care Team (Late st Contact Info) Description 12/14/2018 Transcribed Document [facility] [place] Family Medicine [facility] [place] [address] ProviderArt MD [address] [place] [address] Social History Tobacco Use Types Packs/Day [...] EDT Electronically signed by Brina Zamarripa Conversion Special Agent Secret Service Cerner at 08/18/2022 11:25 AM CDT documented in this encounter Plan of Treatment Not on file documented as of this encounter Visit Diagnoses Not on filedocumented in this encounter Care Teams Fire Prevention Specialist Relationship Specialty Start Date End Date Ferny Gentile [address] [place] [address] PCP - General 05/22/22 documented as of this encounter
--- OUTSIDE RECORDS SUMMARY | 2025-04-20 14:56 | XMS_ITS | Encounter Summary ---
Author Organization [facility] Address [address] [place] [address] Care Team Providers Care Identification Printing Machine Setter Name Role Phone Ferny Gentile MD Primary Care Provider [phone] Encounter Details Date Type Department Care Team (Late st Contact Info) Description 03/10/2025 Anticoagulation Visit [facility] [address] [facility] [address] [place] [address] Claudia Bauer, PharmD [address] [place] [address] Social History Tobacco Use Types [...] Bauer, PharmD - 03/10/2025 9:59 AM EST [facility] Anticoagulation Clinic Progress Note Patient Demographics Method of INR reporting: ACELIS HOME MONITOR Estimated OOP Cost: Indication: Paroxsymal Atrial Fibrillation (I48.0) Referring Provider Wojciech Flores MD Reason patient is not on a DOAC: Undetermined Goal INR: 2-3 Warfarin Start Date Fall 2014 Reason patient is not on home monitor: [id number]: CHF (1), HTN (1), Age >74 (2), [...] Naranjo Preferred contact number: Alternative contact number(s): [phone] ([employer]) Patient Appropriate for WarfNoCall ? [...] Visit [facility] RHE[facility] [address] [place] [address] David Bernstein MD [address] [place], [place] [id number] 10/03/2025 2:45 PM EDT Office Visit [facility] C[facility]Y 3000 [facility] [address] [place] [address] Yon Govea MD 1720 [facility] [address] [place], [place] [address] 06/14/2026 1:30 PM EST Office Visit [facility] CARDI[facility]Y [address] [place] [address] [place] [address] Wojciech Flores MD 1720 [facility] [address] [place] [address] documented as of this encounter Procedures Procedure Name Priority Date/Time Associated Diagnosis Comments PROTIME-INR Routine 03/10/2025 documented in this encounter Results * Protime-INR (03/10/2025) INR 1.50 Blood us Historical Provider LAB BLOOD ORDERABLES Agata l Result documented in this encounter Visit Diagnoses Not on filedocumented in this encounter Care Teams Identification Printing Machine Setter Relationship Specialty Start Date End Date Ferny Gentile MD [address] [facility] [address] [place] [address] PCP - General 06/11/15 documented as of this encounter
--- OUTSIDE RECORDS SUMMARY | 2025-04-20 14:56 | XMS_ITS | Encounter Summary ---
Author Organization [employer] ([place], [place], [place], [place], [place]) Address [address] [place] [address] Care Team Providers Care Lens Blocker Name Role Phone Sakina Gentilet Primary Care Provider [phone] Encounter Details Date Type Department Care Team (Late st Contact Info) Description 12/14/2018 Transcribed Document [facility] Family Medicine [facility] [place] [address] ProviderArt MD [address] [place] [address] Social History Tobacco Use Types Packs/Day [...] 12/14/2018 14:53 EDT by NICHOLE ARIZMENDI Care Management-Oyster Shucker Care Management Progress Note Discharge Arrangements : [...] Medical Necessity : Yes NICHOLE ARIZMENDI, Care Management-Oyster Shucker - 12/14/2018 14:53 EDT Electronically signed by [facility] Conversion Manager Furniture Cerner at 08/18/2022 11:26 AM CDT documented in this encounter Plan of Treatment Not on file documented as of this encounter Visit Diagnoses Not on filedocumented in this encounter Care Teams Lens Blocker Relationship Specialty Start Date End Date Ferny Gentile [address] [place] [address] PCP - General 05/22/22 documented as of this encounter
--- OUTSIDE RECORDS SUMMARY | 2025-04-20 14:57 | XMS_ITS | Encounter Summary ---
[facility] Organization [facility] Address [address] [place] [address] Care Team Providers Care Risk Control Specialist Name Role Phone Ferny Gentile MD Primary Care Provider [phone] Encounter Details Date Type Department Care Team (Late st Contact Info) Description 04/07/2025 Anticoagulation Visit [facility] [address] [facility] [address] [place] [address] Nuzhat Melvin, [facility] [address] [place] [address] Social History Tobacco Use Types [...] as of this encounter Progress Notes * Nuzhat Melvin, [facility] - 04/07/2025 12:14 PM EST [facility] Anticoagulation Clinic Progress Note Patient Demographics Method of INR reporting: ACELIS HOME MONITOR Estimated OOP Cost: Indication: Paroxsymal Atrial Fibrillation (I48.0) Referring Provider Wojciech Flores MD Reason patient is not on a DOAC: Undetermined Goal INR: 2-3 Warfarin Start Date Fall 2014 Reason patient is not on home monitor: [id number]: CHF (1), HTN (1), Age >74 (2), [...] 02/08 02/17 02/24 03/06 03/10 03/14 03/17 03/24 03/29 04/07 Total Weekly Dose 52.5 mg 52.5 mg 52.5 mg 32.5 mg 57.5 mg 60 mg 65 mg 52.5 mg 47.5 mg 52.5 mg INR 1.9 2.7 1.8 1.2 1.5 1.7 2.2 2.4 2.00 2.8 Notes Hold x 5 enox Patient Contact Information Verbal release: Signed 06/29/19 -- September speak with Litzy Naranjo Preferred contact number: Alternative contact number(s): [phone] ([employer] Mobile) Patient Appropriate for WarfNoCall ? [...] in diet/appetite, Hospital admission, Bruising, Other complaints Assessment and Plan: INR is therapeutic at 2.8 (2.0-3.0). Instructed patient to resume warfarin 7.5 mg daily until recheck. Recheck INR in 1 week, 04/14/25. Patient prefers testing Fridays. Verbal and written information provided. Luz Skaggs expresses understanding by teach back andhas no further questions at this time. Nuzhat Melvin RPH 04/07/2025 12:14 EST documented in this encounter Plan of Treatment Upcoming Encounters Date Type Department Care Team (Late st Contact Info) Description 06/30/2025 11:30 AM EST Office Visit [facility] RHEUMATOLOGY [address] [place] [address] David Bernstein MD [address] [place] [address] 10/03/2025 2:45 PM EDT Office Visit [facility] CARDIOLOGY 3000 [facility] [address] [place] [address] Yon Govea MD [address] [facility] [address] [place], [place] [address] 06/14/2026 1:30 PM EST Office Visit [facility] CARDIOLOGY [address] [place] [address] [place] [address] Wojciech Flores MD 1720 [facility] [address]ld[address] E [address] [place], [place] [address] documented as of this encounter Procedures Procedure Name Priority Date/Time Associated Diagnosis Comments PROTIME-INR Routine 04/07/2025 documented in this encounter Results * Protime-INR (04/07/2025) INR 2.80 Blood us Historical Provider LAB BLOOD ORDERABLES Agata l Result documented in this encounter Visit Diagnoses Not on filedocumented in this encounter Care Teams Risk Control Specialist Relationship Specialty Start Date End Date Ferny Gentile MD 1210 [facility] [address] [place] [address] PCP - General 06/11/15 documented as of this encounter
--- OUTSIDE RECORDS SUMMARY | 2025-04-20 14:57 | XMS_ITS | Encounter Summary ---
[facility] Organization [facility] Address [address] [place] [address] Care Team Providers Care Food Service Lead Name Role Phone Ferny Gentile MD Primary Care Provider [phone] Encounter Details Date Type Department Care Team (Late st Contact Info) Description 03/14/2025 Anticoagulation Visit [facility] 1720 [facility] [address] [place] [address] Claudia Bauer, PharmD [address] [place] [address] Social History Tobacco Use Types [...] Bauer, PharmD - 03/14/2025 10:43 AM EST [facility] Anticoagulation Clinic Progress Note Patient Demographics Method of INR reporting: ACELIS HOME MONITOR Estimated OOP Cost: Indication: Paroxsymal Atrial Fibrillation (I48.0) Referring Provider Wojciech Flores MD Reason patient is not on a DOAC: Undetermined Goal INR: 2-3 Warfarin Start Date Fall 2014 Reason patient is not on home monitor: [id number]: CHF (1), HTN (1), Age >74 (2), [...] Naranjo Preferred contact number: Alternative contact number(s): [phone] ([employer]) Patient Appropriate for WarfNoCall ? [...] HOSPITAL RHEUMATOLOGY [address] [place] [address] David Bernstein MD [address] [place] [address] 10/03/2025 2:45 PM EDT Office Visit [facility] CARDIOLOGY [address] [facility] [address] [place] [address] Yon Govea MD 1720 [facility] [address] [place], [place] [address] 06/14/2026 1:30 PM EST Office Visit [facility] CARDIOLOGY [address] [place] [address] Wojciech Flores MD 1720 [facility] Bldg E [address] [place], [place] [id number] documented as of this encounter Procedures Procedure Name Priority Date/Time Associated Diagnosis Comments PROTIME-INR Routine 03/14/2025 documented in this encounter Results * Protime-INR (03/14/2025) INR 1.70 Blood us Historical Provider LAB BLOOD ORDERABLES Agata l Result documented in this encounter Visit Diagnoses Not on filedocumented in this encounter Care Teams Food Service Lead Relationship Specialty Start Date End Date Ferny Gentile MD [address] [facility] [address] [place] [address] PCP - General 06/11/15 documented as of this encounter
--- OUTSIDE RECORDS SUMMARY | 2025-04-20 14:57 | XMS_ITS | Encounter Summary ---
Author Organization [facility] Address [address] [place] [address] Care Team Providers Care Sales Receptionist Name Role Phone Ferny Gentile MD Primary [...] Visit [facility] RHEUMATOLOGY 330 [facility] 100 [place] [address] David Bernstein MD [address] [facility] [address] [place] [address] 10/03/2025 2:45 PM EDT Office Visit [facility] CARDIOLOGY 3000 [facility] [address] [place] [address] Yon Govea MD 1720 [facility] [address] [place] [address] 06/14/2026 1:30 PM EST Office Visit [facility] CARDIOLOGY [address] [place] [address] [place] [address] Wojciech Flores MD 1720 [facility] E [facility] [address] [place], [place] [address] documented as of this encounter Visit Diagnoses Not on filedocumented in this encounter Care Teams Sales Receptionist Relationship Specialty Start Date End Date Ferny Gentile MD [address] [place] [address] [facility] [address] [place] [address] PCP - General 06/11/15 documented as of this encounter
--- OUTSIDE RECORDS SUMMARY | 2025-04-20 14:57 | XMS_ITS | Encounter Summary ---
Author Organization [employer] ([place], [place], [place], [place], [place]) Address [address] [place] [address] Care Team Providers Care Site Operations Manager Name Role Phone Douglas Gentileght Primary Care Provider [phone] Encounter Details Date Type Department Care Team (Late st Contact Info) Description 12/14/2018 Transcribed Document [facility] [place] [facility] [place] [address] ProviderArt MD [address] [place] [address] Social History Tobacco Use Types Packs/Day [...] Barley. Bulgur wheat. Millet. Bran muffins. Popcorn. [place] wafer crackers. Vegetables Sweet potatoes. Spinach. Kale. Artichokes. Cabbage. Broccoli. Green peas. Carrots. Squash. Fruits Berries. Pears. Apples. Oranges. Avocados. Prunes and raisins. Dried figs. Meats and Other Protein Sources [place], kidney, shrestha, and soy beans. Split peas. [...] zuri has 11 g of protein. ?? Briggs seeds - 1 oz has 5.5 g [...] floor. ?? Place frequently used items in aeyx-ju-zcivj places ?? Keep electrical cables out of [...] ?? Using the bathroom. ?? Using household branding specialist or toxic chemicals. ?? Touching or taking [...] on filedocumented in this encounter Care Teams Site Operations Manager Relationship Specialty Start Date End Date Ferny Gentile [address] [place] [phone] PCP - General 05/22/22 documented as of this encounter
--- OUTSIDE RECORDS SUMMARY | 2025-04-20 14:57 | XMS_ITS | Encounter Summary ---
Author Organization [employer] ([place], [place], [place], [place], [place]) Address [address] [place] [address] Care Team Providers Care Motor Equipment Sergeant Name Role Phone Ferny Gentile Primary Care Provider [phone] Encounter Details Date Type Department Care Team (Late st Contact Info) Description 12/14/2018 Transcribed Document [facility] [place] Family Medicine [facility] [place] [address] ProviderArt MD [address] [place] [address] Social History Tobacco Use Types Packs/Day [...] 10:12 PT Treatment Instructions Ordered By: MATTHEW BANEAGS MD-ORTheo 12/14/2018 10:12 PT Treatment Instructions Ordered [...] Place : Fall prevention measures SAFIA BURGOS [facility] - 12/15/2018 12:46 EDT General Status [...] Established w Patient : Yes SAFIA BURGOS [facility] 12/15/2018 12:46 EDT Beading Machine Operator Goals Other PT LTG Grid Goal #1 [...] EDT 12/15/2018 EDT 12/15/2018 EDT SAFIA BURGOS, VICE PRESIDENT PAYMENT - 12/15/2018 12:46 EDT CHARLENE BURGOSIN, VICE PRESIDENT PAYMENT - 12/15/2018 12:46 EDT AUBREYCHARLENEIN, [facility] - 12/15/2018 12:46 EDT SAFIA BURGOS, [facility] - 12/15/2018 12:46 EDT Treatment Note Subjective [...] the text rendition version of the form. [place] PT Charges PT Therap. Exercise 15 min : 2 Gait Training Each 15 Min : 1 CHARLENE BURGOSBARBIE WATSON - 12/15/2018 12:46 EDT Electronically signed by Brina Zamarripa Conversion Marketing Director Assisted Living Cerner at 08/22/2022 8:25 AM CDT documented in this encounter Plan of Treatment Not on file documented as of this encounter Visit Diagnoses Not on filedocumented in this encounter Care Teams Motor Equipment Sergeant Relationship Specialty Start Date End Date Seferino Ferny [facility]5 [place] [address] PCP - General 05/22/22 documented as of this encounter
--- OUTSIDE RECORDS SUMMARY | 2025-04-20 14:57 | XMS_ITS | Encounter Summary ---
Author Organization [employer] ([place], [place], [place], [place], [place]) Address [address] [place] [address] Care Team Providers Care Flat Sorter Processor Name Role Phone Seferino Ferny Primary Care Provider [phone] Encounter Details Date Type Department Care Team (Late st Contact Info) Description 12/15/2018 Transcribed Document [facility] [address] ProviderArt MD [address] [place] [address] Social History Tobacco Use Types Packs/Day [...] - Medical Enoxaparin 40 mg, SubCutaneous, Inj, [id number], Routine, Start 12/15/18 9:00:00 EDT (MATTHEW BANEGAS) [...] Q12H Lovenox, 40 mg= 0.4 mL, SubCutaneous, [id number] magnesium oxide, 400 mg= 1 Tab, Oral, [...] 1.1 12/15/2018 05:15 EDT Electronically signed by Interface, Sjh Conversion [employer] Chair Cerner at 08/18/2022 11:15 AM CDT documented in this encounter Plan of Treatment Not on file documented as of this encounter Visit Diagnoses Not on filedocumented in this encounter Care Teams Flat Sorter Processor Relationship Specialty Start Date End Date Ferny Gentile [address] [place] [address] PCP - General 05/22/22 documented as of this encounter
--- OUTSIDE RECORDS SUMMARY | 2025-04-20 14:57 | XMS_ITS | Encounter Summary ---
Author Organization [employer] ([place], [place], [place], [place], [place]) Address [address] [place] [address] Care Team Providers Care Script Girl Name Role Phone Ferny Gentile Primary Care Provider [phone] Encounter Details Date Type Department Care Team (Late st Contact Info) Description 12/14/2018 Transcribed Document [facility] [place] [facility] [place] [address] ProviderArt MD [address] [place] [address] Social History Tobacco Use Types Packs/Day [...] Obtained From : Patient Primary Language : Citizen [place] Preferred Communication Mode : Verbal Communication Barrier [...] Scale Risk Level : 25-45 Medium Risk [place] Fall Interventions : Adequate lighting, Assistive devices [...] High Risk Interventions : Bed alarm on [place], Christopher L, RN - 12/14/2018 10:39 EDT [...] Source : Stated Height Entry Format : [place] Height, Feet : 5 ft(Converted to: 152 cm, 60 Inch) Height, Inches : 7 Inch(Converted to: 0 ft 7 Inch, 17.78 cm) Clinical Height : 170.18 cm Weight Source : Standing scale Weight Entry Format : [place] Clinical Dosing Weight : 90.91 kg Weight, Pounds : 200 lb Body Surface Area (BSA) : 2.02 m2 Body Mass Index : 31.4 kg/m2 (HI) [place] Body Weight : 61 kg Amandeep Martinez [...] : Yes Gender Male : No Amandeep Maritnez RN - 12/14/2018 10:39 EDT Valuables and [...] Amandeep Martinez RN - 12/14/2018 10:39 EDT Electronically signed by Zach Zamarripa Conversion White Sugar Pan Tank Operator Cerner at 08/18/2022 11:16 AM CDT documented in this encounter Plan of Treatment Not on file documented as of this encounter Visit Diagnoses Not on filedocumented in this encounter Care Teams Script Girl Relationship Specialty Start Date End Date Ferny Gentile [address] [place] [address] PCP - General 05/22/22 documented as of this encounter
--- OUTSIDE RECORDS SUMMARY | 2025-04-20 14:57 | XMS_ITS | Encounter Summary ---
Author Organization [facility] Address [address] [place] [address] Care Team Providers Care Sand Shoveler Name Role Phone Ferny Gentile MD Primary Care Provider [phone] Encounter Details Date Type Department Care Team (Late st Contact Info) Description 02/21/2025 Telephone [facility] ANTICOAGULATION CLINIC [address] [place] [address] Karen Mace, Lab Analyst Social History Tobacco Use Types Packs/Day Years [...] Notes * Telephone Encounter - Karen Mace, Lab Analyst - 02/21/2025 3:12 PM EDT Counseled patient on bridge plan. Patient and her daughter verbalized understanding and have no further questions at this time. Karen Mace CPhT, Johanna 15:12 EDT 02/21/2025 * Telephone Encounter - Karen Mace Lab Analyst - 02/21/2025 8:27 AM EDT LVM to review bridge plan with patient. Karen Mace CPhT, Johanna 08:39 EDT 02/21/2025 documented in this encounter Plan of Treatment Upcoming Encounters Date Type Department Care Team (Late st Contact Info) Description 06/30/2025 11:30 AM EST Office Visit [facility] RHEUMATOLOGY [address] [phone] David Bernstein MD [address] [place], [place] [address] 10/03/2025 2:45 PM EDT Office Visit [facility] CARDIOLOGY 3000 [facility] [address] [place] [address] Yon Govea MD 1720 [facility] [address] [place], [place] [address] 06/14/2026 1:30 PM EST Office Visit [facility] CARDIOLOGY [address] [place] [address] Wojciech Flores MD 1720 [facility] B[address] [place], [place] [address] documented as of this encounter Visit Diagnoses Not on filedocumented in this encounter Care Teams Sand Shoveler Relationship Specialty Start Date End Date Ferny Gentile MD 1210 [facility] [address] [place] [address] PCP - General 06/11/15 documented as of this encounter
--- OUTSIDE RECORDS SUMMARY | 2025-04-20 14:57 | XMS_ITS | Encounter Summary ---
Author Organization [facility] Address [address] [place] [address] Care Team Providers Care Outside Contractor Sales Name Role Phone Ferny Gentile MD Primary Care Provider [phone] Encounter Details Date Type Department Care Team (Late st Contact Info) Description 03/14/2025 Telephone [facility] ANTICOAGULATION CLINIC [address] [place] [address] Karen Mace, Rocket Engine Mechanic Social History Tobacco Use Types Packs/Day Years [...] Notes * Telephone Encounter - Karen Mace, Rocket Engine Mechanic - 03/14/2025 10:13 AM EST Received a voicemail from [employer] requesting a new prescription form be sent in, irving patient reports she is switching providers. Attempted to call patient to confirm. ULVM. Karen Mace CPhT, RPhT 10:13 EST 03/14/2025 documented in this encounter Plan of Treatment Upcoming Encounters Date Type Department Care Team (Late st Contact Info) Description 06/30/2025 11:30 AM EST Office Visit [facility] RHEUM[facility] [address] [address] David Bernstein MD 330 [facility] 100 [place] [address] 10/03/2025 2:45 PM EDT Office Visit [facility] CARDIOLOGY 3000 [facility] [address] [place] [address] Yon Govea MD 1720 [facility] [address] [place] [address] 06/14/2026 1:30 PM EST Office Visit [facility] CARDIOLOG[facility] [address] [place] [address] [address] [place] [address] Wojciech Flores MD 1720 [facility] [address] [place], [place] [address] documented as of this encounter Visit Diagnoses Not on filedocumented in this encounter Care Teams Outside Contractor Sales Relationship Specialty Start Date End Date Ferny Gentile MD 1210 [facility] [address] [place] [address] PCP - General 06/11/15 documented as of this encounter
--- OUTSIDE RECORDS SUMMARY | 2025-04-20 14:57 | XMS_ITS | Encounter Summary ---
[facility] Address [address] [place] [address] Care Team Providers Care Roll Weigher Name Role Phone Ferny Gentile MD Primary Care Provider [phone] Encounter Details Date Type Department Care Team (Late st Contact Info) Description 03/24/2025 Anticoagulation Visit [facility] [address] [facility] [address] [place] [address] Claudia Bauer, PharmD [address] [place] [address] Social History Tobacco Use Types [...] Progress Notes * Claudia Bauer, PharmD - 03/24/2025 1:16 PM EST [facility] Anticoagulation [facility] Progress Note Patient Demographics Method of INR reporting: ACELIS HOME MONITOR Estimated OOP Cost: Indication: Paroxsymal Atrial Fibrillation (I48.0) Referring Provider Wojciech Flores MD Reason patient is not on a DOAC: Undetermined Goal INR: 2-3 Warfarin Start Date Fall 2014 Reason patient is not on home monitor: [id number]: CHF (1), HTN (1), Age >74 (2), [...] 02/17 02/24 03/06 03/10 03/14 03/17 03/24 Total Weekly Dose 52.5 mg 52.5 mg 52.5 mg 32.5 mg 57.5 mg 60 mg 65 mg 52.5 mg INR 1.9 2.7 1.8 1.2 1.5 1.7 2.2 2.4 Notes Hold x 5 enox Patient Contact Information Verbal release: Signed 06/29/19 -- May speak with Litzy Naranjo Preferred contact number: Alternative contact number(s): [phone] (Litzy's Mobile) Patient Appropriate for WarfNoCall ? [...] New: None Patient Findings Positives: Change in medications Negatives: Signs/symptoms of thrombosis, Signs/symptoms of bleeding, Laboratory test error suspected, Change in health, Change in alcohol use, Change in activity, Upcoming invasive procedure, Emergency department visit, Upcoming dental procedure, Missed doses, Extra doses, Change in diet/appetite, Hospital admission, Bruising, Other complaints Comments: Patient received steroid injection today as well as prescribed Medrol DP which she will start today for gout. All current findings negative per patient and/or caregiver. Correct dosing verified. Assessment and Plan: INR is therapeutic at 2.4 (2.0-3.0). Instructed patient to warfarin 7.5 mg daily except for warfarin 5 mg on Thu/Thu until recheck. Decrease in dose due to steroid injection and starting Medrol Dosepak Recheck INR in 1 week, 03/29--due to DDI with Medrol . Patient prefers testing Fridays. Verbal and written information provided. Luz Skaggs expresses understanding by teach back andhas no further questions at this time. Claudia Bauer, PharmD 03/24/2025 13:25 EST documented in this encounter Plan of Treatment Upcoming Encounters Date Type Department Care Team (Late st Contact Info) Description 06/30/2025 11:30 AM EST Office Visit [facility] RHEUMATOLOGY [address] [facility] [address] [place] [phone] David Bernstein MD [address] [facility] [address] [place] [address] 10/03/2025 2:45 PM EDT Office Visit [facility] CARDIOLOGY [address] [facility] [address] [place] [address] Yon Govea MD 1720 [facility] [address] [place], [place] [address] 06/14/2026 1:30 PM EST Office Visit [facility] CARDIOLOGY [address] [place] [address] [place] [address] Wojciech Flores MD [address] [facility] [address] [place], [place] [id number] documented as of this encounter Procedures Procedure Name Priority Date/Time Associated Diagnosis Comments PROTIME-INR Routine 03/24/2025 documented in this encounter Results * Protime-INR (03/24/2025) INR 2.40 Blood us Historical Provider LAB BLOOD ORDERABLES Agata l Result documented in this encounter Visit Diagnoses Not on filedocumented in this encounter Care Teams Roll Weigher Relationship Specialty Start Date End Date Ferny Gentile MD [address] [facility] [address] [place] [address] PCP - General 2/8/16 documented as of this encounter
--- OUTSIDE RECORDS SUMMARY | 2025-04-20 14:57 | XMS_ITS | Encounter Summary ---
[facility] Address [address] [place] [address] Care Team Providers Care Trim Setter Helper Name Role Phone Ferny Gentile MD Primary Care Provider [phone] Encounter Details Date Type Department Care Team (Late st Contact Info) Description 04/14/2025 Anticoagulation Visit [facility] [address] [facility] [address] [place] [address] Claudia Bauer, PharmD [address] [place] [address] Social History Tobacco Use Types [...] Progress Notes * Claudia Bauer, PharmD - 04/14/2025 11:50 AM EST [facility] Anticoagulation Clinic Progress Note Patient Demographics Method of INR reporting: ACELIS HOME MONITOR Estimated OOP Cost: Indication: Paroxsymal Atrial Fibrillation (I48.0) Referring Provider Wojciech Flores MD Reason patient is not on a DOAC: Undetermined Goal INR: 2-3 Warfarin Start Date Fall 2014 Reason patient is not on home monitor: [id number]: CHF (1), HTN (1), Age >74 (2), [...] 03/06 03/10 03/14 03/17 03/24 03/29 04/07 04/14 Total Weekly Dose 52.5 mg 52.5 mg 52.5 mg 32.5 mg 57.5 mg 60 mg 65 mg 52.5 mg 47.5 mg 52.5 mg 52.5 mg INR 1.9 2.7 1.8 1.2 1.5 1.7 2.2 2.4 2.00 2.8 2.2 Notes Hold x 5 enox Patient Contact Information Verbal release: Signed 06/29/19 -- September speak with Litzy Naranjo Preferred contact number: Alternative contact number(s): [phone] (LitzyCaarbon) Patient Appropriate for WarfNoCall ? No Preferred [...] Plan: INR is therapeutic at 2.2 (2.0-3.0). Instructed patient to continue warfarin 7.5 mg daily until recheck. Recheck INR in 1 week, 04/21/25. Patient prefers testing Fridays. Verbal and written information provided. Luz Skaggs expresses understanding by teach back andhas no further questions at this time. Claudia Bauer PharmD 04/14/2025 11:53 EST documented in this encounter Plan of Treatment Upcoming Encounters Date Type Department Care Team (Late st Contact Info) Description 06/30/2025 11:30 AM EST Office Visit [facility] RHEUMATOLOGY [address] [place] [address] David Bernstein MD [address] [place], [place] [address] 10/03/2025 2:45 PM EDT Office Visit [facility] CARDIOLOGY [address] [facility] [address] [place] [address] Yon Govea MD [address] [facility] [address] [place], [place] [address] 06/14/2026 1:30 PM EST Office Visit [facility] CARDIOLOGY [address] [place] [address] [place] [address] Wojciech Flores MD [address] [facility] [address] [place], [place] [address] documented as of this encounter Procedures Procedure Name Priority Date/Time Associated Diagnosis Comments PROTIME-INR Routine 04/14/2025 documented in this encounter Results * Protime-INR (04/14/2025) INR 2.20 Blood us Historical Provider LAB BLOOD ORDERABLES Agata l Result documented in this encounter Visit Diagnoses Not on filedocumented in this encounter Care Teams Trim Setter Helper Relationship Specialty Start Date End Date Ferny Gentile MD [address] [facility] [address] [place] [address] PCP - General 06/11/15 documented as of this encounter
--- OUTSIDE RECORDS SUMMARY | 2025-04-20 14:57 | XMS_ITS | Encounter Summary ---
[facility] Address [address] [place] [address] Care Team Providers Care Experimental Mechanic Spacecraft Name Role Phone Ferny Gentile MD Primary Care Provider [phone] Encounter Details Date Type Department Care Team (Late st Contact Info) Description 03/29/2025 Anticoagulation Visit [facility] [address] [facility] [address] [place] [address] Claudia Bauer, PharmD [address] [place] [address] Social History Tobacco Use Types [...] Progress Notes * Claudia Bauer, PharmD - 03/29/2025 11:26 AM EST [facility] Anticoagulation Clinic Progress Note Patient Demographics Method of INR reporting: ACELIS HOME MONITOR Estimated OOP Cost: Indication: Paroxsymal Atrial Fibrillation (I48.0) Referring Provider Wojciech Flores MD Reason patient is not on a DOAC: Undetermined Goal INR: 2-3 Warfarin Start Date Fall 2014 Reason patient is not on home monitor: [id number]: CHF (1), HTN (1), Age >74 (2), [...] 02/24 03/06 03/10 03/14 03/17 03/24 03/29 Total Weekly Dose 52.5 mg 52.5 mg 52.5 mg 32.5 mg 57.5 mg 60 mg 65 mg 52.5 mg 47.5 mg INR 1.9 2.7 1.8 1.2 1.5 1.7 2.2 2.4 2.00 Notes Hold x 5 enox Patient Contact Information Verbal release: Signed 06/29/19 -- May speak with Litzy Naranjo Preferred contact number: Alternative contact number(s): [phone] (Litzy's Mobile) Patient Appropriate for WarfNoCall ? [...] Hospital admission, Bruising, Other complaints Comments: Patient got confused and has not been prescribed a Zpak as reported in telephone encounter from 03/28/25 All current findings negative per patient and/or caregiver. Correct dosing verified. Assessment and Plan: INR is therapeutic at 2.0 (2.0-3.0). Instructed patient to resume warfarin 7.5 mg daily until recheck. Recheck INR in 1 week, 04/07/25. Patient prefers testing Fridays. Verbal and written information provided. Luz Skaggs expresses understanding by teach back andhas no further questions at this time. Claudia Bauer, PharmKelli 03/29/2025 11:26 EST documented in this encounter Plan of Treatment Upcoming Encounters Date Type Department Care Team (Late st Contact Info) Description 06/30/2025 11:30 AM EST Office Visit [facility] RHEUMATOLOGY [address] [place] [address] David Bernstein MD [address] [place], [place] [address] 10/03/2025 2:45 PM EDT Office Visit [facility] CARDIOLOGY [address] [facility] [address] [place] [address] Yon Govea MD [address] [facility] [address] [place], [place] [address] 06/14/2026 1:30 PM EST Office Visit [facility] CARDIOLOGY [address] [place] [address] [place] [address] Wojciech Flores MD [address] [facility] [address] [place], [place] [address] documented as of this encounter Procedures Procedure Name Priority Date/Time Associated Diagnosis Comments PROTIME-INR Routine 03/29/2025 documented in this encounter Results * Protime-INR (03/29/2025) INR 2.00 Blood us Historical Provider LAB BLOOD ORDERABLES Agata l Result documented in this encounter Visit Diagnoses Not on filedocumented in this encounter Care Teams Experimental Mechanic Spacecraft Relationship Specialty Start Date End Date Ferny Gentile MD [address] [facility] [address] [place] [address] PCP - General 06/11/15 documented as of this encounter
--- OUTSIDE RECORDS SUMMARY | 2025-04-20 14:57 | XMS_ITS | Encounter Summary ---
Author Organization [employer] ([place], [place], [place], [place], [place]) Address [address] [place] [address] Care Team Providers Care Asbestos Hazard Abatement Worker Name Role Phone Ferny Gentile Primary Care Provider [phone] Encounter Details Date Type Department Care Team (Late st Contact Info) Description 12/15/2018 Transcribed Document [facility] Family Medicine [facility] [place] [address] ProviderArt MD [address] [place] [address] Social History Tobacco Use Types Packs/Day [...] ANTONIO WHITLEY RN - 12/15/2018 9:33 EDT Electronically signed by Brina Zamarripa Conversion Regional Maintenance Manager Cerner at 08/18/2022 11:19 AM CDT documented in this encounter Plan of Treatment Not on file documented as of this encounter Visit Diagnoses Not on filedocumented in this encounter Care Teams Asbestos Hazard Abatement Worker Relationship Specialty Start Date End Date SeferinoFerny [address] [place] [address] PCP - General 05/22/22 documented as of this encounter
--- OUTSIDE RECORDS SUMMARY | 2025-04-20 14:57 | XMS_ITS | Encounter Summary ---
Author Organization [employer] ([place], [place], [place], [place], [place]) Address [address] [place] [address] Care Team Providers Care Purchasing Department Clerk Name Role Phone SeferinoSakinat Primary Care Provider [phone] Encounter Details Date Type Department Care Team (Late st Contact Info) Description 12/15/2018 Transcribed Document [facility] Family Medicine [facility] [place] [address] ProviderArt MD [address] [place] [address] Social History Tobacco Use Types Packs/Day [...] Amos Robertson RN - 12/15/2018 4:49 EDT Electronically signed by Brina Zamarriap Conversion Insulation Machine Operator Cerner at 08/18/2022 11:27 AM CDT documented in this encounter Plan of Treatment Not on file documented as of this encounter Visit Diagnoses Not on filedocumented in this encounter Care Teams Purchasing Department Clerk Relationship Specialty Start Date End Date Ferny Gentile [address] [place] [address] PCP - General 05/22/22 documented as of this encounter
--- OUTSIDE RECORDS SUMMARY | 2025-04-20 14:57 | XMS_ITS | Encounter Summary ---
[facility] Address [address] [place] [address] Care Team Providers Care E Commerce Specialist Name Role Phone Ferny Gentile MD Primary Care Provider [phone] Encounter Details Date Type Department Care Team (Late st Contact Info) Description 03/28/2025 Telephone [facility] [address] [place] [address] Karen Mace, Physician Anesthesiologist Social History Tobacco Use Types Packs/Day Years [...] Notes * Telephone Encounter - Karen Mace, Physician Anesthesiologist - 03/28/2025 10:19 AM EST Patient called and reports she was prescribed a Zpak. She inquired if she needed to make any changes to her warfarin dosing. Instructed patient to take 7.5 mg tonight and recheck INR tomorrow. Karen Mace CPhT, RP 10:23 EST 03/28/2025 documented in this encounter Plan of Treatment Upcoming Encounters Date Type Department Care Team (Late st Contact Info) Description 06/30/2025 11:30 AM EST Office Visit [facility] RHEUMATOLOGY [address] [address] David Bernstein MD 330 [facility] 100 [place] [address] 10/03/2025 2:45 PM EDT Office Visit [facility] CARDIOLOGY [address] [facility] [address] [place] [address] Yon Govea MD [address] [facility] [address] [place] [address] 06/14/2026 1:30 PM EST Office Visit [facility] CARDIOLOGY [address] [place] [address] [address] Wojciech Flores MD [address] [facility] [address] [place], [place] [address] documented as of this encounter Visit Diagnoses Not on filedocumented in this encounter Care Teams E Commerce Specialist Relationship Specialty Start Date End Date Ferny Gentile MD 1210 [facility] [address] [place] [address] PCP - General 06/11/15 documented as of this encounter
--- OUTSIDE RECORDS SUMMARY | 2025-04-20 14:57 | XMS_ITS | Encounter Summary ---
[facility] Address [address] [place] [address] Care Team Providers Care Arts And Sciences Dean Name Role Phone Ferny Gentile MD Primary Care Provider [phone] Encounter Details Date Type Department Care Team (Late st Contact Info) Description 03/17/2025 Anticoagulation Visit [facility] ANTICO[facility]ULATION CLINIC [address] [place] [address] Karen Mace, Smoke Tester Social History Tobacco Use Types Packs/Day Years [...] this encounter Progress Notes * Karen Mace, Smoke Tester - 03/17/2025 1:14 PM EST [facility] Anticoagulation Clinic Progress Note Patient Demographics Method of INR reporting: ACELIS HOME MONITOR Estimated OOP Cost: Indication: Paroxsymal Atrial Fibrillation (I48.0) Referring Provider Wojciech Flores MD Reason patient is not on a DOAC: Undetermined Goal INR: 2-3 Warfarin Start Date Fall 2014 Reason patient is not on home monitor: [id number]: CHF (1), HTN (1), Age >74 (2), [...] Naranjo Preferred contact number: Alternative contact number(s): [phone] (Litzy's Mobile) Patient Appropriate for WarfNoCall ? [...] at this time. Karen Mace CPhT, [facility] 13:34 EST 03/17/2025 Claudia Mathis PharmD, have reviewed the note in full and agree with the assessment and plan. 03/17/25 13:39 EST documented in this encounter Plan of Treatment Upcoming Encounters Date Type Department Care Team (Late st Contact Info) Description 06/30/2025 11:30 AM EST Office Visit [facility] RHEUMATOLOGY [address] [place] [address] David Bernstein MD [address] [place] [address] 10/03/2025 2:45 PM EDT Office Visit [facility] CARDIOLOGY [address] [facility] [address] [place] [address] Yon Govea MD 17[address] [facility] [address] [place], [place] [address] 06/14/2026 1:30 PM EST Office Visit [facility] CARDIOLOGY [address] [place] [address] [place] [address] Wojciech Flores MD 1720 [facility] [address] [place], [place] [address] documented as of this encounter Procedures Procedure Name Priority Date/Time Associated Diagnosis Comments PROTIME-INR Routine 03/17/2025 documented in this encounter Results * Protime-INR (03/17/2025) INR 2.20 Blood 03/17/2025 us Historical Provider LAB BLOOD ORDERABLES Agata l Result documented in this encounter Visit Diagnoses Not on filedocumented in this encounter Care Teams Arts And Sciences Dean Relationship Specialty Start Date End Date Ferny Gentile MD 1210 [facility] [address] [place] [address] PCP - General 06/11/15 documented as of this encounter
--- OUTSIDE RECORDS SUMMARY | 2025-04-20 14:57 | XMS_ITS | Encounter Summary ---
[facility] Address [address] [place] [address] Care Team Providers Care Poultry Dressing Worker Name Role Phone Ferny Gentile MD Primary Care Provider [phone] Reason for Visit * Reason Onset Date Comments Medical Clearance 02/21/2025 Encounter Details Date Type Department Care Team (Late st Contact Info) Description 02/21/2025 Telephone [facility] CARDIOLOGY [address] [facility] [address] [place] [address] Wojciech Flores MD [address] [facility] [address] [place] [address] Medical Clearance Social History Tobacco Use Types [...] AM EDT Received cardiac clearance request from [facility] for a colonoscopy on 03/02. As noted in the 02/10/25 telephone encounter, an anticoagulation plan was arranged and approved by Dr. Govea with EP. documented in this encounter Plan of Treatment Upcoming Encounters Date Type Department Care Team (Late st Contact Info) Description 06/30/2025 11:30 AM EST Office Visit [facility] RHEUMATOLOGY 330 [facility] 100 [place] [address] David Bernstein MD 330 [facility] 100 [place] [address] 10/03/2025 2:45 PM EDT Office Visit [facility] CARDIOLOGY [address] [facility] [address] [place] [address] Yon Govea MD [address] [facility] [address] [place] [address] 06/14/2026 1:30 PM EST Office Visit [facility] CARDIOLOGY [address] [place] [address] [address] [place] [address] Wojciech Flores MD 17[address] [facility] [address] [place] [address] documented as of this encounter Visit Diagnoses Not on filedocumented in this encounter Care Teams Poultry Dressing Worker Relationship Specialty Start Date End Date Ferny Gentile MD 1210 [facility] [address] [place] [address] PCP - General 06/11/15 documented as of this encounter
--- OUTSIDE RECORDS SUMMARY | 2025-04-20 14:57 | XMS_ITS | Encounter Summary ---
Author Organization [employer] ([place], [place], [place], [place], [place]) Address [address] [place] [address] Care Team Providers Care Honing Machine Operator Tool Name Role Phone Seferino Ferny Primary Care Provider [phone] Encounter Details Date Type Department Care Team (Late st Contact Info) Description 12/02/2018 Transcribed Document [facility] Family Medicine [place] [address] ProviderArt MD [address] [place] [address] Social History Tobacco Use Types Packs/Day [...] Source : Stated Height Entry Format : [place] Height, Feet : 5 ft(Converted to: 152 cm, 60 Inch) Height, Inches : 7 Inch(Converted to: 0 ft 7 Inch, 17.78 cm) Clinical Height : 170.18 cm Weight Source : Standing scale Weight Entry Format : [place] Clinical Dosing Weight : 90.91 kg Weight, Pounds : 200 lb Body Surface Area (BSA) : 2.02 m2 Body Mass Index : 31.4 kg/m2 (HI) [place] Body Weight : 61 kg CINDY DAVID [...] #2 Relationship : - Primary Language : Samoan Communication Barrier : None CINDY DAVID RN [...] - 12/02/2018 11:37 EDT Electronically signed by [facility], [facility] Conversion Middle Stitcher Cerner at 08/18/2022 11:25 AM CDT documented in this encounter Plan of Treatment Not on file documented as of this encounter Visit Diagnoses Not on filedocumented in this encounter Care Teams Honing Machine Operator Tool Relationship Specialty Start Date End Date Ferny Gentile [address] [place] [address] PCP - General 05/22/22 documented as of this encounter
--- OUTSIDE RECORDS SUMMARY | 2025-04-20 14:57 | XMS_ITS | Encounter Summary ---
[facility] Organization [facility] Address [address] [place] [address] Care Team Providers Care Property Claim Rep Name Role Phone Ferny Gentile MD Primary Care Provider [phone] Encounter Details Date Type Department Care Team (Late st Contact Info) Description 02/24/2025 Anticoagulation Visit [facility] [address] [place] [address] Dayron Diallo, Dipper And Drier Social History Tobacco Use Types Packs/Day Years [...] this encounter Progress Notes * Dayron Diallo, Dipper And Drier - 02/24/2025 11:24 AM EDT [facility] Progress Note Patient Demographics Method of INR reporting: ACELIS HOME MONITOR Estimated OOP Cost: Indication: Paroxsymal Atrial Fibrillation (I48.0) Referring Provider Wojciech Flores MD Reason patient is not on a DOAC: Undetermined Goal INR: 2-3 Warfarin Start Date Fall 2014 Reason patient is not on home monitor: [id number]: CHF (1), HTN (1), Age >74 (2), [...] Naranjo Preferred contact number: Alternative contact number(s): [phone] ([employer]) Patient Appropriate for WarfNoCall ? [...] further questions at this time. Dayron Diallo [facility] 02/24/2025 14:42 EDT I, Radha Etienne, MadisonD, have reviewed the note in full and agree with the assessment and plan. 02/24/25 15:43 EDT documented in this encounter Plan of Treatment Upcoming Encounters Date Type Department Care Team (Late st Contact Info) Description 06/30/2025 11:30 AM EST Office Visit [facility] RHEUMATOLOGY 330 [facility] 100 [place] [address] David Bernstein MD 330 [facility] 100 [place] [address] 10/03/2025 2:45 PM EDT Office Visit [facility] CARDIOLOGY 3000 [facility] [address] [place] [address] Yno Govea MD 1720 [facility] 400 [place], [place] [id number] 06/14/2026 1:30 PM EST Office Visit [facility] CARDIOLOGY [address] [place] [address] [place] [address] Wojciech Flores MD 1720 [facility] E [facility] 400 [place] [address] documented as of this encounter Procedures Procedure Name Priority Date/Time Associated Diagnosis Comments PROTIME-INR Routine 02/24/2025 documented in this encounter Results * Protime-INR (02/24/2025) INR 1.80 Blood 02/24/2025 us Historical Provider LAB BLOOD ORDERABLES Agata l Result documented in this encounter Visit Diagnoses Not on filedocumented in this encounter Care Teams Property Claim Rep Relationship Specialty Start Date End Date eFrny Gentile MD [facility]0 [facility] [address] [place] [address] PCP - General 06/11/15 documented as of this encounter
--- OUTSIDE RECORDS SUMMARY | 2025-04-20 14:57 | XMS_ITS | Encounter Summary ---
Author Organization [facility] Address [address] [place] [address] Care Team Providers Care Doctor Of Dental Medicine Name Role Phone Ferny Gentile MD Primary Care Provider [phone] Encounter Details Date Type Department Care Team [...] EST Office Visit [facility] RHEUMATOLOGY 330 [facility] 100 [place] [address] David Bernstein MD 330 [facility] 100 [place] [address] 10/03/2025 2:45 PM EDT Office Visit [facility] CARDIOLOGY 3000 [facility] [address] [place] [address] Yon Govea MD 1720 [facility] 400 [place] [address] 06/14/2026 1:30 PM EST Office Visit [facility] CARDIOLOGY [address] [place] [address] Wojciech Flores MD 1720 [facility] E [facility] 400 [place], [place] [address] documented as of this encounter Visit Diagnoses Not on filedocumented in this encounter Care Teams Doctor Of Dental Medicine Relationship Specialty Start Date End Date Ferny Gentile MD [address] [place] [address] [facility] [address] [place] [address] PCP - General 06/11/15 documented as of this encounter
--- OUTSIDE RECORDS SUMMARY | 2025-04-20 14:57 | XMS_ITS | Encounter Summary ---
Author Organization [employer] ([place], [place], [place], [place], [place]) Address [address] [place] [address] Care Team Providers Care Racecourse Barrier Attendant Name Role Phone Ferny Gentile Primary Care Provider [phone] Encounter Details Date Type Department Care Team (Late st Contact Info) Description 12/14/2018 Transcribed Document [facility] Family Medicine [place] [address] ProviderArt MD [address] [place] [address] Social History Tobacco Use Types Packs/Day [...] NIA MARROQUIN, PT - 12/14/2018 11:16 EDT Clinical Account Manager Goals Other PT LTG Grid Goal #1 [...] be determined pending pt's progress toward goals NAI MARROQUIN, PT - 12/14/2018 11:[address] [facility] PT Charges PT Ther Activities Ea 15 Min : 1 Gait Training Each 15 Min : 1 PT Eval Low Complexity : 1 NIA MARROQUIN, PT - 12/14/2018 11:16 EDT documented in this encounter Plan of Treatment Not on file documented as of this encounter Visit Diagnoses Not on filedocumented in this encounter Care Teams Racecourse Barrier Attendant Relationship Specialty Start Date End Date Seferino Ferny [address] [place] [address] PCP - General 05/22/22 documented as of this encounter
--- OUTSIDE RECORDS SUMMARY | 2025-04-20 14:57 | XMS_ITS | Encounter Summary ---
Author Organization [employer] ([place], [place], [place], [place], [place]) Address [address] [place] [address] Care Team Providers Care Solution Manager Name Role Phone Douglas Gentileght Primary Care Provider [phone] Encounter Details Date Type Department Care Team (Late st Contact Info) Description 12/14/2018 Transcribed Document [facility] Family Medicine [facility] [place] [address] ProviderArt MD [address] [place] [address] Social History Tobacco Use Types Packs/Day [...] ipratropium 21 mcg/inh (0.03%) nasal spray 2 [place], Nasal, BID kynsol magnesium oxide 400 mg [...] 7.5 mg = 1 Tab, Oral, Daily [place] 7.5/325mg 1-2 tabs PO Q6hrs PRN Dilaudid 2mg Q6hrs PRN (extreme pain only, this is not for management of pain but for rescue only) Tramadol 50mg 1 tab Q 6hrs PRN Lovenox 40mg SubQ daily x 4 doses Colace 100mg 1 tab daily Gabapentin 300mg 1 tab QHS Electronically signed by Marilou, [facility] Conversion Foundry Patternmaker Cerner at 08/18/2022 11:18 AM CDT documented in this encounter Plan of Treatment Not on file documented as of this encounter Visit Diagnoses Not on filedocumented in this encounter Care Teams Solution Manager Relationship Specialty Start Date End Date Ferny Gentile [address] [place] [address] PCP - General 05/22/22 documented as of this encounter
--- OUTSIDE RECORDS SUMMARY | 2025-04-20 14:57 | XMS_ITS | Encounter Summary ---
Author Organization [employer] ([place], [place], [place], [place], [place]) Address [address] [place] [address] Care Team Providers Care Screen Printing Equipment Setter Name Role Phone Ferny Gentile Primary Care Provider [phone] Encounter Details Date Type Department Care Team (Late st Contact Info) Description 12/15/2018 Transcribed Document [facility] Family Medicine [facility] [place] [address] ProviderArt MD [address] [place] [address] Social History Tobacco Use Types Packs/Day [...] Historical ProviderMD - 12/15/2018 2:00 AM CDT Pipe Coverer Helper Details Entered On: 12/15/2018 1:35 EDT Performed [...] on filedocumented in this encounter Care Teams Screen Printing Equipment Setter Relationship Specialty Start Date End Date Ferny Gentile [address] [place] [address] PCP - General 05/22/22 documented as of this encounter
--- OUTSIDE RECORDS SUMMARY | 2025-04-20 14:57 | XMS_ITS | Encounter Summary ---
Author Organization [employer] ([place], [place], [place], [place], [place]) Address [address] [place] [address] Care Team Providers Care Shipping Receiving Clerk Name Role Phone Sakina Gentilet Primary Care Provider Encounter Details Date Type Department Care Team (Late st Contact Info) Description 12/14/2018 Transcribed Document [facility] Family Medicine [facility] [place] [address] ProviderArt MD [address] [place] [address] Social History Tobacco Use Types Packs/Day [...] EDT Performed On: 12/14/2018 14:52 EDT by NICOHLE ARIZMENDI, Care Management-Public Health Veterinarian Final Discharge Planning Discharge Arrangements : Patient Post-Acute Information Patient Name: UZAIR MADERA Gender: Female : 44 Age: 78 Years No Post-Acute Placement(s) Listed No Post-Acute Service(s) Listed No Curaspan Referral(s) Listed Discharge To Care Management : Home Health Services (Related/SOC within 3 days)-06 NICHOLE ARIZMENDI, Care Management-Public Health Veterinarian - 12/14/2018 14:52 EDT Final Narrative Note Final Narrative Note : [facility], PT HAS HER OWN MACHINE TO CHEDK HER INR. SHE IS FOLLOWED BY CARDIOLOGY NICHOLE QUINTERO, Care Management-Public Health Veterinarian - 12/14/2018 14:52 EDT documented in this encounter Plan of Treatment Not on file documented as of this encounter Visit Diagnoses Not on filedocumented in this encounter Care Teams Shipping Receiving Clerk Relationship Specialty Start Date End Date Ferny Gentile [address] [place] [phone] PCP - General 05/22/22 documented as of this encounter
--- OUTSIDE RECORDS SUMMARY | 2025-04-20 14:57 | XMS_ITS | Encounter Summary ---
Author Organization [facility] ([place], [place], [place], [place], [place]) Address [address] [place] [address] Care Team Providers Care Clipper Automatic Name Role Phone Douglas Gentileght Primary Care Provider [phone] Encounter Details Date Type Department Care Team (Late st Contact Info) Description 12/14/2018 Transcribed Document [facility] [place] [facility] [place] [address] ProviderArt MD [address] [place] [address] Social History Tobacco Use Types Packs/Day [...] 12/14/2018 14:52 EDT by NICHOLE ARIZMENDI Care Management-Assistant Food Service Manager Initial Assessment I Previously Documented Living Environment : No qualifying data available. Living Situation : Home Patient Lives With : Alone Emergency Contact #1 : Jesi Emergency Contact #1 Emergency Contact #1 Relationship : daughter Emergency Contact #2 : - Emergency Contact #2 Phone Number : - Emergency Contact #2 Relationship : - NICHOLE ARIZMENDI Care Management-Assistant Food Service Manager - 12/14/2018 14:52 EDT Initial Assessment II Sensory and Motor Deficits : Other: RADHA Current Home Treatments and Equipment : Bedside commode, NICHOLE Martinez, Care Management-Assistant Food Service Manager - 12/14/2018 14:52 EDT Discharge Needs I Anticipated Discharge Date : 12/15/2018 EDT Anticipated Discharge To, CM : Home with home health Current Home Treatment/Equipment : Current Home Treatment/Equipment No qualifying data available. NICHOLE ARIZMENDI Care Management-Assistant Food Service Manager - 12/14/2018 14:52 EDT Discharge Needs II Professional Skilled Services : Professional Skilled Services No qualifying data available. Services and Community Resources : Home Health Discharge Options Discussed with Patient : Home Health NICHOLE ARIZMENDI Care Management-Assistant Food Service Manager - 12/14/2018 14:52 EDT documented in this encounter Plan of Treatment Not on file documented as of this encounter Visit Diagnoses Not on filedocumented in this encounter Care Teams Clipper Automatic Relationship Specialty Start Date End Date Ferny Gentile [address] [place] [address] PCP - General 05/22/22 documented as of this encounter
--- OUTSIDE RECORDS SUMMARY | 2025-04-20 14:57 | XMS_ITS | Encounter Summary ---
Author Organization [employer] ([place], [place], [place], [place], [place]) Address [address] [place] [address] Care Team Providers Care Cotton Expert Name Role Phone Ferny Gentile Primary Care Provider [phone] Encounter Details Date Type Department Care Team (Late st Contact Info) Description 12/14/2018 Transcribed Document [facility] Family Medicine [facility] [place] [address] ProviderArt MD [address] [place] [address] Social History Tobacco Use Types Packs/Day [...] LOKI BLANTON OTR/Buck - 12/14/2018 11:16 EDT Mcc Goals, OT Other LTG Grid Goal #1 [...] 12/14/2018 11:16 EDT Electronically signed by Marilou [facility] Conversion Tong Carrier Cerner at 08/18/2022 11:12 AM CDT documented in this encounter Plan of Treatment Not on file documented as of this encounter Visit Diagnoses Not on filedocumented in this encounter Care Teams Cotton Expert Relationship Specialty Start Date End Date Ferny Gentile [address] [place] [address] PCP - General 05/22/22 documented as of this encounter
[2025-04-20 15:50] LABS: Hematocrit 39.4 % (37.0-47.0); Hemoglobin 13.1 g/dL (12.2-16.2); Immature Granulocytes % 1.1 %; Mean Corpuscular HGB Conc 33.2 g/dL (31.8-35.4); Mean Corpuscular Hemoglobin 31.1 pg (27.0-31.2); Mean Corpuscular Volume 93.6 fl (81-99); Nucleated Red Blood Cells % 0 %; Platelet Count 231 K/mm3 (142-424); Red Blood Count 4.21 M/mm3 (4.20-5.40); Red Cell Distribution Width-SD 46.4 fL; White Blood Count 5.5 K/mm3 (4.8-10.8)
[2025-04-20 16:11] LABS: INR 1.87 (0.9-1.1); Prothrombin Time 19.8 seconds (10.1-12.5)
[2025-04-20 16:20] LABS: Alanine Aminotransferase 19 U/L (12-78); Albumin Level 4.4 g/dl (3.5-5.0); Albumin/Globulin Ratio 1.8 (1.1-1.8); Alkaline Phosphatase 86 U/L (38-126); Anion Gap 10.5 mEq/L (5-15); Aspartate Amino Transferase 28 U/L (14-36); Bilirubin,Total 0.7 mg/dl (0.2-1.3); Blood Urea Nitrogen 23 mg/dl (7-17); Calcium 9.4 mg/dl (8.4-10.2); Carbon Dioxide 26 mmol/L (22.0-30.0); Chloride 104 mmol/L (98-107); Creatinine,Serum 1.20 mg/dl (0.52-1.04); Estimated Glomerular Filt Rate 43 ml/min (>60); GFR (African American) 52 ML/MIN (>60); Globulin 2.5 g/dL (1.3-3.2); Glucose 99 mg/dl (74-100); Potassium 4.5 mmoL/L (3.5-5.1); Sodium 136 mmol/L (136-145); Total Protein,Serum 6.9 g/dl (6.3-8.2)
[2025-04-20 16:26] LABS: C-Reactive Protein 1.2 mg/L (0-4)
== END 2025-04-20 23:59 | disposition home or self-care (01) ==
LOC: LAB 14:50
PROVIDERS: PCP Internal Medicine; Visit Provider Internal Medicine
DX: I48.0 Paroxysmal 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 (principal); M05.79 Rheumatoid arthritis with rheumatoid factor of multiple sites without organ or systems involvement; Z79.899 Other long term (current) drug therapy
CPT/HCPCS: 36415; 80053; 85025; 85610; 85651; 86140

== ENCOUNTER 2025-04-29 09:26 | Outpatient (CLI) | payer MEDICARE, OTHER, SELFPAY ==
--- OUTSIDE RECORDS SUMMARY | 2019-07-05 13:42 | XMS_ITS | Encounter Summary ---
Author Organization [facility] Address [address] [place] [address] Care Team Providers Care Hot Stick Man Name Role Phone Ferny Gentile MD Primary Care Provider [phone] Encounter Details Date Type Department Care Team (Late st Contact Info) Description 07/05/2019 1:42 PM [facility] Hospital Encounter [facility] PULMONARY & CRITICAL CARE MEDICINE [address] [place] [address] Social History Tobacco Use Types Packs/Day [...] 08/2022 Potentially Unsafe Housing Conditions Not on reul e 08/05/2022 Disabilities Answer Date Recorded Difficulty Concentrating, Remembering or Making Decisions no 08/04/2022 Difficulty Managing Errands Independently no 08/04/2022 Comments No Sex and Gender Information Value Date Recorded Sex Assigned at Female 09/13/2024 10:08 PM EDT Legal Sex Female 10:33 AM EDT Gender Identity Not on file Sexual Orientation Not on file documented as of this encounter Plan of Treatment Upcoming Encounters Date Type Department Care Team (Late st Contact Info) Description 06/30/2025 11:30 AM EST Office Visit [facility] RHEUMATOLOGY [address] [facility] [address] [place] [address] David Bernstein MD 330 [facility] [address] [place] [address] 10/03/2025 2:45 PM EDT Office Visit [facility] CARDIOLOGY [address] [facility] [address] [place] [address] Yon Govea MD [address] [facility] [address] [place] [address] 06/14/2026 1:30 PM EST Office Visit [facility] CARDIOLOGY [address] [place] [address] [place] [address] Wojciech Flores MD [address] [place], [place] [id number] Pending Results Name Type Priority Associated Diagnoses [...] documented as of this encounter Care Teams Hot Stick Man Relationship Specialty Start Date End Date Ferny Gentile MD [address] [facility] [address] [place] [address] PCP - General 06/11/15 documented as of this encounter
[2025-04-29 20:17] LABS: Coronavirus 19, PCR Not Detected (NotDetected); Influenza A, PCR Not Detected (NotDetected); Influenza B, PCR Not Detected (NotDetected)
--- OUTSIDE RECORDS SUMMARY | 2025-05-01 09:37 | XMS_ITS | Encounter Summary ---
Author Organization [facility] Address [address] [place] [address] Care Team Providers Care Ditching Machine Operating Engineer Name Role Phone Ferny Gentile MD Primary Care Provider [phone] Encounter Details Date Type Department Care Team (Late st Contact Info) Description 02/07/2025 Telephone [facility] ANTICO[facility]ULATION CL[facility]IC [address] [place] [address] [place] [address] Dayron Diallo, Tube And Manifold Builder Social History Tobacco Use Types Packs/Day Years [...] Miscellaneous Notes * Telephone Encounter - Dayron Diallo, Tube And Manifold Builder - 02/07/2025 10:[address] Quiroz office to confirm procedure (Colonoscopy 03/02) and warfarin hold duration [phone] ext. 4 for Marine Consultant. LVM for Marine Consultant to call anticoagulation clinic back.Clinic phone number provided. Dayron Diallo [facility] 02/07/2025 10:02 EDT documented in this encounter Plan of Treatment Upcoming Encounters Date Type Department Care Team (Late st Contact Info) Description 06/30/2025 11:30 AM EST Office Visit [facility] RHEUMATOLOGY [address] [address] David Bernstein MD 330 [facility] 100 [place] [address] 10/03/2025 2:45 PM EDT Office Visit [facility] CARDIOLOGY 3000 [facility] [address] [place] [address] Yon Govea MD [address] [place] [address] 06/14/2026 1:30 PM EST Office Visit [facility] CARDIOLOGY [address] [place] [address] [place] [address] Wojciech Flores MD [address] [place], [place] [address] documented as of this encounter Visit Diagnoses Not on filedocumented in this encounter Care Teams Ditching Machine Operating Engineer Relationship Specialty Start Date End Date Ferny Gentile MD 1210 [facility] [address] [place] [address] PCP - General 06/11/15 documented as of this encounter
--- OUTSIDE RECORDS SUMMARY | 2025-05-01 09:37 | XMS_ITS | Encounter Summary ---
Author Organization [facility] Address [address] [place] [address] Care Team Providers Care Power Hair Clipper Name Role Phone Ferny Gentile MD Primary Care Provider [phone] Encounter Details Date Type Department Care Team (Latest Contact Info) Description 11/06/2021 Anticoagulation Visit [facility] ANTICOAGULATION CLINIC [address] [place] [address] 606 [place] [address] Juan Ramon King, Batting Machine Operator Insulation Paroxysmal 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 (Primary Dx) Social History [...] Description 06/30/2025 11:30 AM EST Office Visit [facility] RHEUMATOLOGY [address] [address] David Bernstein MD 330 [facility] 100 [place] [address] 10/03/2025 2:45 PM EDT Office Visit [facility] CARDIOLOGY 3000 [facility] [address] [place] [address] Yon Govea MD 1720 [facility] [address] [place], [place] [address] 06/14/2026 1:30 PM EST Office Visit [facility] CARDIOLOGY [address] [place] [address] [address] Wojciech Flores MD 1720 [facility] [address] [place], [place] [address] documented as of this encounter Visit Diagnoses Diagnosis Paroxysmal 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- Primary Atrial fibrillation documented in this encounter Care Teams Power Hair Clipper Relationship Specialty Start Date End Date Ferny Gentile MD 1210 [facility] [address] [facility] [place] [place] [address] PCP - General 06/11/15 documented as of this encounter
--- OUTSIDE RECORDS SUMMARY | 2025-05-01 09:37 | XMS_ITS | Encounter Summary ---
Author Organization [facility] Address [address] [place] [address] Care Team Providers Care Maintenance Mechanic Supervisor Name Role Phone Ferny Gentile MD Primary Care Provider [phone] Encounter Details Date Type Department Care Team (Late Contact Info) Description 02/04/2022 Anticoagulation Visit [facility] ANTICO[facility]ULATION CLINIC 1720 [facility] [address] [place] [phone] Hernan Mckenna, PharmD [address] [place] [address] [...] Description 06/30/2025 11:30 AM EST Office Visit [facility] R[facility] [address] [address] David Bernstein MD [address] [place], [place] [address] 10/03/2025 2:45 PM EDT Office Visit [facility] CARDIOLOGY 3000 [facility] [address] [place] [address] Yon Govea MD [address] [place], [place] [address] 06/14/2026 1:30 PM EST Office Visit [facility] CARDIOLOGY [address] [place] [address] [place] [address] Wojciech Flores MD [address] [facility] [address] [place] [address] documented as of this encounter Procedures Procedure Name Priority Date/Time Associated Diagnosis Comments PROTIME-INR Routine 02/04/2022 documented in this encounter Results * Protime-INR (02/04/2022) INR 1.90 Blood Historical Provider LAB BLOOD ORDERABLES Agata l Result documented in this encounter Visit Diagnoses Diagnosis Paroxysmal 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- Primary Atrial fibrillation documented in this encounter Care Teams Maintenance Mechanic Supervisor Relationship Specialty Start Date End Date Ferny Gentile MD 1210 [facility] [address] [place] [address] PCP - General 06/11/15 documented as of this encounter
--- OUTSIDE RECORDS SUMMARY | 2025-05-01 09:38 | XMS_ITS | Encounter Summary ---
Author Organization [facility] Address [address] [place] [address] Care Team Providers Care Central Supply Tech Name Role Phone Ferny Gentile MD Primary Care Provider [phone] Encounter Details Date Type Department Care Team (Late st Contact Info) Description 11/10/2023 Anticoagulation Visit [facility] ANTICOAGULATION CLINIC [address] [place] [address] 606 [place] [address] Karen Mace, Chainstitch Seat Joiner Social History Tobacco Use Types Packs/Day Years [...] EST Office Visit [facility] RHEUMATOLOGY 330 [facility] 100 [place] [address] David Bernstein MD 330 [facility] 100 [place] [address] 10/03/2025 2:45 PM EDT Office Visit [facility] CARDIOLOGY 3000 [facility] [address] [place] [address] Yon Govea MD 1720 [facility] 400 [place] [address] 06/14/2026 1:30 PM EST Office Visit [facility] CARDIOLOGY [address] [place] [address] [address] [place] [address] Wojciech Flores MD [address] [facility] 400 [place], [place] [phone] documented as of this encounter Procedures Procedure Name Priority Date/Time Associated Diagnosis Comments PROTIME-INR Routine 11/06/2023 documented in this encounter Results * Protime-INR (11/06/2023) INR 2.70 Blood 11/06/2023 Historical Provider LAB BLOOD ORDERABLES Edit ed Result - Final documented in this encounter Visit Diagnoses Not on filedocumented in this encounter Care Teams Central Supply Tech Relationship Specialty Start Date End Date Ferny Gentile MD 1210 [facility] [address] [place] [address] PCP - General 06/11/15 documented as of this encounter
--- OUTSIDE RECORDS SUMMARY | 2025-05-01 09:38 | XMS_ITS | Encounter Summary ---
Author Organization [facility] Address [address] [place] [address] Care Team Providers Care Micro Paleontologist Name Role Phone Feryn Gentile MD Primary Care Provider [phone] Encounter Details Date Type Department Care Team (Late st Contact Info) Description 11/15/2024 Results Follow-Up [facility] RHEUMATOLOGY 330 [facility] 100 [place] [address] David Bernstein MD 330 [place] [address] Social History Tobacco Use Types Packs/Day Years [...] 11:30 AM EST Office Visit [facility] RHEUMATOLOGY 330 [facility] 100 [place] [address] David Bernstein MD 330 [facility] 100 [place] [address] 10/03/2025 2:45 PM EDT Office Visit [facility] CARDIOLOGY 3000 [facility] [address] [place] [address] Yon Govea MD 1720 [facility] 400 [place], [place] [id number] 06/14/2026 1:30 PM EST Office Visit [facility] CARDIOLOGY [address] [place] [address] [place] [address] Wojciech Flores MD [address] [place] [address] documented as of this encounter Visit Diagnoses Not on filedocumented in this encounter Care Teams Micro Paleontologist Relationship Specialty Start Date End Date Ferny Gentile MD 1210 [facility] [address] [place] [address] PCP - General 06/11/15 documented as of this encounter
--- OUTSIDE RECORDS SUMMARY | 2025-05-01 09:38 | XMS_ITS | Clinical Summary ---
Author Organization [facility] [place] Address [address] [place] [address] Phone Care Team Providers Care Executive Chef Name Role Phone MARIAMA MORALEZ, FATOUMATA Blanco Primary Care Provider [phone] Camila MORALEZ, Alanna Bowen Unavailable [phone] Reason for Referral 08/18/2022 Encounter for Post Op Date Recorded Target Due Date Referral Type Referring Prov ider Reason For Referral 08/18/2022 Hernan Gold PA-C referr al to physician Last Documented On 3 1:09PM ; [facility] [place] Reason for Visit and Chief Complaint The Chief Complaint is: POV Left TKA Problems Includes: Problems addressed during this encounter and other active Problems All Visits Onset Date Date of Diagnosis Resolved Date Provider Condition Status Joint Pain Wrist Right 04/17/2022 04/17/2022 Ceci Santos APRN Active Last Documented On 5 1:41AM ; [facility] [place] Joint Pain Right Thumb 04/17/2022 04/17/2022 Ceci Santos APRN Active Last Documented On 5 1:41AM ; [facility] [place] Midback Pain 10/17/2020 10/17/2020 Brandon Wilks MD Active Last Documented On 5 1:40AM ; [facility] [place] Joint Pain Left Knee 02/16/2020 02/16/2020 Marianela Cuevas MD Active Last Documented On 5 1:40AM ; [facility] [place] Joint Pain Right Knee 10/29/2016 10/29/2016 Oneyda Jensen MD Active Last Documented On 5 1:38AM ; [facility] [place] Pain in Lumbar Spine 03/13/2016 03/13/2016 James Jensen MD Active Last Documented On 5 1:38AM ; [facility] [place] Joint Pain Hip Left 03/13/2016 03/13/2016 Alanna Jensen MD Active Last Documented On 5 1:38AM ; [facility] [place] Joint Pain Knee 03/10/2012 03/10/2012 Alanna lopes MD Active Last Documented On 5 1:37AM ; [facility] [place] Plan of Treatment Fall Risk [...] Last Documented On 08/18/2022 1:50PM ; [facility] [place] overall the patient is very pleased with her knee surgery, has some residual swelling of the lower leg being treated for lymphedema. Will plan for follow-up one year postop - Last Documented On 08/18/2022 1:50PM ; [facility] [place] Instructions to patient Lose weight Last Documented On 3 1:09PM ; [facility] [place] Assessments Includes: Assessments from this encounter Findings 3 months status post left TKA - Last Documented On 08/18/2022 1:50PM ; [facility] [place] Instructions Includes: Instructions from this encounter Instructions to patient Lose weight Last Documented On 3 1:09PM ; [facility] [place] Medical Equipment - Implanted Devices Includes: Current Devices No Medical Equipment Recorded Medications Includes: Medications discussed during this encounter and other current Medications Current Medications (continue as prescribed) Colestipol HCl 5 GM Oral Packet 04/14/2024 Provider: Diagnosis: Last Documented On 4 11:25AM By Carla [facility] [place] Protonix 20 MG Oral Tablet Delayed Release 06/16/2022 Provider: Diagnosis: Last Documented On 3 4:00PM By Elif Chicas ; [facility] [place] Flecainide Acetate 100 MG Oral Tablet 06/16/2022 Pro vider: Diagnosis: Last Documented On 3 4:01PM By Elif Chicas ; [facility] Metoprolol Succinate ER 25 M G Oral Tablet Extended Release 24 Hour 06/12/2022 Provider: Diagnosis: Last Documented On 3 4:00PM By Elif Chicas ; [facility] predniSONE 10 MG Oral Tablet 05/02/2022 Provider: FATOUMATA LESLIE MD Diagnosis: Last Documented On 3 4:00PM By Elif Chicas ; [facility] Lagevrio 200 MG Oral Capsule 04/22/2022 Provider: FATOUMATA LESLIE MD Diagnosis: Last Documented On 3 4:00PM By Elif Chicas ; [facility] Lagevrio 200 MG Oral Capsule 04/22/2022 Provider: FATOUMATA LESLIE MD Diagnosis: Last Documented On 3 4:00PM By Elif Chicas ; [facility] [place] Mupirocin 2% External Ointment 04/16/2022 Provider: Eliseo Cuevas MD Diagnosis: three times a day Apply to n ostrils 3 time a day 5 days prior to surgery. Last Documented On 2 2:50PM By Gilda Kamara ; [facility] [place] MegaRed [place]-3 Krill Oil 350 MG Oral Capsule 10/26/19 21 Provider: Diagnosis: Last Documented On 1 1:15PM By Betzaida Donald ; [facility] Sudafed 30 MG Oral Tablet 10/25/2020 Provider: Diagnosis: Last Documented On 1 1:15PM By Betzaida Donald ; [facility] [place] Mucinex Allergy 180 MG Oral Tablet 10/25/2020 Provid er: Diagnosis: Last Documented On 1 1:14PM By Betzaida Donald ; [facility] [place] Warfarin Sodium 7.5 MG Oral Tablet 10/17/2020 Provid er: Diagnosis: Last Documented On 1 2:43PM By Greer Kingston ; [facility] [place] Ezetimibe 10 MG Oral Tablet 09/11/2020 Provider: FATOUMATA LESLIE MD Diagnosis: Last Documented On 1 1:13PM By Betzaida Donald ; [facility] [place] Digoxin 125 MCG Oral Tablet 07/21/2020 Provider: Diagnosis: Last Documented On 1 2:44PM By Greer Kingston ; [facility] [place] CoQ-10 10 MG Oral Capsule 10/20/2019 Provider: Diagnosis: Last Documented On 0 4:01PM By Greer Kingston ; [facility] [place] D3-1000 25 MCG (1000 UT) Oral Capsule 10/20/2019 Pro vider: Diagnosis: Last Documented On 0 4:00PM By Greer Kingston ; [facility] [place] [facility] Omeprazole 20 MG Oral Ta blet Delayed Release Disintegrating 10/20/2019 Provider: Diagnosis: Last Documented On 0 3:59PM By Greer Kingston ; [facility] [place] [facility] Probiotic Maximum Strength Oral Capsule 10/20/2019 Provider: Diagnosis: Last Documented On 0 3:58PM By Greer Kingston ; [facility] [place] Citalopram Hydrobromide 10 MG Oral Tablet 10/20/2019 Provider: Diagnosis: Last Documented On 0 3:56PM By Greer Kingston ; [facility] [place] Flecainide Acetate 100 MG Oral Tablet 10/20/2019 Pro vider: Diagnosis: Last Documented On 0 3:55PM By Greer Kingston ; [facility] [place] Past Medications on file oxyCODONE HCl 5 MG Oral Tablet 05/29/2022 - 06/03/2022 Provider: Eliseo ceja MD Diagnosis: 1-2 po q 4-6h Last Documented On 3 12:32PM By Hima Cuevas ; [facility] [place] traMADol HCl 50 MG Oral Tablet 05/29/2022 - 06/03/2022 Provider: Eliseo ceja MD Diagnosis: 1-2 po q 4-6h Last Documented On 3 12:32PM By Hima Cuevas ; [facility] Lovenox 40 MG/0.4ML Injection Solution Prefilled Syringe 05/26/2022 - 05/30/2022 Provider: Eliseo ceja MD Diagnosis: 1 sub q injection 1 time day Last Documented On 3 8:35AM By Hima Cuevas ; [facility] Cefadroxil 500 MG Oral Capsule 05/21/2022 - 05/24/2022 Provider: Eliseo ceja MD Diagnosis: twice a day Last Documented On 3 12:08PM By Hima Cuevas ; [facility] Colace 100 MG Oral Capsule 05/21/2022 - 08/19/2022 Provider: Eliseo ceja MD Diagnosis: 1-2 tabs daily Last Documented On 3 12:08PM By Hima Cuevas ; [facility] traMADol HCl 50 MG Oral Tablet 05/21/2022 - 05/26/2022 Provider: Eliseo ceja MD Diagnosis: 1-2 po q 4-6h Last Documented On 3 12:08PM By Hima Cuevas ; [facility] Acetaminophen 500 MG Oral Tablet 05/21/2022 - 06/20/2022 Provider: Eliseo Cuevas MD Diagnosis: 2 three times a day Last Documented On 3 12:08PM By Hima Cuevas ; [facility] oxyCODONE HCl 5 MG Oral Tablet 05/21/2022 - 05/26/2022 Provider: Eliseo ceja MD Diagnosis: 1-2 po q 4-6h Last Documented On 3 12:08PM By Hima Cuevas ; [facility] Ondansetron HCl 4 MG Oral Tablet 05/21/2022 - 05/26/2022 Provider: Eliseo Cuevas MD Diagnosis: [id number] Last Documented On 3 12:08PM By Hima Cuevas ; [facility] Meloxicam 15 MG Oral Tablet 05/21/2022 - 06/20/2022 Provider: Eliseo ceja MD Diagnosis: once a day Last Documented On 3 12:08PM By Hima Cuevas ; [facility] HYDROcodone-Acetaminophen 7. 5-325 MG Oral Tablet 10/25/2020 - 11/14/2020 Provider: Brandon Wilks MD Diagnosis: twice a day Last Documented On 1 12:08PM By Dr. Wilks ; [facility] [place] 5-325MG Oral Tablet 12/23/2018 - 01/22/2019 Provider: Eliseo ceja MD Diagnosis: 1-2 po q6h prn pain Last Documented On 9 3:09PM By Reanna Gutierrez ; [facility] Acetaminophen 500MG Oral Tablet 12/08/2018 - 01/07/2019 Provider: Eliseo Cuevas MD Diagnosis: 2 three times a day FOR BACON RGERY DO NOT FILL UNTIL 12/14/18 Last Documented On 9 4:10PM By Reanna Gutierrez ; [facility] traMADol HCl 50MG Oral Tablet 12/08/2018 - 12/13/2018 Provider: Eliseo ceja MD Diagnosis: 1-2 po q6h prn pain FOR BACON RGERY DO NOT FILL UNTIL 12/14/18 Last Documented On 9 4:06PM By Reanna Gutierrez ; [facility] Neurontin 300MG Oral Capsule 12/08/2018 - 03/08/2019 Provider: Eliseo ceja MD Diagnosis: 1 every bedtime FOR SURGER Y DO NOT FILL UNTIL 12/14/18 Last Documented On 9 4:05PM By Reanna Gutierrez ; [facility] Dilaudid 2MG Oral Tablet 12/08/2018 [...] On 9 4:10PM By Reanna Gutierrez ; [facility] Mupirocin 2% External Ointment 11/09/2018 - 11/14/2018 Provider: Eliseo ceja MD Diagnosis: Apply to nostrils 3 time a d ay 5 days prior to surgery. Last Documented On 9 10:40AM By Gilda Kamara ; [facility] [place] 5-325MG Oral Tablet 12/24/2017 - 12/31/2017 Prov ider: Brandon Wilks MD Diagnosis: 1-2 po q 4-6h PRN Last Documented On 8 5:31PM By Dr. Wilks ; [facility] [place] 7.5-325 MG OR TABS 12/24/2017 - 01/03/2018 Provi gaby: Brandon Wilks MD Diagnosis: Last Documented On 8 11:35AM By Marcelle Croft ; [facility] Voltaren Gel 1% External 10/14/2017 - 12/13/2017 Provi gaby: Alanna Jensen MD Diagnosis: use as directed Last Documented On 8 10:09AM By Sayra Evans ; [facility] Lovenox 40MG/0.4ML Subcutaneous Solution 05/06/2017 - 05/26/2017 Provider: Alanna castaneda MD Diagnosis: use as directed/1 INJECTION PER DAY FOR 5 DAYS PRIOR TO PROCEDER & 1 INJECTION PER DAY FOR 5 DAYS AFTER PROCERDER/ Last Documented On 8 4:29PM By Sayra Evans ; [facility] [place] 5-325 MG Tablet 10/29/2016 - 11/05/2016 Provider : Alanna Jensen MD Diagnosis: 1-2 po q 4-6h PRN Last Documented On 7 11:55AM By Camryn Paez ; [facility] Medrol 4 MG Tablet Therapy Pack 02/14/2016 - 02/20/2016 Provider: Alanna chin MD Diagnosis: use as directed by pharmacy Last Documented On 6 3:16PM By Heather Langley ; [facility] [place] 5-325 MG Tablet 12/03/2015 - 12/18/2015 Provider : Alanna Jensen MD Diagnosis: 1-2 po q 4-6h Last Documented On 6 1:26PM By Heather Langley ; [facility] [place] 7.5-325 MG Tablet 11/16/2015 - 12/16/2015 Provid er: Alanna Jensen MD Diagnosis: 1 every 4 - 6 hours PO PRN Last Documented On 6 2:09PM By Lani Marquez ; [facility] Voltaren 1% TD GEL 01/31/2013 - 03/02/2013 Provider: Alanna Jensen MD Diagnosis: DEGENERATIVE MIKEY NT DISEASE KNEE apply 4 grams to affected ar ea 4 times a day//ks Last Documented On 3 2:16PM By Ann Marie Sutherland ; [facility] Lortab 10-500 MG OR TABS 09/14/2012 - 09/21/2012 Provi gaby: Alanna Jensen MD Diagnosis: [id number] [facility] jsb/df Last Documented On 3 8:56AM By Jose F Gutierrez ; [facility] Lortab 10-500 MG OR TABS 08/06/2012 - 08/13/2012 Provi gaby: Alanna Jensen MD Diagnosis: [id number] [employer] jsb/df Last Documented On 3 1:59PM By Jose F Gutierrez ; [facility] Lortab 10-500 MG OR TABS 07/09/2012 - 07/16/2012 Provi gaby: Alanna Jensen MD Diagnosis: [id number] [facility] jsb Last Documented On 3 12:36PM By Jose F Gutierrez ; [facility] Lortab 10-500 MG OR TABS 07/01/2012 - 07/08/2012 Provi gaby: Alanna Jensen MD Diagnosis: [id number] [facility] df Last Documented On 3 1:53PM By Jose F Gutierrez ; [facility] Xarelto 10 MG OR TABS 06/14/2012 - 07/05/2012 Provider : Alanna Jensen MD Diagnosis: sx on 06-15-12 Last Documented On 3 1:31PM By Danielle Dobson ; [facility] Lortab 10-500 MG OR TABS 06/14/2012 - 06/21/2012 Provi gaby: Alanna Jensen MD Diagnosis: sx on 06-15-12 Last Documented On 3 1:31PM By Danielle Dobson ; [facility] Medications Administered Includes: Administered Medications from this encounter No Administered Medications Recorded Vital Signs Includes: Vital Signs from this encounter Vital Name 08/18/2022 01:09P Height (in) 65 Weight (lb) 169 Body Mass Index 28.1 Body Surface Area 1.8 Note: dp Last Documented: On 08/18/2022 1:09PM ; [facility] Results Includes: Results discussed [...] 04/14/2024 Last Documented On 3 1:09PM ; [facility] Not a current smoker. 04/14/2024 Last Documented On 3 1:09PM ; [facility] Tobacco non-user 04/14/2024 Last Documented On 3 1:09PM ; [facility] Alcohol use 10/25/2020 Last Documented On 3 1:09PM ; [facility] Not using drugs 10/25/2020 Last Documented On 3 1:09PM ; [facility] Recent change in diet 10/25/2020 Last Documented On 3 1:09PM ; [facility] Non-smoker 10/17/2020 Last Documented On 3 1:09PM ; [facility] No caffeine use 10/17/2020 Last Documented On 3 1:09PM ; [facility] [place] Not a current smoker. 10/17/2020 Last Documented On 3 1:09PM ; [facility] [place] No tobacco use 10/31/2019 Last Documented On 3 1:09PM ; [facility] [place] Not a current smoker 10/31/2019 Last Documented On 3 1:09PM ; [facility] [place] Not exercising regularly 10/31/2019 Last Documented On 3 1:09PM ; [facility] [place] Smoking status : Never smoker 10/31/2019 Last Documented On 3 1:09PM ; [facility] [place] Sex - Female 09/12/2024 Last Documented On 5 9:46AM ; [facility] [place] Procedures and Surgical History Includes: Procedures from this encounter Procedures Code Diagnosis Performing Provider Service L ocation Service Date use of tobacco assessment performed 1000F Last Documented On 3 1:09PM ; [facility] [place] patient screened for future fall risk: documentation of any fall with injury in past year 1100F Last Documented On 3 1:09PM ; [facility] [place] follow-up visit in one month Last Documented On 3 1:09PM ; [facility] [place] referral to physician Last Documented On 3 1:09PM ; [facility] [place] an X-ray was performed 77706 Last Documented On 3 1:09PM ; [facility] [place] Surgical History Last Updated History of back surgery 11/2019-Kypho T1 2 10/17/2020 Last Documented On 3 1:09PM ; [facility] [place] History of heart surgery ablation 2017 0 10/31/2019 Last Documented On 3 1:09PM ; [facility] [place] History of total hip replacement left hi p 2019 10/31/2019 Last Documented On 3 1:09PM ; [facility] [place] History of total knee arthroplasty right knee 201210/31/2019 Last Documented On 3 1:09PM ; [facility] [place] History of hysterectomy 10/16/2014 Last Documented On 3 1:09PM ; [facility] [place] Medical History Includes: Medical History addressed during this encounter Description Last Updated Recent immunization for flu 02/01/2022 1 06/15/2023 Last Documented On 3 1:09PM ; [facility] [place] Recent immunization for pneumococcal pne umonia 2014 04/14/2024 Last Documented On 3 1:09PM ; [facility] [place] History of Irregular Heartbeat A-fib; ep isode after TKA- cadiovert needed 06/16/2022 Last Documented On 3 1:09PM ; [facility] [place] blood transfusions 10/25/2020 Last Documented On 3 1:09PM ; [facility] [place] Arthritis 10/25/2020 Last Documented On 3 1:09PM ; [facility] [place] Heartburn / Acid Reflux 10/25/2020 Last Documented On 3 1:09PM ; [facility] [place] History of Blood Clots 10/25/2020 Last Documented On 3 1:09PM ; [facility] [place] History of Blood Transfusion 10/25/2020 Last Documented On 3 1:09PM ; [facility] [place] History of Cancer 10/25/2020 Last Documented On 3 1:09PM ; [facility] [place] History of Fractures 10/25/2020 Last Documented On 3 1:09PM ; [facility] [place] History of heart disease 10/25/2020 Last Documented On 3 1:09PM ; [facility] [place] Hypertension 10/25/2020 Last Documented On 3 1:09PM ; [facility] [place] Irregular Heartbeat 10/25/2020 Last Documented On 3 1:09PM ; [facility] [place] Past Surgical History: wrist repair ~hand sx ~gallstone sx 2011 ~mastectomy and reconstruction ~colonoscopy 2018 10/25/2020 Last Documented On 3 1:09PM ; [facility] [place] Previous Fractures 10/25/2020 Last Documented On 3 1:09PM ; [facility] [place] Sleep Apnea 10/25/2020 Last Documented On 3 1:09PM ; [facility] [place] Use of CPAP 10/25/2020 Last Documented On 3 1:09PM ; [facility] [place] Back surgery 12/15/2017 L4-5 Posterior Decompression and Fusion @ [facility] ~11/07/2019 T12 Kyphyoplasty 10/25/2020 Last Documented On 3 1:09PM ; [facility] [place] Heart surgery pacemaker 12/2019 ~Afib ab lation 10/25/2020 Last Documented On 3 1:09PM ; [facility] [place] History of Gallbladder 10/25/2020 Last Documented On 3 1:09PM ; [facility] [place] Hysterectomy 10/25/2020 Last Documented On 3 1:09PM ; [facility] [place] Total hip replacement 12/2018-Left hip 0 10/17/2020 Last Documented On 3 1:09PM ; [facility] [place] A previous fracture 10/31/2019 Last Documented On 3 1:09PM ; [facility] Gallbladder disease 2018 10/31/2019 Last Documented On 3 1:09PM ; [facility] [place] History of diverticulitis of colon 11/15 Last Documented On 3 1:09PM ; [facility] [place] History of osteoporosis 11/16/2015 Last Documented On 3 1:09PM ; [facility] [place] A history of cancer 10/16/2014 Last Documented On 3 1:09PM ; [facility] [place] Arthritic joint problems 10/16/2014 Last Documented On 3 1:09PM ; [facility] [place] Family History Includes: Family History addressed during this encounter Description Last Updated Family history of cancer mother ~father 11/16/2015 Last Documented On 3 1:09PM ; [facility] [place] Family history of diabetes mellitus moth er 11/16/2015 Last Documented On 3 1:09PM ; [facility] [place] Family history of heart disease mother ~ father 11/16/2015 Last Documented On 3 1:09PM ; [facility] [place] Family history of hypertension mother ~f ather 11/16/2015 Last Documented On 3 1:09PM ; [facility] [place] Family history of osteoporosis mother Last Documented On 3 1:09PM ; [facility] [place] Family history of rheumatoid arthritis m other 11/16/2015 Last Documented On 3 1:09PM ; [facility] [place] Family history of thromboembolic disease mother 11/16/2015 Last Documented On 3 1:09PM ; [facility] [place] Maternal history of hypertension 015 Last Documented On 3 1:09PM ; [facility] [place] Maternal history of osteoporosis 015 Last Documented On 3 1:09PM ; [facility] [place] Review of Systems Includes: Review of Systems [...] Status from this encounter Description No anxiety Last Documented On 3 1:09PM ; [facility] [place] Physical Exam Includes: Physical Exam from this encounter Allergies Includes: Active Allergies Substance Type Reaction Onset Date Resolved Date Statu s Sulfa Antibiotics Allergy 06/09/2017 A ctive Last Documented On 4 12:09PM ; [facility] [place] Statins Support Allergy 06/09/2017 Act citlalli Last Documented On 4 12:09PM ; [facility] [place] Percocet Allergy 03/10/2012 Active Last Documented On 4 12:09PM ; [facility] [place] Bactrim Allergy 11/16/2015 Active Last Documented On 4 12:09PM ; [facility] [place] Care Executive Chef Name (Identifier) Role/Relation Location/Telecom Last Documented By FATOUMATA LESLIE MD ([id number]) Primary care physician (occupation) [address] [place] [address], [address], [facility], [address] tel:[phone] Last Documented On 09/12/2024 9:46AM ; [facility] [place] Alanna Jensen MD ([id number]) Assigned practitioner (occupation) tel:[phone] Last Documented On 09/12/2024 9:46AM ; [facility] [place] Encounters Encounter Provider Location (Healthcare Service Location) Date Check-In Time Check-Out Time Diagnosis Encounter Disposition Post Op Hernan Gold PA-C [facility] [place] 2022 1:00PM 1:29PM Payer Includes: Active Insurance Policies Plan Name (Payer ID) Coverage Type Member ID Group # Subscriber (ID) Relationship Effective Dates 1 - Medicare Part B [facility] ([id number]) [id number] Luz Skaggs Self 04/03/2007 - Unknown Last Documented On 9 10:11AM ; [facility] [place] [facility] [id number]) [id number] PLAN F Luz Skaggs Self 05/04/19 12 - Unknown Last Documented On 3 7:45AM ; [facility] [place] Clinical Notes Includes: Clinical Notes from this encounter * Progress note Date Encounter Last Documented by 08/18/2022 Post Op Last documented on 08/18/2022; 1:50 PM, Hernan Gold PA-C; [facility] [place] Active Problems & Conditions - [...] directed 0 days, 0 refills - Ipratropium [place] 0.03% Nasal Solution take as directed 0 days, 0 refills - Lagevrio 200 MG Oral Capsule 5 days, 0 refills - Lagevrio 200 MG Oral Capsule 5 days, 0 refills - MegaRed [place]-3 Krill Oil 350 MG Oral Capsule once [...] refills - Sudafed 30 MG Oral Tablet [id number] 0 days, 0 refills - Warfarin Sodium [...] 12/15/2017 L4-5 Posterior Decompression and Fusion @ [facility] [place] [facility] 11/07/2019 T12 Kyphyoplasty - [...] Team - FATOUMATA LESLIE MD - FOOD PACKER
--- OUTSIDE RECORDS SUMMARY | 2025-05-01 09:38 | XMS_ITS | Encounter Summary ---
Author Organization [facility] Address [address] [place] [address] Care Team Providers Care Customer Service Sales Associate Name Role Phone Ferny Gentile MD Primary Care Provider [phone] Encounter Details Date Type Department Care Team (Late st Contact Info) Description 09/15/2024 Results Follow-Up [facility] [address] [facility] 100 [place] [address] David Bernstein MD [address] [place] [address] Social History Tobacco Use Types Packs/Day Years [...] 06/30/2025 11:30 AM EST Office Visit [facility] [address] [facility] 100 [place] [phone] David Bernstein MD 330 [facility] 100 [place] [address] 10/03/2025 2:45 PM EDT Office Visit [facility] [address] [facility] [address] [place] [address] Yon Govea MD [address] [facility] 400 [place], [place] [id number] 06/14/2026 1:30 PM EST Office Visit [facility] [address] [place] [address] [place] [address] Wojciech Flores MD [address] [place] [address] documented as of this encounter Visit Diagnoses Not on filedocumented in this encounter Care Teams Customer Service Sales Associate Relationship Specialty Start Date End Date Ferny Gentile MD [address] [facility] [address] [place] [address] PCP - General 06/11/15 documented as of this encounter
--- OUTSIDE RECORDS SUMMARY | 2025-05-01 09:38 | XMS_ITS | Encounter Summary ---
Author Organization [facility] Address [address] [place] [address] Care Team Providers Care Chess Instructor Name Role Phone Ferny Gentile MD Primary Care Provider [phone] Encounter Details Date Type Department Care Team (Late st Contact Info) Description 07/15/2024 Results Follow-Up [facility] 330 [facility] 100 [place] [address] David Bernstein MD 330 [place] [address] Social History Tobacco Use Types Packs/Day Years [...] Visit [facility] [address] [facility] 100 [place] [id number] David Bernstein MD 330 [facility] 100 [place] [address] 10/03/2025 2:45 PM EDT Office Visit [facility] [address] [facility] [address] [place] [address] Yon Govea MD [address] [facility] 400 [place], [place] [id number] 06/14/2026 1:30 PM EST Office Visit [facility] [address] [place] [place] [address] [place] [address] Wojciech Flores MD [address] [place] [address] documented as of this encounter Visit Diagnoses Not on filedocumented in this encounter Care Teams Chess Instructor Relationship Specialty Start Date End Date Ferny Gentile MD [address] [facility] [address] [place] [address] PCP - General 06/11/15 documented as of this encounter
--- OUTSIDE RECORDS SUMMARY | 2025-05-01 09:38 | XMS_ITS | Encounter Summary ---
Author Organization [facility] Address [address] [place] [address] Care Team Providers Care Group Fitness Department Head Name Role Phone Ferny Gentile MD Primary Care Provider Encounter Details Date Type Department Care Team (Late st Contact Info) Description 04/24/2025 Results Follow-Up [facility] 330 [facility] 100 [place] [address] David Bernstein MD 330 [place] [address] Social History Tobacco Use Types Packs/Day Years [...] AM EST Office Visit [facility] 330 [facility] 100 [place] [phone] David Bernstein MD 330 [facility] [address] [place] [address] 10/03/2025 2:45 PM EDT Office Visit [facility] C[facility] [address] [facility] [address] [place] [address] Yon Govea MD [address] [facility] [address] [place], [place] [id number] 06/14/2026 1:30 PM EST Office Visit [facility] [address] [place] [address] [address] [place] [address] Wojciech Flores MD [address] [place] [address] documented as of this encounter Visit Diagnoses Not on filedocumented in this encounter Care Teams Group Fitness Department Head Relationship Specialty Start Date End Date Ferny Gentile MD [address] [facility] [address] [place] [address] PCP - General 06/11/15 documented as of this encounter
--- OUTSIDE RECORDS SUMMARY | 2025-05-01 09:38 | XMS_ITS | Encounter Summary ---
Author Organization [facility] Address [address] [place] [address] Care Team Providers Care Mobile Battery Technician Name Role Phone Ferny Gentile MD Primary Care Provider Encounter Details Date Type Department Care Team (Late st Contact Info) Description 04/21/2025 Anticoagulation Visit [facility] [address] [facility] [address] [place] [address] Claudia Bauer, PharmD [address] [place] [address] Social History Tobacco Use Types Packs/Day Years [...] Progress Notes * Claudia Bauer, PharmD - 04/21/2025 1:18 PM EST [facility] Progress Note Patient Demographics Method of INR reporting: ACEL[facility] HOME MONITOR Estimated OOP Cost: Indication: Paroxsymal Atrial Fibrillation (I48.0) Referring Provider Wojciech Flores MD Reason patient is not on a DOAC: Undetermined Goal INR: 2-3 Warfarin Start Date Fall 2014 Reason patient is not on home monitor: [id number]: CHF (1), HTN (1), Age >74 (2), Stroke/TIA/Thromboembolism (2), and Female (1) 7: 9.6% Planned Duration of Therapy Indefinite Relevant medical history: Bleed Risk/History: No h/o bleed Tablets Strength: 5 mg (peach) Anticoagulation Clinic INR History Date 02/1805/06/2410 1/17 1/24 1/31 2/7 Total Weekly Dose 52.5 mg 52.5 mg [...] 03/10 03/14 03/17 03/24 03/29 04/07 04/14 04/21 Total Weekly Dose 52.5 mg 52.5 mg 52.5 mg 32.5 mg 57.5 mg 60 mg 65 mg 52.5 mg 47.5 mg 52.5 mg 52.5 mg 52.5 mg INR 1.9 2.7 1.8 1.2 1.5 1.7 2.2 2.4 2.00 2.8 2.2 2.0 Notes Hold x 5 enox Patient Contact Information Verbal release: Signed 06/29/19 -- May speak with Litzy Naranjo Preferred contact number: Alternative contact number(s): [phone] ([email or web address]) Patient Appropriate for WarfNoCall ? No Preferred [...] therapeutic at 2.0 (2.0-3.0). Instructed patient to take warfarin 10 mg today and continue warfarin 7.5 mg daily until recheck.Patient prefers INR to be closer to 2.5 Recheck INR in 1 week, 04/28/25. Patient prefers testing Fridays. Verbal and written information provided. Luz Skaggs expresses understanding by teach back andhas no further questions at this time. Claudia Bauer PharmD 04/21/2025 13:18 EST documented in this encounter Plan of Treatment Upcoming Encounters Date Type Department Care Team (Late st Contact Info) Description 06/30/2025 11:30 AM EST Office Visit [facility] [address] [facility] [address] [place] [phone] David Bernstein MD [address] [facility] [address] [place] [address] 10/03/2025 2:45 PM EDT Office Visit [facility] [address] [facility] [address] [place] [address] Yon Govea MD [address] [facility] [address] [place], [place] [id number] 06/14/2026 1:30 PM EST Office Visit [facility] [address] [place] [address] [address] [place] [address] Wojciech Flores MD [address] [facility] [address] [place], [place] [id number] documented as of this encounter Procedures Procedure Name Priority Date/Time Associated Diagnosis Comments PROTIME-INR Routine 04/21/2025 documented in this encounter Results * Protime-INR (04/21/2025) INR 2.00 Blood us Historical Provider LAB BLOOD ORDERABLES Agata l Result documented in this encounter Visit Diagnoses Not on filedocumented in this encounter Care Teams Mobile Battery Technician Relationship Specialty Start Date End Date Ferny Gentile MD [address] [facility] [address] [place] [address] PCP - General 06/11/15 documented as of this encounter
--- OUTSIDE RECORDS SUMMARY | 2025-05-01 09:38 | XMS_ITS | Clinical Summary ---
Author Organization [facility] Address [address] [place] [address] Phone Care Team Providers Care Waxer Operator Name Role Phone MARIAMA MORALEZ, FATOUMATA Blanco Primary Care Provider [phone] Camila MORALEZ, Alanna Bowen Unavailable [phone] Reason for Visit and Chief Complaint The Chief Complaint is: R wrist pain Problems Includes: Problems addressed during this encounter and other active Problems All Visits Onset Date Date of Diagnosis Resolved Date Provider Condition Status Joint Pain Wrist Right 04/17/2022 04/17/2022 Ceci Santos APRN Active Last Documented On 5 1:41AM ; [facility] Joint Pain Right Thumb 04/17/2022 04/17/2022 Ceci Santos APRN Active Last Documented On 5 1:41AM ; [facility] Midback Pain 10/17/2020 10/17/2020 Brandon Wilks MD Active Last Documented On 5 1:40AM ; [facility] Joint Pain Left Knee 02/16/2020 02/16/2020 Marianela Cuevas MD Active Last Documented On 5 1:40AM ; [facility] Joint Pain Right Knee 10/29/2016 10/29/2016 Oneyda Jensen MD Active Last Documented On 5 1:38AM ; [facility] Pain in Lumbar Spine 03/13/2016 03/13/2016 James Jensen MD Active Last Documented On 5 1:38AM ; [facility] Joint Pain Hip Left 03/13/2016 03/13/2016 Alanna Jensen MD Active Last Documented On 5 1:38AM ; [facility] Joint Pain Knee 03/10/2012 03/10/2012 Alanna lopes MD Active Last Documented On 5 1:37AM ; [facility] Plan of Treatment - Patient screened for future fall risk: documentation of any fall with injury in past year - Last Documented On 04/14/2024 4:23PM ; [facility] Fall Risk Assessment: This patient has been [...] Documented On 04/14/2024 4:23PM ; [facility] Pending Tests Order Diagnosis Results Due Ordering P neena Therapy - Occupational Therapy Wrist 04/14 Jet Reeves MD Last Documented On 4 12:05PM ; [facility] Instructions to patient Lose weight Last Documented On 4 12:12PM ; [facility] Assessments Includes: Assessments from this encounter Findings - Overweight - Last Documented On 04/14/2024 4:23PM ; [facility] 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 Ulnar sided right wrist pain - Last Documented On 04/14/2024 4:23PM ; [facility] 3. Elevated RA panel - Last Documented On 04/14/2024 4:23PM ; [facility] Instructions Includes: Instructions from this encounter Instructions to patient Lose weight Last Documented On 4 12:12PM ; [facility] Medical Equipment - Implanted Devices Includes: Current Devices No Medical Equipment Recorded Medications Includes: Medications discussed during this encounter and other current Medications Current Medications (continue as prescribed) Colestipol HCl 5 GM Oral Packet 04/14/2024 Provider: Diagnosis: Last Documented On 4 11:25AM By Carla Hall ; [facility] Protonix 20 MG Oral Tablet Delayed Release 06/16/2022 Provider: Diagnosis: Last Documented On 3 4:00PM By Elif Chicas ; [facility] Flecainide Acetate 100 MG Oral Tablet 06/16/2022 Pro vider: Diagnosis: Last Documented On 3 4:01PM By Elif Chicas ; [facility] Metoprolol Succinate ER 25 M G Oral Tablet Extended Release 24 Hour 06/12/2022 Provider: Diagnosis: Last Documented On 3 4:00PM By Elif Chicas ; [facility] predniSONE 10 MG Oral Tablet 05/02/2022 Provider: FATOUMATA LESLIE MD Diagnosis: Last Documented On 3 4:00PM By Elfi Chicas ; [facility] Lagevrio 200 MG Oral Capsule 04/22/2022 Provider: FATOUMATA LESLIE MD Diagnosis: Last Documented On 3 4:00PM By Elif Chicas ; [facility] Lagevrio 200 MG Oral Capsule 04/22/2022 Provider: FATOUMATA LESLIE MD Diagnosis: Last Documented On 3 4:00PM By Elif Chicas ; [facility] Mupirocin 2% External Ointment 04/16/2022 Provider: Eliseo Cuevas MD Diagnosis: three times a day Apply to n ostrils 3 time a day 5 days prior to surgery. Last Documented On 2 2:50PM By Gilda Kamara ; [facility] MegaRed Troutman-3 Krill Oil 350 MG Oral Capsule 10/26/19 21 Provider: Diagnosis: Last Documented On 1 1:15PM By Betzaida Donald ; [facility] Sudafed 30 MG Oral Tablet 10/25/2020 Provider: Diagnosis: Last Documented On 1 1:15PM By Betzaida Donald ; [facility] Mucinex Allergy 180 MG Oral Tablet 10/25/2020 Provid er: Diagnosis: Last Documented On 1 1:14PM By Betzaida Donald ; [facility] Warfarin Sodium 7.5 MG Oral Tablet 10/17/2020 Provid er: Diagnosis: Last Documented On 1 2:43PM By Greer Kingston ; [facility] Ezetimibe 10 MG Oral Tablet 09/11/2020 Provider: FATOUMATA LESLIE MD Diagnosis: Last Documented On 1 1:13PM By Betzaida Donald ; [facility] Digoxin 125 MCG Oral Tablet 07/21/2020 Provider: Diagnosis: Last Documented On 1 2:44PM By Greer Kingston ; [facility] CoQ-10 10 MG Oral Capsule 10/20/2019 Provider: Diagnosis: Last Documented On 0 4:01PM By Greer Kingston ; [facility] D3-1000 25 MCG (1000 UT) Oral Capsule 10/20/2019 Pro vider: Diagnosis: Last Documented On 0 4:00PM By Greer Kingston ; [facility] Omeprazole 20 MG Oral Ta blet Delayed Release Disintegrating 10/20/2019 Provider: Diagnosis: Last Documented On 0 3:59PM By Greer Kingston ; [facility] Probiotic Maximum Strength Oral Capsule 10/20/2019 Provider: Diagnosis: Last Documented On 0 3:58PM By Greer Kingston ; [facility] Citalopram Hydrobromide 10 MG Oral Tablet 10/20/2019 Provider: Diagnosis: Last Documented On 0 3:56PM By Greer Kingston ; [facility] Flecainide Acetate 100 MG Oral Tablet 10/20/2019 Pro vider: Diagnosis: Last Documented On 0 3:55PM By Greer Kingston ; [facility] Past Medications on file oxyCODONE HCl 5 MG Oral Tablet 05/29/2022 - 06/03/2022 Provider: Eliseo ceja MD Diagnosis: 1-2 po q 4-6h Last Documented On 3 12:32PM By Hima Cuevas ; [facility] traMADol HCl 50 MG Oral Tablet 05/29/2022 - 06/03/2022 Provider: Eliseo ceja MD Diagnosis: 1-2 po q 4-6h Last Documented On 3 12:32PM By Hima Cuevas ; [facility] Lovenox 40 MG/0.4ML Injection Solution Prefilled Syringe 05/26/2022 - 05/30/2022 Provider: Eliseo ceja MD Diagnosis: 1 sub q injection 1 time day Last Documented On 3 8:35AM By Hima Cuevas ; [facility] Cefadroxil 500 MG Oral Capsule 05/21/2022 - 05/24/2022 Provider: Eliseo ceja MD Diagnosis: twice a day Last Documented On 3 12:08PM By Hima Cuevas ; [facility] Colace 100 MG Oral Capsule 05/21/2022 - 08/19/2022 Provider: Eliseo ceja MD Diagnosis: 1-2 tabs daily Last Documented On 3 12:08PM By Hima Cuevas ; [facility] traMADol HCl 50 MG Oral Tablet 05/21/2022 - 05/26/2022 Provider: Eliseo ceja MD Diagnosis: 1-2 po q 4-6h Last Documented On 3 12:08PM By Hima Cuevas ; [facility] Acetaminophen 500 MG Oral Tablet 05/21/2022 - 06/20/2022 Provider: Eliseo Cuevas MD Diagnosis: 2 three times a day Last Documented On 3 12:08PM By Hima Cuevas ; [facility] oxyCODONE HCl 5 MG Oral Tablet 05/21/2022 - 05/26/2022 Provider: Eliseo ceja MD Diagnosis: 1-2 po q 4-6h Last Documented On 3 12:08PM By Hima Cuevas ; [facility] Ondansetron HCl 4 MG Oral Tablet 05/21/2022 - 05/26/2022 Provider: Eliseo Cuevas MD Diagnosis: [id number] Last Documented On 3 12:08PM By Hima Cuevas ; [facility] Meloxicam 15 MG Oral Tablet 05/21/2022 - 06/20/2022 Provider: Eliseo ceja MD Diagnosis: once a day Last Documented On 3 12:08PM By Hima Cuevas ; [facility] HYDROcodone-Acetaminophen 7. 5-325 MG Oral Tablet 10/25/2020 - 11/14/2020 Provider: Brandon Wilks MD Diagnosis: twice a day Last Documented On 1 12:08PM By Dr. Wilks ; [facility] [place] 5-325MG Oral Tablet 12/23/2018 - 01/22/2019 Provider: Eliseo ceja MD Diagnosis: 1-2 po q6h prn pain Last Documented On 9 3:09PM By Reanna Gutierrez ; [facility] Acetaminophen 500MG Oral Tablet 12/08/2018 - 01/07/2019 Provider: Eliseo Cuevas MD Diagnosis: 2 three times a day FOR BACON RGERY DO NOT FILL UNTIL 12/14/18 Last Documented On 9 4:10PM By Reanna Gutierrez ; [facility] traMADol HCl 50MG Oral Tablet 12/08/2018 - 12/13/2018 Provider: Eliseo ceja MD Diagnosis: 1-2 po q6h prn pain FOR BACON RGERY DO NOT FILL UNTIL 12/14/18 Last Documented On 9 4:06PM By Reanna Gutierrez ; [facility] Neurontin 300MG Oral Capsule 12/08/2018 - 03/08/2019 Provider: Eliseo ceja MD Diagnosis: 1 every bedtime FOR SURGER Y DO NOT FILL UNTIL 12/14/18 Last Documented On 9 4:05PM By Reanna Gutierrez ; [facility] Dilaudid 2MG Oral Tablet [...] By Gilda Kamara ; [facility] [place] 5-325MG Oral Tablet 12/24/2017 - 12/31/2017 Prov ider: Brandon Wilks MD Diagnosis: 1-2 po q 4-6h PRN Last Documented On 8 5:31PM By Dr. Wilks ; [facility] [place] 7.5-325 MG OR TABS 12/24/2017 - 01/03/2018 Provi gaby: Brandon Wilks MD Diagnosis: Last Documented On 8 11:35AM By Marcelle Croft ; [facility] Voltaren Gel 1% External [...] By Sayra Evans ; [facility] [place] 5-325 MG Tablet 10/29/2016 - 11/05/2016 Provider : Alanna Jensen MD Diagnosis: 1-2 po q 4-6h PRN Last Documented On 7 11:55AM By Camryn Paez ; [facility] Medrol 4 MG Tablet Therapy Pack 02/14/2016 - 02/20/2016 Provider: Alanna chin MD Diagnosis: use as directed by pharmacy Last Documented On 6 3:16PM By Heather Langley ; [facility] [place] 5-325 MG Tablet 12/03/2015 - 12/18/2015 Provider : Alanna Jensen MD Diagnosis: 1-2 po q 4-6h Last Documented On 6 1:26PM By Heather Langley ; [facility] [place] 7.5-325 MG Tablet 11/16/2015 - 12/16/2015 Provid er: Alanna Jensen MD Diagnosis: 1 every 4 - 6 hours PO PRN Last Documented On 6 2:09PM By Lani Marquez ; [facility] Voltaren 1% TD GEL 01/31/2013 - 03/02/2013 Provider: Alanna Jensen MD Diagnosis: DEGENERATIVE MIKEY NT DISEASE KNEE apply 4 grams to affected ar ea 4 times a day//ks Last Documented On 3 2:16PM By Ann Marie Sutherland ; [facility] Lortab 10-500 MG OR TABS 09/14/2012 - 09/21/2012 Provi gaby: Alanna Jensen MD Diagnosis: [phone] paty jsb/df Last Documented On 3 8:56AM By Jose F Gutierrez ; [facility] Lortab 10-500 MG OR TABS 08/06/2012 - 08/13/2012 Provi gaby: Alanna Jensen MD Diagnosis: [phone] paty jsb/df Last Documented On 3 1:59PM By Jose F Gutierrez ; [facility] Lortab 10-500 MG OR TABS 07/09/2012 - 07/16/2012 Provi gaby: Alanna Jensen MD Diagnosis: [phone] paty jsb Last Documented On 3 12:36PM By Jose F Gutierrez ; [facility] Lortab 10-500 MG OR TABS 07/01/2012 - 07/08/2012 Provi gaby: Alanna Jensen MD Diagnosis: [phone] paty df Last Documented On 3 1:53PM By Jose F Gutierrez ; [facility] Xarelto 10 MG OR TABS 06/14/2012 - 07/05/2012 Provider : Alanna Jensen MD Diagnosis: sx on 06-15-12kw Last Documented On 3 1:31PM By Danielle Dobson ; [facility] Lortab 10-500 MG OR TABS 06/14/2012 - 06/21/2012 Provi gaby: Alanna Jensen MD Diagnosis: sx on 06-15-12kw Last Documented On 3 1:31PM By Danielle Dobson ; [facility] Medications Administered Includes: Administered Medications from this encounter No Administered Medications Recorded Vital Signs Includes: Vital Signs from this encounter Vital Name 04/14/2024 12:09P Height (in) 65 Weight (lb) 172 Body Mass Index 28.6 Body Surface Area 1.9 Note: sr Last Documented: On 04/14/2024 12:11P M ; [facility] Results Includes: Results discussed during this encounter [...] 04/14/2024 Last Documented On 4 4:23PM ; [facility] Not [facility] current [facility]oker. 04/14/2024 Last Documented On 4 4:23PM ; [facility] Tobacco non-user 04/14/2024 Last Documented On 4 4:23PM ; [facility] Sex - Female 09/12/2024 Last Documented On 5 9:46AM ; [facility] Smoking Status Unknown Procedures and Surgical History Includes: Procedures from this encounter Procedures Code Diagnosis Performing Provider Service L ocation Service Date use of tobacco assessment performed 1000F Last Documented On 4 12:12PM ; [facility] patient screened for future fall risk: documentation of any fall with injury in past year 1100F Last Documented On 4 12:12PM ; [facility] an X-ray was performed 53238 Last Documented On 4 12:12PM ; [facility] Medical History Includes: Medical History addressed during this encounter Description Last Updated Recent immunization for flu 02/01/2022 1 06/15/2023 Last Documented On 4 4:23PM ; [facility] Recent immunization for pneumococcal pne onia 201304/14/2024 Last Documented On 4 4:23PM ; [facility] Family History Includes: Family History [...] encounter Description No anxiety Last Documented On 4 12:12PM ; [facility] Physical Exam Includes: Physical Exam from this encounter Allergies Includes: Active Allergies Substance Type Reaction Onset Date Resolved Date Statu s Sulfa Antibiotics Allergy 06/09/2017 A ctive Last Documented On 4 12:09PM ; [facility] Statins Support Allergy 06/09/2017 Act citlalli Last Documented On 4 12:09PM ; [facility] Percocet Allergy 03/10/2012 Active Last Documented On 4 12:09PM ; [facility] Bactrim Allergy 11/16/2015 Active Last Documented On 4 12:09PM ; [facility] Care Waxer Operator Name (Identifier) Role/Relation Location/Telecom Last Documented By FATOUMATA LESLIE MD ([id number]) Primary care physician (occupation) [address] [place] [address], [address], [place], [place], , [address] tel:[phone] Last Documented On 09/12/2024 9:46AM ; [facility] Alanna Jensen MD ([id number]) Assigned practitioner (occupation) tel:[phone] Last Documented On 09/12/2024 9:46AM ; [facility] Encounters Encounter Provider Location (Healthcare Service Location) Date Check-In Time Check-Out Time Diagnosis Encounter Disposition Follow Up Ceci Santos APRN [facility] 2023 11:15AM 12:07PM Overweight Payer Includes: Active Insurance Policies Plan Name (Payer ID) Coverage Type Member ID Group # Subscriber (ID) Relationship Effective Dates 1 - Medicare [place] of [place] ([id number]) [id number] Luz Skaggs Self 04/03/2007 - Unknown Last Documented On 9 10:11AM ; [facility] 2 - [place]RY[place] [id number] PLAN Kit Skaggs Self 05/04/19 12 - Unknown Last Documented On 3 7:45AM ; [facility] Clinical Notes Includes: Clinical Notes from this encounter * Progress note Date Encounter Last Documented by 04/14/2024 Follow Up Last documented on 04/14/2024; 4:23 PM, Ceci Santos APRN; [facility] Active Problems & Conditions - Joint Pain [...] Capsule 5 days, 0 refills - MegaRed Troutman-3 Krill Oil 350 MG Oral Capsule once [...] refills - Sudafed 30 MG Oral Tablet 5abn1-8d 0 days, 0 refills - Warfarin Sodium [...] Care Team - FATOUMATA LESLIE MD - FREELANCE TRANSLATOR Health Reminders - Assess BMI satisfied 04/14/2024. - Assess Tobacco Use satisfied 04/14/2024.
--- OUTSIDE RECORDS SUMMARY | 2025-05-01 09:38 | XMS_ITS | Encounter Summary ---
Author Organization [facility] Address [address] [place] [address] Care Team Providers Care Senior Communications Engineer Name Role Phone Ferny Gentile MD Primary Care Provider [phone] Encounter Details Date Type Department Care Team (Late st Contact Info) Description 11/02/2024 Results Follow-Up [facility] [address] [facility] [address] [place] [address] David Bernstein MD [address] [place] [address] Social History Tobacco Use Types Packs/Day Years [...] 11:30 AM EST Office Visit [facility] [address] [facility] [address] [place] [id number] David Bernstein MD [address] [facility] [address] [place] [address] 10/03/2025 2:45 PM EDT Office Visit [facility] [address] [facility] [address] [place] [address] Yon Govea MD [address] [facility] [address] [place], [place] [id number] 06/14/2026 1:30 PM EST Office Visit [facility] [address] [place] [address] Wojciech Flores MD [address] [place] [address] documented as of this encounter Visit Diagnoses Not on filedocumented in this encounter Care Teams Senior Communications Engineer Relationship Specialty Start Date End Date Ferny Gentile MD [address] [facility] [address] [place] [address] PCP - General 06/11/15 documented as of this encounter
--- OUTSIDE RECORDS SUMMARY | 2025-05-01 09:38 | XMS_ITS ---
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 Patient on anticoagulation/recommended aspirin daily. 14-day pe teacher 06/29/2019: Average heart rate 74 bpm. PVCs [...]
--- OUTSIDE RECORDS SUMMARY | 2025-05-01 09:38 | XMS_ITS ---
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 Name Role Phone MARIAMA MORALEZ, FATOUMATA Blanco Primary Care Provider [phone] Camila MORALEZ, Alanna Bowen Unavailable [phone] Reason for Referral 08/18/2023 Encounter for Follow Up Date Recorded Target Due Date Referral Type Referring Prov ider Reason For Referral 08/18/2023 Hernan Gold PA-C referr al to physician Last Documented On 4 3:03PM ; [facility] 08/18/2022 Encounter for Post Op Date Recorded Target Due Date Referral Type Referring Prov ider Reason For Referral 08/18/2022 Hernan Gold PA-C referr al to physician Last Documented On 3 1:09PM ; [facility] 07/07/2022 Encounter for Post Op Date Recorded Target Due Date Referral Type Referring Prov ider Reason For Referral 07/07/2022 Hernan Gold PA-C referr al to physician Last Documented On 3 11:07AM ; [facility] 06/16/2022 Encounter for Post Op Date Recorded Target Due Date Referral Type Referring Prov ider Reason For Referral 06/16/2022 Jaspreet PATTON-C referral to physician Last Documented On 3 3:44PM ; [facility] 04/17/2022 Encounter for Non Physician Specified Date Recorded Target Due Date Referral Type Referring Prov ider Reason For Referral 04/17/2022 Ceci brown APRN referral to physician Last Documented On 2 1:11PM ; [facility] 02/21/2022 Encounter for Follow Up Date Recorded Target Due Date Referral Type Referring Prov ider Reason For Referral 02/21/2022 Hernan Gold PA-C referr al to physician Last Documented On 2 10:19AM ; [facility] 10/25/2020 Encounter for Follow Up Date Recorded Target Due Date Referral Type Referring Prov ider Reason For Referral 10/25/2020 Brandon Wilks MD to see pcp for bp Last Documented On 1 10:46AM ; [facility] 10/17/2020 Encounter for NEW PROBLEM/EST PT Date Recorded Target Due Date Referral Type Referring Prov ider Reason For Referral 10/17/2020 Brandon Wilks MD to see pcp for bp Last Documented On 1 2:33PM ; [facility] Problems Includes: Active, inactive, and resolved Problems All Visits Onset Date Date of Diagnosis Resolved Date Provider Condition Status Joint Pain Wrist Right 04/17/2022 04/17/2022 Ceci Santos APRN Active Last Documented On 5 1:41AM ; [facility] Joint Pain Right Thumb 04/17/2022 04/17/2022 Ceci Santos APRN Active Last Documented On 5 1:41AM ; [facility] Midback Pain 10/17/2020 10/17/2020 Brandon Wilks MD Active Last Documented On 5 1:40AM ; [facility] Joint Pain Left Knee 02/16/2020 02/16/2020 Marianela Cuevas MD Active Last Documented On 5 1:40AM ; [facility] Joint Pain Right Knee 10/29/2016 10/29/2016 Oneyda Jensen MD Active Last Documented On 5 1:38AM ; [facility] Pain in Lumbar Spine 03/13/2016 03/13/2016 James Jensen MD Active Last Documented On 5 1:38AM ; [facility] Joint Pain Hip Left 03/13/2016 03/13/2016 Alanna Jensen MD Active Last Documented On 5 1:38AM ; [facility] Joint Pain Knee 03/10/2012 03/10/2012 Alanna lopes MD Active Last Documented On 5 1:37AM ; [facility] Plan of Treatment Findings Encounter Date Patient screened for future fall risk: documentation of any fall with injury in past year Follow Up with Ceci Santos APRN 04/14/2024 Last Documented On 4 12:12PM ; [facility] Pending Tests Order Diagnosis Results Due Ordering P rovider Lab Orders - HL Pre-Op PTT Other intervertebral disc degeneration, lumbar region 12/02/17 Brandon Wilks MD Last Documented On 8 9:23AM ; [facility] Lab Orders - HL Pre-Op PT INR Other intervertebral disc degeneration, lumbar region 12/02/17 Brandon Wilks MD Last Documented On 8 9:23AM ; [facility] Lab Orders - HL Pre-Op CMP Other int ervertebral disc degeneration, lumbar region 12/02/17 Brandon Wilks MD Last Documented On 8 9:23AM ; [facility] Lab Orders - HL Pre-Op Clean Catch UA Other intervertebral disc degeneration, lumbar region 12/02/17 Brandon Wilks MD Last Documented On 8 9:23AM ; [facility] Lab Orders - HL Pre-Op CBC with DIFF Other intervertebral disc degeneration, lumbar region 12/02/17 Brandon Wilks MD Last Documented On 8 9:23AM ; [facility] Lab Orders - HL Pre-Op BMP Other int ervertebral disc degeneration, lumbar region 12/02/17 Brandon Wilks MD Last Documented On 8 9:23AM ; [facility] Instructions to patient Lose weight Last Documented On 4 12:12PM ; [facility] Lose weight Last Documented On 4 3:03PM [...] ; [facility] Instructions for patient se e PCP for BP Last Documented On 8 [...] Santos APRN 04/14/2024 Last Documented On 4 12:12PM ; [facility] Overweight Follow Up with Hernan Nelson 08/18/2023 Last Documented On 4 3:30PM ; [facility] Instructions Includes: Instructions [...] ; [facility] Instructions for patient SE E PCP FOR BP and wt ~ Last [...] On 8 1:06PM ; [facility] Medical Equipment - Implanted Devices Includes: Current and historical Devices No Medical Equipment Recorded Medications Includes: Current and historical Medications Current Medications (continue as prescribed) Colestipol HCl 5 GM Oral Packet 04/14/2024 Provider: Diagnosis: Last Documented On 4 11:25AM By Carla Hall ; [facility] Protonix 20 MG Oral Tablet Delayed Release 06/16/2022 Provider: Diagnosis: Last Documented On 3 4:00PM By Elif Chicas ; [facility] Flecainide Acetate 100 MG Oral Tablet 06/16/2022 Pro vider: Diagnosis: Last Documented On 3 4:01PM By Elif Chicas ; [facility] Metoprolol Succinate ER 25 M G Oral Tablet Extended Release 24 Hour 06/12/2022 Provider: Diagnosis: Last Documented On 3 4:00PM By Elif Chicas ; [facility] predniSONE 10 MG Oral Tablet 05/02/2022 Provider: FATOUMATA LESLIE MD Diagnosis: Last Documented On 3 4:00PM By Elif Chicas ; [facility] Lagevrio 200 MG Oral Capsule 04/22/2022 Provider: FATOUMATA LESLIE MD Diagnosis: Last Documented On 3 4:00PM By Elif Chicas ; [facility] Lagevrio 200 MG Oral Capsule 04/22/2022 Provider: FATOUMATA LESLIE MD Diagnosis: Last Documented On 3 4:00PM By Elif Chicas ; [facility] Mupirocin 2% External Ointment 04/16/2022 Provider: Eliseo Cuevas MD Diagnosis: three times a day Apply to n ostrils 3 time a day 5 days prior to surgery. Last Documented On 2 2:50PM By Gilda Kamara ; [facility] MegaRed [place]-3 Krill Oil 350 MG Oral Capsule 10/26/19 21 Provider: Diagnosis: Last Documented On 1 1:15PM By Betzaida Donald ; [facility] Sudafed 30 MG Oral Tablet 10/25/2020 Provider: Diagnosis: Last Documented On 1 1:15PM By Betzaida Donald ; [facility] Mucinex Allergy 180 MG Oral Tablet 10/25/2020 Provid er: Diagnosis: Last Documented On 1 1:14PM By Betzaida Donald ; [facility] Warfarin Sodium 7.5 MG Oral Tablet 10/17/2020 Provid er: Diagnosis: Last Documented On 1 2:43PM By Greer Kingston ; [facility] Ezetimibe 10 MG Oral Tablet 09/11/2020 Provider: FATOUMATA LESLIE MD Diagnosis: Last Documented On 1 1:13PM By Betzaida Donald ; [facility] Digoxin 125 MCG Oral Tablet 07/21/2020 Provider: Diagnosis: Last Documented On 1 2:44PM By Greer Kingston ; [facility] CoQ-10 10 MG Oral Capsule 10/20/2019 Provider: Diagnosis: Last Documented On 0 4:01PM By Greer Kingston ; [facility] D3-1000 25 MCG (1000 UT) Oral Capsule 10/20/2019 Pro vider: Diagnosis: Last Documented On 0 4:00PM By Greer Kingston ; [facility] Omeprazole 20 MG Oral Ta blet Delayed Release Disintegrating 10/20/2019 Provider: Diagnosis: Last Documented On 0 3:59PM By Greer Kingston ; [facility] Probiotic Maximum Strength Oral Capsule 10/20/2019 Provider: Diagnosis: Last Documented On 0 3:58PM By Greer Kingston ; [facility] Citalopram Hydrobromide 10 MG Oral Tablet 10/20/2019 Provider: Diagnosis: Last Documented On 0 3:56PM By Greer Kingston ; [facility] Flecainide Acetate 100 MG Oral Tablet 10/20/2019 Pro vider: Diagnosis: Last Documented On 0 3:55PM By Greer Kingston ; [facility] Past Medications on file oxyCODONE HCl 5 MG Oral Tablet 05/29/2022 - 06/03/2022 Provider: Eliseo ceja MD Diagnosis: 1-2 po q 4-6h Last Documented On 3 12:32PM By Hima Cuevas ; [facility] traMADol HCl 50 MG Oral Tablet 05/29/2022 - 06/03/2022 Provider: Eliseo ceja MD Diagnosis: 1-2 po q 4-6h Last Documented On 3 12:32PM By Hima Cuevas ; [facility] Lovenox 40 MG/0.4ML Injection Solution Prefilled Syringe 05/26/2022 - 05/30/2022 Provider: Eliseo ceja MD Diagnosis: 1 sub q injection 1 time day Last Documented On 3 8:35AM By Hima Cuevas ; [facility] Cefadroxil 500 MG Oral Capsule 05/21/2022 - 05/24/2022 Provider: Eliseo ceja MD Diagnosis: twice a day Last Documented On 3 12:08PM By Hima Cuevas ; [facility] Colace 100 MG Oral Capsule 05/21/2022 - 08/19/2022 Provider: Eliseo ceja MD Diagnosis: 1-2 tabs daily Last Documented On 3 12:08PM By Hima Cuevas ; [facility] traMADol HCl 50 MG Oral Tablet 05/21/2022 - 05/26/2022 Provider: Eliseo ceja MD Diagnosis: 1-2 po q 4-6h Last Documented On 3 12:08PM By Hima Cuevas ; [facility] Acetaminophen 500 MG Oral Tablet 05/21/2022 - 06/20/2022 Provider: Eliseo Cuevas MD Diagnosis: 2 three times a day Last Documented On 3 12:08PM By Hima Cuevas ; [facility] oxyCODONE HCl 5 MG Oral Tablet 05/21/2022 - 05/26/2022 Provider: Eliseo ceja MD Diagnosis: 1-2 po q 4-6h Last Documented On 3 12:08PM By Hima Cuevas ; [facility] Ondansetron HCl 4 MG Oral Tablet 05/21/2022 - 05/26/2022 Provider: Eliseo Cuevas MD Diagnosis: [id number] Last Documented On 3 12:08PM By Hima Cuevas ; [facility] Meloxicam 15 MG Oral Tablet 05/21/2022 - 06/20/2022 Provider: Eliseo ceja MD Diagnosis: once a day Last Documented On 3 12:08PM By Hima Cuevas ; [facility] HYDROcodone-Acetaminophen 7. 5-325 MG Oral Tablet 10/25/2020 - 11/14/2020 Provider: Brandon Wilks MD Diagnosis: twice a day Last Documented On 1 12:08PM By Dr. Wilks ; [facility] Mobile 5-325 MG Oral Tablet 11/07/2019 - 10/25/2020 Pro vider: Brandon Wilks MD Diagnosis: twice a day and bedtime as necessary Last Documented On 1 1:11PM By Betzaida Donald ; [facility] tiZANidine HCl 2 MG Oral Tablet 10/21/2019 - Provider: FATOUMATA LESLIE MD Diagnosis: Last Documented On 1 1:11PM By Betzaida Donald ; [facility] Osteo Bi-Flex Joint Shield Oral Tablet 10/20/2019 - Provider: Diagnosis: Last Documented On 4 11:28AM By Clint Rocha ; [facility] Myrbetriq 25 MG Oral Tablet Extended Release 24 Hour 10/20/2019 - 03/03/2024 Provider: Diagnosis: Last Documented On 4 11:28AM By Clint Rocha ; [facility] MiraLax Oral Powder 10/20/2019 - 03/03/2024 Provider: Diagnosis: Last Documented On 4 11:28AM By Clint Rocha ; [facility] EQ Restore Plus Lubricant Ey e 0.5% Ophthalmic Solution 10/20/2019 - 03/03/2024 Provider: Diagnosis: Last Documented On 4 11:35AM By Clint Rocha ; [facility] Cetirizine HCl 10 MG Oral Capsule 10/20/2019 - 021 Provider: Diagnosis: Last Documented On 1 1:11PM By Betzaida Donald ; [facility] Ipratropium [place] 0.03% Nasal Solution 10/20/2019 - 03/03/2024 Provider: Diagnosis: Last Documented On 4 11:28AM By Clint Rocha ; [facility] Calcium-Magnesium 100-50 MG Oral Tablet 10/20/2019 - 1 Provider: Diagnosis: Last Documented On 4 11:28AM By Clint Rocha ; [facility] [place]-3 Krill Oil 300 MG Oral Capsule 10/20/2019 - 10/25/2020 Provider: Diagnosis: Last Documented On 1 1:12PM By Betzaida Donald ; [facility] Warfarin Sodium 7.5 MG Oral Tablet 10/20/2019 - 2020 Provider: Diagnosis: Last Documented On 1 2:43PM By Greer Kingston ; [facility] Ipratropium [place] 0.06% Nasal Solution 10/20/2019 - 10/25/2020 Provider: Diagnosis: Last Documented On 1 1:12PM By Betzaida Donald ; [facility] Ezetimibe-Simvastatin 10-10 MG Oral Tablet 10/20/2019 - 10/25/2020 Provider: Diagnosis: Last Documented On 1 1:12PM By Betzaida Donald ; [facility] Metoprolol-HCTZ ER 25-12.5 M G Oral Tablet Extended Release 24 Hour 10/20/2019 - 10/25/2020 Provider: Diagnosis: Last Documented On 1 1:12PM By Betzaida Donald ; [facility] HYDROcodone-Acetaminophen 2. 5-325 MG Oral Tablet 10/18/2019 - 10/25/2020 Provider: FATOUMATA LESLIE MD Diagnosis: Last Documented On 1 1:13PM By Betzaida Donald ; [facility] Mobile 5-325MG Oral Tablet 12/31/2018 - 10/20/2019 Prov ider: eLs Manriquez MD Diagnosis: 1-2 p o q 6-8h Last Documented On 0 3:53PM By Greer Kingston ; [facility] Mobile 5-325MG Oral Tablet 12/23/2018 - 01/22/2019 Provider: Eliseo ceja MD Diagnosis: 1-2 po q6h prn pain Last Documented On 9 3:09PM By Reanna Gutierrez ; [facility] Acetaminophen 500MG Oral Tablet 12/08/2018 - 01/07/2019 Provider: Eliseo Cuevas MD Diagnosis: 2 three times a day FOR BACON RGERY DO NOT FILL UNTIL 12/14/18 Last Documented On 9 4:10PM By Reanna Gutierrez ; [facility] traMADol HCl 50MG Oral Tablet 12/08/2018 - 12/13/2018 Provider: Eliseo ceja MD Diagnosis: 1-2 po q6h prn pain FOR BACON RGERY DO NOT FILL UNTIL 12/14/18 Last Documented On 9 4:06PM By Reanna Gutierrez ; [facility] Neurontin 300MG Oral Capsule 12/08/2018 - 03/08/2019 Provider: Eliseo ceja MD Diagnosis: 1 every bedtime FOR SURGER Y DO NOT FILL UNTIL 12/14/18 Last Documented On 9 4:05PM By Reanna Gutierrez ; [facility] Dilaudid 2MG Oral Tablet 12/08/2018 - 12/10/2018 Provi gaby: Eliseo Cuevas MD Diagnosis: 1-2 po q6h prn pain (RESCUE PAIN) FOR SURGERY DO NOT FILL UNTIL 12/14/18 Last Documented On 9 4:05PM By Reanna Gutierrez ; [facility] Colace 100MG Oral Capsule 12/08/2018 - 03/08/2019 Provider: Eliseo ceja MD Diagnosis: 1-2 tabs daily FOR SURGERY DO NOT FILL UNTIL 12/14/18 Last Documented On 9 4:10PM By Reanna Gutierrez ; [facility] Mupirocin 2% External Ointment 11/09/2018 - 11/14/2018 Provider: Eliseo ceja MD Diagnosis: Apply to nostrils 3 time a d ay 5 days prior to surgery. Last Documented On 9 10:40AM By Gilda Kamara ; [facility] Doxycycline Hyclate 100MG Oral Capsule 09/02/2018 - Provider: Diagnosis: Last Documented On 0 3:54PM By Greer Kingston ; [facility] Myrbetriq 25MG Oral Tablet E xtended Release 24 Hour 02/22/2018 - 10/20/2019 Provider: Diagnosis: Last Documented On 0 3:53PM By Greer Kingston ; [facility] Mobile 7.5-325MG Oral Tablet 12/28/2017 - 10/20/2019 Pr ovider: Brandon Wilks MD Diagnosis: three times a day, for post surgical spinal fusion pain , use spinal fusion post op guideloies, this surgry hurts 2-4 weeks Last Documented On 0 3:53PM By Greer Kingston ; [facility] Mobile 5-325MG Oral Tablet 12/24/2017 - 12/31/2017 Prov ider: Brandon Wilks MD Diagnosis: 1-2 po q 4-6h PRN Last Documented On 8 5:31PM By Dr. Wilks ; [facility] Mobile 7.5-325 MG OR TABS 12/24/2017 - 01/03/2018 Provi gaby: Brandon Wilks MD Diagnosis: Last Documented On 8 11:35AM By Marcelle Croft ; [facility] Voltaren Gel 1% External 10/14/2017 - 12/13/2017 Provi gaby: Alanna Jensen MD Diagnosis: use as directed Last Documented On 8 10:09AM By Sayra Evans ; [facility] HM Magnesium 400MG Oral Tablet 06/09/2017 - 10/20/2019 Provider: Diagnosis: Last Documented On 0 3:53PM By Greer Kingston ; [facility] Lovenox 40MG/0.4ML Subcutaneous Solution 05/06/2017 - 05/26/2017 Provider: Alanna castaneda MD Diagnosis: use as directed/1 INJECTION PER DAY FOR 5 DAYS PRIOR TO PROCEDER & 1 INJECTION PER DAY FOR 5 DAYS AFTER PROCERDER/ Last Documented On 8 4:29PM By Sayra Evans ; [facility] Flecainide Acetate 100MG Oral Tablet 02/04/2017 - 10/02 Provider: Diagnosis: Last Documented On 0 3:53PM By Greer Kingston ; [facility] Mobile 5-325 MG Tablet 10/29/2016 - 11/05/2016 Provider : Alanna Jensen MD Diagnosis: 1-2 po q 4-6h PRN Last Documented On 7 11:55AM By Camryn Paez ; [facility] Medrol 4 MG Tablet Therapy Pack 02/14/2016 - 02/20/2016 Provider: Alanna chin MD Diagnosis: use as directed by pharmacy Last Documented On 6 3:16PM By Heather Langley ; [facility] Mobile 5-325 MG Tablet 12/03/2015 - 12/18/2015 Provider : Alanna Jensen MD Diagnosis: 1-2 po q 4-6h Last Documented On 6 1:26PM By Heather Langley ; [facility] Calcium Carbonate-Vitamin D3 600-400 MG-UNIT Tablet 11/16/2015 - 10/20/2019 Provider: Diagnosis: Last Documented On 0 3:53PM By Greer Kingston ; [facility] Osteo Bi-Flex Regular Strength 250-200 MG Tablet 11/16/2015 - 10/20/2019 Provider: Diagnosis: Last Documented On 0 3:53PM By Greer Kingston ; [facility] Omeprazole 20 MG Tablet, enteric coated 11/16/2015 - 10/20/2019 Provider: Diagnosis: Last Documented On 0 3:53PM By Greer Kingston ; [facility] Metoprolol Succinate ER 25 M G Tablet, extended-release 24 hour 11/16/2015 - 10/20/2019 Provider: Diagnosis: Last Documented On 0 3:53PM By Greer Kingston ; [facility] Warfarin Sodium 1 MG Tablet 11/16/2015 - 10/20/2019 Pr ovider: Diagnosis: Last Documented On 0 3:54PM By Greer Kingston ; [facility] ZyrTEC Allergy 10 MG Tablet 11/16/2015 - 10/20/2019 Pr ovider: Diagnosis: Last Documented On 0 3:54PM By Greer Kingston ; [facility] Citalopram Hydrobromide 10 MG Tablet 11/16/2015 - 10/02 Provider: Diagnosis: Last Documented On 0 3:53PM By Greer Kingston ; [facility] Mobile 7.5-325 MG Tablet 11/16/2015 - 12/16/2015 Provid er: Alanna Jensen MD Diagnosis: 1 every 4 - 6 hours PO PRN Last Documented On 6 2:09PM By Lani Marquez ; [facility] Prolia 60 MG/ML Solution 11/16/2015 - 10/20/2019 Provi gaby: Diagnosis: Last Documented On 0 3:54PM By Greer Kingston ; [facility] Aspirin Adult Low Dose 81 MG Tablet, enteric coated 11/16/2015 - 06/09/2017 Provider: Diagnosis: Last Documented On 8 1:56PM By Tiffany Alegre ; [facility] Bran Fiber 500 MG Tablet 11/16/2015 - 10/20/2019 Provi gaby: Diagnosis: Last Documented On 0 3:53PM By Greer Kingston ; [facility] 4X Probiotic Tablet 11/16/2015 - 10/20/2019 Provider: Diagnosis: Last Documented On 0 3:53PM By Greer Kingston ; [facility] Krill Oil [place]-3 300 MG Capsule, conventional 0 11/16/2015 - 06/09/2017 Provider: Diagnosis: Last Documented On 8 1:57PM By Tiffany Alegre ; [facility] Voltaren 1% TD GEL 01/31/2013 - 03/02/2013 Provider: Alanna Jensen MD Diagnosis: DEGENERATIVE MIKEY NT DISEASE KNEE apply 4 grams to affected ar ea 4 times a day//ks Last Documented On 3 2:16PM By Ann Marie Sutherland ; [facility] Lortab 10-500 MG OR TABS 09/14/2012 - 09/21/2012 Provi gaby: Alanna Jensen MD Diagnosis: [id number] [employer] jsb/df Last Documented On 3 8:56AM By Jose F Gutierrez ; [facility] Lortab 10-500 MG OR TABS 08/06/2012 - 08/13/2012 Provi gaby: Alanna Jensen MD Diagnosis: [phone] [employer] jsb/df Last Documented On 3 1:59PM By Jose F Gutierrez ; [facility] Lortab 10-500 MG OR TABS 07/09/2012 - 07/16/2012 Provi gaby: Alanna Jensen MD Diagnosis: [phone] [employer] jsb Last Documented On 3 12:36PM By Jose F Gutierrez ; [facility] Lortab 10-500 MG OR TABS 07/01/2012 - 07/08/2012 Provi gaby: Alanna Jensen MD Diagnosis: [phone] [employer] df Last Documented On 3 1:53PM By Jose F Gutierrez ; [facility] Xarelto 10 MG OR TABS 06/14/2012 - 07/05/2012 Provider : Alanna Jensen MD Diagnosis: sx on 06-15-12 Last Documented On 3 1:31PM By Danielle Dobson ; [facility] Lortab 10-500 MG OR TABS 06/14/2012 - 06/21/2012 Provi gaby: Alanna Jensen MD Diagnosis: sx on 06-15-12 Last Documented On 3 1:31PM By Danielle Dobson ; [facility] Reclast 5 MG/100ML IV SOLN 03/10/2012 - 06/09/2017 Pro vider: Diagnosis: Last Documented On 8 1:58PM By Tiffany Alegre ; [facility] Atenolol 25 MG OR TABS 03/10/2012 - 06/09/2017 Provide r: Diagnosis: Last Documented On 8 1:59PM By Tiffany Alegre ; [facility] Zetia 10 MG OR TABS 03/10/2012 - 10/20/2019 Provider: Diagnosis: Last Documented On 0 3:50PM By Greer Kingston ; [facility], [facility] Medications Administered Includes: Administered Medications in patient's chart No Administered Medications Recorded Results Includes: Results from 05/01/2024 through 05/01/2025 No Results Recorded For Specified Dates Social History Description Last Updated No recent change in diet 04/14/2024 Last Documented On 4 4:23PM ; [facility] Not a current smoker. 04/14/2024 Last Documented On 4 4:23PM ; [facility] Tobacco non-user 04/14/2024 Last Documented On 4 4:23PM ; [facility] Alcohol use 10/25/2020 Last Documented On 1 11:07AM ; [facility] Not using drugs 10/25/2020 Last Documented On 1 11:07AM ; [facility] Recent change in diet 10/25/2020 Last Documented On 1 11:07AM ; [facility] Non-smoker 10/17/2020 Last Documented On 1 9:12AM ; [facility] No caffeine use 10/17/2020 Last Documented On 1 9:12AM ; [facility] Not a current smoker. 10/17/2020 Last Documented On 1 9:12AM ; [facility] No tobacco use 10/31/2019 Last Documented On 0 9:14AM ; [facility] Not a current smoker 10/31/2019 Last Documented On 0 9:14AM ; [facility] Not exercising regularly 10/31/2019 Last Documented On 0 9:14AM ; [facility] Smoking status : Never smoker 10/31/2019 Last Documented On 0 9:14AM ; [facility] Sex - Female 09/12/2024 Last Documented On 5 9:46AM ; [facility], [facility] Procedures and Surgical History Surgical History Last Updated History of back surgery 11/2019-Kypho T1 2 10/17/2020 Last Documented On 1 9:12AM ; [facility] History of heart surgery ablation 2017 0 10/31/2019 Last Documented On 0 9:14AM ; [facility] History of total hip replacement left hi p 201810/31/2019 Last Documented On 0 9:14AM ; [facility] History of total knee arthroplasty right knee 201210/31/2019 Last Documented On 0 9:14AM ; [facility], [facility] History of hysterectomy 10/16/2014 Last Documented On 5 9:01AM ; [facility], [facility] Medical History Includes: Medical History in patient's chart Description Last Updated Recent immunization for flu 02/01/2022 1 06/15/2023 Last Documented On 4 4:23PM ; [facility] Recent immunization for pneumococcal pne umonia 201304/14/2024 Last Documented On 4 4:23PM ; [facility] History of Irregular Heartbeat A-fib; ep isode after TKA- cadiovert needed 06/16/2022 Last Documented On 3 4:10PM ; [facility], [facility] blood transfusions 10/25/2020 Last Documented On 1 11:07AM ; [facility], [facility] Arthritis 10/25/2020 Last Documented On 1 11:07AM ; [facility] Heartburn / Acid Reflux 10/25/2020 Last Documented On 1 11:07AM ; [facility] History of Blood Clots 10/25/2020 Last Documented On 1 11:07AM ; [facility], [facility] History of Blood Transfusion 10/25/2020 Last Documented On 1 11:07AM ; [facility], [facility] History of Cancer 10/25/2020 Last Documented On 1 11:07AM ; [facility] History of Fractures 10/25/2020 Last Documented On 1 11:07AM ; [facility] History of heart disease 10/25/2020 Last Documented On 1 11:07AM ; [facility] Hypertension 10/25/2020 Last Documented On 1 11:07AM ; [facility] Irregular Heartbeat 10/25/2020 Last Documented On 1 11:07AM ; [facility] Past Surgical History: wrist repair ~hand sx ~gallstone sx 2011 ~mastectomy and reconstruction ~colonoscopy 2018 10/25/2020 Last Documented On 1 11:07AM ; [facility] Previous Fractures 10/25/2020 Last Documented On 1 11:07AM ; [facility] Sleep Apnea 10/25/2020 Last Documented On 1 11:07AM ; [facility] Use of CPAP 10/25/2020 Last Documented On 1 11:07AM ; [facility] Back surgery 12/15/2017 L4-5 Posterior Decompression and Fusion @ [facility] ~11/07/2019 T12 Kyphyoplasty 10/25/2020 Last Documented On 1 11:07AM ; [facility] Heart surgery pacemaker 12/2019 ~Afib ab lation 10/25/2020 Last Documented On 1 11:07AM ; [facility] History of Gallbladder 10/25/2020 Last Documented On 1 11:07AM ; [facility] Hysterectomy 10/25/2020 Last Documented On 1 11:07AM ; [facility] Total hip replacement 12/2018-Left hip 0 10/17/2020 Last Documented On 1 9:12AM ; [facility] A previous fracture 10/31/2019 Last Documented On 0 9:14AM ; [facility] Gallbladder disease 2018 10/31/2019 Last Documented On 0 9:14AM ; [facility], [facility] History of diverticulitis of colon 11/15 Last Documented On 6 1:39PM ; [facility] History of osteoporosis 11/16/2015 Last Documented On 6 1:39PM ; [facility] A history of cancer 10/16/2014 Last Documented On 5 9:01AM ; [facility] Arthritic joint problems 10/16/2014 Last Documented On 5 9:01AM ; [facility] Family History Includes: Family History in patient's chart Description Last Updated Family history of cancer mother ~father 11/16/2015 Last Documented On 6 1:39PM ; [facility] Family history of diabetes mellitus moth er 11/16/2015 Last Documented On 6 1:39PM ; [facility] Family history of heart disease mother ~ father 11/16/2015 Last Documented On 6 1:39PM ; [facility] Family history of hypertension mother ~f ather 11/16/2015 Last Documented On 6 1:39PM ; [facility] Family history of osteoporosis mother Last Documented On 6 1:39PM ; [facility] Family history of rheumatoid arthritis m other 11/16/2015 Last Documented On 6 1:39PM ; [facility] Family history of thromboembolic disease mother 11/16/2015 Last Documented On 6 1:39PM ; [facility], [facility] Maternal history of hypertension 015 Last Documented On 5 9:01AM ; [facility], [facility] Maternal history of osteoporosis 015 Last Documented On 5 9:01AM ; [facility] Mental Status Description No anxiety Last Documented On 4 12:12PM ; [facility] No anxiety Last Documented On 4 3:03PM ; [facility] No anxiety Last Documented On 3 1:09PM ; [facility] No anxiety Last Documented On 3 11:07AM ; [facility] No anxiety Last Documented On 3 3:45PM ; [facility] No anxiety Last Documented On 2 9:43AM ; [facility] No anxiety Last Documented On 1 10:46AM ; [facility] No anxiety Last Documented On 1 2:32PM ; [facility] No anxiety Last Documented On 0 1:09PM ; [facility] No anxiety Last Documented On 0 8:26AM ; [facility] No anxiety Last Documented On 0 1:54PM ; [facility] No anxiety Last Documented On 0 3:00PM ; [facility] No anxiety Last Documented On 9 1:03PM ; [facility] No anxiety Last Documented On 9 11:20AM ; [facility] No anxiety Last Documented On 9 8:43AM ; [facility] No anxiety Last Documented On 9 11:51AM ; [facility] No anxiety Last Documented On 9 10:40AM ; [facility] No anxiety Last Documented On 8 4:56PM ; [facility] No anxiety Last Documented On 8 11:51AM ; [facility] No anxiety Last Documented On 8 1:16PM ; [facility] No anxiety Last Documented On 8 10:21AM ; [facility] No anxiety Last Documented On 8 8:38AM ; [facility] No anxiety Last Documented On 8 10:23AM ; [facility] No anxiety Last Documented On 8 12:58PM ; [facility] No anxiety Last Documented On 8 1:39PM ; [facility] No anxiety Last Documented On 8 2:16PM ; [facility] No anxiety Last Documented On 7 10:10AM ; [facility] No anxiety Last Documented On 7 1:05PM ; [facility] No anxiety Last Documented On 7 10:41AM ; [facility] No anxiety Last Documented On 7 1:02PM ; [facility] No anxiety Last Documented On 6 1:03PM ; [facility] No anxiety Last Documented On 6 1:09PM ; [facility] No anxiety Last Documented On 6 2:08PM ; [facility] No anxiety Last Documented On 6 12:47PM ; [facility] No anxiety Last Documented On 6 1:09PM ; [facility] No anxiety Last Documented On 6 1:07PM ; [facility], [facility] No anxiety Last Documented On 5 1:31PM ; [facility], [facility] Immunizations Includes: Immunizations in patient's chart Vaccine Dose # Date Site Reaction(s) Status Source Influenza 1 02/08/2018 Complete (Reported) Patient Last Documented On 0 3:13PM ; [facility] Influenza 2 02/01/2022 Complete (Reported) Patient Last Documented On 2 1:10PM ; [facility] PCV (Pneumovax 23) 1 2013 Complete ( Reported) Patient Last Documented On 2 1:10PM ; [facility] PCV (Pneumovax 23) 2 04/17/2022 Complete (Refused - Patient objection) [facility] Last Documented On 2 1:10PM ; [facility] Allergies Includes: Active, inactive, and resolved Allergies Substance Type Reaction Onset Date Resolved Date Statu s Sulfa Antibiotics Allergy 06/09/2017 A ctive Last Documented On 4 12:09PM ; [facility] Statins Support Allergy 06/09/2017 Act citlalli Last Documented On 4 12:09PM ; [facility] Percocet Allergy 03/10/2012 Active Last Documented On 4 12:09PM ; [facility] Bactrim Allergy 11/16/2015 Active Last Documented On 4 12:09PM ; [facility] 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 Name (Identifier) Role/Relation Location/Telecom Last Documented By FATOUMATA LESLIE MD ([id number]) Primary care physician (occupation) [address] [place] [facility] [address], [address], [place], [place], , [address] tel:[phone] Last Documented On 09/12/2024 9:46AM ; [facility] Alanna Jensen MD ([id number]) Assigned practitioner (occupation) tel:[phone] Last Documented On 09/12/2024 9:46AM ; [facility] Payer Includes: Active Insurance Policies Plan Name (Payer ID) Coverage Type Member ID Group # Subscriber (ID) Relationship Effective Dates 1 - Medicare Part B [facility] ([id number]) [id number] Luz Howard 04/03/2007 - Unknown Last Documented On 9 10:11AM ; [facility] 2 - [facility] [id number]) [id number] PLAN F Luz Skaggs Self 05/04/19 12 - Unknown Last Documented On 3 7:45AM ; [facility]
--- OUTSIDE RECORDS SUMMARY | 2025-05-01 09:38 | XMS_ITS | Encounter Summary ---
[facility] [address] [place] [address] Care Team Providers Care Sausage Inspector Name Role Phone Ferny Gentile MD Primary Care Provider [phone] Encounter Details Date Type Department Care Team (Latest Contact Info) Description 09/24/2018 Anticoagulation Visit [facility] [address] [place] [address] [address] [place] [address] Orville Reyes Paroxysmal 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 Social History [...] Visit [facility] RHEUMATOLOGY [address] [address] David Bernstein MD [address] [facility] [address] [place] [address] 10/03/2025 2:45 PM EDT Office Visit [facility] CARDIOLOGY [address] [facility] [address] [place] [address] Yon Govea MD [address] [facility] [address] [place] [address] 06/14/2026 1:30 PM EST Office Visit [facility] CARDI[facility] [address] [place] [address] Wojciech Flores MD [address] [place], [place] [id number] documented as of this encounter Visit Diagnoses Diagnosis Paroxysmal 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 Atrial fibrillation documented in this encounter Additional Health Concerns Infection Onset Date Last Indicated Resolved Time COVID Screen (preop/placement) 12/11/2019 12/11/2019 12/12/2019 2:04 PM EDT COVID Screen (preop/placement) 02/12/2020 02/12/2020 02/14/2020 7:46 AM EDT COVID Screen (preop/placement) 01/15/2021 01/15/2021 01/15/2021 10:59 PM EDT documented as of this encounter Care Teams Sausage Inspector Relationship Specialty Start Date End Date Ferny Gentile MD [address] [facility] [address] [place] [address] PCP - General 06/11/15 documented as of this encounter
--- OUTSIDE RECORDS SUMMARY | 2025-05-01 09:38 | XMS_ITS | Clinical Summary ---
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 Name Role Phone MARIAMA MORALEZ, FATOUMATA Blanco Primary Care Provider [phone] Camila MORALEZ, Alanna Bowen Unavailable [phone] Reason for Visit and Chief Complaint Follow Up Problems Includes: Problems addressed during this encounter and other active Problems All Visits Onset Date Date of Diagnosis Resolved Date Provider Condition Status Joint Pain Wrist Right 04/17/2022 04/17/2022 Ceci Santos APRN Active Last Documented On 5 1:41AM ; [facility] Joint Pain Right Thumb 04/17/2022 04/17/2022 Ceci Santos APRN Active Last Documented On 5 1:41AM ; [facility] Midback Pain 10/17/2020 10/17/2020 Brandon Wilks MD Active Last Documented On 5 1:40AM ; [facility] Joint Pain Left Knee 02/16/2020 02/16/2020 Marianela Cuevas MD Active Last Documented On 5 1:40AM ; [facility] Joint Pain Right Knee 10/29/2016 10/29/2016 Oneyda Jensen MD Active Last Documented On 5 1:38AM ; [facility] Pain in Lumbar Spine 03/13/2016 03/13/2016 James Jensen MD Active Last Documented On 5 1:38AM ; [facility] Joint Pain Hip Left 03/13/2016 03/13/2016 Alanna Jensen MD Active Last Documented On 5 1:38AM ; [facility] Joint Pain Knee 03/10/2012 03/10/2012 Alanna lopes MD Active Last Documented On 5 1:37AM ; [facility] Plan of Treatment 1. Patient's diagnoses and [...] - Last Documented On 03/10/2024 4:11PM ; [facility] Assessments Includes: Assessments from this encounter Findings 1. Ulnar sided right wrist pain - Last Documented On 03/10/2024 4:11PM ; [facility] 2. 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 - Last Documented On 03/10/2024 4:11PM ; [facility] Medical Equipment - Implanted Devices Includes: Current Devices No Medical Equipment Recorded Medications Includes: Medications discussed during this encounter and other current Medications Discontinued / Stopped on this date on 10/20/2019 Osteo Bi-Flex Joint Shield Oral Tablet Pr ovider: Diagnosis: Last Documented On 4 11:28AM By Clint Duerler ; [facility] Myrbetriq 25 MG Oral Tablet Extended Release 24 Hour Provider: Diagnosis: Last Documented On 4 11:28AM By Clint Rocha ; [facility] MiraLax Oral Powder Provider: Diagnosis: Last Documented On 4 11:28AM By Clint Rohca ; [facility] EQ Restore Plus Lubricant Eye 0.5% Ophthalmic Solution Provider: Diagnosis: Last Documented On 4 11:35AM By Clint Rocha ; [facility] Ipratropium Dennis 0.03% Nasal Solution Provider: Diagnosis: Last Documented On 4 11:28AM By Clint Rocha ; [facility] Calcium-Magnesium 100-50 MG Oral Tablet P rovider: Diagnosis: Last Documented On 4 11:28AM By Clint Rocha ; [facility] Current Medications (continue as prescribed) Colestipol HCl 5 GM Oral Packet 04/14/2024 Provider: Diagnosis: Last Documented On 4 11:25AM By Carla Hall ; [facility] Protonix 20 MG Oral Tablet Delayed Release 06/16/2022 Provider: Diagnosis: Last Documented On 3 4:00PM By Elif Chicas ; [facility] Flecainide Acetate 100 MG Oral Tablet 06/16/2022 Pro vider: Diagnosis: Last Documented On 3 4:01PM By Elif Chicas ; [facility] Metoprolol Succinate ER 25 M G Oral Tablet Extended Release 24 Hour 06/12/2022 Provider: Diagnosis: Last Documented On 3 4:00PM By Elif Chicas ; [facility] predniSONE 10 MG Oral Tablet 05/02/2022 Provider: FATOUMATA LESLIE MD Diagnosis: Last Documented On 3 4:00PM By Elif Chicas ; [facility] Lagevrio 200 MG Oral Capsule 04/22/2022 Provider: FATOUMATA LESLIE MD Diagnosis: Last Documented On 3 4:00PM By Elif Chicas ; [facility] Lagevrio 200 MG Oral Capsule 04/22/2022 Provider: FATOUMATA LESLIE MD Diagnosis: Last Documented On 3 4:00PM By Elif Chicas ; [facility] Mupirocin 2% External Ointment 04/16/2022 Provider: Eliseo Cuevas MD Diagnosis: three times a day Apply to n ostrils 3 time a day 5 days prior to surgery. Last Documented On 2 2:50PM By Gilda Kamara ; [facility] MegaRed Hector-3 Krill Oil 350 MG Oral Capsule 10/26/19 21 Provider: Diagnosis: Last Documented On 1 1:15PM By Betzaida Donald ; [facility] Sudafed 30 MG Oral Tablet 10/25/2020 Provider: Diagnosis: Last Documented On 1 1:15PM By Betzaida Donald ; [facility] Mucinex Allergy 180 MG Oral Tablet 10/25/2020 Provid er: Diagnosis: Last Documented On 1 1:14PM By Betzaida Donald ; [facility] Warfarin Sodium 7.5 MG Oral Tablet 10/17/2020 Provid er: Diagnosis: Last Documented On 1 2:43PM By Greer Kingston ; [facility] Ezetimibe 10 MG Oral Tablet 09/11/2020 Provider: FATOUMATA LESLIE MD Diagnosis: Last Documented On 1 1:13PM By Betzaida Donald ; [facility] Digoxin 125 MCG Oral Tablet 07/21/2020 Provider: Diagnosis: Last Documented On 1 2:44PM By Greer Kingston ; [facility] CoQ-10 10 MG Oral Capsule 10/20/2019 Provider: Diagnosis: Last Documented On 0 4:01PM By Greer Kingston ; [facility] D3-1000 25 MCG (1000 UT) Oral Capsule 10/20/2019 Pro vider: Diagnosis: Last Documented On 0 4:00PM By Greer Kingston ; [facility] Omeprazole 20 MG Oral Ta blet Delayed Release Disintegrating 10/20/2019 Provider: Diagnosis: Last Documented On 0 3:59PM By Greer Kingston ; [facility] Probiotic Maximum Strength Oral Capsule 10/20/2019 Provider: Diagnosis: Last Documented On 0 3:58PM By Greer Kingston ; [facility] Citalopram Hydrobromide 10 MG Oral Tablet 10/20/2019 Provider: Diagnosis: Last Documented On 0 3:56PM By Greer Kingston ; [facility] Flecainide Acetate 100 MG Oral Tablet 10/20/2019 Pro vider: Diagnosis: Last Documented On 0 3:55PM By Greer Kingston ; [facility] Past Medications on file oxyCODONE HCl 5 MG Oral Tablet 05/29/2022 - 06/03/2022 Provider: Eliseo ceja MD Diagnosis: 1-2 po q 4-6h Last Documented On 3 12:32PM By Hima Cuevas ; [facility] traMADol HCl 50 MG Oral Tablet 05/29/2022 - 06/03/2022 Provider: Eliseo ceja MD Diagnosis: 1-2 po q 4-6h Last Documented On 3 12:32PM By Hima Cuevas ; [facility] Lovenox 40 MG/0.4ML Injection Solution Prefilled Syringe 05/26/2022 - 05/30/2022 Provider: Eliseo ceja MD Diagnosis: 1 sub q injection 1 time day Last Documented On 3 8:35AM By Hima Cuevas ; [facility] Cefadroxil 500 MG Oral Capsule 05/21/2022 - 05/24/2022 Provider: Eliseo ceja MD Diagnosis: twice a day Last Documented On 3 12:08PM By Hima Cuevas ; [facility] Colace 100 MG Oral Capsule 05/21/2022 - 08/19/2022 Provider: Eliseo ceja MD Diagnosis: 1-2 tabs daily Last Documented On 3 12:08PM By Hima Cuevas ; [facility] traMADol HCl 50 MG Oral Tablet 05/21/2022 - 05/26/2022 Provider: Eliseo ceja MD Diagnosis: 1-2 po q 4-6h Last Documented On 3 12:08PM By Hima Cuevas ; [facility] Acetaminophen 500 MG Oral Tablet 05/21/2022 - 06/20/2022 Provider: Eliseo Cuevas MD Diagnosis: 2 three times a day Last Documented On 3 12:08PM By Hima Cuevas ; [facility] oxyCODONE HCl 5 MG Oral Tablet 05/21/2022 - 05/26/2022 Provider: Eliseo ceja MD Diagnosis: 1-2 po q 4-6h Last Documented On 3 12:08PM By Hima Cuevas ; [facility] Ondansetron HCl 4 MG Oral Tablet 05/21/2022 - 05/26/2022 Provider: Eliseo Cuevas MD Diagnosis: [id number] Last Documented On 3 12:08PM By Hima Cuevas ; [facility] Meloxicam 15 MG Oral Tablet 05/21/2022 - 06/20/2022 Provider: Eliseo ceja MD Diagnosis: once a day Last Documented On 3 12:08PM By Hima Cuevas ; [facility] HYDROcodone-Acetaminophen 7. 5-325 MG Oral Tablet 10/25/2020 - 11/14/2020 Provider: Brandon Wilks MD Diagnosis: twice a day Last Documented On 1 12:08PM By Dr. Wilks ; [facility] [place] 5-325MG Oral Tablet 12/23/2018 - 01/22/2019 Provider: Eliseo ceja MD Diagnosis: 1-2 po q6h prn pain Last Documented On 9 3:09PM By Reanna Gutierrez ; [facility] Acetaminophen 500MG Oral Tablet 12/08/2018 - 01/07/2019 Provider: Eliseo Cuevas MD Diagnosis: 2 three times a day FOR BACON RGERY DO NOT FILL UNTIL 12/14/18 Last Documented On 9 4:10PM By Reanna Gutierrez ; [facility] traMADol HCl 50MG Oral Tablet 12/08/2018 - 12/13/2018 Provider: Eliseo ceja MD Diagnosis: 1-2 po q6h prn pain FOR BACON RGERY DO NOT FILL UNTIL 12/14/18 Last Documented On 9 4:06PM By Reanna Gutierrez ; [facility] Neurontin 300MG Oral Capsule 12/08/2018 - 03/08/2019 Provider: Eliseo ceja MD Diagnosis: 1 every bedtime FOR SURGER Y DO NOT FILL UNTIL 12/14/18 Last Documented On 9 4:05PM By Reanna Gutierrez ; [facility] Dilaudid 2MG Oral Tablet 12/08/2018 - 12/10/2018 Provi gaby: Eliseo Cuevas MD Diagnosis: 1-2 po q6h prn pain (RESCUE PAIN) FOR SURGERY DO NOT FILL UNTIL 12/14/18 Last Documented On 9 4:05PM By Reanna Gutierrez ; [facility] Colace 100MG Oral Capsule 12/08/2018 - 03/08/2019 Provider: Eliseo ceja MD Diagnosis: 1-2 tabs daily FOR SURGERY DO NOT FILL UNTIL 12/14/18 Last Documented On 9 4:10PM By Reanna Gutierrez ; [facility] Mupirocin 2% External Ointment 11/09/2018 - 11/14/2018 Provider: Eliseo ceja MD Diagnosis: Apply to nostrils 3 time a d ay 5 days prior to surgery. Last Documented On 9 10:40AM By Gilda Kamara ; [facility] [place] 5-325MG Oral Tablet 12/24/2017 - 12/31/2017 Prov ider: Brandon Wilks MD Diagnosis: 1-2 po q 4-6h PRN Last Documented On 8 5:31PM By Dr. Wilks ; [facility] [place] 7.5-325 MG OR TABS 12/24/2017 - 01/03/2018 Provi gaby: Brandon Wilks MD Diagnosis: Last Documented On 8 11:35AM By Marcelle Croft ; [facility] Voltaren Gel 1% External 10/14/2017 - 12/13/2017 Provi gaby: Alanna Jensen MD Diagnosis: use as directed Last Documented On 8 10:09AM By Sayra Evans ; [facility] Lovenox 40MG/0.4ML Subcutaneous Solution 05/06/2017 - 05/26/2017 Provider: Alanna castaneda MD Diagnosis: use as directed/1 INJECTION PER DAY FOR 5 DAYS PRIOR TO PROCEDER & 1 INJECTION PER DAY FOR 5 DAYS AFTER PROCERDER/ Last Documented On 8 4:29PM By Sayra Evans ; [facility] [place] 5-325 MG Tablet 10/29/2016 - 11/05/2016 Provider : Alanna Jensen MD Diagnosis: 1-2 po q 4-6h PRN Last Documented On 7 11:55AM By Camryn Paez ; [facility] Medrol 4 MG Tablet Therapy Pack 02/14/2016 - 02/20/2016 Provider: Alanna chin MD Diagnosis: use as directed by pharmacy Last Documented On 6 3:16PM By Heather Langley ; [facility] [place] 5-325 MG Tablet 12/03/2015 - 12/18/2015 Provider : Alanna Jensen MD Diagnosis: 1-2 po q 4-6h Last Documented On 6 1:26PM By Heather Langley ; [facility] [place] 7.5-325 MG Tablet 11/16/2015 - 12/16/2015 Provid er: Alanna Jensen MD Diagnosis: 1 every 4 - 6 hours PO PRN Last Documented On 6 2:09PM By Lani Marquez ; [facility] Voltaren 1% TD GEL 01/31/2013 - 03/02/2013 Provider: Alanna Jensen MD Diagnosis: DEGENERATIVE MIKEY NT DISEASE KNEE apply 4 grams to affected ar ea 4 times a day//ks Last Documented On 3 2:16PM By Ann Marie Sutherland ; [facility] Lortab 10-500 MG OR TABS 09/14/2012 - 09/21/2012 Provi gaby: Alanna Jensen MD Diagnosis: [id number] [facility] jsb/df Last Documented On 3 8:56AM By Jose F Gutierrez ; [facility] Lortab 10-500 MG OR TABS 08/06/2012 - 08/13/2012 Provi gaby: Alanna Jensen MD Diagnosis: [phone] [employer] jsb/df Last Documented On 3 1:59PM By Jose F Gutierrez ; [facility] Lortab 10-500 MG OR TABS 07/09/2012 - 07/16/2012 Provi gaby: Alanna Jensen MD Diagnosis: [id number] [facility] jsb Last Documented On 3 12:36PM By Jose F Gutierrez ; [facility] Lortab 10-500 MG OR TABS 07/01/2012 - 07/08/2012 Provi gaby: Alanna Jensen MD Diagnosis: [phone] [facility] df Last Documented On 3 1:53PM By Jose F Gutierrez ; [facility] Xarelto 10 MG OR TABS 06/14/2012 - 07/05/2012 Provider : Alanna Jensen MD Diagnosis: sx on 06-15-12kw Last Documented On 3 1:31PM By Danielle Dobson ; [facility] Lortab 10-500 MG OR TABS 06/14/2012 - 06/21/2012 Provi gaby: Alanna Jensen MD Diagnosis: sx on 06-15-12kw Last Documented On 3 1:31PM By Danielle Dobson ; [facility] Medications Administered Includes: Administered [...] On 4 11:35AM ; [facility] Not a current smoker. 04/14/2024 Last Documented On 4 11:35AM ; [facility] Tobacco non-user 04/14/2024 Last Documented On 4 11:35AM ; [facility] Alcohol use 10/25/2020 Last Documented On 4 11:35AM ; [facility] Not using drugs 10/25/2020 Last Documented On 4 11:35AM ; [facility] Recent change in diet 10/25/2020 Last Documented On 4 11:35AM ; [facility] Non-smoker 10/17/2020 Last Documented On 4 11:35AM ; [facility] No caffeine use 10/17/2020 Last Documented On 4 11:35AM ; [facility] Not a current smoker. 10/17/2020 Last Documented On 4 11:35AM ; [facility] No tobacco use 10/31/2019 Last Documented On 4 11:35AM ; [facility] Not a current smoker 10/31/2019 Last Documented On 4 11:35AM ; [facility] Not exercising regularly 10/31/2019 Last Documented On 4 11:35AM ; [facility] Smoking status : Never smoker 10/31/2019 Last Documented On 4 11:35AM ; [facility] Sex - Female 09/12/2024 Last Documented On 5 9:46AM ; [facility] Procedures and Surgical History Surgical History Last Updated History of back surgery 11/2019-Kypho T1 2 10/17/2020 Last Documented On 4 11:35AM ; [facility] History of heart surgery ablation 2017 0 10/31/2019 Last Documented On 4 11:35AM ; [facility] History of total hip replacement left hi p 201810/31/2019 Last Documented On 4 11:35AM ; [facility] History of total knee arthroplasty right knee 2013 10/31/2019 Last Documented On 4 11:35AM ; [facility] History of hysterectomy 10/16/2014 Last Documented On 4 11:35AM ; [facility] Medical History Includes: Medical History addressed during this encounter Description Last Updated Recent immunization for flu 02/01/2022 1 06/15/2023 Last Documented On 4 11:35AM ; [facility] Recent immunization for pneumococcal pne umonia 201304/14/2024 Last Documented On 4 11:35AM ; [facility] History of Irregular Heartbeat A-fib; ep isode after TKA- cadiovert needed 06/16/2022 Last Documented On 4 11:35AM ; [facility] blood transfusions 10/25/2020 Last Documented On 4 11:35AM ; [facility] Arthritis 10/25/2020 Last Documented On 4 11:35AM ; [facility] Heartburn / Acid Reflux 10/25/2020 Last Documented On 4 11:35AM ; [facility] History of Blood Clots 10/25/2020 Last Documented On 4 11:35AM ; [facility] History of Blood Transfusion 10/25/2020 Last Documented On 4 11:35AM ; [facility] History of Cancer 10/25/2020 Last Documented On 4 11:35AM ; [facility] History of Fractures 10/25/2020 Last Documented On 4 11:35AM ; [facility] History of heart disease 10/25/2020 Last Documented On 4 11:35AM ; [facility] Hypertension 10/25/2020 Last Documented On 4 11:35AM ; [facility] Irregular Heartbeat 10/25/2020 Last Documented On 4 11:35AM ; [facility] Past Surgical History: wrist repair ~hand sx ~gallstone sx 2011 ~mastectomy and reconstruction ~colonoscopy 2018 10/25/2020 Last Documented On 4 11:35AM ; [facility] Previous Fractures 10/25/2020 Last Documented On 4 11:35AM ; [facility] Sleep Apnea 10/25/2020 Last Documented On 4 11:35AM ; [facility] Use of CPAP 10/25/2020 Last Documented On 4 11:35AM ; [facility] Back surgery 12/15/2017 L4-5 Posterior Decompression and Fusion @ [facility] ~11/07/2019 T12 Kyphyoplasty 10/25/2020 Last Documented On 4 11:35AM ; [facility] Heart surgery pacemaker 12/2019 ~Afib ab lation 10/25/2020 Last Documented On 4 11:35AM ; [facility] History of Gallbladder 10/25/2020 Last Documented On 4 11:35AM ; [facility] Hysterectomy 10/25/2020 Last Documented On 4 11:35AM ; [facility] Total hip replacement 12/2018-Left hip 0 10/17/2020 Last Documented On 4 11:35AM ; [facility] A previous fracture 10/31/2019 Last Documented On 4 11:35AM ; [facility] Gallbladder disease 2018 10/31/2019 Last Documented On 4 11:35AM ; [facility] History of diverticulitis of colon 11/15 Last Documented On 4 11:35AM ; [facility] History of osteoporosis 11/16/2015 Last Documented On 4 11:35AM ; [facility] A history of cancer 10/16/2014 Last Documented On 4 11:35AM ; [facility] Arthritic joint problems 10/16/2014 Last Documented On 4 11:35AM ; [facility] Family History Includes: Family History addressed during this encounter Description Last Updated Family history of cancer mother ~father 11/16/2015 Last Documented On 4 11:35AM ; [facility] Family history of diabetes mellitus moth er 11/16/2015 Last Documented On 4 11:35AM ; [facility] Family history of heart disease mother ~ father 11/16/2015 Last Documented On 4 11:35AM ; [facility] Family history of hypertension mother ~f ather 11/16/2015 Last Documented On 4 11:35AM ; [facility] Family history of osteoporosis mother Last Documented On 4 11:35AM ; [facility] Family history of rheumatoid arthritis m other 11/16/2015 Last Documented On 4 11:35AM ; [facility] Family history of thromboembolic disease mother 11/16/2015 Last Documented On 4 11:35AM ; [facility] Maternal history of hypertension 015 Last Documented On 4 11:35AM ; [facility] Maternal history of osteoporosis 015 Last Documented On 4 11:35AM ; [facility] Review of Systems Includes: Review of Systems from this encounter No Review of Systems Recorded Physical Exam Includes: Physical Exam from this encounter Allergies Includes: Active Allergies Substance Type Reaction Onset Date Resolved Date Statu s Sulfa Antibiotics Allergy 06/09/2017 A ctive Last Documented On 4 12:09PM ; [facility] Statins Support Allergy 06/09/2017 Act citlalli Last Documented On 4 12:09PM ; [facility] Percocet Allergy 03/10/2012 Active Last Documented On 4 12:09PM ; [facility] Bactrim Allergy 11/16/2015 Active Last Documented On 4 12:09PM ; [facility] 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 Name (Identifier) Role/Relation Location/Telecom Last Documented By FATOUMATA LESLIE MD ([id number]) Primary care physician (occupation) [address] [facility] [address], [place], [place], , [address] tel: Last Documented On 09/12/2024 9:46AM ; [facility] Alanna Jensen MD ([id number]) Assigned practitioner (occupation) tel:[phone] Last Documented On 09/12/2024 9:46AM ; [facility] Encounters Encounter Provider Location (Healthcare Service Location) Date Check-In Time Check-Out Time Diagnosis Encounter Disposition Follow Up Ceci Santos APRN [facility] 2023 11:24AM 12:17PM Payer Includes: Active Insurance Policies Plan Name (Payer ID) Coverage Type Member ID Group # Subscriber (ID) Relationship Effective Dates 1 - Medicare Part B [facility] ([id number]) [id number] Luz Skaggs Lee 04/03/2007 - Unknown Last Documented On 9 10:11AM ; [facility], [facility] [address] - [facility] ([id number]) [phone] PLAN F Luz Pantoja Skaggs Self 05/04/19 12 - Unknown Last Documented On 3 7:45AM ; [facility] Clinical Notes Includes: Clinical Notes from this encounter * Progress note Date Encounter Last Documented by 03/03/2024 Follow Up Last documented on 03/10/2024; 4:11 PM, Ceci Santos APRN; [facility], [facility] Active Problems & Conditions - Joint Pain [...] Capsule 5 days, 0 refills - MegaRed Hector-3 Krill Oil 350 MG Oral Capsule once [...] refills - Sudafed 30 MG Oral Tablet [id number] 0 days, 0 refills - Warfarin Sodium [...] Blood transfusions. Surgical: - Heart surgery ablation 2017 - Heart surgery pacemaker 12/2019 Afib ablation - Past Surgical History: wrist repair hand sx gallstone sx 2011 mastectomy and reconstruction colonoscopy 2017 - Hysterectomy - Hysterectomy - History of Gallbladder - Previous Fractures - Back surgery 11/2019-Kypho T12 - Back surgery 12/15/2017 L4-5 Posterior Decompression and Fusion @ [facility] 11/07/2019 T12 Kyphyoplasty - Total hip replacement [...] Care Team - FATOUMATA LESLIE MD - CLERICAL TRANSCRIBER
--- OUTSIDE RECORDS SUMMARY | 2025-05-01 09:38 | XMS_ITS | Data Portability ---
Author Organization [facility] Address [address] [place] [address] Care Team Providers Care Clinical Review Specialist Name Role Phone FATOUMATA LESLIE Primary Care Provider NANCY GARCIA Public Affairs Officer BRIAN LANDRY Primary Care Provider SPENCER EUBANKS Program Manager Rn [phone] Assessment No assessment recorded. Plan of Treatment Reminders Order Date Submit Date Provider Last Modified By Organization Details Last Modified Time Details Appointments None recorded. Lab None recorded. Referral None recorded. Procedures None recorded. Surgeries None recorded. Imaging None recorded. Medication Orders cetirizine 10 mg tablet [address] [facility], [address], [address], 2 16:54:49 Mucinex 600 mg tablet, extended release 2021 022 [facility], [address], [address], 2 14:20:27 Nexium 40 mg capsule,del ayed release [address] [facility], [address], [address], 09:41:51 Patient TargetsNo targets recorded. Patient Instructions Encounter Date Encounter Id Patient Instructions Last Modified By Organization Details Last Modified Time 01/01/2021 [id number] 1. D/C Sudafed 2 . Schedule modified barium Swallow-I am hopeful this gives us a clue on why she is having more difficulty with her swallowing 3. F/u with Barium Swallow results rola Not available 01/01/2021 17:32:04 01/22/2021 [id number] 1. Modified barium swallow results reviewed with patient-normal 2. RX-Nexium 40mg- take 1 po QAM 3. Thyroid ultrasound ordered 4. We will schedule speech therapy for hoarseness/swallo wing issues- [facility] 5. F/u with thyroid ultrasound results, or per speech therapy recommendations. rola Not available 01/22/2021 17:04:45 10/08/2021 [id number] 1. Laryngoscopy performed ; clinical photos obtained. [...] recommendations. rola Not available 10/08/2021 17:10:26 03/04/2022 [id number] 1. F/u in 6 months or sooner if concerns arise. [email or web address] Not available 03/04/2022 14:35:46 09/02/2022 [id number] 1. Continue usin g Ipratropium [place] Nasal spray, Cetirizine as needed 2. Continue seeing Dr. Eubanks for GI treatment. 3. F/u prn [email or web address] Not available 09/02/2022 15:39:21 Reason for Referral None Reported. Results Created Date Observation Date Name Description Value Unit Range Abnormal Flag Note LastModifiedBy Organization Detail LastModifiedTime 01/23/20 21 01/18/2021 ANT, modif ashley moura study No observ ation record ed. [facility] Scheduling [address], [place], [address], 01/23/2021 16:52:13 02/01/20 21 01/31/2021 US, thyro id No observ ation record ed. lenny [facility] [address], [place], [address], 02/04/2021 09:57:14 Result Notes None recorded. Problems Name Problem SNOMED Code Status Onset Date Resolution Date Notes Provider Name and Address Organization Details Recorded Time Diverticu litis of gastroint estinal tract 365702760 Active 2015 From Automated Load;Prov ider: Radha Martin;St atus: Active Not Available [facility] 6 01:23:10 Diverticu lar disease of colon 354142846 Active 2015 From Automated Load;Prov ider: Radha Martin;St atus: Active Not Available [facility] 6 01:23:10 Tear film insuffici ency 32341414 Active 2015 From Automated Load;Prov ider: Nancy Garcia;S tatus: Active Not Available [facility] 7 06:24:30 Abscess of intestine co-occurr ent and due to diverticu lar disease 32529849252 07 Active 2015 From Automated Load;Prov ider: Radha Martin;St atus: Active Not Available [facility] 7 06:34:09 Bilateral pseudopha dinesh 41318840016 362234 Active 2016 NANCY GARCIA MD [address] [place] [address], [phone] , [facility] 7 12:02:06 Problem Notes None recorded. Procedures Surgical History Date Name Laterality Status Provider Name and Address Organization Details Recorded Time 10/09/19 22 Laryngoscopy Flex completed BETINA GAMINO III, MD [address] [place] [address], [phone], [facility] 10/08/2021 17:10:04 02/07/20 20 Laryngoscopy Flex completed Agustina Veliz [facility] 02/07/2020 14:52:26 12/03/19 20 Pacemaker/Cardiac Implant completed Candice Lake [facility] 01/01/2021 15:26:34 Cataract Surgery completed Iva Degroot [facility] 03/05/2017 11:06:06 Removal of tonsils completed Iva Degroot [facility] 03/05/2017 11:04:33 excision of bilateral breasts completed Cheryl Drummond [facility] 02/07/2020 14:19:08 Nipple/areola reconstruction completed Cheryl Drummond [facility] 02/07/2020 14:19:25 Back Surgery completed Cheryl Drummond [facility] 02/07/2020 14:20:16 Pacemaker/Cardiac Implant completed Cheryl Drummond [facility] 02/07/2020 14:27:55 Imaging Results None recorded. Procedure Notes None recorded. Medical Equipment None Reported. Allergies Allergen ID Allergen Name Allergen Category Reaction Reaction Severity Criticality Documentation Date Start Date Code Code System Note Provider Name and Address Organization Details Recorded Time Bactrim medicatio n Not available Not available Not available 03/27/20162015 22774 9 RxNorm Comme nt: Creat ed By: Marce Zamorano astrid Date: 2015 8:15: 17 AM; Not Available [facility] 6 12:17:21 acetamino phen / oxycodone medicatio n Not available Not available Not available 03/27/20162014 09665 3 RxNorm Sever ity: Sever e; Comme nt: Head ache; Creat ed By: Neha Zamorano astrid Date: 2014 1:28: 29 PM; Not Available [facility] 6 12:17:21 125734 Substance with sulfonami de structure and antibacte rial mechanism of action (substanc e) medicatio n Not available Not available Not available 03/05/2017 43250 8003 [facility]ED [facility] 7 11:00:45 596777 Pravachol medicatio n Not available Not available Not available 02/07/2020 67846 3 RxNorm [facility] 0 14:18:35 Medications Name Sig Start Date [...] bromide 21 mcg (0.03 %) nasal spray [place] 2 sprays twice a day by intranas [...] 0 Not Available Not Available Not Available [place]-3 Daily 05/06 completed Frequenc y: daily;Me dication [...] weight Body temperature Heart rate Oxygen saturation Provider Name and Address Organization Details Last Updated DateTime 3 170.18 cm 26.2 kg/m2 55304.0 3 g 97.2 [degF] 57 /min 93 % Stacy Garcia [facility] 3 15:13:45 Date Recorded Body height Body mass index (BMI) Body weight Body temperature Heart rate Oxygen saturation Systolic And Diastolic Provider Name and Address Organization Details Last Updated DateTime 2 170.18 cm 26.8 kg/m2 01828.3 g 97.4 [degF] 81 /min 98 % 144/73 mm[Hg] Josephine Perrin [facility] 2 15:43:16 Date Recorded Body height Body mass index (BMI) Body weight Body temperature Heart rate Systolic And Diastolic Provider Name and Address Organization Details Last Updated DateTime 1 170.18 cm 28 kg/m2 10509.2 4 g 97.3 [degF] 107 /min 134/68 mm[Hg] Candice Samaonnchard [facility] 1 15:17:08 Date Recorded Body height Body mass index (BMI) Body weight Body temperature Heart rate Systolic And Diastolic Provider Name and Address Organization Details Last Updated DateTime 1 170.18 cm 27.7 kg/m2 44035.5 5 g 97.2 [degF] 97 /min 137/74 mm[Hg] Sherry Amaya [facility] 1 14:06:32 Date Recorded Body height Body mass index (BMI) Body weight Body temperature Heart rate Oxygen saturation Systolic And Diastolic Provider Name and Address Organization Details Last Updated DateTime 2 170.18 cm 26.5 kg/m2 47303.9 1 g 97.5 [degF] 73 /min 95 % 136/74 mm[Hg] Stacy Garcia [facility] 2 14:22:53 Social History Question Answer Notes LastModified by Organizat ion Details LastModified Time Tobacco Smoking Status [facility]oker [facility] 03/05/2017 11:04:03 What Was The Date Of Your Most Recent Tobacco Screening? 03/05/2017 Information n ot available 06/21/2019 Sex: Unknown Functional Status Question Answer Note LastModified by Organization D etails LastModified Time What is your level of alcohol consumption? None [email or web address] Information not available 02/07/2020 Mental Status None recorded. Family History Relationship Description Onset Age of this Age Resolved Age Notes LastModified by Organization Details LastModified Time Mother Cataract [email or web address] Not availab le 03/05/2017 11:02:47 Mother Hypertensive disorder [email or web address] Not available 03/05 11:03:03 Mother Heart disease [email or web address] Not available 03/05 11:03:47 Mother Family history of malignant neoplasm [email or web address] Not available 03/05 11:03:56 Father Cataract Not availab le 03/05/2017 11:02:47 Father Age related macular degeneration Not available 11:02:52 Father History of thyroid disorder [email or web address] Not available 03/05 11:03:23 Father Heart disease Not available 03/05 11:03:47 Medical History Condition Response Glasses/Contacts Y Gynecological HistoryNo gynecological history recorded. Obstetrics History GPAL:G 0 P 0 0 0 0 Immunizations Vaccine Type Date Status Note Provider Nam e and Address Organization Details Recorded Time COVID-19, mRNA, LNP-S, PF, 30 mcg/0.3 mL dose 05/09/2020 completed [facility] 09/02/2022 15:12:38 COVID-19, mRNA, LNP-S, PF, 30 mcg/0.3 mL dose 06/11/2020 completed [facility] 09/02/2022 15:12:38 Influenza, high-dose, quadrivalent, PF 01/29/2021 completed [facility] 09/02/2022 15:12:37 COVID-19, mRNA, LNP-S, PF, 100 mcg/0.5mL dose or 50 mcg/0.25mL dose 05/09/2020 completed [facility] 09/02/2022 15:12:37 COVID-19, mRNA, LNP-S, PF, 100 mcg/0.5mL dose or 50 mcg/0.25mL dose 06/11/2020 completed [facility] 09/02/2022 15:12:37 COVID-19, mRNA, LNP-S, PF, 100 mcg/0.5mL dose or 50 mcg/0.25mL dose 03/13/2021 completed [facility] 09/02/2022 15:12:38 Past Encounters Encounter ID Performer Location Encounter Start Date Encounter Closed Date Diagnosis/Indication Diagnosis SNOMED-CT Code Diagnosis ICD10 Code Diagnosis IMO Codes Diagnosis Note [id number] NANCY GARCIA MD OPHTHALMO [address] ,[address] [address] 03/05/2017 10:43:09 03/09/2017 07:34:36 Tear film insufficiency 31024207 H04.123 continue ats and wcs.pt not interested in further tx for now Bilateral pseudophakia 3324199986 3422404 Z96.1 stable, obs. defers mrx. Posterior vitreous detachment 116517502 H43.819 Discussed vitreous detachment with the patient. I discussed the patient monitoring for increasing flashes/fl oater/beaver ge in vision and to call immediatel y for any change in the vision. [id number] NANCY GARCIA MD [facility] [address] [place] [address] ,[address] [place] [address] 05/06/2019 14:10:48 05/06/2019 16:15:20 Pseudophakia 25854865 Z96.1 stable continue mr todya Dry eyes 022920550 H04.1 29 rec switch to xiidra bid ou art tears prn hot compresses prn 1 year adn prn. 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 Laryngopha ryngeal reflux 295117805 K21.9 Posterior rhinorrhea 758 24650 R09.82 Chronic rhinitis 2551647 6 J31.0 Heart disease 63084557 I 51.9 - Patient has a pacemaker [id number] MD KARINA JAIMES III ENT [address] [place] [address] 01/01/2021 15:08:39 01/01/2021 16:14:59 Allergic rhinitis 86651986 J30.9 Neck pain 83194059 M54.2 Posterior rhinorrhea 758 77362 R09.82 Clearing t hroat - hawking 649098766 R05 Chronic hoarseness 66441 60400 105 R49.0 Stiff neck 951239639 M43 .6 Atrial fibrillation 4943 6004 I48.91 Laryngopha ryngeal reflux 086527538 K21.9 [id number] MD KARINA JAIMES III ENT [address] [place] [address] 01/22/2021 13:59:22 01/23/2021 08:00:54 Neck pain 26075726 M54.2 Posterior rhinorrhea 758 43463 R09.82 Clearing t hroat - hawking 429763206 R05 Chronic hoarseness 59860 81704 105 R49.0 Laryngopha ryngeal reflux 857320416 K21.9 Atrial fibrillation 4943 6004 I48.91 Dysphagia 65522713 R13.1 0 Family his tory of Thyroid disorder 996322790 Z83.49 Choking sensation 101890 009 R09.89 [id number] BETINA GAMINO III, MD [place] [facility] [address] [address] 10/08/2021 15:26:57 10/08/2021 16:00:41 Posterior rhinorrhea 86822902 R09.82 Clearing t hroat - hawking 632482017 R05.9 Chronic hoarseness 42058 97346 105 R49.0 Dysphagia 10215543 R13.1 0 Laryngopha ryngeal reflux 639626560 K21.9 Choking sensation 537298 009 R09.89 Neck pain 24104914 M54.2 Family his tory of Thyroid disorder 833174657 Z83.49 Atrial fibrillation 4943 6004 I48.91 Atrophy of vocal cord 42 1113873 J38.3 Dysphonia 38133544 R49.9 - Muscle tension Allergic rhinitis 897863 04 J30.9 [id number] MD KARINA JAIMES III [facility] [address] [place] [address] 03/04/2022 14:13:11 03/04/2022 14:41:27 Atrophy of vocal cord 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 03/04/2022. Dysphonia 87879752 R49.9 - Muscle tension has improved with the speech therapy interventi on. 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 Please exercise will help in this endeavor. I did mention possibilit y of vocal cord injections with a filler to provide better closure for her. Posterior rhinorrhea 758 14089 R09.82 Clearing t hroat - hawking 186593005 R05.9 Chronic hoarseness 12293 14646 105 R49.0 Dysphagia 55061113 R13.1 0 Laryngopha ryngeal reflux 079496428 K21.9 -Much improved with continued use of Omeprazole . 03/04/2022. Choking sensation 850082 009 R09.89 Neck pain 17215676 M54.2 Family his tory of Thyroid disorder 501455524 Z83.49 Atrial fibrillation 4943 6004 I48.91 Allergic rhinitis 400085 04 J30.9 [id number] MD KARINA JAIMES III [facility] [address] [place] [address] 09/02/2022 15:05:01 09/02/2022 16:28:34 Dysphonia 35544459 R49.9 - Muscle tension has improved with the speech therapy interventi on. 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 Please exercise will help in this endeavor. I did mention possibilit y of vocal cord injections with a filler to provide better closure for her. Chronic hoarseness 81487 40134 105 R49.0 - improved after speech therapy Atrophy of vocal cord 42 8190292 J38.3 -Much improved. 03/04/2022. Laryngopha ryngeal reflux 882108441 K21.9 -Much improved with continued use of Omeprazole . 03/04/2022. 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 Cough 44355520 R05.9 Health Concerns Section Related Observation LastModified by Organization Detai ls LastModified Time None Recorded Concern Status LastModified by Organization Details LastModified Time None Recorded Advance Directives Directive None Recorded Payers Insurance Date Sequence Insurance Name Policy Number Policy [place] Covered Member ID [place] Member ID Guarantor Name 09/01/2022 2 [employer] [place] (MEDICARE SUPPLEMENT) Luz Skaggs [id number] Luz Skaggs 09/02/2022 1 [place] Luz Skaggs [id number] Luz Skaggs Notes Date Note Type Note Provider Name [...] her 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. BETINA GAMINO III, MD [address] [place] [address], [phone], [facility] 01/01/2021 17:32:20 01/22/2021 text/html Luz returns today in follow up of her modified barium swallow results. Study showed a grossly functional oropharyngeal swallow. No penetration with aspiration with any consistency tested. Very mild pharyngeal coating/residue across consistencies, but cleared with spontaneous subsequent swallows. From SALES PROGRAM MANAGER/pharyngeal standpoint, patient is safe to continue regular [...] thyroid ultrasound obtained. BETINA GAMINO III, MD [address] [place] [address], [phone], [place] [facility] 01/22/2021 17:04:58 10/08/2021 text/html Luz returns today in follow up of her throat. Prior modified barium swallow study showed a grossly functional oropharyngeal swallow. No penetration with aspiration with any consistency tested. Very mild pharyngeal coating/residue across consistencies, but cleared with spontaneous subsequent swallows. From SALES PROGRAM MANAGER/pharyngeal standpoint, patient is safe to continue regular [...] ultrasound was recommended. BETINA GAMINO III, [place] [facility] [place], [address], [facility] 10/08/2021 17:10:55 03/04/2022 text/html Luz is visiting with us today for a f/u on her throat. Luz states that she has completed 5 speech therapy treatments with mild improvement on her symptoms. She still experiences occasional raspiness. Luz has continued to use medication that treats symptoms of acid reflux with some improvement. She does have days where acid reflux is worse than others. BETINA GAMINO III, [place], [address], [facility] 03/04/2022 14:50:14 09/02/2022 text/html Luz returns today [...] surgery which was performed in May 2022. MD [place] [place], [address], [facility] 09/02/2022 16:40:18 OBGyn Episode No OBEpisode recorded.
--- OUTSIDE RECORDS SUMMARY | 2025-05-01 09:38 | XMS_ITS | Clinical Summary ---
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 [...] Encounters Date Type Department Care Team Description 04/24/2025 Results Follow-Up [facility] RHEUM[facility]OLOG[facility] 330 [facility] [address] [place] [address] David Bernstein MD 04/21/2025 Anticoagulation Visit [facility] [address] [facility] [address] [place] [address] Claudia Bauer, PharmD 04/14/2025 Anticoagulation Visit [facility] [address] [facility] [address] [place] [address] Claudia Bauer, PharmD 04/07/2025 Anticoagulation Visit [facility] [address] [facility] [address] [place] [address] Nuzhat Melvin RPH 03/29/2025 Anticoagulation Visit [facility] [address] [facility] [address] [place] [address] Claudia Bauer, PharmD 03/28/2025 Telephone [facility] [address] [facility] [address] [place] [address] Karen Mace, Diesel Engine Pipe Fitter 03/24/2025 Anticoagulation Visit [facility] [address] [facility] [address] [place] [address] Claudia Bauer, PharmD 03/17/2025 Anticoagulation Visit [facility] 17[address] [facility] [address] [place] [address] Karen Mace, Diesel Engine Pipe Fitter 03/14/2025 Anticoagulation Visit [facility] [address] [facility] [address] [place] [address] Claudia Bauer, PharmD 03/14/2025 Telephone [facility] [address] [facility] [address] [place] [address] Karen Mace, Diesel Engine Pipe Fitter 03/10/2025 Anticoagulation Visit [facility] [address] [facility] [address] [place] [address] Claudia Bauer, PharmD 03/07/2025 Refill [facility] [address] [facility] [address] [place] [address] Claudia Bauer, PharmD 03/07/2025 Refill [facility] CARD[facility] [address] [facility] [address] [place] [address] Wojciech Flores MD Med Refill; [facility]EDAR-[facility] REFILL 03/06/2025 Anticoagulation Visit [facility] [address] [facility] [address] [place] [address] Claudia Bauer, PharmD 03/02/2025 Results Follow-Up [facility] CANCER RISK ASSESSMENT [address] [place] [address] Dee Dee Ivan 02/28/2025 10:46 AM EDT - 02/28/2025 11:59 PM EDT Hospital Encounter [facility] [place] [address] Ferny Gentile MD Other screening mammogram Discharge Disposition: Home or Self Care 02/28/2025 Travel 02/24/2025 Anticoagulation Visit [facility] [address] [facility] [address] [place] [address] Dayron Diallo, Diesel Engine Pipe Fitter 02/21/2025 10:45 AM EDT Office Visit [facility] [address] [facility] [address] [place] [address] Sorin Kearney PA-C 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); Paroxysmal 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; snf current use of antiarrhythmic medical therapy; PVC (premature ventricular contraction); Presence of cardiac pacemaker 02/21/2025 Travel 02/21/2025 Telephone [facility] [address] [facility] [address] [place] [address] Wojciech Flores MD Medical Clearance 02/21/2025 Telephone [facility] [address] [facility] [address] [place] [address] Karen Mace, Diesel Engine Pipe Fitter 02/17/2025 Anticoagulation Visit [facility] [address] [facility] [address] [place] [address] Karen Mace, Diesel Engine Pipe Fitter 02/13/2025 Refill [facility] [address] [facility] [address] [place] [address] Claudia Bauer, PharmD 02/10/2025 Telephone [facility] [address] [facility] [address] [place] [address] Dayron Diallo Diesel Engine Pipe Fitter 02/08/2025 Anticoagulation Visit [facility] 17[address] [facility] [address] [place] [address] Claudia Bauer, PharmD 02/07/2025 Telephone [facility] 1720 [facility] [address] [place] [address] Dayron Diallo, Diesel Engine Pipe Fitter 02/03/2025 Anticoagulation Visit [facility] [address] [facility] [address] [place] [address] Dayron Diallo, Diesel Engine Pipe Fitter 02/02/2025 Telephone [facility] RHEUMATOLOGY [address] [address] David Bernstein MD from Last 3 Months Immunizations Immunization Administration Dates Next Due COVID-19 (Authernative) Purple Cap Monovalent 06/11/19,05/09/2020 Fluzone High-Dose 65+yrs [...] [facility] [address] [place] [address] David Bernstein MD [address] [place] [address] 10/03/2025 2:45 PM EDT Office Visit [facility] [address] [facility] [address] [place] [address] Yon Govea MD [address] [facility] [address] [place], [place] [address] 06/14/2026 1:30 PM EST Office Visit [facility] CARDIOLOG[facility] [address] [place] [address] [address] Wojciech Flores MD [address] [facility] [address] [place], [place] [id number] Health Maintenance Due Date Last Done Comments [...] Vaccine (2024-2 6 season) 2025 03/13/2021, 06/11/2020, 06/11/2020, Additional history exists COLONOSCOPY 02/14/2032 02/13/2022, 02/01, 07/13/2017, Additional history exists COLORECTAL CANCER SCREENING 02/14/2032 MAMMOGRAM Discontinued 03/02/2025, 02/02, 02/26/2024, Additional history exists Medical Devices Implanted Type Area Three Dimensional Art Instructor Device Identifier Shelf Expiration Date Model / Serial / Lot Ld Pm Tendril Sts 6f52cm [id number] - [id number] - [id number] Implanted:Qty: 1 on 12/14/2019 by Barry Hennessy MD at [facility] Lead [employer] 10/01/[id number] / [id number] / [id number] Ld Pm Tendril Sts 6f46cm [id number] - [id number] - [id number] Implanted:Qty: 1 on 12/14/2019 by Barry Hennessy MD at [facility] Lead [employer] 10/01/[id number] / [id number] / [id number] Gen Pm Assurity Mri Dr Garcia [id number] - [id number] - [id number] Implanted:Qty: 1 on 12/14/2019 by Barry Hennessy MD at [facility] Pacemaker [employer] 05/03/2021 [id number] / [id number] / [id number] Procedures Procedure Name Priority Date/Time Associated Diagnosis Comments C-REACTIVE PROTEIN Routine 04/21/2025 3: 30 PM EST Rheumatoid arthritis involving multiple sites with positive rheumatoid factor High risk medication use SEDIMENTATION RATE Routine 04/21/2025 3: 28 PM EST Rheumatoid arthritis involving multiple sites with positive rheumatoid factor High risk medication use PROTIME-INR Routine 04/21/2025 CBC WITH AUTO DIFFERENTIAL Routine 04/20/2025 Rheumatoid arthritis involving multiple sites with positive rheumatoid factor High risk medication use COMPREHENSIVE METABOLIC PANEL Routine 04/20/2025 Rheumatoid arthritis involving multiple sites with positive rheumatoid factor High risk medication use PROTIME-INR Routine 04/14/2025 PROTIME-INR Routine 04/07/2025 PROTIME-INR Routine 03/29/2025 PROTIME-INR Routine 03/24/2025 PROTIME-INR Routine 03/17/2025 PROTIME-INR Routine 03/14/2025 PROTIME-INR Routine 03/10/2025 PROTIME-INR Routine 03/06/2025 MAMMO SCREENING MODIFIED WITH TOMOSYNTHESIS RIGHT W CAD Routine 02/28/2025 11:06 AM EDT Other screening mammogram PROTIME-INR Routine 02/24/2025 AMBRY GENETIC ASSESSMENT Routine 02/23/2025 9:50 AM EDT ECG 12-LEAD Routine 02/21/2025 snf current use of antiarrhythmic medical therapy PROTIME-INR [...] positive rheumatoid factor High risk medication use LIPID PANEL Routine 06/08/2022 10:16 AM EST from Last 3 Months or Most Recently Relevant to Health Maintenance Results * C-reactive Protein (04/21/2025 3:30 PM EST) Only the most recent of2 resultswithin the time period is included. Blood us David Bernstein MD LAB BLOOD ORDERABLES Final Result Performing Organization Address [facility] de Phone Number [facility] ([facility]) [address] [place] [address], * Sedimentation Rate (04/21/2025 3:28 PM EST) Only the most recent of2 resultswithin the time period is included. Blood us David Bernstein MD LAB BLOOD ORDERABLES Final Result Performing Organization Address [facility] de Phone Number [facility] ([facility]) [address] [place] [address], * Protime-INR (04/21/2025) Only the most recent of13 resultswithin the time period is included. INR 2.00 Blood Result [facility] Art Rodriguez MD LAB BLOOD ORDERABLES Agata l Result * CBC Auto Differential (04/20/2025) Only the most recent of2 resultswithin the time period is included. Blood us David Bernstein MD LAB BLOOD ORDERABLES Final Result Performing Organization Address [facility] Co de Phone Number [facility] (AMBULATORY) [address] [place] [address], [place] [phone] * Comprehensive Metabolic Panel (04/20/2025) Only the most recent of2 resultswithin the time period is included. Blood us David Bernstein MD LAB BLOOD ORDERABLES Final Result [facility] ([facility]UL[facility]) [address] [place] [address], [place] [phone] * Mammo Screening Modified With Tomosynthesis Right [...] MAMMOGRAPHY ORDERABLES Fin al Result * (ABNORMAL) GABRIELA GENETIC RISK ASSESSMENT QUESTIONNAIRE - , (02/23/2025 9:50 AM EDT) NCCN NCCN met(A) [facility] Comment:High Risk Cancer Ris k Assessment 02/23/2025 9:50 AM EDT us Cas Davey MD GENETIC TESTING Final Result GABRIELA SNOW
7 [facility], [place], [place] [address], [place] [phone] * ECG 12-LEAD (02/21/2025) Narrative 02/21/2025 Sorin [...] were not included. Cardiac Electrophysiology Outpatient Note [facility] Office Visit Luz Pantoja Skaggs [id number] 09/20/2024 Primary Care Physician: Ferny Gentile MD Referred By: No ref. provider found Subjective Chief Complaint Patient presents with PAF 6 month follow up PAF PROBLEM LIST: Paroxsymal 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 CHADSVASC = 3 on Coumadin Flecainide previously Tikosyn initiated 2022 Sick sinus syndrome S/p DDD PPM implant, Miah BURCIAGA Heart failure with improved LVEF (HFimpEF) TTE 08/2022: LVEF 37%, LA volume severely increased TTE 10/2024: LVEF 56-60%, grade 1 diastolic dysfunction, RVSP 35-45, mildAI OSIRIS On CPAP Multifocal PVCs Echo 12/2020: EF 60%, grade I diastolic dysfunction, RV borderline dilated.RVSP < 35 mmHg. Mild AR. History of breast cancer L rsxn 92-implant in place S/p lumbar fusion 2017 [facility]. History of Present Illness: Luz Skaggs [...] rhinitis Arrhythmia PVC'S Holter Jan 2015-=9% PVC [place] Arthritis Atrial fibrillation PAF per event recorder [...] drops by mouth Daily., Disp: , Rfl: zlxyer-wxffbiopr-xkmxsnckc sulfates (SUPREP) 17.5-3.13-1.6 GM/177MLsolution oral solution, DILUTE; [...] Echo Complete W/ Cont if Necessary Per Kkaurftn41/27/2025 5:06 PM Interpretation Summary Left ventricular systolic [...] questions orconcerns. Sorin Kearney PA-C Cardiac Electrophysiology [facility] Sorin Kearney PA-C ECG ORDERABLES Final Result * (ABNORMAL) Lipid Panel (06/08/2022 10:16 AM EST) Total Cholesterol 101 0 - 200 mg/dL 06/08/2022 10:49 AM EST [facility] Triglycerides 113 0 - 150 mg/dL 06/08/2022 10:49 AM EST [facility] HDL Cholesterol 37(L) 40 - 60 mg/dL 06/08/2022 10:49 AM EST [facility] LDL Cholesterol 43 0 - 100 mg/dL 06/08/2022 10:49 AM EST [facility] VLDL Cholesterol 21 5 - 40 mg/dL 06/08/2022 10:49 AM EST [facility] LDL/HDL Ratio 1.12 06/08/2022 10:49 AM EST [facility] Blood Venipuncture / Unknown 06/08/2022 10:16 AM EST 06/08/2022 10:22 AM EST Narrative [facility] - 06/08/2022 10:49 AM EST Cholesterol [...] MD LAB BLOOD ORDERABLES Final Resul t [facility]
[address] [place] [address], from Last 3 Months or Most Recently Relevant to Health Maintenance Insurance MEDICARE A & [place] Advance Directives Documents on File Type Date Recorded Patient Appian Developer Expl anation POWER OF MANAGEMENT ADVISOR - SCAN 07/04/2021 11:17 AM DURABLE POWER OF MANAGEMENT ADVISOR POWER OF MANAGEMENT ADVISOR - SCAN 02/01/2018 10:59 AM POWER OF MANAGEMENT ADVISOR 01/24/2011 * CPR (Attempt to Resuscitate) (Latest [...] Of Support Discussed With: Patient Care Teams Poll Watcher Relationship Specialty Start Date End Date Ferny Gentile MD [address] [facility] [address] [place] [address] PCP - General 06/11/15
--- OUTSIDE RECORDS SUMMARY | 2025-05-01 09:38 | XMS_ITS | Encounter Summary ---
[facility] Address [address] [place] [address] Care Team Providers Care Varnish Remover Name Role Phone Ferny Gentile MD Primary Care Provider [phone] Reason for Visit * Reason Comments Med Refill Encounter Details Date Type Department Care Team (Late st Contact Info) Description 01/30/2024 Refill [facility] CARDIOLOGY [address] [place] [address] [place] [address] Wojciech Flores MD [address] [facility] [place] [address] Med Refill Social History Tobacco Use Types [...] Visit [facility] RHEUMATOLOGY 330 [facility] 100 [place] [address] David Bernstein MD 330 [facility] 100 [place] [address] 10/03/2025 2:45 PM EDT Office Visit [facility] CARDIOLOGY 3000 [facility] [address] [place] [address] Yon Govea MD 1720 [facility] 400 [place] [address] 06/14/2026 1:30 PM EST Office Visit [facility] CARDIOLOGY [address] [facility] [place] [address] Wojciech Flores MD [address] [place] [address] documented as of this encounter Visit Diagnoses Not on filedocumented in this encounter Care Teams Varnish Remover Relationship Specialty Start Date End Date Ferny Gentile MD [address] [facility] [address] [place] [address] PCP - General 06/11/15 documented as of this encounter
--- OUTSIDE RECORDS SUMMARY | 2025-05-01 09:38 | XMS_ITS | Encounter Summary ---
Author Organization [facility] Address [address] [place] [address] Care Team Providers Care Applied Behavior Science Specialist Name Role Phone Ferny Gentile MD Primary Care Provider [phone] Encounter Details Date Type Department Care Team (Latest Contact Info) Description 06/22/2019 Anticoagulation Visit [facility] CLINIC [address] [place] [address] [address] [place] [address] Leticia Vivar, Director Content Marketing Paroxysmal 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 Social History Tobacco Use [...] Visit [facility] RHEUM[facility]OLOGY 330 [facility] 100 [place] [address] David Bernstein MD 330 [facility] 100 [place], [place] [address] 10/03/2025 2:45 PM EDT Office Visit [facility] CARDIOLOGY 3000 [facility] [address] [place] [address] Yon Govea MD [address] [facility] [address] [place], [place] [address] 06/14/2026 1:30 PM EST Office Visit [facility] CARDIOLOG[facility] [address] [place] [address] [place] [address] Wojciech Flores MD [address] [facility] [address] [place], [place] [address] documented as of this encounter Procedures Procedure [...] documented as of this encounter Care Teams Applied Behavior Science Specialist Relationship Specialty Start Date End Date Ferny Gentile MD 12[address] [facility] [address] [place] [address] PCP - General 06/11/15 documented as of this encounter
--- OUTSIDE RECORDS SUMMARY | 2025-05-01 09:38 | XMS_ITS | Encounter Summary ---
Author Organization [facility] Address [address] [place] [address] Care Team Providers Care Vice President Residential Solar Sales Name Role Phone Ferny Gentile MD Primary Care Provider [phone] Encounter Details Date Type Department Care Team (Late st Contact Info) Description 10/31/2024 Results Follow-Up [facility] CARDIOLOGY [address] [facility] [address] [place] [address] Yon Govea MD [address] [facility] 400 [place] [address] Social History Tobacco Use Types Packs/Day Years [...] Office Visit [facility] RHEUMATOLOGY [address] [facility] [address] [place] [address] David Bernstein MD 330 [facility] 100 [place] [address] 10/03/2025 2:45 PM EDT Office Visit [facility] CARDIOLOGY [address] [facility] [address] [place] [address] Yon Govea MD [address] [facility] 400 [place] [address] 06/14/2026 1:30 PM EST Office Visit [facility] CARDIOLOGY [address] [facility] [place] [address] Wojciech Flores MD [address] [place], [place] [address] documented as of this encounter Visit Diagnoses Not on filedocumented in this encounter Care Teams Vice President Residential Solar Sales Relationship Specialty Start Date End Date Ferny Gentile MD [address] [facility] [address] [place] [address] PCP - General 06/11/15 documented as of this encounter
--- OUTSIDE RECORDS SUMMARY | 2025-05-01 09:38 | XMS_ITS | Clinical Summary ---
Author Organization Healthcare Address [address] [place] [address] Care Team Providers Care Night Court Magistrate Name Role Phone Ferny Gentile MD Primary Care Provider [phone] Family History Medical History Relation Name Comments [...] of Treatment Not on file Care Teams Night Court Magistrate Relationship Specialty Start Date End Date Ferny Gentile MD [address] [facility] [address] [place] [id number] PCP - General 09/14/20
--- OUTSIDE RECORDS SUMMARY | 2025-05-01 09:39 | XMS_ITS | Encounter Summary ---
[facility] Organization [facility] Address [address] [place] [address] Care Team Providers Care Bean Snapper Name Role Phone Feryn Gentile MD Primary Care Provider [phone] Reason for Visit * Reason Onset Date Comments Med Refill 03/07/2025 Encounter Details Date Type Department Care Team (Late st Contact Info) Description 03/07/2025 Refill [facility] [address] [facility] [address] [place] [address] Claudia Bauer, PharmD [address] [place] [address] Social History Tobacco Use Types Packs/Day Years [...] 11:30 AM EST Office Visit [facility] RHEUM[facility] [address] [address] David Bernstein MD [address] [address] 10/03/2025 2:45 PM EDT Office Visit [facility] [address] [facility] [address] [place] [address] Yon Govea MD [address] [facility] [address] [place], [place] [address] 06/14/2026 1:30 PM EST Office Visit [facility] CARDIOLOGY [address] [place] [address] Wojciech Flores MD 1720 [facility] [address] [place], [place] [address] documented as of this encounter Visit Diagnoses Not on filedocumented in this encounter Care Teams Bean Snapper Relationship Specialty Start Date End Date Ferny Gentile MD 1210 [facility] [address] [place] [address] PCP - General 06/11/15 documented as of this encounter
--- OUTSIDE RECORDS SUMMARY | 2025-05-01 09:39 | XMS_ITS | Encounter Summary ---
Author Organization [facility] Address [address] [place] [address] Care Team Providers Care Supply Clerk Name Role Phone Ferny Gentile MD Primary Care Provider [phone] Encounter Details Date Type Department Care Team (Late st Contact Info) Description 03/02/2025 Results Follow-Up [facility] CANCER RISK ASSESSMENT [address] [place] [address] Dee Dee Ivan Social History [...] have attempted to contact the patient via [employer] message to discuss the risk assessment results.The patient has not yet responded. My contact information was included in the [employer] message. * Dee Dee Ivan - 03/02/2025 11:51 AM EDT I sent the patient a [employer] message asking for a call to discuss assessment results. documented in this encounter Plan of Treatment Upcoming Encounters Date Type Department Care Team (Late st Contact Info) Description 06/30/2025 11:30 AM EST Office Visit [facility] RHEUMATOLOGY [address] [place] [address] David Bernstein MD 330 [facility] [address] [place] [address] 10/03/2025 2:45 PM EDT Office Visit [facility] CARDIOLOGY 3000 [facility] [address] [place] [address] Yon Govea MD [address] [facility] [address] [place], [place] [address] 06/14/2026 1:30 PM EST Office Visit [facility] CARDIOLOGY [address] [place] [address] [address] [place] [address] Wojciech Flores MD [facility]20 [facility] [address] [place], [place] [address] documented as of this encounter Visit Diagnoses Not on filedocumented in this encounter Care Teams Supply Clerk Relationship Specialty Start Date End Date Ferny Gentile MD 1210 [facility] [address] [place] [address] PCP - General 06/11/15 documented as of this encounter
--- OUTSIDE RECORDS SUMMARY | 2025-05-01 09:39 | XMS_ITS | Encounter Summary ---
Author Organization [employer] ([place], [place], [place], [place], [place]) Address [address] [place] [address] Care Team Providers Care Manager Personnel Selection Name Role Phone Ferny Gentile Primary Care Provider [phone] Encounter Details Date Type Department Care Team (Late st Contact Info) Description 12/14/2018 Transcribed Document [facility] [place] Family Medicine [facility] [place] [address] ProviderArt MD [address] [place] [address] Social History Tobacco Use Types Packs/Day [...] SKAGGS /Sex: 1940 Female Med Rec #: [id number] Physician: MATTHEW BANEGAS MD-ORTheo Financial #: [id number] Pt. Type: I Room/Bed: [facility]/ Admit/Disch: 12/14/18 04:48:00 - Institution: [facility] Case Attendance Entry 1 Entry 2 Entry 3 Case Attendee MATTHEW BANEGAS LUNSFORD, JAMES, PURCHASING MANAGER/SALES GARRETT JARAMILLO, RM MORALEZ-ORT Role Performed Surgeon/Proceduralist, PURCHASING MANAGER/SALES/Nurse Labor Training Manager Physician nutrition assistant First Time In 12/14/18 08:10:00 12/14/18 [...] Carrero, ELENA BRAR CHAD, RAVEN Role Performed Business Law Teacher, First Scrub, Out Of School Hours Care Worker, First Time In 12/14/18 07:30:00 12/14/18 07:30:00 [...] ATTENDEE Ryanne Buchanan Hill, Philip A, Rn Parts Driver Role Performed Vendor Handkerchief Maker Scrub, First Time In 12/14/18 08:10:00 12/14/18 [...] LEININGER, SUSAN, RN Role Performed Scrub, Second Business Law Teacher, Second Time In 12/14/18 08:15:00 12/14/18 09:20:00 Time Out 12/14/18 09:05:00 12/14/18 09:31:00 Procedure Hip Total Anterior Hip Total Anterior Approach Approach Other Attendee Superficial Wound Closed By: Last Modified By: Tiffany Carrero RN Wellnitz, Sara, RN 12/14/18 09:31:30 12/14/18 09:31:30 [facility] Case Attendance Audit 12/14/18 09:31:50 Tamper Operator: LUIS Modifier: LUIS 3 <+> Role Performed 3 <*> Procedure Hip Total Anterior Approach 12/14/18 09:31:30 Tamper Operator: LUIS Modifier: LUIS 1 <*> Procedure [...] Procedure Hip Total Anterior Approach 12/14/18 09:21:19 Tamper Operator: LUIS Modifier: LUIS 4 <+> Time Out 4 <*> Procedure Hip Total Anterior Approach <+> 11 Case Attendee <+> 11 Role Performed <+> 11 Time In <+> 11 Procedure 12/14/18 09:19:23 Tamper Operator: LUIS Modifier: LUIS 8 <+> Time Out 8 <*> Procedure Hip Total Anterior Approach 12/14/18 09:10:59 Tamper Operator: WELLNISA Modifier: WELLNISA 5 <+> Time Out 5 <*> Procedure Hip Total Anterior Approach <+> 10 Case Attendee <+> 10 Role Performed <+> 10 Time In <+> 10 Time Out <+> 10 Procedure 12/14/18 09:04:01 Tamper Operator: REJIA Modifier: WELLNISA 1 <+> Time Out 1 <*> Procedure Hip Total Anterior Approach 7 <+> Time Out 7 <*> Procedure Hip Total Anterior Approach <+> 9 Case Attendee <+> 9 Role Performed <+> 9 Time In <+> 9 Procedure 12/14/18 08:38:47 Tamper Operator: REJIA Modifier: WELLNISA 6 <+> Time Out 6 <*> Procedure Hip Total Anterior Approach 12/14/18 08:37:27 Tamper Operator: REJIA Modifier: WELLNISA 3 <*> Time In 12/14/18 07:30:00 3 <*> Procedure Hip Total Anterior Approach 12/14/18 08:11:28 Tamper Operator: REJIA Modifier: WELLNISA 7 <*> Time In 12/14/18 07:30:00 7 <*> Procedure Hip Total Anterior Approach <+> 8 Case Attendee <+> 8 Role Performed <+> 8 Time In <+> 8 Procedure 12/14/18 08:10:47 Tamper Operator: REJIA Modifier: WELLNISA 1 <*> Time In 12/14/18 07:30:00 1 <*> Procedure Hip Total Anterior Approach 12/14/18 08:10:28 Tamper Operator: REJIA Modifier: WELLNISA 1 <+> Time [...] [facility] Case Times Audit 12/14/18 09:31:27 Tamper Operator: LUIS Modifier: REJIA <+> 1 Out Room Time <+> 1 Stop Time 12/14/18 09:19:35 Tamper Operator: LUIS Modifier: WELLMARKOA <+> 1 Stop Time 12/14/18 08:10:57 Tamper Operator: LUIS Modifier: WELLMARKOA <+> 1 Start [...] 08:37:55 [facility] Cautery Audit 12/14/18 08:37:55 Tamper Operator: LUIS Modifier: LUIS 1 <*> Cautery [...] Skin Condition Unchanged After Cautery 12/14/18 08:10:52 Tamper Operator: LUIS Modifier: WELLMARKOA <+> 2 Cautery [...] 08:07:35 [facility] Communication Audit 12/14/18 08:13:51 Tamper Operator: LUIS Modifier: LUIS <+> 1 Date [...] [facility] Counts Verification Audit 12/14/18 09:10:01 Tamper Operator: LUIS Modifier: LUIS 2 <*> Procedure [...] [facility] Counts Final Audit 12/14/18 09:11:14 Tamper Operator: MEREMARKOJessi Modifier: MEREMARKOA 1 <*> Procedure [...] IntraOp Drains and Tubes Audit 12/14/18 08:10:39 Tamper Operator: MEREMARKOJessi Modifier: LUIS 1 <*> Device [...] Comments MEPILEX; DERMABOND Last Modified By: Tiffany Carrreo RN 12/14/18 08:11:50 [facility] Fire Risk [...] RN 12/14/18 08:12:06 [facility] General Case Film Processor 1 Case Information OR OR 02 [facility] [place] Case Level 1 [...] SZ STEM HIP CLLR ORGN CX Identification [id number] Description Implant Quantity 1 1 1 Implant Site LEFT HIP LEFT HIP LEFT HIP Implant Identification Model Number Implant Identification Serial Number Implant [id number] Identification Lot Number Implant Paxeon Reconstruction Paxeon Reconstruction Paxeon Reconstruction Identification Small Equipment Operator Name: Implant [id number] Identification Catalog Number Implant Size Implant Has an Yes Yes Yes Expiration Date Implant Expiration 08/02/23 10/02/23 09/01/23 Date Wasted Radioactive Material Time Implanted Tissue Implant Continue for Tissue Implant Documentation Tissue Identification Number Graft Prep Per Small Equipment Operator Instructions: Tissue Preparation Method: Reconstitution Solution: Reconstitution Solution Lot Number Reconstitution Solution Expiration Date: Thawing Solution Thawing Solution Lot Number Thawing Solution Expiration Date Preparation Materials, Other Preparation Materials, Other Lot Number Preparation Materials, Other Expiration Date Tissue Prepared/Processed By Small Equipment Operator Paperwork Completed Implant Type Comment Last Modified By: Tiffany Carrero, Tiffany Garcia RN Wellnitz, Sara, RN 12/14/18 08:31:02 12/14/18 08:36:29 12/14/18 09:06:08 Entry 4 Type Implant (Synthetic) Implant Log Implant Type Hardware Tissue Implant Type Implant HEAD FEM CERC SZ 36MM Identification [id number] Description Implant Quantity 1 Implant Site LEFT HIP Implant Identification Model Number Implant Identification Serial Number Implant [id number] Identification Lot Number Implant Paxeon Reconstruction Identification Small Equipment Operator Name: Implant [id number] Identification Catalog Number Implant Size Implant Has an Yes Expiration Date Implant Expiration 06/03/23 Date Wasted Radioactive Material Time Implanted Tissue Implant Continue for Tissue Implant Documentation Tissue Identification Number Graft Prep Per Small Equipment Operator Instructions: Tissue Preparation Method: Reconstitution Solution: Reconstitution Solution Lot Number Reconstitution Solution Expiration Date: Thawing Solution Thawing Solution Lot Number Thawing Solution Expiration Date Preparation Materials, Other Preparation Materials, Other Lot Number Preparation Materials, Other Expiration Date Tissue Prepared/Processed By Small Equipment Operator Paperwork Completed Implant Type Comment Last Modified By: Tiffany Carrero RN 12/14/18 09:06:08 [facility] Implant Log Audit 12/14/18 09:06:08 Tamper Operator: LUIS Modifier: WELLNISA <+> 3 Implant Identification Description <+> 3 Implant Identification Lot Number <+> 3 Implant Identification Small Equipment Operator Name: <+> 3 Implant Expiration Date <+> 3 Implant Identification Catalog Number <+> 4 Implant Identification Description <+> 4 Implant Identification Lot Number <+> 4 Implant Identification Small Equipment Operator Name: <+> 4 Implant Expiration Date <+> 4 Implant Identification Catalog Number 12/14/18 08:36:29 Tamper Operator: WELLNISA Modifier: WELLNISA <+> 2 Implant Identification Description <+> 2 Implant Identification Lot Number <+> 2 Implant Identification Small Equipment Operator Name: <+> 2 Implant Expiration Date <+> 2 Implant Identification Catalog Number 12/14/18 08:31:02 Tamper Operator: WELLNISA Modifier: WELLNISA <+> 1 Implant Identification Description <+> 1 Implant Identification Lot Number <+> 1 Implant Identification Small Equipment Operator Name: <+> 1 Implant Expiration Date <+> 1 Implant Identification Catalog Number 12/14/18 08:20:19 Tamper Operator: WELLNISA Modifier: WELLNISA <+> 4 Implant [...] Arrival to OR Last Modified By: Tiffany Crarero RN 12/14/18 08:13:11 [facility] Intraoperative Equipment [...] vancomycin 1Gm vial - ANESTHETIC 1000MG/10 ML [id number] COCKTAIL-BANEGAS [id number] Combo Med List Time Administered Route of [...] [facility] Time Out Audit 12/14/18 08:17:05 Tamper Operator: LUIS Modifier: LUIS 1 <*> Time Out Pause Time 12/14/18 08:08:00 1 <*> Procedure to be Performed Hip Total Anterior Approach [facility] X-Ray and Images Entry 1 X-Ray/Imaging Type Fluoroscopy Fluoroscopy Type C-Arm Site LEFT HIP Sas Analyst Name Ryanne Buchanan, Parts Driver Protective Devices Yes Used Last Modified By: [...] filedocumented in this encounter Care Teams Manager Personnel Selection Relationship Specialty Start Date End Date Ferny Gentile [address] [place] [address] PCP - General 05/22/22 documented as of this encounter
--- OUTSIDE RECORDS SUMMARY | 2025-05-01 09:39 | XMS_ITS | Encounter Summary ---
Author Organization [facility] Address [address] [place] [address] Care Team Providers Care Survey Researcher Name Role Phone Ferny Gentile MD Primary Care Provider [phone] Encounter Details Date Type Department Care Team (Late st Contact Info) Description 03/06/2025 Anticoagulation Visit [facility] [address] [facility] [address] [place] [address] Claudia Bauer, PharmD [address] [place] [address] Social History Tobacco Use Types Packs/Day Years [...] Bauer, PharmD - 03/06/2025 8:15 AM EST [facility] Anticoagulation Clinic Progress Note Patient Demographics Method of INR reporting: ACELIS HOME MONITOR Estimated OOP Cost: Indication: Paroxsymal Atrial Fibrillation (I48.0) Referring Provider Wojciech Flores MD Reason patient is not on a DOAC: Undetermined Goal INR: 2-3 Warfarin Start Date Fall 2014 Reason patient is not on home monitor: [id number]: CHF (1), HTN (1), Age >74 (2), [...] Naranjo Preferred contact number: Alternative contact number(s): [phone] ([employer]) Patient Appropriate for WarfNoCall ? [...] [facility] RHEUMATOLOGY [address] [place] [address] David Bernstein MD [address] [place] [address] 10/03/2025 2:45 PM EDT Office Visit [facility] CARDIOLOGY [address] [facility] [address] [place] [address] Yon Govea MD [address] [facility] [address] [place], [place] [id number] 06/14/2026 1:30 PM EST Office Visit [facility] CARDIOLOGY [address] [place] [address] [address] [place] [address] Wojciech Flores MD [address] [facility] [address] [place], [place] [id number] documented as of this encounter Procedures Procedure Name Priority Date/Time Associated Diagnosis Comments PROTIME-INR Routine 03/06/2025 documented in this encounter Results * Protime-INR (03/06/2025) INR 1.20 Blood us Historical Provider LAB BLOOD ORDERABLES Agata l Result documented in this encounter Visit Diagnoses Not on filedocumented in this encounter Care Teams Survey Researcher Relationship Specialty Start Date End Date Ferny Gentile MD [address] [facility] [address] [facility] [address] PCP - General 06/11/15 documented as of this encounter
--- OUTSIDE RECORDS SUMMARY | 2025-05-01 09:39 | XMS_ITS | Encounter Summary ---
Author Organization [employer] ([place], [place], [place], [place], [place]) Address [address] [place] [address] Care Team Providers Care Supervisor Remelt Name Role Phone Ferny Gentile Primary Care Provider Encounter Details Date Type Department Care Team (Late st Contact Info) Description 12/14/2018 Transcribed Document [facility] [place] [facility] [place] [address] ProviderArt MD [address] [place] [address] Social History Tobacco Use Types Packs/Day [...] Art ProviderMD - 12/14/2018 8:10 AM CDT [facility] Main OR PACU Summary Primary Physician: MATTHEW BANEGAS MD-ORTheo Finalized Date/Time: 12/14/18 10:16:12 Pt. Name: UZAIR MADERA Kit Pereira/Sex: 1940 Female Med Rec #: [id number] Physician: MATTHEW BANEGAS MD-ORTheo Financial #: [id number] Pt. Type: I Room/Bed: [facility]/ Admit/Disch: 12/14/18 04:48:00 - Institution: [facility] Main OR PACU Case Times Entry 1 In PACU I 12/14/18 09:35:00 Ready for PACU 12/14/18 10:10:00 Discharge Discharge from PACU 12/14/18 10:10:00 I Last Modified By: Michael Ferrer, Omar 12/14/18 10:15:34 [facility] Main OR PACU Acuity Entry 1 Start Time 12/14/18 10:11:00 Stop Time 12/14/18 10:15:00 Acuity Level [facility] PACU Acuity I Last Modified By: Michael Ferrer Rn 12/14/18 10:15:43 Finalized By: Michael Ferrer, Rn Document Signatures Signed By: Michael Ferrer Rn 12/14/18 10:16 documented in this encounter Plan of Treatment Not on file documented as of this encounter Visit Diagnoses Not on filedocumented in this encounter Care Teams Supervisor Remelt Relationship Specialty Start Date End Date Ferny Gentile [address] [place] [address] PCP - General 05/22/22 documented as of this encounter
--- OUTSIDE RECORDS SUMMARY | 2025-05-01 09:39 | XMS_ITS | Encounter Summary ---
Author Organization [employer] ([place], [place], [place], [place], [place]) Address [address] [place] [address] Care Team Providers Care Digital Marketing Strategist Name Role Phone SeferinoSakinat Primary Care Provider [phone] Encounter Details Date Type Department Care Team (Late st Contact Info) Description 12/14/2018 Transcribed Document [facility] [place] [facility] [place] [address] ProviderArt MD [address] [place] [address] Social History Tobacco Use Types Packs/Day [...] filedocumented in this encounter Care Teams Digital Marketing Strategist Relationship Specialty Start Date End Date Ferny Gentile [address] [place] [address] PCP - General 05/22/22 documented as of this encounter
--- OUTSIDE RECORDS SUMMARY | 2025-05-01 09:39 | XMS_ITS | Encounter Summary ---
Author Organization [email or web address] ([place], [place], [place], [place], [place]) Address [address] [place] [address] Care Team Providers Care Eggs Inspector Name Role Phone Ferny Gentile Primary Care Provider [phone] Encounter Details Date Type Department Care Team (Late st Contact Info) Description 12/15/[address] [facility] [place] Family Medicine [facility] [place] [address] ProviderArt MD [address] [place] [address] Social History Tobacco Use Types Packs/Day [...] on filedocumented in this encounter Care Teams Eggs Inspector Relationship Specialty Start Date End Date Ferny Gentile [address] [place] [address] PCP - General 05/22/22 documented as of this encounter
--- OUTSIDE RECORDS SUMMARY | 2025-05-01 09:39 | XMS_ITS | Encounter Summary ---
Author Organization [employer] ([place], [place], [place], [place], [place]) Address [address] [place] [address] Care Team Providers Care Ticket Scheduler Name Role Phone Ferny Gentile Primary Care Provider [phone] Encounter Details Date Type Department Care Team (Late st Contact Info) Description 12/15/2018 Transcribed Document [facility] [place] Family [place] [facility] [place] [address] ProviderArt MD [address] [place] [address] Social History Tobacco Use Types Packs/Day [...] Art ProviderMD - 12/15/2018 11:22 [place] [address] UZAIR MADERA :1940 Visit Time:12/14/2018 Your Visit Summary Your Care Team Admitting Physician - MARIELLA DOBBS MD CHRISTENSEN, CHRISTIAN, MD-HEAVENT Attending Physician - MATTHEW BANEGAS MD-ORT Primary Care Physician - FERNY GENTILE (REF)MD-INT Referring Physician - BANEGAS, TEMPLE, MD-ORT Your Diagnosis Hip pain, chronic Discharge Vitals Temperature 37.1 ??C Heart Rate 68 Respiratory Rate 18 Blood Pressure 98/50 What to do next Instructions From Your Care Team PATIENT HAS A WALKER, PT WILL HAVE HOME THERAPY WITH [facility] [phone], PATIENT CHECKS HER OWN INR WITH HOME MACHINE, DR THACKER IS MI[employer]OS[employer]FT INFRASTRUCTURE CONSULTANT Discharge Follow Up Instructions: PCP in1 week [...] Oral Two Times A Day Pickup at [facility] enoxaparin (Lovenox 40 [...] further dose adjustments aif needed Pickup at [facility] bifidobacterium infantis (Align) [...] psyllium (Konsyl) Oral Every Day Pharmacy Information [facility]: [place] [address] [phone] Take your medications faithfully. Do NOT skip [...] Barley. Bulgur wheat. Millet. Bran muffins. Popcorn. Bob White wafer crackers. Vegetables Sweet potatoes. Spinach. Kale. Artichokes. Cabbage. Broccoli. Green peas. Carrots. Squash. Fruits Berries. Pears. Apples. Oranges. Avocados. Prunes and raisins. Dried figs. Meats and Other Protein Sources [place], kidney, shrestha, and soy beans. Split peas. [...] zuri has 11 g of protein. ??? [place] seeds ??? 1 oz has 5.5 g [...] floor. ??? Place frequently used items in bvaj-md-crqrn places ??? Keep electrical cables out of [...] ??? Using the bathroom. ??? Using household air pollution control engineer or toxic chemicals. ??? Touching or taking [...] a day sleeper or work a shift production associate. Some people have thoughts about suicide while [...] may report side effects to FDA at 3-302-VMH-0785. What other drugs will affect gabapentin? Taking gabapentin with other drugs that make you sleepy can worsen this effect. Ask your doctor before taking a sleeping pill, narcotic medication, muscle relaxer, or medicine for anxiety, depression, or seizures. Other drugs may interact with gabapentin, including prescription and ktoj-ubo-laojijv medicines, vitamins, and herbal products. Tell your [...] to ensure that the information provided by [employer]. ('Multum') is accurate, up-to-date, and complete, but no guarantee is made to that effect. Drug information contained herein may be time sensitive. [employer] information has been compiled for use by healthcare practitioners and consumers in the [place] and therefore [employer] does not warrant that uses outside of the [place] are appropriate, unless specifically indicated otherwise. [employer] drug information does not endorse drugs, diagnose patients or recommend therapy. [employer] drug information is an informational resource designed [...] effective or appropriate for any given patient. [employer] does not assume any responsibility for any aspect of healthcare administered with the aid of information Solar[employer] provides. The information contained herein is not intended to cover all possible uses, directions, precautions, warnings, drug interactions, allergic reactions, or adverse effects. If you have questions about the drugs you are taking, check with your doctor, nurse or pharmacist. Copyright 5269-0472 [employer]. Version: 14.. Revision Date: 02/10/2017. hydromorphone (oral) [...] extended-release form of this medicine is for souvvd-utw-kflik treatment of moderate to severe pain, not [...] against the law. Stop taking all other sznjue-zrb-lwbeu narcotic pain medications when you start taking [...] may report side effects to FDA at 5-742-ZHE-4542. What other drugs will affect hydromorphone? Opioid [...] drugs may affect hydromorphone, including prescription and ylps-jeg-hpllhoq medicines, vitamins, and herbal products. Not all [...] to ensure that the information provided by [employer]. ('Multum') is accurate, up-to-date, and complete, but no guarantee is made to that effect. Drug information contained herein may be time sensitive. [employer] information has been compiled for use by healthcare practitioners and consumers in the [place] and therefore [employer] does not warrant that uses outside of the [place] are appropriate, unless specifically indicated otherwise. [employer] drug information does not endorse drugs, diagnose patients or recommend therapy. [employer] drug information is an informational resource designed [...] effective or appropriate for any given patient. [employer] does not assume any responsibility for any aspect of healthcare administered with the aid of information [employer] provides. The information contained herein is not intended to cover all possible uses, directions, precautions, warnings, drug interactions, allergic reactions, or adverse effects. If you have questions about the drugs you are taking, check with your doctor, nurse or pharmacist. Copyright 9436-4250 [employer]. Version: 9.02. Revision Date: 03/31/2018. acetaminophen and hydrocodone (a SEET a MIN oh fen and noah droe KOE done) Hycet, Lorcet, Dos Rios, Verdrocet, Vicodin, Xodol, Zamicet What is the [...] may report side effects to FDA at 5-627-PSD-6402. What other drugs will affect acetaminophen and [...] affect acetaminophen and hydrocodone, including prescription and zkxw-jtv-esgvgdq medicines, vitamins, and herbal products. Not all [...] to ensure that the information provided by [employer]. ('Multum') is accurate, up-to-date, and complete, but no guarantee is made to that effect. Drug information contained herein may be time sensitive. [employer] information has been compiled for use by healthcare practitioners and consumers in the [place] and therefore [employer] does not warrant that uses outside of the [place] are appropriate, unless specifically indicated otherwise. [employer] drug information does not endorse drugs, diagnose patients or recommend therapy. [employer] drug information is an informational resource designed [...] effective or appropriate for any given patient. [employer] does not assume any responsibility for any aspect of healthcare administered with the aid of information [employer] provides. The information contained herein is not intended to cover all possible uses, directions, precautions, warnings, drug interactions, allergic reactions, or adverse effects. If you have questions about the drugs you are taking, check with your doctor, nurse or pharmacist. Copyright 2594-6699 [employer]. Version: 15.02. Revision Date: 03/08/2018. tramadol (TRAM [...] extended-release form of this medicine is for zervpq-wzn-stqyc treatment of pain. This form of tramadol [...] against the law. Stop taking all other tyxrab-whh-iebmz narcotic pain medications when you start taking [...] may report side effects to FDA at 7-396-GRY-9942. What other drugs will affect tramadol? You [...] may affect tramadol. This includes prescription and ctan-gce-auwqyba medicines, vitamins, and herbal products. Not all [...] to ensure that the information provided by [employer]. ('Multum') is accurate, up-to-date, and complete, but no guarantee is made to that effect. Drug information contained herein may be time sensitive. [employer] information has been compiled for use by healthcare practitioners and consumers in the [place] and therefore [employer] does not warrant that uses outside of the [place] are appropriate, unless specifically indicated otherwise. [employer]'s drug information does not endorse drugs, diagnose patients or recommend therapy. [employer] drug information is an informational resource designed [...] effective or appropriate for any given patient. [employer] does not assume any responsibility for any aspect of healthcare administered with the aid of information [employer] provides. The information contained herein is not intended to cover all possible uses, directions, precautions, warnings, drug interactions, allergic reactions, or adverse effects. If you have questions about the drugs you are taking, check with your doctor, nurse or pharmacist. Copyright 9123-4511 [employer]. Version: 20.01. Revision Date: 08/12/2018. Emergency Awareness [...] Assistance with quitting is available by contacting 9-505-ERCECodeEvalNOW. This is a free resource providing counseling, [...] on filedocumented in this encounter Care Teams Ticket Scheduler Relationship Specialty Start Date End Date Ferny Gentile [address] [place] [address] PCP - General 05/22/22 documented as of this encounter
--- OUTSIDE RECORDS SUMMARY | 2025-05-01 09:39 | XMS_ITS | Encounter Summary ---
Author Organization [employer] ([place], [place], [place], [place], [place]) Address [address] [place] [address] Care Team Providers Care Textile Conversion Manager Name Role Phone Douglas Gentileght Primary Care Provider [phone] Encounter Details Date Type Department Care Team (Late st Contact Info) Description 12/14/2018 Transcribed Document [facility] [place] [facility] [place] [address] ProviderArt MD [address] [place] [address] Social History Tobacco Use Types Packs/Day [...] ANTONIO WHITLEY RN - 12/14/2018 18:30 EDT Electronically signed by Brina Zamarripa Conversion Painting And Coating Worker Cerner at 08/18/2022 11:36 AM CDT documented in this encounter Plan of Treatment Not on file documented as of this encounter Visit Diagnoses Not on filedocumented in this encounter Care Teams Textile Conversion Manager Relationship Specialty Start Date End Date Ferny Gentile [address] [place] [address] PCP - General 05/22/22 documented as of this encounter
--- OUTSIDE RECORDS SUMMARY | 2025-05-01 09:39 | XMS_ITS | Encounter Summary ---
Author Organization [facility] Address [address] [place] [address] Care Team Providers Care Casting Plug Assembler Name Role Phone Ferny Gentile MD Primary Care Provider [phone] Encounter Details Date Type Department Care Team (Late st Contact Info) Description 03/10/2025 Anticoagulation Visit [facility] [address] [facility] [address] [place] [address] Claudia Bauer, PharmD [address] [place] [address] Social History Tobacco Use Types Packs/Day Years [...] Bauer, PharmD - 03/10/2025 9:59 AM EST [facility] Progress Note Patient Demographics Method of INR reporting: ACELIS HOME MONITOR Estimated OOP Cost: Indication: Paroxsymal Atrial Fibrillation (I48.0) Referring Provider Wojciech Flores MD Reason patient is not on a DOAC: Undetermined Goal INR: 2-3 Warfarin Start Date Fall 2014 Reason patient is not on home monitor: [id number]: CHF (1), HTN (1), Age >74 (2), [...] Naranjo Preferred contact number: Alternative contact number(s): [phone] (Emy Mobile) Patient Appropriate for WarfNoCall ? No [...] questions at this time. Claudia Bauer PharmD 03/10/2025 10:00 EST documented in this encounter Plan of Treatment Upcoming Encounters Date Type Department Care Team (Late st Contact Info) Description 06/30/2025 11:30 AM EST Office Visit [facility] [address] [place] [id number] David Bernstein MD [address] [place] [address] 10/03/2025 2:45 PM EDT Office Visit [facility] CARDIOLOGY [address] [facility] [address] [place] [address] Yon Govea MD [address] [facility] [address] [place], [place] [address] 06/14/2026 1:30 PM EST Office Visit [facility] CARDI[facility] [address] [place] [address] [place] [address] Wojciech Flores MD [address] [facility] [address] [place], [place] [id number] documented as of this encounter Procedures Procedure Name Priority Date/Time Associated Diagnosis Comments PROTIME-INR Routine 03/10/2025 documented in this encounter Results * Protime-INR (03/10/2025) INR 1.50 Blood us Historical Provider LAB BLOOD ORDERABLES Agata l Result documented in this encounter Visit Diagnoses Not on filedocumented in this encounter Care Teams Casting Plug Assembler Relationship Specialty Start Date End Date Ferny Gentile MD [address] [facility] [address] [place] [address] PCP - General 06/11/15 documented as of this encounter
--- OUTSIDE RECORDS SUMMARY | 2025-05-01 09:39 | XMS_ITS | Encounter Summary ---
Author Organization [employer] ([place], [place], [place], [place], [place]) Address [address] [place] [address] Care Team Providers Care Guest Services Ambassador Name Role Phone Ferny Gentile Primary Care Provider [phone] Encounter Details Date Type Department Care Team (Late st Contact Info) Description 12/14/2018 Transcribed Document [facility] [place] [facility] [place] [address] ProviderArt MD [address] [place] [address] Social History Tobacco Use Types Packs/Day [...] on filedocumented in this encounter Care Teams Guest Services Ambassador Relationship Specialty Start Date End Date Ferny Gentile [address] [place] [address] PCP - General 05/22/22 documented as of this encounter
--- OUTSIDE RECORDS SUMMARY | 2025-05-01 09:39 | XMS_ITS | Clinical Summary ---
Author Organization [employer] ([place], [place], [place], [place], [place]) Address [address] [place] [address] Care Team Providers Care Waterfront Director Name Role Phone SeferinoSakinat Primary Care Provider [phone] Allergies Active Allergy Reactions Criticality Noted Date [...] oxide 400 mg magnesium Tab daily. Active yo-xgs-mrefrq- izA49-jpn-anf- 27 0.5-30-60-90 mg Cap daily. Active cholecalcifero [...] Date Alfredo rded Speak language other than Moldovan at home Not on file 05/22/2023 Want [...] 2025 01/29/2021 Medical Devices Implanted Type Area Valve Tester Device Identifier Shelf Expiration Date Model / Serial / Lot Cement Bone [place] Hv 40/20 600-15-000 - [id number] Implanted:Qty : 2 on 05/26/2022 by Eliseo Cuevas MD at [facility] IMPLANTS Left: Knee DJ SURG:ENCORE MED:JESSIEOOGA 05/30/2023 600-15-00 0 / / [id number] Ty Tib I-Beam Fix Biomet 75mm [id number] - [id number] Implanted:Qty : 1 on 05/26/2022 by Eliseo Cuevas MD at [facility] TOTAL JOINT CONSTRUCT Left: Knee BIOMET 03/26/2032 [id number] / / [id number] Patella Std 8x31mm [id number] - [id number] Implanted:Qty : 1 on 05/26/2022 by Eliseo Cuevas MD at [facility] TOTAL JOINT CONSTRUCT Left: Knee BIOMET 03/12/2027 [id number] / / [id number] Comp Fem Ps Vangrd 65mm [id number] - [id number] Implanted:Qty : 1 on 05/26/2022 by Eliseo Cuevas MD at [facility] TOTAL JOINT CONSTRUCT Left: Knee BIOMET 10/13/2029 [id number] / / [id number] Insrt Tib Bear Ps 10x71/75 [id number] - [id number] Implanted:Qty : 1 on 05/26/2022 by Eliseo Cuevas MD at [facility] TOTAL JOINT CONSTRUCT Left: Knee BIOMET 11/07/2025 [id number] / / [id number] Insurance MEDICARE PART A B Advance Directives For more information, please contact: [phone] * Full Code (Latest Code Status on File) Date Activated Date Inactivated Comments 05/26/2022 3:06 PM 05/29/2022 8:04 PM * Full Code Date Activated Date Inactivated Comments 05/26/2022 8:57 AM 05/26/2022 3:06 PM Care Teams Waterfront Director Relationship Specialty Start Date End Date SeferinoSakinat [address] [place] [address] PCP - General 05/22/22
--- OUTSIDE RECORDS SUMMARY | 2025-05-01 09:39 | XMS_ITS | Encounter Summary ---
Author Organization [employer] ([place], [place], [place], [place], [place]) Address [address] [place] [address] Care Team Providers Care Disposal Man Name Role Phone SeferinoSakinat Primary Care Provider [phone] Encounter Details Date Type Department Care Team (Late st Contact Info) Description 12/15/2018 Transcribed Document [facility] [place] Family Medicine [facility] [place] [address] ProviderArt MD [address] [place] [address] Social History Tobacco Use Types Packs/Day [...] on filedocumented in this encounter Care Teams Disposal Man Relationship Specialty Start Date End Date Ferny Gentile [address] [place] [address] PCP - General 05/22/22 documented as of this encounter
--- OUTSIDE RECORDS SUMMARY | 2025-05-01 09:39 | XMS_ITS | Encounter Summary ---
Author Organization [employer] ([place], [place], [place], [place], [place]) Address [address] [place] [address] Care Team Providers Care Process Development Engineer Name Role Phone Ferny Gentile Primary Care Provider Encounter Details Date Type Department Care Team (Late st Contact Info) Description 12/15/2018 Transcribed Document [facility] [place] [place] [address] ProviderArt MD [address] [place] [address] Social History Tobacco Use Types Packs/Day [...] on filedocumented in this encounter Care Teams Process Development Engineer Relationship Specialty Start Date End Date SeferinoFerny [address] [place] [address] PCP - General 05/22/22 documented as of this encounter
--- OUTSIDE RECORDS SUMMARY | 2025-05-01 09:39 | XMS_ITS | Encounter Summary ---
Author Organization [employer] ([place], [place], [place], [place], [place]) Address [address] [place] [address] Care Team Providers Care Microfilm Technician Name Role Phone Ferny Gentile Primary Care Provider [phone] Encounter Details Date Type Department Care Team (Late st Contact Info) Description 12/14/2018 Transcribed Document [facility] [place] [facility] [place] [address] ProviderArt MD [address] [place] [address] Social History Tobacco Use Types Packs/Day [...] Source : Stated Height Entry Format : [place] Height, Feet : 5 ft(Converted to: 152 cm, 60 Inch) Height, Inches : 7 Inch(Converted to: 0 ft 7 Inch, 17.78 cm) Clinical Height : 170.18 cm Weight Source : Standing scale Weight Entry Format : [place] Clinical Dosing Weight : 90.91 kg Weight, Pounds : 200 lb Body Surface Area (BSA) : 2.02 m2 Body Mass Index : 31.4 kg/m2 (HI) [place] Body Weight : 61 kg SHERLYN THOMPSON [...] Obtained From : Patient Primary Language : Bulgarian Preferred Communication Mode : Verbal Communication Barrier [...] Level : 46 or > High Risk [place] Fall Interventions : Adequate lighting, Assistive devices [...] the text rendition version of the form. [place] Coma [place] Best Motor Response : Obey commands Marcella Best Verbal Response : Oriented [place] Eye Opening Response : Spontaneous [place] Coma Score : 15 SHERLYN THOMPSON RN - 12/14/2018 6:06 EDT documented in this encounter Plan of Treatment Not on file documented as of this encounter Visit Diagnoses Not on filedocumented in this encounter Care Teams Microfilm Technician Relationship Specialty Start Date End Date Ferny Gentile [address] [place] [address] PCP - General 05/22/22 documented as of this encounter
--- OUTSIDE RECORDS SUMMARY | 2025-05-01 09:39 | XMS_ITS | Encounter Summary ---
Author Organization [employer] ([place], [place], [place], [place], [place]) Address [address] [place] [address] Care Team Providers Care Grain Merchandising Manager Name Role Phone SeferinoSakinat Primary Care Provider [phone] Encounter Details Date Type Department Care Team (Late st Contact Info) Description 12/14/2018 Transcribed Document [facility] [place] [facility] [place] [address] ProviderArt MD [address] [place] [address] Social History Tobacco Use Types Packs/Day [...] 12/14/2018 6:13 EDT by Ana Overton Patient Industrial Boilermaker Height and Weight, Clinical Dosing Height Source : Stated Height Entry Format : [place] Height, Feet : 5 ft(Converted to: 152 cm, 60 Inch) Height, Inches : 7 Inch(Converted to: 0 ft 7 Inch, 17.78 cm) Clinical Height : 170.18 cm Weight Source : Standing scale Weight Entry Format : [place] Clinical Dosing Weight : 90.91 kg Weight, Pounds : 200 lb Body Surface Area (BSA) : 2.02 m2 Body Mass Index : 31.4 kg/m2 (HI) [place] Body Weight : 61 kg Ana Overton, Patient Industrial Boilermaker - 12/14/2018 6:13 EDT documented in this encounter Plan of Treatment Not on file documented as of this encounter Visit Diagnoses Not on filedocumented in this encounter Care Teams Grain Merchandising Manager Relationship Specialty Start Date End Date Ferny Gentile [address] [place] [address] PCP - General 05/22/22 documented as of this encounter
--- OUTSIDE RECORDS SUMMARY | 2025-05-01 09:39 | XMS_ITS | Encounter Summary ---
Author Organization [employer] ([place], [place], [place], [place], [place]) Address [address] [place] [address] Care Team Providers Care Branch Office Administrator Name Role Phone Ferny Gentile Primary Care Provider [phone] Encounter Details Date Type Department Care Team (Late st Contact Info) Description 12/14/2018 Transcribed Document [facility] [place] [facility] [place] [address] ProviderArt MD [address] [place] [address] Social History Tobacco Use Types Packs/Day [...] RN Intervention Information: traMADol Performed by Amandeep Martniez RN on 12/14/2018 14:23:00 EDT traMADol,50mg Oral [...] on filedocumented in this encounter Care Teams Branch Office Administrator Relationship Specialty Start Date End Date Ferny Gentile [address] [place] [address] PCP - General 05/22/22 documented as of this encounter
--- OUTSIDE RECORDS SUMMARY | 2025-05-01 09:39 | XMS_ITS | Encounter Summary ---
Author Organization [employer] ([place], [place], [place], [place], [place]) Address [address] [place] [address] Care Team Providers Care Personalized Living Manager Nurse Name Role Phone Seferino Ferny Primary Care Provider [phone] Encounter Details Date Type Department Care Team (Late st Contact Info) Description 12/15/2018 Transcribed Document [facility] [place] [facility] [place] [address] ProviderArt MD [address] [place] [address] Social History Tobacco Use Types Packs/Day [...] - Medical Enoxaparin 40 mg, SubCutaneous, Inj, [id number], Routine, Start 12/15/18 9:00:00 EDT (MATTHEW BANEGAS) [...] Q12H Lovenox, 40 mg= 0.4 mL, SubCutaneous, [id number] magnesium oxide, 400 mg= 1 Tab, Oral, [...] EDT Electronically signed by Interface, Sjh Conversion Advanced Practice Professional Cerner at 08/18/2022 11:15 AM CDT documented in this encounter Plan of Treatment Not on file documented as of this encounter Visit Diagnoses Not on filedocumented in this encounter Care Teams Personalized Living Manager Nurse Relationship Specialty Start Date End Date Ferny Gentile [address] [place] [address] PCP - General 05/22/22 documented as of this encounter
--- OUTSIDE RECORDS SUMMARY | 2025-05-01 09:39 | XMS_ITS | Encounter Summary ---
Author Organization [employer] ([place], [place], [place], [place], [place]) Address [address] [place] [address] Care Team Providers Care Shipping & Receiving Lead Name Role Phone SeferinoSakinat Primary Care Provider [phone] Encounter Details Date Type Department Care Team (Late st Contact Info) Description 12/15/2018 Transcribed Document [facility] [place] [address] [place] [address] ProviderArt MD [address] [place] [address] Social History Tobacco Use Types Packs/Day [...] 12/15/2018 14:44 EDT Electronically signed by Marilou [facility] Conversion Armored Service Technician Cerner at 08/18/2022 11:11 AM CDT documented in this encounter Plan of Treatment Not on file documented as of this encounter Visit Diagnoses Not on filedocumented in this encounter Care Teams Shipping & Receiving Lead Relationship Specialty Start Date End Date Seferino Ferny [address] [place] [phone] PCP - General 05/22/22 documented as of this encounter
--- OUTSIDE RECORDS SUMMARY | 2025-05-01 09:39 | XMS_ITS | Encounter Summary ---
Author Organization [employer] ([place], [place], [place], [place], [place]) Address [address] [place] [address] Care Team Providers Care Pattern Developer Name Role Phone SeferinoSakinat Primary Care Provider [phone] Encounter Details Date Type Department Care Team (Late st Contact Info) Description 12/14/2018 Transcribed Document [facility] [place] Family Medicine Count includes the [facility] [address] ProviderArt MD [address] [place] [address] Social History Tobacco Use Types Packs/Day [...] 12/15/2018 1:35 EDT Electronically signed by Marilou [facility] Conversion Ui Lead Developer Cerner at 08/18/2022 11:25 AM CDT documented in this encounter Plan of Treatment Not on file documented as of this encounter Visit Diagnoses Not on filedocumented in this encounter Care Teams Pattern Developer Relationship Specialty Start Date End Date Ferny Gentile [address] [place] [address] PCP - General 05/22/22 documented as of this encounter
--- OUTSIDE RECORDS SUMMARY | 2025-05-01 09:39 | XMS_ITS | Encounter Summary ---
Author Organization [employer] ([place], [place], [place], [place], [place]) Address [address] [place] [address] Care Team Providers Care Pre Coder Name Role Phone SeferinoSakinat Primary Care Provider [phone] Encounter Details Date Type Department Care Team (Late st Contact Info) Description 12/14/2018 Transcribed Document [facility] [place] [facility] [place] [address] ProviderArt MD [address] [place] [address] Social History Tobacco Use Types Packs/Day [...] Empathic/Engaged listening, Family/Significant other supported Spiritual and Yarsanism : Prayer shared Change, Adjustment and Loss [...] on filedocumented in this encounter Care Teams Pre Coder Relationship Specialty Start Date End Date Ferny Gentile [address] [place] [phone] PCP - General 05/22/22 documented as of this encounter
--- OUTSIDE RECORDS SUMMARY | 2025-05-01 09:39 | XMS_ITS | Encounter Summary ---
Author Organization [employer] ([place], [place], [place], [place], [place]) Address [address] [place] [address] Care Team Providers Care Docking Saw Operator Name Role Phone Sakina Gentilet Primary Care Provider [phone] Encounter Details Date Type Department Care Team (Late st Contact Info) Description 12/02/2018 Transcribed Document [facility] [facility] [place] [address] ProviderArt MD [address] [place] [address] Social History Tobacco Use Types Packs/Day [...] [employer] Date : 12/02/2018 EDT Joint Digital Media Buyer Attended Academy : Yes Joint Digital Media Buyer Name : Litzy Naranjo [phone] Type of Surgery : Anterior Hip Replacement, [...] from sitting : Moderate 4. Bending to floor/cotton picking machine operator an object : Moderate 5. [...] on filedocumented in this encounter Care Teams Docking Saw Operator Relationship Specialty Start Date End Date Ferny Gentile [address] [place] [address] PCP - General 05/22/22 documented as of this encounter
--- OUTSIDE RECORDS SUMMARY | 2025-05-01 09:39 | XMS_ITS | Encounter Summary ---
Author Organization [facility] Address [address] [place] [address] Care Team Providers Care City Routeman Name Role Phone Ferny Gentile MD Primary Care Provider [phone] Encounter Details Date Type Department Care Team (Late st Contact Info) Description 02/08/2025 Anticoagulation Visit [facility] [address] [facility] [address] [place] [address] Claudia Bauer, PharmD [address] [place] [address] Social History Tobacco Use Types Packs/Day Years [...] INR History: Date 10/22 10/29 7/11/14/2311/19 8/ 8/12/17 9 Total WeeklyDose 52.5 mg 52.5 mg [...] Tablet Strength: 5mg tablets Patient Contact Info: [phone]; Litzy Naranjo (daughter) Patient Findings Negatives: Signs/symptoms [...] questions at this time. Claudia Bauer PharmD 02/08/2025 15:41 EDT documented in this encounter Plan of Treatment Upcoming Encounters Date Type Department Care Team (Late st Contact Info) Description 06/30/2025 11:30 AM EST Office Visit [facility] RHEUMATOLOGY [address] [facility] [address] [place] [phone] David Bernstein MD [address] [facility] [address] [place] [address] 10/03/2025 2:45 PM EDT Office Visit [facility] CARDIOLOGY [address] [facility] [address] [place] [address] Yon Govea MD [address] [facility] [address] [place] [address] 06/14/2026 1:30 PM EST Office Visit [facility] CARDIOLOG[facility] [address] [place] [address] [address] [place] [address] Wojciech Flores MD [address] [facility] [address] [place], [place] [id number] documented as of this encounter Procedures Procedure Name Priority Date/Time Associated Diagnosis Comments PROTIME-INR Routine 02/08/2025 documented in this encounter Results * Protime-INR (02/08/2025) INR 1.90 Blood us Historical Provider LAB BLOOD ORDERABLES Agata l Result documented in this encounter Visit Diagnoses Not on filedocumented in this encounter Care Teams City Routeman Relationship Specialty Start Date End Date Ferny Gentile MD [address] [facility] [address] [place] [address] PCP - General 06/11/15 documented as of this encounter
--- OUTSIDE RECORDS SUMMARY | 2025-05-01 09:39 | XMS_ITS | Encounter Summary ---
[facility] Organization [facility] Address [address] [place] [address] Care Team Providers Care Science Consultant Name Role Phone Ferny eGntile MD Primary Care Provider [phone] Reason for Visit * Reason Onset Date Comments Med Refill 03/07/2025 [facility]-MED REFILL 03/07/2025 Encounter Details Date Type Department Care Team (Late st Contact Info) Description 03/07/2025 Refill [facility] CARDIOLOGY [address] [address] Wojciech Flores MD [address] [place] [address] Med Refill; [facility]AGER-MED REFILL Social History Tobacco [...] encounter Miscellaneous Notes * Telephone Encounter - Renee Henderson RegSched Rep - 03/07/2025 9:23 AM EST Caller: Luz Skaggs Relationship: Self Best call back number: [phone] Requested Prescriptions: Requested Prescriptions Pending Prescriptions Disp Refills warfarin (COUMADIN) 5 MG tablet 135 tablet 0 Sig: TAKE 1 TO 1 & 1/2 (ONE TO ONE & ONE-HALF) TABLETS BY MOUTH ONCE DAILY OR DIRECTED BY THE ANTICOAGULATION CLINIC Pharmacy where request should be sent: [facility] - [place] - [address] [phone] [facility] [phone] FX Last office visit with prescribing clinician: [...] [facility] [address] [place] [address] David Bernstein MD [address] [facility] [address] [place], [place] [id number] 10/03/2025 2:45 PM EDT Office Visit [facility] CARD[facility] [address] [facility] [address] [place] [address] Yon Gvoea MD [address] [facility] [address] [place] [address] 06/14/2026 1:30 PM EST Office Visit [facility] CARD[facility] [address] [place] [address] [address] [place] [address] Wojciech Flores MD [address] [facility] [address] [place], [place] [phone] documented as of this encounter Visit Diagnoses Not on filedocumented in this encounter Care Teams Science Consultant Relationship Specialty Start Date End Date Ferny Gentile MD [address] [facility] [address] [place] [address] PCP - General 06/11/15 documented as of this encounter
--- OUTSIDE RECORDS SUMMARY | 2025-05-01 09:39 | XMS_ITS | Clinical Summary ---
Author Organization [facility] Address [address] [place] [address] Phone Care Team Providers Care Secondary Set Up Man Name Role Phone MARIAMA MORALEZ, FATOUMATA Blanco Primary Care Provider [phone] Camila MORALEZ, Alanna Bowen Unavailable [phone] Reason for Referral 08/18/2023 Encounter for Follow Up Date Recorded Target Due Date Referral Type Referring Prov ider Reason For Referral 08/18/2023 Hernan Gold PA-C referr al to physician Last Documented On 4 3:03PM ; [facility], [facility] Reason for Visit and Chief Complaint The Chief Complaint is: POV Left TKA Problems Includes: Problems addressed during this encounter and other active Problems All Visits Onset Date Date of Diagnosis Resolved Date Provider Condition Status Joint Pain Wrist Right 04/17/2022 04/17/2022 Ceci Santos APRN Active Last Documented On 5 1:41AM ; [facility] Joint Pain Right Thumb 04/17/2022 04/17/2022 Ceci Santos APRN Active Last Documented On 5 1:41AM ; [facility] Midback Pain 10/17/2020 10/17/2020 Brandon Wilks MD Active Last Documented On 5 1:40AM ; [facility] Joint Pain Left Knee 02/16/2020 02/16/2020 Marianela Cuevas MD Active Last Documented On 5 1:40AM ; [facility] Joint Pain Right Knee 10/29/2016 10/29/2016 Oneyda Jensen MD Active Last Documented On 5 1:38AM ; [facility] Pain in Lumbar Spine 03/13/2016 03/13/2016 James Jensen MD Active Last Documented On 5 1:38AM ; [facility] Joint Pain Hip Left 03/13/2016 03/13/2016 Alanna Jensen MD Active Last Documented On 5 1:38AM ; [facility] Joint Pain Knee 03/10/2012 03/10/2012 Alanna lopes MD Active Last Documented On 5 1:37AM ; [facility] Plan of Treatment Fall Risk Assessment: [...] Documented On 09/01/2023 8:29AM ; [facility] Overall patient is very pleased with the knee surgery, no complaints today. We will plan for follow up 5 year postop intervals - Last Documented On 09/01/2023 8:29AM ; [facility] Instructions to patient Lose weight Last Documented On 4 3:03PM ; [facility] Assessments Includes: Assessments from this encounter Findings - Overweight - Last Documented On 09/01/2023 8:29AM ; [facility] 1 year status post left TKA - Last Documented On 09/01/2023 8:29AM ; [facility] Instructions Includes: Instructions from this encounter Instructions to patient Lose weight Last Documented On 4 3:03PM ; [facility] Medical Equipment - Implanted Devices Includes: Current Devices No Medical Equipment Recorded Medications Includes: Medications discussed during this encounter and other current Medications Current Medications (continue as prescribed) Colestipol HCl 5 GM Oral Packet 04/14/2024 Provider: Diagnosis: Last Documented On 4 11:25AM By Carla Hall ; [facility] Protonix 20 MG Oral Tablet Delayed Release 06/16/2022 Provider: Diagnosis: Last Documented On 3 4:00PM By Elif Chicas ; [facility] Flecainide Acetate 100 MG Oral Tablet 06/16/2022 Pro vider: Diagnosis: Last Documented On 3 4:01PM By Elif Chicas ; [facility] Metoprolol Succinate ER 25 M G Oral Tablet Extended Release 24 Hour 06/12/2022 Provider: Diagnosis: Last Documented On 3 4:00PM By Elif Chicas ; [facility] predniSONE 10 MG Oral Tablet 05/02/2022 Provider: FATOUMATA LESLIE MD Diagnosis: Last Documented On 3 4:00PM By Elif Chicas ; [facility] Lagevrio 200 MG Oral Capsule 04/22/2022 Provider: FATOUMATA LESLIE MD Diagnosis: Last Documented On 3 4:00PM By Elif Chicas ; [facility] Lagevrio 200 MG Oral Capsule 04/22/2022 Provider: FATOUMATA LESLIE MD Diagnosis: Last Documented On 3 4:00PM By Elif Chicas ; [facility] Mupirocin 2% External Ointment 04/16/2022 Provider: Eliseo Cuevas MD Diagnosis: three times a day Apply to n ostrils 3 time a day 5 days prior to surgery. Last Documented On 2 2:50PM By Gilda Kamara ; [facility] MegaRed Godley-3 Krill Oil 350 MG Oral Capsule 10/26/19 21 Provider: Diagnosis: Last Documented On 1 1:15PM By Betzaida Donald ; [facility] Sudafed 30 MG Oral Tablet 10/25/2020 Provider: Diagnosis: Last Documented On 1 1:15PM By Betzaida Donald ; [facility] Mucinex Allergy 180 MG Oral Tablet 10/25/2020 Provid er: Diagnosis: Last Documented On 1 1:14PM By Betzaida Donald ; [facility] Warfarin Sodium 7.5 MG Oral Tablet 10/17/2020 Provid er: Diagnosis: Last Documented On 1 2:43PM By Greer Kingston ; [facility] Ezetimibe 10 MG Oral Tablet 09/11/2020 Provider: FATOUMATA LESLIE MD Diagnosis: Last Documented On 1 1:13PM By Betzaida Donald ; [facility] Digoxin 125 MCG Oral Tablet 07/21/2020 Provider: Diagnosis: Last Documented On 1 2:44PM By Greer Kingston ; [facility] CoQ-10 10 MG Oral Capsule 10/20/2019 Provider: Diagnosis: Last Documented On 0 4:01PM By Greer Kingston ; [facility] D3-1000 25 MCG (1000 UT) Oral Capsule 10/20/2019 Pro vider: Diagnosis: Last Documented On 0 4:00PM By Greer Kingston ; [facility] Omeprazole 20 MG Oral Ta blet Delayed Release Disintegrating 10/20/2019 Provider: Diagnosis: Last Documented On 0 3:59PM By Greer Kingston ; [facility] Probiotic Maximum Strength Oral Capsule 10/20/2019 Provider: Diagnosis: Last Documented On 0 3:58PM By Greer Kingston ; [facility] Citalopram Hydrobromide 10 MG Oral Tablet 10/20/2019 Provider: Diagnosis: Last Documented On 0 3:56PM By Greer Kingston ; [facility] Flecainide Acetate 100 MG Oral Tablet 10/20/2019 Pro vider: Diagnosis: Last Documented On 0 3:55PM By Greer Kingston ; [facility] Past Medications on file oxyCODONE HCl 5 MG Oral Tablet 05/29/2022 - 06/03/2022 Provider: Eliseo ceja MD Diagnosis: 1-2 po q 4-6h Last Documented On 3 12:32PM By Hima Cuevas ; [facility] traMADol HCl 50 MG Oral Tablet 05/29/2022 - 06/03/2022 Provider: Eliseo ceja MD Diagnosis: 1-2 po q 4-6h Last Documented On 3 12:32PM By Hima Cuevas ; [facility] Lovenox 40 MG/0.4ML Injection Solution Prefilled Syringe 05/26/2022 - 05/30/2022 Provider: Eliseo ceja MD Diagnosis: 1 sub q injection 1 time day Last Documented On 3 8:35AM By Hima Cuevas ; [facility] Cefadroxil 500 MG Oral Capsule 05/21/2022 - 05/24/2022 Provider: Elieso ceja MD Diagnosis: twice a day Last Documented On 3 12:08PM By Hima Cuevas ; [facility] Colace 100 MG Oral Capsule 05/21/2022 - 08/19/2022 Provider: Eliseo ceja MD Diagnosis: 1-2 tabs daily Last Documented On 3 12:08PM By Hima Cuevas ; [facility] traMADol HCl 50 MG Oral Tablet 05/21/2022 - 05/26/2022 Provider: Eliseo ceja MD Diagnosis: 1-2 po q 4-6h Last Documented On 3 12:08PM By Hima Cuevas ; [facility] Acetaminophen 500 MG Oral Tablet 05/21/2022 - 06/20/2022 Provider: Eliseo Cuevas MD Diagnosis: 2 three times a day Last Documented On 3 12:08PM By Hima Cuevas ; [facility] oxyCODONE HCl 5 MG Oral Tablet 05/21/2022 - 05/26/2022 Provider: Eliseo ceja MD Diagnosis: 1-2 po q 4-6h Last Documented On 3 12:08PM By Hima Cuevas ; [facility] Ondansetron HCl 4 MG Oral Tablet 05/21/2022 - 05/26/2022 Provider: Eliseo Cuevas MD Diagnosis: [id number] Last Documented On 3 12:08PM By Hima Cuevas ; [facility] Meloxicam 15 MG Oral Tablet 05/21/2022 - 06/20/2022 Provider: Eliseo ceja MD Diagnosis: once a day Last Documented On 3 12:08PM By Hima Cuevas ; [facility] HYDROcodone-Acetaminophen 7. 5-325 MG Oral Tablet 10/25/2020 - 11/14/2020 Provider: Brandon Wilks MD Diagnosis: twice a day Last Documented On 1 12:08PM By Dr. Wilks ; [facility] Premier 5-325MG Oral Tablet 12/23/2018 - 01/22/2019 Provider: Eliseo ceja MD Diagnosis: 1-2 po q6h prn pain Last Documented On 9 3:09PM By Reanna Gutierrez ; [facility] Acetaminophen 500MG Oral Tablet 12/08/2018 - 01/07/2019 Provider: Eliseo Cuevas MD Diagnosis: 2 three times a day FOR BACON RGERY DO NOT FILL UNTIL 12/14/18 Last Documented On 9 4:10PM By Reanna Gutierrez ; [facility] traMADol HCl 50MG Oral Tablet 12/08/2018 - 12/13/2018 Provider: Eliseo ceja MD Diagnosis: 1-2 po q6h prn pain FOR BACON RGERY DO NOT FILL UNTIL 12/14/18 Last Documented On 9 4:06PM By Reanna Gutierrez ; [facility] Neurontin 300MG Oral Capsule 12/08/2018 - 03/08/2019 Provider: Eliseo ceja MD Diagnosis: 1 every bedtime FOR SURGER Y DO NOT FILL UNTIL 12/14/18 Last Documented On 9 4:05PM By Reanna Gutierrez ; [facility] Dilaudid 2MG Oral Tablet 12/08/2018 - 12/10/2018 Provi gaby: Eliseo Cuevas MD Diagnosis: 1-2 po q6h prn pain (RESCUE PAIN) FOR SURGERY DO NOT FILL UNTIL 12/14/18 Last Documented On 9 4:05PM By Reanna Gutierrez ; [facility] Colace 100MG Oral [...] ; [facility] Premier 5-325MG Oral Tablet 12/24/2017 - 12/31/2017 Prov ider: Brandon Wilks MD Diagnosis: 1-2 po q 4-6h PRN Last Documented On 8 5:31PM By Dr. Wilks ; [facility] Premier 7.5-325 MG OR TABS 12/24/2017 - 01/03/2018 Provi gaby: Brandon Wilks MD Diagnosis: Last Documented On 8 11:35AM By Marcelle Croft ; [facility] Voltaren Gel 1% External 10/14/2017 - 12/13/2017 Provi gaby: Alanna Jensen MD Diagnosis: use as directed Last Documented On 8 10:09AM By Sayra Evans ; [facility] Lovenox 40MG/0.4ML Subcutaneous Solution 05/06/2017 - 05/26/2017 Provider: Alanna castaneda MD Diagnosis: use as directed/1 INJECTION PER DAY FOR 5 DAYS PRIOR TO PROCEDER & 1 INJECTION PER DAY FOR 5 DAYS AFTER PROCERDER/ Last Documented On 8 4:29PM By Sayra Evans ; [facility] Premier 5-325 MG Tablet 10/29/2016 - 11/05/2016 Provider : Alanna Jensen MD Diagnosis: 1-2 po q 4-6h PRN Last Documented On 7 11:55AM By Camryn Paez ; [facility] Medrol 4 MG Tablet Therapy Pack 02/14/2016 - 02/20/2016 Provider: Alanna chin MD Diagnosis: use as directed by pharmacy Last Documented On 6 3:16PM By Heather Langley ; [facility] Premier 5-325 MG Tablet 12/03/2015 - 12/18/2015 Provider : Alanna Jensen MD Diagnosis: 1-2 po q 4-6h Last Documented On 6 1:26PM By Heather Langley ; [facility] Premier 7.5-325 MG Tablet 11/16/2015 - 12/16/2015 Provid er: Alanna Jensen MD Diagnosis: 1 every 4 - 6 hours PO PRN Last Documented On 6 2:09PM By Lani Marquez ; [facility] Voltaren 1% TD GEL 01/31/2013 - 03/02/2013 Provider: Alanna Jensen MD Diagnosis: DEGENERATIVE MIKEY NT DISEASE KNEE apply 4 grams to affected ar ea 4 times a day//ks Last Documented On 3 2:16PM By Ann Marie Sutherland ; [facility] Lortab 10-500 MG OR TABS 09/14/2012 - 09/21/2012 Provi gaby: Alanna Jensen MD Diagnosis: [id number] [facility] jsb/df Last Documented On 3 8:56AM By Jose F Gutierrez ; [facility] Lortab 10-500 MG OR TABS 08/06/2012 - 08/13/2012 Provi gaby: Alanna Jensen MD Diagnosis: [phone] [employer] jsb/df Last Documented On 3 1:59PM By Jose F Gutierrez ; [facility] Lortab 10-500 MG OR TABS 07/09/2012 - 07/16/2012 Provi gaby: Alanna Jensen MD Diagnosis: [phone] [employer] jsb Last Documented On 3 12:36PM By Jose F Gutierrez ; [facility] Lortab 10-500 MG OR TABS 07/01/2012 - 07/08/2012 Provi gaby: Alanna Jensen MD Diagnosis: [id number] [employer] df Last Documented On 3 1:53PM By Jose F Gutierrez ; [facility] Xarelto 10 MG OR TABS 06/14/2012 - 07/05/2012 Provider : Alanna Jensen MD Diagnosis: sx on 06-15-12 Last Documented On 3 1:31PM By Danielle Dobson ; [facility] Lortab 10-500 MG OR TABS 06/14/2012 - 06/21/2012 Provi gaby: Alanna Jensen MD Diagnosis: sx on 06-15-12 Last Documented On 3 1:31PM By Danielle Dobson ; [facility] Medications Administered Includes: Administered Medications from this encounter No Administered Medications Recorded Vital Signs Includes: Vital Signs from this encounter Vital Name 08/18/2023 03:29P Height (in) 65 Weight (lb) 172 Body Mass Index 28.6 Body Surface Area 1.9 Note: tm Last Documented: On 08/18/2023 3:30PM ; [facility] Results Includes: Results discussed during this encounter No Results Recorded For Specified Dates History of Present Illness Includes: History of Present Illness from this encounter HPI Luz Skaggs is an 83 year old female. - Allergy list reviewed - Problem list reviewed - Medication list reviewed Social History Description Last Updated Tobacco non-user 04/14/2024 Last Documented On 4 3:03PM ; [facility] Alcohol use 10/25/2020 Last Documented On 4 3:03PM ; [facility] Recent change in diet 10/25/2020 Last Documented On 4 3:03PM ; [facility] Non-smoker 10/17/2020 Last Documented On 4 3:03PM ; [facility] Not exercising regularly 10/31/2019 Last Documented On 4 3:03PM ; [facility] Sex - Female 09/12/2024 Last Documented On 5 9:46AM ; [facility] Smoking Status Unknown Procedures and Surgical History Includes: Procedures from this encounter Procedures Code Diagnosis Performing Provider Service L ocation Service Date use of tobacco assessment performed 1000F Last Documented On 4 3:03PM ; [facility] patient screened for future fall risk: documentation of any fall with injury in past year 1100F Last Documented On 4 3:03PM ; [facility] review of medications documented 1160F Last Documented On 4 3:30PM ; [facility] follow-up visit in one month Last Documented On 4 3:03PM ; [facility] referral to physician Last Documented On 4 3:03PM ; [facility] an X-ray was performed 19288 Last Documented On 4 3:03PM ; [facility] Surgical History Last Updated History of back surgery 11/2019-Kypho T1 2 10/17/2020 Last Documented On 4 3:03PM ; [facility] History of heart surgery ablation 2017 0 10/31/2019 Last Documented On 4 3:03PM ; [facility] History of total hip replacement left hi p 201810/31/2019 Last Documented On 4 3:03PM ; [facility] History of total knee arthroplasty right knee 201210/31/2019 Last Documented On 4 3:03PM ; [facility] History of hysterectomy 10/16/2014 Last Documented On 4 3:03PM ; [facility] Medical History Includes: Medical History addressed during this encounter Description Last Updated Recent immunization for flu 02/01/2022 1 06/15/2023 Last Documented On 4 3:03PM ; [facility] Recent immunization for pneumococcal pne umonia 201304/14/2024 Last Documented On 4 3:03PM ; [facility] History of Irregular Heartbeat A-fib; ep isode after TKA- cadiovert needed 06/16/2022 Last Documented On 4 3:03PM ; [facility] blood transfusions 10/25/2020 Last Documented On 4 3:03PM ; [facility] Arthritis 10/25/2020 Last Documented On 4 3:03PM ; [facility] Heartburn / Acid Reflux 10/25/2020 Last Documented On 4 3:03PM ; [facility] History of Blood Clots 10/25/2020 Last Documented On 4 3:03PM ; [facility] History of Blood Transfusion 10/25/2020 Last Documented On 4 3:03PM ; [facility] History of Cancer 10/25/2020 Last Documented On 4 3:03PM ; [facility] History of Fractures 10/25/2020 Last Documented On 4 3:03PM ; [facility] History of heart disease 10/25/2020 Last Documented On 4 3:03PM ; [facility] Hypertension 10/25/2020 Last Documented On 4 3:03PM ; [facility] Irregular Heartbeat 10/25/2020 Last Documented On 4 3:03PM ; [facility] Past Surgical History: wrist repair ~hand sx ~gallstone sx 2011 ~mastectomy and reconstruction ~colonoscopy 2018 10/25/2020 Last Documented On 4 3:03PM ; [facility] Previous Fractures 10/25/2020 Last Documented On 4 3:03PM ; [facility] Sleep Apnea 10/25/2020 Last Documented On 4 3:03PM ; [facility] Use of CPAP 10/25/2020 Last Documented On 4 3:03PM ; [facility] Back surgery 12/15/2017 L4-5 Posterior Decompression and Fusion @ [facility] ~11/07/2019 T12 Kyphyoplasty 10/25/2020 Last Documented On 4 3:03PM ; [facility] Heart surgery pacemaker 12/2019 ~Afib ab lation 10/25/2020 Last Documented On 4 3:03PM ; [facility] History of Gallbladder 10/25/2020 Last Documented On 4 3:03PM ; [facility] Hysterectomy 10/25/2020 Last Documented On 4 3:03PM ; [facility] Total hip replacement 12/2018-Left hip 0 10/17/2020 Last Documented On 4 3:03PM ; [facility] A previous fracture 10/31/2019 Last Documented On 4 3:03PM ; [facility] Gallbladder disease 2018 10/31/2019 Last Documented On 4 3:03PM ; [facility] History of diverticulitis of colon 11/15 Last Documented On 4 3:03PM ; [facility] History of osteoporosis 11/16/2015 Last Documented On 4 3:03PM ; [facility] A history of cancer 10/16/2014 Last Documented On 4 3:03PM ; [facility] Arthritic joint problems 10/16/2014 Last Documented On 4 3:03PM ; [facility] Family History Includes: Family History addressed during this encounter Description Last Updated Family history of cancer mother ~father 11/16/2015 Last Documented On 4 3:03PM ; [facility] Family history of diabetes mellitus moth er 11/16/2015 Last Documented On 4 3:03PM ; [facility] Family history of heart disease mother ~ father 11/16/2015 Last Documented On 4 3:03PM ; [facility] Family history of hypertension mother ~f ather 11/16/2015 Last Documented On 4 3:03PM ; [facility] Family history of osteoporosis mother Last Documented On 4 3:03PM ; [facility] Family history of rheumatoid arthritis m other 11/16/2015 Last Documented On 4 3:03PM ; [facility] Family history of thromboembolic disease mother 11/16/2015 Last Documented On 4 3:03PM ; [facility] Maternal history of hypertension 015 Last Documented On 4 3:03PM ; [facility] Maternal history of osteoporosis 015 Last Documented On 4 3:03PM ; [facility] Review of Systems Includes: Review [...] Description No anxiety Last Documented On 4 3:03PM ; [facility] Physical Exam Includes: Physical Exam from this [...] 4 12:09PM ; [facility] Care Secondary Set Up Man Name (Identifier) Role/Relation Location/Telecom Last Documented By FATOUMATA LESLIE MD ([id number]) Primary care physician (occupation) [address], [address], [place], [place], [place], [address] tel: Last Documented On 09/12/2024 9:46AM ; [facility] Alanna Jensen MD ([id number]) Assigned practitioner (occupation) tel: Last Documented On 09/12/2024 9:46AM ; [facility] Encounters Encounter Provider Location (Healthcare Service Location) Date Check-In Time Check-Out Time Diagnosis Encounter Disposition Follow Up Hernan Gold PA-C [facility] 2023 3:15PM 3:34PM Overweight Payer Includes: Active Insurance Policies Plan Name (Payer ID) Coverage Type Member ID Group # Subscriber (ID) Relationship Effective Dates 1 - Medicare Part B [facility] ([id number]) [id number] Luz Skaggs Self 04/03/2007 - Unknown Last Documented On 9 10:11AM ; [facility] - [facility] [id number]) [id number] PLAN F Luz Skaggs Self 05/04/19 12 - Unknown Last Documented On 3 7:45AM ; [facility] Clinical Notes Includes: Clinical Notes from this encounter * Progress note Date Encounter Last Documented by 08/18/2023 Follow Up Last documented on 09/01/2023; 8:29 AM, Hernan Gold PA-C; [facility] Active Problems & Conditions - Joint [...] directed 0 days, 0 refills - Ipratropium Crane 0.03% Nasal Solution take as directed 0 days, 0 refills - Lagevrio 200 MG Oral Capsule 5 days, 0 refills - Lagevrio 200 MG Oral Capsule 5 days, 0 refills - MegaRed Godley-3 Krill Oil 350 MG Oral Capsule once [...] refills - Sudafed 30 MG Oral Tablet [id number] 0 days, 0 refills - Warfarin Sodium [...] 12/15/2017 L4-5 Posterior Decompression and Fusion @ [facility] 11/07/2019 T12 Kyphyoplasty [...] Care Team - FATOUMATA LESLIE MD - CAREER AGENT
--- OUTSIDE RECORDS SUMMARY | 2025-05-01 09:39 | XMS_ITS | Encounter Summary ---
Author Organization [employer] ([place], [place], [place], [place], [place]) Address [address] [place] [address] Care Team Providers Care Gas Appliance Adjuster Name Role Phone Ferny Gentile Primary Care Provider [phone] Encounter Details Date Type Department Care Team (Late st Contact Info) Description 12/14/2018 Transcribed Document [facility] Family Medicine [facility] [place] [address] ProviderArt MD [address] [place] [address] Social History Tobacco Use Types Packs/Day [...] OR PreOp Summary Primary Physician: MATTHEW BANEGAS MD-HEAVENT Finalized Date/Time: 12/14/18 09:40:09 Pt. Name: UZAIR MADERA /Sex: 1940 Female Med Rec #: [id number] Physician: MATTHEW BANEGAS MD-TITO Financial #: [id number] Pt. Type: I Room/Bed: [facility]/ Admit/Disch: 12/14/18 04:48:00 - Institution: [facility] PreOp Case Times Entry 1 In Preop 12/14/18 05:30:00 Ready for Holding n/a Room Patient Ready for 12/14/18 06:49:00 Surgery Patient Out of Preop 12/14/18 07:27:00 Patient Out of n/a Holding Room Last Modified By: SYDNI MCGREGOR 12/14/18 09:40:09 [facility] PreOp Case Times Audit 12/14/18 09:40:09 Sales Team Leader: [email or web address] Modifier: [email or web address] <+> 1 Patient Out of Preop 12/14/18 06:49:39 Sales Team Leader: ETIENNE Modifier: [email or web address] <+> 1 Patient Ready for Surgery Finalized By: SYDNI MCGREGOR Document Signatures Signed By: SYDNI MCGREGOR 12/14/18 09:40 documented in this encounter Plan of Treatment Not on file documented as of this encounter Visit Diagnoses Not on filedocumented in this encounter Care Teams Gas Appliance Adjuster Relationship Specialty Start Date End Date Ferny Gentile [address] [place] [address] PCP - General 05/22/22 documented as of this encounter
--- OUTSIDE RECORDS SUMMARY | 2025-05-01 09:39 | XMS_ITS | Encounter Summary ---
[facility] Organization [facility] Address [address] [place] [address] Care Team Providers Care Rn Care Manager Name Role Phone Ferny Gentile MD Primary Care Provider [phone] Encounter Details Date Type Department Care Team (Late st Contact Info) Description 02/10/2025 Telephone [facility] [address] [place] [address] [place] [address] Dayron Diallo, Master Merchandiser Social History Tobacco Use Types Packs/Day Years [...] 02/13/2025 12:17 EDT * Telephone Encounter - Josefina Geiger RPH - 02/10/2025 1:[address] Govea, We were recently informed that Luz Skaggs is undergoing a colonoscopy on 03/02/[address] Cody Quiroz at [facility]. Dr. Quiroz deferred perioperative warfarin plan to the patient's enterprise software developer. Luz Skaggs is on warfarin for paroxysmal [...] procedure. Josefina Geiger RPH 02/10/2025 13:50 EDT [facility] phone fax * Telephone Encounter - Dayron Diallo Master Merchandiser - 02/10/2025 9:30 AM EDT Per Nasreen at Dr. Quiroz office the warfarin hold prior to colonoscopy on 03/02 is determined by the patient's enterprise software developer. Dayron Diallo CPHT 02/10/2025 09:31 EDT documented in this encounter Plan of Treatment Upcoming Encounters Date Type Department Care Team (Late st Contact Info) Description 06/30/2025 11:30 AM EST Office Visit [facility] RHEUMATOLOGY [address] [phone] David Bernstein MD [address] [facility] [address] [place] [address] 10/03/2025 2:45 PM EDT Office Visit [facility] CARDIOLOGY [address] [facility] [address] [place] [address] Yon Govea MD 1720 [facility] [address] [place], [place] [address] 06/14/2026 1:30 PM EST Office Visit [facility] C[facility] [address] [place] [address] [address] Wojciech Flores MD 1720 [facility] [address] [place], [place] [id number] documented as of this encounter Visit Diagnoses Not on filedocumented in this encounter Care Teams Rn Care Manager Relationship Specialty Start Date End Date Ferny Gentile MD 1210 [facility] [address] [place] [address] PCP - General 06/11/15 documented as of this encounter
--- OUTSIDE RECORDS SUMMARY | 2025-05-01 09:39 | XMS_ITS | Encounter Summary ---
Author Organization [employer] ([place], [place], [place], [place], [place]) Address [address] [place] [address] Care Team Providers Care Skilled Helper Name Role Phone Ferny Gentile Primary Care Provider [phone] Encounter Details Date Type Department Care Team (Late st Contact Info) Description 12/14/2018 Transcribed Document [facility] [place] [facility] [place] [address] ProviderArt MD [address] [place] [address] Social History Tobacco Use Types Packs/Day [...] ipratropium 42 mcg/inh (0.06%) nasal spray 2 [place], Nasal, BID Konsyl , Oral, Daily magnesium [...] SPENT 45 MINUTES Electronically signed by Marilou [facility] Conversion Hedge Fund Principal Cerner at 08/18/2022 11:32 AM CDT documented in this encounter Plan of Treatment Not on file documented as of this encounter Visit Diagnoses Not on filedocumented in this encounter Care Teams Skilled Helper Relationship Specialty Start Date End Date Ferny Gentile [address] [place] [address] PCP - General 05/22/22 documented as of this encounter
--- OUTSIDE RECORDS SUMMARY | 2025-05-01 09:39 | XMS_ITS | Referral Summary ---
Author Organization [employer] ([place], [place], [place], [place], [place]) Address [address] [place] [address] Care Team Providers Care Record Keeper Name Role Phone SeferinoSakinat Primary Care Provider [phone] Allergies Active Allergy Reactions Criticality Noted Date [...] oxide 400 mg magnesium Tab daily. Active qi-qjw-moxumy- evE03-xft-amu- 27 0.5-30-60-90 mg Cap daily. Active cholecalcifero [...] Date Alfredo rded Speak language other than Tunisian at home Not on file 05/22/2023 Want [...] on file Medical Devices Implanted Type Area Department Store General Manager Device Identifier Shelf Expiration Date Model / Serial / Lot Cement Bone [place] Hv 40/20 600-15-000 - [id number] Implanted:Qty : 2 on 05/26/2022 by Eliseo Cuevas MD at [facility] IMPLANTS Left: Knee DJ SURG:ENCORE MED:BRIANTANOOGA 05/30/2023 600-15-00 0 / / [id number] Ty Tib I-Beam Fix Biomet 75mm [id number] - [id number] Implanted:Qty : 1 on 05/26/2022 by Eliseo Cuevas MD at [facility] TOTAL JOINT CONSTRUCT Left: Knee BIOMET 03/26/2032 [id number] / / [id number] Patella Std 8x31mm [id number] - [id number] Implanted:Qty : 1 on 05/26/2022 by Eliseo Cuevas MD at [facility] TOTAL JOINT CONSTRUCT Left: Knee BIOMET 03/12/2027 [id number] / / [id number] Comp Fem Ps Vangrd 65mm [id number] - [id number] Implanted:Qty : 1 on 05/26/2022 by Eliseo Cuevas MD at [facility] TOTAL JOINT CONSTRUCT Left: Knee BIOMET 10/13/2029 [id number] / / [id number] Insrt Tib Bear Ps 10x71/75 [id number] - [id number] Implanted:Qty : 1 on 05/26/2022 by Eliseo Cuevas MD at [facility] TOTAL JOINT CONSTRUCT Left: Knee BIOMET 11/07/2025 [id number] / / [id number] Insurance [place]IC[place] [place] [address] Advance Directives For more information, please contact: [phone] * Full Code (Latest Code Status on File) Date Activated Date Inactivated Comments 05/26/2022 3:06 PM 05/29/2022 8:04 PM * Full Code Date Activated Date Inactivated Comments 05/26/2022 8:57 AM 05/26/2022 3:06 PM Care Teams Record Keeper Relationship Specialty Start Date End Date Ferny Gentile [address] [place] [address] PCP - General 05/22/22
--- OUTSIDE RECORDS SUMMARY | 2025-05-01 09:39 | XMS_ITS | Encounter Summary ---
Author Organization [employer] ([place], [place], [place], [place], [place]) Address [address] [place] [address] Care Team Providers Care Tray Line Supervisor Name Role Phone Ferny Gentile Primary Care Provider [phone] Encounter Details Date Type Department Care Team (Late st Contact Info) Description 12/14/2018 Transcribed Document [facility] [place] [facility] [place] [address] ProviderArt MD [address] [place] [address] Social History Tobacco Use Types Packs/Day [...] LOKI BLANTON OTR/Buck - 12/15/2018 10:58 EDT Electrical Contacts Adjuster Goals, OT Other LTG Grid Goal #1 [...] on filedocumented in this encounter Care Teams Tray Line Supervisor Relationship Specialty Start Date End Date Ferny Gentile [address] [place] [address] PCP - General 05/22/22 documented as of this encounter
--- OUTSIDE RECORDS SUMMARY | 2025-05-01 09:39 | XMS_ITS | Encounter Summary ---
Author Organization [employer] ([place], [place], [place], [place], [place]) Address [address] [place] [address] Care Team Providers Care Collaborative Teacher Name Role Phone Douglas Gentileght Primary Care Provider [phone] Encounter Details Date Type Department Care Team (Late st Contact Info) Description 12/15/2018 Transcribed Document [facility] [place] Medicine [facility] [place] [address] ProviderArt MD [address] [place] [address] Social History Tobacco Use Types Packs/Day [...] on filedocumented in this encounter Care Teams Collaborative Teacher Relationship Specialty Start Date End Date Ferny Gentile [address] [place] [address] PCP - General 05/22/22 documented as of this encounter
--- OUTSIDE RECORDS SUMMARY | 2025-05-01 09:39 | XMS_ITS | Encounter Summary ---
Author Organization [facility] Address [address] [place] [address] Care Team Providers Care Bread Oven Operator Name Role Phone Ferny Gentile MD Primary Care Provider [phone] Encounter Details Date Type Department Care Team (Latest Contact Info) Description 12/10/2020 Anticoagulation Visit [facility] [address] [place] [address] [address] [place] [address] Leticia Vivar, Dietitian Helper Paroxysmal 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 (Primary Dx) Social History [...] Description 06/30/2025 11:30 AM EST Office Visit [facility] RHEUMATOLOGY [address] [address] David Bernstein MD 330 [facility] 100 [place] [address] 10/03/2025 2:45 PM EDT Office Visit [facility] CARDIOLOGY [address] [facility] [address] [place] [address] Yon Govea MD 1720 [facility] [address] [place], [place] [address] 06/14/2026 1:30 PM EST Office Visit [facility] CARDIOLOGY [address] [place] [place] [address] [address] Wojciech Flores MD 1720 [facility] [address] [place] [address] documented as of this encounter [...] documented as of this encounter Care Teams Bread Oven Operator Relationship Specialty Start Date End Date Ferny Gentile MD 1210 [facility] [address] [place] [address] PCP - General 06/11/15 documented as of this encounter
--- OUTSIDE RECORDS SUMMARY | 2025-05-01 09:39 | XMS_ITS | Encounter Summary ---
Author Organization [employer] ([place], [place], [place], [place], [place]) Address [address] [place] [address] Care Team Providers Care Quantity Surveyor Name Role Phone Sakina Gentilet Primary Care Provider [phone] Encounter Details Date Type Department Care Team (Late st Contact Info) Description 12/14/2018 Transcribed Document [facility] [place] [address] ProviderArt MD [address] [place] [address] Social History Tobacco Use Types Packs/Day [...] 12/14/2018 14:53 EDT by NICHOLE ARIZMENDI Care Management-Hair Assistant Care Management Progress Note Discharge Arrangements : [...] Medical Necessity : Yes NICHOLE ARIZMENDI, Care Management-Hair Assistant - 12/14/2018 14:53 EDT Electronically signed by Marilou [facility] Conversion Revenue Cycle Consultant Cerner at 08/18/2022 11:26 AM CDT documented in this encounter Plan of Treatment Not on file documented as of this encounter Visit Diagnoses Not on filedocumented in this encounter Care Teams Quantity Surveyor Relationship Specialty Start Date End Date Ferny Gentile [address] [place] [address] PCP - General 05/22/22 documented as of this encounter
--- OUTSIDE RECORDS SUMMARY | 2025-05-01 09:39 | XMS_ITS | Encounter Summary ---
Author Organization [employer] ([place], [place], [place], [place], [place]) Address [address] [place] [address] Care Team Providers Care Is Support Analyst Name Role Phone Ferny Gentile Primary Care Provider Encounter Details Date Type Department Care Team (Late st Contact Info) Description 12/02/2018 Transcribed Document [facility] Family Medicine Replaced [facility] [place] [address] ProviderArt MD [address] [place] [address] Social History Tobacco Use Types Packs/Day [...] ipratropium 21 mcg/inh (0.03%) nasal spray 2 [place], Nasal, BID kynsol magnesium oxide 400 mg [...] Lymph # 1.40 K/uL 12/02/2018 12:[address] [facility] % 17.1 % (High) 12/02/2018 12:[address] [facility] # 1.07 K/uL (High) 12/02/2018 12:03 EDT [...] Appearance CLEAR2 12/02/2018 12:03 EDT Urine Specific [place] 1.013 12/02/2018 12:03 EDT Urine pH Dipstick [...] nitrites, neg LE Electronically signed by Interface, [facility] Conversion Ems Coordinator Cerner at 08/18/2022 11:07 AM CDT documented in this encounter Plan of Treatment Not on file documented as of this encounter Visit Diagnoses Not on filedocumented in this encounter Care Teams Is Support Analyst Relationship Specialty Start Date End Date Seferino Ferny [address] [place] [address] PCP - General 05/22/22 documented as of this encounter
--- OUTSIDE RECORDS SUMMARY | 2025-05-01 09:40 | XMS_ITS | Encounter Summary ---
Author Organization [facility] Address [address] [place] [address] Care Team Providers Care Metal Slitter Name Role Phone Ferny Gentile MD Primary Care Provider [phone] Encounter Details Date Type Department Care Team (Late st Contact Info) Description 04/07/2025 Anticoagulation Visit [facility] [address] [facility] [address] [place] [address] [facility] [address] [place] [address] Social History Tobacco Use Types Packs/Day Years [...] this encounter Progress Notes * Nuzhat Melvin, [facility] - 04/07/2025 12:14 PM EST [facility] Progress Note Patient Demographics Method of INR reporting: ACELIS HOME MONITOR Estimated OOP Cost: Indication: Paroxsymal Atrial Fibrillation (I48.0) Referring Provider Wojciech Flores MD Reason patient is not on a DOAC: Undetermined Goal INR: 2-3 Warfarin Start Date Fall 2014 Reason patient is not on home monitor: [id number]: CHF (1), HTN (1), Age >74 (2), [...] Naranjo Preferred contact number: Alternative contact number(s): [phone] ([employer]) Patient Appropriate for WarfNoCall ? [...] Visit [facility] RHEUM[facility]OLOGY [address] [place] [address] David Bernstein MD [address] [place] [address] 10/03/2025 2:45 PM EDT Office Visit [facility] CARDI[facility] [address] [facility] [address] [place] [address] Yon Govea MD 1720 [facility] [address] [place], [place] [address] 06/14/2026 1:30 PM EST Office Visit [facility] CARDI[facility] [address] [place] [address] Wojciech Flores MD 1720 [facility] [address] [place], [place] [address] documented as of this encounter Procedures Procedure Name Priority Date/Time Associated Diagnosis Comments PROTIME-INR Routine 04/07/2025 documented in this encounter Results * Protime-INR (04/07/2025) INR 2.80 Blood us Historical Provider LAB BLOOD ORDERABLES Agata l Result documented in this encounter Visit Diagnoses Not on filedocumented in this encounter Care Teams Metal Slitter Relationship Specialty Start Date End Date Ferny Gentile MD [address] [facility] [address] [place] [address] PCP - General 06/11/15 documented as of this encounter
--- OUTSIDE RECORDS SUMMARY | 2025-05-01 09:40 | XMS_ITS | Encounter Summary ---
Author Organization [employer] ([place], [place], [place], [place], [place]) Address [address] [place] [address] Care Team Providers Care Embedded Systems Software Developer Name Role Phone Douglas Gentileght Primary Care Provider [phone] Encounter Details Date Type Department Care Team (Late st Contact Info) Description 12/14/2018 Transcribed Document [facility] Family Medicine [facility] [place] [address] ProviderArt MD [address] [place] [address] Social History Tobacco Use Types Packs/Day [...] ipratropium 21 mcg/inh (0.03%) nasal spray 2 [place], Nasal, BID kynsol magnesium oxide 400 mg [...] 7.5 mg = 1 Tab, Oral, Daily [place] 7.5/325mg 1-2 tabs PO Q6hrs PRN Dilaudid 2mg Q6hrs PRN (extreme pain only, this is not for management of pain but for rescue only) Tramadol 50mg 1 tab Q 6hrs PRN Lovenox 40mg SubQ daily x 4 doses Colace 100mg 1 tab daily Gabapentin 300mg 1 tab QHS Electronically signed by Marilou, [facility] Conversion Dirt Contractor Cerner at 08/18/2022 11:18 AM CDT documented in this encounter Plan of Treatment Not on file documented as of this encounter Visit Diagnoses Not on filedocumented in this encounter Care Teams Embedded Systems Software Developer Relationship Specialty Start Date End Date Ferny Gentile [address] [place] [address] PCP - General 05/22/22 documented as of this encounter
--- OUTSIDE RECORDS SUMMARY | 2025-05-01 09:40 | XMS_ITS | Encounter Summary ---
Author Organization [facility] Address [address] [place] [address] Care Team Providers Care Biazzi Nitrator Operator Name Role Phone Ferny Gentile MD Primary Care Provider [phone] Encounter Details Date Type Department Care Team (Late st Contact Info) Description 03/17/2025 Anticoagulation Visit [facility]INIC [address] [place] [address] [address] [place] [address] Karen Mace, Mass Spec Social History Tobacco Use Types Packs/Day Years [...] this encounter Progress Notes * Karen Mace, Mass Spec - 03/17/2025 1:14 PM EST [facility] Progress Note Patient Demographics Method of INR reporting: ACELIS HOME MONITOR Estimated OOP Cost: Indication: Paroxsymal Atrial Fibrillation (I48.0) Referring Provider Wojciech Flores MD Reason patient is not on a DOAC: Undetermined Goal INR: 2-3 Warfarin Start Date Fall 2014 Reason patient is not on home monitor: [id number]: CHF (1), HTN (1), Age >74 (2), [...] Rec'd 11/08 Inc GLV Medrol APAP Date 10/8 1002/24 Total Weekly Dose 52.5 mg 52.5 mg 52.5 mg 32.5 mg 57.5 mg 60 mg 65 mg INR 1.9 2.7 1.8 1.2 1.5 1.7 2.2 Notes Hold x 5 enox Patient Contact Information Verbal release: Signed 06/29/19 -- May speak with Litzy Naranjo Preferred contact number: Alternative contact number(s): [phone] ([employer]) Patient Appropriate for WarfNoCall ? [...] questions at this time. Karen Mace CPhT, [facility] 13:34 EST 03/17/2025 Claudia Mathis, Garret, have reviewed the note in full and agree with the assessment and plan. 03/17/25 13:39 EST documented in this encounter Plan of Treatment Upcoming Encounters Date Type Department Care Team (Late st Contact Info) Description 06/30/2025 11:30 AM EST Office Visit [facility] RHEUM[facility]Y [address] [place] [address] David Bernstein MD [address] [place] [address] 10/03/2025 2:45 PM EDT Office Visit [facility] CARDIOLOGY [address] [facility] [address] [place] [address] Yon Govea MD 1720 [facility] [address] [place], [place] [address] 06/14/2026 1:30 PM EST Office Visit [facility] CARD[facility] [address] [place] [address] [place] [address] Wojciech Flores MD 1720 [facility] [address] [place], [place] [address] documented as of this encounter Procedures Procedure Name Priority Date/Time Associated Diagnosis Comments PROTIME-INR Routine 03/17/2025 documented in this encounter Results * Protime-INR (03/17/2025) INR 2.20 Blood 03/17/2025 us Historical Provider LAB BLOOD ORDERABLES Agata l Result documented in this encounter Visit Diagnoses Not on filedocumented in this encounter Care Teams Biazzi Nitrator Operator Relationship Specialty Start Date End Date Ferny Gentile MD 12[address] [place] [facility] [address] [place] [address] PCP - General 06/11/15 documented as of this encounter
--- OUTSIDE RECORDS SUMMARY | 2025-05-01 09:40 | XMS_ITS ---
Care Plan - [facility] Created on: May 01, 2025 Skaggs Luz Pantoja : 1940 Sex: Female Author Organization [facility] Address [address] [place] [address] Phone Care Team Providers Care Aircraft Captain Name Role Phone MARIAMA MORALEZ, FATOUMATA Blanco Primary Care Provider [phone] Camila MORALEZ, Alanna Bowen Unavailable [phone]
--- OUTSIDE RECORDS SUMMARY | 2025-05-01 09:40 | XMS_ITS | Encounter Summary ---
[facility] Address [address] [place] [address] Care Team Providers Care Elevator Constructor Electric Name Role Phone Ferny Gentile MD Primary Care Provider [phone] Encounter Details Date Type Department Care Team (Late st Contact Info) Description 03/28/2025 Telephone [facility] CLINIC [address] [place] [address] [place] [address] Karen Mace, Sccm Administrator Social History Tobacco Use Types Packs/Day Years [...] Notes * Telephone Encounter - Karen Mace, Sccm Administrator - 03/28/2025 10:19 AM EST Patient called [...] 06/30/2025 11:30 AM EST Office Visit [facility] RHE[facility] [address] [address] David Bernstein MD [address] [address] 10/03/2025 2:45 PM EDT Office Visit [facility] CARDIOLOG[facility] [address] [facility] [address] [place] [address] Yon Govea MD 1720 [facility] 400 [place] [address] 06/14/2026 1:30 PM EST Office Visit [facility] CARD[facility] [address] [place] [address] [place] [address] Wojciech Flores MD 1720 [facility] [address] [place], [place] [address] documented as of this encounter Visit Diagnoses Not on filedocumented in this encounter Care Teams Elevator Constructor Electric Relationship Specialty Start Date End Date Ferny Gentile MD 1210 [facility] [address] [place] [address] PCP - General 06/11/15 documented as of this encounter
--- OUTSIDE RECORDS SUMMARY | 2025-05-01 09:40 | XMS_ITS | Encounter Summary ---
Author Organization [employer] ([place], [place], [place], [place], [place]) Address [address] [place] [address] Care Team Providers Care Electrical Lineworker Name Role Phone Douglas Gentileght Primary Care Provider [phone] Encounter Details Date Type Department Care Team (Late st Contact Info) Description 12/14/2018 Transcribed Document [facility] [place] [facility] [place] [address] ProviderArt MD [address] [place] [address] Social History Tobacco Use Types Packs/Day [...] Barley. Bulgur wheat. Millet. Bran muffins. Popcorn. [place] wafer crackers. Vegetables Sweet potatoes. Spinach. Kale. Artichokes. Cabbage. Broccoli. Green peas. Carrots. Squash. Fruits Berries. Pears. Apples. Oranges. Avocados. Prunes and raisins. Dried figs. Meats and Other Protein Sources [place], kidney, shrestha, and soy beans. Split peas. [...] zuri has 11 g of protein. ?? Plains seeds - 1 oz has 5.5 g [...] floor. ?? Place frequently used items in tewb-bj-viaxs places ?? Keep electrical cables out of [...] ?? Using the bathroom. ?? Using household implant coordinator or toxic chemicals. ?? Touching or taking [...] filedocumented in this encounter Care Teams Electrical Lineworker Relationship Specialty Start Date End Date Ferny Gentile [address] [place] [id number] PCP - General 05/22/22 documented as of this encounter
--- OUTSIDE RECORDS SUMMARY | 2025-05-01 09:40 | XMS_ITS | Encounter Summary ---
Author Organization [facility] Address [address] [place] [address] Care Team Providers Care Geotechnical Operating Engineer Name Role Phone Ferny Gentile MD Primary Care Provider [phone] Encounter Details Date Type Department Care Team (Late st Contact Info) Description 03/29/2025 Anticoagulation Visit [facility] [address] [facility] [address] [place] [address] Claudia Bauer, PharmD [address] [place] [address] Social History Tobacco Use Types Packs/Day Years [...] Bauer, PharmD - 03/29/2025 11:26 AM EST [facility] Anticoagulation Clinic Progress Note Patient Demographics Method of INR reporting: ACELIS HOME MONITOR Estimated OOP Cost: Indication: Paroxsymal Atrial Fibrillation (I48.0) Referring Provider Wojciech Flores MD Reason patient is not on a DOAC: Undetermined Goal INR: 2-3 Warfarin Start Date Fall 2014 Reason patient is not on home monitor: [id number]: CHF (1), HTN (1), Age >74 (2), [...] Naranjo Preferred contact number: Alternative contact number(s): [phone] ([employer]) Patient Appropriate for WarfNoCall ? [...] questions at this time. Claudia Bauer, PharmD 03/29/2025 11:26 EST documented in this encounter Plan of Treatment Upcoming Encounters Date Type Department Care Team (Late st Contact Info) Description 06/30/2025 11:30 AM EST Office Visit [facility] RHEUMATOLOGY [address] [facility] [address] [place] [address] David Bernstein MD 330 [facility] [address] [place], [place] [id number] 10/03/2025 2:45 PM EDT Office Visit [facility] CARDIOLOGY [address] [facility] [address] [place] [address] Yon Govea MD [address] [facility] [address] [place], [place] [id number] 06/14/2026 1:30 PM EST Office Visit [facility] CARDIOLOGY [address] [place] [address] Wojciech Flores MD [address] [facility] [address] [place], [place] [id number] documented as of this encounter Procedures Procedure Name Priority Date/Time Associated Diagnosis Comments PROTIME-INR Routine 03/29/2025 documented in this encounter Results * Protime-INR (03/29/2025) INR 2.00 Blood us Historical Provider LAB BLOOD ORDERABLES Agata l Result documented in this encounter Visit Diagnoses Not on filedocumented in this encounter Care Teams Geotechnical Operating Engineer Relationship Specialty Start Date End Date Ferny Gentile MD [address] [facility] [address] [place] [address] PCP - General 06/11/15 documented as of this encounter
--- OUTSIDE RECORDS SUMMARY | 2025-05-01 09:40 | XMS_ITS | Encounter Summary ---
Author Organization [employer] ([place], [place], [place], [place], [place]) Address [address] [place] [address] Care Team Providers Care Corporate Health Consultant Name Role Phone Ferny Gentile Primary Care Provider [phone] Encounter Details Date Type Department Care Team (Late st Contact Info) Description 12/14/2018 Transcribed Document [facility] [place] [facility] [place] [address] ProviderArt MD [address] [place] [address] Social History Tobacco Use Types Packs/Day [...] Scale Risk Level : 25-45 Medium Risk Gardner Fall Interventions : Adequate lighting, Assistive devices [...] High Risk Interventions : Bed alarm on Gackle, Christopher L, RN - 12/14/2018 10:39 EDT [...] Source : Stated Height Entry Format : [place] Height, Feet : 5 ft(Converted to: 152 cm, 60 Inch) Height, Inches : 7 Inch(Converted to: 0 ft 7 Inch, 17.78 cm) Clinical Height : 170.18 cm Weight Source : Standing scale Weight Entry Format : [place] Clinical Dosing Weight : 90.91 kg Weight, Pounds : 200 lb Body Surface Area (BSA) : 2.02 m2 Body Mass Index : 31.4 kg/m2 (HI) [place] Body Weight : 61 kg Amandeep Martinez [...] EDT Electronically signed by Zach Zamarripa Conversion Training And Development Coordinator Cerner at 08/18/2022 11:16 AM CDT documented in this encounter Plan of Treatment Not on file documented as of this encounter Visit Diagnoses Not on filedocumented in this encounter Care Teams Corporate Health Consultant Relationship Specialty Start Date End Date Ferny Gentile [address] [place] [address] PCP - General 05/22/22 documented as of this encounter
--- OUTSIDE RECORDS SUMMARY | 2025-05-01 09:40 | XMS_ITS | Encounter Summary ---
Author Organization [employer] ([place], [place], [place], [place], [place]) Address [address] [place] [address] Care Team Providers Care Caddymaster Name Role Phone Ferny Gentile Primary Care Provider [phone] Encounter Details Date Type Department Care Team (Late st Contact Info) Description 12/14/2018 Transcribed Document [facility] [place] [facility] [place] [address] ProviderArt MD [address] [place] [address] Social History Tobacco Use Types Packs/Day [...] NIA MARROQUIN, PT - 12/14/2018 11:16 EDT Crimping Machine Operator For Metal Goals Other PT LTG Grid Goal #1 [...] NIA MARROQUIN, PT - 12/14/2018 11:16 EDT Electronically signed by Brina Zamarripa Conversion Logging Operations Inspector Cerner at 08/18/2022 11:14 AM CDT documented in this encounter Plan of Treatment Not on file documented as of this encounter Visit Diagnoses Not on filedocumented in this encounter Care Teams Caddymaster Relationship Specialty Start Date End Date Seferino Ferny [address] [place] [address] PCP - General 05/22/22 documented as of this encounter
--- OUTSIDE RECORDS SUMMARY | 2025-05-01 09:40 | XMS_ITS | Encounter Summary ---
Author Organization [employer] ([place], [place], [place], [place], [place]) Address [address] [place] [address] Care Team Providers Care Study Director Name Role Phone Sakina Gentilet Primary Care Provider [phone] Encounter Details Date Type Department Care Team (Late st Contact Info) Description 12/14/2018 Transcribed Document [facility] [place] [address] ProviderArt MD [address] [place] [address] Social History Tobacco Use Types Packs/Day [...] 12/14/2018 14:52 EDT by NICHOLE ARIZMENDI, Care Management-Vacuum Kettle Cook Final Discharge Planning Discharge Arrangements : Patient Post-Acute Information Patient Name: UZAIR MADERA Gender: Female : 44 Age: 78 Years No Post-Acute Placement(s) Listed No Post-Acute Service(s) Listed No [place] Referral(s) Listed Discharge To Care Management : Home Health Services (Related/SOC within 3 days)-06 NICHOLE ARIZMENDI, Care Management-Vacuum Kettle Cook - 12/14/2018 14:52 EDT Final Narrative Note Final Narrative Note : [facility], PT HAS HER OWN MACHINE TO CHEDK HER INR. SHE IS FOLLOWED BY CARDIOLOGY NICHOLE QUINTERO, Care Management-Vacuum Kettle Cook - 12/14/2018 14:52 EDT documented in this encounter Plan of Treatment Not on file documented as of this encounter Visit Diagnoses Not on filedocumented in this encounter Care Teams Study Director Relationship Specialty Start Date End Date Ferny Gentile [address] [place] [phone] PCP - General 05/22/22 documented as of this encounter
--- OUTSIDE RECORDS SUMMARY | 2025-05-01 09:40 | XMS_ITS | Encounter Summary ---
Author Organization [facility] Address [address] [place] [address] Care Team Providers Care Ornamental Metal Worker Apprentice Name Role Phone Ferny Gentile MD Primary Care Provider [phone] Encounter Details Date Type Department Care Team (Late st Contact Info) Description 04/14/2025 Anticoagulation Visit [facility]ULATION CLINIC [address] [facility] [address] [place] [address] Claudia Bauer, PharmD [address] [place] [address] Social History Tobacco Use Types Packs/Day Years [...] Bauer, PharmD - 04/14/2025 11:50 AM EST [facility] Anticoagulation Clinic Progress Note Patient Demographics Method of INR reporting: ACELIS HOME MONITOR Estimated OOP Cost: Indication: Paroxsymal Atrial Fibrillation (I48.0) Referring Provider Wojciech Flores MD Reason patient is not on a DOAC: Undetermined Goal INR: 2-3 Warfarin Start Date Fall 2014 Reason patient is not on home monitor: [id number]: CHF (1), HTN (1), Age >74 (2), [...] Naranjo Preferred contact number: Alternative contact number(s): [phone] ([employer]) Patient Appropriate for WarfNoCall ? No Preferred [...] questions at this time. Claudia Bauer, PharmD 04/14/2025 11:53 EST documented in this encounter Plan of Treatment Upcoming Encounters Date Type Department Care Team (Late st Contact Info) Description 06/30/2025 11:30 AM EST Office Visit [facility]OLOGY [address] [place] [address] David Bernstein MD 330 [facility] [address] [place], [place] [id number] 10/03/2025 2:45 PM EDT Office Visit [facility] CARDIOLOGY [address] [facility] [address] [place] [address] Yon Govea MD [address] [facility] [address] [place], [place] [id number] 06/14/2026 1:30 PM EST Office Visit [facility] CARDIOLOGY [address] [place] [address] [place] [address] Wojciech Flores MD [address] [facility] [address] [place], [place] [id number] documented as of this encounter Procedures Procedure Name Priority Date/Time Associated Diagnosis Comments PROTIME-INR Routine 04/14/2025 documented in this encounter Results * Protime-INR (04/14/2025) INR 2.20 Blood us Historical Provider LAB BLOOD ORDERABLES Agata l Result documented in this encounter Visit Diagnoses Not on filedocumented in this encounter Care Teams Ornamental Metal Worker Apprentice Relationship Specialty Start Date End Date Ferny Gentile MD [address] [facility] [address] [place] [address] PCP - General 06/11/15 documented as of this encounter
--- OUTSIDE RECORDS SUMMARY | 2025-05-01 09:40 | XMS_ITS | Encounter Summary ---
Author Organization [facility] Address [address] [place] [address] Care Team Providers Care E Commerce Architect Name Role Phone Ferny Gentile MD Primary Care Provider [phone] Encounter Details Date Type Department Care Team (Late st Contact Info) Description 03/24/2025 Anticoagulation Visit [facility]TICO[facility]ULATION CLINIC [address] [facility] [address] [place] [address] Claudia Bauer, PharmD [address] [place] [address] Social History Tobacco Use Types Packs/Day Years [...] of this encounter Progress Notes * Claudia aBuer, PharmD - 03/24/2025 1:16 PM EST [facility] Anticoagulation Clinic Progress Note Patient Demographics Method of INR reporting: ACELIS HOME MONITOR Estimated OOP Cost: Indication: Paroxsymal Atrial Fibrillation (I48.0) Referring Provider Wojciech Flores MD Reason patient is not on a DOAC: Undetermined Goal INR: 2-3 Warfarin Start Date Fall 2014 Reason patient is not on home monitor: [id number]: CHF (1), HTN (1), Age >74 (2), [...] Naranjo Preferred contact number: Alternative contact number(s): [phone] ([employer]) Patient Appropriate for WarfNoCall ? [...] questions at this time. Claudia Bauer PharmD 03/24/2025 13:25 EST documented in this encounter Plan of Treatment Upcoming Encounters Date Type Department Care Team (Late st Contact Info) Description 06/30/2025 11:30 AM EST Office Visit [facility] RHEUMATOLOGY [address] [facility] [address] [place] [phone] David Bernstein MD 330 [facility] [address] [place] [address] 10/03/2025 2:45 PM EDT Office Visit [facility] CARDIOLOGY [address] [facility] [address] [place] [address] Yon Govea MD [address] [facility] [address] [place], [place] [id number] 06/14/2026 1:30 PM EST Office Visit [facility] CARDIOLOGY [address] [place] [address] [place] [address] Wojciech Flores MD [address] [facility] [address] [place], [place] [id number] documented as of this encounter Procedures Procedure Name Priority Date/Time Associated Diagnosis Comments PROTIME-INR Routine 03/24/2025 documented in this encounter Results * Protime-INR (03/24/2025) INR 2.40 Blood us Historical Provider LAB BLOOD ORDERABLES Agata l Result documented in this encounter Visit Diagnoses Not on filedocumented in this encounter Care Teams E Commerce Architect Relationship Specialty Start Date End Date Ferny Gentile MD [address] [facility] [address] [place] [address] PCP - General 06/11/15 documented as of this encounter
--- OUTSIDE RECORDS SUMMARY | 2025-05-01 09:40 | XMS_ITS | Encounter Summary ---
Author Organization [employer] ([place], [place], [place], [place], [place]) Address [address] [place] [address] Care Team Providers Care Real Estate Appraiser Supervisor Name Role Phone Ferny Gentile Primary Care Provider [phone] Encounter Details Date Type Department Care Team (Late st Contact Info) Description 12/15/2018 Transcribed Document [facility] [place] [facility] [place] [address] ProviderArt MD [address] [place] [address] Social History Tobacco Use Types Packs/Day [...] Historical ProviderMD - 12/15/2018 2:00 AM CDT Stretcher Leveler Operator Details Entered On: 12/15/2018 1:35 EDT Performed [...] in this encounter Care Teams Real Estate Appraiser Supervisor Relationship Specialty Start Date End Date Ferny Gentile [address] [place] [address] PCP - General 05/22/22 documented as of this encounter
--- OUTSIDE RECORDS SUMMARY | 2025-05-01 09:40 | XMS_ITS | Clinical Summary ---
Author Organization [facility] , [facility] Address [address] [place] [address] Phone Care Team Providers Care Evp Sales Name Role Phone MARIAMA MORALEZ, FATOUMATA Blanco Primary Care Provider [phone] Camila MORALEZ, Alanna Bowen Unavailable [phone] Reason for Referral 07/07/2022 Encounter for Post Op Date Recorded Target Due Date Referral Type Referring Prov ider Reason For Referral 07/07/2022 Hernan Gold PA-C referr al to physician Last Documented On 3 11:07AM ; [facility], [facility] Reason for Visit and Chief Complaint The Chief Complaint is: POV Left TKA Problems Includes: Problems addressed during this encounter and other active Problems All Visits Onset Date Date of Diagnosis Resolved Date Provider Condition Status Joint Pain Wrist Right 04/17/2022 04/17/2022 Ceci Santos APRN Active Last Documented On 5 1:41AM ; [facility], [facility] Joint Pain Right Thumb 04/17/2022 04/17/2022 Ceci Santos APRN Active Last Documented On 5 1:41AM ; [facility], [facility] Midback Pain 10/17/2020 10/17/2020 Brandon Wilks MD Active Last Documented On 5 1:40AM ; [facility], [facility] Joint Pain Left Knee 02/16/2020 02/16/2020 Marianela Cuevas MD Active Last Documented On 5 1:40AM ; [facility], [facility] Joint Pain Right Knee 10/29/2016 10/29/2016 Oneyda Jensen MD Active Last Documented On 5 1:38AM ; [facility], [facility] Pain in Lumbar Spine 03/13/2016 03/13/2016 James Jensen MD Active Last Documented On 5 1:38AM ; [facility], [facility] Joint Pain Hip Left 03/13/2016 03/13/2016 Alanna Jensen MD Active Last Documented On 5 1:38AM ; [facility], [facility] Joint Pain Knee 03/10/2012 03/10/2012 Alanna lopes MD Active Last Documented On 5 1:37AM ; [facility], [facility] Plan of Treatment Fall Risk Assessment: This [...] - Last Documented On 07/07/2022 1:06PM ; [facility], [facility] overall the patient is very pleased with her knee surgery, she has some bilateral lower extremity edema that she reports as being lymphedema diagnosis in the past. Happy to give PT prescription today to help with lymphedema modalities. We will plan for follow-up 4-6 weeks for 3 month interval exam - Last Documented On 07/07/2022 1:06PM ; [facility], [facility] Pending Tests Order Diagnosis Results Due Ordering P rovider Therapy - Physical Therapy Knee 07/07/22 Hernan Gold PA-C Last Documented On 3 11:47AM ; [facility], [facility] Instructions to patient Lose weight Last Documented On 3 11:07AM ; [facility], [facility] Assessments Includes: Assessments from this encounter Findings seven-week status post left TKA - Last Documented On 07/07/2022 1:06PM ; [facility], [facility] Instructions Includes: Instructions from this encounter Instructions to patient Lose weight Last Documented On 3 11:07AM ; [facility] Medical Equipment - Implanted Devices Includes: Current Devices No Medical Equipment Recorded Medications Includes: Medications discussed during this encounter and other current Medications Current Medications (continue as prescribed) Colestipol HCl 5 GM Oral Packet 04/14/2024 Provider: Diagnosis: Last Documented On 4 11:25AM By Carla Hall ; [facility] Protonix 20 MG Oral Tablet Delayed Release 06/16/2022 Provider: Diagnosis: Last Documented On 3 4:00PM By Elif Chicas ; [facility], [facility] Flecainide Acetate 100 MG Oral Tablet 06/16/2022 Pro vider: Diagnosis: Last Documented On 3 4:01PM By Elif Chicas ; [facility], [facility] Metoprolol Succinate ER 25 M G Oral Tablet Extended Release 24 Hour 06/12/2022 Provider: Diagnosis: Last Documented On 3 4:00PM By Elif Chicas ; [facility], [facility] predniSONE 10 MG Oral Tablet 05/02/2022 Provider: FATOUMATA LESLIE MD Diagnosis: Last Documented On 3 4:00PM By Elif Chicas ; [facility], [facility] Lagevrio 200 MG Oral Capsule 04/22/2022 Provider: FATOUMATA LESLIE MD Diagnosis: Last Documented On 3 4:00PM By Elif Chicas ; [facility], [facility] Lagevrio 200 MG Oral Capsule 04/22/2022 Provider: FATOUMATA LESLIE MD Diagnosis: Last Documented On 3 4:00PM By Elif Chicas ; [facility], [facility] Mupirocin 2% External Ointment 04/16/2022 Provider: Eliseo Cuevas MD Diagnosis: three times a day Apply to n ostrils 3 time a day 5 days prior to surgery. Last Documented On 2 2:50PM By Gilda Kamara ; [facility], [facility] MegaRed Humble-3 Krill Oil 350 MG Oral Capsule 10/26/19 21 Provider: Diagnosis: Last Documented On 1 1:15PM By Betzaida Donald ; [facility], [facility] Sudafed 30 MG Oral Tablet 10/25/2020 Provider: Diagnosis: Last Documented On 1 1:15PM By Betzaida Donald ; [facility], [facility] Mucinex Allergy 180 MG Oral Tablet 10/25/2020 Provid er: Diagnosis: Last Documented On 1 1:14PM By Betzaida Donald ; [facility], [facility] Warfarin Sodium 7.5 MG Oral Tablet 10/17/2020 Provid er: Diagnosis: Last Documented On 1 2:43PM By Greer Kingston ; [facility], [facility] Ezetimibe 10 MG Oral Tablet 09/11/2020 Provider: FATOUMATA LESLIE MD Diagnosis: Last Documented On 1 1:13PM By Betzaida Donald ; [facility], [facility] Digoxin 125 MCG Oral Tablet 07/21/2020 Provider: Diagnosis: Last Documented On 1 2:44PM By Greer Kingston ; [facility], [facility] CoQ-10 10 MG Oral Capsule 10/20/2019 Provider: Diagnosis: Last Documented On 0 4:01PM By Greer Kingston ; [facility], [facility] D3-1000 25 MCG (1000 UT) Oral Capsule 10/20/2019 Pro vider: Diagnosis: Last Documented On 0 4:00PM By Greer Kingston ; [facility], [facility] Omeprazole 20 MG Oral Ta blet Delayed Release Disintegrating 10/20/2019 Provider: Diagnosis: Last Documented On 0 3:59PM By Greer Kingston ; [facility], [facility] Probiotic Maximum Strength Oral Capsule 10/20/2019 Provider: Diagnosis: Last Documented On 0 3:58PM By Greer Kingston ; [facility], [facility] Citalopram Hydrobromide 10 MG Oral Tablet 10/20/2019 Provider: Diagnosis: Last Documented On 0 3:56PM By Greer Kingston ; [facility], [facility] Flecainide Acetate 100 MG Oral Tablet 10/20/2019 Pro vider: Diagnosis: Last Documented On 0 3:55PM By Greer Kingston ; [facility], [facility] Past Medications on file oxyCODONE HCl 5 MG Oral Tablet 05/29/2022 - 06/03/2022 Provider: Eliseo ceja MD Diagnosis: 1-2 po q 4-6h Last Documented On 3 12:32PM By Hima Cuevas ; [facility] traMADol HCl 50 MG Oral Tablet 05/29/2022 - 06/03/2022 Provider: Eliseo ceja MD Diagnosis: 1-2 po q 4-6h Last Documented On 3 12:32PM By Hima Cuevas ; [facility] Lovenox 40 MG/0.4ML Injection Solution Prefilled Syringe 05/26/2022 - 05/30/2022 Provider: Eliseo ceja MD Diagnosis: 1 sub q injection 1 time day Last Documented On 3 8:35AM By Hima Cuevas ; [facility] Cefadroxil 500 MG Oral Capsule 05/21/2022 - 05/24/2022 Provider: Eliseo ceja MD Diagnosis: twice a day Last Documented On 3 12:08PM By Hima Cuevas ; [facility] Colace 100 MG Oral Capsule 05/21/2022 - 08/19/2022 Provider: Eliseo ceja MD Diagnosis: 1-2 tabs daily Last Documented On 3 12:08PM By Hima Cuevas ; [facility] traMADol HCl 50 MG Oral Tablet 05/21/2022 - 05/26/2022 Provider: Eliseo ceja MD Diagnosis: 1-2 po q 4-6h Last Documented On 3 12:08PM By Hima Cuevas ; [facility] Acetaminophen 500 MG Oral Tablet 05/21/2022 - 06/20/2022 Provider: Eliseo Cuevas MD Diagnosis: 2 three times a day Last Documented On 3 12:08PM By Hima Cuevas ; [facility] oxyCODONE HCl 5 MG Oral Tablet 05/21/2022 - 05/26/2022 Provider: Eliseo ceja MD Diagnosis: 1-2 po q 4-6h Last Documented On 3 12:08PM By Hima Cuevas ; [facility] Ondansetron HCl 4 MG Oral Tablet 05/21/2022 - 05/26/2022 Provider: Eliseo Cuevas MD Diagnosis: [id number] Last Documented On 3 12:08PM By Hima Cuevas ; [facility] Meloxicam 15 MG Oral Tablet 05/21/2022 - 06/20/2022 Provider: Eliseo ceja MD Diagnosis: once a day Last Documented On 3 12:08PM By Hima Cuevas ; [facility] HYDROcodone-Acetaminophen 7. 5-325 MG Oral Tablet 10/25/2020 - 11/14/2020 Provider: Brandon Wilks MD Diagnosis: twice a day Last Documented On 1 12:08PM By Dr. Wilks ; [facility] [place] 5-325MG Oral Tablet 12/23/2018 - 01/22/2019 Provider: [...] Gutierrez ; [facility] traMADol HCl 50MG Oral Tablet 12/08/2018 - 12/13/2018 Provider: Eliseo ceja MD Diagnosis: 1-2 po q6h prn pain FOR BACON RGERY DO NOT FILL UNTIL 12/14/18 Last Documented On 9 4:06PM By Reanna Gutierrez ; [facility] Neurontin 300MG Oral Capsule 12/08/2018 - 03/08/2019 Provider: Eliseo ceja MD Diagnosis: 1 every bedtime FOR SURGER Y DO NOT FILL UNTIL 12/14/18 Last Documented On 9 4:05PM By Reanna Gutierrez ; [facility] Dilaudid 2MG Oral Tablet 12/08/2018 - 12/10/2018 Provi gaby: Eliseo Cuevas MD Diagnosis: 1-2 po q6h prn pain (RESCUE PAIN) FOR SURGERY DO NOT FILL UNTIL 12/14/18 Last Documented On 9 4:05PM By Reanna Gutierrez ; [facility] Colace 100MG Oral Capsule 12/08/2018 - 03/08/2019 Provider: Eliseo ceja MD Diagnosis: 1-2 tabs daily FOR SURGERY DO NOT FILL UNTIL 12/14/18 Last Documented On 9 4:10PM By Reanna Gutierrez ; [facility] Mupirocin 2% External Ointment 11/09/2018 - 11/14/2018 Provider: Eliseo ceja MD Diagnosis: Apply to nostrils 3 time a d ay 5 days prior to surgery. Last Documented On 9 10:40AM By Gilda Kamara ; [facility] [place] 5-325MG Oral Tablet 12/24/2017 - 12/31/2017 Prov ider: Brandon Wilks MD Diagnosis: 1-2 po q 4-6h PRN Last Documented On 8 5:31PM By Dr. Wilks ; [facility] [place] 7.5-325 MG OR TABS 12/24/2017 - 01/03/2018 Provi gaby: Brandon Wilks MD Diagnosis: Last Documented On 8 11:35AM By Marcelle Croft ; [facility] Voltaren Gel 1% External 10/14/2017 - 12/13/2017 Provi gaby: Alanna Jensen MD Diagnosis: use as directed Last Documented On 8 10:09AM By Sayra Evans ; [facility] Lovenox 40MG/0.4ML Subcutaneous Solution 05/06/2017 - 05/26/2017 Provider: Alanna castaneda MD Diagnosis: use as directed/1 INJECTION PER DAY FOR 5 DAYS PRIOR TO PROCEDER & 1 INJECTION PER DAY FOR 5 DAYS AFTER PROCERDER/ Last Documented On 8 4:29PM By Sayra Evans ; [facility] [place] 5-325 MG Tablet 10/29/2016 - 11/05/2016 Provider : Alanna Jensen MD Diagnosis: 1-2 po q 4-6h PRN Last Documented On 7 11:55AM By Camryn Paez ; [facility], [facility] Medrol 4 MG Tablet Therapy Pack 02/14/2016 - 02/20/2016 Provider: Alanna chin MD Diagnosis: use as directed by pharmacy Last Documented On 6 3:16PM By Heather Langley ; [facility], [facility] [place] 5-325 MG Tablet 12/03/2015 - 12/18/2015 Provider : Alanna Jensen MD Diagnosis: 1-2 po q 4-6h Last Documented On 6 1:26PM By Heather Langley ; [facility], [facility] [place] 7.5-325 MG Tablet 11/16/2015 - 12/16/2015 Provid er: Alanna Jensen MD Diagnosis: 1 every 4 - 6 hours PO PRN Last Documented On 6 2:09PM By Lani Marquez ; [facility], [facility] Voltaren 1% TD GEL 01/31/2013 - 03/02/2013 Provider: Alanna Jensen MD Diagnosis: DEGENERATIVE MIKEY NT DISEASE KNEE apply 4 grams to affected ar ea 4 times a day//ks Last Documented On 3 2:16PM By Ann Marie Sutherland ; [facility], [facility] Lortab 10-500 MG OR TABS 09/14/2012 - 09/21/2012 Provi gaby: Alanna Jensen MD Diagnosis: [phone] [facility] jsb/df Last Documented On 3 8:56AM By Jose F Gutierrez ; [facility] Lortab 10-500 MG OR TABS 08/06/2012 - 08/13/2012 Provi gaby: Alanna eJnsen MD Diagnosis: [phone] [facility] jsb/df Last Documented On 3 1:59PM By Jose F Gutierrez ; [facility] Lortab 10-500 MG OR TABS 07/09/2012 - 07/16/2012 Provi gaby: Alanna Jensen MD Diagnosis: [phone] [facility] jsb Last Documented On 3 12:36PM By Jose F Gutierrez ; [facility] Lortab 10-500 MG OR TABS 07/01/2012 - 07/08/2012 Provi gaby: Alanna Jensen MD Diagnosis: [phone] clarat df Last Documented On 3 1:53PM By Jose F Gutierrez ; [facility] Xarelto 10 MG OR TABS 06/14/2012 - 07/05/2012 Provider : Alanna Jensen MD Diagnosis: sx on 06-15-12 Last Documented On 3 1:31PM By Danielle Dobson ; [facility] Lortab 10-500 MG OR TABS 06/14/2012 - 06/21/2012 Provi gaby: Alanna Jensen MD Diagnosis: sx on 06-15-12 Last Documented On 3 1:31PM By Danielle Dobson ; [facility] Medications Administered Includes: Administered Medications [...] 04/14/2024 Last Documented On 3 11:07AM ; [facility] Alcohol use 10/25/2020 Last Documented On 3 11:07AM ; [facility] Not using drugs 10/25/2020 Last Documented On 3 11:07AM ; [facility] Recent change in diet 10/25/2020 Last Documented On 3 11:07AM ; [facility], [facility] Non-smoker 10/17/2020 Last Documented On 3 11:07AM ; [facility], [facility] No caffeine use 10/17/2020 Last Documented On 3 11:07AM ; [facility], [facility] Not a current smoker. 10/17/2020 Last Documented On 3 11:07AM ; [facility], [facility] No tobacco use 10/31/2019 Last Documented On 3 11:07AM ; [facility], [facility] Not a current smoker 10/31/2019 Last Documented On 3 11:07AM ; [facility], [facility] Not exercising regularly 10/31/2019 Last Documented On 3 11:07AM ; [facility], [facility] Smoking status : Never smoker 10/31/2019 Last Documented On 3 11:07AM ; [facility], [facility] Sex - Female 09/12/2024 Last Documented On 5 9:46AM ; [facility], [facility] Procedures and Surgical History Includes: Procedures from this encounter Procedures Code Diagnosis Performing Provider Service L ocation Service Date use of tobacco assessment performed 1000F Last Documented On 3 11:07AM ; [facility], [facility] patient screened for future fall risk: documentation of any fall with injury in past year 1100F Last Documented On 3 11:07AM ; [facility], [facility] follow-up visit in one month Last Documented On 3 11:07AM ; [facility], [facility] referral to physician Last Documented On 3 11:07AM ; [facility], [facility] an X-ray was performed 52398 Last Documented On 3 11:07AM ; [facility], [facility] Surgical History Last Updated History of back surgery 11/2019-Kypho T1 2 10/17/2020 Last Documented On 3 11:07AM ; [facility] History of heart surgery ablation 2017 0 10/31/2019 Last Documented On 3 11:07AM ; [facility], [facility] History of total hip replacement left hi p 201810/31/2019 Last Documented On 3 11:07AM ; [facility], [facility] History of total knee arthroplasty right knee 201210/31/2019 Last Documented On 3 11:07AM ; [facility], [facility] History of hysterectomy 10/16/2014 Last Documented On 3 11:07AM ; [facility], [facility] Medical History Includes: Medical History addressed during this encounter Description Last Updated Recent immunization for flu 02/01/2022 1 06/15/2023 Last Documented On 3 11:07AM ; [facility], [facility] Recent immunization for pneumococcal pne umonia 201304/14/2024 Last Documented On 3 11:07AM ; [facility], [facility] History of Irregular Heartbeat A-fib; ep isode after TKA- cadiovert needed 06/16/2022 Last Documented On 3 11:07AM ; [facility], [facility] blood transfusions 10/25/2020 Last Documented On 3 11:07AM ; [facility], [facility] Arthritis 10/25/2020 Last Documented On 3 11:07AM ; [facility], [facility] Heartburn / Acid Reflux 10/25/2020 Last Documented On 3 11:07AM ; [facility], [facility] History of Blood Clots 10/25/2020 Last Documented On 3 11:07AM ; [facility], [facility] History of Blood Transfusion 10/25/2020 Last Documented On 3 11:07AM ; [facility], [facility] History of Cancer 10/25/2020 Last Documented On 3 11:07AM ; [facility], [facility] History of Fractures 10/25/2020 Last Documented On 3 11:07AM ; [facility], [facility] History of heart disease 10/25/2020 Last Documented On 3 11:07AM ; [facility], [facility] Hypertension 10/25/2020 Last Documented On 3 11:07AM ; [facility], [facility] Irregular Heartbeat 10/25/2020 Last Documented On 3 11:07AM ; [facility], [facility] Past Surgical History: wrist repair ~hand sx ~gallstone sx 2011 ~mastectomy and reconstruction ~colonoscopy 201710/25/2020 Last Documented On 3 11:07AM ; [facility], [facility] Previous Fractures 10/25/2020 Last Documented On 3 11:07AM ; [facility], [facility] Sleep Apnea 10/25/2020 Last Documented On 3 11:07AM ; [facility], [facility] Use of CPAP 10/25/2020 Last Documented On 3 11:07AM ; [facility] Back surgery 12/15/2017 L4-5 Posterior Decompression and Fusion @ E ~11/07/2019 T12 Kyphyoplasty 10/25/2020 Last Documented On 3 11:07AM ; [facility], [facility] Heart surgery pacemaker 12/2019 ~Afib ab lation 10/25/2020 Last Documented On 3 11:07AM ; [facility], [facility] History of Gallbladder 10/25/2020 Last Documented On 3 11:07AM ; [facility] Hysterectomy 10/25/2020 Last Documented On 3 11:07AM ; [facility] Total hip replacement 12/2018-Left hip 0 10/17/2020 Last Documented On 3 11:07AM ; [facility] A previous fracture 10/31/2019 Last Documented On 3 11:07AM ; [facility] Gallbladder disease 2018 10/31/2019 Last Documented On 3 11:07AM ; [facility], [facility] History of diverticulitis of colon 11/15 Last Documented On 3 11:07AM ; [facility], [facility] History of osteoporosis 11/16/2015 Last Documented On 3 11:07AM ; [facility], [facility] A history of cancer 10/16/2014 Last Documented On 3 11:07AM ; [facility], [facility] Arthritic joint problems 10/16/2014 Last Documented On 3 11:07AM ; [facility], [facility] Family History Includes: Family History addressed during this encounter Description Last Updated Family history of cancer mother ~father 11/16/2015 Last Documented On 3 11:07AM ; [facility] Family history of diabetes mellitus moth er 11/16/2015 Last Documented On 3 11:07AM ; [facility] Family history of heart disease mother ~ father 11/16/2015 Last Documented On 3 11:07AM ; [facility] Family history of hypertension mother ~f ather 11/16/2015 Last Documented On 3 11:07AM ; [facility] Family history of osteoporosis mother Last Documented On 3 11:07AM ; [facility] Family history of rheumatoid arthritis m other 11/16/2015 Last Documented On 3 11:07AM ; [facility] Family history of thromboembolic disease mother 11/16/2015 Last Documented On 3 11:07AM ; [facility], [facility] Maternal history of hypertension 015 Last Documented On 3 11:07AM ; [facility], [facility] Maternal history of osteoporosis 015 Last Documented On 3 11:07AM ; [facility], [facility] Review of Systems Includes: [...] Description No anxiety Last Documented On 3 11:07AM ; [facility], [facility] Physical Exam Includes: Physical Exam from this encounter Allergies Includes: Active Allergies Substance Type Reaction Onset Date Resolved Date Statu s Sulfa Antibiotics Allergy 06/09/2017 A ctive Last Documented On 4 12:09PM ; [facility] Statins Support Allergy 06/09/2017 Act citlalli Last Documented On 4 12:09PM ; [facility] Percocet Allergy 03/10/2012 Active Last Documented On 4 12:09PM ; [facility] Bactrim Allergy 11/16/2015 Active Last Documented On 4 12:09PM ; [facility] Care Evp Sales Name (Identifier) Role/Relation Location/Telecom Last Documented By FATOUMATA LESLIE MD ([id number]) Primary care physician (occupation) [address] [place] [address], [address], [facility], [address] tel:[phone] Last Documented On 09/12/2024 9:46AM ; [facility] Alanna Jensen MD ([id number]) Assigned practitioner (occupation) tel:[phone] Last Documented On 09/12/2024 9:46AM ; [facility], [facility] Encounters Encounter Provider Location (Healthcare Service Location) Date Check-In Time Check-Out Time Diagnosis Encounter Disposition Post Op Hernan Gold PA-C [facility] 2022 11:12AM 11:46AM Payer Includes: Active Insurance Policies Plan Name (Payer ID) Coverage Type Member ID Group # Subscriber (ID) Relationship Effective Dates 1 - Medicare Part B [facility] ([id number]) [id number] Luz Skaggs Self 04/03/2007 - Unknown Last Documented On 9 10:11AM ; [facility] - [employer] [place] ([id number] [id number] PLAN Kit Skaggs Self 05/04/19 12 - Unknown Last Documented On 3 7:45AM ; [facility] [facility] Clinical Notes Includes: Clinical Notes from this encounter * Progress note Date Encounter Last Documented by 07/07/2022 Post Op Last documented on 07/07/2022; 1:06 PM, Hernan Gold PA-C; [facility] Active [...] directed 0 days, 0 refills - Ipratropium Ada 0.03% Nasal Solution take as directed 0 days, 0 refills - Lagevrio 200 MG Oral Capsule 5 days, 0 refills - Lagevrio 200 MG Oral Capsule 5 days, 0 refills - MegaRed Hum[place]-3 Krill Oil 350 MG Oral Capsule once [...] refills - Sudafed 30 MG Oral Tablet [id number] 0 days, 0 refills - Warfarin Sodium [...] – [place] 11/07/2019 T12 Kyphyoplasty - Back surgery [...] Care Team - FATOUMATA LESLIE MD - FILM EDITOR
--- OUTSIDE RECORDS SUMMARY | 2025-05-01 09:40 | XMS_ITS | Encounter Summary ---
Author Organization [employer] ([place], [place], [place], [place], [place]) Address [address] [place] [address] Care Team Providers Care Communication Spec Name Role Phone Ferny Gentile Primary Care Provider Encounter Details Date Type Department Care Team (Late st Contact Info) Description 12/14/2018 Transcribed Document [facility] [place] [facility] [place] [address] ProviderArt MD [address] [place] [address] Social History Tobacco Use Types Packs/Day [...] Place : Fall prevention measures SAFIA BURGOS [facility] - 12/15/2018 12:46 EDT General Status [...] Established w Patient : Yes SAFIA BURGOS [facility] 12/15/2018 12:46 EDT 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 [place] PT Charges PT Therap. Exercise 15 min : 2 Gait Training Each 15 Min : 1 CHARLENE BURGOSBARBIE WATSON - 12/15/2018 12:46 EDT documented in this encounter Plan of Treatment Not on file documented as of this encounter Visit Diagnoses Not on filedocumented in this encounter Care Teams Communication Spec Relationship Specialty Start Date End Date Seferino Ferny [facility] [place] [address] PCP - General 05/22/22 documented as of this encounter
--- OUTSIDE RECORDS SUMMARY | 2025-05-01 09:40 | XMS_ITS | Encounter Summary ---
[facility] Organization [facility] Address [address] [place] [address] Care Team Providers Care Grain Shipper Name Role Phone Ferny Gentile MD Primary Care Provider [phone] Encounter Details Date Type Department Care Team (Late st Contact Info) Description 03/14/2025 Telephone [facility] [address] [place] [address] [place] [phone] Karen Mace, Coverer Social History Tobacco Use Types Packs/Day Years [...] Notes * Telephone Encounter - Karen Mace, Coverer - 03/14/2025 10:13 AM EST Received a voicemail from [employer] requesting a new prescription form be sent in, naveene patient reports she is switching providers. Attempted to call patient to confirm. ULVM. Karen Mace CPhT, RPhT 10:13 EST 03/14/2025 documented in this encounter Plan of Treatment Upcoming Encounters Date Type Department Care Team (Late st Contact Info) Description 06/30/2025 11:30 AM EST Office Visit [facility] [address] [address] David Bernstein MD [address] [facility] [address] [place] [address] 10/03/2025 2:45 PM EDT Office Visit [facility] [address] [facility] [address] [place] [address] Yon Govea MD [address] [facility] [address] [place] [address] 06/14/2026 1:30 PM EST Office Visit [facility] [address] [place] [address] [place] [address] Wojciech Flores MD [address] [facility] [address] [place], [place] [id number] documented as of this encounter Visit Diagnoses Not on filedocumented in this encounter Care Teams Grain Shipper Relationship Specialty Start Date End Date Ferny Gentile MD [address] [facility] [address] [place] [address] PCP - General 06/11/15 documented as of this encounter
--- OUTSIDE RECORDS SUMMARY | 2025-05-01 09:40 | XMS_ITS | Encounter Summary ---
Author Organization [facility] Address [address] [place] [address] Care Team Providers Care Human Resources Support Specialist Name Role Phone Ferny Gentile MD Primary Care Provider [phone] Encounter Details Date Type Department Care Team (Late st Contact Info) Description 03/14/2025 Anticoagulation Visit [facility] [address] [facility] [address] [place] [address] Claudia Bauer, PharmD [address] [place] [address] Social History Tobacco Use Types Packs/Day Years [...] Bauer, PharmD - 03/14/2025 10:43 AM EST [facility] Progress Note Patient Demographics Method of INR reporting: ACELIS HOME MONITOR Estimated OOP Cost: Indication: Paroxsymal Atrial Fibrillation (I48.0) Referring Provider Wojciech Flores MD Reason patient is not on a DOAC: Undetermined Goal INR: 2-3 Warfarin Start Date Fall 2014 Reason patient is not on home monitor: [id number]: CHF (1), HTN (1), Age >74 (2), [...] Naranjo Preferred contact number: Alternative contact number(s): [phone] (E[employer] Mobile) Patient Appropriate for WarfNoCall ? [...] questions at this time. Claudia Bauer, Garret 03/14/2025 10:44 EST documented in this encounter Plan of Treatment Upcoming Encounters Date Type Department Care Team (Late st Contact Info) Description 06/30/2025 11:30 AM EST Office Visit [facility] RHEUM[facility] [address] [place] [phone] David Bernstein MD [address] [place], [place] [phone] 10/03/2025 2:45 PM EDT Office Visit [facility] [address] [facility] [address] [place] [address] Yon Govea MD [address] [facility] [address] [place], [place] [id number] 06/14/2026 1:30 PM EST Office Visit [facility] [address] [place] [address] [place] [address] Wojciech Flores MD [address] [facility] [address] [place], [place] [id number] documented as of this encounter Procedures Procedure Name Priority Date/Time Associated Diagnosis Comments PROTIME-INR Routine 03/14/2025 documented in this encounter Results * Protime-INR (03/14/2025) INR 1.70 Blood us Historical Provider LAB BLOOD ORDERABLES Agata l Result documented in this encounter Visit Diagnoses Not on filedocumented in this encounter Care Teams Human Resources Support Specialist Relationship Specialty Start Date End Date Ferny Gentile MD [address] [facility] [address] [place] [address] PCP - General 06/11/15 documented as of this encounter
--- OUTSIDE RECORDS SUMMARY | 2025-05-01 09:40 | XMS_ITS | Encounter Summary ---
Author Organization [employer] ([place], [place], [place], [place], [place]) Address [address] [place] [address] Care Team Providers Care Director Community Center Name Role Phone Seferino Ferny Primary Care Provider [phone] Encounter Details Date Type Department Care Team (Late st Contact Info) Description 12/02/2018 Transcribed Document [facility] [place] Medicine [facility] [place] [address] ProviderArt MD [address] [place] [address] Social History Tobacco Use Types Packs/Day [...] Source : Stated Height Entry Format : Cable Height, Feet : 5 ft(Converted to: 152 cm, 60 Inch) Height, Inches : 7 Inch(Converted to: 0 ft 7 Inch, 17.78 cm) Clinical Height : 170.18 cm Weight Source : Standing scale Weight Entry Format : Cable Clinical Dosing Weight : 90.91 kg Weight, Pounds : 200 lb Body Surface Area (BSA) : 2.02 m2 Body Mass Index : 31.4 kg/m2 (HI) [place] Body Weight : 61 kg CINDY DAVID [...] #2 Relationship : - Primary Language : Micronesian Communication Barrier : None CINDY DAVID RN [...] - 12/02/2018 11:37 EDT Electronically signed by [facility], [facility] Conversion Typesetting Machine Operator/Tender Cerner at 08/18/2022 11:25 AM CDT documented in this encounter Plan of Treatment Not on file documented as of this encounter Visit Diagnoses Not on filedocumented in this encounter Care Teams Director Community Center Relationship Specialty Start Date End Date Ferny Gentile [address] [place] [address] PCP - General 05/22/22 documented as of this encounter
--- OUTSIDE RECORDS SUMMARY | 2025-05-01 09:40 | XMS_ITS | Encounter Summary ---
Author Organization [employer] ([place], [place], [place], [place], [place]) Address [address] [place] [address] Care Team Providers Care High Value Associate Name Role Phone Douglas Gentileght Primary Care Provider [phone] Encounter Details Date Type Department Care Team (Late st Contact Info) Description 12/14/2018 Transcribed Document [facility] [place] [facility] [place] [address] ProviderArt MD [address] [place] [address] Social History Tobacco Use Types Packs/Day [...] 12/14/2018 14:52 EDT by NICHOLE ARIZMENDI Care Management-Marketing And Communications Officer Initial Assessment I Previously Documented Living Environment : No qualifying data available. Living Situation : Home Patient Lives With : Alone Emergency Contact #1 : Jesi Emergency Contact #1 Emergency Contact #1 Relationship : daughter Emergency Contact #2 : - Emergency Contact #2 Phone Number : - Emergency Contact #2 Relationship : - NICHOLE ARIZMENDI Care Management-Marketing And Communications Officer - 12/14/2018 14:52 EDT Initial Assessment II Sensory and Motor Deficits : Other: RADHA Current Home Treatments and Equipment : Bedside commode, NICHOLE Martinez, Care Management-Marketing And Communications Officer - 12/14/2018 14:52 EDT Discharge Needs I Anticipated Discharge Date : 12/15/2018 EDT Anticipated Discharge To, CM : Home with home health Current Home Treatment/Equipment : Current Home Treatment/Equipment No qualifying data available. NICHOLE ARIZMENDI Care Management-Marketing And Communications Officer - 12/14/2018 14:52 EDT Discharge Needs II Professional Skilled Services : Professional Skilled Services No qualifying data available. Services and Community Resources : Home Health Discharge Options Discussed with Patient : Home Health NICHOLE ARIZMENDI Care Management-Marketing And Communications Officer - 12/14/2018 14:52 EDT documented in this encounter Plan of Treatment Not on file documented as of this encounter Visit Diagnoses Not on filedocumented in this encounter Care Teams High Value Associate Relationship Specialty Start Date End Date Ferny Gentile [address] [place] [address] PCP - General 05/22/22 documented as of this encounter
--- OUTSIDE RECORDS SUMMARY | 2025-05-01 09:41 | XMS_ITS | Encounter Summary ---
Author Organization [employer] ([place], [place], [place], [place], [place]) Address [address] [place] [address] Care Team Providers Care Manufacturers Representative Name Role Phone Ferny Gentile Primary Care Provider [phone] Encounter Details Date Type Department Care Team (Late st Contact Info) Description 12/14/2018 Transcribed Document [facility] [place] [facility] [place] [address] ProviderArt MD [address] [place] [address] Social History Tobacco Use Types Packs/Day [...] Yes Outside Railing Position : Bilateral LOKI BLANOTN OTR/Buck - 12/14/2018 11:16 EDT Prior LOF [...] LOKI BLANTON OTR/Buck - 12/14/2018 11:16 EDT Fpc Goals, OT Other LTG Grid Goal #1 [...] 12/14/2018 11:16 EDT Electronically signed by Marilou [facility] Conversion Health Promotion Officer Cerner at 08/18/2022 11:12 AM CDT documented in this encounter Plan of Treatment Not on file documented as of this encounter Visit Diagnoses Not on filedocumented in this encounter Care Teams Manufacturers Representative Relationship Specialty Start Date End Date Ferny Gentile [address] [place] [address] PCP - General 05/22/22 documented as of this encounter
== END 2025-04-29 23:59 | disposition home or self-care (01) ==
LOC: LAB.DROPOF 05-01 09:27
PROVIDERS: PCP Internal Medicine; Visit Provider Student in an Organized Health Care Education/Training Program
DX: R50.9 Fever, unspecified (principal)
CPT/HCPCS: 87636